=== PATIENT | male | born 1945 | race Caucasian/White ===

== ENCOUNTER 2023-04-20 12:05 | Emergency (ER) | payer MEDICARE, OTHER, SELFPAY ==
[2023-04-20] VITALS (23 sets, daily range): BP systolic 146–168; BP diastolic 86–102; PULSE 74–84; RESP 15–29; TEMP 36.6; O2SAT 88–99; BMI 30.1
--- NOTE | 2023-04-20 12:35 | XR_ITS ---
The [address] [address] Patient Name: IRENA BUSCH MRN: [id number] date: 1945 Sex: M Assigned Patient Location: ER Current Patient Location: ER Accession/Order Number: [id number] Exam Date: 04/20/2023 13:05 Report Date: 04/20/2023 13:32 At the request of: STACEY BEACH Procedure: XR chest 1V EXAM: XR chest 1V HISTORY: shortness of breath COMPARISON: None. TECHNIQUE: Chest X-ray AP, 1 view FINDINGS: Support devices: None. Lungs/pleura: No consolidation, effusion, or pneumothorax. Heart and mediastinum: Normal contours. Bones: No acute abnormality identified. XR/XR chest 1V Impression: No radiographic evidence of acute cardiopulmonary process. Electronically authenticated by: ARNULFO CORBETT Date: 04/20/2023 13:32
--- NOTE | 2023-04-20 12:35 | ECG_ITS ---
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
[2023-04-20 12:41] LABS: Basophils Absolute Auto 0.1 10^3/uL (0.0-0.1); Basophils Percent Auto 0.6 % (0.2-2.0); Eosinophils Absolute Auto 0.2 10^3/uL (0.0-0.7); Eosinophils Percent Auto 2.7 % (0.9-7.0); Hematocrit 36.3 % (42.0-54.0); Hemoglobin 11.3 g/dL (14.0-18.0); Immature Granulocytes Abs Auto 0.03 10^3/uL (0.00-0.03); Immature Granulocytes Pct Auto 0.4 % (0.0-0.5); Lymphocytes Percent Auto 11.6 % (20.5-60.0); Mean Corpuscular HGB Conc 31.1 g/dL (29.9-35.2); Mean Corpuscular Hemoglobin 29.9 pg (25.9-34.0); Mean Platelet Volume 9.7 fL (9.5-13.5); Monocytes Absolute Auto 0.6 10^3/uL (0.3-0.8); Monocytes Percent Auto 7.3 % (1.7-12.0); Neutrophils Absolute Auto 6.4 10^3/uL (1.4-6.5); Neutrophils Percent Auto 77.4 % (43.0-75.0); Platelet Count 248 10^3/uL (150-450); Red Blood Count 3.78 10^6/uL (4.70-6.10); Red Cell Distribution Width 14.4 % (11.0-15.0); White Blood Count 8.3 10^3/uL (4.0-11.0)
[2023-04-20 12:59] LABS: Anion Gap 10.8; BUN Creatinine Ratio 11.2; Calcium 9.3 mg/dL (8.5-10.1); Carbon Dioxide 27.4 mmol/L (21.0-32.0); Chloride 104 mmol/L (98-107); Estimated GFR (African America >60 (>=60); Estimated GFR (Non-African Ame 52 (>=60); Glucose 111 mg/dL (74-106); Potassium 4.2 mmol/L (3.5-5.1); Sodium 138 mmol/L (136-145); Troponin I High Sensitivity 21.9 pg/mL (4.0-76.1)
[2023-04-20 13:01] LABS: D Dimer 0.73 mg/L FEU (<=0.59)
[2023-04-20 13:19] LABS: Bilirubin Urine NEGATIVE (NEGATIVE); Blood Urine NEGATIVE (NEGATIVE); Clarity Urine CLEAR (CLEAR); Color Urine LT. YELLOW (YELLOW); Glucose Urine UA NEGATIVE (NEGATIVE); Ketones Urine NEGATIVE (NEGATIVE); Leukocyte Esterase Urine NEGATIVE (NEGATIVE); Nitrite Urine NEGATIVE (NEGATIVE); Protein Urine NEGATIVE (NEG/TRACE); Urobilinogen Urine 0.2 EU/dL (0.2-1.0)
[2023-04-20 13:20] LABS: Urine Microscopic Indicated NO
--- NOTE | 2023-04-20 13:53 | CT_ITS ---
The [address] [address] Patient Name: IRENA BUSCH MRN: [id number] date: 1945 Sex: M Assigned Patient Location: ER Current Patient Location: Accession/Order Number: [id number] Exam Date: 04/20/2023 14:00 Report Date: 04/20/2023 14:39 At the request of: ARTURO WEBB Procedure: CT angio chest CT angio chest, 04/20/2023 2:00 PM EST INDICATION: SOB, elevated d-dimer COMPARISON: No prior CT angiography of the chest available for comparison at the time of this dictation. TECHNIQUE: Axial images of the chest were obtained with administration of IV contrast. Multiplanar reformatted images were generated and reviewed as needed. Dose reduction techniques were achieved by using automated exposure control and/or adjustment of mA and/or kV according to patient size and/or use of iterative reconstruction technique. FINDINGS: Heart is upper limits of normal for size. No pericardial effusion. No aortic aneurysm or dissection. No filling defect within the pulmonary arteries. Calcified left hilar lymph nodes. Prominent mediastinal lymph nodes, the largest an AP node 1.4 cm short axis. No axillary lymphadenopathy. Diffuse bronchial wall thickening and interstitial prominence. Trace bilateral pleural effusions. No lobar consolidation. No pneumothorax. Subcentimeter hepatic hypodensities, too small to characterize. Calcified splenic granulomas. No acute fracture. Bilateral shoulder arthroplasty. Grade 1 anterolisthesis C7 on T1. CT/CT angio chest IMPRESSION: 1. No pulmonary embolism. 2. Mild pulmonary edema with trace bilateral pleural effusions. 3. Mediastinal lymphadenopathy. Electronically authenticated by: ITAILA RUSSELL Date: 04/20/2023 14:39
--- NOTE | 2023-04-20 13:54 | ED.SOB1 ---
Documented by User: Lore Trevino 04/20/23 16:14 HPI - SOB/Dyspnea General Chief Complaint: Shortness of Breath/Dyspnea Stated Complaint: SHORTNESS OF BREATH Time Seen by Provider: 04/20/23 12:36 Source: patient Mode of arrival: walk-in History of Present Illness HPI Narrative: 78 year old male presents to the ED for SOB, not feeling well. Onset was this morning. Denies fever, chills, cough, dizziness, AUGUSTINE. Denies CP, abd pain, back pain. Denies N/V/D. He has hx a-fib. He had the watchman procedure in May, and was taken off of Eliquis. He takes 81 mg asa daily. MD elicited complaint: shortness of breath, cough and chest pain Related Data Allergies Allergy/AdvReac Type Severity Reaction Status Date / Time No Known Drug Allergies Allergy Verified 04/20/23 12:14 Review of Systems ROS Constitutional Denies: fever or chills Ears, nose, mouth, and throat Denies: neck pain Cardiovascular Denies: chest pain or palpitations Respiratory Reports: shortness of breath; Denies: cough, wheezing or stridor Gastrointestinal Denies: abdominal pain, nausea, vomiting or diarrhea Musculoskeletal Denies: back pain or neck pain Integumentary/Breast Denies: rash Neurological Denies: headache, weakness in extremities, lack of coordination or dizziness Exam Constitutional Vital Signs, click to edit/add: Last Vital Signs Temp 98 F 04/20/23 12:09 Pulse 75 04/20/23 15:30 Resp 21 04/20/23 15:30 BP 168/91 H 04/20/23 15:30 Pulse Ox 96 04/20/23 15:20 O2 Del Method Room Air 04/20/23 12:09 Common normals: no apparent distress and oriented x3 General appearance: cooperative; not ill appearing Eye Common normals: conjunctivae normal and no scleral icterus Neck & C-Spine Common normals: supple Chest Common normals: inspection of chest normal Chest: symmetrical chest wall rise Respiratory Common normals: normal respiratory effort Effort & inspection: able to speak in complete sentences and symmetric chest movement Auscultation: clear to auscultation bilaterally Cardio Common normals: regular rate and regular rhythm Neuro Common normals: oriented x3 Sensorium/orientation: awake and alert Speech: speech normal Gait (neuro): normal gait Course Vital Signs Vital signs: Vital Signs Temperature 98 F 04/20/23 12:09 Pulse Rate 76 04/20/23 12:09 Respiratory Rate 18 04/20/23 12:09 Blood Pressure 154/102 H 04/20/23 12:09 Pulse Oximetry 99 04/20/23 12:09 Oxygen Delivery Method Room Air 04/20/23 12:09 Temperature 98 F 04/20/23 12:09 Pulse Rate 75 04/20/23 15:30 Respiratory Rate 21 04/20/23 15:30 Blood Pressure 168/91 H 04/20/23 15:30 Pulse Oximetry 96 04/20/23 15:20 Oxygen Delivery Method Room Air 04/20/23 12:09 MDM - SOB/Dyspnea MDM Narrative Medical decision making narrative: D-dimer was elevated. Imaging showed no pulmonary embolism; mild pulmonary edema with trace bilateral pleural effusions; mediastinal lymphadenopathy. Findings were discussed were discussed with the patient. He was given a copy of the CT report. He was advised by the physician to take his Lasix BID instead of daily for the next four days. Return precautions were discussed. Follow up with pcp and cardiology for a recheck, further evaluation and treatment. Medical Records Attestation: I reviewed the patient's medical records. Lab Data Attestation: I reviewed the patient's lab results. Labs: Lab Results 04/20/23 04/20/23 Range/Units 12:16 12:58 WBC 8.3 (4.0-11.0) 10^3/uL RBC 3.78 L (4.70-6.10) 10^6/uL Hgb 11.3 L (14.0-18.0) g/dL Hct 36.3 L (42.0-54.0) % MCV 96.0 H (80.0-94.0) fL MCH 29.9 (25.9-34.0) pg MCHC 31.1 (29.9-35.2) g/dL RDW 14.4 (11.0-15.0) % Plt Count 248 (150-450) 10^3/uL MPV 9.7 (9.5-13.5) fL Neut % (Auto) 77.4 H (43.0-75.0) % Lymph % (Auto) 11.6 L (20.5-60.0) % [place] % (Auto) 7.3 (1.7-12.0) % Eos % (Auto) 2.7 (0.9-7.0) % Baso % (Auto) 0.6 (0.2-2.0) % Neut # (Auto) 6.4 (1.4-6.5) 10^3/uL Lymph # (Auto) 1.0 L (1.2-3.8) 10^3/uL [place] # (Auto) 0.6 (0.3-0.8) 10^3/uL Eos # (Auto) 0.2 (0.0-0.7) 10^3/uL Baso # (Auto) 0.1 (0.0-0.1) 10^3/uL Abs Immat Gran (auto) 0.03 (0.00-0.03) 10^3/uL Imm/Tot Granulo (auto) 0.4 (0.0-0.5) % D-Dimer 0.73 H* (<=0.59) mg/L FEU Sodium 138 (136-145) mmol/L Potassium 4.2 (3.5-5.1) mmol/L Chloride 104 (98-107) mmol/L Carbon Dioxide 27.4 (21.0-32.0) mmol/L Anion Gap 10.8 BUN 15.0 (7.0-18.0) mg/dL Creatinine 1.34 H (0.70-1.30) mg/dL Est GFR ( Amer) >60 (>=60) Est GFR (Non-Af Amer) 52 L (>=60) BUN/Creatinine Ratio 11.2 Glucose 111 H (74-106) mg/dL Calcium 9.3 (8.5-10.1) mg/dL Troponin I High Sens 21.9 (4.0-76.1) pg/mL NT-Pro-B Natriuret Pep 831.0 (<=1800.0) pg/mL Urine Color Lt. yellow (YELLOW) Urine Clarity Clear (CLEAR) Urine pH 7.0 (5.0-9.0) Ur Specific [place] 1.010 (1.005-1.025) Urine Protein Negative (NEG/TRACE) mg/dL Urine Glucose (UA) Negative (NEGATIVE) mg/dL Urine Ketones Negative (NEGATIVE) mg/dL Urine Occult Blood Negative (NEGATIVE) Urine Nitrite Negative (NEGATIVE) Urine Bilirubin Negative (NEGATIVE) Urine Urobilinogen 0.2 (0.2-1.0) EU/dL Ur Leukocyte Esterase Negative (NEGATIVE) Imaging Data Chest x-ray: Attestation: I have reviewed the pertinent imaging results. Radiologist's impression: At the request of: STACEY COREAS Procedure: XR chest 1V EXAM: XR chest 1V HISTORY: shortness of breath COMPARISON: None. TECHNIQUE: Chest X-ray AP, 1 view FINDINGS: Support devices: None. Lungs/pleura: No consolidation, effusion, or pneumothorax. Heart and mediastinum: Normal contours. Bones: No acute abnormality identified. XR/XR chest 1V Impression: No radiographic evidence of acute cardiopulmonary process. Electronically authenticated by: ARNULFO CORBETT Date: 04/20/2023 13:32 CTA chest: Attestation: I have reviewed the pertinent imaging results. Radiologist's impression: Procedure: CT angio chest CT angio chest, 04/20/2023 2:00 PM EST INDICATION: SOB, elevated d-dimer COMPARISON: No prior CT angiography of the chest available for comparison at the time of this dictation. TECHNIQUE: Axial images of the chest were obtained with administration of IV contrast. Multiplanar reformatted images were generated and reviewed as needed. Dose reduction techniques were achieved by using automated exposure control and/or adjustment of mA and/or kV according to patient size and/or use of iterative reconstruction technique. FINDINGS: Heart is upper limits of normal for size. No pericardial effusion. No aortic aneurysm or dissection. No filling defect within the pulmonary arteries. Calcified left hilar lymph nodes. Prominent mediastinal lymph nodes, the largest an AP node 1.4 cm short axis. No axillary lymphadenopathy. Diffuse bronchial wall thickening and interstitial prominence. Trace bilateral pleural effusions. No lobar consolidation. No pneumothorax. Subcentimeter hepatic hypodensities, too small to characterize. Calcified splenic granulomas. No acute fracture. Bilateral shoulder arthroplasty. Grade 1 anterolisthesis C7 on T1. CT/CT angio chest IMPRESSION: 1. No pulmonary embolism. 2. Mild pulmonary edema with trace bilateral pleural effusions. 3. Mediastinal lymphadenopathy. Electronically authenticated by: ITALIA RUSSELL Date: 04/20/2023 14:39 ECG Data Attestation: ?I have reviewed the pertinent ECG results. (EKG was reviewed by the attending physician. It showed sinus rhythm at a rate of 77 with occ supraventricular premature complexes. ) Interpretation: Measurements Intervals [place] Rate: 80 P: 57 MO: 212 QRS: -16 QRSD: 82 T: 57 QT: 406 QTc: 442 Interpretive Statements 1100 Sinus rhythm 1470 with occasional supraventricular premature complexes 2231 First degree AV block 3114 Cannot rule out anterior myocardial infarction, age undetermined 8102 Low QRS voltage in chest leads 9150 abnormal ECG No previous ECG available for comparison Discharge Plan Discharge Chief Complaint: Shortness of Breath/Dyspnea Clinical Impression: Dyspnea Patient Disposition: Home, Self-Care Time of Disposition Decision: 16:04 Condition: Good Mode of Transportation: Private Vehicle Instructions: Dyspnea (ED) Additional Instructions: Take Lasix twice daily for four days. Follow up with your family care provider and billing adjudicator for a recheck, further evaluation and treatment. Return to the ER for new or worsening symptoms. Stand Alone Forms: Portal Instructions Referrals: Physician,Non-Staff, [Primary Care Provider] - As soon as possible Discharge Date/Time: 04/20/23 16:17 Documented by User: Stacey Coreas MD 04/20/23 18:40 HPI - SOB/Dyspnea General Chief Complaint: Shortness of Breath/Dyspnea Stated Complaint: SHORTNESS OF BREATH Time Seen by Provider: 04/20/23 12:36 Related Data Allergies Allergy/AdvReac Type Severity Reaction Status Date / Time No Known Drug Allergies Allergy Verified 04/20/23 12:14 Exam Constitutional Vital Signs, click to edit/add: Last Vital Signs Temp 98 F 04/20/23 12:09 Pulse 75 04/20/23 15:30 Resp 21 04/20/23 15:30 BP 168/91 H 04/20/23 15:30 Pulse Ox 96 04/20/23 15:20 O2 Del Method Room Air 04/20/23 12:09 Course Vital Signs Vital signs: Vital Signs Temperature 98 F 04/20/23 12:09 Pulse Rate 76 04/20/23 12:09 Respiratory Rate 18 04/20/23 12:09 Blood Pressure 154/102 H 04/20/23 12:09 Pulse Oximetry 99 04/20/23 12:09 Oxygen Delivery Method Room Air 04/20/23 12:09 Temperature 98 F 04/20/23 12:09 Pulse Rate 75 04/20/23 15:30 Respiratory Rate 21 04/20/23 15:30 Blood Pressure 168/91 H 04/20/23 15:30 Pulse Oximetry 96 04/20/23 15:20 Oxygen Delivery Method Room Air 04/20/23 12:09 MDM - SOB/Dyspnea MDM Narrative Medical decision making narrative: D-dimer was elevated. Imaging showed no pulmonary embolism; mild pulmonary edema with trace bilateral pleural effusions; mediastinal lymphadenopathy. Findings were discussed were discussed with the patient. He was given a copy of the CT report. He was advised by the physician to take his Lasix BID instead of daily for the next four days. Return precautions were discussed. Follow up with pcp and cardiology for a recheck, further evaluation and treatment. I, Dr Coreas, have reviewed the above progress note and course of action in the ER; agree with the above. I have personally seen and evaluated this patient, gone over history and physical, and discussed disposition and treatment plan with the patient. 15 minutes was spent at bedside Speaking with the patient at discharge by Dr. Coreas. Patient will double his dose of Lasix for the next 4 days. Education on pulmonary edema versus pleural effusions was done at bedside. Patient has a history of melanoma to the left lateral chest wall. Patient's mediastinal lymphadenopathy was discussed at length. Patient is wearing in 3-6 months and is a follow-up with either repeat CT scanning of the chest versus PET scan. 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 Patient will follow-up with his billing adjudicator as well. Patient will also follow up with PCP and further recommendations. Patient says that his insurance is changing May 02 and we discussed this as well. Patient has a son is a [employer] nurse, works in safety currently in [employer]. His [id number] is a nurse practitioner. He will discuss the CT report with them as well, but was very thankful for the lengthy amount of time that we broke down his CT report findings and discussed each impression at length along with the body of the report. Patient is given a copy of his CT scan to take home. Patient will call his billing adjudicator tomorrow and is PCP to make a additional follow-up appointment. Patient was very thankful for time spent at discharge. Lab Data Labs: Lab Results 04/20/23 04/20/23 Range/Units 12:16 12:58 WBC 8.3 (4.0-11.0) 10^3/uL RBC 3.78 L (4.70-6.10) 10^6/uL Hgb 11.3 L (14.0-18.0) g/dL Hct 36.3 L (42.0-54.0) % MCV 96.0 H (80.0-94.0) fL MCH 29.9 (25.9-34.0) pg MCHC 31.1 (29.9-35.2) g/dL RDW 14.4 (11.0-15.0) % Plt Count 248 (150-450) 10^3/uL MPV 9.7 (9.5-13.5) fL Neut % (Auto) 77.4 H (43.0-75.0) % Lymph % (Auto) 11.6 L (20.5-60.0) % [place] % (Auto) 7.3 (1.7-12.0) % Eos % (Auto) 2.7 (0.9-7.0) % Baso % (Auto) 0.6 (0.2-2.0) % Neut # (Auto) 6.4 (1.4-6.5) 10^3/uL Lymph # (Auto) 1.0 L (1.2-3.8) 10^3/uL [place] # (Auto) 0.6 (0.3-0.8) 10^3/uL Eos # (Auto) 0.2 (0.0-0.7) 10^3/uL Baso # (Auto) 0.1 (0.0-0.1) 10^3/uL Abs Immat Gran (auto) 0.03 (0.00-0.03) 10^3/uL Imm/Tot Granulo (auto) 0.4 (0.0-0.5) % D-Dimer 0.73 H* (<=0.59) mg/L FEU Sodium 138 (136-145) mmol/L Potassium 4.2 (3.5-5.1) mmol/L Chloride 104 (98-107) mmol/L Carbon Dioxide 27.4 (21.0-32.0) mmol/L Anion Gap 10.8 BUN 15.0 (7.0-18.0) mg/dL Creatinine 1.34 H (0.70-1.30) mg/dL Est GFR ( Amer) >60 (>=60) Est GFR (Non-Af Amer) 52 L (>=60) BUN/Creatinine Ratio 11.2 Glucose 111 H (74-106) mg/dL Calcium 9.3 (8.5-10.1) mg/dL Troponin I High Sens 21.9 (4.0-76.1) pg/mL NT-Pro-B Natriuret Pep 831.0 (<=1800.0) pg/mL Urine Color Lt. yellow (YELLOW) Urine Clarity Clear (CLEAR) Urine pH 7.0 (5.0-9.0) Ur Specific [place] 1.010 (1.005-1.025) Urine Protein Negative (NEG/TRACE) mg/dL Urine Glucose (UA) Negative (NEGATIVE) mg/dL Urine Ketones Negative (NEGATIVE) mg/dL Urine Occult Blood Negative (NEGATIVE) Urine Nitrite Negative (NEGATIVE) Urine Bilirubin Negative (NEGATIVE) Urine Urobilinogen 0.2 (0.2-1.0) EU/dL Ur Leukocyte Esterase Negative (NEGATIVE) Discharge Plan Discharge Chief Complaint: Shortness of Breath/Dyspnea Clinical Impression: Dyspnea Patient Disposition: Home, Self-Care Time of Disposition Decision: 16:04 Condition: Good Mode of Transportation: Private Vehicle Instructions: Dyspnea (ED) Additional Instructions: Take Lasix twice daily for four days. Follow up with your family care provider and billing adjudicator for a recheck, further evaluation and treatment. Return to the ER for new or worsening symptoms. Stand Alone Forms: Portal Instructions Referrals: Physician,Non-Staff, MD [Primary Care Provider] - As soon as possible Discharge Date/Time: 04/20/23 16:17
== END 2023-04-20 16:17 | disposition home or self-care (01) ==
PROVIDERS: Emergency Provider Emergency Medicine
DX: R06.00 Dyspnea, unspecified (principal); Z79.82 Long term (current) use of aspirin; Z86.79 Personal history of other diseases of the circulatory system
CPT/HCPCS: 36415; 71045; 71275; 80048; 81003; 83880; 84484; 85025; 85378; 93005; 99285; Q9967

== ENCOUNTER 2023-06-28 12:59 | Outpatient (RCR) | payer OTHER, SELFPAY | END 2023-08-27 11:12 | disposition home or self-care (01) | LOC: PT 12:59 | DX: M54.16 Radiculopathy, lumbar region (principal); M48.061 Spinal stenosis, lumbar region without neurogenic claudication; M43.16 Spondylolisthesis, lumbar region | CPT/HCPCS: 97110; 97112; 97162; 97530 ==

== ENCOUNTER 2023-08-30 15:53 | Emergency (ER) | payer OTHER, SELFPAY ==
[2023-08-30 15:58] VITALS: BP 128/73; PULSE 84; TEMP 36.9; O2SAT 98; BMI 30.1
--- NOTE | 2023-08-30 16:12 | ED.GENADUL1 ---
HPI HPI - General Adult General Chief complaint: Extremity Injury, Upper Stated complaint: Upper Extremity Pain Time Seen by Provider: 08/30/23 16:04 Source: patient Mode of arrival: walk-in Limitations: no limitations History of Present Illness HPI narrative: 78 year old male presents to the ED for left hand/wrist pain, swelling. Onset was upon waking this morning. Denies fever, chills, injury, weakness, N/T. He has hx gout. Related Data Home Medications ?Medication ?Instructions ?Recorded ?Confirmed allopurinol 100 mg tablet 100 mg PO DAILY 08/30/23 08/30/23 atenolol 50 mg tablet 50 mg PO DAILY 08/30/23 08/30/23 atorvastatin 40 mg tablet 40 mg PO DAILY 08/30/23 08/30/23 duloxetine 60 mg capsule,delayed 60 mg PO DAILY 08/30/23 08/30/23 release fenofibrate 160 mg tablet 160 mg PO DAILY 08/30/23 08/30/23 furosemide 20 mg tablet 20 mg PO DAILY 08/30/23 08/30/23 montelukast 10 mg tablet 10 mg PO DAILY 08/30/23 08/30/23 ropinirole 1 mg tablet 2 mg PO QPM 08/30/23 08/30/23 tolterodine 4 mg capsule,extended 4 mg PO DAILY 08/30/23 08/30/23 release 24 hr Previous Rx's ?Medication ?Instructions ?Recorded cephalexin 500 mg capsule 500 mg PO Q6H 10 days #40 caps 08/30/23 hydrocodone 5 mg-acetaminophen 325 1 tab PO Q8H PRN pain 4 days #12 08/30/23 mg tablet tabs prednisone 20 mg tablet 40 mg (2 x 20 mg) PO DAILY 5 days 08/30/23 #10 tabs Allergies Allergy/AdvReac Type Severity Reaction Status Date / Time No Known Drug Allergies Allergy Verified 08/30/23 16:03 Opioid HPI Opioid Management Most Recent Opioid Data: Last Pain Scale 8 08/30/23 16:42 Last ED Pain Assessment 08/30/23 16:42 Review of Systems ROS Constitutional Denies: fever or chills Ears, nose, mouth, and throat Denies: neck pain Cardiovascular Denies: chest pain Respiratory Denies: shortness of breath Musculoskeletal Reports: extremity pain and extremity swelling; Denies: neck pain or muscle weakness Integumentary/Breast Reports: redness and skin tenderness; Denies: rash or itching Exam Constitutional Vital Signs, click to edit/add: Last Vital Signs Temp 98.5 F 08/30/23 15:58 Pulse 85 08/30/23 17:19 Resp 16 08/30/23 17:19 BP 137/65 08/30/23 17:19 Pulse Ox 99 08/30/23 17:19 O2 Del Method Room Air 08/30/23 15:58 Common normals: no apparent distress and oriented x3 Eye Common normals: conjunctivae normal and no scleral icterus Neck & C-Spine Common normals: supple Chest Chest: symmetrical chest wall rise Respiratory Common normals: normal respiratory effort and no use of accessory muscles Effort & inspection: able to speak in complete sentences Cardio Rate: regular rate Peripheral pulses: radial pulses present Extremity Other: Increased warmth, swelling, tenderness to left dorsal hand and left wrist. Full ROM to left hand and wrist. Distal sensation intact. Mild erythema noted to wrist area. No wounds noted. Cap refill <3 sec. Course Vital Signs Vital signs: Vital Signs Temperature 98.5 F 08/30/23 15:58 Pulse Rate 84 08/30/23 15:58 Respiratory Rate 18 08/30/23 15:58 Blood Pressure 128/73 08/30/23 15:58 Pulse Oximetry 98 08/30/23 15:58 Oxygen Delivery Method Room Air 08/30/23 15:58 Temperature 98.5 F 08/30/23 15:58 Pulse Rate 85 08/30/23 17:19 Respiratory Rate 16 08/30/23 17:19 Blood Pressure 137/65 08/30/23 17:19 Pulse Oximetry 99 08/30/23 17:19 Oxygen Delivery Method Room Air 08/30/23 15:58 Medical Decision Making MDM Narrative Medical decision making narrative: WBC count was 8.3. Sed rate was 98, uric acid 7.7. He was given medication here with some improvement. OARRS was reviewed. Prescriptions were provided for norco, keflex, and prednisone. Follow up with pcp for a recheck, further evaluation and treatment. Return precautions were discussed. Differential Diagnosis Differential Diagnosis: Wrist pain, wrist sprain, gout, cellulitis. Medical Records Medical records reviewed: Yes I reviewed the patient's medical records Lab Data Lab results reviewed: Yes I reviewed the patient's lab results Labs: Lab Results 08/30/23 Range/Units 16:25 WBC 8.3 (4.0-11.0) 10^3/uL RBC 3.97 L (4.70-6.10) 10^6/uL Hgb 11.8 L (14.0-18.0) g/dL Hct 37.9 L (42.0-54.0) % MCV 95.5 H (80.0-94.0) fL MCH 29.7 (25.9-34.0) pg MCHC 31.1 (29.9-35.2) g/dL RDW 14.3 (11.0-15.0) % Plt Count 265 (150-450) 10^3/uL MPV 9.3 L (9.5-13.5) fL Neut % (Auto) 76.1 H (43.0-75.0) % Lymph % (Auto) 10.0 L (20.5-60.0) % [place] % (Auto) 12.3 H (1.7-12.0) % Eos % (Auto) 0.7 L (0.9-7.0) % Baso % (Auto) 0.5 (0.2-2.0) % Neut # (Auto) 6.3 (1.4-6.5) 10^3/uL Lymph # (Auto) 0.8 L (1.2-3.8) 10^3/uL [place] # (Auto) 1.0 H (0.3-0.8) 10^3/uL Eos # (Auto) 0.1 (0.0-0.7) 10^3/uL Baso # (Auto) 0.0 (0.0-0.1) 10^3/uL Abs Immat Gran (auto) 0.03 (0.00-0.03) 10^3/uL Imm/Tot Granulo (auto) 0.4 (0.0-0.5) % ESR 98 H (<=20) mm/hr Sodium 138 (136-145) mmol/L Potassium 3.7 (3.5-5.1) mmol/L Chloride 101 (98-107) mmol/L Carbon Dioxide 28.0 (21.0-32.0) mmol/L Anion Gap 12.7 BUN 17.0 (7.0-18.0) mg/dL Creatinine 1.09 (0.70-1.30) mg/dL Est GFR ( Amer) >60 (>=60) Est GFR (Non-Af Amer) >60 (>=60) BUN/Creatinine Ratio 15.6 Glucose 91 (74-106) mg/dL Uric Acid 7.7 H (3.5-7.2) mg/dL Calcium 9.7 (8.5-10.1) mg/dL Discharge Plan Discharge Stand Alone Forms: Portal Instructions Chief Complaint: Extremity Injury, Upper Clinical Impression: Left wrist pain Patient Disposition: Home, Self-Care Time of Disposition Decision: 17:17 Condition: Good Mode of Transportation: Private Vehicle Prescriptions / Home Meds: New hydrocodone-acetaminophen 5-325 mg tablet 1 tab PO Q8H PRN (Reason: pain) 4 Days Qty: 12 0RF Rx Instructions: prn 4 days prednisone 20 mg tablet 40 mg PO DAILY 5 Days Qty: 10 0RF cephalexin 500 mg capsule 500 mg PO Q6H 10 Days Qty: 40 0RF No Action allopurinol 100 mg tablet 100 mg PO DAILY atenolol 50 mg tablet 50 mg PO DAILY atorvastatin 40 mg tablet 40 mg PO DAILY duloxetine 60 mg capsule,delayed release(DR/EC) 60 mg PO DAILY fenofibrate 160 mg tablet 160 mg PO DAILY furosemide 20 mg tablet 20 mg PO DAILY montelukast 10 mg tablet 10 mg PO DAILY ropinirole 1 mg tablet 2 mg PO QPM tolterodine 4 mg capsule,extended release 24hr 4 mg PO DAILY Print Language: Sinhala Instructions: Cellulitis (ED), Gout (ED), Arthralgia (ED) Additional Instructions: Return to the ER if your condition worsens or you do not see improvement over the next 48 hours. Referrals: Scarlett Gaviria NP [Primary Care Provider] - 1 week
[2023-08-30] MEDS: COLCHICINE 0.6 MG TABLET 1.19999999999999996 MG PO (16:23)
[2023-08-30] MEDS: PREDNISONE 20 MG TABLET 40 MG PO (16:23)
[2023-08-30 16:32] LABS: Basophils Percent Auto 0.5 % (0.2-2.0); Eosinophils Absolute Auto 0.1 10^3/uL (0.0-0.7); Eosinophils Percent Auto 0.7 % (0.9-7.0); Hematocrit 37.9 % (42.0-54.0); Hemoglobin 11.8 g/dL (14.0-18.0); Immature Granulocytes Abs Auto 0.03 10^3/uL (0.00-0.03); Immature Granulocytes Pct Auto 0.4 % (0.0-0.5); Lymphocytes Absolute Auto 0.8 10^3/uL (1.2-3.8); Mean Corpuscular HGB Conc 31.1 g/dL (29.9-35.2); Mean Corpuscular Hemoglobin 29.7 pg (25.9-34.0); Mean Corpuscular Volume 95.5 fL (80.0-94.0); Mean Platelet Volume 9.3 fL (9.5-13.5); Monocytes Percent Auto 12.3 % (1.7-12.0); Neutrophils Absolute Auto 6.3 10^3/uL (1.4-6.5); Neutrophils Percent Auto 76.1 % (43.0-75.0); Platelet Count 265 10^3/uL (150-450); Red Blood Count 3.97 10^6/uL (4.70-6.10); Red Cell Distribution Width 14.3 % (11.0-15.0); White Blood Count 8.3 10^3/uL (4.0-11.0)
[2023-08-30 16:37] LABS: Erythrocyte Sedimentation Rate 98 mm/hr (<=20)
[2023-08-30 16:42] LABS: Anion Gap 12.7; BUN Creatinine Ratio 15.6; Calcium 9.7 mg/dL (8.5-10.1); Chloride 101 mmol/L (98-107); Estimated GFR (African America >60 (>=60); Estimated GFR (Non-African Ame >60 (>=60); Glucose 91 mg/dL (74-106); Potassium 3.7 mmol/L (3.5-5.1); Sodium 138 mmol/L (136-145); Uric Acid 7.7 mg/dL (3.5-7.2)
[2023-08-30 17:19] VITALS: BP 137/65; PULSE 85; O2SAT 99
== END 2023-08-30 17:34 | disposition home or self-care (01) ==
PROVIDERS: Nurse Practitioner Family; Emergency Provider Emergency Medicine; PCP Nurse Practitioner Family
DX: M25.532 Pain in left wrist (principal); Z79.899 Other long term (current) drug therapy
CPT/HCPCS: 36415; 80048; 84550; 85025; 85652; 99283

== ENCOUNTER 2024-02-09 08:34 | Outpatient (OUT) | payer OTHER, SELFPAY ==
--- OUTSIDE RECORDS SUMMARY | 2024-02-09 08:49 | XMS_ITS | CCD ---
Author Organization [facility] Care Team Providers Care Family Resource Coordinator Name Role Phone KB TORRES (SAI) Unavailable Unavailable LAURA, YFN H Unavailable Unavailable LAURA, YFN H Unavailable Unavailable LAURA, YFN H Unavailable Unavailable LAURA, YFN H Unavailable Unavailable LAURA, YFN H Unavailable Unavailable LAURA, YFN H Unavailable Unavailable Scarlett Gaviria Primary Care Physician [phone] Zahira Hogan Unavailable Unavailable Jacqueline Alvarado Unavailable Unavailable Kristina Rodriguez Unavailable Unavailable Scarlett Gaviria Primary Care Provider [phone] Nolberto Thomas Unavailable [phone] Scarlett Gaviria Primary Care Provider Martha Nolberto Vagesh Unavailable Scarlett Gaviria Primary Care Provider [phone] Martha Nolberto Vagesh Unavailable Miriam Maravilla MD, Sabdiandra Unavailable DR DAVID KING Admitting Unavailable DR DAVID KING Attending Unavailable DR DAVID KING Consulting Unavailable ANA CRISTINA, DR STOKES Primary Care Unavailable BOUBACAR BATES Consulting Unavailable DR MATTHEW ALEXANDRE Procedure Practitioner Rosita vailable ANGE, AVILA H Admitting Unavailable ANGE, AVILA H Attending Unavailable DR MATTHEW ALEXANDRE Consulting Unavailfadi DE LA PAZ, DR STOKES Primary Care Unavailable DR TRACE SILVA Consulting Unavailable DR TRACE SILVA Procedure Practitioner Unavail able TRACEY GUDINO Consulting Unavailable Esvin Esteves Consulting Unavailable ANGE, AVILA H Consulting Unavailable KADEN FREITAS Consulting Unavailable SISTER, TIM Consulting Unavailable SHANNON EMERY Consulting Unavailable ANA CRISTINA, DR STOKES Primary Care Unavailable DR BOUBACAR CORDERO Consulting Unavailable ANTONY CORDERO Admitting Unavailable TAMI ., ANTONY Attending Unavailable TAMI ., ANTONY Consulting Unavailable PAY, DR IBARRA Admitting Unavailable PAY, DR IBARRA Attending Unavailable MICHAEL CHAVEZ Consulting Unavailable MISC, DR STOKES Primary Care Unavailable MATTHEW ANN Consulting Unavailable MICHAEL CHAVEZ Consulting Unavailable CHRISTINE HECK Admitting Unavailable CHRISTINE HECK Attending Unavailable MISC, DR STOKES Primary Care Unavailable CHRISTINE HECK Consulting Unavailable KB SMALLWOOD Consulting Unavailable PASCUAL GODINEZ Consulting Unavailable GRETCHEN, PASCUAL Admitting Unavailable PASCUAL GODINEZ Attending Unavailable MISC, DR STOKES Primary Care Unavailable SAM CHAN Consulting Unavailable MICHAEL SIMMS Referring Unavailable GAVIRIA, SCARLETT L Primary Care Unavailable Nolberto Thomas Unavailable Miriam Maravilla MD, Flory Unavailable Everette SLIP COVER MAKERScarlett Unavailable Unallocated, Noms Provider Primary Care Provider Lamberto Gaviriaca Nathaniel Primary Care Provider [phone] LY Esposito-Sheron Downs Attending Provider Yareli Esposito Attending Unavailable Yareli Esposito Admitting Unavailable Gaviria Scarlett L Primary Care Unavailable Everette Scarlett L Primary Care Provider [phone] Gaviria Scarlett L Admitting Unavailable Gaviria, Scarlett L Attending Unavailable Gaviria, Scarlett L Referring Unavailable Nghia ROBERSON Attending Unavailable Nghia ROBERSON Attending Unavailable Zuhair Beatty Attending Unavaila ble Nghia ROBERSON P Attending Unavailable COOKNghia P Attending Unavailable Nghia ROBERSON P Admitting Unavailable Nghia ROBERSON P Attending Unavailable Adamowicz, Jevon Attending Unavailable Adamowicz, Jevon Admitting Unavailable COOK, Nghia P Attending Unavailable COOK, Nghia P Admitting Unavailable Adamowicz, Jevon Attending Unavailable Adamowicz, Jevon Admitting Unavailable Adamowicz, Jevon Attending Unavailable Adamowicz, Jevon Admitting Unavailable Adamowicz, Jevon Attending Unavailable Adamowicz, Jevon Attending Unavailable Gaviria, Scarlett L Admitting Unavailable Gaviria, Scarlett L Attending Unavailable Gaviria, Scarlett L Attending Unavailable Gaviria, Scarlett L Referring Unavailable Gaviria, Scarlett L Admitting Unavailable SIMMS, MICHAEL Referring Unavailable GAVIRIA, SCARLETT L Primary Care Unavailable GAVIRIA, SCARLETT L Primary Care Unavailable ALPA RAM Attending Unavailable ALPA RAM Admitting Unavailable ALPA RAM Referring Unavailable SIMMS, MICHAEL Attending Unavailable GAVIRIA, SCARLETT L Primary Care Unavailable MUNTASER, ASMA Referring Unavailable GAVIRIA, SCARLETT L Primary Care Unavailable ALPA RAM Attending Unavailable ALPA RAM Referring Unavailable GAVIRIA, SCARLETT L Primary Care Unavailable WAZNI, OUSSAMA M Referring Unavailable GAVIRIA, SCARLETT L Primary Care Unavailable ANGELI KIMBALL Attending Unavailable GAVIRIA, SCARLETT L Primary Care Unavailable ALPA RAM Attending Unavailable ALPA RAM Referring Unavailable GAVIRIA, SCARLETT L Primary Care Unavailable ALPA RAM Referring Unavailable GAVIRIA, SCARLETT L Primary Care Unavailable SIMMS, MICHAEL Referring Unavailable GAVIRIA, SCARLETT L Primary Care Unavailable GAVIRIA, SCARLETT L Primary Care Unavailable WAZNI, OUSSAMA M Referring Unavailable WAZNI, OUSSAMA M Attending Unavailable GAVIRIA, SCARLETT L Primary Care Unavailable WAZNI, OUSSAMA M Referring Unavailable ALPA RAM Attending Unavailable ALPA RAM Referring Unavailable GAVIRIA, SCARLETT L Primary Care Unavailable ODALYS ROSA Attending Unavailable GAVIRIA, SCARLETT L Primary Care Unavailable SIMMS, MICHAEL Referring Unavailable GAVIRIA, SCARLETT L Primary Care Unavailable SIMMS, MICHAEL Referring Unavailable GAVIRIA, SCARLETT L Primary Care Unavailable SIMMS, MICHAEL Referring Unavailable GAVIRIA, SCARLETT L Primary Care Unavailable SELF Referring Unavailable ALPA RAM Attending Unavailable GAVIRIA, SCARLETT L Primary Care Unavailable ODALYS ROSA Referring Unavailable GAVIRIA, SCARLETT L Primary Care Unavailable GAVIRIA, SCARLETT L Primary Care Unavailable WAZNI, OUSSAMA M Referring Unavailable ALPA RAM Attending Unavailable ALPA RAM Admitting Unavailable ALPA RAM Referring Unavailable GAVIRIA, SCARLETT L Primary Care Unavailable Nghia ROBERSON Attending Unavailable Gaviria, Scarlett L Admitting Unavailable Gaviria, Scarlett L Attending Unavailable Nghia ROBERSON Attending Unavailable Nghia ROBERSON Admitting Unavailable Unallocated , Noms Provider Primary Care Provi shaji HARIS SUTTON Attending Unavailable PETITTI, KONRAD A Attending Unavailable HARIS SUTTON Attending Unavailable HARIS SUTTON Attending Unavailable HARIS SUTTON Attending Unavailable CLARE MAGUIRE Referring Unavailable CLARE MAGUIRE Attending Unavailable CLARE MAGUIRE Referring Unavailable HARIS SUTTON Attending Unavailable ADILENE LOZANO Attending Unavailable GABRIELOLIMPIA SANDERS Referring Unavailable GABRIEL, ABDUL Attending Unavailable Unallocated MD, Noms Provider Primary Care Provi shaji Allergies Allergy Classification Reported Allergen(s) Allergy Type Date of Onset Reaction(s) Facility (1 source) Aspirin Drug Allergy 07-18-2019 [facility] (1 source) Ibuprofen Drug Allergy 07-18-2019 [facility] Medications Current Medications Medication Drug Class(es) Dates Sig (Normalized) Sig (Original) 8 hr acetaminophen 650 mg extended release oral tablet (20 sources) Start: 06-20-2023 acetaminophen 650 mg CR tablet Every 12 hours 06/20/2023 Active Comment on above: Every 12 hours 200 actuat albuterol 0.09 mg/actuat dry powder inhaler (20 sources) beta2-Adrenergic Agonist Start: 06-20-2023 take 90 ug by inhalation every four to six hours Albuterol Sulfate (Proair Respiclick) 90 mcg/actuation aerosol powdr breath activated Active 1 INH INHALATION EVERY 4-6 HOURS June 20, 2023 12:00am Start: 01-11-2017 take 1 puff(s) by in halation every six hours Albuterol Sulfate (Proair Hfa) 90 mcg/actuation Hfa Aerosol Inhaler Active 2 PUFF INHALATION Q6H January 10, 2017 11:00pm Start: 03-14-2012 take 2 puff(s) by in halation every six hours as needed albuterol HFA (PROAIR HFA) 90 mcg/actuation inhaler Inhale 2 Puffs as instructed every 6 hours as needed. 1 Inhaler 0 03/14/2012 Active End: 04-13-2022 albuterol sulfate (PROAIR RESPICLICK) 90 mcg/actuation aepb ProAir RespiClick 90 mcg/actuation breath activated 0 04/13/2022 Discontinued Comment on above: Inhale 2 Puffs as in structed every 6 hours as needed. ProAir RespiClick 90 mcg/actuation breath activated allopurinol 100 mg oral tablet (20 sources) Xanthine Oxidase Inhibitor Start: 9 take 1 tablet by mouth once daily allopurinol (ZYLOPRIM) 100 mg tablet Take 100 mg by mouth once daily. 5 05/17/2018 Active Comment on above: Take 100 mg by mouth once daily. Eliquis (20 sources) Factor Xa Inhibitor Start: 3 Eliquis Refills(s) 0 Start Date: 07/15/22 Status: Ordered Start: 11-10-2015 End: 08-31-2023 take 1 tablet by mouth twice daily Apixaban (Eliquis) 5 mg tablet Discontinued 5 MG PO Twice daily January 10, 2017 11:00pm June 20, 2023 2:11pm Comment on above: Take 1 tablet by margie th twice daily. {1 (Ascorbic Acid 7540 MG / POLYETHYLENE GLYCOL 3350 81776 MG / Potassium Chloride 1200 MG / Sodium Ascorbate 27964 MG / Sodium Chloride 3200 MG Powder for Oral Solution) / 1 (POLYETHYLENE GLYCOL 3350 607252 MG / Potassium Chloride 1000 MG / Sodium Chlori (1 source) Osmotic Laxative, Vitamin C Start: 07-16-19 22 take 1 dose by mouth once Plenvu oral powder for reconstitution See Instructions, 1 EA, Refill(s) 0, samples given to patient (Rx), Per physician's instructions. Prior to colonoscopy. Ordered as instructed by Dr. Bolaños. Start Date: 07/15/21 Status: Ordered aspirin 81 mg chewable tablet (20 sources) Platelet Aggregation Inhibitor, Nonsteroidal Anti-inflammatory Drug Start: 06-20-19 24 take 81 mg by mouth once daily Aspirin Active 81 MG PO Daily June 20, 2023 12:00am Start: 07-15-2022 aspirin Refill s(s) 0 Start Date: 07/15/22 Status: Ordered Start: 05-19-2022 End: 11-15-2022 take 1 tablet by mouth in the morning aspirin 81 MG EC tablet Take 81 mg by mouth in the morning. 05/19/2022 Active Comment on above: Take 1 tablet by margie th once daily. atenolol 50 mg oral tablet (20 sources) beta-Adrenergic Waylon Start: 0 End: 4 take 1 tablet by mouth once daily atenolol (TENORMIN) 50 mg tablet Indications: HTN (hypertension), benign Take 1 tablet by mouth once daily. 90 tablet 3 11/09/2023 Active Comment on above: Take 1 tablet by margie th once daily. atorvastatin 40 mg oral tablet (20 sources) HMG-CoA Reductase Inhibitor Start: End: take 1 tablet by mouth once daily atorvastatin (LIPITOR) 40 mg tablet Indications: Pain of both shoulder joints , Rotator cuff tear arthropathy of both shoulders take 1 tablet by mouth once daily 90 tablet 3 08/01/2023 Active Start: 01-11-2017 take 10 mg by mouth once daily at bedtime Atorvastatin Active 10 MG PO Daily at bedtime January 10, 2017 11:00pm Comment on above: TAKE 1 TABLET BY MARGIE TH ONCE DAILY Take 1 tablet by margie th once daily. 60 actuat budesonide 0.16 mg/actuat / formoterol fumarate 0.0045 mg/actuat metered dose inhaler (20 sources) Corticosteroid, beta2-Adrenergic Agonist Start: 10-25-2022 take 2 puff(s) by inhalation in the morning Symbicort 160-4.5 MCG/ACT inhaler Inhale 2 puffs in the morning and 2 puffs before bedtime. 0 10/25/2022 Active Start: 06-30-2021 End: 06-22-2023 take 2 puff(s) by inhalation twice daily SYMBICORT 160-4.5 mcg/actuation inhaler Inhale 2 Puffs as instructed twice daily. 06/30/2021 06/22/2023 Discontinued (Course of therapy completed) Comment on above: Inhale 2 Puffs as in structed twice daily. calcium citrate 1500 mg oral tablet (20 sources) Start: 07-27-2010 take 1500 mg by mouth twice daily calcium citrate 1,500 mg, Oral, BID, Refills(s) 0, Prophylaxis Start Date: 07/27/10 Status: Ordered CALCIUM CITRATE PO Calcium Citrate / Vitamin D (20 sources) Start: 11-21-2018 take 1 tablet by mouth once daily calcium-vitamin D 1 tab, Oral, Daily, Refill(s) 0, Prophylaxis Start Date: 11/21/18 Status: Ordered cholecalciferol, vitamin D3, (VITAMIN D3 ORAL) (20 sources) cholecalciferol, vitamin D3, (VITAMIN D3 ORAL) Take by mouth. Active cholecalciferol, vitamin D3, (VITAMIN D3 ORAL) Take by mouth. 0 Suspended cholecalciferol, vitamin D3, (VITAMIN D3 ORAL) Take by mouth. 0 Active Comment on above: Take by mouth. Chondroitin Sulfates / Glucosamine (20 sources) Start: 11-21-2018 take 1 capsule by mouth once daily Chondroitin-Glucosami ne 1 cap(s), Oral, Daily, Refill(s) 0, Prophylaxis Start Date: 11/21/18 Status: Ordered Start: 01-11-2017 End: 06-20-2023 take 1 tablet by mouth twice daily Glucosamine-Chondroitin Discontinued 1 TAB PO Twice daily January 10, 2017 11:00pm June 20, 2023 2:14pm Start: 09-01-2011 take 1 capsule by mo [facility] twice daily Tcfytfqgzdd-Vntufymsu-Lik C-Mn 500-400 m g cap Take 1 capsule by mouth twice daily. 0 09/01/2011 Active Comment on above: Take 1 capsule by mo [facility] twice daily. CoQ10 (20 sources) Start: 5 take 100 mg by mouth three times daily CoQ10 100 mg, Oral, TID, Refills(s) 0, Prophylaxis Start Date: 03/13/15 Status: Ordered diazePAM 10 mg oral tablet (2 sources) Benzodiazepine take 1 tablet by mouth every hour diazePAM (Valium) 10 MG tablet TAKE 1 TABLET BY MOUTH 1 (ONE) HOUR prior to procedure 0 Active dofetilide 0.5 mg oral capsule (20 sources) Antiarrhythmic Start: 3 End: 4 take 1 capsule by mouth twice daily dofetilide (TIKOSYN) 500 mcg capsule Indications: Visit for monitoring Tikosyn therapy Take 1 capsule by mouth two times a day. 180 capsule 3 10/03/2023 Active Start: 03-31-2020 End: 09-21-2022 take 1 capsule by mouth twice daily dofetilide (TIKOSYN) 500 mcg capsule Take 1 capsule by mouth twice daily. 180 capsule 3 07/08/2021 09/21/2022 Discontinued Start: 03-31-2020 take 1 capsule by mo ut twice daily Tikosyn 500 mcg oral capsule 500 mcg = 1 cap(s), Oral, BID, Refills(s) 0, Irregular heartbeat Start Date: 03/31/20 Status: Ordered Comment on above: Take 1 capsule by mo [facility] twice daily. DULoxetine 60 mg delayed release oral capsule (20 sources) Serotonin and Norepinephrine Reuptake Inhibitor Start: 4 take 1 capsule by mouth once DULoxetine (CYMBALTA) 60 mg capsule Take 1 capsule by mouth every afternoon. 05/31/2023 Active Start: 10-20-2022 take 1 capsule by mo ut in the morning DULoxetine (Cymbalta) [address] capsule Take 60 mg by mouth in the morning. 10/20/2022 Active Start: 11-27-2018 take 30 mg by mouth once daily at bedtime Duloxetine Active 30 MG PO Daily at bedtime July 09, 2019 11:00pm End: 09-14-2022 take 2 capsules by mouth once daily DULoxetine (CYMBALTA) 30 mg capsule Take 60 mg by mouth once daily. 0 09/14/2022 Discontinued (Other) Comment on above: Take 30 mg by mouth once daily. Take 60 mg by mouth once daily. Take 1 capsule by mo [facility] every afternoon. duloxetine 30 mg Cap-DR (20 sources) Start: 9 take 1 capsule by mouth once daily duloxetine 30 mg Cap-DR 30 mg, Oral, Daily, Refills(s) 0, Depression Start Date: 11/27/18 Status: Ordered fenofibrate 160 mg oral tablet (20 sources) Peroxisome Proliferator Receptor alpha Agonist Start: 9 Fenofibrate (LOFIBRA) 160 mg tablet TAKE 1 TABLET ONCE DAILY 90 tablet 3 09/07/2021 Active Comment on above: TAKE 1 TABLET ONCE D AILY ferrous sulfate 325 mg oral tablet (20 sources) Start: 7 End: 4 take 325 mg by mouth once daily ferrous sulfate 325 mg, Oral, Daily, Refills(s) 0, Prophylaxis Start Date: 11/21/18 Status: Ordered Start: 09-01-2016 End: 05-18-2022 take 1 tablet by mouth once daily at breakfast ferrous sulfate 325 mg (65 mg iron) tablet Take 1 tablet by mouth daily with breakfast. 0 09/01/2016 05/18/2022 Discontinued Comment on above: Take 1 tablet by margie th daily with breakfast. fluconazole 200 mg oral tablet (12 sources) Azole Antifungal Start: 2 fluconazole 200 mg Tab 400 mg = 2 tab(s), Oral, Once, Take 400mg x 1 day, then 200mg x 21 days., # 2 tab(s), Refills(s) 0, Pharmacy: [id number], 177, cm, 08/14/21 13:09:00 EDT, Height/Length Dosing, 97.8, kg, 08/14/21 13:09:00 EDT, Weight Dosing Start Date: 08/14/21 Status: Ordered fluticasone propionate 0.05 mg/actuat metered dose nasal spray (20 sources) Corticosteroid Start: 3 take 2 spray(s) nasal route once daily fluticasone (Flonase) 50 MCG/ACT nasal spray instill 2 (TWO) sprays IN EACH NOSTRIL DAILY 10/24/2022 Active Start: 11-27-2018 Flonase 1 spra y(s), Nasal, Daily Allergy symptoms, Refill(s) 0, Nasal congestion Start Date: 11/27/18 Status: Ordered Start: 01-11-2017 Fluticasone Pr opionate Active 2 PUFF INTRANASAL Twice daily January 10, 2017 11:00pm Start: 09-01-2016 take 1 spray(s) nasa l route once daily fluticasone (FLONASE) 50 mcg/actuation nasal spray Use 1 [place] in each nostril once daily. 0 09/01/2016 Active Start: 12-24-2015 fluticasone HF A 44 mcg/inh Inhaler 2 puff(s), Inhalation, BID Allergy symptoms, 10.6 gram, Refill(s) 0, Allergy symptoms Start Date: 12/24/15 Status: Ordered Comment on above: Use 1 [place] in each nostril once daily. Fluticasone Propion-Salmeterol (20 sources) Corticosteroid, beta2-Adrenergic Agonist Start: 06-20-2023 Fluticasone Propion-Salmeterol Active INHALATION June 20, 2023 12:00am Start: 04-24-2023 ADVAIR DISKUS 100-50 mcg/dose inhaler Inhale as instructed two times a day. 04/24/2023 Active Comment on above: Inhale as instructed two times a day. fluticasone HFA 44 mcg/inh Inhaler (20 sources) Start: fluticasone HFA 44 mcg/inh Inhaler 2 puff(s), Inhalation, BID Allergy symptoms, 10.6 gram, Refill(s) 0, Allergy symptoms Start Date: 12/24/15 Status: Ordered furosemide 20 mg oral tablet (20 sources) Loop Diuretic Start: End: take 1 tablet by mouth once daily furosemide (Lasix) 20 MG tablet Take 20 mg by mouth Daily 11/09/2023 Active Start: 11-16-2022 End: 10-19-2023 take 1 tablet by mouth once daily furosemide (LASIX) 20 mg tablet Indications: PAF (paroxysmal atrial fibrillation) ([facility]) Take 1 tablet by mouth once daily. 90 tablet 3 11/16/2022 10/19/2023 Discontinued Start: 01-11-2017 End: 11-13-2022 take 1 tablet by mouth once daily furosemide (LASIX) 20 mg tablet Take 1 tablet by mouth once daily. 90 tablet 3 11/12/2022 11/13/2022 Discontinued Comment on above: TAKE 1 TABLET ONCE D AILY Take 1 tablet by margie once daily. gabapentin 300 mg oral capsule (12 sources) Anti-epileptic Agent Start: 06-22-2023 End: 08-29-2023 gabapentin 300 mg Cap Refills(s) 0 Start Date: 06/24/23 Status: Ordered Comment on above: Take 1 capsule by mo [facility] three times a day for 60 days. hydrocortisone 25 mg/ml topical cream (20 sources) Corticosteroid Start: 05-17-2018 PROCTOZONE-HC 2.5 % rectal cream APPLY TO THE AFFECTED AREA(S) 2-4 times daily 5 05/17/2018 Active Comment on above: APPLY TO THE AFFECTE D AREA(S) 2-4 times daily ketoconazole 20 mg/ml topical cream (20 sources) Azole Antifungal Start: 08-09-2022 ketoconazole (NIZORAL) 2 % cream 08/09/2022 Active Start: 08-09-2022 ketoconazole ( NIZOral) 2 % cream apply to affected areas of the mouth Externally qpm for 30 day(s) 0 08/09/2022 Active magnesium oxide 400 mg oral tablet (20 sources) Start: 03-09-2021 take 1 tablet by mouth once daily magnesium oxide (MAG-OX) 400 mg (241.3 mg magnesium) tablet Indications: PAF (paroxysmal atrial fibrillation) ([facility]) Take 1 tablet by mouth once daily. 30 tablet 5 03/09/2021 Active Comment on above: Take 1 tablet by margie once daily. metoclopramide 10 mg oral tablet (3 sources) Dopamine-2 Receptor Antagonist Start: 01-20-2022 take 1 tablet by mouth once Reglan 10 mg Tab 10 mg = 1 tab(s), Oral, Once, Prior to capsule endoscopy., # 1 tab(s), Refills(s) 0, Pharmacy: [id number], 177, cm, 01/26/22 10:33:00 EDT, Height/Length Dosing, 94, kg, 01/26/22 10:33:00 EDT, Weight Dosing Start Date: 01/27/22 Status: Ordered montelukast 10 mg oral tablet (20 sources) Leukotriene Receptor Antagonist Start: 07-10-2019 take 1 tablet by mouth once daily montelukast 10 mg Tab 10 mg = 1 tab(s), Oral, Daily, Refills(s) 0, Allergy symptoms Start Date: 02/05/20 Status: Ordered Comment on above: montelukast 10 mg ta blet Multivitamin-Minerals -Lutein (Multivitamin 50 Plus) Tablet (3 sources) Start: 01-11-2017 Multivitamin-[place] ls-Lutein (Multivitamin 50 Plus) Tablet Active 1 TAB PO Daily with lunch January 11, 2017 9:46am Start: 01-11-2017 Multivitamin-M inerals-Lutein (Multivitamin 50 Plus) Tablet Active 1 TAB PO Daily with lunch January 10, 2017 11:00pm [place] 5-Fij-Uqe-Fish Oil ([place]-3) 350 mg-235 mg- 90 mg-597 mg Capsule,Delayed Release(Dr/Ec) (3 sources) Start: 01-11-2017 take 1 capsule by mouth twice daily [place] 9-Jkt-Ovs-Fish Oil ([place]-3) 350 mg-235 mg- 90 mg-597 mg Capsule,Delayed Release(Dr/Ec) Active 1000 MG PO Twice daily January 11, 2017 9:47am Start: 01-11-2017 take 1 capsule by mo [facility] twice daily [place] 2-Ven-Qir-Fish Oil ([place]-3) 350 mg-235 mg- 90 mg-597 mg Capsule,Delayed Release(Dr/Ec) Active 1000 MG PO Twice daily January 10, 2017 11:00pm omega-3 acid ethyl esters ([facility]) 1000 mg oral capsule (20 sources) Start: 11-21-2018 omega-3 acid e thyl esters (LOVAZA) 1 gram capsule Take 1,000 mg by mouth. 11/21/2018 Active Comment on above: Take 1,000 mg by margie th. omega-3/dha/epa/fish oil (OMEGA-3 ORAL) (20 sources) omega-3/dha/epa/ fish oil (OMEGA-3 ORAL) Take by mouth. Active omega-3/dha/epa/ fish oil (OMEGA-3 ORAL) Take by mouth. 0 Active Comment on above: Take by mouth. omeprazole 40 mg delayed release oral capsule (20 sources) Proton Pump Inhibitor Start: 01-11-2017 take 40 mg by mouth once daily in the morning Omeprazole Active 40 MG PO Every morning January 10, 2017 11:00pm Start: 04-29-2011 omeprazole 40 mg Cap-EC 40 mg = 1 cap(s), Oral, Every other day, PRN Control of stomach acid, usually 4-5 times a week, Control of stomach acid Start Date: 04/29/11 Status: Ordered take 2 capsules by out once daily omeprazole (PRILOSEC) 20 mg capsule Take 40 mg by mouth once daily. 0 Active Comment on above: Take 40 mg by mouth once daily. omeprazole 40 mg Cap-EC (3 sources) Start: 04-29-20 omeprazole 40 mg Cap-EC 40 mg = 1 cap(s), Oral, Every other day, PRN Control of stomach acid, usually 4-5 times a week, Control of stomach acid Start Date: 04/29/11 Status: Ordered oxybutynin chloride 5 mg oral tablet (2 sources) Cholinergic Muscarinic Antagonist Start: 07-14-19 take 1 tablet by mouth twice daily oxybutynin 5 mg Tab 5 mg = 1 tab(s), Oral, BID, Start taking medication after procedure, # 30 tab(s), Refills(s) 0 Start Date: 07/13/21 Status: Ordered Plenvu oral powder for reconstitution (3 sources) Start: 07-16-19 take 1 dose by mouth once Plenvu oral powder for reconstitution See Instructions, 1 EA, Refill(s) 0, samples given to patient (Rx), Per physician's instructions. Prior to colonoscopy. Ordered as instructed by Dr. Bolaños. Start Date: 07/15/21 Status: Ordered pregabalin 50 mg oral capsule (20 sources) Start: 11-01-19 End: 12-11-19 take 1 capsule by mouth in the morning pregabalin (Lyrica) 50 MG capsule Take 50 mg by mouth in the morning and 50 mg in the evening. 11/01/2023 Active Start: 11-01-2023 take 1 capsule by mo [facility] three times daily pregabalin 50 mg Cap 50 mg = 1 cap(s), Oral, TID, TAKE 1 CAPSULE BY MOUTH AT BEDTIME FOR 3 DAYS, then TAKE 1 CAPSULE IN THE MORNING and ONE CAPSULE at NIGHT FOR 3 DAYS, then INCREASE to ONE CAPSULE THREE TIMES DAILY if tolerating well Start Date: 11/01/23 Status: Ordered Start: 08-29-2023 End: 11-11-2023 pregabalin (LYRICA) 50 mg ca psule Indications: 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athy Take one capsule daily at bedtime for 3 days, then one in the morning and one at night for 3 days. Then increase to one capsule three times daily if tolerating well. Patient is having side effects with Gabapentin. 90 capsule 1 08/29/2023 11/11/2023 Discontinued rOPINIRole 1 mg oral tablet (20 sources) Nonergot Dopamine Agonist Start: 08-08-2018 take 1-2 tablets by mouth at bedtime rOPINIRole (Requip) 1 MG tablet TAKE 1 TO 2 TABLETS BY MOUTH 1-3 HOURS BEFORE bedtime 10/26/2022 Active Start: 07-01-2016 End: 07-10-2019 take 1 tablet by mouth at bedtime Requip 3 mg Tab 3 mg = 1 tab(s), Oral, Bedtime, Refills(s) 0, Other (see comment) Start Date: 07/01/16 Status: Ordered Comment on above: Take 1 tablet by margie daily at bedtime. sildenafil 100 mg oral tablet (20 sources) Phosphodiesterase 5 Inhibitor Start: 01-26-2022 sildenafil (Viagra) 100 MG tablet TAKE 1 TABLET BY MOUTH 1 (ONE) HOUR BEFORE sexual activity 0 07/04/2022 Active Start: 07-13-2021 sildenafil 100 mg Tab 100 mg = 1 tab(s), Oral, As Directed, 1 hour before sexual activity, # 30 tab(s), Refills(s) 5, Pharmacy: [id number], 177, cm, 07/13/21 11:21:00 EDT, Height/Length Dosing, 94, kg, 07/13/21 11:21:00 EDT, Weight Dosing Start Date: 07/13/21 Status: Ordered solifenacin succinate 5 mg oral tablet (17 sources) Cholinergic Muscarinic Antagonist Start: 07-15-2022 solifenacin 5 mg Tab Refills(s) 0 Start Date: 07/15/22 Status: Ordered Start: 07-13-2021 take 1 tablet by margie th twice daily Vesicare 5 mg Tab 5 mg = 1 tab(s), Oral, BID, # 60 tab(s), Refills(s) 11, Pharmacy: [id number], 177, cm, 07/13/21 11:21:00 EDT, Height/Length Dosing, 94, kg, 07/13/21 11:21:00 EDT, Weight Dosing Start Date: 07/13/21 Status: Ordered Symbicort 80/4.5 inhalation aerosol with adapter (20 sources) Start: 04-21-2021 take 2 puff(s) by inhalation twice daily Symbicort 80/4.5 inhalation aerosol with adapter 2 puff(s), Inhalation, BID, Refill(s) 0, Wheezing Start Date: 04/21/21 Status: Ordered tiZANidine 4 mg oral tablet (19 sources) Central alpha-2 Adrenergic Agonist Start: 07-15-2022 tiZANidine 4 mg Tab Refills(s) 0 Start Date: 07/15/22 Status: Ordered 24 hr tolterodine tartrate 4 mg extended release oral capsule (20 sources) Cholinergic Muscarinic Antagonist Start: 10-15-2022 take 1 capsule by mouth every twenty-four hours in the morning tolterodine LA (Detrol LA) 4 MG 24 hr capsule Take 4 mg by mouth in the morning. 10/15/2022 Active Start: 05-27-2022 take 1 capsule by mo moh once daily tolterodine ER (DETROL LA) 4 mg 24 hr capsule Take 4 mg by mouth once daily. 05/27/2022 Active Comment on above: Take 4 mg by mouth o nce daily. ubidecarenone 100 mg oral capsule (20 sources) take 10 capsules by mouth once daily coenzyme Q10 100 mg cap Take 100 mg by mouth once daily. Active Comment on above: Take 100 mg by mouth once daily. vardenafil 20 mg oral tablet (20 sources) Phosphodiesterase 5 Inhibitor Start: 07-28-19 23 Levitra 20 mg Tab 20 mg = 1 tab(s), Oral, As Directed, PRN for erectile dysfunction, 1 hour before sexual activity, # 30 tab(s), Refills(s) 3, Pharmacy: [id number], 177, cm, 07/27/22 11:28:00 EDT, Height/Length Dosing, 94, kg, 07/27/22 11:28:00 EDT, Weight Dosing Start Date: 07/27/22 Status: Ordered Start: 01-26-2022 Levitra 20 mg Tab 20 mg = 1 tab(s), Oral, As Directed, PRN for erectile dysfunction, 1 hour before sexual activity, # 30 tab(s), Refills(s) 3, Pharmacy: [id number], 177, cm, 01/26/22 10:33:00 EDT, Height/Length Dosing, 94, kg, 01/26/22 10:33:00 EDT, Travis... Start Date: 01/26/22 Status: Ordered Completed/Discontinued Medications Medication Drug Class(es) Dates Sig (Normalized) Sig (Original) acetaminophen 325 mg / HYDROcodone bitartrate 5 mg oral tablet (6 sources) Opioid Agonist Start: 09-20-2019 End: 06-20-2023 take 1 tablet by mouth every six hours Hydrocodone-Acetami nophen Discontinued 1 TAB PO Q6H 26 11September 20, 2019 June 20, 2023 2:14pm Start: 01-11-2017 End: 07-10-2019 take 2 tablets by mouth every four to six hours Hydrocodone-Acetaminophen ([place]) 5-325 mg tablet Discontinued 2 TAB PO EVERY 4-6 HOURS 40 January 10, 2017 11:00pm July 10, 2019 3:54pm amoxicillin 500 mg oral capsule (20 sources) Penicillin-class Antibacterial Start: 01-11-2017 End: 01-11-2017 Amoxicillin Discontinued January 10, 2017 11:00pm January 11, 2017 10:05am amoxicillin (JONNIE XIL) 500 mg capsule TAKE 2 CAPSULES BY MOUTH now then TAKE 1 CAPSULE BY MOUTH EVERY 6 HOURS UNTIL GONE Active Comment on above: TAKE 2 CAPSULES BY M OUTH now then TAKE 1 CAPSULE BY MOUTH EVERY 6 HOURS UNTIL GONE Benzocaine (1 source) Standardized Chemical Allergen Start: 4 End: 4 benzocaine 20% (TOPEX) Calcium Carbonate / vitamin D3 (14 sources) End: 3 take 1 tablet by mouth twice daily CALCIUM CARBONATE/VITAMIN D3 (CALCIUM + D ORAL) Take 1 tablet by mouth twice daily. 0 05/18/2022 Discontinued take 1 tablet by mouth twice heavenly ly CALCIUM CARBONATE/VITAMIN D3 (CALCIUM + D ORAL) Take 1 tablet by mouth twice daily. 0 Active Comment on above: Take 1 tablet by margie twice daily. clonazePAM (5 sources) Benzodiazepine Start: 7 End: 0 take 1.5 mg by mouth once daily Clonazepam Discontinued 1.5 MG PO Daily January 11, 2017 9:18am July 10, 2019 4:53pm Start: 01-11-2017 End: 07-10-2019 take 1.5 mg by mouth once daily Clonazepam Discontinued 1.5 MG PO Daily January 10, 2017 11:00pm July 10, 2019 3:53pm clonazePAM (Klon oPIN) 1 MG tablet digoxin 0.25 mg oral tablet (5 sources) Cardiac Glycoside Start: 01-11-2017 End: 07-10-2019 take 250 ug by mouth once daily Digoxin Discontinued 250 MCG PO Daily January 10, 2017 11:00pm July 10, 2019 3:53pm escitalopram 20 mg oral tablet (5 sources) Serotonin Reuptake Inhibitor Start: 01-11-2017 End: 07-10-2019 take 20 mg by mouth once daily Escitalopram Oxalate Discontinued 20 MG PO Daily January 10, 2017 11:00pm July 10, 2019 3:54pm 1 ml fentaNYL 0.05 mg/ml injection (1 source) Opioid Agonist Start: 11-17-2023 End: 11-17-2023 fentaNYL 50 mcg/mL injection (SUBLIMAZE) 30 actuat fluticasone furoate 0.1 mg/actuat / vilanterol 0.025 mg/actuat dry powder inhaler (20 sources) Corticosteroid, beta2-Adrenergic Agonist Start: 07-10-2019 End: 06-20-2023 take 1 puff(s) by inhalation once daily in the morning Fluticasone Furoate-Vilanterol (Breo Ellipta) 100-25 mcg/dose blister with device Discontinued 1 PUFF INHALATION Every morning July 09, 2019 11:00pm June 20, 2023 2:13pm Start: 11-27-2018 End: 04-13-2022 fluticasone-vilanterol (BREO ELLIPTA) 100-25 mcg/dose inhaler Inhalation, Daily, Refill(s) 0, Asthma 0 11/27/2018 04/13/2022 Discontinued take 1 puff(s) by [facility] once daily Fluticasone Furoate-Vilanterol 100-25 MCG/ACT aerosol powder INHALE 1 PUFF BY MOUTH DAILY Active End: 04-13-2022 fluticasone-vilanterol (BREO ELLIPTA) 100-25 mcg/dose inhaler Inhale 1 Inhalation as instructed once daily. 0 04/13/2022 Discontinued Comment on above: Inhale 1 Inhalation as instructed once daily. Inhalation, Daily, Refill(s) 0, Asthma INHALE 1 PUFF BY MARGIE TH DAILY Glucosamine-Chondroit- Vit C-Mn (GLUCOSAMINE CHONDROITIN MAXSTR) 500-400 mg ORAL Cap (1 source) Start: 2 take 1 capsule by mouth twice daily Glucosamine-Chondroi t-Vit C-Mn (GLUCOSAMINE CHONDROITIN MAXSTR) 500-400 mg ORAL Cap Take 1 capsule by mouth twice daily. 0 09/01/2011 Active Comment on above: Take 1 capsule by [facility] twice daily. lidocaine hydrochloride 0.02 mg/mg topical gel (1 source) Antiarrhythmic, Amide Local Anesthetic Start: 4 End: 4 lidocaine urojet 2 % topical gel (GLYDO) loratadine 10 mg oral tablet (20 sources) Start: 7 End: 4 take 1 tablet by mouth once daily Loratadine (Claritin) 10 mg Tablet Discontinued 10 MG PO Daily January 10, 2017 11:00pm June 20, 2023 2:14pm End: 06-22-2023 take 1 tablet by mouth once daily LORATADINE (CLARITIN ORAL) Take 1 tablet by mouth once daily. 06/22/2023 Discontinued (Course of therapy completed) End: 06-22-2023 take 1 tablet by mouth once daily LORATADINE (CLARITIN ORAL) Take 1 tablet by mouth once daily. 0 06/22/2023 Discontinued (Course of therapy completed) take 1 tablet by margie th once daily LORATADINE (CLARITIN ORAL) Take 1 tablet by mouth once daily. 0 Suspended take 1 tablet by margie th once daily LORATADINE (CLARITIN ORAL) Take 1 tablet by mouth once daily. 0 Active Comment on above: Take 1 tablet by margie th once daily. Magnesium (3 sources) Start: 01-11-2017 End: 07-10-2019 take 250 mg by mouth once daily Magnesium Discontinued 250 MG PO Daily January 11, 2017 9:31am July 10, 2019 4:55pm Start: 01-11-2017 End: 07-10-2019 take 250 mg by mouth once daily Magnesium Discontinued 250 MG PO Daily January 10, 2017 11:00pm July 10, 2019 3:55pm meloxicam 15 mg oral tablet (7 sources) Nonsteroidal Anti-inflammatory Drug Start: 02-23-2023 End: 06-22-2023 take 1 tablet by mouth once meloxicam (MOBIC) 15 mg tablet Take 1 tablet by mouth every afternoon. 02/23/2023 06/22/2023 Discontinued (Course of therapy completed) Comment on above: Take 1 tablet by mouth every afternoon. metoprolol tartrate 100 mg oral tablet (3 sources) beta-Adrenergic Waylon Start: 01-11-2017 End: 07-10-2019 take 100 mg by mouth twice daily Metoprolol Tartrate Discontinued 100 MG PO Twice daily January 10, 2017 11:00pm July 10, 2019 3:55pm 5 ml midazolam 1 mg/ml injection (1 source) Benzodiazepine Start: 11-17-2023 End: 11-17-2023 midazolam (PF) injection (VERSED) Jlcxy-3-NIC-EPA- Fish Oil (FISH OIL) 1,000 mg (120 mg-180 mg) cap (5 sources) take 1 capsule by mouth twice daily Cekwe-6-GTT-EPA-F julio c Oil (FISH OIL) 1,000 mg (120 mg-180 mg) cap Take 2 g by mouth twice daily. 0 Active Comment on above: Take 2 g by mouth twice daily. Sipcl-0-WYO-EPA- Fish Oil 1,000 mg (120 mg-180 mg) cap (20 sources) End: 06-22-2023 take 1 capsule by mouth twice daily Vcitq-1-JCZ-EPA-F julio c Oil 1,000 mg (120 mg-180 mg) cap Take 2 g by mouth twice daily. 06/22/2023 Discontinued (Course of therapy completed) End: 06-22-2023 take 1 capsule by mouth twice daily Wfjfa-7-MES-EPA-Fish Oil 1,000 mg (120 mg-180 mg) cap Take 2 g by mouth twice daily. 0 06/22/2023 Discontinued (Course of therapy completed) take 1 capsule by mo ut twice daily Jrned-3-PIM-EPA-Fish Oil 1,000 mg (120 mg-180 mg) cap Take 2 g by mouth twice daily. 0 Suspended take 1 capsule by mo uth twice daily Pooii-3-QWW-EPA-Fish Oil 1,000 mg (120 mg-180 mg) cap Take 2 g by mouth twice daily. 0 Active Comment on above: Take 2 g by mouth tw ice daily. perflutren lipid microspheres 1.3 mL in NaCl (PF) 0.9% 10 mL injection (DEFINITY) (20 sources) Start: 04-19-2022 End: 07-19-2023 perflutren lipid microspheres 1.3 mL in NaCl (PF) 0.9% 10 mL injection (DEFINITY) 125 ml sodium chloride 9 mg/ml prefilled syringe (20 sources) Start: 04-19-2022 End: 09-14-2023 sodium chloride 0.9 % (flush) 10 mL (BD POSIFLUSH) Comment on above: Inject 2-10 mL intra venously as directed. For Echo procedure Problems Active Problems Problem Classification Problem Date Documented Date Episodic/Chronic Acute and unspecified renal failure (2 sources) Acute kidney failure, unspecified; Translations: [ACUTE KIDNEY FAILURE UNSPECIFIED] Onset: 2 Episodic Administrative/socia l admission (2 sources) Repeated prescription; Translations: [Encounter for issue of repeat prescription] Episodic Cancer of bone and connective tissue (20 sources) Malignant melanoma of trunk 11-10-2015 Chronic Comment on above: Left breast Cardiac dysrhythmias (20 sources) Paroxysmal atrial fibrillation; Translations: [Paroxysmal atrial fibrillation] Onset: 9 04-27-2021 Chronic Chronic obstructive pulmonary disease and bronchiectasis (20 sources) Chronic obstructive lung disease; Translations: [Obstruction of lower respiratory tract] Onset: 2 Resolved: 4 11-10-2015 Chronic Congestive heart failure; nonhypertensive (20 sources) Acute on chronic diastolic heart failure; Translations: [Acute on chronic diastolic (congestive) heart failure] Onset: 6 Resolved: 4 10-31-2015 Chronic Coronary atherosclerosis and other heart disease (20 sources) Coronary arteriosclerosis 11-10-2015 Chronic Deficiency and other anemia (3 sources) Anemia due to chronic blood loss; Translations: [Iron deficiency anemia secondary to blood loss (chronic)] Onset: 2 Chronic Deficiency and other anemia (2 sources) Iron deficiency anemia; Translations: [Iron deficiency anemia, unspecified] Episodic Disorders of lipid metabolism (20 sources) Hypercholesterolemia; Translations: [Hyperlipidemia] Onset: 2 07-13-2013 Chronic Essential hypertension (20 sources) Hypertensive disorder; Translations: [Benign hypertension] Onset: 6 11-10-2015 Chronic Gastroduodenal ulcer (except hemorrhage) (20 sources) Peptic ulcer; Translations: [Peptic ulcer, site unspecified, unspecified as acute or chronic, without hemorrhage or perforation] 11-10-2015 Chronic Genitourinary symptoms and ill-defined conditions (20 sources) Incontinence; Translations: [Urge incontinence of urine] Onset: 2 11-27-2019 Chronic Genitourinary symptoms and ill-defined conditions (20 sources) Incomplete emptying of bladder; Translations: [Increased frequency of urination] 11-27-2019 Episodic Hemorrhoids (20 sources) Internal hemorrhoids; Translations: [Hemorrhoids] 01-15-2021 Episodic Melanomas of skin (20 sources) Malignant melanoma; Translations: [Malignant melanoma of skin, unspecified] Onset: 6 04-27-2021 Chronic Mood disorders (20 sources) Depression; Translations: [Depressive disorder] Onset: 2 Resolved: 4 11-10-2015 Chronic Mycoses (20 sources) Candidiasis of the esophagus; Translations: [Candidal esophagitis] Onset: 2 08-14-2021 Episodic Osteoporosis (2 sources) Age-related osteoporosis without current pathological fracture; Translations: [Senile osteoporosis] 06-20-2023 Chronic Other acquired deformities (20 sources) Disorder of shoulder; Translations: [Contracture, unspecified shoulder] Onset: 6 09-08-2016 Chronic Other acquired deformities (3 sources) Lumbar spondylolisthesis; Translations: [Spondylolisthesis, lumbar region] 06-20-2023 Episodic Other acquired deformities (2 sources) Spondylolisthesis, lumbar region; Translations: [Acquired spondylolisthesis] 06-20-2023 Episodic Other aftercare (1 source) Other retirement (current) drug therapy; Translations: [OTH CORRECTION CURRENT DRUG THERAPY] Onset: 3 Episodic Other and ill-defined heart disease (20 sources) Left atrial dilatation 11-10-2015 Chronic Other and unspecified benign neoplasm (20 sources) History of polyp of colon; Translations: [Personal history of colonic polyps] Onset: 2 05-30-2019 Episodic Other circulatory disease (3 sources) Presence of other cardiac implants and grafts; Translations: [Other specified cardiac device in situ] Onset: 4 07-18-2023 Chronic Other circulatory disease (20 sources) H/O: atrial fibrillation 04-29-2011 Episodi c Other circulatory disease (1 source) History of cerebrovascular disease; Translations: [Personal history of other diseases of the circulatory system] Onset: 2 Episodic Other connective tissue disease (20 sources) Rotator cuff syndrome 07-13-2013 Episodic Comment on above: B shoulders Other connective tissue disease (20 sources) H/O: Disorder; Translations: [Personal history of other diseases of the musculoskeletal system and connective tissue] 09-01-2011 Episodic Other connective tissue disease (20 sources) Unspecified rotator cuff tear or rupture of unspecified shoulder, not specified as traumatic; Translations: [Rotator cuff (capsule) sprain] 09-01-2011 Episodic Other connective tissue disease (2 sources) Bilateral rotator cuff arthropathy of shoulder; Translations: [Unspecified rotator cuff tear or rupture of right shoulder, not specified as traumatic] Episodic Other connective tissue disease (4 sources) Pain in left foot; Translations: [PAIN IN LEFT FOOT] Onset: 3 Episodic Other connective tissue disease (1 source) Pain of toe of left foot; Translations: [Pain in left toe(s)] 06-14-2023 Episodic Other connective tissue disease (1 source) Pain of toe of right foot; Translations: [Pain in right toe(s)] 06-14-2023 Episodic Other diseases of kidney and ureters (1 source) Urinary tract obstruction; Translations: [Other obstructive and reflux uropathy] Onset: 2 Episodic Other hereditary and degenerative nervous system conditions (1 source) Restless legs syndrome; Translations: [RESTLESS LEGS SYNDROME] Onset: 2 Chronic Other hereditary and degenerative nervous system conditions (3 sources) Restless legs; Translations: [Restless legs syndrome] 01-26-2024 Chronic Other lower respiratory disease (3 sources) Dyspnea on exertion; Translations: [Other forms of dyspnea] 06-13-2023 Episodic Other male genital disorders (20 sources) Impotence 11-27-2019 Chronic Other male genital disorders (5 sources) Male erectile dysfunction, unspecified; Translations: [Erectile dysfunction] Onset: 2 Chronic Other nervous system disorders (20 sources) Carpal tunnel syndrome; Translations: [Carpal tunnel syndrome, unspecified upper limb] 03-13-2015 Chronic Other nervous system disorders (5 sources) Disorder of right median nerve; Translations: [Other lesions of median nerve, right upper limb] 01-26-2024 Chronic Other nervous system disorders (1 source) Numbness of lower limb ; Translations: [Anesthesia of skin] 12-01-2023 Episodic Other non-epithelial cancer of skin (20 sources) History of malignant neoplasm of skin 01-01-2019 Episodic Other non-traumatic joint disorders (20 sources) Metatarsophalangeal joint stiff 05-05-2017 Episodic Other non-traumatic joint disorders (2 sources) Bilateral shoulder joint pain; Translations: [Pain in right shoulder] Episodic Other non-traumatic joint disorders (3 sources) Arthralgia of the upper arm; Translations: [Pain in unspecified elbow] 01-26-2024 Episodic Other non-traumatic joint disorders (2 sources) Pain in left wrist; Translations: [Pain in left wrist] Onset: 4 Episodic Residual codes; unclassified (20 sources) Sleep apnea 07-01-2016 Chronic Comment on above: uses CPap Residual codes; unclassified (5 sources) Obstructive sleep apnea syndrome; Translations: [Obstructive sleep apnea (adult) (pediatric)] 01-26-2024 Chronic Residual codes; unclassified (20 sources) H/O: anticoagulant therapy 02-20-2019 Episodic Residual codes; unclassified (3 sources) Insomnia; Translations: [Insomnia, unspecified] 01-26-2024 Episodic Spondylosis; intervertebral disc disorders; other back problems (20 sources) Pain in cervical spine; Translations: [Cervicalgia] Onset: 2 Resolved: 4 07-23-2015 Episodic Unclassified (1 source) Unknown / UNK(Unknown) Onset: 7 Unclassified (20 sources) Malignant neoplasm, primary (morphologic abnormality) 07-13-2013 Comment on above: skin, removed Unclassified (20 sources) Discectomy of spine 05-12-2010 Comment on above: L5 Unclassified (20 sources) Finding of sensation of bladder 10-28-2018 Unclassified (20 sources) Heart structure (body structure) 05-12-2010 Unclassified (1 source) CONTACT W/AND (SUSP) EXPOS COVID-19; Translations: [CONTACT W/AND (SUSP) EXPOS COVID-19] Onset: 2 Unclassified (1 source) LOW BACK PAIN, UNSPECIFIED; Translations: [LOW BACK PAIN, UNSPECIFIED] Onset: 2 Unclassified (1 source) Spondylolisthesis, lumbar region; Translations: [Spondylolisthesis, lumbar region] Onset: 4 Past or Other Problems Problem Classification Problem Date Documented Da te Episodic/Chronic Abdominal pain (20 sources) Flank pain; Translations: [Unspecified abdominal pain] Onset: 2 Resolved: 3 11-27-2019 Episodic Acute posthemorrhagic anemia (1 source) Acute posthemorrhagic anemia; Translations: [ACUTE POSTHEMORRHAGIC ANEMIA] Onset: 2 Episodic Conditions associated with dizziness or vertigo (1 source) Dizziness and giddiness; Translations: [DIZZINESS AND GIDDINESS] Onset: 2 Episodic Deficiency and other anemia (20 sources) Anemia due to blood loss; Translations: [Iron deficiency anemia secondary to blood loss (chronic)] Onset: 3 Resolved: 3 01-06-2022 Chronic Deficiency and other anemia (20 sources) Anemia; Translations: [Anemia, unspecified] Onset: 2 Resolved: 4 Episodic Deficiency and other anemia (2 sources) Anemia, unspecified; Translations: [ANEMIA UNSPECIFIED] Onset: 2 Episodic Esophageal disorders (20 sources) Gastroesophageal reflux disease; Translations: [Gastro-esophageal reflux disease without esophagitis] Onset: 2 Resolved: 3 10-18-2013 Chronic Fluid and electrolyte disorders (1 source) Dehydration; Translations: [DEHYDRATION] Onset: 2 Episodic Gastritis and duodenitis (1 source) Gastritis, unspecified, without bleeding; Translations: [GASTRITIS UNS WITHOUT BLEEDING] Onset: 2 Episodic Gastrointestinal hemorrhage (20 sources) Melena; Translations: [Melena] Onset: 2 Episodic Gout and other crystal arthropathies (5 sources) Primary gout; 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, left wrist] Onset: 3 Resolved: 3 01-26-2023 Chronic Hyperplasia of prostate (20 sources) Benign prostatic hypertrophy with outflow obstruction; Translations: [Large prostate ] Onset: 2 Resolved: 3 11-27-2018 Chronic Nonspecific chest pain (9 sources) Chest pain, unspecified; Translations: [Atypical chest pain] Onset: 2 Episodic Osteoarthritis (20 sources) Arthritis; Translations: [Unspecified osteoarthritis, unspecified site] Onset: 6 Resolved: 3 11-10-2015 Chronic Other acquired deformities (5 sources) Contracture of joint of left ankle; Translations: [Contracture, left ankle] Onset: 3 Resolved: 3 01-26-2023 Chronic Other acquired deformities (5 sources) Deformity of metatarsal; Translations: [Unspecified acquired deformity of unspecified lower leg] Onset: 3 Resolved: 3 01-26-2023 Episodic Other aftercare (20 sources) Patient encounter status; Translations: [Encounter for therapeutic drug level monitoring] Onset: 9 09-06-2018 Episodic Other aftercare (1 source) intermediate card tender (current) use of anticoagulants; Translations: [PAYROLL BENEFITS CLERK CURRNT USE ANTICOAGULANTS] Onset: 2 Episodic Other aftercare (9 sources) Long-term current use of drug therapy; Translations: [Encounter for therapeutic drug level monitoring] Onset: 9 09-06-2018 Episodic Other and unspecified benign neoplasm (20 sources) Polyp of colon; Translations: [Polyp of colon] Onset: 3 Resolved: 3 10-02-2020 Episodic Other and unspecified benign neoplasm (1 source) Personal history of colonic polyps; Translations: [PERSONAL HISTORY OF COLONIC POLYPS] Onset: 2 Episodic Other circulatory disease (20 sources) Clearing throat - hawking; Translations: [Other specified symptoms and signs involving the circulatory and respiratory systems] Onset: 2 12-30-2011 Episodic Other circulatory disease (1 source) Orthostatic hypotension; Translations: [ORTHOSTATIC HYPOTENSION] Onset: 2 Episodic Other connective tissue disease (20 sources) Partial thickness rotator cuff tear Onset: 1 07-06-2010 Episodic Other connective tissue disease (20 sources) Rotator cuff tear arthropathy; Translations: [Unspecified rotator cuff tear or rupture of unspecified shoulder, not specified as traumatic] Onset: 6 09-08-2016 Episodic Other connective tissue disease (20 sources) Full thickness rotator cuff tear; Translations: [Complete rotator cuff tear or rupture of left shoulder, not specified as traumatic] Onset: 6 05-29-2015 Episodic Other connective tissue disease (20 sources) Shoulder girdle weakness; Translations: [Other symptoms and signs involving the musculoskeletal system] Onset: 7 09-21-2016 Episodic Other gastrointestinal disorders (20 sources) Ulceration of intestine; Translations: [Ulcer of intestine] Onset: 3 Resolved: 3 02-17-2022 Episodic Other lower respiratory disease (1 source) Shortness of breath; Translations: [SHORTNESS OF BREATH] Onset: 2 Episodic Other lower respiratory disease (1 source) Other forms of dyspnea; Translations: [ANDERSEN (dyspnea on exertion)] Onset: 4 Episodic Other non-traumatic joint disorders (20 sources) Shoulder stiff; Translations: [Stiffness of unspecified shoulder, not elsewhere classified] Onset: 6 08-20-2015 Episodic Other non-traumatic joint disorders (20 sources) Shoulder pain; Translations: [Pain in right shoulder] Onset: 7 09-21-2016 Episodic Other non-traumatic joint disorders (20 sources) Pain in right shoulder; Translations: [Pain in joint, shoulder region] Onset: 7 09-21-2016 Episodic Other nutritional; endocrine; and metabolic disorders (20 sources) Body mass index 30+ - obesity; Translations: [Body mass index (BMI) 30.0-30.9, adult] Onset: 3 Resolved: 3 01-08-2021 Chronic Other nutritional; endocrine; and metabolic disorders (20 sources) Obese class I; Translations: [Obesity, unspecified] Onset: 8 Resolved: 3 01-03-2018 Chronic Other screening for suspected conditions (not mental disorders or infectious disease) (20 sources) Raised prostate specific antigen; Translations: [Elevated prostate specific antigen [PSA]] Onset: 2 Resolved: 3 10-28-2018 Episodic Residual codes; unclassified (20 sources) Current drinker; Translations: [Alcohol use] Onset: 3 Resolved: 3 09-01-2011 Episodic Residual codes; unclassified (1 source) Personal history of other specified conditions; Translations: [PERSONAL HISTORY OTH SPEC CONDITION] Onset: 2 Episodic Screening and history of mental health and substance abuse codes (20 sources) Ex-smoker; Translations: [Personal history of nicotine dependence] Onset: 2 Resolved: 3 11-27-2019 Episodic Spondylosis; intervertebral disc disorders; other back problems (14 sources) Other cervical disc degeneration, unspecified cervical region; Translations: [Cervical radiculopathy] Onset: 3 Resolved: 3 01-26-2023 Chronic Sprains and strains (20 sources) Rupture of tendon of biceps; Translations: [Strain of muscle, fascia and tendon of long head of biceps, unspecified arm, initial encounter] Onset: 6 Resolved: 3 05-29-2015 Episodic Unclassified (20 sources) Entire carpal canal (body structure) 11-10-2015 Unclassified (1 source) Exposure to 2019 novel coronavirus; Translations: [Contact with and (suspected) exposure to COVID19] Urinary tract infections (1 source) Urinary tract infection, site not specified; Translations: [UTI SITE NOT SPECIFIED] Onset: 2 Episodic Viral infection (20 sources) Measles; Translations: [Mumps] Onset: 3 Resolved: 3 03-13-2015 Episodic Results Test Name Value Interpretation Reference Range Facility [facility] 02-03-2024 36 Faxed all orders to number provided. 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 Normal [facility] Follow-Upon 01-26-2024 Follow-Up [id number] Irena Peraza Jr. 1945 M Date Provider Department Center 01/26/2024 Yfn-SUSIE RIOS ORTHO MPORTHO No family history on file Level of Service:58038 [place] OFFICE/OUTPATIENT ESTABLISHED LOW MDM 20 MIN (GC) Reason for Visit and Comments: Follow-up [027870] [facility] [place] XR Foot 3+ Views Righton XR Foot 3+ Views Right Exam Date/Time: 01/13/2024 14:19 EDT Reason for Exam: M25.571 Report IMPRESSION: NONSPECIFIC SOFT TISSUE SWELLING PREDOMINANTLY OF THE DORSUM OF THE FOREFOOT. NO DISPLACED FRACTURE OR ACUTE OSSEOUS PROCESS IDENTIFIED. EXAM: XR Foot 3+ Views Right DATE: 01/13/2024 2:05 PM CLINICAL HISTORY: M25.571. COMPARISON: 04/12/2017. TECHNIQUE: AP, lateral, and oblique radiographs of the right foot were obtained. FINDINGS: Nonspecific soft tissue swelling is present predominantly at the dorsum of the forefoot. No fracture, worrisome bone destruction, significant soft tissue emphysema, or other acute findings identified. Two screws are noted fixing the right first MTP joint from interval arthrodesis since 04/12/2017, which are otherwise unremarkable. A very thin small radiodense foreign body is noted within the plantar soft tissues near a very small plantar calcaneal spur, which is of doubtful clinical significance. Degenerative changes have not significantly changed. Ordering Provider: Scarlett Gaviria FINAL REPORT Dictated: 01/13/2024 2:38 pm Karlo Saldana MD Signed (Electronic Signature): 01/13/2024 2:38 pm Signed by: Karlo Saldana MD Transcribed by: JADEN Technologist: JOVANI Technical Comments Radiation Dose: Ka,r in mGy = . DAP = . Normal [facility]20[facility] (SPOKMN[facility] IRENA PERAZA ([id number]) 1945 M Date Time Provider Department 12/30/23 ALPA RAM [facility] During your visit today, we recorded the following information about you: Tremaine Joseph RN 12/30/2023 9:39 AM Signed Tried to reach patient for post-injection phone call [phone]. Left office number for patient to call back. SodaHead message/questionairre sent regarding post-injection. Tremaine Joseph RN Allergies As of Date: 12/30/2023 (No Known Allergies) Date Reviewed: 12/20/2023 Reviewed by: Sarah Pat RN - Fully Assessed Prescriptions as of 12/30/2023 - pregabalin (LYRICA) 50 mg capsule Take 1 capsule by mouth two times a day for 30 days. - furosemide (LASIX) 20 mg tablet Take 1 tablet by mouth once daily. - atenolol (TENORMIN) 50 mg tablet Take 1 tablet by mouth once daily. - dofetilide (TIKOSYN) 500 mcg capsule Take 1 capsule by mouth two times a day. - omega-3/dha/epa/fish oil (OMEGA-3 ORAL) Take by mouth. - atorvastatin (LIPITOR) 40 mg tablet take 1 tablet by mouth once daily - acetaminophen 650 mg CR tablet Every 12 hours - amoxicillin (AMOXIL) 500 mg capsule TAKE 2 CAPSULES BY MOUTH now then TAKE 1 CAPSULE BY MOUTH EVERY 6 HOURS UNTIL GONE - ketoconazole (NIZORAL) 2 % cream - DULoxetine (CYMBALTA) 60 mg capsule Take 1 capsule by mouth every afternoon. - fluticasone-vilantero l (BREO ELLIPTA) 100-25 mcg/dose inhaler INHALE 1 PUFF BY MOUTH DAILY - omega-3 acid ethyl esters (LOVAZA) 1 gram capsule Take 1,000 mg by mouth. - ADVAIR DISKUS 100-50 mcg/dose inhaler Inhale as instructed two times a day. - tolterodine ER (DETROL LA) 4 mg 24 hr capsule Take 4 mg by mouth once daily. - aspirin, enteric coated (ECOTRIN LOW STRENGTH) 81 mg EC tablet Take 1 tablet by mouth once daily. - Fenofibrate (LOFIBRA) 160 mg tablet TAKE 1 TABLET ONCE DAILY - cholecalciferol, vitamin D3, (VITAMIN D3 ORAL) Take by mouth. - magnesium oxide (MAG-OX) 400 mg (241.3 mg magnesium) tablet Take 1 tablet by mouth once daily. - omeprazole (PRILOSEC) 40 mg capsule Take 40 mg by mouth once daily. - rOPINIRole (REQUIP) 1 mg tablet Take 1 tablet by mouth daily at bedtime. - montelukast (SINGULAIR) 10 mg tablet montelukast 10 mg tablet - allopurinol (ZYLOPRIM) 100 mg tablet Take 100 mg by mouth once daily. - PROCTOZONE-HC 2.5 % rectal cream APPLY TO THE AFFECTED AREA(S) 2-4 times daily - fluticasone (FLONASE) 50 mcg/actuation nasal spray Use 1 [place] in each nostril once daily. - coenzyme Q10 100 mg cap Take 100 mg by mouth once daily. - albuterol HFA (PROAIR HFA) 90 mcg/actuation inhaler Inhale 2 Puffs as instructed every 6 hours as needed. - Glucosamine-Chondroit -Vit C-Mn 500-400 mg cap Take 1 capsule by mouth twice daily. Meds Comments as of 09/01/2016: Omeprazole is taken prn Problem List As Of Date 12/30/2023 Noted Resolved PAF (paroxysmal atrial fibrillation) ([facility]) [I48* Former smoker [Z87.891] Obstructive lung disease [J44.9] Hyperlipemia [E78.5] PUD (peptic ulcer disease) [K27.9] GERD (gastroesophageal reflux disease) [K21.9] Carpal tunnel syndrome [G56.00] Hx of neck disorder [Z87.39] Rotator cuff tear [M75.100] Arthritis [M19.90] Depression [F32.A] Alcohol use LPRD (laryngopharyngeal reflux disease) [K21.9] 12/30/2011 Chronic throat clearing [R09.89] 12/30/2011 Biceps rupture, proximal [S46.119A] 05/29/2015 Contracture of shoulder [M24.519] 05/29/2015 Rotator cuff tear arthropathy [M75.100, M12.819]05/29/2015 Complete tear of left rotator cuff [M75.122] 05/29/2015 Melanoma ([facility]) [C43.9] 07/23/2015 HTN (hypertension), benign [I10] 07/23/2015 Cervical spine pain [M54.2] Osteoarthritis [M19.90] 08/06/2015 Limitation of joint motion of shoulder [M25.619]08/20/2015 Acute on chronic diastolic congestive heart win*10/31/2015 Chronic diastolic congestive heart failure (HCC*12/19/2015 Right shoulder pain [M25.511] 09/21/2016 Stiffness of shoulder joint [M25.619] 09/21/2016 Weakness of shoulder [R29.898] 09/21/2016 Obesity, Class I, BMI 30-34.9 [E66.9] 01/03/2018 Persistent atrial fibrillation (HCC) [I48.19] 07/28/2018 Visit for monitoring Tikosyn therapy [Z51.81, Z*09/06/2018 Gastrointestinal hemorrhage [K92.2] 05/18/2022 IRB 21-1031 WATCHAMAN FLX Real World Evidence (*05/19/2022 Atrial fibrillation (HCC) [I48.91] 05/19/2022 Low back pain, unspecified [M54.50] 01/12/2022 Diagnosed: 06/13/2023 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*09/20/2023 Lumbar radiculopathy [M54.16] 12/20/2023 Encounter Status:Closed by TREMAINE JOSEPH on 12/30/23 Normal [facility] HISTORY PHYSICALon HISTORY PHYSICAL HNO ID: [id number] Author: JOYA MAR APRN.[employer] CH[employer]ER Service: ? Author Type: Nurse Practitioner Type: H&P Filed: 12/20/2023 10:03 Note Text: LOCAL PROCEDURE HISTORY AND PHYSICAL EXAM SERVICE DATE: 12/20/2023 SERVICE TIME: 10:03 AM Provisional Diagnosis/Treatment Plan: Lumbar Spine - Transforaminal epidural Subjective HPI: This is a 78 year old male who presents with back pain MEDICATIONS: Prior to Admission medications as of 11/17/23 1555 Medication Sig Last Dose Taking pregabalin (LYRICA) 50 mg capsule Take 1 capsule by mouth two times a day for 30 days. 12/19/2023 Yes furosemide (LASIX) 20 mg tablet Take 1 tablet by mouth once daily. 12/19/2023 Yes atenolol (TENORMIN) 50 mg tablet Take 1 tablet by mouth once daily. 12/20/2023 Yes dofetilide (TIKOSYN) 500 mcg capsule Take 1 capsule by mouth two times a day. 12/20/2023 Yes omega-3/dha/epa/fish oil (OMEGA-3 ORAL) Take by mouth. 12/19/2023 Yes atorvastatin (LIPITOR) 40 mg tablet take 1 tablet by mouth once daily 12/19/2023 Yes DULoxetine (CYMBALTA) 60 mg capsule Take 1 capsule by mouth every afternoon. 12/19/2023 Yes ADVAIR DISKUS 100-50 mcg/dose inhaler Inhale as instructed two times a day. 12/20/2023 Yes tolterodine ER (DETROL LA) 4 mg 24 hr capsule Take 4 mg by mouth once daily. 12/19/2023 Yes aspirin, enteric coated (ECOTRIN LOW STRENGTH) 81 mg EC tablet Take 1 tablet by mouth once daily. 12/19/2023 Yes Fenofibrate (LOFIBRA) 160 mg tablet TAKE 1 TABLET ONCE DAILY 12/20/2023 Yes cholecalciferol, vitamin D3, (VITAMIN D3 ORAL) Take by mouth. 12/19/2023 Yes magnesium oxide (MAG-OX) 400 mg (241.3 mg magnesium) tablet Take 1 tablet by mouth once daily. 12/19/2023 Yes omeprazole (PRILOSEC) 40 mg capsule Take 40 mg by mouth once daily. 12/19/2023 Yes rOPINIRole (REQUIP) 1 mg tablet Take 1 tablet by mouth daily at bedtime. 12/19/2023 Yes montelukast (SINGULAIR) 10 mg tablet montelukast 10 mg tablet 12/19/2023 Yes allopurinol (ZYLOPRIM) 100 mg tablet Take 100 mg by mouth once daily. 12/20/2023 Yes fluticasone (FLONASE) 50 mcg/actuation nasal spray Use 1 [place] in each nostril once daily. 12/20/2023 Yes coenzyme Q10 100 mg cap Take 100 mg by mouth once daily. 12/19/2023 Yes acetaminophen 650 mg CR tablet Every 12 hours amoxicillin (AMOXIL) 500 mg capsule TAKE 2 CAPSULES BY MOUTH now then TAKE 1 CAPSULE BY MOUTH EVERY 6 HOURS UNTIL GONE ketoconazole (NIZORAL) 2 % cream fluticasone-vilantero l (BREO ELLIPTA) 100-25 mcg/dose inhaler INHALE 1 PUFF BY MOUTH DAILY omega-3 acid ethyl esters (LOVAZA) 1 gram capsule Take 1,000 mg by mouth. PROCTOZONE-HC 2.5 % rectal cream APPLY TO THE AFFECTED AREA(S) 2-4 times daily albuterol HFA (PROAIR HFA) 90 mcg/actuation inhaler Inhale 2 Puffs as instructed every 6 hours as needed. 12/18/2023 Glucosamine-Chondroit -Vit C-Mn 500-400 mg cap Take 1 capsule by mouth twice daily. PRN ALLERGIES No Known Allergies Objective PHYSICAL EXAM: The remainder of the physical exam is noncontributory. GENERAL: Alert, no distress, cooperative LUNGS: Lungs clear to auscultation, Good diaphragmatic excursion CARDIAC: Normal S1 and S2; no rubs, murmurs, or gallops BP 186/92 Pulse 95 Temp 36.3 ?C (97.4 ?F) (Temporal) Resp 18 SpO2 97% PAIN ASSESSMENT: PAIN EVALUATION 12/20/2023 0939 Pain Level: 7 Pain Location: Back-Lower Description: Aching;Throbbing Intervention/Comfort measure: Reposition;Relaxation Assessment/Plan Active Problems: Spinal stenosis, lumbar region, without neurogenic claudication (POA: Yes) Assessment AND Plan: Lumbar Spine - Transforaminal epidural Lumbar radiculopathy (POA: Unknown) Assessment AND Plan: Lumbar Spine - Transforaminal epidural Resolved Problems: * No resolved hospital problems. * Obesity Class I (BMI 30-34.9) Medication and Non-Pharmacologic VTE Prophylaxis/Anticoagu lants VTE Prophylaxis: NA SIGNATURE: Joya Mar APRN.CNP PATIENT NAME: Irena Peraza DATE: December 20, 2023 TIME: 10:02 AM Normal [facility] NURSING PROGon 12-20-2023 NURSING PROG HNO ID: [id number] Author: TRIXIE ROSENTHAL RN Service: ? Author Type: Registered Nurse Type: Nursing Progress Note Filed: 12/20/2023 11:43 Note Text: Report received from Sarah CONTRERAS, D/C instructions given, pt ambulated well at the voided in BR post op. D/C home. Normal [facility] NURSING PROG HNO ID: [id number] Author: SARAH PAT RN Service: ? Author Type: Registered Nurse Type: Nursing Progress Note Filed: 12/20/2023 11:17 Note Text: Push/pulls equal and strong bilaterally. C/o mild numbness L > R. Pain level 3/10 in low back. DSD intact in low back. Eliazar Pat RN Normal [facility] OPERATIVE NOon 12-20-2023 OPERATIVE NO HNO ID: [id number] Author: ALPA RAM DO Service: Physical Medicine AND Rehabilitation Author Type: Physician Type: Operative Report Filed: 12/20/2023 11:00 Note Text: PROCEDURE REPORT Surgery/Procedure Date: December 20, 2023 Interventionalist: Alpa Ram DO Procedure(s): Bilateral L5-S1 transforaminal epidural steroid injections Pre-Op/Pre-Procedure Diagnosis: Lumbar spinal stenosis with radiculopathy Post-Op Diagnosis: same SUBJECTIVE: Irena Peraza is a 78 year old male, who presents to the [facility] surgery center for a bilateral L5-S1 transforaminal epidural steroid injection. 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 Pain is located left worse than right low back. Pain is worse for first couple hours of the morning and with certain movements during the day. He notes numbness in the toes on the left foot. Pain is currently 8/10. I have reviewed the nurses notes and am aware of the patient's history. OBJECTIVE: Vital signs are documented in the paper chart prior to and throughout the procedure. INFORMED CONSENT: Risks, benefits, alternatives and personnel discussed with patient who consents to proceed. A formal sign in and timeout with team members and patient present were performed prior to procedure start/delivery of medication. PROCEDURE: Procedure: Bilateral L5-S1 Transforaminal Epidural Steroid Injection Irena Peraza was transferred to the Block Room. Time out was performed. After placement of routine monitors (blood pressure, pulse oximetry, and heart rate monitored by dedicated nurse), the procedure was performed in the usual manner. Anesthesia: Local only Start time: 1045 Stop time: 1056 Fluoroscopy time: 39 seconds Estimated blood loss: none Level: bilateral L5-S1 Technique: Patient positioned prone. Procedure area was prepped with Betadine and draped with sterile coverings. An oblique approach was used with C-arm guidance. The skin was anesthetized with 1% lidocaine. A #22 gauge short-bevel spinal needle was inserted to the proper location within the intervertebral foramen using intermittent fluoroscopy. Position was confirmed with iohexol contrast under live fluoroscopy. Needle position was verified in two views and epidurogram was visualized and recorded. 7.5 mg of dexamethasone and 1.25 cc of lidocaine 1% was injected per side. The spinal needle was then removed. Adequate hemostasis was obtained at the needle puncture site. The patient's back was cleaned and a sterile dressing was applied. Patient tolerated the procedure well and was taken conscious and in stable condition to the recovery room for observation. No complications as a result of this procedure. Post procedure precautions and instructions were reviewed with the patient who verbalized understanding. I/primary surgeon/proceduralist performed the procedure alone. No complications were encountered. Estimated blood loss: none Specimens: none Implanted devices: none Drains: none Post procedure physical exam unchanged from pre procedure. Significant findings: Cephalad 20 for right, 25 for left Oblique 25 right Oblique 20 left ASSESSMENT: Pre Procedure diagnosis: Lumbar spinal stenosis with radiculopathy Post-Procedure diagnosis: same Pre Procedure Pain Level: same as above Post Procedure Pain Level: as documented in nursing notes and paper chart Purposeful response to verbal or tactile stimulation: Yes PLAN: Post-procedure instructions reviewed with patient. Patient is to complete post-procedure pain diary and follow up with the ordering provider. Patient is to contact our office with any question or if any side effects are noted. Irena Peraza was transferred to the recovery room and is to be discharged home in stable condition. DO Kajal Garcia [facility] Kassie 12-15-2023 [facility] Telephone (SPNMMN) IRENA PERAZA ([id number]) 1945 M Date Time Provider Department 12/15/23 ALPA RAM SPNMMN During your visit today, we recorded the following information about you: Boubacar Young LPN 12/15/2023 9:17 AM Signed Attempted to reach patient via telephone for pre-procedure instructions regarding procedure with Dr. Ram on 12/20/2023 at contact number [phone], patient unable to talk on phone at this time. Left office number on [employer]. SodaHead message sent with pre-procedure guidelines for injection. Allergies As of Date: 12/15/2023 (No Known Allergies) Date Reviewed: 11/17/2023 Reviewed by: Rosa Elena Joshi, BEN - Fully Assessed Reason for Visit: Preparations For Procedures [899] Cmt: Pre-injection instructions for 12/20/2023 Prescriptions as of 12/15/2023 - pregabalin (LYRICA) 50 mg capsule Take 1 capsule by mouth two times a day for 30 days. - furosemide (LASIX) 20 mg tablet Take 1 tablet by mouth once daily. - atenolol (TENORMIN) 50 mg tablet Take 1 tablet by mouth once daily. - dofetilide (TIKOSYN) 500 mcg capsule Take 1 capsule by mouth two times a day. - omega-3/dha/epa/fish oil (OMEGA-3 ORAL) Take by mouth. - atorvastatin (LIPITOR) 40 mg tablet take 1 tablet by mouth once daily - acetaminophen 650 mg CR tablet Every 12 hours - amoxicillin (AMOXIL) 500 mg capsule TAKE 2 CAPSULES BY MOUTH now then TAKE 1 CAPSULE BY MOUTH EVERY 6 HOURS UNTIL GONE - ketoconazole (NIZORAL) 2 % cream - DULoxetine (CYMBALTA) 60 mg capsule Take 1 capsule by mouth every afternoon. - fluticasone-vilantero l (BREO ELLIPTA) 100-25 mcg/dose inhaler INHALE 1 PUFF BY MOUTH DAILY - omega-3 acid ethyl esters (LOVAZA) 1 gram capsule Take 1,000 mg by mouth. - ADVAIR DISKUS 100-50 mcg/dose inhaler Inhale as instructed two times a day. - tolterodine ER (DETROL LA) 4 mg 24 hr capsule Take 4 mg by mouth once daily. - aspirin, enteric coated (ECOTRIN LOW STRENGTH) 81 mg EC tablet Take 1 tablet by mouth once daily. - Fenofibrate (LOFIBRA) 160 mg tablet TAKE 1 TABLET ONCE DAILY - cholecalciferol, vitamin D3, (VITAMIN D3 ORAL) Take by mouth. - magnesium oxide (MAG-OX) 400 mg (241.3 mg magnesium) tablet Take 1 tablet by mouth once daily. - omeprazole (PRILOSEC) 40 mg capsule Take 40 mg by mouth once daily. - rOPINIRole (REQUIP) 1 mg tablet Take 1 tablet by mouth daily at bedtime. - montelukast (SINGULAIR) 10 mg tablet montelukast 10 mg tablet - allopurinol (ZYLOPRIM) 100 mg tablet Take 100 mg by mouth once daily. - PROCTOZONE-HC 2.5 % rectal cream APPLY TO THE AFFECTED AREA(S) 2-4 times daily - fluticasone (FLONASE) 50 mcg/actuation nasal spray Use 1 [place] in each nostril once daily. - coenzyme Q10 100 mg cap Take 100 mg by mouth once daily. - albuterol HFA (PROAIR HFA) 90 mcg/actuation inhaler Inhale 2 Puffs as instructed every 6 hours as needed. - Glucosamine-Chondroit -Vit C-Mn 500-400 mg cap Take 1 capsule by mouth twice daily. Meds Comments as of 09/01/2016: Omeprazole is taken prn Problem List As Of Date 12/15/2023 Noted Resolved PAF (paroxysmal atrial fibrillation) ([facility]) [I48* Former smoker [Z87.891] Obstructive lung disease [J44.9] Hyperlipemia [E78.5] PUD (peptic ulcer disease) [K27.9] GERD (gastroesophageal reflux disease) [K21.9] Carpal tunnel syndrome [G56.00] Hx of neck disorder [Z87.39] Rotator cuff tear [M75.100] Arthritis [M19.90] Depression [F32.A] Alcohol use LPRD (laryngopharyngeal reflux disease) [K21.9] 12/30/2011 Chronic throat clearing [R09.89] 12/30/2011 Biceps rupture, proximal [S46.119A] 05/29/2015 Contracture of shoulder [M24.519] 05/29/2015 Rotator cuff tear arthropathy [M75.100, M12.819]05/29/2015 Complete tear of left rotator cuff [M75.122] 05/29/2015 Melanoma ([facility]) [C43.9] 07/23/2015 HTN (hypertension), benign [I10] 07/23/2015 Cervical spine pain [M54.2] Osteoarthritis [M19.90] 08/06/2015 Limitation of joint motion of shoulder [M25.619]08/20/2015 Acute on chronic diastolic congestive heart win*10/31/2015 Chronic diastolic congestive heart failure (HCC*12/19/2015 Right shoulder pain [M25.511] 09/21/2016 Stiffness of shoulder joint [M25.619] 09/21/2016 Weakness of shoulder [R29.898] 09/21/2016 Obesity, Class I, BMI 30-34.9 [E66.9] 01/03/2018 Persistent atrial fibrillation (HCC) [I48.19] 07/28/2018 Visit for monitoring Tikosyn therapy [Z51.81, Z*09/06/2018 Gastrointestinal hemorrhage [K92.2] 05/18/2022 IRB 21-1031 WATCHAMAN FLX Real World Evidence (*05/19/2022 Atrial fibrillation (HCC) [I48.91] 05/19/2022 Low back pain, unspecified [M54.50] 01/12/2022 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*09/20/2023 Encounter Status:Closed by BOUBACAR YOUNG on 12/15/23 [facility] CNOVon 11-17-2023 CNOV Office Visit (CARDMN ) IRENA PERAZA ([id number]) 1945 Date Time Provider Department 11/17/23 4:45 PM KAYLAH KEMP CARDMN During your visit today, we recorded the following information about you: Pulse Blood pressure Weight Height 70/minute 127/75 97.5 kg 1.778 m Kaylah Kemp MD 11/17/2023 4:59 PM Signed [facility] [place] [facility] Department of Cardiovascular Medicine SECTION OF CARDIAC PACING and ELECTROPHYSIOLOGY OUTPATIENT VISIT DATE November 17, 2023 OUTPATIENT VISIT TYPE ESTABLISHED PRIMARY CARE PHYSICIAN: [place] [address] CHIEF COMPLAINT: AF s/p Watchman HISTORY OF PRESENT ILLNESS/ NURSING INTAKE HISTORY: Mr. Peraza is a 78 year old male who presents today for follow-up visit for atrial fibrillation, s/p Watchman 05/19/22. He has a history of persistent atrial fibrillation on dofetilide ([facility] 06/2021), GI bleed, CAD, GERD, HTN, HLD. He is s/p Watchman implantation with Dr. Kemp on 05/19/2022. In November 2021, he was diagnosed with anemia and GI bleed. He received 4 units of PRBC and iron infusions. EGD, tagged red blood cell GI study and capsule endoscopy were done and failed to find a source of bleeding. Colonoscopy a few months before the bleed was negative for abnormalities. Eliquis was discontinued 11/2021. He is s/p Watchman implant 05/19/22. He was last seen in office 09/14/22. YOGESH at that time revealed well-seated Watchman without leak. He continues on dofetilide and aspirin. YOGESH today shows no kathleen-device leak. He reports doing well. He denies chest pain, palpitations, SOB, lightheadedness or syncope. He reports his last transfusion was about one month ago, denies any signs of bleeding. He continues to take aspirin. CHADS2-Vasc Score Breakdown 5 Total Score 2 Age >= 75 years old 1 History of CHF 1 History of hypertension 1 History of vascular disease PAST MEDICAL HISTORY Diagnosis Date Arthritis CAD (coronary artery disease) 03/26/2013 40-50% mid LAD Carpal tunnel syndrome Cervical spine pain COPD (chronic obstructive pulmonary disease) (HCC) Depression Diastolic heart failure (HCC) GERD (gastroesophageal reflux disease) HTN (hypertension), benign patient denies this Hypercholesterolemia Hyperlipemia Left atrial dilatation Melanoma (HCC) 2012 left breast melanoma s/p surgery. Obstructive lung disease (HCC) PAF (paroxysmal atrial fibrillation) (HCC) 2003 s/p ablation 2003 PUD (peptic ulcer disease) remote RLS (restless legs syndrome) Rotator cuff tear x2 each shoulder PAST SURGICAL HISTORY Procedure Laterality Date APPENDECTOMY HX BACK SURGERY HX L5, S1 removed CARDIAC CATH 03/26/13 40-50% disease in mid LAD CARDIOVERSION 11/14/15 CATHETER, ABLATION A-2003 at [facility] HERNIA REPAIR HX 05/2011 left inguinal PAST SURGICAL HISTORY OF skin cancer removed from back, and from leg, nose,; also cyst removed PAST SURGICAL HISTORY OF 2013 Melanoma removed from left breast. PAST SURGICAL HISTORY OF 2012 bilateral cataract removal PAST SURGICAL HISTORY OF Left carpal tunnel release PAST SURGICAL HISTORY OF Right 2017 varicose vein surgery ROTATOR CUFF REPAIR x4 (2 on each shoulder) SHOULDER LEFT OUT PT SURGERY 08/2015 reverse total shoulder TONSILLECTOMY HX SOCIAL HISTORY Social History Tobacco Use Smoking status: Former Packs/day: 1.50 Years: 15.00 Additional pack years: 0.00 Total pack years: 22.50 Types: Cigarettes Quit date: 05/02/1985 Years since quittin.5 Smokeless tobacco: Never Substance Use Topics Alcohol use: Yes Alcohol/week: 10.0 standard drinks of alcohol Types: 10 Standard drinks or equivalent per week Comment: has an occasional drink, previously drank 2-3 per day Drug use: No FAMILY HISTORY Problem Relation Age of Onset other (TB) Mother age 78, Tuberculosis, of natural causes Heart Father s/p AVR Coronary Artery Disease Sister s/p CABG x3 No Known Problems Sister No Known Problems Brother No Known Problems Maternal Grandmother No Known Problems Maternal Grandfather No Known Problems Paternal Grandmother No Known Problems Paternal Grandfather No Known Problems Daughter No Known Problems Daughter No Known Problems Son Heart Grandchild Shone disease; at age 6 days old ALLERGIES: ALLERGIES No Known Allergies MEDICATIONS: pregabalin (LYRICA) 50 mg capsule Take 1 capsule by mouth two times a day for 30 days. furosemide (LASIX) 20 mg tablet Take 1 tablet by mouth once daily. atenolol (TENORMIN) 50 mg tablet Take 1 tablet by mouth once daily. dofetilide (TIKOSYN) 500 mcg capsule Take 1 capsule by mouth two times a day. omega-3/dha/epa/fish oil (OMEGA-3 ORAL) Take by mouth. a (more content not included)... Normal [facility] Office Visit (CAFLMN ) IRENA PERAZA ([id number]) 1945 Maira Date Time Provider Department 11/17/23 2:30 PM TRANSESOPHAGEAL ECHO CARD MAINCAFLMN During your visit today, we recorded the following information about you: Temperature Pulse Respiration Blood pressure 97.7 degrees 69/minute 23/minute 136/80 Barb Avila RN 11/17/2023 3:21 PM Signed AMBULATORY PATIENT EDUCATION TOPIC: SURVIVAL SKILLS: YOGESH READINESS TO LEARN COGNITIVE ABILITY: Alert and oriented MOTIVATION TO LEARN: Eager FAMILY SUPPORT: None - Unavailable/disintere sted INSTRUCTION PROVIDED TO: Patient PATIENT LEARNS BEST BY: Individual Instruction FACTORS AFFECTING LEARNING: None PHYSICAL LIMITATIONS AFFECTING LEARNING: None LEARNING RESPONSE DIAGNOSIS: yogesh METHOD OF INSTRUCTION: Individual instruction Written instruction/Handouts Verbal instruction PATIENT / FAMILY RESPONSE: Verbalizes understanding of: POST-PROCEDURE INSTRUCTIONS-Correct actions to take to reduce post procedure complications PRE-PROCEDURE INSTRUCTIONS-Correct action to take to follow pre-procedure instructions FOLLOW-UP PLAN: Complete - No need for follow-up SUPPLEMENTAL MATERIAL: Post op discharge instructions Post YOGESH instructions given REFERRAL (RECOMMENDATION): None Electronically Signed By Barb Avila RN In Department: CARDIOLOGY Referring Provider: KAYLAH KEMP [[id number]] Allergies As of Date: 11/17/2023 (No Known Allergies) Date Reviewed: 11/17/2023 Reviewed by: Barb Avila RN - Fully Assessed Primary Visit Diagnosis:IRB 21-1031 WATCHAMAN FLX Real World Evidence (WATCH RWE) PI: Dr. Marcos Bermudez [Z00.6] Order(s):[] lidocaine urojet 2 % topical gel (GLYDO)Disp: Rfl: [] benzocaine 20% (TOPEX)Disp: Rfl: [] fentaNYL 50 mcg/mL injection (SUBLIMAZE)Disp: Rfl: [] midazolam (PF) injection (VERSED)Disp: Rfl: Prescriptions as of 11/17/2023 - pregabalin (LYRICA) 50 mg capsule Take 1 capsule by mouth two times a day for 30 days. - furosemide (LASIX) 20 mg tablet Take 1 tablet by mouth once daily. - atenolol (TENORMIN) 50 mg tablet Take 1 tablet by mouth once daily. - dofetilide (TIKOSYN) 500 mcg capsule Take 1 capsule by mouth two times a day. - omega-3/dha/epa/fish oil (OMEGA-3 ORAL) Take by mouth. - atorvastatin (LIPITOR) 40 mg tablet take 1 tablet by mouth once daily - acetaminophen 650 mg CR tablet Every 12 hours - amoxicillin (AMOXIL) 500 mg capsule TAKE 2 CAPSULES BY MOUTH now then TAKE 1 CAPSULE BY MOUTH EVERY 6 HOURS UNTIL GONE - ketoconazole (NIZORAL) 2 % cream - DULoxetine (CYMBALTA) 60 mg capsule Take 1 capsule by mouth every afternoon. - fluticasone-vilantero l (BREO ELLIPTA) 100-25 mcg/dose inhaler INHALE 1 PUFF BY MOUTH DAILY - omega-3 acid ethyl esters (LOVAZA) 1 gram capsule Take 1,000 mg by mouth. - ADVAIR DISKUS 100-50 mcg/dose inhaler Inhale as instructed two times a day. - tolterodine ER (DETROL LA) 4 mg 24 hr capsule Take 4 mg by mouth once daily. - aspirin, enteric coated (ECOTRIN LOW STRENGTH) 81 mg EC tablet Take 1 tablet by mouth once daily. - Fenofibrate (LOFIBRA) 160 mg tablet TAKE 1 TABLET ONCE DAILY - cholecalciferol, vitamin D3, (VITAMIN D3 ORAL) Take by mouth. - magnesium oxide (MAG-OX) 400 mg (241.3 mg magnesium) tablet Take 1 tablet by mouth once daily. - omeprazole (PRILOSEC) 40 mg capsule Take 40 mg by mouth once daily. - rOPINIRole (REQUIP) 1 mg tablet Take 1 tablet by mouth daily at bedtime. - montelukast (SINGULAIR) 10 mg tablet montelukast 10 mg tablet - allopurinol (ZYLOPRIM) 100 mg tablet Take 100 mg by mouth once daily. - PROCTOZONE-HC 2.5 % rectal cream APPLY TO THE AFFECTED AREA(S) 2-4 times daily - fluticasone (FLONASE) 50 mcg/actuation nasal spray Use 1 [place] in each nostril once daily. - coenzyme Q10 100 mg cap Take 100 mg by mouth once daily. - albuterol HFA (PROAIR HFA) 90 mcg/actuation inhaler Inhale 2 Puffs as instructed every 6 hours as needed. - Glucosamine-Chondroit -Vit C-Mn 500-400 mg cap Take 1 capsule by mouth twice daily. Meds Comments as of 09/01/2016: Omeprazole is taken prn Problem List As Of Date 11/17/2023 Noted Resolved PAF (paroxysmal atrial fibrillation) ([facility]) [I48* Former smoker [Z87.891] Obstructive lung disease [J44.9] Hyperlipemia [E78.5] PUD (peptic ulcer disease) [K27.9] GERD (gastroesophageal reflux disease) [K21.9] Carpal tunnel syndrome [G56.00] Hx of neck disorder [Z87.39] Rotator cuff tear [M75.100] Arthritis [M19.90] Depression [F32.A] Alcohol use LPRD (laryngopharyngeal reflux disease) [K21.9] 12/30/2011 Chronic throat clearing [R09.89] 12/30/2011 Biceps rupture, proximal [S46.119A] 05/29/2015 Contracture of shoulder [M24.519] 05/29/2015 Rotator cuff tear arthropathy [M75.100, M12.819]05/29/2015 Complete tear of left rotator cuff [M75.122] 05/29/19 (more content not included)... Normal [facility] ECG COMPLETEon 11-17-2023 ECG COMPLETE Ventricular Rate : 7 0 BPM Atrial Rate : 70 BPM P-R Interval : 212 ms QRS Duration : 100 ms Q-T Interval : 482 ms QTC Calculation(Bazett) : 520 ms Calculated P [place] : 20 degrees Calculated R [place] : -10 degrees Calculated T [place] : 23 degrees SINUS RHYTHM WITH 1ST DEGREE AV BLOCK WITH PREMATURE SUPRAVENTRICULAR COMPLEXES LEFT VENTRICULAR HYPERTROPHY . ( R in aVL , [place] product ) PROLONGED QT INTERVAL OR TU FUSION, CONSIDER HYPOKALEMIA ABNORMAL ECG Confirmed by QUANG WILBURN MD ([id number]) on 11/30/2023 4:32:01 PM NAME : IRENA PERAZA PID : [id number] : 1945 Gender : Male Race : ORD : [id number] Procedure Date : Nov 17 2023 13:41:49 Edit Date : Nov 30 2023 16:32:05 Diagnosis: SINUS RHYTHM WITH 1ST DEGREE AV BLOCK WITH PREMATURE SUPRAVENTRICULAR COMPLEXES LEFT VENTRICULAR HYPERTROPHY . ( R in aVL , [place] product ) PROLONGED QT INTERVAL OR TU FUSION, CONSIDER HYPOKALEMIA ABNORMAL ECG Confirmed by QUANG WILBURN MD ([id number]) on 11/30/2023 4:32:01 PM Test Reason : Location : 314 : J14 J1-4 Overread By : QUANG WILBURN MD Edited By : QUANG WILBURN MD Referred By : KAYLAH KEMP Acquired by : VELIA VALLES [facility] ECHO TRANSESOPHAGEALon 11-16 ECHO TRANSESOPHAGEAL Echocardiography Report: Transesophageal Echo [facility] J1-5 Date of service: 11/17/2023 1:55:06 PM MANAGER Ordering physician: KAYLAH KEMP Indication: Nonsustained atrial fibrillation Technologist: fellow Fellow: Ismael Ying MD Interpreting physician: Dread Aceves MD PATIENT: Name: IRENA PERAZA : 1945 Age: 78 years Gender: M Pre Post Heart rate 72 bpm 72 bpm Blood pressure 172/90 mmHg 125/77 mmHg O2 saturation 98 % 98 % Color Doppler was utilized to interrogate the cardiac valves assessed in this exam. Medications Total Dose Versed 5.00 mg Fentanyl 125.00 mcg Exam performed under moderate sedation with continuous ECG, pulse oximetry and cardiopulmonary monitoring by nursing, overseen by the performing physician(s), for an intraservice time of 15 min. Patient tolerated procedure well; no complications. (Stop Time: 14:51) No specimens collected. No blood loss. The interpreting physician was present for and actively participated in the YOGESH procedure. MEASUREMENTS: Value Normal Ejection Fraction 55 % (visual est.) EF > 52 FINDINGS: LEFT VENTRICLE The left ventricle is normal in size. Left ventricular systolic function is normal. Left ventricular diastolic function was not evaluated. RIGHT VENTRICLE The right ventricle is normal in size. Right ventricular systolic function is normal. LEFT ATRIUM The left atrial cavity is dilated. There is no spontaneous echo contrast noted. There is a left atrial appendage thrombus. A WATCHMAN left atrial appendage closure device has been implanted. There is no kathleen-device leak. RIGHT ATRIUM The right atrial cavity is normal in size. MITRAL VALVE The mitral valve leaflets are structurally normal. Jackson mitral valve. There is trace mitral valve regurgitation. 3D echocardiographic multi-planar reconstruction of the mitral valve was performed to assess anatomy and function. TRICUSPID VALVE The tricuspid valve leaflets are structurally normal. There is trace tricuspid valve regurgitation. AORTIC VALVE There is mild (1+) aortic valve regurgitation. Tricuspid aortic valve. There is mild thickening. There is mild calcification. 3D echocardiographic multi-planar reconstruction of the aortic valve was performed to assess anatomy and function. PULMONIC VALVE There is trace pulmonic valve regurgitation. CONCLUSIONS: - Exam indication: Nonsustained atrial fibrillation - The left ventricle is normal in size. Left ventricular systolic function is normal. EF = 55 5% (visual est.) - The right ventricle is normal in size. Right ventricular systolic function is normal. - The left atrial cavity is dilated. There is a Watchman FLX (#27) device in the AGUS. There is clot behind the Watchman device. There is no kathleen-device leak. - Exam was compared with the prior transesophageal echocardiographic exam performed on 09/14/22. similar findings * * * Final * * * [employer] : [id number] Normal [facility] NURSING PROGon 11-17-2023 NURSING PROG HNO ID: [id number] Author: BARB AVILA RN Service: ? Author Type: Registered Nurse Type: Nursing Progress Note Filed: 11/17/2023 15:21 Note Text: AMBULATORY PATIENT EDUCATION TOPIC: SURVIVAL SKILLS: YOGESH READINESS TO LEARN COGNITIVE ABILITY: Alert and oriented MOTIVATION TO LEARN: Eager FAMILY SUPPORT: None - Unavailable/disintere sted INSTRUCTION PROVIDED TO: Patient PATIENT LEARNS BEST BY: Individual Instruction FACTORS AFFECTING LEARNING: None PHYSICAL LIMITATIONS AFFECTING LEARNING: None LEARNING RESPONSE DIAGNOSIS: yogesh METHOD OF INSTRUCTION: Individual instruction Written instruction/Handouts Verbal instruction PATIENT / FAMILY RESPONSE: Verbalizes understanding of: POST-PROCEDURE INSTRUCTIONS-Correct actions to take to reduce post procedure complications PRE-PROCEDURE INSTRUCTIONS-Correct action to take to follow pre-procedure instructions FOLLOW-UP PLAN: Complete - No need for follow-up SUPPLEMENTAL MATERIAL: Post op discharge instructions Post YOGESH instructions given REFERRAL (RECOMMENDATION): None Electronically Signed By Barb Avila RN In Department: CARDIOLOGY Normal [facility] Kassie 11-16-2023 C[facility] IRENA PERAZA ([id number]) 1945 M Date Time Provider Department 11/16/23 ZAHIRA PIÑA During your visit today, we recorded the following information about you: Allergies As of Date: 11/16/2023 (No Known Allergies) Date Reviewed: 11/11/2023 Reviewed by: Ginna Castillo MA - Fully Assessed Prescriptions as of 11/16/2023 - pregabalin (LYRICA) 50 mg capsule Take 1 capsule by mouth two times a day for 30 days. - furosemide (LASIX) 20 mg tablet Take 1 tablet by mouth once daily. - atenolol (TENORMIN) 50 mg tablet Take 1 tablet by mouth once daily. - dofetilide (TIKOSYN) 500 mcg capsule Take 1 capsule by mouth two times a day. - omega-3/dha/epa/fish oil (OMEGA-3 ORAL) Take by mouth. - atorvastatin (LIPITOR) 40 mg tablet take 1 tablet by mouth once daily - acetaminophen 650 mg CR tablet Every 12 hours - amoxicillin (AMOXIL) 500 mg capsule TAKE 2 CAPSULES BY MOUTH now then TAKE 1 CAPSULE BY MOUTH EVERY 6 HOURS UNTIL GONE - ketoconazole (NIZORAL) 2 % cream - DULoxetine (CYMBALTA) 60 mg capsule Take 1 capsule by mouth every afternoon. - fluticasone-vilantero l (BREO ELLIPTA) 100-25 mcg/dose inhaler INHALE 1 PUFF BY MOUTH DAILY - omega-3 acid ethyl esters (LOVAZA) 1 gram capsule Take 1,000 mg by mouth. - ADVAIR DISKUS 100-50 mcg/dose inhaler Inhale as instructed two times a day. - tolterodine ER (DETROL LA) 4 mg 24 hr capsule Take 4 mg by mouth once daily. - aspirin, enteric coated (ECOTRIN LOW STRENGTH) 81 mg EC tablet Take 1 tablet by mouth once daily. - Fenofibrate (LOFIBRA) 160 mg tablet TAKE 1 TABLET ONCE DAILY - cholecalciferol, vitamin D3, (VITAMIN D3 ORAL) Take by mouth. - magnesium oxide (MAG-OX) 400 mg (241.3 mg magnesium) tablet Take 1 tablet by mouth once daily. - omeprazole (PRILOSEC) 40 mg capsule Take 40 mg by mouth once daily. - rOPINIRole (REQUIP) 1 mg tablet Take 1 tablet by mouth daily at bedtime. - montelukast (SINGULAIR) 10 mg tablet montelukast 10 mg tablet - allopurinol (ZYLOPRIM) 100 mg tablet Take 100 mg by mouth once daily. - PROCTOZONE-HC 2.5 % rectal cream APPLY TO THE AFFECTED AREA(S) 2-4 times daily - fluticasone (FLONASE) 50 mcg/actuation nasal spray Use 1 [place] in each nostril once daily. - coenzyme Q10 100 mg cap Take 100 mg by mouth once daily. - albuterol HFA (PROAIR HFA) 90 mcg/actuation inhaler Inhale 2 Puffs as instructed every 6 hours as needed. - Glucosamine-Chondroit -Vit C-Mn 500-400 mg cap Take 1 capsule by mouth twice daily. Meds Comments as of 09/01/2016: Omeprazole is taken prn Problem List As Of Date 11/16/2023 Noted Resolved PAF (paroxysmal atrial fibrillation) ([facility]) [I48* Former smoker [Z87.891] Obstructive lung disease [J44.9] Hyperlipemia [E78.5] PUD (peptic ulcer disease) [K27.9] GERD (gastroesophageal reflux disease) [K21.9] Carpal tunnel syndrome [G56.00] Hx of neck disorder [Z87.39] Rotator cuff tear [M75.100] Arthritis [M19.90] Depression [F32.A] Alcohol use LPRD (laryngopharyngeal reflux disease) [K21.9] 12/30/2011 Chronic throat clearing [R09.89] 12/30/2011 Biceps rupture, proximal [S46.119A] 05/29/2015 Contracture of shoulder [M24.519] 05/29/2015 Rotator cuff tear arthropathy [M75.100, M12.819]05/29/2015 Complete tear of left rotator cuff [M75.122] 05/29/2015 Melanoma ([facility]) [C43.9] 07/23/2015 HTN (hypertension), benign [I10] 07/23/2015 Cervical spine pain [M54.2] Osteoarthritis [M19.90] 08/06/2015 Limitation of joint motion of shoulder [M25.619]08/20/2015 Acute on chronic diastolic congestive heart win*10/31/2015 Chronic diastolic congestive heart failure (HCC*12/19/2015 Right shoulder pain [M25.511] 09/21/2016 Stiffness of shoulder joint [M25.619] 09/21/2016 Weakness of shoulder [R29.898] 09/21/2016 Obesity, Class I, BMI 30-34.9 [E66.9] 01/03/2018 Persistent atrial fibrillation (HCC) [I48.19] 07/28/2018 Visit for monitoring Tikosyn therapy [Z51.81, Z*09/06/2018 Gastrointestinal hemorrhage [K92.2] 05/18/2022 IRB 21-1031 WATCHAMAN FLX Real World Evidence (*05/19/2022 Atrial fibrillation (HCC) [I48.91] 05/19/2022 Low back pain, unspecified [M54.50] 01/12/2022 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*09/20/2023 Encounter Status:Closed by ZAHIRA PIÑA on 11/16/23 Normal [facility] CNOVon 11-11-2023 CNOV Office Visit (SPMESH ) IRENA PERAZA ([id number]) 1945 M Date Time Provider Department 11/11/23 10:30 AM ALPA RAM During your visit today, we recorded the following information about you: Temperature Pulse Blood pressure Weight 97.7 degrees 72/minute 138/89 97.7 kg Height 1.778 m Alpa Ram DO 12/01/2023 12:51 PM Signed [facility] - Medical Spine Established Patient SUBJECTIVE HISTORY OF PRESENT ILLNESS: Irena Peraza is a 78 year old male who presents for f/u of low back pain. Last visit: Discontinue Gabapentin, start Lyrica, BL L5-S1 TFESI ordered, cont PT HEP as tolerated. Patient underwent BL L5-S1 TFESI and had 100% relief of all related pain for 2 weeks, but then the pain began returning and is now down to 20% relief for the low back, but he continues to have significant relief in the legs. Low back pain is midline lumbosacral region. He does still get intermittent radiating pain down the LLE posteriorly to the foot, lasts 5-30 seconds. Gets this much less often in the RLE. This radiating type pain is less frequent and less severe since the injections, it was 7-10/10 prior and is now 2-3/10 typically, occasionally up to 5/10. Pain is not as bothersome in the buttocks now. Gets numbness in the left foot starting his morning, less in right foot. Has not had any recent knee buckling type feeling as a result of pain. Pain is now down to 1/10 in the low back currently while sitting, but gets up to 3-6/10 intermittently with movement throughout the day. He is taking Lyrica 50 mg TID. He has not directly noted side effects, but does not he feels fatigue and lack of energy/motivation. He notes he has a lot to do, but feels like he chooses to take naps and avoid his tasks too often. Initial visit 06/22/23: Reports low back pain for at least 30+ years, had L5-S1 discectomy in . Pain fluctuates on and off for a long time. Recently says his pain is now in the low back and buttock, some along the sacral region as well, worse with standing. Worst pain is midline lumbosacral region. Reports tingling and pain down the left > right leg, down the posterior thigh and leg, all the way to the foot. Denies weakness. Denies bowel/bladder incontinence or saddle anesthesia. The pain is currently 3/10. The pain can get to 8/10 at the highest. 08/29/23: Patient has attended PT with little relief. With PT he has been able to find positions to bring the pain down, but with movement or certain positions he continues to have pain. Taking Gabapentin with some benefit, but causes dry mouth. He continues to have pain in the lumbosacral back midline, like a knife. He gets radiating pain and numbness down the LLE posteriorly to the foot. Significant numbness left foot diffusely when taking a shower. Less numbness in right foot. Sometimes feels like legs might buckle with pain. Pain is 3-4/10 while sitting, but with movement it can go up to 10/10, described as a bolt of lightning . PAIN EVALUATION 11/09/2023 1437 Pain Level: 7 Pain Location: Abdomen-Left Lower Quadrant Description: Numbness;Radiating;Sh ashok Duration Units: Minutes Frequency: Intermittent Intervention/Comfort measure: Reposition;Massage Comments: lower back then down left leg Pain Radiation: As above Aggravating Factors: Standing, leaning forward Transfers Alleviating Factors: Stretching Sitting Child's pose Pain Ratio: midline lumbosacral back Current Treatment: Medications Tylenol 650mg 2 pills PRN Cymbalta 60mg Gabapentin 300 mg TID - mild benefit, causing dry mouth and mild increase in chronic BLE edema Therapies PT HEP 3 times per week PT: [facility], Rachell Gilliam PT, 06/28-08/26/23, 8 visits, discharged by therapist due to no progress. PT reports sharp pain w/ movement b/w static postures indicating spinal instability. Pain w/ transfers up to 8-9/10, subsides after 30-60 seconds down to 4/10. Positions are variable, prone postures sometimes relieve, sometimes worsen. Laying prone w/ pillow under hips is consistent, but transferring to prone can be provoking. Sxs include central back pain, n/t thighs, LLE down to foot, occasionally toes. Pain with initial extension then improves w/ repeat, tolerates prone press up minimal pain and no peripheralization. Prior Treatment: Medications none Therapies Acupuncture for the neck Prior spine interventions: -09/20/23 Dr. Ram: ALFREDO L5-S1 TFESI - 100% relief of all related pain for 2 weeks, on 11/11/23 reported low back pain remains 20% improved with pain ranging 1-6/10, while LE pain is now 2-3/10, at worst 5/10, compared to -10 before injections. -RFA he thinks was done in the neck, maybe 5 years ago at [facility] -4-5 years ago (more content not included)... Normal [facility] Ambulatory Visit Summaryon 0 11-01-2023 Ambulatory Visit Summary Ambulatory Visit Summary IRENA PERAZA :1945 Visit Date:11/01/2023 Ambulatory Visit Instructions Your Diagnosis Impotence Urge incontinence BPH with urinary obstruction Elevated PSA Your Care Team Attending Physician - ALLAN JARVIS, Nghia Elizabeth Primary Care Physician - Scarlett Gaviria CNP This Is Your Medications List Contact prescribing physician if questions or concerns allopurinol (allopurinol 100 mg Tab) aspirin atenolol atorvastatin (Lipitor 40 mg Tab) budesonide-formoterol (Symbicort 80/4.5 inhalation aerosol with adapter) calcium citrate calcium-vitamin D chondroitin-glucosami ne (Chondroitin-Glucosam ine) dofetilide (Tikosyn 500 mcg oral capsule) duloxetine (duloxetine 30 mg Cap-DR) fenofibrate (fenofibrate 160 mg oral tablet) fluticasone (fluticasone HFA 44 mcg/inh Inhaler) fluticasone nasal (Flonase) gabapentin (gabapentin 300 mg Cap) montelukast (montelukast 10 mg Tab) omega-3 polyunsaturated fatty acids (Lovaza) omeprazole (omeprazole 40 mg Cap-EC) pregabalin (pregabalin 50 mg Cap) ropinirole (Requip 3 mg Tab) tizanidine (tiZANidine 4 mg Tab) tolterodine (tolterodine 4 mg Cap-ER) ubiquinone (CoQ10) vardenafil (Levitra 20 mg Tab) Procedures Performed Colonoscopy (07/27/2021), Bunionectomy (07/09/2021), Arthrocentesis, aspiration and/or injection, small joint or bursa (eg, fingers, toes); without ultrasound guidance (06/03/2021), Colonoscopy, flexible; with removal of tumor(s), polyp(s), or other lesion(s) by snare technique (12/22/2020), Epidural injection of cervical spine using fluoroscopic guidance (10/20/2020), Radiofrequency ablation of medial branch of lumbar nerve using fluoroscopic guidance (07/28/2020), Injection of facet joint using fluoroscopic guidance (07/08/2020), Injection of facet joint using fluoroscopic guidance (06/10/2020), Transurethral insertion of prostatic urethral lift implant (09/27/2018), Cystoscopy (08/30/2018), Arthrodesis of foot (05/19/2017), Carpal tunnel release (03/30/2017), Left carpal tunnel release (07/15/2016), EVLT RGSV, phleb. right leg (04/07/2016), Radiofrequency denervation of spinal facet joint of cervical vertebra (01/19/2016), Shoulder replacement (08/06/2015), Injection of facet joint using fluoroscopic guidance (05/19/2015), cervica medial branch block (04/04/2015), Transrectal biopsy of prostate using ultrasound (US) guidance (07/03/2014), skin lesion of left chest (melanoma) (2012), Lumbar discectomy (08/1994), Appendectomy, Cardiac ablation using fluoroscopy guidance, Colonoscopy, Colonoscopy, EGD, Excision of basal cell carcinoma, Hammer toe operation, Hernia, AGUS - Plication of left atrial appendage, Radiofrequency ablation of medial branch of cervical nerve using fluoroscopic guidance, Rotator cuff repair, Tonsillectomy. Discharge Vitals Temperature (Temporal Artery) 36.6 ?C Heart Rate (Peripheral) 74 Respiratory Rate 16 Blood Pressure 122/76 Height 117 cm Height 46 in Weight 97.5 kg Weight 214.5 lb BMI 71.23 What to do next Scheduled Follow-Up Appointments Tuesday 1:45 PM EST With: ALLAN JARVIS, Nghia Elizabeth Where: [facility] Urology Office/Clinic Noteon 11-01-2023 Urology Office/Clinic Note Urology Office/Clinic Note Chief Complaint 6 month w/ PSA HPI Staff Irena is a 78 y.o. male here for 8 month w/ PSA. Previous Dx: BPH w/ urinary obstruction, elevated PSA, enlarged prostate, feeling of incomplete bladder emptying, frequency of urination, impotence, microscopic hematuria, mixed incontinence, nocturia, urinary urgency. PSA: 10/28/2023- 3.8 & 21.1 % 01/28/23 - 2.6 & 28% 07/15/22 - 1.79 12/22/20 - 4.1 & 29% 05/26/20 - 39 & 28% Dysuria: denies Incomplete bladder emptying: denies Hematuria: denies visible blood Frequency: denies Urgency: yes Nocturia: once a night Stream: denies hesitancy, steady stream Leaking: denies Post void dripping: denies Wearing pads/ Depends: denies Urge incontinence: denies Stress incontinence: sometimes when coughing and sneezing Incontinence without Sensory Awareness: denies Abdominal pain: denies Flank pain: denies Sexual complaints: _ History of Present Illness Tests reviewed: reviewed UA, PSA I have reviewed the previous health record information and history for this patient from Dr. Roberson. I have reviewed and verified the staff HPI to be accurate for this encounter. Review of Systems PHQ Score Initial Depression Screen Score: 0 SCORE ROS - Provider Constitutional: denies weight loss, denies hot flashes. Eyes: denies eye problems. Gastrointestinal: denies nausea, denies vomiting. Cardiovascular: denies chest pain or angina. Integumentary: no dryness Musculoskeletal: denies musculoskeletal symptoms. ENMT: denies otolaryngeal symptoms. Respiratory: no shortness of breath. Heme/Lymph: denies easy bleeding tendency, denies easy bruising tendency. Psychiatric: no confusion, no anxiety. Genitourinary: See HPI. Physical Exam Vitals & Measurements T: 36.6 ?C(Temporal Artery) HR: 74(Peripheral) RR: 16 BP: 122/76 SpO2: 94% HT: 46 in HT: 117 cm WT: 97.5 kg WT: 214.5 lb BMI: 71.23 General Appearance: alert, no distress, well nourished, well developed male. Assessment/Plan 1. Impotence (N52.9: Male erectile dysfunction, unspecified) Taking Levitra 20mg prn. Pt states he has had worsening ED since Rezum. Educated pt this procedure does not affect erections but does affect ejaculation. States his main complaint is difficulty achieving an erection. Has tried Viagra and Cialis w minimal improvement. Discussed alternative options for ED, include erection pumps, MUSE intraurethral pellet, intracorporal injection therapy, and surgical options. Recommended pt to try a penile ring and then can consider ICI. Pt agrees. -Cont Levitra 20mg prn, try with penile ring -Call if wishes to proceed with ICI 2. Urge incontinence (N39.41: Urge incontinence) Has failed VESIcare. Taking Tolterodine 4mg qd. Admits to severe urgency. Drinks cups of coffee per day. Denies sxs being more bothersome in the mornings. Discussed with the patient that limiting foods and fluids which are irritating to the bladder may help decrease urinary symptoms. If medications have been given, avoiding these irritants may allow the medications to work better. -Cont Tolterodine wo changes -Avoid bladder irritants 3. BPH with urinary obstruction (N40.1: Benign prostatic hyperplasia with lower urinary tract symptoms) S/p UroLift 09/27/18 by RWR. S/p REZUM 02/04/21 by RWR. IPSS 10 (12). Not currently taking any BPH meds. Good stream. Not voicing any urinary habit complaints. -Cont sx monitoring 4. Elevated PSA (R97.20: Elevated prostate specific antigen [PSA]) PSA: 05/26/20 - 3.9 & 28% 12/22/20 - 4.1 & 29% 07/15/22 - 1.79 01/28/23 - 2.6 & 28% 10/28/23 - 3.8 & 21.1% S/p TRUS/bx 07/13/14. CLAYTON 02/02/23: 30g, benign. PSA has increased from prior but has been up to 4.1 previously. Discussed elevation may be related to inflammation/infectio n vs malignancy. Will continue to monitor level for now. -PSA FT in 6 mos Overall this patient still has a an IPSS score of 12 despite minimally invasive treatment intervention by Dr. Cook. He is not interested in further intervention. The majority of our time today was spent discussing ED and possible ways to treat. This is well-documented above. He will start with an erection ring and call if he decides to proceed with ICI as noted. Due to the PSA fluctuation I do not feel that a biopsy is indicated at this time. I would continue recommending the intermittent PSA checks. Will see him back in 6 months Portions of this record may have been created with voice recognition artificial intelligence software, specifically [employer], [employer] and or V[employer]. Substitutions may have occurred due to the inherent limitations of voice recognition and artificial intelligence software. Follow-up With When Contact Information Nghia ROBERSON MD, URL [address] [facility] [address] [place] [address]- Additional Instructions: 6 mos w/ PSA Patient Education Erectile Dysfunction I, paula Jon (more content not included)... Normal [facility] Comment on above: Result Comment: Elec tronically Signed By: Nghia ROBERSON MD\.br\Date and Time Signed: 11/01/23 10:56 EDT\.br\Electronically Co-Signed By: Julissa Hobbs\.br\Date and Time Co-Signed: 11/01/23 10:52 EDT CHEMISTRYOrdered By: SYSTEM SYSTEM on 10-28-2023 Free PSA [Mass/Vol] 0.8 ng/mL Invalid Interpretation Code [facility] Comment on above: Interpretive Data: T he concentration of free PSA and total PSA determined with assays from different manufacturers can vary due to differences in assay methods and specificity. Values obtained with different label tacker's assays cannot be used interchangeably. The methodology used to obtain this result was chemiluminescence using Júnior Rick's Access Hybritech PSA reagent and Access Hybritech free PSA reagent. Free PSA/Total PSA [Mass fraction] 21.1 % Low >=25.0% [facility] Prostate specific Ag [Mass/Vol] 3.8 ng/mL High 0.1 - 3.5 ng/mL [facility] Comment on above: Interpretive Data: T he concentration of PSA determined by different manufacturers can vary due to differences in assay methods and reagent specificity. Values obtained from different assay methods cannot be used interchangeably. The methodology used for this result was chemiluminescence using Júnior [place]'s Access Hybritech PSA reagent. PSA Free & Totalon Free PSA/Total PSA [Mass fraction] 21.1 % Low >=25.0 [facility] Comment on above: Performed By: #### 1 [id number] #### [facility] [address] [place] [address] Prostate specific Ag [Mass/Vol] 3.8 ng/mL High 0.1-3.5 [facility] Comment on above: Result Comment: The concentration of PSA determined by different manufacturers can vary due to differences in assay methods and reagent specificity. Values obtained from different assay methods cannot be used interchangeably. The methodology used for this result was chemiluminescence using Júnior [place]'s Access Hybritech PSA reagent. Performed By: #### 1 [id number] #### [facility] [address] [place] [address] Free PSA [Mass/Vol] 0.8 ng/mL Invalid Interpretation Code [facility] Comment on above: Result Comment: The concentration of free PSA and total PSA determined with assays from different manufacturers can vary due to differences in assay methods and specificity. Values obtained with different label tacker's assays cannot be used interchangeably. The methodology used to obtain this result was chemiluminescence using Júnior Rick's Access Hybritech PSA reagent and Access Hybritech free PSA reagent. Performed By: #### 1 [id number] #### [facility] [address] [place] [address] Basic metabolic 2000 panelon 10-11-2023 Anion gap [Moles/Vol] 10 mmol/L Normal 8-15 [facility] Comment on above: Order Comment: Speci men Type: BLOOD SPECIMEN Ordering Facility: [facility] Address: [address] [place] [address] Performed By: #### 1 9123-9, 17235-4 #### [facility] CLIA [id number] [address] [place] [address] Calcium [Mass/Vol] 10.2 mg/dL Normal 8.5-10.2 [facility] Comment on above: Order Comment: Speci men Type: BLOOD SPECIMEN Ordering Facility: [facility] Address: [address] [place] [address] Performed By: #### 1 9123-9, 22272-8 #### [facility] CLIA [id number] [address] [place] [address] Chloride [Moles/Vol] 100 mmol/L Normal 98-107 [facility] Comment on above: Order Comment: Speci men Type: BLOOD SPECIMEN Ordering Facility: [facility] Address: [address] [place] [address] Performed By: #### 1 9123-9, 39941-6 #### [facility] CLIA [id number] [address] [place] [address] CO2 [Moles/Vol] 29 mmol/L Normal 22-30 [facility] Comment on above: Order Comment: Speci men Type: BLOOD SPECIMEN Ordering Facility: [facility] Address: [address] [place] [address] Performed By: #### 1 91239, 39505-1 #### [facility] CLIA [id number] [address] [place] [address] Creatinine [Mass/Vol] 1.02 mg/dL Normal 0.73-1.22 [facility] Comment on above: Order Comment: Speci men Type: BLOOD SPECIMEN Ordering Facility: [facility] Address: [address] [place], [place] [address] Performed By: #### 1 91239, 95075-6 #### [facility] CLIA [id number] [address] [place] [address] Creatinine and Glomerular filtration rate.predicted panel (S/P/Bld) 76 mL/min/1.73m??? Normal >=60 [facility] Comment on above: Order Comment: Speci men Type: BLOOD SPECIMEN Ordering Facility: [facility] Address: [address] [place], [place] [address] Result Comment: Celia mated Glomerular Filtration Rate (eGFR) is calculated using the 2020 CKD-EPI creatinine equation. This equation utilizes serum creatinine, sex, and age as parameters. The creatinine assay has traceable calibration to isotope dilution-mass spectrometry. Refer to KDIGO guidelines for clinical interpretation. In patients with unstable renal function, e.g. those with acute kidney injury, the eGFR may not accurately reflect actual GFR. Performed By: #### 1 9123-9, 62304-5 #### [facility] CLIA [id number] [address] [place] [address] Glucose [Mass/Vol] 105 mg/dL High 74-99 [facility] Comment on above: Order Comment: Specjuan barboza Type: BLOOD SPECIMEN Ordering Facility: [facility] Address: [address] [place] [address] Result Comment: The [place] Diabetes Association (ADA) provides guidance for cutoff values for fasting glucose and random glucose. The ADA defines fasting as no caloric intake for at least 8 hours. Fasting plasma glucose results between 100 to 125 mg/dL indicate increased risk for diabetes (prediabetes). Fasting plasma glucose results greater than or equal to 126 mg/dL meet the criteria for diagnosis of diabetes. In the absence of unequivocal hyperglycemia, results should be confirmed by repeat testing. In a patient with classic symptoms of hyperglycemia or hyperglycemic crisis, random plasma glucose results greater than or equal to 200 mg/dL meet the criteria for diagnosis of diabetes. Reference: Standards of Medical Care in Diabetes 2016, [place] Diabetes Association. Diabetes Care. 2016.39(Suppl 1). Performed By: #### 1 9123-9, 42048-2 #### [facility] CLIA [id number] [address] [place] [address] Potassium [Moles/Vol] 4.2 mmol/L Normal 3.7-5.1 [facility] Comment on above: Order Comment: Domenica barboza Type: BLOOD SPECIMEN Ordering Facility: [facility] Address: [address] [place] [address] Performed By: #### 1 9123-9, 62065-2 #### [facility] CLIA [id number] [address] [place] [address] Sodium [Moles/Vol] 139 mmol/L Normal 136-144 [facility] Comment on above: Order Comment: Domenica barboza Type: BLOOD SPECIMEN Ordering Facility: [facility] Address: [address] [place] [address] Performed By: #### 1 9123-9, 15445-8 #### [facility] CLIA [id number] [address] [place] [address] Urea nitrogen [Mass/Vol] 12 mg/dL Normal 9-24 [facility] Comment on above: Order Comment: Speci men Type: BLOOD SPECIMEN Ordering Facility: [facility] Address: [address] [place] [address] Performed By: #### 1 9123-9, 97893-5 #### [facility] CLIA [id number] [address] [place] [address] Magnesium SerPl-mCncon 10-10 Magnesium [Mass/Vol] 1.9 mg/dL Normal 1.7-2.3 [facility] Comment on above: Order Comment: Speci men Type: BLOOD SPECIMEN Ordering Facility: [facility] Address: [address] [place] [address] Performed By: #### 1 9123-9, 40790-0 #### [facility] CLIA [id number] [address] [place] [address] [facility] IRENA PERAZA ([id number]) 1945 M Date Time Provider Department 09/27/23 ALPA RAM [facility] During your visit today, we recorded the following information about you: Tremaine Joseph RN 09/27/2023 10:36 AM Signed Tried to reach patient for post-injection phone call [phone]. Left office number for patient to call back. SodaHead message/questionairre sent regarding post-injection. Tremaine Joseph RN [employer] 10/03/2023 12:43 PM Signed Patient is returning nurse call pertaining to below message, call back [phone] Allergies As of Date: 09/27/2023 (No Known Allergies) Date Reviewed: 09/20/2023 Reviewed by: Farheen Chavez RN - Fully Assessed Reason for Visit: Post injection f/u call [Other] Prescriptions as of 10/03/2023 - pregabalin (LYRICA) 50 mg capsule Take one capsule daily at bedtime for 3 days, then one in the morning and one at night for 3 days. Then increase to one capsule three times daily if tolerating well. Patient is having side effects with Gabapentin. - omega-3/dha/epa/fish oil (OMEGA-3 ORAL) Take by mouth. - atorvastatin (LIPITOR) 40 mg tablet take 1 tablet by mouth once daily - acetaminophen 650 mg CR tablet Every 12 hours - amoxicillin (AMOXIL) 500 mg capsule TAKE 2 CAPSULES BY MOUTH now then TAKE 1 CAPSULE BY MOUTH EVERY 6 HOURS UNTIL GONE - ketoconazole (NIZORAL) 2 % cream - DULoxetine (CYMBALTA) 60 mg capsule Take 1 capsule by mouth every afternoon. - fluticasone-vilantero l (BREO ELLIPTA) 100-25 mcg/dose inhaler INHALE 1 PUFF BY MOUTH DAILY - omega-3 acid ethyl esters (LOVAZA) 1 gram capsule Take 1,000 mg by mouth. - ADVAIR DISKUS 100-50 mcg/dose inhaler Inhale as instructed two times a day. - tolterodine ER (DETROL LA) 4 mg 24 hr capsule Take 4 mg by mouth once daily. - furosemide (LASIX) 20 mg tablet Take 1 tablet by mouth once daily. - atenolol (TENORMIN) 50 mg tablet Take 1 tablet by mouth once daily. - dofetilide (TIKOSYN) 500 mcg capsule Take 1 capsule by mouth twice daily. - aspirin, enteric coated (ECOTRIN LOW STRENGTH) 81 mg EC tablet Take 1 tablet by mouth once daily. - Fenofibrate (LOFIBRA) 160 mg tablet TAKE 1 TABLET ONCE DAILY - cholecalciferol, vitamin D3, (VITAMIN D3 ORAL) Take by mouth. - magnesium oxide (MAG-OX) 400 mg (241.3 mg magnesium) tablet Take 1 tablet by mouth once daily. - omeprazole (PRILOSEC) 40 mg capsule Take 40 mg by mouth once daily. - rOPINIRole (REQUIP) 1 mg tablet Take 1 tablet by mouth daily at bedtime. - montelukast (SINGULAIR) 10 mg tablet montelukast 10 mg tablet - allopurinol (ZYLOPRIM) 100 mg tablet Take 100 mg by mouth once daily. - PROCTOZONE-HC 2.5 % rectal cream APPLY TO THE AFFECTED AREA(S) 2-4 times daily - fluticasone (FLONASE) 50 mcg/actuation nasal spray Use 1 [place] in each nostril once daily. - coenzyme Q10 100 mg cap Take 100 mg by mouth once daily. - albuterol HFA (PROAIR HFA) 90 mcg/actuation inhaler Inhale 2 Puffs as instructed every 6 hours as needed. - Glucosamine-Chondroit -Vit C-Mn 500-400 mg cap Take 1 capsule by mouth twice daily. Meds Comments as of 09/01/2016: Omeprazole is taken prn Problem List As Of Date 09/27/2023 Noted Resolved PAF (paroxysmal atrial fibrillation) ([facility]) [I48* Former smoker [Z87.891] Obstructive lung disease [J44.9] Hyperlipemia [E78.5] PUD (peptic ulcer disease) [K27.9] GERD (gastroesophageal reflux disease) [K21.9] Carpal tunnel syndrome [G56.00] Hx of neck disorder [Z87.39] Rotator cuff tear [M75.100] Arthritis [M19.90] Depression [F32.A] Alcohol use LPRD (laryngopharyngeal reflux disease) [K21.9] 12/30/2011 Chronic throat clearing [R09.89] 12/30/2011 Biceps rupture, proximal [S46.119A] 05/29/2015 Contracture of shoulder [M24.519] 05/29/2015 Rotator cuff tear arthropathy [M75.100, M12.819]05/29/2015 Complete tear of left rotator cuff [M75.122] 05/29/2015 Melanoma ([facility]) [C43.9] 07/23/2015 HTN (hypertension), benign [I10] 07/23/2015 Cervical spine pain [M54.2] Osteoarthritis [M19.90] 08/06/2015 Limitation of joint motion of shoulder [M25.619]08/20/2015 Acute on chronic diastolic congestive heart win*10/31/2015 Chronic diastolic congestive heart failure (HCC*12/19/2015 Right shoulder pain [M25.511] 09/21/2016 Stiffness of shoulder joint [M25.619] 09/21/2016 Weakness of shoulder [R29.898] 09/21/2016 Obesity, Class I, BMI 30-34.9 [E66.9] 01/03/2018 Persistent atrial fibrillation (HCC) [I48.19] 07/28/2018 Visit for monitoring Tikosyn therapy [Z51.81, Z*09/06/2018 Gastrointestinal hemorrhage [K92.2] 05/18/2022 IRB 21-1031 [employer] (*05/19/2022 Atrial fibrillation (HCC) [I48.91] 05/19/2022 Low back pain, unspecified [M54.50] 01/12/2022 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*09/20/2023 (more content not included)... Normal [facility] HISTORY PHYSICALon HISTORY PHYSICAL HNO ID: [id number] Author: MIKHAIL SAAVEDRA APRN.[employer]ER Service: ? Author Type: Nurse Practitioner Type: H&P Filed: 09/20/2023 11:37 Note Text: LOCAL PROCEDURE HISTORY AND PHYSICAL EXAM SERVICE DATE: 09/20/2023 SERVICE TIME: 11:37 AM Provisional Diagnosis/Treatment Plan: Procedure(s) (LRB): INJECTION ANESTHETIC AGENT/STEROID TRANSFORAMINAL EPIDURAL W/ IMAGING GUIDANCE LUMBAR BILATERAL (Bilateral) Subjective HPI: This is a 78 year old year old male who presents with 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athy [M48.061, M54.16] MEDICATIONS: Prior to Admission medications as of 08/29/23 1008 Medication Sig Last Dose Taking pregabalin (LYRICA) 50 mg capsule Take one capsule daily at bedtime for 3 days, then one in the morning and one at night for 3 days. Then increase to one capsule three times daily if tolerating well. Patient is having side effects with Gabapentin. omega-3/dha/epa/fish oil (OMEGA-3 ORAL) Take by mouth. atorvastatin (LIPITOR) 40 mg tablet take 1 tablet by mouth once daily acetaminophen 650 mg CR tablet Every 12 hours amoxicillin (AMOXIL) 500 mg capsule TAKE 2 CAPSULES BY MOUTH now then TAKE 1 CAPSULE BY MOUTH EVERY 6 HOURS UNTIL GONE ketoconazole (NIZORAL) 2 % cream DULoxetine (CYMBALTA) 60 mg capsule Take 1 capsule by mouth every afternoon. fluticasone-vilantero l (BREO ELLIPTA) 100-25 mcg/dose inhaler INHALE 1 PUFF BY MOUTH DAILY omega-3 acid ethyl esters (LOVAZA) 1 gram capsule Take 1,000 mg by mouth. ADVAIR DISKUS 100-50 mcg/dose inhaler Inhale as instructed two times a day. tolterodine ER (DETROL LA) 4 mg 24 hr capsule Take 4 mg by mouth once daily. furosemide (LASIX) 20 mg tablet Take 1 tablet by mouth once daily. atenolol (TENORMIN) 50 mg tablet Take 1 tablet by mouth once daily. dofetilide (TIKOSYN) 500 mcg capsule Take 1 capsule by mouth twice daily. aspirin, enteric coated (ECOTRIN LOW STRENGTH) 81 mg EC tablet Take 1 tablet by mouth once daily. Fenofibrate (LOFIBRA) 160 mg tablet TAKE 1 TABLET ONCE DAILY cholecalciferol, vitamin D3, (VITAMIN D3 ORAL) Take by mouth. magnesium oxide (MAG-OX) 400 mg (241.3 mg magnesium) tablet Take 1 tablet by mouth once daily. omeprazole (PRILOSEC) 40 mg capsule Take 40 mg by mouth once daily. rOPINIRole (REQUIP) 1 mg tablet Take 1 tablet by mouth daily at bedtime. montelukast (SINGULAIR) 10 mg tablet montelukast 10 mg tablet allopurinol (ZYLOPRIM) 100 mg tablet Take 100 mg by mouth once daily. PROCTOZONE-HC 2.5 % rectal cream APPLY TO THE AFFECTED AREA(S) 2-4 times daily fluticasone (FLONASE) 50 mcg/actuation nasal spray Use 1 [place] in each nostril once daily. coenzyme Q10 100 mg cap Take 100 mg by mouth once daily. albuterol HFA (PROAIR HFA) 90 mcg/actuation inhaler Inhale 2 Puffs as instructed every 6 hours as needed. Glucosamine-Chondroit -Vit C-Mn 500-400 mg cap Take 1 capsule by mouth twice daily. ALLERGIES No Known Allergies Objective PHYSICAL EXAM: The remainder of the physical exam is noncontributory. GENERAL: Alert, no distress, cooperative LUNGS: Lungs clear to auscultation, Good diaphragmatic excursion CARDIAC: Normal S1 and S2; no rubs, murmurs, or gallops There were no vitals taken for this visit. PAIN ASSESSMENT: PAIN EVALUATION No data found in the last 1 encounters. Assessment/Plan Active Problems: 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athy [M48.061, M54.16] Medication and Non-Pharmacologic VTE Prophylaxis/Anticoagu lants VTE Prophylaxis: N/A SIGNATURE: Mikhail Saavedra APRN.CNP PATIENT NAME: Irena Peraza DATE: 09/20/2023 TIME: 11:37 AM Normal [facility] OPERATIVE NOon 09-20-2023 OPERATIVE NO HNO ID: [id number] Author: ALPA RAM DO Service: Physical Medicine AND Rehabilitation Author Type: Physician Type: Operative Report Filed: 09/20/2023 12:21 Note Text: PROCEDURE REPORT Surgery/Procedure Date: September 20, 2023 Interventionalist: Alpa Ram DO Procedure(s): Bilateral L5-S1 transforaminal epidural steroid injections Pre-Op/Pre-Procedure Diagnosis: Lumbar spinal stenosis with radiculopathy Post-Op Diagnosis: same SUBJECTIVE: Irena Peraza is a 78 year old male, who presents to the [facility] center for a bilateral L5-S1 transforaminal epidural steroid injection. 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 Pain is midline lumbosacral back, radiates to bilateral buttocks. He gets radiating pain and numbness down the LLE posteriorly to the foot. Less numbness in right foot. Pre-procedure pain level: I have reviewed the nurses notes and am aware of the patient's history. OBJECTIVE: Vital signs are documented in the paper chart prior to and throughout the procedure. INFORMED CONSENT: Risks, benefits, alternatives and personnel discussed with patient who consents to proceed. A formal sign in and timeout with team members and patient present were performed prior to procedure start/delivery of medication. PROCEDURE: Procedure: Bilateral L5-S1 Transforaminal Epidural Steroid Injection IV was established in the upper limb. Irena Peraza was transferred to the Block Room. Time out was performed. After placement of routine monitors (blood pressure, pulse oximetry, and heart rate monitored by dedicated nurse), the procedure was performed in the usual manner. Anesthesia: Local only Start time: 1202 Stop time: 1218 Fluoroscopy time: 46 seconds Estimated blood loss: none Level: bilateral L5-S1 Technique: Patient positioned prone. Procedure area was prepped with Betadine and draped with sterile coverings. An oblique approach was used with C-arm guidance. The skin was anesthetized with 1% lidocaine. A #22 gauge short-bevel spinal needle was inserted to the proper location within the intervertebral foramen using intermittent fluoroscopy. Position was confirmed with iohexol contrast under live fluoroscopy. Needle position was verified in two views and epidurogram was visualized and recorded. 7.5 mg of dexamethasone and 2.25 cc of lidocaine 1% was injected per side. The spinal needle was then removed. Adequate hemostasis was obtained at the needle puncture site. The patient's back was cleaned and a sterile dressing was applied. Patient tolerated the procedure well and was taken conscious and in stable condition to the recovery room for observation. No complications as a result of this procedure. Post procedure precautions and instructions were reviewed with the patient who verbalized understanding. I/primary surgeon/proceduralist performed the procedure alone. No complications were encountered. Estimated blood loss: none Specimens: none Implanted devices: none Drains: none Post procedure physical exam unchanged from pre procedure. Significant findings: Cephalad 20 right, extra 5 degrees on left Oblique 25-30 right Oblique 20 left Narrow space between iliac crest/sacrum and facet joint each side ASSESSMENT: Pre Procedure diagnosis: Lumbar spinal stenosis with radiculopathy Post-Procedure diagnosis: same Pre Procedure Pain Level: same as above Post Procedure Pain Level: as documented in nursing notes and paper chart Purposeful response to verbal or tactile stimulation: Yes PLAN: Post-procedure instructions reviewed with patient. Patient is to complete post-procedure pain diary and follow up with the ordering provider. Patient is to contact our office with any question or if any side effects are noted. Irena Peraza was transferred to the recovery room and is to be discharged home in stable condition. Alpa Ram, Normal [facility] Kassie [facility]-16-20[facility] IRENA PERAZA ([id number]) 1945 M Date Time Provider Department 09/16/23 ANGELI KIMBALL During your visit today, we recorded the following information about you: Chelita Tapia 09/16/2023 10:14 AM Signed Patients insurance [employer] is calling Angeli Kimball MD today to provide update. [employer] contacted this patient today 09/16/23. Patient informed his insurance that per a recommendation from the PCP they increased lasix from 20 mg to 40 mg to due lower leg swelling- per [employer] the increase has helped the patient Please review and advise. Patient has been identified by name and birthdate. Duration of symptoms: unknown-patient not available at time of coronary care unit nurse calling: insurance rep Call patient at: at home and on cell [phone] (home) [phone] (cell) Was an appointment scheduled: No Closing statement: Symptom Call: Thank you for calling [facility], your call is very important. A nurse will call in approximately 2-4 hours during business hours. If this is an emergency, please contact 911. Chelita Tapia Allergies As of Date: 09/16/2023 (No Known Allergies) Date Reviewed: 08/29/2023 Reviewed by: Lila Royal MA - Fully Assessed Reason for Visit: Patient Update [1234] Prescriptions as of 11/01/2023 - furosemide (LASIX) 20 mg tablet Take 1 tablet by mouth once daily. - dofetilide (TIKOSYN) 500 mcg capsule Take 1 capsule by mouth two times a day. - pregabalin (LYRICA) 50 mg capsule Take one capsule daily at bedtime for 3 days, then one in the morning and one at night for 3 days. Then increase to one capsule three times daily if tolerating well. Patient is having side effects with Gabapentin. - omega-3/dha/epa/fish oil (OMEGA-3 ORAL) Take by mouth. - atorvastatin (LIPITOR) 40 mg tablet take 1 tablet by mouth once daily - acetaminophen 650 mg CR tablet Every 12 hours - amoxicillin (AMOXIL) 500 mg capsule TAKE 2 CAPSULES BY MOUTH now then TAKE 1 CAPSULE BY MOUTH EVERY 6 HOURS UNTIL GONE - ketoconazole (NIZORAL) 2 % cream - DULoxetine (CYMBALTA) 60 mg capsule Take 1 capsule by mouth every afternoon. - fluticasone-vilantero l (BREO ELLIPTA) 100-25 mcg/dose inhaler INHALE 1 PUFF BY MOUTH DAILY - omega-3 acid ethyl esters (LOVAZA) 1 gram capsule Take 1,000 mg by mouth. - ADVAIR DISKUS 100-50 mcg/dose inhaler Inhale as instructed two times a day. - tolterodine ER (DETROL LA) 4 mg 24 hr capsule Take 4 mg by mouth once daily. - atenolol (TENORMIN) 50 mg tablet Take 1 tablet by mouth once daily. - aspirin, enteric coated (ECOTRIN LOW STRENGTH) 81 mg EC tablet Take 1 tablet by mouth once daily. - Fenofibrate (LOFIBRA) 160 mg tablet TAKE 1 TABLET ONCE DAILY - cholecalciferol, vitamin D3, (VITAMIN D3 ORAL) Take by mouth. - magnesium oxide (MAG-OX) 400 mg (241.3 mg magnesium) tablet Take 1 tablet by mouth once daily. - omeprazole (PRILOSEC) 40 mg capsule Take 40 mg by mouth once daily. - rOPINIRole (REQUIP) 1 mg tablet Take 1 tablet by mouth daily at bedtime. - montelukast (SINGULAIR) 10 mg tablet montelukast 10 mg tablet - allopurinol (ZYLOPRIM) 100 mg tablet Take 100 mg by mouth once daily. - PROCTOZONE-HC 2.5 % rectal cream APPLY TO THE AFFECTED AREA(S) 2-4 times daily - fluticasone (FLONASE) 50 mcg/actuation nasal spray Use 1 [place] in each nostril once daily. - coenzyme Q10 100 mg cap Take 100 mg by mouth once daily. - albuterol HFA (PROAIR HFA) 90 mcg/actuation inhaler Inhale 2 Puffs as instructed every 6 hours as needed. - Glucosamine-Chondroit -Vit C-Mn 500-400 mg cap Take 1 capsule by mouth twice daily. Meds Comments as of 09/01/2016: Omeprazole is taken prn Problem List As Of Date 09/16/2023 Noted Resolved PAF (paroxysmal atrial fibrillation) ([facility]) [I48* Former smoker [Z87.891] Obstructive lung disease [J44.9] Hyperlipemia [E78.5] PUD (peptic ulcer disease) [K27.9] GERD (gastroesophageal reflux disease) [K21.9] Carpal tunnel syndrome [G56.00] Hx of neck disorder [Z87.39] Rotator cuff tear [M75.100] Arthritis [M19.90] Depression [F32.A] Alcohol use LPRD (laryngopharyngeal reflux disease) [K21.9] 12/30/2011 Chronic throat clearing [R09.89] 12/30/2011 Biceps rupture, proximal [S46.119A] 05/29/2015 Contracture of shoulder [M24.519] 05/29/2015 Rotator cuff tear arthropathy [M75.100, M12.819]05/29/2015 Complete tear of left rotator cuff [M75.122] 05/29/2015 Melanoma (HCC) [C43.9] 07/23/2015 HTN (hypertension), benign [I10] 07/23/2015 Cervical spine pain [M54.2] Osteoarthritis [M19.90] 08/06/2015 Limitation of joint motion of shoulder [M25.619]08/20/2015 Acute on chronic diastolic congestive heart win*10/31/2015 Chronic diastolic congestive heart failure (HCC*12/19/2015 Right shoulder pain [M25.511] 09/21/2016 Stiffness of shoulder joint [M25.619] 09/21/2016 Weakne (more content not included)... Normal [facility] Kassie 09-13-2023 HAYDER Telephone (LENNYMN) IRENA PERAZA ([id number]) 1945 M Date Time Provider Department 09/13[facility] During your visit today, we recorded the following information about you: Tremaine Joseph RN 09/13/2023 2:27 PM Signed Attempted to reach patient via telephone for pre-procedure instructions regarding procedure with Dr. Ram on 09/20/2023 at contact number [phone], patient unable to talk on phone at this time. Left office number on [employer]. [employer] message sent with pre-procedure guidelines for injection. Tremaine Joseph RN Allergies As of Date: 09/13/2023 (No Known Allergies) Date Reviewed: 08/29/2023 Reviewed by: Lila Royal MA - Fully Assessed Reason for Visit: Preparations For Procedures [899] Cmt: Pre injection instructions Prescriptions as of 09/13/2023 - pregabalin (LYRICA) 50 mg capsule Take one capsule daily at bedtime for 3 days, then one in the morning and one at night for 3 days. Then increase to one capsule three times daily if tolerating well. Patient is having side effects with Gabapentin. - omega-3/dha/epa/fish oil (OMEGA-3 ORAL) Take by mouth. - atorvastatin (LIPITOR) 40 mg tablet take 1 tablet by mouth once daily - acetaminophen 650 mg CR tablet Every 12 hours - amoxicillin (AMOXIL) 500 mg capsule TAKE 2 CAPSULES BY MOUTH now then TAKE 1 CAPSULE BY MOUTH EVERY 6 HOURS UNTIL GONE - ketoconazole (NIZORAL) 2 % cream - DULoxetine (CYMBALTA) 60 mg capsule Take 1 capsule by mouth every afternoon. - fluticasone-vilantero l (BREO ELLIPTA) 100-25 mcg/dose inhaler INHALE 1 PUFF BY MOUTH DAILY - omega-3 acid ethyl esters (LOVAZA) 1 gram capsule Take 1,000 mg by mouth. - ADVAIR DISKUS 100-50 mcg/dose inhaler Inhale as instructed two times a day. - tolterodine ER (DETROL LA) 4 mg 24 hr capsule Take 4 mg by mouth once daily. - furosemide (LASIX) 20 mg tablet Take 1 tablet by mouth once daily. - atenolol (TENORMIN) 50 mg tablet Take 1 tablet by mouth once daily. - dofetilide (TIKOSYN) 500 mcg capsule Take 1 capsule by mouth twice daily. - aspirin, enteric coated (ECOTRIN LOW STRENGTH) 81 mg EC tablet Take 1 tablet by mouth once daily. - Fenofibrate (LOFIBRA) 160 mg tablet TAKE 1 TABLET ONCE DAILY - cholecalciferol, vitamin D3, (VITAMIN D3 ORAL) Take by mouth. - magnesium oxide (MAG-OX) 400 mg (241.3 mg magnesium) tablet Take 1 tablet by mouth once daily. - omeprazole (PRILOSEC) 40 mg capsule Take 40 mg by mouth once daily. - rOPINIRole (REQUIP) 1 mg tablet Take 1 tablet by mouth daily at bedtime. - montelukast (SINGULAIR) 10 mg tablet montelukast 10 mg tablet - allopurinol (ZYLOPRIM) 100 mg tablet Take 100 mg by mouth once daily. - PROCTOZONE-HC 2.5 % rectal cream APPLY TO THE AFFECTED AREA(S) 2-4 times daily - fluticasone (FLONASE) 50 mcg/actuation nasal spray Use 1 [place] in each nostril once daily. - coenzyme Q10 100 mg cap Take 100 mg by mouth once daily. - albuterol HFA (PROAIR HFA) 90 mcg/actuation inhaler Inhale 2 Puffs as instructed every 6 hours as needed. - Glucosamine-Chondroit -Vit C-Mn 500-400 mg cap Take 1 capsule by mouth twice daily. Meds Comments as of 09/01/2016: Omeprazole is taken prn Problem List As Of Date 09/13/2023 Noted Resolved PAF (paroxysmal atrial fibrillation) ([facility]) [I48* Former smoker [Z87.891] Obstructive lung disease [J44.9] Hyperlipemia [E78.5] PUD (peptic ulcer disease) [K27.9] GERD (gastroesophageal reflux disease) [K21.9] Carpal tunnel syndrome [G56.00] Hx of neck disorder [Z87.39] Rotator cuff tear [M75.100] Arthritis [M19.90] Depression [F32.A] Alcohol use LPRD (laryngopharyngeal reflux disease) [K21.9] 12/30/2011 Chronic throat clearing [R09.89] 12/30/2011 Biceps rupture, proximal [S46.119A] 05/29/2015 Contracture of shoulder [M24.519] 05/29/2015 Rotator cuff tear arthropathy [M75.100, M12.819]05/29/2015 Complete tear of left rotator cuff [M75.122] 05/29/2015 Melanoma ([facility]) [C43.9] 07/23/2015 HTN (hypertension), benign [I10] 07/23/2015 Cervical spine pain [M54.2] Osteoarthritis [M19.90] 08/06/2015 Limitation of joint motion of shoulder [M25.619]08/20/2015 Acute on chronic diastolic congestive heart win*10/31/2015 Chronic diastolic congestive heart failure (HCC*12/19/2015 Right shoulder pain [M25.511] 09/21/2016 Stiffness of shoulder joint [M25.619] 09/21/2016 Weakness of shoulder [R29.898] 09/21/2016 Obesity, Class I, BMI 30-34.9 [E66.9] 01/03/2018 Persistent atrial fibrillation (HCC) [I48.19] 07/28/2018 Visit for monitoring Tikosyn therapy [Z51.81, Z*09/06/2018 Gastrointestinal hemorrhage [K92.2] 05/18/2022 IRB 21-1031 [facility] Real World Evidence (*05/19/2022 Atrial fibrillation (HCC) [I48.91] 05/19/2022 Low back pain, unspecified [M54.50] 01/12/2022 Encounter Status:Closed by CODY, (more content not included)... Normal [facility] CT Chest w/o Contraston 05-0 CT Chest w/o Contrast Exam Date/Time: 09/06/2023 13:24 EDT Reason for Exam: R06.00 Report IMPRESSION: NO EVIDENCE OF ACTIVE CARDIOPULMONARY DISEASE. CHRONIC FINDINGS, NOTED. EXAM: CT Chest w/o Contrast DATE: 09/06/2023 1:04 PM CLINICAL HISTORY: R06.00. COMPARISON: Two-view chest 06/24/[address] abdomen and pelvis 10/30/2021. TECHNIQUE: Spiral imaging was obtained of the chest without contrast. All CT scans at this facility use dose modulation, iterative reconstruction, and/or weight based dosing when appropriate to reduce radiation dose to as low as reasonably achievable. Unless otherwise stated, incidental findings identified in this report do not require routine follow-up imaging. FINDINGS: Lungs and pleura: No suspicious pulmonary nodules, focal consolidation, significant pulmonary opacities, pleural effusion, or pneumothorax. Approximately 5 mm densely calcified left upper lobe granuloma, of no concern. Mediastinum and lymph nodes: No pathologically enlarged mediastinal, hilar, or axillary lymph nodes. Heart: Not enlarged. A left atrial appendage closure device and coronary artery calcifications are present. No significant pericardial effusion. Thoracic aorta: Normal in caliber with minimal calcified atherosclerotic plaquing. Pulmonary arteries: Normal in caliber. Thyroid: Unremarkable. Esophagus: Unremarkable. Musculoskeletal: No acute osseous findings. Mild degenerative changes. Upper abdomen: Noncontributory. Ordering Provider: Scarlett Gaviria FINAL REPORT Dictated: 09/06/2023 1:42 pm Karlo Saldana MD Signed (Electronic Signature): 09/06/2023 1:42 pm Signed by: Karlo Saldana MD Transcribed by: JADEN Technologist: ZORAN [facility] Consent for Treatmenton Consent for Treatment [id number] .00TIFF [facility] Consent for Treatment [id number] .00TIFF [facility] Physician Orderon 09-06-2023 Physician Order [id number]# 1.00TIFF [facility] Physician Order [id number]# 1.00TIFF [facility] Comment on above: Other Comment: paule d to be stamped completed Physician Order [id number]# 1.00TIFF [facility] CNOVon 08-29-2023 CNOV Office Visit (LORA ) IRENA PERAZA ([id number]) 1945 M Date Time Provider Department 08/29/23 10:00 AM ALPA RAM During your visit today, we recorded the following information about you: Pulse Blood pressure Weight 84/minute 120/56 95.4 kg Alpa Ram, DO 09/01/2023 7:12 PM Signed [facility] Neurological [facility] Sp[facility] Health - Medical Spine Established Patient SUBJECTIVE HISTORY OF PRESENT ILLNESS: Irena Peraza is a 78 year old male who presents for f/u of low back pain. Last visit: MRI lumbar reviewed, Rx Gabapentin and PT. Patient has attended PT with little relief. With PT he has been able to find positions to bring the pain down, but with movement or certain positions he continues to have pain. Taking Gabapentin with some benefit, but causes dry mouth. He continues to have pain in the lumbosacral back midline, like a knife. He gets radiating pain and numbness down the LLE posteriorly to the foot. Significant numbness left foot diffusely when taking a shower. Less numbness in right foot. Sometimes feels like legs might buckle with pain. Pain is 3-4/10 while sitting, but with movement it can go up to 10/10, described as a bolt of lightning . Initial visit 06/22/23: Reports low back pain for at least 30+ years, had L5-S1 discectomy in . Pain fluctuates on and off for a long time. Recently says his pain is now in the low back and buttock, some along the sacral region as well, worse with standing. Worst pain is midline lumbosacral region. Reports tingling and pain down the left > right leg, down the posterior thigh and leg, all the way to the foot. Denies weakness. Denies bowel/bladder incontinence or saddle anesthesia. The pain is currently 3/10. The pain can get to 8/10 at the highest. PAIN EVALUATION 08/28/2023 2589 Pain Level: 9 Pain Location: Buttocks-Left Description: Burning;Numbness;Radi ating;Sharp;Stabbing Duration Units: Minutes Frequency: Continuous Intervention/Comfort measure: Medication;Massage Pain Radiation: As above Aggravating Factors: Standing, leaning forward Transfers Alleviating Factors: Stretching Sitting Child's pose Pain Ratio: midline lumbosacral back Current Treatment: Medications Tylenol 650mg 2 pills PRN Cymbalta 60mg Gabapentin 300 mg TID - mild benefit, causing dry mouth and mild increase in chronic BLE edema Therapies PT HEP 3 times per week PT: [facility], Rachell Gilliam PT, 06/28-08/26/23, 8 visits, discharged by therapist due to no progress. PT reports sharp pain w/ movement b/w static postures indicating spinal instability. Pain w/ transfers up to 8-9/10, subsides after 30-60 seconds down to 4/10. Positions are variable, prone postures sometimes relieve, sometimes worsen. Laying prone w/ pillow under hips is consistent, but transferring to prone can be provoking. Sxs include central back pain, n/t thighs, LLE down to foot, occasionally toes. Pain with initial extension then improves w/ repeat, tolerates prone press up minimal pain and no peripheralization. Prior Treatment: Medications none Therapies Acupuncture for the neck Prior spine interventions: [facility] he recalls having lumbar spine injections Prior spine surgery: L5-S1 discectomy in Previously treated by: -Recently seen by PA working with Spine Surgeon Dr. Al Wiley in [place] and was planning water PT. -Spine Medicine Dr. Bellamy. 2019 for cervical spine. Has had RFA locally and can pursue that. Try ROM exercises. Trial of Acupuncture for pain. PMH: PUD, GERD Afib s/p Watchman procedure, off Eliquis now CHF COPD h/o cancer: Melanoma PSH: PAST SURGICAL HISTORY Procedure Laterality Date APPENDECTOMY HX BACK SURGERY HX L5, S1 removed CARDIAC CATH 03/26/13 40-50% disease in mid LAD CARDIOVERSION 11/14/15 CATHETER, ABLATION A-Fib, 2003 at [facility] HERNIA REPAIR HX 05/2011 left inguinal PAST SURGICAL HISTORY OF skin cancer removed from back, and from leg, nose,; also cyst removed PAST SURGICAL HISTORY OF 2012 Melanoma removed from left breast. PAST SURGICAL HISTORY OF 2012 bilateral cataract removal PAST SURGICAL HISTORY OF Left carpal tunnel release PAST SURGICAL HISTORY OF Right 2017 varicose vein surgery ROTATOR CUFF REPAIR x4 (2 on each shoulder) SHOULDER LEFT OUT PT SURGERY 08/2015 reverse total shoulder TONSILLECTOMY HX Social Tobacco: Former smoker Personal life: daughter is a dentist, son is a nurse Occupation: Retired Litigation: No Workers' Compensation: No YELLOW AND BLUE FLAGS No-Neg Attitude; Back Pain is Disabling No-Avoiding Activity (for Fear of Pain) No-Depression or Anxiety Disorders No-S (more content not included)... [facility]RE[facility] PERAZ[facility] ([id number]) 1945 M Date Time Provider Department 08/29/23 ALPA RAM [facility] During your visit today, we recorded the following information about you: Delfina Hwang RN 08/29/2023 11:11 AM Signed Received: Today Alpa Ram, DO Delfina Hwang RN Lyrica prescribed, but pop up notification says prior auth is needed. Can you check on that please? I am switching him from Gabapentin because it is causing dry mouth and lower extremity edema. Thank you Delfina Hwang RN 08/29/2023 11:11 AM Signed Spoke to pharmacy they have not put script in yet but will call me back once they have. Delfina Hwang RN 08/29/2023 4:22 PM Signed Spoke to pharmacy it went through insurance. Just waiting for lemon picker. Allergies As of Date: 08/29/2023 (No Known Allergies) Date Reviewed: 08/29/2023 Reviewed by: Lila Royal MA - Fully Assessed Reason for Visit: Prior Authorization Medication [Other] Prescriptions as of 08/29/2023 - pregabalin (LYRICA) 50 mg capsule Take one capsule daily at bedtime for 3 days, then one in the morning and one at night for 3 days. Then increase to one capsule three times daily if tolerating well. Patient is having side effects with Gabapentin. - omega-3/dha/epa/fish oil (OMEGA-3 ORAL) Take by mouth. - atorvastatin (LIPITOR) 40 mg tablet take 1 tablet by mouth once daily - acetaminophen 650 mg CR tablet Every 12 hours - amoxicillin (AMOXIL) 500 mg capsule TAKE 2 CAPSULES BY MOUTH now then TAKE 1 CAPSULE BY MOUTH EVERY 6 HOURS UNTIL GONE - ketoconazole (NIZORAL) 2 % cream - DULoxetine (CYMBALTA) 60 mg capsule Take 1 capsule by mouth every afternoon. - fluticasone-vilantero l (BREO ELLIPTA) 100-25 mcg/dose inhaler INHALE 1 PUFF BY MOUTH DAILY - omega-3 acid ethyl esters (LOVAZA) 1 gram capsule Take 1,000 mg by mouth. - ADVAIR DISKUS 100-50 mcg/dose inhaler Inhale as instructed two times a day. - tolterodine ER (DETROL LA) 4 mg 24 hr capsule Take 4 mg by mouth once daily. - furosemide (LASIX) 20 mg tablet Take 1 tablet by mouth once daily. - atenolol (TENORMIN) 50 mg tablet Take 1 tablet by mouth once daily. - dofetilide (TIKOSYN) 500 mcg capsule Take 1 capsule by mouth twice daily. - aspirin, enteric coated (ECOTRIN LOW STRENGTH) 81 mg EC tablet Take 1 tablet by mouth once daily. - Fenofibrate (LOFIBRA) 160 mg tablet TAKE 1 TABLET ONCE DAILY - cholecalciferol, vitamin D3, (VITAMIN D3 ORAL) Take by mouth. - magnesium oxide (MAG-OX) 400 mg (241.3 mg magnesium) tablet Take 1 tablet by mouth once daily. - omeprazole (PRILOSEC) 40 mg capsule Take 40 mg by mouth once daily. - rOPINIRole (REQUIP) 1 mg tablet Take 1 tablet by mouth daily at bedtime. - montelukast (SINGULAIR) 10 mg tablet montelukast 10 mg tablet - allopurinol (ZYLOPRIM) 100 mg tablet Take 100 mg by mouth once daily. - PROCTOZONE-HC 2.5 % rectal cream APPLY TO THE AFFECTED AREA(S) 2-4 times daily - fluticasone (FLONASE) 50 mcg/actuation nasal spray Use 1 [place] in each nostril once daily. - coenzyme Q10 100 mg cap Take 100 mg by mouth once daily. - albuterol HFA (PROAIR HFA) 90 mcg/actuation inhaler Inhale 2 Puffs as instructed every 6 hours as needed. - Glucosamine-Chondroit -Vit C-Mn 500-400 mg cap Take 1 capsule by mouth twice daily. Meds Comments as of 09/01/2016: Omeprazole is taken prn Problem List As Of Date 08/29/2023 Noted Resolved PAF (paroxysmal atrial fibrillation) (HCC) [I48* Former smoker [Z87.891] Obstructive lung disease [J44.9] Hyperlipemia [E78.5] PUD (peptic ulcer disease) [K27.9] GERD (gastroesophageal reflux disease) [K21.9] Carpal tunnel syndrome [G56.00] Hx of neck disorder [Z87.39] Rotator cuff tear [M75.100] Arthritis [M19.90] Depression [F32.A] Alcohol use LPRD (laryngopharyngeal reflux disease) [K21.9] 12/30/2011 Chronic throat clearing [R09.89] 12/30/2011 Biceps rupture, proximal [S46.119A] 05/29/2015 Contracture of shoulder [M24.519] 05/29/2015 Rotator cuff tear arthropathy [M75.100, M12.819]05/29/2015 Complete tear of left rotator cuff [M75.122] 05/29/2015 Melanoma (HCC) [C43.9] 07/23/2015 HTN (hypertension), benign [I10] 07/23/2015 Cervical spine pain [M54.2] Osteoarthritis [M19.90] 08/06/2015 Limitation of joint motion of shoulder [M25.619]08/20/2015 Acute on chronic diastolic congestive heart win*10/31/2015 Chronic diastolic congestive heart failure (HCC*12/19/2015 Right shoulder pain [M25.511] 09/21/2016 Stiffness of shoulder joint [M25.619] 09/21/2016 Weakness of shoulder [R29.898] 09/21/2016 Obesity, Class I, BMI 30-34.9 [E66.9] 01/03/2018 Persistent atrial fibrillation (HCC) [I48.19] 07/28/2018 Visit for monitoring Tikosyn therapy [Z51.81, Z*09/06/2018 Gastrointestinal hemorrhage [K92.2] 05/18/2022 IRB 21-1031 [facility] Real [employer] Evidence (*05/19/2022 Atrial fi (more content not included)... Normal [facility] XR LUMBAR 4V AP/LAT/ FLEX/EX Ton 08-29-2023 XR LUMBAR 4V AP/LAT/ FLEX/EXT * * *Final Report* * * DATE OF EXAM: Aug 29 2023 11:22AM LNX [id number] - XR LUMBAR 4V AP/LAT/ FLEX/EXT / PROCEDURE REASON: multiple diagnoses * * * * Physician Interpretation * * * * LUMBAR SPINE RADIOGRAPHS HISTORY: 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athy TECHNOLOGIST PROVIDED HISTORY (if applicable): chronic low back pain with intermittent bilateral sciatica TECHNIQUE: XR LUMBAR 4V AP/LAT/ FLEX/EXT COMPARISON: None available RESULT: Counting reference: Lumbosacral junction. For the purposes of this report, L5-S1 is considered the last lumbar type disc space and L4-L5 is considered the level of the iliac crest. Vertebral bodies have normal height and contour. There is no compression deformity or acute bony abnormality identified. Slight dextrocurvature at L2-3 The is grade I retrolisthesis at L2-3. The is grade I anterolisthesis at L4-5. Mild multilevel lumbar disc space narrowing. Moderate multilevel lumbar facet arthrosis Alignment appears stable in flexion and extension. There are bilateral sacroiliac joint and hip degenerative changes partially visualized on this study. There is atherosclerotic disease in the abdominal aorta. IMPRESSION: 1. Mild to moderate lumbar spondylosis. Technical Producer: KIMBERLY Transcribe Date/Time: Aug 29 2023 2:01P Dictated by : RAMYA JOHNSON MD This examination was interpreted and the report reviewed and electronically signed by: RAMYA JOHNSON MD on Aug 29 2023 2:02PM EST [id number] Normal [facility] XR Lumbar spine Views W flex ion and W extensionon 08-29-2023 IMPRESSION: 1. Mild to moderate lumbar spondylosis. Technical Producer: KIMBERLY Transcribe Date/Time: Aug 29 2023 2:01P Dictated by : RAMYA JOHNSON MD This examination was interpreted and the report reviewed and electronically signed by: RAMYA JOHNSON MD on Aug 29 2023 2:02PM EST DIVISION OF RADIOLOGY * * *Final Report* * * DATE OF EXAM: Aug 29 2023 11:22AM LNX 5231 - XR LUMBAR 4V AP/LAT/ FLEX/EXT / PROCEDURE REASON: multiple diagnoses * * * * Physician Interpretation * * * * LUMBAR SPINE RADIOGRAPHS HISTORY: 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athy TECHNOLOGIST PROVIDED HISTORY (if applicable): chronic low back pain with intermittent bilateral sciatica TECHNIQUE: XR LUMBAR 4V AP/LAT/ FLEX/EXT COMPARISON: None available RESULT: Counting reference: Lumbosacral junction. For the purposes of this report, L5-S1 is considered the last lumbar type disc space and L4-L5 is considered the level of the iliac crest. Vertebral bodies have normal height and contour. There is no compression deformity or acute bony abnormality identified. Slight dextrocurvature at L2-3 The is grade I retrolisthesis at L2-3. The is grade I anterolisthesis at L4-5. Mild multilevel lumbar disc space narrowing. Moderate multilevel lumbar facet arthrosis Alignment appears stable in flexion and extension. There are bilateral sacroiliac joint and hip degenerative changes partially visualized on this study. There is atherosclerotic disease in the abdominal aorta. DIVISION OF RADIOLOGY Provider, [facility] - 08/29/2023 * * *Final Report* * * DATE OF EXAM: Aug 29 2023 11:22AM LNX 5231 - XR LUMBAR 4V AP/LAT/ FLEX/EXT / PROCEDURE REASON: multiple diagnoses * * * * Physician Interpretation * * * * LUMBAR SPINE RADIOGRAPHS HISTORY: 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athy TECHNOLOGIST PROVIDED HISTORY (if applicable): chronic low back pain with intermittent bilateral sciatica TECHNIQUE: XR LUMBAR 4V AP/LAT/ FLEX/EXT COMPARISON: None available RESULT: Counting reference: Lumbosacral junction. For the purposes of this report, L5-S1 is considered the last lumbar type disc space and L4-L5 is considered the level of the iliac crest. Vertebral bodies have normal height and contour. There is no compression deformity or acute bony abnormality identified. Slight dextrocurvature at L2-3 The is grade I retrolisthesis at L2-3. The is grade I anterolisthesis at L4-5. Mild multilevel lumbar disc space narrowing. Moderate multilevel lumbar facet arthrosis Alignment appears stable in flexion and extension. There are bilateral sacroiliac joint and hip degenerative changes partially visualized on this study. There is atherosclerotic disease in the abdominal aorta. IMPRESSION IMPRESSION: 1. Mild to moderate lumbar spondylosis. Technical Producer: PSCB Transcribe Date/Time: Aug 29 2023 2:01P Dictated by : RAMYA JOHNSON MD This examination was interpreted and the report reviewed and electronically signed by: RAMYA JOHNSON MD on Aug 29 2023 2:02PM EST [facility] Radiology Study observation (narrative) [facility] XR Lumbar spine Views W flex ion and W extensionOrdered By: Ccf Provider on 08-29-2023 [facility] Insurance Correspondenceon 0 08-25-2023 Insurance Correspondence [id number]# 1.00TIFF Normal [facility] Ambulatory Visit Summaryon 0 08-24-2023 Ambulatory Visit Summary IRENA PERAZA :1945 Visit Date:08/24/2023 Ambulatory Visit Instructions Your Care Team Attending Physician - Scarlett RICE, Jevon Primary Care Physician - Scarlett Gaviria CNP Primary Nurse - Rolando CONTRERAS, Rosa Ledezma RN, Evelyn Santos This Is Your Medications List allopurinol (allopurinol 100 mg Tab) apixaban (Eliquis) aspirin atenolol atorvastatin (Lipitor 40 mg Tab) budesonide-formoterol (Symbicort 80/4.5 inhalation aerosol with adapter) calcium citrate calcium-vitamin D chondroitin-glucosami ne (Chondroitin-Glucosam ine) dofetilide (Tikosyn 500 mcg oral capsule) duloxetine (duloxetine 30 mg Cap-DR) fenofibrate (fenofibrate 160 mg oral tablet) fluticasone (fluticasone HFA 44 mcg/inh Inhaler) fluticasone nasal (Flonase) gabapentin (gabapentin 300 mg Cap) montelukast (montelukast 10 mg Tab) omega-3 polyunsaturated fatty acids (Lovaza) omeprazole (omeprazole 40 mg Cap-EC) ropinirole (Requip 3 mg Tab) tizanidine (tiZANidine 4 mg Tab) tolterodine (tolterodine 4 mg Cap-ER) ubiquinone (CoQ10) vardenafil (Levitra 20 mg Tab) Procedures Performed Colonoscopy (07/27/2021), Bunionectomy (07/09/2021), Colonoscopy, flexible; with removal of tumor(s), polyp(s), or other lesion(s) by snare technique (12/22/2020), Epidural injection of cervical spine using fluoroscopic guidance (10/20/2020), Radiofrequency ablation of medial branch of lumbar nerve using fluoroscopic guidance (07/28/2020), Injection of facet joint using fluoroscopic guidance (07/08/2020), Injection of facet joint using fluoroscopic guidance (06/10/2020), Transurethral insertion of prostatic urethral lift implant (09/27/2018), Cystoscopy (08/30/2018), Arthrodesis of foot (05/19/2017), Carpal tunnel release (03/30/2017), Left carpal tunnel release (07/15/2016), EVLT RGSV, phleb. right leg (04/07/2016), Radiofrequency denervation of spinal facet joint of cervical vertebra (01/19/2016), Shoulder replacement (08/06/2015), Injection of facet joint using fluoroscopic guidance (05/19/2015), cervica medial branch block (04/04/2015), Transrectal biopsy of prostate using ultrasound (US) guidance (07/03/2014), skin lesion of left chest (melanoma) (2012), Lumbar discectomy (08/1994), Appendectomy, Cardiac ablation using fluoroscopy guidance, Colonoscopy, Colonoscopy, EGD, Excision of basal cell carcinoma, Hammer toe operation, Hernia, AGUS - Plication of left atrial appendage, Radiofrequency ablation of medial branch of cervical nerve using fluoroscopic guidance, Rotator cuff repair, Tonsillectomy. Discharge Vitals Temperature (Oral) 36.5 ?C Heart Rate (Peripheral) 87 Respiratory Rate 16 Blood Pressure 164/91 Height 177 cm Weight 97.9 kg BMI 31.25 What to do next Scheduled Follow-Up Appointments Tuesday 1:00 PM EDT With: Nghia ROBERSON MD Where: [facility] Consent for Treatment08-01 Consent for Treatment [id number]#1 .00TIFF Normal [facility] Oncology Progress Noteon Oncology Progress Note Chief Complaint Anemia Oncological History/ROS/PE/Assess ment and Plan History of Present Illness 78 year old male referred for anemia. He had iron studies in june 2021 which showed only mild iron deficiency. His hb then was 9.9. normal wbc and plt count. MCV 94. His b12, folate were normal. Follows with Dr. Baldwin for skin a few times per year. History of afib on eliquis and tikosyn. His outpatient meds at the time are allopurinol, atenolol, citalopram, eliquis, fenofibrate, lexapro, furosemide, lipitor, magnesium, moneteluckast, omeprazole, ranititidine, ropinirole, Tikosyn. EGD completed 07/27/2021 revealed multiple white exudates in esophagus?pathology revealed active Haleigh esophagitis, stomach biopsy revealed chronic inactive gastritis, PPI changes, negative for intestinal metaplasia, negative for H. pylori. Colonoscopy completed 07/27/2021 revealed hyperplastic polyp removed from cecum, hyperplastic polyp removed from descending colon, hemorrhoids - Dr. Bolaños recommended for patient to have repeat colonoscopy in 5 years (2026). 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 Has followed with Dr. Sutton for bunions. ER visit last tuesday for R flank pain CTA/P without contrast showed no significant concerns. Has followed with Dr. Cook and had prostate biopsy negative in the past. Required 2 doses iv iron in mid 2021. required 2 additional doses in 2022. He had watchman procedure in may 2022, he was taken off of eliquis at this time. 08/24/23 He is doing well. Considering surgery on his back with [facility]. Some plans to monitor for a while and then make the decision. PHYSICAL EXAMINATION ECOG PS:1 General: Alert and oriented, no acute distress. Eye: Extraocular movements are intact, normal conjunctiva. HENT: Normocephalic, normal hearing. Neck: Supple, non-tender, no jugular venous distention. Cardiovascular: Normal rate, regular rhythm, no murmur, no edema. Gastrointestinal: Soft, non-tender, non-distended, normal bowel sounds, no organomegaly. Respiratory: Clear to auscultation bilaterally, no wheezes, rhonchi or rales. Integumentary: Warm, dry, pink, no pallor, no rash. Psychiatric: Cooperative, appropriate mood & affect. IMPRESSION/PLAN. Recurrent Iron Deficiency Anemia. Malabsorption, intolerance of oral iron. b12/folate ok. Required IV iron x 2 doses in 2021. hospitalization for anemia in november 2021. required iv iron x 2 doses in 2022. workup in early 2021 He had a negative work-up including 2 EGDs, a colonoscopy, and a capsule endoscopy. follows closely with GI. STOP ORAL iron so he can evaluate if he is loosing blood in his stool. wasnt working anyway secondary to malabsorption. No other cell line abnormalities. Atrial fibrillation. had watchman in may 2022 Follow-up With When Contact Information Jevon Pantoja DO ONC [facility] [address] [place] [address]- [phone] Fax Business (1) Additional Instructions: Medications allopurinol 100 mg Tab, 100 mg= 1 tab(s), Oral, Daily aspirin atenolol, 50 mg, Oral, Daily calcium citrate, 1500 mg, Oral, BID calcium-vitamin D, 1 tab, Oral, Daily Chondroitin-Glucosami ne, 1 cap(s), Oral, Daily CoQ10, 100 mg, Oral, TID duloxetine 30 mg Cap-DR, 30 mg, Oral, Daily Eliquis fenofibrate 160 mg oral tablet, 160 mg= 1 tab(s), Oral, Daily Flonase, 1 spray(s), Nasal, Daily, PRN fluticasone HFA 44 mcg/inh Inhaler, 2 puff(s), Inhalation, BID, PRN gabapentin 300 mg Cap Levitra 20 mg Tab, 20 mg= 1 tab(s), Oral, As Directed, PRN, 3 refills Lipitor 40 mg Tab, 40 mg= 1 tab(s), Oral, Daily Lovaza, 1000 mg, Oral, BID montelukast 10 mg Tab, 10 mg= 1 tab(s), Oral, Daily omeprazole 40 mg Cap-EC, 40 mg= 1 cap(s), Oral, Every other day, PRN Requip 3 mg Tab, 3 mg= 1 tab(s), Oral, Bedtime Symbicort 80/4.5 inhalation aerosol with adapter, 2 puff(s), Inhalation, BID Tikosyn 500 mcg oral capsule, 500 mcg= 1 cap(s), Oral, BID tiZANidine 4 mg Tab tolterodine 4 mg Cap-ER, 4 mg= 1 cap(s), Oral, Daily, 2 refills Vital Signs and Measurements Vital Signs and Measurements This Visit - Last 24 Hours T: 36.5 ?C (Oral) HR: 87 (Peripheral) RR: 16 BP: 164/91 SpO2: 98% HT: 177 cm HT: 177.0 cm WT: 97.9 kg WT: 97.9 kg (Dosing) BMI: 31.25 BSA: 2.19 Staging Information No information available Labs Common Labs Event Name Event Result Date/Time WBC 6.6 E9/L 08/19/23 RBC 4.1 E12/L Low 08/19/23 HGB 12.1 gm/dL Low 08/19/23 Hct 38 % 08/19/23 MCV 93.4 fL 08/19/23 MCH 29.7 pg 08/19/23 MCHC 31.8 gm/dL 08/19/23 RDW 15.4 % High 08/19/23 Platelet 294 E9/L 08/19/23 MPV 7.3 fL 08/19/23 Neutro Auto 77.5 % High 08/19/23 Lymph Auto 12.1 % Low 08/19/23 [place] Auto 8.4 % 08/19/23 Eos Auto 1.6 % 08/19/23 Basophil Auto 0.4 % 08/19/23 Neutro Absolute 5.1 E9/L 08/19/23 Lymp (more content not included)... Normal [facility] CBC w/ Auto Diffon 4 Basophils/100 WBC (Bld) 0.4 % Normal 0.0-2.0 [facility] Comment on above: Performed By: #### 2 106933, 3117746, 0539507, 9909906, 0546484, 71126175, 8662126 #### [facility] [address] [place] [address] Basophils/Leukocytes Auto (Bld) [Pure # fraction] 0.0 E9/L Normal 0.0-0.2 [facility] Comment on above: Performed By: #### 2 153052, 1416925, 5707806, 0943362, 8425099, 91134219, 4513067 #### [facility] [address] [place] [address] Eosinophils (Bld) [#/Vol] 0.1 E9/L Normal 0.0-0.5 [facility] Comment on above: Performed By: #### 2 176036, 1558513, 5851875, 0962901, 2685258, 71488757, 6337575 #### [facility] [address] [place] [address] Eosinophils/100 WBC (Bld) 1.6 % Normal 0.0-8.0 [facility] Comment on above: Performed By: #### 2 644843, 9225619, 8970302, 1036037, 8955873, 66042859, 6463540 #### [facility] [address] [place] [address]28 Erythrocyte distribution width (RBC) [Ratio] 15.4 % High 10.9-14.2 [facility] Comment on above: Performed By: #### 2 338345, 3903169, 8544561, 3973831, 3916329, 33000415, 6304303 #### [facility] [address] [place] [address] Hematocrit (Bld) [Volume fraction] 38.0 % Normal 37.7-49.0 [facility] Comment on above: Performed By: #### 2 247714, 6575119, 7938421, 8174535, 3475062, 40167922, 7785442 #### [facility] [address] [place] [address] Hemoglobin (Bld) [Mass/Vol] 12.1 g/dL Low 13.5-17.5 [facility] Comment on above: Performed By: #### 2 998307, 1869590, 2903389, 6043181, 7250384, 14500523, 2905321 #### [facility] [address] [place] [address] Lymphocytes (Bld) [#/Vol] 0.8 E9/L Low 1.0-4.0 [facility] Comment on above: Performed By: #### 2 724916, 2177310, 5902965, 3645402, 5361644, 10539575, 5233609 #### [facility] [address] [place] [address]69 Lymphocytes/100 WBC (Bld) 12.1 % Low 14.0-50.0 [facility] Comment on above: Performed By: #### 2 219848, 5639437, 2686222, 0139616, 4523656, 90103780, 9201071 #### [facility] [address] [place] [address] MCH (RBC) [Entitic mass] 29.7 pg Normal 27.0-34.0 [facility] Comment on above: Performed By: #### 2 371017, 7985949, 6357994, 4707471, 7222053, 24788588, 9310332 #### [facility] [address] [place] [address]171 MCHC (RBC) [Mass/Vol] 31.8 g/dL Normal 31.4-36.0 [facility] Comment on above: Performed By: #### 2 468377, 0255587, 9408570, 2153124, 4364529, 80703883, 5822987 #### [facility] [address] [place] [address]3491 MCV (RBC) [Entitic vol] 93.4 fL Normal 80.0-100.0 [facility] Comment on above: Performed By: #### 2 314184, 4439464, 9716394, 8531187, 8579565, 22173922, 9159431 #### [facility] [address] [place] [address] 10193 Monocytes (Bld) [#/Vol] 0.6 E9/L Normal 0.2-1.0 [facility] Comment on above: Performed By: #### 2 198781, 8033833, 8913467, 4180157, 0657707, 95754615, 7921309 #### [facility] [address] [place] [address] Neutrophils (Bld) [#/Vol] 5.1 E9/L Normal 2.0-7.5 [facility] Comment on above: Performed By: #### 2 818566, 5386897, 8597765, 4644440, 9816776, 66980296, 2416273 #### [facility] [address] [place] [address] Neutrophils/100 WBC (Bld) 77.5 % High 36.0-75.0 [facility] Comment on above: Performed By: #### 2 333182, 0865566, 3490291, 3182958, 8526048, 17381829, 8290830 #### [facility] [address] [place] [address]1672 Platelet 294.0 E9/L Normal 150.0-500.0 [facility] Comment on above: Performed By: #### 2 325059, 6113382, 2557769, 5182700, 9508203, 10913037, 2761370 #### [facility] [address] [place] [address] Platelet mean volume (Bld) [Entitic vol] 7.3 fL Normal 6.4-10.8 [facility] Comment on above: Performed By: #### 2 739477, 2023561, 9086576, 9162939, 0055138, 63792136, 6941887 #### [facility] [address] [place] [address] RBC (Bld) [#/Vol] 4.1 E12/L Low 4.3-5.9 [facility] Comment on above: Performed By: #### 2 977518, 8794131, 1010146, 1671274, 5460668, 00743772, 9265106 #### [facility] [address] [place] [address] WBC corrected for nucl RBC Auto (Bld) [#/Vol] 6.6 E9/L Normal 4.0-11.0 [facility] Comment on above: Performed By: #### 2 003652, 2920642, 6166418, 5422827, 9900948, 88521833, 1420920 #### [facility] [address] [place] [address] CHEMISTRYOrdered By: Nguyễn orozco on 08-19-2023 Albumin [Mass/Vol] 4.2 g/dL Normal 3.3 - 5.0 gm/dL Remisol Chem Albumin/Globulin [Mass ratio] 1.6 {ratio} Normal 1.1 - 2.2 [facility] ALP [Catalytic activity/Vol] 68 [iU]/d Normal 21 - 98 Int._Unit/L [facility] Chem ALT No additional P-5'-P [Catalytic activity/Vol] 12 [iU]/d Normal 6 - 46 Int._Unit/L [facility] Anion gap [Moles/Vol] 16 mmol/L Normal 6 - 16 mEq/L R emisol Chem AST [Catalytic activity/Vol] 19 [iU]/d Normal 5 - 43 Int._Unit/L [facility] Bilirubin [Mass/Vol] 0.4 mg/dL Normal 0.0 - 1 .1 mg/dL [facility] Calcium [Mass/Vol] 9.4 mg/dL Normal 8.9 - 11. 1 mg/dL [facility] Chloride [Moles/Vol] 104 mmol/L Normal 101 - 1 11 mmol/L [facility] CO2 [Moles/Vol] 24 mmol/L Normal 21 - 31 mmol/L [facility] Creatinine [Mass/Vol] 0.9 mg/dL Normal 0.5 - 1.3 mg/dL [facility] eGFR 88 mL/min/1.73 m2 Normal >=59mL/min /1 .73 m2 [facility] Ferritin [Mass/Vol] 24 ng/mL Normal 24 - 336 ng/mL [facility] Globulin (S) [Mass/Vol] 2.7 g/dL Normal 1.4 - 4.0 gm/dL [facility] Glucose [Mass/Vol] 129 mg/dL Normal 55 - 199 mg/dL [facility] Iron [Mass/Vol] 53 ug/dL Normal 35 - 153 mcg/dL [facility] Iron binding capacity [Mass/Vol] 545 ug/dL High 250 - 400 mcg/dL [facility] Iron saturation [Mass fraction] 10 % Low 20 - 50 % [facility] Chem Potassium [Moles/Vol] 3.5 mmol/L Normal 3.5 - 5.3 mmol/L [facility] Protein [Mass/Vol] 6.9 g/dL Normal 6.0 - 7.8 gm/dL [facility] Sodium [Moles/Vol] 140 mmol/L Normal 135 - 145 mmol/L [facility] Transferrin [Mass/Vol] 389 mg/dL High 200 - 370 mg/dL [facility] Urea nitrogen [Mass/Vol] 14 mg/dL Normal 5 - 21 mg/dL [facility] Urea nitrogen/Creatinine [Mass ratio] 16 mg/mg Normal 10 - 20 [facility] Chem CMPon 08-19-2023 Albumin [Mass/Vol] 4.2 g/dL Normal 3.3-5.0 [facility] Comment on above: Performed By: #### 2 911192, 4064234, 9606960, 6755962, 0142708, 34550916, 0374336 #### [facility] [address] [place] [address] Albumin/Globulin (S) [Mass conc ratio] 1.6 Normal 1.1-2.2 [facility] Comment on above: Performed By: #### 2 144978, 2246769, 6244576, 1873635, 7202095, 49044387, 5730984 #### [facility] [address] [place] [address] ALP [Catalytic activity/Vol] 68 Int._Unit/L Normal 21-98 [facility] Comment on above: Performed By: #### 2 635005, 6186813, 3235389, 8873996, 6261622, 79019996, 8431885 #### [facility] [address] [place] [address] ALT No additional P-5'-P [Catalytic activity/Vol] 12 Int._Unit/L Normal 6-46 [facility] Comment on above: Performed By: #### 2 645440, 1558538, 1003181, 1495462, 7623993, 53747089, 5700776 #### [facility] [address] [place] [address] Anion gap [Moles/Vol] 16 mmol/L Normal 6-16 [facility] Comment on above: Performed By: #### 2 543199, 0243111, 2666176, 6590621, 4487366, 23987726, 0193436 #### [facility] [address] [place] [address] AST [Catalytic activity/Vol] 19 Int._Unit/L Normal 5-43 [facility] Comment on above: Performed By: #### 2 386970, 1279529, 4899538, 9421870, 9383850, 98402790, 2192390 #### [facility] [address] [place] [address] Bilirubin [Mass/Vol] 0.4 mg/dL Normal 0.0-1.1 [facility] Comment on above: Performed By: #### 2 316011, 2211466, 0367055, 7585750, 7586094, 56496510, 0532038 #### [facility] [address] [place] [address] Calcium [Mass/Vol] 9.4 mg/dL Normal 8.9-11.1 [facility] Comment on above: Performed By: #### 2 015020, 2623029, 2818093, 0572280, 6245556, 88497090, 5904668 #### [facility] [address] [place] [address] Chloride [Moles/Vol] 104 mmol/L Normal 101-111 [facility] Comment on above: Performed By: #### 2 244383, 5059845, 2332036, 9886128, 4112079, 11655387, 0237643 #### [facility] [address] [place] [address] CO2 [Moles/Vol] 24 mmol/L Normal 21-31 [facility] Comment on above: Performed By: #### 2 834735, 9724699, 3631684, 9899941, 0180329, 11535505, 5606360 #### [facility] [address] [place] [address] Creatinine [Mass/Vol] 0.9 mg/dL Normal 0.5-1.3 [facility] Comment on above: Performed By: #### 2 794218, 2144955, 8499669, 1216457, 1300888, 98006765, 6263666 #### [facility] [address] [place] [address] Globulin (S) [Mass/Vol] 2.7 g/dL Normal 1.4-4.0 [facility] Comment on above: Performed By: #### 2 976035, 0783278, 1562413, 2580164, 5166643, 57226599, 2067660 #### [facility] [address] [place] [address] Glucose [Mass/Vol] 129 mg/dL Normal 55-199 [facility] Comment on above: Performed By: #### 2 363792, 7916940, 0068463, 9921137, 4401484, 54790871, 0321222 #### [facility] [address] [place] [address] Potassium [Moles/Vol] 3.5 mmol/L Normal 3.5-5.3 [facility] Comment on above: Performed By: #### 2 211844, 5855793, 5425683, 2881164, 7055966, 92070362, 3164352 #### [facility] [address] [place] [address] Protein [Mass/Vol] 6.9 g/dL Normal 6.0-7.8 [facility] Comment on above: Performed By: #### 2 119674, 1050644, 3965921, 2030707, 6792737, 45382773, 5191810 #### [facility] [address] [place] [address] Sodium [Moles/Vol] 140 mmol/L Normal 135-145 [facility] Comment on above: Performed By: #### 2 899125, 6207956, 9532499, 6651106, 8040852, 71775479, 4746640 #### [facility] [address] [place] [address] Urea nitrogen [Mass/Vol] 14 mg/dL Normal 5-21 [facility] Comment on above: Performed By: #### 2 751398, 9411899, 4767708, 2067508, 3640649, 92139024, 3257985 #### [facility] [address] [place] [address] Urea nitrogen/Creatinine [Mass ratio] 16 No Units Normal 10-20 [facility] Comment on above: Performed By: #### 2 163115, 1034833, 2436704, 0043995, 9372980, 72980324, 7652833 #### [facility] [address] [place] [address] Ferritinon 08-19-2023 Ferritin [Mass/Vol] 24 ng/mL Normal 24-336 [facility] Comment on above: Performed By: #### 2 158972, 9234514, 3010111, 3886802, 1240188, 81314586, 4855162 #### [facility] [address] [place] [address] HEMATOLOGYOrdered By: SYSTEM SYSTEM on 08-19-2023 Basophils/100 WBC (Bld) 0.4 % Normal 0.0 - 2.0 % Remisol Heme Basophils/Leukocytes Auto (Bld) [Pure # fraction] 0.0 E9/L Normal 0.0 - 0.2 E9/L [facility] Eosinophils (Bld) [#/Vol] 0.1 E9/L Normal 0.0 - 0.5 E9/L [facility] Eosinophils/100 WBC (Bld) 1.6 % Normal 0.0 - 8.0 % Rem[facility] Heme Erythrocyte distribution width (RBC) [Ratio] 15.4 % High 10.9 - 14.2 % [facility] Hem[facility] Hematocrit (Bld) [Volume fraction] 38.0 % Normal 37.7 - 49.0 % Rem[facility] Heme Hemoglobin (Bld) [Mass/Vol] 12.1 g/dL Low 13.5 - 17.5 gm/dL [facility] Lymphocytes (Bld) [#/Vol] 0.8 E9/L Low 1.0 - 4.0 E9/L [facility] Lymphocytes/100 WBC (Bld) 12.1 % Low 14.0 - 50.0 % Remisol Heme MCH (RBC) [Entitic mass] 29.7 pg Normal 27.0 - 34.0 pg Remisol Heme MCHC (RBC) [Mass/Vol] 31.8 g/dL Normal 31.4 - 36.0 gm/dL Rem[facility] Heme MCV (RBC) [Entitic vol] 93.4 fL Normal 80.0 - 100.0 fL [facility] Monocytes (Bld) [#/Vol] 0.6 E9/L Normal 0.2 - 1.0 E9/L [facility] Monocytes/100 WBC (Bld) 8.4 % Normal 4.0 - 14.0 % [facility] Neutrophils (Bld) [#/Vol] 5.1 E9/L Normal 2.0 - 7.5 E9/L [facility] Neutrophils/100 WBC (Bld) 77.5 % High 36.0 - 75.0 % [facility] Heme Platelet 294.0 E9/L Normal 150.0 - 500.0 E9/L Remisol Heme Platelet mean volume (Bld) [Entitic vol] 7.3 fL Normal 6.4 - 10.8 fL Remisol Heme RBC (Bld) [#/Vol] 4.1 E12/L Low 4.3 - 5.9 E12/L Remisol Heme WBC corrected for nucl RBC Auto (Bld) [#/Vol] 6.6 E9/L Normal 4.0 - 11.0 E9/L Remisol Heme Ironon 08-19-2023 Iron [Mass/Vol] 53 microgram/dL Normal 35-153 [facility] Comment on above: Performed By: #### 1 [id number], [id number], [id number], [id number], [id number] #### [facility] [address] [place] [address] Iron Saturationon 08-19-2023 Iron binding capacity [Mass/Vol] 545 microgram/dL High 250-400 [facility] Comment on above: Performed By: #### 1 [id number], [id number], [id number], [id number] #### [facility] [address] [place] [address] Iron saturation [Mass fraction] 10 % Low 20-50 [facility] Comment on above: Performed By: #### 1 [id number], [id number], [id number], [id number], [id number], [id number] #### [facility] [address] [place] [address] Physician Orderon 08-19-2023 Physician Order [id number] Normal [facility] Transferrinon 08-19-2023 Transferrin [Mass/Vol] 389 mg/dL High 200-370 [facility] Comment on above: Performed By: #### 1 [id number], [id number], [id number], [id number], [id number], [id number] #### [facility] [address] [place] [address] eGFRon 08-19-2023 eGFR 88 mL/min/1.73 m2 Normal >=59 [facility] Comment on above: Order Comment: Order added by Discern Expert. Performed By: #### 1 [id number], [id number], [id number], [id number], [id number], [id number] #### [facility] [address] [place] [address] CNOVon 08-15-2023 CNOV Office Visit (CAEPAV ) IRENA PERAZA ([id number]) 1945 M Date Time Provider Department 08/15/23 2:40 PM ODALYS ROSA During your visit today, we recorded the following information about you: Pulse Blood pressure Weight 82/minute 136/60 95.5 kg Odalys Rosa MD 08/15/2023 8:11 PM Signed [facility] NOTE NAME: IRENA PERAZA CLINIC NO.: [id number] DATE OF SERVICE: 08/15/2023 ATTENDING PHYSICIAN: Odalys Rosa M.D. Office Visit The patient is a 78-year-old man with paroxysmal atrial fibrillation. I have known him for about 5 years. Atrial fibrillation first occurred about 20 years ago. He subsequently had a PVI at the [facility]. Atrial fibrillation recurred in 2015. A few years ago, when atrial fibrillation recurred and was associated with dyspnea and fatigue, he was started on Tikosyn. On this antiarrhythmic drug, he has had no recurrence of atrial fibrillation symptoms. He has had GI bleeding of unknown source despite an extensive GI workup. Dr. Kemp implanted a Watchman device several months ago and the patient is scheduled for a followup visit and probable discontinuation of Eliquis. In general, the patient feels well. MEDICATIONS: Reviewed in Epic including atenolol 50 mg daily, Tikosyn 500 mcg twice daily. PHYSICAL EXAMINATION: He looks well. Blood pressure 136/60, pulse rate 80 and regular. Lungs: No wheezes, rales, or rhonchi. Heart: First and second heart sounds normal. EKG done on April 26, 2023, sinus rhythm, within normal limits. IMPRESSION AND RECOMMENDATIONS: He will continue his current rhythm control strategy and I will see him again in 6 months. Please note that a pharmacologic nuclear stress test done 2 months ago demonstrated normal left ventricular size and systolic function and no evidence of scar or ischemia. DICTATED BY: Sergei Deng/PAOLA JOB# [id number] Electrical Inspector: Transcribed Clinic Note (chip) ID: [id number] 08/15/2023 3:25 PM Author: ODALYS ROSA Signed by ODALYS ROSA MD on 08/15/2023 at 8:11 PM * * * This document replaces document [id number] * * * Document text: [facility] NOTE NAME: IRENA PERAZA CLINIC NO.: [id number] DATE OF SERVICE: 08/15/2023 ATTENDING PHYSICIAN: Odalys Rosa M.D. Office Visit The patient is a 78-year-old man with paroxysmal atrial fibrillation. I have known him for about 5 years. Atrial fibrillation first occurred about 20 years ago. He subsequently had a PVI at the [facility]. Atrial fibrillation recurred in 2015. A few years ago, when atrial fibrillation recurred and was associated with dyspnea and fatigue, he was started on Tikosyn. On this antiarrhythmic drug, he has had no recurrence of atrial fibrillation symptoms. He has had GI bleeding of unknown source despite an extensive GI workup. Dr. Kemp implanted a Watchman device several months ago and the patient is scheduled for a followup visit and probable discontinuation of Eliquis. In general, the patient feels well. MEDICATIONS: Reviewed in Epic including atenolol 50 mg daily, Tikosyn 500 mcg twice daily. PHYSICAL EXAMINATION: He looks well. Blood pressure 136/60, pulse rate 80 and regular. Lungs: No wheezes, rales, or rhonchi. Heart: First and second heart sounds normal. EKG done on April 26, 2023, sinus rhythm, within normal limits. IMPRESSION AND RECOMMENDATIONS: He will continue his current rhythm control strategy and I will see him again in 6 months. Please note that a pharmacologic nuclear stress test done 2 months ago demonstrated normal left ventricular size and systolic function and no evidence of scar or ischemia. DICTATED BY: Sergei Deng/PAOLA JOB# [id number] ----- Allergies As of Date: 08/15/2023 (No Known Allergies) Date Reviewed: 08/15/2023 Reviewed by: Laura Johnson OCCA - Fully Assessed Reason for Visit: Established Patient [175] Cmt: Follow up - check up Primary Visit Diagnosis:Paroxysmal atrial fibrillation (HCC) [I48.0] Prescriptions as of 08/17/2023 - omega-3/dha/epa/fish oil (OMEGA-3 ORAL) Take by mouth. - atorvastatin (LIPITOR) 40 mg tablet take 1 tablet by mouth once daily - acetaminophen 650 mg CR tablet Every 12 hours - amoxicillin (AMOXIL) 500 mg capsule TAKE 2 CAPSULES BY MOUTH now then TAKE 1 CAPSULE BY MOUTH EVERY 6 HOURS UNTIL GONE - ketoconazole (NIZORAL) 2 % cream - DULoxetine (CYMBALTA) 60 mg capsule Take 1 capsule by mouth every afternoon. - fluticasone-vilantero l (BREO ELLIPTA) 100-25 mcg/dose inhaler INHALE 1 PUFF BY MOUTH DAILY - omega-3 acid ethyl esters (LOVAZA) (more content not included)... Normal [facility] CNOVon 07-18-2023 CNOV Office Visit (CARDAV ) IRENA PERAZA ([id number]) 1945 M Date Time Provider Department 07/18/23 10:20 AM ANGELI KIMBALL During your visit today, we recorded the following information about you: Pulse Blood pressure Weight Height 120/minute 150/84 96.7 kg 1.778 m Angeli Kimball MD 07/18/2023 11:01 AM Signed [facility] [place] [facility] Department of Cardiovascular Medicine SECTION OF REGIONAL CARDIOLOGY OUTPATIENT VISIT DATE April 24, 2023 OUTPATIENT VISIT TYPE ESTABLISHED PRIMARY CARE PHYSICIAN: [place] [address] CHIEF COMPLAINT: Arrhythmia HISTORY OF PRESENT ILLNESS: Mr. Peraza is a pleasant 78 year old male here for cardiovascular follow-up of her Hx of Atrial Fib now s/p watchman device. On follow up visit 4 months following implantation he was seen by Dr Kemp (implanted the device) and was told to stop the apixaban and comtinue Aspirin 81mg. Scheduled for a 1 year YOGESH. He is a patient of Dr Kimball. 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 A week ago he was in the pool and he wasn't feeling well and he went to [place] ED. A CT chest was done and showed mild pulmonary edema and trace B/L pleural effusions. He was told to take his lasix twice a day for 4 days. He was also found to have EVERTON with a Cr of 1.34. He has also noted that over the last couple of months his SOB has been getting worse. He has not had any chest pain at all. The following portions of the patient's history were reviewed and updated as appropriate, allergies, current medications, past medical, social, surgical, and family history and problem list. I have personally interviewed, confirmed and edited the above information if obtained by others. CURRENT MEDICATIONS: CURRENT MEDICATIONS furosemide (LASIX) 20 mg tabletTake 1 tablet by mouth once daily.Disp: 90 tabletRfl: 3 atenolol (TENORMIN) 50 mg tabletTake 1 tablet by mouth once daily.Disp: 90 tabletRfl: 3 dofetilide (TIKOSYN) 500 mcg capsuleTake 1 capsule by mouth twice daily.Disp: 180 capsuleRfl: 3 sodium chloride 0.9 %, flush, (BD POSIFLUSH) syringeInject 2-10 mL intravenously as directed. For Echo procedureDisp: 10 mLRfl: 0 sodium chloride 0.9 %, flush, (BD POSIFLUSH) syringeInject 2-10 mL intravenously as directed. For Echo procedureDisp: 10 mLRfl: 0 aspirin, enteric coated (ECOTRIN LOW STRENGTH) 81 mg EC tabletTake 1 tablet by mouth once daily.Disp: 30 tabletRfl: 5 atorvastatin (LIPITOR) 40 mg tabletTake 1 tablet by mouth once daily.Disp: 90 tabletRfl: 3 Fenofibrate (LOFIBRA) 160 mg tabletTAKE 1 TABLET ONCE DAILYDisp: 90 tabletRfl: 3 SYMBICORT 160-4.5 mcg/actuation inhalerInhale 2 Puffs as instructed twice daily.Disp: Rfl: cholecalciferol, vitamin D3, (VITAMIN D3 ORAL)Take by mouth.Disp: Rfl: magnesium oxide (MAG-OX) 400 mg (241.3 mg magnesium) tabletTake 1 tablet by mouth once daily.Disp: 30 tabletRfl: 5 Lcmov-1-ICB-EPA-Fish Oil 1,000 mg (120 mg-180 mg) capTake 2 g by mouth twice daily.Disp: Rfl: omeprazole (PRILOSEC) 40 mg capsuleTake 40 mg by mouth once daily.Disp: Rfl: rOPINIRole (REQUIP) 1 mg tabletTake 1 tablet by mouth daily at bedtime.Disp: Rfl: montelukast (SINGULAIR) 10 mg tabletmontelukast 10 mg tabletDisp: Rfl: allopurinol (ZYLOPRIM) 100 mg tabletTake 100 mg by mouth once daily.Disp: Rfl: 5 PROCTOZONE-HC 2.5 % rectal creamAPPLY TO THE AFFECTED AREA(S) 2-4 times dailyDisp: Rfl: 5 fluticasone (FLONASE) 50 mcg/actuation nasal sprayUse 1 [place] in each nostril once daily.Disp: Rfl: 0 coenzyme Q10 100 mg capTake 100 mg by mouth once daily. Disp: Rfl: LORATADINE (CLARITIN ORAL)Take 1 tablet by mouth once daily.Disp: Rfl: albuterol HFA (PROAIR HFA) 90 mcg/actuation inhalerInhale 2 Puffs as instructed every 6 hours as needed.Disp: 1 InhalerRfl: 0 Glucosamine-Chondroit -Vit C-Mn 500-400 mg capTake 1 capsule by mouth twice daily.Disp: Rfl: 0 Physical Exam There were no vitals taken for this visit. Gen: alert, no acute distress HEENT: normocephalic, atraumatic, no rinorrhea, no congestion, normal hearing, EOMI, no eye discharge Heart: no murmurs, S1/S2+, regular rate and rhythm Lungs: no wheezing, rales, symmetric expansion, nonlabored Abdomen: soft, nontender, nondistended Musculoskeletal: no edema, nontender Neurological: no focal deficits, alert, oriented Psychatric: cooperative, appropriate Pertinent Diagnostics/Labs/Data reviewed (ECG and echo listed personally reviewed) and include: Last ECHO Result Conclusion ECHO Collected: 05/18/2022 2:58 PM (Final result) Impression: CONCLUSIONS: - Exam indication: Pre Watchman, PAF - The left ventricle is normal in size. There is mild concentric left ventricular hype (more content not included)... Normal [facility] Ambulatory Visit Summaryon 0 06-24-2023 Ambulatory Visit Summary IRENA PERAZA :1945 Visit Date:06/24/2023 Ambulatory Visit Instructions Your Diagnosis Anemia due to GI blood loss History of colon polyps Your Care Team Attending Physician - Zuhair Beatty MD Primary Care Physician - Scarlett Gaviria CNP This Is Your Medications List Contact prescribing physician if questions or concerns allopurinol (allopurinol 100 mg Tab) apixaban (Eliquis) aspirin atenolol atorvastatin (Lipitor 40 mg Tab) budesonide-formoterol (Symbicort 80/4.5 inhalation aerosol with adapter) calcium citrate calcium-vitamin D chondroitin-glucosami ne (Chondroitin-Glucosam ine) dofetilide (Tikosyn 500 mcg oral capsule) duloxetine (duloxetine 30 mg Cap-DR) fenofibrate (fenofibrate 160 mg oral tablet) ferrous sulfate fluticasone (fluticasone HFA 44 mcg/inh Inhaler) fluticasone nasal (Flonase) gabapentin (gabapentin 300 mg Cap) montelukast (montelukast 10 mg Tab) omega-3 polyunsaturated fatty acids (Lovaza) omeprazole (omeprazole 40 mg Cap-EC) ropinirole (Requip 3 mg Tab) tizanidine (tiZANidine 4 mg Tab) tolterodine (tolterodine 4 mg Cap-ER) ubiquinone (CoQ10) vardenafil (Levitra 20 mg Tab) Procedures Performed Colonoscopy (07/27/2021), Bunionectomy (07/09/2021), Colonoscopy, flexible; with removal of tumor(s), polyp(s), or other lesion(s) by snare technique (12/22/2020), Epidural injection of cervical spine using fluoroscopic guidance (10/20/2020), Radiofrequency ablation of medial branch of lumbar nerve using fluoroscopic guidance (07/28/2020), Injection of facet joint using fluoroscopic guidance (07/08/2020), Injection of facet joint using fluoroscopic guidance (06/10/2020), Transurethral insertion of prostatic urethral lift implant (09/27/2018), Cystoscopy (08/30/2018), Arthrodesis of foot (05/19/2017), Carpal tunnel release (03/30/2017), Left carpal tunnel release (07/15/2016), EVLT RGSV, phleb. right leg (04/07/2016), Radiofrequency denervation of spinal facet joint of cervical vertebra (01/19/2016), Shoulder replacement (08/06/2015), Injection of facet joint using fluoroscopic guidance (05/19/2015), cervica medial branch block (04/04/2015), Transrectal biopsy of prostate using ultrasound (US) guidance (07/03/2014), skin lesion of left chest (melanoma) (2012), Lumbar discectomy (08/1994), Appendectomy, Cardiac ablation using fluoroscopy guidance, Colonoscopy, Colonoscopy, EGD, Excision of basal cell carcinoma, Hammer toe operation, Hernia, AGUS - Plication of left atrial appendage, Radiofrequency ablation of medial branch of cervical nerve using fluoroscopic guidance, Rotator cuff repair, Tonsillectomy. Discharge Vitals Heart Rate (Peripheral) 68 Respiratory Rate 18 Blood Pressure 138/80 Height 177 cm Height 70 in Weight 93 kg Weight 204.6 lb BMI 29.68 What to do next Scheduled Follow-Up Appointments Tuesday 1:45 PM EDT With: Jevon Pantoja DO Where: [facility] Tuesday 1:00 PM EDT With: Nghia ROBERSON MD Where: [facility] Gastroenterology Office/Clin ic Noteon 06-24-2023 Gastroenterology Office/Clinic Note Chief Complaint anemia d/t GI blood loss HPI Staff Patient is a(n) 78 year old male who presents today for a(n) 8 month follow up. Denies recent imaging. August of 2022 he stopped Eliquis. Last visit 10/14/22 w/Dr. Bolaños: Assessment/Plan 1. 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 His last hemoglobin was 12.7 a few days ago. He received IV iron a few months ago. There is no evidence of current GI bleeding. 2. Afib (I48.91: Unspecified atrial fibrillation) The patient used to be on Eliquis and stopped secondary to GI bleeding. 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 3. Former smoker (Z87.891: Personal history of nicotine dependence) Colonoscopy 01/2020 w/Taiwo: 21 polyps - TA fragments. Colonoscopy 08/2020 w/Taiwo: 12 polyps - TA's Colonoscopy 11/2020 w/Jonathanam: 12 polyps - hyperplastic and TA's EGD/Colonoscopy 06/2021 w/Miky: 2 hyperplastic polyps and haleigh esophagitis - recommended repeat colon in 2026 EGD 08/2021 w/Jonathanam: normal EGD Laboratory Results CBC CMP Basophil Absolute: 0.1 E9/L (05/20/23) A/G Ratio: 1.4 (05/20/23) Basophil Auto: 0.7 % (05/20/23) AGAP: 11 mEq/L (05/20/23) Eos Absolute: 0.3 E9/L (05/20/23) Albumin Lvl: 4 gm/dL (05/20/23) Eos Auto: 3.1 % (05/20/23) Alk Phos: 63 Int._Unit/L (05/20/23) Hct: 40 % (05/20/23) ALT: 21 Int._Unit/L (05/20/23) HGB: 12.9 gm/dL Low (05/20/23) AST: 19 Int._Unit/L (05/20/23) Lymph Absolute: 0.9 E9/L Low (05/20/23) Bili Total: 0.7 mg/dL (05/20/23) Lymph Auto: 10.2 % Low (05/20/23) BUN: 23 mg/dL High (05/20/23) MCH: 30.1 pg (05/20/23) BUN/Creat Ratio: 18 (05/20/23) MCHC: 32 gm/dL (05/20/23) Calcium Lvl: 9.9 mg/dL (05/20/23) MCV: 94.3 fL (05/20/23) Chloride: 98 mmol/L Low (05/20/23) [place] Absolute: 0.8 E9/L (05/20/23) CO2: 33 mmol/L High (05/20/23) [place] Auto: 8.9 % (05/20/23) Creatinine: 1.3 mg/dL (05/20/23) MPV: 7.6 fL (05/20/23) Globulin: 2.9 gm/dL (05/20/23) Neutro Absolute: 6.9 E9/L (05/20/23) Glucose Lvl: 83 mg/dL (05/20/23) Neutro Auto: 77.1 % High (05/20/23) Potassium Lvl: 4.5 mmol/L (05/20/23) Platelet: 279 E9/L (05/20/23) Sodium Lvl: 137 mmol/L (05/20/23) RBC: 4.3 E12/L (05/20/23) Total Protein: 6.9 gm/dL (05/20/23) RDW: 16.4 % High (05/20/23) WBC: 9 E9/L (05/20/23) Liver Studies Ferritin Lvl: 34 ng/mL (05/20/23) Ferritin Lvl: 128 ng/mL (12/24/22) Ferritin Lvl: 32 ng/mL (07/21/22) Ferritin Lvl: 127 ng/mL (03/04/22) Ferritin Lvl: 161 ng/mL (02/17/22) Ferritin Lvl: 912 ng/mL High (01/13/22) Ferritin Lvl: 50 ng/mL (11/05/21) Ferritin Lvl: 45 ng/mL (07/15/21) Iron: 127 mcg/dL (05/20/23) Iron: 84 mcg/dL (12/24/22) Iron: 43 mcg/dL (07/21/22) Iron: 73 mcg/dL (03/04/22) Iron: 91 mcg/dL (02/17/22) Iron: 81 mcg/dL (01/13/22) Iron: 45 mcg/dL (11/05/21) Iron: 41 mcg/dL (07/15/21) TIBC: 501 mcg/dL High (05/20/23) TIBC: 403 mcg/dL High (12/24/22) TIBC: 489 mcg/dL High (07/21/22) TIBC: 444 mcg/dL High (03/04/22) TIBC: 495 mcg/dL High (02/17/22) TIBC: 383 mcg/dL (01/13/22) TIBC: 445 mcg/dL High (11/05/21) TIBC: 513 mcg/dL High (07/15/21) Transferrin: 358 mg/dL (05/20/23) Transferrin: 288 mg/dL (12/24/22) Transferrin: 349 mg/dL (07/21/22) Transferrin: 317 mg/dL (03/04/22) Transferrin: 353 mg/dL (02/17/22) Transferrin: 274 mg/dL (01/13/22) Transferrin: 318 mg/dL (11/05/21) Transferrin: 367 mg/dL (07/15/21) History of Present Illness doing well overall had fatigue few months ago, no S&S GI bleeding Off eliquis Review of Systems PHQ Score Initial Depression Screen Score: 0 SCORE Physical Exam Vitals & Measurements HR: 68(Peripheral) RR: 18 BP: 138/80 HT: 70 in HT: 177 cm WT: 93 kg WT: 204.6 lb BMI: 29.68 General: in Nad Abdomen: Soft, NTND Assessment/Plan 1. 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 History of colon polyps (Z86.010: Personal history of colonic polyps) had multiple TAs and Hyperplastic ones repeat colonoscopy with 5 years from last one as recommended Follow-up No qualifying data available Problem List/Past Medical History Ongoing Afib Anemia Anemia due to gastrointestinal blood loss Anemia due to GI blood loss BMI 30.0-30.9,adult BPH with urinary obstruction Cancer Carpal tunnel syndrome Colon polyps Depression Discectomy Elevated PSA Enlarged prostate Erosion of intestine Feeling of incomplete bladder emptying Flank pain Former smoker Frequency of urination Frequent urination GERD H/O: atrial fibrillation Heart Hemorrhoids History of colon polyps History of skin cancer Hx of retirement use of blood thinners Hyperchol (more content not included)... Normal [facility] Comment on above: Result Comment: Elec tronically Signed By: Rogerio JARVIS, Zuhair Shen\.disha\Date and Time Signed: 06/24/23 11:36 EST CNOVon 06-22-2023 CNOV Office Visit (SPMESH ) IRENA PERAZA ([id number]) 1945 M Date Time Provider Department 06/22/23 3:15 PM [facility] During your visit today, we recorded the following information about you: Temperature Pulse Blood pressure Weight 99.1 degrees 102/minute 116/66 94.8 kg Height 1.778 m Alpa Ram DO 07/03/2023 7:54 PM Signed [facility] Neurological [facility] - Medical Spine Initial Exam SUBJECTIVE HISTORY OF PRESENT ILLNESS: Irena Peraza is a 78 year old male who presents with a chief complaint of low back pain. Reports low back pain for at least 30+ years, had L5-S1 discectomy in . Pain fluctuates on and off for a long time. Recently says his pain is now in the low back and buttock, some along the sacral region as well, worse with standing. Worst pain is midline lumbosacral region. Reports tingling and pain down the left > right leg, down the posterior thigh and leg, all the way to the foot. Denies weakness. Denies bowel/bladder incontinence or saddle anesthesia. The pain is currently 3/10. The pain can get to 8/10 at the highest. PAIN EVALUATION 06/22/2023 1450 Pain Level: 10 Pain Location: Back Description: Sharp;Stabbing/Not Incision;Numbness;Rad iating Duration Amount of Time: 6 Duration Units: Months Frequency: Intermittent Pain Radiation: As above Aggravating Factors: Standing, leaning forward Alleviating Factors: Stretching Pain Ratio: midline lumbosacral back Current Treatment: Medications Tylenol 650mg PRN Cymbalta 60mg Therapies No physical therapy recently Prior Treatment: Medications Therapies Acupuncture for the neck Prior spine interventions: RFA he thinks was done in the neck, maybe 5 years ago at [facility] Prior spine surgery: L5-S1 discectomy in Previously treated by: -Recently seen by PA working with Spine Surgeon Dr. Al Wiley in [place] and was planning [facility] PT. -Spine Medicine Dr. Bellamy. 2019 for cervical spine. Has had RFA locally and can pursue that. Try ROM exercises. Trial of Acupuncture for pain. PMH: PUD, GERD Afib s/p Watchman procedure CHF COPD h/o cancer: Melanoma PSH: PAST SURGICAL HISTORY Procedure Laterality Date APPENDECTOMY HX BACK SURGERY HX L5, S1 removed CARDIAC CATH 03/26/13 40-50% disease in mid LAD CARDIOVERSION 11/14/15 CATHETER, ABLATION A-, 2003 at [facility] HERNIA REPAIR HX 05/2011 left inguinal PAST SURGICAL HISTORY OF skin cancer removed from back, and from leg, nose,; also cyst removed PAST SURGICAL HISTORY OF 2013 Melanoma removed from left breast. PAST SURGICAL HISTORY OF 2012 bilateral cataract removal PAST SURGICAL HISTORY OF Left carpal tunnel release PAST SURGICAL HISTORY OF Right 2017 varicose vein surgery ROTATOR CUFF REPAIR x4 (2 on each shoulder) SHOULDER LEFT OUT PT SURGERY 08/2015 reverse total shoulder TONSILLECTOMY HX Social Tobacco: Former smoker Personal life: daughter is a dentist, son is a nurse Occupation: Retired Litigation: No Workers' Compensation: No YELLOW AND BLUE FLAGS No-Neg Attitude; Back Pain is Disabling No-Avoiding Activity (for Fear of Pain) No-Depression or Anxiety Disorders No-Social Problems No-Substance Use Disorder No-Job Dissatisfaction No-Financial Disincentives Patient Entered Questionnaires PROMIS Score Percentiles PROMIS Global Health Scale 07/01/2016 09/21/2016 02/10/2017 Physical Health Percentile 22* 41 22* Mental Health Percentile 53 26* 26* Percentiles provide an indication of how the patient's score ranks in relation to the general population. Higher percentile rankings indicate better function/quality of life. 50th percentile is the average of the general population and indicates half of respondents had a worse score. Depression Screening: PHQ-9 09/01/2011 06/26/2018 Score 2 3 PHQ-9 Self-Harm (Item 9) response options: 0 Not at all 1 Several days 2 More than half the days 3 Nearly every day PHQ-9 Levels: 0-4 No - mild depression 5-9 Mild depression 10-14 Moderate depression 15-19 Moderately severe depression 20-27 Severe depression ACTIVE PROBLEM LIST Paf (Paroxysmal Atrial Fibrillation) (Formerly [facility]) Former Smoker Obstructive Lung Disease (Hcc) Hyperlipemia Pud (Peptic Ulcer Disease) Gerd (Gastroesophageal Reflux Disease) Carpal Tunnel Syndrome Hx of Neck Disorder Rotator Cuff Tear Arthritis Depression Alcohol Use Lprd (Laryngopharyngeal Reflux Disease) Chronic Throat Clearing Biceps Rupture, Proximal Contracture of Shoulder Rotator Cuff Tear Arthropathy Complete Tear of Left Rotator Cuff Melanoma (Formerly [facility]) Htn (Hypertension), Benign Cervical Spine Pain Osteoarthritis Limitation of Joint Motion of Shoulder Acute On Chronic Diastolic Congestive Heart Failure (more content not included)... Normal [facility] XR lumbar spine 6V w bending on 06-20-2023 XR lumbar spine 6V w bending [facility] [place] [address] [place] [address] XRay Report Signed Patient: Irena Peraza MR#: [id number] 4 : 1945 Acct:[id number] Age/Sex: 78 / M ADM Date: 06/20/23 Loc: D Room: Type: [facility] Attending Dr: Yareli BLAS Copies to: ROOPA Wilson Ordering Provider: ROOPA Wilson Date of Service: 06/20/23 XR/XR lumbar spine 6V w bending: M48.062 - Spinal stenosis, lumbar region with neurogenic ... LUMBAR SPINE WITH FLEXION, EXTENSION AND BENDING VIEWS - 6 views: CLINICAL HISTORY: Low back pain radiating down the legs, greater on the left. No injury. COMPARISON: 05/11/2023 Standing AP neutral, right and left bending and lateral views in neutral, flexion and extension were obtained. There is mild thoracolumbar dextroscoliotic curvature. There is continued anterolisthesis of L4 and L5 of approximately 6 - 7 m . This increases to 8 - 9 mm with flexion. Alignment is otherwise maintained. No acute fractures are seen. There is lumbosacral disc space narrowing. The remaining disc spaces are maintained. There is minor endplate spurring. Mid and lower lumbar facet hypertrophy is present. There is minor SI joint sclerosis. No paraspinal soft tissue abnormalities are seen. There are clips suggesting previous urolift procedure. XR/XR lumbar spine 6V w bending IMPRESSION: SCOLIOSIS AND DEGENERATIVE CHANGES, GREATEST AT THE LOWER LUMBAR FACETS WHERE THERE IS ASSOCIATED L4-5 SPONDYLOLISTHESIS. Impression dictated by: Akua Loya M.D.06/20/2023 5:45 PM Dictation Location: [place] [address] Transcribed By: [facility] 06/20/231744 Dictated By: Akua Loya MD 06/20/231740 Signed By: 06/20/231744 [facility] NM CARDIAC PERF STRESS/PHARM on 06-16-2023 NM CARDIAC PERF STRESS/PHARM * * *Final Report* * * DATE OF EXAM: Jun 16 2023 3:13PM [facility] 0006 - NM CARDIAC PERF STRESS/PHARM / PROCEDURE REASON: multiple diagnoses * * * * Physician Interpretation * * * * PATIENT: Name: MR. IRENA PERAZA JR. Age: 78 years Gender: M CONCLUSIONS: 1. SPECT Perfusion Study: Normal. 2. There is no scintigraphic evidence for inducible ischemia. 3. No evidence of scarred myocardium. 4. There is a fixed perfusion defect in the RCA territory likely diaphragmatic attenuation. 5. Left ventricle is normal in size. The left ventricle systolic function is normal. 6. Right ventricle is normal in size. The right ventricle systolic function is normal. 7. This is a low risk scan. Gated Stress FBP Gated Rest FBP LVEF % 59 54 Prior Study Comparison Prior nuclear cardiology exam was performed on 10/31/2020. Nuclear Med Report:1-Day Gated SPECT Myocardial Perfusion with Regadenoson Stress: Myocardial perfusion imaging was performed at rest 30 minutes following the IV injection of the radiotracer. The patient received 0.4 mg of regadenoson, via rapid IV push, immediately followed by radiotracer IV. Gated post stress tomographic imaging was performed 30 to 60 minutes later. See administered radiotracer and doses below. [facility] Date of service: 06/16/2023 12:55:21 PM Ordering Physician: JACQUELINE TAMAYO. Requesting Physician: Indication: Dyspnea, CP - ECG interpretable AND able to exercise with interm/high pre-test probability and Unable to Exercise Interpreting physician: Radha Christie MD Previous Cardiovascular Interventions: Watchman Device (2022) Height: 177.80 cm BSA: 2.20 m? Weight: 97.98 kg BMI: 31.0 kg/m? Imaging Protocol Limitation Reason Diaphragmatic attenuation. Exam Type: Rest Stress Radiopharm: Tc-99m Tetrofosmin Tc-99m Tetrofosmin Dosage(mCi): 14.0 35.3 Stress Agent: Regadenoson 0.4mg Supply provided from [facility] Resting Blood Press: 136/68 mmHg Image Quality The overall study imaging quality was deemed to be fair. The following technical issues were noted: Diaphragmatic attenuation. FINDINGS: Stress IR:3D Gated Stress FBP Gated Rest FBP LVEF: 59 % 54 % ED Volume: 147 ml 155 ml ES Volume: 60 ml 72 ml TID: 0.93 Perfusion Findings Stress IR:3D - Summed Score=0 All segments demonstrate normal perfusion. Rest IR:3D - Summed Score=0 All segments demonstrate normal perfusion. Stress IR:3D Rest IR:3D Summed Score=0 Summed Score=0 LEFT VENTRICLE The left ventricle is normal in size. Left ventricular systolic function is normal. Right Ventricle The right ventricle is normal in size. Right ventricle systolic function is normal. Stress Test Findings: There is no scintigraphic evidence for inducible ischemia. There is no evidence of scarring. * * * Final * * * -------- Stress ECG Report: [facility] Date of service: 06/16/2023 12:55:21 PM Ordering physician: JACQUELINE TAMAYO security assurance specialist: Sujatha Lim Interpreting physician: Amy Ledezma MD Patient name: MR. IRENA PERAZA JR. Age: 78 years Gender: M Height: 177.80 cm BSA: 2.20 m? Weight: 97.98 kg BMI: 31.0 kg/m? Indication: Chest pressure / Chest tightness, Shortness of breath and Encounter for screening for cardiovascular disorders Stress ECG Conclusion: Conclusion: Normal Prior exam comparison: Less abnormality Stress ECG Summary: The patient's resting heart rate was 65 bpm and blood pressure was 136/68 mmHg. The test was terminated due to end of protocol. No symptoms provoked during stress. The maximum heart rate was 75 bpm, which is 53% of the predicted heart rate for age. Peak blood pressure was 120/62 mmHg. The double product achieved was 9000. Previous cardiovascular interventions: Watchman Device (2022) Medications: Last Used ATENOLOL 1 Days TIKOSYN 6 Hours Resting ECG: Normal Sinus Rhythm, 1st Degree AV block and Rare PACs (<3/Min) Symptoms at rest: No symptoms Pharamcologic Protocol: Regadenoson Stress Exercise Table: +-----+--+---+---+ Stage HR SYS TASH +-----+--+---+---+ 1 78 +-----+--+---+---+ 2 75 120 62 +-----+--+---+---+ 3 75 122 64 +-----+--+---+---+ 4 75 130 64 +-----+--+---+---+ +-----+--+---+---+ HR SYS TASH +-----+--+---+---+ Final 75 120 62 +-----+--+---+---+ +------+ ---------+ Stage Arrhythmias +------+ ---------+ 1 Isotope Injection and Regadenoson Injection +------+ ---------+ 2 Rare PAC (<3/min) +------+ ---------+ Recovery Table: +- (more content not included)... Normal [facility] Heart Perfusion W stress and W radionuclide Marcos 06-16-2023 * * *Final Report* * * DATE OF EXAM: Jun 16 2023 3:13PM [address] CARDIAC PERF STRESS/PHARM / PROCEDURE REASON: multiple diagnoses * * * * Physician Interpretation * * * * PATIENT: Name: MR. IRENA PERAZA JR. Age: 78 years Gender: M CONCLUSIONS: 1. SPECT Perfusion Study: Normal. 2. There is no scintigraphic evidence for inducible ischemia. 3. No evidence of scarred myocardium. 4. There is a fixed perfusion defect in the RCA territory likely diaphragmatic attenuation. 5. Left ventricle is normal in size. The left ventricle systolic function is normal. 6. Right ventricle is normal in size. The right ventricle systolic function is normal. 7. This is a low risk scan. Gated Stress FBP Gated Rest FBP LVEF % 59 54 Prior Study Comparison Prior nuclear cardiology exam was performed on 10/31/2020. Nuclear Med Report:1-Day Gated SPECT Myocardial Perfusion with Regadenoson Stress: Myocardial perfusion imaging was performed at rest 30 minutes following the IV injection of the radiotracer. The patient received 0.4 mg of regadenoson, via rapid IV push, immediately followed by radiotracer IV. Gated post stress tomographic imaging was performed 30 to 60 minutes later. See administered radiotracer and doses below. [facility] Date of service: 06/16/2023 12:55:21 PM Ordering Physician: JACQUELINE TAMAYO. Requesting Physician: Indication: Dyspnea, CP - ECG interpretable AND able to exercise with interm/high pre-test probability and Unable to Exercise Interpreting physician: Radha Christie MD Previous Cardiovascular Interventions: Watchman Device (2022) Height: 177.80 cm BSA: 2.20 m Weight: 97.98 kg BMI: 31.0 kg/m Imaging Protocol Limitation Reason Diaphragmatic attenuation. Exam Type: Rest Stress Radiopharm: Tc-99m Tetrofosmin Tc-99m Tetrofosmin Dosage(mCi): 14.0 35.3 Stress Agent: Regadenoson 0.4mg Supply provided from [facility] Resting Blood Press: 136/68 mmHg Image Quality The overall study imaging quality was deemed to be fair. The following technical issues were noted: Diaphragmatic attenuation. FINDINGS: Stress IR:3D Gated Stress FBP Gated Rest FBP LVEF: 59 % 54 % ED Volume: 147 ml 155 ml ES Volume: 60 ml 72 ml TID: 0.93 Perfusion Findings Stress IR:3D - Summed Score=0 All segments demonstrate normal perfusion. Rest IR:3D - Summed Score=0 All segments demonstrate normal perfusion. Stress IR:3D Rest IR:3D Summed Score=0 Summed Score=0 LEFT VENTRICLE The left ventricle is normal in size. Left ventricular systolic function is normal. Right Ventricle The right ventricle is normal in size. Right ventricle systolic function is normal. Stress Test Findings: There is no scintigraphic evidence for inducible ischemia. There is no evidence of scarring. * * * Final * * * -------- Stress ECG Report: [facility] Date of service: 06/16/2023 12:55:21 PM Ordering physician: JACQUELINE TAMAYO security assurance specialist: Sujatha Lim Interpreting physician: Amy Ledezma MD Patient name: MR. IRENA PERAZA JR. Age: 78 years Gender: M Height: 177.80 cm BSA: 2.20 m Weight: 97.98 kg BMI: 31.0 kg/m Indication: Chest pressure / Chest tightness, Shortness of breath and Encounter for screening for cardiovascular disorders Stress ECG Conclusion: Conclusion: Normal Prior exam comparison: Less abnormality Stress ECG Summary: The patient's resting heart rate was 65 bpm and blood pressure was 136/68 mmHg. The test was terminated due to end of protocol. No symptoms provoked during stress. The maximum heart rate was 75 bpm, which is 53% of the predicted heart rate for age. Peak blood pressure was 120/62 mmHg. The double product achieved was 9000. Previous cardiovascular interventions: Watchman Device (2022) Medications: Last Used ATENOLOL 1 Days TIKOSYN 6 Hours Resting ECG: Normal Sinus Rhythm, 1st Degree AV block and Rare PACs (<3/Min) Symptoms at rest: No symptoms Pharamcologic Protocol: Regadenoson Stress Exercise Table: +-----+--+---+---+ Stage HR SYS TASH +-----+--+---+---+ 1 78 +-----+--+---+---+ 2 75 120 62 +-----+--+---+---+ 3 75 122 64 +-----+--+---+---+ 4 75 130 64 +-----+--+---+---+ +-----+ (more content not included)... DIVISION OF RADIOLOGY Provider, [facility] - 06/16/2023 * * *Final Report* * * DATE OF EXAM: Jun 16 2023 3:13PM [facility] 0006 - NM CARDIAC PERF STRESS/PHARM / PROCEDURE REASON: multiple diagnoses * * * * Physician Interpretation * * * * PATIENT: Name: MR. IRENA PERAZA JR. Age: 78 years Gender: M CONCLUSIONS: 1. SPECT Perfusion Study: Normal. 2. There is no scintigraphic evidence for inducible ischemia. 3. No evidence of scarred myocardium. 4. There is a fixed perfusion defect in the RCA territory likely diaphragmatic attenuation. 5. Left ventricle is normal in size. The left ventricle systolic function is normal. 6. Right ventricle is normal in size. The right ventricle systolic function is normal. 7. This is a low risk scan. Gated Stress FBP Gated Rest FBP LVEF % 59 54 Prior Study Comparison Prior nuclear cardiology exam was performed on 10/31/2020. Nuclear Med Report:1-Day Gated SPECT Myocardial Perfusion with Regadenoson Stress: Myocardial perfusion imaging was performed at rest 30 minutes following the IV injection of the radiotracer. The patient received 0.4 mg of regadenoson, via rapid IV push, immediately followed by radiotracer IV. Gated post stress tomographic imaging was performed 30 to 60 minutes later. See administered radiotracer and doses below. [facility] Date of service: 06/16/2023 12:55:21 PM Ordering Physician: JACQUELINE TAMAYO. Requesting Physician: Indication: Dyspnea, CP - ECG interpretable AND able to exercise with interm/high pre-test probability and Unable to Exercise Interpreting physician: Radha Christie MD Previous Cardiovascular Interventions: Watchman Device (2022) Height: 177.80 cm BSA: 2.20 m Weight: 97.98 kg BMI: 31.0 kg/m Imaging Protocol Limitation Reason Diaphragmatic attenuation. Exam Type: Rest Stress Radiopharm: Tc-99m Tetrofosmin Tc-99m Tetrofosmin Dosage(mCi): 14.0 35.3 Stress Agent: Regadenoson 0.4mg Supply provided from [facility] Resting Blood Press: 136/68 mmHg Image Quality The overall study imaging quality was deemed to be fair. The following technical issues were noted: Diaphragmatic attenuation. FINDINGS: Stress IR:3D Gated Stress FBP Gated Rest FBP LVEF: 59 % 54 % ED Volume: 147 ml 155 ml ES Volume: 60 ml 72 ml TID: 0.93 Perfusion Findings Stress IR:3D - Summed Score=0 All segments demonstrate normal perfusion. Rest IR:3D - Summed Score=0 All segments demonstrate normal perfusion. Stress IR:3D Rest IR:3D Summed Score=0 Summed Score=0 LEFT VENTRICLE The left ventricle is normal in size. Left ventricular systolic function is normal. Right Ventricle The right ventricle is normal in size. Right ventricle systolic function is normal. Stress Test Findings: There is no scintigraphic evidence for inducible ischemia. There is no evidence of scarring. * * * Final * * * -------- Stress ECG Report: [facility] Date of service: 06/16/2023 12:55:21 PM Ordering physician: JACQUELINE TAMAYO security assurance specialist: Sujatha Lim Interpreting physician: Amy Ledezma MD Patient name: MR. IRENA PERAZA JR. Age: 78 years Gender: M Height: 177.80 cm BSA: 2.20 m Weight: 97.98 kg BMI: 31.0 kg/m Indication: Chest pressure / Chest tightness, Shortness of breath and Encounter for screening for cardiovascular disorders Stress ECG Conclusion: Conclusion: Normal Prior exam comparison: Less abnormality Stress ECG Summary: The patient's resting heart rate was 65 bpm and blood pressure was 136/68 mmHg. The test was terminated due to end of protocol. No symptoms provoked during stress. The maximum heart rate was 75 bpm, which is 53% of the predicted heart rate for age. Peak blood pressure was 120/62 mmHg. The double product achieved was 9000. Previous cardiovascular interventions: Watchman Device (2022) Medications: Last Used ATENOLOL 1 Days TIKOSYN 6 Hours Resting ECG: Normal Sinus Rhythm, 1st Degree AV block and Rare PACs (<3/Min) Symptoms at rest: No symptoms Pharamcologic Protocol: Regadenoson Stress Exercise Table: +-----+--+---+---+ Stage HR SYS TASH +-----+--+---+---+ 1 78 +-----+--+---+---+ 2 75 120 62 +-----+--+---+---+ 3 75 122 64 +-----+--+---+---+ 4 75 130 64 +-----+--+---+---+ +-----+--+---+---+ HR SYS TASH +-----+--+---+---+ Final 75 120 62 +-----+--+---+---+ +------+ ---------+ Stage Arrhythmias +------+ ---------+ 1 Isotope Injection and Regadenoson Injectio (more content not included)... [facility] Radiology Study observation (narrative) [facility] NM Heart Perfusion W stress and W radionuclide IVOrdered By: [facility] (CARDST) IRENA PERAZA ([id number]) 1945 M Date Time Provider Department 06/15/23 NURSE CARD [facility] STRO CARDST During your visit today, we recorded the following information about you: Sujatha Lim RN 06/15/2023 1:18 PM Signed Patient scheduled for NM/Pharm stress test in [place] tomorrow, old order discontinued, need new order please. Forward to Dr. Simms. Please advise. Sujatha Lim RN 06/15/2023 2:10 PM Signed Forward to Randa mcconnell. Please advise. Allergies As of Date: 06/15/2023 (No Known Allergies) Date Reviewed: 04/26/2023 Reviewed by: Esther Rapp RN - Fully Assessed Primary Visit Diagnosis:Atypical chest pain [R07.89] Other Visit Diagnoses:ANDERSEN (dyspnea on exertion) [R06.09] Hyperlipidemia, unspecified hyperlipidemia type [E78.5] Order(s):NM CARDIAC PERF STRESS/PHARM [[id number]] Order #: [id number] FUTURE Prescriptions as of 06/15/2023 - atorvastatin (LIPITOR) 40 mg tablet Take 1 tablet by mouth once daily. - ADVAIR DISKUS 100-50 mcg/dose inhaler Inhale as instructed two times a day. - tolterodine ER (DETROL LA) 4 mg 24 hr capsule Take 4 mg by mouth once daily. - meloxicam (MOBIC) 15 mg tablet Take 1 tablet by mouth every afternoon. - furosemide (LASIX) 20 mg tablet Take 1 tablet by mouth once daily. - atenolol (TENORMIN) 50 mg tablet Take 1 tablet by mouth once daily. - dofetilide (TIKOSYN) 500 mcg capsule Take 1 capsule by mouth twice daily. - aspirin, enteric coated (ECOTRIN LOW STRENGTH) 81 mg EC tablet Take 1 tablet by mouth once daily. - Fenofibrate (LOFIBRA) 160 mg tablet TAKE 1 TABLET ONCE DAILY - SYMBICORT 160-4.5 mcg/actuation inhaler Inhale 2 Puffs as instructed twice daily. - cholecalciferol, vitamin D3, (VITAMIN D3 ORAL) Take by mouth. - magnesium oxide (MAG-OX) 400 mg (241.3 mg magnesium) tablet Take 1 tablet by mouth once daily. - Qqled-5-GXE-EPA-Fish Oil 1,000 mg (120 mg-180 mg) cap Take 2 g by mouth twice daily. - omeprazole (PRILOSEC) 40 mg capsule Take 40 mg by mouth once daily. - rOPINIRole (REQUIP) 1 mg tablet Take 1 tablet by mouth daily at bedtime. - montelukast (SINGULAIR) 10 mg tablet montelukast 10 mg tablet - allopurinol (ZYLOPRIM) 100 mg tablet Take 100 mg by mouth once daily. - PROCTOZONE-HC 2.5 % rectal cream APPLY TO THE AFFECTED AREA(S) 2-4 times daily - fluticasone (FLONASE) 50 mcg/actuation nasal spray Use 1 [place] in each nostril once daily. - coenzyme Q10 100 mg cap Take 100 mg by mouth once daily. - LORATADINE (CLARITIN ORAL) Take 1 tablet by mouth once daily. - albuterol HFA (PROAIR HFA) 90 mcg/actuation inhaler Inhale 2 Puffs as instructed every 6 hours as needed. - Glucosamine-Chondroit -Vit C-Mn 500-400 mg cap Take 1 capsule by mouth twice daily. Facility-Administered Medications as of 06/15/2023 - perflutren lipid microspheres 1.3 mL in NaCl (PF) 0.9% 10 mL injection (DEFINITY) - sodium chloride 0.9 % (flush) 10 mL (BD POSIFLUSH) Meds Comments as of 09/01/2016: Omeprazole is taken prn Problem List As Of Date 06/15/2023 Noted Resolved PAF (paroxysmal atrial fibrillation) ([facility]) [I48* Former smoker [Z87.891] Obstructive lung disease [J44.9] Hyperlipemia [E78.5] PUD (peptic ulcer disease) [K27.9] GERD (gastroesophageal reflux disease) [K21.9] Carpal tunnel syndrome [G56.00] Hx of neck disorder [Z87.39] Rotator cuff tear [M75.100] Arthritis [M19.90] Depression [F32.A] Alcohol use LPRD (laryngopharyngeal reflux disease) [K21.9] 12/30/2011 Chronic throat clearing [R09.89] 12/30/2011 Biceps rupture, proximal [S46.119A] 05/29/2015 Contracture of shoulder [M24.519] 05/29/2015 Rotator cuff tear arthropathy [M75.100, M12.819]05/29/2015 Complete tear of left rotator cuff [M75.122] 05/29/2015 Melanoma ([facility]) [C43.9] 07/23/2015 HTN (hypertension), benign [I10] 07/23/2015 Cervical spine pain [M54.2] Osteoarthritis [M19.90] 08/06/2015 Limitation of joint motion of shoulder [M25.619]08/20/2015 Acute on chronic diastolic congestive heart win*10/31/2015 Chronic diastolic congestive heart failure (HCC*12/19/2015 Right shoulder pain [M25.511] 09/21/2016 Stiffness of shoulder joint [M25.619] 09/21/2016 Weakness of shoulder [R29.898] 09/21/2016 Obesity, Class I, BMI 30-34.9 [E66.9] 01/03/2018 Persistent atrial fibrillation (HCC) [I48.19] 07/28/2018 Visit for monitoring Tikosyn therapy [Z51.81, Z*09/06/2018 Gastrointestinal hemorrhage [K92.2] 05/18/2022 IRB 21-1031 [employer] (*05/19/2022 Atrial fibrillation (HCC) [I48.91] 05/19/2022 Low back pain, unspecified [M54.50] 01/12/2022 Encounter Status:Closed by JACQUELINE TAMAYO on 06/15/23 Normal [facility] ECHO LIMITEDon 06-13-2023 ECHO LIMITED Echocardiography Report: [facility] Date of service: 06/13/2023 12:02:39 PM MANAGER Ordering physician: MICHAEL SIMMS Indication: Limited TTE to assess LV function Technologist: Aviva Cannon Interpreting physician: Quiana Calles MD PATIENT: Name: IRENA PERAZA : 1945 Age: 78 years Gender: M History of hypertension, coronary artery disease, dyslipidemia and COPD, atrial fibrillation managed with dofetilide and prior cardioversions (last one in June 2021), hypertension, hyperlipidemia, former smoker_COPD and history of occult GI bleeding. Previous cardiovascular interventions: CAD (03/26/2013) : 40-50% mid LAD Cardioversion (06/2021) Afib ablation LA appendage closure (05/2022) Primary rhythm: sinus. Height: 177.80 cm BSA: 2.20 m Weight: 98.40 kg BMI: 31.1 kg/m Heart rate 85 bpm Blood pressure 138/74 mmHg Technically difficult exam due to suboptimal positioning. Color Doppler was utilized to interrogate the cardiac valves assessed and spectral Doppler was utilized to determine the flow velocities and pressure gradients reported in this exam. Myocardial strain analysis was performed in this exam to aid in the assessment of cardiac function. MEASUREMENTS: Value Indexed Normal Max aortic dimension 4.4 cm Ao < 3.8 LV ID (diastole) 5.1 cm (2D) 2.31 cm/m LV ID (systole) 4.3 cm (2D) 1.95 cm/m IVS, leaflet tips 1.2 cm (2D) Posterior wall thickness 1.3 cm (2D) Left ventricular mass 255 g (2D) 116 g/m Global peak long strain -14.2 % LV stroke volume 78 ml (2D biplane) LV end diastolic volume 145 ml (2D biplane) 65.6 ml/m 34<=EDVi<75 LV end systolic volume 66 ml (2D biplane) 30.0 ml/m Ejection Fraction 54 % (2D biplane) EF > 52 FINDINGS: LEFT VENTRICLE The left ventricle is normal in size. Left ventricular systolic function is normal. Global LV myocardial strain is abnormal. Left ventricular diastolic function was not evaluated due to limited echo. RIGHT VENTRICLE The right ventricle is normal in size. Right ventricular systolic function is normal globally. RV systolic tissue Doppler velocity is 9.9 cm/s. Tricuspid annular displacement is 2.5 cm. Estimated right ventricular systolic pressure is 42 mmHg consistent with mild pulmonary hypertension. Estimated right atrial pressure is 3 mmHg based on IVC assessment. LEFT [facility] Pulmonary Veins: The pulmonary venous pattern showed blunted systolic flow. RIGHT [facility] Inferior Vena Cava: The inferior vena cava appears normal measuring 1.9 cm. The vessel decreases greater than 50 percent with inspiration. MITRAL VALVE The mitral valve leaflets are structurally normal. There is trace (trace - 1+) mitral valve regurgitation. TRICUSPID VALVE There is mild (1+ - 2+) tricuspid valve regurgitation. There is no thickening. AORTIC VALVE There is mild (1+) aortic valve regurgitation due to sinus dilatation. Tricuspid aortic valve. There is mild thickening. The peak gradient is 5 mmHg (peak velocity = 115.0 cm/s). PULMONIC VALVE The pulmonic valve was not seen or not interrogated. There is trace pulmonic valve regurgitation. AORTA The visualized aorta is dilated. Measurements - Sinus: 4.0 cm. Mid ascending aorta 4.4 cm. PULMONARY ARTERIES The pulmonary arteries are unseen or not interrogated. INTERATRIAL SEPTUM There is no evidence of intracardiac shunting as detected by Doppler. PERICARDIUM There is no pericardial effusion. There is an epicardial fat pad. CONCLUSIONS: - Technically difficult exam due to suboptimal positioning. - Exam indication: Limited TTE to assess LV function - The left ventricle is normal in size. Left ventricular systolic function is normal. EF = 54 5% (2D biplane) - The right ventricle is normal in size. Right ventricular systolic function is normal. - The visualized aorta is dilated with a maximal dimension of 4.4 cm. - Increase in aorta measurement, previously a max dimension of 4.1cm. - Exam was compared with the prior echocardiographic exam performed on 09/14/2022 (YOGESH). ascending aorta more dilated. * * * Final * * * CC [employer] Image : [id number] Normal [facility] Lipid 1996 panelon 4 Cholesterol [Mass/Vol] 189 mg/dL Normal <200 [facility] Comment on above: Order Comment: Speci men Type: BLOOD SPECIMENOrdering Facility: [facility] Address: [address] [place] [address] Result Comment: <200 mg/dL, Desirable 200-239 mg/dL, Borderline high >239 mg/dL, High Performed By: #### 2 4331-1 ####[facility] LABCLIA [id number] [address] LABCLIA [id number] [place] [address] Cholesterol in HDL [Mass/Vol] 42 mg/dL Normal >39 [facility] Comment on above: Order Comment: Speci men Type: BLOOD SPECIMENOrdering Facility: [facility] Address: [address] [place] [address] Result Comment: 40-5 9 mg/dL, Acceptable >59 mg/dL, High: Negative risk factor for coronary heart disease <40 mg/dL, Low: Positive risk factor for coronary heart disease Performed By: #### 2 4331-1 ####[facility] LABCLIA [id number] [address] LABCLIA [id number] [place] [address] Cholesterol in LDL [Mass/Vol] 81 mg/dL Normal <100 [facility] Comment on above: Order Comment: Speci men Type: BLOOD SPECIMENOrdering Facility: [facility] Address: [address] [place] [address] Result Comment: <100 mg/dL, Optimal 100-129 mg/dL, Near optimal/above optimal 130-159 mg/dL, Borderline high 160-189 mg/dL, High >189 mg/dL, Very high Secondary prevention optimal LDL Cholesterol levels are recommended to be < 70 mg/dL Performed By: #### 2 4331-1 ####[facility] LABCLIA [id number] [address] LABCLIA [id number] [place] [address] Cholesterol in LDL/Cholesterol in HDL [Mass ratio] 1.93 {ratio} Normal <2.54 [facility] Comment on above: Order Comment: Speci men Type: BLOOD SPECIMENOrdering Facility: [facility] Address: [address] [place] [address] Result Comment: Refe rence: 1. National Cholesterol Education Program ATP III Guideline At-A-Glance Quick Desk Reference: National Heart, Lung, and Blood [place]. National Institutes of Health. 2001: NIH Publication No. 01-3305. 2. An International Atherosclerosis Society position paper: global recommendations for the management of dyslipidemia: executive summary, Atherosclerosis. 2014: 232(2):410-413. Performed By: #### 2 4331-1 ####[facility] LABCLIA [id number] [address] LABCLIA [id number] [place] [address] Cholesterol in VLDL [Mass/Vol] 66 mg/dL High <30 [facility] Comment on above: Order Comment: Domenica men Type: BLOOD SPECIMENOrdering Facility: [facility] Address: [address] [place] [address] Performed By: #### 2 4331-1 ####[facility] LABCLIA [id number] [address] LABCLIA [id number] [place] [address] Cholesterol non HDL [Mass/Vol] 147 mg/dL High <130 [facility] Comment on above: Order Comment: Speci men Type: BLOOD SPECIMENOrdering Facility: [facility] Address: [address] [place] [address] Result Comment: <130 mg/dL, Optimal 130-159 mg/dL, Near optimal/above optimal 160-189 mg/dL, Borderline high 190-219 mg/dL, High >219 mg/dL, Very high Secondary prevention optimal non HDL Cholesterol levels are recommended to be <100 mg/dL Performed By: #### 2 4331-1 ####[facility] LABCLIA [id number] [address] LABCLIA [id number] [place] [address] Cholesterol.total/Cho lesterol in HDL [Mass ratio] 4.50 {ratio} Normal <5.10 [facility] Comment on above: Order Comment: Speci men Type: BLOOD SPECIMENOrdering Facility: [facility] Address: [address] [place] [address] Performed By: #### 2 4331-1 ####[facility] LABCLIA [id number] [address] LABCLIA [id number] [place] [address] FASTING TIME 12 hrs Normal [facility] Comment on above: Order Comment: Speci men Type: BLOOD SPECIMENOrdering Facility: [facility] Address: [address] [place] [address] Performed By: #### 2 4331-1 ####[facility] LABCLIA [id number] [address] LABCLIA [id number] [place] [address] Triglyceride [Mass/Vol] 331 mg/dL High <150 [facility] Comment on above: Order Comment: Speci men Type: BLOOD SPECIMENOrdering Facility: [facility] Address: [address] [place] [id number] Result Comment: <150 mg/dL, Normal 150-199 mg/dL, Borderline high 200-499 mg/dL, High >499 mg/dL, Very high Performed By: #### 2 4331-1 ####[facility] LABCLIA [id number] [facility] [id number] [address] [facility] LABCLIA [id number] [place] [address] MRI Spine Lumbar w/ + w/o Co ntraston 05-23-2023 MRI Spine Lumbar w/ + w/o Contrast Exam Date/Time: 05/20/2023 15:41 EST Reason for Exam: M54.40 Report IMPRESSION: MULTILEVEL DEGENERATIVE DISC DISEASE AND LUMBAR SPONDYLOSIS DESCRIBED IN DETAIL, WORST AT L4-5. EXAM: MRI Spine Lumbar w/ + w/o Contrast DATE: 05/20/2023 CLINICAL HISTORY: M54.40. COMPARISON: Lumbosacral spine radiographs 05/11/[address] abdomen and pelvis 10/30/2021. TECHNIQUE: Multiplanar MR imaging of the lumbar spine was performed before and after intravenous administration of approximately 10 mL Vueway gadolinium contrast. FINDINGS: The spine is visualized from T11-12 through S2, on the diagnostic sagittal sequences. Alignment: Lumbar lordosis is maintained. Anterolisthesis of L4 over L5 approximately 7 to 8 mm, similar to the prior studies. Vertebral body heights and remaining alignment are within normal limits. Bone marrow signal/fracture: Minimal degenerative endplate changes. No abnormal enhancement identified. Conus: The conus is within normal limits of signal intensity and morphology. Paraspinal soft tissues: Small renal cysts that do not require further imaging follow-up. Paraspinal soft tissues are otherwise unremarkable. No abnormal enhancement identified. T11-12: Moderate disc space narrowing, mild posterolateral endplate osteophytosis with associated broad-based disc protrusion/bulging, and moderate to marked hypertrophic facet and ligamentum flavum changes, which results in borderline central spinal stenosis and moderate to marked neural foraminal narrowing. T12-L1: Mild hypertrophic facet and ligamentum flavum changes, without central spinal stenosis, neural foraminal narrowing, or a discrete disc protrusion. L1-2: Borderline to minimal disc space narrowing, mild posterolateral endplate osteophytosis with associated broad-based disc protrusion/bulging, and mild hypertrophic facet and ligamentum flavum changes, without central spinal stenosis or neural foraminal narrowing. Report L2-3: Mild posterolateral endplate osteophytosis with associated broad-based disc protrusion/bulging, and mild hypertrophic facet and ligamentum flavum changes, without central spinal stenosis or neural foraminal narrowing. L3-4: Borderline to minimal disc space narrowing, mild to moderate posterolateral endplate osteophytosis with associated broad-based disc protrusion/bulging, and moderate hypertrophic facet and ligamentum flavum changes, which results in moderate central spinal stenosis and neural foraminal narrowing. L4-5: Grade 1 anterolisthesis, mild to moderate disc space narrowing, moderate diffuse disc bulging and marked hypertrophic facet and ligamentum flavum changes, which results in moderate to marked central spinal stenosis and neural foraminal narrowing. L5-1: Moderate to marked disc space narrowing, mild posterolateral endplate osteophytosis with associated broad-based disc protrusion/bulging moderate hypertrophic facet and ligamentum flavum changes and previous left laminotomy, which results in mild to moderate neural foraminal narrowing, greater on the right. Sacrum and iliac wings: Unremarkable. Ordering Provider: Scarlett Gaviria FINAL REPORT Dictated: 05/23/2023 12:29 pm Karlo Saldana MD Signed (Electronic Signature): 05/23/2023 12:29 pm Signed by: Karlo Saldana MD Transcribed by: JADEN Technologist: MARILUZ Technical Comments Vueway Contrast amount in ml's: 10 Normal [facility] Consent for Treatmenton 05-03 Consent for Treatment [id number]# 1.00TIFF Normal [facility] CBC w/ Auto Diffon 4 Basophil Absolute 0.1 E9/L Normal 0.0-0.2 [facility] Comment on above: Performed By: #### 1 5161677, 8232909, 7540327, 6331484, 7521170, 1761344, 4087247 #### [facility] [address] [place] [address] Basophils/100 WBC (Bld) 0.7 % Normal 0.0-2.0 [facility] Comment on above: Performed By: #### 1 9508881, 3430028, 9430312, 1777344, 7279735, 1459240, 2449002 #### [facility] [address] [place] [address] Eos Absolute 0.3 E9/L Normal 0.0-0.5 [facility] Comment on above: Performed By: #### 1 0424520, 8794771, 7466253, 7649851, 5043554, 6257316, 7240341 #### [facility] [address] [place] [address] Eosinophils/100 WBC (Bld) 3.1 % Normal 0.0-8.0 [facility] Comment on above: Performed By: #### 1 7641412, 5634139, 0543362, 3327248, 2935828, 4972989, 7511950 #### [facility] [address] [place] [address] Erythrocyte distribution width (RBC) [Ratio] 16.4 % High 10.9-14.2 [facility] Comment on above: Performed By: #### 1 5609077, 7765763, 1917500, 9762944, 8900055, 8685510, 3175365 #### [facility] [address] [place] [address] Hematocrit (Bld) [Volume fraction] 40.0 % Normal 37.7-49.0 [facility] Comment on above: Performed By: #### 1 3720281, 3802467, 6639282, 1306305, 3228789, 2188117, 1506039 #### [facility] [address] [place] [address] Hemoglobin (Bld) [Mass/Vol] 12.9 g/dL Low 13.5-17.5 [facility] Comment on above: Performed By: #### 1 1868429, 2082523, 3242052, 4938356, 4661242, 6645891, 5487584 #### [facility] [address] [place] [address] Lymph Absolute 0.9 E9/L Low 1.0-4.0 [facility] Comment on above: Performed By: #### 1 9786818, 4379373, 0480872, 0595552, 8844321, 2026365, 5698843 #### [facility] [address] [place], [place] [address] Lymphocytes/100 WBC (Bld) 10.2 % Low 14.0-50.0 [facility] Comment on above: Performed By: #### 1 9161669, 5055554, 8481781, 9456450, 3562377, 6736842, 2089791 #### [facility] [address] [place] [address] MCH (RBC) [Entitic mass] 30.1 pg Normal 27.0-34.0 [facility] Comment on above: Performed By: #### 1 1078563, 1747282, 4570185, 4415688, 7412156, 2802087, 1103856 #### [facility] [address] [place] [address] MCHC (RBC) [Mass/Vol] 32.0 g/dL Normal 31.4-36.0 [facility] Comment on above: Performed By: #### 1 7958484, 0257751, 5856381, 6438362, 2300768, 1673178, 2717569 #### [facility] [address] [place] [address] MCV (RBC) [Entitic vol] 94.3 fL Normal 80.0-100.0 [facility] Comment on above: Performed By: #### 1 6763553, 9016712, 5182336, 7742106, 8977713, 7902999, 5863200 #### [facility] [address] [place] [address] [place] Absolute 0.8 E9/L Normal 0.2-1.[address] [facility] Comment on above: Performed By: #### 1 1819422, 4192069, 4732327, 7290212, 4134289, 9823334, 3194251 #### [facility] [address] [place] [address] Monocytes/100 WBC (Bld) 8.9 % Normal 4.0-14.0 [facility] Comment on above: Performed By: #### 1 1034671, 7242376, 9823088, 7833759, 7569429, 2599209, 4594437 #### [facility] [address] [place] [address] Neutro Absolute 6.9 E9/L Normal 2.0-7.5 [facility] Comment on above: Performed By: #### 1 7722509, 1633970, 7250969, 7665307, 0274416, 1995810, 3044193 #### [facility] [address] [place] [address] Neutro Auto 77.1 % High 36.0-75.0 [facility] Comment on above: Performed By: #### 1 2343573, 2513919, 4499617, 0479290, 3954563, 0041831, 4877177 #### [facility] [address] [place] [address] Platelet 279.0 E9/L Normal 150.0-500.0 [facility] Comment on above: Performed By: #### 1 9758317, 8564676, 7692522, 4127575, 2065064, 2527767, 7057208 #### [facility] [address] [place] [address] Platelet mean volume (Bld) [Entitic vol] 7.6 fL Normal 6.4-10.8 [facility] Comment on above: Performed By: #### 1 1992568, 0342887, 2144272, 1326735, 8047230, 8988605, 8994707 #### [facility] [address] [place] [address] RBC 4.3 E12/L Normal 4.3-5.9 [facility] Comment on above: Performed By: #### 1 2219881, 8936981, 0101113, 5612854, 0230379, 5745101, 4344710 #### [facility] [address] [place] [address] WBC 9.0 E9/L Normal 4.0-11.0 [facility] Comment on above: Performed By: #### 1 5217977, 3804161, 7765440, 9664213, 8664091, 1716022, 5511886 #### [facility] [address] [place] [address] CHEMISTRYOrdered By: SYSTEM SYSTEM on 05-20-2023 Albumin [Mass/Vol] 4.0 g/dL Normal 3.3 - 5.0 gm/dL [facility] Albumin/Globulin [Mass ratio] 1.4 {ratio} Normal 1.1 - 2.2 [facility] Alk Phos 63 [iU]/d Normal 21 - 98 Int._Unit/L [facility] ALT 21 [iU]/d Normal 6 - 46 Int._Unit/L [facility] Anion gap [Moles/Vol] 11 mmol/L Normal 6 - 16 mEq/L R emisol Chem AST 19 [iU]/d Normal 5 - 43 Int._Unit/L [facility] Bili Total 0.7 mg/dL Normal 0.0 - 1.1 mg/dL [facility] Calcium [Mass/Vol] 9.9 mg/dL Normal 8.9 - 11. 1 mg/dL [facility] Chloride [Moles/Vol] 98 mmol/L Low 101 - 1 11 mmol/L [facility] CO2 [Moles/Vol] 33 mmol/L High 21 - 31 mmol/L [facility] Creatinine [Mass/Vol] 1.3 mg/dL Normal 0.5 - 1.3 mg/dL [facility] eGFR 56 mL/min/1.73 m2 Low >=59mL/min /1 .73 m2 [facility] Ferritin Lvl 34 ng/mL Normal 24 - 336 ng/mL [facility] Globulin (S) [Mass/Vol] 2.9 g/dL Normal 1.4 - 4.0 gm/dL [facility] Glucose [Mass/Vol] 83 mg/dL Normal 55 - 199 mg/dL [facility] Iron [Mass/Vol] 127 ug/dL Normal 35 - 153 mcg/dL [facility] Iron Sat 25 % Normal 20 - 50 % [facility] Potassium [Moles/Vol] 4.5 mmol/L Normal 3.5 - 5.3 mmol/L [facility] Protein [Mass/Vol] 6.9 g/dL Normal 6.0 - 7.8 gm/dL [facility] Sodium [Moles/Vol] 137 mmol/L Normal 135 - 145 mmol/L [facility] TIBC 501 ug/dL High 250 - 400 mcg/dL [facility] Transferrin [Mass/Vol] 358 mg/dL Normal 200 - 370 mg/dL [facility] Urea nitrogen [Mass/Vol] 23 mg/dL High 5 - 21 mg/dL [facility] Urea nitrogen/Creatinine [Mass ratio] 18 mg/mg Normal 10 - 20 [facility] CMPon 05-20-2023 Albumin [Mass/Vol] 4.0 g/dL Normal 3.3-5.0 [facility] Comment on above: Performed By: #### 1 4584949, 0686049, 3327090, 2636818, 4051697, 7594983, 2393468 #### [facility] [address] [place] [address] Albumin/Globulin [Mass ratio] 1.4 {ratio} Normal 1.1-2.2 [facility] Comment on above: Performed By: #### 1 3790746, 4424410, 5291378, 5600480, 5986528, 6374631, 8751152 #### [facility] [address] [place] [address] Alk Phos 63 Int._Unit/L Normal 21-98 [facility] Comment on above: Performed By: #### 1 5915213, 8048085, 3992327, 2321428, 0062583, 6993511, 0732810 #### [facility] [address] [place] [address] ALT 21 Int._Unit/L Normal 6-46 [facility] Comment on above: Performed By: #### 1 6527660, 6754941, 4038797, 8774024, 0532747, 0152584, 9969974 #### [facility] [address] [place] [address] AST 19 Int._Unit/L Normal 5-43 [facility] Comment on above: Performed By: #### 1 3992420, 4626478, 3030787, 9116680, 4372404, 0198138, 8905480 #### [facility] [address] [place] [address] Bili Total 0.7 mg/dL Normal 0.0-1.1 [facility] Comment on above: Performed By: #### 1 5300354, 6804123, 6018156, 8503191, 0310055, 4287522, 9180476 #### [facility] [address] [place] [address] Globulin (S) [Mass/Vol] 2.9 g/dL Normal 1.4-4.0 [facility] Comment on above: Performed By: #### 1 0384181, 0370150, 2127273, 0894485, 4583246, 6600324, 8768503 #### [facility] [address] [place] [address] Protein [Mass/Vol] 6.9 g/dL Normal 6.0-7.8 [facility] Comment on above: Performed By: #### 1 2933924, 1357465, 9030273, 4598825, 0470744, 1626421, 5613653 #### [facility] [address] [place] [address] Anion gap [Moles/Vol] 11 mmol/L Normal 6-16 [facility] Comment on above: Performed By: #### 1 1116874, 8807477, 0706489, 6617151, 3455677, 0604726, 3378988 #### [facility] [address] [place] [address] BUN/Creat Ratio 18 No Units Normal 10-20 [facility] Comment on above: Performed By: #### 1 3540508, 7461069, 7539062, 6829627, 0523478, 3358917, 9675350 #### [facility] [address] [place] [address] Calcium [Mass/Vol] 9.9 mg/dL Normal 8.9-11.1 [facility] Comment on above: Performed By: #### 1 0488027, 9841684, 9448503, 6439871, 4219136, 6226215, 2331529 #### [facility] [address] [place] [address] Chloride [Moles/Vol] 98 mmol/L Low 101-111 [facility] Comment on above: Performed By: #### 1 9790639, 3672767, 4231533, 1886903, 5798952, 5553415, 8628961 #### [facility] [address] [place] [address] CO2 [Moles/Vol] 33 mmol/L High 21-31 [facility] Comment on above: Performed By: #### 1 4017447, 5335485, 3987205, 0239241, 5840115, 4892200, 3684475 #### [facility] [address] [place] [address] Creatinine [Mass/Vol] 1.3 mg/dL Normal 0.5-1.3 [facility] Comment on above: Performed By: #### 1 8390658, 9461623, 2999001, 8442606, 8388473, 3996132, 7106252 #### [facility] [address] [place] [address] Glucose [Mass/Vol] 83 mg/dL Normal 55-199 [facility] Comment on above: Performed By: #### 1 7323515, 9375423, 0001292, 6060533, 4067168, 8646846, 8368302 #### [facility] [address] [place] [address] Potassium [Moles/Vol] 4.5 mmol/L Normal 3.5-5.3 [facility] Comment on above: Performed By: #### 1 9725314, 3022950, 0736982, 7504204, 6286516, 5785450, 1731441 #### [facility] [address] [place] [address] Sodium [Moles/Vol] 137 mmol/L Normal 135-145 [facility] Comment on above: Performed By: #### 1 8019775, 2431547, 1134872, 4950605, 3623745, 1283965, 7261499 #### [facility] [address] [place] [address] Urea nitrogen [Mass/Vol] 23 mg/dL High 5-21 [facility] Comment on above: Performed By: #### 1 2339851, 3184682, 7374442, 4002290, 0373021, 0147964, 1295180 #### [facility] [address] [place] [address] Consent for Treatmenton 05-02 Consent for Treatment [id number]#1 .00TIFF Normal [facility] Ferritinon 05-20-2023 Ferritin Lvl 34 ng/mL Normal 24-336 [facility] Comment on above: Performed By: #### 1 1459934, 5179885, 7133115, 1263667, 7671938, 7746225, 5524770 #### [facility] [address] [place] [address] HEMATOLOGYOrdered By: SYSTEM SYSTEM on 05-20-2023 Basophil Absolute 0.1 E9/L Normal 0.0 - 0.2 E9/L [facility] Basophils/100 WBC (Bld) 0.7 % Normal 0.0 - 2.0 % [facility] Eos Absolute 0.3 E9/L Normal 0.0 - 0.5 E9/L [facility] Eosinophils/100 WBC (Bld) 3.1 % Normal 0.0 - 8.0 % [facility] Erythrocyte distribution width (RBC) [Ratio] 16.4 % High 10.9 - 14.2 % [facility] Hematocrit (Bld) [Volume fraction] 40.0 % Normal 37.7 - 49.0 % [facility] Hemoglobin (Bld) [Mass/Vol] 12.9 g/dL Low 13.5 - 17.5 gm/dL [facility] Lymph Absolute 0.9 E9/L Low 1.0 - 4.0 E9/L [facility] Lymphocytes/100 WBC (Bld) 10.2 % Low 14.0 - 50.0 % [facility] MCH (RBC) [Entitic mass] 30.1 pg Normal 27.0 - 34.0 pg [facility] MCHC (RBC) [Mass/Vol] 32.0 g/dL Normal 31.4 - 36.0 gm/dL [facility] MCV (RBC) [Entitic vol] 94.3 fL Normal 80.0 - 100.0 fL [facility] [place] Absolute 0.8 E9/L Normal 0.2 - 1.0 E9/L [facility] Monocytes/100 WBC (Bld) 8.9 % Normal 4.0 - 14.0 % [facility] Neutro Absolute 6.9 E9/L Normal 2.0 - 7.5 E9/L [facility] Neutro Auto 77.1 % High 36.0 - 75.0 % [facility] Platelet 279.0 E9/L Normal 150.0 - 500.0 E9/L [facility] Platelet mean volume (Bld) [Entitic vol] 7.6 fL Normal 6.4 - 10.8 fL [facility] RBC 4.3 E12/L Normal 4.3 - 5.9 E12/L [facility] WBC 9.0 E9/L Normal 4.0 - 11.0 E9/L [facility] Ironon 05-20-2023 Iron 127 microgram/dL Normal 35-153 [facility] Comment on above: Performed By: #### 1 9257527, 2124663, 5242289, 2949445, 8874474, 7074824, 7479473 #### [facility] [address] [place] [address] Iron Saturationon 05-20-2023 Iron Sat 25 % Normal 20-50 [facility] Comment on above: Performed By: #### 1 1380374, 7961008, 7376829, 3336661, 0049186, 9426892, 9638367 #### [facility] [address] [place] [address] TIBC 501 microgram/dL High 250-400 [facility] Comment on above: Performed By: #### 1 0906007, 5277405, 9625458, 6953519, 5328921, 5130187, 2033507 #### [facility] [address] [place] [address] Physician Orderon 05-20-2023 Physician Order [id number]# 1.00TIFF Normal [facility] RAD - MRI Screening Formon 0 05-20-2023 RAD - MRI Screening Form [id number]# 1.00TIFF Normal [facility] Transferrinon 05-20-2023 Transferrin [Mass/Vol] 358 mg/dL Normal 200-370 [facility] Comment on above: Performed By: #### 1 9402507, 2659392, 3938108, 5868175, 2054603, 6818189, 8452560 #### [facility] [address] [place] [address] XR Foreign Body Loc Eye Bila teralon 05-20-2023 XR Foreign Body Loc Eye Bilateral Exam Date/Time: 05/20/2023 13:21 EST Reason for Exam: Foreign body for MRI Report IMPRESSION: No radiopaque foreign body. EXAMINATION/TECHNIQUE : XR Foreign Body Loc Eye Bilateral HISTORY: Possible foreign body. COMPARISON: None RESULT: No radiopaque foreign body. No acute osseous findings. Artifact from dental amalgam. No other significant abnormality. Ordering Provider: Scarlett Gaviria FINAL REPORT Dictated: 05/20/2023 1:33 pm Emanuel Neumann MD Signed (Electronic Signature): 05/20/2023 1:33 pm Signed by: Emanuel Neumann MD Transcribed by: JADEN Technologist: RACIEL Technical Comments Radiation Dose: Ka,r in mGy = na DAP = na Normal [facility] eGFRon 05-20-2023 eGFR 56 mL/min/1.73 m2 Low >=59 [facility] Comment on above: Order Comment: Order added by Discern Expert. Performed By: #### 1 3186571, 3839480, 8244136, 7864114, 7842955, 1784985, 1169578 #### [facility] [address] [place] [address] Physician Orderon 05-19-2023 Physician Order [id number]# 1.00TIFF Normal [facility] Physician Orderon 05-16-2023 Physician Order [id number]# 1.00TIFF Normal [facility] XR Spine Lumbosacral Minimum 4 Viewson 05-13-2023 XR Spine Lumbosacral Minimum 4 Views Exam Date/Time: 05/11/2023 15:09 EST Reason for Exam: M54.40 Report IMPRESSION: Grade 1 L4 spondylolisthesis with degenerative change lower lumbar spine. CLINICAL HISTORY: M54.40 COMPARISON: NONE FINDINGS: 6 views of the lumbosacral spine. Lumbar vertebral bodies are normal in height. 8 mm anterolisthesis L4 on L5. Diffuse disc space narrowing L5-S1. Small anterior osteophytes L4 and L5. Increased facet sclerosis L4 and L5. No fracture or bone lesion. Multiple surgical clips overlie region of prostate. Ordering Provider: Scarlett Gaviria FINAL REPORT Dictated: 05/13/2023 4:18 pm Gerardo Tellez MD Signed (Electronic Signature): 05/13/2023 4:18 pm Signed by: Gerardo Tellez MD Transcribed by: JADEN Technologist: JOVANI Technical Comments Radiation Dose: Ka,r in mGy = 0 DAP = 0 Normal [facility] Consent for Treatmenton 05-02 Consent for Treatment [id number] .[id number] Normal [facility] Physician Orderon 05-11-2023 Physician Order [id number]# 1.00TIFF Normal [facility] Basic metabolic 2000 panelon 04-26-2023 Anion gap [Moles/Vol] 8 mmol/L Low 9-18 [facility] Comment on above: Order Comment: Speci men Type: BLOOD SPECIMEN Ordering Facility: [facility] Address: [address] [place] [address] Performed By: #### 2 4321-2 #### [facility] CLIA [id number] [place] [address] [place] Calcium [Mass/Vol] 9.8 mg/dL Normal 8.5-10.2 [facility] Comment on above: Order Comment: Speci men Type: BLOOD SPECIMEN Ordering Facility: [facility] Address: [address] [place] [address] Performed By: #### 2 4321-2 #### [facility] IA [id number] [address] [place] [address] [place] Chloride [Moles/Vol] 104 mmol/L Normal 97-105 [facility] Comment on above: Order Comment: Speci men Type: BLOOD SPECIMEN Ordering Facility: [facility] Address: [address] [place] [address] Performed By: #### 2 4321-2 #### [facility] CLIA [id number] [address] [place] [address] [place] CO2 [Moles/Vol] 29 mmol/L Normal 22-30 [facility] Comment on above: Order Comment: Speci men Type: BLOOD SPECIMEN Ordering Facility[facility] Address: [address] [place] [address] Performed By: #### 2 4321-2 #### [facility] CLIA [id number] [address] [place] [address] [place] Creatinine [Mass/Vol] 1.17 mg/dL Normal 0.73-1.22 [facility] Comment on above: Order Comment: Domenica barboza Type: BLOOD SPECIMEN Ordering Facility: [facility] Address: [place] [address] Performed By: #### 2 4321-2 #### [facility] CLIA [id number] [address] [place] [address] [place] Creatinine and Glomerular filtration rate.predicted panel (S/P/Bld) 64 mL/min/1.73m??? Normal >=60 [facility] Comment on above: Order Comment: Domenica barboza Type: BLOOD SPECIMEN Ordering [facility] Address: [place] [address] Result Comment: Celia mated Glomerular Filtration Rate (eGFR) is calculated using the 2020 CKD-EPI creatinine equation. This equation utilizes serum creatinine, sex, and age as parameters. The creatinine assay has traceable calibration to isotope dilution-mass spectrometry. Refer to KDIGO guidelines for clinical interpretation. In patients with unstable renal function, e.g. those with acute kidney injury, the eGFR may not accurately reflect actual GFR. Performed By: #### 2 4321-2 #### [facility] CLIA [id number] [address] [place] [address] [place] Glucose [Mass/Vol] 111 mg/dL High 74-99 [facility] Comment on above: Order Comment: Domenica barboza Type: BLOOD SPECIMEN Ordering [facility] Address: [place] [address] Result Comment: The [place] Diabetes Association (ADA) provides guidance for cutoff values for fasting glucose and random glucose. The ADA defines fasting as no caloric intake for at least 8 hours. Fasting plasma glucose results between 100 to 125 mg/dL indicate increased risk for diabetes (prediabetes). Fasting plasma glucose results greater than or equal to 126 mg/dL meet the criteria for diagnosis of diabetes. In the absence of unequivocal hyperglycemia, results should be confirmed by repeat testing. In a patient with classic symptoms of hyperglycemia or hyperglycemic crisis, random plasma glucose results greater than or equal to 200 mg/dL meet the criteria for diagnosis of diabetes. Reference: Standards of Medical Care in Diabetes 2016, [place] Diabetes Association. Diabetes Care. 2016.39(Suppl 1). Performed By: #### 2 4321-2 #### [facility] CLIA [id number] [address] [place] [address] [place] Potassium [Moles/Vol] 4.5 mmol/L Normal 3.7-5.1 [facility] Comment on above: Order Comment: Domenica barboza Type: BLOOD SPECIMEN Order[facility] Address: [address] [place] [address] Performed By: #### 2 4321-2 #### [facility] CLIA [id number] [address] [place] [address] [place] Sodium [Moles/Vol] 141 mmol/L Normal 136-144 [facility] Comment on above: Order Comment: Domenica barboza Type: BLOOD SPECIMEN Order[facility] Address: [address] [place] [address] Performed By: #### 2 4321-2 #### [facility] IA [id number] [address] [place] [address] [place] Urea nitrogen [Mass/Vol] 20 mg/dL Normal 9-24 [facility] Comment on above: Order Comment: Domenica barboza Type: BLOOD SPECIMEN Ordering [facility] Address: [address] [place] [address] Performed By: #### 2 4321-2 #### [facility] IA [id number] [address] [place] [address] [place] CNOVon 04-26-2023 CNOV Office Visit (CARINF ) IRENA PERAZA ([id number]) 1945 M Date Time Provider Department 04/26/23 11:30 AM MICHAEL SIMMS During your visit today, we recorded the following information about you: Pulse Blood pressure Weight 86/minute 138/74 98.4 kg Michael Simms MD 04/26/2023 12:23 PM Signed [facility] [place] [facility] Department of Cardiovascular Medicine [facility]CTION [facility] CARDIOLOGY OUTPATIENT VISIT DATE April 24, 2023 OUTPATIENT VISIT TYPE ESTABLISHED PRIMARY CARE PHYSICIAN: Scarlett Gaviria NP [address] [facility] [place] [address] CHIEF COMPLAINT: Arrhythmia HISTORY OF PRESENT ILLNESS: Mr. Peraza is a pleasant 78 year old male here for cardiovascular follow-up of her Hx of Atrial Fib now s/p watchman device. On follow up visit 4 months following implantation he was seen by Dr Kemp (implanted the device) and was told to stop the apixaban and comtinue Aspirin 81mg. Scheduled for a 1 year YOGESH. He is a patient of Dr Kimball. 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 A week ago he was in the pool and he wasn't feeling well and he went to [place] ED. A CT chest was done and showed mild pulmonary edema and trace B/L pleural effusions. He was told to take his lasix twice a day for 4 days. He was also found to have [place] with a Cr of 1.34. He has also noted that over the last couple of months his SOB has been getting worse. He has not had any chest pain at all. The following portions of the patient's history were reviewed and updated as appropriate, allergies, current medications, past medical, social, surgical, and family history and problem list. I have personally interviewed, confirmed and edited the above information if obtained by others. CURRENT MEDICATIONS: furosemide (LASIX) 20 mg tabletTake 1 tablet by mouth once daily.Disp: 90 tabletRfl: 3 atenolol (TENORMIN) 50 mg tabletTake 1 tablet by mouth once daily.Disp: 90 tabletRfl: 3 dofetilide (TIKOSYN) 500 mcg capsuleTake 1 capsule by mouth twice daily.Disp: 180 capsuleRfl: 3 sodium chloride 0.9 %, flush, (BD POSIFLUSH) syringeInject 2-10 mL intravenously as directed. For Echo procedureDisp: 10 mLRfl: 0 sodium chloride 0.9 %, flush, (BD POSIFLUSH) syringeInject 2-10 mL intravenously as directed. For Echo procedureDisp: 10 mLRfl: 0 aspirin, enteric coated (ECOTRIN LOW STRENGTH) 81 mg EC tabletTake 1 tablet by mouth once daily.Disp: 30 tabletRfl: 5 atorvastatin (LIPITOR) 40 mg tabletTake 1 tablet by mouth once daily.Disp: 90 tabletRfl: 3 Fenofibrate (LOFIBRA) 160 mg tabletTAKE 1 TABLET ONCE DAILYDisp: 90 tabletRfl: 3 SYMBICORT 160-4.5 mcg/actuation inhalerInhale 2 Puffs as instructed twice daily.Disp: Rfl: cholecalciferol, vitamin D3, (VITAMIN D3 ORAL)Take by mouth.Disp: Rfl: magnesium oxide (MAG-OX) 400 mg (241.3 mg magnesium) tabletTake 1 tablet by mouth once daily.Disp: 30 tabletRfl: 5 Htmex-3-SBZ-EPA-Fish Oil 1,000 mg (120 mg-180 mg) capTake 2 g by mouth twice daily.Disp: Rfl: omeprazole (PRILOSEC) 40 mg capsuleTake 40 mg by mouth once daily.Disp: Rfl: rOPINIRole (REQUIP) 1 mg tabletTake 1 tablet by mouth daily at bedtime.Disp: Rfl: montelukast (SINGULAIR) 10 mg tabletmontelukast 10 mg tabletDisp: Rfl: allopurinol (ZYLOPRIM) 100 mg tabletTake 100 mg by mouth once daily.Disp: Rfl: 5 PROCTOZONE-HC 2.5 % rectal creamAPPLY TO THE AFFECTED AREA(S) 2-4 times dailyDisp: Rfl: 5 fluticasone (FLONASE) 50 mcg/actuation nasal sprayUse 1 [place] in each nostril once daily.Disp: Rfl: 0 coenzyme Q10 100 mg capTake 100 mg by mouth once daily. Disp: Rfl: LORATADINE (CLARITIN ORAL)Take 1 tablet by mouth once daily.Disp: Rfl: albuterol HFA (PROAIR HFA) 90 mcg/actuation inhalerInhale 2 Puffs as instructed every 6 hours as needed.Disp: 1 InhalerRfl: 0 Glucosamine-Chondroit -Vit C-Mn 500-400 mg capTake 1 capsule by mouth twice daily.Disp: Rfl: 0 Physical Exam There were no vitals taken for this visit. Gen: alert, no acute distress HEENT: normocephalic, atraumatic, no rinorrhea, no congestion, normal hearing, EOMI, no eye discharge Heart: no murmurs, S1/S2+, regular rate and rhythm Lungs: no wheezing, rales, symmetric expansion, nonlabored Abdomen: soft, nontender, nondistended Musculoskeletal: no edema, nontender Neurological: no focal deficits, alert, oriented Psychatric: cooperative, appropriate Pertinent Diagnostics/Labs/Data reviewed (ECG and echo listed personally reviewed) and include: Last ECHO Result Conclusion ECHO Collected: 05/18/2022 2:58 PM (Final result) Impression: CONCLUSIONS: - Exam indication: Pre Watchman, PAF - The left ventricle is normal in size. There is mild concentric left ventricular hypertrophy. Left ventricular systol (more content not included)... Normal [facility] BGL23ig 04-26-2023 ECG01 Ventricular Rate : 8 6 BPM Atrial Rate : 86 BPM P-R Interval : 226 ms QRS Duration : 86 ms Q-T Interval : 396 ms QTC Calculation(Bazett) : 473 ms Calculated P [place] : 72 degrees Calculated R [place] : -6 degrees Calculated T [place] : 31 degrees SINUS RHYTHM WITH 1ST DEGREE AV BLOCK WITH PREMATURE ATRIAL COMPLEXES . ( R in aVL , [place] product ) LEFT AXIS DEVIATION BORDERLINE ECG Confirmed by ROBIN MCKEON MD ([id number]) on 04/30/2023 1:07:31 AM NAME : IRENA PERAZA PID : [id number] : 1945 Gender : Male Race : ORD : Procedure Date : Apr 26 2023 11:44:57 Edit Date : Apr 30 2023 01:07:32 Diagnosis: SINUS RHYTHM WITH 1ST DEGREE AV BLOCK WITH PREMATURE ATRIAL COMPLEXES . ( R in aVL , [place] product ) LEFT AXIS DEVIATION BORDERLINE ECG Confirmed by ROBIN MCKEON MD ([id number]) on 04/30/2023 1:07:31 AM Test Reason : Location : 192 : AVCRD Overread By : ROBIN MCKEON MD Edited By : ROBIN MCKEON MD Referred By : , Acquired by : , Normal [facility] Tele[facility] (CARDAV) IRENA PERAZA ([id number]) 1945 M Date Time Provider Department 04/21/23 ANGELI KIMBALL During your visit today, we recorded the following information about you: Caryl Jimenez 04/21/2023 12:54 PM Addendum Patient left a voice message on 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 Advised by physician to follow up Dr. 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 Dr. Kimball is out of the office till May 23. Routing to nursing pool to triage to determine when patient needs seen. Please call patient at [phone]. [place] visit is not currently available in Care Everywhere, records may be needed. In the mean time, patient has been scheduled with Dr. Michael Simms for April 26. Akua Lou RN 04/21/2023 3:55 PM Signed Pt accepting the appt. Pt states he is having no chest pain at this time. Pt to bring copy of his CT Scan pt is doubling up on his lasix at this time. Allergies As of Date: 04/21/2023 (No Known Allergies) Date Reviewed: 09/14/2022 Reviewed by: Rosa Covington, BEN - Fully Assessed Reason for Visit: Appointment [186] Cmt: Seen in [place] ER, needs follow up Prescriptions as of 04/21/2023 - furosemide (LASIX) 20 mg tablet Take 1 tablet by mouth once daily. - atenolol (TENORMIN) 50 mg tablet Take 1 tablet by mouth once daily. - dofetilide (TIKOSYN) 500 mcg capsule Take 1 capsule by mouth twice daily. - sodium chloride 0.9 %, flush, (BD POSIFLUSH) syringe Inject 2-10 mL intravenously as directed. For Echo procedure - sodium chloride 0.9 %, flush, (BD POSIFLUSH) syringe Inject 2-10 mL intravenously as directed. For Echo procedure - aspirin, enteric coated (ECOTRIN LOW STRENGTH) 81 mg EC tablet Take 1 tablet by mouth once daily. - atorvastatin (LIPITOR) 40 mg tablet Take 1 tablet by mouth once daily. - Fenofibrate (LOFIBRA) 160 mg tablet TAKE 1 TABLET ONCE DAILY - SYMBICORT 160-4.5 mcg/actuation inhaler Inhale 2 Puffs as instructed twice daily. - cholecalciferol, vitamin D3, (VITAMIN D3 ORAL) Take by mouth. - magnesium oxide (MAG-OX) 400 mg (241.3 mg magnesium) tablet Take 1 tablet by mouth once daily. - Xwahk-6-LDP-EPA-Fish Oil 1,000 mg (120 mg-180 mg) cap Take 2 g by mouth twice daily. - omeprazole (PRILOSEC) 40 mg capsule Take 40 mg by mouth once daily. - rOPINIRole (REQUIP) 1 mg tablet Take 1 tablet by mouth daily at bedtime. - montelukast (SINGULAIR) 10 mg tablet montelukast 10 mg tablet - allopurinol (ZYLOPRIM) 100 mg tablet Take 100 mg by mouth once daily. - PROCTOZONE-HC 2.5 % rectal cream APPLY TO THE AFFECTED AREA(S) 2-4 times daily - fluticasone (FLONASE) 50 mcg/actuation nasal spray Use 1 [place] in each nostril once daily. - coenzyme Q10 100 mg cap Take 100 mg by mouth once daily. - LORATADINE (CLARITIN ORAL) Take 1 tablet by mouth once daily. - albuterol HFA (PROAIR HFA) 90 mcg/actuation inhaler Inhale 2 Puffs as instructed every 6 hours as needed. - Glucosamine-Chondroit -Vit C-Mn 500-400 mg cap Take 1 capsule by mouth twice daily. Facility-Administered Medications as of 04/21/2023 - perflutren lipid microspheres 1.3 mL in NaCl (PF) 0.9% 10 mL injection (DEFINITY) - sodium chloride 0.9 % (flush) 10 mL (BD POSIFLUSH) Meds Comments as of 09/01/2016: Omeprazole is taken prn Problem List As Of Date 04/21/2023 Noted Resolved PAF (paroxysmal atrial fibrillation) (HCC) [I48* Former smoker [Z87.891] Obstructive lung disease [J44.9] Hyperlipemia [E78.5] PUD (peptic ulcer disease) [K27.9] GERD (gastroesophageal reflux disease) [K21.9] Carpal tunnel syndrome [G56.00] Hx of neck disorder [Z87.39] Rotator cuff tear [M75.100] Arthritis [M19.90] Depression [F32.A] Alcohol use LPRD (laryngopharyngeal reflux disease) [K21.9] 12/30/2011 Chronic throat clearing [R09.89] 12/30/2011 Biceps rupture, proximal [S46.119A] 05/29/2015 Contracture of shoulder [M24.519] 05/29/2015 Rotator cuff tear arthropathy [M75.100, M12.819]05/29/2015 Complete tear of left rotator cuff [M75.122] 05/29/2015 Melanoma (HCC) [C43.9] 07/23/2015 HTN (hypertension), benign [I10] 07/23/2015 Cervical spine pain [M54.2] Osteoarthritis [M19.90] 08/06/2015 Limitation of joint motion of shoulder [M25.619]08/20/2015 Acute on chronic diastolic congestive heart win*10/31/2015 Chronic diastolic congestive heart failure (HCC*12/19/2015 Right shoulder pain [M25.511] 09/21/2016 Stiffness of shoulder joint [M25.619] 09/21/2016 Weakness of shoulder [R29.898] 09/21/2016 Obesity, Class I, BMI 30-34.9 [E66.9] 01/03/2018 Persistent atrial fibrillation (HCC) [I48.19] 07/28/2018 Visit for monitoring Tikosyn therapy [Z51.81, Z*09/06/2018 Gastrointestinal hemorrhage [K92.2] 05/18/2022 IRB 21-1031 WATCHAMAN FLX Real World Evidence (*05/19/2022 Atrial f (more content not included)... Normal [facility] Provider Letteron 04-13-2023 Provider Letter April 13, 2023 IRENA PERAZA [address] [place] [address] : 1945 Dear Irena, During review of your medical record we noticed that you are due for follow up appointment. Please call our office at your earliest convenience to schedule. Sincerely, [facility] [phone] Normal [facility] Ambulatory Visit Summaryon 1 Ambulatory Visit Summary IRENA PERAZA :1945 Visit Date:02/02/2023 Ambulatory Visit Instructions Your Diagnosis BPH with urinary obstruction Elevated PSA Urge incontinence Impotence Tests Performed Urnls Dip Stick Auto w/o Microscopy POC 40514 Your Care Team Attending Physician - ALLAN JARVIS, Nghia Elizabeth Primary Care Physician - Everette EUBANKS, Scarlett Armstrong This Is Your Medications List tolterodine (tolterodine 4 mg Cap-ER) vardenafil (Levitra 20 mg Tab) Contact prescribing physician if questions or concerns allopurinol (allopurinol 100 mg Tab) apixaban (Eliquis) aspirin atenolol atorvastatin (Lipitor 40 mg Tab) budesonide-formoterol (Symbicort 80/4.5 inhalation aerosol with adapter) calcium citrate calcium-vitamin D chondroitin-glucosami ne (Chondroitin-Glucosam ine) dofetilide (Tikosyn 500 mcg oral capsule) duloxetine (duloxetine 30 mg Cap-DR) fenofibrate (fenofibrate 160 mg oral tablet) ferrous sulfate fluticasone (fluticasone HFA 44 mcg/inh Inhaler) fluticasone nasal (Flonase) montelukast (montelukast 10 mg Tab) omega-3 polyunsaturated fatty acids (Lovaza) omeprazole (omeprazole 40 mg Cap-EC) ropinirole (Requip 3 mg Tab) tizanidine (tiZANidine 4 mg Tab) ubiquinone (CoQ10) Procedures Performed Colonoscopy (07/27/2021), Bunionectomy (07/09/2021), Colonoscopy, flexible; with removal of tumor(s), polyp(s), or other lesion(s) by snare technique (12/22/2020), Epidural injection of cervical spine using fluoroscopic guidance (10/20/2020), Radiofrequency ablation of medial branch of lumbar nerve using fluoroscopic guidance (07/28/2020), Injection of facet joint using fluoroscopic guidance (07/08/2020), Injection of facet joint using fluoroscopic guidance (06/10/2020), Transurethral insertion of prostatic urethral lift implant (09/27/2018), Cystoscopy (08/30/2018), Arthrodesis of foot (05/19/2017), Carpal tunnel release (03/30/2017), Left carpal tunnel release (07/15/2016), EVLT RGSV, phleb. right leg (04/07/2016), Radiofrequency denervation of spinal facet joint of cervical vertebra (01/19/2016), Shoulder replacement (08/06/2015), Injection of facet joint using fluoroscopic guidance (05/19/2015), cervica medial branch block (04/04/2015), Transrectal biopsy of prostate using ultrasound (US) guidance (07/03/2014), skin lesion of left chest (melanoma) (2012), Lumbar discectomy (08/1994), Appendectomy, Cardiac ablation using fluoroscopy guidance, Colonoscopy, Colonoscopy, EGD, Excision of basal cell carcinoma, Hammer toe operation, Hernia, AGUS - Plication of left atrial appendage, Radiofrequency ablation of medial branch of cervical nerve using fluoroscopic guidance, Rotator cuff repair, Tonsillectomy. Discharge Vitals Heart Rate (Peripheral) 73 Blood Pressure 134/77 Height 177.0 cm Height 70 in Weight 94.0 kg Weight 206.8 lb BMI 30 What to do next Scheduled Follow-Up Appointments Tuesday 1:00 PM EDT With: ALLAN JARVIS, Nghia Elizabeth Where: [facility] Patient Educationon 02-03-20 Patient Education Oncology Prostate Cancer Screening Prostate cancer screening is testing that is done to check for the presence of prostate cancer in men. The prostate gland is a walnut-sized gland that is located below the bladder and in front of the rectum in males. The function of the prostate is to add fluid to semen during ejaculation. Prostate cancer is one of the most common types of cancer in men. Who should have prostate cancer screening? Screening recommendations vary based on age and other risk factors, as well as between the professional organizations who make the recommendations. In general, screening is recommended if: ? You are age 50 to 70 and have an average risk for prostate cancer. You should talk with your health care provider about your need for screening and how often screening should be done. Because most prostate cancers are slow growing and will not cause , screening in this age group is generally reserved for men who have a 10- to 15-year life expectancy. ? You are younger than age 50, and you have these risk factors: ? Having a father, brother, or uncle who has been diagnosed with prostate cancer. The risk is higher if your family member's cancer occurred at an early age or if you have multiple family members with prostate cancer at an early age. ? Being a male who is Black or is of [place] or sub-Saharan descent. In general, screening is not recommended if: ? You are younger than age 40. ? You are between the ages of 40 and 49 and you have no risk factors. ? You are 70 years of age or older. At this age, the risks that screening can cause are greater than the benefits that it may provide. If you are at high risk for prostate cancer, your health care provider may recommend that you have screenings more often or that you start screening at a younger age. How is screening for prostate cancer done? The recommended prostate cancer screening test is a blood test called the prostate-specific antigen (PSA) test. PSA is a protein that is made in the prostate. As you age, your prostate naturally produces more PSA. Abnormally high PSA levels may be caused by: ? Prostate cancer. ? An enlarged prostate that is not caused by cancer (benign prostatic hyperplasia, or BPH). This condition is very common in older men. ? A prostate gland infection (prostatitis) or urinary tract infection. ? Certain medicines such as male hormones (like testosterone) or other medicines that raise testosterone levels. A rectal exam may be done as part of prostate cancer screening to help provide information about the size of your prostate gland. When a rectal exam is performed, it should be done after the PSA level is drawn to avoid any effect on the results. Depending on the PSA results, you may need more tests, such as: ? A physical exam to check the size of your prostate gland, if not done as part of screening. ? Blood and imaging tests. ? A procedure to remove tissue samples from your prostate gland for testing (biopsy). This is the only way to know for certain if you have prostate cancer. What are the benefits of prostate cancer screening? ? Screening can help to identify cancer at an early stage, before symptoms start and when the cancer can be treated more easily. ? There is a small chance that screening may lower your risk of dying from prostate cancer. The chance is small because prostate cancer is a slow-growing cancer, and most men with prostate cancer from a different cause. What are the risks of prostate cancer screening? The main risk of prostate cancer screening is diagnosing and treating prostate cancer that would never have caused any symptoms or problems. This is called overdiagnosisand overtreatment. PSA screening cannot tell you if your PSA is high due to cancer or a different cause. A prostate biopsy is the only procedure to diagnose prostate cancer. Even the results of a biopsy may not tell you if your cancer needs to be treated. Slow-growing prostate cancer may not need any treatment other than monitoring, so diagnosing and treating it may cause unnecessary stress or other side effects. Questions to ask your health care provider ? When should I start prostate cancer screening? ? What is my risk for prostate cancer? ? How often do I need screening? ? What type of screening tests do I need? ? How do I get my test results? ? What do my results mean? ? Do I need treatment? Where to find more information ? The [place] [employer]: www.cancer.org ? [place] [employer]: www.auanet.org Contact a health care provider if: ? You have difficulty urinating. ? You have pain when you urinate or ejaculate. ? You have blood in your urine or semen. ? You have pain in your back or in the area of your prostate. Summary ? Prostate cancer is a common type of cancer in men. The prostate gland is located below the bladder and in front of the rectum. This gland adds flu (more content not included)... Normal [facility] Screenson 02-02-2023 Screens [id number]:127 Normal [facility] Urology Office/Clinic Noteon 02-02-2023 Urology Office/Clinic Note Chief Complaint 6 mo fu HPI Staff 78 yo male here for 6 month f/u with PSA. Former Dr. Cook pt. Previous Dx: BPH with obstruction, elevated PSA, urge incontinence, impotence. S/p Rezum 02/04/21, UroLift 09/27/18. Began taking Tolterodine at prior OV (switched from Vesicare). Previous PSA done 07/15/22 was 1.79. Dysuria: no Incomplete bladder emptying: Hematuria: no Frequency: no Urgency: severe Nocturia:1-2x Stream: good stream Leaking: no Post void dripping: no Wearing pads/ Depends: no Urge incontinence: mild dribbling Stress incontinence: dribbling intermittent with lifting Incontinence without Sensory Awareness: no Abdominal pain: no Flank pain: no Sexual complaints: no History of Present Illness Tests reviewed: Reviewed UA and PSA. I have reviewed the previous health record information and history for this patient from Dr. Cook. I have reviewed and verified the staff HPI to be accurate for this encounter. There have been no associated fever, chills, flank pain, or blood in the urine. Denies any urinary infections since last encounter. Review of Systems PHQ Score Initial Depression Screen Score: 0 ROS - Provider Constitutional: denies weight loss, denies hot flashes. Eyes: denies eye problems. Gastrointestinal: denies nausea, denies vomiting. Cardiovascular: denies chest pain or angina. Integumentary: no dryness Musculoskeletal: denies musculoskeletal symptoms. ENMT: denies otolaryngeal symptoms. Respiratory: no shortness of breath. Heme/Lymph: denies easy bleeding tendency, denies easy bruising tendency. Psychiatric: no confusion, no anxiety. Genitourinary: See HPI. Physical Exam Vitals & Measurements HR: 73(Peripheral) BP: 134/77 HT: 70 in HT: 177.0 cm WT: 94.0 kg WT: 206.8 lb BMI: 30 General Appearance: alert, no distress, well nourished, well developed male. Genitourinary: normal scrotum, normal testes, normal urethra, normal epididymis, normal vas deferens/spermatic cord. Flank Pain: none. Bladder: nonpalpable. Prostate: normal prostate, estimated weight 30 gms, no hard nodule observed. Assessment/Plan Portions of this record may have been created with voice recognition artificial intelligence software, specifically [employer], [employer] and or [employer]. Substitutions may have occurred due to the inherent limitations of voice recognition and artificial intelligence software. 1. BPH with urinary obstruction (N40.1: Benign prostatic hyperplasia with lower urinary tract symptoms) S/p UroLift 09/27/18 S/p REZUM 02/04/21 Patient is not on any prostate medications. UA today unremarkable. IPSS 10 (11) Denies bothersome urinary complaints. 2. Elevated PSA (R97.20: Elevated prostate specific antigen [PSA]) S/p TRUS/bx 07/13/14 PSA: 05/26/20 - 3.9 & 28% 12/22/20 - 4.1 & 29% 07/15/22 - 1.79 01/28/23 - 2.6 & 28% CLAYTON - 30g, benign. -Will cont to monitor -Follow up in 6 months w/ PSA F/T 3. Urge incontinence (N39.41: Urge incontinence) Ongoing, mild dribbling. Has failed VESIcare. Pt continues tolterodine 4mg qd 4. Impotence (N52.9: Male erectile dysfunction, unspecified) Levitra 20mg PRN therapy. Pt's main complaint is having the sensation to ejaculate but nothing comes out. -Call for refills This is a former long-term patient of Dr. Cook. PSA levels continue to fluctuate. Certainly no biopsy is indicated at this point and we will continue to follow him every 6 months. He is maintained on some anticholinergics and there is no reason to change the dosage or schedule of that medication. Utilizing Levitra on a as needed basis. He does describe retrograde ejaculation symptoms. Informed him that the procedural intervention performed on his prostate in general does not cause that difficulty. The medications he is on should not as well. It is certainly possible however that with 2 procedures performed on his prostate that he is actually producing less semen and therefore has less to ejaculate. Follow-up 6 months with repeat free and total PSA Follow-up With When Contact Information ALLAN JARVIS, Nghia Elizabeth, URL [address] [address] [address]- Additional Instructions: 6 months w/ PSA F/T Patient Education Prostate Cancer Screening I, Abigail Gibbons, personally scribed for Dr. Roberson on 02/02/2023 14:56:16. . Documentation recorded by the scribe, Abigail Gibbons, accurately reflects the services(s) I performed and decisions made by me. Authenticated by Dr. Roberson on 02/02/2023 14:59:36. Problem List/Past Medical History Ongoing Afib Anemia Anemia due to gastrointestinal blood loss Anemia due to GI blood loss BMI 30.0-30.9,adult BPH with urinary obstruction Cancer Carpal tunnel syndrome Colon polyps Depression Discectomy Elevated PSA Enlarged prostate Erosion of intestine Feeling of incomplete bl (more content not included)... Normal [facility] Comment on above: Result Comment: Elec tronically Signed By: Nghia ROBERSON MD\.br\Date and Time Signed: 02/02/23 15:00 EDT\.br\Electronically Co-Signed By: Abigail Gibbons\.br\Date and Time Co-Signed: 02/02/23 14:56 EDT CHEMISTRYOrdered By: SYSTEM SYSTEM on 01-28-2023 Free PSA [Mass/Vol] 0.7 ng/mL Invalid Interpretation Code [facility] Comment on above: Interpretive Data: T he concentration of free PSA and total PSA determined with assays from different manufacturers can vary due to differences in assay methods and specificity. Values obtained with different label tacker's assays cannot be used interchangeably. The methodology used to obtain this result was chemiluminescence using [employer] Access Hybritech PSA reagent and [employer] Hybritech free PSA reagent. Free PSA/Total PSA [Mass fraction] 28.0 % Normal >=25.0% [facility] Rem[facility] Comment on above: Interpretive Data: T he percentage of free PSA is lower in serum samples from patients with prostate cancer than in serum samples from patients with normal prostate or benign disease. Low percentages of free PSA are established as indicators of prostate cancer. The 25% free PSA cutoff detected 95% of cancers while avoiding 20% of Unnecessary biopsies. LEYLA, 1998; 279:1542-7 Prostate specific Ag [Mass/Vol] 2.6 ng/mL Normal 0.1 - 3.5 ng/mL [facility] Remisol Comment on above: Interpretive Data: T he concentration of PSA determined by different manufacturers can vary due to differences in assay methods and reagent specificity. Values obtained from different assay methods cannot be used interchangeably. The methodology used for this result was chemiluminescence using [employer] Access Hybritech PSA reagent. Consent for Treatmenton 01-01 Consent for Treatment [id number] .[id number]:127 Normal [facility] PSA Free & Totalon 3 Free PSA [Mass/Vol] 0.7 ng/mL Invalid Interpretation Code [facility] Comment on above: Result Comment: The concentration of free PSA and total PSA determined with assays from different manufacturers can vary due to differences in assay methods and specificity. Values obtained with different label tacker's assays cannot be used interchangeably. The methodology used to obtain this result was chemiluminescence using [employer]'s Access Hybritech PSA reagent and Access Hybritech free PSA reagent. Performed By: #### 1 [id number], 0550824, 6129910, 5732166, 5656845, 4544016, 0472001 #### [facility] [address] [place] [address] Free PSA/Total PSA [Mass fraction] 28.0 % Normal >=25.0 [facility] Comment on above: Result Comment: The percentage of free PSA is lower in serum samples from patients with prostate cancer than in serum samples from patients with normal prostate or benign disease. Low percentages of free PSA are established as indicators of prostate cancer. The 25% free PSA cutoff detected 95% of cancers while avoiding 20% of Unnecessary biopsies. LEYLA, 1998; 279:1542-7 Performed By: #### 1 7905392, 5541483, 5811893, 6638532, 5200585, 6002750, 4987922 #### [facility] [address] [place] [address] Prostate specific Ag [Mass/Vol] 2.6 ng/mL Normal 0.1-3.5 [facility] Comment on above: Result Comment: The concentration of PSA determined by different manufacturers can vary due to differences in assay methods and reagent specificity. Values obtained from different assay methods cannot be used interchangeably. The methodology used for this result was chemiluminescence using [employer]'s Access Hybritech PSA reagent. Performed By: #### 1 1845426, 5394708, 4668137, 3661804, 4910766, 8984473, 8294922 #### [facility] [address] [place] [address] Physician Orderon 01-28-2023 Physician Order [id number] .[id number]:127 Normal [facility] Auto Diffon 12-24-2022 Basophils/100 WBC (Bld) 1.0 % Normal 0.0-2.0 [facility] Comment on above: Order Comment: Order added by Discern Expert. Performed By: #### 1 5610128, 9381428, 0034419, 3230604, 4085252, 7418841, 9214742 #### [facility] [address] [place] [address] Basophils/Leukocytes Auto (Bld) [Pure # fraction] 0.1 E9/L Normal 0.0-0.2 [facility] Comment on above: Order Comment: Order added by Discern Expert. Performed By: #### 1 0163494, 8677633, 2487638, 0985114, 3318596, 3223967, 1303931 #### [facility] [address] [place] [address] Eosinophils/100 WBC (Bld) 2.7 % Normal 0.0-8.0 [facility] Comment on above: Order Comment: Order added by Discern Expert. Performed By: #### 1 8700252, 3481808, 7040548, 6780131, 8901293, 1837568, 5923520 #### [facility] [address] [place] [address] Eosinophils/Leukocyte s Auto (Bld) [Pure # fraction] 0.2 E9/L Normal 0.0-0.5 [facility] Comment on above: Order Comment: Order added by Discern Expert. Performed By: #### 1 9977414, 2980784, 6646127, 3663683, 0627359, 5085953, 9214563 #### [facility] [address] [place] [address] Lymphocytes/100 WBC (Bld) 16.3 % Normal 14.0-50.0 [facility] Comment on above: Order Comment: Order added by Discern Expert. Performed By: #### 1 1493834, 7377190, 4191296, 7852953, 7168477, 6736035, 4584633 #### [facility] [address] [place] [address] Lymphocytes/Leukocyte s Auto (Bld) [Pure # fraction] 1.0 E9/L Normal 1.0-4.0 [facility] Comment on above: Order Comment: Order added by Discern Expert. Performed By: #### 1 7188011, 6395200, 6521562, 0033491, 8789449, 0019730, 1889096 #### [facility] [address] [place] [address] Monocytes/100 WBC (Bld) 12.1 % Normal 4.0-14.0 [facility] Comment on above: Order Comment: Order added by Gwendolyn Expert. Performed By: #### 1 8855068, 7546563, 6255672, 1895075, 6200046, 6277384, 3467259 #### [facility] [address] [place] [address] Monocytes/Leukocytes Auto (Bld) [Pure # fraction] 0.7 E9/L Normal 0.2-1.0 [facility] Comment on above: Order Comment: Order added by Gwendolyn Expert. Performed By: #### 1 7424924, 7645181, 5302291, 0805473, 4896387, 9153195, 8720747 #### [facility] [address] [place] [address] Neutrophils/100 WBC (Bld) 67.9 % Normal 36.0-75.0 [facility] Comment on above: Order Comment: Order added by Gwendolyn Expert. Performed By: #### 1 5779744, 4712377, 8297170, 6633050, 6825633, 3796094, 0529866 #### [facility] [address] [place] [address] Neutrophils/Leukocyte s Auto (Bld) [Pure # fraction] 4.0 E9/L Normal 2.0-7.5 [facility] Comment on above: Order Comment: Order added by Discern Expert. Performed By: #### 1 2556452, 3292231, 6684089, 0668563, 2366591, 9338452, 7773837 #### [facility] [address] [place] [address] CBC w/ Auto Diffon Erythrocyte distribution width (RBC) [Ratio] 14.3 % High 10.9-14.2 [facility] Comment on above: Performed By: #### 1 1792666, 0641864, 6247162, 0090336, 7174598, 0751892, 4562045 #### [facility] [address] [address] Hematocrit (Bld) [Volume fraction] 36.8 % Low 37.7-49.0 [facility] Comment on above: Performed By: #### 1 6972290, 6103192, 7887928, 7349927, 7743612, 5732013, 0620378 #### [facility] [address] [place] [address] Hemoglobin (Bld) [Mass/Vol] 12.2 g/dL Low 13.5-17.5 [facility] Comment on above: Performed By: #### 1 2130602, 7492900, 1286524, 6195198, 3655025, 3668016, 8319096 #### [facility] [address] [place] [address] MCH (RBC) [Entitic mass] 31.7 pg Normal 27.0-34.0 [facility] Comment on above: Performed By: #### 1 7018855, 7244103, 3985571, 1261006, 0572066, 1419616, 4579328 #### [facility] [address] [place] [address] MCHC (RBC) [Mass/Vol] 33.1 g/dL Normal 31.4-36.0 [facility] Comment on above: Performed By: #### 1 2085995, 2985315, 8245867, 7606021, 5877512, 6033091, 1937926 #### [facility] [address] [place] [address] MCV (RBC) [Entitic vol] 95.9 fL Normal 80.0-100.0 [facility] Comment on above: Performed By: #### 1 4464090, 3294154, 4062359, 2705280, 8781904, 5897019, 8068050 #### [facility] [address] [place] [address] Platelet mean volume (Bld) [Entitic vol] 7.7 fL Normal 6.4-10.8 [facility] Comment on above: Performed By: #### 1 5612136, 2762358, 4528122, 0727414, 3569672, 0132963, 4585892 #### [facility] [address] [place] [address] Platelets (Bld) [#/Vol] 277.0 E9/L Normal 150.0-500.0 [facility] Comment on above: Performed By: #### 1 2214331, 1269674, 6409225, 2490015, 9047672, 6366822, 6120386 #### [facility] [address] [place], [place] [address] RBC (Bld) [#/Vol] 3.8 E12/L Low 4.3-5.9 [facility] Comment on above: Performed By: #### 1 8734383, 9477885, 1520124, 8889609, 9655945, 6782845, 2576031 #### [facility] [address] [place] [address] WBC corrected for nucl RBC Auto (Bld) [#/Vol] 5.9 E9/L Normal 4.0-11.0 [facility] Comment on above: Performed By: #### 1 0006780, 0654346, 1908919, 1672431, 4696444, 7535348, 2192305 #### [facility] [address] [place] [address] CHEMISTRYOrdered By: SYSTEM SYSTEM on 12-24-2022 Albumin [Mass/Vol] 4.0 g/dL Normal 3.3 - 5.0 gm/dL [facility] Albumin/Globulin [Mass ratio] 1.2 {ratio} Normal 1.1 - 2.2 [facility] ALP [Catalytic activity/Vol] 58 [iU]/d Normal 21 - 98 Int._Unit/L [facility] ALT No additional P-5'-P [Catalytic activity/Vol] 21 [iU]/d Normal 6 - 46 Int._Unit/L [facility] Anion gap [Moles/Vol] 12 mmol/L Normal 6 - 16 mEq/L [facility] AST [Catalytic activity/Vol] 31 [iU]/d Normal 5 - 43 Int._Unit/L [facility] Bilirubin [Mass/Vol] 0.6 mg/dL Normal 0.0 - 1 .1 mg/dL [facility] Calcium [Mass/Vol] 9.7 mg/dL Normal 8.9 - 11. 1 mg/dL [facility] Chloride [Moles/Vol] 105 mmol/L Normal 101 - 1 11 mmol/L [facility] CO2 [Moles/Vol] 28 mmol/L Normal 21 - 31 mmol/L [facility] Creatinine [Mass/Vol] 1.1 mg/dL Normal 0.5 - 1.3 mg/dL [facility] Ferritin [Mass/Vol] 128 ng/mL Normal 24 - 336 ng/mL [facility] GFR/1.73 sq M.predicted among non-blacks MDRD (S/P/Bld) [Vol rate/Area] 70 mL/min/1.73 m2 Normal >=59mL/min/1 .73 m2 [facility] Chem S Globulin (S) [Mass/Vol] 3.2 g/dL Normal 1.4 - 4.0 gm/dL [facility] Glucose [Mass/Vol] 94 mg/dL Normal 55 - 199 mg/dL [facility] Iron [Mass/Vol] 84 ug/dL Normal 35 - 153 mcg/dL [facility] Iron binding capacity [Mass/Vol] 403 ug/dL High 250 - 400 mcg/dL [facility] Iron saturation [Mass fraction] 21 % Normal 20 - 50 % [facility] Potassium [Moles/Vol] 3.7 mmol/L Normal 3.5 - 5.3 mmol/L [facility] Protein [Mass/Vol] 7.2 g/dL Normal 6.0 - 7.8 gm/dL [facility] Sodium [Moles/Vol] 141 mmol/L Normal 135 - 145 mmol/L [facility] Transferrin [Mass/Vol] 288 mg/dL Normal 200 - 370 mg/dL [facility] Urea nitrogen [Mass/Vol] 16 mg/dL Normal 5 - 21 mg/dL [facility] Urea nitrogen/Creatinine [Mass ratio] 14 mg/mg Normal 10 - 20 [facility] CMPon 12-24-2022 Albumin [Mass/Vol] 4.0 g/dL Normal 3.3-5.0 [facility] Comment on above: Performed By: #### 1 2238997, 3707296, 1871510, 0993143, 2568626, 3744357, 5793752 #### [facility] [address] [place] [address] Albumin/Globulin (S) [Mass conc ratio] 1.2 Normal 1.1-2.2 [facility] Comment on above: Performed By: #### 1 9247062, 6228942, 4101375, 1636224, 9459873, 2113423, 5077380 #### [facility] [address] [place] [address] ALP [Catalytic activity/Vol] 58 Int._Unit/L Normal 21-98 [facility] Comment on above: Performed By: #### 1 3361825, 3368083, 9878096, 0162203, 1167783, 4976323, 5334250 #### [facility] [address] [place] [address] ALT No additional P-5'-P [Catalytic activity/Vol] 21 Int._Unit/L Normal 6-46 [facility] Comment on above: Performed By: #### 1 9536128, 5773041, 3676219, 6534007, 9032786, 3547362, 1238023 #### [facility] [address] [place] [address] Anion gap [Moles/Vol] 12 mmol/L Normal 6-16 [facility] Comment on above: Performed By: #### 1 3980716, 2551569, 8399793, 1003296, 1069507, 0315056, 9328900 #### [facility] [address] [place] [address] AST [Catalytic activity/Vol] 31 Int._Unit/L Normal 5-43 [facility] Comment on above: Performed By: #### 1 7247336, 1791632, 8420743, 6433997, 5601222, 0745132, 5568518 #### [facility] [address] [place] [address] Bilirubin [Mass/Vol] 0.6 mg/dL Normal 0.0-1.1 [facility] Comment on above: Performed By: #### 1 3293402, 0305333, 8833648, 3131091, 5767820, 0378922, 1026645 #### [facility] [address] [place] [address] Calcium [Mass/Vol] 9.7 mg/dL Normal 8.9-11.1 [facility] Comment on above: Performed By: #### 1 1911326, 6734204, 5207098, 6498445, 4395065, 8372142, 4174888 #### [facility] [address] [place] [address] Chloride [Moles/Vol] 105 mmol/L Normal 101-111 [facility] Comment on above: Performed By: #### 1 1257115, 7870556, 2943422, 4914510, 8742705, 8608224, 3042038 #### [facility] [address] [place] [address] CO2 [Moles/Vol] 28 mmol/L Normal 21-31 [facility] Comment on above: Performed By: #### 1 9603602, 5370396, 9238463, 2485840, 2941940, 6874768, 7722956 #### [facility] [address] [place] [address] Creatinine [Mass/Vol] 1.1 mg/dL Normal 0.5-1.3 [facility] Comment on above: Performed By: #### 1 5278807, 3055267, 4991898, 4645254, 3635979, 0123437, 0031599 #### [facility] [address] [place] [address] Globulin (S) [Mass/Vol] 3.2 g/dL Normal 1.4-4.0 [facility] Comment on above: Performed By: #### 1 8321121, 2234937, 4829336, 7500737, 9081979, 1999101, 1982590 #### [facility] [address] [place] [address] Glucose [Mass/Vol] 94 mg/dL Normal 55-199 [facility] Comment on above: Result Comment: If t his glucose result represents a fasting glucose, interpretation should refer to the following reference range: 55-99 mg/dL Performed By: #### 1 4369818, 2899898, 0904781, 6577169, 8802389, 8624909, 4880902 #### [facility] [address] [place] [address] Potassium [Moles/Vol] 3.7 mmol/L Normal 3.5-5.3 [facility] Comment on above: Performed By: #### 1 8554021, 9513605, 8530242, 2777209, 9825450, 9831911, 2966816 #### [facility] [address] [place] [address] Protein [Mass/Vol] 7.2 g/dL Normal 6.0-7.8 [facility] Comment on above: Performed By: #### 1 0613028, 7001561, 2702089, 4195762, 2844558, 3052408, 7303266 #### [facility] [address] [place] [address] Sodium [Moles/Vol] 141 mmol/L Normal 135-145 [facility] Comment on above: Performed By: #### 1 0843179, 9337497, 8524687, 2035316, 5278085, 0959621, 5230566 #### [facility] [address] [place] [address] Urea nitrogen [Mass/Vol] 16 mg/dL Normal 5-21 [facility] Comment on above: Performed By: #### 1 9873547, 7357176, 4122389, 1963720, 4758873, 5599896, 6110151 #### [facility] [address] [place] [address] Urea nitrogen/Creatinine [Mass ratio] 14 No Units Normal 10-20 [facility] Comment on above: Performed By: #### 1 2237529, 8641528, 9492531, 3125519, 7999315, 0397083, 6277654 #### [facility] [address] [place] [address] Consent for Treatmenton 12-01 Consent for Treatment [id number] .[id number]:127 Normal [facility] Ferritinon 12-24-2022 Ferritin [Mass/Vol] 128 ng/mL Normal 24-336 [facility] Comment on above: Result Comment: NORM ALS MEN <30 YRS 16-132 ng/mL MEN >30 YRS 8-338 ng/mL WOMEN (PREMEN) 6-104 ng/mL WOMEN (POSTMEN) 12-210 ng/mL Performed By: #### 1 5567176, 2808426, 4329347, 5563575, 4558599, 9541717, 3573029 #### [facility] [address] [place] [address] HEMATOLOGYOrdered By: SYSTEM SYSTEM on 12-24-2022 Basophils/100 WBC (Bld) 1.0 % Normal 0.0 - 2.0 % [facility] Basophils/Leukocytes Auto (Bld) [Pure # fraction] 0.1 E9/L Normal 0.0 - 0.2 E9/L [facility] Eosinophils/100 WBC (Bld) 2.7 % Normal 0.0 - 8.0 % [facility] Eosinophils/Leukocyte s Auto (Bld) [Pure # fraction] 0.2 E9/L Normal 0.0 - 0.5 E9/L [facility] Lymphocytes/100 WBC (Bld) 16.3 % Normal 14.0 - 50.0 % [facility] Lymphocytes/Leukocyte s Auto (Bld) [Pure # fraction] 1.0 E9/L Normal 1.0 - 4.0 E9/L [facility] Monocytes/100 WBC (Bld) 12.1 % Normal 4.0 - 14.0 % [facility] Monocytes/Leukocytes Auto (Bld) [Pure # fraction] 0.7 E9/L Normal 0.2 - 1.0 E9/L [facility] Neutrophils/100 WBC (Bld) 67.9 % Normal 36.0 - 75.0 % [facility] Neutrophils/Leukocyte s Auto (Bld) [Pure # fraction] 4.0 E9/L Normal 2.0 - 7.5 E9/L [facility] HEMATOLOGYOrdered By: Adilene Carrera on 12-24-2022 Erythrocyte distribution width (RBC) [Ratio] 14.3 % High 10.9 - 14.2 % [facility] Hematocrit (Bld) [Volume fraction] 36.8 % Low 37.7 - 49.0 % [facility] Hemoglobin (Bld) [Mass/Vol] 12.2 g/dL Low 13.5 - 17.5 gm/dL [facility] MCH (RBC) [Entitic mass] 31.7 pg Normal 27.0 - 34.0 pg [facility] MCHC (RBC) [Mass/Vol] 33.1 g/dL Normal 31.4 - 36.0 gm/dL [facility] MCV (RBC) [Entitic vol] 95.9 fL Normal 80.0 - 100.0 fL [facility] Platelet mean volume (Bld) [Entitic vol] 7.7 fL Normal 6.4 - 10.8 fL [facility] Platelets (Bld) [#/Vol] 277.0 E9/L Normal 150.0 - 500.0 E9/L [facility] RBC (Bld) [#/Vol] 3.8 E12/L Low 4.3 - 5.9 E12/L [facility] WBC corrected for nucl RBC Auto (Bld) [#/Vol] 5.9 E9/L Normal 4.0 - 11.0 E9/L [facility] Ironon 12-24-2022 Iron [Mass/Vol] 84 microgram/dL Normal 35-153 [facility] Comment on above: Performed By: #### 1 2552267, 2489283, 2715982, 3622111, 8494206, 8155148, 1314329 #### [facility] [address] [place] [address] Iron Saturationon 12-24-2022 Iron binding capacity [Mass/Vol] 403 microgram/dL High 250-400 [facility] Comment on above: Performed By: #### 1 1231582, 5067757, 7677183, 0791284, 3769231, 1472352, 9268239 #### [facility] [address] [place] [address] Iron saturation [Mass fraction] 21 % Normal 20-50 [facility] Comment on above: Performed By: #### 1 0256111, 3279716, 5590432, 2237975, 5349264, 4021343, 9032797 #### [facility] [facility] [address] [place] [address] Transferrinon 12-24-2022 Transferrin [Mass/Vol] 288 mg/dL Normal 200-370 [facility] Comment on above: Performed By: #### 1 [id number] #### [facility] [address] [place] [address] eGFRon 12-24-2022 GFR/1.73 sq M.predicted among non-blacks MDRD (S/P/Bld) [Vol rate/Area] 70 mL/min/1.73 m2 Normal >=59 [facility] Comment on above: Order Comment: Order added by Discern Expert. 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 Kidney failure is indicated at less than 15 mL/min/1.73m2. Performed By: #### 1 [id number] #### [facility] [address] [place] [address] CHEMISTRYOrdered By: SYSTEM SYSTEM on 07-21-2022 Albumin [Mass/Vol] 3.6 g/dL Normal 3.3 - 5.0 gm/dL [facility] Albumin/Globulin [Mass ratio] 1.0 {ratio} Low 1.1 - 2.2 [facility] ALP [Catalytic activity/Vol] 64 [iU]/d Normal 21 - 98 Int._Unit/L [facility] ALT No additional P-5'-P [Catalytic activity/Vol] 17 [iU]/d Normal 6 - 46 Int._Unit/L [facility] Anion gap [Moles/Vol] 11 mmol/L Normal 6 - 16 mEq/L [facility] AST [Catalytic activity/Vol] 25 [iU]/d Normal 5 - 43 Int._Unit/L [facility] Bilirubin [Mass/Vol] 0.5 mg/dL Normal 0.0 - 1 .1 mg/dL [facility] Calcium [Mass/Vol] 9.3 mg/dL Normal 8.9 - 11. 1 mg/dL [facility] Chloride [Moles/Vol] 102 mmol/L Normal 101 - 1 11 mmol/L [facility] CO2 [Moles/Vol] 27 mmol/L Normal 21 - 31 mmol/L [facility] Creatinine [Mass/Vol] 1.1 mg/dL Normal 0.5 - 1.3 mg/dL [facility] Ferritin [Mass/Vol] 32 ng/mL Normal 24 - 336 ng/mL [facility] GFR/1.73 sq M.predicted among blacks MDRD (S/P/Bld) [Vol rate/Area] mL/min/1.73 m2 Normal >=59mL/min/1 .73 m2 [facility] Chem S GFR/1.73 sq M.predicted among non-blacks MDRD (S/P/Bld) [Vol rate/Area] mL/min/1.73 m2 Normal >=59mL/min/1 .73 m2 [facility] Chem S Globulin (S) [Mass/Vol] 3.6 g/dL Normal 1.4 - 4.0 gm/dL [facility] Glucose [Mass/Vol] 104 mg/dL Normal 55 - 199 mg/dL [facility] Iron [Mass/Vol] 43 ug/dL Normal 35 - 153 mcg/dL [facility] Iron binding capacity [Mass/Vol] 489 ug/dL High 250 - 400 mcg/dL [facility] Iron saturation [Mass fraction] 9 % Low 20 - 50 % [facility] Potassium [Moles/Vol] 4.3 mmol/L Normal 3.5 - 5.3 mmol/L [facility] Protein [Mass/Vol] 7.2 g/dL Normal 6.0 - 7.8 gm/dL [facility] Sodium [Moles/Vol] 136 mmol/L Normal 135 - 145 mmol/L [facility] Transferrin [Mass/Vol] 349 mg/dL Normal 200 - 370 mg/dL [facility] Urea nitrogen [Mass/Vol] 16 mg/dL Normal 5 - 21 mg/dL [facility] Urea nitrogen/Creatinine [Mass ratio] 14 mg/mg Normal 10 - 20 [facility] HEMATOLOGYOrdered By: SYSTEM SYSTEM on 07-21-2022 Basophils/100 WBC (Bld) 0.8 % Normal 0.0 - 2.0 % [facility] Basophils/Leukocytes Auto (Bld) [Pure # fraction] 0.0 E9/L Normal 0.0 - 0.2 E9/L [facility] Eosinophils/100 WBC (Bld) 2.0 % Normal 0.0 - 8.0 % [facility] Eosinophils/Leukocyte s Auto (Bld) [Pure # fraction] 0.1 E9/L Normal 0.0 - 0.5 E9/L [facility] Lymphocytes/100 WBC (Bld) 16.2 % Normal 14.0 - 50.0 % [facility] Lymphocytes/Leukocyte s Auto (Bld) [Pure # fraction] 1.0 E9/L Normal 1.0 - 4.0 E9/L [facility] Monocytes/100 WBC (Bld) 10.9 % Normal 4.0 - 14.0 % [facility] Monocytes/Leukocytes Auto (Bld) [Pure # fraction] 0.6 E9/L Normal 0.2 - 1.0 E9/L [facility] Neutrophils/100 WBC (Bld) 70.1 % Normal 36.0 - 75.0 % [facility] Neutrophils/Leukocyte s Auto (Bld) [Pure # fraction] 4.2 E9/L Normal 2.0 - 7.5 E9/L [facility] HEMATOLOGYOrdered By: Constantine Hernandez on 07-21-2022 Erythrocyte distribution width (RBC) [Ratio] 14.4 % High 10.9 - 14.2 % [facility] Hematocrit (Bld) [Volume fraction] 34.8 % Low 37.7 - 49.0 % [facility] Hemoglobin (Bld) [Mass/Vol] 11.3 g/dL Low 13.5 - 17.5 gm/dL [facility] MCH (RBC) [Entitic mass] 30.7 pg Normal 27.0 - 34.0 pg [facility] MCHC (RBC) [Mass/Vol] 32.5 g/dL Normal 31.4 - 36.0 gm/dL [facility] MCV (RBC) [Entitic vol] 94.3 fL Normal 80.0 - 100.0 fL [facility] Platelet mean volume (Bld) [Entitic vol] 7.1 fL Normal 6.4 - 10.8 fL [facility] Platelets (Bld) [#/Vol] 337.0 E9/L Normal 150.0 - 500.0 E9/L [facility] RBC (Bld) [#/Vol] 3.7 E12/L Low 4.3 - 5.9 E12/L [facility] WBC corrected for nucl RBC Auto (Bld) [#/Vol] 5.9 E9/L Normal 4.0 - 11.0 E9/L [facility] CBC AUTO DIFFon 05-30-2022 BASO # 0.0 103/ul Normal 0.0-0.1 [facility] Comment on above: Performed By: #### U RCX #### [facility] [address] [place] [address] Dr. Luis Alberto Olivia Basophils/100 WBC (Bld) 0.5 % Normal 0.2-2.0 [facility] Comment on above: Performed By: #### U RCX #### [facility] [address] [place] [address] Dr. Luis Alberto Olivia EO # 0.2 103/ul Normal 0.0-0.7 [facility] Comment on above: Performed By: #### U RCX #### [facility] [address] [place] [address] Dr. Luis Alberto Olivia Eosinophils/100 WBC (Bld) 2.2 % Normal 0.9-7.0 [facility] Comment on above: Performed By: #### U RCX #### [facility] [address] [place] [address] Dr. Luis Alberto Olivia Erythrocyte distribution width (RBC) [Ratio] 14.6 % Normal 11.0-15.0 [facility] Comment on above: Performed By: #### U RCX #### [facility] [address] [place] [address] Dr. Luis Alberto Olivia Hematocrit (Bld) [Volume fraction] 32.6 % Critically low 42.0-54.0 [facility] Comment on above: Performed By: #### U RCX #### [facility] [address] [place] [address] Dr. Luis Alberto Olivia Hemoglobin (Bld) [Mass/Vol] 11.1 g/dL Critically low 14.0-18.0 [facility] Comment on above: Performed By: #### U RCX #### [facility] [address] [place] [address] Dr. Luis Alberto Olivia IG # 0.05 10e3/ul Critically high 0.00-0.03 [facility] Comment on above: Performed By: #### U RCX #### [facility] [address] [place] [address] Dr. Luis Alberto Olivia IG % 0.6 % Critically high 0.0-0.5 [facility] Comment on above: Performed By: #### U RCX #### [facility] [address] [place] [address] Dr. Luis Alberto Olivia LYMPH # 0.9 103/ul Critically low 1.2-3.8 [facility] Comment on above: Performed By: #### U RCX #### [facility] [address] [place] [address] Dr. Luis Alberto Olivia Lymphocytes/100 WBC (Bld) 11.7 % Critically low 20.5-60.0 [facility] Comment on above: Performed By: #### U RCX #### [facility] [address] [place] [address] Dr. Luis Alberto Olivia MANUAL DIFF REQ NO Normal [facility] Comment on above: Performed By: #### U RCX #### [facility] [address] [place] [address] Dr. Luis Alberto Olivia MCH (RBC) [Entitic mass] 31.2 pg Normal 25.9-34.0 [facility] Comment on above: Performed By: #### U RCX #### [facility] [address] [place] [address] Dr. Luis Alberto Olivia MCHC (RBC) [Mass/Vol] 34.0 g/dL Normal 29.9-35.2 [facility] Comment on above: Performed By: #### U RCX #### [facility] [address] [place] [address] Dr. Luis Alberto Olivia MCV (RBC) [Entitic vol] 91.6 fL Normal 80.0-94.0 [facility] Comment on above: Performed By: #### U RCX #### [facility] [address] [place] [address] Dr. Luis Alberto Olivia MONO # 0.8 103/ul Normal 0.3-0.8 [facility] Comment on above: Performed By: #### U RCX #### [facility] [address] [place] [address] Dr. Luis Alberto Olivia Monocytes/100 WBC (Bld) 10.2 % Normal 1.7-12.0 [facility] Comment on above: Performed By: #### U RCX #### [facility] [address] [place] [address] Dr. Luis Alberto Olivia NEUT # 5.9 103/ul Normal 1.4-6.5 [facility] Comment on above: Performed By: #### U RCX #### [facility] [address] [address] [address] Luis Alberto Olivia Neutrophils/100 WBC (Bld) 74.8 % Normal 43.0-75.0 [facility] Comment on above: Performed By: #### U RCX #### [facility] [address] [place] [address] Dr. Luis Alberto Olivia Platelet mean volume (Bld) [Entitic vol] 9.1 fL Critically low 9.5-13.5 [facility] Comment on above: Performed By: #### U RCX #### [facility] [address] [place] [address] Dr. Luis Alberto Olivia PLT 237 103/ul Normal 150-450 [facility] Comment on above: Performed By: #### U RCX #### [facility] [address] [place] [address] Dr. Luis Alberto Olivia RBC 3.56 106/ul Critically low 4.70-6.10 [facility] Comment on above: Performed By: #### U RCX #### [facility] [address] [place] [address] Dr. Luis Alberto Olivia WBC 7.9 103/ul Normal 4.0-11.0 [facility] Comment on above: Performed By: #### U RCX #### [facility] [address] [place] [address] [address] CSPINE WO CONon 3 CT CSPINE WO CON EXAMINATION: CT CSPINE WO CON HISTORY: Neck pain COMPARISON: Cervical spine CT 05/31/2018 TECHNIQUE: CT Cervical spine without IV contrast. Coronal and sagittal reformations were performed. Dose reduction techniques were achieved by using automated exposure control and/or adjustment of mA and/or kV according to patient size and/or use of iterative reconstruction technique. FINDINGS: Again demonstrated is reversal of the normal cervical lordosis centered at C4. Stable approximately 1.5 mm retrolisthesis of C4 on C5 as well as stable anterolisthesis of C2 on C3, C3 on C4 and C6 on C7. New 3.5 mm anterolisthesis of C7 on T1. Multilevel intervertebral disc space narrowing, endplate, uncovertebral and facet arthrosis. Vertebral body heights are unremarkable. Levocurvature is increased with the prior study. The dens and lateral masses of C1 are symmetric. No prevertebral soft tissue edema. Mastoid air cells are pneumatized. No gross visualized irregularity of the skull base. Atherosclerosis of the carotid bulbs. No gross visualized irregularity of the thoracic inlet, visualized airway and pulmonary apices. IMPRESSION: Multilevel cervical spondylosis and degenerative disc disease that is increased in severity when compared with the prior study Electronically authenticated by: BOUBACAR BATES Date: 2022-05-30 18:39 Normal [facility] CBC W Auto Differential pane l (Bld)on 05-18-2022 Basophils (Bld) [#/Vol] 0.07 10*3/uL <0.11 k/uL [facility] Basophils/100 WBC (Bld) 1.0 % [facility] Differential cell count method Nom (Bld) Auto [facility] Eosinophils (Bld) [#/Vol] 0.18 10*3/uL <0.46 k/uL [facility] Eosinophils/100 WBC (Bld) 2.6 % [facility] Erythrocyte distribution width (RBC) [Ratio] 14.2 % 11.5 - 15.0 % [facility] Hematocrit (Bld) [Volume fraction] 41.3 % 39.0 - 51.0 % [facility] Hemoglobin (Bld) [Mass/Vol] 13.3 g/dL 13.0 - 17.0 g/dL [facility] Immature granulocytes (Bld) [#/Vol] 0.06 10*3/uL <0.10 k/uL [facility] Immature granulocytes/100 WBC (Bld) 0.9 % [facility] Lymphocytes (Bld) [#/Vol] 1.17 10*3/uL 1.00 - 4.00 k/uL [facility] Lymphocytes/100 WBC (Bld) 16.9 % [facility] MCH (RBC) [Entitic mass] 30.8 pg 26.0 - 34.0 pg [facility] MCHC (RBC) [Mass/Vol] 32.2 g/dL 30.5 - 36.0 g/dL [facility] MCV (RBC) [Entitic vol] 95.6 fL 80.0 - 100.0 fL [facility] Monocytes (Bld) [#/Vol] 0.68 10*3/uL <0.87 k/uL [facility] Monocytes/100 WBC (Bld) 9.8 % [facility] Neutrophils (Bld) [#/Vol] 4.78 10*3/uL 1.45 - 7.50 k/uL [facility] Neutrophils/100 WBC (Bld) 68.8 % [facility] Nucleated RBC (Bld) [#/Vol] <0.01 k/uL [facility] Nucleated RBC/100 WBC (Bld) [Ratio] 0.0 /100 WBC [facility] Platelet mean volume (Bld) [Entitic vol] 9.5 fL 9.0 - 12.7 fL [facility] Platelets (Bld) [#/Vol] 271 10*3/uL 150 - 400 k/uL [facility] RBC (Bld) [#/Vol] 4.32 10*6/uL 4.20 - 6.0 0 m/uL [facility] WBC (Bld) [#/Vol] 6.94 10*3/uL 3.70 - 11. 00 k/uL [facility] CNPNon 05-10-2022 HAYDER Telephone (LARA) IRENA PERAZA ([id number]) 1945 M Date Time Provider Department 05/10/22 [place] During your visit today, we recorded the following information about you: Ny Li APRN.[employer]ER 05/10/2022 1:21 PM Signed I received a refill request for his statin. He is overdue for lipids. I see some labs scanned in from november but no FLP. Please ask him to get this done thanks. Nadir Flaherty LPN 05/10/2022 3:46 PM Signed Called and left detailed VM for patient to get lab work completed. Nadir Flaherty LPN Bryanna Davidson 05/12/2022 11:21 AM Signed Patient called back. Couldn't understand VM. Patient is having Labs done on 05/18 could the order for his lipids be put in so he can get these done then? Please call and advise patient Nadir Flaherty LPN 05/12/2022 1:42 PM Signed Returned patients's phone call. No answer so detailed VM left. Stated that lab order is in the system and that the patient can get the lab work completed at any [facility] lab. Nadir Flaherty LPN Allergies As of Date: 05/10/2022 (No Known Allergies) Date Reviewed: 01/06/2022 Reviewed by: Marcia Trinh Ma - Fully Assessed Reason for Visit: Orders [681] Primary Visit Diagnosis:Dyslipidemi a [E78.5 (ICD-10-CM)] [E78.5] Prescriptions as of 05/12/2022 - atorvastatin (LIPITOR) 40 mg tablet Take 1 tablet by mouth once daily. - apixaban (ELIQUIS) 5 mg tab(s) Take 1 tablet by mouth twice daily. - sodium chloride 0.9 %, flush, (BD POSIFLUSH) syringe Inject 2-10 mL intravenously as directed. For Echo procedure - atenolol (TENORMIN) 50 mg tablet Take 1 tablet by mouth once daily. - furosemide (LASIX) 20 mg tablet TAKE 1 TABLET ONCE DAILY - Fenofibrate (LOFIBRA) 160 mg tablet TAKE 1 TABLET ONCE DAILY - dofetilide (TIKOSYN) 500 mcg capsule Take 1 capsule by mouth twice daily. - SYMBICORT 160-4.5 mcg/actuation inhaler Inhale 2 Puffs as instructed twice daily. - cholecalciferol, vitamin D3, (VITAMIN D3 ORAL) Take by mouth. - magnesium oxide (MAG-OX) 400 mg (241.3 mg magnesium) tablet Take 1 tablet by mouth once daily. - Zimqz-3-WMS-EPA-Fish Oil 1,000 mg (120 mg-180 mg) cap Take 2 g by mouth twice daily. - omeprazole (PRILOSEC) 20 mg capsule Take 40 mg by mouth once daily. - rOPINIRole (REQUIP) 1 mg tablet Take 1 tablet by mouth daily at bedtime. - DULoxetine (CYMBALTA) 30 mg capsule Take 60 mg by mouth once daily. - montelukast (SINGULAIR) 10 mg tablet montelukast 10 mg tablet - allopurinol (ZYLOPRIM) 100 mg tablet Take 100 mg by mouth once daily. - PROCTOZONE-HC 2.5 % rectal cream APPLY TO THE AFFECTED AREA(S) 2-4 times daily - ferrous sulfate 325 mg (65 mg iron) tablet Take 1 tablet by mouth daily with breakfast. - fluticasone (FLONASE) 50 mcg/actuation nasal spray Use 1 [place] in each nostril once daily. - coenzyme Q10 100 mg cap Take 100 mg by mouth once daily. - LORATADINE (CLARITIN ORAL) Take 1 tablet by mouth once daily. - CALCIUM CARBONATE/VITAMIN D3 (CALCIUM + D ORAL) Take 1 tablet by mouth twice daily. - albuterol HFA (PROAIR HFA) 90 mcg/actuation inhaler Inhale 2 Puffs as instructed every 6 hours as needed. - Glucosamine-Chondroit -Vit C-Mn 500-400 mg cap Take 1 capsule by mouth twice daily. Facility-Administered Medications as of 05/12/2022 - perflutren lipid microspheres 1.3 mL in NaCl (PF) 0.9% 10 mL injection (DEFINITY) - sodium chloride 0.9 % (flush) 10 mL (BD POSIFLUSH) Meds Comments as of 09/01/2016: Omeprazole is taken prn Problem List As Of Date 05/10/2022 Noted Resolved PAF (paroxysmal atrial fibrillation) ([facility]) [I48* Former smoker [Z87.891] Obstructive lung disease [J44.9] Hyperlipemia [E78.5] PUD (peptic ulcer disease) [K27.9] GERD (gastroesophageal reflux disease) [K21.9] Carpal tunnel syndrome [G56.00] Hx of neck disorder [Z87.39] Rotator cuff tear [M75.100] Arthritis [M19.90] Depression [F32.A] Alcohol use LPRD (laryngopharyngeal reflux disease) [K21.9] 12/30/2011 Chronic throat clearing [R09.89] 12/30/2011 Biceps rupture, proximal [S46.119A] 05/29/2015 Contracture of shoulder [M24.519] 05/29/2015 Rotator cuff tear arthropathy [M75.100, M12.819]05/29/2015 Complete tear of left rotator cuff [M75.122] 05/29/2015 Melanoma (HCC) [C43.9] 07/23/2015 HTN (hypertension), benign [I10] 07/23/2015 Cervical spine pain [M54.2] Osteoarthritis [M19.90] 08/06/2015 Limitation of joint motion of shoulder [M25.619]08/20/2015 Acute on chronic diastolic congestive heart win*10/31/2015 Chronic diastolic congestive heart failure (HCC*12/19/2015 Right shoulder pain [M25.511] 09/21/2016 Stiffness of shoulder joint [M25.619] 09/21/2016 Weakness of shoulder [R29.898] 09/21/2016 Obesity, Class I, BMI 30-34.9 [E66.9] 01/03/2018 Persistent atrial fibrillation (HCC) [I48.19] 07/28/2018 Visit for monitoring Tikosyn (more content not included)... Normal [facility] - Chemistry and C hemistry - challengeOrdered By: SYSTEM SYSTEM on 03-04-2022 Albumin [Mass/Vol] 3.7 g/dL Normal 3.3 - 5.0 gm/dL [facility] Albumin/Globulin [Mass ratio] 0.9 {ratio} Low 1.1 - 2.2 [facility] ALP [Catalytic activity/Vol] 54 [iU]/d Normal 21 - 98 Int._Unit/L [facility] ALT No additional P-5'-P [Catalytic activity/Vol] 21 [iU]/d Normal 6 - 46 Int._Unit/L [facility] Anion gap [Moles/Vol] 13 mmol/L Normal 6 - 16 mEq/L [facility] AST [Catalytic activity/Vol] 27 [iU]/d Normal 5 - 43 Int._Unit/L [facility] Bilirubin [Mass/Vol] 0.3 mg/dL Normal 0.0 - 1 .1 mg/dL [facility] Calcium [Mass/Vol] 10.1 mg/dL Normal 8.9 - 11. 1 mg/dL [facility] Chloride [Moles/Vol] 99 mmol/L Low 101 - 1 11 mmol/L [facility] CO2 [Moles/Vol] 27 mmol/L Normal 21 - 31 mmol/L [facility] Creatinine [Mass/Vol] 1.2 mg/dL Normal 0.5 - 1.3 mg/dL [facility] Ferritin [Mass/Vol] 127 ng/mL Normal 24 - 336 ng/mL [facility] GFR/1.73 sq M.predicted among blacks MDRD (S/P/Bld) [Vol rate/Area] mL/min/1.73 m2 Normal >=59mL/min/1 .73 m2 [facility] GFR/1.73 sq M.predicted among non-blacks MDRD (S/P/Bld) [Vol rate/Area] 59 mL/min/1.73 m2 Normal >=59mL/min/1 .73 m2 [facility] Globulin (S) [Mass/Vol] 4.0 g/dL Normal 1.4 - 4.0 gm/dL [facility] Glucose [Mass/Vol] 111 mg/dL Normal 55 - 199 mg/dL [facility] Iron [Mass/Vol] 73 ug/dL Normal 35 - 153 mcg/dL [facility] Iron binding capacity [Mass/Vol] 444 ug/dL High 250 - 400 mcg/dL [facility] Iron saturation [Mass fraction] 16 % Low 20 - 50 % [facility] Potassium [Moles/Vol] 4.0 mmol/L Normal 3.5 - 5.3 mmol/L [facility] Protein [Mass/Vol] 7.7 g/dL Normal 6.0 - 7.8 gm/dL [facility] Sodium [Moles/Vol] 135 mmol/L Normal 135 - 145 mmol/L [facility] Transferrin [Mass/Vol] 317 mg/dL Normal 200 - 370 mg/dL [facility] Urea nitrogen [Mass/Vol] 20 mg/dL Normal 5 - 21 mg/dL [facility] Urea nitrogen/Creatinine [Mass ratio] 17 mg/mg Normal 10 - 20 [facility] - Hematology and Cell countsOrdered By: SYSTEM SYSTEM on 11-03-2022 Basophils/100 WBC (Bld) 0.7 % Normal 0.0 - 2.0 % [facility] Basophils/Leukocytes Auto (Bld) [Pure # fraction] 0.0 E9/L Normal 0.0 - 0.2 E9/L [facility] Eosinophils/100 WBC (Bld) 1.7 % Normal 0.0 - 8.0 % [facility] Eosinophils/Leukocyte s Auto (Bld) [Pure # fraction] 0.1 E9/L Normal 0.0 - 0.5 E9/L [facility] Lymphocytes/100 WBC (Bld) 11.4 % Low 14.0 - 50.0 % [facility] Lymphocytes/Leukocyte s Auto (Bld) [Pure # fraction] 0.7 E9/L Low 1.0 - 4.0 E9/L [facility] Monocytes/100 WBC (Bld) 9.7 % Normal 4.0 - 14.0 % [facility] Monocytes/Leukocytes Auto (Bld) [Pure # fraction] 0.6 E9/L Normal 0.2 - 1.0 E9/L [facility] Neutrophils/100 WBC (Bld) 76.5 % High 36.0 - 75.0 % [facility] Neutrophils/Leukocyte s Auto (Bld) [Pure # fraction] 4.9 E9/L Normal 2.0 - 7.5 E9/L [facility] Laboratory - Hematology and Cell countsOrdered By: Matthew Dowling on 03-04-2022 Erythrocyte distribution width (RBC) [Ratio] 15.2 % High 10.9 - 14.2 % [facility] Hematocrit (Bld) [Volume fraction] 38.8 % Normal 37.7 - 49.0 % [facility] Hemoglobin (Bld) [Mass/Vol] 12.9 g/dL Low 13.5 - 17.5 gm/dL [facility] MCH (RBC) [Entitic mass] 31.4 pg Normal 27.0 - 34.0 pg [facility] MCHC (RBC) [Mass/Vol] 33.2 g/dL Normal 31.4 - 36.0 gm/dL [facility] MCV (RBC) [Entitic vol] 94.6 fL Normal 80.0 - 100.0 fL [facility] Platelet mean volume (Bld) [Entitic vol] 8.0 fL Normal 6.4 - 10.8 fL [facility] Platelets (Bld) [#/Vol] 274.0 E9/L Normal 150.0 - 500.0 E9/L [facility] RBC (Bld) [#/Vol] 4.1 E12/L Low 4.3 - 5.9 E12/L [facility] WBC corrected for nucl RBC Auto (Bld) [#/Vol] 6.3 E9/L Normal 4.0 - 11.0 E9/L [facility] - Chemistry and C hemistry - challengeOrdered By: SYSTEM SYSTEM on 02-17-2022 Ferritin [Mass/Vol] 161 ng/mL Normal 24 - 336 ng/mL [facility] Iron [Mass/Vol] 91 ug/dL Normal 35 - 153 mcg/dL [facility] Iron binding capacity [Mass/Vol] 495 ug/dL High 250 - 400 mcg/dL [facility] Iron saturation [Mass fraction] 18 % Low 20 - 50 % [facility] Transferrin [Mass/Vol] 353 mg/dL Normal 200 - 370 mg/dL [facility] - Hematology and Cell countsOrdered By: SYSTEM SYSTEM on 02-17-2022 Basophils/100 WBC (Bld) 0.8 % Normal 0.0 - 2.0 % [facility] Basophils/Leukocytes Auto (Bld) [Pure # fraction] 0.1 E9/L Normal 0.0 - 0.2 E9/L [facility] Eosinophils/100 WBC (Bld) 2.8 % Normal 0.0 - 8.0 % [facility] Eosinophils/Leukocyte s Auto (Bld) [Pure # fraction] 0.2 E9/L Normal 0.0 - 0.5 E9/L [facility] Lymphocytes/100 WBC (Bld) 14.5 % Normal 14.0 - 50.0 % [facility] Lymphocytes/Leukocyte s Auto (Bld) [Pure # fraction] 1.1 E9/L Normal 1.0 - 4.0 E9/L [facility] Monocytes/100 WBC (Bld) 8.3 % Normal 4.0 - 14.0 % [facility] Monocytes/Leukocytes Auto (Bld) [Pure # fraction] 0.6 E9/L Normal 0.2 - 1.0 E9/L [facility] Neutrophils/100 WBC (Bld) 73.6 % Normal 36.0 - 75.0 % [facility] Neutrophils/Leukocyte s Auto (Bld) [Pure # fraction] 5.6 E9/L Normal 2.0 - 7.5 E9/L [facility] - Hematology and Cell countsOrdered By: Vicky Sutton on 02-17-2022 Erythrocyte distribution width (RBC) [Ratio] 16.7 % High 10.9 - 14.2 % [facility] Hematocrit (Bld) [Volume fraction] 38.6 % Normal 37.7 - 49.0 % [facility] Hemoglobin (Bld) [Mass/Vol] 13.0 g/dL Low 13.5 - 17.5 gm/dL [facility] MCH (RBC) [Entitic mass] 32.0 pg Normal 27.0 - 34.0 pg [facility] MCHC (RBC) [Mass/Vol] 33.6 g/dL Normal 31.4 - 36.0 gm/dL [facility] MCV (RBC) [Entitic vol] 95.3 fL Normal 80.0 - 100.0 fL [facility] Platelet mean volume (Bld) [Entitic vol] 7.3 fL Normal 6.4 - 10.8 fL [facility] Platelets (Bld) [#/Vol] 334.0 E9/L Normal 150.0 - 500.0 E9/L [facility] RBC (Bld) [#/Vol] 4.0 E12/L Low 4.3 - 5.9 E12/L [facility] WBC corrected for nucl RBC Auto (Bld) [#/Vol] 7.6 E9/L Normal 4.0 - 11.0 E9/L [facility] HEMATOLOGYOrdered By: SYSTEM SYSTEM on 02-02-2022 Basophils/100 WBC (Bld) 0.7 % Normal 0.0 - 2.0 % [facility] Basophils/Leukocytes Auto (Bld) [Pure # fraction] 0.0 E9/L Normal 0.0 - 0.2 E9/L [facility] Eosinophils/100 WBC (Bld) 4.0 % Normal 0.0 - 8.0 % [facility] Eosinophils/Leukocyte s Auto (Bld) [Pure # fraction] 0.2 E9/L Normal 0.0 - 0.5 E9/L [facility] Lymphocytes/100 WBC (Bld) 17.1 % Normal 14.0 - 50.0 % [facility] Lymphocytes/Leukocyte s Auto (Bld) [Pure # fraction] 0.8 E9/L Low 1.0 - 4.0 E9/L [facility] Monocytes/100 WBC (Bld) 12.1 % Normal 4.0 - 14.0 % [facility] Monocytes/Leukocytes Auto (Bld) [Pure # fraction] 0.6 E9/L Normal 0.2 - 1.0 E9/L [facility] Neutrophils/100 WBC (Bld) 66.1 % Normal 36.0 - 75.0 % [facility] Neutrophils/Leukocyte s Auto (Bld) [Pure # fraction] 3.1 E9/L Normal 2.0 - 7.5 E9/L [facility] HEMATOLOGYOrdered By: Stalin Raines on 02-02-2022 Erythrocyte distribution width (RBC) [Ratio] 18.3 % High 10.9 - 14.2 % [facility] Hematocrit (Bld) [Volume fraction] 34.5 % Low 37.7 - 49.0 % [facility] Hemoglobin (Bld) [Mass/Vol] 11.4 g/dL Low 13.5 - 17.5 gm/dL [facility] MCH (RBC) [Entitic mass] 31.4 pg Normal 27.0 - 34.0 pg [facility] MCHC (RBC) [Mass/Vol] 32.9 g/dL Normal 31.4 - 36.0 gm/dL [facility] MCV (RBC) [Entitic vol] 95.4 fL Normal 80.0 - 100.0 fL [facility] Platelet mean volume (Bld) [Entitic vol] 7.7 fL Normal 6.4 - 10.8 fL [facility] Platelets (Bld) [#/Vol] 276.0 E9/L Normal 150.0 - 500.0 E9/L [facility] RBC (Bld) [#/Vol] 3.6 E12/L Low 4.3 - 5.9 E12/L [facility] WBC corrected for nucl RBC Auto (Bld) [#/Vol] 4.7 E9/L Normal 4.0 - 11.0 E9/L [facility] BNPon 01-24-2022 Natriuretic peptide B (Bld) [Mass/Vol] 671.0 pg/mL Normal <=1,800.0 [facility] Comment on above: Performed By: #### B [id number] #### [facility] [address] [place] [address] Dr. Luis Alberto Olivia CARDIAC ANGELI ADMITon 022 CK [Catalytic activity/Vol] 71 U/L Normal 39-308 [facility] Comment on above: Performed By: #### B [id number] #### [facility] [address] [place] [address] Dr. Luis Alberto Olivia CK.MB [Mass/Vol] 1.85 ng/mL Normal <=3.60 [facility] Comment on above: Performed By: #### B [id number] #### [facility] [address] [place] [address] Dr. Luis Alberto Olivia HSTROP 27.3 pg/mL Normal 4.0-76.1 [facility] Comment on above: Result Comment: CUT- OFF POINTS HAVE BEEN ESTABLISHED BASED ON THE FOURTH UNIVERSAL DEFINITIONS OF MYOCARDIAL INFARCTION. THE UPPER REFERENCE LIMIT (URL) OF TROPONIN, DEFINED THE 99TH PERCENTILE OF cTnI DISTRIBUTION IN A REFERENCE POPULATION, HAS BEEN CONFIRMED THE DECISION THRESHOLD FOR MT DIAGNOSIS. Performed By: #### B [id number] #### [facility] [address] [place] [address] Dr. Luis Alberto Olivia YADIRA 54 ng/mL Normal 16-96 [facility] Comment on above: Performed By: #### B [id number] #### [facility] [address] [place] [address] Dr. Luis Alberto Olivia CBC AUTO DIFFon 01-24-2022 BASO # 0.1 103/ul Normal 0.0-0.1 [facility] Comment on above: Performed By: #### U RCX #### [facility] [address] [address] [address] Luis Alberto Olivia Basophils/100 WBC (Bld) 1.0 % Normal 0.2-2.0 [facility] Comment on above: Performed By: #### U RCX #### [facility] [address] [place] [address] Dr. Luis Alberto Olivia EO # 0.2 103/ul Normal 0.0-0.7 [facility] Comment on above: Performed By: #### U RCX #### [facility] [address] [place] [address] Dr. Luis Alberto Olivia Eosinophils/100 WBC (Bld) 3.7 % Normal 0.9-7.0 [facility] Comment on above: Performed By: #### U RCX #### [facility] [address] [place] [address] Dr. Luis Alberto Olivia Erythrocyte distribution width (RBC) [Ratio] 17.9 % Critically high 11.0-15.0 [facility] Comment on above: Performed By: #### U RCX #### [facility] [address] [place] [address] Dr. Luis Alberto Olivia Hematocrit (Bld) [Volume fraction] 30.7 % Critically low 42.0-54.0 [facility] Comment on above: Performed By: #### U RCX #### [facility] [address] [place] [address] Dr. Luis Alberto Olivia Hemoglobin (Bld) [Mass/Vol] 9.7 g/dL Critically low 14.0-18.0 [facility] Comment on above: Performed By: #### U RCX #### [facility] [address] [place] [address] Dr. Luis Alberto Olivia IG # 0.06 10e3/ul Critically high 0.00-0.03 [facility] Comment on above: Performed By: #### U RCX #### [facility] [address] [place] [address] Dr. Luis Alberto Olivia IG % 1.2 % Critically high 0.0-0.5 [facility] Comment on above: Performed By: #### U RCX #### [facility] [address] [address] [address] Luis Alberto Olivia LYMPH # 0.7 103/ul Critically low 1.2-3.8 [facility] Comment on above: Performed By: #### U RCX #### [facility] [address] [address] [address] Luis Alberto Olivia Lymphocytes/100 WBC (Bld) 14.9 % Critically low 20.5-60.0 [facility] Comment on above: Performed By: #### U RCX #### [facility] [address] [address] [address] Luis Alberto Olivia MANUAL DIFF REQ NO Normal [facility] Comment on above: Performed By: #### U RCX #### [facility] [address] [address] [address] Luis Alberto Olivia MCH (RBC) [Entitic mass] 31.6 pg Normal 25.9-34.0 [facility] Comment on above: Performed By: #### U RCX #### [facility] [address] [address] [address] Luis Alberto Olivia MCHC (RBC) [Mass/Vol] 31.6 g/dL Normal 29.9-35.2 [facility] Comment on above: Performed By: #### U RCX #### [facility] [address] [address] [address] Luis Alberto Olivia MCV (RBC) [Entitic vol] 100.0 fL Critically high 80.0-94.0 [facility] Comment on above: Performed By: #### U RCX #### [facility] [address] [address] [address] Luis Alberto Olivia MONO # 0.5 103/ul Normal 0.3-0.8 [facility] Comment on above: Performed By: #### U RCX #### [facility] [address] [address] [address] Luis Alberto Olivia Monocytes/100 WBC (Bld) 9.3 % Normal 1.7-12.0 [facility] Comment on above: Performed By: #### U RCX #### [facility] [address] [place] [address] Dr. Luis Alberto Olivia NEUT # 3.4 103/ul Normal 1.4-6.5 [facility] Comment on above: Performed By: #### U RCX #### [facility] [address] [address] [address] Luis Alberto Olivia Neutrophils/100 WBC (Bld) 69.9 % Normal 43.0-75.0 [facility] Comment on above: Performed By: #### U RCX #### [facility] [address] [place] [address] Dr. Luis Alberto Olivia Platelet mean volume (Bld) [Entitic vol] 9.5 fL Normal 9.5-13.5 [facility] Comment on above: Performed By: #### U RCX #### [facility] [address] [place] [address] Dr. Luis Alberto Olivia PLT 259 103/ul Normal 150-450 [facility] Comment on above: Performed By: #### U RCX #### [facility] [address] [place] [address] Dr. Luis Alberto Olivia RBC 3.07 106/ul Critically low 4.70-6.10 [facility] Comment on above: Performed By: #### U RCX #### [facility] [address] [place] [address] Dr. Luis Alberto Olivia WBC 4.8 103/ul Normal 4.0-11.0 [facility] Comment on above: Performed By: #### U RCX #### [facility] [address] [place] [address] Dr. Luis Alberto Olivia Covid-19 PCR ([facility])on 01-01 SARS-CoV-2 (COVID-19) RNA BOAZ+probe Ql (Unsp spec) Not detected Normal NOT DETECTED [facility] Comment on above: Result Comment: When diagnostic testing is negative, the possibility of a false negative should be considered in the context of a patient's recent exposures and the presence of clinical signs and symptoms consistent with SARS-CoV-2. This test is not yet approved or cleared by the [place] FDA. When there are no FDA-approved or cleared tests available, and other criteria are met, FDA can make tests available under an emergency access mechanism called an Emergency Use Authorization (EUA). The EUA for this test is supported by the [place] of Health and Human Service's declaration that circumstances exist to justify the emergency use of in vitro diagnostics for the detection and/or diagnosis of the virus that causes COVID-19. This EUA will remain in effect for the duration of the COVID-19 declaration justifying emergency of IVDs, unless it is terminated or revoked by the FDA (after which the test may no longer be used). Performed By: #### L IVER #### [facility] [address] [place] [address] Dr. Luis Alberto Olivia ER URINE PROFILEon 2 Bilirubin Ql (U) Negative Normal NEGATIVE [facility] Comment on above: Performed By: #### R ETYPE #### [facility] [address] [place] [address] Dr. Luis Alberto Olivia Clarity (U) CLEAR Normal CLEAR [facility] Comment on above: Performed By: #### R ETYPE #### [facility] [address] [place] [address] Dr. Luis Alberto Olivia Color (U) LT. YELLOW Normal YELLOW [facility] Comment on above: Performed By: #### R ETYPE #### [facility] [address] [place] [address] Dr. Luis Alberto Olivia ERUAHD A micrscopic examination will be performed if indicated. Normal [facility] Comment on above: Performed By: #### R ETYPE #### [facility] [address] [place] [address] Dr. Luis Alberto Olivia Glucose Ql (U) Negative Normal NEGATIVE [facility] Comment on above: Performed By: #### R ETYPE #### [facility] [address] [place] [address] Dr. Luis Alberto Olivia Hemoglobin Ql (U) Negative Normal NEGATIVE [facility] Comment on above: Performed By: #### R ETYPE #### [facility] [address] [place] [address] Dr. Luis Alberto Olivia Ketones Ql (U) Negative Normal NEGATIVE [facility] Comment on above: Performed By: #### R ETYPE #### [facility] [address] [place] [address] Dr. Luis Alberto Olivia LEUKOCYTES Negative Normal NEGATIVE [facility] Comment on above: Performed By: #### R ETYPE #### [facility] [address] [address] [address] Luis Alberto Olivia Nitrite Ql (U) Negative Normal NEGATIVE [facility] Comment on above: Performed By: #### R ETYPE #### [facility] [address] [place] [address] Dr. Luis Alberto Olivia pH (U) 6.0 [pH] Normal 5-9 [facility] Comment on above: Performed By: #### R ETYPE #### [facility] [address] [place] [address] Dr. Luis Alberto Olivia SPEC GRAVITY 1.010 Normal 1.005-<=1.02 5 [facility] Comment on above: Performed By: #### R ETYPE #### [facility] [address] [address] [address] Luis Alberto Olivia UA PROTEIN Negative Normal NEGATIVE/ TRACE [facility] Comment on above: Performed By: #### R ETYPE #### [facility] [address] [place] [address] Dr. Luis Alberto Olivia UR MICRO IND NOT INDICATED Normal [facility] Comment on above: Performed By: #### R ETYPE #### [facility] [address] [place] [address] Dr. Luis Alberto Olivia Urobilinogen Qn (U) 0.2 {Srini'U}/dL Normal 0.2 - 1. 0 [facility] Comment on above: Performed By: #### R ETYPE #### [facility] [address] [place] [address] Dr. Luis Alberto Olivia PROF 14(COMP METB)on 022 Albumin [Mass/Vol] 3.4 g/dL Normal 3.4-5.0 [facility] Comment on above: Performed By: #### T RANSFR #### [facility] [address] [address] [address] Luis Alberto Olivia Albumin/Globulin [Mass ratio] 1.0 {ratio} Normal [facility] Comment on above: Performed By: #### T RANSFR #### [facility] [address] [address] [address] Luis Alberto Olivia ALP [Catalytic activity/Vol] 59 U/L Normal 46-116 [facility] Comment on above: Performed By: #### T RANSFR #### [facility] [address] [place] [address] Dr. Luis Alberto Olivia ALT [Catalytic activity/Vol] 22 U/L Normal 16-63 [facility] Comment on above: Performed By: #### T RANSFR #### [facility] [address] [place] [address] Dr. Luis Alberto Olivia Anion gap [Moles/Vol] 10.2 mmol/L Normal [facility] Comment on above: Performed By: #### T RANSFR #### [facility] [address] [place] [address] Dr. Luis Alberto Olivia AST [Catalytic activity/Vol] 18 U/L Normal 15-37 [facility] Comment on above: Performed By: #### T RANSFR #### [facility] [address] [place] [address] Dr. Luis Alberto Olivia Bilirubin [Mass/Vol] 0.3 mg/dL Normal 0.2-1.0 [facility] Comment on above: Performed By: #### T RANSFR #### [facility] [address] [address] [address] Luis Alberto Olivia Calcium [Mass/Vol] 9.2 mg/dL Normal 8.5-10.1 [facility] Comment on above: Performed By: #### T RANSFR #### [facility] [address] [address] [address] Luis Alberto Olivia Chloride [Moles/Vol] 106 mmol/L Normal 98-107 [facility] Comment on above: Performed By: #### T RANSFR #### [facility] [address] [address] [address] Luis Alberto Olivia CO2 [Moles/Vol] 28.6 mmol/L Normal 21.0-32.0 [facility] Comment on above: Performed By: #### T RANSFR #### [facility] [address] [place] [address] Dr. Luis Alberto Olivia Creatinine [Mass/Vol] 1.14 mg/dL Normal 0.70-1.30 [facility] Comment on above: Performed By: #### T RANSFR #### [facility] [address] [place] [address] Dr. Luis Alberto Olivia EGFR-AF SAO TOMEAN >60 Normal >=60 [facility] Comment on above: Performed By: #### T RANSFR #### [facility] [address] [place] [address] Dr. Luis Alberto Olivia EGFR-NON AF SAO TOMEAN >60 Normal >=60 [facility] Comment on above: Performed By: #### T RANSFR #### [facility] [address] [place] [address] Dr. Luis Alberto Olivia Globulin (S) [Mass/Vol] 3.4 g/dL Normal [facility] Comment on above: Performed By: #### T RANSFR #### [facility] [address] [place] [address] Dr. Luis Alberto Olivia Glucose [Mass/Vol] 110 mg/dL Critically high 74-106 [facility] Comment on above: Performed By: #### T RANSFR #### [facility] [address] [place] [address] Dr. Luis Alberto Olivia Potassium [Moles/Vol] 3.8 mmol/L Normal 3.5-5.1 [facility] Comment on above: Performed By: #### T RANSFR #### [facility] [address] [place] [address] Dr. Luis Alberto Olivia Protein [Mass/Vol] 6.8 g/dL Normal 6.4-8.2 [facility] Comment on above: Performed By: #### T RANSFR #### [facility] [address] [address] [address] Luis Alberto Olivia Sodium [Moles/Vol] 141 mmol/L Normal 136-145 [facility] Comment on above: Performed By: #### T RANSFR #### [facility] [address] [address] [address] Luis Alberto Olivia Urea nitrogen [Mass/Vol] 12.0 mg/dL Normal 7.0-18.0 [facility] Comment on above: Performed By: #### T RANSFR #### [facility] [address] [place] [address] Dr. Luis Alberto Olivia Urea nitrogen/Creatinine [Mass ratio] 10.5 mg/mg Normal [facility] Comment on above: Performed By: #### T RANSFR #### [facility] [address] [place] [address] Dr. Luis Alberto Olivia PROTIMEon 01-24-2022 INR Coag (PPP) [Relative time] 0.99 {INR} Normal [facility] Comment on above: Performed By: #### T RANSFR #### [facility] [address] [place] [address] Dr. Luis Alberto Olivia INR GUIDELINES SEE BELOW Normal [facility] Comment on above: Result Comment: KT RED INR: 2.0 - 3.0 CONDITIONS NOT LISTED BELOW 2.5 - 3.5 FOR PROSTHETIC HEART VALVE REPLACEMENT 2.5 - 3.5 RECURRENT THROMBOSIS Performed By: #### T RANSFR #### [facility] [address] [place] [address] Dr. Luis Alberto Olivia PT Coag (PPP) [Time] 10.7 s Normal 9.0-11.6 [facility] Comment on above: Performed By: #### T RANSFR #### [facility] [address] [place] [address] Dr. Luis Alberto Olivia PTTon 01-24-2022 aPTT Coag (Bld) [Time] 26.4 s Normal 22.3-36.2 [facility] Comment on above: Performed By: #### T RANSFR #### [facility] [address] [address] [address] Luis Alberto Olivia TROPONIN, HIGH SENSITIVITYon 01-24-2022 HSTROP 24.9 pg/mL Normal 4.0-76.1 [facility] Comment on above: Result Comment: CUT- OFF POINTS HAVE BEEN ESTABLISHED BASED ON THE FOURTH UNIVERSAL DEFINITIONS OF MYOCARDIAL INFARCTION. THE UPPER REFERENCE LIMIT (URL) OF TROPONIN, DEFINED THE 99TH PERCENTILE OF cTnI DISTRIBUTION IN A REFERENCE POPULATION, HAS BEEN CONFIRMED THE DECISION THRESHOLD FOR MT DIAGNOSIS. Performed By: #### U RCX #### [facility] [address] [place] [address] Dr. Luis Alberto Olivia XR CHEST 1 Von 01-24-2022 XR CHEST 1 V PORTABLE CHEST X-RAY . INDICATION: Chest pain. COMPARISON: 12/20/2021 TECHNIQUE: Single AP portable chest radiograph. FINDINGS: TUBES AND LINES: None. LUNGS: Lungs are clear. PLEURA: No effusions or pneumothorax. HEART AND MEDIASTINUM: Within normal limits for portable technique. OSSEOUS STRUCTURES: No acute abnormality. IMPRESSION: No acute findings. Electronically authenticated by: SAM CHAN Date: 2022-01-24 12:01 Normal [facility] CHEMISTRYOrdered By: SYSTEM SYSTEM on 01-13-2022 Ferritin [Mass/Vol] 912 ng/mL High 24 - 336 ng/mL [facility] Remisol Iron [Mass/Vol] 81 ug/dL Normal 35 - 153 mcg/dL [facility] Remisol Iron binding capacity [Mass/Vol] 383 ug/dL Normal 250 - 400 mcg/dL [facility] Remisol Iron saturation [Mass fraction] 21 % Normal 20 - 50 % [facility] Remisol Transferrin [Mass/Vol] 274 mg/dL Normal 200 - 370 mg/dL [facility] Remisol CBC AUTO DIFFon 01-10-2022 BASO # 0.0 103/ul Normal 0.0-0.1 [facility] Comment on above: Performed By: #### L IVER #### [facility] [address] [address] [address] Luis Alberto Olivia Basophils/100 WBC (Bld) 0.6 % Normal 0.2-2.0 [facility] Comment on above: Performed By: #### L IVER #### [facility] [address] [place] [address] Dr. Luis Alberto Olivia EO # 0.1 103/ul Normal 0.0-0.7 [facility] Comment on above: Performed By: #### L IVER #### [facility] [address] [place] [address] Dr. Luis Alberto Olivia Eosinophils/100 WBC (Bld) 1.7 % Normal 0.9-7.0 [facility] Comment on above: Performed By: #### L IVER #### [facility] [address] [place] [address] Dr. Luis Alberto Olivia Erythrocyte distribution width (RBC) [Ratio] 17.1 % Critically high 11.0-15.0 [facility] Comment on above: Performed By: #### L IVER #### [facility] [address] [place] [address] Dr. Luis Alberto Olivia Hematocrit (Bld) [Volume fraction] 33.2 % Critically low 42.0-54.0 [facility] Comment on above: Performed By: #### L IVER #### [facility] [address] [place] [address] Dr. Luis Alberto Olivia Hemoglobin (Bld) [Mass/Vol] 10.0 g/dL Critically low 14.0-18.0 [facility] Comment on above: Performed By: #### L IVER #### [facility] [address] [place] [address] Dr. Luis Alberto Olivia IG # 0.03 10e3/ul Normal 0.00-0.03 [facility] Comment on above: Performed By: #### L IVER #### [facility] [address] [place] [address] Dr. Luis Alberto Olivia IG % 0.4 % Normal 0.0-0.5 [facility] Comment on above: Performed By: #### L IVER #### [facility] [address] [place] [address] Dr. Luis Alberto Olivia LYMPH # 0.8 103/ul Critically low 1.2-3.8 [facility] Comment on above: Performed By: #### L IVER #### [facility] [address] [place] [address] Dr. Luis Alberto Olivia Lymphocytes/100 WBC (Bld) 11.4 % Critically low 20.5-60.0 [facility] Comment on above: Performed By: #### L IVER #### [facility] [address] [place] [address] Dr. Luis Alberto Olivia MANUAL DIFF REQ NO Normal [facility] Comment on above: Performed By: #### L IVER #### [facility] [address] [place] [address] Dr. Luis Alberto Olivia MCH (RBC) [Entitic mass] 29.9 pg Normal 25.9-34.0 [facility] Comment on above: Performed By: #### L IVER #### [facility] [address] [place] [address] Dr. Luis Alberto Olivia MCHC (RBC) [Mass/Vol] 30.1 g/dL Normal 29.9-35.2 [facility] Comment on above: Performed By: #### L IVER #### [facility] [address] [place] [address] Dr. Luis Alberto Olivia MCV (RBC) [Entitic vol] 99.4 fL Critically high 80.0-94.0 [facility] Comment on above: Performed By: #### L IVER #### [facility] [address] [place] [address] Dr. Luis Alberto Olivia MONO # 0.7 103/ul Normal 0.3-0.8 [facility] Comment on above: Performed By: #### L IVER #### [facility] [address] [place] [address] Dr. Luis Alberto Olivia Monocytes/100 WBC (Bld) 10.0 % Normal 1.7-12.0 [facility] Comment on above: Performed By: #### L IVER #### [facility] [address] [place] [address] Dr. Luis Alberto Olivia NEUT # 5.2 103/ul Normal 1.4-6.5 [facility] Comment on above: Performed By: #### L IVER #### [facility] [address] [address] [address] Luis Alberto Olivia Neutrophils/100 WBC (Bld) 75.9 % Critically high 43.0-75.0 [facility] Comment on above: Performed By: #### L IVER #### [facility] [address] [address] [address] Luis Alberto Olivia Platelet mean volume (Bld) [Entitic vol] 9.6 fL Normal 9.5-13.5 [facility] [facility] Comment on above: Performed By: #### L IVER #### [facility] [address] [address] [address] Luis Alberto Olivia PLT 286 103/ul Normal 150-450 [facility] Comment on above: Performed By: #### L IVER #### [facility] [address] [place] [address] Dr. Luis Alberto Olivia RBC 3.34 106/ul Critically low 4.70-6.10 [facility] Comment on above: Performed By: #### L IVER #### [facility] [address] [address] [address] Luis Alberto Olivia WBC 6.9 103/ul Normal 4.0-11.0 [facility] Comment on above: Performed By: #### L IVER #### [facility] [address] [place] [address] [address] ABD/PELVIS WO CONon 01-10 CT ABD/PELVIS WO CON EXAMINATION: CT ABD/PELVIS WO CON, 01/10/2022 4:39 PM EDT HISTORY: CALCULUS OF KIDNEY COMPARISON: Priors reviewed including CT and pelvis 10/30/2021 TECHNIQUE: CT scan of the abdomen and pelvis was performed without IV contrast. Oral contrast was not administered prior to the examination. Sagittal and coronal reformats were created and saved to PACS. Dose reduction techniques were achieved by using automated exposure control and/or adjustment of mA and/or kV according to patient size and/or use of iterative reconstruction technique. FINDINGS: Noncontrasted nature of the exam limits evaluation of the vascular structures and solid organs. Lung Bases: Normal. Liver: Normal size and contour. Few unchanged subcentimeter hypoattenuating foci are incompletely characterized without the use of IV contrast, well-defined, likely cysts. Biliary tree: Normal. Gallbladder: Normal. Spleen: Normal. Pancreas: Normal. Adrenal glands: Normal. Kidneys and ureters: Unchanged left renal cysts and few additional subcentimeter cortical hypodensities which are technically too small to characterize but likely cysts. Unchanged subcentimeter intrinsically attenuating focus within the superior pole left kidney (image 37 series 2), likely proteinaceous/hemorrh agic cyst. No suspicious mass. No hydronephrosis. Bladder: Normal. Reproductive organs: Prostatomegaly, with similar treatment changes of the prostate. Seminal vesicles are unremarkable.. Gastrointestinal tract: No findings of obstruction. Colonic diverticulosis without acute diverticulitis. No findings of acute appendicitis. Peritoneum/retroperit oneum: No free fluid or gas. Vasculature: Atherosclerosis without aneurysm. Lymph nodes: Normal. Abdominal wall: Fat-containing right inguinal hernia. Musculoskeletal: Degenerative change of the spine. IMPRESSION: 1. No acute findings within the abdomen or pelvis given limitations of noncontrast exam. Specifically negative for hydronephrosis or radiodense nephrolithiasis. 2. Unchanged chronic findings detailed above. Electronically authenticated by: KB SMALLWOOD Date: 2022-01-10 17:45 Normal [facility] CULTURE URINEon 01-10-2022 CULTURE URINE Culture Observations : NO GROWTH. Normal [facility] Comment on above: Performed By: #### U RCX #### [facility] [address] [place] [address] Dr. Luis Alberto Olivia ER URINE PROFILEon 2 Bilirubin Ql (U) Negative Normal NEGATIVE [facility] Comment on above: Performed By: #### B [id number] #### [facility] [address] [address] [address] Luis Alberto Olivia Clarity (U) CLEAR Normal CLEAR [facility] Comment on above: Performed By: #### B [id number] #### [facility] [address] [place] [address] Dr. Luis Alberto Olivia Color (U) LT. YELLOW Normal YELLOW [facility] Comment on above: Performed By: #### B [id number] #### [facility] [address] [address] [address] Luis Alberto Trujillo micrscopic examination will be performed if indicated. Normal [facility] Comment on above: Performed By: #### B [id number] #### [facility] [address] [place] [address] Dr. Luis Alberto Olivia Glucose Ql (U) Negative Normal NEGATIVE [facility] Comment on above: Performed By: #### B LDCX2 #### [facility] [address] [place] [address] Dr. Luis Alberto Olivia Hemoglobin Ql (U) Negative Normal [facility] Comment on above: Performed By: #### B [id number] #### [facility] [address] [place] [address] Dr. Luis Alberto Olivia Ketones Ql (U) Negative Normal NEGATIVE [facility] Comment on above: Performed By: #### B [id number] #### [facility] [address] [place] [address] Dr. Luis Alberto Olivia LEUKOCYTES SMALL Abnormal NEGATIVE [facility] Comment on above: Performed By: #### B [id number] #### [facility] [address] [place] [address] Dr. Luis Alberto Olivia Nitrite Ql (U) Negative Normal NEGATIVE [facility] Comment on above: Performed By: #### B [id number] #### [facility] [address] [place] [address] Dr. Luis Alberto Olivia pH (U) 6.0 [pH] Normal 5-9 [facility] Comment on above: Performed By: #### B [id number] #### [facility] [address] [place] [address] Dr. Luis Alberto Olivia SPEC GRAVITY 1.015 Normal 1.005-<=1.02 5 [facility] Comment on above: Performed By: #### B [id number] #### [facility] [address] [place] [address] Dr. Luis Alberto Olivia UA PROTEIN Negative Normal NEGATIVE/ TRACE [facility] Comment on above: Performed By: #### B [id number] #### [facility] [address] [place] [address] Dr. Luis Alberto Olivia UR MICRO IND INDICATED Normal [facility] Comment on above: Performed By: #### B [id number] #### [facility] [address] [place] [address] Dr. Luis Alberto Olivia Urobilinogen Qn (U) 0.2 {Srini'U}/dL Normal 0.2 - 1. 0 [facility] Comment on above: Performed By: #### B LDCX2 #### [facility] [address] [place] [address] Dr. Luis Alberto Olivia PROF CHEM 8 (BAS METB)on Anion gap [Moles/Vol] 12.1 mmol/L Normal [facility] Comment on above: Performed By: #### B [id number] #### [facility] [address] [place] [address] Dr. Luis Alberto Olivia Calcium [Mass/Vol] 9.0 mg/dL Normal 8.5-10.1 [facility] Comment on above: Performed By: #### B [id number] #### [facility] [address] [place] [address] Dr. Luis Alberto Olivia Chloride [Moles/Vol] 103 mmol/L Normal 98-107 [facility] Comment on above: Performed By: #### B [id number] #### [facility] [address] [place] [address] Dr. Luis Alberto Olivia CO2 [Moles/Vol] 27.9 mmol/L Normal 21.0-32.0 [facility] Comment on above: Performed By: #### B LDCX2 #### [facility] [address] [place] [address] Dr. Luis Alberto Olivia Creatinine [Mass/Vol] 1.28 mg/dL Normal 0.70-1.30 [facility] Comment on above: Performed By: #### B [id number] #### [facility] [address] [place] [address] Dr. Luis Alberto Olivia EGFR-AF SAO TOMEAN >60 Normal >=60 [facility] Comment on above: Performed By: #### B LDCX2 #### [facility] [address] [address] [address] Luis Alberto Olivia EGFR-NON AF SAO TOMEAN 55 mL/min/1.73m2 Critically low >=60 [facility] Comment on above: Performed By: #### B [id number] #### [facility] [address] [address] [address] Luis Alberto Olivia Glucose [Mass/Vol] 96 mg/dL Normal 74-106 [facility] Comment on above: Performed By: #### B LDCX2 #### [facility] [address] [place] [address] Dr. Luis Alberto Olivia Potassium [Moles/Vol] 4.0 mmol/L Normal 3.5-5.1 [facility] Comment on above: Performed By: #### B LDCX2 #### [facility] [address] [place] [address] Dr. Luis Alberto Olivia Sodium [Moles/Vol] 139 mmol/L Normal 136-145 [facility] Comment on above: Performed By: #### B LDCX2 #### [facility] [address] [place] [address] Dr. Luis Alberto Olivia Urea nitrogen [Mass/Vol] 13.0 mg/dL Normal 7.0-18.0 [facility] Comment on above: Performed By: #### B [id number] #### [facility] [address] [place] [address] Dr. Luis Alberto Olivia Urea nitrogen/Creatinine [Mass ratio] 10.2 mg/mg Normal [facility] Comment on above: Performed By: #### B LDCX2 #### [facility] [address] [place] [address] Dr. Luis Alberto Olivia URINE MICROSCOPIC ONLYon BACTERIA NONE SEEN Normal NONE SEEN [facility] Comment on above: Performed By: #### B LDCX2 #### [facility] [address] [place] [address] Dr. Luis Alberto Olivia Bacteria identified Cx Nom (U) INDICATED Normal [facility] Comment on above: Performed By: #### B [id number] #### [facility] [address] [place], [place] [id number] Dr. Luis Alberto Olivia CAST NONE SEEN Normal NONE SEEN [facility] Comment on above: Performed By: #### B LDCX2 #### [facility] [address] [place] [address] Dr. Luis Alberto Olivia Crystals LM Nom (Urine sed) NONE SEEN Normal NONE SEEN [facility] Comment on above: Performed By: #### B LDCX2 #### [facility] [address] [place] [address] Dr. Luis Alberto Olivia Epithelial cells LM Ql (Urine sed) MODERATE Abnormal NONE SEEN /RARE [facility] Comment on above: Performed By: #### B [id number] #### [facility] [address] [place] [address] Dr. Luis Alberto Olivia MUCOUS NONE SEEN Normal NONE SEEN [facility] Comment on above: Performed By: #### B LDCX2 #### [facility] [address] [place] [address] Dr. Luis Alberto Olivia RBC 0-2 Normal 0-2 [facility] Comment on above: Performed By: #### B LDCX2 #### [facility] [address] [place] [address] Dr. Luis Alberto Olivia WBC 10-20 Abnormal NONE SEEN [facility] Comment on above: Performed By: #### B LDCX2 #### [facility] [address] [place] [address] Dr. Luis Alberto Olivia CHEMISTRYOrdered By: SYSTEM SYSTEM on 01-01-2022 Anion gap [Moles/Vol] 13 mmol/L Normal 6 - 16 mEq/L [facility] Calcium [Mass/Vol] 9.5 mg/dL Normal 8.9 - 11. 1 mg/dL [facility] Chloride [Moles/Vol] 104 mmol/L Normal 101 - 1 11 mmol/L [facility] CO2 [Moles/Vol] 25 mmol/L Normal 21 - 31 mmol/L [facility] Creatinine [Mass/Vol] 1.1 mg/dL Normal 0.5 - 1.3 mg/dL [facility] Remisol GFR/1.73 sq M.predicted among blacks MDRD (S/P/Bld) [Vol rate/Area] mL/min/1.73 m2 Normal >=59mL/min/1 .73 m2 [facility] Chem S GFR/1.73 sq M.predicted among non-blacks MDRD (S/P/Bld) [Vol rate/Area] mL/min/1.73 m2 Normal >=59mL/min/1 .73 m2 [facility] Chem S Glucose [Mass/Vol] 124 mg/dL Normal 55 - 199 mg/dL [facility] Potassium [Moles/Vol] 3.6 mmol/L Normal 3.5 - 5.3 mmol/L [facility] Sodium [Moles/Vol] 138 mmol/L Normal 135 - 145 mmol/L [facility] Urea nitrogen [Mass/Vol] 10 mg/dL Normal 5 - 21 mg/dL [facility] Urea nitrogen/Creatinine [Mass ratio] 9 mg/mg Low 10 - 20 [facility] HEMATOLOGYOrdered By: Adilene Carrera on 01-01-2022 Erythrocyte distribution width (RBC) [Ratio] 16.5 % High 10.9 - 14.2 % [facility] Hematocrit (Bld) [Volume fraction] 29.1 % Low 37.7 - 49.0 % [facility] Hemoglobin (Bld) [Mass/Vol] 9.8 g/dL Low 13.5 - 17.5 gm/dL [facility] MCH (RBC) [Entitic mass] 30.9 pg Normal 27.0 - 34.0 pg [facility] MCHC (RBC) [Mass/Vol] 33.5 g/dL Normal 31.4 - 36.0 gm/dL [facility] MCV (RBC) [Entitic vol] 92.1 fL Normal 80.0 - 100.0 fL [facility] Platelet mean volume (Bld) [Entitic vol] 6.7 fL Normal 6.4 - 10.8 fL [facility] Platelets (Bld) [#/Vol] 441.0 E9/L Normal 150.0 - 500.0 E9/L [facility] RBC (Bld) [#/Vol] 3.2 E12/L Low 4.3 - 5.9 E12/L [facility] WBC corrected for nucl RBC Auto (Bld) [#/Vol] 4.5 E9/L Normal 4.0 - 11.0 E9/L [facility] CULTURE URINEon 12-25-2021 CULTURE URINE Isolate 1 Klebsiella pneumoniae >100,000 cfu/mL of ORGANISM 1 Klebsiella pneumoniae ANTIBIOTIC M.I.C RX STATUS Ampicillin 16 R F Ampicillin/Sulbactam 4 S F Piperacillin/Tazobact am 8 S F Cefazolin <=4 S F Ceftazidime <=1 S F Ceftriaxone <=1 S F Ertapenem <=0.5 S F Imipenem <=0.25 S F Amikacin <=2 S F Gentamicin <=1 S F Tobramycin <=1 S F Ciprofloxacin <=0.25 S F Levofloxacin <=0.12 S F Nitrofurantoin <=16 S F Trimethoprim/Sulfamet hoxazole <=20 S F Normal [facility] Comment on above: Performed By: #### R ETYPE #### [facility] [address] [place] [address] Dr. Luis Alberto Olivia PRBC LEUKOREDUCEDon 12-25-19 22 ABO and Rh group Nom (Bld) Cross Match Result Compatible Unit Blood Type O Pos Unit Number [id number] Status Information Transfused Product ID Red Blood Cells Product Code [id number] Cross Match Result Compatible Unit Blood Type O Pos Unit Number [id number] Status Information Transfused Product ID Red Blood Cells Product Code [id number] Normal [facility] Comment on above: Performed By: #### R ETYPE #### [facility] [address] [place] [address] Dr. Luis Alberto Olivia CBC AUTO DIFFon 12-23-2021 BASO # 0.0 103/ul Normal 0.0-0.1 [facility] Comment on above: Performed By: #### U RCX #### [facility] [address] [place] [address] Dr. Luis Alberto Olivia Basophils/100 WBC (Bld) 0.3 % Normal 0.2-2.0 [facility] Comment on above: Performed By: #### U RCX #### [facility] [address] [place] [address] Dr. Luis Alberto Olivia EO # 0.1 103/ul Normal 0.0-0.7 [facility] Comment on above: Performed By: #### U RCX #### [facility] [address] [place] [address] Dr. Luis Alberto Olivia Eosinophils/100 WBC (Bld) 0.8 % Critically low 0.9-7.0 [facility] Comment on above: Performed By: #### U RCX #### [facility] [address] [place] [address] Dr. Luis Alberto Olivia Erythrocyte distribution width (RBC) [Ratio] 18.3 % Critically high 11.0-15.0 [facility] Comment on above: Performed By: #### U RCX #### [facility] [address] [place] [address] Dr. Luis Alberto Olivia Hematocrit (Bld) [Volume fraction] 25.0 % Critically low 42.0-54.0 [facility] Comment on above: Performed By: #### U RCX #### [facility] [address] [place] [address] Dr. Luis Alberto Olivia Hemoglobin (Bld) [Mass/Vol] 7.7 g/dL Critically low 14.0-18.0 [facility] Comment on above: Performed By: #### U RCX #### [facility] [address] [place] [address] Dr. Luis Alberto Olivia IG # 0.03 10e3/ul Normal 0.00-0.03 [facility] Comment on above: Performed By: #### U RCX #### [facility] [address] [place] [address] Dr. Luis Alberto Olivia IG % 0.5 % Normal 0.0-0.5 [facility] Comment on above: Performed By: #### U RCX #### [facility] [address] [place] [address] Dr. Luis Alberto Olivia LYMPH # 0.6 103/ul Critically low 1.2-3.8 [facility] Comment on above: Performed By: #### U RCX #### [facility] [address] [place] [address] Dr. Luis Alberto Olivia Lymphocytes/100 WBC (Bld) 9.9 % Critically low 20.5-60.0 [facility] Comment on above: Performed By: #### U RCX #### [facility] [address] [place] [address] Dr. Luis Alberto Olivia MANUAL DIFF REQ NO Normal [facility] Comment on above: Performed By: #### U RCX #### [facility] [address] [place] [address] Dr. Luis Alberto Olivia MCH (RBC) [Entitic mass] 30.9 pg Normal 25.9-34.0 [facility] Comment on above: Performed By: #### U RCX #### [facility] [address] [place] [address] Dr. Luis Alberto Olivia MCHC (RBC) [Mass/Vol] 30.8 g/dL Normal 29.9-35.2 [facility] Comment on above: Performed By: #### U RCX #### [facility] [address] [place] [address] Dr. Luis Alberto Olivia MCV (RBC) [Entitic vol] 100.4 fL Critically high 80.0-94.0 [facility] Comment on above: Performed By: #### U RCX #### [facility] [address] [place] [address] Dr. Luis Alberto Olivia MONO # 0.6 103/ul Normal 0.3-0.8 [facility] Comment on above: Performed By: #### U RCX #### [facility] [address] [place] [address] Dr. Luis Alberto Olivia Monocytes/100 WBC (Bld) 9.4 % Normal 1.7-12.0 [facility] Comment on above: Performed By: #### U RCX #### [facility] [address] [place] [address] Dr. Luis Alberto Olivia NEUT # 4.9 103/ul Normal 1.4-6.5 [facility] Comment on above: Performed By: #### U RCX #### [facility] [address] [place] [address] Dr. Luis Alberto Olivia Neutrophils/100 WBC (Bld) 79.1 % Critically high 43.0-75.0 [facility] Comment on above: Performed By: #### U RCX #### [facility] [address] [place] [address] Dr. Luis Alberto Olivia Platelet mean volume (Bld) [Entitic vol] 10.2 fL Normal 9.5-13.5 [facility] Comment on above: Performed By: #### U RCX #### [facility] [address] [place] [address] Dr. Luis Alberto Olivia PLT 254 103/ul Normal 150-450 [facility] Comment on above: Performed By: #### U RCX #### [facility] [address] [place] [address] Dr. Luis Alberto Olivia RBC 2.49 106/ul Critically low 4.70-6.10 [facility] Comment on above: Performed By: #### U RCX #### [facility] [address] [place] [address] Dr. Luis Alberto Olivia WBC 6.2 103/ul Normal 4.0-11.0 [facility] Comment on above: Performed By: #### U RCX #### [facility] [address] [place] [address] Dr. Luis Alberto Olivia PROF 14(COMP METB)on 022 Albumin [Mass/Vol] 2.7 g/dL Critically low 3.4-5.0 [facility] Comment on above: Performed By: #### U RCX #### [facility] [address] [place] [address] Dr. Luis Alberto Olivia Albumin/Globulin [Mass ratio] 0.8 {ratio} Normal [facility] Comment on above: Performed By: #### U RCX #### [facility] [address] [place] [address] Dr. Luis Alberto Olivia ALP [Catalytic activity/Vol] 42 U/L Critically low 46-116 [facility] Comment on above: Performed By: #### U RCX #### [facility] [address] [place] [address] Dr. Luis Alberto Olivia ALT [Catalytic activity/Vol] 26 U/L Normal 16-63 [facility] Comment on above: Performed By: #### U RCX #### [facility] [address] [place] [address] Dr. Luis Alberto Olivia Anion gap [Moles/Vol] 14.2 mmol/L Normal [facility] Comment on above: Performed By: #### U RCX #### [facility] [address] [address] [address] Luis Alberto Olivia AST [Catalytic activity/Vol] 26 U/L Normal 15-37 [facility] Comment on above: Performed By: #### U RCX #### [facility] [address] [place] [address] Dr. Luis Alberto Olivia Bilirubin [Mass/Vol] 0.8 mg/dL Normal 0.2-1.0 [facility] Comment on above: Performed By: #### U RCX #### [facility] [address] [place] [address] Dr. Luis Alberto Olivia Calcium [Mass/Vol] 8.3 mg/dL Critically low 8.5-10.1 [facility] Comment on above: Performed By: #### U RCX #### [facility] [address] [place] [address] Dr. Luis Alberto Olivia Chloride [Moles/Vol] 100 mmol/L Normal 98-107 [facility] Comment on above: Performed By: #### U RCX #### [facility] [address] [place] [address] Dr. Luis Alberto Olivia CO2 [Moles/Vol] 22.5 mmol/L Normal 21.0-32.0 [facility] Comment on above: Performed By: #### U RCX #### [facility] [address] [place] [address] Dr. Luis Alberto Olivia Creatinine [Mass/Vol] 1.05 mg/dL Normal 0.70-1.30 [facility] Comment on above: Performed By: #### U RCX #### [facility] [address] [place] [address] Dr. Luis Alberto Olivia EGFR-AF SAO TOMEAN >60 Normal >=60 [facility] Comment on above: Performed By: #### U RCX #### [facility] [address] [address] [address] Luis Alberto Olivia EGFR-NON AF SAO TOMEAN >60 Normal >=60 [facility] Comment on above: Performed By: #### U RCX #### [facility] [address] [address] [address] Luis Alberto Olivia Globulin (S) [Mass/Vol] 3.5 g/dL Normal [facility] Comment on above: Performed By: #### U RCX #### [facility] [address] [address] [address] Luis Alberto Olivia Glucose [Mass/Vol] 108 mg/dL Critically high 74-106 [facility] Comment on above: Performed By: #### U RCX #### [facility] [address] [address] [address] Luis Alberto Olivia Potassium [Moles/Vol] 3.7 mmol/L Normal 3.5-5.1 [facility] Comment on above: Performed By: #### U RCX #### [facility] [address] [address] [address] Luis Alberto Olivia Protein [Mass/Vol] 6.2 g/dL Critically low 6.4-8.2 [facility] Comment on above: Performed By: #### U RCX #### [facility] [address] [address] [address] Luis Alberto Olivia Sodium [Moles/Vol] 133 mmol/L Critically low 136-145 [facility] Comment on above: Performed By: #### U RCX #### [facility] [address] [address] [address] Luis Alberto Olivia Urea nitrogen [Mass/Vol] 13.0 mg/dL Normal 7.0-18.0 [facility] Comment on above: Performed By: #### U RCX #### [facility] [address] [address] [address] Luis Alberto Olivia Urea nitrogen/Creatinine [Mass ratio] 12.4 mg/mg Normal [facility] Comment on above: Performed By: #### U RCX #### [facility] [address] [place] [address] Dr. Luis Alberto Olivia CBC AUTO DIFFon 12-22-2021 BASO # 0.0 103/ul Normal 0.0-0.1 [facility] Comment on above: Performed By: #### L IVER #### [facility] [address] [place] [address] Dr. Luis Alberto Olivia Basophils/100 WBC (Bld) 0.4 % Normal 0.2-2.0 [facility] Comment on above: Performed By: #### L IVER #### [facility] [address] [place] [address] Dr. Luis Alberto Olivia EO # 0.0 103/ul Normal 0.0-0.7 [facility] Comment on above: Performed By: #### L IVER #### [facility] [address] [place] [address] Dr. Luis Alberto Olivia Eosinophils/100 WBC (Bld) 0.2 % Critically low 0.9-7.0 [facility] Comment on above: Performed By: #### L IVER #### [facility] [address] [place] [address] Dr. Luis Alberto Olivia Erythrocyte distribution width (RBC) [Ratio] 19.2 % Critically high 11.0-15.0 [facility] Comment on above: Performed By: #### L IVER #### [facility] [address] [place] [address] Dr. Luis Alberto Olivia Hematocrit (Bld) [Volume fraction] 27.1 % Critically low 42.0-54.0 [facility] Comment on above: Performed By: #### L IVER #### [facility] [address] [place] [address] Dr. Luis Alberto Olivia Hemoglobin (Bld) [Mass/Vol] 8.5 g/dL Critically low 14.0-18.0 [facility] Comment on above: Performed By: #### L IVER #### [facility] [address] [place] [address] Dr. Luis Alberto Olivia IG # 0.07 10e3/ul Critically high 0.00-0.03 [facility] Comment on above: Performed By: #### L IVER #### [facility] [address] [place] [address] Dr. Luis Alberto Olivia IG % 0.8 % Critically high 0.0-0.5 [facility] Comment on above: Performed By: #### L IVER #### [facility] [address] [address] [address] Luis Alberto Olivia LYMPH # 0.7 103/ul Critically low 1.2-3.8 [facility] Comment on above: Performed By: #### L IVER #### [facility] [address] [place] [address] Dr. Luis Alberto Olivia Lymphocytes/100 WBC (Bld) 7.9 % Critically low 20.5-60.0 [facility] Comment on above: Performed By: #### L IVER #### [facility] [address] [place] [address] Dr. Luis Alberto Olivia MANUAL DIFF REQ NO Normal [facility] Comment on above: Performed By: #### L IVER #### [facility] [address] [place] [address] Dr. Luis Alberto Olivia MCH (RBC) [Entitic mass] 31.6 pg Normal 25.9-34.0 [facility] Comment on above: Performed By: #### L IVER #### [facility] [address] [place] [address] Dr. Luis Alberto Olivia MCHC (RBC) [Mass/Vol] 31.4 g/dL Normal 29.9-35.2 [facility] Comment on above: Performed By: #### L IVER #### [facility] [address] [place] [address] Dr. Luis Alberto Olivia MCV (RBC) [Entitic vol] 100.7 fL Critically high 80.0-94.0 [facility] Comment on above: Performed By: #### L IVER #### [facility] [address] [place] [address] Dr. Luis Alberto Olivia MONO # 0.7 103/ul Normal 0.3-0.8 [facility] Comment on above: Performed By: #### L IVER #### [facility] [address] [place] [address] Dr. Luis Alberto Olivia Monocytes/100 WBC (Bld) 7.8 % Normal 1.7-12.0 [facility] Comment on above: Performed By: #### L IVER #### [facility] [address] [place] [address] Dr. Luis Alberto Olivia NEUT # 7.5 103/ul Critically high 1.4-6.5 [facility] Comment on above: Performed By: #### L IVER #### [facility] [address] [place] [address] Dr. Luis Alberto Olivia Neutrophils/100 WBC (Bld) 82.9 % Critically high 43.0-75.0 [facility] Comment on above: Performed By: #### L IVER #### [facility] [address] [place] [address] Dr. Luis Alberto Olivia Platelet mean volume (Bld) [Entitic vol] 9.4 fL Critically low 9.5-13.5 [facility] Comment on above: Performed By: #### L IVER #### [facility] [address] [place] [address] Dr. Luis Alberto Olivia PLT 232 103/ul Normal 150-450 [facility] Comment on above: Performed By: #### L IVER #### [facility] [address] [place] [address] Dr. Luis Alberto Olivia RBC 2.69 106/ul Critically low 4.70-6.10 [facility] Comment on above: Performed By: #### L IVER #### [facility] [address] [place] [address] Dr. Luis Alberto Olivia WBC 9.0 103/ul Normal 4.0-11.0 [facility] Comment on above: Performed By: #### L IVER #### [facility] [address] [place] [address] Dr. Luis Alberto Olivia HEMOGLOBIN AND HEMATOCRITon 12-22-2021 Hematocrit (Bld) [Volume fraction] 24.2 % Critically low 42.0-54.0 [facility] Comment on above: Performed By: #### U RCX #### [facility] [address] [place] [address] Dr. Luis Alberto Olivia Hemoglobin (Bld) [Mass/Vol] 7.7 g/dL Critically low 14.0-18.0 [facility] Comment on above: Performed By: #### U RCX #### [facility] [address] [place] [address] Dr. Luis Alberto Olivia Hematocrit (Bld) [Volume fraction] 24.2 % Critically low 42.0-54.0 [facility] Comment on above: Performed By: #### T RANSFR #### [facility] [address] [place] [address] Dr. Luis Alberto Olivia Hemoglobin (Bld) [Mass/Vol] 7.7 g/dL Critically low 14.0-18.0 [facility] Comment on above: Performed By: #### T RANSFR #### [facility] [address] [place] [address] Dr. Luis Alberto Olivia PROF 14(COMP METB)on 022 Albumin [Mass/Vol] 2.8 g/dL Critically low 3.4-5.0 [facility] Comment on above: Performed By: #### L IVER #### [facility] [address] [place] [address] Dr. Luis Alberto Olivia Albumin/Globulin [Mass ratio] 0.8 {ratio} Normal [facility] Comment on above: Performed By: #### L IVER #### [facility] [address] [place] [address] Dr. Luis Alberto Olivia ALP [Catalytic activity/Vol] 43 U/L Critically low 46-116 [facility] Comment on above: Performed By: #### L IVER #### [facility] [address] [place] [address] Dr. Luis Alberto Olivia ALT [Catalytic activity/Vol] 20 U/L Normal 16-63 [facility] Comment on above: Performed By: #### L IVER #### [facility] [address] [address] [address] Luis Alberto Olivia Anion gap [Moles/Vol] 10.9 mmol/L Normal [facility] Comment on above: Performed By: #### L IVER #### [facility] [address] [address] [address] Luis Alberto Olivia AST [Catalytic activity/Vol] 23 U/L Normal 15-37 [facility] Comment on above: Performed By: #### L IVER #### [facility] [address] [address] [address] Luis Alberto Olivia Bilirubin [Mass/Vol] 0.7 mg/dL Normal 0.2-1.0 [facility] Comment on above: Performed By: #### L IVER #### [facility] [address] [place] [address] Dr. Luis Alberto Olivia Calcium [Mass/Vol] 8.0 mg/dL Critically low 8.5-10.1 [facility] Comment on above: Performed By: #### L IVER #### [facility] [address] [place] [address] Dr. Luis Alberto Olivia Chloride [Moles/Vol] 103 mmol/L Normal 98-107 [facility] Comment on above: Performed By: #### L IVER #### [facility] [address] [place] [address] Dr. Luis Alberto Olivia CO2 [Moles/Vol] 22.2 mmol/L Normal 21.0-32.0 [facility] Comment on above: Performed By: #### L IVER #### [facility] [address] [place] [address] Dr. Luis Alberto Olivia Creatinine [Mass/Vol] 1.08 mg/dL Normal 0.70-1.30 [facility] Comment on above: Performed By: #### L IVER #### [facility] [address] [address] [address] Luis Alberto Olivia EGFR-AF SAO TOMEAN >60 Normal >=60 [facility] Comment on above: Performed By: #### L IVER #### [facility] [address] [address] [address] Luis Alberto Olivia EGFR-NON AF SAO TOMEAN >60 Normal >=60 [facility] Comment on above: Performed By: #### L IVER #### [facility] [address] [address] [address] Luis Alberto Olivia Globulin (S) [Mass/Vol] 3.5 g/dL Normal [facility] Comment on above: Performed By: #### L IVER #### [facility] [address] [address] [address] Luis Alberto Olivia Glucose [Mass/Vol] 119 mg/dL Critically high 74-106 [facility] Comment on above: Performed By: #### L IVER #### [facility] [address] [place] [address] Dr. Luis Alberto Olivia Potassium [Moles/Vol] 4.1 mmol/L Normal 3.5-5.1 [facility] Comment on above: Performed By: #### L IVER #### [facility] [address] [place] [address] Dr. Luis Alberto Olivia Protein [Mass/Vol] 6.3 g/dL Critically low 6.4-8.2 [facility] Comment on above: Performed By: #### L IVER #### [facility] [address] [place] [address] Dr. Luis Alberto Olivia Sodium [Moles/Vol] 132 mmol/L Critically low 136-145 [facility] Comment on above: Performed By: #### L IVER #### [facility] [address] [place] [address] Dr. Luis Alberto Olivia Urea nitrogen [Mass/Vol] 17.0 mg/dL Normal 7.0-18.0 [facility] Comment on above: Performed By: #### L IVER #### [facility] [address] [place] [address] Dr. Luis Alberto Olivia Urea nitrogen/Creatinine [Mass ratio] 15.7 mg/mg Normal [facility] Comment on above: Performed By: #### L IVER #### [facility] [address] [place] [address] Dr. Luis Alberto Olivia TRANSFERRINon 12-22-2021 Transferrin [Mass/Vol] 327 mg/dL Normal 177-329 [facility] Comment on above: Performed By: #### T RANSFR #### [facility] [address] [place] [address] Dr. Luis Alberto Olivia CBC AUTO DIFFon 12-21-2021 BASO # 0.0 103/ul Normal 0.0-0.1 [facility] Comment on above: Performed By: #### B [id number] #### [facility] [address] [place] [address] Dr. Luis Alberto Olivia Basophils/100 WBC (Bld) 0.4 % Normal 0.2-2.0 [facility] Comment on above: Performed By: #### B LDCX2 #### [facility] [address] [place] [address] Dr. Luis Alberto Olivia EO # 0.1 103/ul Normal 0.0-0.7 [facility] Comment on above: Performed By: #### B LDCX2 #### [facility] [address] [place] [address] Dr. Luis Alberto Olivia Eosinophils/100 WBC (Bld) 1.2 % Normal 0.9-7.0 [facility] Comment on above: Performed By: #### B LDCX2 #### [facility] [address] [place] [address] Dr. Luis Alberto Olivia Erythrocyte distribution width (RBC) [Ratio] 19.1 % Critically high 11.0-15.0 [facility] Comment on above: Performed By: #### B LDCX2 #### [facility] [address] [place] [address] Dr. Luis Alberto Olivia Hematocrit (Bld) [Volume fraction] 26.9 % Critically low 42.0-54.0 [facility] Comment on above: Performed By: #### B LDCX2 #### [facility] [address] [place] [address] Dr. Luis Alberto Olivia Hemoglobin (Bld) [Mass/Vol] 8.4 g/dL Critically low 14.0-18.0 [facility] Comment on above: Result Comment: RECE IVING PRBCS Performed By: #### B LDCX2 #### [facility] [address] [place] [address] Dr. Luis Alberto Olivia IG # 0.06 10e3/ul Critically high 0.00-0.03 [facility] Comment on above: Performed By: #### B LDCX2 #### [facility] [address] [place] [address] Dr. Luis Alberto Olivia IG % 0.7 % Critically high 0.0-0.5 [facility] Comment on above: Performed By: #### B LDCX2 #### [facility] [address] [place] [address] Dr. Luis Alberto Olivia LYMPH # 0.6 103/ul Critically low 1.2-3.8 [facility] Comment on above: Performed By: #### B LDCX2 #### [facility] [address] [place] [address] Dr. Luis Alberto Olivia Lymphocytes/100 WBC (Bld) 7.3 % Critically low 20.5-60.0 [facility] Comment on above: Performed By: #### B LDCX2 #### [facility] [address] [place] [address] Dr. Luis Alberto Olivia MANUAL DIFF REQ NO Normal [facility] Comment on above: Performed By: #### B LDCX2 #### [facility] [address] [place] [address] Dr. Luis Alberto Olivia MCH (RBC) [Entitic mass] 31.5 pg Normal 25.9-34.0 [facility] Comment on above: Performed By: #### B LDCX2 #### [facility] [address] [place] [address] Dr. Luis Alberto Olivia MCHC (RBC) [Mass/Vol] 31.2 g/dL Normal 29.9-35.2 [facility] Comment on above: Performed By: #### B LDCX2 #### [facility] [address] [place] [address] Dr. Luis Alberto Olivia MCV (RBC) [Entitic vol] 100.7 fL Critically high 80.0-94.0 [facility] Comment on above: Performed By: #### B LDCX2 #### [facility] [address] [place] [address] Dr. Luis Alberto Olivia MONO # 0.6 103/ul Normal 0.3-0.8 [facility] Comment on above: Performed By: #### B LDCX2 #### [facility] [address] [place] [address] Dr. Luis Alberto Olivia Monocytes/100 WBC (Bld) 7.0 % Normal 1.7-12.0 [facility] Comment on above: Performed By: #### B LDCX2 #### [facility] [address] [place] [address] Dr. Luis Alberto Olivia NEUT # 7.0 103/ul Critically high 1.4-6.5 [facility] Comment on above: Performed By: #### B LDCX2 #### [facility] [address] [place] [address] Dr. Luis Alberto Olivia Neutrophils/100 WBC (Bld) 83.4 % Critically high 43.0-75.0 [facility] Comment on above: Performed By: #### B LDCX2 #### [facility] [address] [place] [address] Dr. Luis Alberto Olivia Platelet mean volume (Bld) [Entitic vol] 9.4 fL Critically low 9.5-13.5 [facility] Comment on above: Performed By: #### B [id number] #### [facility] [address] [place] [address] Dr. Luis Alberto Olivia PLT 225 103/ul Normal 150-450 [facility] Comment on above: Performed By: #### B [id number] #### [facility] [address] [place] [address] Dr. Luis Alberto Olivia RBC 2.67 106/ul Critically low 4.70-6.10 [facility] Comment on above: Performed By: #### B [id number] #### [facility] [address] [place] [address] Dr. Luis Alberto Olivia WBC 8.4 103/ul Normal 4.0-11.0 [facility] Comment on above: Performed By: #### B [id number] #### [facility] [address] [address] [address] Luis Alberto Olivia BASO # 0.0 103/ul Normal 0.0-0.1 [facility] Comment on above: Performed By: #### C BC #### [facility] [address] [address] [address] Luis Alberto Olivia Basophils/100 WBC (Bld) 0.3 % Normal 0.2-2.0 [facility] Comment on above: Performed By: #### C BC #### [facility] [address] [place] [address] Dr. Luis Alberto Olivia EO # 0.1 103/ul Normal 0.0-0.7 [facility] Comment on above: Performed By: #### C BC #### [facility] [address] [place] [address] Dr. Luis Alberto Olivia Eosinophils/100 WBC (Bld) 1.8 % Normal 0.9-7.0 [facility] Comment on above: Performed By: #### C BC #### [facility] [address] [place] [address] Dr. Luis Alberto Olivia Erythrocyte distribution width (RBC) [Ratio] 19.0 % Critically high 11.0-15.0 [facility] Comment on above: Performed By: #### C BC #### [facility] [address] [place] [address] Dr. Luis Alberto Olivia Hematocrit (Bld) [Volume fraction] 18.5 % Critically low 42.0-54.0 [facility] Comment on above: Performed By: #### C BC #### [facility] [address] [place] [address] Dr. Luis Alberto Olivia Hemoglobin (Bld) [Mass/Vol] 5.8 g/dL Critically low 14.0-18.0 [facility] Comment on above: Performed By: #### C BC #### [facility] [address] [place] [address] Dr. Luis Alberto Olivia IG # 0.04 10e3/ul Critically high 0.00-0.03 [facility] Comment on above: Performed By: #### C BC #### [facility] [address] [place] [address] Dr. Luis Alberto Olivia IG % 0.6 % Critically high 0.0-0.5 [facility] Comment on above: Performed By: #### C BC #### [facility] [address] [place] [address] Dr. Luis Alberto Olivia LYMPH # 0.8 103/ul Critically low 1.2-3.8 [facility] Comment on above: Performed By: #### C BC #### [facility] [address] [place] [address] Dr. Luis Alberto Olivia Lymphocytes/100 WBC (Bld) 13.4 % Critically low 20.5-60.0 [facility] Comment on above: Performed By: #### C BC #### [facility] [address] [place] [address] Dr. Luis Alberto Olivia MANUAL DIFF REQ NO Normal [facility] Comment on above: Performed By: #### C BC #### [facility] [address] [place] [address] Dr. Luis Alberto Olivia MCH (RBC) [Entitic mass] 31.7 pg Normal 25.9-34.0 [facility] Comment on above: Performed By: #### C BC #### [facility] [address] [place] [address] Dr. Luis Alberto Olivia MCHC (RBC) [Mass/Vol] 31.4 g/dL Normal 29.9-35.2 [facility] Comment on above: Performed By: #### C BC #### [facility] [address] [place] [address] Dr. Luis Alberto Olivia MCV (RBC) [Entitic vol] 101.1 fL Critically high 80.0-94.0 [facility] Comment on above: Performed By: #### C BC #### [facility] [address] [place] [address] Dr. Luis Alberto Olivia MONO # 0.6 103/ul Normal 0.3-0.8 [facility] Comment on above: Performed By: #### C BC #### [facility] [address] [place] [address] Dr. Luis Alberto Olivia Monocytes/100 WBC (Bld) 8.8 % Normal 1.7-12.0 [facility] Comment on above: Performed By: #### C BC #### [facility] [address] [place] [address] Dr. Luis Alberto Olivia NEUT # 4.7 103/ul Normal 1.4-6.5 [facility] Comment on above: Performed By: #### C BC #### [facility] [address] [place] [address] Dr. Luis Alberto Olivia Neutrophils/100 WBC (Bld) 75.1 % Critically high 43.0-75.0 [facility] Comment on above: Performed By: #### C BC #### [facility] [address] [place] [address] Dr. Luis Alberto Olivia Platelet mean volume (Bld) [Entitic vol] 9.5 fL Normal 9.5-13.5 [facility] Comment on above: Performed By: #### C BC #### [facility] [address] [place] [address] Dr. Luis Alberto Olivia PLT 203 103/ul Normal 150-450 [facility] Comment on above: Performed By: #### C BC #### [facility] [address] [place] [address] Dr. Luis Alberto Olivia RBC 1.83 106/ul Critically low 4.70-6.10 [facility] Comment on above: Performed By: #### C BC #### [facility] [address] [place] [address] Dr. Luis Alberto Olivia WBC 6.3 103/ul Normal 4.0-11.0 [facility] Comment on above: Performed By: #### C BC #### [facility] [address] [place] [address] Dr. Luis Alberto Olivia BASO # 0.0 103/ul Normal 0.0-0.1 [facility] Comment on above: Performed By: #### B [id number] #### [facility] [address] [place] [address] Dr. Luis Alberto Olivia Basophils/100 WBC (Bld) 0.3 % Normal 0.2-2.0 [facility] Comment on above: Performed By: #### B LDCX2 #### [facility] [address] [place] [address] Dr. Luis Alberto Olivia EO # 0.2 103/ul Normal 0.0-0.7 [facility] Comment on above: Performed By: #### B LDCX2 #### [facility] [address] [place] [address] Dr. Luis Alberto Olivia Eosinophils/100 WBC (Bld) 2.9 % Normal 0.9-7.0 [facility] Comment on above: Performed By: #### B LDCX2 #### [facility] [address] [place] [address] Dr. Luis Alberto Olivia Erythrocyte distribution width (RBC) [Ratio] 18.4 % Critically high 11.0-15.0 [facility] Comment on above: Performed By: #### B LDCX2 #### [facility] [address] [place] [address] Dr. Luis Alberto Olivia Hematocrit (Bld) [Volume fraction] 17.4 % Critically low 42.0-54.0 [facility] Comment on above: Performed By: #### B LDCX2 #### [facility] [address] [place] [address] Dr. Luis Alberto Olivia Hemoglobin (Bld) [Mass/Vol] 5.5 g/dL Critically low 14.0-18.0 [facility] Comment on above: Performed By: #### B LDCX2 #### [facility] [address] [place] [address] Dr. Luis Alberto Olivia IG # 0.05 10e3/ul Critically high 0.00-0.03 [facility] Comment on above: Performed By: #### B LDCX2 #### [facility] [address] [place] [address] Dr. Luis Alberto Olivia IG % 0.8 % Critically high 0.0-0.5 [facility] Comment on above: Performed By: #### B LDCX2 #### [facility] [address] [place] [address] Dr. Luis Alberto Olivia LYMPH # 0.8 103/ul Critically low 1.2-3.8 [facility] Comment on above: Performed By: #### B LDCX2 #### [facility] [address] [place] [address] Dr. Luis Alberto Olivia Lymphocytes/100 WBC (Bld) 12.8 % Critically low 20.5-60.0 [facility] Comment on above: Performed By: #### B LDCX2 #### [facility] [address] [place] [address] Dr. Luis Alberto Olivia MANUAL DIFF REQ NO Normal [facility] Comment on above: Performed By: #### B LDCX2 #### [facility] [address] [place] [address] Dr. Luis Alberto Olivia MCH (RBC) [Entitic mass] 32.5 pg Normal 25.9-34.0 [facility] Comment on above: Performed By: #### B LDCX2 #### [facility] [address] [place] [address] Dr. Luis Alberto Olivia MCHC (RBC) [Mass/Vol] 31.6 g/dL Normal 29.9-35.2 [facility] Comment on above: Performed By: #### B LDCX2 #### [facility] [address] [place] [address] Dr. Luis Alberto Olivia MCV (RBC) [Entitic vol] 103.0 fL Critically high 80.0-94.0 [facility] Comment on above: Performed By: #### B LDCX2 #### [facility] [address] [place] [address] Dr. Luis Alberto Olivia MONO # 0.5 103/ul Normal 0.3-0.8 [facility] Comment on above: Performed By: #### B LDCX2 #### [facility] [address] [place] [address] Dr. Luis Alberto Olivia Monocytes/100 WBC (Bld) 7.6 % Normal 1.7-12.0 [facility] Comment on above: Performed By: #### B LDCX2 #### [facility] [address] [place] [address] Dr. Luis Alberto Olivia NEUT # 5.0 103/ul Normal 1.4-6.5 [facility] Comment on above: Performed By: #### B LDCX2 #### [facility] [address] [place] [address] Dr. Luis Alberto Olivia Neutrophils/100 WBC (Bld) 75.6 % Critically high 43.0-75.0 [facility] Comment on above: Performed By: #### B LDCX2 #### [facility] [address] [place] [address] Dr. Luis Alberto Olivia Platelet mean volume (Bld) [Entitic vol] 9.5 fL Normal 9.5-13.5 [facility] Comment on above: Performed By: #### B LDCX2 #### [facility] [address] [place] [address] Dr. Luis Alberto Olivia PLT 224 103/ul Normal 150-450 [facility] Comment on above: Performed By: #### B LDCX2 #### [facility] [address] [place] [address] Dr. Luis Alberto Olivia RBC 1.69 106/ul Critically low 4.70-6.10 [facility] Comment on above: Performed By: #### B LDCX2 #### [facility] [address] [place] [address] Dr. Luis Alberto Olivia WBC 6.6 103/ul Normal 4.0-11.0 [facility] Comment on above: Performed By: #### B LDCX2 #### [facility] [address] [place] [address] Dr. Luis Alberto Olivia ER URINE PROFILEon 2 Bilirubin Ql (U) Negative Normal NEGATIVE [facility] Comment on above: Performed By: #### Nathaniel KEEN #### [facility] [address] [place] [address] Dr. Luis Alberto Olivia Clarity (U) CLOUDY Abnormal CLEAR [facility] Comment on above: Performed By: #### L IVER #### [facility] [address] [place] [address] Dr. Luis Alberto Olivia Color (U) YELLOW Normal YELLOW [facility] Comment on above: Performed By: #### L IVER #### [facility] [address] [place] [address] Dr. Luis Alberto Olivia ERUAHD A micrscopic examination will be performed if indicated. Normal [facility] Comment on above: Performed By: #### L IVER #### [facility] [address] [place] [address] Dr. Luis Alberto Olivia Glucose Ql (U) Negative Normal NEGATIVE [facility] Comment on above: Performed By: #### L IVER #### [facility] [address] [place] [address] Dr. Luis Alberto Olivia Hemoglobin Ql (U) Negative Normal NEGATIVE [facility] Comment on above: Performed By: #### L IVER #### [facility] [address] [place] [address] Dr. Luis Alberto Olivia Ketones Ql (U) Negative Normal NEGATIVE [facility] Comment on above: Performed By: #### L IVER #### [facility] [address] [place] [address] Dr. Luis Alberto Olivia LEUKOCYTES LARGE Abnormal NEGATIVE [facility] Comment on above: Performed By: #### L IVER #### [facility] [address] [place] [address] Dr. Luis Alberto Olivia Nitrite Ql (U) Negative Normal NEGATIVE [facility] Comment on above: Performed By: #### L IVER #### [facility] [address] [place] [address] Dr. Luis Alberto Olivia pH (U) 6.0 [pH] Normal 5-9 [facility] Comment on above: Performed By: #### L IVER #### [facility] [address] [place] [address] Dr. Luis Alberto Olivia SPEC GRAVITY 1.010 Normal 1.005-<=1.02 5 [facility] Comment on above: Performed By: #### L IVER #### [facility] [address] [place] [address] Dr. Luis Alberto Olivia UA PROTEIN Negative Normal NEGATIVE/ TRACE [facility] Comment on above: Performed By: #### L IVER #### [facility] [address] [place] [address] Dr. Luis Alberto Olivia UR MICRO IND INDICATED Normal [facility] Comment on above: Performed By: #### L IVER #### [facility] [address] [place] [address] Dr. Luis Alberto Olivia Urobilinogen Qn (U) 0.2 {Srini'U}/dL Normal 0.2 - 1. 0 [facility] Comment on above: Performed By: #### L IVER #### [facility] [address] [place] [address] Dr. Luis Alberto Olivia H PYLORI TISSUEon 12-21-2021 H PYL TISSUE, UREASE Negative Normal NEGATIVE [facility] Comment on above: Performed By: #### U RCX #### [facility] [address] [place] [address] Dr. Luis Alberto Olivia NM GI BLEEDon 12-21-2021 NM GI BLEED EXAMINATION: NM GI BLEEDING STUDY HISTORY: Acute gastrointestinal hemorrhage. TECHNIQUE: Following the intravenous administration of autologous red cells labeled with 25 mCi Tc-99m PYP, sequential abdominal images were obtained through 60 minutes. COMPARISON: No relevant comparison available. FINDINGS: There is no extravasation of labeled red blood cells. There is expected tracer activity in the blood pool. There is some expected excreted tracer activity in the urinary collecting systems. IMPRESSION: No active gastrointestinal bleeding. Electronically authenticated by: MeterHeroRYAN FREITAS Date: 2021-12-21 08:50 Normal [facility] PRBC LEUKOREDUCEDon 12-22-19 ABO and Rh group Nom (Bld) Cross Match Result Compatible Unit Blood Type O Pos Unit Number [id number] Status Information Transfused Product ID Red Blood Cells Product Code [id number] Cross Match Result Compatible Unit Blood Type O Pos Unit Number [id number] Status Information Transfused Product ID Red Blood Cells Product Code [id number] Normal [facility] Comment on above: Performed By: #### P RBC #### [facility] [address] [address] [address] Luis Alberto Olivia PROF 14(COMP METB)on 022 Albumin [Mass/Vol] 2.6 g/dL Critically low 3.4-5.0 [facility] Comment on above: Performed By: #### B LDCX2 #### [facility] [address] [place] [address] Dr. Luis Alberto Olivia Albumin/Globulin [Mass ratio] 1.0 {ratio} Normal [facility] Comment on above: Performed By: #### B LDCX2 #### [facility] [address] [place] [address] Dr. Luis Alberto Olivia ALP [Catalytic activity/Vol] 37 U/L Critically low 46-116 [facility] Comment on above: Performed By: #### B LDCX2 #### [facility] [address] [place] [address] Dr. Luis Alberto Olivia ALT [Catalytic activity/Vol] 16 U/L Normal 16-63 [facility] Comment on above: Performed By: #### B LDCX2 #### [facility] [address] [place] [address] Dr. Luis Alberto Olivia Anion gap [Moles/Vol] 10.8 mmol/L Normal [facility] Comment on above: Performed By: #### B LDCX2 #### [facility] [address] [place] [address] Dr. Luis Alberto Olivia AST [Catalytic activity/Vol] 18 U/L Normal 15-37 [facility] Comment on above: Performed By: #### B LDCX2 #### [facility] [address] [place] [address] Dr. Luis Alberto Olivia Bilirubin [Mass/Vol] 0.5 mg/dL Normal 0.2-1.0 [facility] Comment on above: Performed By: #### B LDCX2 #### [facility] [address] [place] [address] Dr. Luis Alberto Olivia Calcium [Mass/Vol] 7.8 mg/dL Critically low 8.5-10.1 [facility] Comment on above: Performed By: #### B LDCX2 #### [facility] [address] [place] [address] Dr. Luis Alberto Olivia Chloride [Moles/Vol] 103 mmol/L Normal 98-107 [facility] Comment on above: Performed By: #### B LDCX2 #### [facility] [address] [place] [address] Dr. Luis Alberto Olivia CO2 [Moles/Vol] 25.6 mmol/L Normal 21.0-32.0 [facility] Comment on above: Performed By: #### B LDCX2 #### [facility] [address] [place] [address] Dr. Luis Alberto Olivia Creatinine [Mass/Vol] 1.33 mg/dL Critically high 0.70-1.30 [facility] Comment on above: Performed By: #### B LDCX2 #### [facility] [address] [place] [address] Dr. Luis Alberto Olivia EGFR-AF SAO TOMEAN >60 Normal >=60 [facility] Comment on above: Performed By: #### B LDCX2 #### [facility] [address] [place] [address] Dr. Luis Alberto Olivia EGFR-NON AF SAO TOMEAN 52 mL/min/1.73m2 Critically low >=60 [facility] Comment on above: Performed By: #### B LDCX2 #### [facility] [address] [place] [address] Dr. Luis Alberto Olivia Globulin (S) [Mass/Vol] 2.7 g/dL Normal [facility] Comment on above: Performed By: #### B LDCX2 #### [facility] [address] [place] [address] Dr. Luis Alberto Olivia Glucose [Mass/Vol] 109 mg/dL Critically high 74-106 [facility] Comment on above: Performed By: #### B LDCX2 #### [facility] [address] [place] [address] Dr. Luis Alberto Olivia Potassium [Moles/Vol] 3.4 mmol/L Critically low 3.5-5.1 [facility] Comment on above: Performed By: #### B LDCX2 #### [facility] [address] [place] [address] Dr. Luis Alberto Olivia Protein [Mass/Vol] 5.3 g/dL Critically low 6.4-8.2 [facility] Comment on above: Performed By: #### B LDCX2 #### [facility] [address] [place] [address] Dr. Luis Alberto Olivia Sodium [Moles/Vol] 136 mmol/L Normal 136-145 [facility] Comment on above: Performed By: #### B LDCX2 #### [facility] [address] [place] [address] Dr. Luis Alberto Olivia Urea nitrogen [Mass/Vol] 24.0 mg/dL Critically high 7.0-18.0 [facility] Comment on above: Performed By: #### B LDCX2 #### [facility] [address] [place] [address] Dr. Luis Alberto Olivia Urea nitrogen/Creatinine [Mass ratio] 18.0 mg/mg [facility] Comment on above: Performed By: #### B LDCX2 #### [facility] [address] [place] [address] Dr. Luis Alberto Olivia Albumin [Mass/Vol] 2.7 g/dL Critically low 3.4-5.0 [facility] Comment on above: Performed By: #### U RCX #### [facility] [address] [place] [address] Dr. Luis Alberto Olivia Albumin/Globulin [Mass ratio] 1.0 {ratio} Normal [facility] Comment on above: Performed By: #### U RCX #### [facility] [address] [place] [address] Dr. Luis Alberto Olivia ALP [Catalytic activity/Vol] 40 U/L Critically low 46-116 [facility] Comment on above: Performed By: #### U RCX #### [facility] [address] [place] [address] Dr. Luis Alberto Olivia ALT [Catalytic activity/Vol] 18 U/L Normal 16-63 [facility] Comment on above: Performed By: #### U RCX #### [facility] [address] [place] [address] Dr. Luis Alberto Olivia Anion gap [Moles/Vol] 9.7 mmol/L Normal [facility] Comment on above: Performed By: #### U RCX #### [facility] [address] [address] [address] Luis Alberto Olivia AST [Catalytic activity/Vol] 21 U/L Normal 15-37 [facility] Comment on above: Performed By: #### U RCX #### [facility] [address] [address] [address] Luis Alberto Olivia Bilirubin [Mass/Vol] 0.3 mg/dL Normal 0.2-1.0 [facility] Comment on above: Performed By: #### U RCX #### [facility] [address] [place] [address] Dr. Luis Alberto Olivia Calcium [Mass/Vol] 7.7 mg/dL Critically low 8.5-10.1 [facility] Comment on above: Performed By: #### U RCX #### [facility] [address] [place] [address] Dr. Luis Alberto Olivia Chloride [Moles/Vol] 102 mmol/L Normal 98-107 [facility] Comment on above: Performed By: #### U RCX #### [facility] [address] [place] [address] Dr. Luis Alberto Olivia CO2 [Moles/Vol] 26.8 mmol/L Normal 21.0-32.0 [facility] Comment on above: Performed By: #### U RCX #### [facility] [address] [place] [address] Dr. Luis Alberto Olivia Creatinine [Mass/Vol] 1.35 mg/dL Critically high 0.70-1.30 [facility] Comment on above: Performed By: #### U RCX #### [facility] [address] [place] [address] Dr. Luis Alberto Olivia EGFR-AF SAO TOMEAN >60 Normal >=60 [facility] Comment on above: Performed By: #### U RCX #### [facility] [address] [address] [address] Luis Alberto Olivia EGFR-NON AF SAO TOMEAN 52 mL/min/1.73m2 Critically low >=60 [facility] Comment on above: Performed By: #### U RCX #### [facility] [address] [address] [address] Luis Alberto Olivia Globulin (S) [Mass/Vol] 2.7 g/dL Normal [facility] Comment on above: Performed By: #### U RCX #### [facility] [address] [address] [address] Luis Alberto Olivia Glucose [Mass/Vol] 106 mg/dL Normal 74-106 [facility] Comment on above: Performed By: #### U RCX #### [facility] [address] [address] [address] Luis Alberto Olivia Potassium [Moles/Vol] 3.5 mmol/L Normal 3.5-5.1 [facility] Comment on above: Performed By: #### U RCX #### [facility] [address] [address] [address] Luis Alberto Olivia Protein [Mass/Vol] 5.4 g/dL Critically low 6.4-8.2 [facility] Comment on above: Performed By: #### U RCX #### [facility] [address] [address] [address] Luis Alberto Olivia Sodium [Moles/Vol] 135 mmol/L Critically low 136-145 [facility] Comment on above: Performed By: #### U RCX #### [facility] [address] [address] [address] Luis Alberto Olivia Urea nitrogen [Mass/Vol] 26.0 mg/dL Critically high 7.0-18.0 [facility] Comment on above: Performed By: #### U RCX #### [facility] [address] [address] [address] Luis Alberto Olivia Urea nitrogen/Creatinine [Mass ratio] 19.3 mg/mg Normal [facility] Comment on above: Performed By: #### U RCX #### [facility] [address] [place] [address] Dr. Luis Alberto Olivia URINE MICROSCOPIC ONLYon BACTERIA SMALL Abnormal NONE SEEN [facility] Comment on above: Performed By: #### L IVER #### [facility] [address] [place] [address] Dr. Luis Alberto Olivia Bacteria identified Cx Nom (U) INDICATED Normal [facility] Comment on above: Performed By: #### L IVER #### [facility] [address] [place] [address] Dr. Luis Alberto Olivia CAST NONE SEEN Normal NONE SEEN [facility] Comment on above: Performed By: #### L IVER #### [facility] [address] [place] [address] Dr. Luis Alberto Olivia Crystals LM Nom (Urine sed) NONE SEEN Normal NONE SEEN [facility] Comment on above: Performed By: #### L IVER #### [facility] [address] [place] [address] Dr. Luis Alberto Olivia Epithelial cells LM Ql (Urine sed) RARE Normal NONE SEEN /RARE [facility] Comment on above: Performed By: #### L IVER #### [facility] [address] [place] [address] Dr. Luis Alberto Olivia MUCOUS NONE SEEN Normal NONE SEEN [facility] Comment on above: Performed By: #### L IVER #### [facility] [address] [place] [address] Dr. Luis Alberto Olivia RBC 0-2 Normal 0-2 [facility] Comment on above: Performed By: #### L IVER #### [facility] [address] [place] [address] Dr. Luis Alberto Olivia WBC 10-20 Abnormal NONE SEEN [facility] Comment on above: Performed By: #### L IVER #### [facility] [address] [place] [address] Dr. Luis Alberto Olivia ABO RH RETYPEon 12-20-2021 ABO and Rh group Nom (Bld) DONE Normal [facility] Comment on above: Performed By: #### R ETYPE #### [facility] [address] [place] [address] Dr. Luis Alberto Olivia BNPon 12-20-2021 Natriuretic peptide B (Bld) [Mass/Vol] 1641.0 pg/mL Normal <=1,800.0 [facility] Comment on above: Performed By: #### R ETYPE #### [facility] [address] [place] [address] Dr. Luis Alberto Olivia CARDIAC ANGELI ADMITon 022 CK [Catalytic activity/Vol] 66 U/L Normal 39-308 [facility] Comment on above: Performed By: #### R ETYPE #### [facility] [address] [place] [address] Dr. Luis Alberto Olivia CK.MB [Mass/Vol] 1.06 ng/mL Normal <=3.60 [facility] Comment on above: Performed By: #### R ETYPE #### [facility] [address] [place] [address] Dr. Luis Alberto Olivia HSTROP 17.6 pg/mL Normal 4.0-76.1 [facility] Comment on above: Result Comment: CUT- OFF POINTS HAVE BEEN ESTABLISHED BASED ON THE FOURTH UNIVERSAL DEFINITIONS OF MYOCARDIAL INFARCTION. THE UPPER REFERENCE LIMIT (URL) OF TROPONIN, DEFINED THE 99TH PERCENTILE OF cTnI DISTRIBUTION IN A REFERENCE POPULATION, HAS BEEN CONFIRMED THE DECISION THRESHOLD FOR MT DIAGNOSIS. Performed By: #### R ETYPE #### [facility] [address] [place] [address] Dr. Luis Alberto Olivia YADIRA 91 ng/mL Normal 16-96 [facility] Comment on above: Performed By: #### R ETYPE #### [facility] [address] [place] [address] Dr. Luis Alberto Olivia CBC AUTO DIFFon 12-20-2021 BASO # 0.0 103/ul Normal 0.0-0.1 [facility] Comment on above: Performed By: #### L IVER #### [facility] [address] [place] [address] Dr. Luis Alberto Olivia Basophils/100 WBC (Bld) 0.3 % Normal 0.2-2.0 [facility] Comment on above: Performed By: #### L IVER #### [facility] [address] [place] [address] Dr. Luis Alberto Olviia EO # 0.1 103/ul Normal 0.0-0.7 [facility] Comment on above: Performed By: #### L IVER #### [facility] [address] [place] [address] Dr. Luis Alberto Olivia Eosinophils/100 WBC (Bld) 1.3 % Normal 0.9-7.0 [facility] Comment on above: Performed By: #### L IVER #### [facility] [address] [place] [address] Dr. Luis Alberto Olivia Erythrocyte distribution width (RBC) [Ratio] 18.7 % Critically high 11.0-15.0 [facility] Comment on above: Performed By: #### L IVER #### [facility] [address] [place] [address] Dr. Luis Alberto Olivia Hematocrit (Bld) [Volume fraction] 17.5 % Critically low 42.0-54.0 [facility] Comment on above: Performed By: #### L IVER #### [facility] [address] [place] [address] Dr. Luis Alberto Olivia Hemoglobin (Bld) [Mass/Vol] 5.3 g/dL Critically low 14.0-18.0 [facility] Comment on above: Performed By: #### L IVER #### [facility] [address] [place] [address] Dr. Luis Alberto Olivia IG # 0.06 10e3/ul Critically high 0.00-0.03 [facility] Comment on above: Performed By: #### L IVER #### [facility] [address] [place] [address] Dr. Luis Alberto Olivia IG % 0.9 % Critically high 0.0-0.5 [facility] Comment on above: Performed By: #### L IVER #### [facility] [address] [place] [address] Dr. Luis Alberto Olivia LYMPH # 0.7 103/ul Critically low 1.2-3.8 [facility] Comment on above: Performed By: #### L IVER #### [facility] [address] [place] [address] Dr. Luis Alberto Olivia Lymphocytes/100 WBC (Bld) 10.1 % Critically low 20.5-60.0 [facility] Comment on above: Performed By: #### L IVER #### [facility] [address] [place] [address] Dr. Luis Alberto Olivia MANUAL DIFF REQ NO Normal [facility] Comment on above: Performed By: #### L IVER #### [facility] [address] [place] [address] Dr. Luis Alberto Olivia MCH (RBC) [Entitic mass] 31.5 pg Normal 25.9-34.0 [facility] Comment on above: Performed By: #### L IVER #### [facility] [address] [address] [address] Luis Alberto Olivia MCHC (RBC) [Mass/Vol] 30.3 g/dL Normal 29.9-35.2 [facility] Comment on above: Performed By: #### L IVER #### [facility] [address] [place] [address] Dr. Luis Alberto Olivia MCV (RBC) [Entitic vol] 104.2 fL Critically high 80.0-94.0 [facility] Comment on above: Performed By: #### L IVER #### [facility] [address] [place] [address] Dr. Luis Alberto Olivia MONO # 0.7 103/ul Normal 0.3-0.8 [facility] Comment on above: Performed By: #### L IVER #### [facility] [address] [place] [address] Dr. Luis Alberto Olivia Monocytes/100 WBC (Bld) 9.4 % Normal 1.7-12.0 [facility] Comment on above: Performed By: #### L IVER #### [facility] [address] [place], [place] [id number] Dr. Luis Alberto Olivia NEUT # 5.5 103/ul Normal 1.4-6.5 [facility] Comment on above: Performed By: #### L IVER #### [facility] [address] [place] [address] Dr. Luis Alberto Olivia Neutrophils/100 WBC (Bld) 78.0 % Critically high 43.0-75.0 [facility] Comment on above: Performed By: #### L IVER #### [facility] [address] [place] [address] Dr. Luis Alberto Olivia Platelet mean volume (Bld) [Entitic vol] 9.5 fL Normal 9.5-13.5 [facility] Comment on above: Performed By: #### L IVER #### [facility] [address] [place] [place] [address] Dr. Luis Alberto Olivia PLT 245 103/ul Normal 150-450 [facility] Comment on above: Performed By: #### L IVER #### [facility] [address] [place] [address] Dr. Luis Alberto Olivia RBC 1.68 106/ul Critically low 4.70-6.10 [facility] Comment on above: Performed By: #### L IVER #### [facility] [address] [place] [address] Dr. Luis Alberto Olivia WBC 7.0 103/ul Normal 4.0-11.0 [facility] Comment on above: Performed By: #### L IVER #### [facility] [address] [place] [address] Dr. Luis Alberto Olivia CULTURE BLOODon 12-20-2021 Microscopic examination of blood, culture Culture Observations: NO GROWTH AT 5 DAYS. Normal [facility] Comment on above: Performed By: #### B [id number] #### [facility] [address] [place] [address] Dr. Luis Alberto Olivia Microscopic examination of blood, culture Culture Observations: NO GROWTH AT 5 DAYS. Normal [facility] Comment on above: Performed By: #### B [id number] #### [facility] [address] [place] [address] Dr. Luis Alberto Olivia Covid-19 PCR (CVDTB)on 12-01 SARS-CoV-2 (COVID-19) RNA BOAZ+probe Ql (Unsp spec) Not detected Normal NOT DETECTED [facility] Comment on above: Result Comment: When diagnostic testing is negative, the possibility of a false negative should be considered in the context of a patient's recent exposures and the presence of clinical signs and symptoms consistent with SARS-CoV-2. This test is not yet approved or cleared by the [place] FDA. When there are no FDA-approved or cleared tests available, and other criteria are met, FDA can make tests available under an emergency access mechanism called an Emergency Use Authorization (EUA). The EUA for this test is supported by the [place] of Health and Human Service's declaration that circumstances exist to justify the emergency use of in vitro diagnostics for the detection and/or diagnosis of the virus that causes COVID-19. This EUA will remain in effect for the duration of the COVID-19 declaration justifying emergency of IVDs, unless it is terminated or revoked by the FDA (after which the test may no longer be used). Performed By: #### R ETYPE #### [facility] [address] [place] [address] Dr. Luis Alberto Olivia FERRITINon 12-20-2021 Ferritin [Mass/Vol] 46.0 ng/mL Normal 26.0-388.0 [facility] Comment on above: Performed By: #### R ETYPE #### [facility] [address] [place] [address] Dr. Luis Alberto Olivia IRONon 12-20-2021 Iron [Mass/Vol] 88.0 ug/dL Normal 65.0-175.0 [facility] Comment on above: Performed By: #### T RANSFR #### [facility] [address] [place] [address] Dr. Luis Alberto Olivia IRON AND TIBCon 12-20-2021 % SATURATION 22.4 % Normal [facility] Comment on above: Performed By: #### T RANSFR #### [facility] [address] [place] [address] Dr. Luis Alberto Olivia TIBC DIRECT 393.0 ug/dL Normal 250.0-450.0 [facility] Comment on above: Performed By: #### T RANSFR #### [facility] [address] [place] [address] Dr. Luis Alberto Olivia LACTATE/LACTIC ACIDon 2021 Lactate [Moles/Vol] 0.9 mmol/L Normal 0.4-1.9 [facility] Comment on above: Performed By: #### T RANSFR #### [facility] [address] [place] [address] Dr. Luis Alberto Olivia Lactate [Moles/Vol] 2.0 mmol/L Critically high 0.4-1.9 [facility] Comment on above: Performed By: #### B [id number] #### [facility] [address] [place] [address] Dr. Luis Alberto Olivia LIVER PROFILEon 12-20-2021 Albumin [Mass/Vol] 2.7 g/dL Critically low 3.4-5.0 [facility] Comment on above: Performed By: #### L IVER #### [facility] [address] [place] [address] Dr. Luis Alberto Olivia Albumin/Globulin [Mass ratio] 0.9 {ratio} Normal [facility] Comment on above: Performed By: #### L IVER #### [facility] [address] [place] [address] Dr. Luis Alberto Olivia ALP [Catalytic activity/Vol] 42 U/L Critically low 46-116 [facility] Comment on above: Performed By: #### L IVER #### [facility] [address] [place] [address] Dr. Luis Alberto Olivia ALT [Catalytic activity/Vol] 19 U/L Normal 16-63 [facility] Comment on above: Performed By: #### L IVER #### [facility] [address] [place] [address] Dr. Luis Alberto Olivia AST [Catalytic activity/Vol] 26 U/L Normal 15-37 [facility] Comment on above: Performed By: #### L IVER #### [facility] [address] [address] [address] Luis Alberto Olivia BILI, CONJUGATED 0.1 mg/dL Normal 0.0-0.2 [facility] Comment on above: Performed By: #### L IVER #### [facility] [address] [place] [address] Dr. Luis Alberto Olivia Bilirubin [Mass/Vol] 0.4 mg/dL Normal 0.2-1.0 [facility] Comment on above: Performed By: #### L IVER #### [facility] [address] [place] [address] Dr. Luis Alberto Olivia Globulin (S) [Mass/Vol] 3.1 g/dL Normal [facility] Comment on above: Performed By: #### L IVER #### [facility] [address] [place] [address] Dr. Luis Alberto Olivia Protein [Mass/Vol] 5.8 g/dL Critically low 6.4-8.2 [facility] Comment on above: Performed By: #### L IVER #### [facility] [address] [place] [address] Dr. Luis Alberto Olivia OCC BLD IMMUNO SCREENon 12-01 OCCULT BLOOD Positive Abnormal NEGATIVE [facility] Comment on above: Performed By: #### B [id number] #### [facility] [address] [place] [address] Dr. Luis Alberto Olivia PROF CHEM 8 (BAS METB)on Anion gap [Moles/Vol] 15.0 mmol/L Normal [facility] Comment on above: Performed By: #### R ETYPE #### [facility] [address] [place] [address] Dr. Luis Alberto Olivia Calcium [Mass/Vol] 8.1 mg/dL Critically low 8.5-10.1 [facility] Comment on above: Performed By: #### R ETYPE #### [facility] [address] [place] [address] Dr. Luis Alberto Olivia Chloride [Moles/Vol] 101 mmol/L Normal 98-107 [facility] Comment on above: Performed By: #### R ETYPE #### [facility] [address] [address] [address] Luis Alberto Olivia CO2 [Moles/Vol] 23.6 mmol/L Normal 21.0-32.0 [facility] Comment on above: Performed By: #### R ETYPE #### [facility] [address] [address] [address] Luis Alberto Olivia Creatinine [Mass/Vol] 1.38 mg/dL Critically high 0.70-1.30 [facility] Comment on above: Performed By: #### R ETYPE #### [facility] [address] [address] [address] Luis Alberto Olivia EGFR-AF SAO TOMEAN >60 Normal >=60 [facility] Comment on above: Performed By: #### R ETYPE #### [facility] [address] [address] [address] Luis Alberto Olivia EGFR-NON AF SAO TOMEAN 50 mL/min/1.73m2 Critically low >=60 [facility] Comment on above: Performed By: #### R ETYPE #### [facility] [address] [address] [address] Luis Alberto Olivia Glucose [Mass/Vol] 106 mg/dL Normal 74-106 [facility] Comment on above: Performed By: #### R ETYPE #### [facility] [address] [address] [address] Luis Alberto Olivia Potassium [Moles/Vol] 3.6 mmol/L Normal 3.5-5.1 [facility] Comment on above: Performed By: #### R ETYPE #### [facility] [address] [address] [address] Luis Alberto Olivia Sodium [Moles/Vol] 136 mmol/L Normal 136-145 [facility] Comment on above: Performed By: #### R ETYPE #### [facility] [address] [address] [address] Luis Alberto Olivia Urea nitrogen [Mass/Vol] 26.0 mg/dL Critically high 7.0-18.0 [facility] Comment on above: Performed By: #### R ETYPE #### [facility] [address] [address] [address] Luis Alberto Olivia Urea nitrogen/Creatinine [Mass ratio] 18.8 mg/mg Normal [facility] Comment on above: Performed By: #### R ETYPE #### [facility] [address] [place] [address] Dr. Luis Alberto Olivia PROTIMEon 12-20-2021 INR Coag (PPP) [Relative time] 1.08 {INR} Normal [facility] Comment on above: Performed By: #### U RCX #### [facility] [address] [place] [address] Dr. Luis Alberto Olivia INR GUIDELINES SEE BELOW Normal [facility] Comment on above: Result Comment: KT RED INR: 2.0 - 3.0 CONDITIONS NOT LISTED BELOW 2.5 - 3.5 FOR PROSTHETIC HEART VALVE REPLACEMENT 2.5 - 3.5 RECURRENT THROMBOSIS Performed By: #### U RCX #### [facility] [address] [place] [address] Dr. Luis Alberto Olivia PT Coag (PPP) [Time] 11.6 s Normal 9.0-11.6 [facility] Comment on above: Performed By: #### U RCX #### [facility] [address] [place] [address] Dr. Luis Alberto Olivia PTTon 12-20-2021 aPTT Coag (Bld) [Time] 24.8 s Normal 22.3-36.2 [facility] Comment on above: Performed By: #### U RCX #### [facility] [address] [place] [address] Dr. Luis Alberto Olivia TYPE AND SCREENon 12-20-2021 TYPE AND SCREEN Negative Normal [facility] Comment on above: Performed By: #### T NS #### [facility] [address] [place] [address] Dr. Luis Alberto Olivia VIT B12 AND FOLATEon 022 Cobalamin (Vitamin B12) [Mass/Vol] 450.0 pg/mL Normal 193.0-986.0 [facility] Comment on above: Performed By: #### T RANSFR #### [facility] [address] [place], [place] [address] Dr. Luis Alberto Olivia FOLATE 22.90 ng/mL Normal 8.60-58.90 [facility] Comment on above: Performed By: #### T RANSFR #### [facility] [address] [place], [place] [address] Dr. Luis Alberto Olivia XR CHEST 1 Von 12-20-2021 XR CHEST 1 V EXAM: XR CHEST 1 V REASON FOR EXAM: Male, 76 years, SHORTNESS OF BREATH. TECHNIQUE: A single AP view of the chest is performed. COMPARISON: 07/18/2019. FINDINGS: Cardiac monitoring leads project over the chest. The lungs are expanded and clear. Normal pleura. Normal size heart. Normal mediastinum and katrin. Normal visualized pulmonary arteries. Normal visualized aortic arch and descending thoracic aorta. Normal visualized thoracic spine. Postoperative changes are seen to both shoulders. There is no demonstrated abnormality of the visualized soft tissue structures of the upper abdomen. IMPRESSION: No acute process in the chest. Electronically authenticated by: ESVIN ESTEVES Date: 2021-12-20 16:56 Normal [facility] CHEMISTRYOrdered By: SYSTEM SYSTEM on 11-05-2021 Albumin [Mass/Vol] 3.8 g/dL Normal 3.3 - 5.0 gm/dL [facility] Albumin/Globulin [Mass ratio] 1.1 {ratio} Normal 1.1 - 2.2 [facility] ALP [Catalytic activity/Vol] 49 [iU]/d Normal 21 - 98 Int._Unit/L [facility] ALT No additional P-5'-P [Catalytic activity/Vol] 15 [iU]/d Normal 6 - 46 Int._Unit/L [facility] Anion gap [Moles/Vol] 12 mmol/L Normal 6 - 16 mEq/L [facility] AST [Catalytic activity/Vol] 22 [iU]/d Normal 5 - 43 Int._Unit/L [facility] Bilirubin [Mass/Vol] 0.8 mg/dL Normal 0.0 - 1 .1 mg/dL [facility] Calcium [Mass/Vol] 9.9 mg/dL Normal 8.9 - 11. 1 mg/dL [facility] Chloride [Moles/Vol] 102 mmol/L Normal 101 - 1 11 mmol/L [facility] CO2 [Moles/Vol] 28 mmol/L Normal 21 - 31 mmol/L [facility] Cobalamin (Vitamin B12) [Mass/Vol] 356 pg/mL Normal 50 - 1500 pg/mL [facility] Creatinine [Mass/Vol] 1.1 mg/dL Normal 0.5 - 1.3 mg/dL [facility] Ferritin [Mass/Vol] 50 ng/mL Normal 24 - 336 ng/mL [facility] Folate [Mass/Vol] 13.4 ng/mL Normal >=6.7ng/mL [facility] Re misol GFR/1.73 sq M.predicted among blacks MDRD (S/P/Bld) [Vol rate/Area] mL/min/1.73 m2 Normal >=59mL/min/1 .73 m2 [facility] Chem S GFR/1.73 sq M.predicted among non-blacks MDRD (S/P/Bld) [Vol rate/Area] mL/min/1.73 m2 Normal >=59mL/min/1 .73 m2 [facility] Chem S Globulin (S) [Mass/Vol] 3.5 g/dL Normal 1.4 - 4.0 gm/dL [facility] Glucose [Mass/Vol] 96 mg/dL Normal 55 - 199 mg/dL [facility] Iron [Mass/Vol] 45 ug/dL Normal 35 - 153 mcg/dL [facility] Iron binding capacity [Mass/Vol] 445 ug/dL High 250 - 400 mcg/dL [facility] Iron saturation [Mass fraction] 10 % Low 20 - 50 % [facility] LDH [Catalytic activity/Vol] 115 [iU]/d Normal 93 - 218 Int._Unit/L [facility] Potassium [Moles/Vol] 4.0 mmol/L Normal 3.5 - 5.3 mmol/L [facility] Protein [Mass/Vol] 7.3 g/dL Normal 6.0 - 7.8 gm/dL [facility] Sodium [Moles/Vol] 138 mmol/L Normal 135 - 145 mmol/L [facility] Transferrin [Mass/Vol] 318 mg/dL Normal 200 - 370 mg/dL [facility] Urea nitrogen [Mass/Vol] 20 mg/dL Normal 5 - 21 mg/dL [facility] Urea nitrogen/Creatinine [Mass ratio] 18 mg/mg Normal 10 - 20 [facility] HEMATOLOGYOrdered By: SYSTEM SYSTEM on 11-05-2021 Basophils/100 WBC (Bld) 0.8 % Normal 0.0 - 2.0 % [facility] Basophils/Leukocytes Auto (Bld) [Pure # fraction] 0.0 E9/L Normal 0.0 - 0.2 E9/L [facility] Eosinophils/100 WBC (Bld) 2.6 % Normal 0.0 - 8.0 % [facility] Eosinophils/Leukocyte s Auto (Bld) [Pure # fraction] 0.1 E9/L Normal 0.0 - 0.5 E9/L [facility] Lymphocytes/100 WBC (Bld) 15.4 % Normal 14.0 - 50.0 % [facility] Lymphocytes/Leukocyte s Auto (Bld) [Pure # fraction] 0.9 E9/L Low 1.0 - 4.0 E9/L [facility] Monocytes/100 WBC (Bld) 9.1 % Normal 4.0 - 14.0 % [facility] Monocytes/Leukocytes Auto (Bld) [Pure # fraction] 0.5 E9/L Normal 0.2 - 1.0 E9/L [facility] Neutrophils/100 WBC (Bld) 72.1 % Normal 36.0 - 75.0 % [facility] Neutrophils/Leukocyte s Auto (Bld) [Pure # fraction] 4.1 E9/L Normal 2.0 - 7.5 E9/L [facility] HEMATOLOGYOrdered By: Cindy Valenzuela on 11-05-2021 Erythrocyte distribution width (RBC) [Ratio] 17.6 % High 10.9 - 14.2 % [facility] Hematocrit (Bld) [Volume fraction] 36.7 % Low 37.7 - 49.0 % [facility] Hemoglobin (Bld) [Mass/Vol] 11.6 g/dL Low 13.5 - 17.5 gm/dL [facility] MCH (RBC) [Entitic mass] 28.4 pg Normal 27.0 - 34.0 pg [facility] MCHC (RBC) [Mass/Vol] 31.7 g/dL Normal 31.4 - 36.0 gm/dL [facility] MCV (RBC) [Entitic vol] 89.4 fL Normal 80.0 - 100.0 fL [facility] Platelet mean volume (Bld) [Entitic vol] 8.1 fL Normal 6.4 - 10.8 fL [facility] Platelets (Bld) [#/Vol] 307.0 E9/L Normal 150.0 - 500.0 E9/L [facility] RBC (Bld) [#/Vol] 4.1 E12/L Low 4.3 - 5.9 E12/L [facility] Sed Rate Automated 22 mm/h High 0 - 19 mm/hr [facility] WBC corrected for nucl RBC Auto (Bld) [#/Vol] 5.7 E9/L Normal 4.0 - 11.0 E9/L [facility] CULTURE URINEon 11-01-2021 CULTURE URINE Isolate 1 Klebsiella pneumoniae 30,000 cfu/ml of ORGANISM 1 Klebsiella pneumoniae ANTIBIOTIC M.I.C RX STATUS Ampicillin 16 R F Ampicillin/Sulbactam 4 S F Piperacillin/Tazobact am 8 S F Cefazolin <=4 S F Ceftazidime <=1 S F Ceftriaxone <=1 S F Ertapenem <=0.5 S F Imipenem <=0.25 S F Amikacin <=2 S F Gentamicin <=1 S F Tobramycin <=1 S F Ciprofloxacin <=0.25 S F Levofloxacin <=0.12 S F Nitrofurantoin <=16 S F Trimethoprim/Sulfamet hoxazole <=20 S F Normal [facility] Comment on above: Performed By: #### U RCX #### [facility] [address] [place] [address] Dr. Luis Alberto Olivia CBC AUTO DIFFon 10-30-2021 BASO # 0.0 103/ul Normal 0.0-0.1 [facility] Comment on above: Performed By: #### T RANSFR #### [facility] [address] [place], [place] [address] Dr. Luis Alberto Olivia Basophils/100 WBC (Bld) 0.5 % Normal 0.2-2.0 [facility] Comment on above: Performed By: #### T RANSFR #### [facility] [address] [place] [address] Dr. Luis Ablerto Olivia EO # 0.2 103/ul Normal 0.0-0.7 [facility] Comment on above: Performed By: #### T RANSFR #### [facility] [address] [place] [address] Dr. Luis Alberto Olivia Eosinophils/100 WBC (Bld) 2.8 % Normal 0.9-7.0 [facility] Comment on above: Performed By: #### T RANSFR #### [facility] [address] [place] [address] Dr. Luis Alberto Olivia Erythrocyte distribution width (RBC) [Ratio] 16.5 % Critically high 11.0-15.0 [facility] Comment on above: Performed By: #### T RANSFR #### [facility] [address] [place] [address] Dr. Luis Alberto Olivia Hematocrit (Bld) [Volume fraction] 36.5 % Critically low 42.0-54.0 [facility] Comment on above: Performed By: #### T RANSFR #### [facility] [address] [place] [address] Dr. Luis Alberto Olivia Hemoglobin (Bld) [Mass/Vol] 11.3 g/dL Critically low 14.0-18.0 [facility] Comment on above: Performed By: #### T RANSFR #### [facility] [address] [place] [address] Dr. Luis Alberto Olivia IG # 0.03 10e3/ul Normal 0.00-0.03 [facility] Comment on above: Performed By: #### T RANSFR #### [facility] [address] [place] [address] Dr. Luis Alberto Olivia IG % 0.5 % Normal 0.0-0.5 [facility] Comment on above: Performed By: #### T RANSFR #### [facility] [address] [place] [address] Dr. Luis Alberto Olivia LYMPH # 1.0 103/ul Critically low 1.2-3.8 [facility] Comment on above: Performed By: #### T RANSFR #### [facility] [address] [place] [address] Dr. Luis Alberto Olivia Lymphocytes/100 WBC (Bld) 16.0 % Critically low 20.5-60.0 [facility] Comment on above: Performed By: #### T RANSFR #### [facility] [address] [place] [address] Dr. Luis Alberto Olivia MANUAL DIFF REQ NO Normal [facility] Comment on above: Performed By: #### T RANSFR #### [facility] [address] [place] [address] Dr. Luis Alberto Olivia MCH (RBC) [Entitic mass] 28.4 pg Normal 25.9-34.0 [facility] Comment on above: Performed By: #### T RANSFR #### [facility] [address] [place] [address] Dr. Luis Alberto Olivia MCHC (RBC) [Mass/Vol] 31.0 g/dL Normal 29.9-35.2 [facility] Comment on above: Performed By: #### T RANSFR #### [facility] [address] [place] [address] Dr. Luis Alberto Olivia MCV (RBC) [Entitic vol] 91.7 fL Normal 80.0-94.0 [facility] Comment on above: Performed By: #### T RANSFR #### [facility] [address] [place] [address] Dr. Luis Alberto Olivia MONO # 0.6 103/ul Normal 0.3-0.8 [facility] Comment on above: Performed By: #### T RANSFR #### [facility] [address] [place] [address] Dr. Luis Alberto Olivia Monocytes/100 WBC (Bld) 9.8 % Normal 1.7-12.0 [facility] Comment on above: Performed By: #### T RANSFR #### [facility] [address] [place] [address] Dr. Luis Alberto Olivia NEUT # 4.2 103/ul Normal 1.4-6.5 [facility] Comment on above: Performed By: #### T RANSFR #### [facility] [address] [place] [address] Dr. Luis Alberto Olivia Neutrophils/100 WBC (Bld) 70.4 % Normal 43.0-75.0 [facility] Comment on above: Performed By: #### T RANSFR #### [facility] [address] [place] [address] Dr. Luis Alberto Olivia Platelet mean volume (Bld) [Entitic vol] 9.4 fL Critically low 9.5-13.5 [facility] Comment on above: Performed By: #### T RANSFR #### [facility] [address] [place] [address] Dr. Luis Alberto Olivia PLT 264 103/ul Normal 150-450 [facility] Comment on above: Performed By: #### T RANSFR #### [facility] [address] [place] [address] Dr. Luis Alberto Olivia RBC 3.98 106/ul Critically low 4.70-6.10 [facility] Comment on above: Performed By: #### T RANSFR #### [facility] [address] [place] [address] Dr. Luis Alberto Olivia WBC 6.0 103/ul Normal 4.0-11.0 [facility] Comment on above: Performed By: #### T RANSFR #### [facility] [address] [place] [address] [address] ABD/PELVIS WO CONon 10-30 CT ABD/PELVIS WO CON EXAMINATION: CT ABD/PELVIS WO CON, 10/30/2021 1:34 PM EDT HISTORY: CALCULUS OF KIDNEY COMPARISON: None. TECHNIQUE: CT scan of the abdomen and pelvis was performed without IV contrast. CT dose reduction technique was used, including Automated Exposure Control. FINDINGS: The lung bases are clear. Lower mediastinal structures are normal. The liver, spleen, adrenal glands, pancreas, gallbladder show normal unenhanced characteristics. The kidneys are symmetric in size. Both kidneys show small simple appearing cysts. No renal or ureteral stones are seen and there is no hydronephrosis on either side. There is scattered calcified plaque in the aorta and branch vessels. The large and small bowel are normal caliber. Calcifications and metallic treatment seeds are seen in the prostate gland. Urinary bladder is grossly normal. There is no free air or free fluid and no inflammatory stranding is seen. No suspicious or destructive bone lesions are seen. IMPRESSION: There are simple cysts in both kidneys. Evaluation of the urinary tract system is otherwise unremarkable within the limitations of a noncontrast exam. Electronically authenticated by: MATTHEW ANN Date: 2021-10-30 14:48 Normal [facility] ER URINE PROFILEon 2 Bilirubin Ql (U) Negative Normal NEGATIVE [facility] Comment on above: Performed By: #### L IVER #### [facility] [address] [place] [address] Dr. Luis Alberto Olivia Clarity (U) CLEAR Normal CLEAR [facility] Comment on above: Performed By: #### L IVER #### [facility] [address] [place] [address] Dr. Luis Alberto Olivia Color (U) LT. YELLOW Normal YELLOW [facility] Comment on above: Performed By: #### L IVER #### [facility] [address] [place] [address] Dr. Luis Alberto Olivia ERUAHD A micrscopic examination will be performed if indicated. Normal [facility] Comment on above: Performed By: #### L IVER #### [facility] [address] [place] [address] Dr. Luis Alberto Olivia Glucose Ql (U) Negative Normal NEGATIVE [facility] Comment on above: Performed By: #### L IVER #### [facility] [address] [place] [address] Dr. Luis Alberto Olivia Hemoglobin Ql (U) TRACE-INTACT Abnormal NEGATIVE [facility] Comment on above: Performed By: #### L IVER #### [facility] [address] [place] [address] Dr. Luis Alberto Olivia Ketones Ql (U) Negative Normal NEGATIVE [facility] Comment on above: Performed By: #### L IVER #### [facility] [address] [place] [address] Dr. Luis Alberto Olivia LEUKOCYTES LARGE Abnormal NEGATIVE [facility] Comment on above: Performed By: #### L IVER #### [facility] [address] [place] [address] Dr. Luis Alberto Olivia Nitrite Ql (U) Negative Normal NEGATIVE [facility] Comment on above: Performed By: #### L IVER #### [facility] [address] [place] [address] Dr. Luis Alberto Olivia pH (U) 7.0 [pH] Normal 5-9 [facility] Comment on above: Performed By: #### L IVER #### [facility] [address] [place] [address] Dr. Luis Alberto Olivia SPEC GRAVITY 1.010 Normal 1.005-<=1.02 5 [facility] Comment on above: Performed By: #### L IVER #### [facility] [address] [place] [address] Dr. Luis Alberto Olivia UA PROTEIN Negative Normal NEGATIVE/ TRACE [facility] Comment on above: Performed By: #### L IVER #### [facility] [address] [place] [address] Dr. Luis Alberto Olivia UR MICRO IND INDICATED Normal [facility] Comment on above: Performed By: #### L IVER #### [facility] [address] [place] [address] Dr. Luis Alberto Olivia Urobilinogen Qn (U) 0.2 {Srini'U}/dL Normal 0.2 - 1. 0 [facility] Comment on above: Performed By: #### L IVER #### [facility] [address] [place] [address] Dr. Luis Alberto Olivia LACTATE/LACTIC ACIDon 2021 Lactate [Moles/Vol] 0.9 mmol/L Normal 0.4-1.9 [facility] Comment on above: Performed By: #### R ETYPE #### [facility] [address] [place] [address] Dr. Luis Alberto Olivia LIPASEon 10-30-2021 Lipase [Catalytic activity/Vol] 176.0 U/L Normal 73.0-393.0 [facility] Comment on above: Performed By: #### L IVER #### [facility] [address] [place] [address] Dr. Luis Alberto Olivia PROF 14(COMP METB)on 022 Albumin [Mass/Vol] 3.4 g/dL Normal 3.4-5.0 [facility] Comment on above: Performed By: #### L IVER #### [facility] [address] [place] [address] Dr. Luis Alberto Olivia Albumin/Globulin [Mass ratio] 0.9 {ratio} Normal [facility] Comment on above: Performed By: #### L IVER #### [facility] [address] [place] [address] Dr. Luis Alberto Olivia ALP [Catalytic activity/Vol] 64 U/L Normal 46-116 [facility] Comment on above: Performed By: #### L IVER #### [facility] [address] [place] [address] Dr. Luis Alberto Olivia ALT [Catalytic activity/Vol] 22 U/L Normal 16-63 [facility] Comment on above: Performed By: #### L IVER #### [facility] [address] [place] [address] Dr. Luis Alberto Olivia Anion gap [Moles/Vol] 12.4 mmol/L Normal [facility] Comment on above: Performed By: #### L IVER #### [facility] [address] [place] [address] Dr. Luis Alberto Olivia AST [Catalytic activity/Vol] 16 U/L Normal 15-37 [facility] Comment on above: Performed By: #### L IVER #### [facility] [address] [place] [address] Dr. Luis Alberto Olivia Bilirubin [Mass/Vol] 0.7 mg/dL Normal 0.2-1.0 [facility] Comment on above: Performed By: #### L IVER #### [facility] [address] [address] [address] Luis Alberto Olivia Calcium [Mass/Vol] 9.4 mg/dL Normal 8.5-10.1 [facility] Comment on above: Performed By: #### L IVER #### [facility] [address] [address] [address] Luis Alberto Olivia Chloride [Moles/Vol] 101 mmol/L Normal 98-107 [facility] Comment on above: Performed By: #### L IVER #### [facility] [address] [address] [address] Luis Alberto Olivia CO2 [Moles/Vol] 29.3 mmol/L Normal 21.0-32.0 [facility] Comment on above: Performed By: #### L IVER #### [facility] [address] [place] [address] Dr. Luis Alberto Olivia Creatinine [Mass/Vol] 1.22 mg/dL Normal 0.70-1.30 [facility] Comment on above: Performed By: #### L IVER #### [facility] [address] [address] [address] Luis Alberto Olivia EGFR-AF SAO TOMEAN >60 Normal >=60 [facility] Comment on above: Performed By: #### L IVER #### [facility] [address] [place] [address] Dr. Luis Alberto Olivia EGFR-NON AF SAO TOMEAN 58 mL/min/1.73m2 Critically low >=60 [facility] Comment on above: Performed By: #### L IVER #### [facility] [address] [address] [address] Luis Alberto Olivia Globulin (S) [Mass/Vol] 4.0 g/dL Normal [facility] Comment on above: Performed By: #### L IVER #### [facility] [address] [address] [address] Luis Alberto Olivia Glucose [Mass/Vol] 107 mg/dL Critically high 74-106 [facility] Comment on above: Performed By: #### L IVER #### [facility] [address] [address] [address] Luis Alberto Olivia Potassium [Moles/Vol] 3.7 mmol/L Normal 3.5-5.1 [facility] Comment on above: Performed By: #### L IVER #### [facility] [address] [place] [address] Dr. Luis Alberto Olivia Protein [Mass/Vol] 7.4 g/dL Normal 6.4-8.2 [facility] Comment on above: Performed By: #### L IVER #### [facility] [address] [place] [address] Dr. Luis Alberto Olivia Sodium [Moles/Vol] 139 mmol/L Normal 136-145 [facility] Comment on above: Performed By: #### L IVER #### [facility] [address] [place] [address] Dr. Luis Alberto Olivia Urea nitrogen [Mass/Vol] 15.0 mg/dL Normal 7.0-18.0 [facility] Comment on above: Performed By: #### L IVER #### [facility] [address] [place] [address] Dr. Luis Alberto Olivia Urea nitrogen/Creatinine [Mass ratio] 12.3 mg/mg Normal [facility] Comment on above: Performed By: #### L IVER #### [facility] [address] [place] [address] Dr. Luis Alberto Olivia URINE MICROSCOPIC ONLYon BACTERIA TRACE Abnormal NONE SEEN [facility] Comment on above: Performed By: #### T RANSFR #### [facility] [address] [place] [address] Dr. Luis Alberto Olivia Bacteria identified Cx Nom (U) INDICATED Normal [facility] Comment on above: Performed By: #### T RANSFR #### [facility] [address] [place] [address] Dr. Luis Alberto Olivia CAST NONE SEEN Normal NONE SEEN [facility] Comment on above: Performed By: #### T RANSFR #### [facility] [address] [place] [address] Dr. Luis Alberto Olivia Crystals LM Nom (Urine sed) NONE SEEN Normal NONE SEEN [facility] Comment on above: Performed By: #### T RANSFR #### [facility] [address] [place] [address] Dr. Luis Alberto Olivia Epithelial cells LM Ql (Urine sed) RARE Normal NONE SEEN /RARE [facility] Comment on above: Performed By: #### T RANSFR #### [facility] [address] [place] [address] Dr. Luis Alberto Olivia MUCOUS NONE SEEN Normal NONE SEEN [facility] Comment on above: Performed By: #### T RANSFR #### [facility] [address] [place] [address] Dr. Luis Alberto Olivia RBC 2-5 Abnormal 0-2 [facility] Comment on above: Performed By: #### T RANSFR #### [facility] [address] [place] [address] Dr. Luis Alberto Olivia WBC 20-50 Abnormal NONE SEEN [facility] Comment on above: Performed By: #### T RANSFR #### [facility] [address] [place] [address] Dr. Luis Alberto Olivia Reference Laboratory Testing Ordered By: Generated DomainUser on 05-08-2021 SARS-CoV-2 (COVID-19) RNA BOAZ+probe Ql (Resp) Not detected Invalid Interpretation Code Not Detected [facility] [employer] Comment on above: Result Comment: This nucleic acid amplification test was developed and its performance characteristics determined by [employer]. Nucleic acid amplification tests include RT-PCR and TMA. This test has not been FDA cleared or approved. This test has been authorized by FDA under an Emergency Use Authorization (EUA). This test is only authorized for the duration of time the declaration that circumstances exist justifying the authorization of the emergency use of in vitro diagnostic tests for detection of SARS-CoV-2 virus and/or diagnosis of COVID-19 infection under section 564(b)(1) of the Act, 21 U.S.C. 360bbb-3(b) (1), unless the authorization is terminated or revoked sooner. When diagnostic testing is negative, the possibility of a false negative result should be considered in the context of a patient's recent exposures and the presence of clinical signs and symptoms consistent with COVID-19. An individual without symptoms of COVID-19 and who is not shedding SARS-CoV-2 virus would expect to have a negative (not detected) result in this assay. Performed at: [address] [id number] PhD Torressrinivas Ismael FOREARM LEFTon 04-09-2021 FOREARM LEFT [facility] Department of Radiology [address] [place] [id number] Patient Name: IRENA PERAZA : 1945 Sex: M Age: Race: White Pt. 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 COMPARISON: Radiographs dating back to 01/28/2015. IMPRESSION: 1. Ovoid longitudinally oriented lucent lesion within the distal radial shaft measuring up to 2.8 x 0.6 cm without significant change dating back to thousand 15. No appreciable soft tissue mass or periosteal reaction. Relatively well marginated however no definite sclerotic borders seen. 2. Unchanged subchondral cyst distal radius. Wrist arthritis. Osteopenia, no fracture. Electronically signed: Trung Hightower. Transcribed by: [email or web address], User Resident: Electronically Signed by: TRUNG HIGHTOWER @ 04/10/2021 02:55 PM Normal [facility] Comment on above: Order Comment: evalu ate KNEE RIGHT 3 VWSon KNEE RIGHT 3 VWS [facility] Department of Radiology [address] [place] [id number] Patient Name: IRENA PERAZA : 1945 Sex: M Age: Race: White Pt. 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 COMPARISON: 03/14/2020, 03/16/2019. IMPRESSION: 1. 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 No aggressive features. 2. Osteopenia, no fracture or malalignment. Degenerative changes, complete patellofemoral joint space loss. Electronically signed: Trung Hightower. Transcribed by: [email or web address], User Resident: Electronically Signed by: TRUNG HIGHTOWER @ 04/10/2021 02:56 PM Normal [facility] Comment on above: Order Comment: evalu ate XR SHLDR >/=3V AP/FAISAL AP/OTH R RTon 10-11-2017 XR SHLDR >/=3V AP/FAISAL AP/OTHR RT * * *Final Report* * *DATE OF EXAM: Oct 11 2017 1:38PM LUX 5253 - XR SHLDR >/=3V AP/FAISAL AP/OTHR RT / REASON: * * * * Physician Interpretation * * * * EXAM: XR SHLDR >/=3V AP/FAISAL AP/OTHR RTHISTORY: Right shoulder replacement.VIEWS: AP neutral, AP internal rotation, AP external rotation, transscapular.COMPARI SON: 12/23/2016.FINDINGS: 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 No dislocation, acute fracture or osteolysis. Acromioplasty and partial distal clavicle resection.IMPRESSION: Stable reverse right total shoulder arthroplasty.Transcri ptionist: KIMBERLY Transcribe Date/Time: Oct 11 2017 3:16PDictated by : Sidra ASH MDThijorje examination was interpreted and the report reviewed and electronically signed by: Sidra ASH MD on Oct 11 2017 3:17PM [id number] [facility] XR SHLDR >/=3V AP/FAISAL AP/OTH R LTon 03-22-2017 XR SHLDR >/=3V AP/FAISAL AP/OTHR LT * * *Final Report* * *DATE OF EXAM: Mar 22 2017 10:48AM LUX 5252 - XR SHLDR >/=3V AP/FAISAL AP/OTHR LT / REASON: BRANDYN SHOULDER PAIN, COMPLETE TEAR OF ROTATOR CUFF (M75.120) * * * * Physician Interpretation * * * * History: PainFINDINGS: 5 views of each shoulder have been obtained. Patient has undergone bilateral shoulder arthroplasties with stable alignment, without interval complication. Postsurgical changes of the acromioclavicular joint noted bilaterally. No gross soft tissue abnormality is seen.IMPRESSION: Stable postsurgical changes without interval complication.Transcri ptionist: KIMBERLY Transcribe Date/Time: Mar 22 2017 12:18PDictated by : Kwaku STROUD examination was interpreted and the report reviewed and electronically signed by: MONIK ESPOSITO MD on Mar 22 2017 12:19PM [id number] [facility] XR SHLDR >/=3V AP/FAISAL AP/OTH R RTon 03-22-2017 XR SHLDR >/=3V AP/FAISAL AP/OTHR RT * * *Final Report* * *DATE OF EXAM: Mar 22 2017 10:48AM LUX 5253 - XR SHLDR >/=3V AP/FAISAL AP/OTHR RT / REASON: BRANDYN SHOULDER PAIN, COMPLETE TEAR OF ROTATOR CUFF (M75.120) * * * * Physician Interpretation * * * * History: PainFINDINGS: 5 views of each shoulder have been obtained. Patient has undergone bilateral shoulder arthroplasties with stable alignment, without interval complication. Postsurgical changes of the acromioclavicular joint noted bilaterally. No gross soft tissue abnormality is seen.IMPRESSION: Stable postsurgical changes without interval complication.Transcri ptionist: PSCB Transcribe Date/Time: Mar 22 2017 12:18PDictated by : Kwaku STROUD examination was interpreted and the report reviewed and electronically signed by: MONIK ESPOSITO MD on Mar 22 2017 12:19PM [id number] [facility] XR SHOULDER M2V UNIon 2016 XR SHOULDER M2V UNI * * *Final Report* * *DATE OF EXAM: Nov 09 2016 2:22PM LUX 8705 - XR SHOULDER M2V UNI - RIGHT / REASON: ROTATOR CUFF TEAR ARTHROPATHY ,RIGHT * * * * Physician Interpretation * * * * HISTORY: Postop follow-upCOMPARISON: Comparison is made to prior shoulder study dated 09/21/2016RESULT: 5 views of the right shoulder demonstrate postoperative changes of right shoulder arthroplasty. Visualized surgical hardware is intact and there is no radiographic evidence for loosening or superimposed fracture. Acromioplasty with distal clavicular resection is unchanged.IMPRESSION: Postsurgical changes without interval complication.Transcri ptionist: PSCB Transcribe Date/Time: Nov 09 2016 3:37PDictated by : PATRICIA LE MDThis examination was interpreted and the report reviewed and electronically signed by: PATRICIA LE MD on Nov 09 2016 3:39PM [facility] Vital Signs Date Time Vital Sign Value Performing Clinician Scar gutiérrez 01-31-2024 12:07-0400 Body height 172.7 cm Adilene Lowe PA Work Phone: [facility] 01-31-2024 12:07-0400 Body mass index (BMI) [Ratio] 32.69 kg/m2 Adilene Lowe PA Work Phone: [facility] 01-31-2024 12:07-0400 Body weight 97.52 kg Adilene Lowe PA Work Phone: [facility] 01-31-2024 12:07-0400 Diastolic blood pressure 78 mm[Hg] Adilene Lowe PA Work Phone: [facility] 01-31-2024 12:07-0400 Systolic blood pressure 134 mm[Hg] Adilene Lowe PA Work Phone: [facility] 11-17-2023 15:55-0400 Body height 177.8 cm Kaylah Kemp MD Work Phone: [facility] 11-17-2023 15:55-0400 Body mass index (BMI) [Ratio] 30.85 kg/m2 Kaylah Kemp MD Work Phone: [facility] 11-17-2023 15:55-0400 Body weight 97.52 kg Kaylah Kemp MD Work Phone: [facility] 11-17-2023 15:55-0400 Diastolic blood pressure 75 mm[Hg] Kaylah Kemp MD Work Phone: [facility] 11-17-2023 15:55-0400 Heart rate 70 /min Kaylah Kemp MD Work Phone: [facility] 11-17-2023 15:55-0400 Systolic blood pressure 127 mm[Hg] Kaylah Kemp MD Work Phone: [facility] 11-17-2023 15:10-0400 Diastolic blood pressure 80 mm[Hg] Transesophageal Main [facility] 11-17-2023 15:10-0400 Heart rate 69 /min Transesophageal [facility] 11-17-2023 15:10-0400 SaO2% (BldA) [Mass fraction] 95 % Transesophageal [facility] 11-17-2023 15:10-0400 Systolic blood pressure 136 mm[Hg] Transesophageal [facility] 11-17-2023 14:51-0400 Respiratory rate 23 /min Transesophageal [facility] 11-17-2023 13:56-0400 Body temperature 97.7 [degF[facility] 11-11-2023 11:37-0400 Diastolic blood pressure 89 mm[Hg] Alpa Ram DO Work Phone: [facility] 11-11-2023 11:37-0400 Systolic blood pressure 138 mm[Hg] Alpa Ram DO Work Phone: [facility] 11-11-2023 10:31-0400 Body height 177.8 cm Alpa Ram DO Work Phone: [facility] 11-11-2023 10:31-0400 Body mass index (BMI) [Ratio] 30.91 kg/m2 Alpa Ram DO Work Phone: [facility] 11-11-2023 10:31-0400 Body temperature 97.7 [degF] Alpa Ram DO Work Phone: [facility] 11-11-2023 10:31-0400 Body weight 97.7 kg Alpa Tobinis DO Work Phone: [facility] 11-11-2023 10:31-0400 Heart rate 72 /min Alpa Ram DO Work Phone: [facility] 11-11-2023 10:31-0400 SaO2% (BldA) [Mass fraction] 97 % Alpa Ram DO Work Phone: [facility] 11-01-2023 10:14-0400 Blood Pressure Location Nghia ROBERSON [facility] 11-01-2023 10:14-0400 Body temperature 97.88 [degF] Nghia ROBERSON [facility] 11-01-2023 10:14-0400 Diastolic blood pressure 76 mm[Hg] Nghia ROBERSON [facility] 11-01-2023 10:14-0400 Heart rate 74 /min Nghia ROBERSON [facility] 11-01-2023 10:14-0400 Respiratory rate 16 /min Nghia ROBERSON [facility] 11-01-2023 10:14-0400 SaO2% (BldA) [Mass fraction] 94 % Nghia ROBERSON [facility] 11-01-2023 10:14-0400 Systolic blood pressure 122 mm[Hg] Nghia ROBERSON [facility] 09-06-2023 14:00-0400 Blood Pressure Location Jevon Pantoja [facility] 09-06-2023 14:00-0400 Body temperature 98.24 [degF] Jevon Pantoja [facility] 09-06-2023 14:00-0400 Diastolic blood pressure 78 mm[Hg] Jevon Pantoja [facility] 09-06-2023 14:00-0400 Heart rate 92 /min Jevon Pantoja [facility] 09-06-2023 14:00-0400 SaO2% (BldA) [Mass fraction] 96 % Jevon Pantoja [facility] 09-06-2023 14:00-0400 Systolic blood pressure 158 mm[Hg] [facility] 10:08-0400 Body mass index (BMI) [Ratio] 30.18 kg/m2 Alpa Ram DO Work Phone: [facility] 08-29-2023 10:08-0400 Body weight 95.4 kg Alpa Ram DO Work Phone: [facility] 08-29-2023 10:08-0400 Diastolic blood pressure 56 mm[Hg] Alpa Ram DO Work Phone: [facility] 08-29-2023 10:08-0400 Heart rate 84 /min Alpa Ram DO Work Phone: [facility] 08-29-2023 10:08-0400 Systolic blood pressure 120 mm[Hg] Alpa Ram DO Work Phone: [facility] 08-24-2023 13:53-0400 Body temperature 97.7 [degF] [facility] 08-24-2023 13:53-0400 Diastolic blood pressure 91 mm[Hg] [facility] 08-24-2023 13:53-0400 Heart rate 87 /min [facility] 08-24-2023 13:53-0400 Mean blood pressure 115 mm[Hg] [facility] 13:53-0400 Respiratory rate 16 /min [facility] 08-24-2023 13:53-0400 SaO2% (BldA) [Mass fraction] 98 % [facility] 08-24-2023 13:53-0400 Systolic blood pressure 164 mm[Hg] [facility] 08-15-2023 14:42-0400 Body weight 95.5 kg Odalys Rosa MD Work Phone: [facility] 08-15-2023 14:42-0400 Diastolic blood pressure 60 mm[Hg] Odalys Rosa MD Work Phone: [facility] 08-15-2023 14:42-0400 Heart rate 82 /min Odalys Rosa MD Work Phone: [facility] 08-15-2023 14:42-0400 SaO2% (BldA) [Mass fraction] 98 % Odalys Rosa MD Work Phone: [facility] 08-15-2023 14:42-0400 Systolic blood pressure 136 mm[Hg] Odalys Rosa MD Work Phone: [facility] 07-18-2023 10:26-0400 Body height 177.8 cm Angeli Kimball MD Work Phone: [facility] 07-18-2023 10:26-0400 Body weight 96.7 kg Angeli Kimball MD Work Phone: [facility] 07-18-2023 10:26-0400 Diastolic blood pressure 84 mm[Hg] Angeli Kimball MD Work Phone: [facility] 07-18-2023 10:26-0400 Heart rate 120 /min Angeli Kimball MD Work Phone: [facility] 07-18-2023 10:26-0400 Systolic blood pressure 150 mm[Hg] Angeli Kimball MD Work Phone: [facility] 06-24-2023 10:44-0500 Blood Pressure Location Moffett Sarmini [facility] 06-24-2023 10:44-0500 Diastolic blood pressure 80 mm[Hg] Moffett Sarmini [facility] 06-24-2023 10:44-0500 Heart rate 68 /min Moffett Sarmini [facility] 06-24-2023 10:44-0500 Respiratory rate 18 /min Moffett Sarmini [facility] 06-24-2023 10:44-0500 Systolic blood pressure 138 mm[Hg] Moffett Sarmini [facility] 06-22-2023 14:48-0500 Body height 177.8 cm Alpa Ram DO Work Phone: [facility] 06-22-2023 14:48-0500 Body temperature 99.1 [degF] Alpa Ram DO Work Phone: [facility] 06-22-2023 14:48-0500 Body weight 94.8 kg Alpa Ram DO Work Phone: [facility] 06-22-2023 14:48-0500 Diastolic blood pressure 66 mm[Hg] Alpa Ram DO Work Phone: [facility] 06-22-2023 14:48-0500 Heart rate 102 /min Alpa Ram DO Work Phone: [facility] 06-22-2023 14:48-0500 SaO2% (BldA) [Mass fraction] 97 % Alpa Ram DO Work Phone: [facility] 06-22-2023 14:48-0500 Systolic blood pressure 116 mm[Hg] Alpa Ram DO Work Phone: [facility] 06-20-2023 14:31-0500 Body height 177.8 cm Scarlett Gaviria Work Phone: [facility] 06-20-2023 14:31-0500 Body mass index (BMI) [Ratio] 29.7 kg/m2 Scarlett Gaviria Work Phone: [facility] 06-20-2023 14:31-0500 Body weight 93.89 kg Scarlett Gaviria Work Phone: [facility] 06-14-2023 11:50-0500 Body height 172.7 cm Haris Bautista Work Phone: [facility] 06-14-2023 11:50-0500 Body mass index (BMI) [Ratio] 33.3 kg/m2 Haris MADRIGAL Work Phone: [facility] 06-14-2023 11:50-0500 Body weight 99.34 kg Haris Oxanatrevin DPM FACFA S Work Phone: [facility] 06-14-2023 11:50-0500 Diastolic blood pressure 74 mm[Hg] Haris Tracy DPM FACFAS Work Phone: [facility] 06-14-2023 11:50-0500 Heart rate 72 /min Haris Oxanatrevin DPM FACFA S Work Phone: [facility] 06-14-2023 11:50-0500 Systolic blood pressure 118 mm[Hg] Haris Oxanatrevin DPM FACFAS Work Phone: [facility] 02-02-2023 14:40-0400 Blood Pressure Location Nghia ROBERSON [facility] 02-02-2023 14:40-0400 Diastolic blood pressure 77 mm[Hg] Nghia ROBERSON [facility] 02-02-2023 14:40-0400 Heart rate 73 /min Nghia ROBERSON [facility] 02-02-2023 14:40-0400 Systolic blood pressure 134 mm[Hg] Nghia ROBERSON [facility] 09-14-2022 15:19-0400 Body height 177.8 cm Kaylah Kemp MD Work Phone: [facility] 09-14-2022 15:19-0400 Body weight 92.99 kg Kaylah Kemp MD Work Phone: [facility] 09-14-2022 15:19-0400 Diastolic blood pressure 71 mm[Hg] Kaylah Kemp MD Work Phone: [facility] 09-14-2022 15:19-0400 Heart rate 70 /min Kaylah Kemp MD Work Phone: [facility] 09-14-2022 15:19-0400 Systolic blood pressure 139 mm[Hg] Kaylah Kemp MD Work Phone: [facility] 09-03-2022 12:51-0400 Blood Pressure Location [facility] 09-03-2022 12:51-0400 Body temperature 97.88 [degF] [facility] 09-03-2022 12:51-0400 Diastolic blood pressure 82 mm[Hg] [facility] 09-03-2022 12:51-0400 Heart rate 83 /min [facility] 09-03-2022 12:51-0400 Mean blood pressure 107 mm[Hg] [facility] 09-03-2022 12:51-0400 Respiratory rate 18 /min [facility] 09-03-2022 12:51-0400 SaO2% (BldA) [Mass fraction] 93 % [facility] 09-03-2022 12:51-0400 Systolic blood pressure 156 mm[Hg] [facility] 08-19-2022 14:01-0400 Heart rate 83 /min [facility] 08-19-2022 14:01-0400 SaO2% (BldA) [Mass fraction] 98 % [facility] 08-19-2022 14:01-0400 Diastolic blood pressure 78 mm[Hg] [facility] 08-19-2022 14:01-0400 Mean blood pressure 100 mm[Hg] [facility] 08-19-2022 14:01-0400 Systolic blood pressure 144 mm[Hg] [facility] 08-19-2022 14:01-0400 Body temperature 97.88 [degF] [facility] 08-19-2022 14:00-0400 Blood Pressure Location Jevon Pantoja [facility] 08-19-2022 14:00-0400 Respiratory rate 18 /min Jevon Pnatoja [facility] 07-15-2022 14:23-0400 Diastolic blood pressure 74 mm[Hg] [facility] 07-15-2022 14:23-0400 Mean blood pressure 100 mm[Hg] [facility] 07-15-2022 14:23-0400 Systolic blood pressure 152 mm[Hg] [facility] 07-15-2022 14:16-0400 Blood Pressure Location [facility] 07-15-2022 14:16-0400 Diastolic blood pressure 86 mm[Hg] [facility] 07-15-2022 14:16-0400 Heart rate 85 /min [facility] 07-15-2022 14:16-0400 Respiratory rate 16 /min [facility] 07-15-2022 14:16-0400 Systolic blood pressure 152 mm[Hg] [facility] 05-18-2022 12:31-0500 Diastolic blood pressure 81 mm[Hg] Flory Maravilla MD Work Phone: [facility] 05-18-2022 12:31-0500 Systolic blood pressure 136 mm[Hg] Flory Maravilla MD Work Phone: [facility] 05-18-2022 12:28-0500 Body height 177.8 cm Flory cortez MD Work Phone: [facility] 05-18-2022 12:28-0500 Body weight 94.67 kg Flory cortez MD Work Phone: [facility] 05-18-2022 12:28-0500 Heart rate 83 /min Flory cortez MD Work Phone: [facility] 05-18-2022 12:28-0500 SaO2% (BldA) [Mass fraction] 97 % Flory Maravilla MD Work Phone: [facility] 04-13-2022 09:18-0500 Body height 177.8 cm Kaylah Kemp MD Work Phone: [facility] 04-13-2022 09:18-0500 Body weight 94.8 kg Kaylah Kemp MD Work Phone: [facility] 04-13-2022 09:18-0500 Diastolic blood pressure 94 mm[Hg] Kaylah Kemp MD Work Phone: [facility] 04-13-2022 09:18-0500 Heart rate 84 /min Kaylah Kemp MD Work Phone: [facility] 04-13-2022 09:18-0500 Systolic blood pressure 153 mm[Hg] Kaylah Kemp MD Work Phone: [facility] 02-18-2022 13:28-0400 Diastolic blood pressure 66 mm[Hg] Jevon Pantoja [facility] 02-18-2022 13:28-0400 Heart rate 92 /min Jevon Pantoja [facility] 02-18-2022 13:28-0400 Mean blood pressure 102 mm[Hg] Jevon Pantoja [facility] 02-18-2022 13:28-0400 Systolic blood pressure 173 mm[Hg] Jevon Pantoja [facility] 02-18-2022 13:22-0400 Blood Pressure Location [facility] 02-18-2022 13:22-0400 Body temperature 98.6 [degF] [facility] 02-18-[facility]22 13:22-0400 BP/Pulse Patient Position [facility] 02-18-2022 13:22-0400 Diastolic blood pressure 96 mm[Hg] [facility] 02-18-2022 13:22-0400 Heart rate 81 /min [facility] 02-18-2022 13:22-0400 Mean blood pressure 121 mm[Hg] [facility] 02-18-2022 13:22-0400 Respiratory rate 17 /min [facility] 02-18-2022 13:22-0400 SaO2% (BldA) [Mass fraction] 98 % [facility] 02-18-2022 13:22-0400 Systolic blood pressure 171 mm[Hg] [facility] 01-08-2022 11:10-0400 Blood Pressure Location [facility] 01-08-2022 11:10-0400 Body temperature 98.24 [degF] [facility] 01-08-2022 11:10-0400 Diastolic blood pressure 95 mm[Hg] [facility] 01-08-2022 11:10-0400 Heart rate 71 /min [facility] 01-08-2022 11:10-0400 Mean blood pressure 113 mm[Hg] [facility] 01-08-2022 11:10-0400 Respiratory rate 18 /min [facility] 01-08-2022 11:10-0400 SaO2% (BldA) [Mass fraction] 99 % [facility] 01-08-2022 11:10-0400 Systolic blood pressure 150 mm[Hg] [facility] 01-06-2022 13:13-0400 Body height 177.8 cm Odalys Rosa MD Work Phone: [facility] 01-06-2022 13:13-0400 Body weight 96.07 kg Odalys Rosa MD Work Phone: [facility] 01-06-2022 13:13-0400 Diastolic blood pressure 68 mm[Hg] Odalys Rosa MD Work Phone: [facility] 01-06-2022 13:13-0400 Heart rate 70 /min Odalys Rosa MD Work Phone: [facility] 01-06-2022 13:13-0400 Systolic blood pressure 124 mm[Hg] Odalys Rosa MD Work Phone: [facility] 01-06-2022 09:11-0400 Blood Pressure Location [facility] 01-06-2022 09:11-0400 Diastolic blood pressure 78 mm[Hg] [facility] 01-06-2022 09:11-0400 Heart rate 70 /min [facility] 01-06-2022 09:11-0400 Respiratory rate 16 /min [facility] 01-06-2022 09:11-0400 Systolic blood pressure 124 mm[Hg] [facility] 12-24-2021 14:54-0400 Blood Pressure Location Jevon Pantoja [facility] 12-24-2021 14:54-0400 Body temperature 98.06 [degF] Jevon Pantoja [facility] 12-24-2021 14:54-0400 BP/Pulse Patient Position Jevon Pantoja [facility] 12-24-2021 14:54-0400 Diastolic blood pressure 72 mm[Hg] Jevon Pantoja [facility] 12-24-2021 14:54-0400 Heart rate 70 /min Jevon Pantoja [facility] 12-24-2021 14:54-0400 Mean blood pressure 90 mm[Hg] Jevon Pantoja [facility] 12-24-2021 14:54-0400 Respiratory rate 18 /min Jevon Pantoja [facility] 12-24-2021 14:54-0400 SaO2% (BldA) [Mass fraction] 94 % Jevonsamra Pantoja [facility] 12-24-2021 14:54-0400 Systolic blood pressure 126 mm[Hg] Jevon Pantoja [facility] 12-01-2021 10:18-0400 Diastolic blood pressure 82 mm[Hg] Patriciatreva PruittMimi [facility] 12-01-2021 10:18-0400 Mean blood pressure 101 mm[Hg] Patricia Mimi [facility] 12-01-2021 10:18-0400 Systolic blood pressure 138 mm[Hg] Patricia Mimi [facility] 12-01-2021 10:15-0400 Blood Pressure Location Patricia Mimi [facility] 12-01-2021 10:15-0400 Body temperature 97.7 [degF] Patricia Mimi [facility] 12-01-2021 10:15-0400 Diastolic blood pressure 90 mm[Hg] Patricia Mimi [facility] 12-01-2021 10:15-0400 Heart rate 74 /min Patricia Mimi [facility] 12-01-2021 10:15-0400 SaO2% (BldA) [Mass fraction] 95 % Patricia Le [facility] 12-01-2021 10:15-0400 Systolic blood pressure 147 mm[Hg] Patricia Le [facility] 11-05-2021 10:42-0400 Blood Pressure Location [facility] 11-05-2021 10:42-0400 Body temperature 98.42 [degF] [facility] 11-05-2021 10:42-0400 BP/Pulse Patient Position [facility] 11-05-2021 10:42-0400 Diastolic blood pressure 65 mm[Hg] [facility] 11-05-2021 10:42-0400 Heart rate 75 /min [facility] 11-05-2021 10:42-0400 Mean blood pressure 90 mm[Hg] [facility] 11-05-2021 10:42-0400 Respiratory rate 17 /min [facility] 11-05-2021 10:42-0400 SaO2% (BldA) [Mass fraction] 96 % [facility] 11-05-2021 10:42-0400 Systolic blood pressure 142 mm[Hg] [facility] 11-05-2021 10:42-0400 Mean blood pressure 91 mm[Hg] [facility] 07-27-2021 10:55-0400 Diastolic blood pressure 66 mm[Hg] [facility] 07-27-2021 10:55-0400 Heart rate 80 /min [facility] 07-27-2021 10:55-0400 Respiratory rate 23 /min [facility] 07-27-2021 10:55-0400 SaO2% (BldA) [Mass fraction] 98 % [facility] 07-27-2021 10:55-0400 Systolic blood pressure 109 mm[Hg] [facility] 07-27-2021 10:40-0400 Diastolic blood pressure 70 mm[Hg] [facility] 07-27-2021 10:40-0400 Heart rate 81 /min [facility] 07-27-2021 10:40-0400 Respiratory rate 20 /min [facility] 07-27-2021 10:40-0400 SaO2% (BldA) [Mass fraction] 97 % [facility] 07-27-2021 10:40-0400 Systolic blood pressure 116 mm[Hg] [facility] 07-27-2021 10:35-0400 Diastolic blood pressure 61 mm[Hg] [facility] 07-27-2021 10:35-0400 Heart rate 81 /min [facility] 07-27-2021 10:35-0400 Respiratory rate 12 /min [facility] 07-27-2021 10:35-0400 SaO2% (BldA) [Mass fraction] 96 % [facility] 07-27-2021 10:35-0400 Systolic blood pressure 117 mm[Hg] [facility] 07-27-2021 10:25-0400 Body temperature 97.52 [degF] [facility] 07-27-2021 10:00-0400 Blood Pressure Location [facility] 07-27-2021 10:00-0400 Body temperature 98.24 [degF] [facility] [employer] Encounters Encounter Date Encounter Type Care Provider Facility Start: 01-31-2024 End: 01-31-2024 Admission to same day surgery center Alpa Lopez Mahadabhilash Work Phone: Ambulatory Surgery Comment on above: preprocedure instruc tions Start: 01-31-2024 End: 01-31-2024 Bamboo flowsheet Adilene Lowe PA Work Phone: [employer] [facility] Start: 01-31-2024 End: 01-31-2024 Bamboo flowsheet Adilene Lowe PA Work Phone: [employer] [facility] Start: 01-31-2024 End: 01-31-2024 E-mail encounter from caregiver Apla Tobinabhilash RICE Work Phone: Ambulatory Surgery Start: 01-31-2024 End: 01-31-2024 ambulatory ADILENE LOWE Not Available Start: 01-31-2024 End: 01-31-2024 Office outpatient visit 15 minutes Adilene Lowe PA Work Phone: [employer] [facility] Comment on above: MICHELE (obstructive sle ep apnea) (Primary Dx); Right median nerve neuropathy; Neck pain; Lumbar back pain; Depression, unspecified depression type (CMS/HCC) Start: 01-26-2024 End: 01-26-2024 ambulatory [facility] Start: 01-25-2024 End: 01-25-2024 Orders Only Alpa Ram DO Work Phone: [facility] [place] Comment on above: Lumbar spondylosis ( Primary Dx) Start: 01-17-2024 End: 01-17-2024 ambulatory HARIS Yrn SUTTON Not Available Start: 01-16-2024 End: 01-16-2024 ambulatory Alpa Ram DO Work Phone: Spine Medicine Comment on above: Lumbar spondylosis ( Primary Dx); Chronic bilateral low back pain without sciatica; Degenerative lumbar spinal stenosis Start: 01-16-2024 End: 01-16-2024 Telemedicine consultation with patient Alpa Ram DO Work Phone: Spine Medicine Start: 01-13-2024 End: 01-13-2024 ambulatory Scarlett Gaviria [facility] Start: 12-30-2023 End: 12-30-2023 Telephone encounter Alpa Ram DO Work Phone: [facility] [place] Start: 12-20-2023 End: 12-20-2023 ambulatory SCARLETT GAVIRIA Facility:[facility] Start: 12-15-2023 Telephone encounter Alpa Ram DO Work Phone: [facility] [place] Comment on above: Preparations For Pro cedures (Pre-injection instructions for 12/20/2023) Start: 12-01-2023 End: 12-01-2023 ambulatory CLARE MAGUIRE Not Available Start: 11-26-2023 Orders Only Alpa hung DO Work Phone: Neurology Comment on above: Spinal stenosis, lum bar region, without neurogenic claudication (Primary Dx); Lumbar radiculopathy Start: 11-17-2023 End: 11-17-2023 ambulatory KAYLAH KEMP Facility:[facility] Start: 11-17-2023 End: 11-17-2023 Patient encounter procedure Kaylah Kemp MD Work Phone: Cardiology Comment on above: HTN (hypertension), benign (Primary Dx); Chronic diastolic congestive heart failure (HCC); Paroxysmal atrial fibrillation (HCC) Start: 11-17-2023 End: 11-17-2023 Patient encounter procedure Transesophageal Echo Card [facility] Comment on above: IRB 21-1031 [employer]ATCHAMA N [employer]X [employer] (WATCH RWE) PI: Dr. Marcos Bermudez (Primary Dx) Start: 11-17-2023 End: 11-17-2023 Patient entered into trial Transesophageal Main [facility] Start: 11-17-2023 End: 11-17-2023 ambulatory SCARLETT GAVIRIA Facility:[facility] Start: 11-16-2023 Telephone encounter Zahira Piña RN Cardiology Start: 11-11-2023 End: 11-11-2023 ambulatory ALPA RAM Facility:[facility] Start: 11-11-2023 End: 11-11-2023 Patient encounter procedure Alpa Ram DO Work Phone: Spine Medicine Comment on above: Spinal stenosis of l umbar region with radiculopathy (Primary Dx); Lower extremity numbness Start: 11-09-2023 Refill Angeli Pool Work Phone: Cardiology Comment on above: Refill Request Start: 11-08-2023 End: 11-08-2023 ambulatory HARIS SUTTON Not Available Start: 11-01-2023 End: 11-01-2023 ambulatory Nghia ROBERSON Facility:[facility] Start: 11-01-2023 End: 11-01-2023 Patient encounter procedure Nghia ROBERSON [facility] Start: 10-28-2023 End: 10-28-2023 ambulatory Nghia ROBERSON Facility:[facility] Start: 10-28-2023 End: 10-28-2023 Patient encounter procedure Nghia ROBERSON [facility] Start: 10-26-2023 ambulatory Nghia ROBERSON Facility :[facility] Start: 10-19-2023 Refill Angeli Pool Work Phone: Cardiology Comment on above: Refill Request Start: 10-11-2023 End: 10-11-2023 ambulatory ODALYS ROSA Facility:[facility] Start: 10-03-2023 Refill Odalys welch MD Work Phone: Cardiology Comment on above: Refill Request Start: 09-27-2023 Telephone encounter Alpa Ram DO Work Phone: [facility] [place] Comment on above: Post injection f/u c all Start: 09-20-2023 End: 09-20-2023 ambulatory ALPA RAM Facility:[facility] Start: 09-16-2023 Telephone encounter Angeli shoemaker MD Work Phone: Cardiology Comment on above: Patient Update Start: 09-13-2023 Telephone encounter Alpa Lopez Estrella DO Work Phone: [facility] [place] Comment on above: Preparations For Pro cedures (Pre injection instructions) Start: 09-06-2023 End: 09-06-2023 ambulatory Jevon Pantoja Facility:[facility] Start: 09-06-2023 End: 09-06-2023 Patient encounter procedure Scarlett Gaviria [facility] Start: 09-01-2023 Orders Only Kaylah Barron i, MD Work Phone: Cardiology Comment on above: Paroxysmal atrial fi brillation (HCC) (Primary Dx); Chronic diastolic congestive heart failure (HCC); PAF (paroxysmal atrial fibrillation) (HCC); Presence of Watchman left atrial appendage closure device Start: 08-29-2023 End: 08-29-2023 ambulatory Jessika Avila RT(R) Radiology Comment on above: Radiology XR Spinal stenosis of l umbar region with radiculopathy (Primary Dx) Start: 08-29-2023 End: 08-29-2023 Patient encounter procedure Jessika Avila RT(R) Radiology Comment on above: Spinal stenosis of l umbar region with radiculopathy (Primary Dx); Back pain of lumbosacral region with sciatica; Lumbar spondylosis Start: 08-29-2023 Telephone encounter Alpa Tobinabhilash DO Work Phone: [facility] [place] Comment on above: Prior Authorization Medication Start: 08-29-2023 End: 08-29-2023 Subsequent hospital visit by physician Denise [facility] Rad[facility] Comment on above: Spinal stenosis of l umbar region with radiculopathy [M48.061, M54.16] Start: 08-24-2023 End: 08-24-2023 ambulatory Jevon Pantoja Facility:[facility] Start: 08-24-2023 End: 08-24-2023 Patient encounter procedure Jevon Panotja [facility] Start: 08-23-2023 End: 08-23-2023 ambulatory HARIS SUTTON Not Available Start: 08-19-2023 End: 08-19-2023 ambulatory Jevon Pantoja Facility:[facility] Start: 08-19-2023 End: 08-19-2023 Patient encounter procedure Jevon Pantoja [facility] Start: 08-16-2023 End: 08-16-2023 ambulatory KONRAD Ronnie AGUSTIN Not Available Start: 08-15-2023 End: 08-15-2023 ambulatory ODALYS ROSA Facility:[facility] Start: 08-15-2023 End: 08-15-2023 Patient encounter procedure Odalys Rosa MD Work Phone: Cardiology Comment on above: Paroxysmal atrial fi brillation (HCC) (Primary Dx) Start: 07-18-2023 End: 07-18-2023 ambulatory ANGELI KIMBALL Facility:[facility] Start: 07-18-2023 End: 07-18-2023 Patient encounter procedure Angeli Kimball MD Work Phone: Cardiology Comment on above: Persistent atrial fi brillation (HCC) (Primary Dx); Presence of Watchman left atrial appendage closure device; Obesity, Class I, BMI 30-34.9; Chronic diastolic congestive heart failure (HCC) Start: 06-24-2023 End: 06-24-2023 ambulatory [facility] Start: 06-24-2023 End: 06-24-2023 Patient encounter procedure Moffett Talal Sarmini [facility] Start: 06-22-2023 End: 06-22-2023 ambulatory SELF Facility:[facility] Start: 06-22-2023 End: 06-22-2023 Patient encounter procedure Alpa Ram DO Work Phone: Spine Medicine Comment on above: Bilateral lumbar rad iculopathy (Primary Dx); Spinal stenosis, lumbar region, without neurogenic claudication; Anterolisthesis of lumbar spine Start: 06-20-2023 End: 06-20-2023 ambulatory Yareli Vaibhav Facility:[facility] Start: 06-20-2023 End: 06-20-2023 ambulatory Scarlett Gaviria Work Phone: [facility] Work Phone: Start: 06-20-2023 End: 06-20-2023 Patient encounter procedure Scarlett Gaviria Work Phone: [facility] Work Phone: Start: 06-20-2023 End: 06-20-2023 ambulatory Scarlett Gaviria Work Phone: [facility] Work Phone: Start: 06-20-2023 End: 06-20-2023 Patient encounter procedure Scarlett Gaviria Work Phone: [facility] Neurosurgery Work Phone: Start: 06-16-2023 End: 06-16-2023 ambulatory MICHAEL SIMMS Facility:[facility] Start: 06-16-2023 End: 06-16-2023 Subsequent hospital visit by physician Injection Nm [facility] Work Phone: Nuclear Medicine Comment on above: Atypical chest pain [R07.89] Start: 06-15-2023 Telephone encounter Nurse Card [facility] Work Phone: Cardiology Comment on above: Atypical chest pain (Primary Dx) Start: 06-14-2023 Bamboo flowsheet Haris Sutton DPM FACFAS Work Phone: [facility] Start: 06-14-2023 Bamboo flowsheet Haris Sutton DPM FACFAS Work Phone: [facility] Start: 06-14-2023 End: 06-14-2023 ambulatory HARIS SUTTON Not Available Start: 06-14-2023 End: 06-14-2023 Patient encounter procedure Haris Sutton DPM FACFAS Work Phone: [facility] Comment on above: Onychomycosis (Prima ry Dx); Pain in left toe(s); Pain in right toe(s) Start: 06-13-2023 End: 06-13-2023 ambulatory [facility] Facility:[facility] Start: 06-13-2023 ambulatory [facility] Facility :[facility] Start: 06-13-2023 End: 06-13-2023 Subsequent hospital visit by physician [facility] Rej Work Phone: Nuclear Medicine Start: 06-07-2023 End: 06-07-2023 ambulatory ANABELA ROMAN Facility:[facility] Start: 06-03-2023 Refill Ny workman APRN.CNP Work Phone: Cardiology Comment on above: Refill Request; Mariangele rs Start: 05-31-2023 End: 05-31-2023 ambulatory KAYLAH KEMP Facility:[facility] Start: 05-20-2023 End: 05-20-2023 ambulatory Scarlett Gaviria Facility:[facility] Start: 05-20-2023 End: 05-20-2023 Patient encounter procedure Scarlett Gaviria [facility] Start: 05-11-2023 End: 05-11-2023 ambulatory Scarlett Gaviria Facility:[facility] Start: 04-26-2023 End: 04-27-2023 ambulatory MICHAEL SIMMS Facility:[facility] Start: 04-26-2023 End: 04-26-2023 ambulatory [facility] Facility:[facility] Start: 04-04-2023 End: 04-04-2023 ambulatory HARIS SUTTON Not Available Start: 02-02-2023 End: 02-02-2023 ambulatory Nghia ROBERSON Facility:[facility] Start: 02-02-2023 End: 02-02-2023 Patient encounter procedure Nghia ROBERSON [facility] Start: 01-28-2023 End: 01-28-2023 ambulatory Nghia ROBERSON Facility:[facility] Start: 01-28-2023 End: 01-28-2023 Patient encounter procedure Nghia ROBERSON [facility] Start: 12-24-2022 End: 12-24-2022 ambulatory Jevon Pantoja Facility:[facility] Start: 12-24-2022 End: 12-24-2022 Patient encounter procedure Jevonsamra Amayanura [facility] Start: 11-13-2022 Refill Angeli Pool Work Phone: Cardiology Comment on above: Refill Request Start: 11-09-2022 Refill Angeli Pool Work Phone: Cardiology Comment on above: Refill Request Start: 10-20-2022 Refill Odalys welch MD Work Phone: Medical Records Comment on above: Refill Request Start: 09-21-2022 Refill Odalys welch MD Work Phone: Cardiology Comment on above: Refill Request Start: 09-14-2022 End: 09-14-2022 Patient encounter procedure Kaylah Kemp MD Work Phone: Cardiology Comment on above: PAF (paroxysmal atri al fibrillation) (HCC) (Primary Dx); Gastrointestinal hemorrhage, unspecified gastrointestinal hemorrhage type Start: 09-03-2022 End: 09-03-2022 Patient encounter procedure Jevonsamra Amayaazizanura [facility] Start: 09-01-2022 Telephone encounter Odalys Rosa MD Work Phone: Cardiology Comment on above: Refill Request Start: 08-31-2022 Refill Kaylah Barron i, MD Work Phone: Cardiology Start: 08-19-2022 End: 08-19-2022 Patient encounter procedure Jevon Pantoja [facility] Start: 07-27-2022 End: 07-27-2022 Patient encounter procedure Irena COOK [facility] Start: 07-21-2022 End: 07-21-2022 Patient encounter procedure Jacque Correia [facility] Start: 07-16-2022 Telephone encounter Odalys Rosa MD Work Phone: Cardiology Comment on above: Refill Request (Eliceo syn) Start: 07-15-2022 End: 07-15-2022 Patient encounter procedure Florentino BOLAÑOS [facility] Start: 06-24-2022 End: 06-24-2022 Patient encounter procedure Scarlett Nathaniel Gaviria [facility] Start: 06-15-2022 End: 06-15-[address] DOCTOR DE LA PAZ Facility:[facility] Start: 06-10-2022 Orders Only Adilene Burgos nd HOTEL HOUSEKEEPER.SLUBBER FRAME CHANGER Work Phone: Cardiology Comment on above: IRB 21-1031 WATCHAMA N FLX Real World Evidence (WATCH RWE) PI: Dr. Marcos Bermudez (Primary Dx); AF (paroxysmal atrial fibrillation) (HCC) Start: 06-10-2022 Patient entered into trial Adilene Gerber HOTEL HOUSEKEEPER.SLUBBER FRAME CHANGER Work Phone: Cardiology Start: 05-30-2022 End: 05-30-[address] DAVID HAY Facility:[facility] Start: 05-25-2022 Telephone encounter Kaylah Kemp MD Work Phone: Cardiology Comment on above: Patient Question Start: 05-19-2022 End: 05-19-2022 Nursing evaluation of patient and report Research Nurse Card Eps Main [facility]iology Comment on above: IRB [id number] WATCHAMA N FLX Real World Evidence (WATCH RWE) PI: Dr. Marcos Bermudez (Primary Dx) Start: 05-19-2022 End: 05-19-2022 Patient entered into trial Research Nurse [facility] Start: 05-18-2022 ambulatory Kaylah Barron i, MD Work Phone: Cardiology Comment on above: Patient Education (W atchman ) Start: 05-18-2022 End: 05-18-2022 Patient encounter procedure Flory Maravilla MD Work Phone: Cardiology Comment on above: Gastrointestinal hem orrhage, unspecified gastrointestinal hemorrhage type (Primary Dx); HTN (hypertension), benign; PAF (paroxysmal atrial fibrillation) (HCC); Hyperlipidemia, unspecified hyperlipidemia type Start: 05-07-2022 Refill Chika BRITON.SLUBBER FRAME CHANGER, DNP Work Phone: Cardiology Comment on above: Refill Request Start: 05-04-2022 Refill Kaylah Barron i, MD Work Phone: Cardiology Comment on above: Refill Request Start: 04-19-2022 Orders Only Kaylah Barron i, MD Work Phone: Cardiology Comment on above: PAF (paroxysmal atri al fibrillation) (HCC) (Primary Dx) Schedule Surgery (Wa tchman implant) Start: 04-14-2022 Telephone encounter Kaylah Kemp MD Work Phone: Cardiology Comment on above: Patient Update Start: 04-13-2022 End: 04-13-2022 Patient encounter procedure Kaylah Kemp MD Work Phone: Cardiology Comment on above: AF (paroxysmal atria l fibrillation) (HCC) (Primary Dx); Gastrointestinal hemorrhage, unspecified gastrointestinal hemorrhage type Start: 02-18-2022 End: 02-18-2022 Patient encounter procedure Jevon Pantoja [facility] Start: 02-08-2022 End: 02-08-2022 Patient encounter procedure Patricia Le [facility] Start: 02-02-2022 End: 02-02-2022 Patient encounter procedure Patricia Le [facility] Start: 01-26-2022 End: 01-26-2022 Patient encounter procedure Irena COOK [facility] Start: 01-24-2022 End: 01-24-2022 ambulatory PASCUAL GODINEZ Facility:[facility] Start: 01-19-2022 End: 01-19-2022 Patient encounter procedure Patricia Le [facility] Start: 01-18-2022 End: 01-18-2022 Patient encounter procedure Patricia Le [facility] Start: 01-10-2022 End: 01-10-2022 ambulatory MICHAEL CHAVEZ Facility:[facility] Start: 01-08-2022 Orders Only Kaylah Barron i, MD Work Phone: Cardiology Comment on above: Atrial fibrillation, unspecified type (HCC) (Primary Dx) Start: 01-08-2022 End: 01-08-2022 Patient encounter procedure Jevonsamra Pantoja [facility] Start: 01-06-2022 End: 01-06-2022 Patient encounter procedure Odalys Rosa MD Work Phone: Cardiology Comment on above: AF (paroxysmal atria l fibrillation) (HCC) (Primary Dx) Start: 01-01-2022 End: 01-01-2022 Patient encounter procedure MOUSTAPHA MELVIN [facility] Start: 12-31-2021 Telephone encounter Odalys Rosa MD Work Phone: Cardiology Comment on above: Hospital Follow Up Start: 12-30-2021 End: 10-19-2022 Recurring Jevon Pantoja [facility] Start: 12-25-2021 Telephone encounter Odalys Rosa MD Work Phone: Cardiology Comment on above: Received Outside Med ical Records Start: 12-24-2021 End: 12-24-2021 Patient encounter procedure Jevon Pantoja [facility] Start: 12-20-2021 End: 12-23-2021 Evaluation and management of inpatient DR MATTHEW ALEXANDRE Facility:[facility] Start: 12-01-2021 End: 12-01-2021 Patient encounter procedure Patricia Pruittmetz [facility] Start: 11-05-2021 End: 11-05-2021 Patient encounter procedure Jevon Pantoja [facility] Start: 10-30-2021 End: 10-30-[address] STACEY BEACH Facility:[facility] Start: 10-20-2021 Refill Odalys Rosa Work Phone: Cardiology Comment on above: Refill Request Start: 10-15-2021 Refill Odalys welch MD Work Phone: [address] [place] [address] Comment on above: Refill Request ([place] olol) Start: 09-15-2021 End: 09-15-2021 Patient encounter procedure Irena COOK [facility] Start: 08-14-2021 Telephone encounter Odalys Rosa MD Work Phone: Cardiology Comment on above: Holding of Eliquis f or EGD Start: 07-27-2021 End: 07-27-2021 Patient encounter procedure Florentino BOLAÑOS [facility] Start: 05-08-2021 End: 08-06-2021 Patient encounter procedure Haris Sutton [facility] Start: 10-11-2017 Ambulatory KB LAZO) [facility] Start: 03-17-2017 End: 04-01-2017 Ambulatory [facility] Start: 11-05-2016 End: 11-30-2016 Ambulatory [facility] Start: 11-04-2016 End: 11-30-2016 Ambulatory [facility] Procedures Date Procedure Procedure Detail Performing Clinician Start: 11-17-2023 Echo transthorc r-t 2d w/wo m-mode rec f-up/lmtd Kaylah Kemp MD Work Phone: Start: 08-29-2023 Radex spine lumbosacral minimum 4 views Alpa Ram DO Work Phone: Start: 06-20-2023 X-ray of lumbar spine, six views including bending views Scarlett Gaviria Work Phone: Start: 06-16-2023 Myocardial spect multiple studies Jacqueline Tamayo APRN.CNP Work Phone: Start: 01-06-2022 Ecg routine ecg w/least 12 lds w/i&r [facility] Provider Start: 12-21-2021 Excision of Stomach, Pylorus, Via Natural or Artificial Opening Endoscopic, Diagnostic DR DAVID KING Start: 12-20-2021 Transfusion of Nonautologous Red Blood Cells into Peripheral Vein, Percutaneous Approach DR DAVID KING Start: 07-27-2021 Colonoscopy Florentino BOLAÑOS Start: 07-09-2021 Excision of bunion Florentino BOLAÑOS Start: 06-03-2021 Arthrocentesis aspir&/inj small jt/bursa w/o us Nghia ROBERSON Start: 12-22-2020 Colonoscopy Odalys Rosa MD Work Phone: Start: 12-22-2020 Colsc flx w/rmvl of tumor polyp lesion snare tq Florentino BOLAÑOS Start: 10-20-2020 Epidural injection of cervical spine using fluoroscopic guidance Florentino BOLAÑOS Comment on above: 20% releif at most Start: 07-28-2020 Radiofrequency ablation of medial branch of lumbar nerve using fluoroscopic guidance Florentino BOLAÑOS Comment on above: 95% relief to present Start: 07-08-2020 Injection of facet joint using fluoroscopic guidance Florentino BOLAÑOS Comment on above: bilat L4/5+L5/S1 MBB- 100% relief x 18 h rs. Start: 06-10-2020 Injection of facet joint using fluoroscopic guidance Florentino BOLAÑOS Comment on above: Bilateral L4-S1- 99% relief x 72 hours Start: 09-27-2018 Transurethral insertion of prostatic urethral lift implant Florentino BOLAÑOS Start: 08-30-2018 Cystoscopy Florentino BOLAÑOS Start: 05-19-2017 Arthrodesis of foot Florentino BOLAÑOS Comment on above: 1. First metatarsophalangeal joint arthr odesis 2. Capsulotomy second metatarsophalangeal joint 3. Removal of spur distal phalanx right second digit 4. Application of below knee posterior splint Start: 03-30-2017 Decompression of median nerve Florentino MORALESRonnie Rao Comment on above: RIGHT CARPAL TUNNEL RELEASE Start: 07-15-2016 Left carpal tunnel release Florentino BOLAÑOS Start: 04-07-2016 EVLT RGSV, phleb. right leg Florentino BOLAÑOS Start: 01-19-2016 Radiofrequency denervation of spinal facet joint of cervical vertebra [facility] Comment on above: right C4-C7 Start: 08-06-2015 Prosthetic arthroplasty of shoulder [facility] Comment on above: left Start: 05-19-2015 Injection of facet joint using fluoroscopic guidance [facility] Comment on above: right C4-C6 Start: 04-04-2015 cervica medial branch block 10 Goodadrienne MORALES Comment on above: right C4-C6 Start: 07-03-2014 Transrectal biopsy of prostate using ultrasound guidance [facility] Start: 05-02-2012 skin lesion of left chest (melanoma) [facility] Start: 08-30-1994 Excision of lumbar intervertebral disc [facility] Comment on above: L5- S1 Appendectomy [facility] Cardiac ablation usi ng fluoroscopy guidance [facility] Colonoscopy [facility] Comment on above: Polyps 2007, 2011 Colonoscopy [facility] Esophagogastroduodenoscopy [facility] Excision of basal cell carcinoma [facility] Comment on above: back left leg, tip of nose, side of nose Hammer toe operation Good Jorje MACK Herniated structure (morphologic abnormality) [facility] Comment on above: right inguinal Plication of left atrial appendage Irena COOK Radiofrequency ablat ion of medial branch of cervical nerve using fluoroscopic guidance [facility] Comment on above: C4,C5,C6 90 % relief sharp pain , but no w with dull, constant ache to R side neck Repair of musculoten dinous cuff of shoulder Florentino BOLAÑOS Comment on above: bilateral x2 each side Tonsillectomy Florentino BOLAÑOS Plan of Treatment Date Care Activity Detail Author Start: 09-09-2030 Urine microalbumin profile DTaP,Tdap,Td Vaccine (3 - Td or Tdap) [facility] Start: 10-10-2026 Diabetes Screening Diabetes Screening [facility] Start: 04-26-2026 Diabetes Screening Diabetes Screening [facility] Start: 05-12-2025 DIABETES SCREEN DIABETES SCREEN [facility] Start: 11-16-2024 BP Controlled (<130/80) BP Controlled (<130/80) [facility] Start: 08-28-2024 BP Controlled (<130/80) BP Controlled (<130/80) [facility] Start: 07-17-2024 End: 07-17-2024 Patient encounter procedure 07/17/2024 1:00 PM EDT Office Visit [facility] [address] [facility] [address] [place] [id number] Adilene Lozano PA [address] [place] [id number] [facility] Start: 07-02-2024 DIABETES SCREEN DIABETES SCREEN [facility] Start: 06-22-2024 BP Controlled (<130/80) BP Controlled (<130/80) [facility] Start: 05-22-2024 ambulatory Ambulatory Facility:[facility] Start: 03-27-2024 End: 03-27-2024 Patient encounter procedure 03/27/2024 11:10 AM EST Procedure Visit [facility] [address] [place] [address] Haris Sutton, DPM FACFAS [address] [place] [address] [facility] Start: 03-07-2024 LIPID SCREEN LIPID SCREEN [facility] Start: 02-16-2024 End: 02-16-2024 Patient encounter procedure 02/16/2024 1:50 PM EDT Office Visit [facility] [address] [place] [phone] Konrad Agustin MD [address] [place] [address] [facility] Start: 02-14-2024 End: 02-14-2024 Admission to same day surgery center 02/14/2024 12:28 PM EDT - 02/14/2024 1:17 PM EDT Surgery Ambulatory Surgery [address] [place] [address] Alpa Ram, DO [address] [place] [address] BLOCK MEDIAL BRANCH LUMBAR WITH C-ARM Ambulatory Surgery Comment on above: BLOCK MEDIAL BRANCH LUMBAR WITH C-ARM Start: 02-14-2024 End: 02-14-2024 Njx dx/ther agt pvrt facet jt lmbr/sac 1 level BLOCK MEDIAL BRANCH LUMBAR WITH C-ARM Lumbar spondylosis 02/14/2024 12:28 PM EDT [facility] Start: 02-14-2024 End: 02-14-2024 Njx dx/ther agt pvrt facet jt lmbr/sac 2nd level BLOCK MEDIAL BRANCH LUMBAR EACH ADDITIONAL VERTEBRA 2 W/IMAGE GUIDANCE FLUORO OR CT Lumbar spondylosis 02/14/2024 12:28 PM EDT [facility] Start: 02-14-2024 Subsequent hospital visit by physician Ambulatory Surgery Comment on above: Lumbar spondylosis [M47.816] Start: 02-09-2024 End: 02-09-2024 Patient encounter procedure 02/09/2024 1:20 PM EDT Office Visit Cardiology [address] [place] [address] [place] [address] [place] [address] return in about 6 months (around ) Cardiology Comment on above: return in about 6 months (around 2023) Start: 01-16-2024 End: 01-16-2024 [facility] Spine Medicine Comment on above: Ordering Provider Via Office or Virtual Visit: 2-4 weeks Start: 01-01-2024 Covid-19 Vaccine ( season) Covid-19 Vaccine ( season) [facility] Start: 01-01-2024 Covid-19 Vaccine () Covid-19 Vaccine () [facility] Start: 01-01-2024 Influenza vaccination Influenza Vaccine (#1) [facility] Start: 12-20-2023 End: 12-20-2023 Admission to same day surgery center Ambulatory Surgery Comment on above: INJECTION(S) STEROID TRANSFORAMINAL EPID URAL W/ IMAGING GUIDANCE LUMBAR Start: 12-20-2023 End: 12-20-2023 Njx anes&/strd w/img tfrml edrl lmbr/sac 1 lvl [facility] Start: 12-20-2023 Subsequent hospital visit by physician Ambulatory Surgery Comment on above: Spinal stenosis, lumbar region, without neurogenic claudication [M48.061] Start: 12-20-2023 End: 12-20-2023 Patient encounter procedure 12/20/2023 7:00 AM EDT Office Visit Pre Admission Testing [address] [place] [address] [facility] Pre Admission Testing Comment on above: [place] Start: 11-17-2023 End: 11-17-2023 Patient encounter procedure 11/17/2023 4:45 PM EDT Office Visit Cardiology [address] [place] [phone] Kaylah Kemp MD [address] [place] [place] [phone] Dx: PAF (paroxysmal atrial fibrillation), Gastrointestinal Cardiology Comment on above: Dx: PAF (paroxysmal atrial fibrillation) , Gastrointestinal Start: 11-17-2023 End: 11-17-2023 Patient encounter procedure Cardiology Comment on above: Dx: PAF (paroxysmal atrial fibrillation) , Gastrointestinal 1 YEAR F/U PER HVI O RDER Start: 11-17-2023 End: 11-17-2023 ambulatory 11/17/2023 1:30 PM EDT Results Only Cardiology [address] [place] [address] Dx: PAF (paroxysmal atrial fibrillation), Gastrointestinal Cardiology Comment on above: Dx: PAF (paroxysmal atrial fibrillation) , Gastrointestinal Start: 11-11-2023 End: 11-11-2023 Patient encounter procedure 11/11/2023 10:30 AM EDT Office Visit Spine Medicine [address] [place] [address] Alpa Ram, DO [address] [place] [address] 2-4 weeks Spine Medicine Comment on above: 2-4 weeks Start: 09-20-2023 End: 09-20-2023 Admission to same day surgery center 09/20/2023 12:41 PM EDT - 09/20/2023 1:30 PM EDT Surgery Ambulatory Surgery [address] [facility] [place] [address] Alpa Ram, DO [address] [place] [address] INJECTION ANESTHETIC AGENT/STEROID TRANSFORAMINAL EPIDURAL W/ IMAGING GUIDANCE LUMBAR BILATERAL Ambulatory Surgery Comment on above: INJECTION ANESTHETIC AGENT/STEROID TRANS FORAMINAL EPIDURAL W/ IMAGING GUIDANCE LUMBAR BILATERAL Start: 09-20-2023 End: 09-20-2023 Njx anes&/strd w/img tfrml edrl lmbr/sac 1 lvl INJECTION ANESTHETIC AGENT/STEROID TRANSFORAMINAL EPIDURAL W/ IMAGING GUIDANCE LUMBAR BILATERAL 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athy 09/20/2023 12:41 PM EDT MEHRE[facility] HARRISON Start: 09-20-2023 Subsequent hospital visit by physician 09/20/2023 12:41 PM EDT Hospital Encounter Ambulatory Surgery [address] [place] [address] Alpa Ram, DO [address] [place] [address] 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athy [M48.061, M54.16] Ambulatory Surgery Comment on above: Spinal stenosis of lumbar region with ra diculopathy [M48.061, M54.16] Start: 09-20-2023 End: 09-20-2023 Admission to same day surgery center 09/20/2023 7:30 AM EDT - 09/20/2023 8:19 AM EDT Surgery Ambulatory Surgery [address] [place] [address] Alpa Ram, DO [address] [place] [address] INJECTION ANESTHETIC AGENT/STEROID TRANSFORAMINAL EPIDURAL W/ IMAGING GUIDANCE LUMBAR BILATERAL Ambulatory Surgery Comment on above: INJECTION ANESTHETIC AGENT/STEROID TRANS FORAMINAL EPIDURAL W/ IMAGING GUIDANCE LUMBAR BILATERAL Start: 09-20-2023 End: 09-20-2023 Njx anes&/strd w/img tfrml edrl lmbr/sac 1 lvl INJECTION ANESTHETIC AGENT/STEROID TRANSFORAMINAL EPIDURAL W/ IMAGING GUIDANCE LUMBAR BILATERAL 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athy 09/20/2023 7:30 AM EDT MEHREEN HARRISON Start: 09-20-2023 Subsequent hospital visit by physician 09/20/2023 7:30 AM EDT Hospital Encounter Ambulatory Surgery [address] [facility] [place] [address] Alpa Ram, DO [address] [place] [address] 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athy [M48.061, M54.16] Ambulatory Surgery Comment on above: Spinal stenosis of lumbar region with ra diculopathy [M48.061, M54.16] Start: 09-20-2023 End: 09-20-2023 Patient encounter procedure 09/20/2023 7:00 AM EDT Office Visit Pre Admission Testing [address] [place] [address] [facility] Pre Admission Testing Comment on above: [facility] Start: 08-23-2023 End: 08-23-2023 Patient encounter procedure 08/23/2023 11:50 AM EDT Procedure Visit [facility] [address] [place] [address] Haris Sutton, DPM FACFAS [address] [place] [address] [facility] Start: 08-16-2023 End: 08-16-2023 Patient encounter procedure 08/16/2023 1:15 PM EDT Office Visit [facility] [address] [place] [phone] Konrad Agustin MD [address] [place] [address] [facility] Start: 07-28-2023 Covid-19 Vaccine ( season) Covid-19 Vaccine () [facility] Start: 06-20-2023 Patient referral [facility] Work Phone: Start: 06-15-2023 End: 07-14-2024 NM Heart Perfusion W stress and W radionuclide IV NM CARDIAC PERF STRESS/PHARM Radiology Routine Atypical chest pain ANDERSEN (dyspnea on exertion) Hyperlipidemia, unspecified hyperlipidemia type Expected: 06/15/2023, Expires: 07/14/2024 [facility] Work Phone: Comment on above: Expected: 06/15/2023, Expires: 5 Start: 06-03-2023 End: 09-02-2023 Lipid 1996 panel - Serum or Plasma LIPID PANEL BASIC Lab Routine Hyperlipidemia, unspecified hyperlipidemia type Expected: 06/03/2023, Expires: 09/02/2023 [facility] Work Phone: Comment on above: Expected: 06/03/2023, Expires: 4 Start: 05-02-2023 Advance Directive Discussion Advance Directive Discussion [facility] Start: 01-06-2023 BP CONTROLLED (<130/80) BP CONTROLLED (<130/80) [facility] Start: 12-31-2022 Influenza vaccination INFLUENZA (#1) [facility] Start: 07-08-2022 BP CONTROLLED (<130/80) BP CONTROLLED (<130/80) [facility] in Start: 05-02-2022 ADVANCE DIRECTIVE DISCUSSION ADVANCE DIRECTIVE DISCUSSION [facility] Start: 04-19-2022 End: 04-18-2023 Basic metabolic 2000 panel - Serum or Plasma BASIC METABOLIC PNL Lab Routine PAF (paroxysmal atrial fibrillation) ([facility]) Expected: 04/19/2022, Expires: 04/18/2023 [facility] Work Phone: Comment on above: Expected: 04/19/2022, Expires: 3 Start: 04-19-2022 End: 04-19-2023 CBC panel - Blood by Automated count CBC Lab Routine PAF (paroxysmal atrial fibrillation) ([facility]) Expected: 04/19/2022, Expires: 04/19/2023 [facility] Work Phone: Comment on above: Expected: 04/19/2022, Expires: 3 Start: 04-19-2022 End: 08-18-2022 SARS-CoV-2 (COVID-19) RNA [Presence] in Respiratory specimen by BOAZ with probe detection INTERMEDIATE RAPID COVID Microbiology Routine PAF (paroxysmal atrial fibrillation) ([facility]) Expected: 04/19/2022, Expires: 08/18/2022 [facility] Work Phone: Comment on above: Expected: 04/19/2022, Expires: 3 Start: 04-19-2022 End: 04-19-2023 TYPE AND SCREEN,30 DAY TYPE AND SCREEN,30 DAY Blood Bank Routine PAF (paroxysmal atrial fibrillation) ([facility]) Expected: 04/19/2022, Expires: 04/19/2023 [facility] Work Phone: Comment on above: Expected: 04/19/2022, Expires: 3 Start: 01-01-2022 End: 03-03-2022 Basic metabolic 2000 panel - Serum or Plasma BASIC METABOLIC PNL Lab Routine PAF (paroxysmal atrial fibrillation) ([facility]) Expected: 01/01/2022, Expires: 03/03/2022 [facility] Work Phone: Comment on above: Expected: 01/01/2022, Expires: 2 Start: 01-01-2022 End: 03-03-2022 CBC panel - Blood by Automated count CBC Lab Routine PAF (paroxysmal atrial fibrillation) (HCC) Expected: 01/01/2022, Expires: 03/03/2022 [facility] Work Phone: Comment on above: Expected: 01/01/2022, Expires: 2 Start: 12-31-2021 Influenza vaccination INFLUENZA (#1) [facility] Start: 12-22-2021 Colonoscopy COLONOSCOPY [facility] Start: 12-22-2021 COLORECTAL CANCER SCREENING COLORECTAL CANCER SCREENING [facility] Start: 07-04-2021 COVID-19 VACCINE (4 - Booster for Pfizer series) COVID-19 VACCINE (4 - Booster for Pfizer series) [facility] Start: 05-02-2021 ADVANCE DIRECTIVE DISCUSSION ADVANCE DIRECTIVE DISCUSSION [facility] Start: 2011 PNEUMOVAX AGE 65 AND OVER WITH 5YR LOOKBACK (#1) PNEUMOVAX AGE 65 AND OVER WITH 5YR LOOKBACK (#1) [facility] Start: 01-28-1996 SHINGRIX VACCINE (1 of 2) SHINGRIX VACCINE (1 of 2) [facility] Start: 1991 COLOGUARD (FIT-DNA) COLOGUARD (FIT-DNA) [facility] Start: [address] COLONOGRAPHY [facility] Start: 1991 FECAL OCCULT BLOOD FECAL OCCULT BLOOD [facility] Start: 1991 SIGMOIDOSCOPY SIGMOIDOSCOPY [facility] Start: 1965 SHINGRIX VACCINE (1 of 2) SHINGRIX VACCINE (1 of 2) [facility] Start: 1964 Urine microalbumin profile DTAP,TDAP,TD (1 - Tdap) [facility] Start: 01-28-1964 ANNUAL PCP TEAM CHRONIC DISEASE VISIT ANNUAL PCP TEAM CHRONIC DISEASE VISIT [facility] Start: 01-28-1964 Anxiety Screening Anxiety Screening [facility] Start: 01-28-1964 BP CONTROLLED (<130/80) BP CONTROLLED (<130/80) [facility] Start: 01-28-1964 HEPATITIS C SCREENING HEPATITIS C SCREENING [facility] Start: 01-28-1964 Hepatitis C screening Hepatitis C Screening [facility] Start: 01-28-1952 PNEUMOCOCCAL: 65+ (1 - PCV) PNEUMOCOCCAL: 65+ (1 - PCV) [facility] Start: 1945 Medicare Annual Wellness (AWV) Medicare Annual Wellness (AWV) [facility] End: 10-02-2024 Basic metabolic 2000 panel - Serum or Plasma BASIC METABOLIC PANEL Lab Routine Visit for monitoring Tikosyn therapy Every 3 months for 4 Occurrences starting 10/03/2023 until 10/02/2024 [facility] Work Phone: Comment on above: Every 3 months for 4 Occurrences startin g 10/03/2023 until 10/02/2024 DXA Skeletal system. axial Views for bone density [facility] ECG COMPLETE ECG COMPLETE ECG 01/06/2022 1:09 PM EDT [facility] End: 01-08-2023 ECG COMPLETE ECG COMPLETE ECG Routine Atrial fibrillation, unspecified type (HCC) 1 Occurrences starting 01/08/2022 until 01/08/2023 [facility] Work Phone: Comment on above: 1 Occurrences starting 01/08/2022 until 01/08/2023 End: 04-19-2023 ECG COMPLETE ECG COMPLETE ECG Routine PAF (paroxysmal atrial fibrillation) (HCC) 1 Occurrences starting 04/19/2022 until 04/19/2023 [facility] Work Phone: Comment on above: 1 Occurrences starting 04/19/2022 until 04/19/2023 End: 06-10-2023 ECG COMPLETE ECG COMPLETE ECG Routine IRB 21-1031 [employer]ATCH[employer] (WATCH RWE) PI: Dr. Marcos Bermudez AF (paroxysmal atrial fibrillation) (HCC) 1 Occurrences starting 06/10/2022 until 06/10/2023 [facility] Work Phone: Comment on above: 1 Occurrences starting 06/10/2022 until 06/10/2023 End: 08-31-2024 ECG COMPLETE ECG COMPLETE ECG Routine Paroxysmal atrial fibrillation (HCC) Chronic diastolic congestive heart failure (HCC) PAF (paroxysmal atrial fibrillation) (HCC) Presence of Watchman left atrial appendage closure device 1 Occurrences starting 09/01/2023 until 08/31/2024 [facility] Work Phone: Comment on above: 1 Occurrences starting 09/01/2023 until 08/31/2024 End: 04-19-2023 ECHO TRANSESOPHAGEAL ECHO TRANSESOPHAGEAL Cardiology Routine PAF (paroxysmal atrial fibrillation) (HCC) 1 Occurrences starting 04/19/2022 until 04/19/2023 [facility] Work Phone: Comment on above: 1 Occurrences starting 04/19/2022 until 04/19/2023 End: 06-10-2023 ECHO TRANSESOPHAGEAL ECHO TRANSESOPHAGEAL Cardiology Routine IRB 21-1031 [employer] (WATCH RWE) PI: Dr. Marcos Bermudez AF (paroxysmal atrial fibrillation) (HCC) 1 Occurrences starting 06/10/2022 until 06/10/2023 [facility] Work Phone: Comment on above: 1 Occurrences starting 06/10/2022 until 06/10/2023 ECHO TRANSESOPHAGEAL ECHO TRANSE SOPHAGEAL Cardiology Routine PAF (paroxysmal atrial fibrillation) (HCC) Ordered: 09/14/2022 [facility] Work Phone: Comment on above: Ordered: 09/14/2022 End: 04-19-2023 Echocardiography ECHO Cardiology Routine PAF (paroxysmal atrial fibrillation) (HCC) 1 Occurrences starting 04/19/2022 until 04/19/2023 [facility] Work Phone: Comment on above: 1 Occurrences starting 04/19/2022 until 04/19/2023 End: 10-02-2024 Magnesium [Mass/volume] in Serum or Plasma MAGNESIUM Lab Routine Visit for monitoring Tikosyn therapy Every 3 months for 4 Occurrences starting 10/03/2023 until 10/02/2024 [facility] Comment on above: Every 3 months for 4 Occurrences startin g 10/03/2023 until 10/02/2024 Njx anes&/strd w/img tfrml edrl lmbr/sac 1 lvl INJECTION(S) STEROID TRANSFORAMINAL EPIDURAL W/ IMAGING GUIDANCE LUMBAR Spinal stenosis, lumbar region, without neurogenic claudication Lumbar radiculopathy [facility] Njx dx/ther agt pvrt facet jt lmbr/sac 1 level BLOCK MEDIAL BRANCH LUMBAR WITH C-ARM Lumbar spondylosis [facility] Njx dx/ther agt pvrt facet jt lmbr/sac 2nd level BLOCK MEDIAL BRANCH LUMBAR EACH ADDITIONAL VERTEBRA 2 W/IMAGE GUIDANCE FLUORO OR CT Lumbar spondylosis [facility] [place] End: 07-14-2024 NM Heart Perfusion W stress and W radionuclide IV NM CARDIAC PERF STRESS/PHARM Radiology Routine Atypical chest pain 1 Occurrences starting 06/15/2023 until 07/14/2024 [facility] Work Phone: Comment on above: 1 Occurrences starting 06/15/2023 until 07/14/2024 Patient referral [facility] Work Phone: SPINE INTERVENTION PROCEDURE SPINE INTERVENTION PROCEDURE Procedures Routine 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athy Ordered: 08/29/2023 [facility] Work Phone: Comment on above: Ordered: 08/29/2023 SPINE INTERVENTION PROCEDURE SPINE INTERVENTION PROCEDURE Procedures Routine 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athy Ordered: 11/11/2023 [facility] Work Phone: Comment on above: Ordered: 11/11/2023 SPINE INTERVENTION PROCEDURE SPINE INTERVENTION PROCEDURE Procedures Routine Lumbar spondylosis Ordered: 01/17/2024 [facility] Work Phone: Comment on above: Ordered: 01/17/2024 [facility] Immunizations Immunization Date Immunization Notes Care Provider Davis chappell 05-14-2023 respiratory syncytia l virus (RSV) vaccine, bivalent (ABRYSVO) Alpa Ram DO Work Phone: [facility] 03-29-2023 influenza (HD-IIV4) vaccine, age 65+ yr, high dose, quadrivalent, PF (FLUZONE HIGH-DOSE) Alpa Ram DO Work Phone: [facility] 03-29-2023 influenza virus vaccine, unspecified formulation Zuhair Beatty [facility] 02-25-2022 influenza (HD-IIV4) vaccine, age 65+ yr, high dose, quadrivalent, PF (FLUZONE HIGH-DOSE) Alpa Ram DO Work Phone: [facility] 02-25-2022 influenza virus vaccine, unspecified formulation Good Kiosked [facility] 02-25-2022 SARS-CoV-2 (COVID-19 ) [id number] Good SALAM [facility] 01-30-2022 influenza virus vaccine, unspecified formulation Jevon Amayaleonard [facility] 09-10-2021 COVID-19 vaccine, unspecified formulation Alpa Ram DO Work Phone: [facility] 09-10-2021 SARS-CoV-2 mRNA (cszzcxknflf-ouar-uandz se) vaccine Good SALRavgen [facility] 03-06-2021 influenza (HD-IIV4) vaccine, age 65+ yr, high dose, quadrivalent, PF (FLUZONE HIGH-DOSE) Alpa Ram DO Work Phone: [facility] 03-06-2021 influenza virus vaccine, unspecified formulation Good SALAM [facility] 03-06-2021 SARS-CoV-2 (COVID-19 ) mRNA BNT-162b2 vax Good SALAM [facility] 03-02-2021 influenza nasal, unspecified formulation Alpa Ram DO Work Phone: [facility] 03-02-2021 influenza virus vaccine, unspecified formulation Good SALAM [facility] 02-08-2021 influenza nasal, unspecified formulation Alpa Ram DO Work Phone: [facility] 02-08-2021 influenza virus vaccine, unspecified formulation Good SALAM [facility] 09-09-2020 diphtheria, tetanus toxoids and pertussis vaccine Alpa Ram DO Work Phone: [facility] 06-27-2020 SARS-CoV-2 (COVID-19 ) Ad26 vaccine, recombinant Good SALAM [facility] 06-03-2020 SARS-CoV-2 (COVID-19 ) Ad26 vaccine, recombinant Good SALAM [facility] 02-21-2020 influenza (HD-IIV4) vaccine, age 65+ yr, high dose, quadrivalent, PF (FLUZONE HIGH-DOSE) Alpa Ram DO Work Phone: [facility] 05-01-2019 zoster vaccine recombinant Good SALAM [facility] 02-20-2019 influenza nasal, unspecified formulation Alpa Ram DO Work Phone: [facility] 02-20-2019 influenza virus vaccine, unspecified formulation Good SALAM [facility] 01-30-2019 influenza nasal, unspecified formulation Alpa Mendis DO Work Phone: [facility] 12-06-2018 zoster vaccine recombinant Good SALAM [facility] 03-08-2018 influenza, high dose seasonal, preservative-free Alpa Mendis DO Work Phone: [facility] 03-17-2017 influenza virus vaccine, unspecified formulation Good SALAM [facility] 03-17-2017 influenza, high dose seasonal, preservative-free Alpa Mendis DO Work Phone: [facility] 01-30-2017 pneumococcal conjuga te vaccine, 13 valent Good SALAM [facility] 11-10-2015 hepatitis A and hepatitis B vaccine Good SALAM [facility] 10-06-2015 hepatitis A and hepatitis B vaccine Good SALAM [facility] 05-01-2015 tetanus toxoid, redu suresh diphtheria toxoid, and acellular pertussis vaccine, adsorbed Good SALAM [facility] 02-04-2015 influenza virus vaccine, unspecified formulation Good SALAM [facility] 02-04-2015 influenza, seasonal, injectable Alpa Ram DO Work Phone: [facility] 02-04-2015 pneumococcal polysaccharide vaccine, 23 valent Good SALAM [facility] 12-04-2009 haemophilus influenz ae type b conjugate and Hepatitis B vaccine Alpa Ram DO Work Phone: [facility] 07-03-2009 haemophilus influenz ae type b conjugate and Hepatitis B vaccine Alpa Ram DO Work Phone: [facility] 07-03-2009 novel [id number], preservative-free, injectable Alpa Ram DO Work Phone: [facility] NEGATED: Highlighted row has not occurred!01-06-2022 influenza virus vaccine, unspecified formulation Good SALAM [facility] Payers Date Payer Category Payer Self-pay [id number] 2023 Medicare [id number] 2015 Unknown MMO MMO MEDICARE SUPPLEMENT [id number] 2015-Present [phone] [address] [place] [address] Indemnity [id number]. [id number] 2015 Unknown [id number] 1.13.159.2.7.3. [id number] 2010 Medicare MEDICARE MEDICAR E A AND B [id number] 2010-Present [phone] [address] [address] [place] [address] Medicare [id number]. [id number] 2010 Medicare [id number]. 1.13.159.2.7.3. [id number] 1959 Medicare [id number] 1959 Unknown [id number] 1946 Unknown [id number] 2.16.840.1.923760.3.579.2.593 1946 Unknown [id number] 2.16.840.1.483363.3.579.2.593 1946 Unknown [id number] 2.16.840.1.226459.3.579.2.593 1946 Unknown [id number] 2.16.840.1.213436.3.579.2.593 1946 Unknown [id number] 2.16.840.1.911900.3.579.2.593 1946 Unknown [id number] 2.16.840.1.611857.3.579.2.593 1946 Unknown [id number] 2.16.840.1.612135.3.579.2.72 1946 Unknown [id number] 2.16.840.1.816517.3.579.2.72 1946 Unknown [id number] 2.16.840.1.992646.3.579.2.72 1946 Unknown [id number] 2.16.840.1.940266.3.579.2.72 1946 Unknown [id number] 2.16.840.1.019605.3.579.2.72 1946 Unknown [id number] 2.16.840.1.085015.3.579.2.72 1946 Unknown [id number] 2.16.840.1.209645.3.579.2.72 1946 Unknown [id number] 2.16.840.1.397161.3.579.2.72 1946 Unknown [id number] 2.16.840.1.672498.3.579.2.72 1946 Unknown [id number] 2.16.840.1.241785.3.579.2.72 1946 Unknown [id number] 2.16.840.1.876506.3.579.2.72 1946 Unknown [id number] 2.16.840.1.062386.3.579.2.72 1946 Unknown [id number] 2.16.840.1.039488.3.579.2.72 1946 Unknown [id number] 2.16.840.1.783612.3.579.2.72 1946 Unknown [id number] 2.16.840.1.625789.3.579.2.726 Unknown [id number] 2.16.840.1.583595.3.579.2.727 1946 Unknown [id number] 2.16.840.1.654111.3.579.2.727 1946 Unknown [id number] 2.16.840.1.723808.3.579.2.1259 1946 Unknown [id number] 2.16.840.1.238178.3.579.2.1259 1946 Unknown [id number] 2.16.840.1.306855.3.579.2.125 1946 Unknown [id number] 2.16.840.1.734076.3.579.2.1259 1946 Unknown [id number] 2.16.840.1.467799.3.579.2.1258 1946 Unknown [id number] 2.16.840.1.040222.3.579.2.1259 1946 Unknown [id number] 2.16.840.1.415884.3.579.2.125 1946 Unknown [id number] 2.16.840.1.536605.3.579.2.1259 1946 Unknown [id number] 2.16.840.1.745426.3.579.2.1259 Unknown [id number] 2.16.840.1.571945.3.579.2.531 Social History Date Type Detail Facility Start: 07-15-2021 End: 12-01-2023 Tobacco smoking status Ex-smoker (finding) [facility] Start: 09-14-2022 End: 01-31-2024 Sex Assigned At Male [facility] Start: 01-15-1963 End: 1986 History of tobacco use Current smoker [facility] Start: [birth year]15-1963 End: 1986 History of tobacco use Cigarette Smoker [facility] Start: 09-01-2011 End: 01-31-2024 Cigarettes smoked current (pack per day) - Reported 1.5 [facility] Start: 09-01-2011 End: 05-18-2022 Tobacco use and exposure Smokeless tobacco non-user [facility] Start: 09-10-2020 End: 01-31-2024 Alcohol intake Current drinker of alcohol (finding) [facility] Start: 09-01-2016 History SDOH Alcohol Comment has an occasional drink, previously drank 2-3 per day [facility] Start: 02-27-2020 History SDOH Financial 5 [facility] Start: 02-27-2020 History SDOH Food Worry 1 [facility] Start: 02-27-2020 History SDOH Transport Med 2 [facility] Start: 02-27-2020 Education 17 [facility] Start: 1945 Sex Assigned At Not on file [facility] Start: 1945 Sex Assigned At Male F [facility] Tobacco smoking status Never [facility] Start: 04-12-2022 Gender identity Identifies as male gender (finding) [facility] Start: 04-12-2022 Sexual orientation Heterosexual (valentina cordero) [facility] (I/We) worried whether (my/our) food would run out before (I/we) got money to buy more. Never true [facility] Start: 11-15-2022 Tobacco smoking status NHIS Tobacco smoking consumption unknown [facility] Start: 04-04-2023 End: 06-14-2023 Alcohol intake Defer [facility] Start: 11-14-2022 Sexual orientation Choose not to dis close [facility] How often to you hav e a drink containing alcohol? Monthly or less [facility] How many standard drinks containing alcohol do you have on a typical day? 1 or 2 [facility] How often do you hav e 6 or more drinks on 1 occasion? Never [facility] NEGATED: Highlighted rowStart: MALKAF History of tobacco use Passive smoker [facility] Medical Equipment Procedure Code Equipment Code Equipment Origin al Text Equipment Identifier Dates Cement Simplex P Tobramycin Bone Full Dose Radiopaque Preblend Sterile - [id number] Start: 08-06-2015 Comment on above: Description: Simplex P antibiotic bone cement with Tobramycin Cement Simplex P Tobramycin Bone Full Dose Radiopaque Preblend Sterile - [id number] Start: 09-08-2016 Baseplate 15mm Trabecular Metal Glenoid Reverse Sterile Shoulder - [id number] Start: 08-06-2015 Comment on above: Description: trabecu lar metal reverse shoulder system Sphere 36mm Trabecular Metal Polyethylene Glenoid Reverse Sterile Shoulder - [id number] Start: 08-06-2015 Comment on above: Description: Lucia trabecular metal reverse shoulder glenosphere Stem 14mm 3 Trabecular Metal Tivanium 130mm Humeral Reverse Sterile - [id number] Start: 08-06-2015 Sphere 36mm Trabecular Metal Polyethylene Glenoid Reverse Sterile Shoulder - [id number] Start: 09-08-2016 Baseplate 15mm Trabecular Metal Glenoid Reverse Sterile Shoulder - [id number] Start: 09-08-2016 Stem 14mm 3 Trabecular Metal Tivanium 130mm Humeral Reverse Sterile - [id number] Start: 09-08-2016 Restrictor Latit ude 8-15mm Cement Elbow - [id number] Start: 08-06-2015 Comment on above: Description: Cement restrictor Liner 36mm 7d Standard Offset Trabecular Metal Polyethylene 6+ Mm Shoulder - [id number] Start: 08-06-2015 Comment on above: Description: reverse shoulder poly liner Restrictor Latit ude 8-15mm Cement Elbow - [id number] Start: 09-08-2016 Liner 36mm 7d Standard Offset Trabecular Metal Polyethylene 6+ Mm Shoulder - [id number] Start: 09-08-2016 Screw Ncb Anatom ical Shoulder 4.5mm Protasul-64wf 36mm Bone Inverse Reverse - [id number] Start: 08-06-2015 Comment on above: Description: inverse -reverse screw Screw Ncb Anatom ical Shoulder 4.5mm Protasul-64wf 36mm Bone Inverse Reverse - [id number] Start: 08-06-2015 Comment on above: Description: inverse -reverse screw system Screw Ncb Anatom ical Shoulder 4.5mm Protasul-64wf 36mm Bone Inverse Reverse - [id number] Start: 09-08-2016 Screw Ncb Anatom ical Shoulder 4.5mm Protasul-64wf 42mm Bone Inverse Reverse - [id number] Start: 09-08-2016 Goals Date Patient Goal Desired Activity /State Personal health goal Functional Status Date Assessment Result Facility 11-01-2023 Functional Status N/A [facility] 06-24-2023 Functional Status N/A [facility] 02-02-2023 Functional Status N/A [facility] 07-27-2022 Functional Status N/A [facility] 07-15-2022 Functional Status N/A [facility] 01-26-2022 Functional Status N/A [facility] 01-06-2022 Functional Status N/A [facility] 12-01-2021 Functional Status N/A [facility] Clinical Notes 07-27-2021 to 01-26-2024 Alpa Ram DO - 01/16/2024 4:27 PM EDTTelephone Encounter - Tremaine Joseph RN - 12/30/2023 9:35 AM EDTTelephone Encounter - Tremaine Joseph RN - 12/30/2023 9:35 AM EDTLaboratory Note Date & Type Note Facility 01-26-2024 Note Attestation signed by Olimpia Rios MD at 01/26/2024 4:16 PM By using the attestations below, the signing clinician agrees that I have read and verify that the documentation has been personally reviewed by me and ensure that the documentation accurately reflects the encounter. GC: I personally saw this patient on the day of the encounter, performed the uribe portion(s) of the service and participated in the management and confirm the resident's documentation. Please note there may be an additional personal documentation from me. Additional Comments: Orthopedic Surgery Subjective Follow-up of the Left Wrist Irena Peraza Jr. is a 78 y.o. RHD with past medical history of multiple year left wrist pain in the setting of advanced wrist arthritis. He presents today for new complaint of left wrist mass that has been present for approximately 6 months. He states that it has slowly grown in size and has become symptomatic with activities. Denies any discoloration or pulsation overlying the mass. Denies any numbness or tingling to the left hand. Regarding his left wrist arthritis, he has undergone treatment in the past with a cortisone injection to the wrist joint which provided him with 2 to 3 months of relief. He also uses a brace intermittently. He has been treated as per Dr. Castellon for benign fibrous lesion of the left radius. Of note, patient also has history of melanoma of the left chest/axilla that required multiple prior surgical interventions. He also has history of multiple prior basal cell/squamous cell skin cancers that required procedural intervention. Patient is also medicated on Eliquis for cardiac issues. Patient History Past Surgical History: Procedure Laterality Date FOOT SURGERY N/A PROSTATE SURGERY N/A SHOULDER SURGERY N/A History reviewed. No pertinent past medical history. Objective General: Body mass index is 29.41 kg/m???. No acute distress, comfortable Respiratory: Unlabored breathing with normal rate, no cough Cardiovascular: Warm well perfused extremities Psych: Appropriate mood behavior MSK: Examination of his left wrist revealed that there was some swelling to the region. There is a palpable mass evident at the volar radial aspect of the distal radius. This is tender to palpation. The mass is mobile with somewhat ill-defined borders. No discoloration or pulsations seen on exam. He was tender to the radiocarpal joint region as well as ulnar fovea. Range of motion was limited. He was able make a complete fist. He is able to demonstrate 50 degrees extension and 40 degrees flexion. Full pronosupination. Imaging: Radiographs of the left wrist were performed today and reviewed which demonstrates: advanced degenerative joint disease involving the radiocarpal midcarpal and distal radioulnar joint with almost complete loss of the joint space. No acute osseous normalities noted compared to prior imaging studies. Assessment/Plan Irena Peraza Jr. is a 78 y.o.male with history of advanced left wrist arthritis who presents with chief complaint of left wrist mass that has been present for approximately 6 months. -Will obtain MRI of the left wrist with contrast - Follow-up after completion of above imaging studies - Call office with any questions or concerns - In the interim, weightbearing as tolerated to left upper extremity Vaughn Miranda MD Orthopedic Surgery, PGY-3 Pager: [phone] 01/26/24 11:35 AM By using the attestations below, the signing clinician agrees that I have read and verify that the documentation has been personally reviewed by me and ensure that the documentation accurately reflects the encounter. GC: I personally saw this patient on the day of the encounter, performed the uribe portion(s) of the service and participated in the management and confirm the resident's documentation. Please note there may be an additional personal documentation from me. [facility] 01-16-2024 Note HNO ID: [id number] Author: ALPA RAM, DO Service: ? Author Type: Physician Type: Progress Notes Filed: 01/17/2024 17:27 Note Text: [facility] Neurological [facility] - Medical Spine Established Patient DISTANCE HEALTH VISIT This Team Access Model visit is a virtual encounter. It required patient-provider interaction for the medical decision making as documented below. I have communicated my name and active licensure. The patient's identity and physical location were verified at the time of this visit. Irena Peraza has consented to this telephone or audio/video encounter. Persons Present: patient SUBJECTIVE HISTORY OF PRESENT ILLNESS: Irena Peraza is a 78 year old male who presents for f/u of low back pain. Last visit: Lyrica refilled and patient will try to wean down, repeat BL L5-S1 TFESI ordered, cont PT HEP as tolerated. Patient is s/p repeat BL L5-S1 TFESI. Before the procedure his pain was getting up to 8/10. Pain is now 0-2/10. He has been able to sit prolonged to mow the lawn without aggravating the pain. The residual pain is in the midline low back and to the left further than right at the belt line, les. No longer having pain radiating down the legs. He can still get the brief lightning bolt type pain with certain movements. Still notices numbness in left worse than right foot and in the morning he has 75% decreased sensation in the left foot when washing in the shower. Initial visit 06/22/23: Reports low back pain for at least 30+ years, had L5-S1 discectomy in . Pain fluctuates on and off for a long time. Recently says his pain is now in the low back and buttock, some along the sacral region as well, worse with standing. Worst pain is midline lumbosacral region. Reports tingling and pain down the left > right leg, down the posterior thigh and leg, all the way to the foot. Denies weakness. Denies bowel/bladder incontinence or saddle anesthesia. The pain is currently 3/10. The pain can get to 8/10 at the highest. 08/29/23: Patient has attended PT with little relief. With PT he has been able to find positions to bring the pain down, but with movement or certain positions he continues to have pain. Taking Gabapentin with some benefit, but causes dry mouth. He continues to have pain in the lumbosacral back midline, like a knife. He gets radiating pain and numbness down the LLE posteriorly to the foot. Significant numbness left foot diffusely when taking a shower. Less numbness in right foot. Sometimes feels like legs might buckle with pain. Pain is 3-4/10 while sitting, but with movement it can go up to 10/10, described as a bolt of lightning . 11/11/23: Patient underwent BL L5-S1 TFESI and had 100% relief of all related pain for 2 weeks, but then the pain began returning and is now down to 20% relief for the low back, but he continues to have significant relief in the legs. Low back pain is midline lumbosacral region. He does still get intermittent radiating pain down the LLE posteriorly to the foot, lasts 5-30 seconds. Gets this much less often in the RLE. This radiating type pain is less frequent and less severe since the injections, it was 7-10/10 prior and is now 2-3/10 typically, occasionally up to 5/10. Pain is not as bothersome in the buttocks now. Gets numbness in the left foot starting his morning, less in right foot. Has not had any recent knee buckling type feeling as a result of pain. Pain is now down to 1/10 in the low back currently while sitting, but gets up to 3-6/10 intermittently with movement throughout the day. He is taking Lyrica 50 mg TID. He has not directly noted side effects, but does not he feels fatigue and lack of energy/motivation. He notes he has a lot to do, but feels like he chooses to take naps and avoid his tasks too often. PAIN EVALUATION 01/16/2024 1307 Pain Level: 5 Pain Location: Back-Lower Description: Numbness;Raw;Sharp;Tingling Duration Amount of Time: 3 Duration Units: Minutes Frequency: Intermittent Intervention/Comfort measure: Medication;Relaxation;Cold;Massage ;Positioning Comments: coms and goes Pain Radiation: As above Aggravating Factors: Standing, leaning forward Transfers Alleviating Factors: Stretching Sitting Child's pose Pain Ratio: midline lumbosacral back Current Treatment: Medications Tylenol 650mg 2 pills PRN Cymbalta 60mg Therapies PT HEP 3 times per week PT: [facility], aRchell Gilliam PT, 06/28-08/26/23, 8 visits, discharged by therapist due to no progress. PT reports sharp pain w/ movement b/w static postures indicating spinal instability. Pain w/ transfers up to 8-9/10, subsides after 30-60 seconds down to 4/10. Positions are variable, prone postures sometimes relieve, sometimes worsen. Laying prone w/ pillow under hips is consistent, but transferring to prone can be pro (more content not included)... [facility] 01-16-2024 History of Present illness Narrative Images from the original note were not included. [facility] - Medical Spine Established Patient DISTANCE HEALTH VISIT This Team Access Model visit is a virtual encounter. It required patient-provider interaction for the medical decision making as documented below. I have communicated my name and active licensure. The patient's identity and physical location were verified at the time of this visit. Irena Peraza has consented to this telephone or audio/video encounter. Persons Present: patient SUBJECTIVE HISTORY OF PRESENT ILLNESS: Irena Peraza is a 78 year old male who presents for f/u of low back pain. Last visit: Lyrica refilled and patient will try to wean down, repeat BL L5-S1 TFESI ordered, cont PT HEP as tolerated. Patient is s/p repeat BL L5-S1 TFESI. Before the procedure his pain was getting up to 8/10. Pain is now 0-2/10. He has been able to sit prolonged to mow the lawn without aggravating the pain. The residual pain is in the midline low back and to the left further than right at the belt line, les. No longer having pain radiating down the legs. He can still get the brief lightning bolt type pain with certain movements. Still notices numbness in left worse than right foot and in the morning he has 75% decreased sensation in the left foot when washing in the shower. Initial visit 06/22/23: Reports low back pain for at least 30+ years, had L5-S1 discectomy in . Pain fluctuates on and off for a long time. Recently says his pain is now in the low back and buttock, some along the sacral region as well, worse with standing. Worst pain is midline lumbosacral region. Reports tingling and pain down the left > right leg, down the posterior thigh and leg, all the way to the foot. Denies weakness. Denies bowel/bladder incontinence or saddle anesthesia. The pain is currently 3/10. The pain can get to 8/10 at the highest. 08/29/23: Patient has attended PT with little relief. With PT he has been able to find positions to bring the pain down, but with movement or certain positions he continues to have pain. Taking Gabapentin with some benefit, but causes dry mouth. He continues to have pain in the lumbosacral back midline, like a knife. He gets radiating pain and numbness down the LLE posteriorly to the foot. Significant numbness left foot diffusely when taking a shower. Less numbness in right foot. Sometimes feels like legs might buckle with pain. Pain is 3-4/10 while sitting, but with movement it can go up to 10/10, described as a bolt of lightning . 11/11/23: Patient underwent BL L5-S1 TFESI and had 100% relief of all related pain for 2 weeks, but then the pain began returning and is now down to 20% relief for the low back, but he continues to have significant relief in the legs. Low back pain is midline lumbosacral region. He does still get intermittent radiating pain down the LLE posteriorly to the foot, lasts 5-30 seconds. Gets this much less often in the RLE. This radiating type pain is less frequent and less severe since the injections, it was 7-10/10 prior and is now 2-3/10 typically, occasionally up to 5/10. Pain is not as bothersome in the buttocks now. Gets numbness in the left foot starting his morning, less in right foot. Has not had any recent knee buckling type feeling as a result of pain. Pain is now down to 1/10 in the low back currently while sitting, but gets up to 3-6/10 intermittently with movement throughout the day. He is taking Lyrica 50 mg TID. He has not directly noted side effects, but does not he feels fatigue and lack of energy/motivation. He notes he has a lot to do, but feels like he chooses to take naps and avoid his tasks too often. PAIN EVALUATION 01/16/2024 1307 Pain Level: 5 Pain Location: Back-Lower Description: Numbness;Raw;Sharp;Tingling Duration Amount of Time: 3 Duration Units: Minutes Frequency: Intermittent Intervention/Comfort measure: Medication;Relaxation;Cold;Massage ;Positioning Comments: coms and goes Pain Radiation: As above Aggravating Factors: Standing, leaning forward Transfers Alleviating Factors: Stretching Sitting Child's pose Pain Ratio: midline lumbosacral back Current Treatment: Medications Tylenol 650mg 2 pills PRN Cymbalta 60mg Therapies PT HEP 3 times per week PT: [facility], Rachell Gilliam PT, 06/28-08/26/23, 8 visits, discharged by therapist due to no progress. PT reports sharp pain w/ movement b/w static postures indicating spinal instability. Pain w/ transfers up to 8-9/10, subsides after 30-60 seconds down to 4/10. Positions are variable, prone postures sometimes relieve, sometimes worsen. Laying prone w/ pillow under hips is consistent, but transferring to prone can be provoking. Sxs include central back pain, n/t thighs, LLE down to foot, occasionally toes. Pain with initial extension then improves w/ repeat, tolerates prone press up minimal pain and no peripheralization. Prior Treatment: Medications Gabapentin 300 mg TID - mild benefit, causing dry mouth and mild increase in chronic BLE edema Lyrica 50 mg TID - noted fatigue, lack of energy/motivation Therapies Acupuncture for the neck Prior spine interventions: -12/20/23 Dr. Ram: BL L5-S1 TFESI - pain immediately decreased from 8/10 down to 3/10 and continued to improve to 0-2/10; on 01/16/24 f/u he noted continued 40% improvement. -09/20/23 Dr. Ram: BL L5-S1 TFESI - 100% relief of all related pain for 2 weeks, on 11/11/23 reported low back pain remains 20% improved with pain ranging 1-6/10, while LE pain is now 2-3/10, at worst 5/10, compared to 7-10/10 before injections. -RFA he thinks was done in the neck, maybe 5 years ago at [facility] -4-5 years ago he recalls having lumbar spine injections Prior spine surgery: L5-S1 discectomy in Previously treated by: -Recently seen by PA working with Spine Surgeon Dr. Al Wiley in [place] and was planning [facility] PT. -Spine Medicine Dr. Bellamy. 2019 for cervical spine. Has had RFA locally and can pursue that. Try ROM exercises. Trial of Acupuncture for pain. PMH: PUD, GERD Afib s/p Watchman procedure, off Eliquis now CHF COPD h/o cancer: Melanoma PSH: PAST SURGICAL HISTORY Procedure Laterality Date APPENDECTOMY HX BACK SURGERY HX L5, S1 removed CARDIAC CATH 03/26/13 40-50% disease in mid LAD CARDIOVERSION 11/14/15 CATHETER, ABLATION A-Fib, 2003 at [facility] HERNIA REPAIR HX 05/2011 left inguinal PAST SURGICAL HISTORY OF skin cancer removed from back, and from leg, nose,; also cyst removed PAST SURGICAL HISTORY OF 2013 Melanoma removed from left breast. PAST SURGICAL HISTORY OF 2012 bilateral cataract removal PAST SURGICAL HISTORY OF Left carpal tunnel release PAST SURGICAL HISTORY OF Right 2017 varicose vein surgery ROTATOR CUFF REPAIR x4 (2 on each shoulder) SHOULDER LEFT OUT PT SURGERY 08/2015 reverse total shoulder TONSILLECTOMY HX Social Tobacco: Former smoker Personal life: daughter is a dentist, son is a nurse Occupation: Retired Litigation: No Workers' Compensation: No YELLOW & BLUE FLAGS No-Neg Attitude; Back Pain is Disabling No-Avoiding Activity (for Fear of Pain) No-Depression or Anxiety Disorders No-Social Problems No-Substance Use Disorder No-Job Dissatisfaction No-Financial Disincentives Patient Entered Questionnaires 08/28/2023 11/09/2023 01/16/2024 Spine Questions Pain Location: Lower back Lower back Lower back Pain Duration: 1 to 5 years Pain over last 6 months: Every day or nearly every day in the past 6 months Symptoms from neck/cervical spine: No No Yes Employment Status: Retired Retired Involved in law suit/legal claim: No 08/28/2023 01/16/2024 Spine Red Flags Any type of cancer: Yes Yes Unexplained fever: No No Bowel or bladder disfunction: No No Unintentional weight loss: No No Osteoporosis: Yes Yes 01/16/2024 Neck Questionnaires Benzel Modified DANIEL Score 16 (Mild Myelopathy Symptoms) PROMIS Score Percentiles 08/28/2023 11/09/2023 01/16/2024 Physical Health Physical Function Percentile 7 12 8 Sleep Percentile 27* 54 38 Fatigue Percentile 4 4 1 Pain Interference Percentile 4 54 10 08/28/2023 11/09/2023 01/16/2024 PROMIS SOCIAL ROLE SCORE Social Role Satisfaction Percentile 24* 10 7 02/10/2017 08/28/2023 01/16/2024 PROMIS Global Health Scale Physical Health Percentile 22* 4 10 Mental Health Percentile 26* 13 5 Percentiles provide an indication of how the patient's score ranks in relation to the general population. Higher percentile rankings indicate better function/quality of life. 50th percentile is the average of the general population and indicates half of respondents had a worse score. Depression Screenin08/28/2023 11/09/2023 01/16/2024 PHQ-9 Score 10 15 11 01/16/2024 11/09/2023 08/28/2023 PHQ-9 Self Harm Question 9 Not at all Not at all Not at all PHQ-9 Self-Harm (Item 9) response options: 0 Not at all 1 Several days 2 More than half the days 3 Nearly every day PHQ-9 Levels: 0-4 No - mild depression 5-9 Mild depression 10-14 Moderate depression 15-19 Moderately severe depression 20-27 Severe depression ACTIVE PROBLEM LIST Paf (Paroxysmal Atrial Fibrillation) (Hcc) Former Smoker Obstructive Lung Disease (Hcc) Hyperlipemia Pud (Peptic Ulcer Disease) Gerd (Gastroesophageal Reflux Disease) Carpal Tunnel Syndrome Hx of Neck Disorder Rotator Cuff Tear Arthritis Depression Alcohol Use Lprd (Laryngopharyngeal Reflux Disease) Chronic Throat Clearing Biceps Rupture, Proximal Contracture of Shoulder Rotator Cuff Tear Arthropathy Complete Tear of Left Rotator Cuff Melanoma (Hcc) Htn (Hypertension), Benign Cervical Spine Pain Osteoarthritis Limitation of Joint Motion of Shoulder Acute On Chronic Diastolic Congestive Heart Failure (Hcc) Chronic Diastolic Congestive Heart Failure (Hcc) Right Shoulder Pain Stiffness of Shoulder Joint Weakness of Shoulder Obesity, Class I, Bmi 30-34.9 Persistent Atrial Fibrillation (Hcc) Visit for Monitoring Tikosyn Therapy Gastrointestinal Hemorrhage IRB [id number] WATCHAMAN FLX Real World Evidence (WATCH RWE) PI: Dr. Marcos Bermudez Atrial Fibrillation (Hcc) Low Back Pain, Unspecified Spinal Stenosis of Lumbar Region With Radiculopathy Lumbar Radiculopathy PAST MEDICAL HISTORY Diagnosis Date Arthritis CAD (coronary artery disease) 03/26/2013 40-50% mid LAD Carpal tunnel syndrome Cervical spine pain COPD (chronic obstructive pulmonary disease) (HCC) Depression Diastolic heart failure (HCC) GERD (gastroesophageal reflux disease) HTN (hypertension), benign patient denies this Hypercholesterolemia Hyperlipemia Left atrial dilatation Melanoma (HCC) 2012 left breast melanoma s/p surgery. Obstructive lung disease (HCC) PAF (paroxysmal atrial fibrillation) (HCC) 2003 s/p ablation 2003 PUD (peptic ulcer disease) remote RLS (restless legs syndrome) Rotator cuff tear x2 each shoulder PAST SURGICAL HISTORY Procedure Laterality Date APPENDECTOMY HX BACK SURGERY HX L5, S1 removed CARDIAC CATH 03/26/13 40-50% disease in mid LAD CARDIOVERSION 11/14/15 CATHETER, ABLATION A-Fib, 2003 at [facility] HERNIA REPAIR HX 05/2011 left inguinal PAST SURGICAL HISTORY OF skin cancer removed from back, and from leg, nose,; also cyst removed PAST SURGICAL HISTORY OF 2013 Melanoma removed from left breast. PAST SURGICAL HISTORY OF 2012 bilateral cataract removal PAST SURGICAL HISTORY OF Left carpal tunnel release PAST SURGICAL HISTORY OF Right 2017 varicose vein surgery ROTATOR CUFF REPAIR x4 (2 on each shoulder) SHOULDER LEFT OUT PT SURGERY 08/2015 reverse total shoulder TONSILLECTOMY HX Social History Tobacco Use Smoking status: Former Current packs/day: 0.00 Average packs/day: 1.5 packs/day for 15.0 years (22.5 ttl pk-yrs) Types: Cigarettes Start date: 05/02/1970 Quit date: 05/02/1985 Years since quittin.7 Smokeless tobacco: Never Substance Use Topics Alcohol use: Yes Alcohol/week: 10.0 standard drinks of alcohol Types: 10 Standard drinks or equivalent per week Comment: has an occasional drink, previously drank 2-3 per day Drug use: No FAMILY HISTORY Problem Relation Age of Onset other (TB) Mother age 78, Tuberculosis, of natural causes Heart Father s/p AVR Coronary Artery Disease Sister s/p CABG x3 No Known Problems Sister No Known Problems Brother No Known Problems Maternal Grandmother No Known Problems Maternal Grandfather No Known Problems Paternal Grandmother No Known Problems Paternal Grandfather No Known Problems Daughter No Known Problems Daughter No Known Problems Son Heart Grandchild Shone disease; at age 6 days old ALLERGIES No Known Allergies CURRENT MEDICATIONS: pregabalin (LYRICA) 50 mg capsule Take 1 capsule by mouth two times a day for 30 days. furosemide (LASIX) 20 mg tablet Take 1 tablet by mouth once daily. atenolol (TENORMIN) 50 mg tablet Take 1 tablet by mouth once daily. dofetilide (TIKOSYN) 500 mcg capsule Take 1 capsule by mouth two times a day. omega-3/dha/epa/fish oil (OMEGA-3 ORAL) Take by mouth. atorvastatin (LIPITOR) 40 mg tablet take 1 tablet by mouth once daily acetaminophen 650 mg CR tablet Every 12 hours amoxicillin (AMOXIL) 500 mg capsule TAKE 2 CAPSULES BY MOUTH now then TAKE 1 CAPSULE BY MOUTH EVERY 6 HOURS UNTIL GONE ketoconazole (NIZORAL) 2 % cream DULoxetine (CYMBALTA) 60 mg capsule Take 1 capsule by mouth every afternoon. fluticasone-vilanterol (BREO ELLIPTA) 100-25 mcg/dose inhaler INHALE 1 PUFF BY MOUTH DAILY omega-3 acid ethyl esters (LOVAZA) 1 gram capsule Take 1,000 mg by mouth. ADVAIR DISKUS 100-50 mcg/dose inhaler Inhale as instructed two times a day. tolterodine ER (DETROL LA) 4 mg 24 hr capsule Take 4 mg by mouth once daily. aspirin, enteric coated (ECOTRIN LOW STRENGTH) 81 mg EC tablet Take 1 tablet by mouth once daily. Fenofibrate (LOFIBRA) 160 mg tablet TAKE 1 TABLET ONCE DAILY cholecalciferol, vitamin D3, (VITAMIN D3 ORAL) Take by mouth. magnesium oxide (MAG-OX) 400 mg (241.3 mg magnesium) tablet Take 1 tablet by mouth once daily. omeprazole (PRILOSEC) 40 mg capsule Take 40 mg by mouth once daily. rOPINIRole (REQUIP) 1 mg tablet Take 1 tablet by mouth daily at bedtime. montelukast (SINGULAIR) 10 mg tablet montelukast 10 mg tablet allopurinol (ZYLOPRIM) 100 mg tablet Take 100 mg by mouth once daily. PROCTOZONE-HC 2.5 % rectal cream APPLY TO THE AFFECTED AREA(S) 2-4 times daily fluticasone (FLONASE) 50 mcg/actuation nasal spray Use 1 [place] in each nostril once daily. coenzyme Q10 100 mg cap Take 100 mg by mouth once daily. albuterol HFA (PROAIR HFA) 90 mcg/actuation inhaler Inhale 2 Puffs as instructed every 6 hours as needed. Emaxzzltiyy-Qibyjhdep-Trn C-Mn 500-400 mg cap Take 1 capsule by mouth twice daily. REVIEW OF SYSTEMS: 14 systems reviewed and otherwise negative unless mentioned above. OBJECTIVE: PHYSICAL EXAM There were no vitals taken for this visit. GENERAL APPEARANCE: Well nourished, well developed, and no apparent distress. NEURO PSYCH: Patient oriented to person, place, and time. Mood pleasant. Benign affect. Speech: clear, calm, normal rate and tone RESPIRATORY: non-labored breathing, no grunting/flaring/retractions SKIN: No apparent lesions head/neck Data Review: All images/reports listed below were personally reviewed by me unless otherwise indicated. [facility] and Outside records independently reviewed Images independently reviewed with the patient 08/29/23 XR lumbar: Vertebral bodies have normal height and contour. There is no compression deformity or acute bony abnormality identified. Slight dextrocurvature at L2-3 The is grade I retrolisthesis at L2-3. The is grade I anterolisthesis at L4-5. Mild multilevel lumbar disc space narrowing. Moderate multilevel lumbar facet arthrosis Alignment appears stable in flexion and extension. There are bilateral sacroiliac joint and hip degenerative changes partially visualized on this study. There is atherosclerotic disease in the abdominal aorta. 05/20/2023 MRI lumbar spine with and without contrast, Hernandez Evangeline: The spine is visualized and T11-12 through S2 on the diagnostic sagittal sequences. Lumbar lordosis is maintained. Anterolisthesis of L4 over L5 approximately 7 to 8 mm, similar to the prior studies. Vertebral body heights and remaining alignment are within normal limits. Minimal degenerative endplate changes. No abnormal bone marrow enhancement identified. The conus is within normal limits of signal intensity and morphology. Small renal cyst that do not require further imaging follow-up. Paraspinal soft tissues are otherwise unremarkable. No abnormal enhancement identified. T11-12: Moderate disc space narrowing, mild posterior lateral endplate osteophytosis with associated broad-based disc protrusion/bulging and moderate to marked hypertrophic facet and ligamentum flavum changes which results in borderline central spinal stenosis and moderate to marked neuroforaminal narrowing. T12-L1: Mild hypertrophic facet and ligamentum flavum changes without central spinal stenosis neuroforaminal narrowing or discrete disc protrusion. L1-2: Borderline to minimal disc base narrowing mild posterior lateral endplate osteophytosis without associated broad-based disc protrusion/bulging and mild hypertrophic facet and ligamentum flavum changes without central spinal stenosis or neural foraminal narrowing. L2-3: Mild posterior lateral endplate osteophytosis with associated broad-based disc protrusion/bulging and mild hypertrophic facet and ligamentum flavum changes without central spinal stenosis or neuroforaminal narrowing. L3-4: Borderline to minimal disc base narrowing, mild to moderate posterior lateral endplate osteophytosis with associated broad-based disc protrusion/bulging and moderate hypertrophic facet and ligamentum flavum changes which results in moderate central spinal stenosis and neuroforaminal narrowing. L4-5: Grade 1 anterolisthesis, mild to moderate to space narrowing, moderate diffuse disc bulging and marked hypertrophic facet and ligamentum flavum changes which results in moderate to marked central spinal stenosis and neuroforaminal narrowing. L5-S1: Moderate to marked to space narrowing, mild posterior lateral endplate osteophytosis with associated broad-based disc protrusion/bulging moderate hypertrophic facet and ligamentum flavum changes and previous left laminotomy, which resulted in mild to moderate neural foraminal narrowing, greater on the right. Sacrum and iliac wings are unremarkable. ASSESSMENT/PLAN DIAGNOSIS: M47.816 Lumbar spondylosis (primary encounter diagnosis) M54.50, G89.29 Chronic bilateral low back pain without sciatica M48.061 Degenerative lumbar spinal stenosis ASSESSMENT: Irena Peraza is a 78 year old male with PMH of of A-fib s/p Watchman procedure, former smoker with COPD, CHF, PUD, GERD, and prior L5-S1 discectomy in the . presenting for f/u of chronic low back pain and foot numbness. Previously he described midline lumbosacral back pain that radiated to bilateral buttocks, with pain and numbness down the LLE posteriorly to the foot, less often in the RLE. Significant numbness left foot diffusely when taking a shower in the morning. Less numbness in right foot. Noted sometimes feels like legs might buckle with pain. MRI shows severe canal narrowing at L4-5 with anterolisthesis of L4 on 5, disc desiccation of L5-S1, multi level foraminal narrowing worse at L4-5 and L5-S1 and facet hypertrophy of L3-4, L4-5, and L5-S1. Has not improved with PT, HEP. Unable to tolerate Gabapentin and Lyrica. Patient underwent BL L5-S1 TFESI and had 100% relief of all related pain for 2 weeks, but then the pain gradually returned in the low back. He is now s/p repeat BL L5-S1 TFESI and pain immediately decreased from 8/10 down to 3/10 and continued to improve to 0-2/10, but now he reports lasting 40% improvement. He has been able to sit prolonged to mow the lawn without aggravating the pain. The residual pain is in the midline low back and to the left further than right at the belt line, les. No longer having pain radiating down the legs. He can still get the brief lightning bolt type pain with certain movements. Still notices numbness in left worse than right foot and in the morning he has 75% decreased sensation in the left foot when washing in the shower. Patient does not want to pursue surgical options for lumbar stenosis at this time and he is interested in further non-surgical care. Since his pain is now only in the low back, we discussed that there may be a facet joint mediated component to his pain. We discussed diagnostic medial branch blocks and he would like to schedule. Order placed per plan below. Follow up after injections. PLAN: 1) Imaging/Diagnostic Studies: -Imaging reviewed as above. 2) Therapy/Rehabilitation: -Continue PT HEP as tolerated -Activities and exercise as tolerated. Avoid heavy lifting. 3) Pharmacological Management: -no changes 4) Spine/MSK Interventions: -Bilateral L3 and L4 medial branch and L5 dorsal rami diagnostic blocks for the bilateral L4-5 and L5-S1 facet joints ordered. 5) Consultations: -None 6) Follow -up: -After injections -Patient instructed to call/seek urgent medical care with worsening of symptoms or change of neurological status. 7) Future treatment considerations: -Consult Spine Surgery if not improving with interventional options - patient prefers to avoid this for now. Total Time Spent: >20 minutes SIGNATURE: Alpa Ram DO PATIENT NAME: Irena Peraza DATE: January 16, 2024 TIME: 3:15 PM documented in this encounter [facility] 12-30-2023 Telephone encounter Note Tried to reach patient for post-injection phone call [phone]. Left office number for patient to call back. SodaHead message/questionairre sent regarding post-injection. Tremaine Joseph RN [facility] 12-30-2023 Miscellaneous Notes Tried to reach patient for post-injection phone call [phone]. Left office number for patient to call back. SodaHead message/questionairre sent regarding post-injection. Tremaine Joseph RN documented in this encounter [facility] 12-15-2023 Telephone encounter Note Attempted to reach patient via telephone for pre-procedure instructions regarding procedure with Dr. Ram on 12/20/2023 at contact number [phone], patient unable to talk on phone at this time. Left office number on voicemail. SodaHead message sent with pre-procedure guidelines for injection. [facility] 12-15-2023 Miscellaneous Notes Attempted to reach patient via telephone for pre-procedure instructions regarding procedure with Dr. Ram on 12/20/2023 at contact number [phone], patient unable to talk on phone at this time. Left office number on voicemail. [email or web address] message sent with pre-procedure guidelines for injection. documented in this encounter [facility] 11-17-2023 History of Present illness Narrative Images from the original note were not included. [facility] [place] [facility] Department of Cardiovascular Medicine SECTION OF CARDIAC PACING and ELECTROPHYSIOLOGY OUTPATIENT VISIT DATE November 17, 2023 OUTPATIENT VISIT TYPE ESTABLISHED PRIMARY CARE PHYSICIAN: Scarlett Gaviria NP [address] [place] [phone] CHIEF COMPLAINT: AF s/p Watchman HISTORY OF PRESENT ILLNESS/ NURSING INTAKE HISTORY: Mr. Peraza is a 78 year old male who presents today for follow-up visit for atrial fibrillation, s/p Watchman 05/19/22. He has a history of persistent atrial fibrillation on dofetilide ([facility] 06/2021), GI bleed, CAD, GERD, HTN, HLD. He is s/p Watchman implantation with Dr. Kemp on 05/19/2022. In November 2021, he was diagnosed with anemia and GI bleed. He received 4 units of PRBC and iron infusions. EGD, tagged red blood cell GI study and capsule endoscopy were done and failed to find a source of bleeding. Colonoscopy a few months before the bleed was negative for abnormalities. Eliquis was discontinued 11/2021. He is s/p Watchman implant 05/19/22. He was last seen in office 09/14/22. YOGESH at that time revealed well-seated Watchman without leak. He continues on dofetilide and aspirin. YOGESH today shows no kathleen-device leak. He reports doing well. He denies chest pain, palpitations, SOB, lightheadedness or syncope. He reports his last transfusion was about one month ago, denies any signs of bleeding. He continues to take aspirin. CHADS2-Vasc Score Breakdown 5 Total Score 2 Age >= 75 years old 1 History of CHF 1 History of hypertension 1 History of vascular disease PAST MEDICAL HISTORY Diagnosis Date Arthritis CAD (coronary artery disease) 03/26/2013 40-50% mid LAD Carpal tunnel syndrome Cervical spine pain COPD (chronic obstructive pulmonary disease) (HCC) Depression Diastolic heart failure (HCC) GERD (gastroesophageal reflux disease) HTN (hypertension), benign patient denies this Hypercholesterolemia Hyperlipemia Left atrial dilatation Melanoma (HCC) 2012 left breast melanoma s/p surgery. Obstructive lung disease (HCC) PAF (paroxysmal atrial fibrillation) (HCC) 2003 s/p ablation 2003 PUD (peptic ulcer disease) remote RLS (restless legs syndrome) Rotator cuff tear x2 each shoulder PAST SURGICAL HISTORY Procedure Laterality Date APPENDECTOMY HX BACK SURGERY HX L5, S1 removed CARDIAC CATH 03/26/13 40-50% disease in mid LAD CARDIOVERSION 11/14/15 CATHETER, ABLATION A-Fib, 2003 at [facility] HERNIA REPAIR HX 05/2011 left inguinal PAST SURGICAL HISTORY OF skin cancer removed from back, and from leg, nose,; also cyst removed PAST SURGICAL HISTORY OF 2013 Melanoma removed from left breast. PAST SURGICAL HISTORY OF 2012 bilateral cataract removal PAST SURGICAL HISTORY OF Left carpal tunnel release PAST SURGICAL HISTORY OF Right 2017 varicose vein surgery ROTATOR CUFF REPAIR x4 (2 on each shoulder) SHOULDER LEFT OUT PT SURGERY 08/2015 reverse total shoulder TONSILLECTOMY HX SOCIAL HISTORY Social History Tobacco Use Smoking status: Former Packs/day: 1.50 Years: 15.00 Additional pack years: 0.00 Total pack years: 22.50 Types: Cigarettes Quit date: 05/02/1985 Years since quittin.5 Smokeless tobacco: Never Substance Use Topics Alcohol use: Yes Alcohol/week: 10.0 standard drinks of alcohol Types: 10 Standard drinks or equivalent per week Comment: has an occasional drink, previously drank 2-3 per day Drug use: No FAMILY HISTORY Problem Relation Age of Onset other (TB) Mother age 78, Tuberculosis, of natural causes Heart Father s/p AVR Coronary Artery Disease Sister s/p CABG x3 No Known Problems Sister No Known Problems Brother No Known Problems Maternal Grandmother No Known Problems Maternal Grandfather No Known Problems Paternal Grandmother No Known Problems Paternal Grandfather No Known Problems Daughter No Known Problems Daughter No Known Problems Son Heart Grandchild Shone disease; at age 6 days old ALLERGIES: ALLERGIES No Known Allergies MEDICATIONS: pregabalin (LYRICA) 50 mg capsule Take 1 capsule by mouth two times a day for 30 days. furosemide (LASIX) 20 mg tablet Take 1 tablet by mouth once daily. atenolol (TENORMIN) 50 mg tablet Take 1 tablet by mouth once daily. dofetilide (TIKOSYN) 500 mcg capsule Take 1 capsule by mouth two times a day. omega-3/dha/epa/fish oil (OMEGA-3 ORAL) Take by mouth. atorvastatin (LIPITOR) 40 mg tablet take 1 tablet by mouth once daily acetaminophen 650 mg CR tablet Every 12 hours amoxicillin (AMOXIL) 500 mg capsule TAKE 2 CAPSULES BY MOUTH now then TAKE 1 CAPSULE BY MOUTH EVERY 6 HOURS UNTIL GONE ketoconazole (NIZORAL) 2 % cream DULoxetine (CYMBALTA) 60 mg capsule Take 1 capsule by mouth every afternoon. fluticasone-vilanterol (BREO ELLIPTA) 100-25 mcg/dose inhaler INHALE 1 PUFF BY MOUTH DAILY omega-3 acid ethyl esters (LOVAZA) 1 gram capsule Take 1,000 mg by mouth. ADVAIR DISKUS 100-50 mcg/dose inhaler Inhale as instructed two times a day. tolterodine ER (DETROL LA) 4 mg 24 hr capsule Take 4 mg by mouth once daily. aspirin, enteric coated (ECOTRIN LOW STRENGTH) 81 mg EC tablet Take 1 tablet by mouth once daily. Fenofibrate (LOFIBRA) 160 mg tablet TAKE 1 TABLET ONCE DAILY cholecalciferol, vitamin D3, (VITAMIN D3 ORAL) Take by mouth. magnesium oxide (MAG-OX) 400 mg (241.3 mg magnesium) tablet Take 1 tablet by mouth once daily. omeprazole (PRILOSEC) 40 mg capsule Take 40 mg by mouth once daily. rOPINIRole (REQUIP) 1 mg tablet Take 1 tablet by mouth daily at bedtime. montelukast (SINGULAIR) 10 mg tablet montelukast 10 mg tablet allopurinol (ZYLOPRIM) 100 mg tablet Take 100 mg by mouth once daily. PROCTOZONE-HC 2.5 % rectal cream APPLY TO THE AFFECTED AREA(S) 2-4 times daily fluticasone (FLONASE) 50 mcg/actuation nasal spray Use 1 [place] in each nostril once daily. coenzyme Q10 100 mg cap Take 100 mg by mouth once daily. albuterol HFA (PROAIR HFA) 90 mcg/actuation inhaler Inhale 2 Puffs as instructed every 6 hours as needed. Sdqvjtjykuz-Ytvpwslky-Jdl C-Mn 500-400 mg cap Take 1 capsule by mouth twice daily. Rosa Elena Joshi RN I have seen and evaluated the patient and confirmed the findings of the Physician Veterinary Surgeon/Nurse Practitioner or fellow/resident above, with the addition of appropriate modifications and corrections. I have personally formulated an assessment and plan of management which was discussed with the patient and the clinical team. PHYSICAL EXAMINATION: BP 127/75 Pulse 70 Ht 177.8 cm (5' 10 ) Wt 97.5 kg (215 lb) BMI 30.85 kg/m General appearance: well appearing, in no acute distress, alert H+ENT: no JVP, no goiter apparent, no icterus Lungs: Lungs clear to auscultation, No wheezing or rhonchi Heart: RRR, no murmur, gallop, or rubs. No ectopy. Abdomen: Abdomen soft, non-tender. Extremities: no edema Neuro: Grossly intact. Pulses: present bilaterally Skin:no apparent skin break CARDIOVASCULAR MEDICINE TESTING: EKG today: YOGESH today: CONCLUSIONS: - Exam indication: Nonsustained atrial fibrillation - The left ventricle is normal in size. Left ventricular systolic function is normal. EF = 55 5% (visual est.) - The right ventricle is normal in size. Right ventricular systolic function is normal. - The left atrial cavity is dilated. There is a Watchman FLX (#27) device in the AGUS. There is clot behind the Watchman device. There is no kathleen-device leak. - Exam was compared with the prior transesophageal echocardiographic exam performed on 09/14/22. similar findings IMPRESSION: CHIEF COMPLAINT: AF s/p Watchman HISTORY OF PRESENT ILLNESS/ PLAN AND RECOMMENDATIONS: Mr. Peraza is a 78 year old male who presents today for follow-up visit for atrial fibrillation, s/p Watchman 05/19/22. He has a history of persistent atrial fibrillation on dofetilide ([facility] 06/2021), GI bleed, CAD, GERD, HTN, HLD. He is s/p Watchman implantation with Dr. Kemp on 05/19/2022. In November 2021, he was diagnosed with anemia and GI bleed. He received 4 units of PRBC and iron infusions. EGD, tagged red blood cell GI study and capsule endoscopy were done and failed to find a source of bleeding. Colonoscopy a few months before the bleed was negative for abnormalities. Eliquis was discontinued 11/2021. He is s/p Watchman implant 05/19/22. He was last seen in office 09/14/22. YOGESH at that time revealed well-seated Watchman without leak. He continues on dofetilide and aspirin. YOGESH today shows no kathleen-device leak. He reports doing well. He denies chest pain, palpitations, SOB, lightheadedness or syncope. He reports his last transfusion was about one month ago, denies any signs of bleeding. He continues to take aspirin. CHADS2-Vasc Score Breakdown Continues to do very well on dofetilide with no recurrence of atrial fibrillation. His EKG today reveals sinus rhythm with acceptable intervals. His YOGESH revealed no leaks and no DRT. Will continue current management and follow-up in 1 year or sooner if needed. Kaylah Kemp MD I personally interviewed, confirmed and edited the above information as obtained by others. CONTACT INFORMATION: Kaylah Kemp MD documented in this encounter [facility] 11-17-2023 Note HNO ID: [id number] Author: KAYLAH KEMP MD Service: ? Author Type: Physician Type: Progress Notes Filed: 11/17/2023 16:59 Note Text: [facility] [place] [facility] Department of Cardiovascular Medicine SECTION OF CARDIAC PACING and ELECTROPHYSIOLOGY OUTPATIENT VISIT DATE November 17, 2023 OUTPATIENT VISIT TYPE ESTABLISHED PRIMARY CARE PHYSICIAN: Scarlett Gaviria NP [address] [facility] [place] [phone] CHIEF COMPLAINT: AF s/p Watchman HISTORY OF PRESENT ILLNESS/ NURSING INTAKE HISTORY: Mr. Peraza is a 78 year old male who presents today for follow-up visit for atrial fibrillation, s/p Watchman 05/19/22. He has a history of persistent atrial fibrillation on dofetilide ([facility] 06/2021), GI bleed, CAD, GERD, HTN, HLD. He is s/p Watchman implantation with Dr. Kemp on 05/19/2022. In November 2021, he was diagnosed with anemia and GI bleed. He received 4 units of PRBC and iron infusions. EGD, tagged red blood cell GI study and capsule endoscopy were done and failed to find a source of bleeding. Colonoscopy a few months before the bleed was negative for abnormalities. Eliquis was discontinued 11/2021. He is s/p Watchman implant 05/19/22. He was last seen in office 09/14/22. YOGESH at that time revealed well-seated Watchman without leak. He continues on dofetilide and aspirin. YOGESH today shows no kathleen-device leak. He reports doing well. He denies chest pain, palpitations, SOB, lightheadedness or syncope. He reports his last transfusion was about one month ago, denies any signs of bleeding. He continues to take aspirin. CHADS2-Vasc Score Breakdown 5 Total Score 2 Age >= 75 years old 1 History of CHF 1 History of hypertension 1 History of vascular disease PAST MEDICAL HISTORY Diagnosis Date Arthritis CAD (coronary artery disease) 03/26/2013 40-50% mid LAD Carpal tunnel syndrome Cervical spine pain COPD (chronic obstructive pulmonary disease) (HCC) Depression Diastolic heart failure (HCC) GERD (gastroesophageal reflux disease) HTN (hypertension), benign patient denies this Hypercholesterolemia Hyperlipemia Left atrial dilatation Melanoma (HCC) 2012 left breast melanoma s/p surgery. Obstructive lung disease (HCC) PAF (paroxysmal atrial fibrillation) (HCC) 2003 s/p ablation 2003 PUD (peptic ulcer disease) remote RLS (restless legs syndrome) Rotator cuff tear x2 each shoulder PAST SURGICAL HISTORY Procedure Laterality Date APPENDECTOMY HX BACK SURGERY HX L5, S1 removed CARDIAC CATH 03/26/13 40-50% disease in mid LAD CARDIOVERSION 11/14/15 CATHETER, ABLATION A-Fib, 2003 at [facility] HERNIA REPAIR HX 05/2011 left inguinal PAST SURGICAL HISTORY OF skin cancer removed from back, and from leg, nose,; also cyst removed PAST SURGICAL HISTORY OF 2013 Melanoma removed from left breast. PAST SURGICAL HISTORY OF 2012 bilateral cataract removal PAST SURGICAL HISTORY OF Left carpal tunnel release PAST SURGICAL HISTORY OF Right 2017 varicose vein surgery ROTATOR CUFF REPAIR x4 (2 on each shoulder) SHOULDER LEFT OUT PT SURGERY 08/2015 reverse total shoulder TONSILLECTOMY HX SOCIAL HISTORY Social History Tobacco Use Smoking status: Former Packs/day: 1.50 Years: 15.00 Additional pack years: 0.00 Total pack years: 22.50 Types: Cigarettes Quit date: 05/02/1985 Years since quittin.5 Smokeless tobacco: Never Substance Use Topics Alcohol use: Yes Alcohol/week: 10.0 standard drinks of alcohol Types: 10 Standard drinks or equivalent per week Comment: has an occasional drink, previously drank 2-3 per day Drug use: No FAMILY HISTORY Problem Relation Age of Onset other (TB) Mother age 78, Tuberculosis, of natural causes Heart Father s/p AVR Coronary Artery Disease Sister s/p CABG x3 No Known Problems Sister No Known Problems Brother No Known Problems Maternal Grandmother No Known Problems Maternal Grandfather No Known Problems Paternal Grandmother No Known Problems Paternal Grandfather No Known Problems Daughter No Known Problems Daughter No Known Problems Son Heart Grandchild Shone disease; at age 6 days old ALLERGIES: ALLERGIES No Known Allergies MEDICATIONS: pregabalin (LYRICA) 50 mg capsule Take 1 capsule by mouth two times a day for 30 days. furosemide (LASIX) 20 mg tablet Take 1 tablet by mouth once daily. atenolol (TENORMIN) 50 mg tablet Take 1 tablet by mouth once daily. dofetilide (TIKOSYN) 500 mcg capsule Take 1 capsule by mouth two times a day. omega-3/dha/epa/fish oil (OMEGA-3 ORAL) Take by mouth. atorvastatin (LIPITOR) 40 mg tablet take 1 tablet by mouth once daily acetaminophen 650 mg CR tablet Every 12 hours amoxicillin (AMOXIL) 500 mg capsule TAKE 2 CAPSULES BY MOUTH now then TAKE 1 CAPSULE BY MOUTH EVERY 6 HOURS UNTIL GONE ketoconazole (NIZORAL) 2 % (more content not included)... [facility] 11-17-2023 Nurse Note AMBULATORY PATIENT EDUCATION TOPIC: SURVIVAL SKILLS: YOGESH READINESS TO LEARN COGNITIVE ABILITY: Alert and oriented MOTIVATION TO LEARN: Eager FAMILY SUPPORT: None - Unavailable/disinterested INSTRUCTION PROVIDED TO: Patient PATIENT LEARNS BEST BY: Individual Instruction FACTORS AFFECTING LEARNING: None PHYSICAL LIMITATIONS AFFECTING LEARNING: None LEARNING RESPONSE DIAGNOSIS: yogesh METHOD OF INSTRUCTION: Individual instruction Written instruction/Handouts Verbal instruction PATIENT / FAMILY RESPONSE: Verbalizes understanding of: POST-PROCEDURE INSTRUCTIONS-Correct actions to take to reduce post procedure complications PRE-PROCEDURE INSTRUCTIONS-Correct action to take to follow pre-procedure instructions FOLLOW-UP PLAN: Complete - No need for follow-up SUPPLEMENTAL MATERIAL: Post op discharge instructions Post YOGESH instructions given REFERRAL (RECOMMENDATION): None Electronically Signed By Barb Avila RN In Department: CARDIOLOGY [facility] 11-17-2023 Nurse Note AMBULATORY PATIENT EDUCATION TOPIC: SURVIVAL SKILLS: YOGESH READINESS TO LEARN COGNITIVE ABILITY: Alert and oriented MOTIVATION TO LEARN: Eager FAMILY SUPPORT: None - Unavailable/disinterested INSTRUCTION PROVIDED TO: Patient PATIENT LEARNS BEST BY: Individual Instruction FACTORS AFFECTING LEARNING: None PHYSICAL LIMITATIONS AFFECTING LEARNING: None LEARNING RESPONSE DIAGNOSIS: yogesh METHOD OF INSTRUCTION: Individual instruction Written instruction/Handouts Verbal instruction PATIENT / FAMILY RESPONSE: Verbalizes understanding of: POST-PROCEDURE INSTRUCTIONS-Correct actions to take to reduce post procedure complications PRE-PROCEDURE INSTRUCTIONS-Correct action to take to follow pre-procedure instructions FOLLOW-UP PLAN: Complete - No need for follow-up SUPPLEMENTAL MATERIAL: Post op discharge instructions Post YOGESH instructions given REFERRAL (RECOMMENDATION): None Electronically Signed By Barb Avila RN In Department: CARDIOLOGY documented in this encounter [facility] 11-11-2023 Note HNO ID: [id number] Author: ALPA RAM, DO Service: ? Author Type: Physician Type: Progress Notes Filed: 12/01/2023 12:51 Note Text: [facility] [place] [facility] [place] [facility] - Medical Spine Established Patient SUBJECTIVE HISTORY OF PRESENT ILLNESS: Irena Peraza is a 78 year old male who presents for f/u of low back pain. Last visit: Discontinue Gabapentin, start Lyrica, BL L5-S1 TFESI ordered, cont PT HEP as tolerated. Patient underwent BL L5-S1 TFESI and had 100% relief of all related pain for 2 weeks, but then the pain began returning and is now down to 20% relief for the low back, but he continues to have significant relief in the legs. Low back pain is midline lumbosacral region. He does still get intermittent radiating pain down the LLE posteriorly to the foot, lasts 5-30 seconds. Gets this much less often in the RLE. This radiating type pain is less frequent and less severe since the injections, it was 7-10/10 prior and is now 2-3/10 typically, occasionally up to 5/10. Pain is not as bothersome in the buttocks now. Gets numbness in the left foot starting his morning, less in right foot. Has not had any recent knee buckling type feeling as a result of pain. Pain is now down to 1/10 in the low back currently while sitting, but gets up to 3-6/10 intermittently with movement throughout the day. He is taking Lyrica 50 mg TID. He has not directly noted side effects, but does not he feels fatigue and lack of energy/motivation. He notes he has a lot to do, but feels like he chooses to take naps and avoid his tasks too often. Initial visit 06/22/23: Reports low back pain for at least 30+ years, had L5-S1 discectomy in . Pain fluctuates on and off for a long time. Recently says his pain is now in the low back and buttock, some along the sacral region as well, worse with standing. Worst pain is midline lumbosacral region. Reports tingling and pain down the left > right leg, down the posterior thigh and leg, all the way to the foot. Denies weakness. Denies bowel/bladder incontinence or saddle anesthesia. The pain is currently 3/10. The pain can get to 8/10 at the highest. 08/29/23: Patient has attended PT with little relief. With PT he has been able to find positions to bring the pain down, but with movement or certain positions he continues to have pain. Taking Gabapentin with some benefit, but causes dry mouth. He continues to have pain in the lumbosacral back midline, like a knife. He gets radiating pain and numbness down the LLE posteriorly to the foot. Significant numbness left foot diffusely when taking a shower. Less numbness in right foot. Sometimes feels like legs might buckle with pain. Pain is 3-4/10 while sitting, but with movement it can go up to 10/10, described as a bolt of lightning . PAIN EVALUATION 11/09/2023 1437 Pain Level: 7 Pain Location: Abdomen-Left Lower Quadrant Description: Numbness;Radiating;Sharp Duration Units: Minutes Frequency: Intermittent Intervention/Comfort measure: Reposition;Massage Comments: lower back then down left leg Pain Radiation: As above Aggravating Factors: Standing, leaning forward Transfers Alleviating Factors: Stretching Sitting Child's pose Pain Ratio: midline lumbosacral back Current Treatment: Medications Tylenol 650mg 2 pills PRN Cymbalta 60mg Gabapentin 300 mg TID - mild benefit, causing dry mouth and mild increase in chronic BLE edema Therapies PT HEP 3 times per week PT: [facility], Rachell Gilliam PT, 06/28-08/26/23, 8 visits, discharged by therapist due to no progress. PT reports sharp pain w/ movement b/w static postures indicating spinal instability. Pain w/ transfers up to 8-9/10, subsides after 30-60 seconds down to 4/10. Positions are variable, prone postures sometimes relieve, sometimes worsen. Laying prone w/ pillow under hips is consistent, but transferring to prone can be provoking. Sxs include central back pain, n/t thighs, LLE down to foot, occasionally toes. Pain with initial extension then improves w/ repeat, tolerates prone press up minimal pain and no peripheralization. Prior Treatment: Medications none Therapies Acupuncture for the neck Prior spine interventions: -09/20/23 Dr. Ram: BL L5-S1 TFESI - 100% relief of all related pain for 2 weeks, on 11/11/23 reported low back pain remains 20% improved with pain ranging 1-6/10, while LE pain is now 2-3/10, at worst 5/10, compared to 7-10/10 before injections. -RFA he thinks was done in the neck, maybe 5 years ago at [facility] -4-5 years ago he recalls having lumbar spine injections Prior spine surgery: L5-S1 discectomy in Previously treated by: -Recently seen by PA working with Spine Surgeon Dr. Al Wiley in [place] and was planning water PT. -Spine Medicine Dr. Bellamy. 2019 for cervical spine. Has had RFA locally (more content not included)... [facility] 11-11-2023 History of Present illness Narrative Images from the original note were not included. [facility] [place] [facility] [place] [facility] - Medical Spine Established Patient SUBJECTIVE HISTORY OF PRESENT ILLNESS: Irena Peraza is a 78 year old male who presents for f/u of low back pain. Last visit: Discontinue Gabapentin, start Lyrica, BL L5-S1 TFESI ordered, cont PT HEP as tolerated. Patient underwent BL L5-S1 TFESI and had 100% relief of all related pain for 2 weeks, but then the pain began returning and is now down to 20% relief for the low back, but he continues to have significant relief in the legs. Low back pain is midline lumbosacral region. He does still get intermittent radiating pain down the LLE posteriorly to the foot, lasts 5-30 seconds. Gets this much less often in the RLE. This radiating type pain is less frequent and less severe since the injections, it was 7-10/10 prior and is now 2-3/10 typically, occasionally up to 5/10. Pain is not as bothersome in the buttocks now. Gets numbness in the left foot starting his morning, less in right foot. Has not had any recent knee buckling type feeling as a result of pain. Pain is now down to 1/10 in the low back currently while sitting, but gets up to 3-6/10 intermittently with movement throughout the day. He is taking Lyrica 50 mg TID. He has not directly noted side effects, but does not he feels fatigue and lack of energy/motivation. He notes he has a lot to do, but feels like he chooses to take naps and avoid his tasks too often. Initial visit 06/22/23: Reports low back pain for at least 30+ years, had L5-S1 discectomy in . Pain fluctuates on and off for a long time. Recently says his pain is now in the low back and buttock, some along the sacral region as well, worse with standing. Worst pain is midline lumbosacral region. Reports tingling and pain down the left > right leg, down the posterior thigh and leg, all the way to the foot. Denies weakness. Denies bowel/bladder incontinence or saddle anesthesia. The pain is currently 3/10. The pain can get to 8/10 at the highest. 08/29/23: Patient has attended PT with little relief. With PT he has been able to find positions to bring the pain down, but with movement or certain positions he continues to have pain. Taking Gabapentin with some benefit, but causes dry mouth. He continues to have pain in the lumbosacral back midline, like a knife. He gets radiating pain and numbness down the LLE posteriorly to the foot. Significant numbness left foot diffusely when taking a shower. Less numbness in right foot. Sometimes feels like legs might buckle with pain. Pain is 3-4/10 while sitting, but with movement it can go up to 10/10, described as a bolt of lightning . PAIN EVALUATION 11/09/2023 1437 Pain Level: 7 Pain Location: Abdomen-Left Lower Quadrant Description: Numbness;Radiating;Sharp Duration Units: Minutes Frequency: Intermittent Intervention/Comfort measure: Reposition;Massage Comments: lower back then down left leg Pain Radiation: As above Aggravating Factors: Standing, leaning forward Transfers Alleviating Factors: Stretching Sitting Child's pose Pain Ratio: midline lumbosacral back Current Treatment: Medications Tylenol 650mg 2 pills PRN Cymbalta 60mg Gabapentin 300 mg TID - mild benefit, causing dry mouth and mild increase in chronic BLE edema Therapies PT HEP 3 times per week PT: [facility], Rachell Gilliam PT, 06/28-08/26/23, 8 visits, discharged by therapist due to no progress. PT reports sharp pain w/ movement b/w static postures indicating spinal instability. Pain w/ transfers up to 8-9/10, subsides after 30-60 seconds down to 4/10. Positions are variable, prone postures sometimes relieve, sometimes worsen. Laying prone w/ pillow under hips is consistent, but transferring to prone can be provoking. Sxs include central back pain, n/t thighs, LLE down to foot, occasionally toes. Pain with initial extension then improves w/ repeat, tolerates prone press up minimal pain and no peripheralization. Prior Treatment: Medications none Therapies Acupuncture for the neck Prior spine interventions: -09/20/23 Dr. Ram: BL L5-S1 TFESI - 100% relief of all related pain for 2 weeks, on 11/11/23 reported low back pain remains 20% improved with pain ranging 1-6/10, while LE pain is now 2-3/10, at worst 5/10, compared to 7-10/10 before injections. -RFA he thinks was done in the neck, maybe 5 years ago at [facility] -4-5 years ago he recalls having lumbar spine injections Prior spine surgery: L5-S1 discectomy in Previously treated by: -Recently seen by PA working with Spine Surgeon Dr. Al Wiley in [place] and was planning [facility] PT. -Spine Medicine Dr. Bellamy. 2019 for cervical spine. Has had RFA locally and can pursue that. Try ROM exercises. Trial of Acupuncture for pain. PMH: PUD, GERD Afib s/p Watchman procedure, off Eliquis now CHF COPD h/o cancer: Melanoma PSH: PAST SURGICAL HISTORY Procedure Laterality Date APPENDECTOMY HX BACK SURGERY HX L5, S1 removed CARDIAC CATH 03/26/13 40-50% disease in mid LAD CARDIOVERSION 11/14/15 CATHETER, ABLATION A-Fib, 2003 at [facility] HERNIA REPAIR HX 05/2011 left inguinal PAST SURGICAL HISTORY OF skin cancer removed from back, and from leg, nose,; also cyst removed PAST SURGICAL HISTORY OF 2012 Melanoma removed from left breast. PAST SURGICAL HISTORY OF 2012 bilateral cataract removal PAST SURGICAL HISTORY OF Left carpal tunnel release PAST SURGICAL HISTORY OF Right 2017 varicose vein surgery ROTATOR CUFF REPAIR x4 (2 on each shoulder) SHOULDER LEFT OUT PT SURGERY 08/2015 reverse total shoulder TONSILLECTOMY HX Social Tobacco: Former smoker Personal life: daughter is a dentist, son is a nurse Occupation: Retired Litigation: No Workers' Compensation: No YELLOW & BLUE FLAGS No-Neg Attitude; Back Pain is Disabling No-Avoiding Activity (for Fear of Pain) No-Depression or Anxiety Disorders No-Social Problems No-Substance Use Disorder No-Job Dissatisfaction No-Financial Disincentives Patient Entered Questionnaires 08/28/2023 11/09/2023 Spine Questions Pain Location: Lower back Lower back Pain Duration: 1 to 5 years Pain over last 6 months: Every day or nearly every day in the past 6 months Symptoms from neck/cervical spine: No No Employment Status: Retired Involved in law suit/legal claim: No 08/28/2023 Spine Red Flags Any type of cancer: Yes Unexplained fever: No Bowel or bladder disfunction: No Unintentional weight loss: No Osteoporosis: Yes PROMIS Score Percentiles 08/28/2023 11/09/2023 Physical Health Physical Function Percentile 7 12 Sleep Percentile 27* 54 Fatigue Percentile 4 4 Pain Interference Percentile 4 54 08/28/2023 11/09/2023 PROMIS SOCIAL ROLE SCORE Social Role Satisfaction Percentile 24* 10 09/21/2016 02/10/2017 08/28/2023 PROMIS Global Health Scale Physical Health Percentile 41 22* 4 Mental Health Percentile 26* 26* 13 Percentiles provide an indication of how the patient's score ranks in relation to the general population. Higher percentile rankings indicate better function/quality of life. 50th percentile is the average of the general population and indicates half of respondents had a worse score. Depression Screenin06/26/2018 08/28/2023 11/09/2023 PHQ-9 Score 3 10 15 11/09/2023 08/28/2023 06/26/2018 PHQ-9 Self Harm Question 9 Not at all Not at all Not at all PHQ-9 Self-Harm (Item 9) response options: 0 Not at all 1 Several days 2 More than half the days 3 Nearly every day PHQ-9 Levels: 0-4 No - mild depression 5-9 Mild depression 10-14 Moderate depression 15-19 Moderately severe depression 20-27 Severe depression ACTIVE PROBLEM LIST Paf (Paroxysmal Atrial Fibrillation) (Hcc) Former Smoker Obstructive Lung Disease (Hcc) Hyperlipemia Pud (Peptic Ulcer Disease) Gerd (Gastroesophageal Reflux Disease) Carpal Tunnel Syndrome Hx of Neck Disorder Rotator Cuff Tear Arthritis Depression Alcohol Use Lprd (Laryngopharyngeal Reflux Disease) Chronic Throat Clearing Biceps Rupture, Proximal Contracture of Shoulder Rotator Cuff Tear Arthropathy Complete Tear of Left Rotator Cuff Melanoma (Hcc) Htn (Hypertension), Benign Cervical Spine Pain Osteoarthritis Limitation of Joint Motion of Shoulder Acute On Chronic Diastolic Congestive Heart Failure (Hcc) Chronic Diastolic Congestive Heart Failure (Hcc) Right Shoulder Pain Stiffness of Shoulder Joint Weakness of Shoulder Obesity, Class I, Bmi 30-34.9 Persistent Atrial Fibrillation (Hcc) Visit for Monitoring Tikosyn Therapy Gastrointestinal Hemorrhage IRB [id number] WATCHAMAN FLX Real World Evidence (WATCH RWE) PI: Dr. Marcos Bermudez Atrial Fibrillation (Hcc) Low Back Pain, Unspecified Spinal Stenosis of Lumbar Region With Radiculopathy PAST MEDICAL HISTORY Diagnosis Date Arthritis CAD (coronary artery disease) 03/26/2013 40-50% mid LAD Carpal tunnel syndrome Cervical spine pain COPD (chronic obstructive pulmonary disease) (HCC) Depression Diastolic heart failure (HCC) GERD (gastroesophageal reflux disease) HTN (hypertension), benign patient denies this Hypercholesterolemia Hyperlipemia Left atrial dilatation Melanoma (HCC) 2012 left breast melanoma s/p surgery. Obstructive lung disease (HCC) PAF (paroxysmal atrial fibrillation) (HCC) 2003 s/p ablation 2003 PUD (peptic ulcer disease) remote RLS (restless legs syndrome) Rotator cuff tear x2 each shoulder PAST SURGICAL HISTORY Procedure Laterality Date APPENDECTOMY HX BACK SURGERY HX L5, S1 removed CARDIAC CATH 03/26/13 40-50% disease in mid LAD CARDIOVERSION 11/14/15 CATHETER, ABLATION A-Fib, 2003 at [facility] HERNIA REPAIR HX 05/2011 left inguinal PAST SURGICAL HISTORY OF skin cancer removed from back, and from leg, nose,; also cyst removed PAST SURGICAL HISTORY OF 2013 Melanoma removed from left breast. PAST SURGICAL HISTORY OF 2012 bilateral cataract removal PAST SURGICAL HISTORY OF Left carpal tunnel release PAST SURGICAL HISTORY OF Right 2017 varicose vein surgery ROTATOR CUFF REPAIR x4 (2 on each shoulder) SHOULDER LEFT OUT PT SURGERY 08/2015 reverse total shoulder TONSILLECTOMY HX Social History Tobacco Use Smoking status: Former Packs/day: 1.50 Years: 15.00 Additional pack years: 0.00 Total pack years: 22.50 Types: Cigarettes Quit date: 05/02/1985 Years since quittin.5 Smokeless tobacco: Never Substance Use Topics Alcohol use: Yes Alcohol/week: 10.0 standard drinks of alcohol Types: 10 Standard drinks or equivalent per week Comment: has an occasional drink, previously drank 2-3 per day Drug use: No FAMILY HISTORY Problem Relation Age of Onset other (TB) Mother age 78, Tuberculosis, of natural causes Heart Father s/p AVR Coronary Artery Disease Sister s/p CABG x3 No Known Problems Sister No Known Problems Brother No Known Problems Maternal Grandmother No Known Problems Maternal Grandfather No Known Problems Paternal Grandmother No Known Problems Paternal Grandfather No Known Problems Daughter No Known Problems Daughter No Known Problems Son Heart Grandchild Shone disease; at age 6 days old ALLERGIES No Known Allergies CURRENT MEDICATIONS: furosemide (LASIX) 20 mg tablet Take 1 tablet by mouth once daily. atenolol (TENORMIN) 50 mg tablet Take 1 tablet by mouth once daily. dofetilide (TIKOSYN) 500 mcg capsule Take 1 capsule by mouth two times a day. pregabalin (LYRICA) 50 mg capsule Take one capsule daily at bedtime for 3 days, then one in the morning and one at night for 3 days. Then increase to one capsule three times daily if tolerating well. Patient is having side effects with Gabapentin. omega-3/dha/epa/fish oil (OMEGA-3 ORAL) Take by mouth. atorvastatin (LIPITOR) 40 mg tablet take 1 tablet by mouth once daily amoxicillin (AMOXIL) 500 mg capsule TAKE 2 CAPSULES BY MOUTH now then TAKE 1 CAPSULE BY MOUTH EVERY 6 HOURS UNTIL GONE ketoconazole (NIZORAL) 2 % cream DULoxetine (CYMBALTA) 60 mg capsule Take 1 capsule by mouth every afternoon. ADVAIR DISKUS 100-50 mcg/dose inhaler Inhale as instructed two times a day. tolterodine ER (DETROL LA) 4 mg 24 hr capsule Take 4 mg by mouth once daily. aspirin, enteric coated (ECOTRIN LOW STRENGTH) 81 mg EC tablet Take 1 tablet by mouth once daily. Fenofibrate (LOFIBRA) 160 mg tablet TAKE 1 TABLET ONCE DAILY cholecalciferol, vitamin D3, (VITAMIN D3 ORAL) Take by mouth. magnesium oxide (MAG-OX) 400 mg (241.3 mg magnesium) tablet Take 1 tablet by mouth once daily. omeprazole (PRILOSEC) 40 mg capsule Take 40 mg by mouth once daily. rOPINIRole (REQUIP) 1 mg tablet Take 1 tablet by mouth daily at bedtime. montelukast (SINGULAIR) 10 mg tablet montelukast 10 mg tablet allopurinol (ZYLOPRIM) 100 mg tablet Take 100 mg by mouth once daily. PROCTOZONE-HC 2.5 % rectal cream APPLY TO THE AFFECTED AREA(S) 2-4 times daily fluticasone (FLONASE) 50 mcg/actuation nasal spray Use 1 [place] in each nostril once daily. coenzyme Q10 100 mg cap Take 100 mg by mouth once daily. albuterol HFA (PROAIR HFA) 90 mcg/actuation inhaler Inhale 2 Puffs as instructed every 6 hours as needed. Lwoepccourz-Azwwedmzd-Plk C-Mn 500-400 mg cap Take 1 capsule by mouth twice daily. acetaminophen 650 mg CR tablet Every 12 hours fluticasone-vilanterol (BREO ELLIPTA) 100-25 mcg/dose inhaler INHALE 1 PUFF BY MOUTH DAILY omega-3 acid ethyl esters (LOVAZA) 1 gram capsule Take 1,000 mg by mouth. REVIEW OF SYSTEMS: 14 systems reviewed and otherwise negative unless mentioned above. OBJECTIVE: PHYSICAL EXAM BP 168/86 Pulse 72 Temp 36.5 C (97.7 F) (Temporal) Ht 177.8 cm (5' 10 ) Wt 97.7 kg (215 lb 6.2 oz) SpO2 97% BMI 30.91 kg/m GENERAL APPEARANCE: Well nourished, well developed, and no apparent distress. NEURO PSYCH: Patient oriented to person, place, and time. Mood pleasant. Benign affect. CARDIOVASCULAR: Palpable pulses. Non-pitting BLE edema RESPIRATORY: non-labored breathing, no grunting/flaring/retractions SKIN: Head, neck, trunk, and extremities dry, intact and without lesions. MUSCULOSKELETAL VISUAL INSPECTION Posture: normal posture and alignment PALPATION: No tenderness to palpation lumbar spine SPINE ROM: LUMBAR ROM: WFL in lumbar spine without pain. Pain with sit to stand. MUSCLE BULK: Normal and symmetrical in the upper & lower extremities. MUSCLE TONE: Normal. MOTOR: 4+/5 left hip flexion, 5/5 on right. 5/5 bilateral knee flexion, knee extension, ankle dorsiflexion, plantarflexion, EHL SENSORY: sensation intact to light touch BLE REFLEXES: 2+ patellar; Trace BL achilles; 1+ medial hamstring on right and 2+ on left LONG TRACT SIGNS: No clonus. No Hoffmans. BABINSKI: absent bilateral GAIT: Non-antalgic. Able to stand on toes and heels. Able to perform tandem gait with some loss of balance STRAIGHT LEG TEST: pain on left Hip: normal IR and ER SI joint: Negative ANSLEY, negative Gaenslen's Lumbar facet loading: Pain midline Data Review: All images/reports listed below were personally reviewed by me unless otherwise indicated. [facility] and Outside records independently reviewed Images independently reviewed with the patient 08/29/23 XR lumbar: Vertebral bodies have normal height and contour. There is no compression deformity or acute bony abnormality identified. Slight dextrocurvature at L2-3 The is grade I retrolisthesis at L2-3. The is grade I anterolisthesis at L4-5. Mild multilevel lumbar disc space narrowing. Moderate multilevel lumbar facet arthrosis Alignment appears stable in flexion and extension. There are bilateral sacroiliac joint and hip degenerative changes partially visualized on this study. There is atherosclerotic disease in the abdominal aorta. 05/20/2023 MRI lumbar spine with and without contrast, [facility]: The spine is visualized and T11-12 through S2 on the diagnostic sagittal sequences. Lumbar lordosis is maintained. Anterolisthesis of L4 over L5 approximately 7 to 8 mm, similar to the prior studies. Vertebral body heights and remaining alignment are within normal limits. Minimal degenerative endplate changes. No abnormal bone marrow enhancement identified. The conus is within normal limits of signal intensity and morphology. Small renal cyst that do not require further imaging follow-up. Paraspinal soft tissues are otherwise unremarkable. No abnormal enhancement identified. T11-12: Moderate disc space narrowing, mild posterior lateral endplate osteophytosis with associated broad-based disc protrusion/bulging and moderate to marked hypertrophic facet and ligamentum flavum changes which results in borderline central spinal stenosis and moderate to marked neuroforaminal narrowing. T12-L1: Mild hypertrophic facet and ligamentum flavum changes without central spinal stenosis neuroforaminal narrowing or discrete disc protrusion. L1-2: Borderline to minimal disc base narrowing mild posterior lateral endplate osteophytosis without associated broad-based disc protrusion/bulging and mild hypertrophic facet and ligamentum flavum changes without central spinal stenosis or neural foraminal narrowing. L2-3: Mild posterior lateral endplate osteophytosis with associated broad-based disc protrusion/bulging and mild hypertrophic facet and ligamentum flavum changes without central spinal stenosis or neuroforaminal narrowing. L3-4: Borderline to minimal disc base narrowing, mild to moderate posterior lateral endplate osteophytosis with associated broad-based disc protrusion/bulging and moderate hypertrophic facet and ligamentum flavum changes which results in moderate central spinal stenosis and neuroforaminal narrowing. L4-5: Grade 1 anterolisthesis, mild to moderate to space narrowing, moderate diffuse disc bulging and marked hypertrophic facet and ligamentum flavum changes which results in moderate to marked central spinal stenosis and neuroforaminal narrowing. L5-S1: Moderate to marked to space narrowing, mild posterior lateral endplate osteophytosis with associated broad-based disc protrusion/bulging moderate hypertrophic facet and ligamentum flavum changes and previous left laminotomy, which resulted in mild to moderate neural foraminal narrowing, greater on the right. Sacrum and iliac wings are unremarkable. ASSESSMENT/PLAN DIAGNOSIS: M48.061, M54.16 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athy (primary encounter diagnosis) R20.0 Lower extremity numbness ASSESSMENT: Irena Peraza is a 78 year old male with PMH of of A-fib s/p Watchman procedure, former smoker with COPD, CHF, PUD, GERD, and prior L5-S1 discectomy in the . presenting for f/u of midline lumbosacral low back pain that radiates to bilateral buttocks, with pain and numbness down the LLE posteriorly to the foot, less often in the RLE. Significant numbness left foot diffusely when taking a shower in the morning. Less numbness in right foot. Noted sometimes feels like legs might buckle with pain. MRI shows severe canal narrowing at L4-5 with anterolisthesis of L4 on 5, disc desiccation of L5-S1, multi level foraminal narrowing worse at L4-5 and L5-S1 and facet hypertrophy of L3-4, L4-5, and L5-S1. Patient underwent BL L5-S1 TFESI and had 100% relief of all related pain for 2 weeks, but then the pain began returning and is now down to 20% relief for the low back, but he continues to have significant relief in the legs. Low back pain is midline lumbosacral region. He does still get intermittent radiating pain down the LLE posteriorly to the foot, lasts 5-30 seconds. Gets this much less often in the RLE. This radiating type pain is less frequent and less severe since the injections, it was 7-10/10 prior and is now 2-3/10 typically, occasionally up to 5/10. Pain is not as bothersome in the buttocks now. Gets numbness in the left foot starting his morning, less in right foot. Has not had any recent knee buckling type feeling as a result of pain. Pain is now down to 1/10 in the low back currently while sitting, but gets up to 3-6/10 intermittently with movement throughout the day. He is taking Lyrica 50 mg TID. He has not directly noted side effects, but does not he feels fatigue and lack of energy/motivation. He notes he has a lot to do, but feels like he chooses to take naps and avoid his tasks too often. Lyrica refilled today, but patient plans to try and wean down to see if this medication is contributing to his drowsiness/fatigue. Instructions to wean were discussed today. Although he continues with good relief of pain in the lower extremities, he would like to schedule a repeat injection 3 months out from the previous injections in case his pain continues to worsen. Repeat injection order placed. PLAN: 1) Imaging/Diagnostic Studies: -Imaging reviewed as above. 2) Therapy/Rehabilitation: -Continue PT HEP as tolerated -Activities and exercise as tolerated. Avoid heavy lifting. 3) Pharmacological Management: -Lyrica refilled. Patient will try to wean down. Instructions provided. 4) Spine/MSK Interventions: -Bilateral L5-S1 transforaminal epidural steroid injections ordered. 5) Consultations: -None 6) Follow -up: -After injections -Patient instructed to call/seek urgent medical care with worsening of symptoms or change of neurological status. 7) Future treatment considerations: -Consult Spine Surgery if not improving with interventional options SIGNATURE: Alpa Ram DO PATIENT NAME: Irena Peraza DATE: November 11, 2023 TIME: 3:15 PM documented in this encounter [facility] 11-09-2023 Telephone encounter Note Prescription refill approved on November 09, 2023 and routed to pharmacy to be filled Rosa Elena Lui PA-C [facility] Work Phone: 11-09-2023 Miscellaneous Notes Prescription refill approved on November 09, 2023 and routed to pharmacy to be filled Rosa Elena Lui PA-C Patient Comment: I am out of ATENOLOL 50 MG TAB. Farther down the list it says that I can no longer refill this Rx-WHY??? It is either Dr. Kimball or Dr. Rosa who has prescribed it in the past. Sad part is I am out and do not want my heart to back into Afib. The last time it was written the name on the pill container is GERRY OLIVAS-NOT SURE WHO SHE IS? Please help! Not sure where to type this message so I am putting it here. Thank You Received request for refill of the following medications: Requested Prescriptions Pending Prescriptions Disp Refills furosemide (LASIX) 20 mg tablet 90 tablet 3 Sig: Take 1 tablet by mouth once daily. Patient requested a 90 day refill. Pharmacy verified and updated accordingly. Patient was last seen in cardiology office: 08-15-2023. Upcoming appointment scheduled: 02-09-2024. Labs: Hemoglobin (g/dL) Date Value 05/18/2022 13.3 08/28/2020 13.8 Hematocrit (%) Date Value 05/18/2022 41.3 08/28/2020 42.3 WBC (k/uL) Date Value 05/18/2022 6.94 08/28/2020 7.89 Platelet Count (k/uL) Date Value 05/18/2022 271 08/28/2020 263 Creatinine Date Value Ref Range Status 10/11/2023 1.02 0.73 - 1.22 mg/dL Final 04/26/2023 1.17 0.73 - 1.22 mg/dL Final documented in this encounter [facility] 11-09-2023 Telephone encounter Note Patient Comment: I am out of ATENOLOL 50 MG TAB. Farther down the list it says that I can no longer refill this Rx-WHY??? It is either Dr. Kimball or Dr. Rosa who has prescribed it in the past. Sad part is I am out and do not want my heart to back into Afib. The last time it was written the name on the pill container is GERRY OLIVAS-NOT SURE WHO SHE IS? Please help! Not sure where to type this message so I am putting it here. Thank You Received request for refill of the following medications: Requested Prescriptions Pending Prescriptions Disp Refills furosemide (LASIX) 20 mg tablet 90 tablet 3 Sig: Take 1 tablet by mouth once daily. Patient requested a 90 day refill. Pharmacy verified and updated accordingly. Patient was last seen in cardiology office: 08-15-2023. Upcoming appointment scheduled: 02-09-2024. Labs: Hemoglobin (g/dL) Date Value 05/18/2022 13.3 08/28/2020 13.8 Hematocrit (%) Date Value 05/18/2022 41.3 08/28/2020 42.3 WBC (k/uL) Date Value 05/18/2022 6.94 08/28/2020 7.89 Platelet Count (k/uL) Date Value 05/18/2022 271 08/28/2020 263 Creatinine Date Value Ref Range Status 10/11/2023 1.02 0.73 - 1.22 mg/dL Final 04/26/2023 1.17 0.73 - 1.22 mg/dL Final [facility] 11-01-2023 Hospital Discharge instructions Patient Education 11/01/2023 10:41:40 Erectile Dysfunction Erectile Dysfunction Erectile dysfunction (ED) is the inability to get or keep an erection in order to have sexual intercourse. ED is considered a symptom of an underlying disorder and is not considered a disease. ED may include: Inability to get an erection. Lack of enough hardness of the erection to allow penetration. Loss of erection before sex is finished. What are the causes? This condition may be caused by: Physical causes, such as: ?Artery problems. This may include heart disease, high blood pressure, atherosclerosis, and diabetes. ?Hormonal problems, such as low testosterone. ?Obesity. ?Nerve problems. This may include back or pelvic injuries, multiple sclerosis, Parkinson's disease, spinal cord injury, and stroke. Certain medicines, such as: ?Pain relievers. ?Antidepressants. ?Blood pressure medicines and water pills (diuretics). ?Cancer medicines. ?Antihistamines. ?Muscle relaxants. Lifestyle factors, such as: ?Use of drugs such as marijuana, cocaine, or opioids. ?Excessive use of alcohol. ?Smoking. ?Lack of physical activity or exercise. Psychological causes, such as: ?Anxiety or stress. ?Sadness or depression. ?Exhaustion. ?Fear about sexual performance. ?Guilt. What are the signs or symptoms? Symptoms of this condition include: Inability to get an erection. Lack of enough hardness of the erection to allow penetration. Loss of the erection before sex is finished. Sometimes having normal erections, but with frequent unsatisfactory episodes. Low sexual satisfaction in either partner due to erection problems. A curved penis occurring with erection. The curve may cause pain, or the penis may be too curved to allow for intercourse. Never having nighttime or morning erections. How is this diagnosed? This condition is often diagnosed by: Performing a physical exam to find other diseases or specific problems with the penis. Asking you detailed questions about the problem. Doing tests, such as: ?Blood tests to check for diabetes mellitus or high cholesterol, or to measure hormone levels. ?Other tests to check for underlying health conditions. ?An ultrasound exam to check for scarring. ?A test to check blood flow to the penis. Doing a sleep study at home to measure nighttime erections. How is this treated? This condition may be treated by: Medicines, such as: ?Medicine taken by mouth to help you achieve an erection (oral medicine). ?Hormone replacement therapy to replace low testosterone levels. ?Medicine that is injected into the penis. Your health care provider may instruct you how to give yourself these injections at home. ?Medicine that is delivered with a short applicator tube. The tube is inserted into the opening at the tip of the penis, which is the opening of the urethra. A tiny pellet of medicine is put in the urethra. The pellet dissolves and enhances erectile function. This is also called MUSE (medicated urethral system for erections) therapy. Vacuum pump. This is a pump with a ring on it. The pump and ring are placed on the penis and used to create pressure that helps the penis become erect. Penile implant surgery. In this procedure, you may receive: ?An inflatable implant. This consists of cylinders, a pump, and a reservoir. The cylinders can be inflated with a fluid that helps to create an erection, and they can be deflated after intercourse. ?A semi-rigid implant. This consists of two silicone rubber rods. The rods provide some rigidity. They are also flexible, so the penis can both curve downward in its normal position and become straight for sexual intercourse. Blood vessel surgery to improve blood flow to the penis. During this procedure, a blood vessel from a different part of the body is placed into the penis to allow blood to flow around (bypass) damaged or blocked blood vessels. Lifestyle changes, such as exercising more, losing weight, and quitting smoking. Follow these instructions at home: Medicines Take sgel-kdt-wcsdvzb and prescription medicines only as told by your health care provider. Do not increase the dosage without first discussing it with your health care provider. If you are using self-injections, do injections as directed by your health care provider. Make sure you avoid any veins that are on the surface of the penis. After giving an injection, apply pressure to the injection site for 5 minutes. Talk to your health care provider about how to prevent headaches while taking ED medicines. These medicines may cause a sudden headache due to the increase in blood flow in your body. General instructions Exercise regularly, as directed by your health care provider. Work with your health care provider to lose weight, if needed. Do not use any products that contain nicotine or tobacco. These products include cigarettes, chewing tobacco, and vaping devices, such as e-cigarettes. If you need help quitting, ask your health care provider. Before using a vacuum pump, read the instructions that come with the pump and discuss any questions with your health care provider. Keep all follow-up visits. This is important. Contact a health care provider if: You feel nauseous. You are vomiting. You get sudden headaches while taking ED medicines. You have any concerns about your sexual health. Get help right away if: You are taking oral or injectable medicines and you have an erection that lasts longer than 4 hours. If your health care provider is unavailable, go to the nearest emergency room for evaluation. An erection that lasts much longer than 4 hours can result in permanent damage to your penis. You have severe pain in your groin or abdomen. You develop redness or severe swelling of your penis. You have redness spreading at your groin or lower abdomen. You are unable to urinate. You experience chest pain or a rapid heartbeat (palpitations) after taking oral medicines. These symptoms may represent a serious problem that is an emergency. Do not wait to see if the symptoms will go away. Get medical help right away. Call your local emergency services (911 in the [place] Do not drive yourself to the hospital. Summary Erectile dysfunction (ED) is the inability to get or keep an erection during sexual intercourse. This condition is diagnosed based on a physical exam, your symptoms, and tests to determine the cause. Treatment varies depending on the cause and may include medicines, hormone therapy, surgery, or a vacuum pump. You may need follow-up visits to make sure that you are using your medicines or devices correctly. Get help right away if you are taking or injecting medicines and you have an erection that lasts longer than 4 hours. This information is not intended to replace advice given to you by your health care provider. Make sure you discuss any questions you have with your health care provider. Document Revised: 07/15/2021 Document Reviewed: 07/15/2021 [employer] Patient Education 2022 [employer]. Follow Up Care 10/24/2023 10:07:13 With:ALLAN JARVIS, Nghia Elizabeth, URL Address: [address] [facility] [address] [place], [place] [id number]- When: Unknown [facility] 11-01-2023 Note Patient Education Urology Erectile Dysfunction Erectile dysfunction (ED) is the inability to get or keep an erection in order to have sexual intercourse. ED is considered a symptom of an underlying disorder and is not considered a disease. ED may include: ? Inability to get an erection. ? Lack of enough hardness of the erection to allow penetration. ? Loss of erection before sex is finished. What are the causes? This condition may be caused by: ? Physical causes, such as: ? Artery problems. This may include heart disease, high blood pressure, atherosclerosis, and diabetes. ? Hormonal problems, such as low testosterone. ? Obesity. ? Nerve problems. This may include back or pelvic injuries, multiple sclerosis, Parkinson's disease, spinal cord injury, and stroke. ? Certain medicines, such as: ? Pain relievers. ? Antidepressants. ? Blood pressure medicines and water pills (diuretics). ? Cancer medicines. ? Antihistamines. ? Muscle relaxants. ? Lifestyle factors, such as: ? Use of drugs such as marijuana, cocaine, or opioids. ? Excessive use of alcohol. ? Smoking. ? Lack of physical activity or exercise. ? Psychological causes, such as: ? Anxiety or stress. ? Sadness or depression. ? Exhaustion. ? Fear about sexual performance. ? Guilt. What are the signs or symptoms? Symptoms of this condition include: ? Inability to get an erection. ? Lack of enough hardness of the erection to allow penetration. ? Loss of the erection before sex is finished. ? Sometimes having normal erections, but with frequent unsatisfactory episodes. ? Low sexual satisfaction in either partner due to erection problems. ? A curved penis occurring with erection. The curve may cause pain, or the penis may be too curved to allow for intercourse. ? Never having nighttime or morning erections. How is this diagnosed? This condition is often diagnosed by: ? Performing a physical exam to find other diseases or specific problems with the penis. ? Asking you detailed questions about the problem. ? Doing tests, such as: ? Blood tests to check for diabetes mellitus or high cholesterol, or to measure hormone levels. ? Other tests to check for underlying health conditions. ? An ultrasound exam to check for scarring. ? A test to check blood flow to the penis. ? Doing a sleep study at home to measure nighttime erections. How is this treated? This condition may be treated by: ? Medicines, such as: ? Medicine taken by mouth to help you achieve an erection (oral medicine). ? Hormone replacement therapy to replace low testosterone levels. ? Medicine that is injected into the penis. Your health care provider may instruct you how to give yourself these injections at home. ? Medicine that is delivered with a short applicator tube. The tube is inserted into the opening at the tip of the penis, which is the opening of the urethra. A tiny pellet of medicine is put in the urethra. The pellet dissolves and enhances erectile function. This is also called MUSE (medicated urethral system for erections) therapy. ? Vacuum pump. This is a pump with a ring on it. The pump and ring are placed on the penis and used to create pressure that helps the penis become erect. ? Penile implant surgery. In this procedure, you may receive: ? An inflatable implant. This consists of cylinders, a pump, and a reservoir. The cylinders can be inflated with a fluid that helps to create an erection, and they can be deflated after intercourse. ? A semi-rigid implant. This consists of two silicone rubber rods. The rods provide some rigidity. They are also flexible, so the penis can both curve downward in its normal position and become straight for sexual intercourse. ? Blood vessel surgery to improve blood flow to the penis. During this procedure, a blood vessel from a different part of the body is placed into the penis to allow blood to flow around (bypass) damaged or blocked blood vessels. ? Lifestyle changes, such as exercising more, losing weight, and quitting smoking. Follow these instructions at home: Medicines ? Take wwac-hyv-iwdwfep and prescription medicines only as told by your health care provider. Do not increase the dosage without first discussing it with your health care provider. ? If you are using self-injections, do injections as directed by your health care provider. Make sure you avoid any veins that are on the surface of the penis. After giving an injection, apply pressure to the injection site for 5 minutes. ? Talk to your health care provider about how to prevent headaches while taking ED medicines. These medicines may cause a sudden headache due to the increase in blood flow in your body. General instructions ? Exercise regularly, as directed by your health care provider. Work with your health care provider to lose weight, if needed. ? Do not use any products that contain nicotine or tobacco. These (more content not included)... [facility] 10-20-2023 Telephone encounter Note Patient Comment: When my legs swell, my left leg more than my right is swollen, but not enough that either one of them hurt. or do I normally don't have pain in my legs. I have been taking Lasix 2x per day. I been doing this for the past couple months not more than 2 or 3 days at a time. I have done this only 2 or 3,times in the last couple months. I have not had 2 Lasix in one day for approx. a month. It seems ok, but primary said to tell you-just incase of drug interaction, that is why I am running out Received request for refill of the following medications: Requested Prescriptions Pending Prescriptions Disp Refills furosemide (LASIX) 20 mg tablet 90 tablet 3 Sig: Take 1 tablet by mouth once daily. Patient requested a 90 day refill. Pharmacy verified and updated accordingly. Patient was last seen in cardiology office: 08-15-2023. Upcoming appointment scheduled: 02-09-2024. Labs: Hemoglobin (g/dL) Date Value 05/18/2022 13.3 08/28/2020 13.8 Hematocrit (%) Date Value 05/18/2022 41.3 08/28/2020 42.3 WBC (k/uL) Date Value 05/18/2022 6.94 08/28/2020 7.89 Platelet Count (k/uL) Date Value 05/18/2022 271 08/28/2020 263 Creatinine Date Value Ref Range Status 10/11/2023 1.02 0.73 - 1.22 mg/dL Final 04/26/2023 1.17 0.73 - 1.22 mg/dL Final [facility] 10-20-2023 Miscellaneous Notes Patient Comment: When my legs swell, my left leg more than my right is swollen, but not enough that either one of them hurt. or do I normally don't have pain in my legs. I have been taking Lasix 2x per day. I been doing this for the past couple months not more than 2 or 3 days at a time. I have done this only 2 or 3,times in the last couple months. I have not had 2 Lasix in one day for approx. a month. It seems ok, but primary said to tell you-just incase of drug interaction, that is why I am running out Received request for refill of the following medications: Requested Prescriptions Pending Prescriptions Disp Refills furosemide (LASIX) 20 mg tablet 90 tablet 3 Sig: Take 1 tablet by mouth once daily. Patient requested a 90 day refill. Pharmacy verified and updated accordingly. Patient was last seen in cardiology office: 08-15-2023. Upcoming appointment scheduled: 02-09-2024. Labs: Hemoglobin (g/dL) Date Value 05/18/2022 13.3 08/28/2020 13.8 Hematocrit (%) Date Value 05/18/2022 41.3 08/28/2020 42.3 WBC (k/uL) Date Value 05/18/2022 6.94 08/28/2020 7.89 Platelet Count (k/uL) Date Value 05/18/2022 271 08/28/2020 263 Creatinine Date Value Ref Range Status 10/11/2023 1.02 0.73 - 1.22 mg/dL Final 04/26/2023 1.17 0.73 - 1.22 mg/dL Final documented in this encounter [facility] 10-03-2023 Telephone encounter Note Quarterly labs placed for the patient The following approved medication requests have been transmitted electronically. Requested Prescriptions Signed Prescriptions Disp Refills dofetilide (TIKOSYN) 500 mcg capsule 180 capsule 3 Sig: Take 1 capsule by mouth two times a day. Authorizing Provider: ODALYS ROSA Ordering User: TERESA GOLDBERG APRN.SLUBBER [employer] CHANGER [facility] 10-03-2023 Miscellaneous Notes Quarterly labs placed for the patient The following approved medication requests have been transmitted electronically. Requested Prescriptions Signed Prescriptions Disp Refills dofetilide (TIKOSYN) 500 mcg capsule 180 capsule 3 Sig: Take 1 capsule by mouth two times a day. Authorizing Provider: ODALYS ROSA Ordering User: TERESA GOLDBERG APRN.[employer]UBBER [employer] CHANGER Received request for refill of the following medications: Requested Prescriptions Pending Prescriptions Disp Refills dofetilide (TIKOSYN) 500 mcg capsule 180 capsule 3 Sig: Take 1 capsule by mouth two times a day. Patient requested a 90 day refill. Pharmacy verified and updated accordingly. Patient was last seen in cardiology office: 08/15/2023 w/ Dr. Rosa. Upcoming appointment scheduled: 02/09/2024 w/ Dr. Rosa. Labs: Hemoglobin (g/dL) Date Value 05/18/2022 13.3 08/28/2020 13.8 Hematocrit (%) Date Value 05/18/2022 41.3 08/28/2020 42.3 WBC (k/uL) Date Value 05/18/2022 6.94 08/28/2020 7.89 Platelet Count (k/uL) Date Value 05/18/2022 271 08/28/2020 263 Creatinine Date Value Ref Range Status 04/26/2023 1.17 0.73 - 1.22 mg/dL Final 05/12/2022 0.98 0.73 - 1.22 mg/dL Final documented in this encounter [facility] 10-03-2023 Telephone encounter Note Received request for refill of the following medications: Requested Prescriptions Pending Prescriptions Disp Refills dofetilide (TIKOSYN) 500 mcg capsule 180 capsule 3 Sig: Take 1 capsule by mouth two times a day. Patient requested a 90 day refill. Pharmacy verified and updated accordingly. Patient was last seen in cardiology office: 08/15/2023 w/ Dr. Rosa. Upcoming appointment scheduled: 02/09/2024 w/ Dr. Rosa. Labs: Hemoglobin (g/dL) Date Value 05/18/2022 13.3 08/28/2020 13.8 Hematocrit (%) Date Value 05/18/2022 41.3 08/28/2020 42.3 WBC (k/uL) Date Value 05/18/2022 6.94 08/28/2020 7.89 Platelet Count (k/uL) Date Value 05/18/2022 271 08/28/2020 263 Creatinine Date Value Ref Range Status 04/26/2023 1.17 0.73 - 1.22 mg/dL Final 05/12/2022 0.98 0.73 - 1.22 mg/dL Final [facility] 09-27-2023 Telephone encounter Note Tried to reach patient for post-injection phone call [phone]. Left office number for patient to call back. [employer] message/questionairre sent regarding post-injection. Tremaine Joseph RN [facility] 09-27-2023 Miscellaneous Notes Tried to reach patient for post-injection phone call [phone]. Left office number for patient to call back. [employer] message/questionairre sent regarding post-injection. Tremaine Joseph RN documented in this encounter [facility] 09-16-2023 Telephone encounter Note Patients insurance [employer] is calling Angeli Kimball MD today to provide update. [employer] contacted this patient today 09/16/23. Patient informed his insurance that per a recommendation from the PCP they increased lasix from 20 mg to 40 mg to due lower leg swelling- per devoted the increase has helped the patient Please review and advise. Patient has been identified by name and birthdate. Duration of symptoms: unknown-patient not available at time of coronary care unit nurse calling: insurance rep Call patient at: at home and on cell [phone] (home) [phone] (cell) Was an appointment scheduled: No Closing statement: Symptom Call: Thank you for calling [facility], your call is very important. A nurse will call in approximately 2-4 hours during business hours. If this is an emergency, please contact 911. Chelita Tapia [facility] 09-16-2023 Miscellaneous Notes Patients insurance [employer] is calling Angeli Kimball MD today to provide update. [employer] contacted this patient today 09/16/23. Patient informed his insurance that per a recommendation from the PCP they increased lasix from 20 mg to 40 mg to due lower leg swelling- per devoted the increase has helped the patient Please review and advise. Patient has been identified by name and birthdate. Duration of symptoms: unknown-patient not available at time of coronary care unit nurse calling: insurance rep Call patient at: at home and on cell [phone] (home) [phone] (cell) Was an appointment scheduled: No Closing statement: Symptom Call: Thank you for calling [facility], your call is very important. A nurse will call in approximately 2-4 hours during business hours. If this is an emergency, please contact 911. Chelita Tapia documented in this encounter [facility] 09-13-2023 Telephone encounter Note Attempted to reach patient via telephone for pre-procedure instructions regarding procedure with Dr. Ram on 09/20/2023 at contact number [phone], patient unable to talk on phone at this time. Left office number on voicemail. [email or web address] message sent with pre-procedure guidelines for injection. Tremaine Joseph RN [facility] 09-13-2023 Miscellaneous Notes Attempted to reach patient via telephone for pre-procedure instructions regarding procedure with Dr. Ram on 09/20/2023 at contact number [phone], patient unable to talk on phone at this time. Left office number on voicemail. MyChart message sent with pre-procedure guidelines for injection. Tremaine Joseph RN documented in this encounter [facility] 08-29-2023 Telephone encounter Note Spoke to pharmacy it went through insurance. Just waiting for lemon picker. [facility] 08-29-2023 Miscellaneous Notes Spoke to pharmacy it went through insurance. Just waiting for lemon picker. Spoke to pharmacy they have not put script in yet but will call me back once they have. Images from the original note were not included. Received: Today Alpa Ram, DO Delfina Hwang, BEN Lyrica prescribed, but pop up notification says prior auth is needed. Can you check on that please? I am switching him from Gabapentin because it is causing dry mouth and lower extremity edema. Thank you documented in this encounter [facility] 08-29-2023 Note HNO ID: [id number] Author: JESSIKA AVILA RT(R) Service: ? Author Type: Technologist Type: Progress Notes Filed: 08/29/2023 11:23 Note Text: Radiology Service Progress Note PATIENT NAME: Irena Peraza DATE OF SERVICE: August 29, 2023 TIME: 11:22 AM PATIENT IDENTITY VERIFICATION COMPLETED USING TWO (2) IDENTIFIERS: Name and Date of confirmed by patient verbally. FALL SCREENING: Has the patient had 2 falls in the last year or 1 fall with injury or currently using an Ambulatory Assistive Device (Walker, Cane, Wheelchair, Crutches, etc.)? No PATIENT GENDER DATA: Male PATIENT RELEVANT IMPLANT DATA REVIEWED: Not Applicable PATIENT PRESENTS WITH AN IMPLANTABLE OR ATTACHED SVP CHIEF MARKETING OFFICER: No RADIOLOGY DEPARTMENT: General X-ray: Exam(s) Completed: Spine X-Ray(s): Lumbar AP / LAT / L5-S1 / FLEX-EXT PERIPHERAL IV DATA: Not applicable SIGNED BY: RT Woo(R) August 29, 2023 11:22 AM [facility] 08-29-2023 History of Present illness Narrative Radiology Service Progress Note PATIENT NAME: Irena Peraza DATE OF SERVICE: August 29, 2023 TIME: 11:22 AM PATIENT IDENTITY VERIFICATION COMPLETED USING TWO (2) IDENTIFIERS: Name and Date of confirmed by patient verbally. FALL SCREENING: Has the patient had 2 falls in the last year or 1 fall with injury or currently using an Ambulatory Assistive Device (Walker, Cane, Wheelchair, Crutches, etc.)? No PATIENT GENDER DATA: Male PATIENT RELEVANT IMPLANT DATA REVIEWED: Not Applicable PATIENT PRESENTS WITH AN IMPLANTABLE OR ATTACHED SVP CHIEF MARKETING OFFICER: No RADIOLOGY DEPARTMENT: General X-ray: Exam(s) Completed: Spine X-Ray(s): Lumbar AP / LAT / L5-S1 / FLEX-EXT PERIPHERAL IV DATA: Not applicable SIGNED BY: RT Woo(R) August 29, 2023 11:22 AM documented in this encounter [facility] 08-29-2023 Telephone encounter Note Spoke to pharmacy they have not put script in yet but will call me back once they have. [facility] 08-29-2023 Telephone encounter Note Images from the original note were not included. Received: Today Alpa Ram, DO Delfina Hwang, RN Jr prescribed, but pop up notification says prior auth is needed. Can you check on that please? I am switching him from Gabapentin because it is causing dry mouth and lower extremity edema. Thank you [facility] 08-29-2023 Note HNO ID: [id number] Author: ALPA RAM, DO Service: ? Author Type: Physician Type: Progress Notes Filed: 09/01/2023 19:12 Note Text: [facility] Neurological [facility] - Medical Spine Established Patient SUBJECTIVE HISTORY OF PRESENT ILLNESS: Irena Peraza is a 78 year old male who presents for f/u of low back pain. Last visit: MRI lumbar reviewed, Rx Gabapentin and PT. Patient has attended PT with little relief. With PT he has been able to find positions to bring the pain down, but with movement or certain positions he continues to have pain. Taking Gabapentin with some benefit, but causes dry mouth. He continues to have pain in the lumbosacral back midline, like a knife. He gets radiating pain and numbness down the LLE posteriorly to the foot. Significant numbness left foot diffusely when taking a shower. Less numbness in right foot. Sometimes feels like legs might buckle with pain. Pain is 3-4/10 while sitting, but with movement it can go up to 10/10, described as a bolt of lightning . Initial visit 06/22/23: Reports low back pain for at least 30+ years, had L5-S1 discectomy in . Pain fluctuates on and off for a long time. Recently says his pain is now in the low back and buttock, some along the sacral region as well, worse with standing. Worst pain is midline lumbosacral region. Reports tingling and pain down the left > right leg, down the posterior thigh and leg, all the way to the foot. Denies weakness. Denies bowel/bladder incontinence or saddle anesthesia. The pain is currently 3/10. The pain can get to 8/10 at the highest. PAIN EVALUATION 08/28/2023 2149 Pain Level: 9 Pain Location: Buttocks-Left Description: Burning;Numbness;Radiating;Sharp;S tabbing Duration Units: Minutes Frequency: Continuous Intervention/Comfort measure: Medication;Massage Pain Radiation: As above Aggravating Factors: Standing, leaning forward Transfers Alleviating Factors: Stretching Sitting Child's pose Pain Ratio: midline lumbosacral back Current Treatment: Medications Tylenol 650mg 2 pills PRN Cymbalta 60mg Gabapentin 300 mg TID - mild benefit, causing dry mouth and mild increase in chronic BLE edema Therapies PT HEP 3 times per week PT: [facility], Rachell Gilliam PT, 06/28-08/26/23, 8 visits, discharged by therapist due to no progress. PT reports sharp pain w/ movement b/w static postures indicating spinal instability. Pain w/ transfers up to 8-9/10, subsides after 30-60 seconds down to 4/10. Positions are variable, prone postures sometimes relieve, sometimes worsen. Laying prone w/ pillow under hips is consistent, but transferring to prone can be provoking. Sxs include central back pain, n/t thighs, LLE down to foot, occasionally toes. Pain with initial extension then improves w/ repeat, tolerates prone press up minimal pain and no peripheralization. Prior Treatment: Medications none Therapies Acupuncture for the neck Prior spine interventions: -RFA he thinks was done in the neck, maybe 5 years ago at [facility] -4-5 years ago he recalls having lumbar spine injections Prior spine surgery: L5-S1 discectomy in Previously treated by: -Recently seen by PA working with Spine Surgeon Dr. Al Wiley in [place] and was planning water PT. -Spine Medicine Dr. Bellamy. 2019 for cervical spine. Has had RFA locally and can pursue that. Try ROM exercises. Trial of Acupuncture for pain. PMH: PUD, GERD Afib s/p Watchman procedure, off Eliquis now CHF COPD h/o cancer: Melanoma PSH: PAST SURGICAL HISTORY Procedure Laterality Date APPENDECTOMY HX BACK SURGERY HX L5, S1 removed CARDIAC CATH 03/26/13 40-50% disease in mid LAD CARDIOVERSION 11/14/15 CATHETER, ABLATION A-Fib, 2003 at [facility] HERNIA REPAIR HX 05/2011 left inguinal PAST SURGICAL HISTORY OF skin cancer removed from back, and from leg, nose,; also cyst removed PAST SURGICAL HISTORY OF 2013 Melanoma removed from left breast. PAST SURGICAL HISTORY OF 2012 bilateral cataract removal PAST SURGICAL HISTORY OF Left carpal tunnel release PAST SURGICAL HISTORY OF Right 2017 varicose vein surgery ROTATOR CUFF REPAIR x4 (2 on each shoulder) SHOULDER LEFT OUT PT SURGERY 08/2015 reverse total shoulder TONSILLECTOMY HX Social Tobacco: Former smoker Personal life: daughter is a dentist, son is a nurse Occupation: Retired Litigation: No Workers' Compensation: No YELLOW AND BLUE FLAGS No-Neg Attitude; Back Pain is Disabling No-Avoiding Activity (for Fear of Pain) No-Depression or Anxiety Disorders No-Social Problems No-Substance Use Disorder No-Job Dissatisfaction No-Financial Disincentives Patient Entered Questionnaires 08/28/2023 Spine Questions Pain Location: Lower back Pain Duration: 1 to 5 years Pain over last 6 months: Every day (more content not included)... [facility] 08-29-2023 History of Present illness Narrative Images from the original note were not included. [facility] [place] [facility] - Medical Spine Established Patient SUBJECTIVE HISTORY OF PRESENT ILLNESS: Irena Peraza is a 78 year old male who presents for f/u of low back pain. Last visit: MRI lumbar reviewed, Rx Gabapentin and PT. Patient has attended PT with little relief. With PT he has been able to find positions to bring the pain down, but with movement or certain positions he continues to have pain. Taking Gabapentin with some benefit, but causes dry mouth. He continues to have pain in the lumbosacral back midline, like a knife. He gets radiating pain and numbness down the LLE posteriorly to the foot. Significant numbness left foot diffusely when taking a shower. Less numbness in right foot. Sometimes feels like legs might buckle with pain. Pain is 3-4/10 while sitting, but with movement it can go up to 10/10, described as a bolt of lightning . Initial visit 06/22/23: Reports low back pain for at least 30+ years, had L5-S1 discectomy in . Pain fluctuates on and off for a long time. Recently says his pain is now in the low back and buttock, some along the sacral region as well, worse with standing. Worst pain is midline lumbosacral region. Reports tingling and pain down the left > right leg, down the posterior thigh and leg, all the way to the foot. Denies weakness. Denies bowel/bladder incontinence or saddle anesthesia. The pain is currently 3/10. The pain can get to 8/10 at the highest. PAIN EVALUATION 08/28/20239 Pain Level: 9 Pain Location: Buttocks-Left Description: Burning;Numbness;Radiating;Sharp;S tabbing Duration Units: Minutes Frequency: Continuous Intervention/Comfort measure: Medication;Massage Pain Radiation: As above Aggravating Factors: Standing, leaning forward Transfers Alleviating Factors: Stretching Sitting Child's pose Pain Ratio: midline lumbosacral back Current Treatment: Medications Tylenol 650mg 2 pills PRN Cymbalta 60mg Gabapentin 300 mg TID - mild benefit, causing dry mouth and mild increase in chronic BLE edema Therapies PT HEP 3 times per week PT: [facility], Rachell Gilliam PT, 06/28-08/26/23, 8 visits, discharged by therapist due to no progress. PT reports sharp pain w/ movement b/w static postures indicating spinal instability. Pain w/ transfers up to 8-9/10, subsides after 30-60 seconds down to 4/10. Positions are variable, prone postures sometimes relieve, sometimes worsen. Laying prone w/ pillow under hips is consistent, but transferring to prone can be provoking. Sxs include central back pain, n/t thighs, LLE down to foot, occasionally toes. Pain with initial extension then improves w/ repeat, tolerates prone press up minimal pain and no peripheralization. Prior Treatment: Medications none Therapies Acupuncture for the neck Prior spine interventions: -RFA he thinks was done in the neck, maybe 5 years ago at [facility] -4-5 years ago he recalls having lumbar spine injections Prior spine surgery: L5-S1 discectomy in Previously treated by: -Recently seen by PA working with Spine Surgeon Dr. Al Wiley in [place] and was planning [facility] PT. -Spine Medicine Dr. Bellamy. 2019 for cervical spine. Has had RFA locally and can pursue that. Try ROM exercises. Trial of Acupuncture for pain. PMH: PUD, GERD Afib s/p Watchman procedure, off Eliquis now CHF COPD h/o cancer: Melanoma PSH: PAST SURGICAL HISTORY Procedure Laterality Date APPENDECTOMY HX BACK SURGERY HX L5, S1 removed CARDIAC CATH 03/26/13 40-50% disease in mid LAD CARDIOVERSION 11/14/15 CATHETER, ABLATION A-Fib, 2003 at [facility] HERNIA REPAIR HX 05/2011 left inguinal PAST SURGICAL HISTORY OF skin cancer removed from back, and from leg, nose,; also cyst removed PAST SURGICAL HISTORY OF 2012 Melanoma removed from left breast. PAST SURGICAL HISTORY OF 2012 bilateral cataract removal PAST SURGICAL HISTORY OF Left carpal tunnel release PAST SURGICAL HISTORY OF Right 2017 varicose vein surgery ROTATOR CUFF REPAIR x4 (2 on each shoulder) SHOULDER LEFT OUT PT SURGERY 08/2015 reverse total shoulder TONSILLECTOMY HX Social Tobacco: Former smoker Personal life: daughter is a dentist, son is a nurse Occupation: Retired Litigation: No Workers' Compensation: No YELLOW & BLUE FLAGS No-Neg Attitude; Back Pain is Disabling No-Avoiding Activity (for Fear of Pain) No-Depression or Anxiety Disorders No-Social Problems No-Substance Use Disorder No-Job Dissatisfaction No-Financial Disincentives Patient Entered Questionnaires 08/28/2023 Spine Questions Pain Location: Lower back Pain Duration: 1 to 5 years Pain over last 6 months: Every day or nearly every day in the past 6 months Symptoms from neck/cervical spine: No Employment Status: Retired Involved in law suit/legal claim: No 08/28/2023 Spine Red Flags Any type of cancer: Yes Unexplained fever: No Bowel or bladder disfunction: No Unintentional weight loss: No Osteoporosis: Yes PROMIS Score Percentiles 08/28/2023 Physical Health Physical Function Percentile 7 Sleep Percentile 27* Fatigue Percentile 4 Pain Interference Percentile 4 08/28/2023 PROMIS SOCIAL ROLE SCORE Social Role Satisfaction Percentile 24* 09/21/2016 02/10/2017 08/28/2023 PROMIS Global Health Scale Physical Health Percentile 41 22* 4 Mental Health Percentile 26* 26* 13 Percentiles provide an indication of how the patient's score ranks in relation to the general population. Higher percentile rankings indicate better function/quality of life. 50th percentile is the average of the general population and indicates half of respondents had a worse score. Depression Screenin09/01/2011 06/26/2018 08/28/2023 PHQ-9 Score 2 3 10 08/28/2023 06/26/2018 09/01/2011 PHQ-9 Self Harm Question 9 Not at all Not at all Not at all PHQ-9 Self-Harm (Item 9) response options: 0 Not at all 1 Several days 2 More than half the days 3 Nearly every day PHQ-9 Levels: 0-4 No - mild depression 5-9 Mild depression 10-14 Moderate depression 15-19 Moderately severe depression 20-27 Severe depression ACTIVE PROBLEM LIST Paf (Paroxysmal Atrial Fibrillation) (Hcc) Former Smoker Obstructive Lung Disease (Hcc) Hyperlipemia Pud (Peptic Ulcer Disease) Gerd (Gastroesophageal Reflux Disease) Carpal Tunnel Syndrome Hx of Neck Disorder Rotator Cuff Tear Arthritis Depression Alcohol Use Lprd (Laryngopharyngeal Reflux Disease) Chronic Throat Clearing Biceps Rupture, Proximal Contracture of Shoulder Rotator Cuff Tear Arthropathy Complete Tear of Left Rotator Cuff Melanoma (Hcc) Htn (Hypertension), Benign Cervical Spine Pain Osteoarthritis Limitation of Joint Motion of Shoulder Acute On Chronic Diastolic Congestive Heart Failure (Hcc) Chronic Diastolic Congestive Heart Failure (Hcc) Right Shoulder Pain Stiffness of Shoulder Joint Weakness of Shoulder Obesity, Class I, Bmi 30-34.9 Persistent Atrial Fibrillation (Hcc) Visit for Monitoring Tikosyn Therapy Gastrointestinal Hemorrhage IRB [id number] WATCHAMAN FLX Real World Evidence (WATCH RWE) PI: Dr. Marcos Bermudez Atrial Fibrillation (Hcc) Low Back Pain, Unspecified PAST MEDICAL HISTORY Diagnosis Date Arthritis CAD (coronary artery disease) 03/26/2013 40-50% mid LAD Carpal tunnel syndrome Cervical spine pain COPD (chronic obstructive pulmonary disease) (HCC) Depression Diastolic heart failure (HCC) GERD (gastroesophageal reflux disease) HTN (hypertension), benign patient denies this Hypercholesterolemia Hyperlipemia Left atrial dilatation Melanoma (HCC) 2012 left breast melanoma s/p surgery. Obstructive lung disease (HCC) PAF (paroxysmal atrial fibrillation) (HCC) 2003 s/p ablation 2003 PUD (peptic ulcer disease) remote RLS (restless legs syndrome) Rotator cuff tear x2 each shoulder PAST SURGICAL HISTORY Procedure Laterality Date APPENDECTOMY HX BACK SURGERY HX L5, S1 removed CARDIAC CATH 03/26/13 40-50% disease in mid LAD CARDIOVERSION 11/14/15 CATHETER, ABLATION A-Fib, 2003 at [facility] HERNIA REPAIR HX 05/2011 left inguinal PAST SURGICAL HISTORY OF skin cancer removed from back, and from leg, nose,; also cyst removed PAST SURGICAL HISTORY OF 2013 Melanoma removed from left breast. PAST SURGICAL HISTORY OF 2012 bilateral cataract removal PAST SURGICAL HISTORY OF Left carpal tunnel release PAST SURGICAL HISTORY OF Right 2017 varicose vein surgery ROTATOR CUFF REPAIR x4 (2 on each shoulder) SHOULDER LEFT OUT PT SURGERY 08/2015 reverse total shoulder TONSILLECTOMY HX Social History Tobacco Use Smoking status: Former Packs/day: 1.50 Years: 15.00 Additional pack years: 0.00 Total pack years: 22.50 Types: Cigarettes Quit date: 05/02/1985 Years since quittin.3 Smokeless tobacco: Never Substance Use Topics Alcohol use: Yes Alcohol/week: 10.0 standard drinks of alcohol Types: 10 Standard drinks or equivalent per week Comment: has an occasional drink, previously drank 2-3 per day Drug use: No FAMILY HISTORY Problem Relation Age of Onset other (TB) Mother age 78, Tuberculosis, of natural causes Heart Father s/p AVR Coronary Artery Disease Sister s/p CABG x3 No Known Problems Sister No Known Problems Brother No Known Problems Maternal Grandmother No Known Problems Maternal Grandfather No Known Problems Paternal Grandmother No Known Problems Paternal Grandfather No Known Problems Daughter No Known Problems Daughter No Known Problems Son Heart Grandchild Shone disease; at age 6 days old ALLERGIES No Known Allergies CURRENT MEDICATIONS: omega-3/dha/epa/fish oil (OMEGA-3 ORAL) Take by mouth. atorvastatin (LIPITOR) 40 mg tablet take 1 tablet by mouth once daily acetaminophen 650 mg CR tablet Every 12 hours amoxicillin (AMOXIL) 500 mg capsule TAKE 2 CAPSULES BY MOUTH now then TAKE 1 CAPSULE BY MOUTH EVERY 6 HOURS UNTIL GONE ketoconazole (NIZORAL) 2 % cream DULoxetine (CYMBALTA) 60 mg capsule Take 1 capsule by mouth every afternoon. fluticasone-vilanterol (BREO ELLIPTA) 100-25 mcg/dose inhaler INHALE 1 PUFF BY MOUTH DAILY omega-3 acid ethyl esters (LOVAZA) 1 gram capsule Take 1,000 mg by mouth. gabapentin (NEURONTIN) 300 mg capsule Take 1 capsule by mouth three times a day for 60 days. ADVAIR DISKUS 100-50 mcg/dose inhaler Inhale as instructed two times a day. tolterodine ER (DETROL LA) 4 mg 24 hr capsule Take 4 mg by mouth once daily. furosemide (LASIX) 20 mg tablet Take 1 tablet by mouth once daily. atenolol (TENORMIN) 50 mg tablet Take 1 tablet by mouth once daily. dofetilide (TIKOSYN) 500 mcg capsule Take 1 capsule by mouth twice daily. aspirin, enteric coated (ECOTRIN LOW STRENGTH) 81 mg EC tablet Take 1 tablet by mouth once daily. Fenofibrate (LOFIBRA) 160 mg tablet TAKE 1 TABLET ONCE DAILY cholecalciferol, vitamin D3, (VITAMIN D3 ORAL) Take by mouth. magnesium oxide (MAG-OX) 400 mg (241.3 mg magnesium) tablet Take 1 tablet by mouth once daily. omeprazole (PRILOSEC) 40 mg capsule Take 40 mg by mouth once daily. rOPINIRole (REQUIP) 1 mg tablet Take 1 tablet by mouth daily at bedtime. montelukast (SINGULAIR) 10 mg tablet montelukast 10 mg tablet allopurinol (ZYLOPRIM) 100 mg tablet Take 100 mg by mouth once daily. PROCTOZONE-HC 2.5 % rectal cream APPLY TO THE AFFECTED AREA(S) 2-4 times daily fluticasone (FLONASE) 50 mcg/actuation nasal spray Use 1 [place] in each nostril once daily. coenzyme Q10 100 mg cap Take 100 mg by mouth once daily. albuterol HFA (PROAIR HFA) 90 mcg/actuation inhaler Inhale 2 Puffs as instructed every 6 hours as needed. Nczukabgfmz-Wlwvcwiff-Dyf C-Mn 500-400 mg cap Take 1 capsule by mouth twice daily. REVIEW OF SYSTEMS: 14 systems reviewed and otherwise negative unless mentioned above. OBJECTIVE: PHYSICAL EXAM BP 120/56 Pulse 84 Wt 95.4 kg (210 lb 5.1 oz) BMI 30.18 kg/m GENERAL APPEARANCE: Well nourished, well developed, and no apparent distress. NEURO PSYCH: Patient oriented to person, place, and time. Mood pleasant. Benign affect. CARDIOVASCULAR: Palpable pulses. Non-pitting BLE edema RESPIRATORY: non-labored breathing, no grunting/flaring/retractions SKIN: Head, neck, trunk, and extremities dry, intact and without lesions. MUSCULOSKELETAL VISUAL INSPECTION Posture: normal posture and alignment PALPATION: No tenderness to palpation lumbar spine SPINE ROM: LUMBAR ROM: WFL in lumbar spine without pain. Pain at times with transfers. MUSCLE BULK: Normal and symmetrical in the upper & lower extremities. MUSCLE TONE: Normal. MOTOR: 4+/5 left hip flexion, 5/5 on right. 5/5 bilateral knee flexion, knee extension, ankle dorsiflexion, plantarflexion, EHL SENSORY: sensation intact to light touch BLE REFLEXES: 2+ patellar; Trace BL achilles; 1+ medial hamstring on right and 2+ on left LONG TRACT SIGNS: No clonus. No Hoffmans. BABINSKI: absent bilateral GAIT: Non-antalgic. Able to stand on toes and heels. Able to perform tandem gait with some loss of balance STRAIGHT LEG TEST: pain on left Hip: normal IR and ER SI joint: Negative ANSLEY, negative Gaenslen's Lumbar facet loading: Pain no different from extension/rotation, pain midline Data Review: All images/reports listed below were personally reviewed by me unless otherwise indicated. [facility] and Outside records independently reviewed Images independently reviewed with the patient 08/29/23 XR lumbar: Vertebral bodies have normal height and contour. There is no compression deformity or acute bony abnormality identified. Slight dextrocurvature at L2-3 The is grade I retrolisthesis at L2-3. The is grade I anterolisthesis at L4-5. Mild multilevel lumbar disc space narrowing. Moderate multilevel lumbar facet arthrosis Alignment appears stable in flexion and extension. There are bilateral sacroiliac joint and hip degenerative changes partially visualized on this study. There is atherosclerotic disease in the abdominal aorta. 05/20/2023 MRI lumbar spine with and without contrast, [facility]: The spine is visualized and T11-12 through S2 on the diagnostic sagittal sequences. Lumbar lordosis is maintained. Anterolisthesis of L4 over L5 approximately 7 to 8 mm, similar to the prior studies. Vertebral body heights and remaining alignment are within normal limits. Minimal degenerative endplate changes. No abnormal bone marrow enhancement identified. The conus is within normal limits of signal intensity and morphology. Small renal cyst that do not require further imaging follow-up. Paraspinal soft tissues are otherwise unremarkable. No abnormal enhancement identified. T11-12: Moderate disc space narrowing, mild posterior lateral endplate osteophytosis with associated broad-based disc protrusion/bulging and moderate to marked hypertrophic facet and ligamentum flavum changes which results in borderline central spinal stenosis and moderate to marked neuroforaminal narrowing. T12-L1: Mild hypertrophic facet and ligamentum flavum changes without central spinal stenosis neuroforaminal narrowing or discrete disc protrusion. L1-2: Borderline to minimal disc base narrowing mild posterior lateral endplate osteophytosis without associated broad-based disc protrusion/bulging and mild hypertrophic facet and ligamentum flavum changes without central spinal stenosis or neural foraminal narrowing. L2-3: Mild posterior lateral endplate osteophytosis with associated broad-based disc protrusion/bulging and mild hypertrophic facet and ligamentum flavum changes without central spinal stenosis or neuroforaminal narrowing. L3-4: Borderline to minimal disc base narrowing, mild to moderate posterior lateral endplate osteophytosis with associated broad-based disc protrusion/bulging and moderate hypertrophic facet and ligamentum flavum changes which results in moderate central spinal stenosis and neuroforaminal narrowing. L4-5: Grade 1 anterolisthesis, mild to moderate to space narrowing, moderate diffuse disc bulging and marked hypertrophic facet and ligamentum flavum changes which results in moderate to marked central spinal stenosis and neuroforaminal narrowing. L5-S1: Moderate to marked to space narrowing, mild posterior lateral endplate osteophytosis with associated broad-based disc protrusion/bulging moderate hypertrophic facet and ligamentum flavum changes and previous left laminotomy, which resulted in mild to moderate neural foraminal narrowing, greater on the right. Sacrum and iliac wings are unremarkable. 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 presenting with midline lumbosacral low back pain that radiates with pain and numbness down the LLE posteriorly to the foot. Previously described pain in the RLE to lesser degree. Significant numbness left foot diffusely when taking a shower. Less numbness in right foot. Sometimes feels like legs might buckle with pain. MRI shows severe canal narrowing at L4-5 with anterolisthesis of L4 on 5, disc desiccation of L5-S1, multi level foraminal narrowing worse at L4-5 and L5-S1 and facet hypertrophy of L3-4, L4-5, and L5-S1. Suspect his problem is primarily related to lumbar stenosis with radicular symptoms, but facet OA could be involved as well. Since last visit he has completed a course of PT and continues HEP, but reports little relief. Taking Gabapentin with some benefit, but causes dry mouth and mild increase in chronic BLE edema. Treatment options discussed today and agreed to per plan below. PLAN: 1) Imaging/Diagnostic Studies: -XR lumbar spine obtained and reviewed for interventional planning -Imaging reviewed as above. 2) Therapy/Rehabilitation: -Continue PT HEP as tolerated -Activities and exercise as tolerated. Avoid heavy lifting. 3) Pharmacological Management: -Discontinue Gabapentin due to side effects. -Start Lyrica 50 mg titrate to TID as tolerated. Side effects discussed. 4) Spine/MSK Interventions: -Bilateral L5-S1 transforaminal epidural steroid injections ordered. 5) Consultations: -None 6) Follow -up: -After injections -Patient instructed to call/seek urgent medical care with worsening of symptoms or change of neurological status. 7) Future treatment considerations: -Titrate Lyrica as tolerated -Consult Spine Surgery if not improving with interventional options SIGNATURE: Alpa Ram DO PATIENT NAME: Irena Peraza DATE: August 29, 2023 TIME: 3:15 PM documented in this encounter [facility] 08-15-2023 History of Present illness Narrative [facility] NOTE NAME: IRENA PERAZA CLINIC NO.: [id number] DATE OF SERVICE: 08/15/2023 ATTENDING PHYSICIAN: Odalys Rosa M.D. Office Visit The patient is a 78-year-old man with paroxysmal atrial fibrillation. I have known him for about 5 years. Atrial fibrillation first occurred about 20 years ago. He subsequently had a PVI at the [facility]. Atrial fibrillation recurred in 2016. A few years ago, when atrial fibrillation recurred and was associated with dyspnea and fatigue, he was started on Tikosyn. On this antiarrhythmic drug, he has had no recurrence of atrial fibrillation symptoms. He has had GI bleeding of unknown source despite an extensive GI workup. Dr. Kemp implanted a Watchman device several months ago and the patient is scheduled for a followup visit and probable discontinuation of Eliquis. In general, the patient feels well. MEDICATIONS: Reviewed in Epic including atenolol 50 mg daily, Tikosyn 500 mcg twice daily. PHYSICAL EXAMINATION: He looks well. Blood pressure 136/60, pulse rate 80 and regular. Lungs: No wheezes, rales, or rhonchi. Heart: First and second heart sounds normal. EKG done on April 26, 2023, sinus rhythm, within normal limits. IMPRESSION AND RECOMMENDATIONS: He will continue his current rhythm control strategy and I will see him again in 6 months. Please note that a pharmacologic nuclear stress test done 2 months ago demonstrated normal left ventricular size and systolic function and no evidence of scar or ischemia. DICTATED BY: Sergei Deng/PAOLA JOB# [id number] documented in this encounter [facility] 07-18-2023 Note HNO ID: [id number] Author: ANGELI KIMBALL MD Service: ? Author Type: Physician Type: Progress Notes Filed: 07/18/2023 11:01 Note Text: [facility] [place] [facility] Department of Cardiovascular Medicine SECTION OF REGIONAL CARDIOLOGY OUTPATIENT VISIT DATE April 24, 2023 OUTPATIENT VISIT TYPE ESTABLISHED PRIMARY CARE PHYSICIAN: Scarlett Gaviria NP [address] [place] [id number] CHIEF COMPLAINT: Arrhythmia HISTORY OF PRESENT ILLNESS: Mr. Peraza is a pleasant 78 year old male here for cardiovascular follow-up of her Hx of Atrial Fib now s/p watchman device. On follow up visit 4 months following implantation he was seen by Dr Kemp (implanted the device) and was told to stop the apixaban and comtinue Aspirin 81mg. Scheduled for a 1 year YOGESH. He is a patient of Dr Kimball. 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 A week ago he was in the pool and he wasn't feeling well and he went to [place] ED. A CT chest was done and showed mild pulmonary edema and trace B/L pleural effusions. He was told to take his lasix twice a day for 4 days. He was also found to have EVERTON with a Cr of 1.34. He has also noted that over the last couple of months his SOB has been getting worse. He has not had any chest pain at all. The following portions of the patient's history were reviewed and updated as appropriate, allergies, current medications, past medical, social, surgical, and family history and problem list. I have personally interviewed, confirmed and edited the above information if obtained by others. CURRENT MEDICATIONS: CURRENT MEDICATIONS furosemide (LASIX) 20 mg tabletTake 1 tablet by mouth once daily.Disp: 90 tabletRfl: 3 atenolol (TENORMIN) 50 mg tabletTake 1 tablet by mouth once daily.Disp: 90 tabletRfl: 3 dofetilide (TIKOSYN) 500 mcg capsuleTake 1 capsule by mouth twice daily.Disp: 180 capsuleRfl: 3 sodium chloride 0.9 %, flush, (BD POSIFLUSH) syringeInject 2-10 mL intravenously as directed. For Echo procedureDisp: 10 mLRfl: 0 sodium chloride 0.9 %, flush, (BD POSIFLUSH) syringeInject 2-10 mL intravenously as directed. For Echo procedureDisp: 10 mLRfl: 0 aspirin, enteric coated (ECOTRIN LOW STRENGTH) 81 mg EC tabletTake 1 tablet by mouth once daily.Disp: 30 tabletRfl: 5 atorvastatin (LIPITOR) 40 mg tabletTake 1 tablet by mouth once daily.Disp: 90 tabletRfl: 3 Fenofibrate (LOFIBRA) 160 mg tabletTAKE 1 TABLET ONCE DAILYDisp: 90 tabletRfl: 3 SYMBICORT 160-4.5 mcg/actuation inhalerInhale 2 Puffs as instructed twice daily.Disp: Rfl: cholecalciferol, vitamin D3, (VITAMIN D3 ORAL)Take by mouth.Disp: Rfl: magnesium oxide (MAG-OX) 400 mg (241.3 mg magnesium) tabletTake 1 tablet by mouth once daily.Disp: 30 tabletRfl: 5 Rmkrd-8-QXV-EPA-Fish Oil 1,000 mg (120 mg-180 mg) capTake 2 g by mouth twice daily.Disp: Rfl: omeprazole (PRILOSEC) 40 mg capsuleTake 40 mg by mouth once daily.Disp: Rfl: rOPINIRole (REQUIP) 1 mg tabletTake 1 tablet by mouth daily at bedtime.Disp: Rfl: montelukast (SINGULAIR) 10 mg tabletmontelukast 10 mg tabletDisp: Rfl: allopurinol (ZYLOPRIM) 100 mg tabletTake 100 mg by mouth once daily.Disp: Rfl: 5 PROCTOZONE-HC 2.5 % rectal creamAPPLY TO THE AFFECTED AREA(S) 2-4 times dailyDisp: Rfl: 5 fluticasone (FLONASE) 50 mcg/actuation nasal sprayUse 1 [place] in each nostril once daily.Disp: Rfl: 0 coenzyme Q10 100 mg capTake 100 mg by mouth once daily. Disp: Rfl: LORATADINE (CLARITIN ORAL)Take 1 tablet by mouth once daily.Disp: Rfl: albuterol HFA (PROAIR HFA) 90 mcg/actuation inhalerInhale 2 Puffs as instructed every 6 hours as needed.Disp: 1 InhalerRfl: 0 Lgbsumwfjrs-Xwfkowtzb-Cfc C-Mn 500-400 mg capTake 1 capsule by mouth twice daily.Disp: Rfl: 0 Physical Exam There were no vitals taken for this visit. Gen: alert, no acute distress HEENT: normocephalic, atraumatic, no rinorrhea, no congestion, normal hearing, EOMI, no eye discharge Heart: no murmurs, S1/S2+, regular rate and rhythm Lungs: no wheezing, rales, symmetric expansion, nonlabored Abdomen: soft, nontender, nondistended Musculoskeletal: no edema, nontender Neurological: no focal deficits, alert, oriented Psychatric: cooperative, appropriate Pertinent Diagnostics/Labs/Data reviewed (ECG and echo listed personally reviewed) and include: Last ECHO Result Conclusion ECHO Collected: 05/18/2022 2:58 PM (Final result) Impression: CONCLUSIONS: - Exam indication: Pre Watchman, PAF - The left ventricle is normal in size. There is mild concentric left ventricular hypertrophy. Left ventricular systolic function is normal. EF = 63 ? 5% (2D biplane) - The right ventricle is normal in size. Right ventricular systolic function is normal. - The left atrial cavity is dilated. - The visualized aorta is dilated with a maximal dimensi (more content not included)... [facility] 07-18-2023 History of Present illness Narrative Images from the original note were not included. [facility] [place] [facility] Department of Cardiovascular Medicine SECTION OF REGIONAL CARDIOLOGY OUTPATIENT VISIT DATE April 24, 2023 OUTPATIENT VISIT TYPE ESTABLISHED PRIMARY CARE PHYSICIAN: [place] [id number] CHIEF COMPLAINT: Arrhythmia HISTORY OF PRESENT ILLNESS: Mr. Peraza is a pleasant 78 year old male here for cardiovascular follow-up of her Hx of Atrial Fib now s/p watchman device. On follow up visit 4 months following implantation he was seen by Dr Kemp (implanted the device) and was told to stop the apixaban and comtinue Aspirin 81mg. Scheduled for a 1 year YOGESH. He is a patient of Dr Kimball. 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 A week ago he was in the pool and he wasn't feeling well and he went to [place] ED. A CT chest was done and showed mild pulmonary edema and trace B/L pleural effusions. He was told to take his lasix twice a day for 4 days. He was also found to have EVERTON with a Cr of 1.34. He has also noted that over the last couple of months his SOB has been getting worse. He has not had any chest pain at all. The following portions of the patient's history were reviewed and updated as appropriate, allergies, current medications, past medical, social, surgical, and family history and problem list. I have personally interviewed, confirmed and edited the above information if obtained by others. CURRENT MEDICATIONS: CURRENT MEDICATIONS furosemide (LASIX) 20 mg tablet^Take 1 tablet by mouth once daily.^Disp: 90 tablet^Rfl: 3 atenolol (TENORMIN) 50 mg tablet^Take 1 tablet by mouth once daily.^Disp: 90 tablet^Rfl: 3 dofetilide (TIKOSYN) 500 mcg capsule^Take 1 capsule by mouth twice daily.^Disp: 180 capsule^Rfl: 3 sodium chloride 0.9 %, flush, (BD POSIFLUSH) syringe^Inject 2-10 mL intravenously as directed. For Echo procedure^Disp: 10 mL^Rfl: 0 sodium chloride 0.9 %, flush, (BD POSIFLUSH) syringe^Inject 2-10 mL intravenously as directed. For Echo procedure^Disp: 10 mL^Rfl: 0 aspirin, enteric coated (ECOTRIN LOW STRENGTH) 81 mg EC tablet^Take 1 tablet by mouth once daily.^Disp: 30 tablet^Rfl: 5 atorvastatin (LIPITOR) 40 mg tablet^Take 1 tablet by mouth once daily.^Disp: 90 tablet^Rfl: 3 Fenofibrate (LOFIBRA) 160 mg tablet^TAKE 1 TABLET ONCE DAILY^Disp: 90 tablet^Rfl: 3 SYMBICORT 160-4.5 mcg/actuation inhaler^Inhale 2 Puffs as instructed twice daily.^Disp: ^Rfl: cholecalciferol, vitamin D3, (VITAMIN D3 ORAL)^Take by mouth.^Disp: ^Rfl: magnesium oxide (MAG-OX) 400 mg (241.3 mg magnesium) tablet^Take 1 tablet by mouth once daily.^Disp: 30 tablet^Rfl: 5 Mahcc-4-KKL-EPA-Fish Oil 1,000 mg (120 mg-180 mg) cap^Take 2 g by mouth twice daily.^Disp: ^Rfl: omeprazole (PRILOSEC) 40 mg capsule^Take 40 mg by mouth once daily.^Disp: ^Rfl: rOPINIRole (REQUIP) 1 mg tablet^Take 1 tablet by mouth daily at bedtime.^Disp: ^Rfl: montelukast (SINGULAIR) 10 mg tablet^montelukast 10 mg tablet^Disp: ^Rfl: allopurinol (ZYLOPRIM) 100 mg tablet^Take 100 mg by mouth once daily.^Disp: ^Rfl: 5 PROCTOZONE-HC 2.5 % rectal cream^APPLY TO THE AFFECTED AREA(S) 2-4 times daily^Disp: ^Rfl: 5 fluticasone (FLONASE) 50 mcg/actuation nasal spray^Use 1 [place] in each nostril once daily.^Disp: ^Rfl: 0 coenzyme Q10 100 mg cap^Take 100 mg by mouth once daily. ^Disp: ^Rfl: LORATADINE (CLARITIN ORAL)^Take 1 tablet by mouth once daily.^Disp: ^Rfl: albuterol HFA (PROAIR HFA) 90 mcg/actuation inhaler^Inhale 2 Puffs as instructed every 6 hours as needed.^Disp: 1 Inhaler^Rfl: 0 Ovwaprtaale-Kluxubjjo-Ret C-Mn 500-400 mg cap^Take 1 capsule by mouth twice daily.^Disp: ^Rfl: 0 Physical Exam There were no vitals taken for this visit. Gen: alert, no acute distress HEENT: normocephalic, atraumatic, no rinorrhea, no congestion, normal hearing, EOMI, no eye discharge Heart: no murmurs, S1/S2+, regular rate and rhythm Lungs: no wheezing, rales, symmetric expansion, nonlabored Abdomen: soft, nontender, nondistended Musculoskeletal: no edema, nontender Neurological: no focal deficits, alert, oriented Psychatric: cooperative, appropriate Pertinent Diagnostics/Labs/Data reviewed (ECG and echo listed personally reviewed) and include: Last ECHO Result Conclusion ECHO Collected: 05/18/2022 2:58 PM (Final result) Impression: CONCLUSIONS: - Exam indication: Pre Watchman, PAF - The left ventricle is normal in size. There is mild concentric left ventricular hypertrophy. Left ventricular systolic function is normal. EF = 63 5% (2D biplane) - The right ventricle is normal in size. Right ventricular systolic function is normal. - The left atrial cavity is dilated. - The visualized aorta is dilated with a maximal dimension of 4.2 cm. Recommend correlation with tomographic imaging. - 1+ to 2+ aortic regurgitation. - Estimated right ventricular systolic pressure is likely underestimated due to a weak or incomplete tricuspid regurgitation signal and is, at least, 26 mmHg consistent with normal pulmonary artery pressures. Estimated right atrial pressure is 3 mmHg based on IVC assessment. - Exam was compared with the prior echocardiographic exam performed on 02/27/2020 ([facility]). On direct image comparison, mid ascending thoracic aorta measures larger today. Aortic regurgitation also appears mildly more prominent. * * * Final * * * Last YOGESH Result Conclusion ECHO TRANSESOPHAGEAL Collected: 09/14/2022 1:24 PM (Final result) Impression: CONCLUSIONS: - Exam indication: Watchman follow up - The left ventricle is normal in size. Left ventricular systolic function is normal. EF = 55 5% (visual est.) - The right ventricle is normal in size. Right ventricular systolic function is normal. - The left atrial cavity is dilated. - The visualized aorta is dilated with a maximal dimension of 4.1 cm. - There is no patent foramen ovale as detected by Doppler and agitated saline contrast. - s/p 27mm Watchman FLX. The device is well seated in the AGUS with no visualization of kathleen-device leak or device related thrombus. - There is no visualized thrombus within the left atrium. - There is a prominent eustachian valve visualized in the right atrium. - Exam was compared with the prior CC echocardiographic exam performed on 05/19/2022 (procedural YOGESH). Similar findings. * * * Final * * * Last EKG Result Conclusion ECG COMPLETE Collected: 09/14/2022 2:41 PM (Edited Result - FINAL) Impression: SINUS RHYTHM WITH 1ST DEGREE AV BLOCK PROLONGED QT INTERVAL OR TU FUSION, CONSIDER HYPOKALEMIA ABNORMAL ECG Confirmed by MARIEL CRUZ MD ([id number]) on 09/15/2022 10:04:27 AM Assessment & Plan Atrial Fibrillation S/P Watchman Implantation GI Bleeding EVERTON Hilar Lymphadenopathy Impression: This is a 78 yo male with a PMHx of persistent AF on Dofetilide, Prior GI Bleed with continued break through bleeds, S/P Watchman implantation on 05/19/22, CAD, GERD, HTN, HLD. Pharm NST 2020: No evidence of inducible ischemia. YOGESH 09/14/22: Normal LVSF, AGUS Closure device (27mm Watchman FLX) seen without any kathleen-device leak. Mild to Mod AR EKG showed NSR without any evidence of acute ischemia. LHC in 2012 showed mild disease in the prox LAD Labs from [place] showed an BUN/Cr of 15/1.34 with a normal CBC Plan: - Vitals today: BP of 138/74 and a HR of 86 - Currently on Lasix 20mg daily, Atenolol 50mg - Anti-Arrhythmic medication with Dofetilide 500mcg BID - Remains off of Eliquis since August 2022 - Due to his overall symptoms I will send for a NST for now. He has been having major lower back pain due to arthritis changed and is unable to run on a treadmill. - Unable to do a coronary CTA due to EVERTON - He has been taking Meloxicam 15mg daily. Current Outpatient Medications on File Prior to Visit Medication Sig furosemide (LASIX) 20 mg tablet Take 1 tablet by mouth once daily. atenolol (TENORMIN) 50 mg tablet Take 1 tablet by mouth once daily. dofetilide (TIKOSYN) 500 mcg capsule Take 1 capsule by mouth twice daily. sodium chloride 0.9 %, flush, (BD POSIFLUSH) syringe Inject 2-10 mL intravenously as directed. For Echo procedure sodium chloride 0.9 %, flush, (BD POSIFLUSH) syringe Inject 2-10 mL intravenously as directed. For Echo procedure aspirin, enteric coated (ECOTRIN LOW STRENGTH) 81 mg EC tablet Take 1 tablet by mouth once daily. atorvastatin (LIPITOR) 40 mg tablet Take 1 tablet by mouth once daily. Fenofibrate (LOFIBRA) 160 mg tablet TAKE 1 TABLET ONCE DAILY SYMBICORT 160-4.5 mcg/actuation inhaler Inhale 2 Puffs as instructed twice daily. cholecalciferol, vitamin D3, (VITAMIN D3 ORAL) Take by mouth. magnesium oxide (MAG-OX) 400 mg (241.3 mg magnesium) tablet Take 1 tablet by mouth once daily. Hedjl-9-GFE-EPA-Fish Oil 1,000 mg (120 mg-180 mg) cap Take 2 g by mouth twice daily. omeprazole (PRILOSEC) 40 mg capsule Take 40 mg by mouth once daily. rOPINIRole (REQUIP) 1 mg tablet Take 1 tablet by mouth daily at bedtime. montelukast (SINGULAIR) 10 mg tablet montelukast 10 mg tablet allopurinol (ZYLOPRIM) 100 mg tablet Take 100 mg by mouth once daily. PROCTOZONE-HC 2.5 % rectal cream APPLY TO THE AFFECTED AREA(S) 2-4 times daily fluticasone (FLONASE) 50 mcg/actuation nasal spray Use 1 [place] in each nostril once daily. coenzyme Q10 100 mg cap Take 100 mg by mouth once daily. LORATADINE (CLARITIN ORAL) Take 1 tablet by mouth once daily. albuterol HFA (PROAIR HFA) 90 mcg/actuation inhaler Inhale 2 Puffs as instructed every 6 hours as needed. Kbauxzfgvnp-Vcnsustzt-Pom C-Mn 500-400 mg cap Take 1 capsule by mouth twice daily. Current Facility-Administered Medications on File Prior to Visit Medication perflutren lipid microspheres 1.3 mL in NaCl (PF) 0.9% 10 mL injection (DEFINITY) sodium chloride 0.9 % (flush) 10 mL (BD POSIFLUSH) Return in 3 months with communication in between if symptoms or changes occur. Thank you, CONTACT INFORMATION: Michael Simms MD Cardiovascular Medicine Staff Please see extensive note above. Blood pressure 150/84, pulse 120, height 177.8 cm (5' 10 ), weight 96.7 kg (213 lb 3 oz). Clinical cardiac examination was unchanged from previous. The patient underwent stress testing, 06/2023: CONCLUSIONS: 1. SPECT Perfusion Study: Normal. 2. There is no scintigraphic evidence for inducible ischemia. 3. No evidence of scarred myocardium. 4. There is a fixed perfusion defect in the RCA territory likely diaphragmatic attenuation. 5. Left ventricle is normal in size. The left ventricle systolic function is normal. 6. Right ventricle is normal in size. The right ventricle systolic function is normal. 7. This is a low risk scan. Gated Stress FBP Gated Rest FBP LVEF % 59 54 The stress test results, namely no inducible ischemia or previous myocardial scarring, with preserved left ventricular ejection fraction and implications were discussed in detail with the patient. At this time, from a general cardiac standpoint, no additional workup is indicated. The patient will follow-up with me in the office on an annual basis and with the electrophysiology team, for further management of his Watchman device as scheduled. I spent a total of 35 minutes on the date of the service which included preparing to see the patient, onab-qz-nshv patient care, completing clinical documentation, performing a medically appropriate examination, counseling and educating the patient/family/caregiver and ordering medications, tests or procedures. Persistent atrial fibrillation (hcc) (primary encounter diagnosis) Presence of watchman left atrial appendage closure device Obesity, class i, bmi 30-34.9 Chronic diastolic congestive heart failure (hcc) Angeli Kimball MD documented in this encounter [facility] 06-22-2023 Instructions Dg Barrientos DO - 06/22/2023 4:37 PM EST Images from the original note were not included. Gabapentin 300mg Medication Titration Instructions: AM (# of pills) Noon (# of pills) PM (# of pills) Days 1- 3 0 0 1 Days 4- 7 1 0 1 Days 8-10 1 1 1 Follow the chart. You keep increasing until you reach a dose that is helpful with the pain. Once you reach that dose, you maintain on that dose - for example 1 pill in the morning and 2 pills at bedtime. Possible side effects include but are not limited to fatigue, drowsiness, foggy thinking, water retention or leg swelling or rarely mood changes. Avoid driving or heavy machinery if you experience side effects drowsiness, foggy thinking Side effects are a reason to not continue increasing the dose but rather maintain the current dose or decrease. Do not stop the medication abruptly - decrease by one pill every other day if you wish to wean off. Call or MyChart the office if questions. documented in this encounter [facility] 06-22-2023 Note HNO ID: [id number] Author: ALPA RAM DO Service: ? Author Type: Physician Type: Progress Notes Filed: 07/03/2023 19:54 Note Text: [facility] [place] [facility] [place] [facility] - Medical Spine Initial Exam SUBJECTIVE HISTORY OF PRESENT ILLNESS: Irena Peraza is a 78 year old male who presents with a chief complaint of low back pain. Reports low back pain for at least 30+ years, had L5-S1 discectomy in . Pain fluctuates on and off for a long time. Recently says his pain is now in the low back and buttock, some along the sacral region as well, worse with standing. Worst pain is midline lumbosacral region. Reports tingling and pain down the left > right leg, down the posterior thigh and leg, all the way to the foot. Denies weakness. Denies bowel/bladder incontinence or saddle anesthesia. The pain is currently 3/10. The pain can get to 8/10 at the highest. PAIN EVALUATION 06/22/2023 1450 Pain Level: 10 Pain Location: Back Description: Sharp;Stabbing/Not Incision;Numbness;Radiating Duration Amount of Time: 6 Duration Units: Months Frequency: Intermittent Pain Radiation: As above Aggravating Factors: Standing, leaning forward Alleviating Factors: Stretching Pain Ratio: midline lumbosacral back Current Treatment: Medications Tylenol 650mg PRN Cymbalta 60mg Therapies No physical therapy recently Prior Treatment: Medications Therapies Acupuncture for the neck Prior spine interventions: RFA he thinks was done in the neck, maybe 5 years ago at [facility] Prior spine surgery: L5-S1 discectomy in Previously treated by: -Recently seen by PA working with Spine Surgeon Dr. Al Wiley in [place] and was planning [facility] PT. -Spine Medicine Dr. Bellamy. 2019 for cervical spine. Has had RFA locally and can pursue that. Try ROM exercises. Trial of Acupuncture for pain. PMH: PUD, GERD Afib s/p Watchman procedure CHF COPD h/o cancer: Melanoma PSH: PAST SURGICAL HISTORY Procedure Laterality Date APPENDECTOMY HX BACK SURGERY HX L5, S1 removed CARDIAC CATH 03/26/13 40-50% disease in mid LAD CARDIOVERSION 11/14/15 CATHETER, ABLATION A-Fib, 2003 at [facility] HERNIA REPAIR HX 05/2011 left inguinal PAST SURGICAL HISTORY OF skin cancer removed from back, and from leg, nose,; also cyst removed PAST SURGICAL HISTORY OF 2012 Melanoma removed from left breast. PAST SURGICAL HISTORY OF 2012 bilateral cataract removal PAST SURGICAL HISTORY OF Left carpal tunnel release PAST SURGICAL HISTORY OF Right 2017 varicose vein surgery ROTATOR CUFF REPAIR x4 (2 on each shoulder) SHOULDER LEFT OUT PT SURGERY 08/2015 reverse total shoulder TONSILLECTOMY HX Social Tobacco: Former smoker Personal life: daughter is a dentist, son is a nurse Occupation: Retired Litigation: No Workers' Compensation: No YELLOW AND BLUE FLAGS No-Neg Attitude; Back Pain is Disabling No-Avoiding Activity (for Fear of Pain) No-Depression or Anxiety Disorders No-Social Problems No-Substance Use Disorder No-Job Dissatisfaction No-Financial Disincentives Patient Entered Questionnaires PROMIS Score Percentiles PROMIS Global Health Scale 07/01/2016 09/21/2016 02/10/2017 Physical Health Percentile 22* 41 22* Mental Health Percentile 53 26* 26* Percentiles provide an indication of how the patient's score ranks in relation to the general population. Higher percentile rankings indicate better function/quality of life. 50th percentile is the average of the general population and indicates half of respondents had a worse score. Depression Screening: PHQ-9 09/01/2011 06/26/2018 Score 2 3 PHQ-9 Self-Harm (Item 9) response options: 0 Not at all 1 Several days 2 More than half the days 3 Nearly every day PHQ-9 Levels: 0-4 No - mild depression 5-9 Mild depression 10-14 Moderate depression 15-19 Moderately severe depression 20-27 Severe depression ACTIVE PROBLEM LIST Paf (Paroxysmal Atrial Fibrillation) (Hcc) Former Smoker Obstructive Lung Disease (Hcc) Hyperlipemia Pud (Peptic Ulcer Disease) Gerd (Gastroesophageal Reflux Disease) Carpal Tunnel Syndrome Hx of Neck Disorder Rotator Cuff Tear Arthritis Depression Alcohol Use Lprd (Laryngopharyngeal Reflux Disease) Chronic Throat Clearing Biceps Rupture, Proximal Contracture of Shoulder Rotator Cuff Tear Arthropathy Complete Tear of Left Rotator Cuff Melanoma (Hcc) Htn (Hypertension), Benign Cervical Spine Pain Osteoarthritis Limitation of Joint Motion of Shoulder Acute On Chronic Diastolic Congestive Heart Failure (Hcc) Chronic Diastolic Congestive Heart Failure (Hcc) Right Shoulder Pain Stiffness of Shoulder Joint Weakness of Shoulder Obesity, Class I, Bmi 30-34.9 Persistent Atrial Fibrillation (Hcc) Visit for Monitoring Tikosyn Therapy Gastrointestinal Hemorrhage IRB [facility] (more content not included)... [facility] 06-22-2023 History of Present illness Narrative Images from the original note were not included. [facility] [place] [facility] [place] [facility] - Medical Spine Initial Exam SUBJECTIVE HISTORY OF PRESENT ILLNESS: Irena Peraza is a 78 year old male who presents with a chief complaint of low back pain. Reports low back pain for at least 30+ years, had L5-S1 discectomy in . Pain fluctuates on and off for a long time. Recently says his pain is now in the low back and buttock, some along the sacral region as well, worse with standing. Worst pain is midline lumbosacral region. Reports tingling and pain down the left > right leg, down the posterior thigh and leg, all the way to the foot. Denies weakness. Denies bowel/bladder incontinence or saddle anesthesia. The pain is currently 3/10. The pain can get to 8/10 at the highest. PAIN EVALUATION 06/22/2023 1450 Pain Level: 10 Pain Location: Back Description: Sharp;Stabbing/Not Incision;Numbness;Radiating Duration Amount of Time: 6 Duration Units: Months Frequency: Intermittent Pain Radiation: As above Aggravating Factors: Standing, leaning forward Alleviating Factors: Stretching Pain Ratio: midline lumbosacral back Current Treatment: Medications Tylenol 650mg PRN Cymbalta 60mg Therapies No physical therapy recently Prior Treatment: Medications Therapies Acupuncture for the neck Prior spine interventions: RFA he thinks was done in the neck, maybe 5 years ago at [facility] Prior spine surgery: L5-S1 discectomy in Previously treated by: -Recently seen by PA working with Spine Surgeon Dr. Al Wiley in [place] and was planning [facility] PT. -Spine Medicine Dr. Bellamy. 2019 for cervical spine. Has had RFA locally and can pursue that. Try ROM exercises. Trial of Acupuncture for pain. PMH: PUD, GERD Afib s/p Watchman procedure CHF COPD h/o cancer: Melanoma PSH: PAST SURGICAL HISTORY Procedure Laterality Date APPENDECTOMY HX BACK SURGERY HX L5, S1 removed CARDIAC CATH 03/26/13 40-50% disease in mid LAD CARDIOVERSION 11/14/15 CATHETER, ABLATION A-Fib, 2003 at [facility] HERNIA REPAIR HX 05/2011 left inguinal PAST SURGICAL HISTORY OF skin cancer removed from back, and from leg, nose,; also cyst removed PAST SURGICAL HISTORY OF 2012 Melanoma removed from left breast. PAST SURGICAL HISTORY OF 2012 bilateral cataract removal PAST SURGICAL HISTORY OF Left carpal tunnel release PAST SURGICAL HISTORY OF Right 2017 varicose vein surgery ROTATOR CUFF REPAIR x4 (2 on each shoulder) SHOULDER LEFT OUT PT SURGERY 08/2015 reverse total shoulder TONSILLECTOMY HX Social Tobacco: Former smoker Personal life: daughter is a dentist, son is a nurse Occupation: Retired Litigation: No Workers' Compensation: No YELLOW & BLUE FLAGS No-Neg Attitude; Back Pain is Disabling No-Avoiding Activity (for Fear of Pain) No-Depression or Anxiety Disorders No-Social Problems No-Substance Use Disorder No-Job Dissatisfaction No-Financial Disincentives Patient Entered Questionnaires PROMIS Score Percentiles PROMIS Global Health Scale 07/01/2016 09/21/2016 02/10/2017 Physical Health Percentile 22* 41 22* Mental Health Percentile 53 26* 26* Percentiles provide an indication of how the patient's score ranks in relation to the general population. Higher percentile rankings indicate better function/quality of life. 50th percentile is the average of the general population and indicates half of respondents had a worse score. Depression Screening: PHQ-9 09/01/2011 06/26/2018 Score 2 3 PHQ-9 Self-Harm (Item 9) response options: 0 Not at all 1 Several days 2 More than half the days 3 Nearly every day PHQ-9 Levels: 0-4 No - mild depression 5-9 Mild depression 10-14 Moderate depression 15-19 Moderately severe depression 20-27 Severe depression ACTIVE PROBLEM LIST Paf (Paroxysmal Atrial Fibrillation) (Hcc) Former Smoker Obstructive Lung Disease (Hcc) Hyperlipemia Pud (Peptic Ulcer Disease) Gerd (Gastroesophageal Reflux Disease) Carpal Tunnel Syndrome Hx of Neck Disorder Rotator Cuff Tear Arthritis Depression Alcohol Use Lprd (Laryngopharyngeal Reflux Disease) Chronic Throat Clearing Biceps Rupture, Proximal Contracture of Shoulder Rotator Cuff Tear Arthropathy Complete Tear of Left Rotator Cuff Melanoma (Hcc) Htn (Hypertension), Benign Cervical Spine Pain Osteoarthritis Limitation of Joint Motion of Shoulder Acute On Chronic Diastolic Congestive Heart Failure (Hcc) Chronic Diastolic Congestive Heart Failure (Hcc) Right Shoulder Pain Stiffness of Shoulder Joint Weakness of Shoulder Obesity, Class I, Bmi 30-34.9 Persistent Atrial Fibrillation (Hcc) Visit for Monitoring Tikosyn Therapy Gastrointestinal Hemorrhage IRB [id number] WATCHAMAN FLX Real World Evidence (WATCH RWE) PI: Dr. Marcos Bermudez Atrial Fibrillation (Hcc) Low Back Pain, Unspecified PAST MEDICAL HISTORY Diagnosis Date Arthritis CAD (coronary artery disease) 03/26/2013 40-50% mid LAD Carpal tunnel syndrome Cervical spine pain COPD (chronic obstructive pulmonary disease) (HCC) Depression Diastolic heart failure (HCC) GERD (gastroesophageal reflux disease) HTN (hypertension), benign patient denies this Hypercholesterolemia Hyperlipemia Left atrial dilatation Melanoma (HCC) 2012 left breast melanoma s/p surgery. Obstructive lung disease (HCC) PAF (paroxysmal atrial fibrillation) (HCC) 2004 s/p ablation 2003 PUD (peptic ulcer disease) remote RLS (restless legs syndrome) Rotator cuff tear x2 each shoulder PAST SURGICAL HISTORY Procedure Laterality Date APPENDECTOMY HX BACK SURGERY HX L5, S1 removed CARDIAC CATH 03/26/13 40-50% disease in mid LAD CARDIOVERSION 11/14/15 CATHETER, ABLATION A-Fib, 2003 at [facility] HERNIA REPAIR HX 05/2011 left inguinal PAST SURGICAL HISTORY OF skin cancer removed from back, and from leg, nose,; also cyst removed PAST SURGICAL HISTORY OF 2013 Melanoma removed from left breast. PAST SURGICAL HISTORY OF 2012 bilateral cataract removal PAST SURGICAL HISTORY OF Left carpal tunnel release PAST SURGICAL HISTORY OF Right 2017 varicose vein surgery ROTATOR CUFF REPAIR x4 (2 on each shoulder) SHOULDER LEFT OUT PT SURGERY 08/2015 reverse total shoulder TONSILLECTOMY HX Social History Tobacco Use Smoking status: Former Packs/day: 1.50 Years: 15.00 Additional pack years: 0.00 Total pack years: 22.50 Types: Cigarettes Quit date: 05/02/1985 Years since quittin.1 Smokeless tobacco: Never Substance Use Topics Alcohol use: Yes Alcohol/week: 10.0 standard drinks of alcohol Types: 10 Standard drinks or equivalent per week Comment: has an occasional drink, previously drank 2-3 per day Drug use: No FAMILY HISTORY Problem Relation Age of Onset other (TB) Mother age 78, Tuberculosis, of natural causes Heart Father s/p AVR Coronary Artery Disease Sister s/p CABG x3 No Known Problems Sister No Known Problems Brother No Known Problems Maternal Grandmother No Known Problems Maternal Grandfather No Known Problems Paternal Grandmother No Known Problems Paternal Grandfather No Known Problems Daughter No Known Problems Daughter No Known Problems Son Heart Grandchild Shone disease; at age 6 days old ALLERGIES Allergen Reactions Aspirin Other: See Comments Ibuprofen Other: See Comments CURRENT MEDICATIONS: acetaminophen 650 mg CR tablet^Every 12 hours^Disp: ^Rfl: amoxicillin (AMOXIL) 500 mg capsule^TAKE 2 CAPSULES BY MOUTH now then TAKE 1 CAPSULE BY MOUTH EVERY 6 HOURS UNTIL GONE^Disp: ^Rfl: ketoconazole (NIZORAL) 2 % cream^^Disp: ^Rfl: DULoxetine (CYMBALTA) 60 mg capsule^Take 1 capsule by mouth every afternoon.^Disp: ^Rfl: fluticasone-vilanterol (BREO ELLIPTA) 100-25 mcg/dose inhaler^INHALE 1 PUFF BY MOUTH DAILY^Disp: ^Rfl: omega-3 acid ethyl esters (LOVAZA) 1 gram capsule^Take 1,000 mg by mouth.^Disp: ^Rfl: atorvastatin (LIPITOR) 40 mg tablet^Take 1 tablet by mouth once daily.^Disp: 60 tablet^Rfl: 0 ADVAIR DISKUS 100-50 mcg/dose inhaler^Inhale as instructed two times a day.^Disp: ^Rfl: tolterodine ER (DETROL LA) 4 mg 24 hr capsule^Take 4 mg by mouth once daily.^Disp: ^Rfl: furosemide (LASIX) 20 mg tablet^Take 1 tablet by mouth once daily.^Disp: 90 tablet^Rfl: 3 atenolol (TENORMIN) 50 mg tablet^Take 1 tablet by mouth once daily.^Disp: 90 tablet^Rfl: 3 dofetilide (TIKOSYN) 500 mcg capsule^Take 1 capsule by mouth twice daily.^Disp: 180 capsule^Rfl: 3 Fenofibrate (LOFIBRA) 160 mg tablet^TAKE 1 TABLET ONCE DAILY^Disp: 90 tablet^Rfl: 3 cholecalciferol, vitamin D3, (VITAMIN D3 ORAL)^Take by mouth.^Disp: ^Rfl: magnesium oxide (MAG-OX) 400 mg (241.3 mg magnesium) tablet^Take 1 tablet by mouth once daily.^Disp: 30 tablet^Rfl: 5 omeprazole (PRILOSEC) 40 mg capsule^Take 40 mg by mouth once daily.^Disp: ^Rfl: rOPINIRole (REQUIP) 1 mg tablet^Take 1 tablet by mouth daily at bedtime.^Disp: ^Rfl: montelukast (SINGULAIR) 10 mg tablet^montelukast 10 mg tablet^Disp: ^Rfl: allopurinol (ZYLOPRIM) 100 mg tablet^Take 100 mg by mouth once daily.^Disp: ^Rfl: 5 PROCTOZONE-HC 2.5 % rectal cream^APPLY TO THE AFFECTED AREA(S) 2-4 times daily^Disp: ^Rfl: 5 fluticasone (FLONASE) 50 mcg/actuation nasal spray^Use 1 [place] in each nostril once daily.^Disp: ^Rfl: 0 coenzyme Q10 100 mg cap^Take 100 mg by mouth once daily. ^Disp: ^Rfl: albuterol HFA (PROAIR HFA) 90 mcg/actuation inhaler^Inhale 2 Puffs as instructed every 6 hours as needed.^Disp: 1 Inhaler^Rfl: 0 Szftwlukdrg-Oazqnqurx-Pkz C-Mn 500-400 mg cap^Take 1 capsule by mouth twice daily.^Disp: ^Rfl: 0 aspirin, enteric coated (ECOTRIN LOW STRENGTH) 81 mg EC tablet^Take 1 tablet by mouth once daily.^Disp: 30 tablet^Rfl: 5 REVIEW OF SYSTEMS: 14 systems reviewed and otherwise negative unless mentioned above. OBJECTIVE: PHYSICAL EXAM BP 116/66 Pulse 102 Temp 37.3 C (99.1 F) (Temporal) Ht 177.8 cm (5' 10 ) Wt 94.8 kg (208 lb 15.9 oz) SpO2 97% BMI 29.99 kg/m GENERAL APPEARANCE: Well nourished, well developed, and no apparent distress. NEURO PSYCH: Patient oriented to person, place, and time. Mood pleasant. Benign affect. CARDIOVASCULAR: Palpable pulses. No edema noted. RESPIRATORY: non-labored breathing, no grunting/flaring/retractions SKIN: Head, neck, trunk, and extremities dry, intact and without lesions. MUSCULOSKELETAL VISUAL INSPECTION Posture: normal posture and alignment PALPATION: No tenderness to palpation SPINE ROM: LUMBAR ROM: Full ROM in lumbar spine, pain with extension and rotation bilaterally MUSCLE BULK: Normal and symmetrical in the upper & lower extremities. MUSCLE TONE: Normal. MOTOR: 5/5 bilateral hip flexion, knee flexion, knee extension, ankle dorsiflexion, plantarflexion EHL 4/5 left, 5/5 right SENSORY: sensation intact to light touch REFLEXES: 2+ patellar; Trace BL achilles; 1+ medial hamstring on right and 2+ on left LONG TRACT SIGNS: No clonus. No Hoffmans. BABINSKI: absent bilateral GAIT: Non-antalgic. Able to stand on toes and heels. Able to perform tandem gait with some loss of balance STRAIGHT LEG TEST: positive bilateral Hip: normal IR and ER SI joint: Negative ANSLEY, negative Gaenslen's Lumbar facet loading: Pain no different from extension/rotation, pain midline Data Review: All images/reports listed below were personally reviewed by me unless otherwise indicated. [facility] and Outside records independently reviewed Images independently reviewed with the patient 05/20/2023 MRI lumbar spine with and without contrast, Hernandez Flavio: The spine is visualized and T11-12 through S2 on the diagnostic sagittal sequences. Lumbar lordosis is maintained. Anterolisthesis of L4 over L5 approximately 7 to 8 mm, similar to the prior studies. Vertebral body heights and remaining alignment are within normal limits. Minimal degenerative endplate changes. No abnormal bone marrow enhancement identified. The conus is within normal limits of signal intensity and morphology. Small renal cyst that do not require further imaging follow-up. Paraspinal soft tissues are otherwise unremarkable. No abnormal enhancement identified. T11-12: Moderate disc space narrowing, mild posterior lateral endplate osteophytosis with associated broad-based disc protrusion/bulging and moderate to marked hypertrophic facet and ligamentum flavum changes which results in borderline central spinal stenosis and moderate to marked neuroforaminal narrowing. T12-L1: Mild hypertrophic facet and ligamentum flavum changes without central spinal stenosis neuroforaminal narrowing or discrete disc protrusion. L1-2: Borderline to minimal disc base narrowing mild posterior lateral endplate osteophytosis without associated broad-based disc protrusion/bulging and mild hypertrophic facet and ligamentum flavum changes without central spinal stenosis or neural foraminal narrowing. L2-3: Mild posterior lateral endplate osteophytosis with associated broad-based disc protrusion/bulging and mild hypertrophic facet and ligamentum flavum changes without central spinal stenosis or neuroforaminal narrowing. L3-4: Borderline to minimal disc base narrowing, mild to moderate posterior lateral endplate osteophytosis with associated broad-based disc protrusion/bulging and moderate hypertrophic facet and ligamentum flavum changes which results in moderate central spinal stenosis and neuroforaminal narrowing. L4-5: Grade 1 anterolisthesis, mild to moderate to space narrowing, moderate diffuse disc bulging and marked hypertrophic facet and ligamentum flavum changes which results in moderate to marked central spinal stenosis and neuroforaminal narrowing. L5-S1: Moderate to marked to space narrowing, mild posterior lateral endplate osteophytosis with associated broad-based disc protrusion/bulging moderate hypertrophic facet and ligamentum flavum changes and previous left laminotomy, which resulted in mild to moderate neural foraminal narrowing, greater on the right. Sacrum and iliac wings are unremarkable. ASSESSMENT/PLAN DIAGNOSIS: M54.16 Bilateral lumbar radiculopathy (primary encounter diagnosis) M48.061 Spinal stenosis, lumbar region, without neurogenic claudication M43.16 Anterolisthesis of lumbar spine ASSESSMENT: Irena Peraza is a 78 year old male with PMH of of A-fib s/p Watchman procedure, former smoker with COPD, CHF, PUD, GERD, and prior L5-S1 discectomy in the . presenting with midline lumbosacral low back pain that radiates down the posterior of bilateral thighs, legs and to both feet. He complains of pain worse with standing, reproduced with lumbar extension and rotation bilaterally, has positive bilateral straight leg raises, and weakness of left EHL, and diminished right medial hamstring DTR compared to right. MRI uploaded and reviewed shows severe canal narrowing at L4-5 with anteriorlisthesis of L4 on 5, disc desiccation of L5-S1, multi level foraminal narrowing worse at L4-5 and L5-S1 and facet hypertrophy of L3-4, L4-5, and L5-S1. Suspect his problem is primarily related to lumbar stenosis with radicular symptoms, but facet OA could be involved as well. He currently has order for aquatic therapy from outside provider. I recommend traditional land based PT instead if he is able to tolerate, order placed. He will also start Gabapentin. F/u in 2-3 months. PLAN: 1) Imaging/Diagnostic Studies: -Reviewed lumbar MRI with patient today at visit. -Imaging reviewed as above. 2) Therapy/Rehabilitation: -Advised to start with PT for core stabilization exercises, stretching/ flexibility and strengthening exercises, soft-tissue/ joint mobilization, modalities, body mechanics, posture, and develop home exercise program. -Activities and exercise as tolerated. Avoid heavy lifting. 3) Pharmacological Management: -Start gabapentin, table given. Start 1 tablet 300mg qhs, increase as tolerated to TID. Side effects discussed. 4) Spine/MSK Interventions: -Not at this time. 5) Consultations: -None 6) Follow -up: -2 months, After completion of PT -Patient instructed to call/seek urgent medical care with worsening of symptoms or change of neurological status. 7) Future treatment considerations: -XR lumbar -Consider L4 or L5 TFESI. Dg Barrientos DO Spine Medicine Fellow, PGY-5 Patient seen and discussed with attending Dr. Ram. Attending Note: Uribe findings confirmed. Patient examined. Discussed with the fellow and the patient. All information in the note above was confirmed by me and edited as necessary for accurate information. Plan as outlined. SIGNATURE: Alpa Ram DO PATIENT NAME: Irena Peraza DATE: June 22, 2023 TIME: 3:15 PM documented in this encounter [facility] 06-16-2023 History of Present illness Narrative RADIOLOGY SERVICE PROGRESS NOTE SERVICE DATE: 06/16/2023 SERVICE TIME: 12:56 PM PATIENT IDENTITY VERIFICATION COMPLETED USING TWO (2) STANDARD IDENTIFIERS: Name and Date of confirmed by patient verbally FALL SCREENING: Has the patient had 2 falls in the last year or 1 fall with injury or currently using an Ambulatory Assistive Device (Walker, Cane, Wheelchair, Crutches, etc.)? No PATIENT GENDER DATA: .male ALLERGIES: Reviewed and unchanged MEDICATIONS REVIEWED: No PATIENT RELEVANT IMPLANT DATA REVIEWED: Not Applicable PATIENT PRESENTS WITH AN IMPLANTABLE OR ATTACHED SVP CHIEF MARKETING OFFICER: No CREATININE: Creatinine Date Value Ref Range Status 04/26/2023 1.17 0.73 - 1.22 mg/dL Final 05/12/2022 0.98 0.73 - 1.22 mg/dL Final 07/02/2021 1.05 0.73 - 1.22 mg/dL Final Estimated Glomerular Filtration Rate Date Value Ref Range Status 04/26/2023 64 >=60 mL/min/1.73m Final Comment: Estimated Glomerular Filtration Rate (eGFR) is calculated using the 2020 CKD-EPI creatinine equation. This equation utilizes serum creatinine, sex, and age as parameters. The creatinine assay has traceable calibration to isotope dilution-mass spectrometry. Refer to KDIGO guidelines for clinical interpretation. In patients with unstable renal function, e.g. those with acute kidney injury, the eGFR may not accurately reflect actual GFR. eGFR- Date Value Ref Range Status 03/09/2021 >60 Final P.O.C.T. RESULTS: N/A June 16, [address] PERFORMED: No IV SITE: Ambulatory: A peripheral IV was started in the Left antecubital site with a Angio cath: 22 gauge. POST EXAM PIV STATUS: Discontinued PROCEDURE TYPE: NM Stress: 14.0 mCi [id number] was administered IV for Rest Imaging at 1244 by AN. 35.3 mCi [id number]-Upbqaob was administered IV for Stress Imaging at 1353 by AN. PATIENT DISCHARGED TO: Ambulatory patient, left NM department area. A Diagnostic radioactive procedure has taken place, with no further precautions necessary other than routine body substance precautions. More information regarding radiation safety can be found using this link: [email or web address] %[email or web address] SIGNATURE: JANINA Archuleta) PATIENT NAME: Irena Peraza DATE: June 16, 2023 TIME: 12:56 PM PAGER/CONTACT #: documented in this encounter [facility] 06-16-2023 Note HNO ID: [id number] Author: ZULEYKA DUQUE RT(R) Service: ? Author Type: Technologist Type: Progress Notes Filed: 06/16/2023 13:56 Note Text: RADIOLOGY SERVICE PROGRESS NOTE SERVICE DATE: 06/16/2023 SERVICE TIME: 12:56 PM PATIENT IDENTITY VERIFICATION COMPLETED USING TWO (2) STANDARD IDENTIFIERS: Name and Date of confirmed by patient verbally FALL SCREENING: Has the patient had 2 falls in the last year or 1 fall with injury or currently using an Ambulatory Assistive Device (Walker, Cane, Wheelchair, Crutches, etc.)? No PATIENT GENDER DATA: .male ALLERGIES: Reviewed and unchanged MEDICATIONS REVIEWED: No PATIENT RELEVANT IMPLANT DATA REVIEWED: Not Applicable PATIENT PRESENTS WITH AN IMPLANTABLE OR ATTACHED SVP CHIEF MARKETING OFFICER: No CREATININE: Creatinine Date Value Ref Range Status 04/26/2023 1.17 0.73 - 1.22 mg/dL Final 05/12/2022 0.98 0.73 - 1.22 mg/dL Final 07/02/2021 1.05 0.73 - 1.22 mg/dL Final Estimated Glomerular Filtration Rate Date Value Ref Range Status 04/26/2023 64 >=60 mL/min/1.73m? Final Comment: Estimated Glomerular Filtration Rate (eGFR) is calculated using the 2020 CKD-EPI creatinine equation. This equation utilizes serum creatinine, sex, and age as parameters. The creatinine assay has traceable calibration to isotope dilution-mass spectrometry. Refer to KDIGO guidelines for clinical interpretation. In patients with unstable renal function, e.g. those with acute kidney injury, the eGFR may not accurately reflect actual GFR. eGFR- Date Value Ref Range Status 03/09/2021 >60 Final P.O.C.T. RESULTS: N/A June 16, [address] PERFORMED: No IV SITE: Ambulatory: A peripheral IV was started in the Left antecubital site with a Angio cath: 22 gauge. POST EXAM PIV STATUS: Discontinued PROCEDURE TYPE: NM Stress: 14.0 mCi [id number]-[id number] was administered IV for Rest Imaging at 1244 by AN. 35.3 mCi [id number]-Tuectut was administered IV for Stress Imaging at 1353 by AN. PATIENT DISCHARGED TO: Ambulatory patient, left NM department area. A Diagnostic radioactive procedure has taken place, with no further precautions necessary other than routine body substance precautions. More information regarding radiation safety can be found using this link: [email or web address] 20Diagnostic%20Nuclear%20Medicine% 20Procedures.pdf SIGNATURE: RT Kathe(R) PATIENT NAME: Irena Peraza DATE: June 16, 2023 TIME: 12:56 PM PAGER/CONTACT #: [facility] 06-15-2023 Miscellaneous Notes Forward to Randa mcconnell. Please advise. Patient scheduled for NM/Pharm stress test in [place] tomorrow, old order discontinued, need new order please. Forward to Dr. Simms. Please advise. documented in this encounter [facility] 06-14-2023 History of Present illness Narrative Images from the original note were not included. patient: Irena Peraza : 1945 PCP: [facility] Provider Unallocated SUBJECTIVE This is a 78 y.o. male that presents today with a chief complaint of painful elongated nails digits 1 through 10. They cause marked limitation in ambulation due to pain and pressure from shoe gear. Allergies: No Known Allergies Past Medical History: Past Medical History: Diagnosis Date Acute idiopathic gout of left wrist 01/26/2023 Acute on chronic diastolic congestive heart failure (CMS/HCC) 10/31/2015 Acute right-sided low back pain with right-sided sciatica 01/26/2023 Alcohol use 01/26/2023 Anemia 01/26/2023 Anemia due to blood loss 01/26/2023 Arthritis 01/26/2023 Back pain with right-sided sciatica 01/26/2023 Basal cell carcinoma right medial lower leg Biceps rupture, proximal 05/29/2015 BMI 30.0-30.9,adult 01/26/2023 BPH with urinary obstruction 01/26/2023 Cervical radiculopathy due to degenerative joint disease of spine 01/26/2023 Cervical spine pain 01/26/2023 Chronic obstructive lung disease (CMS/HCC) 01/26/2023 Colon polyps 01/26/2023 Contracture, left ankle 01/26/2023 COPD (chronic obstructive pulmonary disease) [place] [place] Deformity of metatarsal 01/26/2023 Degenerative cervical disc 01/26/2023 Depression ([facility] [place]) 01/26/2023 Elevated PSA 01/26/2023 Enlarged prostate 01/26/2023 Erosion of intestine 01/26/2023 Flank pain 01/26/2023 Former smoker 01/26/2023 Gastroesophageal reflux disease 01/26/2023 Melanoma ([facility] [place] 08/2012 left chest; MM; breslows depth 0.64mm; excised by Dr. Angeles Obesity, Class I, BMI 30-34.9 01/03/2018 Osteoarthritis 08/06/2015 Perianal wart 01/26/2023 Medications: Current Outpatient Medications: allopurinol (Zyloprim) 100 MG tablet, Take 100 mg by mouth in the morning., Disp: , Rfl: aspirin 81 MG EC tablet, Take 81 mg by mouth in the morning., Disp: , Rfl: atenolol (Tenormin) 50 MG tablet, Take 50 mg by mouth in the morning., Disp: , Rfl: atorvastatin (Lipitor) 40 MG tablet, Take 40 mg by mouth in the morning., Disp: , Rfl: CALCIUM CITRATE PO, , Disp: , Rfl: clonazePAM (KlonoPIN) 1 MG tablet, , Disp: , Rfl: diazePAM (Valium) 10 MG tablet, TAKE 1 TABLET BY MOUTH 1 (ONE) HOUR prior to procedure, Disp: , Rfl: digoxin (Lanoxin) 250 MCG tab;et, , Disp: , Rfl: dofetilide (Tikosyn) 500 MCG capsule, Take by mouth 2 (two) times a day., Disp: , Rfl: DULoxetine (Cymbalta) [address] capsule, Take 60 mg by mouth in the morning., Disp: , Rfl: escitalopram (Lexapro) 20 MG tablet, , Disp: , Rfl: fenofibrate (Triglide) 160 MG tablet, Take 160 mg by mouth in the morning., Disp: , Rfl: fluticasone (Flonase) 50 MCG/ACT nasal spray, instill 2 (TWO) sprays IN EACH NOSTRIL DAILY, Disp: , Rfl: ketoconazole (NIZOral) 2 % cream, apply to affected areas of the mouth Externally qpm for 30 day(s), Disp: , Rfl: montelukast (Singulair) 10 MG tablet, Take 10 mg by mouth in the morning., Disp: , Rfl: omeprazole (PriLOSEC) [address] capsule, Take 40 mg by mouth in the morning., Disp: , Rfl: rOPINIRole (Requip) 1 MG tablet, TAKE 1 TO 2 TABLETS BY MOUTH 1-3 HOURS BEFORE bedtime, Disp: , Rfl: sildenafil (Viagra) 100 MG tablet, TAKE 1 TABLET BY MOUTH 1 (ONE) HOUR BEFORE sexual activity, Disp: , Rfl: Symbicort 160-4.5 MCG/ACT inhaler, Inhale 2 puffs in the morning and 2 puffs before bedtime., Disp: , Rfl: tolterodine LA (Detrol LA) 4 MG 24 hr capsule, Take 4 mg by mouth in the morning., Disp: , Rfl: Review of systems: Constitutional: Denies fever, chills, nausea, vomiting GI: Denies abdominal pain, cramping, loose stool, gastric ulcers Musculoskeletal: Denies low back pain, knee pain, systemic arthritis Neurologic: Denies burning, tingling, transient paralysis OBJECTIVE Physical Examination: DERM: Positive hair growth to b/l feet with good skin turgor noted. Negative openings in skin. No macerations noted interdigitally. Web spaces were clean and dry. No ulcerations were noted. Nails 1 through 10 were thickened elongated yellow and crumbly with subungual debris. They were painful to palpation [id number] on the right 18045 on the left. VASC: DP /PT were nonpalpable bilateral. Capillary refill time < 3 seconds Digits 1-5 bilateral NEURO: [place] 5.07 monofilament was intact B/L. Vibratory sensation was intact B/L Musculoskeletal: Muscle strength was +5 over 5 all intrinsic and extrinsic muscles tested. Radiographs: AP/MO/LAT: Diagnostic ultrasound: ASSESSMENT 1. Onychomycosis 2. Pain in left toe(s) 3. Pain in right toe(s) PLAN The patient was educated on proper foot care as well as the etiology of onychomycosis. I educated the patient on proper shoe gear as well. Today the nails were debrided both in length and thickness 1 through 10. DAMIAN Degroot documented in this encounter [facility] 06-13-2023 History of Present illness Narrative RADIOLOGY SERVICE PROGRESS NOTE RADIOLOGY SERVICE PROGRESS NOTE DATE OF SERVICE: June 13, 2023 TIME OF SERVICE: 1010 EVENT: EXAM/PROCEDURE NOT COMPLETED - Patient requires additional/alternate prep. Pt Had caffeine and will be rescheduled ADDITIONAL EVENT DETAILS: N/A SIGNATURE: Gladys Gavin PATIENT NAME: Irena Peraza DATE: June 13, 2023 TIME: 10:15 AM PAGER/CONTACT #: documented in this encounter [facility] 06-13-2023 Note HNO ID: [id number] Author: ZAHIRA INFANTE Nuclear Tech Service: ? Author Type: Rehabilitation Counsellor Type: Progress Notes Filed: 06/13/2023 10:16 Note Text: RADIOLOGY SERVICE PROGRESS NOTE RADIOLOGY SERVICE PROGRESS NOTE DATE OF SERVICE: June 13, 2023 TIME OF SERVICE: 0 EVENT: EXAM/PROCEDURE NOT COMPLETED - Patient requires additional/alternate prep. Pt Had caffeine and will be rescheduled ADDITIONAL EVENT DETAILS: N/A SIGNATURE: Gladys Gavin PATIENT NAME: Irena Peraza DATE: June 13, 2023 TIME: 10:15 AM PAGER/CONTACT #: [facility] 06-03-2023 Miscellaneous Notes Please let patient know I sent 2 month refill for statin but he has not had lipid panel in almost 4 years so we cannot refill more than that until labs are drawn. Order for labs is in Pharmacy escripts requesting the following refill: Requested Prescriptions Pending Prescriptions Disp Refills atorvastatin (LIPITOR) 40 mg tablet 90 tablet 3 Sig: Take 1 tablet by mouth once daily. Please review and advise. Jeaneth Jaquez Ma documented in this encounter [facility] 04-26-2023 Note HNO ID: [id number] Author: Michael Simms MD Service: ? Author Type: Physician Type: Progress Notes Filed: 04/26/2023 12:23 PM Note Text: [facility] [place] [facility] Department of Cardiovascular Medicine SECTION OF REGIONAL CARDIOLOGY OUTPATIENT VISIT DATE April 24, 2023 OUTPATIENT VISIT TYPE ESTABLISHED PRIMARY CARE PHYSICIAN: Scarlett Gaviria NP [address] [facility] [place] [address] CHIEF COMPLAINT: Arrhythmia HISTORY OF PRESENT ILLNESS: Mr. Peraza is a pleasant 78 year old male here for cardiovascular follow-up of her Hx of Atrial Fib now s/p watchman device. On follow up visit 4 months following implantation he was seen by Dr Kemp (implanted the device) and was told to stop the apixaban and comtinue Aspirin 81mg. Scheduled for a 1 year YOGESH. He is a patient of Dr Kimball. 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 A week ago he was in the pool and he wasn't feeling well and he went to [place] ED. A CT chest was done and showed mild pulmonary edema and trace B/L pleural effusions. He was told to take his lasix twice a day for 4 days. He was also found to have EVERTON with a Cr of 1.34. He has also noted that over the last couple of months his SOB has been getting worse. He has not had any chest pain at all. The following portions of the patient's history were reviewed and updated as appropriate, allergies, current medications, past medical, social, surgical, and family history and problem list. I have personally interviewed, confirmed and edited the above information if obtained by others. CURRENT MEDICATIONS: furosemide (LASIX) 20 mg tabletTake 1 tablet by mouth once daily.Disp: 90 tabletRfl: 3 atenolol (TENORMIN) 50 mg tabletTake 1 tablet by mouth once daily.Disp: 90 tabletRfl: 3 dofetilide (TIKOSYN) 500 mcg capsuleTake 1 capsule by mouth twice daily.Disp: 180 capsuleRfl: 3 sodium chloride 0.9 %, flush, (BD POSIFLUSH) syringeInject 2-10 mL intravenously as directed. For Echo procedureDisp: 10 mLRfl: 0 sodium chloride 0.9 %, flush, (BD POSIFLUSH) syringeInject 2-10 mL intravenously as directed. For Echo procedureDisp: 10 mLRfl: 0 aspirin, enteric coated (ECOTRIN LOW STRENGTH) 81 mg EC tabletTake 1 tablet by mouth once daily.Disp: 30 tabletRfl: 5 atorvastatin (LIPITOR) 40 mg tabletTake 1 tablet by mouth once daily.Disp: 90 tabletRfl: 3 Fenofibrate (LOFIBRA) 160 mg tabletTAKE 1 TABLET ONCE DAILYDisp: 90 tabletRfl: 3 SYMBICORT 160-4.5 mcg/actuation inhalerInhale 2 Puffs as instructed twice daily.Disp: Rfl: cholecalciferol, vitamin D3, (VITAMIN D3 ORAL)Take by mouth.Disp: Rfl: magnesium oxide (MAG-OX) 400 mg (241.3 mg magnesium) tabletTake 1 tablet by mouth once daily.Disp: 30 tabletRfl: 5 Rnoqq-4-KXY-EPA-Fish Oil 1,000 mg (120 mg-180 mg) capTake 2 g by mouth twice daily.Disp: Rfl: omeprazole (PRILOSEC) 40 mg capsuleTake 40 mg by mouth once daily.Disp: Rfl: rOPINIRole (REQUIP) 1 mg tabletTake 1 tablet by mouth daily at bedtime.Disp: Rfl: montelukast (SINGULAIR) 10 mg tabletmontelukast 10 mg tabletDisp: Rfl: allopurinol (ZYLOPRIM) 100 mg tabletTake 100 mg by mouth once daily.Disp: Rfl: 5 PROCTOZONE-HC 2.5 % rectal creamAPPLY TO THE AFFECTED AREA(S) 2-4 times dailyDisp: Rfl: 5 fluticasone (FLONASE) 50 mcg/actuation nasal sprayUse 1 [place] in each nostril once daily.Disp: Rfl: 0 coenzyme Q10 100 mg capTake 100 mg by mouth once daily. Disp: Rfl: LORATADINE (CLARITIN ORAL)Take 1 tablet by mouth once daily.Disp: Rfl: albuterol HFA (PROAIR HFA) 90 mcg/actuation inhalerInhale 2 Puffs as instructed every 6 hours as needed.Disp: 1 InhalerRfl: 0 Klncszvczxs-Jbwluvdkg-Wdk C-Mn 500-400 mg capTake 1 capsule by mouth twice daily.Disp: Rfl: 0 Physical Exam There were no vitals taken for this visit. Gen: alert, no acute distress HEENT: normocephalic, atraumatic, no rinorrhea, no congestion, normal hearing, EOMI, no eye discharge Heart: no murmurs, S1/S2+, regular rate and rhythm Lungs: no wheezing, rales, symmetric expansion, nonlabored Abdomen: soft, nontender, nondistended Musculoskeletal: no edema, nontender Neurological: no focal deficits, alert, oriented Psychatric: cooperative, appropriate Pertinent Diagnostics/Labs/Data reviewed (ECG and echo listed personally reviewed) and include: Last ECHO Result Conclusion ECHO Collected: 05/18/2022 2:58 PM (Final result) Impression: CONCLUSIONS: - Exam indication: Pre Watchman, PAF - The left ventricle is normal in size. There is mild concentric left ventricular hypertrophy. Left ventricular systolic function is normal. EF = 63 ? 5% (2D biplane) - The right ventricle is normal in size. Right ventricular systolic function is normal. - The left atrial cavity is dilated. - The visualized aorta is dilated with a maximal dimension of (more content not included)... [facility] 02-02-2023 Hospital Discharge instructions Patient Education 02/02/2023 14:55:59 Prostate Cancer Screening Prostate Cancer Screening Prostate cancer screening is testing that is done to check for the presence of prostate cancer in men. The prostate gland is a walnut-sized gland that is located below the bladder and in front of the rectum in males. The function of the prostate is to add fluid to semen during ejaculation. Prostate cancer is one of the most common types of cancer in men. Who should have prostate cancer screening? Screening recommendations vary based on age and other risk factors, as well as between the professional organizations who make the recommendations. In general, screening is recommended if: You are age 50 to 70 and have an average risk for prostate cancer. You should talk with your health care provider about your need for screening and how often screening should be done. Because most prostate cancers are slow growing and will not cause , screening in this age group is generally reserved for men who have a 10- to 15-year life expectancy. You are younger than age 50, and you have these risk factors: ?Having a father, brother, or uncle who has been diagnosed with prostate cancer. The risk is higher if your family member's cancer occurred at an early age or if you have multiple family members with prostate cancer at an early age. ?Being a male who is Black or is of [place] or sub-Saharan descent. In general, screening is not recommended if: You are younger than age 40. You are between the ages of 40 and 49 and you have no risk factors. You are 70 years of age or older. At this age, the risks that screening can cause are greater than the benefits that it may provide. If you are at high risk for prostate cancer, your health care provider may recommend that you have screenings more often or that you start screening at a younger age. How is screening for prostate cancer done? The recommended prostate cancer screening test is a blood test called the prostate-specific antigen (PSA) test. PSA is a protein that is made in the prostate. As you age, your prostate naturally produces more PSA. Abnormally high PSA levels may be caused by: Prostate cancer. An enlarged prostate that is not caused by cancer (benign prostatic hyperplasia, or BPH). This condition is very common in older men. A prostate gland infection (prostatitis) or urinary tract infection. Certain medicines such as male hormones (like testosterone) or other medicines that raise testosterone levels. A rectal exam may be done as part of prostate cancer screening to help provide information about the size of your prostate gland. When a rectal exam is performed, it should be done after the PSA level is drawn to avoid any effect on the results. Depending on the PSA results, you may need more tests, such as: A physical exam to check the size of your prostate gland, if not done as part of screening. Blood and imaging tests. A procedure to remove tissue samples from your prostate gland for testing (biopsy). This is the only way to know for certain if you have prostate cancer. What are the benefits of prostate cancer screening? Screening can help to identify cancer at an early stage, before symptoms start and when the cancer can be treated more easily. There is a small chance that screening may lower your risk of dying from prostate cancer. The chance is small because prostate cancer is a slow-growing cancer, and most men with prostate cancer from a different cause. What are the risks of prostate cancer screening? The main risk of prostate cancer screening is diagnosing and treating prostate cancer that would never have caused any symptoms or problems. This is called overdiagnosisand overtreatment. PSA screening cannot tell you if your PSA is high due to cancer or a different cause. A prostate biopsy is the only procedure to diagnose prostate cancer. Even the results of a biopsy may not tell you if your cancer needs to be treated. Slow-growing prostate cancer may not need any treatment other than monitoring, so diagnosing and treating it may cause unnecessary stress or other side effects. Questions to ask your health care provider When should I start prostate cancer screening? What is my risk for prostate cancer? How often do I need screening? What type of screening tests do I need? How do I get my test results? What do my results mean? Do I need treatment? Where to find more information The [place] [employer]: www.cancer.org [place] [employer]: www.auanet.org Contact a health care provider if: You have difficulty urinating. You have pain when you urinate or ejaculate. You have blood in your urine or semen. You have pain in your back or in the area of your prostate. Summary Prostate cancer is a common type of cancer in men. The prostate gland is located below the bladder and in front of the rectum. This gland adds fluid to semen during ejaculation. Prostate cancer screening may identify cancer at an early stage, when the cancer can be treated more easily and is less likely to have spread to other areas of the body. The prostate-specific antigen (PSA) test is the recommended screening test for prostate cancer, but it has associated risks. Discuss the risks and benefits of prostate cancer screening with your health care provider. If you are age 70 or older, the risks that screening can cause are greater than the benefits that it may provide. This information is not intended to replace advice given to you by your health care provider. Make sure you discuss any questions you have with your health care provider. Document Revised: 10/12/2021 Document Reviewed: 10/12/2021 [employer] Patient Education 2022 [employer] Follow Up Care 07/27/2022 11:51:56 With:ALLAN JARVIS, Nghia Elizabeth, URL Address: [address] [place], [place] [id number]- When: Unknown [facility] 11-16-2022 Miscellaneous Notes The following approved medication requests have been transmitted electronically. Requested Prescriptions Signed Prescriptions Disp Refills furosemide (LASIX) 20 mg tablet 90 tablet 3 Sig: Take 1 tablet by mouth once daily. Authorizing Provider: ANGELI KIMBALL Ordering User: NY MACEDO Prescription was sent to [facility] in [place], [place], as per patient request. Ny Macedo APRN.CHA documented in this encounter [facility] 11-12-2022 Miscellaneous Notes Received request for refill of the following medications: Requested Prescriptions Pending Prescriptions Disp Refills furosemide (LASIX) 20 mg tablet 90 tablet 3 Sig: Take 1 tablet by mouth once daily. Patient requested a 90 day refill. Pharmacy verified and updated accordingly. Patient was last seen in cardiology office: 09/14/2022. Upcoming appointment scheduled: na. Labs: Hemoglobin (g/dL) Date Value 05/18/2022 13.3 08/28/2020 13.8 Hematocrit (%) Date Value 05/18/2022 41.3 08/28/2020 42.3 WBC (k/uL) Date Value 05/18/2022 6.94 08/28/2020 7.89 Platelet Count (k/uL) Date Value 05/18/2022 271 08/28/2020 263 Creatinine Date Value Ref Range Status 05/12/2022 0.98 0.73 - 1.22 mg/dL Final 07/02/2021 1.05 0.73 - 1.22 mg/dL Final documented in this encounter [facility] 10-21-2022 Miscellaneous Notes Received request for refill of the following medications: Requested Prescriptions Pending Prescriptions Disp Refills atenolol (TENORMIN) 50 mg tablet 90 tablet 3 Sig: Take 1 tablet by mouth once daily. Patient requested a 90 day refill. Pharmacy verified and updated accordingly. Patient was last seen in cardiology office: 09/14/2022 Dr. Kemp. 01/06/2022 Dr. Rosa Upcoming appointment scheduled: None scheduled at this time Labs: Hemoglobin (g/dL) Date Value 05/18/2022 13.3 08/28/2020 13.8 Hematocrit (%) Date Value 05/18/2022 41.3 08/28/2020 42.3 WBC (k/uL) Date Value 05/18/2022 6.94 08/28/2020 7.89 Platelet Count (k/uL) Date Value 05/18/2022 271 08/28/2020 263 Creatinine Date Value Ref Range Status 05/12/2022 0.98 0.73 - 1.22 mg/dL Final 07/02/2021 1.05 0.73 - 1.22 mg/dL Final Message from [employer]: Refills have been requested for the following medications: atenolol (TENORMIN) 50 mg tablet [Dr. Nathaniel Rosa] [facility] [address] [place] [address] [address] [facility] [phone] Delivery method: Pickup documented in this encounter [facility] 09-25-2022 Miscellaneous Notes The following approved medication requests have been transmitted electronically. Requested Prescriptions Signed Prescriptions Disp Refills dofetilide (TIKOSYN) 500 mcg capsule 180 capsule 3 Sig: Take 1 capsule by mouth twice daily. Authorizing Provider: ODALYS ROSA Ordering User: MOUSTAPHA MELVIN APRN.CNP Received request for refill of the following medications: Requested Prescriptions Pending Prescriptions Disp Refills dofetilide (TIKOSYN) 500 mcg capsule 180 capsule 3 Sig: Take 1 capsule by mouth twice daily. Patient requested a 90 day refill. Pharmacy verified and updated accordingly. Patient was last seen in cardiology office: 01/06/2022 Dr. Rosa. Upcoming appointment scheduled: none. Labs: Hemoglobin (g/dL) Date Value 05/18/2022 13.3 08/28/2020 13.8 Hematocrit (%) Date Value 05/18/2022 41.3 08/28/2020 42.3 WBC (k/uL) Date Value 05/18/2022 6.94 08/28/2020 7.89 Platelet Count (k/uL) Date Value 05/18/2022 271 08/28/2020 263 Creatinine Date Value Ref Range Status 05/12/2022 0.98 0.73 - 1.22 mg/dL Final 07/02/2021 1.05 0.73 - 1.22 mg/dL Final documented in this encounter [facility] 09-14-2022 History of Present illness Narrative Images from the original note were not included. [facility] [place] [facility] Department of Cardiovascular Medicine SECTION OF CARDIAC PACING and ELECTROPHYSIOLOGY OUTPATIENT VISIT DATE September 14, 2022 OUTPATIENT VISIT TYPE ESTABLISHED PRIMARY CARE PHYSICIAN: Scarlett Gaviria NP [address] [place] [id number] CHIEF COMPLAINT: Follow up visit s/p Watchman HISTORY OF PRESENT ILLNESS/NURSING INTAKE HISTORY: Mr. Peraza is a 77 year old male who presents today for follow-up visit s/p Watchman. 77 yo M w/ a pmh of persistent atrial fibrillation on Dofetilide, prior GI bleed, CAD, GERD, HTN, HLD. S/p Watchman implantation with Dr. Kemp on 05/19/2022. He has a history of atrial fibrillation and has been managed with dofetilide. He has had breakthrough AF on the dofetilide requiring cardioversion in June 2021. He states that he does feel better in NSR. In November he was diagnosed with anemia and GI bleed. He received 4 units of PRBC and iron infusions. EGD, tagged red blood cell GI study and capsule endoscopy were done and failed to find a source of bleeding. Colonoscopy was not done after the bleed. He had one done a few months before the bleed and that was negative for abnormalities. Eliquis was discontinued since November 2021 till May 2022. His hgb has been stable since receiving the blood and iron infusions. He had two blood transfusion a couple weeks ago (08/27 and 09/03/22). He continues having break through GI bleedings. Reports feeling fatigued and shortness of breath. He denies chest pain, orthopnea, cough, edema, palpitations, PND, lightheadedness or syncope. He does water exercises and slowly getting back into work out routine. He tolerates Tikosyn and remains on Eliquis. No missed doses. CHADS2-Vasc Score Breakdown 5 Total Score 2 Age >= 75 years old 1 History of CHF 1 History of hypertension 1 History of vascular disease PAST MEDICAL HISTORY Diagnosis Date Arthritis CAD (coronary artery disease) 03/26/2013 40-50% mid LAD Carpal tunnel syndrome Cervical spine pain COPD (chronic obstructive pulmonary disease) (HCC) Depression Diastolic heart failure (HCC) GERD (gastroesophageal reflux disease) HTN (hypertension), benign patient denies this Hypercholesterolemia Hyperlipemia Left atrial dilatation Melanoma (HCC) 2012 left breast melanoma s/p surgery. Obstructive lung disease (HCC) PAF (paroxysmal atrial fibrillation) (HCC) 2003 s/p ablation 2003 PUD (peptic ulcer disease) remote RLS (restless legs syndrome) Rotator cuff tear x2 each shoulder PAST SURGICAL HISTORY Procedure Laterality Date APPENDECTOMY HX BACK SURGERY HX L5, S1 removed CARDIAC CATH 03/26/13 40-50% disease in mid LAD CARDIOVERSION 11/14/15 CATHETER, ABLATION A-Fib, 2003 at [facility] HERNIA REPAIR HX 05/2011 left inguinal PAST SURGICAL HISTORY OF skin cancer removed from back, and from leg, nose,; also cyst removed PAST SURGICAL HISTORY OF 2013 Melanoma removed from left breast. PAST SURGICAL HISTORY OF 2012 bilateral cataract removal PAST SURGICAL HISTORY OF Left carpal tunnel release PAST SURGICAL HISTORY OF Right 2017 varicose vein surgery ROTATOR CUFF REPAIR x4 (2 on each shoulder) SHOULDER LEFT OUT PT SURGERY 08/2015 reverse total shoulder TONSILLECTOMY HX SOCIAL HISTORY Social History Tobacco Use Smoking status: Former Packs/day: 1.50 Years: 15.00 Pack years: 22.50 Types: Cigarettes Quit date: 05/02/1985 Years since quittin.3 Smokeless tobacco: Never Substance Use Topics Alcohol use: Yes Alcohol/week: 10.0 standard drinks Types: 10 Standard drinks or equivalent per week Comment: has an occasional drink, previously drank 2-3 per day Drug use: No FAMILY HISTORY Problem Relation Age of Onset other (TB) Mother age 78, Tuberculosis, of natural causes Heart Father s/p AVR Coronary Artery Disease Sister s/p CABG x3 No Known Problems Sister No Known Problems Brother No Known Problems Maternal Grandmother No Known Problems Maternal Grandfather No Known Problems Paternal Grandmother No Known Problems Paternal Grandfather No Known Problems Daughter No Known Problems Daughter No Known Problems Son Heart Grandchild Shone disease; at age 6 days old ALLERGIES: ALLERGIES No Known Allergies MEDICATIONS: apixaban (ELIQUIS) 5 mg tab(s)^Take 1 tablet by mouth twice daily.^Disp: 180 tablet^Rfl: 3 aspirin, enteric coated (ECOTRIN LOW STRENGTH) 81 mg EC tablet^Take 1 tablet by mouth once daily.^Disp: 30 tablet^Rfl: 5 atorvastatin (LIPITOR) 40 mg tablet^Take 1 tablet by mouth once daily.^Disp: 90 tablet^Rfl: 3 atenolol (TENORMIN) 50 mg tablet^Take 1 tablet by mouth once daily.^Disp: 90 tablet^Rfl: 3 furosemide (LASIX) 20 mg tablet^TAKE 1 TABLET ONCE DAILY^Disp: 90 tablet^Rfl: 3 (Patient taking differently: Take 20 mg by mouth every other day.) Fenofibrate (LOFIBRA) 160 mg tablet^TAKE 1 TABLET ONCE DAILY^Disp: 90 tablet^Rfl: 3 dofetilide (TIKOSYN) 500 mcg capsule^Take 1 capsule by mouth twice daily.^Disp: 180 capsule^Rfl: 3 SYMBICORT 160-4.5 mcg/actuation inhaler^Inhale 2 Puffs as instructed twice daily.^Disp: ^Rfl: cholecalciferol, vitamin D3, (VITAMIN D3 ORAL)^Take by mouth.^Disp: ^Rfl: magnesium oxide (MAG-OX) 400 mg (241.3 mg magnesium) tablet^Take 1 tablet by mouth once daily.^Disp: 30 tablet^Rfl: 5 Xutco-8-XMA-EPA-Fish Oil 1,000 mg (120 mg-180 mg) cap^Take 2 g by mouth twice daily.^Disp: ^Rfl: omeprazole (PRILOSEC) 40 mg capsule^Take 40 mg by mouth once daily.^Disp: ^Rfl: rOPINIRole (REQUIP) 1 mg tablet^Take 1 tablet by mouth daily at bedtime.^Disp: ^Rfl: montelukast (SINGULAIR) 10 mg tablet^montelukast 10 mg tablet^Disp: ^Rfl: allopurinol (ZYLOPRIM) 100 mg tablet^Take 100 mg by mouth once daily.^Disp: ^Rfl: 5 PROCTOZONE-HC 2.5 % rectal cream^APPLY TO THE AFFECTED AREA(S) 2-4 times daily^Disp: ^Rfl: 5 fluticasone (FLONASE) 50 mcg/actuation nasal spray^Use 1 [place] in each nostril once daily.^Disp: ^Rfl: 0 coenzyme Q10 100 mg cap^Take 100 mg by mouth once daily. ^Disp: ^Rfl: LORATADINE (CLARITIN ORAL)^Take 1 tablet by mouth once daily.^Disp: ^Rfl: albuterol HFA (PROAIR HFA) 90 mcg/actuation inhaler^Inhale 2 Puffs as instructed every 6 hours as needed.^Disp: 1 Inhaler^Rfl: 0 Npvzcnepnuj-Emifktoct-Tyr C-Mn 500-400 mg cap^Take 1 capsule by mouth twice daily.^Disp: ^Rfl: 0 sodium chloride 0.9 %, flush, (BD POSIFLUSH) syringe^Inject 2-10 mL intravenously as directed. For Echo procedure^Disp: 10 mL^Rfl: 0 sodium chloride 0.9 %, flush, (BD POSIFLUSH) syringe^Inject 2-10 mL intravenously as directed. For Echo procedure^Disp: 10 mL^Rfl: 0 REVIEW OF SYSTEMS: GENERAL: Negative for: Weight loss or gain, Fever or Chills, Weakness and Sleep difficulties. HEENT: Negative for: Headache, Impaired Vision, Glasses, Hearing Impairment, Ringing in Ears, Nosebleeds, Poor Dental Care, Bleeding Gums and Dentures. NECK: Negative for: Swelling, Pain, Stiffness RESPIRATORY: Negative for: Cough, Blood in Sputum, Shortness of breath, Wheezing, Apnea GASTROINTESTINAL: Negative for: Trouble swallowing, Heartburn, Change in bowel habits, Blood in stool, Dark black stools MUSCULOSKELETAL: Negtive for: Muscle or joint pain, stiffness, Joint swelling NEUROLOGIC/PSYCHIATRIC: Negative for: Weakness, Paralysis, Numbness, Tingling, Tremor, Nervousness or anxiety, Depressed mood, Memory loss SKIN: Negative for: Rash, Itching HEMATOLOGICAL/LYMPHATIC: Negative for: Easy bruising, Easy bleeding ENDOCRINE: Negative for: Heat or Cold Intolerance, Excessive Sweating, Frequent Urination, Frequent Thirst Rosa Covington RN I have seen and evaluated the patient and confirmed the findings of the Physician Veterinary Surgeon/Nurse Practitioner or fellow/resident above, with the addition of appropriate modifications and corrections. I have personally formulated an assessment and plan of management which was discussed with the patient and the clinical team. PHYSICAL EXAMINATION: BP 139/71 Pulse 70 Ht 177.8 cm (5' 10 ) Wt 93 kg (205 lb) BMI 29.41 kg/m General appearance: well appearing, in no acute distress, alert H+ENT: no JVP, no goiter apparent, no icterus Lungs: Lungs clear to auscultation, No wheezing or rhonchi Heart: RRR, COLLINS Abdomen: Abdomen soft, non-tender. Extremities: no edema Neuro: Grossly intact. Pulses: present bilaterally Skin:no apparent skin break CARDIOVASCULAR MEDICINE TESTING: EKG YOGESH Impression CONCLUSIONS: - Exam indication: Watchman follow up - The left ventricle is normal in size. Left ventricular systolic function is normal. EF = 55 5% (visual est.) - The right ventricle is normal in size. Right ventricular systolic function is normal. - The left atrial cavity is dilated. - The visualized aorta is dilated with a maximal dimension of 4.1 cm. - There is no patent foramen ovale as detected by Doppler and agitated saline contrast. - s/p 27mm Watchman FLX. The device is well seated in the AGUS with no visualization of kathleen-device leak or device related thrombus. - There is no visualized thrombus within the left atrium. - There is a prominent eustachian valve visualized in the right atrium. - Exam was compared with the prior echocardiographic exam performed on 05/19/2022 (procedural YOGESH). Similar findings. Impression CONCLUSIONS: - Exam indication: Pre Watchman, PAF - The left ventricle is normal in size. There is mild concentric left ventricular hypertrophy. Left ventricular systolic function is normal. EF = 63 5% (2D biplane) - The right ventricle is normal in size. Right ventricular systolic function is normal. - The left atrial cavity is dilated. - The visualized aorta is dilated with a maximal dimension of 4.2 cm. Recommend correlation with tomographic imaging. - 1+ to 2+ aortic regurgitation. - Estimated right ventricular systolic pressure is likely underestimated due to a weak or incomplete tricuspid regurgitation signal and is, at least, 26 mmHg consistent with normal pulmonary artery pressures. Estimated right atrial pressure is 3 mmHg based on IVC assessment. - Exam was compared with the prior echocardiographic exam performed on 02/27/2020 ([facility]). On direct image comparison, mid ascending thoracic aorta measures larger today. Aortic regurgitation also appears mildly more prominent. ESSION/PLAN AND RECOMMENDATIONS: [facility] COMPLAINT: Follow up visit s/p Watchman HISTORY OF PRESENT ILLNESS/NURSING INTAKE HISTORY: Mr. Peraza is a 77 year old male who presents today for follow-up visit s/p Watchman. 77 yo M w/ a pmh of persistent atrial fibrillation on Dofetilide, prior GI bleed, CAD, GERD, HTN, HLD. S/p Watchman implantation with Dr. Kemp on 05/19/2022. He has a history of atrial fibrillation and has been managed with dofetilide. He has had breakthrough AF on the dofetilide requiring cardioversion in June 2021. He states that he does feel better in NSR. In November he was diagnosed with anemia and GI bleed. He received 4 units of PRBC and iron infusions. EGD, tagged red blood cell GI study and capsule endoscopy were done and failed to find a source of bleeding. Colonoscopy was not done after the bleed. He had one done a few months before the bleed and that was negative for abnormalities. Eliquis was discontinued since November 2021 till May 2022. His hgb has been stable since receiving the blood and iron infusions. He had two blood transfusion a couple weeks ago (08/27 and 09/03/22). He continues having break through GI bleedings. Reports feeling fatigued and shortness of breath. He denies chest pain, orthopnea, cough, edema, palpitations, PND, lightheadedness or syncope. He does water exercises and slowly getting back into work out routine. He tolerates Tikosyn and remains on Eliquis. No missed doses. Doing very well now post likely appendage closure with watchman. EKG today reveals sinus rhythm with acceptable intervals on dofetilide. His YOGESH revealed a well-placed watchman with no leaks and no DRC. It has been about 4 months since watchman implantation and as such she can stop the apixaban and continue on aspirin 81 mg p.o. daily. Follow-up with me with a YOGESH in 1 year or sooner if needed. Kaylah Kemp MD I personally interviewed, confirmed and edited the above information as obtained by others. CONTACT INFORMATION: Kaylah Kemp MD documented in this encounter [facility] 09-02-[address] Rosa not managing the dyslipidemia please send to primary care physician thank you Teresa Goldberg APRN.SLUBBER FRAME CHANGER Received request for refill of the following medications: Requested Prescriptions No prescriptions requested or ordered in this encounter Patient requested a 90 day refill. Pharmacy verified and updated accordingly. Patient was last seen in cardiology office: 07/08/2021 DR ROSA Upcoming appointment scheduled: 09/14/2022 DR KEMP Labs: Hemoglobin (g/dL) Date Value 05/18/2022 13.3 08/28/2020 13.8 Hematocrit (%) Date Value 05/18/2022 41.3 08/28/2020 42.3 WBC (k/uL) Date Value 05/18/2022 6.94 08/28/2020 7.89 Platelet Count (k/uL) Date Value 05/18/2022 271 08/28/2020 263 Creatinine Date Value Ref Range Status 05/12/2022 0.98 0.73 - 1.22 mg/dL Final 07/02/2021 1.05 0.73 - 1.22 mg/dL Final documented in this encounter [facility] 08-31-2022 Miscellaneous Notes Call from patient requesting refill. Requested Prescriptions Pending Prescriptions Disp Refills apixaban (ELIQUIS) 5 mg tab(s) 180 tablet 3 Sig: Take 1 tablet by mouth twice daily. Patient last seen 04/13/22 Bryanna Davidson documented in this encounter [facility] 08-19-2022 Hospital Discharge instructions Follow Up Care 08/19/2022 15:50:16 With:Jevon Pantoja DO, ONC Address: [facility] [address] [place], [place] [address] [address]- [phone] Fax Business (1) When: Unknown [facility] 07-27-2022 Hospital Discharge instructions Patient Education 07/27/2022 11:45:36 Benign Prostatic Hyperplasia Benign Prostatic Hyperplasia Benign prostatic hyperplasia (BPH) is an enlarged prostate gland that is caused by the normal aging process and not by cancer. The prostate is a walnut-sized gland that is involved in the production of semen. It is located in front of the rectum and below the bladder. The bladder stores urine and the urethra is the tube that carries the urine out of the body. The prostate may get bigger as a man gets older. An enlarged prostate can press on the urethra. This can make it harder to pass urine. The build-up of urine in the bladder can cause infection. Back pressure and infection may progress to bladder damage and kidney (renal) failure. What are the causes? This condition is part of a normal aging process. However, not all men develop problems from this condition. If the prostate enlarges away from the urethra, urine flow will not be blocked. If it enlarges toward the urethra and compresses it, there will be problems passing urine. What increases the risk? This condition is more likely to develop in men over the age of 50 years. What are the signs or symptoms? Symptoms of this condition include: Getting up often during the night to urinate. Needing to urinate frequently during the day. Difficulty starting urine flow. Decrease in size and strength of your urine stream. Leaking (dribbling) after urinating. Inability to pass urine. This needs immediate treatment. Inability to completely empty your bladder. Pain when you pass urine. This is more common if there is also an infection. Urinary tract infection (UTI). How is this diagnosed? This condition is diagnosed based on your medical history, a physical exam, and your symptoms. Tests will also be done, such as: A post-void bladder scan. This measures any amount of urine that may remain in your bladder after you finish urinating. A digital rectal exam. In a rectal exam, your health care provider checks your prostate by putting a lubricated, gloved finger into your rectum to feel the back of your prostate gland. This exam detects the size of your gland and any abnormal lumps or growths. An exam of your urine (urinalysis). A prostate specific antigen (PSA) screening. This is a blood test used to screen for prostate cancer. An ultrasound. This test uses sound waves to electronically produce a picture of your prostate gland. Your health care provider may refer you to a specialist in kidney and prostate diseases (urologist). How is this treated? Once symptoms begin, your health care provider will monitor your condition (active surveillance or watchful waiting). Treatment for this condition will depend on the severity of your condition. Treatment may include: Observation and yearly exams. This may be the only treatment needed if your condition and symptoms are mild. Medicines to relieve your symptoms, including: ?Medicines to shrink the prostate. ?Medicines to relax the muscle of the prostate. Surgery in severe cases. Surgery may include: ?Prostatectomy. In this procedure, the prostate tissue is removed completely through an open incision or with a laparoscope or robotics. ?Transurethral resection of the prostate (TURP). In this procedure, a tool is inserted through the opening at the tip of the penis (urethra). It is used to cut away tissue of the inner core of the prostate. The pieces are removed through the same opening of the penis. This removes the blockage. ?Transurethral incision (TUIP). In this procedure, small cuts are made in the prostate. This lessens the prostate's pressure on the urethra. ?Transurethral microwave thermotherapy (TUMT). This procedure uses microwaves to create heat. The heat destroys and removes a small amount of prostate tissue. ?Transurethral needle ablation (TUNA). This procedure uses radio frequencies to destroy and remove a small amount of prostate tissue. ?Interstitial laser coagulation (ILC). This procedure uses a laser to destroy and remove a small amount of prostate tissue. ?Transurethral electrovaporization (TUVP). This procedure uses electrodes to destroy and remove a small amount of prostate tissue. ?Prostatic urethral lift. This procedure inserts an implant to push the lobes of the prostate away from the urethra. Follow these instructions at home: Take [id number]-[id number] and prescription medicines only as told by your health care provider. Monitor your symptoms for any changes. Contact your health care provider with any changes. Avoid drinking large amounts of liquid before going to bed or out in public. Avoid or reduce how much caffeine or alcohol you drink. Give yourself time when you urinate. Keep all follow-up visits as told by your health care provider. This is important. Contact a health care provider if: You have unexplained back pain. Your symptoms do not get better with treatment. You develop side effects from the medicine you are taking. Your urine becomes very dark or has a bad smell. Your lower abdomen becomes distended and you have trouble passing your urine. Get help right away if: You have a fever or chills. You suddenly cannot urinate. You feel lightheaded, or very dizzy, or you faint. There are large amounts of blood or clots in the urine. Your urinary problems become hard to manage. You develop moderate to severe low back or flank pain. The flank is the side of your body between the ribs and the hip. These symptoms may represent a serious problem that is an emergency. Do not wait to see if the symptoms will go away. Get medical help right away. Call your local emergency services (911 in the [place] Do not drive yourself to the hospital. Summary Benign prostatic hyperplasia (BPH) is an enlarged prostate that is caused by the normal aging process and not by cancer. An enlarged prostate can press on the urethra. This can make it hard to pass urine. This condition is part of a normal aging process and is more likely to develop in men over the age of 50 years. Get help right away if you suddenly cannot urinate. This information is not intended to replace advice given to you by your health care provider. Make sure you discuss any questions you have with your health care provider. Document Released: 04/18/2006 Document Revised: 03/13/2019 Document Reviewed: 05/23/2017 [employer] Patient Education 2019 [employer] Follow Up Care 01/26/2022 11:15:57 With:JOYCE JARVIS, Irena Dejesus, URL Address: [address] [place] [address] [place] [address]- When: Unknown [facility] 07-20-2022 Miscellaneous Notes Spoke with patient. He is scheduled for a Nurse Visit for an EKG on 07/21 @ 1:30pm at [facility]. Called and left detailed message for him and included openings for nurse visits on Tuesday. Asked him to call us and make sure he is scheduled for it on Tuesday, as we must see the EKG before we can send his refill over. Reviewed EKGs with Dr. Rosa. He would like a repeat EKG. If possible to do in the office tomorrow, Tuesday or , I can personally review this and send prescription. Need to ensure that QTc is acceptable prior to providing refills. 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 Would like refills called to the [facility] on account. documented in this encounter [facility] 06-15-2022 Note PROCEDURE: XR FOOT L T MIN 3 VIEWS COMPARISON: None. HISTORY: C/O: a pain FINDINGS: BONES:No acute fracture or dislocation. Fusion of the second proximal interphalangeal joint. Mild to moderate degenerative changes with joint space narrowing marginal osteophyte formation. Remote shave osteotomy lateral head of the fifth metatarsal. SOFT TISSUES:Negative. No visible soft tissue swelling. EFFUSION:None visible. OTHER: Negative. IMPRESSION: Degenerative changes. No acute abnormality Electronically authenticated by: BOUBACAR CORDERO Date: 2022-06-15 11:35 [facility] 05-25-2022 Miscellaneous Notes Returned call, device clinic does not directly work with Watchman implants. Left voicemail with patient for [employer] as ID cards would come from them. May 25, 2022 Patient Contact Number: [phone] (home) [phone] (cell) Patient last seen within the last year Yes Reason For Call: Patient had the watchman implanted on 05/19/22 the card that he received states he had it implanted on 05/19/24 (the year is wrong) will this be an issue or will he have to get another card. Bryanna documented in this encounter [facility] 05-18-2022 History of Present illness Narrative THE FOLLOWING WAS EVALUATED Motivation To Learn: Interested Family/Significant Other Support: Unable to assess - Family not present Cognitive Ability: Alert and oriented Patient Learns Best By: Individual Instruction The Following Influencing Factors Were Barriers To This Education Session: None The Following Physical Limitations Were Barriers To This Education Session: None Instruction Provided To: Patient Procedure: Watchman Pre-procedure information reviewed: Patient ID verified Procedure verified Physician verified Explanation of procedure Sedation level during procedure MD medication instructions from EP lab request: Start apixaban 2 weeks prior. Travel instructions/restrictions Scheduling information Possible same day discharge versus overnight hospital stay Check out time Family waiting area Physician contact with family after procedure Post Procedure Expectations reviewed: Inpatient hospital stay Post procedure antiarrhythmics and anticoagulation will be discussed with Physician, nurse practitioner or Physician store assistant upon discharge Instructions for transmitting EKG to [facility] 3 month follow up instructions Contact number for information and questions Patient Evaluation: Verbalizes understanding Follow Up Plan: Follow up as directed by MD. Supplemental Material Given: Written Material Patient education regarding radiation exposure. Instructed By Ny Vásquez RN, RN. In Department of CARDIOLOGY. documented in this encounter [facility] 05-18-2022 History of Present illness Narrative Images from the original note were not included. [facility] [place] Misty [facility] Department of Cardiovascular Medicine SECTION OF CARDIOVASCULAR IMAGING OUTPATIENT VISIT DATE May 18, 2022 OUTPATIENT VISIT TYPE CONSULTATION PRIMARY CARE PHYSICIAN: Scarlett Gaviria NP [address] [place] [address] REFERRING PHYSICIAN Kaylah Kemp [address] [facility] [address] CHIEF COMPLAINT: Patient presents with: Preprocedural evaluation HISTORY OF PRESENT ILLNESS: Cardiac consultation at the request of Dr. Kaylah Kemp. A copy of this consultation note will be provided to the requesting physician by way of shared Medical record or letter to requesting physician via US mail. Mr. Peraza is a 77 year old male who is seen today for preprocedure evaluation. Mr. Peraza has a prior medical history of atrial fibrillation managed with dofetilide and prior cardioversions (last one in June 2021), hypertension, hyperlipidemia, former smoker-COPD and history of occult GI bleeding. This was first diagnosed in November 2021, following a syncopal episode that required hospitalization and blood transfusions. He underwent extensive work-up with upper and lower endoscopy as well as pill endoscopy without obvious source of bleeding. His oral anticoagulation was held until 2 weeks ago when Eliquis was resumed. Since, he has noticed dark stools over the past 5 to 6 days, along with slightly more fatigue. Ultimately, he was deemed high bleeding risk and he was referred for watchman evaluation with Dr. Kemp. In terms of symptoms, he complaints of shortness of breath and atypical episodes of anginal lasting seconds, particularly when his hemoglobin is low. He also has noticed intermittent episodes of dark stools since discharge from the hospital in November last year. He denies lightheadedness, dizziness, and near syncope. Denies preamture CAD or SCD. 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 Currently does not exercise. NURSING INTAKE: Mr. Peraza is a 77 year old male from [place], [place], presenting today for cardiac consultation at the request of Dr. Kaylah Kemp for shared decision making appointment prior to watchman devices placement on 05/19/2022. Significant past medical history includes: - Atrial fibrillation managed with dofetilide and prior cardioversions (last DCCV 06/2021) and an ablation (2003) - Hypertension - Hyperlipidemia - COPD - History of occult GI bleeding (11/2021) requiring multiple blood transfusions - Diastolic heart failure - Coronary artery disease - Left atrial dilation - Melanoma of the skin s/p removal Family history significant for: Father- s/p AVR Sister- Coronary artery disease s/p CABG x3 Grandson- Shones heart disease; at 6 days old Mr. Peraza states that he has had issues with atrial fibrillation for the past 20 years. He recently had a syncopal episode at the beginning of 11/2021. He states that on 12/20/2021 he was at a picnic with his friends and became very pale. He was also shaking. His friend took him to the emergency room and he was diagnosed with a GI bleed. He had multiple blood transfusions. He states that since then he has had issues with blood in his stool multiple times. He states that he has noticed changes in his bowels multiple times since his first GI bleed. Dr. Rosa recommended he go back on his Eliquis about two weeks ago and referred him to Dr. Kemp for a possible watchman device. He states that since his Eliquis was restarted he has noticed that his stool has become black again. He presents today with complaints of shortness of breath at times when his hemoglobin is lower, sharp chest pains that do not last long and are occasional, lower extremity edema, and one syncope episode as listed above. He denies lightheadedness, dizziness, and near syncope. Mr. Peraza was in the [employer] for 4 years. He is now retired from [employer]. He does not follow a specific diet. He does not currently follow a specific exercise regimen. Dr. Kimball and Gianfranco from [facility]. . PAST CARDIAC HISTORY: PAST MEDICAL HISTORY Diagnosis Date Arthritis CAD (coronary artery disease) 03/26/2013 40-50% mid LAD Carpal tunnel syndrome Cervical spine pain COPD (chronic obstructive pulmonary disease) (HCC) Depression Diastolic heart failure (HCC) GERD (gastroesophageal reflux disease) HTN (hypertension), benign patient denies this Hypercholesterolemia Hyperlipemia Left atrial dilatation Melanoma (HCC) 2012 left breast melanoma s/p surgery. Obstructive lung disease (HCC) PAF (paroxysmal atrial fibrillation) (HCC) 2003 s/p ablation 2003 PUD (peptic ulcer disease) remote RLS (restless legs syndrome) Rotator cuff tear x2 each shoulder PAST SURGICAL HISTORY Procedure Laterality Date APPENDECTOMY HX BACK SURGERY HX L5, S1 removed CARDIAC CATH 03/26/13 40-50% disease in mid LAD CARDIOVERSION 11/14/15 CATHETER, ABLATION A-2003 at [facility] HERNIA REPAIR HX 05/2011 left inguinal PAST SURGICAL HISTORY OF skin cancer removed from back, and from leg, nose,; also cyst removed PAST SURGICAL HISTORY OF 2013 Melanoma removed from left breast. PAST SURGICAL HISTORY OF 2012 bilateral cataract removal PAST SURGICAL HISTORY OF Left carpal tunnel release PAST SURGICAL HISTORY OF Right 2017 varicose vein surgery ROTATOR CUFF REPAIR x4 (2 on each shoulder) SHOULDER LEFT OUT PT SURGERY 08/2015 reverse total shoulder TONSILLECTOMY HX SOCIAL HISTORY Social History Tobacco Use Smoking status: Former Packs/day: 1.50 Years: 15.00 Pack years: 22.50 Types: Cigarettes Quit date: 05/02/1985 Years since quittin.0 Smokeless tobacco: Never Substance Use Topics Alcohol use: Yes Alcohol/week: 10.0 standard drinks Types: 10 Standard drinks or equivalent per week Comment: has an occasional drink, previously drank 2-3 per day Drug use: No FAMILY HISTORY Problem Relation Age of Onset other (TB) Mother age 78, Tuberculosis, of natural causes Heart Father s/p AVR Coronary Artery Disease Sister s/p CABG x3 No Known Problems Sister No Known Problems Brother No Known Problems Maternal Grandmother No Known Problems Maternal Grandfather No Known Problems Paternal Grandmother No Known Problems Paternal Grandfather No Known Problems Daughter No Known Problems Daughter No Known Problems Son Heart Grandchild Shone disease; at age 6 days old ALLERGIES: ALLERGIES No Known Allergies MEDICATIONS: atorvastatin (LIPITOR) 40 mg tablet^Take 1 tablet by mouth once daily.^Disp: 90 tablet^Rfl: 3 apixaban (ELIQUIS) 5 mg tab(s)^Take 1 tablet by mouth twice daily.^Disp: 60 tablet^Rfl: 2 atenolol (TENORMIN) 50 mg tablet^Take 1 tablet by mouth once daily.^Disp: 90 tablet^Rfl: 3 furosemide (LASIX) 20 mg tablet^TAKE 1 TABLET ONCE DAILY^Disp: 90 tablet^Rfl: 3 (Patient taking differently: Take 20 mg by mouth every other day.) Fenofibrate (LOFIBRA) 160 mg tablet^TAKE 1 TABLET ONCE DAILY^Disp: 90 tablet^Rfl: 3 dofetilide (TIKOSYN) 500 mcg capsule^Take 1 capsule by mouth twice daily.^Disp: 180 capsule^Rfl: 3 SYMBICORT 160-4.5 mcg/actuation inhaler^Inhale 2 Puffs as instructed twice daily.^Disp: ^Rfl: cholecalciferol, vitamin D3, (VITAMIN D3 ORAL)^Take by mouth.^Disp: ^Rfl: magnesium oxide (MAG-OX) 400 mg (241.3 mg magnesium) tablet^Take 1 tablet by mouth once daily.^Disp: 30 tablet^Rfl: 5 Zjvcz-9-FIL-EPA-Fish Oil 1,000 mg (120 mg-180 mg) cap^Take 2 g by mouth twice daily.^Disp: ^Rfl: omeprazole (PRILOSEC) 40 mg capsule^Take 40 mg by mouth once daily.^Disp: ^Rfl: rOPINIRole (REQUIP) 1 mg tablet^Take 1 tablet by mouth daily at bedtime.^Disp: ^Rfl: DULoxetine (CYMBALTA) 30 mg capsule^Take 60 mg by mouth once daily.^Disp: ^Rfl: montelukast (SINGULAIR) 10 mg tablet^montelukast 10 mg tablet^Disp: ^Rfl: allopurinol (ZYLOPRIM) 100 mg tablet^Take 100 mg by mouth once daily.^Disp: ^Rfl: 5 PROCTOZONE-HC 2.5 % rectal cream^APPLY TO THE AFFECTED AREA(S) 2-4 times daily^Disp: ^Rfl: 5 fluticasone (FLONASE) 50 mcg/actuation nasal spray^Use 1 [place] in each nostril once daily.^Disp: ^Rfl: 0 coenzyme Q10 100 mg cap^Take 100 mg by mouth once daily. ^Disp: ^Rfl: LORATADINE (CLARITIN ORAL)^Take 1 tablet by mouth once daily.^Disp: ^Rfl: albuterol HFA (PROAIR HFA) 90 mcg/actuation inhaler^Inhale 2 Puffs as instructed every 6 hours as needed.^Disp: 1 Inhaler^Rfl: 0 Ewrinetsgtt-Geyrkyitw-Irg C-Mn 500-400 mg cap^Take 1 capsule by mouth twice daily.^Disp: ^Rfl: 0 sodium chloride 0.9 %, flush, (BD POSIFLUSH) syringe^Inject 2-10 mL intravenously as directed. For Echo procedure^Disp: 10 mL^Rfl: 0 REVIEW OF SYSTEMS: Positive in BOLD GENERAL: Negative for: Weight loss or gain, Fever or Chills, Weakness and Sleep difficulties. HEENT: Negative for: Headache, Impaired Vision, Glasses, Hearing Impairment, Ringing in Ears, Nosebleeds, Poor dental care, Bleeding Gums, Dentures NECK: Negative for: Swelling, Pain, Stiffness RESPIRATORY: Negative for: Cough, Blood in Sputum, Shortness of breath, Wheezing, Apnea GASTROINTESTINAL: Negative for: Trouble swallowing, Heartburn, Change in bowel habits, Blood in stool, Dark black stools MUSCULOSKELETAL: Negative for: Muscle or joint pain, Stiffness , Joint swelling NEUROLOGIC/PSYCHIATRIC: Negative for: Weakness, Paralysis, Numbness, Tingling, Tremor, Nervousness, Depressed mood, Memory loss SKIN: Negative for: Rashes, Itching HEMATOLOGICAL/LYMPHATIC: Negative for: Easy bruising , Easy bleeding ENDOCRINE: Negative for: Heat or cold intolerance, Excessive sweating, Frequent urination, Frequent thirst PHYSICAL EXAMINATION: BP 136/81 (BP Site: Right Arm, BP Position: Sitting, BP Cuff Size: Regular Adult) Pulse 83 Ht 177.8 cm (5' 10 ) Wt 94.7 kg (208 lb 11.2 oz) SpO2 97% BMI 29.95 kg/m General: Well appearing, in no acute distress. Skin: No clubbing, no cyanosis. Eyes: Extra ocular movements intact Oropharynx: Teeth in good repair. Neck: No jugular venous distention, no carotid bruits, carotids have a normal upstroke, no palpable thyromegaly. Lungs: Clear to auscultation bilaterally, wheezing on forced exhaled or rhonchi. Heart: RRR, PMI not displaced, S1, S2 normal, no S3, no S4, no heaves, no rub and no murmur. Abdomen: Soft, nontender, bowel sounds normal, no palpable organomegaly, no bruits. Extremities: No peripheral edema . Grade 2/4 distal pulses bilaterally. Neuro: Oriented to person, place and time, alert, cooperative, gait coordinated. CARDIOVASCULAR MEDICINE TESTING: Recent Labs 05/18/22 1328 WBC 6.94 HB 13.3 HCT 41.3 PLT 271 No results found for this basename: hba1c No results found for this basename: pbnp:4 No results found for this basename: pcglucose:6 Cholesterol, Total 193 03/07/2019 HDL Cholesterol 39 03/07/2019 LDL Cholesterol 104 03/07/2019 Triglyceride 252 03/07/2019 TSH 4.020 07/12/2018 ECG 05/18/22 Last EKG Result Conclusion ECG COMPLETE Collected: 05/18/2022 11:46 AM (Preliminary result) Impression: SINUS RHYTHM WITH 1ST DEGREE AV BLOCK PROLONGED QT INTERVAL OR TU FUSION, CONSIDER HYPOKALEMIA ABNORMAL ECG Last ECHO Result Conclusion ECHO Collected: 05/18/2022 2:58 PM (Final result) Impression: CONCLUSIONS: - Exam indication: Pre Watchman, PAF - The left ventricle is normal in size. There is mild concentric left ventricular hypertrophy. Left ventricular systolic function is normal. EF = 63 5% (2D biplane) - The right ventricle is normal in size. Right ventricular systolic function is normal. - The left atrial cavity is dilated. - The visualized aorta is dilated with a maximal dimension of 4.2 cm. Recommend correlation with tomographic imaging. - 1+ to 2+ aortic regurgitation. - Estimated right ventricular systolic pressure is likely underestimated due to a weak or incomplete tricuspid regurgitation signal and is, at least, 26 mmHg consistent with normal pulmonary artery pressures. Estimated right atrial pressure is 3 mmHg based on IVC assessment. - Exam was compared with the prior echocardiographic exam performed on 02/27/2020 ([facility]). On direct image comparison, mid ascending thoracic aorta measures larger today. Aortic regurgitation also appears mildly more prominent. * * * Final * * * I have personally reviewed the Electrocardiogram and Echocardiogram. IMPRESSION: Mr. Peraza has a prior medical history of atrial fibrillation managed with dofetilide and prior cardioversions (last one in June 2021), hypertension, hyperlipidemia, former smoker-COPD and history of occult GI bleeding, who is undergoing evaluation for watchman device. Euvolemic on exam with significant murmurs on auscultation. ECG with normal sinus rhythm and no ischemic finding, prolonged QTC Echocardiogram demonstrated mild 1-2+ aortic regurgitation, preserved biventricular function and mildly dilated visualized aorta up to 4.2 cm. PLAN AND RECOMMENDATIONS: Atrial fibrillation - Elevated CHADS2 DS2-vasc score of 3 - Has bled score of 4 - Overall, I agree that Mr. Peraza will benefit from watchman device to mitigate his stroke risk and hopefully will be able to stop his OAC if necessary, given ongonig occult GI bleeding. - Chekcing CBC now, given hsitroy of darker stools and fatigue for the past 5 to 6 days. 2. Hypertension. -Continue current management. -Patient is advised to record BP log at home and communicate with his doctors if greater than 130/80 mmHg 3. CAD - moderate LAD disease in left heart cath from 2012 - last nuclear stress test in 2020 negative for ishcemia. -Continue high intensity statins 4. Dilated thoracic aorta -Incidentally found on echocardiogram today -Recommend correlation with CTA chest as an outpatient. CONTACT INFORMATION: Flory Verduzco MD Clinical Staff. Section of Cardiovascular Imaging. Misty Henning Department of Cardiovascular Medicine Heart and Vascular [place] [facility] / documented in this encounter [facility] 05-07-2022 Miscellaneous Notes Received request for refill of the following medications: Requested Prescriptions Pending Prescriptions Disp Refills atorvastatin (LIPITOR) 40 mg tablet 90 tablet 3 Sig: Take 1 tablet by mouth once daily. Patient requested a 90 day refill. Pharmacy verified and updated accordingly. Patient was last seen in cardiology office: 01/06/2022 Dr. Rosa. Upcoming appointment scheduled: none. Labs: Hemoglobin (g/dL) Date Value 07/02/2021 9.6 08/28/2020 13.8 Hematocrit (%) Date Value 07/02/2021 30.3 08/28/2020 42.3 WBC (k/uL) Date Value 07/02/2021 7.62 08/28/2020 7.89 Platelet Count (k/uL) Date Value 07/02/2021 211 08/28/2020 263 Creatinine Date Value Ref Range Status 07/02/2021 1.05 0.73 - 1.22 mg/dL Final 03/09/2021 0.87 0.73 - 1.22 mg/dL Final documented in this encounter [facility] 04-19-2022 Miscellaneous Notes The date of 05/19/22 with offered & accepted by patient. Needs Shared Decision Making appointment with Clinical Cardiology staff, Echo, ECG, pre-op Covid-19 test & Labs (CBC,BMP,T&S) one day prior to procedure date - please schedule appointments after 10 am. Medication instructions given, as indicated below. Stated understanding. ----- Message from Kaylah Kemp MD sent at 04/16/2022 9:44 AM EST ----- Regarding: Watchman Please schedule for Watchman with me. Start apixaban 2 weeks prior. Needs shred decision making and echo. THank you. Kaylah Kemp MD documented in this encounter [facility] 04-14-2022 Miscellaneous Notes Images from the original note were not included. April 14, 2022 Patient Contact Number: [phone] (home) [phone] (cell) Patient last seen within the last year: Yes Reason For Call: Other Issue: Note received from Mr. Peraza's GI physician that he may resume blood thinners for planned procedure with Dr. Kemp. Note scanned into [employer] drive. Rachel [id number] documented in this encounter [facility] 04-13-2022 History of Present illness Narrative Images from the original note were not included. Heart and Vascular [place] Misty Henning Department of Cardiovascular Medicine SECTION OF CARDIAC PACING and ELECTROPHYSIOLOGY OUTPATIENT VISIT DATE April 13, 2022 OUTPATIENT VISIT TYPE CONSULTATION PRIMARY CARE PHYSICIAN: Scarlett Gaviria NP [address] [place] [id number] REFERRING PHYSICIAN SELF CHIEF COMPLAINT: AF Watchman referral HISTORY OF PRESENT ILLNESS/NURSING INTAKE HISTORY: Cardiac consultation at the request of Dr. Montelongo.A copy of this consultation note will be provided to the requesting physician by way of shared Medical record or letter to requesting physician via [place] mail. Mr. Peraza is a 77 year old male who is seen today for consult for a Watchman implant. He has a history of atrial fibrillation and has been managed with dofetilide. He has had breakthrough AF on the dofetilide requiring cardioversion in June 2021. He states that he does feel better in NSR. In November he was diagnosed with anemia and GI bleed. He received 4 units of PRBC and iron infusions. EGD, tagged red blood cell GI study and capsule endoscopy were done and failed to find a source of bleeding. Colonoscopy was not done after the bleed. He had one done a few months before the bleed and that was negative for abnormalities. Eliquis has been discontinued since November. His hgb has been stable since receiving the blood and iron infusions. He denies chest pain, shortness of breath, orthopnea, cough, edema, palpitations, PND, lightheadedness or syncope. Medical co-morbidities include CAD, GERD, hypertension, hyperlipidemia, obstructive lung disease. CHADS2-Vasc Score Breakdown 5 Total Score 2 Age >= 75 years old 1 History of CHF 1 History of hypertension 1 History of vascular disease Stress test 10/2020: CONCLUSIONS: 1. SPECT Perfusion Study: Normal. 2. There is no scintigraphic evidence for inducible ischemia. 3. No evidence of scarred myocardium. 4. Left ventricle is mildly dilated. The left ventricle systolic function is normal. 5. Right ventricle is normal in size. The right ventricle systolic function is normal. 6. This is a low risk scan. Gated Stress FBP LVEF % 52 EKG today: PAST MEDICAL HISTORY Diagnosis Date Arthritis CAD (coronary artery disease) 03/26/13 40-50% mid LAD Carpal tunnel syndrome Cervical spine pain Depression Diastolic heart failure (HCC) GERD (gastroesophageal reflux disease) HTN (hypertension), benign patient denies this Hypercholesterolemia Hyperlipemia Left atrial dilatation Melanoma (HCC) 2012 left breast melanoma s/p surgery. Obstructive lung disease (HCC) PAF (paroxysmal atrial fibrillation) (HCC) 2003 s/p ablation 2003 PUD (peptic ulcer disease) remote RLS (restless legs syndrome) Rotator cuff tear x2 each shoulder PAST SURGICAL HISTORY Procedure Laterality Date APPENDECTOMY HX BACK SURGERY HX L5, S1 removed CARDIAC CATH 03/26/13 40-50% disease in mid LAD CARDIOVERSION 11/14/15 CATHETER, ABLATION A-, 2003 at [facility] HERNIA REPAIR HX 05/2011 left inguinal PAST SURGICAL HISTORY OF skin cancer removed from back, and from leg, nose,; also cyst removed PAST SURGICAL HISTORY OF 2013 Melanoma removed from left breast. PAST SURGICAL HISTORY OF 2012 bilateral cataract removal PAST SURGICAL HISTORY OF Left carpal tunnel release PAST SURGICAL HISTORY OF Right 2017 varicose vein surgery ROTATOR CUFF REPAIR x4 (2 on each shoulder) SHOULDER LEFT OUT PT SURGERY 08/2015 reverse total shoulder TONSILLECTOMY HX SOCIAL HISTORY Social History Tobacco Use Smoking status: Former Packs/day: 1.50 Years: 16.00 Pack years: 24.00 Types: Cigarettes Quit date: 05/02/1985 Years since quittin.9 Smokeless tobacco: Never Substance Use Topics Alcohol use: Yes Comment: has an occasional drink, previously drank 2-3 per day Drug use: No FAMILY HISTORY Problem Relation Age of Onset other (TB) Mother age 78, Tuberculosis, of natural causes Heart Father age 84; s/p AVR Coronary Artery Disease Sister s/p CABG other (Other) Grandchild at age 6 days, heart problem ALLERGIES: ALLERGIES No Known Allergies MEDICATIONS: atenolol (TENORMIN) 50 mg tablet Take 1 tablet by mouth once daily. furosemide (LASIX) 20 mg tablet TAKE 1 TABLET ONCE DAILY Fenofibrate (LOFIBRA) 160 mg tablet TAKE 1 TABLET ONCE DAILY dofetilide (TIKOSYN) 500 mcg capsule Take 1 capsule by mouth twice daily. SYMBICORT 160-4.5 mcg/actuation inhaler Inhale 2 Puffs as instructed twice daily. cholecalciferol, vitamin D3, (VITAMIN D3 ORAL) Take by mouth. magnesium oxide (MAG-OX) 400 mg (241.3 mg magnesium) tablet Take 1 tablet by mouth once daily. atorvastatin (LIPITOR) 40 mg tablet TAKE 1 TABLET BY MOUTH ONCE DAILY Mehph-2-OCH-EPA-Fish Oil 1,000 mg (120 mg-180 mg) cap Take 2 g by mouth twice daily. omeprazole (PRILOSEC) 20 mg capsule Take 40 mg by mouth once daily. rOPINIRole (REQUIP) 1 mg tablet Take 1 tablet by mouth daily at bedtime. DULoxetine (CYMBALTA) 30 mg capsule Take 60 mg by mouth once daily. montelukast (SINGULAIR) 10 mg tablet montelukast 10 mg tablet allopurinol (ZYLOPRIM) 100 mg tablet Take 100 mg by mouth once daily. PROCTOZONE-HC 2.5 % rectal cream APPLY TO THE AFFECTED AREA(S) 2-4 times daily ferrous sulfate 325 mg (65 mg iron) tablet Take 1 tablet by mouth daily with breakfast. fluticasone (FLONASE) 50 mcg/actuation nasal spray Use 1 [place] in each nostril once daily. coenzyme Q10 100 mg cap Take 100 mg by mouth once daily. LORATADINE (CLARITIN ORAL) Take 1 tablet by mouth once daily. CALCIUM CARBONATE/VITAMIN D3 (CALCIUM + D ORAL) Take 1 tablet by mouth twice daily. albuterol HFA (PROAIR HFA) 90 mcg/actuation inhaler Inhale 2 Puffs as instructed every 6 hours as needed. Qrrxzszremi-Dufcnjugf-Tqe C-Mn 500-400 mg cap Take 1 capsule by mouth twice daily. REVIEW OF SYSTEMS: General, constitutional: Weight loss or gain - n, Fever or chills - n, Weakness - n, Trouble sleeping -n. Head, Eyes, Ears, Mouth: Headache, head injury - n, Glasses or contact lenses - y, Pain -n, Impaired vision -n, Decreased hearing -n, Ringing in ears -n, Nose bleeds -n, Dental difficulties -n, Bleeding gums -n, Dentures -n. Neck: Swelling -n, Pain -y, Stiffness -y. Respiratory: Cough -y, Spitting up blood - n, Shortness of breath -n, Wheezing or asthma -n. Musculoskeletal: Muscle or joint pain or stiffness -y, Joint swelling -n. Gastrointestinal: Difficulty swallowing -n, Heartburn -n, Change in bowel habits -n, Blood in stool - y, Dark black stools -y. Neurological/Psychiatric: Weakness, paralysis -n, Numbness -n, Tingling -y, Tremor -n, Nervousness or anxiety -n, Depressed mood -y, Memory loss -n. Skin: Rash -n, Itching -n. Hematological: Easy bruising -n, Easy bleeding -n. Endocrine: Heat or cold intolerance -n, Excessive sweating -n, Frequent urination -n, Frequent thirst-n. Tatiana Beltre RN I personally interviewed and examined the patient and confirmed and edited the above information as obtained by others. PHYSICAL EXAMINATION: BP 153/94 Pulse 84 Ht 177.8 cm (5' 10 ) Wt 94.8 kg (209 lb) BMI 29.99 kg/m General appearance: well appearing, in no acute distress, alert H+ENT: no JVP, no goiter apparent, no icterus Lungs: Lungs clear to auscultation, No wheezing or rhonchi Heart: RRR, no murmur, gallop, or rubs. No ectopy. Abdomen: Abdomen soft, non-tender. Extremities: no edema Neuro: Grossly intact. Pulses: present bilaterally Skin:no apparent skin break Last EKG Result Conclusion ECG COMPLETE Collected: 04/13/2022 8:31 AM (Preliminary result) Impression: SINUS RHYTHM WITH 1ST DEGREE AV BLOCK PROLONGED QT INTERVAL OR TU FUSION, CONSIDER HYPOKALEMIA ABNORMAL ECG IMPRESSION, PLAN AND RECOMMENDATIONS: CHIEF COMPLAINT: AF Watchman referral HISTORY OF PRESENT ILLNESS: Cardiac consultation at the request of Dr. Montelongo.A copy of this consultation note will be provided to the requesting physician by way of shared Medical record or letter to requesting physician via [place] mail. Mr. Peraza is a 77 year old male who is seen today for consult for a Watchman implant. He has a history of atrial fibrillation and has been managed with dofetilide. He has had breakthrough AF on the dofetilide requiring cardioversion in June 2021. He states that he does feel better in NSR. In November he was diagnosed with anemia and GI bleed. He received 4 units of PRBC and iron infusions. EGD, tagged red blood cell GI study and capsule endoscopy were done and failed to find a source of bleeding. Colonoscopy was not done after the bleed. He had one done a few months before the bleed and that was negative for abnormalities. Eliquis has been discontinued since November. His hgb has been stable since receiving the blood and iron infusions. He denies chest pain, shortness of breath, orthopnea, cough, edema, palpitations, PND, lightheadedness or syncope. Medical co-morbidities include CAD, GERD, hypertension, hyperlipidemia, obstructive lung disease. Persistent atrial fibrillation. He is currently in sinus rhythm on dofetilide. His ECG reveals sinus rhythm with acceptable intervals. More recently he had significant GI bleeding with hemoglobin dropping to about 5 g. He had endoscopies but a source could not be identified. I agree that he is a candidate for left atrial appendage closure for stroke prevention and avoidance of long-term oral anticoagulation. We discussed the procedure in detail including specific risks and he wants to proceed. First he will need to follow-up with his GI doctors to obtain an opinion regarding short term oral anticoagulation. Once he has completed this he will call my office to schedule. Kaylah Kemp MD I personally interviewed, confirmed and edited the above information as obtained by others. CONTACT INFORMATION: Kaylah Kemp MD documented in this encounter [facility] 02-18-2022 Hospital Discharge instructions Follow Up Care 02/18/2022 14:18:00 With:Jevon Pantoja Address: [facility] [address] [place] [address] [phone] Fax Business (1) When: Unknown Comments:injectafer x 2 doses. cbc, cmp, iron studies q3mos f/u in a year. [facility] 01-26-2022 Hospital Discharge instructions Patient Education 01/26/2022 10:57:16 Benign Prostatic Hyperplasia Benign Prostatic Hyperplasia Benign prostatic hyperplasia (BPH) is an enlarged prostate gland that is caused by the normal aging process and not by cancer. The prostate is a walnut-sized gland that is involved in the production of semen. It is located in front of the rectum and below the bladder. The bladder stores urine and the urethra is the tube that carries the urine out of the body. The prostate may get bigger as a man gets older. An enlarged prostate can press on the urethra. This can make it harder to pass urine. The build-up of urine in the bladder can cause infection. Back pressure and infection may progress to bladder damage and kidney (renal) failure. What are the causes? This condition is part of a normal aging process. However, not all men develop problems from this condition. If the prostate enlarges away from the urethra, urine flow will not be blocked. If it enlarges toward the urethra and compresses it, there will be problems passing urine. What increases the risk? This condition is more likely to develop in men over the age of 50 years. What are the signs or symptoms? Symptoms of this condition include: Getting up often during the night to urinate. Needing to urinate frequently during the day. Difficulty starting urine flow. Decrease in size and strength of your urine stream. Leaking (dribbling) after urinating. Inability to pass urine. This needs immediate treatment. Inability to completely empty your bladder. Pain when you pass urine. This is more common if there is also an infection. Urinary tract infection (UTI). How is this diagnosed? This condition is diagnosed based on your medical history, a physical exam, and your symptoms. Tests will also be done, such as: A post-void bladder scan. This measures any amount of urine that may remain in your bladder after you finish urinating. A digital rectal exam. In a rectal exam, your health care provider checks your prostate by putting a lubricated, gloved finger into your rectum to feel the back of your prostate gland. This exam detects the size of your gland and any abnormal lumps or growths. An exam of your urine (urinalysis). A prostate specific antigen (PSA) screening. This is a blood test used to screen for prostate cancer. An ultrasound. This test uses sound waves to electronically produce a picture of your prostate gland. Your health care provider may refer you to a specialist in kidney and prostate diseases (urologist). How is this treated? Once symptoms begin, your health care provider will monitor your condition (active surveillance or watchful waiting). Treatment for this condition will depend on the severity of your condition. Treatment may include: Observation and yearly exams. This may be the only treatment needed if your condition and symptoms are mild. Medicines to relieve your symptoms, including: ?Medicines to shrink the prostate. ?Medicines to relax the muscle of the prostate. Surgery in severe cases. Surgery may include: ?Prostatectomy. In this procedure, the prostate tissue is removed completely through an open incision or with a laparoscope or robotics. ?Transurethral resection of the prostate (TURP). In this procedure, a tool is inserted through the opening at the tip of the penis (urethra). It is used to cut away tissue of the inner core of the prostate. The pieces are removed through the same opening of the penis. This removes the blockage. ?Transurethral incision (TUIP). In this procedure, small cuts are made in the prostate. This lessens the prostate's pressure on the urethra. ?Transurethral microwave thermotherapy (TUMT). This procedure uses microwaves to create heat. The heat destroys and removes a small amount of prostate tissue. ?Transurethral needle ablation (TUNA). This procedure uses radio frequencies to destroy and remove a small amount of prostate tissue. ?Interstitial laser coagulation (ILC). This procedure uses a laser to destroy and remove a small amount of prostate tissue. ?Transurethral electrovaporization (TUVP). This procedure uses electrodes to destroy and remove a small amount of prostate tissue. ?Prostatic urethral lift. This procedure inserts an implant to push the lobes of the prostate away from the urethra. Follow these instructions at home: Take [id number]-[id number] and prescription medicines only as told by your health care provider. Monitor your symptoms for any changes. Contact your health care provider with any changes. Avoid drinking large amounts of liquid before going to bed or out in public. Avoid or reduce how much caffeine or alcohol you drink. Give yourself time when you urinate. Keep all follow-up visits as told by your health care provider. This is important. Contact a health care provider if: You have unexplained back pain. Your symptoms do not get better with treatment. You develop side effects from the medicine you are taking. Your urine becomes very dark or has a bad smell. Your lower abdomen becomes distended and you have trouble passing your urine. Get help right away if: You have a fever or chills. You suddenly cannot urinate. You feel lightheaded, or very dizzy, or you faint. There are large amounts of blood or clots in the urine. Your urinary problems become hard to manage. You develop moderate to severe low back or flank pain. The flank is the side of your body between the ribs and the hip. These symptoms may represent a serious problem that is an emergency. Do not wait to see if the symptoms will go away. Get medical help right away. Call your local emergency services (911 in the [place] Do not drive yourself to the hospital. Summary Benign prostatic hyperplasia (BPH) is an enlarged prostate that is caused by the normal aging process and not by cancer. An enlarged prostate can press on the urethra. This can make it hard to pass urine. This condition is part of a normal aging process and is more likely to develop in men over the age of 50 years. Get help right away if you suddenly cannot urinate. This information is not intended to replace advice given to you by your health care provider. Make sure you discuss any questions you have with your health care provider. Document Released: 04/18/2006 Document Revised: 03/13/2019 Document Reviewed: 05/23/2017 [employer] Patient Education 2020 [employer]. Follow Up Care 12/30/2021 10:17:50 With:JOYCE JARVIS, Irena W, URL Address: [address] [place] [address]- When: Unknown [facility] 01-01-2022 Miscellaneous Notes Patient called procedure bi data modeler, advised he received the earlier message from Dr. Rosa' nurse. Patient requested lab orders be faxed to [facility] while he was there getting an injection. Faxed and confirmed with tech/patient as being received. Results will be faxed to [phone] once complete. Called and left voicemail message for the patient per below message. Will try reaching him again at a later time to be sure he got the message. Reviewed below. Upon reviewing discharge summary, patient was to have follow up with a few specialists and is not to resume Eliquis until cleared by GI and hematology. Dr. Rosa does not manage this patient's furosemide, but with recent blood loss he should not resume this provided that his weight is stable and he is not having LE edema, abdominal bloating or difficulties breathing. Recommend that he obtain labs prior to his appointment with Dr. Rosa. I have placed orders for this. Moustapha Melvin APRN.SLUBBER FRAME CHANGER Patient left a voice message on procedure bi data modeler's number regarding his recent 12/20/2021 hospital admission at [place]. States he presented to the emergency room with dizziness and having shakes. Blood count was 5.3 and received 4 units of blood . Taken off Lasix and Eliquis, is inquiring about when he should return to the medications. Patient has a 01/06 appointment in office with Dr. Rosa, per previous encounter the [place]'s records from this stay have been scanned into [employer]. Please contact patient today at [phone] cell, granting permission to leave a message. Routing to nursing to triage the call and then seek SLUBBER FRAME CHANGER recommendation. documented in this encounter [facility] 12-25-2021 Miscellaneous Notes Received recent hospital stay records from [facility]. Next appt with Dr. Rosa 01/06/2022. Sent for scanning. documented in this encounter [facility] 12-23-2021 Hospital Discharge instructions Follow Up Care 12/23/2021 12:37:02 With:Jevon Pantoja Address: [facility] [address] [place] [address] [place] [address] [phone] Fax Business (1) When: Unknown Comments:f/u in 8 wks. cbc weeklyiron studies monthlygive two doses of injectafer 750mg. refer to Dr. Bolaños. [facility] 12-01-2021 Hospital Discharge instructions Patient Education 12/01/2021 10:23:38 Gastroesophageal Reflux Disease, Adult Gastroesophageal Reflux Disease, Adult Gastroesophageal reflux (SHANTE) happens when acid from the stomach flows up into the tube that connects the mouth and the stomach (esophagus). Normally, food travels down the esophagus and stays in the stomach to be digested. However, when a person has SHANTE, food and stomach acid sometimes move back up into the esophagus. If this becomes a more serious problem, the person may be diagnosed with a disease called gastroesophageal reflux disease (GERD). GERD occurs when the reflux: Happens often. Causes frequent or severe symptoms. Causes problems such as damage to the esophagus. When stomach acid comes in contact with the esophagus, the acid may cause soreness (inflammation) in the esophagus. Over time, GERD may create small holes (ulcers) in the lining of the esophagus. What are the causes? This condition is caused by a problem with the muscle between the esophagus and the stomach (lower esophageal sphincter, or LES). Normally, the LES muscle closes after food passes through the esophagus to the stomach. When the LES is weakened or abnormal, it does not close properly, and that allows food and stomach acid to go back up into the esophagus. The LES can be weakened by certain dietary substances, medicines, and medical conditions, including: Tobacco use. . Having a hiatal hernia. Alcohol use. Certain foods and beverages, such as coffee, chocolate, onions, and peppermint. What increases the risk? You are more likely to develop this condition if you: Have an increased body weight. Have a connective tissue disorder. Use NSAID medicines. What are the signs or symptoms? Symptoms of this condition include: Heartburn. Difficult or painful swallowing. The feeling of having a lump in the throat. A bitter taste in the mouth. Bad breath. Having a large amount of saliva. Having an upset or bloated stomach. Belching. Chest pain. Different conditions can cause chest pain. Make sure you see your health care provider if you experience chest pain. Shortness of breath or wheezing. Ongoing (chronic) cough or a night-time cough. Wearing away of tooth enamel. Weight loss. How is this diagnosed? Your health care provider will take a medical history and perform a physical exam. To determine if you have mild or severe GERD, your health care provider may also monitor how you respond to treatment. You may also have tests, including: A test to examine your stomach and esophagus with a small camera (endoscopy). A test that measures the acidity level in your esophagus. A test that measures how much pressure is on your esophagus. A barium swallow or modified barium swallow test to show the shape, size, and functioning of your esophagus. How is this treated? The goal of treatment is to help relieve your symptoms and to prevent complications. Treatment for this condition may vary depending on how severe your symptoms are. Your health care provider may recommend: Changes to your diet. Medicine. Surgery. Follow these instructions at home: Eating and drinking Follow a diet as recommended by your health care provider. This may involve avoiding foods and drinks such as: ?Coffee and tea (with or without caffeine). ?Drinks that contain alcohol. ?Energy drinks and sports drinks. ?Carbonated drinks or sodas. ?Chocolate and cocoa. ?Peppermint and mint flavorings. ?Garlic and onions. ?Horseradish. ?Spicy and acidic foods, including peppers, chili powder, fountain powder, vinegar, hot sauces, and barbecue sauce. ?Lund fruit juices and citrus fruits, such as oranges, maribell, and limes. ?Tomato-based foods, such as red sauce, chili, salsa, and pizza with red sauce. ?Fried and fatty foods, such as donuts, frisian fries, potato chips, and high-fat dressings. ?High-fat meats, such as hot dogs and fatty cuts of red and white meats, such as rib eye steak, sausage, ham, and bowles. ?High-fat dairy items, such as whole milk, butter, and cream cheese. Eat small, frequent meals instead of large meals. Avoid drinking large amounts of liquid with your meals. Avoid eating meals during the 2 3 hours before bedtime. Avoid lying down right after you eat. Do not exercise right after you eat. Lifestyle Do not use any products that contain nicotine or tobacco, such as cigarettes, e-cigarettes, and chewing tobacco. If you need help quitting, ask your health care provider. Try to reduce your stress by using methods such as yoga or meditation. If you need help reducing stress, ask your health care provider. If you are overweight, reduce your weight to an amount that is healthy for you. Ask your health care provider for guidance about a safe weight loss goal. General instructions Pay attention to any changes in your symptoms. Take vkrj-nko-cnsyadh and prescription medicines only as told by your health care provider. Do not take aspirin, ibuprofen, or other NSAIDs unless your health care provider told you to do so. Wear loose-fitting clothing. Do not wear anything tight around your waist that causes pressure on your abdomen. Raise (elevate) the head of your bed about 6 inches (15 cm). Avoid bending over if this makes your symptoms worse. Keep all follow-up visits as told by your health care provider. This is important. Contact a health care provider if: You have: ?New symptoms. ?Unexplained weight loss. ?Difficulty swallowing or it hurts to swallow. ?Wheezing or a persistent cough. ?A hoarse voice. Your symptoms do not improve with treatment. Get help right away if you: Have pain in your arms, neck, jaw, teeth, or back. Feel sweaty, dizzy, or light-headed. Have chest pain or shortness of breath. Vomit and your vomit looks like blood or coffee grounds. Faint. Have stool that is bloody or black. Cannot swallow, drink, or eat. Summary Gastroesophageal reflux happens when acid from the stomach flows up into the esophagus. GERD is a disease in which the reflux happens often, causes frequent or severe symptoms, or causes problems such as damage to the esophagus. Treatment for this condition may vary depending on how severe your symptoms are. Your health care provider may recommend diet and lifestyle changes, medicine, or surgery. Contact a health care provider if you have new or worsening symptoms. Take bbrd-ied-wgbqoaw and prescription medicines only as told by your health care provider. Do not take aspirin, ibuprofen, or other NSAIDs unless your health care provider told you to do so. Keep all follow-up visits as told by your health care provider. This is important. This information is not intended to replace advice given to you by your health care provider. Make sure you discuss any questions you have with your health care provider. Document Released: 01/26/2006 Document Revised: 10/25/2018 Document Reviewed: 10/25/2018 [employer] Patient Education 2020 [employer] Follow Up Care 01/15/2021 10:07:12 With:Patricia Le CNP Address: When:[address] [facility] 11-05-2021 Hospital Discharge instructions Follow Up Care 11/05/2021 11:31:34 With:Jevon Pantoja Address: [place] [address] [place] [address]- [phone] Fax Business (1) When: Unknown Comments:monthly cbc cmp, iron studies. f/u 6 months. [facility] 11-03-2021 Hospital Discharge instructions Follow Up Care 11/03/2021 14:24:03 With:Jevon Pantoja Address: [place] [address] [place] [address]- [phone] Fax Business (1) When: Unknown Comments:cbc, cmp, iron studies, b12, folate, methylmalonic acid, spep, sflc, simmunofixation, esr, ldh today. cbc prior to f/u in 3 months. [facility] 10-21-2021 Miscellaneous Notes The following approved medication requests have been transmitted electronically. Signed Prescriptions Disp Refills apixaban (ELIQUIS) 5 mg tab(s) 180 tablet 3 Sig: Take 1 tablet by mouth twice daily. MIKE: No Authorizing Provider: CHIKA MORIN APRN.JACQUELINE EUBANKS Received request for refill of the following medications: Pending Prescriptions Disp Refills APIXABAN 5 MG TABLET 180 tablet 3 Sig: Take 1 tablet by mouth twice daily. MIKE: No Patient requested a 90 day refill. Pharmacy verified and updated accordingly. Patient was last seen in cardiology office: 07/08/2021 dr rosa Upcoming appointment scheduled:01/08/2022 dr rosa Labs: Hemoglobin (g/dL) Date Value 07/02/2021 9.6 08/28/2020 13.8 Hematocrit (%) Date Value 07/02/2021 30.3 08/28/2020 42.3 WBC (k/uL) Date Value 07/02/2021 7.62 08/28/2020 7.89 Platelet Count (k/uL) Date Value 07/02/2021 211 08/28/2020 263 Creatinine Date Value Ref Range Status 07/02/2021 1.05 0.73 - 1.22 mg/dL Final 03/09/2021 0.87 0.73 - 1.22 mg/dL Final Patient has been identified by name and date of : Yes Pending Prescriptions Disp Refills APIXABAN 5 MG TABLET 180 tablet 3 Sig: Take 1 tablet by mouth twice daily. MIKE: No RX INSTRUCTIONS: Patient aware RX will be sent to pharmacy. No need to notify patient. Maria Antonia Rock Pss documented in this encounter [facility] 10-19-2021 Miscellaneous Notes The following approved medication requests have been transmitted electronically. Signed Prescriptions Disp Refills atenolol (TENORMIN) 50 mg tablet 90 tablet 3 Sig: Take 1 tablet by mouth once daily. MIKE: No Authorizing Provider: ODALYS ROSA Ordering User: MOUSTAPHA MELVIN APRN.SLUBBER FRAME CHANGER Received request for refill of the following medications: Pending Prescriptions Disp Refills ATENOLOL 50 MG TABLET 90 tablet 3 Sig: Take 1 tablet by mouth once daily. MIKE: No Patient requested a 90 day refill. Pharmacy verified and updated accordingly. Patient was last seen in cardiology office: 07/08/2021 dr rosa Upcoming appointment scheduled: 01/08/2022 dr rosa Labs: Hemoglobin (g/dL) Date Value 07/02/2021 9.6 08/28/2020 13.8 Hematocrit (%) Date Value 07/02/2021 30.3 08/28/2020 42.3 WBC (k/uL) Date Value 07/02/2021 7.62 08/28/2020 7.89 Platelet Count (k/uL) Date Value 07/02/2021 211 08/28/2020 263 Creatinine Date Value Ref Range Status 07/02/2021 1.05 0.73 - 1.22 mg/dL Final 03/09/2021 0.87 0.73 - 1.22 mg/dL Final Patient calling to request a refill on the medication(s) below: Pending Prescriptions Disp Refills ATENOLOL 50 MG TABLET 90 tablet 3 Sig: Take 1 tablet by mouth once daily. MIKE: No Last seen in office: 07/08/2021 Jumana Shannon [facility] Falsework Builder documented in this encounter [facility] 09-15-2021 Hospital Discharge instructions Patient Education 09/15/2021 10:52:21 Benign Prostatic Hyperplasia Benign Prostatic Hyperplasia Benign prostatic hyperplasia (BPH) is an enlarged prostate gland that is caused by the normal aging process and not by cancer. The prostate is a walnut-sized gland that is involved in the production of semen. It is located in front of the rectum and below the bladder. The bladder stores urine and the urethra is the tube that carries the urine out of the body. The prostate may get bigger as a man gets older. An enlarged prostate can press on the urethra. This can make it harder to pass urine. The build-up of urine in the bladder can cause infection. Back pressure and infection may progress to bladder damage and kidney (renal) failure. What are the causes? This condition is part of a normal aging process. However, not all men develop problems from this condition. If the prostate enlarges away from the urethra, urine flow will not be blocked. If it enlarges toward the urethra and compresses it, there will be problems passing urine. What increases the risk? This condition is more likely to develop in men over the age of 50 years. What are the signs or symptoms? Symptoms of this condition include: Getting up often during the night to urinate. Needing to urinate frequently during the day. Difficulty starting urine flow. Decrease in size and strength of your urine stream. Leaking (dribbling) after urinating. Inability to pass urine. This needs immediate treatment. Inability to completely empty your bladder. Pain when you pass urine. This is more common if there is also an infection. Urinary tract infection (UTI). How is this diagnosed? This condition is diagnosed based on your medical history, a physical exam, and your symptoms. Tests will also be done, such as: A post-void bladder scan. This measures any amount of urine that may remain in your bladder after you finish urinating. A digital rectal exam. In a rectal exam, your health care provider checks your prostate by putting a lubricated, gloved finger into your rectum to feel the back of your prostate gland. This exam detects the size of your gland and any abnormal lumps or growths. An exam of your urine (urinalysis). A prostate specific antigen (PSA) screening. This is a blood test used to screen for prostate cancer. An ultrasound. This test uses sound waves to electronically produce a picture of your prostate gland. Your health care provider may refer you to a specialist in kidney and prostate diseases (urologist). How is this treated? Once symptoms begin, your health care provider will monitor your condition (active surveillance or watchful waiting). Treatment for this condition will depend on the severity of your condition. Treatment may include: Observation and yearly exams. This may be the only treatment needed if your condition and symptoms are mild. Medicines to relieve your symptoms, including: ?Medicines to shrink the prostate. ?Medicines to relax the muscle of the prostate. Surgery in severe cases. Surgery may include: ?Prostatectomy. In this procedure, the prostate tissue is removed completely through an open incision or with a laparoscope or robotics. ?Transurethral resection of the prostate (TURP). In this procedure, a tool is inserted through the opening at the tip of the penis (urethra). It is used to cut away tissue of the inner core of the prostate. The pieces are removed through the same opening of the penis. This removes the blockage. ?Transurethral incision (TUIP). In this procedure, small cuts are made in the prostate. This lessens the prostate's pressure on the urethra. ?Transurethral microwave thermotherapy (TUMT). This procedure uses microwaves to create heat. The heat destroys and removes a small amount of prostate tissue. ?Transurethral needle ablation (TUNA). This procedure uses radio frequencies to destroy and remove a small amount of prostate tissue. ?Interstitial laser coagulation (ILC). This procedure uses a laser to destroy and remove a small amount of prostate tissue. ?Transurethral electrovaporization (TUVP). This procedure uses electrodes to destroy and remove a small amount of prostate tissue. ?Prostatic urethral lift. This procedure inserts an implant to push the lobes of the prostate away from the urethra. Follow these instructions at home: Take guua-roj-jymfaua and prescription medicines only as told by your health care provider. Monitor your symptoms for any changes. Contact your health care provider with any changes. Avoid drinking large amounts of liquid before going to bed or out in public. Avoid or reduce how much caffeine or alcohol you drink. Give yourself time when you urinate. Keep all follow-up visits as told by your health care provider. This is important. Contact a health care provider if: You have unexplained back pain. Your symptoms do not get better with treatment. You develop side effects from the medicine you are taking. Your urine becomes very dark or has a bad smell. Your lower abdomen becomes distended and you have trouble passing your urine. Get help right away if: You have a fever or chills. You suddenly cannot urinate. You feel lightheaded, or very dizzy, or you faint. There are large amounts of blood or clots in the urine. Your urinary problems become hard to manage. You develop moderate to severe low back or flank pain. The flank is the side of your body between the ribs and the hip. These symptoms may represent a serious problem that is an emergency. Do not wait to see if the symptoms will go away. Get medical help right away. Call your local emergency services (911 in the [place] Do not drive yourself to the hospital. Summary Benign prostatic hyperplasia (BPH) is an enlarged prostate that is caused by the normal aging process and not by cancer. An enlarged prostate can press on the urethra. This can make it hard to pass urine. This condition is part of a normal aging process and is more likely to develop in men over the age of 50 years. Get help right away if you suddenly cannot urinate. This information is not intended to replace advice given to you by your health care provider. Make sure you discuss any questions you have with your health care provider. Document Released: 04/18/2006 Document Revised: 03/13/2019 Document Reviewed: 05/23/2017 [employer] Patient Education 2020 [employer]. 09/15/2021 10:52:18 Calorie Counting for Weight Loss Calorie Counting for Weight Loss Calories are units of energy. Your body needs a certain amount of calories from food to keep you going throughout the day. When you eat more calories than your body needs, your body stores the extra calories as fat. When you eat fewer calories than your body needs, your body ash fat to get the energy it needs. Calorie counting means keeping track of how many calories you eat and drink each day. Calorie counting can be helpful if you need to lose weight. If you make sure to eat fewer calories than your body needs, you should lose weight. Ask your health care provider what a healthy weight is for you. For calorie counting to work, you will need to eat the right number of calories in a day in order to lose a healthy amount of weight per week. A dietitian can help you determine how many calories you need in a day and will give you suggestions on how to reach your calorie goal. A healthy amount of weight to lose per week is usually 1 2 lb (0.5 0.9 kg). This usually means that your daily calorie intake should be reduced by 500 750 calories. Eating 1,200 1,500 calories per day can help most women lose weight. Eating 1,500 1,800 calories per day can help most men lose weight. What is my plan? My goal is to have calories per day. If I have this many calories per day, I should lose around pounds per week. What do I need to know about calorie counting? In order to meet your daily calorie goal, you will need to: Find out how many calories are in each food you would like to eat. Try to do this before you eat. Decide how much of the food you plan to eat. Write down what you ate and how many calories it had. Doing this is called keeping a food log. To successfully lose weight, it is important to balance calorie counting with a healthy lifestyle that includes regular activity. Aim for 150 minutes of moderate exercise (such as walking) or 75 minutes of vigorous exercise (such as running) each week. Where do I find calorie information? The number of calories in a food can be found on a Nutrition Facts label. If a food does not have a Nutrition Facts label, try to look up the calories online or ask your dietitian for help. Remember that calories are listed per serving. If you choose to have more than one serving of a food, you will have to multiply the calories per serving by the amount of servings you plan to eat. For example, the label on a package of bread might say that a serving size is 1 slice and that there are 90 calories in a serving. If you eat 1 slice, you will have eaten 90 calories. If you eat 2 slices, you will have eaten 180 calories. How do I keep a food log? Immediately after each meal, record the following information in your food log: What you ate. Don't forget to include toppings, sauces, and other extras on the food. How much you ate. This can be measured in cups, ounces, or number of items. How many calories each food and drink had. The total number of calories in the meal. Keep your food log near you, such as in a small notebook in your pocket, or use a mobile jayden or website. Some programs will calculate calories for you and show you how many calories you have left for the day to meet your goal. What are some calorie counting tips? Use your calories on foods and drinks that will fill you up and not leave you hungry: ?Some examples of foods that fill you up are nuts and nut butters, vegetables, lean proteins, and high-fiber foods like whole grains. High-fiber foods are foods with more than 5 g fiber per serving. ?Drinks such as sodas, specialty coffee drinks, alcohol, and juices have a lot of calories, yet do not fill you up. Eat nutritious foods and avoid empty calories. Empty calories are calories you get from foods or beverages that do not have many vitamins or protein, such as candy, sweets, and soda. It is better to have a nutritious high-calorie food (such as an avocado) than a food with few nutrients (such as a bag of chips). Know how many calories are in the foods you eat most often. This will help you calculate calorie counts faster. Pay attention to calories in drinks. Low-calorie drinks include water and unsweetened drinks. Pay attention to nutrition labels for low fat or fat free foods. These foods sometimes have the same amount of calories or more calories than the full fat versions. They also often have added sugar, starch, or salt, to make up for flavor that was removed with the fat. Find a way of tracking calories that works for you. Get creative. Try different apps or programs if writing down calories does not work for you. What are some portion control tips? Know how many calories are in a serving. This will help you know how many servings of a certain food you can have. Use a measuring cup to measure serving sizes. You could also try weighing out portions on a kitchen scale. With time, you will be able to estimate serving sizes for some foods. Take some time to put servings of different foods on your favorite plates, bowls, and cups so you know what a serving looks like. Try not to eat straight from a bag or box. Doing this can lead to overeating. Put the amount you would like to eat in a cup or on a plate to make sure you are eating the right portion. Use smaller plates, glasses, and bowls to prevent overeating. Try not to multitask (for example, watch TV or use your computer) while eating. If it is time to eat, sit down at a table and enjoy your food. This will help you to know when you are full. It will also help you to be aware of what you are eating and how much you are eating. What are tips for following this plan? Reading food labels Check the calorie count compared to the serving size. The serving size may be smaller than what you are used to eating. Check the source of the calories. Make sure the food you are eating is high in vitamins and protein and low in saturated and trans fats. Shopping Read nutrition labels while you shop. This will help you make healthy decisions before you decide to purchase your food. Make a grocery list and stick to it. Cooking Try to cook your favorite foods in a healthier way. For example, try baking instead of frying. Use low-fat dairy products. Meal planning Use more fruits and vegetables. Half of your plate should be fruits and vegetables. Include lean proteins like poultry and fish. How do I count calories when eating out? Ask for smaller portion sizes. Consider sharing an entree and sides instead of getting your own entree. If you get your own entree, eat only half. Ask for a box at the beginning of your meal and put the rest of your entree in it so you are not tempted to eat it. If calories are listed on the menu, choose the lower calorie options. Choose dishes that include vegetables, fruits, whole grains, low-fat dairy products, and lean protein. Choose items that are boiled, broiled, grilled, or steamed. Stay away from items that are buttered, battered, fried, or served with cream sauce. Items labeled crispy are usually fried, unless stated otherwise. Choose water, low-fat milk, unsweetened iced tea, or other drinks without added sugar. If you want an alcoholic beverage, choose a lower calorie option such as a glass of wine or light beer. Ask for dressings, sauces, and syrups on the side. These are usually high in calories, so you should limit the amount you eat. If you want a salad, choose a garden salad and ask for grilled meats. Avoid extra toppings like bowles, cheese, or fried items. Ask for the dressing on the side, or ask for olive oil and vinegar or lemon to use as dressing. Estimate how many servings of a food you are given. For example, a serving of cooked rice is cup or about the size of half a baseball. Knowing serving sizes will help you be aware of how much food you are eating at restaurants. The list below tells you how big or small some common portion sizes are based on everyday objects: ?1 oz 4 stacked dice. ?3 oz 1 deck of cards. ?1 tsp 1 . ?1 Tbsp a ping-pong ball. ?2 Tbsp 1 ping-pong ball. ? cup baseball. ?1 cup 1 baseball. Summary Calorie counting means keeping track of how many calories you eat and drink each day. If you eat fewer calories than your body needs, you should lose weight. A healthy amount of weight to lose per week is usually 1 2 lb (0.5 0.9 kg). This usually means reducing your daily calorie intake by 500 750 calories. The number of calories in a food can be found on a Nutrition Facts label. If a food does not have a Nutrition Facts label, try to look up the calories online or ask your dietitian for help. Use your calories on foods and drinks that will fill you up, and not on foods and drinks that will leave you hungry. Use smaller plates, glasses, and bowls to prevent overeating. This information is not intended to replace advice given to you by your health care provider. Make sure you discuss any questions you have with your health care provider. Document Released: 04/18/2006 Document Revised: 01/05/2019 Document Reviewed: 03/18/2017 [employer] Patient Education 2020 [employer]. Follow Up Care 07/13/2021 11:43:44 With:JOYCE JARVIS, Irena Dejesus, URL Address: [address] [place] [id number] [phone] When:12/16/2021 [facility] 08-14-2021 Miscellaneous Notes Office technical account representative, Carmen from [facility] called bi data modeler advising patient is being scheduled for an EGD and is faxing over a request to have patient hold the Eliquis for 2 days prior. Received faxed clearance and offered to Wilder Salazar LPN to address. documented in this encounter [facility] 07-27-2021 Hospital Discharge instructions Patient Education 07/27/2021 10:38:07 Colonoscopy, Care After Surgery Salam (CUSTOM) Colonoscopy Care After Surgery Please read the instructions outlined below and refer to this sheet in the next few weeks. These discharge instructions provide you with general information on caring for yourself after you leave the hospital. Your doctor may also give you specific instructions. While your treatment has been planned according to the most current medical practices available, unavoidable complications occasionally occur. If you have any problems or questions after discharge, please call your doctor. ACTIVITY You may resume your regular activity, but move at a slower pace for the next 24 hours. Take frequent rest periods for the next 24 hours. Walking will help get rid of the air and reduce the bloated feeling in your abdomen (belly). No driving for 24 hours (because of the anesthesia (medicine) used during the test). You may shower. Do not sign any important legal documents or operate any machinery for 24 hours (because of the anesthesia used during the test). NUTRITION Drink plenty of fluids. You may resume your normal diet as instructed by your doctor. Begin with a light meal and progress to your normal diet. Heavy or fried foods are harder to digest and may make you feel nauseated (sick to your stomach). Avoid alcoholic beverages for 24 hours or as instructed. MEDICATIONS You may resume your normal medications unless your doctor tells you otherwise. WHAT YOU CAN EXPECT TODAY Some feelings of bloating in the abdomen. Passage of more gas than usual. Spotting of blood in your stool or on the toilet paper. FOLLOW-UP Your doctor will discuss the results of your test with you. SEEK IMMEDIATE MEDICAL ATTENTION IF: There is more than a spotting of blood in your stool. There is abdominal distention (your abdomen is swollen). There is vomiting. You have a temperature over 101.5 F. There is abdominal pain or discomfort that is severe or gets worse throughout the day. Follow Up Care 07/15/2021 11:13:52 With:Florentino BOLAÑOS Address: [address] [place] [address]. [address] [place] [address] Business (1) When: Unknown Comments:Off ice will date and time of follw-up appt. [facility] Evaluation + Plan note Future Appointments Appointment Date:09/15/2021 09:45:00 AM Scheduled Provider:Irena COOK MD Location:[facility] Appointment Type:URO Office Visit Appointment Date:12/01/2021 10:00:00 AM Scheduled Provider:Patricia Le CNP Location[place] Appointment Type:[facility] Follow Up [facility] Evaluation + Plan note Future Appointments Appointment Date:08/14/2021 12:40:00 PM Scheduled Provider:Patricia Le CNP Location:[facility] Appointment Type:[facility] Follow Up Appointment Date:09/15/2021 09:45:00 AM Scheduled Provider:Irena COOK MD Location:[facility] Appointment Type:URO Office Visit Appointment Date:12/01/2021 10:00:00 AM Scheduled Provider:Patricia Le CNP Location:[facility] Appointment Type:[facility] Follow Up [facility] Evaluation + Plan note Future Appointments Appointment Date:12/01/2021 10:00:00 AM Scheduled Provider:Patricia Le CNP Location:[facility] Appointment Type:BADH Follow Up Appointment Date:12/22/2021 12:45:00 PM Scheduled Provider:Irena COOK MD Location:[facility] Appointment Type:URO Office Visit [facility] Evaluation + Plan note Future Appointments Appointment Date:12/01/2021 10:00:00 AM Scheduled Provider:Patricia Le CNP Location:[facility] Appointment Type:BAD Follow Up Appointment Date:12/22/2021 12:45:00 PM Scheduled Provider:Irena COOK MD Location:[facility] Appointment Type:URO Office Visit Appointment Date:02/04/2022 12:30:00 PM Scheduled Provider:Jevon Pantoja DO [facility]ONC Office Visit 15 (FT) Diagnostic Tests PendingMethylmalonic Acid 11/05/21Free K+L Lt Chains,Qn,S 11/05/21IFE and PE, Serum 11/05/21 Future Scheduled TestsCBC w/ Auto Diff 02/05/22 [facility] Evaluation + Plan note Future Appointments Appointment Date:12/22/2021 12:45:00 PM Scheduled Provider:Irena COOK MD Location:[facility] Appointment Type:URO Office Visit Appointment Date:02/04/2022 12:30:00 PM Scheduled Provider:Jevon Pantoja DO [facility]ONC Office Visit 15 (FT) Appointment Date:05/04/2022 10:40:00 AM Scheduled Provider:Patricia Le CNP Location:[facility] Appointment Type:[facility] Follow Up Future Scheduled TestsCBC w/ Auto Diff 02/05/22 [facility] Evaluation + Plan note Future Appointments Appointment Date:02/18/2022 01:15:00 PM Scheduled Provider:Jevon Pantoja DO Location:[facility] Appointment Type:ONC Office Visit 15 (FT) Appointment Date:05/04/2022 10:40:00 AM Scheduled Provider:Patricia Le CNP Location:[facility] Appointment Type:BADH Follow Up Future Scheduled TestsCBC w/ Auto Diff 02/05/22 [facility] Evaluation + Plan note Future Appointments Appointment Date:01/06/2022 09:00:00 AM Scheduled Provider:Florentino BOLAÑOS MD Location:[facility] Appointment Type:BADH Follow Up Appointment Date:01/08/2022 11:00:00 AM Scheduled Provider: [facility]ONC Injectafer (FT) Appointment Date:01/26/2022 10:00:00 AM Scheduled Provider:Irena COOK MD Location:[facility] Appointment Type:URO Office Visit Appointment Date:02/18/2022 01:15:00 PM Scheduled Provider:Jevon Pantoja DO [facility] Type:ONC Office Visit 15 (FT) Appointment Date:05/04/2022 10:40:00 AM Scheduled Provider:Patricia Le CNP Location:[facility] Appointment Type:BADH Follow Up Future Scheduled TestsCBC w/ Auto Diff 01/06/22CBC w/ Auto Diff 01/13/22CBC w/ Auto Diff 01/20/22CBC w/ Auto Diff 01/27/22CBC w/ Auto Diff 02/03/22CBC w/ Auto Diff 02/10/22CBC w/ Auto Diff 02/17/22CBC w/ Auto Diff 02/24/22CBC w/ Auto Diff 03/03/22CBC w/ Auto Diff 03/10/22CBC w/ Auto Diff 03/17/22Ferritin 01/20/22Ferritin 02/19/22Ferritin 03/22/22Iron Level 01/20/22Iron Level 02/19/22Iron Level 03/22/22Iron Percent Saturation 01/20/22Iron Percent Saturation 02/19/22Iron Percent Saturation 03/22/22 [facility] Evaluation + Plan note Future Appointments Appointment Date:01/08/2022 11:00:00 AM Scheduled Provider: [facility] Type:ONC Injectafer (FT) Appointment Date:01/26/2022 10:00:00 AM Scheduled Provider:Irena COOK MD Location:[facility] Appointment Type:URO Office Visit Appointment Date:02/18/2022 01:15:00 PM Scheduled Provider:Jevon Pantoja DO Location:.ONCOLOGY Appointment Type:ONC Office Visit 15 (FT) Appointment Date:05/04/2022 10:40:00 AM Scheduled Provider:Patricia Le CNP Location:[facility] Appointment Type:BADH Follow Up Future Scheduled TestsCBC w/ Auto Diff //CBC w/ Auto Diff 01/20/22CBC w/ Auto Diff 01/27/22CBC w/ Auto Diff 02/03/22CBC w/ Auto Diff 02/10/22CBC w/ Auto Diff 02/17/22CBC w/ Auto Diff 02/24/22CBC w/ Auto Diff 03/03/22CBC w/ Auto Diff 03/10/22CBC w/ Auto Diff 03/17/22Ferritin 01/20/22Ferritin 02/19/22Ferritin 03/22/22Iron Level 01/20/22Iron Level 02/19/22Iron Level 03/22/22Iron Percent Saturation 01/20/22Iron Percent Saturation 02/19/22Iron Percent Saturation 03/22/22 [facility] Evaluation + Plan note Future Appointments Appointment Date:01/26/2022 10:00:00 AM Scheduled Provider:Irena COOK MD Location:[facility] Appointment Type:URO Office Visit Appointment Date:02/18/2022 01:15:00 PM Scheduled Provider:Jevon Pantoja DO [facility] Type:ONC Office Visit 15 (FT) Appointment Date:05/04/2022 10:40:00 AM Scheduled Provider:Patricia Le CNP Location:[facility] Appointment Type:BADH Follow Up Future Scheduled TestsCBC w/ Auto Diff //22CBC w/ Auto Diff 01/20/22CBC w/ Auto Diff 22CBC w/ Auto Diff 02/03/22CBC w/ Auto Diff 02/10/22CBC w/ Auto Diff 02/17/22CBC w/ Auto Diff 02/24/22CBC w/ Auto Diff 03/03/22CBC w/ Auto Diff 03/10/22CBC w/ Auto Diff 03/17/22Ferritin 01/20/22Ferritin 02/19/22Ferritin 03/22/22Iron Level 01/20/22Iron Level 02/19/22Iron Level 03/22/22Iron Percent Saturation 01/20/22Iron Percent Saturation 02/19/22Iron Percent Saturation 03/22/22 [facility] Evaluation + Plan note Future Appointments Appointment Date:01/26/2022 10:00:00 AM Scheduled Provider:Irena COOK MD Location:[facility] Appointment Type:URO Office Visit Appointment Date:02/18/2022 01:15:00 PM Scheduled Provider:Jevon Pantoja DO Location:[facility] Appointment Type:ONC Office Visit 15 (FT) Appointment Date:05/04/2022 10:40:00 AM Scheduled Provider:Patricia Le CNP Location:[facility] Appointment Type:BADH Follow Up Future Scheduled TestsCBC w/ Auto Diff 01/20/22CBC w/ Auto Diff 01/27/22CBC w/ Auto Diff 02/03/22CBC w/ Auto Diff 02/10/22CBC w/ Auto Diff 02/17/22CBC w/ Auto Diff 02/24/22CBC w/ Auto Diff 03/03/22CBC w/ Auto Diff 03/10/22CBC w/ Auto Diff 03/17/22Ferritin 02/19/22Ferritin 03/22/22Iron Level 02/19/22Iron Level 03/22/22Iron Percent Saturation 02/19/22Iron Percent Saturation 03/22/22XR Abdomen 1 View 01/18/22 [facility] Evaluation + Plan note Future Appointments Appointment Date:01/26/2022 10:00:00 AM Scheduled Provider:Irena COOK MD Location:[facility] Appointment Type:URO Office Visit Appointment Date:02/18/2022 01:15:00 PM Scheduled Provider:Jevon Pantoja DO Location:[facility] Appointment Type:ONC Office Visit 15 (FT) Appointment Date:05/04/2022 10:40:00 AM Scheduled Provider:Patricia Le CNP Location:[facility] Appointment Type:BADH Follow Up Future Scheduled TestsCBC w/ Auto Diff 01/27/22CBC w/ Auto Diff 02/03/22CBC w/ Auto Diff 02/10/22CBC w/ Auto Diff 02/17/22CBC w/ Auto Diff 02/24/22CBC w/ Auto Diff 03/03/22CBC w/ Auto Diff 03/10/22CBC w/ Auto Diff 03/17/22Ferritin 02/19/22Ferritin 03/22/22Iron Level 02/19/22Iron Level 03/22/22Iron Percent Saturation 02/19/22Iron Percent Saturation 03/22/22 [facility] Evaluation + Plan note Future Appointments Appointment Date:02/18/2022 01:15:00 PM Scheduled Provider:Jevon Pantoja DO [facility] Type:ONC Office Visit 15 (FT) Appointment Date:05/04/2022 10:40:00 AM Scheduled Provider:Patricia Le CNP Location:[facility] Appointment Type:BAD Follow Up Appointment Date:07/27/2022 10:45:00 AM Scheduled Provider:Irena COOK MD Location:[facility] Appointment Type:URO Office Visit Future Scheduled TestsPSA Free & Total 05/02/22CBC w/ Auto Diff 01/27/22CBC w/ Auto Diff 02/03/22CBC w/ Auto Diff 02/10/22CBC w/ Auto Diff 02/17/22CBC w/ Auto Diff 02/24/22CBC w/ Auto Diff 03/03/22CBC w/ Auto Diff 03/10/22CBC w/ Auto Diff 03/17/22Ferritin 02/19/22Ferritin 03/22/22Iron Level 02/19/22Iron Level 03/22/22Iron Percent Saturation 02/19/22Iron Percent Saturation 03/22/22XR Abdomen 1 View 01/25/22 [facility] Evaluation + Plan note Future Appointments Appointment Date:02/18/2022 01:15:00 PM Scheduled Provider:Jevon Pantoja DO Location:[facility] Appointment Type:ONC Office Visit 15 (FT) Appointment Date:03/11/2022 10:00:00 AM Scheduled Provider:Patricia Le CNP Location:[facility] Appointment Type:[facility] Follow Up Appointment Date:05/04/2022 10:40:00 AM Scheduled Provider:Patricia Le CNP Location:[facility] Appointment Type:[facility] Follow Up Appointment Date:07/27/2022 10:45:00 AM Scheduled Provider:Irena COOK MD Location:[facility] Appointment Type:URO Office Visit Future Scheduled TestsPSA Free & Total 05/02/22CBC w/ Auto Diff 01/27/22CBC w/ Auto Diff 02/10/22CBC w/ Auto Diff 02/17/22CBC w/ Auto Diff 02/24/22CBC w/ Auto Diff 03/03/22CBC w/ Auto Diff 03/10/22CBC w/ Auto Diff 03/17/22Ferritin 02/19/22Ferritin 03/22/22Iron Level 02/19/22Iron Level 03/22/22Iron Percent Saturation 02/19/22Iron Percent Saturation 03/22/22XR Abdomen 1 View 01/25/22 [facility] Evaluation + Plan note Future Appointments Appointment Date:05/04/2022 10:40:00 AM Scheduled Provider:Patricia Le CNP Location:[facility] Appointment Type:[facility] Follow Up Appointment Date:05/25/2022 01:00:00 PM Scheduled Provider:Patricia Le CNP Location:[facility] Appointment Type:[facility] Follow Up Appointment Date:07/27/2022 10:45:00 AM Scheduled Provider:Irena COOK MD Location:[facility] Appointment Type:URO Office Visit Appointment Date:08/19/2022 01:30:00 PM Scheduled Provider:Jevon Pantoja DO Location:.ONCOLOGY Appointment Type:ONC Office Visit 15 (FT) Future Scheduled TestsPSA Free & Total 05/02/22CBC w/ Auto Diff 03/21/22CBC w/ Auto Diff 04/20/22CBC w/ Auto Diff 05/21/22CBC w/ Auto Diff 06/21/22CBC w/ Auto Diff 07/19/22CBC w/ Auto Diff 08/19/22Comprehensive Metabolic Panel 03/21/22Comprehensive Metabolic Panel 04/20/22Comprehensive Metabolic Panel 05/21/22Comprehensive Metabolic Panel 06/21/22Comprehensive Metabolic Panel 07/19/22Comprehensive Metabolic Panel 08/19/22Ferritin 03/21/22Ferritin 04/20/22Ferritin 05/21/22Ferritin 06/21/22Ferritin 07/19/22Ferritin 08/19/22Iron Level 03/21/22Iron Level 04/20/22Iron Level 1Iron Level 06/21/22Iron Level 07/19/22Iron Level 08/19/22Iron Percent Saturation 03/21/22Iron Percent Saturation 04/20/22Iron Percent Saturation 05/21/22Iron Percent Saturation 06/21/22Iron Percent Saturation 07/19/22Iron Percent Saturation 08/19/22XR Abdomen 1 View 01/25/22 [facility] Evaluation + Plan note Future Appointments Appointment Date:07/15/2022 02:00:00 PM Scheduled Provider:Florentino BOLAÑOS MD Location:[facility] Appointment Type:BADH Follow Up Appointment Date:07/27/2022 10:45:00 AM Scheduled Provider:Irena COOK MD Location:[facility] Appointment Type:URO Office Visit Appointment Date:08/19/2022 01:30:00 PM Scheduled Provider:Jevon Pantoja DO [facility]:ONC Office Visit 15 (FT) Future Scheduled TestsPSA Free & Total 05/02/22CBC w/ Auto Diff 04/20/22CBC w/ Auto Diff 05/21/22CBC w/ Auto Diff 06/21/22CBC w/ Auto Diff 07/19/22CBC w/ Auto Diff 08/19/22Comprehensive Metabolic Panel 04/20/22Comprehensive Metabolic Panel 05/21/22Comprehensive Metabolic Panel 06/21/22Comprehensive Metabolic Panel 07/19/22Comprehensive Metabolic Panel 08/19/22Ferritin 04/20/22Ferritin 1Ferritin 06/21/22Ferritin 07/19/22Ferritin 08/19/22Iron Level 04/20/22Iron Level 1Iron Level 2Iron Level 07/19/22Iron Level 08/19/22Iron Percent Saturation 04/20/22Iron Percent Saturation 05/21/22Iron Percent Saturation 06/21/22Iron Percent Saturation 07/19/22Iron Percent Saturation 08/19/22XR Abdomen 1 View 01/25/22 [facility] Evaluation + Plan note Future Appointments Appointment Date:07/15/2022 02:00:00 PM Scheduled Provider:Florentino BOLAÑOS MD Location:[facility] Appointment Type:BADH Follow Up Appointment Date:07/27/2022 10:45:00 AM Scheduled Provider:Irena COOK MD Location:[facility] Appointment Type:URO Office Visit Appointment Date:08/19/2022 01:30:00 PM Scheduled Provider:Jevon Pantoja DO [facility]:ONC Office Visit 15 (FT) Diagnostic Tests PendingSputum Culture 06/24/22 Future Scheduled TestsPSA Free & Total 05/02/22CBC w/ Auto Diff 04/20/22CBC w/ Auto Diff 05/21/22CBC w/ Auto Diff 06/21/22CBC w/ Auto Diff 07/19/22CBC w/ Auto Diff 08/19/22Comprehensive Metabolic Panel 04/20/22Comprehensive Metabolic Panel 05/21/22Comprehensive Metabolic Panel 06/21/22Comprehensive Metabolic Panel 07/19/22Comprehensive Metabolic Panel 08/19/22Ferritin 04/20/22Ferritin 1Ferritin 06/21/22Ferritin 07/19/22Ferritin 08/19/22Iron Level 04/20/22Iron Level 1Iron Level 2Iron Level 07/19/22Iron Level 08/19/22Iron Percent Saturation 04/20/22Iron Percent Saturation 05/21/22Iron Percent Saturation 06/21/22Iron Percent Saturation 07/19/22Iron Percent Saturation 08/19/22XR Abdomen 1 View 01/25/22 [facility] Evaluation + Plan note Future Appointments Appointment Date:07/21/2022 08:15:00 PM Scheduled Provider: [facility] Type:HOME HEALTH NURSE Sleep Study SPLIT (FT) Appointment Date:07/27/2022 10:45:00 AM Scheduled Provider:Irena COOK MD Location:[facility] Appointment Type:URO Office Visit Appointment Date:08/19/2022 01:30:00 PM Scheduled Provider:Jevon Pantoja DO [facility] Type:ONC Office Visit 15 (FT) Appointment Date:10/14/2022 12:15:00 PM Scheduled Provider:Florentino BOLAÑOS MD Location:[facility] Appointment Type:BADH Follow Up Future Scheduled TestsPSA Free & Total 05/02/22CBC w/ Auto Diff 04/20/22CBC w/ Auto Diff 05/21/22CBC w/ Auto Diff 06/21/22CBC w/ Auto Diff 07/19/22CBC w/ Auto Diff 08/19/22CBC w/ Indices 07/15/22Comprehensive Metabolic Panel 04/20/22Comprehensive Metabolic Panel 05/21/22Comprehensive Metabolic Panel 06/21/22Comprehensive Metabolic Panel 07/19/22Comprehensive Metabolic Panel 08/19/22Ferritin 04/20/22Ferritin 05/21/22Ferritin 06/21/22Ferritin 07/19/22Ferritin 08/19/22Iron Level 04/20/22Iron Level 1Iron Level 2Iron Level 3Iron Level 08/19/22Iron Percent Saturation 04/20/22Iron Percent Saturation 05/21/22Iron Percent Saturation 2/20/23Iron Percent Saturation 07/19/22Iron Percent Saturation 08/19/22XR Abdomen 1 View 01/25/22 [facility] [facility] Evaluation + Plan note Future Appointments Appointment Date:07/27/2022 10:45:00 AM Scheduled Provider:Irena COOK MD Location:[facility] Appointment Type:URO Office Visit Appointment Date:08/19/2022 01:30:00 PM Scheduled Provider:Jevon Pantoja DO [facility] Type:ONC Office Visit 15 (FT) Appointment Date:10/14/2022 12:15:00 PM Scheduled Provider:Florentino BOLAÑOS MD Location[facility] Appointment Type:BAD Follow Up Future Scheduled TestsPSA Free & Total 05/02/22CBC w/ Auto Diff 08/19/22CBC w/ Indices 07/20/22CBC w/ Indices 10/20/22CBC w/ Indices 01/20/23CBC w/ Indices 04/21/23Comprehensive Metabolic Panel 08/19/22Ferritin 08/19/22Iron Level 08/19/22Iron Percent Saturation 08/19/22XR Abdomen 1 View 01/25/22 [facility] Evaluation + Plan note Future Appointments Appointment Date:08/19/2022 01:30:00 PM Scheduled Provider:Jevon Pantoja DO [facility] Type:ONC Office Visit 15 (FT) Appointment Date:10/14/2022 12:15:00 PM Scheduled Provider:Florentino BOLAÑOS MD Location:[facility] Appointment Type:BAD Follow Up Appointment Date:02/02/2023 01:45:00 PM Scheduled Provider:Nghia ROBERSON MD Location:[facility] Appointment Type:URO Office Visit Diagnostic Tests PendingPSA Total 11/30/22 Future Scheduled TestsPSA Free & Total 05/02/22CBC w/ Auto Diff 08/19/22CBC w/ Indices 07/20/22CBC w/ Indices 10/20/22CBC w/ Indices 01/20/23CBC w/ Indices 04/21/23Comprehensive Metabolic Panel 08/19/22Ferritin 08/19/22Iron Level 08/19/22Iron Percent Saturation 08/19/22XR Abdomen 1 View 01/25/22 [facility] Evaluation + Plan note Future Appointments Appointment Date:10/14/2022 12:15:00 PM Scheduled Provider:Florentino BOLAÑOS MD Location:[facility] Appointment Type:BADH Follow Up Appointment Date:02/02/2023 01:45:00 PM Scheduled Provider:Nghia ROBERSON MD Location:[facility] Appointment Type:URO Office Visit Appointment Date:08/24/2023 01:45:00 PM Scheduled Provider:Jevon Pantoja DO [facility] Type:ONC Office Visit 15 (FT) Future Scheduled TestsPSA Free & Total 05/02/22CBC w/ Auto Diff 11/18/22CBC w/ Auto Diff 02/18/23CBC w/ Auto Diff 05/21/23CBC w/ Auto Diff 08/20/23CBC w/ Indices 07/20/22CBC w/ Indices 10/20/22CBC w/ Indices 01/20/23CBC w/ Indices 04/21/23Comprehensive Metabolic Panel 11/18/22Comprehensive Metabolic Panel 02/18/23Comprehensive Metabolic Panel 05/21/23Comprehensive Metabolic Panel 08/20/23Ferritin 11/18/22Ferritin 02/18/23Ferritin 05/21/23Ferritin 08/20/23Iron Level 11/18/22Iron Level 02/18/23Iron Level 05/21/23Iron Level 08/20/23Iron Percent Saturation 11/18/22Iron Percent Saturation 02/18/23Iron Percent Saturation 05/21/23Iron Percent Saturation 08/20/23Transferrin 11/18/22Transferrin 02/18/23Transferrin 05/21/23Transferrin 08/20/23XR Abdomen 1 View 01/25/22 [facility] Evaluation + Plan note Future Appointments Appointment Date:02/02/2023 01:45:00 PM Scheduled Provider:Nghia ROBERSON MD Location:[facility] Appointment Type:URO Office Visit Appointment Date:08/24/2023 01:45:00 PM Scheduled Provider:Jevon Pantoja DO [facility] Type:ONC Office Visit 15 (FT) Future Scheduled TestsPSA Free & Total 05/02/22CBC w/ Auto Diff 11/18/22CBC w/ Auto Diff 02/18/23CBC w/ Auto Diff 05/21/23CBC w/ Auto Diff 08/20/23CBC w/ Indices 07/20/22CBC w/ Indices 01/20/23CBC w/ Indices 04/21/23Comprehensive Metabolic Panel 11/18/22Comprehensive Metabolic Panel 02/18/23Comprehensive Metabolic Panel 05/21/23Comprehensive Metabolic Panel 08/20/23Ferritin 11/18/22Ferritin 02/18/23Ferritin 05/21/23Ferritin 08/20/23Iron Level 11/18/22Iron Level 02/18/23Iron Level 05/21/23Iron Level 08/20/23Iron Percent Saturation 11/18/22Iron Percent Saturation 02/18/23Iron Percent Saturation 05/21/23Iron Percent Saturation 08/20/23Transferrin 11/18/22Transferrin 02/18/23Transferrin 05/21/23Transferrin 08/20/23XR Abdomen 1 View 01/25/22 [facility] Evaluation + Plan note Future Appointments Appointment Date:02/02/2023 01:45:00 PM Scheduled Provider:Nghia ROBERSON MD Location:[facility] Appointment Type:URO Office Visit Appointment Date:08/24/2023 01:45:00 PM Scheduled Provider:Jevon Pantoja DO [facility] Type:ONC Office Visit 15 (FT) Future Scheduled TestsPSA Free & Total 05/02/22CBC w/ Auto Diff 02/18/23CBC w/ Auto Diff 05/21/23CBC w/ Auto Diff 08/20/23CBC w/ Indices 07/20/22CBC w/ Indices 01/20/23CBC w/ Indices 04/21/23Comprehensive Metabolic Panel 02/18/23Comprehensive Metabolic Panel 05/21/23Comprehensive Metabolic Panel 08/20/23Ferritin 02/18/23Ferritin 05/21/23Ferritin 08/20/23Iron Level 02/18/23Iron Level 05/21/23Iron Level 08/20/23Iron Percent Saturation 02/18/23Iron Percent Saturation 05/21/23Iron Percent Saturation 08/20/23Transferrin 02/18/23Transferrin 05/21/23Transferrin 08/20/23XR Abdomen 1 View 01/25/22 [facility] Evaluation + Plan note Future Appointments Appointment Date:02/02/2023 01:45:00 PM Scheduled Provider:Nghia ROBERSON MD Location:[facility] Appointment Type:URO Office Visit Appointment Date:08/24/2023 01:45:00 PM Scheduled Provider:Jevon Pantoja DO [facility] Appointment Type:ONC Office Visit 15 (FT) Future Scheduled TestsPSA Free & Total 05/02/22CBC w/ Auto Diff 02/18/23CBC w/ Auto Diff 05/21/23CBC w/ Auto Diff 08/20/23CBC w/ Indices 07/20/22CBC w/ Indices 01/20/23CBC w/ Indices 04/21/23Comprehensive Metabolic Panel 02/18/23Comprehensive Metabolic Panel 05/21/23Comprehensive Metabolic Panel 08/20/23Ferritin 02/18/23Ferritin 05/21/23Ferritin 08/20/23Iron Level 02/18/23Iron Level 05/21/23Iron Level 08/20/23Iron Percent Saturation 02/18/23Iron Percent Saturation 05/21/23Iron Percent Saturation 08/20/23Transferrin 02/18/23Transferrin 05/21/23Transferrin 08/20/23 [facility] Evaluation + Plan note Future Appointments Appointment Date:08/17/2023 01:00:00 PM Scheduled Provider:Nghia ROBERSON MD Location:[facility] Appointment Type:URO Office Visit Appointment Date:08/24/2023 01:45:00 PM Scheduled Provider:Jevon Pantoja DO [facility] Type:ONC Office Visit 15 (FT) Future Scheduled TestsPSA Free & Total 05/02/22PSA Free & Total 07/01/23CBC w/ Auto Diff 02/18/23CBC w/ Auto Diff 05/21/23CBC w/ Auto Diff 08/20/23CBC w/ Indices 07/20/22CBC w/ Indices 01/20/23CBC w/ Indices 04/21/23Comprehensive Metabolic Panel 02/18/23Comprehensive Metabolic Panel 05/21/23Comprehensive Metabolic Panel 08/20/23Ferritin 02/18/23Ferritin 05/21/23Ferritin 08/20/23Iron Level 02/18/23Iron Level 05/21/23Iron Level 08/20/23Iron Percent Saturation 02/18/23Iron Percent Saturation 05/21/23Iron Percent Saturation 08/20/23Transferrin 02/18/23Transferrin 05/21/23Transferrin 08/20/23 [facility] Evaluation + Plan note Future Appointments Appointment Date:06/24/2023 10:00:00 AM Scheduled Provider:Zuhair Beatty MD Location[place] Appointment Type:BADH Follow Up Appointment Date:08/17/2023 01:00:00 PM Scheduled Provider:Nghia ROBERSON MD Location:[facility] Appointment Type:URO Office Visit Appointment Date:08/24/2023 01:45:00 PM Scheduled Provider:Jevon Pantoja DO Location:.[facility] Appointment Type:ONC Office Visit 15 (FT) Future Scheduled TestsPSA Free & Total 07/01/23CBC w/ Auto Diff 02/18/23CBC w/ Auto Diff 08/20/23CBC w/ Indices 07/20/22CBC w/ Indices 01/20/23CBC w/ Indices 04/21/23Comprehensive Metabolic Panel 02/18/23Comprehensive Metabolic Panel 08/20/23Ferritin 02/18/23Ferritin 08/20/23Iron Level 02/18/23Iron Level 08/20/23Iron Percent Saturation 02/18/23Iron Percent Saturation 08/20/23Transferrin 02/18/23Transferrin 08/20/23 [facility] Evaluation + Plan note Future Appointments Appointment Date:08/24/2023 01:45:00 PM Scheduled Provider:Jevon Pantoja DO [facility] Type:ONC Office Visit 15 (FT) Appointment Date:10/26/2023 01:00:00 PM Scheduled Provider:Nghia ROBERSON MD Location:[facility] Appointment Type:URO Office Visit Future Scheduled TestsPSA Free & Total 07/01/23CBC w/ Auto Diff 02/18/23CBC w/ Auto Diff 08/20/23CBC w/ Indices 07/20/22CBC w/ Indices 01/20/23CBC w/ Indices 04/21/23Comprehensive Metabolic Panel 02/18/23Comprehensive Metabolic Panel 08/20/23Ferritin 02/18/23Ferritin 08/20/23Iron Level 02/18/23Iron Level 08/20/23Iron Percent Saturation 02/18/23Iron Percent Saturation 08/20/23Transferrin 02/18/23Transferrin 08/20/23 [facility] Evaluation + Plan note Future Appointments Appointment Date:08/24/2023 01:45:00 PM Scheduled Provider:Jevon Pantoja DO [facility] Type:ONC Office Visit 15 (FT) Appointment Date:10/26/2023 01:00:00 PM Scheduled Provider:Nghia ROBERSON MD Location:[facility] Appointment Type:URO Office Visit Appointment Date:08/22/2024 10:00:00 AM Scheduled Provider: [facility] Type:CT Chest (FT) Future Scheduled TestsPSA Free & Total 07/01/23CBC w/ Auto Diff 10CBC w/ Indices 01/20/23CBC w/ Indices 04/21/23Comprehensive Metabolic Panel 02/18/23Ferritin 02/18/23Iron Level 10Iron Percent Saturation 02/18/23Transferrin 02/18/23CT Chest w/o Contrast 08/22/24 [facility] Evaluation + Plan note Future Appointments Appointment Date:10/26/2023 01:00:00 PM Scheduled Provider:Nghia ROBERSON MD Location:[facility] Appointment Type:URO Office Visit Appointment Date:08/22/2024 10:00:00 AM Scheduled Provider: [facility] Type:CT Chest (FT) Appointment Date:08/23/2024 02:45:00 PM Scheduled Provider:Jevon Pantoja DO [facility] Type:ONC Office Visit 30 (FT) Future Scheduled TestsPSA Free & Total 3/05/25CBC w/ Auto Diff 02/23/24CBC w/ Auto Diff 08/23/24CBC w/ Auto Diff 02/18/23CBC w/ Indices 01/20/23CBC w/ Indices 04/21/23Comprehensive Metabolic Panel 02/23/24Comprehensive Metabolic Panel 08/23/24Comprehensive Metabolic Panel 02/18/23Ferritin 02/23/24Ferritin 08/23/24Ferritin 02/18/23Iron Level 02/23/24Iron Level 08/23/24Iron Level 02/18/23Iron Percent Saturation 02/23/24Iron Percent Saturation 08/23/24Iron Percent Saturation 02/18/23Transferrin 02/23/24Transferrin 08/23/24Transferrin 02/18/23CT Chest w/o Contrast 08/22/24 [facility] Evaluation + Plan note Future Appointments Appointment Date:10/26/2023 01:00:00 PM Scheduled Provider:Nghia ROBERSON MD Location:[facility] Appointment Type:URO Office Visit Appointment Date:08/23/2024 02:45:00 PM Scheduled Provider:Jevon Pantoja DO [facility] Type:ONC Office Visit 30 (FT) Future Scheduled TestsPSA Free & Total 3/05/25CBC w/ Auto Diff 02/23/24CBC w/ Auto Diff 08/23/24CBC w/ Auto Diff 02/18/23CBC w/ Indices 01/20/23CBC w/ Indices 04/21/23Comprehensive Metabolic Panel 02/23/24Comprehensive Metabolic Panel 08/23/24Comprehensive Metabolic Panel 02/18/23Ferritin 02/23/24Ferritin 08/23/24Ferritin 02/18/23Iron Level 02/23/24Iron Level 08/23/24Iron Level 02/18/23Iron Percent Saturation 02/23/24Iron Percent Saturation 08/23/24Iron Percent Saturation 02/18/23Transferrin 02/23/24Transferrin 08/23/24Transferrin 02/18/23 [facility] Evaluation + Plan note Future Appointments Appointment Date:11/01/2023 10:15:00 AM Scheduled Provider:Nghia ROBERSON MD Location:[facility] Appointment Type:URO Office Visit Appointment Date:08/23/2024 02:40:00 PM Scheduled Provider:Jevon Pantoja DO Location:[facility] Appointment Type:ONC Office Visit 30 (FT) Future Scheduled TestsCBC w/ Auto Diff 02/23/24CBC w/ Auto Diff 08/23/24CBC w/ Auto Diff 02/18/23CBC w/ Indices 01/20/23CBC w/ Indices 04/21/23Comprehensive Metabolic Panel 02/23/24Comprehensive Metabolic Panel 08/23/24Comprehensive Metabolic Panel 02/18/23Ferritin 02/23/24Ferritin 08/23/24Ferritin 02/18/23Iron Level 02/23/24Iron Level 08/23/24Iron Level 02/18/23Iron Percent Saturation 02/23/24Iron Percent Saturation 08/23/24Iron Percent Saturation 02/18/23Transferrin 02/23/24Transferrin 08/23/Transferrin 02/18/23 [facility] Evaluation + Plan note Future Appointments Appointment Date:05/22/2024 01:45:00 PM Scheduled Provider:Nghia ROBERSON MD Location:[facility] Appointment Type:URO Office Visit Appointment Date:08/23/2024 02:40:00 PM Scheduled Provider:Jevon Pantoja DO Location:[facility] Appointment Type:ONC Office Visit 30 (FT) Diagnostic Tests PendingPSA Free & Total 11/01/23 Future Scheduled TestsCBC w/ Auto Diff 02/23/24CBC w/ Auto Diff 08/23/24CBC w/ Auto Diff 02/18/23CBC w/ Indices 01/20/23CBC w/ Indices 04/21/23Comprehensive Metabolic Panel 02/23/24Comprehensive Metabolic Panel 08/23/24Comprehensive Metabolic Panel 02/18/23Ferritin 02/23/24Ferritin 08/23/24Ferritin 02/18/23Iron Level 02/23/24Iron Level 08/23/24Iron Level 02/18/23Iron Percent Saturation 02/23/24Iron Percent Saturation 08/23/24Iron Percent Saturation 02/18/23Transferrin 02/23/24Transferrin 08/23/24Transferrin 02/18/23 [facility] Evaluation + Plan note Future Appointments Appointment Date:05/22/2024 01:45:00 PM Scheduled Provider:Nghia ROBERSON MD Location:[facility] Appointment Type:URO Office Visit Appointment Date:08/23/2024 02:40:00 PM Scheduled Provider:Jevon Pantoja DO [facility] Type:ONC Office Visit 30 (FT) Future Scheduled TestsCBC w/ Auto Diff 02/23/24CBC w/ Auto Diff 08/23/24CBC w/ Auto Diff 02/18/23CBC w/ Indices 01/20/23CBC w/ Indices 04/21/23Comprehensive Metabolic Panel 02/23/24Comprehensive Metabolic Panel 08/23/24Comprehensive Metabolic Panel 02/18/23Ferritin 02/23/24Ferritin 08/23/24Ferritin 02/18/23Iron Level 02/23/24Iron Level 08/23/24Iron Level 02/18/23Iron Percent Saturation 02/23/24Iron Percent Saturation 08/23/24Iron Percent Saturation 02/18/23Transferrin 02/23/24Transferrin 08/23/24Transferrin 02/18/23 [facility] Evaluation note No assessment inform ation available [facility] Work Phone: Evaluation note Diagnosis HTN (hypertension), benign- Primary Essential hypertension, benign [facility] Diagnosis PAF (paroxysmal atrial fibrillation) (HCC) Atrial fibrillation [facility] Diagnosis PAF (paroxysmal atrial fibrillation) (HCC)- Primary Atrial fibrillation [facility] Diagnosis AF (paroxysmal atrial fibrillation) (HCC)- Primary Atrial fibrillation [facility]* Diagnosis Atrial fibrillation, unspecified type (HCC)- Primary [facility]* Diagnosis AF (paroxysmal atrial fibrillation) (HCC)- Primary Atrial fibrillation Gastrointestinal hemorrhage, unspecified gastrointestinal hemorrhage type [facility]* Diagnosis PAF (paroxysmal atrial fibrillation) (HCC)- Primary Atrial fibrillation [facility]* Diagnosis Pain of both shoulder joints Rotator cuff tear arthropathy of both shoulders Traumatic arthropathy, shoulder region Atrial fibrillation, unspecified type (HCC) [facility]* Diagnosis Gastrointestinal hemorrhage, unspecified gastrointestinal hemorrhage type- Primary HTN (hypertension), benign Essential hypertension, benign PAF (paroxysmal atrial fibrillation) (HCC) Atrial fibrillation Hyperlipidemia, unspecified hyperlipidemia type [facility]* Diagnosis IRB 21 W[employer] (WATCH RWE) PI: Dr. Marcos Bermduez- Primary [facility]* Diagnosis IRB [id number] [employer] (WATCH RWE) PI: Dr. Marcos Bermudez- Primary AF (paroxysmal atrial fibrillation) (HCC) Atrial fibrillation [facility]* Diagnosis Medication refill [Z76.0 (ICD-10-CM)]- Primary Issue of repeat prescriptions [facility]* Diagnosis PAF (paroxysmal atrial fibrillation) (HCC)- Primary Atrial fibrillation Gastrointestinal hemorrhage, unspecified gastrointestinal hemorrhage type [facility]* Diagnosis HTN (hypertension), benign Essential hypertension, benign [facility]* Diagnosis PAF (paroxysmal atrial fibrillation) (HCC)- Primary Atrial fibrillation [facility]* Diagnosis Hyperlipidemia, unspecified hyperlipidemia type- Primary Pain of both shoulder joints Rotator cuff tear arthropathy of both shoulders Traumatic arthropathy, shoulder region documented [facility]* Diagnosis Atypical chest pain Other chest pain ANDERSEN (dyspnea on exertion) Other dyspnea and respiratory abnormality documented [facility]* Diagnosis Onychomycosis- Primary Dermatophytosis of nail Pain in left toe(s) Pain in right toe(s) documented in this encounter [facility] note* Diagnosis Atypical chest pain- Primary Other chest pain ANDERSEN (dyspnea on exertion) Other dyspnea and respiratory abnormality Hyperlipidemia, unspecified hyperlipidemia type documented [facility]* Diagnosis Atypical chest pain- Primary Other chest pain documented [facility]* Diagnosis Onset Date Resolution Status Lumbar radiculopathy acute Lumbar stenosis with neurogenic claudication acute Spondylolisthesis, lumbar region acute Age-related osteoporosis wit hout current pathological fracture noneactive [facility] Work Phone: Evaluation note* Diagnosis Bilateral lumbar radiculopathy- Primary Spinal stenosis, lumbar region, without neurogenic claudication Anterolisthesis of lumbar spine documented [facility]* Diagnosis Persistent atrial fibrillation (HCC)- Primary Atrial fibrillation Presence of Watchman left atrial appendage closure device Obesity, Class I, BMI 30-34.9 Obesity, unspecified Chronic diastolic congestive heart failure (HCC) Chronic diastolic heart failure documented [facility]* Diagnosis Paroxysmal atrial fibrillation (HCC)- Primary Atrial fibrillation [facility]* Diagnosis 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athy- Primary Spinal stenosis, lumbar region, without neurogenic claudication 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athy Spinal stenosis, lumbar region, without neurogenic claudication documented [facility]* Diagnosis 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athy Spinal stenosis, lumbar region, without neurogenic claudication 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athy Spinal stenosis, lumbar region, without neurogenic claudication documented [facility]* Diagnosis Paroxysmal atrial fibrillation (HCC)- Primary Atrial fibrillation Chronic diastolic congestive heart failure (HCC) Chronic diastolic heart failure PAF (paroxysmal atrial fibrillation) (HCC) Atrial fibrillation Presence of Watchman left atrial appendage closure device 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athy Spinal stenosis, lumbar region, without neurogenic claudication documented [facility]* Diagnosis 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athy- Primary Spinal stenosis, lumbar region, without neurogenic claudication Back pain of lumbosacral region with sciatica Lumbar spondylosis Lumbosacral spondylosis without myelopathy 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athy Spinal stenosis, lumbar region, without neurogenic claudication 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athy Spinal stenosis, lumbar region, without neurogenic claudication [facility]* Diagnosis Visit for monitoring Tikosyn therapy- Primary Encounter for therapeutic drug monitoring Medication refill [Z76.0] Issue of repeat prescriptions [facility]* Diagnosis PAF (paroxysmal atrial fibrillation) (HCC) Atrial fibrillation [facility]* Diagnosis PAF (paroxysmal atrial fibrillation) (HCC) Atrial fibrillation HTN (hypertension), benign Essential hypertension, benign [facility]* Diagnosis IRB [id number] [employer] (WATCH RWE) PI: Dr. Marcos Bermudez- Primary documented in this encounter [place] note* Diagnosis HTN (hypertension), benign- Primary Essential hypertension, benign Chronic diastolic congestive heart failure (HCC) Chronic diastolic heart failure Paroxysmal atrial fibrillation (HCC) Atrial fibrillation documented in this encounter [place] note* Diagnosis Spinal stenosis, lumbar region, without neurogenic claudication- Primary Lumbar radiculopathy Thoracic or lumbosacral neuritis or radiculitis, unspecified documented in this encounter [place] note* Diagnosis 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athy- Primary Spinal stenosis, lumbar region, without neurogenic claudication Lower extremity numbness Disturbance of skin sensation Spinal stenosis, lumbar region, without neurogenic claudication Lumbar radiculopathy Thoracic or lumbosacral neuritis or radiculitis, unspecified [facility]* Diagnosis Atypical chest pain Other chest pain ANDERSEN (dyspnea on exertion) Other dyspnea and respiratory abnormality Hyperlipidemia, unspecified hyperlipidemia type documented [facility] this encounter [facility] Diagnosis Lumbar spondylosis- Primary Lumbosacral spondylosis without myelopathy Chronic bilateral low back pain without sciatica Degenerative lumbar spinal stenosis Spinal stenosis, lumbar region, without neurogenic claudication documented in this encounter [place] note* Diagnosis Lumbar spondylosis- Primary Lumbosacral spondylosis without myelopathy documented in this encounter [facility]* Diagnosis MICHELE (obstructive sleep apnea)- Primary Obstructive sleep apnea (adult) (pediatric) Right median nerve neuropathy Neck pain Cervicalgia Lumbar back pain Lumbago Depression, unspecified depression type (CMS/HCC) documented in this encounter [facility] Narrative No data available for this section [facility] Discharge instructions No data available for this section [facility] No data available for this section [facility] (narrative)* Outpatient Procedure (Routine) - Authorized Specialty Diagnoses / Procedures Referred By Contac t Referred To Contact [facility] Diagnoses Atrial fibrillation, unspecified type (HCC) Procedures ECG COMPLETE ECG ROUTINE ECG W/LEAST 12 LDS W/I&R Kaylah Kemp MD [address] [place] [address] [facility] [address] [place] [address] Referral ID Status Reason Start Date Expiration Date Visits Requested Visits Authorized [id number] Authorized Auto-Generat ed Referral 01/08/2022 01/08/[address] [facility] for referral (narrative)* Outpatient Procedure (Routine) - Pending Review Specialty Diagnoses / Procedures Referred By Contac t Referred To Contact [facility] Diagnoses PAF (paroxysmal atrial fibrillation) (HCC) Procedures ECHO TRANSESOPHAGEAL ECHO TRANSESOPHAG R-T 2D W/PRB IMG ACQUISJ I&R Kaylah Kemp MD [address] [facility] [place] [address] [facility] [place] [address] [address] Referral ID Status Reason Start Date Expiration Date Visits Requested Visits Authorized [id number] Pending Review Auto-Generat ed Referral 2 04/19/2023 1 1 * Outpatient Procedure (Routine) - Pending Review Specialty Diagnoses / Procedures Referred By Contac t Referred To Contact [facility] Diagnoses PAF (paroxysmal atrial fibrillation) (HCC) Procedures ECHO ECHO TTHRC R-T 2D W/WOM-MODE COMPL SPEC&COLR D Kaylah Kemp MD [address] [place] [address] [place] [address] [place] [address] Referral ID Status Reason Start Date Expiration Date Visits Requested Visits Authorized [id number] Pending Review Auto-Generat ed Referral 2 04/19/2023 1 1 * Outpatient Procedure (Routine) - Pending Review Specialty Diagnoses / Procedures Referred By Contac t Referred To Contact [facility] Diagnoses PAF (paroxysmal atrial fibrillation) (HCC) Procedures ECG COMPLETE ECG ROUTINE ECG W/LEAST 12 LDS W/I&R Kaylah Kemp MD [address] [place] [address] [place] [address] [place] [address] Referral ID Status Reason Start Date Expiration Date Visits Requested Visits Authorized [id number] Pending Review Auto-Generat ed Referral 2 04/19/[address] [facility] for referral (narrative)* Outpatient Procedure (Routine) - Pending Review Specialty Diagnoses / Procedures Referred By Contac t Referred To Contact [facility] Diagnoses Research study patient AF (paroxysmal atrial fibrillation) (HCC) Procedures ECHO TRANSESOPHAGEAL ECHO TRANSESOPHAG R-T 2D W/PRB IMG ACQUISJ I&R Adilene Gerber, HOTEL HOUSEKEEPER.SLUBBER FRAME CHANGER [address] [place] [address] [facility] [address] [place] [address] Referral ID Status Reason Start Date Expiration Date Visits Requested Visits Authorized [id number] Pending Review Auto-Generat ed Referral 06/10/2022 06/10/2023 1 1 * Outpatient Procedure (Routine) - Pending Review Specialty Diagnoses / Procedures Referred By Contac t Referred To Contact [facility] Diagnoses Research study patient AF (paroxysmal atrial fibrillation) (HCC) Procedures ECG COMPLETE ECG ROUTINE ECG W/LEAST 12 LDS W/I&R Adilene Gerber APRN.CNP [address] [facility] [place] [address] [place] [address] [place] [address] Referral ID Status Reason Start Date Expiration Date Visits Requested Visits Authorized [id number] Pending Review Auto-Generat ed Referral 06/10/2022 06/10/[address] [facility] for referral (narrative)* Outpatient Procedure (Routine) - Pending Review Specialty Diagnoses / Procedures Referred By Contac t Referred To Contact [facility] Diagnoses PAF (paroxysmal atrial fibrillation) (HCC) Procedures ECHO TRANSESOPHAGEAL ECHO TRANSESOPHAG R-T 2D W/PRB IMG ACQUISSidra I&R Kaylah Kemp MD [address] [place] [address] [address] [place] [id number] Referral ID Status Reason Start Date Expiration Date Visits Requested Visits Authorized [id number] Pending Review Auto-Generat ed Referral 09/14/2022 09/14/[address] [facility] for referral (narrative)* Diagnostic Procedure Only (Routine) - Pending Review Specialty Diagnoses / Procedures Referred By Contac t Referred To Contact [facility] Diagnoses Atypical chest pain ANDERSEN (dyspnea on exertion) Hyperlipidemia, unspecified hyperlipidemia type Procedures NM CARDIAC PERF STRESS/PHARM MYOCARDIAL SPECT MULTIPLE STUDIES Jacqueline Tamayo APRN.CNP [address] [place] [address] [facility] [address] [place] [address] Referral ID Status Reason Start Date Expiration Date Visits Requested Visits Authorized [id number] Pending Review Auto-Generat ed Referral 06/15/2023 07/14/2024 1 1 [facility] for referral (narrative)* Diagnostic Procedure Only (Routine) - Pending Review Specialty Diagnoses / Procedures Referred By Contac t Referred To Contact [facility] Diagnoses Atypical chest pain Procedures NM CARDIAC PERF STRESS/PHARM MYOCARDIAL [place] [address] [place] [address] [facility] [address] [place], [place] [id number] Referral ID Status Reason Start Date Expiration Date Visits Requested Visits Authorized [id number] Pending Review Auto-Generat ed Referral 06/15/2023 07/14/2024 1 1 [facility] for referral (narrative)* Diagnostic Procedure Only (Routine) - Closed Specialty Diagnoses / Procedures Referred By Contac t Referred To Contact [facility]R IMAGING Diagnoses 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athy Procedures XR LUMBAR MOTION 4V AP/LAT/ FLEX/EXT RADEX SPINE LUMBOSACRAL MINIMUM 4 VIEWS Alpa Ram DO [address] [place] [address] Xr Imaging [id number] Referral ID Status Reason Start Date Expiration Date V isits Requested Visits Authorized [id number] Closed Auto-Generate d Referral 08/29/2023 09/27/[address] [facility] for referral (narrative)* Outpatient Procedure (Routine) - Pending Review Specialty Diagnoses / Procedures Referred By Nicky t Referred To Contact [facility] Diagnoses Paroxysmal atrial fibrillation (HCC) Chronic diastolic congestive heart failure (HCC) PAF (paroxysmal atrial fibrillation) (HCC) Presence of Watchman left atrial appendage closure device Procedures ECG COMPLETE ECG ROUTINE ECG W/LEAST 12 LDS W/I&R Kaylah Kemp MD [address] [place] [address] [facility] [address] [address] Referral ID Status Reason Start Date Expiration Date Visits Requested Visits Authorized [id number] Pending Review Auto-Generat ed Referral 09/01/2023 08/31/[address] [facility] for referral (narrative)* Diagnostic Procedure Only (Routine) - Closed Specialty Diagnoses / Procedures Referred By Nicky youssef Referred To Contact XR IMAGING Diagnoses 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athy Procedures XR LUMBAR MOTION 4V AP/LAT/ FLEX/EXT RADEX SPINE LUMBOSACRAL MINIMUM 4 VIEWS Alpa Ram DO [address] [place] [address] [place] [address] Referral ID Status Reason Start Date Expiration Date V isits Requested Visits Authorized [id number] Closed Auto-Generate d Referral 08/29/2023 09/27/[address] [facility] for referral (narrative)* Diagnostic Procedure Only (Routine) - Closed Specialty Diagnoses / Procedures Referred By Nicky t Referred To Contact [facility] Diagnoses Atypical chest pain ANDERSEN (dyspnea on exertion) Hyperlipidemia, unspecified hyperlipidemia type Procedures NM CARDIAC PERF STRESS/PHARM MYOCARDIAL SPECT MULTIPLE STUDIES Jacqueline Tamayo APRN.SLUBBER FRAME CHANGER [address] [facility] [place] [address] [facility] [address] [place] [address] Referral ID Status Reason Start Date Expiration Date V isits Requested Visits Authorized [id number] Closed Auto-Generate d Referral 06/16/2023 06/16/[address] [facility] for visit Narrative* Diagnostic Procedure Only (Routine) - Authorized Specialty Diagnoses / Procedures Referred By Contac t Referred To Contact [facility] Diagnoses Atypical chest pain ANDERSEN (dyspnea on exertion) Procedures NM CARDIAC PERF STRESS/PHARM MYOCARDIAL [place] [address] [facility] [place] [address] [facility] [address] [place] [address] Referral ID Status Reason Start Date Expiration Date Visits Requested Visits Authorized [id number] Authorized Auto-Generat ed Referral 3 05/25/[address] [facility] for visit Narrative* Diagnostic Procedure Only (Routine) - Closed Specialty Diagnoses / Procedures Referred By [facility] Referred To Contact XR IMAGING Diagnoses 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athy Procedures XR LUMBAR MOTION 4V AP/LAT/ FLEX/EXT RADEX SPINE LUMBOSACRAL MINIMUM 4 VIEWS Alpa Ram DO [address] [place] [address] Xr Imaging [place] [address] Referral ID Status Reason Start Date Expiration Date V isits Requested Visits Authorized [id number] Closed Auto-Generate d Referral 08/29/2023 09/27/[address] [facility] for visit Narrative* Outpatient Procedure (Routine) - Closed Specialty Diagnoses / Procedures Referred By [facility] Referred To Contact [facility] Diagnoses PAF (paroxysmal atrial fibrillation) (HCC) Procedures ECHO TRANSESOPHAGEAL ECHO TRANSESOPHAG R-T 2D W/PRB IMG [place] I&R Kaylah Kemp MD [address] [place] [address] [facility] [place] [address] [place] [address] Referral ID Status Reason Start Date Expiration Date V isits Requested Visits Authorized [id number] Closed Auto-Generate d Referral 10/25/2023 01/18/2024 1 1 [facility]* Diagnostic Procedure Only (Routine) - Closed Specialty Diagnoses / Procedures Referred By Contac t Referred To Contact [facility] Diagnoses Atypical chest pain ANDERSEN (dyspnea on exertion) Hyperlipidemia, unspecified hyperlipidemia type Procedures NM CARDIAC PERF STRESS/PHARM MYOCARDIAL SPECT MULTIPLE STUDIES Jacqueline Tamayo APRN.SLUBBER FRAME CHANGER [address] [facility] [place] [address] [facility] [address] [place] [address] Referral ID Status Reason Start Date Expiration Date V isits Requested Visits Authorized [id number] Closed Auto-Generate d Referral 06/16/2023 06/16/2023 2 2 [facility] Summary Purpose Family History Relationship Condition Age at Onset Recorded Date/T corazon Not Specified Malignant neoplasm of colon Unknown Tuberculosis Unknown brother Malignant neoplasm of colon Unknown sister Malignant neoplasm of colon Unknown Asthma Unknown father Arthritis Unknown History of heart valve replacement Unknow n Advance Directives Documents on File Type Date Recorded 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 Advance Directive(s) 07/03/2021 1:21 PM Advance Directive(s) 08/28/2020 2:19 PM Advance Directive(s) 02/26/2020 1:31 PM Advance Directive(s) 07/28/2018 11:13 AM Advance Directive(s) 07/25/2018 1:45 PM Advance Directive(s) 07/12/2018 1:08 PM Advance Directive Response Recorded Date/ Time Advance Directives Yes June 1:50pm Health Concerns Infection Onset Date Last Indicated Resolved Time COVID-19 Rule-Out 05/18/2022 05/18/2022 05/18/2022 3:56 PM EST Chief Complaint and Reason for Visit Chief Complaint REFRRAL LUMBAGO W/SC IATICA M48.062 Reason for Visit Lumbar radiculopathy Lumbar stenosis with neurogenic claudication Spondylolisthesis, lumbar region Age-related osteoporosis without current pathological fracture Reason for Referral Specialty Diagnoses / Procedures Referred By Contac t Referred To Contact [facility] Procedures CARDIOVASCULAR MEDICINE OP FOLLOW UP APPT ORDER Kaylah Kemp MD [address] [place] [address] [facility] [place] [address] [place] [address] Referral ID Status Reason Start Date Expiration Date Visits Requested Visits Authorized [id number] Ref Not Required PCP Requested Referral 08/18/2024 11/16/2024 1 1 Specialty Diagnoses / Procedures Referred By Contac t Referred To Contact [facility] Diagnoses Bilateral lumbar radiculopathy Spinal stenosis, lumbar region, without neurogenic claudication Anterolisthesis of lumbar spine Procedures CONSULT TO PHYSICAL THERAPY PHYSICAL THERAPY EVALUATION HIGH COMPLEX 45 MINS Alpa Ram DO [address] [place] [address] [facility] [address] [address] Referral ID Status Reason Start Date Expiration Date Visits Requested Visits Authorized [id number] Pending Review Auto-Generat ed Referral 06/22/2023 06/21/2024 1 1 Additional Source Comments (unrecognized sect ion and content) No Status Records FoundNo Status Records FoundNo Status Records FoundNo Status Records FoundNo Status Records FoundNo Status Records FoundNo Status Records FoundNo Status Records FoundNo Status Records FoundNo Status Records FoundNo Status Records Found INFORMATION SOURCE (unrecogn ized section and content) DATE CREATED AUTHOR 10/18/2017 [facility] DATE CREATED AUTHOR AUTHOR'S ORGANIZ ATION 06/05/2021 [facility] DATE CREATED AUTHOR AUTHOR'S ORGANIZ ATION 05/13/2022 [facility] DATE CREATED AUTHOR AUTHOR'S ORGANIZ ATION 06/17/2022 [facility] DATE CREATED AUTHOR AUTHOR'S ORGANIZ ATION 04/28/2023 [facility] DATE CREATED AUTHOR AUTHOR'S ORGANIZ ATION 06/21/2023 [facility] DATE CREATED AUTHOR AUTHOR'S ORGANIZ ATION 11/02/2023 [facility] DATE CREATED AUTHOR AUTHOR'S ORGANIZ ATION 01/18/2024 [facility] DATE CREATED AUTHOR AUTHOR'S ORGANIZ ATION 01/22/2024 [facility] DATE CREATED AUTHOR AUTHOR'S ORGANIZ ATION 02/01/2024 [facility] DATE CREATED AUTHOR AUTHOR'S ORGANIZ ATION 02/05/2024 [facility] Source Comments (unrecognize d section and content) In the event this informatio n is protected by the Federal Confidentiality of Alcohol and Drug Abuse Patient Records regulations: The Federal rules restrict any use of the information to criminally investigate or prosecute any alcohol or drug abuse patient.[facility] HospitalIn the event this information is protected by the Federal Confidentiality of Alcohol and Drug Abuse Patient Records regulations: The Federal rules restrict any use of the information to criminally investigate or prosecute any alcohol or drug abuse patient.[facility] HospitalIn the event this information is protected by the Federal Confidentiality of Alcohol and Drug Abuse Patient Records regulations: The Federal rules restrict any use of the information to criminally investigate or prosecute any alcohol or drug abuse patient.[facility] HospitalIn the event this information is protected by the Federal Confidentiality of Alcohol and Drug Abuse Patient Records regulations: The Federal rules restrict any use of the information to criminally investigate or prosecute any alcohol or drug abuse patient.[facility] HospitalIn the event this information is protected by the Federal Confidentiality of Alcohol and Drug Abuse Patient Records regulations: The Federal rules restrict any use of the information to criminally investigate or prosecute any alcohol or drug abuse patient.[facility] HospitalIn the event this information is protected by the Federal Confidentiality of Alcohol and Drug Abuse Patient Records regulations: The Federal rules restrict any use of the information to criminally investigate or prosecute any alcohol or drug abuse patient.[facility] HospitalIn the event this information is protected by the Federal Confidentiality of Alcohol and Drug Abuse Patient Records regulations: The Federal rules restrict any use of the information to criminally investigate or prosecute any alcohol or drug abuse patient.[facility] HospitalIn the event this information is protected by the Federal Confidentiality of Alcohol and Drug Abuse Patient Records regulations: The Federal rules restrict any use of the information to criminally investigate or prosecute any alcohol or drug abuse patient.[facility] HospitalIn the event this information is protected by the Federal Confidentiality of Alcohol and Drug Abuse Patient Records regulations: The Federal rules restrict any use of the information to criminally investigate or prosecute any alcohol or drug abuse patient.[facility] HospitalIn the event this information is protected by the Federal Confidentiality of Alcohol and Drug Abuse Patient Records regulations: The Federal rules restrict any use of the information to criminally investigate or prosecute any alcohol or drug abuse patient.[facility] HospitalIn the event this information is protected by the Federal Confidentiality of Alcohol and Drug Abuse Patient Records regulations: The Federal rules restrict any use of the information to criminally investigate or prosecute any alcohol or drug abuse patient.[facility] HospitalIn the event this information is protected by the Federal Confidentiality of Alcohol and Drug Abuse Patient Records regulations: The Federal rules restrict any use of the information to criminally investigate or prosecute any alcohol or drug abuse patient.[facility] HospitalIn the event this information is protected by the Federal Confidentiality of Alcohol and Drug Abuse Patient Records regulations: The Federal rules restrict any use of the information to criminally investigate or prosecute any alcohol or drug abuse patient.[facility] HospitalIn the event this information is protected by the Federal Confidentiality of Alcohol and Drug Abuse Patient Records regulations: The Federal rules restrict any use of the information to criminally investigate or prosecute any alcohol or drug abuse patient.[facility] HospitalIn the event this information is protected by the Federal Confidentiality of Alcohol and Drug Abuse Patient Records regulations: The Federal rules restrict any use of the information to criminally investigate or prosecute any alcohol or drug abuse patient.[facility] HospitalIn the event this information is protected by the Federal Confidentiality of Alcohol and Drug Abuse Patient Records regulations: The Federal rules restrict any use of the information to criminally investigate or prosecute any alcohol or drug abuse patient.[facility] HospitalIn the event this information is protected by the Federal Confidentiality of Alcohol and Drug Abuse Patient Records regulations: The Federal rules restrict any use of the information to criminally investigate or prosecute any alcohol or drug abuse patient.[facility] HospitalIn the event this information is protected by the Federal Confidentiality of Alcohol and Drug Abuse Patient Records regulations: The Federal rules restrict any use of the information to criminally investigate or prosecute any alcohol or drug abuse patient.[facility] HospitalIn the event this information is protected by the Federal Confidentiality of Alcohol and Drug Abuse Patient Records regulations: The Federal rules restrict any use of the information to criminally investigate or prosecute any alcohol or drug abuse patient.[facility] HospitalIn the event this information is protected by the Federal Confidentiality of Alcohol and Drug Abuse Patient Records regulations: The Federal rules restrict any use of the information to criminally investigate or prosecute any alcohol or drug abuse patient.[facility] HospitalIn the event this information is protected by the Federal Confidentiality of Alcohol and Drug Abuse Patient Records regulations: The Federal rules restrict any use of the information to criminally investigate or prosecute any alcohol or drug abuse patient.[facility] HospitalIn the event this information is protected by the Federal Confidentiality of Alcohol and Drug Abuse Patient Records regulations: The Federal rules restrict any use of the information to criminally investigate or prosecute any alcohol or drug abuse patient.[facility] HospitalIn the event this information is protected by the Federal Confidentiality of Alcohol and Drug Abuse Patient Records regulations: The Federal rules restrict any use of the information to criminally investigate or prosecute any alcohol or drug abuse patient.[facility] HospitalIn the event this information is protected by the Federal Confidentiality of Alcohol and Drug Abuse Patient Records regulations: The Federal rules restrict any use of the information to criminally investigate or prosecute any alcohol or drug abuse patient.[facility] HospitalIn the event this information is protected by the Federal Confidentiality of Alcohol and Drug Abuse Patient Records regulations: The Federal rules restrict any use of the information to criminally investigate or prosecute any alcohol or drug abuse patient.[facility] HospitalIn the event this information is protected by the Federal Confidentiality of Alcohol and Drug Abuse Patient Records regulations: The Federal rules restrict any use of the information to criminally investigate or prosecute any alcohol or drug abuse patient.[facility] HospitalIn the event this information is protected by the Federal Confidentiality of Alcohol and Drug Abuse Patient Records regulations: The Federal rules restrict any use of the information to criminally investigate or prosecute any alcohol or drug abuse patient.[facility] HospitalIn the event this information is protected by the Federal Confidentiality of Alcohol and Drug Abuse Patient Records regulations: The Federal rules restrict any use of the information to criminally investigate or prosecute any alcohol or drug abuse patient.[facility] HospitalIn the event this information is protected by the Federal Confidentiality of Alcohol and Drug Abuse Patient Records regulations: The Federal rules restrict any use of the information to criminally investigate or prosecute any alcohol or drug abuse patient.[facility] HospitalIn the event this information is protected by the Federal Confidentiality of Alcohol and Drug Abuse Patient Records regulations: The Federal rules restrict any use of the information to criminally investigate or prosecute any alcohol or drug abuse patient.[facility] HospitalIn the event this information is protected by the Federal Confidentiality of Alcohol and Drug Abuse Patient Records regulations: The Federal rules restrict any use of the information to criminally investigate or prosecute any alcohol or drug abuse patient.[facility] HospitalIn the event this information is protected by the Federal Confidentiality of Alcohol and Drug Abuse Patient Records regulations: The Federal rules restrict any use of the information to criminally investigate or prosecute any alcohol or drug abuse patient.[facility] HospitalIn the event this information is protected by the Federal Confidentiality of Alcohol and Drug Abuse Patient Records regulations: The Federal rules restrict any use of the information to criminally investigate or prosecute any alcohol or drug abuse patient.[facility] HospitalIn the event this information is protected by the Federal Confidentiality of Alcohol and Drug Abuse Patient Records regulations: The Federal rules restrict any use of the information to criminally investigate or prosecute any alcohol or drug abuse patient.[facility] HospitalIn the event this information is protected by the Federal Confidentiality of Alcohol and Drug Abuse Patient Records regulations: The Federal rules restrict any use of the information to criminally investigate or prosecute any alcohol or drug abuse patient.[facility] HospitalIn the event this information is protected by the Federal Confidentiality of Alcohol and Drug Abuse Patient Records regulations: The Federal rules restrict any use of the information to criminally investigate or prosecute any alcohol or drug abuse patient.[facility] HospitalIn the event this information is protected by the Federal Confidentiality of Alcohol and Drug Abuse Patient Records regulations: The Federal rules restrict any use of the information to criminally investigate or prosecute any alcohol or drug abuse patient.[facility] HospitalIn the event this information is protected by the Federal Confidentiality of Alcohol and Drug Abuse Patient Records regulations: The Federal rules restrict any use of the information to criminally investigate or prosecute any alcohol or drug abuse patient.[facility] HospitalIn the event this information is protected by the Federal Confidentiality of Alcohol and Drug Abuse Patient Records regulations: The Federal rules restrict any use of the information to criminally investigate or prosecute any alcohol or drug abuse patient.[facility] HospitalIn the event this information is protected by the Federal Confidentiality of Alcohol and Drug Abuse Patient Records regulations: The Federal rules restrict any use of the information to criminally investigate or prosecute any alcohol or drug abuse patient.[facility] HospitalIn the event this information is protected by the Federal Confidentiality of Alcohol and Drug Abuse Patient Records regulations: The Federal rules restrict any use of the information to criminally investigate or prosecute any alcohol or drug abuse patient.[facility] HospitalIn the event this information is protected by the Federal Confidentiality of Alcohol and Drug Abuse Patient Records regulations: The Federal rules restrict any use of the information to criminally investigate or prosecute any alcohol or drug abuse patient.[facility] HospitalIn the event this information is protected by the Federal Confidentiality of Alcohol and Drug Abuse Patient Records regulations: The Federal rules restrict any use of the information to criminally investigate or prosecute any alcohol or drug abuse patient.[facility] HospitalIn the event this information is protected by the Federal Confidentiality of Alcohol and Drug Abuse Patient Records regulations: The Federal rules restrict any use of the information to criminally investigate or prosecute any alcohol or drug abuse patient.[facility] HospitalIn the event this information is protected by the Federal Confidentiality of Alcohol and Drug Abuse Patient Records regulations: The Federal rules restrict any use of the information to criminally investigate or prosecute any alcohol or drug abuse patient.[facility] HospitalIn the event this information is protected by the Federal Confidentiality of Alcohol and Drug Abuse Patient Records regulations: The Federal rules restrict any use of the information to criminally investigate or prosecute any alcohol or drug abuse patient.[facility] HospitalIn the event this information is protected by the Federal Confidentiality of Alcohol and Drug Abuse Patient Records regulations: The Federal rules restrict any use of the information to criminally investigate or prosecute any alcohol or drug abuse patient.[facility] HospitalIn the event this information is protected by the Federal Confidentiality of Alcohol and Drug Abuse Patient Records regulations: The Federal rules restrict any use of the information to criminally investigate or prosecute any alcohol or drug abuse patient.[facility] HospitalIn the event this information is protected by the Federal Confidentiality of Alcohol and Drug Abuse Patient Records regulations: The Federal rules restrict any use of the information to criminally investigate or prosecute any alcohol or drug abuse patient.[facility] HospitalIn the event this information is protected by the Federal Confidentiality of Alcohol and Drug Abuse Patient Records regulations: The Federal rules restrict any use of the information to criminally investigate or prosecute any alcohol or drug abuse patient.[facility] HospitalIn the event this information is protected by the Federal Confidentiality of Alcohol and Drug Abuse Patient Records regulations: The Federal rules restrict any use of the information to criminally investigate or prosecute any alcohol or drug abuse patient.[facility] HospitalIn the event this information is protected by the Federal Confidentiality of Alcohol and Drug Abuse Patient Records regulations: The Federal rules restrict any use of the information to criminally investigate or prosecute any alcohol or drug abuse patient.[facility] HospitalIn the event this information is protected by the Federal Confidentiality of Alcohol and Drug Abuse Patient Records regulations: The Federal rules restrict any use of the information to criminally investigate or prosecute any alcohol or drug abuse patient.[facility] HospitalIn the event this information is protected by the Federal Confidentiality of Alcohol and Drug Abuse Patient Records regulations: The Federal rules restrict any use of the information to criminally investigate or prosecute any alcohol or drug abuse patient.[facility] HospitalIn the event this information is protected by the Federal Confidentiality of Alcohol and Drug Abuse Patient Records regulations: The Federal rules restrict any use of the information to criminally investigate or prosecute any alcohol or drug abuse patient.[facility] HospitalIn the event this information is protected by the Federal Confidentiality of Alcohol and Drug Abuse Patient Records regulations: The Federal rules restrict any use of the information to criminally investigate or prosecute any alcohol or drug abuse patient.[facility] HospitalIn the event this information is protected by the Federal Confidentiality of Alcohol and Drug Abuse Patient Records regulations: The Federal rules restrict any use of the information to criminally investigate or prosecute any alcohol or drug abuse patient.[facility] HospitalIn the event this information is protected by the Federal Confidentiality of Alcohol and Drug Abuse Patient Records regulations: The Federal rules restrict any use of the information to criminally investigate or prosecute any alcohol or drug abuse patient.[facility] HospitalIn the event this information is protected by the Federal Confidentiality of Alcohol and Drug Abuse Patient Records regulations: The Federal rules restrict any use of the information to criminally investigate or prosecute any alcohol or drug abuse patient.[facility] Reason for Visit (unrecogniz ed section and content) Reason Comments Holding of Eliquis for EGD Reason Onset Date Comments Refill Request 10/15/2021 Atenolol Reason Onset Date Comments Refill Request 10/20/2021 Reason Comments Received Outside Medical Records Reason Comments Hospital Follow Up Reason Comments Established Patient *no device*6 month f ollow up w/EKGS/P Cardioversionr/s from 01/08 Reason Comments Schedule Surgery Watchman implant Reason Comments Patient Update Reason Onset Date Comments Refill Request 05/04/2022 Reason Onset Date Comments Refill Request 05/07/2022 Reason Comments Patient Education Watchman Reason Comments Preprocedural evaluation Reason Comments Informed Consent IRB [id number] WATCHAMA N FLX Real World Evidence (WATCH RWE) PI: Dr. Marcos Bermudez Specialty Diagnoses / Procedures Referred By Contac t Referred To Contact Diagnoses Atrial fibrillation, unspecified type (HCC) Procedures PERQ CLSR TCAT L ATR APNDGE W/ENDOCARDIAL IMPLNT PERC TRANSCATH CLOSURE LEFT ATRIAL APPENDAGE W/IMPLANT,INCLUSIVE OF FLUORO,TRANSEPTAL PUNCTURE,CATH PLACEMENT(S) ANGIO,WHEN PERFORMED,[facility] [address] [place] [address] Referral ID Status Reason Start Date Expiration Date Visits Re quested Visits Authorized [id number] 1 1 Reason Comments Patient Question Reason Comments Refill Request Tikosyn Reason Onset Date Comments Refill Request 09/01/2022 Reason Onset Date Comments Refill Request 09/21/2022 Reason Onset Date Comments Refill Request 10/20/2022 Reason Onset Date Comments Refill Request 11/09/2022 Reason Onset Date Comments Refill Request 11/13/2022 Reason Onset Date Comments Refill Request 06/03/2023 Orders 06/03/2023 Reason Comments Radiology NM Specialty Diagnoses / Procedures Referred By Contac t Referred To Contact MOLECULAR & FUNCTIONAL IMAGING Diagnoses Atypical chest pain ANDERSEN (dyspnea on exertion) Procedures NM CARDIAC PERF STRESS/PHARM MYOCARDIAL [place] [address] [facility] [place] [address] Molecular & Functional Imaging [address] [place] [address] Referral ID Status Reason Start Date Expiration Date Visits Requested Visits Authorized [id number] Authorized Auto-Generat ed Referral 3 05/25/2024 1 1 Reason Comments Toenail Care Non DM nail care Reason Comments Back Pain MRI Report Specialty Diagnoses / Procedures Referred By Contac t Referred To Contact Spine Health / SPINE Diagnoses back pain pt to bring disc Procedures [facility], [address] [place] [address] Referral ID Status Reason Start Date Expiration Date V isits Requested Visits Authorized [id number] Outside PCP 06/22/2023 08/21/2023 1 1 Reason Comments Cardiology Follow Up Reason Comments Established Patient Follow up - check up Reason Comments Radiology XR Reason Comments Prior Authorization Medication Reason Comments Follow Up Follow Up: Lumbar Ra diculopathy Reason Comments Preparations For Procedures Pre injectio n instructions Reason Comments Post injection f/u call Reason Onset Date Comments Refill Request 10/03/2023 Reason Onset Date Comments Refill Request 10/19/2023 Reason Onset Date Comments Refill Request 11/09/2023 Reason Comments Recheck 2-4 wk f/u Reason Comments Preparations For Procedures Pre-injectio n instructions for 12/20/2023 Specialty Diagnoses / Procedures Referred By Nicky youssef Referred To Contact MOLECULAR & FUNCTIONAL IMAGING Diagnoses Atypical chest pain ANDERSEN (dyspnea on exertion) Hyperlipidemia, unspecified hyperlipidemia type Procedures NM CARDIAC PERF STRESS/PHARM MYOCARDIAL SPECT MULTIPLE STUDIES Jacqueline Tamayo APRN.[employer] [address] [facility] [place] [address] Molecular & Functional Imaging [address] [place] [address] Referral ID Status Reason Start Date Expiration Date V isits Requested Visits Authorized [id number] Closed Auto-Generate d Referral 06/16/2023 06/16/2023 2 2 Reason Comments Low Back Pain Reason Comments Back Pain Neck Pain Care Teams (unrecognized sec tion and content) Family Resource Coordinator Relationship Specialty Start Date End Date Scarlett Gaviria [address] [facility] [place] [phone] PCP - General Family Practice 10/15/15 Nolberto Thomas [address] [place] [address] Primary Staff Physician Cardiology 07/18/18 Family Resource Coordinator Relationship Specialty Start Date End Date Scarlett Gaviria [address] [facility] [place] [address] PCP - General Family Practice 10/15/15 Nolberto Thomas [address] [place] [address] Primary Staff Physician Cardiology 07/18/18 Family Resource Coordinator Relationship Specialty Start Date End Date Scarlett Gaviria [address] [place] [phone] PCP - General Family Practice 10/15/15 [place], Nolberto Vagesh [address] [place] [address] Primary Staff Physician Cardiology 07/18/18 Family Resource Coordinator Relationship Specialty Start Date End Date Scarlett Gavir[place] [phone] PCP - General Family Practice 10/15/15 Nolberto Thomas Vagesh [address] [place] [address] Primary Staff Physician Cardiology 07/18/18 Family Resource Coordinator Relationship Specialty Start Date End Date Scarlett Gaviria [address] [place] [phone] PCP - General Family Practice 10/15/15 Nolberto Thomas Vagesh [address] [place] [address] Primary Staff Physician Cardiology 07/18/18 Family Resource Coordinator Relationship Specialty Start Date End Date Scarlett Gaviria [address] [place] [phone] PCP - General Family Practice 10/15/15 Nolberto Thomasesh [address] [place] [address] Primary Staff Physician Cardiology 07/18/18 Family Resource Coordinator Relationship Specialty Start Date End Date Scarlett Gaviria [address] [place] [phone] PCP - General Family Medicine 10/15/15 Martha, Nolberto Vagesh [address] [place] [address] Primary Staff Physician Cardiology 07/18/18 Family Resource Coordinator Relationship Specialty Start Date End Date Scarlett [place]avir[place] [phone] PCP - General Family Medicine 10/15/15 [facility], Nolberto Vagesh [address] [place] [address] Primary Staff Physician Cardiology 07/18/18 Family Resource Coordinator Relationship Specialty Start Date End Date Scarlett Gaviria [address] [place] [phone] PCP - General Family Medicine 10/15/15 [facility], Nolberto Vagesh [address] [place] [address] Primary Staff Physician Cardiology 07/18/18 Family Resource Coordinator Relationship Specialty Start Date End Date Scarlett Gaviria [address] [place] [phone] PCP - General Family Medicine 10/15/15 [facility], Nolberto Vagesh [address] [place] [address] Primary Staff Physician Cardiology 07/18/18 Family Resource Coordinator Relationship Specialty Start Date End Date Scarlett Gavir[place] [phone] PCP - General Family Medicine 10/15/15 [facility], Nolberto Vagesh [address] [place] [address] Primary Staff Physician Cardiology 07/18/18 Family Resource Coordinator Relationship Specialty Start Date End Date Scarlett Gavir[place] [phone] PCP - General Family Medicine 10/15/15 [facility], Nolberto Vagesh [address] [place] [address] Primary Staff Physician Cardiology 07/18/18 Flory Fan MD [address] [place] [address] Primary Staff Physician Cardiology 05/18/22 Family Resource Coordinator Relationship Specialty Start Date End Date EveretteScarlett [place] [phone] PCP - General Family Medicine 10/15/15 [facility]amile[facility]olbertoem[facility] Goncalves [address] [facility] [place] [address] Primary Staff Physician Cardiology 07/18/18 Flory Fan MD [address] [place] [address] Primary Staff Physician Cardiology 05/18/22 Family Resource Coordinator Relationship Specialty Start Date End Date Gaviria[address]arlett [address] [facility] [place] [phone] PCP - General Family Medicine 10/15/15 Nolberto Thomas [address] [facility] [place] [address] Primary Staff Physician Cardiology 07/18/18 Flory Fan MD [address] [place] [address] Primary Staff Physician Cardiology 05/18/22 Family Resource Coordinator Relationship Specialty Start Date End Date EveretteScarlett [address] [place] [phone] PCP - General Family Medicine 10/15/15 Nolberto Thomas [address] [place] [address] Primary Staff Physician Cardiology 07/18/18 Flory Fan MD [address] [place] [address] Primary Staff Physician Cardiology 05/18/22 Family Resource Coordinator Relationship Specialty Start Date End Date Gaviria[address]ar[address] [place] [phone] PCP - General Family Medicine 10/15/15 Nolberto Thomas [address] [place] [address] Primary Staff Physician Cardiology 07/18/18 Flory Fan MD [address] [place] [address] Primary Staff Physician Cardiology 05/18/22 Family Resource Coordinator Relationship Specialty Start Date End Date Scarlett Gaviria [address] [facility] [place] [address] PCP - General Family Medicine 10/15/15 Nolberto Thomas [address] [place] [place] [address] Primary Staff Physician Cardiology 07/18/18 Flory Fan MD [address] [place] [address] Primary Staff Physician Cardiology 05/18/22 Family Resource Coordinator Relationship Specialty Start Date End Date Gaviria[address]ar[address] [place] [phone] PCP - General Family Medicine 10/15/15 Nolberto Thomas [address] [place] [place] [address] Primary Staff Physician Cardiology 07/18/18 Flory Fan MD [address] [place] [address] Primary Staff Physician Cardiology 05/18/22 Family Resource Coordinator Relationship Specialty Start Date End Date Scarlett Gaviria [address] [place] [phone] PCP - General Family Medicine 10/15/15 Nolberto Thomas [address] [place] [address] Primary Staff Physician Cardiology 07/18/18 Flory Fan MD [address] [place] [address] Primary Staff Physician Cardiology 05/18/22 Family Resource Coordinator Relationship Specialty Start Date End Date Scarlett Gaviria [address] [place] [address] PCP - General Family Medicine 10/15/15 Nolberto Thomas [address] [place] [address] Primary Staff Physician Cardiology 07/18/18 Flory Fan MD [address] [place] [address] Primary Staff Physician Cardiology 05/18/22 Family Resource Coordinator Relationship Specialty Start Date End Date Scarlett Gaviria [address] [place] [address] PCP - General Family Medicine 10/15/15 Nolberto Thmoas [address] [place] [address] Primary Staff Physician Cardiology 07/18/18 Flory Fan MD [address] [place], [place] [address] Primary Staff Physician Cardiology 05/18/22 Family Resource Coordinator Relationship Specialty Start Date End Date Scarlett Gaviria [address] [place] [address] PCP - General Family Medicine 10/15/15 Nolberto Thomas [address] [place] [address] Primary Staff Physician Cardiology 07/18/18 Flory Fan MD [address] [place], [place] [phone] Primary Staff Physician Cardiology 05/18/22 Family Resource Coordinator Relationship Specialty Start Date End Date Scarlett Gaviria [address] [place] [address] PCP - General Family Medicine 10/15/15 Nolberto Thomas [address] [place] [address] Primary Staff Physician Cardiology 07/18/18 Flory Fan MD [address] [place], [place] [phone] Primary Staff Physician Cardiology 05/18/22 Family Resource Coordinator Relationship Specialty Start Date End Date Scarlett Gaviria [address] [place] [phone] PCP - General Family Medicine 10/15/15 Nolberto Thomas [address] [place] [address] Primary Staff Physician Cardiology 07/18/18 Flory Fan MD [address] [place], [place] [address] Primary Staff Physician Cardiology 05/18/22 Family Resource Coordinator Relationship Specialty Start Date End Date Scarlett Gaviria [address] [place] [address] PCP - General Family Medicine 10/15/15 Nolberto Thomas [address] [place] [address] Primary Staff Physician Cardiology 07/18/18 Flory Fan MD [address] [place] [address] Primary Staff Physician Cardiology 05/18/22 Family Resource Coordinator Relationship Specialty Start Date End Date Unallocated, Noms Provider [address] [place] [address] PCP - General 11/15/22 Scarlett Gaviria NP [address] [address] Referring Physician Family Medicine 11/15/22 Family Resource Coordinator Relationship Specialty Start Date End Date Unallocated, Noms Provider [address] [place] [address] PCP - General 11/15/22 Scarlett Gaviria NP [address] [place] [address] Referring Physician Family Medicine 11/15/22 Family Resource Coordinator Relationship Specialty Start Date End Date Everette Scarlett Nathaniel [address] [place] [address] PCP - General Family Medicine 10/15/15 Nolberto Thomas [address] [place] [address] Primary Staff Physician Cardiology 07/18/18 Flory Fan MD [address] [place] [address] Primary Staff Physician Cardiology 05/18/22 Family Resource Coordinator Relationship Specialty Start Date End Date Scarlett Gaviria [address] [place] [phone] PCP - General Family Medicine 10/15/15 [facility] [address] [facility] [place] [address] Primary Staff Physician Cardiology 07/18/18 Flory Fan MD [address] [place] [address] Primary Staff Physician Cardiology 05/18/22 Team Status: Active Member Role Status Dates Scarlett Gaviria Primary Care Provider Active Team Status: Inactive Member Role Status Dates Scarlett Gaviria Primary Care Provider Active Star t: June 20, 2023 End: June 20, 2023 ROOPA Hussein Attending Provider Active Start: June 20, 2023 End: June 20, 2023 Team Status: Active Member Role Status Dates Scarlett Gaviria Primary Care Provider Active Star t: June 20, 2023 ROOPA Hussein Attending Provider Active Start: June 20, 2023 Family Resource Coordinator Relationship Specialty Start Date End Date Everette Scarlett L [address] [place] [phone] PCP - General Family Medicine 10/15/15 Nolberto Thomas [address] [place] [address] Primary Staff Physician Cardiology 07/18/18 Flory Fan MD [address] [place], [place] [address] Primary Staff Physician Cardiology 05/18/22 Family Resource Coordinator Relationship Specialty Start Date End Date Scarlett Gaviria [address] [place] [phone] PCP - General Family Medicine 10/15/15 [facility] Corporation[facility] scott [address] [place] [address] Primary Staff Physician Cardiology 07/18/18 Flory Fan MD [address] [place], [place] [address] Primary Staff Physician Cardiology 05/18/22 Family Resource Coordinator Relationship Specialty Start Date End Date Scarlett Gaviria [address] [place] [address] PCP - General Family Medicine 10/15/15 Nolberto Thomas [address] [place] [address] Primary Staff Physician Cardiology 07/18/18 Flory Fan MD [address] [place] [address] Primary Staff Physician Cardiology 05/18/22 Family Resource Coordinator Relationship Specialty Start Date End Date Scarlett Gaviria [address] [place] [phone] PCP - General Family Medicine 10/15/15 [facility] Corporation[facility] sc[facility] [address] [place] [address] Primary Staff Physician Cardiology 07/18/18 Flory Fan MD [address] [place], [place] [id number] Primary Staff Physician Cardiology 05/18/22 Family Resource Coordinator Relationship Specialty Start Date End Date Scarlett Gaviria [address] [place] [phone] PCP - General Family Medicine 10/15/15 Nolberto Thomas [address] [place] [address] Primary Staff Physician Cardiology 07/18/18 Flory Fan MD [address] [place] [address] Primary Staff Physician Cardiology 05/18/22 Family Resource Coordinator Relationship Specialty Start Date End Date Scarlett Gaviria [address] [place] [address] PCP - General Family Medicine 10/15/15 Nolberto Thomas [address] [place], [place] [id number] Primary Staff Physician Cardiology 07/18/18 Flory Fan MD [address] [place], [place] [id number] Primary Staff Physician Cardiology 05/18/22 Family Resource Coordinator Relationship Specialty Start Date End Date Scarlett Gaviria [address] [place] [phone] PCP - General Family Medicine 10/15/15 Nolberto Thomas [address] [place] [address] Primary Staff Physician Cardiology 07/18/18 Flory Fan MD [address] [place] [address] Primary Staff Physician Cardiology 05/18/22 Family Resource Coordinator Relationship Specialty Start Date End Date Scarlett Gaviria [address] [place] [phone] PCP - General Family Medicine 10/15/15 Nolberto Thomas [address] [place], [place] [id number] Primary Staff Physician Cardiology 07/18/18 Flory Fan MD [address] [place], [place] [phone] Primary Staff Physician Cardiology 05/18/22 Family Resource Coordinator Relationship Specialty Start Date End Date Scarlett Gaviria [address] [place] [address] PCP - General Family Medicine 10/15/15 Nolberto Thomas [address] [place] [address] Primary Staff Physician Cardiology 07/18/18 Flory Fan MD [address] [place] [address] Primary Staff Physician Cardiology 05/18/22 Family Resource Coordinator Relationship Specialty Start Date End Date Scareltt Gaviria [address] [place] [address] PCP - General Family Medicine 10/15/15 Nolberto Thomas [address] [place] [address] Primary Staff Physician Cardiology 07/18/18 Flory Fan MD [address] [place], [place] [phone] Primary Staff Physician Cardiology 05/18/22 Family Resource Coordinator Relationship Specialty Start Date End Date Scarlett Gaviria [address] [place] [address] PCP - General Family Medicine 10/15/15 Nolberto Thomas [address] [place] [address] Primary Staff Physician Cardiology 07/18/18 Flory Fan MD [address] [place] [address] Primary Staff Physician Cardiology 05/18/22 Family Resource Coordinator Relationship Specialty Start Date End Date Scarlett Gaviria [address] [place] [phone] PCP - General Family Medicine 10/15/15 Nolberto Thomas [address] [place] [place] [address] Primary Staff Physician Cardiology 07/18/18 Flory Fan MD [address] [place], [place] [phone] Primary Staff Physician Cardiology 05/18/22 Family Resource Coordinator Relationship Specialty Start Date End Date Scarlett Gaviria [address] [place] [address] PCP - General Family Medicine 10/15/15 Nolberto Thomas [address] [place] [address] Primary Staff Physician Cardiology 07/18/18 Flory Fan MD [address] [place] [address] Primary Staff Physician Cardiology 05/18/22 Family Resource Coordinator Relationship Specialty Start Date End Date Scarlett Gaviria [address] [place] [phone] PCP - General Family Medicine 10/15/15 Nolberto Thomas [address] [place], [place] [phone] Primary Staff Physician Cardiology 07/18/18 Flory Fan MD [address] [place] [address] Primary Staff Physician Cardiology 05/18/22 Family Resource Coordinator Relationship Specialty Start Date End Date Scarlett Gaviria [address] [place] [address] PCP - General Family Medicine 10/15/15 Nolberto Thomas [address] [place] [address] Primary Staff Physician Cardiology 07/18/18 Flory Fan MD [address] [place], [place] [phone] Primary Staff Physician Cardiology 05/18/22 Family Resource Coordinator Relationship Specialty Start Date End Date Scarlett Gaviria [address] [place] [address] PCP - General Family Medicine 10/15/15 Nolberto Thomas [address] [place] [address] Primary Staff Physician Cardiology 07/18/18 Flory Fan MD [address] [place] [address] Primary Staff Physician Cardiology 05/18/22 Family Resource Coordinator Relationship Specialty Start Date End Date Unallocated, Noms MD Osmar [facility] [place] [address] PCP - General 11/15/22 Scarlett Gaviria NP [address] [facility] [place] [address] Referring Physician Family Medicine 11/15/22 Family Resource Coordinator Relationship Specialty Start Date End Date Unallocated, Federico Prasad MD [address] [place] [address] PCP - General 11/15/22 Scarlett Gaviria NP [address] [facility] [place] [address] Referring Physician Family Medicine 11/15/22 Goals (unrecognized section and content) Goals may be documented in a n alternate section FOR RECORDS PERTAINING TO PATIENTS WHO ARE OR HAVE BEEN ENROLLED IN A CHEMICAL DEPENDENCY/SUBSTANCEABUSE PROGRAM, SOME INFORMATION MAY BE OMITTED. This clinical summary was aggregated from multiple sources. Caution should be exercised in using it in the provision of clinical care. This summary normalizes information from multiple sources, and as a consequence, information in this document may materially change the coding, format and clinical context of patient data. In addition, data may be omitted in some cases. CLINICAL DECISIONS SHOULD BE BASED ON THE PRIMARY CLINICAL RECORDS. [employer] provides no warranty or guarantee of the accuracy or completeness of information in this document.
--- NOTE | 2024-02-09 09:04 | MR_ITS ---
The [address] [address] Patient Name: IRENA BUSCH MRN: [id number] date: 1945 Sex: M Assigned Patient Location: [facility] Current Patient Location: Accession/Order Number: [id number] Exam Date: 02/09/2024 09:50 Report Date: 02/13/2024 08:18 At the request of: NON-STAFF PHYSICIAN Procedure: MR wrist LT wo/w con HISTORY: Chronic left wrist pain. The patient has a palpable lump along the volar aspect of the left wrist. Evaluate for mass. MRI left wrist without and with contrast 02/09/2024. COMPARISON: None. TECHNIQUE: Multiplanar, multisequence MRI images of the left wrist were obtained prior to and following the intravenous administration of gadolinium. FINDINGS: LIGAMENTS AND TFCC: The scapholunate ligament complex is not visualized. The lunotriquetral ligament appears grossly intact. There is a full-thickness tear of the entire TFCC. BONES AND JOINTS: The bone marrow signal intensity appears age appropriate. There is abnormal widening of the scapholunate joint space of 5 mm. There is a rotatory subluxation of the scaphoid. There is severe dorsal tilt of the lunate. There is proximal migration of the capitate between the scaphoid and lunate. There are severe degenerative changes of the radiocarpal joint with a [id number] appearance. There is prominent subchondral cystic change within the adjacent distal radius and to lesser extent the scaphoid. There are also severe degenerative changes of the distal radial ulnar joint. There is a large joint effusion of the distal radioulnar joint with an underlying synovitis. There is a moderate joint effusion and enhancing synovitis of the radiocarpal joint. There are severe degenerative changes of the triscaphe joint. There are moderate to severe degenerative changes of the first carpometacarpal joint. There appear to be mild degenerative changes of the second through fifth carpometacarpal joints. There is adjacent subchondral cystic change of these joints. There is evidence of multiple subchondral cysts involving the carpal bones. TENDONS: There is a large amount of complex, loculated fluid within the flexor carpi radialis tendon sheath extending from the level of the distal radial metaphysis to the level of the trapezium. There is evidence of a longitudinal split tear of the flexor carpi radialis tendon at the level of the triscaphe joint spanning approximately 1.5 cm in length as best seen on the axial T1 fat-saturated images following contrast. There is a small amount of enhancing fluid within the second through fifth flexor digitorum tendon sheath extending from the level of the distal radius the level of the fourth and fifth metacarpals. However, no significant tendinopathy or tear of these tendons is seen. The other tendons of the wrist appear grossly within normal limits. CARPAL TUNNEL: The visualized median nerve appears grossly within normal limits and no space-occupying mass is seen in the carpal tunnel. MUSCLES AND SOFT TISSUES: The visualized musculature appears grossly within normal limits in signal intensity. No significant soft tissue swelling is seen. MR/MR wrist LT wo/w con IMPRESSION: 1. 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 There are associated joint effusions and an enhancing synovitis of these joints which may be secondary to a response to the degenerative changes of the joints or could be due to an underlying crystal deposition arthropathy such as pseudogout or gout; or could less likely be due to an inflammatory arthropathy such as rheumatoid arthritis. There are also severe degenerative changes of the first carpometacarpal joint and moderate to severe degenerative changes of the first carpometacarpal joint. 2. There is a longitudinal split tear of the flexor carpi radialis tendon at the level of the triscaphe joint spanning approximately 1.5 cm in length. There is also a severe stenosing tenosynovitis of the flexor carpi radialis tendon sheath extending from the level of the distal radius to the level of the triscaphe joint which is a likely cause for a palpable lump in this region. 3. There is a mild enhancing tenosynovitis of the second through fifth flexor digitorum tendon sheath, but no significant tendinopathy or tear of these tendons is seen. 4. No enhancing soft tissue mass of the wrist is seen. 5. Complete tear of the scapholunate ligament and the TFCC. Electronically authenticated by: AMANDO GODDARD Date: 02/13/2024 08:18
[2024-02-09 09:05] LABS: Estimated GFR (African America >60 (>=60 mL/min/1.73m^2); Estimated GFR (Non-African Ame 54 (>=60 mL/min/1.73m^2)
--- NOTE | 2024-02-09 09:06 | XR_ITS ---
[address] [address] Patient Name: IRENA BUSCH MRN: [id number] date: 1945 Sex: M Assigned Patient Location: RAD Current Patient Location: [facility] Accession/Order Number: [id number] Exam Date: 02/09/2024 09:10 Report Date: 02/09/2024 09:39 At the request of: NON-STAFF PHYSICIAN Procedure: XR foreign body eye BRANDYN EXAMINATION: XR foreign body eye BRANDYN HISTORY: Foreign Body Screening COMPARISON: No relevant comparison available. FINDINGS: ORBITS: Negative for a metallic foreign body. OTHER: Negative. XR/XR foreign body eye BRANDYN IMPRESSION: No metallic foreign body in the orbits Electronically authenticated by: BOUBACAR CORDERO Date: 02/09/2024 09:39
== END 2024-02-09 08:35 | disposition home or self-care (01) ==
LOC: RAD 08:36
PROVIDERS: PCP Nurse Practitioner Family
DX: M19.032 Primary osteoarthritis, left wrist (principal); M25.532 Pain in left wrist
CPT/HCPCS: 36415; 70030; 73223; 82565; A9575

== ENCOUNTER 2024-05-03 15:08 | Inpatient (IN) | payer OTHER, SELFPAY ==
[2024-05-03] VITALS (41 sets, daily range): BP systolic 113–162; BP diastolic 50–104; PULSE 98–133; TEMP 36.8–37.1; O2SAT 83–97; BMI 33.6; BMI 30.2
--- NOTE | 2024-05-03 15:15 | ECG_ITS ---
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
--- NOTE | 2024-05-03 15:16 | XR_ITS ---
The [address] [address] Patient Name: IRENA BUSCH MRN: [id number] date: 1945 Sex: M Assigned Patient Location: ER Current Patient Location: ED.MAIN Accession/Order Number: [id number] Exam Date: 05/03/2024 15:30 Report Date: 05/03/2024 19:44 At the request of: CHRISTINE HECK Procedure: XR chest 1V SINGLE VIEW CHEST: 05/03/2024 3:30 PM EST CLINICAL HISTORY:SOB COMPARISONS: 04/20/2023 TECHNIQUE: Single frontal view of the chest, utilizing portable technique. Portable radiography should be considered a technically compromised study. Strongly consider dedicated PA and lateral chest radiographs, as clinically indicated. FINDINGS: LINES AND TUBES: Cardiac monitoring leads and wires overlie the patient. CARDIAC SILHOUETTE: Within normal limits. MEDIASTINAL AND HILAR CONTOUR: Mild pulmonary venous congestion. PULMONARY PARENCHYMA AND PLEURA: Mild bilateral lung interstitial prominence. No consolidation or pleural effusion. No pneumothorax. OSSEOUS STRUCTURES:Bilateral reverse shoulder arthroplasty hardware. OTHER COMMENTS:None. XR/XR chest 1V IMPRESSION: Pulmonary venous congestion. Mild right greater than left interstitial prominence. Correlate for CHF. This report was generated with voice recognition software. Effort has been made to ensure accuracy of this report, however, occasional wording errors may persist. Please contact our office with any questions. Electronically authenticated by: LARY LUNSFORD Date: 05/03/2024 19:44
--- NOTE | 2024-05-03 15:34 | ED_ITS ---
HPI HPI - General Adult General Chief complaint: Shortness of Breath/Dyspnea Stated complaint: SOB, AFIB Time Seen by Provider: 05/03/24 15:10 History of Present Illness HPI narrative: 79-year-old male presents to the emergency department for shortness of breath. He has had this for several days and is getting worse. He has not had a fever or productive cough. He is not complaining to me of chest pain. He gets much more short of breath with any exertion. Related Data Home Medications ?Medication ?Instructions ?Recorded ?Confirmed allopurinol 100 mg tablet 100 mg PO DAILY 08/30/23 05/03/24 atenolol 50 mg tablet 50 mg PO DAILY 08/30/23 05/03/24 atorvastatin 40 mg tablet 40 mg PO DAILY 08/30/23 05/03/24 duloxetine 60 mg capsule,delayed 60 mg PO DAILY 08/30/23 05/03/24 release fenofibrate 160 mg tablet 160 mg PO DAILY 08/30/23 05/03/24 furosemide 20 mg tablet 20 mg PO DAILY 08/30/23 05/03/24 montelukast 10 mg tablet 10 mg PO DAILY 08/30/23 05/03/24 ropinirole 1 mg tablet 1 mg PO QPM 08/30/23 05/03/24 tolterodine 4 mg capsule,extended 4 mg PO DAILY 08/30/23 05/03/24 release 24 hr aspirin 81 mg tablet,delayed 81 mg PO DAILY 05/03/24 05/03/24 release flecainide 100 mg tablet 100 mg PO Q12H 05/03/24 05/03/24 fluticasone 100 mcg-salmeterol 50 1 inh inhalation BID 05/03/24 05/03/24 mcg/dose blistr powdr for inhalation (Advair Diskus) indomethacin 50 mg capsule 50 mg PO BID 05/03/24 05/03/24 Allergies Allergy/AdvReac Type Severity Reaction Status Date / Time No Known Drug Allergies Allergy Verified 05/03/24 16:13 Opioid HPI Opioid Management Most Recent Opioid Data: Last Pain Scale 8 08/30/23 16:42 08/30/23 Review of Systems ROS Narrative A ten point review of systems is negative except as noted above. PFSH PFSH Social History Little interest or pleasure in doing things: not at all Feeling down, depressed, or hopeless: not at all Exam Narrative Exam Narrative: Nurses note and vital signs reviewed and patient is not hypoxic. General: The patient appears dyspneic. He is using accessory muscles. Skin: Warm, dry, no pallor noted. There is no rash noted. Head: Normocephalic, atraumatic Eye: Normal conjunctiva, no drainage Ears, Nose, Mouth, and Throat: oral mucosa is moist. Nares patent. Cardiovascular: Irregularly irregular and tachycardic Respiratory: He is dyspneic. Breath sounds are equal and no rales or rhonchi are appreciated. Good air movement present Back: non-tender, no CVA tenderness bilaterally to percussion. GI: Soft and nontender Musculoskeletal: The patient has no evidence of calf tenderness, no pitting edema, symmetrical pulses noted bilaterally Neurological: A&O, normal speech Psychiatric: Cooperative Constitutional Vital Signs, click to edit/add: Last Vital Signs Temp 98.8 F 05/03/24 15:20 Pulse 108 H 05/03/24 16:50 Resp 26 H 05/03/24 16:50 BP 131/86 05/03/24 17:01 Pulse Ox 95 05/03/24 16:50 O2 Del Method Nasal Cannula 05/03/24 15:20 O2 Flow Rate 4 05/03/24 15:20 Course Vital Signs Vital signs: Vital Signs Blood Pressure 136/84 05/03/24 15:12 Temperature 98.8 F 05/03/24 15:20 Pulse Rate 108 H 05/03/24 16:50 Respiratory Rate 26 H 05/03/24 16:50 Blood Pressure 131/86 05/03/24 17:01 Pulse Oximetry 95 05/03/24 16:50 Oxygen Delivery Method Nasal Cannula 05/03/24 15:20 Oxygen Delivery Flow Rate 4 05/03/24 15:20 Medical Decision Making [facility] Narrative Medical decision making narrative: The patient presented to the emergency department with shortness of breath. He had significant exertional dyspnea. He has no personal history of congestive heart failure but has a history of A-fib. He had an episode of A-fib about 20 years ago and had cardioversion and has had a Watchman implanted. He states that he went back into A-fib about 3 weeks ago and the symptoms started about 3 days ago. His heart rate was in the 1 teens when he first arrived. He was given IV Lasix and is feeling improved after he was placed on oxygen. He is being admitted. Differential Diagnosis Differential Diagnosis: CHF, COVID, pneumonia, influenza Lab Data Lab results reviewed: Yes I reviewed the patient's lab results Labs: Lab Results 05/03/24 05/03/24 Range/Units 15:29 16:00 WBC 11.7 H (4.0-11.0) 10^3/uL RBC 3.90 L (4.70-6.10) 10^6/uL Hgb 12.4 L (14.0-18.0) g/dL Hct 39.0 L (42.0-54.0) % MCV 100.0 H (80.0-94.0) fL MCH 31.8 (25.9-34.0) pg MCHC 31.8 (29.9-35.2) g/dL RDW 13.6 (11.0-15.0) % Plt Count 266 (150-450) 10^3/uL MPV 9.4 L (9.5-13.5) fL Seg Neuts % (Manual) 94.0 H (43.0-75.0) Lymphocytes % (Manual) 2.0 L (20.5-60.0) % Monocytes % (Manual) 2.0 (1.7-12.0) % Eosinophils % (Manual) 0.0 L (0.9-7.0) % Basophils % (Manual) 2.0 (0.2-2.0) % Neutrophils # (Manual) 10.99 H (1.4-6.5) 10^3/uL Lymphocytes # (Manual) 0.23 L (1.20-3.80) 10^3/uL Monocytes # (Manual) 0.23 L (0.30-0.80) 10^3/uL Eosinophils # (Manual) 0.00 (0.00-0.70) 10^3/uL Basophils # (Manual) 0.23 H (0.00-0.10) 10^3/uL Sodium 142 (136-145) mmol/L Potassium 4.1 (3.5-5.1) mmol/L Chloride 104 (98-107) mmol/L Carbon Dioxide 28.2 (21.0-32.0) mmol/L Anion Gap 13.9 BUN 12.0 (7.0-18.0) mg/dL Creatinine 1.56 H (0.70-1.30) mg/dL Est GFR ( Amer) 52 L (>=60 mL/min/1.73m^2) Est GFR (Non-Af Amer) 43 L (>=60 mL/min/1.73m^2) BUN/Creatinine Ratio 7.7 Glucose 145 H (74-106) mg/dL Calcium 9.1 (8.5-10.1) mg/dL Troponin I High Sens 33.6 (4.0-76.1) pg/mL NT-Pro-B Natriuret Pep 7210.0 H* (<=1800.0) pg/mL Influenza Type A Ag Negative Influenza Type B Ag Negative SARS-CoV-2 Ag (CV2AG) Negative (NEGATIVE) Imaging Data Chest x-ray: My impression: Heart failure ECG Data Attestation: I personally reviewed and interpreted this ECG as follows: (With a rateEKG on my interpretation shows atrial fibrillation 121) Discharge Plan Discharge Chief Complaint: Shortness of Breath/Dyspnea Clinical Impression: Congestive heart failure Patient Disposition: Admitted As Inpatient Time of Disposition Decision: 17:22 Condition: Good
[2024-05-03 16:02] LABS: Influenza Virus A Antigen Negative; Influenza Virus B Antigen Negative; Internal Control Within Normal Limits; SARS-CoV-2 Ag NEGATIVE (NEGATIVE)
[2024-05-03 16:21] LABS: Hemoglobin 12.4 g/dL (14.0-18.0); Mean Corpuscular HGB Conc 31.8 g/dL (29.9-35.2); Mean Corpuscular Hemoglobin 31.8 pg (25.9-34.0); Mean Platelet Volume 9.4 fL (9.5-13.5); Platelet Count 266 10^3/uL (150-450); Red Cell Distribution Width 13.6 % (11.0-15.0); White Blood Count 11.7 10^3/uL (4.0-11.0)
[2024-05-03 16:24] LABS: Anion Gap 13.9; BUN Creatinine Ratio 7.7; Calcium 9.1 mg/dL (8.5-10.1); Carbon Dioxide 28.2 mmol/L (21.0-32.0); Chloride 104 mmol/L (98-107); Estimated GFR (African America 52 (>=60 mL/min/1.73m^2); Estimated GFR (Non-African Ame 43 (>=60 mL/min/1.73m^2); Glucose 145 mg/dL (74-106); Potassium 4.1 mmol/L (3.5-5.1); Sodium 142 mmol/L (136-145)
[2024-05-03 16:39] LABS: Troponin I High Sensitivity 33.6 pg/mL (4.0-76.1)
[2024-05-03 16:51] LABS: Basophils Abs Manual 0.23 10^3/uL (0.00-0.10); Lymphocytes Absolute Manual 0.23 10^3/uL (1.20-3.80); Monocytes Absolute Manual 0.23 10^3/uL (0.30-0.80); Segmented Neut Absolute Manual 10.99 10^3/uL (1.4-6.5)
[2024-05-03] MEDS: FUROSEMIDE 40 MG/4 ML VIAL IVP (17:01)
--- NOTE | 2024-05-03 18:25 | P.HP_ITS ---
HPI H&P: HPI History of Present Illness Chief complaint: SOB, AFIB CHF Narrative: Patient presented to the emergency room with increasing cough and shortness of breath. Found to have acute combined congestive heart failure. He denies having a significant history of heart failure in the past. He does have a recent diagnosis of atrial fibrillation for which they decided not to place him on anticoagulants secondary to already having a Watchman device placed When I saw patient in the emergency room, sitting up at the bedside some mild conversational dyspnea, denies any other complaints. Denies chest pain Opioid HPI Opioid Management Most Recent Pain and Opioid Data: Last Pain Scale 8 08/30/23 16:42 08/30/23 Review of Systems ROS Status of ROS 10 or more systems reviewed and unremark able except as noted in history and below PFSH PFSH Social History Little interest or pleasure in doing things: not at all Feeling down, depressed, or hopeless: not at all Meds Home Medications and Allergies Home Medications ?Medication ?Instructions ?Recorded ?Confirmed ?Type allopurinol 100 mg tablet 100 mg PO DAILY 08/30/23 05/03/24 History atenolol 50 mg tablet 50 mg PO DAILY 08/30/23 05/03/24 History atorvastatin 40 mg tablet 40 mg PO .noon 08/30/23 05/03/24 History duloxetine 60 mg capsule,delayed 60 mg PO DAILY 08/30/23 05/03/24 History release fenofibrate 160 mg tablet 160 mg PO DAILY 08/30/23 05/03/24 History furosemide 20 mg tablet 20 mg PO DAILY 08/30/23 05/03/24 History montelukast 10 mg tablet 10 mg PO DAILY 08/30/23 05/03/24 History ropinirole 1 mg tablet 1 mg PO QPM 08/30/23 05/03/24 History tolterodine 4 mg capsule,extended 4 mg PO DAILY 08/30/23 05/03/24 History release 24 hr aspirin 81 mg tablet,delayed 81 mg PO DAILY 05/03/24 05/03/24 History release flecainide 100 mg tablet 100 mg PO Q12H 05/03/24 05/03/24 History flecainide 100 mg tablet 100 mg PO Q12H 05/03/24 05/03/24 History fluticasone 100 mcg-salmeterol 50 1 inh inhalation BID 05/03/24 05/03/24 History mcg/dose blistr powdr for inhalation (Advair Diskus) omeprazole 40 mg capsule,delayed 40 mg PO .ACB 05/03/24 05/03/24 History release Allergies Allergy/AdvReac Type Severity Reaction Status Date / Time No Known Drug Allergies Allergy Verified 05/03/24 16:13 Exam Constitutional Vital Signs, click to edit/add: Last Vital Signs Temp 98.8 F 05/03/24 15:20 Pulse 108 H 05/03/24 16:50 Resp 26 H 05/03/24 16:50 BP 131/86 05/03/24 17:01 Pulse Ox 95 05/03/24 16:50 O2 Del Method Nasal Cannula 05/03/24 15:20 O2 Flow Rate 4 05/03/24 15:20 Documenting provider has reviewed patient's vital signs: yes Common normals: apparent distress (Mild respiratory distress) Chest Common normals: inspection of chest normal Respiratory Common normals: no retractions; abnormal respiratory effort (Mild respiratory distress) and not clear to ascultation bilaterally Auscultation: rales Cardio Common normals: regular rate Rhythm: regular rhythm GI Common normals: Normal to inspection, nondistended, normoactive bowel sounds present, soft to palpation and non-tender Extremity Common normals: abnormal to inspection (2+ edema) Results Labs Labs: Short CBC 05/03/24 Range/Units 16:00 WBC 11.7 H (4.0-11.0) 10^3/uL Hgb 12.4 L (14.0-18.0) g/dL Hct 39.0 L (42.0-54.0) % Plt Count 266 (150-450) 10^3/uL BMP 05/03/24 16:00 Sodium 142 Potassium 4.1 Chloride 104 Carbon Dioxide 28.2 BUN 12.0 Creatinine 1.56 H Glucose 145 H Calcium 9.1 Assessment and Plan Assessment and Plan (1) Congestive heart failure: (2) Left wrist pain: (3) Dyspnea: Plan Admission findings: Sinus tachycardia, respiratory distress, acute hypoxia with O2 sat of 83%, leukocytosis with left shift, mild anemia, I will do it to acute combined congestive heart failure Acute combined congestive heart failure-will check other labs, check echo in a.m., Bumex drip tonight., Repeat BNP in a.m., trend his troponins Iron deficiency anemia-monitor daily Mild elevation in creatinine-uncertain what his baseline is Atrial fibrillation with rate controlled-does not need anticoagulation secondary to having a Watchman device placed Hypertension by history-continue with home medications Hypercholesterolemia by history-continue with home medications Depression-continue with home medications Mild COPD-continue with home medications Restless leg syndrome continue with home medications GERD continue with home medications Bladder spasms continue with home medications Admission status: Patient with acute combined congestive heart failure, not had a history of heart failure in the past will workup in the hospital, [place], medically necessary treatment will span 2 midnights. Inpatient status
[2024-05-03] MEDS: BUMETANIDE 10 MG in 0.9 % SODIUM CHLORIDE 160 ML 20 MG IV (19:59)
--- OUTSIDE RECORDS SUMMARY | 2024-05-03 20:43 | XMS_ITS | CCD ---
Author Organization [facility] Team Providers Care Auto Wash Buffer Name Role Phone KB TORRES (SAI) Unavailable Unavailable LAURA, YFN H Unavailable Unavailable LAURA, YFN H Unavailable Unavailable LAURA, YFN H Unavailable Unavailable LAURA, YFN H Unavailable Unavailable LAURA, YFN H Unavailable Unavailable LAURA, YFN H Unavailable Unavailable Scarlett Gaviria Primary Care Physician [phone] Zahira Hogan Unavailable Unavailable Jacqueline Alvarado Unavailable Unavailable Kristina Rodriguez Unavailable Unavailable Scarlett Gaviria Primary Care Provider [phone] Nolberto Thomas Unavailable Scarlett Gaviria Primary Care Provider Nolberto Thomas Unavailable [phone] Scarlett Gaviria Primary Care Provider Yamile Thomastan Vagesh Unavailable Miriam Maravilla MD, Flory Unavailable [phone] DR DAVID KING Admitting Unavailable DR DAVID KING Attending Unavailable DR DAVID KING Consulting Unavailable ANA CRISTINA, DR STOKES Primary Care Unavailable BOUBACAR BATES Consulting Unavailable DR MATTHEW ALEXANDRE Procedure Practitioner Rosita vailable SHAIKH Nikkie CASSIDY Admitting Unavailable SHAIKH Nikkie CASSIDY Attending Unavailable DR MATTHEW ALEXANDRE Consulting Unavailfadi DE LA PAZ, DR STOKES Primary Care Unavailable DR TRACE SILVA Consulting Unavailable DR TRACE SILVA Procedure Practitioner Unavail able TRACEY GUDINO Consulting Unavailable Esvin Esteves Consulting Unavailable SHAIKH Nikkie CASSIDY Consulting Unavailable KADEN FREITAS Consulting Unavailable SISTER, TIM Consulting Unavailable SHANNON EMERY Consulting Unavailable ANA CRISTINA, DR STOKES Primary Care Unavailable CONSUELO DR HAMLIN Consulting Unavailable TAMI ., ANTONY Admitting Unavailable TAMI ., ANTONY Attending Unavailable TAMI .ANTONY Consulting Unavailable PAY, DR IBARRA Admitting Unavailable PAY, DR IBARRA Attending Unavailable MICHAEL CHAVEZ Consulting Unavailable MISC, DR STOKES Primary Care Unavailable MATTHEW ANN Consulting Unavailable MICHAEL CHAVEZ Consulting Unavailable CHRISTINE HECK Admitting Unavailable CHRISTINE HECK Attending Unavailable MIS, DR STOKES Primary Care Unavailable CHRISTINE HECK Consulting Unavailable KB SMALLWOOD Consulting Unavailable PASCUAL GODINEZ Consulting Unavailable GRETCHEN, PASCUAL Admitting Unavailable GRETCHEN, PASCUAL Attending Unavailable [facility], DR STOKES Primary Care Unavailable SAM CHAN Consulting Unavailable Nolberto Thomas Unavailable [phone] Miriam Maravilla MD, Flory Unavailable [phone] Scarlett Gaviria NP Unavailable Unallocatsue, Noms Provider Primary Care Provider Scarlett Gaviria Primary Care Provider [phone] ROOPA Esposito Attending Provider Yareli Esposito Attending Unavailable Yareli Esposito Admitting Unavailable Gaviria, Scarlett L Primary Care Unavailable Everette, Scarlett L Primary Care Provider Gaviria, Scarlett L Admitting Unavailable Gaviria, Scarlett L Attending Unavailable Gaviria, Scarlett L Referring Unavailable Nghia ROBERSON P Attending Unavailable COOKNghia P Attending Unavailable Zuhair Beatty Attending Unavaila ble Nghia ROBERSON P Attending Unavailable COOK, Nghia P Attending Unavailable COOK, Nghia P Admitting Unavailable COOKBronsnoNghia P Attending Unavailable Adamowicz, Jevon Attending Unavailable [...] Referring Unavailable Gaviria, Scarlett L Admitting Unavailable Unallocated , Federico Provider Primary Care Provi shaji Unallocated Federico JARVIS Provider Primary Care Provi shaji GABRIEL, OLIMPIA Referring Unavailable GABRIEL, OLIMPIA Attending Unavailable GABRIEL, OLIMPIA Attending Unavailable Adamowicz, Jevon Admitting Unavailable Adamowicz, Jevon Attending Unavailable Nghia ROBERSON Admitting Unavailable Nghia ROBERSON Attending Unavailable Antony Blackburn Attending Unavailable Nghia ROBERSON Attending Unavailable Gaviria, Scarlett L Admitting Unavailable Gaviria, Scarlett L Attending Unavailable Adamowicz, Jevon Admitting Unavailable Adamowicz, Jevon Attending Unavailable DOLHARIS VAUGHN Attending Unavailable PETITTI, KONRAD Trujillo Attending Unavailable DOLJOHANA, HARIS Pool Attending Unavailable DOLJOHANA, HARIS Pool Attending Unavailable CLARE MAGUIRE Referring Unavailable CLARE MAGUIRE Attending Unavailable CLARE MAGUIRE Referring Unavailable DOLJOHANA, HARIS Pool Attending Unavailable ADILENE CONDON Attending Unavailable PETITTI, KONRAD Trujillo Attending Unavailable DOLHARIS VAUGHN Attending Unavailable SIMMS, MICHAEL Referring Unavailable GAVIRIA, SCARLETT L Primary Care Unavailable ODALYS ROSA Referring Unavailable GAVIRIA, SCARLETT L Primary Care Unavailable SIMMS, MICHAEL Referring Unavailable GAVIRIA, SCARLETT L Primary Care Unavailable SIMMS, MICHAEL Referring Unavailable GAVIRIA, SCARLETT L Primary Care Unavailable SIMMS, MICHAEL Referring Unavailable GAVIRIA, SCARLETT L Primary Care Unavailable WAZNI, OUSSAMA Referring Unavailable GAVIRIA, SCARLETT L Primary Care Unavailable ALPA RAM Attending Unavailable ALPA RAM Referring Unavailable GAVIRIA, SCARLETT L Primary Care Unavailable ODETTE, ODALYS J Attending Unavailable GAVIRIA, SCARLETT L Primary Care Unavailable ODALYS ROSA J Referring Unavailable GAVIRIA, SCARLETT L Primary Care Unavailable SELF Referring Unavailable ALPA RAM Attending Unavailable GAVIRIA, SCARLETT L Primary Care Unavailable GAVIRIA, SCARLETT L Primary Care Unavailable ANGELI KIMBALL Attending Unavailable WAZNI, OUSSAMA Referring Unavailable GAVIRIA, SCARLETT L Primary Care Unavailable ALPA RAM Attending Unavailable ALPA RAM Admitting Unavailable ALPA RAM Referring Unavailable GAVIRIA, SCARLETT L Primary Care Unavailable ODALYS ROSA J Referring Unavailable GAVIRIA, SCARLETT L Primary Care Unavailable GAVIRIA, SCARLETT L Primary Care Unavailable ALPA RAM Attending Unavailable ALPA RAM Referring Unavailable VEERETTE SCARLETT L Primary Care Unavailable ALPA RAM Attending Unavailable ALPA RAM Admitting Unavailable ALPA RAM Referring Unavailable ALPA RAM Attending Unavailable ALPA RAM Admitting Unavailable ALPA RAM Referring Unavailable GAVIRIA, SCARLETT L Primary Care Unavailable WAZNI, OUSSAMA Referring Unavailable GAVIRIA, SCARLETT L Primary Care Unavailable GAVIRIA, SCARLETT L Primary Care Unavailable MUNTASER, ASMA Referring Unavailable SIMMS, MICHAEL Referring Unavailable GAVIRIA, SCARLETT L Primary Care Unavailable SIMMS, MICHAEL Referring Unavailable GAVIRIA, SCARLETT L Primary Care Unavailable ODALYS ROSA Referring Unavailable GAVIRIA, SCARLETT Nathaniel Primary Care Unavailable WAZNI, OUSSAMA Referring Unavailable WAZNI, OUSSAMA Attending Unavailable GAVIRIA, SCARLETT L Primary Care Unavailable ODALYS ROSA Attending Unavailable EVERETTE, SCARLETT L Primary Care Unavailable ALPA RAM G Referring Unavailable GAVIRIA, SCARLETT L Primary Care Unavailable GAVIRIA, SCARLETT L Primary Care Unavailable ALPA RAM Attending Unavailable ALPA RMA Referring Unavailable Allergies Allergy Classification Reported Allergen(s) Allergy Type Date of Onset Reaction(s) Facility (1 source) Aspirin Drug Allergy 07-18-2019 [facility] (1 source) Ibuprofen Drug Allergy 07-18-2019 [facility] Medications Current Medications Medication Drug Class(es) [...] Acid 7540 MG / POLYETHYLENE GLYCOL 3350 30223 MG / Potassium Chloride 1200 MG / Sodium Ascorbate 76892 MG / Sodium Chloride 3200 MG Powder for Oral Solution) / 1 (POLYETHYLENE GLYCOL 3350 847939 MG / Potassium Chloride 1000 MG / Sodium Chlori (1 source) Osmotic Laxative, Vitamin C Start: 07-16-19 take 1 dose by mouth [...] End: 11-15-2022 take 1 tablet by mouth once daily aspirin, enteric coated (ECOTRIN LOW STRENGTH) 81 mg EC tablet Take 1 tablet by mouth once daily. 30 tablet 5 05/19/2022 Active Comment on above: Take 1 tablet by margie th once daily. atenolol 50 mg oral tablet (20 sources) beta-Adrenergic [place] Start: 0 End: 4 take 1 tablet by mouth once daily atenolol (TENORMIN) 50 mg tablet Indications: HTN (hypertension), benign Take 1 tablet by mouth once daily. 90 tablet 3 11/09/2023 Active Comment on above: Take 1 tablet by marige th once daily. atorvastatin 40 mg oral tablet (20 sources) HMG-CoA Reductase Inhibitor Start: 1 End: 5 take 1 tablet by mouth once daily atorvastatin (LIPITOR) 40 mg tablet Indications: Pain of both shoulder joints , Rotator cuff tear arthropathy of both shoulders Take 1 tablet by mouth once daily. Need appointment for future refills 90 tablet 03/27/2024 Active Start: 01-11-2017 take 10 mg by [...] Start: 09-01-2011 take 1 capsule by [facility] twice daily Irfbmhcumlf-Xtsrnkfbi-Nbm C-Mn 500-400 m g cap Take 1 capsule by mouth twice daily. 0 09/01/2011 Active Comment on above: Take 1 capsule by [facility] twice daily. CoQ10 (20 sources) Start: 5 take 100 mg by mouth three times daily CoQ10 100 mg, Oral, TID, Refills(s) 0, Prophylaxis Start Date: 03/13/15 Status: Ordered diazePAM 10 mg oral tablet (2 sources) Benzodiazepine take 1 tablet by mouth every hour diazePAM (Valium) 10 MG tablet TAKE 1 TABLET BY MOUTH 1 (ONE) HOUR prior to procedure 0 Active DULoxetine 60 mg delayed release oral capsule (20 sources) Serotonin and Norepinephrine Reuptake Inhibitor Start: 4 take 1 capsule by mouth once DULoxetine (CYMBALTA) 60 mg capsule Take 1 capsule by mouth every afternoon. 05/31/2023 Active Start: 10-20-2022 take 1 capsule by [facility] in the morning DULoxetine (Cymbalta) 60 MG [...] mouth once daily. Take 1 capsule by [facility] every afternoon. duloxetine 30 mg Cap-DR (20 [...] Comment on above: Take 1 [facility] with breakfast. fluconazole 200 mg oral tablet (12 sources) Azole Antifungal Start: 2 fluconazole 200 mg Tab 400 mg = 2 tab(s), Oral, Once, Take 400mg x 1 day, then 200mg x 21 days., # 2 tab(s), Refills(s) 0, Pharmacy: [id number], 177, cm, 08/14/21 13:09:00 EDT, Height/Length Dosing, 97.8, kg, 08/14/21 13:09:00 EDT, Weight Dosing Start Date: 08/14/21 Status: Ordered fluticasone propionate 0.05 mg/actuat metered dose nasal spray (20 sources) Corticosteroid Start: take 2 spray(s) nasal route once daily [...] (FLONASE) 50 mcg/actuation nasal spray Use 1 [place] in each nostril once daily. 0 09/01/2016 Active Start: 12-24-2015 fluticasone HF A 44 mcg/inh Inhaler 2 puff(s), Inhalation, BID Allergy symptoms, 10.6 gram, Refill(s) 0, Allergy symptoms Start Date: 12/24/15 Status: Ordered Comment on above: Use 1 [place] in each nostril once daily. Fluticasone Propion-Salmeterol [...] mg tablet Indications: PAF (paroxysmal atrial fibrillation) (HCC) Take 1 tablet by mouth once daily. 90 tablet 3 11/09/2023 Active Start: 11-16-2022 End: 10-19-2023 take 1 tablet by mouth once daily furosemide (LASIX) 20 mg tablet Indications: PAF (paroxysmal atrial fibrillation) (HCC) Take 1 tablet by mouth once daily. 90 tablet 3 11/16/2022 10/19/2023 Discontinued Start: 01-11-2017 End: 11-13-2022 take 1 tablet by mouth once daily furosemide (LASIX) 20 mg tablet Take 1 tablet by mouth once daily. 90 tablet 3 11/12/2022 11/13/2022 Discontinued Comment on above: TAKE 1 TABLET ONCE D AILY Take 1 tablet by [facility] once daily. gabapentin 300 mg oral capsule (15 sources) Anti-epileptic Agent Start: 06-22-2023 End: 08-29-2023 gabapentin 300 mg Cap Refills(s) 0 Start Date: 06/24/23 Status: Ordered Comment on above: Take 1 capsule by [facility] three times a day for 60 days. [...] magnesium) tablet Indications: PAF (paroxysmal atrial fibrillation) ([facility]) Take 1 tablet by mouth once daily. 30 tablet 5 03/09/2021 Active Comment on above: Take 1 tablet by margie once daily. methylPREDNISolone 4 mg oral tablet (1 source) Corticosteroid Start: 01-17-2024 End: 01-17-2024 take 1 tablet by mouth once methylPREDNISolone (Medrol Dospak) 4 MG tablets Indications: Acute Bursitis Take 1 tablet (4 mg) by mouth 1 (one) time for 1 dose Follow schedule on package instructions 1 each 01/17/2024 01/17/2024 Active metoclopramide 10 mg oral tablet (3 sources) Dopamine-2 Receptor Antagonist Start: 01-20-2022 take 1 tablet by mouth once Reglan 10 mg Tab 10 mg = 1 tab(s), Oral, Once, Prior to capsule endoscopy., # 1 tab(s), Refills(s) 0, Pharmacy: [id number], 177, cm, 01/26/22 10:33:00 EDT, Height/Length [...] on above: montelukast 10 mg ta blet Multivitamin-Minerals- Lutein (Multivitamin 50 Plus) Tablet (3 sources) Start: 01-11-2017 Multivitamin-Minerals -Lutein (Multivitamin 50 Plus) Tablet Active 1 TAB PO Daily with lunch January 11, 2017 9:46am Start: 01-11-2017 Multivitamin-M inerals-Lutein (Multivitamin 50 Plus) Tablet Active 1 TAB PO Daily with lunch January 10, 2017 11:00pm [place] 3-Ebn-Thv-Fish Oil ([place]-3) 350 mg-235 mg- 90 mg-597 mg Capsule,Delayed Release(Dr/Ec) (3 sources) Start: 01-11-2017 take 1 capsule by mouth twice daily [place] 6-Mwd-Rix-Fish Oil ([place]-3) 350 mg-235 mg- 90 mg-597 mg Capsule,Delayed Release(Dr/Ec) Active 1000 MG PO Twice daily January 11, 2017 9:47am Start: 01-11-2017 take 1 capsule by [facility] twice daily [place] 4-Eqo-Lem-Fish Oil ([place]-3) 350 mg-235 mg- 90 mg-597 mg Capsule,Delayed Release(Dr/Ec) Active 1000 MG PO Twice daily January 10, 2017 11:00pm omega-3 acid ethyl esters (chcf) 1000 mg oral capsule (20 sources) Start: [...] 04/29/11 Status: Ordered take 2 capsules by [facility] once daily omeprazole (PRILOSEC) 20 mg capsule [...] Dr. Bolaños. Start Date: 07/15/21 Status: Ordered rOPINIRole 1 mg oral tablet (20 sources) Nonergot Dopamine Agonist Start: 08-09-19 take 1 tablet by mouth once daily at bedtime rOPINIRole (REQUIP) 1 mg tablet Take 1 tablet by mouth daily at bedtime. 08/08/2018 Active Start: 07-01-2016 End: 07-10-2019 take 1 tablet by mouth at bedtime Requip 3 mg Tab 3 mg = 1 tab(s), Oral, Bedtime, Refills(s) 0, Other (see comment) Start Date: 07/01/16 Status: Ordered Comment on above: Take 1 tablet by margie th daily at bedtime. sildenafil 100 mg oral tablet (20 sources) Phosphodiesterase 5 Inhibitor Start: 01-26-2022 sildenafil (Viagra) 100 MG tablet TAKE 1 TABLET BY MOUTH 1 (ONE) HOUR BEFORE sexual activity 0 07/04/2022 Active Start: 07-13-2021 sildenafil 100 mg Tab 100 mg = 1 tab(s), Oral, As Directed, 1 hour before sexual activity, # 30 tab(s), Refills(s) 5, Pharmacy: [id number], 177, cm, 07/13/21 11:21:00 EDT, Height/Length [...] BID, # 60 tab(s), Refills(s) 11, Pharmacy: [id number], 177, cm, 07/13/21 11:21:00 EDT, Height/Length Dosing, 94, kg, 07/13/21 11:21:00 EDT, Weight Dosing Start Date: 07/13/21 Status: Ordered Symbicort 80/4.5 inhalation aerosol with adapter (20 sources) Start: 04-21-2021 take 2 puff(s) by inhalation twice daily Symbicort 80/4.5 inhalation aerosol with adapter 2 puff(s), Inhalation, BID, Refill(s) 0, Wheezing Start Date: 04/21/21 Status: Ordered tiZANidine 4 mg oral tablet (20 sources) Central alpha-2 Adrenergic Agonist Start: 07-15-2022 [...] Start: 05-27-2022 take 1 capsule by mo [facility] once daily tolterodine ER (DETROL LA) 4 [...] (20 sources) Phosphodiesterase 5 Inhibitor Start: 07-28-19 Levitra 20 mg Tab 20 mg = 1 tab(s), Oral, As Directed, PRN for erectile dysfunction, 1 hour before sexual activity, # 30 tab(s), Refills(s) 3, Pharmacy: [id number], 177, cm, 07/27/22 11:28:00 EDT, Height/Length Dosing, 94, kg, 07/27/22 11:28:00 EDT, Weight Dosing Start Date: 07/27/22 Status: Ordered Start: 01-26-2022 Levitra 20 mg Tab 20 mg = 1 tab(s), Oral, As Directed, PRN for erectile dysfunction, 1 hour before sexual activity, # 30 tab(s), Refills(s) 3, Pharmacy: [id number], 177, cm, 01/26/22 10:33:00 EDT, Height/Length Dosing, 94, kg, 01/26/22 10:33:00 EDT, Travis... Start Date: 01/26/22 Status: Ordered Completed/Discontinued Medications Medication Drug Class(es) Dates Sig (Normalized) Sig (Original) acetaminophen 325 mg / HYDROcodone bitartrate 5 mg oral tablet (6 sources) Opioid Agonist Start: 09-20-2019 End: 06-20-2023 take 1 tablet by mouth every six hours Hydrocodone-Acetami nophen Discontinued 1 TAB PO Q6H 28 September 20, 2019 June 20, 2023 2:14pm Start: 01-11-2017 End: 07-10-2019 take 2 tablets by mouth every four to six hours Hydrocodone-Acetaminophen ([place]) 5-325 mg tablet Discontinued 2 TAB PO [...] Comment on above: Take 1 tablet by [facility] twice daily. clonazePAM (5 sources) Benzodiazepine Start: [...] 10, 2017 11:00pm July 10, 2019 3:53pm dofetilide 0.5 mg oral capsule (20 sources) Antiarrhythmic Start: 09-25-2022 End: 04-13-2024 take 1 capsule by mouth twice daily dofetilide (TIKOSYN) 500 mcg capsule Indications: Visit for monitoring Tikosyn therapy Take 1 capsule by mouth two times a day. 180 capsule 3 10/03/2023 04/13/2024 Discontinued Start: 03-31-2020 End: 09-21-2022 take 1 capsule by mouth twice daily dofetilide (TIKOSYN) 500 mcg capsule Take 1 capsule by mouth twice daily. 180 capsule 3 07/08/2021 09/21/2022 Discontinued Start: 03-31-2020 take 1 capsule by [facility] twice daily Tikosyn 500 mcg oral capsule 500 mcg = 1 cap(s), Oral, BID, Refills(s) 0, Irregular heartbeat Start Date: 03/31/20 Status: Ordered Comment on above: Take 1 capsule by [facility] twice daily. escitalopram 20 mg oral tablet (5 sources) Serotonin Reuptake Inhibitor Start: 01-12-20 17 End: 07-10-19 20 take 20 mg by mouth once daily Escitalopram Oxalate Discontinued 20 MG PO Daily January 10, 2017 11:00pm July 10, 2019 3:54pm 1 ml fentaNYL 0.05 mg/ml injection (1 source) Opioid Agonist Start: 11-17-19 24 End: 11-17-19 24 fentaNYL 50 mcg/mL injection (SUBLIMAZE) 30 actuat fluticasone furoate 0.1 mg/actuat / vilanterol 0.025 mg/actuat dry powder inhaler (20 sources) Corticosteroid, beta2-Adrenergic Agonist Start: 07-10-19 20 End: 06-20-19 24 take 1 puff(s) by inhalation once daily in the morning Fluticasone Furoate-Vilanterol (Breo Ellipta) 100-25 mcg/dose blister with device Discontinued 1 PUFF INHALATION Every morning July 09, 2019 11:00pm June 20, 2023 2:13pm Start: 11-27-2018 End: 04-13-2022 fluticasone-vilanterol (BREO ELLIPTA) 100-25 mcg/dose inhaler Inhalation, Daily, Refill(s) 0, Asthma 0 11/27/2018 04/13/2022 Discontinued take 1 puff(s) by [facility] once daily fluticasone-vilanterol (BREO ELLIPTA) 100-25 mcg/dose inhaler INHALE 1 PUFF BY MOUTH DAILY Active [...] Comment on above: Take 1 capsule by [facility] twice daily. lidocaine hydrochloride 0.02 mg/mg [...] 11-17-2023 End: 11-17-2023 midazolam (PF) injection (VERSED) Krgny-9-SNH-EPA- Fish Oil (FISH OIL) 1,000 mg (120 mg-180 mg) cap (5 sources) take 1 capsule by mouth twice daily Pzaxo-6-DPU-EPA-F julio c Oil (FISH OIL) 1,000 mg (120 mg-180 mg) cap Take 2 g by mouth twice daily. 0 Active Comment on above: Take 2 g by mouth twice daily. Vfpeu-5-FUG-EPA- Fish Oil 1,000 mg (120 mg-180 mg) cap (20 sources) End: 06-22-2023 take 1 capsule by mouth twice daily Qmnye-5-UQY-EPA-F julio c Oil 1,000 mg (120 mg-180 mg) cap Take 2 g by mouth twice daily. 06/22/2023 Discontinued (Course of therapy completed) End: 06-22-2023 take 1 capsule by mouth twice daily Bjdgg-3-VXR-EPA-Fish Oil 1,000 mg (120 mg-180 mg) cap Take 2 g by mouth twice daily. 0 06/22/2023 Discontinued (Course of therapy completed) take 1 capsule by [facility] twice daily Dyuit-4-ILA-EPA-Fish Oil 1,000 mg (120 mg-180 mg) cap Take 2 g by mouth twice daily. 0 Suspended take 1 capsule by mo [facility] twice daily Ggkbk-8-AQS-EPA-Fish Oil 1,000 mg (120 mg-180 mg) cap Take 2 g by mouth twice daily. 0 Active Comment on above: Take 2 g by mouth tw ice daily. perflutren lipid microspheres 1.3 mL in NaCl (PF) 0.9% 10 mL injection (DEFINITY) (20 sources) Start: 2 End: 4 perflutren lipid microspheres 1.3 mL in NaCl (PF) 0.9% 10 mL injection (DEFINITY) pregabalin 50 mg oral capsule (20 sources) Start: 4 End: 4 take 1 capsule by mouth twice daily pregabalin (LYRICA) 50 mg capsule Indications: 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athy Take 1 capsule by mouth two times a day for 30 days. 60 capsule 11/11/2023 04/12/2024 Discontinued Start: 11-01-2023 take 1 capsule by mo [facility] three times daily pregabalin 50 mg Cap [...] Gabapentin. 90 capsule 1 08/29/2023 11/11/2023 Discontinued 125 ml sodium chloride 9 mg/ml prefilled syringe (20 sources) Start: 04-19-2022 End: 09-14-2023 sodium chloride 0.9 % (flush) 10 mL (BD POSIFLUSH) Comment on above: Inject 2-10 mL intra venously as directed. For Echo procedure Problems Active Problems Problem Classification Problem Date Documented Date Episodic/Chronic Administrative/socia l admission (2 sources) Repeated prescription; [...] Hypercholesterolemia; Translations: [Hyperlipidemia] Onset: 2 07-13-2013 Chronic Esophageal disorders (20 sources) Gastroesophageal reflux disease; Translations: [Gastro-esophageal reflux disease without esophagitis] Onset: 2 Resolved: 3 10-18-2013 Chronic Essential hypertension (20 sources) Hypertensive disorder; [...] of skin, unspecified] Onset: 6 04-27-2021 Chronic Melanomas of skin (2 sources) History of malignant melanoma of the skin; Translations: [Personal history of malignant melanoma of skin] 02-16-2024 Episodic Mood disorders (20 sources) Depression; Translations: [Depressive disorder] Onset: 2 Resolved: 4 11-10-2015 Chronic Mycoses (20 sources) Candidiasis of the esophagus; Translations: [Candidal esophagitis] Onset: 2 08-14-2021 Episodic Osteoarthritis (20 sources) Arthritis; Translations: [Unspecified osteoarthritis, unspecified site] Onset: 6 Resolved: 3 11-10-2015 Chronic Osteoporosis (2 sources) Age-related osteoporosis without current pathological fracture; Translations: [Senile osteoporosis] 06-20-2023 Chronic Other acquired deformities (20 sources) Disorder of shoulder; Translations: [Contracture, unspecified shoulder] Onset: 6 09-08-2016 Chronic Other acquired deformities (3 sources) Lumbar spondylolisthesis; Translations: [Spondylolisthesis, lumbar region] 06-20-2023 Episodic Other acquired deformities (2 sources) Spondylolisthesis, lumbar region; Translations: [Acquired spondylolisthesis] 06-20-2023 Episodic Other and ill-defined heart disease (20 [...] sprain] 09-01-2011 Episodic Other connective tissue disease (3 sources) Bilateral rotator cuff arthropathy of shoulder; Translations: [Unspecified rotator cuff tear or rupture of right shoulder, not specified as traumatic] Episodic Other connective tissue disease (4 sources) Pain in left foot; Translations: [PAIN IN LEFT FOOT] Onset: 3 Episodic Other connective tissue disease (3 sources) Pain of toe of left foot; Translations: [Pain in left toe(s)] 06-14-2023 Episodic Other connective tissue disease (3 sources) Pain of toe of right foot; Translations: [Pain in right toe(s)] 06-14-2023 Episodic Other connective tissue disease (1 source) Enthesopathy of lower limb; Translations: [Other enthesopathy of right foot and ankle] 01-17-2024 Episodic Other connective tissue disease (1 source) Pain in left foot; Translations: [Pain in left foot] 01-17-2024 Episodic Other diseases of kidney and ureters (1 source) Urinary tract obstruction; Translations: [Other obstructive and reflux uropathy] Onset: 2 Episodic Other hereditary and degenerative nervous system conditions (1 source) Restless legs syndrome; Translations: [RESTLESS LEGS SYNDROME] Onset: 2 Chronic Other hereditary and degenerative nervous system conditions (8 sources) Restless legs; Translations: [Restless legs syndrome] [...] limb] 03-13-2015 Chronic Other nervous system disorders (10 sources) Disorder of right median nerve; Translations: [...] stiff 05-05-2017 Episodic Other non-traumatic joint disorders (3 sources) Bilateral shoulder joint pain; Translations: [Pain in right shoulder] Episodic Other non-traumatic joint disorders (8 sources) Arthralgia of the upper arm; Translations: [Pain in unspecified elbow] 01-26-2024 Episodic Other non-traumatic joint disorders (2 sources) Pain in left wrist; Translations: [Pain in left wrist] Onset: 4 Episodic Other nutritional; endocrine; and metabolic disorders (20 sources) Obese class I; Translations: [Obesity, unspecified] Onset: 8 Resolved: 3 01-03-2018 Chronic Other skin disorders (2 sources) Seborrheic keratosis; Translations: [Other seborrheic keratosis] 02-16-2024 Episodic Other skin disorders (2 sources) Actinic keratosis; Translations: [Actinic keratosis] 02-16-2024 Episodic Other skin disorders (2 sources) Lentiginosis; Translations: [Other melanin hyperpigmentation] 02-16-2024 Episodic Other skin disorders (2 sources) Bacterial folliculitis; Translations: [Other specified follicular disorders] 02-16-2024 Episodic Residual codes; unclassified (20 sources) Sleep apnea 07-01-2016 Chronic Comment on above: uses CPap Residual codes; unclassified (10 sources) Obstructive sleep apnea syndrome; Translations: [Obstructive sleep apnea (adult) (pediatric)] 01-26-2024 Chronic Residual codes; unclassified (20 sources) H/O: anticoagulant therapy 02-20-2019 Episodic Residual codes; unclassified (20 sources) Current drinker; Translations: [Alcohol use] Onset: 3 Resolved: 3 09-01-2011 Episodic Residual codes; unclassified (8 sources) Insomnia; Translations: [Insomnia, unspecified] 01-26-2024 Episodic Screening and history of mental health and substance abuse codes (20 sources) Ex-smoker; Translations: [Personal history of nicotine dependence] Onset: 2 Resolved: 3 11-27-2019 Episodic Spondylosis; intervertebral disc disorders; other back problems (20 sources) Other cervical disc degeneration, unspecified cervical region; Translations: [Cervical radiculopathy] Onset: 3 Resolved: 3 01-26-2023 Chronic Unclassified (1 source) Unknown / UNK(Unknown) Onset: [...] Flank pain; Translations: [Unspecified abdominal pain] Onset: 11-04-2021 Resolved: 01-26-2023 11-27-2019 Episodic Acute and unspecified renal failure (2 sources) Acute kidney failure, unspecified; Translations: [ACUTE KIDNEY FAILURE UNSPECIFIED] Onset: 01-12-2022 Episodic Acute posthemorrhagic anemia (1 source) Acute posthemorrhagic anemia; Translations: [ACUTE POSTHEMORRHAGIC ANEMIA] Onset: 01-12-2022 Episodic Conditions associated with dizziness or vertigo (1 source) Dizziness and giddiness; Translations: [DIZZINESS AND GIDDINESS] Onset: 01-12-2022 Episodic Deficiency and other anemia (20 sources) Anemia due to blood loss; Translations: [Iron deficiency anemia secondary to blood loss (chronic)] Onset: 01-26-2023 Resolved: 01-26-2023 01-06-2022 Chronic Deficiency and other anemia (20 sources) Anemia; Translations: [Anemia, unspecified] Onset: 07-27-2021 Resolved: 11-01-2023 Episodic Deficiency and other anemia (2 sources) Anemia, unspecified; Translations: [ANEMIA UNSPECIFIED] Onset: 12-20-2021 Episodic Fluid and electrolyte disorders (1 source) Dehydration; Translations: [DEHYDRATION] Onset: 01-12-2022 Episodic Gastritis and duodenitis (1 source) Gastritis, unspecified, without bleeding; Translations: [GASTRITIS UNS WITHOUT BLEEDING] Onset: 01-12-2022 Episodic Gastrointestinal hemorrhage (20 sources) Melena; Translations: [Melena] Onset: 01-06-2022 Episodic Gout and other crystal arthropathies (13 sources) Primary gout; 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, left wrist] Onset: 01-26-2023 Resolved: 01-26-2023 01-26-2023 Chronic Hyperplasia of prostate (20 sources) Benign prostatic hypertrophy with outflow obstruction; Translations: [Large prostate ] Onset: 09-15-2021 Resolved: 01-26-2023 11-27-2018 Chronic Nonspecific chest pain (9 sources) Chest pain, unspecified; Translations: [Atypical chest pain] Onset: 01-24-2022 Episodic Other acquired deformities (12 sources) Contracture of joint of left ankle; Translations: [Contracture, left ankle] Onset: 01-26-2023 Resolved: 01-26-2023 01-26-2023 Chronic Other acquired deformities (12 sources) Deformity of metatarsal; Translations: [Unspecified acquired deformity of unspecified lower leg] Onset: 01-26-2023 Resolved: 01-26-2023 01-26-2023 Episodic Other aftercare (20 sources) Patient encounter status; Translations: [Encounter for therapeutic drug level monitoring] Onset: 09-06-2018 09-06-2018 Episodic Other aftercare (2 sources) Other senior living (current) drug therapy; Translations: [OTH CARE HOME CURRENT DRUG THERAPY] Onset: 09-06-2018 Episodic Other aftercare (1 source) intermediate (current) use of anticoagulants; Translations: [CARE HOME CURRNT USE ANTICOAGULANTS] Onset: 01-12-2022 Episodic Other aftercare (13 sources) Long-term current use of drug therapy; Translations: [Encounter for therapeutic drug level monitoring] Onset: 09-06-2018 09-06-2018 Episodic Other aftercare (1 source) Encounter for therapeutic drug level monitoring; Translations: [Visit for monitoring Tikosyn therapy] Onset: 09-06-2018 Episodic Other and unspecified benign neoplasm (20 sources) Polyp of colon; Translations: [Polyp of colon] Onset: 01-26-2023 Resolved: 01-26-2023 10-02-2020 Episodic Other and unspecified benign neoplasm (1 source) Personal history of colonic polyps; Translations: [PERSONAL HISTORY OF COLONIC POLYPS] Onset: 01-12-2022 Episodic Other circulatory disease (20 sources) Clearing throat - hawking; Translations: [Other specified symptoms and signs involving the circulatory and respiratory systems] Onset: 12-30-2011 12-30-2011 Episodic Other circulatory disease (1 source) Orthostatic hypotension; Translations: [ORTHOSTATIC HYPOTENSION] Onset: 01-12-2022 Episodic Other connective tissue disease (20 sources) Partial thickness rotator cuff tear Onset: 06-02-2000 07-06-2010 Episodic Other connective tissue disease (20 sources) Rotator cuff tear arthropathy; Translations: [Unspecified rotator cuff tear or rupture of unspecified shoulder, not specified as traumatic] Onset: 05-29-2015 09-08-2016 Episodic Other connective tissue disease (20 sources) Full thickness rotator cuff tear; Translations: [Complete rotator cuff tear or rupture of left shoulder, not specified as traumatic] Onset: 05-29-2015 05-29-2015 Episodic Other connective tissue disease (20 sources) Shoulder girdle weakness; Translations: [Other symptoms and signs involving the musculoskeletal system] Onset: 09-21-2016 09-21-2016 Episodic Other gastrointestinal disorders (20 sources) Ulceration of intestine; Translations: [Ulcer of intestine] Onset: 01-26-2023 Resolved: 01-26-2023 02-17-2022 Episodic Other lower respiratory disease (1 source) Shortness of breath; Translations: [SHORTNESS OF BREATH] Onset: 01-12-2022 Episodic Other lower respiratory disease (1 source) Other forms of dyspnea; Translations: [ANDERSEN (dyspnea on exertion)] Onset: 06-13-2023 Episodic Other non-traumatic joint disorders (20 sources) Shoulder stiff; Translations: [Stiffness of unspecified shoulder, not elsewhere classified] Onset: 08-20-2015 08-20-2015 Episodic Other non-traumatic joint disorders (20 sources) Shoulder pain; Translations: [Pain in right shoulder] Onset: 09-21-2016 09-21-2016 Episodic Other non-traumatic joint disorders (20 sources) Pain in right shoulder; Translations: [Pain in joint, shoulder region] Onset: 09-21-2016 09-21-2016 Episodic Other nutritional; endocrine; and metabolic disorders (20 sources) Body mass index 30+ - obesity; Translations: [Body mass index (BMI) 30.0-30.9, adult] Onset: 01-26-2023 Resolved: 01-26-2023 01-08-2021 Chronic Other screening for suspected conditions (not mental disorders or infectious disease) (20 sources) Raised prostate specific antigen; Translations: [Elevated prostate specific antigen [PSA]] Onset: 01-26-2022 Resolved: 01-26-2023 10-28-2018 Episodic Residual codes; unclassified (1 source) Personal history of other specified conditions; Translations: [PERSONAL HISTORY OTH SPEC CONDITION] Onset: 01-25-2022 Episodic Spondylosis; intervertebral disc disorders; other back problems (20 sources) Pain in cervical spine; Translations: [Cervicalgia] Onset: 01-12-2022 Resolved: 11-01-2023 07-23-2015 Episodic Sprains and strains (20 sources) Rupture of tendon of biceps; Translations: [Strain of muscle, fascia and tendon of long head of biceps, unspecified arm, initial encounter] Onset: 05-29-2015 Resolved: 01-26-2023 05-29-2015 Episodic Unclassified (20 sources) Entire carpal canal (body structure) 11-10-2015 Unclassified (1 source) Exposure to 2019 novel coronavirus; Translations: [Contact with and (suspected) exposure to COVID19] Urinary tract infections (1 source) Urinary tract infection, site not specified; Translations: [UTI SITE NOT SPECIFIED] Onset: 01-12-2022 Episodic Viral infection (20 sources) Measles; Translations: [Mumps] Onset: 01-26-2023 Resolved: 01-26-2023 03-13-2015 Episodic Results Test Name Value Interpretation Reference Range Facility [facility] 04-23-2024 HAYDER Telephone (CARDAV) IRENA PERAZA ([id number]) 1945 Date Time Provider Department 04/23/24 ODALYS ROSA During your visit today, we recorded the following information about you: Caryl Jimenez 04/23/2024 1:44 PM Signed Patient called, leaving a message on procedure space scheduler's voice mail. Feels he is in a fib, inquiring if he may be ordered an EKG locally at [place] or at a [facility] facility to confirm. Please call patient via his cell [phone]. Moustapha Melvin APRN.FOAMITE MIXER 04/23/2024 2:31 PM Signed EKG ordered REMI Jacobs Tamara, APRN.CNP 04/23/2024 2:31 PM Signed Addended by: MOUSTAPHA MELVIN on: 04/23/2024 02:31 PM Modules accepted: Orders Trixie Ely RN 04/23/2024 3:03 PM Addendum Called to let patient know EKG order placed and he said he already went to PCP and had it done. He says he is in afib and did fax it over. He is going home to start his eliquis back up and asks if he will need to reload on his tikosyn inpatient. EKG located on fax scanned into chart. Moustapha Melvin APRN.CNP 04/24/2024 8:42 AM Signed Please call patient. Recommend to start flecainide 100 mg BID. Should present to office next week for EKG or can have EKG locally and have this faxed. Medication sent to [facility] in [place]. Should NOT resume Tikosyn, ever. Thank you! REMI Jacobs Tamara, APRN.CNP 04/24/2024 8:42 AM Signed Addended by: MOUSTAPHA MELVIN on: 04/24/2024 08:42 AM Modules accepted: Orders Akua Lou RN 04/24/2024 10:16 AM Signed Pt went to see Dr. Darien Saldivar and did an EKG and is in A fib. They told him to resume Eluquis and patient has some left over from 2 years ago after having watchman inserted. Started taking it last night. Would like our recommendations if he should continue. Pt will be picking up fleccanide today, educated on the medication and is aware to NOT resume tikosyn. Akua Lou RN 04/24/2024 11:26 AM Signed He should definitely NOT take Eliquis. Did someone call in flecainide? Akua Lou RN 04/24/2024 11:30 AM Signed Patient aware to not taking the eluquis. Pt aware that EKG needs to be done in one week. Akua Lou RN 04/24/2024 11:34 AM Signed EKG from yesterday scanned into chart. Pt will go to his PCP again in one week and have it faxed to us on completion. Allergies As of Date: 04/23/2024 (No Known Allergies) Date Reviewed: 04/12/2024 Reviewed by: Nadir Flaherty LPN - Fully Assessed Reason for Visit: Patient Question [1477] Cmt: A fib confirmation Primary Visit Diagnosis:PAF (paroxysmal atrial fibrillation) ([facility]) [I48.0] Order(s):ECG COMPLETE [ECG01] Order #: [id number] FUTURE flecainide (TAMBOCOR) 100 mg tabletTake 1 tablet by mouth two times a day.Disp: 60 tabletRfl: 2 ECG COMPLETE [ECG01] Order #: [id number] Prescriptions as of 04/24/2024 - flecainide (TAMBOCOR) 100 mg tablet Take 1 tablet by mouth two times a day. - atorvastatin (LIPITOR) 40 mg tablet Take 1 tablet by mouth once daily. Need appointment for future refills - furosemide (LASIX) 20 mg tablet Take 1 tablet by mouth once daily. - atenolol (TENORMIN) 50 mg tablet Take 1 tablet by mouth once daily. - omega-3/dha/epa/fish oil (OMEGA-3 ORAL) Take by mouth. - acetaminophen 650 mg CR tablet Every [...] (FLONASE) 50 mcg/actuation nasal spray Use 1 [place] in each nostril once daily. - coenzyme Q10 100 mg cap Take 100 mg by mouth once daily. - albuterol HFA (PROAIR HFA) 90 mcg/actuation inhaler Inhale 2 Puffs as instructed ever (more content not included)... Normal [facility] ([id number]) 1945 M Date Time Provider Department 04/13/24 ODALYS ROSA CAMONAAV During your visit today, we recorded the following information about you: Odalys Rosa MD 04/13/2024 11:47 AM Signed He came back today for an EKG and the QTc was shorter at 489 ms. K+ and MG++ were normal. I'm not keen on restarting Tikosyn, even at a lower dose, because there's no apparent explanation for the prolongation. He was instructed to DC Tikosyn and we'll deal with AF if and when it recurs. Allergies As of Date: 04/13/2024 (No Known Allergies) Date Reviewed: 04/12/2024 Reviewed by: Nadir Flaherty LPN - Fully Assessed Prescriptions as of 04/13/2024 - atorvastatin (LIPITOR) 40 mg tablet Take 1 tablet by mouth once daily. Need appointment for future refills - furosemide (LASIX) 20 mg tablet Take 1 tablet by mouth once daily. - atenolol (TENORMIN) 50 mg tablet Take 1 tablet by mouth once daily. - omega-3/dha/epa/fish oil (OMEGA-3 ORAL) Take by mouth. - acetaminophen 650 mg CR tablet Every [...] (FLONASE) 50 mcg/actuation nasal spray Use 1 [place] in each nostril once daily. - coenzyme [...] taken prn Problem List As Of Date 04/13/2024 Noted Resolved PAF (paroxysmal atrial fibrillation) ([facility]) [I48* Former smoker [Z87.891] Obstructive lung disease [...] [R29.898] 09/21/2016 Obesity, Class I, BMI 30-34.9 [E66.811] 01/03/2018 Persistent atrial fibrillation (HCC) [I48.19] 07/28/2018 Visit for monitoring Tikosyn therapy [Z51.81, Z*09/06/2018 Gastrointestinal hemorrhage [K92.2] 05/18/2022 IRB 21-1031 [facility] [employer] Evidence (*05/19/2022 Atrial fibrillation (HCC) [I48.91] 05/19/2022 Low back pain, unspecified [M54.50] 01/12/2022 Diagnosed: 06/13/2023 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*09/20/2023 Lumbar radiculopathy [M54.16] 12/20/2023 Lumbar spondylosis [M47.816] 02/14/2024 Medications Discontinued During This Encounter Prescriptions - dofetilide (TIKOSYN) 500 mcg capsule (Discontinued) Take 1 capsule by mouth two times a day. Encounter Status:Closed by ODALYS ROSA on 04/13/24 [facility] ECG COMPLETEon 04-13-2024 ECG COMPLETE Ventricular Rate : 9 2 BPM Atrial Rate : 92 BPM P-R Interval : 208 ms QRS Duration : 80 ms Q-T Interval : 396 ms QTC Calculation(Bazett) : 489 ms Calculated P Baird : 61 degrees Calculated R Baird : 56 degrees Calculated T Baird : 26 degrees SINUS RHYTHM WITH PREMATURE ATRIAL COMPLEXES WITH ABERRANT CONDUCTION PROLONGED QT INTERVAL OR TU FUSION, CONSIDER HYPOKALEMIA ABNORMAL ECG Confirmed by QUIANA CALLES MD ([id number]) on 04/13/2024 12:24:44 PM NAME : IRENA PERAZA PID : [id number] : 1945 Gender : Male Race : ORD : [id number] Procedure Date : Apr 13 2024 11:06:22 Edit Date : Apr 13 2024 12:24:49 Diagnosis: SINUS RHYTHM WITH PREMATURE ATRIAL COMPLEXES WITH ABERRANT CONDUCTION PROLONGED QT INTERVAL OR TU FUSION, CONSIDER HYPOKALEMIA ABNORMAL ECG Confirmed by QUIANA CALLES MD ([id number]) on 04/13/2024 12:24:44 PM Test Reason : I48.0 Paroxysmal atrial fibrillation (HCC) Location : 192 : [facility] Overread By : QUIANA CALLES MD Edited By : UQIANA CALLES MD Referred By : , Acquired by : , Normal [facility] CNOVon 04-12-2024 CNOV Office Visit (CAEPAV ) IRENA PERAZA ([id number]) 1945 M Date Time Provider Department 04/12/24 10:00 AM ODALYS ROSA During your visit today, we recorded the following information about you: Pulse Blood pressure Weight Height 86/minute 118/78 97.5 kg 1.778 m Odalys Rosa MD 04/12/2024 10:39 AM Signed xxx Allergies As of Date: 04/12/2024 (No Known Allergies) Date Reviewed: 04/12/2024 Reviewed by: Nadir Flaherty LPN - Fully Assessed Reason for Visit: Follow Up [171] Primary Visit Diagnosis:Paroxysmal atrial fibrillation (HCC) [I48.0] Order(s):ECG COMPLETE [ECG01] Order #: [id number]. #:[id number]--PWAVu kg ECG COMPLETE [ECG01] Order #: [id number] MAGNESIUM [SQMG1] Order #: [id number] FUTURE RENAL FUNCTION PANEL [SQRFP] Order #: [id number] FUTURE ECG COMPLETE [ECG01] Order #: [id number] FUTURE Prescriptions as of 04/12/2024 - atorvastatin (LIPITOR) 40 mg tablet Take 1 tablet by mouth once daily. Need appointment for future refills - furosemide (LASIX) 20 mg tablet Take 1 tablet by mouth once daily. - atenolol (TENORMIN) 50 mg tablet Take 1 tablet by mouth once daily. - dofetilide (TIKOSYN) 500 mcg capsule Take 1 capsule by mouth two times a day. - omega-3/dha/epa/fish oil (OMEGA-3 ORAL) Take by mouth. - acetaminophen 650 mg CR tablet Every [...] (FLONASE) 50 mcg/actuation nasal spray Use 1 [place] in each nostril once daily. - coenzyme [...] taken prn Problem List As Of Date 04/12/2024 Noted Resolved PAF (paroxysmal atrial fibrillation) (HCC) [...] [R29.898] 09/21/2016 Obesity, Class I, BMI 30-34.9 [E66.811] 01/03/2018 Persistent atrial fibrillation (HCC) [I48.19] 07/28/2018 Visit for monitoring Tikosyn therapy [Z51.81, Z*09/06/2018 Gastrointestinal hemorrhage [K92.2] 05/18/2022 IRB 21-1031 [facility] [employer] Evidence (*05/19/2022 Atrial fibrillation (HCC) [I48.91] 05/19/2022 Low back pain, unspecified [M54.50] 01/12/2022 Diagnosed: 06/13/2023 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*09/20/2023 Lumbar radiculopathy [M54.16] 12/20/2023 Lumbar spondylosis [M47.816] 02/14/2024 Medications Discontinued During This Encounter P (more content not included)... Normal [facility] [id number] 04-12-2024 ECG01 Ventricular Rate : 8 6 BPM Atrial Rate : 86 BPM P-R Interval : 228 ms QRS Duration : 86 ms Q-T Interval : 448 ms QTC Calculation(Bazett) : 536 ms Calculated P Baird : 49 degrees Calculated R Baird : 38 degrees Calculated T Baird : 41 degrees SINUS RHYTHM WITH SINUS ARRHYTHMIA WITH 1ST DEGREE AV BLOCK PROLONGED QT INTERVAL OR TU FUSION, CONSIDER HYPOKALEMIA ABNORMAL ECG Confirmed by CARMELO WHITAKER MD ([id number]) on 04/26/2024 2:12:18 PM NAME : IRENA PERAZA PID : [id number] : 1945 Gender : Male Race : ORD : Procedure Date : Apr 12 2024 10:00:36 Edit Date : Apr 26 2024 14:13:45 Diagnosis: SINUS RHYTHM WITH SINUS ARRHYTHMIA WITH 1ST DEGREE AV BLOCK PROLONGED QT INTERVAL OR TU FUSION, CONSIDER HYPOKALEMIA ABNORMAL ECG Confirmed by CARMELO WHITAKER MD ([id number]) on 04/26/2024 2:12:18 PM Test Reason : Location : 192 : [facility] Overread By : CARMELO WHITAKER MD Edited By : CARMELO WHITAKER MD Referred By : , Acquired by : , Normal [facility] MAGNESIUMon 04-12-2024 Magnesium [Mass/Vol] 2.0 mg/dL 1.7 - 2 .3 mg/dL [facility] Magnesium SerPl-mCncon 04-12 Magnesium [Mass/Vol] 2.0 mg/dL Normal 1.7-2.3 [facility] Comment on above: Order Comment: Speci men Type: BLOOD SPECIMEN Ordering Facility: [facility] Address: [address] [place] [address] Performed By: #### 1 9123-9, 71730-4 #### [facility] CLIA [id number] [address] [place] [address] [place] Magnesium [Mass/Vol]on 04-12 Interpretation and review of laboratory results Normal [facility] No Panel Informationon 04-12 [facility] Renal function 2000 panelon 04-12-2024 Albumin [Mass/Vol] 4.1 g/dL 3.9 - 4.9 g/dL [facility] Anion gap [Moles/Vol] 11 mmol/L 8 - 15 mmol/L [facility] Calcium [Mass/Vol] 9.8 mg/dL 8.5 - 10. 2 mg/dL [facility] Chloride [Moles/Vol] 98 mmol/L 98 - 10 7 mmol/L [facility] CO2 [Moles/Vol] 29 mmol/L 22 - 30 mmol/L [facility] Creatinine [Mass/Vol] 1.07 mg/dL 0.73 - 1.22 mg/dL [facility] GFR/1.73 sq M.predicted among non-blacks MDRD (S/P/Bld) [Vol rate/Area] 71 mL/min/{1.73_m2} - PINF [facility] Comment on above: Estimated Glomerular Filtration Rate (eGFR) is calculated using the 2020 CKD-EPI creatinine equation. This equation utilizes serum creatinine, sex, and age as parameters. The creatinine assay has traceable calibration to isotope dilution-mass spectrometry. Refer to KDIGO guidelines for clinical interpretation. In patients with unstable renal function, e.g. those with acute kidney injury, the eGFR may not accurately reflect actual GFR. Glucose [Mass/Vol] 107 mg/dL High 74 - 99 mg/dL [facility] Comment on above: The [place] Diabete s Association (ADA) provides guidance for cutoff values [...] Standards of Medical Care in Diabetes 2016, [place] Diabetes Association. Diabetes Care. 2016.39(Suppl 1). Interpretation and review of laboratory results Abnormal [facility] Phosphate [Mass/Vol] 2.6 mg/dL Low 2.7 - 4 .8 mg/dL [facility] Potassium [Moles/Vol] 4.2 mmol/L 3.7 - 5.1 mmol/L [facility] Sodium [Moles/Vol] 138 mmol/L 136 - 144 mmol/L [facility] Urea nitrogen [Mass/Vol] 10 mg/dL 9 - 24 mg/dL [facility] Albumin [Mass/Vol] 4.1 g/dL Normal 3.9-4.9 [facility] Comment on above: Order Comment: Speci men Type: BLOOD SPECIMEN Ordering Facility: [facility] Address: [address] [place] [address] Performed By: #### 1 9123-9, 60119-9 #### [facility] CLIA [id number] [address] [place] [address] [place] Anion gap [Moles/Vol] 11 mmol/L Normal 8-15 [facility] Comment on above: Order Comment: Speci men Type: BLOOD SPECIMEN Ordering Facility: [facility] Address: [address] [place] [address] Performed By: #### 1 9123-9, 90083-0 #### [facility] CLIA [id number] [address] [place] [address] [place] Calcium [Mass/Vol] 9.8 mg/dL Normal 8.5-10.2 [facility] Comment on above: Order Comment: Speci men Type: BLOOD SPECIMEN Ordering Facility: [facility] Address: [address] [place] [address] Performed By: #### 1 9123-9, 90347-0 #### [facility] CLIA [id number] [address] [place] [address] [place] Chloride [Moles/Vol] 98 mmol/L Normal 98-107 [facility] Comment on above: Order Comment: Speci men Type: BLOOD SPECIMEN Ordering Facility: [facility] Address: [address] [place] [address] Performed By: #### 1 9123-9, 38437-3 #### [facility] CLIA [id number] [address] [place] [address] [place] CO2 [Moles/Vol] 29 mmol/L Normal 22-30 [facility] Comment on above: Order Comment: Speci men Type: BLOOD SPECIMEN Ordering Facility: [facility] Address: [address] [place] [address] Performed By: #### 1 9123-9, 12677-4 #### [facility] CLIA [id number] [address] [place] [address] [place] Creatinine [Mass/Vol] 1.07 mg/dL Normal 0.73-1.22 [facility] Comment on above: Order Comment: Domenica men Type: BLOOD SPECIMEN Ordering Facility: [facility] Address: [address] [place], [place] [address] [id number] Performed By: #### 1 9123-9, 95086-9 #### [facility] CLIA [id number] [address] [place] [address] [place] Creatinine and Glomerular filtration rate.predicted panel (S/P/Bld) 71 mL/min/1.73m??? Normal >=60 [facility] Comment on above: Order Comment: Domenica [facility] Type: BLOOD SPECIMEN Ordering Facility: [facility] Address: [address] [place] [address] Result Comment: Celia mated Glomerular Filtration Rate [...] actual GFR. Performed By: #### 1 9123-9, 91553-9 #### [facility] CLIA [id number] [address] [place] [address] [place] Glucose [Mass/Vol] 107 mg/dL High 74-99 [facility] Comment on above: Order Comment: Domenica men Type: BLOOD SPECIMEN Ordering Facility: [facility] Address: [address] [place] [address] Result Comment: The [place] Diabetes Association (ADA) provides guidance for cutoff [...] Standards of Medical Care in Diabetes 2016, [place] [employer] Association. Diabetes Care. 2016.39(Suppl 1). Performed By: #### 1 9123-9, 59720-8 #### [facility] CLIA [id number] [address] [place] [address] [place] Phosphate [Mass/Vol] 2.6 mg/dL Low 2.7-4.8 [facility] Comment on above: Order Comment: Speci men Type: BLOOD SPECIMEN Ordering Facility: [facility] Address: [address] [place] [address] Performed By: #### 1 9123-9, 32729-1 #### [facility] CLIA [id number] [place] [address] [place] Potassium [Moles/Vol] 4.2 mmol/L Normal 3.7-5.1 [facility] Comment on above: Order Comment: Speci men Type: BLOOD SPECIMEN Ordering Facility: [facility] Address: [address] [place] [address] Performed By: #### 1 9123-9, 29529-1 #### [facility] CLIA [id number] [address] [place] [address] [place] Sodium [Moles/Vol] 138 mmol/L Normal 136-144 [facility] Comment on above: Order Comment: Speci men Type: BLOOD SPECIMEN Ordering Facility: [facility] Address: [address] [place] [address] Performed By: #### 1 9123-9, 65008-7 #### [facility] CLIA [id number] [address] [place] [address] [place] Urea nitrogen [Mass/Vol] 10 mg/dL Normal 9-24 [facility] Comment on above: Order Comment: Speci men Type: BLOOD SPECIMEN Ordering Facility: [facility] Address: [address] [place] [address] Performed By: #### 1 9123-9, 37998-4 #### [facility] CLIA [id number] [address] [place] [address] [place] CBC w/ Auto Diffon 4 Basophils/100 WBC (Bld) 0.7 % Normal 0.0-2.0 [facility] Comment on above: Performed By: #### 2 852675 #### [facility] [address] [place] [address] Basophils/Leukocytes Auto (Bld) [Pure # fraction] 0.0 E9/L Normal 0.0-0.2 [facility] Comment on above: Performed By: #### 2 747582 #### [facility] [address] [place] [address] Eosinophils (Bld) [#/Vol] 0.2 E9/L Normal 0.0-0.5 [facility] Comment on above: Performed By: #### 2 997526 #### [facility] [address] [place] [address] Eosinophils/100 WBC (Bld) 2.8 % Normal 0.0-8.0 [facility] Comment on above: Performed By: #### 2 506273 #### [facility] [address] [place] [address] Erythrocyte distribution width (RBC) [Ratio] 14.0 % Normal 10.9-14.2 [facility] Comment on above: Performed By: #### 2 558211 #### [facility] [address] [place] [address] Hematocrit (Bld) [Volume fraction] 37.9 % Normal 37.7-49.0 [facility] Comment on above: Performed By: #### 2 726273 #### [facility] [address] [place] [address] Hemoglobin (Bld) [Mass/Vol] 12.9 g/dL Low 13.5-17.5 [facility] Comment on above: Performed By: #### 2 531007 #### [facility] [address] [place] [address] Lymphocytes (Bld) [#/Vol] 0.6 E9/L Low 1.0-4.0 [facility] Comment on above: Performed By: #### 2 562564 #### [facility] [address] [place] [address] Lymphocytes/100 WBC (Bld) 11.2 % Low 14.0-50.0 [facility] Comment on above: Performed By: #### 2 738569 #### [facility] [address] [place] [address] MCH (RBC) [Entitic mass] 32.5 pg Normal 27.0-34.0 [facility] Comment on above: Performed By: #### 2 144405 #### [facility] [address] [place] [address] MCHC (RBC) [Mass/Vol] 33.9 g/dL Normal 31.4-36.0 [facility] Comment on above: Performed By: #### 2 974561 #### [facility] [address] [place] [address] MCV (RBC) [Entitic vol] 95.7 fL Normal 80.0-100.0 [facility] Comment on above: Performed By: #### 2 359026 #### [facility] [address] [place] [address] Monocytes (Bld) [#/Vol] 0.4 E9/L Normal 0.2-1.0 [facility] Comment on above: Performed By: #### 2 596774 #### [facility] [address] [place] [address] Neutrophils (Bld) [#/Vol] 4.6 E9/L Normal 2.0-7.5 [facility] Comment on above: Performed By: #### 2 848437 #### [facility] [address] [place] [address] Neutrophils/100 WBC (Bld) 78.5 % High 36.0-75.0 [facility] Comment on above: Performed By: #### 2 047303 #### [facility] [address] [place] [address] Platelet 241.0 E9/L Normal 150.0-500.0 [facility] Comment on above: Performed By: #### 2 782782 #### [facility] [address] [place] [address] Platelet mean volume (Bld) [Entitic vol] 7.4 fL Normal 6.4-10.8 [facility] Comment on above: Performed By: #### 2 355101 #### [facility] [address] [place] [address] RBC (Bld) [#/Vol] 4.0 E12/L Low 4.3-5.9 [facility] Comment on above: Performed By: #### 2 682047 #### [facility] [address] [place] [address] WBC corrected for nucl RBC Auto (Bld) [#/Vol] 5.8 E9/L Normal 4.0-11.0 [facility] Comment on above: Performed By: #### 2 567723 #### [facility] [address] [place] [address] CHEMISTRYOrdered By: SYSTEM SYSTEM on 03-09-2024 Albumin [Mass/Vol] 4.2 g/dL Normal 3.3 - 5.0 gm/dL [facility] Albumin/Globulin [Mass ratio] 1.6 {ratio} Normal 1.1 - 2.2 [facility] ALP [Catalytic activity/Vol] 69 [iU]/d Normal 21 - 98 Int._Unit/L [facility] ALT No additional P-5'-P [Catalytic activity/Vol] 11 [iU]/d Normal 6 - 46 Int._Unit/L [facility] Anion gap [Moles/Vol] 12 mmol/L Normal 6 - 16 mEq/L R [facility] AST [Catalytic activity/Vol] 15 [iU]/d Normal 5 - 43 Int._Unit/L [facility] Bilirubin [Mass/Vol] 0.4 mg/dL Normal 0.0 - 1 .1 mg/dL [facility] Calcium [Mass/Vol] 9.4 mg/dL Normal 8.9 - 11. 1 mg/dL [facility] Chloride [Moles/Vol] 101 mmol/L Normal 101 - 1 11 mmol/L [facility] CO2 [Moles/Vol] 28 mmol/L Normal 21 - 31 mmol/L [facility] Creatinine [Mass/Vol] 0.9 mg/dL Normal 0.5 - 1.3 mg/dL [facility] eGFR 87 mL/min/1.73 m2 Normal >=59mL/min /1 .73 m2 [facility] Ferritin [Mass/Vol] 356 ng/mL High 24 - 336 ng/mL [facility] Globulin (S) [Mass/Vol] 2.6 g/dL Normal 1.4 - 4.0 gm/dL [facility] Glucose [Mass/Vol] 133 mg/dL Normal 55 - 199 mg/dL [facility] Iron [Mass/Vol] 68 ug/dL Normal 35 - 153 mcg/dL [facility] Iron binding capacity [Mass/Vol] 389 ug/dL Normal 250 - 400 mcg/dL [facility] Iron saturation [Mass fraction] 17 % Low 20 - 50 % [facility] Potassium [Moles/Vol] 3.9 mmol/L Normal 3.5 - 5.3 mmol/L [facility] Protein [Mass/Vol] 6.8 g/dL Normal 6.0 - 7.8 gm/dL [facility] Sodium [Moles/Vol] 137 mmol/L Normal 135 - 145 mmol/L [facility] Transferrin [Mass/Vol] 278 mg/dL Normal 200 - 370 mg/dL [facility] Urea nitrogen [Mass/Vol] 16 mg/dL Normal 5 - 21 mg/dL [facility] Urea nitrogen/Creatinine [Mass ratio] 18 mg/mg Normal 10 - 20 [facility] CMPon 03-09-2024 Albumin [Mass/Vol] 4.2 g/dL Normal 3.3-5.0 [facility] Comment on above: Performed By: #### 2 709463 #### [facility] [address] [place] [address] Albumin/Globulin (S) [Mass conc ratio] 1.6 Normal 1.1-2.2 [facility] Comment on above: Performed By: #### 2 943282 #### [facility] [address] [place] [address] ALP [Catalytic activity/Vol] 69 Int._Unit/L Normal 21-98 [facility] Comment on above: Performed By: #### 2 097095 #### [facility] [address] [place] [address] ALT No additional P-5'-P [Catalytic activity/Vol] 11 Int._Unit/L Normal 6-46 [facility] Comment on above: Performed By: #### 2 676932 #### [facility] [address] [place] [address] Anion gap [Moles/Vol] 12 mmol/L Normal 6-16 [facility] Comment on above: Performed By: #### 2 287918 #### [facility] [address] [place] [address] AST [Catalytic activity/Vol] 15 Int._Unit/L Normal 5-43 [facility] Comment on above: Performed By: #### 2 604144 #### [facility] [address] [place] [address] Bilirubin [Mass/Vol] 0.4 mg/dL Normal 0.0-1.1 [facility] Comment on above: Performed By: #### 2 543672 #### [facility] [address] [place] [address] Calcium [Mass/Vol] 9.4 mg/dL Normal 8.9-11.1 [facility] Comment on above: Performed By: #### 2 509629 #### [facility] [address] [place] [address] Chloride [Moles/Vol] 101 mmol/L Normal 101-111 [facility] Comment on above: Performed By: #### 2 141581 #### [facility] [address] [place] [address] CO2 [Moles/Vol] 28 mmol/L Normal 21-31 [place] Comment on above: Performed By: #### 2 305500 #### [facility] [address] [place] [address] Creatinine [Mass/Vol] 0.9 mg/dL Normal 0.5-1.3 [facility] Comment on above: Performed By: #### 2 881828 #### [facility] [address] [place] [address] Globulin (S) [Mass/Vol] 2.6 g/dL Normal 1.4-4.0 [facility] Comment on above: Performed By: #### 2 167901 #### [facility] [address] [place] [address] Glucose [Mass/Vol] 133 mg/dL Normal 55-199 [facility] Comment on above: Performed By: #### 2 293263 #### [facility] [address] [place] [address] Potassium [Moles/Vol] 3.9 mmol/L Normal 3.5-5.3 [facility] Comment on above: Performed By: #### 2 178542 #### [facility] [address] [place] [address] Protein [Mass/Vol] 6.8 g/dL Normal 6.0-7.8 [facility] Comment on above: Performed By: #### 2 906138 #### [facility] [address] [place] [address] Sodium [Moles/Vol] 137 mmol/L Normal 135-145 [facility] Comment on above: Performed By: #### 2 436829 #### [facility] [address] [place] [address] Urea nitrogen [Mass/Vol] 16 mg/dL Normal 5-21 [facility] Comment on above: Performed By: #### 2 471282 #### [facility] [address] [place] [address] Urea nitrogen/Creatinine [Mass ratio] 18 No Units Normal 10-20 [facility] Comment on above: Performed By: #### 2 981978 #### [facility] [address] [place] [address] Ferritinon 03-09-2024 Ferritin [Mass/Vol] 356 ng/mL High 24-336 [facility] Comment on above: Performed By: #### 2 931148 #### [facility] [address] [place] [address] HEMATOLOGYOrdered By: SYSTEM SYSTEM on 03-09-2024 Basophils/100 WBC (Bld) 0.7 % Normal 0.0 - 2.0 % [facility] Basophils/Leukocytes Auto (Bld) [Pure # fraction] 0.0 E9/L Normal 0.0 - 0.2 E9/L [facility] Eosinophils (Bld) [#/Vol] 0.2 E9/L Normal 0.0 - 0.5 E9/L [facility] Eosinophils/100 WBC (Bld) 2.8 % Normal 0.0 - 8.0 % [facility] Erythrocyte distribution width (RBC) [Ratio] 14.0 % Normal 10.9 - 14.2 % [facility] Hematocrit (Bld) [Volume fraction] 37.9 % Normal 37.7 - 49.0 % [facility] Hemoglobin (Bld) [Mass/Vol] 12.9 g/dL Low 13.5 - 17.5 gm/dL [facility] Lymphocytes (Bld) [#/Vol] 0.6 E9/L Low 1.0 - 4.0 E9/L [facility] Lymphocytes/100 WBC (Bld) 11.2 % Low 14.0 - 50.0 % [facility] MCH (RBC) [Entitic mass] 32.5 pg Normal 27.0 - 34.0 pg [facility] MCHC (RBC) [Mass/Vol] 33.9 g/dL Normal 31.4 - 36.0 gm/dL [facility] MCV (RBC) [Entitic vol] 95.7 fL Normal 80.0 - 100.0 fL [facility] Monocytes (Bld) [#/Vol] 0.4 E9/L Normal 0.2 - 1.0 E9/L [facility] Monocytes/100 WBC (Bld) 6.8 % Normal 4.0 - 14.0 % [facility] Neutrophils (Bld) [#/Vol] 4.6 E9/L Normal 2.0 - 7.5 E9/L [facility] Neutrophils/100 WBC (Bld) 78.5 % High 36.0 - 75.0 % [facility] Platelet 241.0 E9/L Normal 150.0 - 500.0 E9/L [facility] Platelet mean volume (Bld) [Entitic vol] 7.4 fL Normal 6.4 - 10.8 fL [facility] RBC (Bld) [#/Vol] 4.0 E12/L Low 4.3 - 5.9 E12/L [facility] WBC corrected for nucl RBC Auto (Bld) [#/Vol] 5.8 E9/L Normal 4.0 - 11.0 E9/L [facility] Ironon 03-09-2024 Iron [Mass/Vol] 68 microgram/dL Normal 35-153 [facility] Comment on above: Performed By: #### 2 236524 #### [facility] [address] [place] [address] Iron Saturationon 03-09-2024 Iron binding capacity [Mass/Vol] 389 microgram/dL Normal 250-400 [facility] Comment on above: Performed By: #### 2 242319 #### [facility] [address] [place] [address] Iron saturation [Mass fraction] 17 % Low 20-50 [facility] Comment on above: Performed By: #### 2 264955 #### [facility] [address] [place] [address] Transferrinon 03-09-2024 Transferrin [Mass/Vol] 278 mg/dL Normal 200-370 [facility] Comment on above: Performed By: #### 2 560413 #### [facility] [address] [place] [address] eGFRon 03-09-2024 eGFR 87 mL/min/1.73 m2 Normal >=59 [facility] Comment on above: Performed By: #### 1 1923350 #### [facility] [address] [place] [address] No Panel Informationon 02-15 [facility] Follow-Upon 02-15-2024 Follow-Up [id number] Irena Peraza Jr. 1945 M Date Provider Department Center 02/15/2024 FreemanAMBREEN RIOSIVIS [facility] No family history on file Level of Service:69842 OR OFFICE/OUTPATIENT ESTABLISHED LOW MDM 20 MIN (GC) Reason for Visit and Comments: Follow-up [811587] Pain [136] [facility] 36on 02-14-2024 36 Left message for Elmer to return my call. I received his MRI results and was calling to schedule follow up. Please schedule next available for MRI follow up or you can transfer his call to me. He will need to bring a CD with him with MRI results for follow up, FYI. Thank you. [facility] Basic metabolic 2000 panelon 02-14-2024 Anion gap [Moles/Vol] 15 mmol/L Normal 8-15 [facility] Comment on above: Order Comment: Speci men Type: BLOOD SPECIMENOrdering Facility: [facility] Address: [address] [place] [address] Performed By: #### 2 432-2, ####[facility] [id number] [place] [address] [place] Calcium [Mass/Vol] 10.5 mg/dL High 8.5-10.2 [facility] Comment on above: Order Comment: Speci men Type: BLOOD SPECIMENOrdering Facility: [facility] Address: [address] [place] [address] Performed By: #### 2 4321-2, ####[facility] [id number] [place] [address] [place] Chloride [Moles/Vol] 100 mmol/L Normal 98-107 [facility] Comment on above: Order Comment: Speci men Type: BLOOD SPECIMENOrdering Facility: [facility] Address: [address] [place], [place] [address] Performed By: #### 2 4321-2, ####[facility] [id number] [place] [address] [place] CO2 [Moles/Vol] 26 mmol/L Normal 22-30 [facility] Comment on above: Order Comment: Speci men Type: BLOOD SPECIMENOrdering Facility: [facility] Address: [address] [place] [address] Performed By: #### 2 4321-2, ####[facility] [id number] [place] [address] [place] Creatinine [Mass/Vol] 1.03 mg/dL Normal 0.73-1.22 [facility] Comment on above: Order Comment: Speci men Type: BLOOD SPECIMENOrdering Facility: [facility] Address: [address] [place] [address] Performed By: #### 2 4321-2, ####[facility] [id number] [place] [address] [place] Creatinine and Glomerular filtration rate.predicted panel (S/P/Bld) 74 mL/min/1.73m??? Normal >=60 [facility] Comment on above: Order Comment: Speci men Type: BLOOD SPECIMENOrdering Facility: [facility] Address: [address] [place] [address] Result Comment: Celia mated Glomerular Filtration Rate [...] reflect actual GFR. Performed By: #### 2 4321-2, ####[facility] [id number] [address] [address] [place] Glucose [Mass/Vol] 79 mg/dL Normal 74-99 [facility] Comment on above: Order Comment: Speci men Type: BLOOD SPECIMENOrdering Facility: [facility] Address: [address] [place] [id number] Result Comment: The [place] Diabetes Association (ADA) provides guidance for cutoff [...] Standards of Medical Care in Diabetes 2016, [place] [employer]. Diabetes Care. 2016.39(Suppl 1). Performed By: #### 2 4320-06, ####[facility] [id number] [place] [address] [place] Potassium [Moles/Vol] 4.3 mmol/L Normal 3.7-5.1 [facility] Comment on above: Order Comment: Speci men Type: BLOOD SPECIMENOrdering Facility: [facility] Address: [address] [place] [address] Performed By: #### 2 4320-06, ####[facility] [id number] [place] [address] [place] Sodium [Moles/Vol] 141 mmol/L Normal 136-144 [facility] Comment on above: Order Comment: Speci men Type: BLOOD SPECIMENOrdering Facility: [facility] Address: [address] [place] [address] Performed By: #### 2 43205-03, ####[facility] [id number] [place] [address] [place] Urea nitrogen [Mass/Vol] 13 mg/dL Normal 9-24 [facility] Comment on above: Order Comment: Speci men Type: BLOOD SPECIMENOrdering Facility: [facility] Address: [address] [place] [address] Performed By: #### 2 4321-2, 71523-1 ####[facility] [id number] [address] [place] HISTORY PHYSICALon HISTORY PHYSICAL HNO ID: [id number] Author: JULIO BARRETO APRN.[employer] Service: ? Author Type: Nurse Practitioner Type: H&P Filed: 02/14/2024 12:30 Note Text: LOCAL PROCEDURE HISTORY AND PHYSICAL EXAM SERVICE DATE: 02/14/2024 SERVICE TIME: 12:29 PM Provisional Diagnosis/Treatment Plan: Lumbar spondylosis [M47.816] Subjective HPI: This is a 79 year old male who presents for scheduled BLOCK MEDIAL BRANCH LUMBAR WITH C-ARM, BLOCK MEDIAL BRANCH LUMBAR EACH ADDITIONAL VERTEBRA 2 W/IMAGE GUIDANCE FLUORO OR CT today. Patient denies recent illnesses, fevers, chills, cough, SOB, CP, palpitations, or fluttering. MEDICATIONS: Prior to Admission medications as of [...] (FLONASE) 50 mcg/actuation nasal spray Use 1 [place] in each nostril once daily. coenzyme Q10 [...] and S2; no rubs, murmurs, or gallops EXTREMITIES: Left wrist and hand with significant, non pitting edema. Wrist is warm, all 5 finger tips cool with delayed cap refill There were no vitals taken for this visit. PAIN ASSESSMENT: PAIN EVALUATION No data found in the last 1 encounters. Assessment/Plan Active Problems: Medication and Non-Pharmacologic VTE Prophylaxis/Anticoagu lants VTE Prophylaxis: NA SIGNATURE: Julio Barreto APRN.CNP PATIENT NAME: Irena Peraza DATE: February 14, 2024 TIME: 12:29 PM PAGER: Normal [facility] Magnesium SerPl-mCncon 02-13 Magnesium [Mass/Vol] 1.9 mg/dL Normal 1.7-2.3 [facility] Comment on above: Order Comment: Speci men Type: BLOOD SPECIMENOrdering Facility: [facility] Address: [address] [place] [address] Performed By: #### 2 4321-2, 37388-8 ####[facility] [id number] [facility] [place] [address] [place] OPERATIVE NOon 02-14-2024 OPERATIVE NO HNO ID: [id number] Author: ALPA RAM DO Service: Physical Medicine AND Rehabilitation Author Type: Physician Type: Operative Report Filed: 02/14/2024 13:37 Note Text: PROCEDURE REPORT Surgery/Procedure Date: February 14, 2024 Interventionalist: Alpa Ram DO Procedure(s): Bilateral L3 and L4 medial branch and L5 dorsal rami diagnostic blocks for the bilateral L4-5 and L5-S1 facet joints. Pre-Op/Pre-Procedure Diagnosis: Lumbar spondylosis Post-Op Diagnosis: same SUBJECTIVE: Irena Peraza is a 79 year old male, who presents to the [facility] ambulatory surgery center for medial branch blocks at the Bilateral L3 and L4 medial branch and L5 dorsal rami levels. 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 Pain is bilateral low back. Pain today is 2-3/10, but with aggravating movements including bending, the pain can get up to 9/10. I have reviewed the nurses notes and am aware of the past medical, surgical, family and social history. Available spine imaging was reviewed. IV access was not established. Objective: Vital signs are documented in the chart by nursing prior to and throughout the procedure. INFORMED CONSENT: Informed consent was obtained and signed electronically. We discussed the risks, benefits, alternative treatment options, staff participating in procedure and equipment to be used. Sign in and time out were performed prior to administration of any medications and prior to initiation of procedure. PROCEDURE: Procedure : bilaterally L3, L4 medial branch nerves and L5 dorsal rami. Medial Branch Blocks Irena Peraza was transferred to the Procedure Room. After placement of routine monitors, the procedure was performed in the usual manner. SEDATION: No Level: bilaterally L3, L4 medial branch nerves and L5 dorsal rami. Technique: Skin was anesthetized bilaterally with 1% lidocaine at each successive injection site at the Bilateral L3 and L4 medial branch and L5 dorsal rami levels. A #22 gauge spinal needle was positioned at each level using C arm guidance. Proper needle position was verified in at least two views. Aspiration was performed which revealed no evidence blood or cerebrospinal fluid. Then injection of 0.25 cc of iohexol contrast was performed at level which revealed no vascular pattern of contrast flow. Then 0.5cc of 0.5% Bupivacaine was administered at each level. The needles were then removed and patient experienced no paresthesias or limb pain immediately post injection. Adequate hemostasis was obtained at the needle puncture site. The patient's back was cleaned and a sterile dressing was applied. Patient tolerated the procedure welland was taken conscious and in stable condition to the recovery room for observation. No complications as a result of this procedure. Post procedure precautions and instructions were reviewed with the patient who verbalized understanding. No complications were encountered. Estimated blood loss: none Specimens: none Implanted devices: none Drains: none Procedure Start Time: 1309 Procedure End Time: 1334 Fluoroscopy time: 40 seconds He tolerated the procedure well and was then taken to the Post-block Recovery Area for further observation. I/primary surgeon/proceduralist performed the procedure alone. Post procedure physical exam unchanged from pre procedure. Significant findings: Cephalad 15 to better visualize L4, L5 vertebrae Oblique 15 right for L3, L4 Oblique 20 left for L3, L4 AP on right for L5 Oblique 10 on left for L5 ASSESSMENT: Pre Procedure diagnosis: Lumbar spondylosis Post-Procedure diagnosis: same Pre Procedure Pain Level: [...] discharged home in stable condition. Alpa Ram, DO Normal [facility] Clinical Summaryon 10-13- 2024 ED Clinical Summary ED Clinical Summary [address] [address] ED Clinical Summary Person Information Name: IRENA PERAZA/El Age: 79 Years : 1945 Sex: Male Language: Bulgarian PCP: Scarlett Gaviria CNP Marital Status: Visit Id: Visit Reason: Ankle pain-swelling; RIGHT ANKLE PAIN Speciality: Acuity: 4 Enc Type: Emergency Med Service: Emergency Arrival: 02/12/2024 10:45:49 Discharge: 02/12/2024 13:31:16 LOS: 000 02:46 Checkin: 02/12/2024 10:45:49 Checkout: 02/12/2024 13:31:16 Dispo Type: Home (Routine DC) EVENTS: Event Name Event Status Request Date/Time Start Date/Time Complete Date/Time Arrive Complete 02/12/2024 10:45:49 02/12/2024 10:45:49 02/12/2024 10:45:49 Document Home Meds Request 02/12/2024 10:45:49 Triage Complete 02/12/2024 10:45:49 02/12/2024 11:05:52 02/12/2024 11:05:52 Registration Complete 02/12/2024 10:50:53 02/12/2024 10:50:53 02/12/2024 10:50:53 Reg Complete Request 02/12/2024 10:50:53 Reg Bed Request Complete 02/12/2024 10:50:53 02/12/2024 10:50:53 02/12/2024 10:50:53 Bed Assign Complete 02/12/2024 11:06:15 02/12/2024 11:06:15 02/12/2024 11:06:15 Dr Exam Complete 02/12/2024 11:06:15 02/12/2024 11:07:42 02/12/2024 11:07:42 RN Exam Complete 02/12/2024 11:06:15 02/12/2024 11:31:11 02/12/2024 11:31:11 Registration Complete 02/12/2024 11:07:42 02/12/2024 11:19:25 02/12/2024 11:19:25 Dr Exam Complete 02/12/2024 11:09:18 02/12/2024 11:09:18 02/12/2024 11:09:18 X-Ray Complete 02/12/2024 11:11:23 02/12/2024 11:20:51 02/12/2024 11:31:58 Wet Read Request 02/12/2024 11:31:58 X-Ray Complete 02/12/2024 11:48:01 02/12/2024 12:04:23 02/12/2024 12:18:15 Meds Admin Complete 02/12/2024 13:05:17 02/12/2024 13:20:46 Patient Care Complete 02/12/2024 13:05:17 02/12/2024 13:30:10 Discharge Complete 02/12/2024 13:05:53 02/12/2024 13:31:21 02/12/2024 13:31:21 Transfer Complete 02/12/2024 13:31:21 02/12/2024 13:31:21 02/12/2024 13:31:21 ADDRESS: [address] [place] [phone] PHYS DOC NOTES: MEDICAL INFORMATION: Prescriptions Given: Medications to Continue with No Changes Other Medications allopurinol (allopurinol 100 mg Tab) 1 Tablets By Mouth every day. aspirin atenolol 50 Milligram By Mouth every day. atorvastatin (Lipitor 40 mg Tab) 1 Tablets By Mouth every day. budesonide-formoterol (Symbicort 80/4.5 inhalation aerosol with adapter) 2 Puffs Inhalation 2 times a day. calcium citrate 1,500 Milligram By Mouth 2 times a day. calcium-vitamin D 1 tab By Mouth every day. chondroitin-glucosami ne (Chondroitin-Glucosam ine) 1 Capsules By Mouth every day. dofetilide (Tikosyn 500 mcg oral capsule) 1 Capsules By Mouth 2 times a day. duloxetine (duloxetine 30 mg Cap-DR) 30 Milligram By Mouth every day. fenofibrate (fenofibrate 160 mg oral tablet) 1 Tablets By Mouth every day. fluticasone (fluticasone HFA 44 mcg/inh Inhaler) 2 Puffs Inhalation 2 times a day as needed Allergy symptoms. fluticasone nasal (Flonase) 1 Sprays Nasal Inhalation every day as needed Allergy symptoms. gabapentin (gabapentin 300 mg Cap) montelukast (montelukast 10 mg Tab) 1 Tablets By Mouth every day. omega-3 polyunsaturated fatty acids (Lovaza) 1,000 Milligram By Mouth 2 times a day. omeprazole (omeprazole 40 mg Cap-EC) 1 Capsules By Mouth every other day as needed Control of stomach acid. usually 4-5 times a week. pregabalin (pregabalin 50 mg Cap) 1 Capsules By Mouth 3 times a day. TAKE 1 CAPSULE BY MOUTH AT BEDTIME FOR 3 DAYS, then TAKE 1 CAPSULE IN THE MORNING and ONE CAPSULE at NIGHT FOR 3 DAYS, then INCREASE to ONE CAPSULE THREE TIMES DAILY if tolerating well. ropinirole (Requip 3 mg Tab) 1 Tablets By Mouth at bedtime. tizanidine (tiZANidine 4 mg Tab) tolterodine (tolterodine 4 mg Cap-ER) 1 Capsules By Mouth every day. Refills: 2. ubiquinone (CoQ10) 100 Milligram By Mouth 3 times a day. vardenafil (Levitra 20 mg Tab) 1 Tablets By Mouth As Directed as needed for erectile dysfunction. 1 hour before sexual activity. Refills: 3. PATIENT EDUCATION INFORMATION: Instructions: Ankle Sprain Follow up: With: Address: When: Scarlett Gaviria [address] [place] [address], [address] [place] [id number] [employer] ([employer] In 3 days 02/15/2024 DIAGNOSIS: Right ankle sprain; Right foot sprain Normal [facility] ED Note-Physicianon 02-12-20 ED Note-Physician ED Note-Physician Basic Information Time Seen: Harry Wood PA-C 02/12/2024 11:07 Chief Complaint Pt rolled R ankle last night. Pt. denies fall, but having immese pain in that ankle. History of Present Illness Patient is a 79-year-old male who presents today for evaluation of his right ankle pain status post rolling it last night. Patient states that he did not fall but he rolled the ankle and is now having immense pain and swelling in that ankle. He denies any previous injury or surgery to this ankle. He states that he does have some pain extending into the foot as well. It is getting hard for him to bear weight. He has not taken anything for it at this time. He denies any knee pain. Review of Systems No other aggravating or relieving factors no other associated symptoms no other prior treatments or complaints. Family: Reviewed and noncontributory Social: lives at home Review of systems negative unless otherwise specified in the HPI. Physical Exam Vitals & Measurements T: 37.6 ?C(Oral) HR: 115(Peripheral) RR: 16 BP: 156/78 SpO2: 97% HT: 117 cm WT: 97.5 kg BMI: 71.23 Vital Signs reviewed and noted. General: Alert, no acute distress, patient resting comfortably Skin: warm, intact, no pallor noted Head: Normocephalic, atraumatic Eye: Normal conjunctiva Cardiac: Normal peripheral perfusion Respiratory: No acute distress Musculoskeletal: Tenderness to palpation and swelling over the lateral malleolus. There is no tenderness over the medial malleolus. No instability in the joint. No tenderness over the base of the fifth metatarsal foot. There is some mild proximal fibular tenderness. Tenderness to the bottom of the foot as well. Neurovascularly intact distally. Neurological: alert and oriented, normal sensory and motor observed. Psychiatric: Cooperative Medical Decision Making Patient is a 79-year-old male who presents today for evaluation of his right ankle pain status post rolling it last night. He did not fall but rolled his ankle in an inversion mechanism. On exam the patient has tenderness to palpation and swelling over the lateral malleolus. No instability in the joint. No tenderness over the base of the fifth metatarsal. Some proximal fibular tenderness. Tenderness to the bottom of foot as well. Neurovascular intact distally. X-rays of the ankle, foot, tib-fib are negative for any acute fracture or dislocation. Patient likely has a right ankle/foot sprain. He is not able to take anti-inflammatories and therefore we will stick with Tylenol as needed for pain. Provide him with a dose of Tylenol here in the ED. We have provided him with an Aircast as well as an Bassam wrap and he will be weightbearing as tolerated. Return to ED precautions were reviewed with the patient at length. Assessment/Plan Right ankle sprain (S93.401A: Sprain of unspecified ligament of right ankle, initial encounter) Right foot sprain (S93.601A: Unspecified sprain of right foot, initial encounter) Orders: acetaminophen, 975 mg = 3 tab(s), Tab, Oral, Once, Stop date 02/12/24 13:04:00 EDT, STAT, Start date 02/12/24 13:04:00 EDT, 02/12/24 13:04:00 EDT Air Cast XR Ankle 3+ Views Right XR Foot 3+ Views Right XR Tib/Fib Right 2 View Medications Administered Given acetaminophen 325 mg Tab, 975 mg, Oral Disposition Plan Patient Discharge Condition Stable Discharge Disposition Home Discharge Prescription List Prescriptions No active prescription medications Follow-up With When Contact Information Scarlett Everette In 3 days 02/15/2024 EDT [address] [facility], [address] Business (1) Additional Instructions: Patient Education Ankle Sprain Attestation Patient seen and evaluated by the physician computer lab assistant. Attending physician was present in the emergency department and supervised care. This visit was performed by both the physician and an APC. I performed all aspects of the MDM as documented. This report was transcribed using voice recognition software. Every effort was made to ensure accuracy, however, inadvertently computerized aircraft armorer mistakes may be present. Appropriate healthcare PPE was used in evaluating this patient. The patient was placed in a mask. The healthcare provider was wearing mask, gloves, and utilizing proper hand hygiene. All equipment was properly cleansed. I performed a substantive part of the MDM during the patient?s E/M visit. I personally made or approved the documented management plan and acknowledge its risk of complications. (Independent Interpretation) My (EKG/X-Ray/US/CT as applicable) interpretation as above. (Discussion) Management/test interpretation discussed with APC. Problem List/Past Medical History Ongoing Afib Anemia Anemia due to gastrointestinal blood loss Anemia due to GI blood loss BMI 30.0-30.9,adult BPH with urinary obstruction Cancer Carpal tunnel syndrome Colon polyps Depression Discectomy Elevated PSA (more content not included)... Normal [facility] Comment on above: Result Comment: Elec tronically Signed By: Harry Wood PA-C\.br\Date and Time Signed: 02/12/24 16:07 EDT\.br\Electronically Co-Signed By: Antony Blackburn DO\.br\Date and Time Co-Signed: 02/12/24 17:12 EDT ED Patient Summaryon 024 ED Patient Summary ED Patient Summary [address] [address] Patient Discharge Instructions Person Information Name: IRENA PERAZA Age: 79 Years Arrival Date: 02/12/2024 10:45:49 Discharge Diagnosis: Right ankle sprain; Right foot sprain Primary Care Physician: Scarlett Gaviria CNP Provider Information Primary Provider: Antony Blackburn DO Advanced Field Education Coordinator:Harry Wood PA-C The exam and treatment you received in the Emergency Department were for an urgent problem and are not intended as complete care. It is important that you follow up with a doctor, nurse practitioner, or physician?s computer lab assistant for ongoing care. If your symptoms become worse or you do not improve as expected and you are unable to reach your usual health care provider, you should return to the Emergency Department. We are available 24 hours a day. IRENA PERAZA has been given the following list of patient education materials, prescriptions and follow-up instructions: Follow-up Instructions: With: Address: When: Scarlett Gaviria [address] [place] [address], [address] [place], [place] [id number] [facility] (1) In 3 days 02/15/2024 In the event that this physician does not participate in your insurance network, please consult with your insurance company to find a nearby participating provider. Patient Education Materials: Ankle Sprain A MESSAGE TO ALL PATIENTS REGARDING OPIOIDS PRESCRIPTION OPIOIDS: WHAT YOU NEED TO KNOW Prescription opioids can be used to help relieve xekbeujo-ot-haczaf pain and are often prescribed following a surgery or injury, or for certain health conditions. These medications can be an important part of the treatment but also come with serious risks. It is important to work with your healthcare provider to make sure you are getting the safest, most effective care. WHAT ARE THE RISKS AND SIDE EFFECTS OF OPIOID USE? Prescription opioids carry serious risks of addiction and overdose, especially with prolonged use. An opioid overdose, often marked by slowed breathing, can cause sudden . The use of prescription opioids can have a number of side effects as well, even when taken as directed: ? Tolerance?meaning you might need to take more of the medication for the same pain relief ? Physical dependence?meaning you have symptoms of withdrawal when a medication is stopped ? Increased sensitivity to pain ? Constipation ? Nausea, vomiting, and dry mouth ? Sleepiness and dizziness ? Confusion ? Depression ? Low levels of testosterone that can result in lower sex drive, energy, and strength ? Itching and sweating RISKS ARE GREATER WITH: ? History of drug misuse, substance use disorder, or overdose ? Mental health conditions (such as depression or anxiety) ? Sleep apnea ? Older age (65 years and older) ? Avoid alcohol while taking prescription opioids. Also, unless specifically advised by your health care provider, medications to avoid include: ? Benzodiazepines (such as Xanax or Valium) ? Muscle relaxants (such as Soma or Flexeril) ? Hypnotics (such as Ambien or Lunesta) ? Other prescription opioids KNOW YOUR OPTIONS Talk to your health care provider about ways to manage your pain that don?t involve prescription opioids. Some of these options may actually work better and have fewer risks and side effects. Options may include: ? Pain relievers such as acetaminophen, ibuprofen, and naproxen ? Some medication that are also used for depression or seizures ? Physical therapy and exercise ? Cognitive behavioral therapy, a psychological, goal-directed approach, in which patients learn how to modify physical, behavioral, and emotional triggers of pain and stress. IF YOU ARE PRESCRIBED OPIOIDS FOR PAIN: ? Never take opioids in greater amounts or more often than prescribed. ? Follow up with your primary health care provider. o Work together to create a plan on how to manage your pain. o Talk about ways to help manage your pain that don?t involve prescription opioids. o Talk about any and all concerns and side effects. ? Help prevent misuse and abuse o Never sell or share prescription opioids. o Never use another person?s prescription opioids. ? Store prescription opioids in a secure place and out of reach of others (this may include visitors, children, friends, and family). ? Safely dispose of unused prescription opioids: Find your community drug take-back program or your pharmacy mail-back program, or flush them down the toilet, following guidance from the Food and Drug Administration (www.fda.gov/Drugs/Re sourcesForYou). ? Visit www.cdc.gov/drugoverd ose to learn about the risks of opioids abuse and overdose. ? If you believe you may be struggling with addiction, tell your health furnace caretaker and ask for guidance or call [facility] (more content not included)... Normal [facility] XR Ankle 3+ Views Righton XR Ankle 3+ Views Right Exam Date/Time: 02/12/2024 11:31 EDT Reason for Exam: Pain Report IMPRESSION: No acute osseous findings. EXAMINATION/TECHNIQUE : XR Ankle 3+ Views Right HISTORY: Twisting injury right ankle. Lateral pain. COMPARISON: Right foot radiographs 01/13/2024. RESULT: Soft tissue edema about the ankle, especially laterally. Ankle mortise appears intact. No evidence for acute fracture. No dislocation. Mild scattered degenerative changes with small osteophytes throughout the visualized foot, unchanged. Small curvilinear foreign body along the plantar aspect of the mid calcaneus, unchanged. Tiny calcaneal enthesophytes. No other significant abnormality. Ordering Provider: Harry Wood FINAL REPORT Dictated: 02/12/2024 11:35 am Emanuel Neumann MD. Signed (Electronic Signature): 02/12/2024 11:35 am Signed by: Emanuel Neumann MD Transcribed by: JADEN Technologist: TONJA Technical Comments Radiation Dose: Ka,r in mGy = na DAP = na Normal [facility] XR Foot 3+ Views Righton XR Foot 3+ Views Right Exam Date/Time: 02/12/2024 12:18 EDT Reason for Exam: Pain, Traumatic Report IMPRESSION: No significant interval change from prior. Soft tissue edema without acute osseous finding. Post surgical changes first MTP joint. Foreign body, unchanged. EXAMINATION/TECHNIQUE : XR Foot 3+ Views Right HISTORY: Right foot pain. COMPARISON: 01/13/2024. RESULT: Soft tissue edema, especially dorsally, unchanged. No evidence for acute fracture. No dislocation. 2 screws crossing the first MTP joint from prior arthrodesis, grossly unchanged. Degenerative changes throughout the foot, unchanged. Small curvilinear foreign body plantar to the calcaneus, unchanged. Calcaneal enthesophytes. No other significant abnormality. Ordering Provider: Harry Wood FINAL REPORT Dictated: 02/12/2024 12:46 pm Emanuel Neumann MD. Signed (Electronic Signature): 02/12/2024 12:46 pm Signed by: Emanuel Neumann MD Transcribed by: JADEN Technologist: EZEKIEL Technical Comments Radiation Dose: Ka,r in mGy = na DAP = na Normal [facility] XR Tib/Fib Right 2 Viewon XR Tib/Fib Right 2 View Exam Date/Time: 02/12/2024 12:18 EDT Reason for Exam: Pain, Traumatic Report IMPRESSION: No acute osseous findings. EXAMINATION/TECHNIQUE : XR Tib/Fib Right 2 View HISTORY: Right lower leg pain. COMPARISON: None RESULT: No evidence for acute fracture involving the right tibia or fibula. Intramedullary densities involving the proximal tibia, likely either representing enchondroma or bone infarct. Degenerative changes at the knee. Alignment at the ankle maintained. Diffuse soft tissue edema. No other significant abnormality. Ordering Provider: Harry Wood FINAL REPORT Dictated: 02/12/2024 12:48 pm Emanuel Neumann MD. Signed (Electronic Signature): 02/12/2024 12:48 pm Signed by: Emanuel Neumann MD Transcribed by: JADEN Technologist: EZEKIEL Technical Comments Radiation Dose: Ka,r in mGy = na DAP = na [facility] 36on 02-09-2024 36 New order was placed and faxed to number provided. [address] called asking for a new order for MRI left wrist. They have one that states with out contrast. They need and order that states with and without contrast. You can fax the new order to [phone]. Please advise. Thank you [place] [address]on 02-03-2024 36 Faxed all orders to number provided. 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 Normal [facility] Follow-Upon 01-26-2024 Follow-Up [id number] Irena Peraza JrBen 1945 M Date Provider Department Center 01/26/2024 373-GABRIEL, OLIM[place]IA MP ORTHO MPORTHO No family history on file Level of Service:32097 OR OFFICE/OUTPATIENT ESTABLISHED LOW MDM 20 MIN (GC) Reason for Visit and Comments: Follow-up [438662] Normal [facility] XR Foot 3+ Views Righton XR Foot [...] mGy = . DAP = . Normal [facility] CNPSocorro 12-30-2023 CNPN Telephone (SPNMMN) IRENA PERAZA ([id number]) 1945 M Date Time Provider Department 12/30/23 ALPA RAMMN During your visit today, we recorded the following information about you: Tremaine Joseph RN 12/30/2023 9:39 AM Signed Tried to reach patient for post-injection phone call [phone]. Left office number for patient to call back. Vamosa message/questionairre sent regarding post-injection. Tremaine Joseph RN [...] (FLONASE) 50 mcg/actuation nasal spray Use 1 [place] in each nostril once daily. - coenzyme [...] 12/30/2023 Noted Resolved PAF (paroxysmal atrial fibrillation) ([facility]) [I48* Former smoker [Z87.891] Obstructive lung disease [...] Status:Closed by TREMAINE JOSEPH on 12/30/23 Normal [facility] HISTORY PHYSICALon HISTORY PHYSICAL HNO ID: [id number] Author: JOYA MAR APRN.FOAMITE MIXER Service: ? Author Type: Nurse Practitioner Type: [...] (FLONASE) 50 mcg/actuation nasal spray Use 1 [place] in each nostril once daily. 12/20/2023 Yes [...] lants VTE Prophylaxis: NA SIGNATURE: Joya Mar APRN.CHA PATIENT NAME: Irena Peraza DATE: December 20, 2023 TIME: 10:02 AM Normal [facility] NURSING PROGon 12-20-2023 NURSING PROG HNO ID: [id number] Author: TRIXIE ROSENTHAL, BEN Service: ? Author Type: Registered Nurse Type: Nursing Progress Note Filed: 12/20/2023 11:43 Note Text: Report received from Sarah CONTRERAS, D/C instructions given, pt ambulated well at the BS voided in BR post op. D/C home. Normal [facility] NURSING PROG HNO ID: [id number] Author: SARAH PAT RN Service: ? Author Type: Registered Nurse Type: Nursing Progress Note Filed: 12/20/2023 11:17 Note Text: Push/pulls equal and strong bilaterally. C/o mild numbness L > R. Pain level 3/10 in low back. DSD intact in low back. Eliazar Pat RN Normal [facility] OPERATIVE NOon 12-20-2023 OPERATIVE NO HNO ID: [id number] Author: ALPA RAM DO Service: Physical Medicine AND Rehabilitation Author Type: Physician Type: Operative Report Filed: 12/20/2023 11:00 Note Text: PROCEDURE REPORT Surgery/Procedure Date: December 20, 2023 Interventionalist: Alpa Ram DO Procedure(s): Bilateral L5-S1 transforaminal epidural steroid injections Pre-Op/Pre-Procedure Diagnosis: Lumbar spinal stenosis with radiculopathy Post-Op Diagnosis: same SUBJECTIVE: Irena Peraza is a 78 year old male, who presents to the [facility] ambulatory surgery center for a bilateral L5-S1 transforaminal epidural steroid injection. 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 Pain is located left [...] discharged home in stable condition. Alpa Ram, DO Normal [facility] Kassie 12-15-2023 [facility] Telephone (SPNMMN) IRENA PERAZA ([id number]) 1945 M Date Time Provider Department 12/15/23 ALPA RAM SPNMMN During your visit today, we recorded the following information about you: Boubacar Young LPN 12/15/2023 9:17 AM Signed Attempted to reach patient via telephone for pre-procedure instructions regarding procedure with Dr. Ram on 12/20/2023 at contact number [phone], patient unable to talk on phone at this time. Left office number on Animated Speech. Vamosa message sent with pre-procedure guidelines for injection. [...] (FLONASE) 50 mcg/actuation nasal spray Use 1 [place] in each nostril once daily. - coenzyme [...] 12/15/2023 Noted Resolved PAF (paroxysmal atrial fibrillation) ([facility]) [I48* Former smoker [Z87.891] Obstructive lung disease [...] Encounter Status:Closed by BOUBACAR YOUNG on 12/15/23 Normal [facility] CNOVon 11-17-2023 CNOV Office Visit (CARDMN ) IRENA PERAZA ([id number]) 1945 Date Time Provider Department 11/17/23 4:45 PM KAYLAH KEMP CARDMN During your visit today, we recorded the following information about you: Pulse Blood pressure Weight Height 70/minute 127/75 97.5 kg 1.778 m Kaylah Kemp MD 11/17/2023 4:59 PM Signed [facility] Department of Cardiovascular Medicine SECTION OF CARDIAC PACING and ELECTROPHYSIOLOGY OUTPATIENT VISIT DATE November 17, 2023 OUTPATIENT VISIT TYPE ESTABLISHED PRIMARY CARE PHYSICIAN: Scarlett Gaviria NP [address] [place] [address] CHIEF COMPLAINT: AF s/p Watchman HISTORY OF [...] LAD CARDIOVERSION 11/14/15 CATHETER, ABLATION A-2003 at [facility] HERNIA REPAIR HX 05/2011 left inguinal PAST [...] mouth. a (more content not included)... Normal [facility] Office Visit (CAFLMN ) IRENA PERAZA ([id number]) 1945 M Date Time Provider Department 11/17/23 2:30 PM TRANSESOPHAGEAL ECHO CARD MAINCAFLMN During your visit today, we recorded the following information about you: Temperature Pulse Respiration Blood pressure 97.7 degrees 69/minute 23/minute 136/80 Barb Avila, BEN 11/17/2023 3:21 PM Signed AMBULATORY PATIENT EDUCATION [...] Allergies) Date Reviewed: 11/17/2023 Reviewed by: Barb Avila, BEN - Fully Assessed Primary Visit Diagnosis:IRB [id number] [...] (FLONASE) 50 mcg/actuation nasal spray Use 1 [place] in each nostril once daily. - coenzyme [...] 11/17/2023 Noted Resolved PAF (paroxysmal atrial fibrillation) ([facility]) [I48* Former smoker [Z87.891] Obstructive lung disease [...] [M75.122] 05/29/19 (more content not included)... Normal [facility] ECG COMPLETEon 11-17-2023 ECG COMPLETE Ventricular Rate : 7 0 BPM Atrial Rate : 70 BPM P-R Interval : 212 ms QRS Duration : 100 ms Q-T Interval : 482 ms QTC Calculation(Bazett) : 520 ms Calculated P Baird : 20 degrees Calculated R Baird : -10 degrees Calculated T Baird : 23 degrees SINUS RHYTHM WITH 1ST DEGREE AV BLOCK WITH PREMATURE SUPRAVENTRICULAR COMPLEXES LEFT VENTRICULAR HYPERTROPHY . ( R in aVL , Rafal product ) PROLONGED QT INTERVAL OR TU FUSION, CONSIDER HYPOKALEMIA ABNORMAL ECG Confirmed by QUANG WILBURN MD ([id number]) on 11/30/2023 4:32:01 PM NAME : IRENA PERAZA PID : [id number] : 1945 Gender : Male Race : ORD : [id number] Procedure Date : Nov 17 2023 13:41:49 Edit Date : Nov 30 2023 16:32:05 Diagnosis: SINUS RHYTHM WITH 1ST DEGREE AV BLOCK WITH PREMATURE SUPRAVENTRICULAR COMPLEXES LEFT VENTRICULAR HYPERTROPHY . 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 [place] mitral valve. There is trace mitral valve [...] * * * Final * * * [employer] Medical Image : [id number] [id number] Normal [facility] NURSING PROGon 11-17-2023 NURSING PROG HNO ID: [id number] Author: BARB AVILA RN Service: ? Author [...] Barb Avila RN In Department: CARDIOLOGY Normal [facility] IRENA PERAZA ([id number]) 1945 M Date Time Provider Department 11/16/23 [...] (FLONASE) 50 mcg/actuation nasal spray Use 1 [place] in each nostril once daily. - coenzyme [...] 11/16/2023 Noted Resolved PAF (paroxysmal atrial fibrillation) ([facility]) [I48* Former smoker [Z87.891] Obstructive lung disease [...] Encounter Status:Closed by ZAHIRA PIÑA on 11/16/23 [facility] CNOVon 11-11-2023 CNOV Office Visit (SPMESH ) IRENA PERAZA ([id number]) 1945 M Date Time Provider Department 11/11/23 10:30 AM [facility] During your visit today, we recorded the following information about you: Temperature Pulse Blood pressure Weight 97.7 degrees 72/minute 138/89 97.7 kg Height 1.778 m Alpa Ram DO 12/01/2023 12:[address] [facility]rological [place] [facility] - Medical Spine Established Patient [...] HEP 3 times per week PT: [facility], Rachell Gilliam PT, 06/28-08/26/23, [...] maybe 5 years ago at [facility] -4-5 years ago (more content not included)... Normal [facility] Ambulatory Visit Summaryon 0 - Ambulatory Visit Summary Ambulatory Visit Summary IRENA [...] JARVIS, Nghia Elizabeth Where: [facility] Urology Office/Clinic Noteon 11-01-2023 Urology Office/Clinic [...] with voice recognition artificial intelligence software, specifically [employer], [employer] and or [employer]. Substitutions may have occurred due to the inherent limitations of voice recognition and artificial intelligence software. Follow-up With When Contact Information Nghia ROBERSON MD, URL [address] [employer] [address] [place] [address]- Additional Instructions: 6 mos w/ PSA Patient Education Erectile Dysfunction Julissa Jasso per (more content not included)... Normal [facility] Comment on above: Result Comment: Elec [...] methods and specificity. Values obtained with different varnish thinner's assays cannot be used interchangeably. The methodology used to obtain this result was chemiluminescence using [employer]'s Access Hybritech PSA reagent and Access Hybritech [...] for this result was chemiluminescence using Júnior Rick's Access Hybritech PSA reagent. PSA Free & Totalon Free PSA/Total PSA [Mass fraction] 21.1 % Low >=25.0 [facility] Comment on above: Performed By: #### 1 [id number] #### [facility] [address] [place] [address] Prostate specific Ag [Mass/Vol] 3.8 ng/mL High 0.1-3.5 [facility] Comment on above: Result Comment: The concentration of PSA determined by different manufacturers can vary due to differences in assay methods and reagent specificity. Values obtained from different assay methods cannot be used interchangeably. The methodology used for this result was chemiluminescence using [employer]ún[employer]'s Access Hybritech PSA reagent. Performed By: #### 1 [id number] #### [facility] [address] [place] [address] Free PSA [Mass/Vol] 0.8 ng/mL Invalid Interpretation Code [facility] Comment on above: Result Comment: The concentration of free PSA and total PSA determined with assays from different manufacturers can vary due to differences in assay methods and specificity. Values obtained with different varnish thinner's assays cannot be used interchangeably. The methodology used to obtain this result was chemiluminescence using [employer]ún[employer] Rick's Access Hybritech PSA reagent and Access Hybritech free PSA reagent. Performed By: #### 1 [id number] #### [facility] [address] [place] [address] Basic metabolic 2000 panelon 10-11-2023 Anion gap [Moles/Vol] 10 mmol/L Normal 8-15 [facility] Comment on above: Order Comment: Speci men Type: BLOOD SPECIMENOrdering Facility: [facility] Address: [address] [place] [address] Performed By: #### 2 4321-2, ####[facility] LABCLIA [id number] [place] [address] Calcium [Mass/Vol] 10.2 mg/dL Normal 8.5-10.2 [facility] Comment on above: Order Comment: Speci men Type: BLOOD SPECIMENOrdering Facility: [facility] Address: [address] [place] [address] Performed By: #### 2 4321-2, ####[facility] LABCLIA [id number] [place] [address] Chloride [Moles/Vol] 100 mmol/L Normal 98-107 [facility] Comment on above: Order Comment: Speci men Type: BLOOD SPECIMENOrdering Facility: [facility] Address: [address] [place], [place] [address] Performed By: #### 2 4321-2, ####[facility] LABCLIA [id number] [place] [address] CO2 [Moles/Vol] 29 mmol/L Normal 22-30 [facility] Comment on above: Order Comment: Speci men Type: BLOOD SPECIMENOrdering Facility: [facility] Address: [address] [place] [address] Performed By: #### 2 432-2, ####[facility] LABCLIA [id number] [place] [address] Creatinine [Mass/Vol] 1.02 mg/dL Normal 0.73-1.22 [facility] Comment on above: Order Comment: Speci men Type: BLOOD SPECIMENOrdering Facility: [facility] Address: [address] [place] [address] Performed By: #### 2 4321-2, ####[facility] LABCLIA [id number] [place] [address] Creatinine and Glomerular filtration rate.predicted panel (S/P/Bld) 76 mL/min/1.73m??? Normal >=60 [facility] Comment on above: Order Comment: Domenica barboza Type: BLOOD SPECIMENOrdering Facility: [facility] Address: [address] [place] [address] Result Comment: Celia mated Glomerular Filtration Rate [...] reflect actual GFR. Performed By: #### 2 4321-2, ####[facility] LABIA [id number] [place] [address] Glucose [Mass/Vol] 105 mg/dL High 74-99 [facility] Comment on above: Order Comment: Domenica barboza Type: BLOOD SPECIMENOrdering Facility: [facility] Address: [address] [place] [address] Result Comment: The [place] Diabetes Association (ADA) provides guidance for cutoff [...] Standards of Medical Care in Diabetes 2016, [place] Diabetes Association. Diabetes Care. 2016.39(Suppl 1). Performed By: #### 2 4321-2, ####[facility] LABCLIA [id number] [place] [address] Potassium [Moles/Vol] 4.2 mmol/L Normal 3.7-5.1 [facility] Comment on above: Order Comment: Speci men Type: BLOOD SPECIMENOrdering Facility: [facility] Address: [address] [place], [place] [address] Performed By: #### 2 4321-2, ####[facility] LABCLIA [id number] [place] [address] Sodium [Moles/Vol] 139 mmol/L Normal 136-144 [facility] Comment on above: Order Comment: Speci men Type: BLOOD SPECIMENOrdering Facility: [facility] Address: [address] [place] [address] Performed By: #### 2 4321-2, ####[facility] LABIA [id number] [place] [address] Urea nitrogen [Mass/Vol] 12 mg/dL Normal 9-24 [facility] Comment on above: Order Comment: Speci men Type: BLOOD SPECIMENOrdering Facility: [facility] Address: [address] [place] [address] Performed By: #### 2 4321-2, ####[facility] LABIA [id number] [place] [address] Magnesium [facility] UPMCon 10-10 Magnesium [Mass/Vol] 1.9 mg/dL Normal 1.7-2.3 [facility] Comment on above: Order Comment: Speci men Type: BLOOD SPECIMENOrdering Facility: [facility] Address: [address] [place] [address] Performed By: #### 2 4321-2, ####[facility] LABIA [id number] [place] [address] Kassie 09-27-2023 CHAN Telephone (SPNMMN) STUIRENA Rao ([id number]) 1945 M Date Time Provider Department 09/27/23 LEANNA ALPA G SPNMMN During your visit today, we recorded the following information about you: Tremaine Joseph RN 09/27/2023 10:36 AM Signed Tried to reach patient for post-injection phone call [phone]. Left office number for patient to call back. Vamosa message/questionairre sent regarding post-injection. Tremaine Joseph RN Speed Engineer TechnicianMandi Pratt 10/03/2023 12:43 PM Signed Patient is returning nurse call pertaining to below message, call back [phone] Allergies As of Date: 09/27/2023 (No Known [...] (FLONASE) 50 mcg/actuation nasal spray Use 1 [place] in each nostril once daily. - coenzyme [...] 09/27/2023 Noted Resolved PAF (paroxysmal atrial fibrillation) ([facility]) [I48* Former smoker [Z87.891] Obstructive lung disease [...] with radiculop*09/20/2023 (more content not included)... Normal [facility] HISTORY PHYSICALon HISTORY PHYSICAL HNO ID: [id number] Author: MIKHAIL SAAVEDRA APRN.CHA Service: ? Author Type: Nurse Practitioner Type: [...] (FLONASE) 50 mcg/actuation nasal spray Use 1 [place] in each nostril once daily. coenzyme Q10 [...] Peraza DATE: 09/20/2023 TIME: 11:37 AM Normal [facility] OPERATIVE NOon 09-20-2023 OPERATIVE NO HNO ID: [id number] Author: ALPA RAM DO Service: Physical Medicine [...] to the [facility] surgery center for a bilateral L5-S1 transforaminal epidural steroid injection. 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 Pain is midline lumbosacral [...] if any side effects are noted. Irena Rao Stu was transferred to the recovery room and is to be discharged home in stable condition. Alpa Ram, Normal [facility] 09-16-2023 CNPN Telephone (CAEPAV) IRENA PERAZA ([id number]) 1945 M Date Time Provider Department 09/16/23 [...] symptoms: unknown-patient not available at time of integration developer calling: insurance rep Call patient at: at home and on cell [phone] (home) [phone] (cell) Was an appointment scheduled: No Closing statement: Symptom Call: Thank you for calling [facility], your call is very important. A nurse [...] (FLONASE) 50 mcg/actuation nasal spray Use 1 [place] in each nostril once daily. - coenzyme [...] 09/16/2023 Noted Resolved PAF (paroxysmal atrial fibrillation) ([facility]) [I48* Former smoker [Z87.891] Obstructive lung disease [...] of left rotator cuff [M75.122] 05/29/2015 Melanoma ([facility]) [C43.9] 07/23/2015 HTN (hypertension), benign [I10] 07/23/2015 Cervical spine pain [M54.2] Osteoarthritis [M19.90] 08/06/2015 Limitation of joint motion of shoulder [M25.619]08/20/2015 Acute on chronic diastolic congestive heart win*10/31/2015 Chronic diastolic congestive heart failure (HCC*12/19/2015 Right shoulder pain [M25.511] 09/21/2016 Stiffness of shoulder joint [M25.619] 09/21/2016 Weakne (more content not included)... Normal [facility] 09-13-2023 CNPN Telephone (SPNMMN) STUIRENA Maira ([id number]) 1945 M Date Time Provider Department 09/13/23 ALPA RAM [facility] During your visit today, we recorded the following information about you: Tremaine Joseph RN 09/13/2023 2:27 PM Signed Attempted to reach patient via telephone for pre-procedure instructions regarding procedure with Dr. Ram on 09/20/2023 at contact number [phone], patient unable to talk on phone at this time. Left office number on Animated Speech. Vamosa message sent with pre-procedure guidelines for injection. [...] (FLONASE) 50 mcg/actuation nasal spray Use 1 [place] in each nostril once daily. - coenzyme [...] 09/13/2023 Noted Resolved PAF (paroxysmal atrial fibrillation) (HCC) [...] by CODY, (more content not included)... Normal [facility] Chest w/o Contraston CT Chest w/o Contrast Exam Date/Time: 09/06/2023 [...] Saldana MD Transcribed by: JADEN Technologist: ZORAN [facility] Consent for Treatmenton Consent for Treatment [id number]#1 .00TIFF [facility] Consent for Treatment [id number]#1 .00TIFF [facility] Physician Orderon 09-06-2023 Physician Order [id number]# 1.00TIFF Normal [facility] Physician Order [id number]# 1.00TIFF Normal [facility] Comment on above: Other Comment: neede d to be stamped completed Physician Order [id number]# 1.00TIFF Normal [facility] CNOVon 08-29-2023 [facility]RE[facility] PERAZ[facility] ([id number]) 1945 M Date Time Provider Department 08/29/23 10:00 AM ALPA RAM During your visit today, we recorded the following information about you: Pulse Blood pressure Weight 84/minute 120/56 95.4 kg Alpa Ram DO 09/01/2023 7:[address] [facility] Neurological [facility] - Medical Spine [...] 8/10 at the highest. PAIN EVALUATION 08/28/2023 3355 Pain Level: 9 Pain Location: Buttocks-Left Description: [...] HEP 3 times per week PT: [facility], Rachell Gilliam PT, 06/28-08/26/23, [...] [facility] years [facility] he recalls having lumbar spine injections Prior spine surgery: L5-S1 discectomy in Previously treated by: -Recently seen by PA working with Spine Surgeon Dr. Al Wiley in [place] and was planning [facility] PT. -Spine Medicine Dr. Bellamy. 2019 for [...] CARDIOVERSION 11/14/15 CATHETER, ABLATION A-, 2003 at [facility] HERNIA REPAIR HX 05/2011 left inguinal PAST [...] Disorders No-S (more content not included)... [facility] PER[facility] ([id number]) 1945 M Date Time Provider Department 08/29/23 ALPA RAM [facility] During your visit today, we recorded the following information about you: Delfina Hwang RN 08/29/2023 11:11 AM Signed Received: Today Alpa Ram, DO Delfina Hwang, BEN Norris prescribed, but pop up notification says prior [...] it went through insurance. Just waiting for pharmacy picking technician. Allergies As of Date: 08/29/2023 (No Known [...] (FLONASE) 50 mcg/actuation nasal spray Use 1 [place] in each nostril once daily. - coenzyme [...] 08/29/2023 Noted Resolved PAF (paroxysmal atrial fibrillation) ([facility]) [I48* Former smoker [Z87.891] Obstructive lung disease [...] Atrial fi (more content not included)... Normal [facility] XR LUMBAR 4V AP/LAT/ FLEX/EX Ton 08-29-2023 [...] IMPRESSION: 1. Mild to moderate lumbar spondylosis. Adjunct Communications Faculty Member: KIMBERLY Transcribe Date/Time: Aug 29 2023 2:01P Dictated by : RAMYA JOHNSON MD This examination was interpreted and the report reviewed and electronically signed by: RAMYA JOHNSON MD on Aug 29 2023 2:02PM EST [id number] Normal [facility] XR Lumbar spine Views W flex ion and W extensionon 08-29-2023 IMPRESSION: 1. Mild to moderate lumbar spondylosis. Adjunct Communications Faculty Member: KIMBERLY Transcribe Date/Time: Aug 29 2023 2:01P [...] the abdominal aorta. DIVISION OF RADIOLOGY Provider, Nicky Mitchell [facility] - 08/29/2023 * * *Final Report* * [...] IMPRESSION: 1. Mild to moderate lumbar spondylosis. Adjunct Communications Faculty Member: PSCAutumn Transcribe Date/Time: Aug 29 2023 2:01P Dictated by : RAMYA JOHNSON MD This examination was interpreted and the report reviewed and electronically signed by: RAMYA JOHNSON MD on Aug 29 2023 2:02PM EST [facility] Radiology Study observation (narrative) [facility] XR Lumbar spine Views W flex ion and W extensionOrdered By: Ccf Provider on 08-29-2023 [facility] Insurance Correspondenceon 0 08-25-2023 Insurance Correspondence [id number]# 1.00TIFF Normal [facility] Ambulatory Visit Summaryon 0 08-24-2023 Ambulatory Visit Summary IRENA PERAZA :1945 Visit Date:08/24/2023 Ambulatory Visit Instructions Your Care Team Attending Physician - Scarlett RICE, Jevon Primary Care Physician - Everette EUBANKS, Scarlett Armstrong Primary Nurse - Rolando CONTRERAS, Rosa Ledezma [...] Elizabeth Where: [facility] Consent for Treatmenton 08-01 Consent for Treatment [id number]#1 .00TIFF [facility] Oncology Progress Noteon Oncology Progress Note Chief [...] bony abnormality which has been biopsied in [place] in the past. Has followed with Dr. [...] well. Considering surgery on his back with [facility]. Some plans to monitor for a while [...] Follow-up With When Contact Information Jevon Pantoja DO, ONC [facility] [address] [place] [address] [phone] Fax Business (1) Additional Instructions: Medications allopurinol [...] 08/19/23 Lymph Auto 12.1 % Low 08/19/23 Crisp Auto 8.4 % 08/19/23 Eos Auto 1.6 % 08/19/23 Basophil Auto 0.4 % 08/19/23 Neutro Absolute 5.1 E9/L 08/19/23 Lymp (more content not included)... Normal [facility] CBC w/ Auto Diffon 4 Basophils/100 WBC (Bld) 0.4 % Normal 0.0-2.0 [facility] Comment on above: Performed By: #### 2 958990, 2862289, 2955780, 8247235, 9204390, 15093227, 3854281 #### [facility] [address] [place] [address] Basophils/Leukocytes Auto (Bld) [Pure # fraction] 0.0 E9/L Normal 0.0-0.2 [facility] Comment on above: Performed By: #### 2 517556, 6677678, 7249311, 7477719, 4618242, 35891511, 3083413 #### [facility] [address] [place] [address] Eosinophils (Bld) [#/Vol] 0.1 E9/L Normal 0.0-0.5 [facility] Comment on above: Performed By: #### 2 701986, 6171352, 6024880, 8927642, 6124962, 54974855, 5202084 #### [facility] [address] [place] [address] Eosinophils/100 WBC (Bld) 1.6 % Normal 0.0-8.0 [facility] Comment on above: Performed By: #### 2 544988, 4734628, 7835186, 2797077, 3572442, 97564731, 2090618 #### [facility] [address] [place] [address] Erythrocyte distribution width (RBC) [Ratio] 15.4 % High 10.9-14.2 [facility] Comment on above: Performed By: #### 2 958047, 1261665, 8390430, 3641896, 7000569, 10817177, 4661051 #### [facility] [address] [place] [address] Hematocrit (Bld) [Volume fraction] 38.0 % Normal 37.7-49.0 [facility] Comment on above: Performed By: #### 2 187685, 6650010, 8366050, 8583171, 2447311, 21624993, 3933710 #### [facility] [address] [place] [address] Hemoglobin (Bld) [Mass/Vol] 12.1 g/dL Low 13.5-17.5 [facility] Comment on above: Performed By: #### 2 089637, 5543843, 4905211, 3524387, 9206710, 09839197, 8042848 #### [facility] [address] [place] [address] Lymphocytes (Bld) [#/Vol] 0.8 E9/L Low 1.0-4.0 [facility] Comment on above: Performed By: #### 2 288215, 6652206, 0383306, 0744490, 2597772, 94051921, 4616115 #### [facility] [address] [place] [address] Lymphocytes/100 WBC (Bld) 12.1 % Low 14.0-50.0 [facility] Comment on above: Performed By: #### 2 638047, 7731840, 5590609, 3805491, 4049507, 24286964, 1518546 #### [facility] [address] [place] [address] MCH (RBC) [Entitic mass] 29.7 pg Normal 27.0-34.0 [facility] Comment on above: Performed By: #### 2 971710, 4920458, 8505534, 2012061, 7695633, 61473351, 4763735 #### [facility] [address] [place] [address] [place] [address] MCHC (RBC) [Mass/Vol] 31.8 g/dL Normal 31.4-36.0 [facility] Comment on above: Performed By: #### 2 308892, 7593621, 1374752, 4002375, 6517880, 34912292, 0224155 #### [facility] [address] [place] [address] MCV (RBC) [Entitic vol] 93.4 fL Normal 80.0-100.0 [facility] Comment on above: Performed By: #### 2 980784, 6981281, 6692751, 3470628, 0281373, 12362760, 0446532 #### [facility] [address] [place] [address] Monocytes (Bld) [#/Vol] 0.6 E9/L Normal 0.2-1.0 [facility] Comment on above: Performed By: #### 2 778561, 3730612, 8811760, 7080340, 3336741, 90786816, 0686734 #### [facility] [address] [place] [address] Neutrophils (Bld) [#/Vol] 5.1 E9/L Normal 2.0-7.5 [facility] Comment on above: Performed By: #### 2 142454, 1604622, 2262944, 1531432, 1853477, 30614606, 7595305 #### [facility] [address] [place] [address] Neutrophils/100 WBC (Bld) 77.5 % High 36.0-75.0 [facility] Comment on above: Performed By: #### 2 987217, 0494070, 6148099, 8134486, 8037177, 66461960, 6495508 #### [facility] [address] [place] [address] Platelet 294.0 E9/L Normal 150.0-500.0 [facility] Comment on above: Performed By: #### 2 858677, 9342207, 8877146, 7753749, 3262500, 63586667, 3949090 #### [facility] [address] [place] [address] Platelet mean volume (Bld) [Entitic vol] 7.3 fL Normal 6.4-10.8 [facility] Comment on above: Performed By: #### 2 688441, 9477234, 0078819, 6698951, 0349319, 21936932, 4836250 #### [facility] [address] [place] [address] RBC (Bld) [#/Vol] 4.1 E12/L Low 4.3-5.9 [facility] Comment on above: Performed By: #### 2 594322, 3132125, 0650723, 5062937, 0439041, [id number], 9659783 #### [facility] [address] [place] [address] WBC corrected for nucl RBC Auto (Bld) [#/Vol] 6.6 E9/L Normal 4.0-11.0 [facility] Comment on above: Performed By: #### 2 956864, 6705926, 7302063, 5980671, 9280948, 11712298, 8214039 #### [facility] [address] [place] [address] CHEMISTRYOrdered By: Nguyễn orozco on 08-19-2023 Albumin [...] 08-19-2023 Albumin [Mass/Vol] 4.2 g/dL Normal 3.3-5.0 [facility] Comment on above: Performed By: #### 2 588660, 8425914, 2223362, 9851510, 2250910, 72518188, 4785069 #### [facility] [address] [place] [address] Albumin/Globulin (S) [Mass conc ratio] 1.6 Normal 1.1-2.2 [facility] Comment on above: Performed By: #### 2 199073, 2378190, 9355146, 6485858, 2585955, 45368455, 1496725 #### [facility] [address] [place] [address] ALP [Catalytic activity/Vol] 68 Int._Unit/L Normal 21-98 [facility] Comment on above: Performed By: #### 2 221380, 1622164, 2176912, 4192891, 4165305, 57568736, 1592028 #### [facility] [address] [place] [address] ALT No additional P-5'-P [Catalytic activity/Vol] 12 Int._Unit/L Normal 6-46 [facility] Comment on above: Performed By: #### 2 896244, 5132087, 9478216, 3640367, 6262624, 83152421, 0145361 #### [facility] [address] [place] [address] Anion gap [Moles/Vol] 16 mmol/L Normal 6-16 [facility] Comment on above: Performed By: #### 2 140139, 7728055, 8232594, 7994174, 3988592, 86841821, 5330576 #### [facility] [address] [place] [address] AST [Catalytic activity/Vol] 19 Int._Unit/L Normal 5-43 [facility] Comment on above: Performed By: #### 2 918973, 8294098, 9716382, 2277688, 6011013, 18177547, 0294090 #### [facility] [address] [place] [address] Bilirubin [Mass/Vol] 0.4 mg/dL Normal 0.0-1.1 [facility] Comment on above: Performed By: #### 2 543658, 9609158, 8626460, 6641522, 8251957, 64921366, 4912568 #### [facility] [address] [place] [address] Calcium [Mass/Vol] 9.4 mg/dL Normal 8.9-11.1 [facility] Comment on above: Performed By: #### 2 585227, 0675428, 8379830, 0603372, 4701295, 57712555, 8552076 #### [facility] [address] [place] [address] Chloride [Moles/Vol] 104 mmol/L Normal 101-111 [facility] Comment on above: Performed By: #### 2 972714, 6357479, 9378283, 1623453, 2117430, 37582892, 0962323 #### [facility] [address] [place] [address] CO2 [Moles/Vol] 24 mmol/L Normal 21-31 [place] Comment on above: Performed By: #### 2 634551, 3411638, 7449491, 8673325, 1088498, 16086232, 4490034 #### [facility] [address] [place] [address] Creatinine [Mass/Vol] 0.9 mg/dL Normal 0.5-1.3 [facility] Comment on above: Performed By: #### 2 645389, 7830712, 0979631, 1091480, 3624478, 24462575, 2041680 #### [facility] [address] [place] [address] Globulin (S) [Mass/Vol] 2.7 g/dL Normal 1.4-4.0 [facility] Comment on above: Performed By: #### 2 892724, 7740408, 7609470, 2383169, 4368486, 41238338, 6987963 #### [facility] [address] [place] [address] Glucose [Mass/Vol] 129 mg/dL Normal 55-199 [facility] Comment on above: Performed By: #### 2 099460, 4968144, 2919819, 3122654, 5116213, 42541584, 5996913 #### [facility] [address] [place] [address] Potassium [Moles/Vol] 3.5 mmol/L Normal 3.5-5.3 [facility] Comment on above: Performed By: #### 2 645680, 4833530, 5812021, 0102968, 6978122, 66455902, 5698072 #### [facility] [address] [place] [address] Protein [Mass/Vol] 6.9 g/dL Normal 6.0-7.8 [facility] Comment on above: Performed By: #### 2 267301, 4725936, 1944253, 8940713, 3165199, 45949939, 1744362 #### [facility] [address] [place] [address] Sodium [Moles/Vol] 140 mmol/L Normal 135-145 [facility] Comment on above: Performed By: #### 2 667675, 2477880, 7993385, 2209271, 1439880, 44875146, 1879810 #### [facility] [address] [place] [address] Urea nitrogen [Mass/Vol] 14 mg/dL Normal 5-21 [facility] Comment on above: Performed By: #### 2 130527, 5878613, 6009799, 1517902, 0677674, 97600194, 3398851 #### [facility] [address] [place] [address] Urea nitrogen/Creatinine [Mass ratio] 16 No Units Normal 10-20 [facility] Comment on above: Performed By: #### 2 664357, 8586234, 1780237, 1907343, 2844874, 74698868, 9612547 #### [facility] [address] [place] [address] Ferritinon 08-19-2023 Ferritin [Mass/Vol] 24 ng/mL Normal 24-336 [facility] Comment on above: Performed By: #### 2 961204, 1529554, 3590974, 1337420, 3476557, 36591665, 7315792 #### [facility] [address] [place] [address] HEMATOLOGYOrdered By: SYSTEM SYSTEM on 08-19-2023 Basophils/100 [...] 08-19-2023 Iron [Mass/Vol] 53 microgram/dL Normal 35-153 [facility] Comment on above: Performed By: #### 1 9311661, 2468678, 7914277, 4872440, 9987790, 6123818, 9541737 #### [facility] [address] [place] [address] Iron Saturationon 08-19-2023 Iron binding capacity [Mass/Vol] 545 microgram/dL High 250-400 [facility] Comment on above: Performed By: #### 1 0171660, 8201761, 8519374, 0987129, 9991671, 1276095, 8627249 #### [facility] [address] [place] [address] Iron saturation [Mass fraction] 10 % Low 20-50 [facility] Comment on above: Performed By: #### 1 6560233, 5181995, 8849360, 7139641, 2615187, 5047884, 1201110 #### [facility] [address] [place] [address] Physician Orderon 08-19-2023 Physician Order [id number]#1 .00TIFF Normal [facility] Transferrinon 08-19-2023 Transferrin [Mass/Vol] 389 mg/dL High 200-370 [facility] Comment on above: Performed By: #### 1 5020893, 7187588, 3403539, 6558496, 8960572, 9698337, 1168265 #### [facility] [address] [place] [address] eGFRon 08-19-2023 eGFR 88 mL/min/1.73 m2 Normal >=59 [facility] Comment on above: Order Comment: Order added by Discern Expert. Performed By: #### 1 0128488, 2655729, 3636155, 9198826, 4716651, 2697437, 4145605 #### [facility] [address] [place] [address] CNOVon 08-15-2023 CNOV Office Visit (CAEPAV ) IRENA PERAZA ([id number]) 1945 M Date Time Provider Department 08/15/23 2:40 PM ODALYS ROSA CAEPAV During your visit today, we recorded the following information about you: Pulse Blood pressure Weight 82/minute 136/60 95.5 kg Odalys Rosa MD 08/15/2023 8:11 PM Signed [facility] NOTE NAME: IRENA PERAZA CLINIC NO.: [id number] DATE OF SERVICE: 08/15/2023 ATTENDING PHYSICIAN: Odalys Rosa M.D. Office Visit The patient is a 78-year-old man with paroxysmal atrial fibrillation. I have known him for about 5 years. Atrial fibrillation first occurred about 20 years ago. He subsequently had a PVI at the [facility]. Atrial fibrillation recurred in 2015. A few [...] the patient feels well. MEDICATIONS: Reviewed in [facility] including atenolol 50 mg daily, Tikosyn 500 [...] of scar or ischemia. DICTATED BY: Sergei Deng/AYLINT JOB# [id number] Pouncer: Transcribed Clinic Note (chip) ID: [id number] [id number] 08/15/2023 3:25 PM Author: ODALYS ROSA Signed by ODALYS ROSA MD on 08/15/2023 at 8:11 PM * * * This document replaces document [id number] 329-11 * * * Document text: [facility] NOTE NAME: IRENA PERAZA CLINIC NO.: [id number] DATE OF SERVICE: 08/15/2023 ATTENDING PHYSICIAN: Odalys Rosa M.D. Office Visit The patient is a 78-year-old man with paroxysmal atrial fibrillation. I have known him for about 5 years. Atrial fibrillation first occurred about 20 years ago. He subsequently had a PVI at the [facility]. Atrial fibrillation recurred in 2016. A few [...] the patient feels well. MEDICATIONS: Reviewed in [facility] including atenolol 50 mg daily, Tikosyn 500 [...] or ischemia. DICTATED BY: Sergei Deng/PAOLA JOB# [id number] ----- Allergies As of Date: 08/15/2023 (No [...] esters (LOVAZA) (more content not included)... Normal [facility] CNOVon 07-18-2023 CNOV Office Visit (CARDAV ) IRENA PERAZA ([id number]) 1945 M Date Time Provider Department 07/18/23 10:20 AM ANGELI KIMBALL During your visit today, we recorded the following information about you: Pulse Blood pressure Weight Height 120/minute 150/84 96.7 kg 1.778 m Angeli Kimball MD 07/18/2023 11:01 AM Signed [facility] Henning Department of Cardiovascular Medicine SECTION OF REGIONAL CARDIOLOGY OUTPATIENT VISIT DATE April 24, 2023 OUTPATIENT VISIT TYPE ESTABLISHED PRIMARY CARE PHYSICIAN: Scarlett Gaviria NP [address] [place] [phone] CHIEF COMPLAINT: Arrhythmia HISTORY OF PRESENT ILLNESS: [...] wasn't feeling well and he went to [place] ED. A CT chest was done and [...] by mouth once daily.Disp: 30 tabletRfl: 5 Uankw-0-BZA-EPA-Fish Oil 1,000 mg (120 mg-180 mg) capTake [...] fluticasone (FLONASE) 50 mcg/actuation nasal sprayUse 1 [place] in each nostril once daily.Disp: Rfl: 0 [...] ventricular hype (more content not included)... Normal [facility] Ambulatory Visit Summaryon 0 06-24-2023 Ambulatory Visit Summary STUIRENA Maira :1945 Visit Date:06/24/2023 Ambulatory Visit Instructions Your [...] MD Where: [facility] G[facility]ology Office/Clin ic Noteon 06-24-2023 Gastroenterology Office/Clinic [...] bleeding. 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 3. Former smoker (Z87.891: Personal history of nicotine dependence) Colonoscopy 01/2020 w/Taiwo: 21 polyps - TA fragments. Colonoscopy 08/2020 w/Taiwo: 12 polyps - TA's Colonoscopy 11/2020 w/Jonathanam: 12 polyps - hyperplastic and TA's EGD/Colonoscopy 06/2021 w/Salam: 2 hyperplastic polyps and haleigh esophagitis - recommended repeat colon in 2026 EGD 08/2021 w/Salam: normal EGD Laboratory Results CBC CMP Basophil [...] fL (05/20/23) Chloride: 98 mmol/L Low (05/20/23) Crisp Absolute: 0.8 E9/L (05/20/23) CO2: 33 mmol/L High (05/20/23) Crisp Auto: 8.9 % (05/20/23) Creatinine: 1.3 mg/dL [...] Transferrin: 318 mg/dL (11/05/21) Transferrin: 367 mg/dL (03/16/22) History of Present Illness doing well overall [...] polyps History of skin cancer 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 Normal [facility] Comment on above: Result Comment: Elec tronically Signed By: Rogerio JARVIS, Zuhair Shen\.disha\Date and Time Signed: 06/24/23 11:36 EST Patricia 06-22-2023 CNOV Office Visit (MIGUEL ) IRENA PERAZA ([id number]) 1945 M Date Time Provider Department 06/22/23 3:15 PM MENDIS, ALPA G SPMESH During your visit today, we recorded the following information about you: Temperature Pulse Blood pressure Weight 99.1 degrees 102/minute 116/66 94.8 kg Height 1.778 m Alpa Ram, DO 07/03/2023 7:54 PM Signed [facility] - Medical Spine [...] maybe 5 years ago at [facility] Prior spine surgery: L5-S1 discectomy in Previously treated by: -Recently seen by PA working with Spine Surgeon Dr. Al Wiley in [place] and was planning water PT. -Spine Medicine [...] CARDIOVERSION 11/14/15 CATHETER, ABLATION A-Fib, 2003 at [facility] HERNIA REPAIR HX 05/2011 left inguinal PAST [...] Heart Failure (more content not included)... Normal [facility] XR lumbar spine 6V w bending on 06-20-2023 XR lumbar spine 6V w [facility] [place] [address] [place] [address] XRay Report Signed Patient: Irena Peraza MR#: [id number] 4 : 1945 Acct:[id number] Age/Sex: 78 / M ADM Date: 06/20/23 Loc: XD Room: Type: [facility] Attending Dr: Yareli DIASC Copies to: ROOPA Wilson Ordering Provider: ROOPA [...] Akua Loya M.D.06/20/2023 5:45 PM Dictation Location: [place] [address] Transcribed By: [facility] 06/20/231744 Dictated By: Akua Loya MD 06/20/231740 Signed By: 06/20/231744 [facility] NM CARDIAC PERF STRESS/PHARM on 06-16-2023 NM CARDIAC PERF STRESS/PHARM * * *Final Report* * * DATE OF EXAM: Jun 16 2023 3:13PM STN 0006 - NM CARDIAC PERF STRESS/PHARM / [...] later. See administered radiotracer and doses below. [facility] Date of service: 06/16/2023 12:55:21 PM Ordering [...] * * * -------- Stress ECG Report: [facility] Date of service: 06/16/2023 12:55:21 PM Ordering physician: JACQUELINE TAMAYO direct care specialist: Sujatha Lim Interpreting physician: Amy Ledezma [...] Table: +- (more content not included)... Normal [facility] Heart Perfusion W stress and W radionuclide Marcos 06-16-2023 * * *Final Report* * * DATE OF EXAM: Jun 16 2023 3:13PM [address] CARDIAC PERF STRESS/PHARM / PROCEDURE REASON: [...] later. See administered radiotracer and doses below. [facility] Date of service: 06/16/2023 12:55:21 PM Ordering [...] * * * -------- Stress ECG Report: [facility] Date of service: 06/16/2023 12:55:21 PM Ordering physician: JACQUELINE TAMAYO direct care specialist: Sujatha Lim Interpreting physician: Amy Ledezma [...] content not included)... DIVISION OF RADIOLOGY [facility], [facility] * * *Final Report* * * DATE OF EXAM: Jun 16 2023 3:13PM [address] CARDIAC PERF STRESS/PHARM / PROCEDURE REASON: [...] later. See administered radiotracer and doses below. [facility] Date of service: 06/16/2023 12:55:21 PM Ordering [...] * * * -------- Stress ECG Report: [facility] Date of service: 06/16/2023 12:55:21 PM Ordering physician: JACQUELINE TAMAYO direct care specialist: Sujatha Lim Interpreting physician: Amy Ledezma [...] and Regadenoson Injectio (more content not included)... [facility] Radiology Study observation (narrative) [facility] NM Heart Perfusion W stress and W radionuclide IVOrdered By: Ccf Provider on 06-16-2023 [facility] Kassie 06-15-2023 HAYDER Telephone (CARDST) IRENA PERAZA ([id number]) 1945 M Date Time Provider Department 06/15/23 NURSE CARD [facility] STRO CARDST During your visit today, we recorded the following information about you: Sujatha Lim RN 06/15/2023 1:18 PM Signed Patient scheduled for NM/Pharm stress test [place], old order discontinued, need new order [...] hyperlipidemia type [E78.5] Order(s):NM CARDIAC PERF STRESS/PHARM [[id number]] Order #: [id number] FUTURE Prescriptions as of 06/15/2023 - atorvastatin [...] 1 tablet by mouth once daily. - Umqfh-2-WIF-EPA-Fish Oil 1,000 mg (120 mg-180 mg) cap [...] (FLONASE) 50 mcg/actuation nasal spray Use 1 [place] in each nostril once daily. 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 Ordering physician: MICHAEL SIMMS Indication: Limited TTE [...] * * * Final * * * [employer] Medical Image : [id number] Normal [facility] Lipid 1996 panelon 4 Cholesterol [Mass/Vol] 189 mg/dL Normal <200 [facility] Comment on above: Order Comment: Speci men Type: BLOOD SPECIMENOrdering Facility: [facility] Address: [address] [place] [address] Result Comment: <200 mg/dL, Desirable 200-239 mg/dL, Borderline high >239 mg/dL, High Performed By: #### 2 4331-1 ####[facility] LABCLIA [id number] [place] [id number] [facility] LABCLIA [id number] [place] [address] Cholesterol in HDL [Mass/Vol] 42 mg/dL Normal >39 [facility] Comment on above: Order Comment: Speci men Type: BLOOD SPECIMENOrdering Facility: [facility] Address: [address] [place] [address] Result Comment: 40-5 9 mg/dL, Acceptable >59 mg/dL, High: Negative risk factor for coronary heart disease <40 mg/dL, Low: Positive risk factor for coronary heart disease Performed By: #### 2 4331-1 ####[facility] LABCLIA [id number] [address] LABCLIA [id number] [place] [address] Cholesterol in LDL [Mass/Vol] 81 mg/dL Normal <100 [facility] Comment on above: Order Comment: Speci men Type: BLOOD SPECIMENOrdering Facility: [facility] Address: [address] [place] [address] Result Comment: <100 mg/dL, Optimal 100-129 mg/dL, Near optimal/above optimal 130-159 mg/dL, Borderline high 160-189 mg/dL, High >189 mg/dL, Very high Secondary prevention optimal LDL Cholesterol levels are recommended to be < 70 mg/dL Performed By: #### 2 4331-1 ####[facility] LABCLIA [id number] [address] LABCLIA [id number] [place] [address] Cholesterol in LDL/Cholesterol in HDL [Mass ratio] 1.93 {ratio} Normal <2.54 [facility] Comment on above: Order Comment: Speci men Type: BLOOD SPECIMENOrdering Facility: [facility] Address: [address] [place] [address] Result Comment: Refe rence: 1. National Cholesterol Education Program ATP III Guideline At-A-Glance Quick Desk Reference: National Heart, Lung, [facility] [place]. National Institutes of Health. 2001: NIH Publication No. 01-3305. 2. An International Atherosclerosis Society position paper: global recommendations for the management of dyslipidemia: executive summary, Atherosclerosis. 2014: 232(2):410-413. Performed By: #### 2 4331-1 ####[facility] LABCLIA [id number] [address] LABCLIA [id number] [place] [address] Cholesterol in VLDL [Mass/Vol] 66 mg/dL High <30 [facility] Comment on above: Order Comment: Speci men Type: BLOOD SPECIMENOrdering Facility: [facility] Address: [address] [place] [address] Performed By: #### 2 4331-1 ####[facility] LABCLIA [id number] [address] LABCLIA [id number] [place] [address] Cholesterol non HDL [Mass/Vol] 147 mg/dL High <130 [facility] Comment on above: Order Comment: Juan Joséi men Type: BLOOD SPECIMENOrdering Facility: [facility] Address: [address] [place] [address] Result Comment: <130 mg/dL, Optimal 130-159 mg/dL, Near optimal/above optimal 160-189 mg/dL, Borderline high 190-219 mg/dL, High >219 mg/dL, Very high Secondary prevention optimal non HDL Cholesterol levels are recommended to be <100 mg/dL Performed By: #### 2 4331-1 ####[facility] LABCLIA [id number] [address] LABCLIA [id number] [place] [address] Cholesterol.total/Cho lesterol in HDL [Mass ratio] 4.50 {ratio} Normal <5.10 [facility] Comment on above: Order Comment: Speci men Type: BLOOD SPECIMENOrdering Facility: [facility] Address: [address] [place], [place] [address] Performed By: #### 2 4331-1 ####[facility] LABCLIA [id number] [address] [address] [facility] LABCLIA [id number] [place] [address] FASTING TIME 12 hrs Normal [facility] Comment on above: Order Comment: Speci men Type: BLOOD SPECIMENOrdering Facility: [facility] Address: [address] [place] [address] Performed By: #### 2 4331-1 ####[facility] LABCLIA [id number] [address] LABCLIA [id number] [place] [address] Triglyceride [Mass/Vol] 331 mg/dL High <150 [facility] Comment on above: Order Comment: Speci men Type: BLOOD SPECIMENOrdering Facility: [facility] Address: [address] [place] [address] Result Comment: <150 mg/dL, Normal 150-199 mg/dL, Borderline high 200-499 mg/dL, High >499 mg/dL, Very high Performed By: #### 2 4331-1 ####[facility] LABCLIA [id number] [place] [id number] [facility] LABCLIA [id number] [place] [address] MRI Spine Lumbar w/ + w/o Co [...] Vueway Contrast amount in ml's: 10 Normal [facility] Consent for Treatmenton 05-03 Consent for Treatment [id number] 1.00TIFF Normal [facility] CBC w/ Auto Diffon 4 Basophil Absolute 0.1 E9/L Normal 0.0-0.2 [facility] Comment on above: Performed By: #### 1 8407191, 1579824, 6894481, 0571797, 5102912, 3130227, 0774313 #### [facility] [address] [place] [address] Basophils/100 WBC (Bld) 0.7 % Normal 0.0-2.0 [facility] Comment on above: Performed By: #### 1 6801532, 4563229, 2940800, 2166026, 6571701, 0113330, 7745698 #### [facility] [address] [place] [address] Eos Absolute 0.3 E9/L Normal 0.0-0.5 [facility] Comment on above: Performed By: #### 1 1312230, 9957633, 5327574, 7148135, 1700779, 3612328, 0883199 #### [facility] [address] [place] [address] Eosinophils/100 WBC (Bld) 3.1 % Normal 0.0-8.0 [facility] Comment on above: Performed By: #### 1 6462464, 6303960, 0264695, 5565808, 9241079, 6189790, 3303912 #### [facility] [address] [place] [address] Erythrocyte distribution width (RBC) [Ratio] 16.4 % High 10.9-14.2 [facility] Comment on above: Performed By: #### 1 7581839, 1335694, 2397656, 6265766, 5555633, 8047475, 1234754 #### [facility] [address] [place] [address] Hematocrit (Bld) [Volume fraction] 40.0 % Normal 37.7-49.0 [facility] Comment on above: Performed By: #### 1 4425046, 7319285, 4616219, 8321823, 8778725, 5348937, 8739062 #### [facility] [address] [place] [address] Hemoglobin (Bld) [Mass/Vol] 12.9 g/dL Low 13.5-17.5 [facility] Comment on above: Performed By: #### 1 8071336, 3330441, 7344405, 7705680, 7135094, 6829135, 0734319 #### [facility] [address] [place] [address] Lymph Absolute 0.9 E9/L Low 1.0-4.0 [facility] Comment on above: Performed By: #### 1 9402557, 2482890, 0155398, 6739927, 6593915, 4702919, 5434273 #### [facility] [address] [place] [address] Lymphocytes/100 WBC (Bld) 10.2 % Low 14.0-50.0 [facility] Comment on above: Performed By: #### 1 7017848, 5829293, 3531963, 4589668, 9314980, 3870757, 5417353 #### [facility] [address] [place] [address] MCH (RBC) [Entitic mass] 30.1 pg Normal 27.0-34.0 [facility] Comment on above: Performed By: #### 1 2363286, 2542329, 6026900, 3212389, 1436657, 8017113, 6859480 #### [facility] [address] [place] [address] MCHC (RBC) [Mass/Vol] 32.0 g/dL Normal 31.4-36.0 [facility] Comment on above: Performed By: #### 1 4349552, 3319814, 4091711, 1586002, 0204643, 3788264, 6286011 #### [facility] [address] [place] [address] MCV (RBC) [Entitic vol] 94.3 fL Normal 80.0-100.0 [facility] Comment on above: Performed By: #### 1 0106711, 3484198, 5751287, 5016534, 3185461, 6544911, 4974729 #### [facility] [address] [place] [address] Crisp Absolute 0.8 E9/L Normal 0.2-1.0 [facility] Comment on above: Performed By: #### 1 3004883, 2440350, 3866061, 6417233, 1242563, 9348702, 4429638 #### [facility] [address] [place] [address] Monocytes/100 WBC (Bld) 8.9 % Normal 4.0-14.0 [facility] Comment on above: Performed By: #### 1 8030491, 1019490, 4512211, 6436389, 0781282, 2996691, 3712209 #### [facility] [address] [place] [address] Neutro Absolute 6.9 E9/L Normal 2.0-7.5 [place] Comment on above: Performed By: #### 1 1141687, 7182982, 6542515, 4545478, 2036126, 2688491, 1013561 #### [facility] [address] [place] [address] Neutro Auto 77.1 % High 36.0-75.0 [facility] Comment on above: Performed By: #### 1 9437976, 2022785, 8696978, 6396992, 5955231, 1254983, 0087673 #### [facility] [address] [place] [address] Platelet 279.0 E9/L Normal 150.0-500.0 [facility] Comment on above: Performed By: #### 1 4742045, 2070130, 9031063, 7575750, 7945939, 1249767, 7546715 #### [facility] [address] [place] [address] Platelet mean volume (Bld) [Entitic vol] 7.6 fL Normal 6.4-10.8 [facility] Comment on above: Performed By: #### 1 1559077, 7477976, 9128914, 7468196, 2567090, 4491801, 2304568 #### [facility] [address] [place] [address] RBC 4.3 E12/L Normal 4.3-5.9 [facility] Comment on above: Performed By: #### 1 7440442, 2625369, 3572967, 8883596, 6827051, 4765386, 2572432 #### [facility] [address] [place] [address] WBC 9.0 E9/L Normal 4.0-11.0 [facility] Comment on above: Performed By: #### 1 8282521, 7768604, 4186565, 2332654, 4744837, 7249997, 8190172 #### [facility] [address] [place] [address] CHEMISTRYOrdered By: SYSTEM SYSTEM on 05-20-2023 Albumin [...] 05-20-2023 Albumin [Mass/Vol] 4.0 g/dL Normal 3.3-5.0 [facility] Comment on above: Performed By: #### 1 6410282, 4058756, 9852192, 0876501, 5308176, 4376959, 0041414 #### [facility] [address] [place] [address] Albumin/Globulin [Mass ratio] 1.4 {ratio} Normal 1.1-2.2 [facility] Comment on above: Performed By: #### 1 7565503, 0933610, 6717856, 8809263, 7131251, 6724769, 7752807 #### [facility] [address] [place] [address] Alk Phos 63 Int._Unit/L Normal 21-98 [facility] Comment on above: Performed By: #### 1 9792092, 8114505, 2840948, 0993142, 0168821, 6832423, 8728456 #### [facility] [address] [place] [address] ALT 21 Int._Unit/L Normal 6-46 [facility] Comment on above: Performed By: #### 1 3706068, 6670203, 3572363, 6492754, 3508866, 9553870, 9991017 #### [facility] [address] [place] [address] AST 19 Int._Unit/L Normal 5-43 [facility] Comment on above: Performed By: #### 1 9527621, 4620683, 1238149, 3887694, 8054208, 2343778, 6837838 #### [facility] [address] [place] [address] Bili Total 0.7 mg/dL Normal 0.0-1.1 [facility] Comment on above: Performed By: #### 1 0671899, 2067737, 0711816, 8225043, 8750096, 6850968, 2973267 #### [facility] [address] [place] [address] Globulin (S) [Mass/Vol] 2.9 g/dL Normal 1.4-4.0 [facility] Comment on above: Performed By: #### 1 2558374, 4129823, 7766949, 5764287, 3210537, 4386856, 0638577 #### [facility] [address] [place] [address] Protein [Mass/Vol] 6.9 g/dL Normal 6.0-7.8 [facility] Comment on above: Performed By: #### 1 3818820, 1442358, 2881314, 2028596, 3557215, 6816708, 7381959 #### [facility] [address] [place] [address] Anion gap [Moles/Vol] 11 mmol/L Normal 6-16 [facility] Comment on above: Performed By: #### 1 4187449, 2732810, 2681585, 1012377, 4096672, 3339876, 8302055 #### [facility] [address] [place] [address] BUN/Creat Ratio 18 No Units Normal 10-20 [facility] Comment on above: Performed By: #### 1 6500677, 4003742, 3664169, 6378695, 3561999, 8513426, 6436275 #### [facility] [address] [place] [address] Calcium [Mass/Vol] 9.9 mg/dL Normal 8.9-11.1 [facility] Comment on above: Performed By: #### 1 0865835, 3211936, 8089821, 6377864, 2034200, 4759407, 6789849 #### [facility] [address] [place] [address] Chloride [Moles/Vol] 98 mmol/L Low 101-111 [facility] Comment on above: Performed By: #### 1 1351009, 1683599, 6749708, 4330224, 2946125, 2519921, 5655321 #### [facility] [address] [place] [address] CO2 [Moles/Vol] 33 mmol/L High 21-31 [place] Comment on above: Performed By: #### 1 1785414, 9002352, 9580304, 0962861, 1152091, 3336506, 3816109 #### [facility] [address] [place] [address] Creatinine [Mass/Vol] 1.3 mg/dL Normal 0.5-1.3 [facility] Comment on above: Performed By: #### 1 5440306, 2639892, 9227266, 9177756, 1386392, 3830004, 6486336 #### [facility] [address] [place] [address] Glucose [Mass/Vol] 83 mg/dL Normal 55-199 [facility] Comment on above: Performed By: #### 1 0082021, 9391612, 5389190, 9198229, 3257423, 8535022, 7415450 #### [facility] [address] [place] [address] Potassium [Moles/Vol] 4.5 mmol/L Normal 3.5-5.3 [facility] Comment on above: Performed By: #### 1 3424455, 3297141, 1983178, 2584113, 1926113, 1590040, 7306370 #### [facility] [address] [place] [address] Sodium [Moles/Vol] 137 mmol/L Normal 135-145 [facility] Comment on above: Performed By: #### 1 8615755, 0926827, 2297646, 9998395, 8350094, 5715923, 3959000 #### [facility] [address] [place] [address] Urea nitrogen [Mass/Vol] 23 mg/dL High 5-21 [facility] Comment on above: Performed By: #### 1 3141786, 7549865, 2720999, 7189288, 7493236, 9518172, 2405952 #### [facility] [address] [place] [address] Consent for Treatmenton 05-02 Consent for Treatment [id number]#1 .00TIFF Normal [facility] Ferritinon 05-20-2023 Ferritin Lvl 34 ng/mL Normal 24-336 [facility] Comment on above: Performed By: #### 1 7968837, 0237158, 4192357, 1922372, 2715179, 3231933, 0590098 #### [facility] [address] [place] [address] HEMATOLOGYOrdered By: SYSTEM SYSTEM on 05-20-2023 Basophil [...] Normal 80.0 - 100.0 fL [facility] Heme Crisp Absolute 0.8 E9/L Normal 0.2 - 1.0 [...] Ironon 05-20-2023 Iron 127 microgram/dL Normal 35-153 [facility] Comment on above: Performed By: #### 1 0605090, 3740698, 8726802, 3652933, 5404795, 8041272, 9387382 #### [facility] [address] [place] [address] Iron Saturationon 05-20-2023 Iron Sat 25 % Normal 20-50 [facility] Comment on above: Performed By: #### 1 9631972, 1180311, 7505357, 3221166, 8359511, 6691072, 6228883 #### [facility] [address] [place] [address] TIBC 501 microgram/dL High 250-400 [facility] Comment on above: Performed By: #### 1 1930342, 0296829, 3069874, 8930091, 8480640, 0099890, 3738603 #### [facility] [address] [place] [address] Physician Orderon 05-20-2023 Physician Order [id number]# 1.00TIFF Normal [facility] RAD - MRI Screening Formon 0 05-20-2023 RAD - MRI Screening Form [id number]# 1.00TIFF Normal [facility] Transferrinon 05-20-2023 Transferrin [Mass/Vol] 358 mg/dL Normal 200-370 [facility] Comment on above: Performed By: #### 1 7498376, 8231888, 9894035, 6958297, 8849513, 7069052, 8298579 #### [facility] [address] [place] [address] XR Foreign Body Loc Eye Bila teralon [...] mGy = na DAP = na Normal [facility] eGFRon 05-20-2023 eGFR 56 mL/min/1.73 m2 Low >=59 [facility] Comment on above: Order Comment: Order added by Discern Expert. Performed By: #### 1 4297226, 8053333, 8966485, 1365938, 5388052, 9765292, 1561944 #### [facility] [address] [place] [address] Physician Orderon 05-19-2023 Physician Order [id number]# 1.00TIFF Normal [facility] Physician Orderon 05-16-2023 Physician Order [id number]# 1.00TIFF Normal [facility] XR Spine Lumbosacral Minimum 4 Viewson [...] mGy = 0 DAP = 0 Normal [facility] Consent for Treatmenton 05-02 Consent for Treatment [id number]#1 .00TIFF Normal [facility] Physician Orderon 05-11-2023 Physician Order [id number]# 1.00TIFF Normal [facility] Basic metabolic 2000 panelon 04-26-2023 Anion gap [Moles/Vol] 8 mmol/L Low 9-18 [facility] Comment on above: Order Comment: Speci men Type: BLOOD SPECIMEN Ordering Facility: [facility] Address: [address] [place] [address] Performed By: #### 2 4321-2 #### [facility] CLIA [id number] [address] [facility] [place] [address] [place] Calcium [Mass/Vol] 9.8 mg/dL Normal 8.5-10.2 [facility] Comment on above: Order Comment: Speci men Type: BLOOD SPECIMEN Ordering Facility: [facility] Address: [address] [place] [address] Performed By: #### 2 4321-2 #### [facility] CLIA [id number] [address] [place] [address] [place] Chloride [Moles/Vol] 104 mmol/L Normal 97-105 [facility] Comment on above: Order Comment: Speci men Type: BLOOD SPECIMEN Ordering Facility: [facility] Address: [address] [place] [address] Performed By: #### 2 4321-2 #### [facility] CLIA [id number] [address] [place] [address] [place] CO2 [Moles/Vol] 29 mmol/L Normal 22-30 [facility] Comment on above: Order Comment: Speci men Type: BLOOD SPECIMEN Ordering Facility: [facility] Address: [address] [place] [address] Performed By: #### 2 4321-2 #### [facility] CLIA [id number] [place] [address] [place] Creatinine [Mass/Vol] 1.17 mg/dL Normal 0.73-1.22 [facility] Comment on above: Order Comment: Speci men Type: BLOOD SPECIMEN Ordering Facility: [facility] Address: [address] [place] [address] Performed By: #### 2 4321-2 #### [facility] CLIA [id number] [address] [place] [id number] [place] [address] [place] Creatinine and Glomerular filtration rate.predicted panel (S/P/Bld) 64 mL/min/1.73m??? Normal >=60 [facility] Comment on above: Order Comment: Speci men Type: BLOOD SPECIMEN Ordering Facility: [facility] Address: [address] [place] [address] Result Comment: Celia mated Glomerular Filtration Rate [...] GFR. Performed By: #### 2 4321-2 #### [facility] CLIA [id number] [address] [place] [address] [place] Glucose [Mass/Vol] 111 mg/dL High 74-99 [facility] Comment on above: Order Comment: Domenica barboza Type: BLOOD SPECIMEN Ordering Facility: [facility] Address: [address] [place] [address] Result Comment: The [place] Diabetes Association (ADA) provides guidance for cutoff [...] Standards of Medical Care in Diabetes 2016, [place] [employer]. Diabetes Care. 2016.39(Suppl 1). Performed By: #### 2 4321-2 #### [facility] [place] [id number] [address] [place] [address] [place] Potassium [Moles/Vol] 4.5 mmol/L Normal 3.7-5.1 [facility] Comment on above: Order Comment: Domenica barboza Type: BLOOD SPECIMEN Ordering Facility: [facility] Address: [address] [place] [address] Performed By: #### 2 4321-2 #### [facility] [place] [id number] [address] [place] [address] [place] Sodium [Moles/Vol] 141 mmol/L Normal 136-144 [facility] Comment on above: Order Comment: Domenica barboza Type: BLOOD SPECIMEN Ordering Facility: [facility] Address: [address] [place] [address] Performed By: #### 2 4321-2 #### [facility] IA [id number] [address] [place] [address] [place] Urea nitrogen [Mass/Vol] 20 mg/dL Normal 9-24 [facility] Comment on above: Order Comment: Speci men Type: BLOOD SPECIMEN Ordering Facility: [facility] Address: [address] [place] [address] Performed By: #### 2 4321-2 #### [facility] CLIA [id number] [facility] [address] [place] Provider Letteron 04-13-2023 Provider Letter April 13, 2023 IRENA PERAZA [address] [address] : 1945 Dear Irena, During review of your medical record we noticed that you are due for follow up appointment. Please call our office at your earliest convenience to schedule. Sincerely, [facility] [phone] Normal [facility] Ambulatory Visit Summaryon 1 Ambulatory Visit Summary IRENA PERAZA :1945 Visit Date:02/02/2023 Ambulatory Visit Instructions Your Diagnosis BPH with urinary obstruction Elevated PSA Urge incontinence Impotence Tests Performed Urnls Dip Stick Auto w/o Microscopy POC [address] Your Care Team Attending Physician - ALLAN JARVIS, Nghia Elizabeth Primary Care Physician - Scarlett Gaviria CNP This Is Your Medications List tolterodine (tolterodine [...] Elizabeth Where: [facility] Patient Educationon 10-04-20 23 Patient Education Oncology Prostate Cancer Screening Prostate [...] Where to find more information ? The [place] [employer]: www.cancer.org ? [place] [employer] Association: www.auanet.org Contact a health care [...] adds flu (more content not included)... Normal [facility] Screenson 02-02-2023 Screens [id number]#1 .00CD:127 Normal [facility] Urology Office/Clinic Noteon 02-02-2023 Urology Office/Clinic [...] with voice recognition artificial intelligence software, specifically [employer], [employer] and or [employer]. Substitutions may have occurred due to the [...] total PSA Follow-up With When Contact Information Nghia ROBERSON MD, URL [address] [address]- Additional Instructions: 6 months w/ PSA F/T Patient Education Prostate Cancer Screening IAbigail, personally scribed for Dr. Roberson on 02/02/2023 14:56:16. . Documentation recorded by the scribeAbigail, accurately reflects the services(s) I performed and [...] incomplete bl (more content not included)... Normal [facility] Comment on above: Result Comment: Elec tronically Signed By: Nghia ROBERSON MD\.br\Date and Time Signed: 02/02/23 15:00 EDT\.br\Electronically Co-Signed By: Abigail Gibbons\.br\Date and Time Co-Signed: 02/02/23 14:56 EDT CHEMISTRYOrdered By: SYSTEM SYSTEM on 01-28-2023 Free PSA [Mass/Vol] 0.7 ng/mL Invalid Interpretation Code [facility] Remisol Comment on above: Interpretive Data: T he concentration of free PSA and total PSA determined with assays from different manufacturers can vary due to differences in assay methods and specificity. Values obtained with different varnish thinner's assays cannot be used interchangeably. The methodology used to obtain this result was chemiluminescence using [employer]'s Access Hybritech PSA reagent and [employer] free PSA reagent. Free PSA/Total PSA [Mass fraction] 28.0 % Normal >=25.0% [facility] Remisol Comment on above: Interpretive Data: T [...] 2.6 ng/mL Normal 0.1 - 3.5 ng/mL [facility] Remisol Comment on above: Interpretive Data: T he concentration of PSA determined by different manufacturers can vary due to differences in assay methods and reagent specificity. Values obtained from different assay methods cannot be used interchangeably. The methodology used for this result was chemiluminescence using [employer]'s Access Hybritech PSA reagent. Consent for Treatmenton 01-01 Consent for Treatment [id number]#1 .00CD:127 Normal [facility] PSA Free & Totalon 3 Free PSA [Mass/Vol] 0.7 ng/mL Invalid Interpretation Code [facility] Comment on above: Result Comment: The concentration of free PSA and total PSA determined with assays from different manufacturers can vary due to differences in assay methods and specificity. Values obtained with different varnish thinner's assays cannot be used interchangeably. The methodology used to obtain this result was chemiluminescence using [employer] Access Hybritech PSA reagent and Access Hybritech free PSA reagent. Performed By: #### 1 7429208, 9460451, 9950193, 7876124, 3509241, 0243931, 7589240 #### [facility] [address] [place] [address] Free PSA/Total PSA [Mass fraction] 28.0 % Normal >=25.0 [facility] Comment on above: Result Comment: The [...] LEYLA, 1998; 279:1542-7 Performed By: #### 1 2911383, 7605293, 8611808, 4318292, 5603355, 7733974, 3148609 #### [facility] [address] [place] [address] Prostate specific Ag [Mass/Vol] 2.6 ng/mL Normal 0.1-3.5 [facility] Comment on above: Result Comment: The concentration of PSA determined by different manufacturers can vary due to differences in assay methods and reagent specificity. Values obtained from different assay methods cannot be used interchangeably. The methodology used for this result was chemiluminescence using [employer]'s Access Hybritech PSA reagent. Performed By: #### 1 8406640, 6728770, 3069720, 4919405, 6273322, 4017800, 6860797 #### [facility] [address] [place] [address] Physician Orderon 01-28-2023 Physician Order [id number]#1 .00CD:127 Normal [facility] Auto Diffon 12-24-2022 Basophils/100 WBC (Bld) 1.0 % Normal 0.0-2.0 [facility] Comment on above: Order Comment: Order added by Discern Expert. Performed By: #### 1 8032577, 0188694, 4651692, 2890339, 7758500, 6666639, 9862156 #### [facility] [address] [place] [address] Basophils/Leukocytes Auto (Bld) [Pure # fraction] 0.1 E9/L Normal 0.0-0.2 [facility] Comment on above: Order Comment: Order added by Discern Expert. Performed By: #### 1 9174156, 7316420, 1245062, 4100535, 9820791, 0173652, 1952065 #### [facility] [address] [place] [address] Eosinophils/100 WBC (Bld) 2.7 % Normal 0.0-8.0 [facility] Comment on above: Order Comment: Order added by Discern Expert. Performed By: #### 1 9111116, 9747302, 1880665, 3650906, 8030237, 0121547, 1273769 #### [facility] [address] [place] [address] Eosinophils/Leukocyte s Auto (Bld) [Pure # fraction] 0.2 E9/L Normal 0.0-0.5 [facility] Comment on above: Order Comment: Order added by Discern Expert. Performed By: #### 1 3826070, 4325437, 9798291, 8491404, 6232684, 9238461, 0719252 #### [facility] [address] [place] [address] Lymphocytes/100 WBC (Bld) 16.3 % Normal 14.0-50.0 [facility] Comment on above: Order Comment: Order added by Discern Expert. Performed By: #### 1 1648708, 4095556, 8983922, 2487293, 1156070, 8649820, 6627803 #### [facility] [address] [place] [address] Lymphocytes/Leukocyte s Auto (Bld) [Pure # fraction] 1.0 E9/L Normal 1.0-4.0 [facility] Comment on above: Order Comment: Order added by Discern Expert. Performed By: #### 1 7675800, 2393225, 1780759, 0150173, 1033493, 7859462, 2439264 #### [facility] [address] [place] [address] Monocytes/100 WBC (Bld) 12.1 % Normal 4.0-14.0 [facility] Comment on above: Order Comment: Order added by Discern Expert. Performed By: #### 1 8465505, 7175447, 8179782, 3438036, 3696551, 5041763, 8520014 #### [facility] [address] [place] [address] Monocytes/Leukocytes Auto (Bld) [Pure # fraction] 0.7 E9/L Normal 0.2-1.0 [facility] Comment on above: Order Comment: Order added by Discern Expert. Performed By: #### 1 0613437, 7990119, 2787029, 5142655, 2805674, 2366226, 3686306 #### [facility] [address] [place] [address] Neutrophils/100 WBC (Bld) 67.9 % Normal 36.0-75.0 [facility] Comment on above: Order Comment: Order added by Discern Expert. Performed By: #### 1 1110930, 7716010, 1887072, 1239156, 0941999, 0933739, 5703128 #### [facility] [address] [place] [address] Neutrophils/Leukocyte s Auto (Bld) [Pure # fraction] 4.0 E9/L Normal 2.0-7.5 [facility] Comment on above: Order Comment: Order added by Discern Expert. Performed By: #### 1 9904084, 5638796, 5684687, 0907019, 2090703, 1568165, 8127038 #### [facility] [address] [place] [address] CBC w/ Auto Diffon Erythrocyte distribution width (RBC) [Ratio] 14.3 % High 10.9-14.2 [facility] Comment on above: Performed By: #### 1 6224770, 3471574, 9982412, 3075535, 5147096, 5341735, 9652251 #### [facility] [address] [place] [address] Hematocrit (Bld) [Volume fraction] 36.8 % Low 37.7-49.0 [facility] Comment on above: Performed By: #### 1 6753411, 5884371, 8668845, 4523413, 4911523, 7850633, 5583502 #### [facility] [address] [place] [address] Hemoglobin (Bld) [Mass/Vol] 12.2 g/dL Low 13.5-17.5 [facility] Comment on above: Performed By: #### 1 0109927, 6116321, 7569023, 3073236, 1439089, 9668367, 8365334 #### [facility] [address] [place] [address] MCH (RBC) [Entitic mass] 31.7 pg Normal 27.0-34.0 [facility] Comment on above: Performed By: #### 1 3166737, 0986786, 5895817, 2272202, 3543522, 3598323, 2376516 #### [facility] [address] [place] [address] MCHC (RBC) [Mass/Vol] 33.1 g/dL Normal 31.4-36.0 [facility] Comment on above: Performed By: #### 1 7803932, 3509010, 1758375, 8955364, 3619649, 7144896, 0794294 #### [facility] [address] [place] [address] MCV (RBC) [Entitic vol] 95.9 fL Normal 80.0-100.0 [facility] Comment on above: Performed By: #### 1 4710754, 1628779, 9550754, 7272031, 4265683, 4768070, 7345390 #### [facility] [address] [place] [address] Platelet mean volume (Bld) [Entitic vol] 7.7 fL Normal 6.4-10.8 [facility] Comment on above: Performed By: #### 1 1979344, 9272468, 1366847, 9884860, 6970253, 4417608, 0005895 #### [facility] [address] [place] [address] Platelets (Bld) [#/Vol] 277.0 E9/L Normal 150.0-500.0 [facility] Comment on above: Performed By: #### 1 [id number], 5416247, 1574284, 9656538, 1943034, 0961694, 0813203 #### [facility] [address] [place] [address] RBC (Bld) [#/Vol] 3.8 E12/L Low 4.3-5.9 [facility] Comment on above: Performed By: #### 1 [id number], 1524364, 4911175, 3084850, 7543018, 1882244, 8077161 #### [facility] [address] [place] [address] WBC corrected for nucl RBC Auto (Bld) [#/Vol] 5.9 E9/L Normal 4.0-11.0 [facility] Comment on above: Performed By: #### 1 [id number], 5807905, 2229398, 4500172, 5484046, 6789290, 7043356 #### [facility] [address] [place] [address] CHEMISTRYOrdered By: SYSTEM SYSTEM on 12-24-2022 Albumin [...] 3.7 mmol/L Normal 3.5 - 5.3 mmol/L [facility] Protein [Mass/Vol] 7.2 g/dL Normal 6.0 - 7.8 gm/dL [facility] Sodium [Moles/Vol] 141 mmol/L Normal 135 - 145 mmol/L [facility] Transferrin [Mass/Vol] 288 mg/dL Normal 200 - 370 mg/dL [facility] Urea nitrogen [Mass/Vol] 16 mg/dL Normal 5 - 21 mg/dL [facility] Urea nitrogen/Creatinine [Mass ratio] 14 mg/mg Normal 10 - 20 [facility] CMPon 12-24-2022 Albumin [Mass/Vol] 4.0 g/dL Normal 3.3-5.0 [facility] Comment on above: Performed By: #### 1 [id number], 4569518, 6033521, 3145335, 8192842, 6561247, 4492145 #### [facility] [address] [place] [address] Albumin/Globulin (S) [Mass conc ratio] 1.2 Normal 1.1-2.2 [facility] Comment on above: Performed By: #### 1 [id number], 7146666, 2706100, 8149258, 8605034, 7975765, 8811699 #### [facility] [address] [place] [address] ALP [Catalytic activity/Vol] 58 Int._Unit/L Normal 21-98 [facility] Comment on above: Performed By: #### 1 6542137, 0329718, 6112155, 5969981, 4692673, 1527025, 4792446 #### [facility] [address] [place] [address] ALT No additional P-5'-P [Catalytic activity/Vol] 21 Int._Unit/L Normal 6-46 [facility] Comment on above: Performed By: #### 1 9105415, 5166605, 5386793, 7555191, 9602836, 5440227, 0614433 #### [facility] [address] [place] [address] Anion gap [Moles/Vol] 12 mmol/L Normal 6-16 [facility] Comment on above: Performed By: #### 1 0301567, 8934024, 4740034, 1670570, 8208762, 7019640, 1474564 #### [facility] [address] [place] [address] AST [Catalytic activity/Vol] 31 Int._Unit/L Normal 5-43 [facility] Comment on above: Performed By: #### 1 1435003, 7909254, 6855532, 9892178, 6157979, 9518691, 0069113 #### [facility] [address] [place] [address] Bilirubin [Mass/Vol] 0.6 mg/dL Normal 0.0-1.1 [facility] Comment on above: Performed By: #### 1 7459644, 8455952, 7403397, 2762163, 3803027, 7726037, 6560701 #### [facility] [address] [place] [address] Calcium [Mass/Vol] 9.7 mg/dL Normal 8.9-11.1 [facility] Comment on above: Performed By: #### 1 0002312, 9468005, 9676354, 9800629, 1956334, 8829581, 6556709 #### [facility] [address] [place] [address] Chloride [Moles/Vol] 105 mmol/L Normal 101-111 [facility] Comment on above: Performed By: #### 1 5327283, 9801025, 4325263, 9973937, 7564999, 4871135, 5680678 #### [facility] [address] [place] [address] CO2 [Moles/Vol] 28 mmol/L Normal 21-31 [place] Comment on above: Performed By: #### 1 4900719, 8146826, 0704259, 1831080, 2151320, 0087656, 7301593 #### [facility] [address] [place] [address] Creatinine [Mass/Vol] 1.1 mg/dL Normal 0.5-1.3 [facility] Comment on above: Performed By: #### 1 6538588, 0924784, 0842169, 4904911, 1538527, 6390994, 7127469 #### [facility] [address] [place] [address] Globulin (S) [Mass/Vol] 3.2 g/dL Normal 1.4-4.0 [facility] Comment on above: Performed By: #### 1 8628069, 5034589, 2188486, 8362551, 0973719, 6131387, 6519220 #### [facility] [address] [place] [address] Glucose [Mass/Vol] 94 mg/dL Normal 55-199 [facility] Comment on above: Result Comment: If t his glucose result represents a fasting glucose, interpretation should refer to the following reference range: 55-99 mg/dL Performed By: #### 1 8276006, 3835874, 7030596, 6084731, 9122107, 6849961, 0297698 #### [facility] [address] [place] [address] Potassium [Moles/Vol] 3.7 mmol/L Normal 3.5-5.3 [facility] Comment on above: Performed By: #### 1 2831529, 6918449, 0643220, 0461866, 4751000, 0809019, 4513540 #### [facility] [address] [place] [address] Protein [Mass/Vol] 7.2 g/dL Normal 6.0-7.8 [facility] Comment on above: Performed By: #### 1 6279058, 7895031, 1765517, 7185168, 3695979, 9926442, 9499625 #### [facility] [address] [place] [address] Sodium [Moles/Vol] 141 mmol/L Normal 135-145 [facility] Comment on above: Performed By: #### 1 0083003, 2052108, 8851015, 2133390, 8959858, 8031215, 3066485 #### [facility] [address] [place] [address] Urea nitrogen [Mass/Vol] 16 mg/dL Normal 5-21 [facility] Comment on above: Performed By: #### 1 4332814, 9613741, 0266385, 7607707, 1648286, 1447204, 8654622 #### [facility] [address] [place] [address] Urea nitrogen/Creatinine [Mass ratio] 14 No Units Normal 10-20 [facility] Comment on above: Performed By: #### 1 5350575, 8873756, 6176464, 9635257, 1534533, 4506849, 6968410 #### [facility] [address] [place] [address] Consent for Treatmenton 12-01 Consent for Treatment [id number] [facility] [id number] Normal [facility] Ferritinon 12-24-2022 Ferritin [Mass/Vol] 128 ng/mL Normal 24-336 [facility] Comment on above: Result Comment: NORM ALS MEN <30 YRS 16-132 ng/mL MEN >30 YRS 8-338 ng/mL WOMEN (PREMEN) 6-104 ng/mL WOMEN (POSTMEN) 12-210 ng/mL Performed By: #### 1 2781354, 2460216, 8942717, 6413082, 9896948, 7655492, 1031740 #### [facility] [address] [place] [address] HEMATOLOGYOrdered By: SYSTEM SYSTEM on 12-24-2022 Basophils/100 [...] 3.8 E12/L Low 4.3 - 5.9 E12/L [facility] WBC corrected for nucl RBC Auto (Bld) [#/Vol] 5.9 E9/L Normal 4.0 - 11.0 E9/L [facility] Ironon 12-24-2022 Iron [Mass/Vol] 84 microgram/dL Normal 35-153 [facility] Comment on above: Performed By: #### 1 4174020, 2365833, 9910652, 2923411, 7342310, 9401338, 9492797 #### [facility] [address] [place] [address] Iron Saturationon 12-24-2022 Iron binding capacity [Mass/Vol] 403 microgram/dL High 250-400 [facility] Comment on above: Performed By: #### 1 9702403, 9759524, 2827176, 5714642, 0554189, 8193063, 5919516 #### [facility] [address] [place] [address] Iron saturation [Mass fraction] 21 % Normal 20-50 [facility] Comment on above: Performed By: #### 1 3167790, 6423472, 0902300, 6453887, 7830474, 8820507, 7284136 #### [facility] [address] [place] [address] Transferrinon 12-24-2022 Transferrin [Mass/Vol] 288 mg/dL Normal 200-370 [facility] Comment on above: Performed By: #### 1 4442518, 8554819, 2710494, 7999264, 1194933, 5411447, 4338883 #### [facility] [address] [place] [address] eGFRon 12-24-2022 GFR/1.73 sq M.predicted among non-blacks MDRD (S/P/Bld) [Vol rate/Area] 70 mL/min/1.73 m2 Normal >=59 [facility] Comment on above: Order Comment: Order added by Discern Expert. Result Comment: Mixing Technician mary jane kidney disease could be indicated at eGFR's of less than 60 mL/min/1.73m2. Kidney failure is indicated at less than 15 mL/min/1.73m2. Performed By: #### 1 6241787, 5146926, 2315042, 7671379, 8200715, 5944457, 2028479 #### [facility] [address] [place] [address] CHEMISTRYOrdered By: SYSTEM SYSTEM on 07-21-2022 Albumin [Mass/Vol] 3.6 g/dL Normal 3.3 - 5.0 gm/dL [facility] Albumin/Globulin [Mass ratio] 1.0 {ratio} Low [...] 3.7 E12/L Low 4.3 - 5.9 E12/L [facility] WBC corrected for nucl RBC Auto (Bld) [#/Vol] 5.9 E9/L Normal 4.0 - 11.0 E9/L [facility] CBC AUTO DIFFon 05-30-2022 BASO # 0.0 103/ul Normal 0.0-0.1 [facility] Comment on above: Performed By: #### U RCX #### [facility] [address] [address] [address] Luis Alberto Olivia Basophils/100 WBC (Bld) 0.5 % Normal 0.2-2.0 [facility] Comment on above: Performed By: #### U RCX #### [facility] [address] [place] [address] Dr. Luis Alberto Olivia EO # 0.2 103/ul Normal 0.0-0.7 [facility] Comment on above: Performed By: #### U RCX #### [facility] [address] [place] [address] Dr. Luis Alberto Olivia Eosinophils/100 WBC (Bld) 2.2 % Normal 0.9-7.0 [facility] Comment on above: Performed By: #### U RCX #### [facility] [address] [place] [address] Dr. Luis Alberto Olivia Erythrocyte distribution width (RBC) [Ratio] 14.6 % Normal 11.0-15.0 [facility] Comment on above: Performed By: #### U RCX #### [facility] [address] [place] [address] Dr. Luis Alberto Olivia Hematocrit (Bld) [Volume fraction] 32.6 % Critically low 42.0-54.0 [facility] Comment on above: Performed By: #### U RCX #### [facility] [address] [place] [address] Dr. Luis Alberto Olivia Hemoglobin (Bld) [Mass/Vol] 11.1 g/dL Critically low 14.0-18.0 [facility] Comment on above: Performed By: #### U RCX #### [facility] [address] [address] [address] Luis Alberto Olivia IG # 0.05 10e3/ul Critically high 0.00-0.[address] [facility] Comment on above: Performed By: #### U RCX #### [facility] [address] [address] [address] Luis Alberto Olivia IG % 0.6 % Critically high 0.0-0.5 [facility] Comment on above: Performed By: #### U RCX #### [facility] [address] [address] [address] Luis Ablerto Olivia LYMPH # 0.9 103/ul Critically low 1.2-3.8 [facility] Comment on above: Performed By: #### U RCX #### [facility] [address] [address] [address] Luis Alberto Olivia Lymphocytes/100 WBC (Bld) 11.7 % Critically low 20.5-60.0 [facility] Comment on above: Performed By: #### U RCX #### [facility] [address] [address] [address] Luis Alberto Olivia MANUAL DIFF REQ NO Normal [facility] Comment on above: Performed By: #### U RCX #### [facility] [address] [address] [address] Luis Alberto Olivia MCH (RBC) [Entitic mass] 31.2 pg Normal 25.9-34.0 [facility] Comment on above: Performed By: #### U RCX #### [facility] [address] [address] [address] Luis Alberto Olivia MCHC (RBC) [Mass/Vol] 34.0 g/dL Normal 29.9-35.2 [facility] Comment on above: Performed By: #### U RCX #### [facility] [address] [address] [address] Luis Alberto Olivia MCV (RBC) [Entitic vol] 91.6 fL Normal 80.0-94.0 [facility] Comment on above: Performed By: #### U RCX #### [facility] [address] [address] [address] Luis Alberto Olivia MONO # 0.8 103/ul Normal 0.3-0.8 [facility] Comment on above: Performed By: #### U RCX #### [facility] [address] [address] [address] Luis Alberto Olivia Monocytes/100 WBC (Bld) 10.2 % Normal 1.7-12.0 [facility] Comment on above: Performed By: #### U RCX #### [facility] [address] [address] [address] Luis Alberto Olivia NEUT # 5.9 103/ul Normal 1.4-6.5 [facility] Comment on above: Performed By: #### U RCX #### [facility] [address] [place] [address] Dr. Luis Alberto Olivia Neutrophils/100 WBC (Bld) 74.8 % Normal 43.0-75.0 [facility] Comment on above: Performed By: #### U RCX #### [facility] [address] [place] [address] Dr. Luis Alberto Olivia Platelet mean volume (Bld) [Entitic vol] 9.1 fL Critically low 9.5-13.5 [facility] Comment on above: Performed By: #### U RCX #### [facility] [address] [place] [address] Dr. Luis Alberto Olivia PLT 237 103/ul Normal 150-450 [facility] Comment on above: Performed By: #### U RCX #### [facility] [address] [place] [address] Dr. Luis Alberto Olivia RBC 3.56 106/ul Critically low 4.70-6.10 [facility] Comment on above: Performed By: #### U RCX #### [facility] [address] [address] [address] Luis Alberto Olivia WBC 7.9 103/ul Normal 4.0-11.0 [facility] Comment on above: Performed By: #### U RCX #### [facility] [address] [place] [address] Dr[address] ALAN ORNELAS CONon 3 CT CSPINE WO CON EXAMINATION: [...] BOUBACAR BATES Date: 2022-05-30 18:39 Normal [facility] CBC W Auto Differential pane l (Bld)on 05-18-2022 Basophils (Bld) [#/Vol] 0.07 10*3/uL <0.11 k/uL [facility] Basophils/100 WBC (Bld) 1.0 % [facility] Differential cell count method Nom (Bld) Auto [facility] Eosinophils (Bld) [#/Vol] 0.18 10*3/uL <0.46 k/uL [facility] Eosinophils/100 WBC (Bld) 2.6 % [facility] Erythrocyte distribution width (RBC) [Ratio] 14.2 % 11.5 - 15.0 % [facility] Hematocrit (Bld) [Volume fraction] 41.3 % 39.0 - 51.0 % [facility] Hemoglobin (Bld) [Mass/Vol] 13.3 g/dL 13.0 - 17.0 g/dL [facility] Immature granulocytes (Bld) [#/Vol] 0.06 10*3/uL <0.10 k/uL [facility] Immature granulocytes/100 WBC (Bld) 0.9 % [facility] Lymphocytes (Bld) [#/Vol] 1.17 10*3/uL 1.00 - 4.00 k/uL [facility] Lymphocytes/100 WBC (Bld) 16.9 % [facility] MCH (RBC) [Entitic mass] 30.8 pg 26.0 - 34.[address] [facility] MCHC (RBC) [Mass/Vol] 32.2 g/dL 30.5 - 36.0 g/dL [facility] MCV (RBC) [Entitic vol] 95.6 fL 80.0 - 100.[address] [facility] Monocytes (Bld) [#/Vol] 0.68 10*3/uL <0.87 k/uL [facility] Monocytes/100 WBC (Bld) 9.8 % [facility] Neutrophils (Bld) [#/Vol] 4.78 10*3/uL 1.45 - 7.50 k/uL [facility] Neutrophils/100 WBC (Bld) 68.8 % [facility] Nucleated RBC (Bld) [#/Vol] <0.01 k/uL [facility] Nucleated RBC/100 WBC (Bld) [Ratio] 0.0 /[address] [facility] Platelet mean volume (Bld) [Entitic vol] 9.5 fL 9.0 - 12.[address] [facility] Platelets (Bld) [#/Vol] 271 10*3/uL 150 - 400 k/uL [facility] RBC (Bld) [#/Vol] 4.32 10*6/uL 4.20 - 6.0 0 m/uL [facility] WBC (Bld) [#/Vol] 6.94 10*3/uL 3.70 - 11. 00 k/uL [facility] Kassie 05-10-2022 HAYDER Telephone (FVPRATamar) IRENA PERAZA ([id number]) 1945 M Date Time Provider Department 05/10/22 [place] During your visit today, we recorded the following information about you: Ny Li APRN.CHA 05/10/2022 1:21 PM Signed I received a refill request for his statin. He is overdue for lipids. I see some labs scanned in from november but no FLP. Please ask him to get this done thanks. Nadir Flaherty LPN 05/10/2022 3:46 PM Signed Called and left detailed VM for patient to get lab work completed. VICTOR HUGO Del Rosario 05/12/2022 11:21 AM Signed Patient called back. [...] get the lab work completed at any [facility] lab. Nadir Flaherty LPN Allergies As of [...] 1 tablet by mouth once daily. - Yhoru-3-FAK-EPA-Fish Oil 1,000 mg (120 mg-180 mg) cap [...] (FLONASE) 50 mcg/actuation nasal spray Use 1 [place] in each nostril once daily. - coenzyme [...] 05/10/2022 Noted Resolved PAF (paroxysmal atrial fibrillation) (HCC) [...] monitoring Tikosyn (more content not included)... Normal [facility] - Chemistry and C hemistry [...] 59 mL/min/1.73 m2 Normal >=59mL/min/1 .73 m2 [facility] Chem S Globulin (S) [Mass/Vol] 4.0 g/dL [...] Laboratory - Hematology and Cell countsOrdered By: Newsle SYSTEM on 03-04-2022 Basophils/100 WBC (Bld) 0.7 % Normal 0.0 [...] 5.6 E9/L Normal 2.0 - 7.5 E9/L [facility] [...] 32.9 g/dL Normal 31.4 - 36.0 gm/dL [facility] MCV (RBC) [Entitic vol] 95.4 fL Normal 80.0 - 100.0 fL [facility] Platelet mean volume (Bld) [Entitic vol] 7.7 fL Normal 6.4 - 10.8 fL [facility] Platelets (Bld) [#/Vol] 276.0 E9/L Normal 150.0 - 500.0 E9/L [facility] RBC (Bld) [#/Vol] 3.6 E12/L Low 4.3 - 5.9 E12/L [facility] WBC corrected for nucl RBC Auto (Bld) [#/Vol] 4.7 E9/L Normal 4.0 - 11.0 E9/L [facility] BNPon 01-24-2022 Natriuretic peptide B (Bld) [Mass/Vol] 671.0 pg/mL Normal <=1,800.0 [facility] Comment on above: Performed By: #### B LDCX2 #### [facility] [address] [place] [address] Dr. Luis Alberto Olivia CARDIAC ANGELI ADMITon 022 CK [Catalytic activity/Vol] 71 U/L Normal 39-308 [facility] Comment on above: Performed By: #### B LDCX2 #### [facility] [address] [place] [address] Dr. Luis Alberto Olivia CK.MB [Mass/Vol] 1.85 ng/mL Normal <=3.60 [facility] Comment on above: Performed By: #### B LDCX2 #### [facility] [address] [place] [address] Dr. Luis Alberto Olivia HSTROP 27.3 pg/mL Normal 4.0-76.1 [facility] Comment on above: Result Comment: CUT- OFF POINTS HAVE BEEN ESTABLISHED BASED ON THE FOURTH UNIVERSAL DEFINITIONS OF MYOCARDIAL INFARCTION. THE UPPER REFERENCE LIMIT (URL) OF TROPONIN, DEFINED THE 99TH PERCENTILE OF cTnI DISTRIBUTION IN A REFERENCE POPULATION, HAS BEEN CONFIRMED THE DECISION THRESHOLD FOR GA DIAGNOSIS. Performed By: #### B LDCX2 #### [facility] [address] [address] [address] Luis Alberto Olivia YADIRA 54 ng/mL Normal 16-96 [facility] Comment on above: Performed By: #### B LDCX2 #### [facility] [address] [place] [address] Dr. Luis Alberto Olivia CBC AUTO DIFFon 01-24-2022 BASO # 0.1 103/ul Normal 0.0-0.1 [facility] Comment on above: Performed By: #### U RCX #### [facility] [address] [place] [address] Dr. Luis Alberto Olivia Basophils/100 WBC (Bld) 1.0 % Normal 0.2-2.0 [facility] Comment on above: Performed By: #### U RCX #### [facility] [address] [place] [address] Dr. Luis Alberto Olivia EO # 0.2 103/ul Normal 0.0-0.7 [facility] Comment on above: Performed By: #### U RCX #### [facility] [address] [place] [address] Dr. Luis Alberto Olivia Eosinophils/100 WBC (Bld) 3.7 % Normal 0.9-7.0 [facility] Comment on above: Performed By: #### U RCX #### [facility] [address] [place] [address] Dr. Luis Alberto Olivia Erythrocyte distribution width (RBC) [Ratio] 17.9 % Critically high 11.0-15.0 [facility] Comment on above: Performed By: #### U RCX #### [facility] [address] [place] [address] Dr. Luis Alberto Olivia Hematocrit (Bld) [Volume fraction] 30.7 % Critically low 42.0-54.0 [facility] Comment on above: Performed By: #### U RCX #### [facility] [address] [place] [address] Dr. Luis Alberto Olivia Hemoglobin (Bld) [Mass/Vol] 9.7 g/dL Critically low 14.0-18.0 [facility] Comment on above: Performed By: #### U RCX #### [facility] [address] [address] [address] Luis Alberto Olivia IG # 0.06 10e3/ul Critically high 0.00-0.[address] [facility] Comment on above: Performed By: #### U RCX #### [facility] [address] [address] [address] Luis Alberto Olivia IG % 1.2 % Critically high 0.0-0.5 [facility] Comment on above: Performed By: #### U RCX #### [facility] [address] [address] [address] Luis Alberto Olivia LYMPH # 0.7 103/ul Critically low 1.2-3.8 [facility] Comment on above: Performed By: #### U RCX #### [facility] [address] [address] [address] Luis Alberto Olivia Lymphocytes/100 WBC (Bld) 14.9 % Critically low 20.5-60.0 [facility] Comment on above: Performed By: #### U RCX #### [facility] [address] [address] [address] Luis Alberto Olivia MANUAL DIFF REQ NO Normal [facility] Comment on above: Performed By: #### U RCX #### [facility] [address] [address] [address] Luis Alberto Olivia MCH (RBC) [Entitic mass] 31.6 pg Normal 25.9-34.0 [facility] Comment on above: Performed By: #### U RCX #### [facility] [address] [address] [address] Luis Alberto Olivia MCHC (RBC) [Mass/Vol] 31.6 g/dL Normal 29.9-35.2 [facility] Comment on above: Performed By: #### U RCX #### [facility] [address] [address] [address] Luis Alberto Olivia MCV (RBC) [Entitic vol] 100.0 fL Critically high 80.0-94.0 [facility] Comment on above: Performed By: #### U RCX #### [facility] [address] [address] [address] Luis Alberto Olivia MONO # 0.5 103/ul Normal 0.3-0.8 [facility] Comment on above: Performed By: #### U RCX #### [facility] [address] [address] [address] Luis Alberto Olivia Monocytes/100 WBC (Bld) 9.3 % Normal 1.7-12.0 [facility] Comment on above: Performed By: #### U RCX #### [facility] [address] [address] [address] Luis Alberto Olivia NEUT # 3.4 103/ul Normal 1.4-6.5 [facility] Comment on above: Performed By: #### U RCX #### [facility] [address] [place] [address] Dr. Luis Alberto Olivia Neutrophils/100 WBC (Bld) 69.9 % Normal 43.0-75.0 [facility] Comment on above: Performed By: #### U RCX #### [facility] [address] [address] [address] Luis Alberto Olivia Platelet mean volume (Bld) [Entitic vol] 9.5 fL Normal 9.5-13.5 [facility] Comment on above: Performed By: #### U RCX #### [facility] [address] [address] [address] Luis Alberto Olivia PLT 259 103/ul Normal 150-450 [facility] Comment on above: Performed By: #### U RCX #### [facility] [address] [address] [address] Luis Alberto Olivia RBC 3.07 106/ul Critically low 4.70-6.10 [facility] Comment on above: Performed By: #### U RCX #### [facility] [address] [address] [address] Luis Alberto Olivia WBC 4.8 103/ul Normal 4.0-11.0 [facility] Comment on above: Performed By: #### U RCX #### [facility] [address] [place] [address] Dr. Luis Alberto Olivia Covid-19 PCR (CVDTB)on 01-01 SARS-CoV-2 (COVID-19) RNA BOAZ+probe Ql (Unsp spec) Not detected Normal NOT DETECTED [facility] Comment on above: Result Comment: When diagnostic [...] for this test is supported by the [place] of Health and Human Service's declaration that [...] used). Performed By: #### L IVER #### [facility] [address] [place] [address] Dr. Luis Alberto Olivia ER URINE PROFILEon Bilirubin Ql (U) Negative Normal NEGATIVE [facility] Comment on above: Performed By: #### R ETYPE #### [facility] [address] [place] [address] Dr. Luis Alberto Olivia Clarity (U) CLEAR Normal CLEAR [facility] Comment on above: Performed By: #### R ETYPE #### [facility] [address] [place] [address] Dr. Luis Alberto Olivia Color (U) LT. YELLOW Normal YELLOW [facility] Comment on above: Performed By: #### R ETYPE #### [facility] [address] [place] [address] Dr. Luis Alberto Olivia ERUAHD A micrscopic examination will be performed if indicated. Normal [facility] Comment on above: Performed By: #### R ETYPE #### [facility] [address] [address] [address] Luis Alberto Olivia Glucose Ql (U) Negative Normal NEGATIVE [facility] Comment on above: Performed By: #### R ETYPE #### [facility] [address] [address] [address] Luis Alberto Olivia Hemoglobin Ql (U) Negative Normal NEGATIVE [facility] Comment on above: Performed By: #### R ETYPE #### [facility] [address] [place] [address] Dr. Luis Alberto Olivia Ketones Ql (U) Negative Normal NEGATIVE [facility] Comment on above: Performed By: #### R ETYPE #### [facility] [address] [place] [address] Dr. Luis Alberto Olivia LEUKOCYTES Negative Normal NEGATIVE [facility] Comment on above: Performed By: #### R ETYPE #### [facility] [address] [address] [address] Luis Alberto Olivia Nitrite Ql (U) Negative Normal NEGATIVE [facility] Comment on above: Performed By: #### R ETYPE #### [facility] [address] [place] [address] Dr. Luis Alberto Olivia pH (U) 6.0 [pH] Normal 5-9 [facility] Comment on above: Performed By: #### R ETYPE #### [facility] [address] [place] [address] Dr. Luis Alberto Olivia SPEC GRAVITY 1.010 Normal 1.005-<=1.02 5 [facility] Comment on above: Performed By: #### R ETYPE #### [facility] [address] [place] [address] Dr. Luis Alberto Olivia UA PROTEIN Negative Normal NEGATIVE/ TRACE [facility] Comment on above: Performed By: #### R ETYPE #### [facility] [address] [place] [address] Dr. Luis Alberto Olivia UR MICRO IND NOT INDICATED Normal [facility] Comment on above: Performed By: #### R ETYPE #### [facility] [address] [place] [address] Dr. Luis Alberto Olivia Urobilinogen Qn (U) 0.2 {Srini'U}/dL Normal 0.2 - 1. 0 [facility] Comment on above: Performed By: #### R ETYPE #### [facility] [address] [place] [address] Dr. Luis Alberto Olivia PROF 14(COMP METB)on 022 Albumin [Mass/Vol] 3.4 g/dL Normal 3.4-5.0 [facility] Comment on above: Performed By: #### T RANSFR #### [facility] [address] [place] [address] Dr. Luis Alberto Olivia Albumin/Globulin [Mass ratio] 1.0 {ratio} Normal [facility] Comment on above: Performed By: #### T RANSFR #### [facility] [address] [place] [address] Dr. Luis Alberto Olivia ALP [Catalytic activity/Vol] 59 U/L Normal 46-116 [facility] Comment on above: Performed By: #### T RANSFR #### [facility] [address] [place] [address] Dr. Luis Alberto Olivia ALT [Catalytic activity/Vol] 22 U/L Normal 16-63 [facility] Comment on above: Performed By: #### T RANSFR #### [facility] [address] [place] [address] Dr. Luis Alberto Olivia Anion gap [Moles/Vol] 10.2 mmol/L Normal [facility] Comment on above: Performed By: #### T RANSFR #### [facility] [address] [place] [address] Dr. Luis Alberto Olivia AST [Catalytic activity/Vol] 18 U/L Normal 15-37 [facility] Comment on above: Performed By: #### T RANSFR #### [facility] [address] [place] [address] Dr. Luis Alberto Olivia Bilirubin [Mass/Vol] 0.3 mg/dL Normal 0.2-1.0 [facility] Comment on above: Performed By: #### T RANSFR #### [facility] [address] [address] [address] Luis Alberto Olivia Calcium [Mass/Vol] 9.2 mg/dL Normal 8.5-10.1 [facility] Comment on above: Performed By: #### T RANSFR #### [facility] [address] [address] [address] Luis Alberto Olivia Chloride [Moles/Vol] 106 mmol/L Normal 98-107 [facility] Comment on above: Performed By: #### T RANSFR #### [facility] [address] [address] [address] Luis Alberto Olivia CO2 [Moles/Vol] 28.6 mmol/L Normal 21.0-32.0 [facility] Comment on above: Performed By: #### T RANSFR #### [facility] [address] [place] [address] Dr. Luis Alberto Olivia Creatinine [Mass/Vol] 1.14 mg/dL Normal 0.70-1.30 [facility] Comment on above: Performed By: #### T RANSFR #### [facility] [address] [place] [address] Dr. Luis Alberto Olivia EGFR-AF KAZAKH >60 Normal >=60 [facility] Comment on above: Performed By: #### T RANSFR #### [facility] [address] [address] [address] Luis Alberto Olivia EGFR-NON AF KAZAKH >60 Normal >=60 [facility] Comment on above: Performed By: #### T RANSFR #### [facility] [address] [address] [address] Luis Alberto Olivia Globulin (S) [Mass/Vol] 3.4 g/dL Normal [facility] Comment on above: Performed By: #### T RANSFR #### [facility] [address] [address] [address] Luis Alberto Olivia Glucose [Mass/Vol] 110 mg/dL Critically high 74-106 [facility] Comment on above: Performed By: #### T RANSFR #### [facility] [address] [address] [address] Luis Alberto Olivia Potassium [Moles/Vol] 3.8 mmol/L Normal 3.5-5.1 [facility] Comment on above: Performed By: #### T RANSFR #### [facility] [address] [place] [address] Dr. Luis Alberto Olivia Protein [Mass/Vol] 6.8 g/dL Normal 6.4-8.2 [facility] Comment on above: Performed By: #### T RANSFR #### [facility] [address] [place] [address] Dr. Luis Alberto Olivia Sodium [Moles/Vol] 141 mmol/L Normal 136-145 [facility] Comment on above: Performed By: #### T RANSFR #### [facility] [address] [place] [address] Dr. Luis Alberto Olivia Urea nitrogen [Mass/Vol] 12.0 mg/dL Normal 7.0-18.0 [facility] Comment on above: Performed By: #### T RANSFR #### [facility] [address] [place] [address] Dr. Luis Alberto Olivia Urea nitrogen/Creatinine [Mass ratio] 10.5 mg/mg Normal [facility] Comment on above: Performed By: #### T RANSFR #### [facility] [address] [place] [address] Dr. Luis Alberto Olivia PROTIMEon 01-24-2022 INR Coag (PPP) [Relative time] 0.99 {INR} Normal [facility] Comment on above: Performed By: #### T RANSFR #### [facility] [address] [place] [address] Dr. Luis Alberto Olivia INR GUIDELINES SEE BELOW Normal [facility] Comment on above: Result Comment: KT RED INR: 2.0 - 3.0 CONDITIONS NOT LISTED BELOW 2.5 - 3.5 FOR PROSTHETIC HEART VALVE REPLACEMENT 2.5 - 3.5 RECURRENT THROMBOSIS Performed By: #### T RANSFR #### [facility] [address] [address] [address] Luis Alberto Olivia PT Coag (PPP) [Time] 10.7 s Normal 9.0-11.6 [facility] Comment on above: Performed By: #### T RANSFR #### [facility] [address] [place] [address] Dr. Luis Alberto Olivia PTTon 01-24-2022 aPTT Coag (Bld) [Time] 26.4 s Normal 22.3-36.2 [facility] Comment on above: Performed By: #### T RANSFR #### [facility] [address] [place] [address] Dr. Luis Alberto Olivia TROPONIN, HIGH SENSITIVITYon 01-24-2022 HSTROP 24.9 pg/mL Normal 4.0-76.1 [facility] Comment on above: Result Comment: CUT- OFF POINTS HAVE BEEN ESTABLISHED BASED ON THE FOURTH UNIVERSAL DEFINITIONS OF MYOCARDIAL INFARCTION. THE UPPER REFERENCE LIMIT (URL) OF TROPONIN, DEFINED THE 99TH PERCENTILE OF cTnI DISTRIBUTION IN A REFERENCE POPULATION, HAS BEEN CONFIRMED THE DECISION THRESHOLD FOR GA DIAGNOSIS. Performed By: #### U RCX #### [facility] [address] [place] [address] Dr. Luis Alberto Olivia XR CHEST 1 [...] by: SAM CHAN Date: 2022-01-24 12:01 Normal [facility] CHEMISTRYOrdered By: SYSTEM SYSTEM on 01-13-2022 Ferritin [Mass/Vol] 912 ng/mL High 24 - 336 ng/mL [facility] Remisol Iron [Mass/Vol] 81 ug/dL Normal 35 - 153 mcg/dL [facility] Rem[facility] Iron binding capacity [Mass/Vol] 383 ug/dL Normal 250 - 400 mcg/dL [facility] Rem[facility] Iron saturation [Mass fraction] 21 % Normal 20 - 50 % [facility] Remisol Transferrin [Mass/Vol] 274 mg/dL Normal 200 - 370 mg/dL [facility] Remisol CBC AUTO DIFFon 01-10-2022 BASO # 0.0 103/ul Normal 0.0-0.1 [facility] Comment on above: Performed By: #### L IVER #### [facility] [address] [address] [address] Luis Alberto Olivia Basophils/100 WBC (Bld) 0.6 % Normal 0.2-2.0 [facility] Comment on above: Performed By: #### L IVER #### [facility] [address] [address] [address] Luis Alberto Olivia EO # 0.1 103/ul Normal 0.0-0.7 [facility] Comment on above: Performed By: #### L IVER #### [facility] [address] [place] [address] Dr. Luis Alberto Olivia Eosinophils/100 WBC (Bld) 1.7 % Normal 0.9-7.0 [facility] Comment on above: Performed By: #### L IVER #### [facility] [address] [address] [address] Luis Alberto Olivia Erythrocyte distribution width (RBC) [Ratio] 17.1 % Critically high 11.0-15.0 [facility] Comment on above: Performed By: #### L IVER #### [facility] [address] [address] [address] Luis Alberto Olivia Hematocrit (Bld) [Volume fraction] 33.2 % Critically low 42.0-54.0 [facility] Comment on above: Performed By: #### L IVER #### [facility] [address] [address] [address] Luis Alberto Olivia Hemoglobin (Bld) [Mass/Vol] 10.0 g/dL Critically low 14.0-18.0 [facility] Comment on above: Performed By: #### L IVER #### [facility] [address] [address] [address] LuisA lberto Olivia IG # 0.03 10e3/ul Normal 0.00-0.03 [facility] Comment on above: Performed By: #### L IVER #### [facility] [address] [address] [address] Luis Alberto Olivia IG % 0.4 % Normal 0.0-0.5 [facility] Comment on above: Performed By: #### L IVER #### [facility] [address] [address] [address] Luis Alberto Olivia LYMPH # 0.8 103/ul Critically low 1.2-3.8 [facility] Comment on above: Performed By: #### L IVER #### [facility] [address] [address] [address] Luis Alberto Olivia Lymphocytes/100 WBC (Bld) 11.4 % Critically low 20.5-60.0 [facility] Comment on above: Performed By: #### L IVER #### [facility] [address] [address] [address] Luis Alberto Olivia MANUAL DIFF REQ NO Normal [facility] Comment on above: Performed By: #### L IVER #### [facility] [address] [address] [address] Luis Alberto Olivia MCH (RBC) [Entitic mass] 29.9 pg Normal 25.9-34.0 [facility] Comment on above: Performed By: #### L IVER #### [facility] [address] [address] [address] Luis Alberto Olivia MCHC (RBC) [Mass/Vol] 30.1 g/dL Normal 29.9-35.2 [facility] Comment on above: Performed By: #### L IVER #### [facility] [address] [address] [address] Luis Alberto Olivia MCV (RBC) [Entitic vol] 99.4 fL Critically high 80.0-94.0 [facility] Comment on above: Performed By: #### L IVER #### [facility] [address] [address] [address] Luis Alberto Olivia MONO # 0.7 103/ul Normal 0.3-0.8 [facility] Comment on above: Performed By: #### L IVER #### [facility] [address] [address] [address] Luis Alberto Olivia Monocytes/100 WBC (Bld) 10.0 % Normal 1.7-12.0 [facility] Comment on above: Performed By: #### L IVER #### [facility] [address] [address] [address] Luis Alberto Olivia NEUT # 5.2 103/ul Normal 1.4-6.5 [facility] Comment on above: Performed By: #### L IVER #### [facility] [address] [address] [address] Luis Alberto Olivia Neutrophils/100 WBC (Bld) 75.9 % Critically high 43.0-75.0 [facility] Comment on above: Performed By: #### L IVER #### [facility] [address] [place] [address] Dr. Luis Alberto Olivia Platelet mean volume (Bld) [Entitic vol] 9.6 fL Normal 9.5-13.5 [facility] Comment on above: Performed By: #### L IVER #### [facility] [address] [address] [address] Luis Alberto Olivia PLT 286 103/ul Normal 150-450 [facility] Comment on above: Performed By: #### L IVER #### [facility] [address] [address] [address] Luis Alberto Olivia RBC 3.34 106/ul Critically low 4.70-6.10 [facility] Comment on above: Performed By: #### L IVER #### [facility] [address] [address] [address] Luis Alberto Olivia WBC 6.9 103/ul Normal 4.0-11.0 [facility] Comment on above: Performed By: #### L IVER #### [facility] [address] [place] [address] Dr[address] ABD/PELVIS WO [...] KB SMALL[place]OD Date: 2022-01-10 17:45 Normal [facility] CULTURE URINEon 01-10-2022 CULTURE URINE Culture Observations : NO GROWTH. Normal [facility] Comment on above: Performed By: #### U RCX #### [facility] [address] [place] [address] Dr. Luis Alberto Olivia ER URINE PROFILEon 2 Bilirubin Ql (U) Negative Normal NEGATIVE [facility] Comment on above: Performed By: #### B LDCX2 #### [facility] [address] [place] [address] Dr. Luis Alberto Olivia Clarity (U) CLEAR Normal CLEAR [facility] Comment on above: Performed By: #### B LDCX2 #### [facility] [address] [place] [address] Dr. Luis Alberto Olivia Color (U) LT. YELLOW Normal YELLOW [facility] Comment on above: Performed By: #### B LDCX2 #### [facility] [address] [place] [address] Dr. Luis Alberto [place] A micrscopic examination will be performed if indicated. Normal [facility] Comment on above: Performed By: #### B LDCX2 #### [facility] [address] [place] [address] Dr. Luis Alberto Olivia Glucose Ql (U) Negative Normal NEGATIVE [facility] Comment on above: Performed By: #### B LDCX2 #### [facility] [address] [place] [address] Dr. Luis Alberto Olivia Hemoglobin Ql (U) Negative Normal NEGATIVE [facility] Comment on above: Performed By: #### B LDCX2 #### [facility] [address] [place] [address] Dr. Luis Alberto Olivia Ketones Ql (U) Negative Normal NEGATIVE [facility] Comment on above: Performed By: #### B LDCX2 #### [facility] [address] [place] [address] Dr. Luis Alberto Olivia LEUKOCYTES SMALL Abnormal NEGATIVE [facility] Comment on above: Performed By: #### B LDCX2 #### [facility] [address] [place] [address] Dr. Luis Alberto Olivia Nitrite Ql (U) Negative Normal NEGATIVE [facility] Comment on above: Performed By: #### B LDCX2 #### [facility] [address] [place] [address] Dr. Luis Alberto Olivia pH (U) 6.0 [pH] Normal 5-9 [facility] Comment on above: Performed By: #### B LDCX2 #### [facility] [address] [place] [address] Dr. Luis Alberto Olivia SPEC GRAVITY 1.015 Normal 1.005-<=1.02 5 [facility] Comment on above: Performed By: #### B LDCX2 #### [facility] [address] [place] [address] Dr. Luis Alberto Olivia UA PROTEIN Negative Normal NEGATIVE/ TRACE [facility] Comment on above: Performed By: #### B LDCX2 #### [facility] [address] [place] [address] Dr. Luis Alberto Olivia UR MICRO IND INDICATED Normal [facility] Comment on above: Performed By: #### B LDCX2 #### [facility] [address] [place] [address] Dr. Luis Alberto Olivia Urobilinogen Qn (U) 0.2 {Srini'U}/dL Normal 0.2 - 1. 0 [facility] Comment on above: Performed By: #### B LDCX2 #### [facility] [address] [place] [address] Dr. Luis Alberto Olivia PROF CHEM 8 (BAS METB)on Anion gap [Moles/Vol] 12.1 mmol/L Normal [facility] Comment on above: Performed By: #### B LDCX2 #### [facility] [address] [place] [address] Dr. Luis Alberto Olivia Calcium [Mass/Vol] 9.0 mg/dL Normal 8.5-10.1 [facility] Comment on above: Performed By: #### B LDCX2 #### [facility] [address] [place] [address] Dr. Luis Alberto Olivia Chloride [Moles/Vol] 103 mmol/L Normal 98-107 [facility] Comment on above: Performed By: #### B LDCX2 #### [facility] [address] [place] [address] Dr. Luis Alberto Olivia CO2 [Moles/Vol] 27.9 mmol/L Normal 21.0-32.0 [facility] Comment on above: Performed By: #### B LDCX2 #### [facility] [address] [address] [address] Luis lAberto Olivia Creatinine [Mass/Vol] 1.28 mg/dL Normal 0.70-1.30 [facility] Comment on above: Performed By: #### B LDCX2 #### [facility] [address] [address] [address] Luis Alberto Olivia EGFR-AF KAZAKH >60 Normal >=60 [facility] Comment on above: Performed By: #### B LDCX2 #### [facility] [address] [address] [address] Luis Alberto Olivia EGFR-NON AF KAZAKH 55 mL/min/1.73m2 Critically low >=60 [facility] Comment on above: Performed By: #### B LDCX2 #### [facility] [address] [place] [address] Dr. Luis Alberto Olivia Glucose [Mass/Vol] 96 mg/dL Normal 74-106 [facility] Comment on above: Performed By: #### B LDCX2 #### [facility] [address] [address] [address] Luis Alberto Olivia Potassium [Moles/Vol] 4.0 mmol/L Normal 3.5-5.1 [facility] Comment on above: Performed By: #### B LDCX2 #### [facility] [address] [address] [address] Luis Alberto Olivia Sodium [Moles/Vol] 139 mmol/L Normal 136-145 [facility] Comment on above: Performed By: #### B LDCX2 #### [facility] [address] [address] [address] Luis Alberto Olivia Urea nitrogen [Mass/Vol] 13.0 mg/dL Normal 7.0-18.0 [facility] Comment on above: Performed By: #### B LDCX2 #### [facility] [address] [address] [address] Luis Alberto Olivia Urea nitrogen/Creatinine [Mass ratio] 10.2 mg/mg Normal [facility] Comment on above: Performed By: #### B LDCX2 #### [facility] [address] [place] [address] Dr. Luis Alberto Olivia URINE MICROSCOPIC ONLYon BACTERIA NONE SEEN Normal NONE SEEN [facility] Comment on above: Performed By: #### B LDCX2 #### [facility] [address] [place] [address] Dr. Luis Alberto Olivia Bacteria identified Cx Nom (U) INDICATED Normal [facility] Comment on above: Performed By: #### B LDCX2 #### [facility] [address] [place] [address] Dr. Luis Alberto Olivia CAST NONE SEEN Normal NONE SEEN [facility] Comment on above: Performed By: #### B LDCX2 #### [facility] [address] [place] [address] Dr. Luis Alberto Olivia Crystals LM Nom (Urine sed) NONE SEEN Normal NONE SEEN [facility] Comment on above: Performed By: #### B LDCX2 #### [facility] [address] [place] [address] Dr. Luis Alberto Olivia Epithelial cells LM Ql (Urine sed) MODERATE Abnormal NONE SEEN /RARE [facility] Comment on above: Performed By: #### B LDCX2 #### [facility] [address] [place] [address] Dr. Luis Alberto Olivia MUCOUS NONE SEEN Normal NONE SEEN [facility] Comment on above: Performed By: #### B LDCX2 #### [facility] [address] [place] [address] Dr. Luis Alberto Olivia RBC 0-2 Normal 0-2 [facility] Comment on above: Performed By: #### B LDCX2 #### [facility] [address] [place] [address] Dr. Luis Alberto Olivia WBC 10-20 Abnormal NONE SEEN [facility] Comment on above: Performed By: #### B LDCX2 #### [facility] [address] [place] [address] Dr. Luis Alberto Olivia CHEMISTRYOrdered By: SYSTEM SYSTEM on 01-01-2022 Anion gap [Moles/Vol] 13 mmol/L Normal 6 - 16 mEq/L [facility] Calcium [Mass/Vol] 9.5 mg/dL Normal 8.9 - 11. 1 mg/dL [facility] Chloride [Moles/Vol] 104 mmol/L Normal 101 - 1 11 mmol/L [facility] CO2 [Moles/Vol] 25 mmol/L Normal 21 - 31 mmol/L [facility] Creatinine [Mass/Vol] 1.1 mg/dL Normal 0.5 - 1.3 mg/dL [facility] Remisol GFR/1.73 sq M.predicted among blacks MDRD (S/P/Bld) [Vol rate/Area] mL/min/1.73 m2 Normal >=59mL/min/1 .73 m2 [facility] Chem S GFR/1.73 sq M.predicted among non-blacks MDRD (S/P/Bld) [Vol rate/Area] mL/min/1.73 m2 Normal >=59mL/min/1 .73 m2 [facility] S Glucose [Mass/Vol] 124 mg/dL Normal 55 - 199 mg/dL [facility] Remisol Potassium [Moles/Vol] 3.6 mmol/L Normal 3.5 - 5.3 mmol/L [facility] Sodium [Moles/Vol] 138 mmol/L Normal 135 - 145 mmol/L [facility] Urea nitrogen [Mass/Vol] 10 mg/dL Normal 5 - 21 mg/dL [facility] Urea nitrogen/Creatinine [Mass ratio] 9 mg/mg Low 10 - 20 [facility] HEMATOLOGYOrdered By: Adilene Carrera on 01-01-2022 Erythrocyte distribution width (RBC) [Ratio] 16.5 % High 10.9 - 14.2 % [facility] HemeAutoSS Hematocrit (Bld) [Volume fraction] 29.1 % Low 37.7 - 49.0 % [facility]eAuto[facility] Hemoglobin (Bld) [Mass/Vol] 9.8 g/dL Low 13.5 - 17.5 gm/dL [facility] MCH (RBC) [Entitic mass] 30.9 pg Normal 27.0 - 34.0 pg [facility]eAuto[facility] MCHC (RBC) [Mass/Vol] 33.5 g/dL Normal 31.4 - 36.0 gm/dL [facility]eAuto[facility] MCV (RBC) [Entitic vol] 92.1 fL Normal 80.0 - 100.0 f[place] [facility] [place] [facility] Platelet mean volume (Bld) [Entitic vol] 6.7 fL Normal 6.4 - 10.8 fL FT HemeAutoSS Platelets (Bld) [#/Vol] 441.0 E9/L Normal 150.0 - 500.0 E9/L FT HemeAutoSS RBC (Bld) [#/Vol] 3.2 E12/L Low 4.3 - 5.9 E12/L [facility] [place] [facility] WBC corrected for nucl RBC Auto (Bld) [#/Vol] 4.5 E9/L Normal 4.0 - 11.0 E9/L [facility] [place] [facility] CULTURE URINEon 12-25-2021 CULTURE URINE Isolate [...] F Trimethoprim/Sulfamet hoxazole <=20 S F Normal [facility] Comment on above: Performed By: #### R ETYPE #### [facility] [address] [place] [address] Dr. Luis Alberto Olivia PRBC LEUKOREDUCEDon 12-25-19 ABO and Rh group Nom (Bld) Cross Match Result Compatible Unit Blood Type O Pos Unit Number [id number] Status Information Transfused Product ID Red Blood Cells Product Code [id number] Cross Match Result Compatible Unit Blood Type O Pos Unit Number [id number] Status Information Transfused Product ID Red Blood Cells Product Code [id number] Normal [facility] Comment on above: Performed By: #### R ETYPE #### [facility] [address] [place] [address] Dr. Luis Alberto Olivia CBC AUTO DIFFon 12-23-2021 BASO # 0.0 103/ul Normal 0.0-0.1 [facility] Comment on above: Performed By: #### U RCX #### [facility] [address] [place] [address] Dr. Luis Alberto Olivia Basophils/100 WBC (Bld) 0.3 % Normal 0.2-2.0 [facility] Comment on above: Performed By: #### U RCX #### [facility] [address] [place] [address] Dr. Luis Alberto Olivia EO # 0.1 103/ul Normal 0.0-0.7 [facility] Comment on above: Performed By: #### U RCX #### [facility] [address] [place] [address] Dr. Luis Alberto Olivia Eosinophils/100 WBC (Bld) 0.8 % Critically low 0.9-7.0 [facility] Comment on above: Performed By: #### U RCX #### [facility] [address] [place] [address] Dr. Luis Alberto Olivia Erythrocyte distribution width (RBC) [Ratio] 18.3 % Critically high 11.0-15.0 [facility] Comment on above: Performed By: #### U RCX #### [facility] [address] [place] [address] Dr. Luis Alberto Olivia Hematocrit (Bld) [Volume fraction] 25.0 % Critically low 42.0-54.0 [facility] Comment on above: Performed By: #### U RCX #### [facility] [address] [place] [address] Dr. Luis Alberto Olivia Hemoglobin (Bld) [Mass/Vol] 7.7 g/dL Critically low 14.0-18.0 [facility] Comment on above: Performed By: #### U RCX #### [facility] [address] [place] [address] Dr. Luis Alberto Olivia IG # 0.03 10e3/ul Normal 0.00-0.03 [facility] Comment on above: Performed By: #### U RCX #### [facility] [address] [address] [address] Luis Alberto Olivia IG % 0.5 % Normal 0.0-0.5 [facility] Comment on above: Performed By: #### U RCX #### [facility] [address] [address] [address] Luis Alberto Olivia LYMPH # 0.6 103/ul Critically low 1.2-3.8 [facility] Comment on above: Performed By: #### U RCX #### [facility] [address] [address] [address] Luis Alberto Olivia Lymphocytes/100 WBC (Bld) 9.9 % Critically low 20.5-60.0 [facility] Comment on above: Performed By: #### U RCX #### [facility] [address] [place] [address] Dr. Luis Alberto Olivia MANUAL DIFF REQ NO Normal [facility] Comment on above: Performed By: #### U RCX #### [facility] [address] [address] [address] Luis Alberto Olivia MCH (RBC) [Entitic mass] 30.9 pg Normal 25.9-34.0 [facility] Comment on above: Performed By: #### U RCX #### [facility] [address] [place] [address] Dr. Luis Alberto Olivia MCHC (RBC) [Mass/Vol] 30.8 g/dL Normal 29.9-35.2 [facility] Comment on above: Performed By: #### U RCX #### [facility] [address] [place] [address] Dr. Luis Alberto Olivia MCV (RBC) [Entitic vol] 100.4 fL Critically high 80.0-94.0 [facility] Comment on above: Performed By: #### U RCX #### [facility] [address] [place] [address] Dr. Luis Alberto Olivia MONO # 0.6 103/ul Normal 0.3-0.8 [facility] Comment on above: Performed By: #### U RCX #### [facility] [address] [place] [address] Dr. Luis Alberto Olivia Monocytes/100 WBC (Bld) 9.4 % Normal 1.7-12.0 [facility] Comment on above: Performed By: #### U RCX #### [facility] [address] [address] [address] Luis Alberto Olivia NEUT # 4.9 103/ul Normal 1.4-6.5 [facility] Comment on above: Performed By: #### U RCX #### [facility] [address] [place] [address] Dr. Luis Alberto Olivia Neutrophils/100 WBC (Bld) 79.1 % Critically high 43.0-75.0 [facility] Comment on above: Performed By: #### U RCX #### [facility] [address] [place] [address] Dr. Luis Alberto Olivia Platelet mean volume (Bld) [Entitic vol] 10.2 fL Normal 9.5-13.5 [facility] Comment on above: Performed By: #### U RCX #### [facility] [address] [place] [address] Dr. Luis Alberto Olivia PLT 254 103/ul Normal 150-450 [facility] Comment on above: Performed By: #### U RCX #### [facility] [address] [place] [address] Dr. Luis Alberto Olivia RBC 2.49 106/ul Critically low 4.70-6.10 [facility] Comment on above: Performed By: #### U RCX #### [facility] [address] [place] [address] Dr. Luis Alberto Olivia WBC 6.2 103/ul Normal 4.0-11.0 [facility] Comment on above: Performed By: #### U RCX #### [facility] [address] [place] [address] Dr. Luis Alberto Olivia PROF 14(COMP METB)on 022 Albumin [Mass/Vol] 2.7 g/dL Critically low 3.4-5.0 [facility] Comment on above: Performed By: #### U RCX #### [facility] [address] [place] [address] Dr. Luis Alberto Olivia Albumin/Globulin [Mass ratio] 0.8 {ratio} Normal [facility] Comment on above: Performed By: #### U RCX #### [facility] [address] [place] [address] Dr. Luis Alberto Olivia ALP [Catalytic activity/Vol] 42 U/L Critically low 46-116 [facility] Comment on above: Performed By: #### U RCX #### [facility] [address] [place] [address] Dr. Luis Alberto Olivia ALT [Catalytic activity/Vol] 26 U/L Normal 16-63 [facility] Comment on above: Performed By: #### U RCX #### [facility] [address] [place] [address] Dr. Luis Alberto Olivia Anion gap [Moles/Vol] 14.2 mmol/L Normal [facility] Comment on above: Performed By: #### U RCX #### [facility] [address] [place] [address] Dr. Luis Alberto Olivia AST [Catalytic activity/Vol] 26 U/L Normal 15-37 [facility] Comment on above: Performed By: #### U RCX #### [facility] [address] [place] [address] Dr. Luis Alberto Olivia Bilirubin [Mass/Vol] 0.8 mg/dL Normal 0.2-1.0 [facility] Comment on above: Performed By: #### U RCX #### [facility] [address] [place] [address] Dr. Luis Alberto Olivia Calcium [Mass/Vol] 8.3 mg/dL Critically low 8.5-10.1 [facility] Comment on above: Performed By: #### U RCX #### [facility] [address] [place] [address] Dr. Luis Alberto Olivia Chloride [Moles/Vol] 100 mmol/L Normal 98-107 [facility] Comment on above: Performed By: #### U RCX #### [facility] [address] [place] [address] Dr. Luis Alberto Olivia CO2 [Moles/Vol] 22.5 mmol/L Normal 21.0-32.0 [facility] Comment on above: Performed By: #### U RCX #### [facility] [address] [place] [address] Dr. Luis Alberto Olivia Creatinine [Mass/Vol] 1.05 mg/dL Normal 0.70-1.30 [facility] Comment on above: Performed By: #### U RCX #### [facility] [address] [place] [address] Dr. Luis Alberto Olivia EGFR-AF KAZAKH >60 Normal >=60 [facility] Comment on above: Performed By: #### U RCX #### [facility] [address] [place] [address] Dr. Luis Alberto Olivia EGFR-NON AF KAZAKH >60 Normal >=60 [facility] Comment on above: Performed By: #### U RCX #### [facility] [address] [place] [address] Dr. Luis Alberto Olivia Globulin (S) [Mass/Vol] 3.5 g/dL Normal [facility] Comment on above: Performed By: #### U RCX #### [facility] [address] [place] [address] Dr. Luis Alberto Olivia Glucose [Mass/Vol] 108 mg/dL Critically high 74-106 [facility] Comment on above: Performed By: #### U RCX #### [facility] [address] [place] [address] Dr. Luis Alberto Olivia Potassium [Moles/Vol] 3.7 mmol/L Normal 3.5-5.1 [facility] Comment on above: Performed By: #### U RCX #### [facility] [address] [place] [address] Dr. Luis Alberto Olivia Protein [Mass/Vol] 6.2 g/dL Critically low 6.4-8.2 [facility] Comment on above: Performed By: #### U RCX #### [facility] [address] [place] [address] Dr. Luis Alberto Olivia Sodium [Moles/Vol] 133 mmol/L Critically low 136-145 [facility] Comment on above: Performed By: #### U RCX #### [facility] [address] [place] [address] Dr. Luis Alberto Olivia Urea nitrogen [Mass/Vol] 13.0 mg/dL Normal 7.0-18.0 [facility] Comment on above: Performed By: #### U RCX #### [facility] [address] [place] [address] Dr. Luis Alberto Olivia Urea nitrogen/Creatinine [Mass ratio] 12.4 mg/mg Normal [facility] Comment on above: Performed By: #### U RCX #### [facility] [address] [place] [address] Dr. Luis Alberto Olivia CBC AUTO DIFFon 12-22-2021 BASO # 0.0 103/ul Normal 0.0-0.1 [facility] Comment on above: Performed By: #### L IVER #### [facility] [address] [place] [address] Dr. Luis Alberto Olivia Basophils/100 WBC (Bld) 0.4 % Normal 0.2-2.0 [facility] Comment on above: Performed By: #### L IVER #### [facility] [address] [place] [address] Dr. Luis Alberto Olivia EO # 0.0 103/ul Normal 0.0-0.7 [facility] Comment on above: Performed By: #### L IVER #### [facility] [address] [place] [address] Dr. Luis Alberto Olivia Eosinophils/100 WBC (Bld) 0.2 % Critically low 0.9-7.0 [facility] Comment on above: Performed By: #### L IVER #### [facility] [address] [place] [address] Dr. Luis Alberto Olivia Erythrocyte distribution width (RBC) [Ratio] 19.2 % Critically high 11.0-15.0 [facility] Comment on above: Performed By: #### L IVER #### [facility] [address] [place] [address] Dr. Luis Alberto Olivia Hematocrit (Bld) [Volume fraction] 27.1 % Critically low 42.0-54.0 [facility] Comment on above: Performed By: #### L IVER #### [facility] [address] [place] [address] Dr. Luis Alberto Olivia Hemoglobin (Bld) [Mass/Vol] 8.5 g/dL Critically low 14.0-18.0 [facility] Comment on above: Performed By: #### L IVER #### [facility] [address] [place] [address] Dr. Luis Alberto Olivia IG # 0.07 10e3/ul Critically high 0.00-0.03 [facility] Comment on above: Performed By: #### L IVER #### [facility] [address] [place] [address] Dr. Luis Alberto Olivia IG % 0.8 % Critically high 0.0-0.5 [facility] Comment on above: Performed By: #### L IVER #### [facility] [address] [place] [address] Dr. Luis Alberto Olivia LYMPH # 0.7 103/ul Critically low 1.2-3.8 [facility] Comment on above: Performed By: #### L IVER #### [facility] [address] [place] [address] Dr. Luis Alberto Olivia Lymphocytes/100 WBC (Bld) 7.9 % Critically low 20.5-60.0 [facility] Comment on above: Performed By: #### L IVER #### [facility] [address] [place] [address] Dr. Luis Alberto Olivia MANUAL DIFF REQ NO Normal [facility] Comment on above: Performed By: #### L IVER #### [facility] [address] [place] [address] Dr. Luis Alberto Olivia MCH (RBC) [Entitic mass] 31.6 pg Normal 25.9-34.0 [facility] Comment on above: Performed By: #### L IVER #### [facility] [address] [place] [address] Dr. Luis Alberto Olivia MCHC (RBC) [Mass/Vol] 31.4 g/dL Normal 29.9-35.2 [facility] Comment on above: Performed By: #### L IVER #### [facility] [address] [address] [address] Luis Alberto Olivia MCV (RBC) [Entitic vol] 100.7 fL Critically high 80.0-94.0 [facility] Comment on above: Performed By: #### L IVER #### [facility] [address] [place] [address] Dr. Luis Alberto Olivia MONO # 0.7 103/ul Normal 0.3-0.8 [facility] Comment on above: Performed By: #### L IVER #### [facility] [address] [place] [address] Dr. Luis Alberto Olivia Monocytes/100 WBC (Bld) 7.8 % Normal 1.7-12.0 [facility] Comment on above: Performed By: #### L IVER #### [facility] [address] [place] [address] Dr. Luis Alberto Olivia NEUT # 7.5 103/ul Critically high 1.4-6.5 [facility] Comment on above: Performed By: #### L IVER #### [facility] [address] [place] [address] Dr. Luis Alberto Olivia Neutrophils/100 WBC (Bld) 82.9 % Critically high 43.0-75.0 [facility] Comment on above: Performed By: #### L IVER #### [facility] [address] [place] [address] Dr. Luis Alberto Olivia Platelet mean volume (Bld) [Entitic vol] 9.4 fL Critically low 9.5-13.5 [facility] Comment on above: Performed By: #### L IVER #### [facility] [address] [place] [address] Dr. Luis Alberto Olivia PLT 232 103/ul Normal 150-450 [facility] Comment on above: Performed By: #### L IVER #### [facility] [address] [address] [address] Luis Alberto Olivia RBC 2.69 106/ul Critically low 4.70-6.10 [facility] Comment on above: Performed By: #### L IVER #### [facility] [address] [place] [address] Dr. Luis Alberto Olivia WBC 9.0 103/ul Normal 4.0-11.0 [facility] Comment on above: Performed By: #### L IVER #### [facility] [address] [place] [address] Dr. Luis Alberto Olivia HEMOGLOBIN AND HEMATOCRITon 12-22-2021 Hematocrit (Bld) [Volume fraction] 24.2 % Critically low 42.0-54.0 [facility] Comment on above: Performed By: #### U RCX #### [facility] [address] [place] [address] Dr. Luis Alberto Olivia Hemoglobin (Bld) [Mass/Vol] 7.7 g/dL Critically low 14.0-18.0 [facility] Comment on above: Performed By: #### U RCX #### [facility] [address] [place] [address] Dr. Luis Alberto Olivia Hematocrit (Bld) [Volume fraction] 24.2 % Critically low 42.0-54.0 [facility] Comment on above: Performed By: #### T RANSFR #### [facility] [address] [place] [address] Dr. Luis Alberto Olivia Hemoglobin (Bld) [Mass/Vol] 7.7 g/dL Critically low 14.0-18.0 [facility] Comment on above: Performed By: #### T RANSFR #### [facility] [address] [place] [address] Dr. Luis Alberto Olivia PROF 14(COMP METB)on 022 Albumin [Mass/Vol] 2.8 g/dL Critically low 3.4-5.0 [facility] Comment on above: Performed By: #### L IVER #### [facility] [address] [place] [address] Dr. Luis Alberto Olivia Albumin/Globulin [Mass ratio] 0.8 {ratio} Normal [facility] Comment on above: Performed By: #### L IVER #### [facility] [address] [address] [address] Luis Alberto Olivia ALP [Catalytic activity/Vol] 43 U/L Critically low 46-116 [facility] Comment on above: Performed By: #### L IVER #### [facility] [address] [address] [address] Luis Alberto Olivia ALT [Catalytic activity/Vol] 20 U/L Normal 16-63 [facility] Comment on above: Performed By: #### L IVER #### [facility] [address] [address] [address] Luis Alberto Olivia Anion gap [Moles/Vol] 10.9 mmol/L Normal [facility] Comment on above: Performed By: #### L IVER #### [facility] [address] [address] [address] Luis Alberto Olivia AST [Catalytic activity/Vol] 23 U/L Normal 15-37 [facility] Comment on above: Performed By: #### L IVER #### [facility] [address] [address] [address] Luis Alberto Olivia Bilirubin [Mass/Vol] 0.7 mg/dL Normal 0.2-1.0 [facility] Comment on above: Performed By: #### L IVER #### [facility] [address] [address] [address] Luis Alberto Olivia Calcium [Mass/Vol] 8.0 mg/dL Critically low 8.5-10.1 [facility] Comment on above: Performed By: #### L IVER #### [facility] [address] [address] [address] Luis Alberto Olivia Chloride [Moles/Vol] 103 mmol/L Normal 98-107 [facility] Comment on above: Performed By: #### L IVER #### [facility] [address] [address] [address] Luis Alberto Olivia CO2 [Moles/Vol] 22.2 mmol/L Normal 21.0-32.0 [facility] Comment on above: Performed By: #### L IVER #### [facility] [address] [address] [address] Luis Alberto Olivia Creatinine [Mass/Vol] 1.08 mg/dL Normal 0.70-1.30 [facility] Comment on above: Performed By: #### L IVER #### [facility] [address] [address] [address] Luis Alberto Olivia EGFR-AF KAZAKH >60 Normal >=60 [facility] Comment on above: Performed By: #### L IVER #### [facility] [address] [address] [address] Luis Alberto Olivia EGFR-NON AF KAZAKH >60 Normal >=60 [facility] Comment on above: Performed By: #### L IVER #### [facility] [address] [place] [address] Dr. Luis Alberto Olivia Globulin (S) [Mass/Vol] 3.5 g/dL Normal [facility] Comment on above: Performed By: #### L IVER #### [facility] [address] [address] [address] Luis Alberto Olivia Glucose [Mass/Vol] 119 mg/dL Critically high 74-106 [facility] Comment on above: Performed By: #### L IVER #### [facility] [address] [place] [address] Dr. Luis Alberto Olivia Potassium [Moles/Vol] 4.1 mmol/L Normal 3.5-5.1 [facility] Comment on above: Performed By: #### L IVER #### [facility] [address] [address] [address] Luis Alberto Olivia Protein [Mass/Vol] 6.3 g/dL Critically low 6.4-8.2 [facility] Comment on above: Performed By: #### L IVER #### [facility] [address] [address] [address] Luis Alberto Olivia Sodium [Moles/Vol] 132 mmol/L Critically low 136-145 [facility] Comment on above: Performed By: #### L IVER #### [facility] [address] [place] [address] Dr. Luis Alberto Olivia Urea nitrogen [Mass/Vol] 17.0 mg/dL Normal 7.0-18.0 [facility] Comment on above: Performed By: #### L IVER #### [facility] [address] [place] [address] Dr. Luis Alberto Olivia Urea nitrogen/Creatinine [Mass ratio] 15.7 mg/mg Normal [facility] Comment on above: Performed By: #### L IVER #### [facility] [address] [place] [address] Dr. Luis Alberto Olivia TRANSFERRINon 12-22-2021 Transferrin [Mass/Vol] 327 mg/dL Normal 177-329 [facility] Comment on above: Performed By: #### T RANSFR #### [facility] [address] [place] [address] Dr. Luis Alberto Olivia CBC AUTO DIFFon 12-21-2021 BASO # 0.0 103/ul Normal 0.0-0.1 [facility] Comment on above: Performed By: #### B LDCX2 #### [facility] [address] [place] [address] Dr. Luis Alberto Olivia Basophils/100 WBC (Bld) 0.4 % Normal 0.2-2.0 [facility] Comment on above: Performed By: #### B LDCX2 #### [facility] [address] [place] [address] Dr. Luis Alberto Olivia EO # 0.1 103/ul Normal 0.0-0.7 [facility] Comment on above: Performed By: #### B LDCX2 #### [facility] [address] [place] [address] Dr. Luis Alberto Olivia Eosinophils/100 WBC (Bld) 1.2 % Normal 0.9-7.0 [facility] Comment on above: Performed By: #### B LDCX2 #### [facility] [address] [place] [address] Dr. Luis Alberto Olivia Erythrocyte distribution width (RBC) [Ratio] 19.1 % Critically high 11.0-15.0 [facility] Comment on above: Performed By: #### B LDCX2 #### [facility] [address] [place] [address] Dr. Luis Alberto Olivia Hematocrit (Bld) [Volume fraction] 26.9 % Critically low 42.0-54.0 [facility] Comment on above: Performed By: #### B LDCX2 #### [facility] [address] [place] [address] Dr. Luis Alberto Olivia Hemoglobin (Bld) [Mass/Vol] 8.4 g/dL Critically low 14.0-18.0 [facility] Comment on above: Result Comment: RECE IVING PRBCS Performed By: #### B LDCX2 #### [facility] [address] [place] [address] Dr. Luis Alberto Olivia IG # 0.06 10e3/ul Critically high 0.00-0.[address] [facility] Comment on above: Performed By: #### B LDCX2 #### [facility] [address] [place] [address] Dr. Luis Alberto Olivia IG % 0.7 % Critically high 0.0-0.5 [facility] Comment on above: Performed By: #### B LDCX2 #### [facility] [address] [place] [address] Dr. Luis Alberto Olivia LYMPH # 0.6 103/ul Critically low 1.2-3.8 [facility] Comment on above: Performed By: #### B LDCX2 #### [facility] [address] [place] [address] Dr. Luis Alberto Olivia Lymphocytes/100 WBC (Bld) 7.3 % Critically low 20.5-60.0 [facility] Comment on above: Performed By: #### B LDCX2 #### [facility] [address] [place] [address] Dr. Luis Alberto Olivia MANUAL DIFF REQ NO Normal [facility] Comment on above: Performed By: #### B LDCX2 #### [facility] [address] [place] [address] Dr. Luis Alberto Olivia MCH (RBC) [Entitic mass] 31.5 pg Normal 25.9-34.0 [facility] Comment on above: Performed By: #### B LDCX2 #### [facility] [address] [place] [address] Dr. Luis Alberto Olivia MCHC (RBC) [Mass/Vol] 31.2 g/dL Normal 29.9-35.2 [facility] Comment on above: Performed By: #### B LDCX2 #### [facility] [address] [place] [address] Dr. Luis Alberto Olivia MCV (RBC) [Entitic vol] 100.7 fL Critically high 80.0-94.0 [facility] Comment on above: Performed By: #### B LDCX2 #### [facility] [address] [place] [address] Dr. Luis Alberto Olivia MONO # 0.6 103/ul Normal 0.3-0.8 [facility] Comment on above: Performed By: #### B LDCX2 #### [facility] [address] [place] [address] Dr. Luis Alberto Olivia Monocytes/100 WBC (Bld) 7.0 % Normal 1.7-12.0 [facility] Comment on above: Performed By: #### B LDCX2 #### [facility] [address] [place] [address] Dr. Luis Alberto Olivia NEUT # 7.0 103/ul Critically high 1.4-6.5 [facility] Comment on above: Performed By: #### B LDCX2 #### [facility] [address] [place] [address] Dr. Luis Alberto Olivia Neutrophils/100 WBC (Bld) 83.4 % Critically high 43.0-75.0 [facility] Comment on above: Performed By: #### B LDCX2 #### [facility] [address] [place] [address] Dr. Luis Alberto Olivia Platelet mean volume (Bld) [Entitic vol] 9.4 fL Critically low 9.5-13.5 [facility] Comment on above: Performed By: #### B LDCX2 #### [facility] [address] [address] [address] Luis Alberto Olivia PLT 225 103/ul Normal 150-450 [facility] Comment on above: Performed By: #### B LDCX2 #### [facility] [address] [place] [address] Dr. Luis Alberto Olivia RBC 2.67 106/ul Critically low 4.70-6.10 [facility] Comment on above: Performed By: #### B LDCX2 #### [facility] [address] [place] [address] Dr. Luis Alberto Olivia WBC 8.4 103/ul Normal 4.0-11.0 [facility] Comment on above: Performed By: #### B LDCX2 #### [facility] [address] [place] [address] Dr. Luis Alberto Olivia BASO # 0.0 103/ul Normal 0.0-0.1 [facility] Comment on above: Performed By: #### C BC #### [facility] [address] [place] [address] Dr. Luis Alberto Olivia Basophils/100 WBC (Bld) 0.3 % Normal 0.2-2.0 [facility] Comment on above: Performed By: #### C BC #### [facility] [address] [place] [address] Dr. Luis Alberto Olivia EO # 0.1 103/ul Normal 0.0-0.7 [facility] Comment on above: Performed By: #### C BC #### [facility] [address] [place] [address] Dr. Luis Alberto Olivia Eosinophils/100 WBC (Bld) 1.8 % Normal 0.9-7.0 [facility] Comment on above: Performed By: #### C BC #### [facility] [address] [place] [address] Dr. Luis Alberto Olivia Erythrocyte distribution width (RBC) [Ratio] 19.0 % Critically high 11.0-15.0 [facility] Comment on above: Performed By: #### C BC #### [facility] [address] [address] [address] Luis Alberto Olivia Hematocrit (Bld) [Volume fraction] 18.5 % Critically low 42.0-54.0 [facility] Comment on above: Performed By: #### C BC #### [facility] [address] [place] [address] Dr. Luis Alberto Olivia Hemoglobin (Bld) [Mass/Vol] 5.8 g/dL Critically low 14.0-18.0 [facility] Comment on above: Performed By: #### C BC #### [facility] [address] [place] [address] Dr. Luis Alberto Olivia IG # 0.04 10e3/ul Critically high 0.00-0.[address] [facility] Comment on above: Performed By: #### C BC #### [facility] [address] [place] [address] Dr. Luis Alberto Olivia IG % 0.6 % Critically high 0.0-0.5 [facility] Comment on above: Performed By: #### C BC #### [facility] [address] [place] [address] Dr. Luis Alberto Olivia LYMPH # 0.8 103/ul Critically low 1.2-3.8 [facility] Comment on above: Performed By: #### C BC #### [facility] [address] [place] [address] Dr. Luis Alberto Olivia Lymphocytes/100 WBC (Bld) 13.4 % Critically low 20.5-60.0 [facility] Comment on above: Performed By: #### C BC #### [facility] [address] [place] [address] Dr. Luis Alberto Olivia MANUAL DIFF REQ NO Normal [facility] Comment on above: Performed By: #### C BC #### [facility] [address] [place] [address] Dr. Luis Alberto Olivia MCH (RBC) [Entitic mass] 31.7 pg Normal 25.9-34.0 [facility] Comment on above: Performed By: #### C BC #### [facility] [address] [place] [address] Dr. Luis Alberto Olivia MCHC (RBC) [Mass/Vol] 31.4 g/dL Normal 29.9-35.2 [facility] Comment on above: Performed By: #### C BC #### [facility] [address] [place] [address] Dr. Luis Alberto Olivia MCV (RBC) [Entitic vol] 101.1 fL Critically high 80.0-94.0 [facility] Comment on above: Performed By: #### C BC #### [facility] [address] [place] [address] Dr. Luis Alberto Olivia MONO # 0.6 103/ul Normal 0.3-0.8 [facility] Comment on above: Performed By: #### C BC #### [facility] [address] [place] [address] Dr. Luis Alberto Olivia Monocytes/100 WBC (Bld) 8.8 % Normal 1.7-12.0 [facility] Comment on above: Performed By: #### C BC #### [facility] [address] [place] [address] Dr. Luis Alberto Olivia NEUT # 4.7 103/ul Normal 1.4-6.5 [facility] Comment on above: Performed By: #### C BC #### [facility] [address] [place] [address] Dr. Luis Alberto Olivia Neutrophils/100 WBC (Bld) 75.1 % Critically high 43.0-75.0 [facility] Comment on above: Performed By: #### C BC #### [facility] [address] [place] [address] Dr. Luis Alberto Olivia Platelet mean volume (Bld) [Entitic vol] 9.5 fL Normal 9.5-13.5 [facility] Comment on above: Performed By: #### C BC #### [facility] [address] [place] [address] Dr. Luis Alberto Olivia PLT 203 103/ul Normal 150-450 [facility] Comment on above: Performed By: #### C BC #### [facility] [address] [place] [address] Dr. Luis Alberto Olivia RBC 1.83 106/ul Critically low 4.70-6.10 [facility] Comment on above: Performed By: #### C BC #### [facility] [address] [place] [address] Dr. Luis Alberto Olivia WBC 6.3 103/ul Normal 4.0-11.0 [facility] Comment on above: Performed By: #### C BC #### [facility] [address] [place] [address] Dr. Luis Alberto Olivia BASO # 0.0 103/ul Normal 0.0-0.1 [facility] Comment on above: Performed By: #### B LDCX2 #### [facility] [address] [place] [address] Dr. Luis Alberto Olivia Basophils/100 WBC (Bld) 0.3 % Normal 0.2-2.0 [facility] Comment on above: Performed By: #### B LDCX2 #### [facility] [address] [place] [address] Dr. Luis Alberto Olivia EO # 0.2 103/ul Normal 0.0-0.7 [facility] Comment on above: Performed By: #### B LDCX2 #### [facility] [address] [place] [address] Dr. Luis Alberto Olivia Eosinophils/100 WBC (Bld) 2.9 % Normal 0.9-7.0 [facility] Comment on above: Performed By: #### B LDCX2 #### [facility] [address] [place] [address] Dr. Luis Alberto Olivia Erythrocyte distribution width (RBC) [Ratio] 18.4 % Critically high 11.0-15.0 [facility] Comment on above: Performed By: #### B LDCX2 #### [facility] [address] [place] [address] Dr. Luis Alberto Olivia Hematocrit (Bld) [Volume fraction] 17.4 % Critically low 42.0-54.0 [facility] Comment on above: Performed By: #### B LDCX2 #### [facility] [address] [place] [address] Dr. Luis Alberto Olivia Hemoglobin (Bld) [Mass/Vol] 5.5 g/dL Critically low 14.0-18.0 [facility] Comment on above: Performed By: #### B LDCX2 #### [facility] [address] [place] [address] Dr. Luis Alberto Olivia IG # 0.05 10e3/ul Critically high 0.00-0.[address] [facility] Comment on above: Performed By: #### B LDCX2 #### [facility] [address] [place] [address] Dr. Luis Alberto Olivia IG % 0.8 % Critically high 0.0-0.5 [facility] Comment on above: Performed By: #### B LDCX2 #### [facility] [address] [place] [address] Dr. Luis Alberto Olivia LYMPH # 0.8 103/ul Critically low 1.2-3.8 [facility] Comment on above: Performed By: #### B LDCX2 #### [facility] [address] [place] [address] Dr. Luis Alberto Olivia Lymphocytes/100 WBC (Bld) 12.8 % Critically low 20.5-60.0 [facility] Comment on above: Performed By: #### B LDCX2 #### [facility] [address] [place] [address] Dr. Luis Alberto Olivia MANUAL DIFF REQ NO Normal [facility] Comment on above: Performed By: #### B LDCX2 #### [facility] [address] [place] [address] Dr. Luis Alberto Olivia MCH (RBC) [Entitic mass] 32.5 pg Normal 25.9-34.0 [facility] Comment on above: Performed By: #### B LDCX2 #### [facility] [address] [place] [address] Dr. Luis Alberto Olivia MCHC (RBC) [Mass/Vol] 31.6 g/dL Normal 29.9-35.2 [facility] Comment on above: Performed By: #### B LDCX2 #### [facility] [address] [address] [address] Luis Alberto Olivia MCV (RBC) [Entitic vol] 103.0 fL Critically high 80.0-94.0 [facility] Comment on above: Performed By: #### B LDCX2 #### [facility] [address] [address] [address] Luis Alberto Olivia MONO # 0.5 103/ul Normal 0.3-0.8 [facility] Comment on above: Performed By: #### B LDCX2 #### [facility] [address] [place] [address] Dr. Luis Alberto Olivia Monocytes/100 WBC (Bld) 7.6 % Normal 1.7-12.0 [facility] Comment on above: Performed By: #### B LDCX2 #### [facility] [address] [place] [address] Dr. Luis Alberto Olivia NEUT # 5.0 103/ul Normal 1.4-6.5 [facility] Comment on above: Performed By: #### B LDCX2 #### [facility] [address] [place] [address] Dr. Luis Alberto Olivia Neutrophils/100 WBC (Bld) 75.6 % Critically high 43.0-75.0 [facility] Comment on above: Performed By: #### B LDCX2 #### [facility] [address] [place] [address] Dr. Luis Alberto Olivia Platelet mean volume (Bld) [Entitic vol] 9.5 fL Normal 9.5-13.5 [facility] Comment on above: Performed By: #### B LDCX2 #### [facility] [address] [place] [address] Dr. Luis Alberto Olivia PLT 224 103/ul Normal 150-450 [facility] Comment on above: Performed By: #### B LDCX2 #### [facility] [address] [place] [address] Dr. Luis Alberto Olivia RBC 1.69 106/ul Critically low 4.70-6.10 [facility] Comment on above: Performed By: #### B LDCX2 #### [facility] [address] [place] [address] Dr. Luis Alberto Olivia WBC 6.6 103/ul Normal 4.0-11.0 [facility] Comment on above: Performed By: #### B LDCX2 #### [facility] [address] [place] [address] Dr. Luis Alberto Olivia ER URINE PROFILEon 2 Bilirubin Ql (U) Negative Normal NEGATIVE [facility] Comment on above: Performed By: #### L IVER #### [facility] [address] [place] [address] Dr. Luis Alberto Olivia Clarity (U) CLOUDY Abnormal CLEAR [facility] Comment on above: Performed By: #### L IVER #### [facility] [address] [place] [address] Dr. Luis Alberto Olivia Color (U) YELLOW Normal YELLOW [facility] Comment on above: Performed By: #### L IVER #### [facility] [address] [place] [address] Dr. Luis Alberto R[place] A micrscopic examination will be performed if indicated. Normal [facility] Comment on above: Performed By: #### L IVER #### [facility] [address] [place] [address] Dr. Luis Alberto Olivia Glucose Ql (U) Negative Normal NEGATIVE [facility] Comment on above: Performed By: #### L IVER #### [facility] [address] [place] [address] Dr. Luis Alberto Olivia Hemoglobin Ql (U) Negative Normal NEGATIVE [facility] Comment on above: Performed By: #### L IVER #### [facility] [address] [place] [address] Dr. Luis Alberto Olivia Ketones Ql (U) Negative Normal NEGATIVE [facility] Comment on above: Performed By: #### L IVER #### [facility] [address] [place] [address] Dr. Luis Alberto Olivia LEUKOCYTES LARGE Abnormal NEGATIVE [facility] Comment on above: Performed By: #### L IVER #### [facility] [address] [place], [place] [id number] Dr. Luis Alberto Olivia Nitrite Ql (U) Negative Normal NEGATIVE [facility] Comment on above: Performed By: #### L IVER #### [facility] [address] [place] [address] Dr. Luis Alberto Olivia pH (U) 6.0 [pH] Normal 5-9 [facility] Comment on above: Performed By: #### L IVER #### [facility] [address] [place] [address] Dr. Luis Alberto Olivia SPEC GRAVITY 1.010 Normal 1.005-<=1.02 5 [facility] Comment on above: Performed By: #### L IVER #### [facility] [address] [place] [address] Dr. Luis Alberto Olivia UA PROTEIN Negative Normal NEGATIVE/ TRACE [facility] Comment on above: Performed By: #### L IVER #### [facility] [address] [place] [address] Dr. Luis Alberto Olivia UR MICRO IND INDICATED Normal [facility] Comment on above: Performed By: #### L IVER #### [facility] [address] [place] [address] Dr. Luis Alberto Olivia Urobilinogen Qn (U) 0.2 {Srnii'U}/dL Normal 0.2 - 1. 0 [facility] Comment on above: Performed By: #### L IVER #### [facility] [address] [place] [address] Dr. Luis Alberto Olivia H PYLORI TISSUEon 12-21-2021 H PYL TISSUE, UREASE Negative Normal NEGATIVE [facility] Comment on above: Performed By: #### U RCX #### [facility] [address] [place] [address] Dr. Luis Alberto Olivia NM GI BLEEDon [...] No active gastrointestinal bleeding. Electronically authenticated by: KADEN FREITAS Date: 2021-12-21 08:50 Normal [facility] PRBC LEUKOREDUCEDon 12-22-19 ABO and Rh group Nom (Bld) Cross Match Result Compatible Unit Blood Type O Pos Unit Number [id number] Status Information Transfused Product ID Red Blood Cells Product Code [id number] Cross Match Result Compatible Unit Blood Type O Pos Unit Number [id number] Status Information Transfused Product ID Red Blood Cells Product Code [id number] Normal [facility] Comment on above: Performed By: #### P RBC #### [facility] [address] [place] [address] Dr. Luis Alberto Olivia PROF 14(COMP METB)on 022 Albumin [Mass/Vol] 2.6 g/dL Critically low 3.4-5.0 [facility] Comment on above: Performed By: #### B LDCX2 #### [facility] [address] [place] [address] Dr. Luis Alberto Olivia Albumin/Globulin [Mass ratio] 1.0 {ratio} Normal [facility] Comment on above: Performed By: #### B LDCX2 #### [facility] [address] [place] [address] Dr. Luis Alberto Olivia ALP [Catalytic activity/Vol] 37 U/L Critically low 46-116 [facility] Comment on above: Performed By: #### B LDCX2 #### [facility] [address] [place] [address] Dr. LuisA lberto Olivia ALT [Catalytic activity/Vol] 16 U/L Normal 16-63 [facility] Comment on above: Performed By: #### B LDCX2 #### [facility] [address] [place] [address] Dr. Luis Alberto Olivia Anion gap [Moles/Vol] 10.8 mmol/L Normal [facility] Comment on above: Performed By: #### B LDCX2 #### [facility] [address] [place] [address] Dr. Luis Alberto Olivia AST [Catalytic activity/Vol] 18 U/L Normal 15-37 [facility] Comment on above: Performed By: #### B LDCX2 #### [facility] [address] [place] [address] Dr. Luis Alberto Olivia Bilirubin [Mass/Vol] 0.5 mg/dL Normal 0.2-1.0 [facility] Comment on above: Performed By: #### B LDCX2 #### [facility] [address] [place] [address] Dr. Luis Alberto Olivia Calcium [Mass/Vol] 7.8 mg/dL Critically low 8.5-10.1 [facility] Comment on above: Performed By: #### B LDCX2 #### [facility] [address] [place] [address] Dr. Luis Alberto Olivia Chloride [Moles/Vol] 103 mmol/L Normal 98-107 [facility] Comment on above: Performed By: #### B LDCX2 #### [facility] [address] [place] [address] Dr. Luis Alberto Olivia CO2 [Moles/Vol] 25.6 mmol/L Normal 21.0-32.0 [facility] Comment on above: Performed By: #### B LDCX2 #### [facility] [address] [place] [address] Dr. Luis Alberto Olivia Creatinine [Mass/Vol] 1.33 mg/dL Critically high 0.70-1.30 [facility] Comment on above: Performed By: #### B LDCX2 #### [facility] [address] [place] [address] Dr. Luis Alberto Olivia EGFR-AF KAZAKH >60 Normal >=60 [facility] Comment on above: Performed By: #### B LDCX2 #### [facility] [address] [place] [address] Dr. Luis Alberto Olivia EGFR-NON AF KAZAKH 52 mL/min/1.73m2 Critically low >=60 [facility] Comment on above: Performed By: #### B LDCX2 #### [facility] [address] [place] [address] Dr. Luis Alberto Olivia Globulin (S) [Mass/Vol] 2.7 g/dL Normal [facility] Comment on above: Performed By: #### B LDCX2 #### [facility] [address] [place] [address] Dr. Luis Alberto Olivia Glucose [Mass/Vol] 109 mg/dL Critically high 74-106 [facility] Comment on above: Performed By: #### B LDCX2 #### [facility] [address] [place] [address] Dr. Luis Alberto Olivia Potassium [Moles/Vol] 3.4 mmol/L Critically low 3.5-5.1 [facility] Comment on above: Performed By: #### B LDCX2 #### [facility] [address] [place] [address] Dr. Luis Alberto Olivia Protein [Mass/Vol] 5.3 g/dL Critically low 6.4-8.2 [facility] Comment on above: Performed By: #### B LDCX2 #### [facility] [address] [place] [address] Dr. Luis Alberto Olivia Sodium [Moles/Vol] 136 mmol/L Normal 136-145 [facility] Comment on above: Performed By: #### B LDCX2 #### [facility] [address] [place] [address] Dr. Luis Alberto Olivia Urea nitrogen [Mass/Vol] 24.0 mg/dL Critically high 7.0-18.0 [facility] Comment on above: Performed By: #### B LDCX2 #### [facility] [address] [place] [address] Dr. Luis Alberto Olivia Urea nitrogen/Creatinine [Mass ratio] 18.0 mg/mg Normal [facility] Comment on above: Performed By: #### B LDCX2 #### [facility] [address] [place] [address] Dr. Luis Alberto Olivia Albumin [Mass/Vol] 2.7 g/dL Critically low 3.4-5.0 [facility] Comment on above: Performed By: #### U RCX #### [facility] [address] [place] [address] Dr. Luis Alberto Olivia Albumin/Globulin [Mass ratio] 1.0 {ratio} Normal [facility] Comment on above: Performed By: #### U RCX #### [facility] [address] [place] [address] Dr. Luis Alberto Olivia ALP [Catalytic activity/Vol] 40 U/L Critically low 46-116 [facility] Comment on above: Performed By: #### U RCX #### [facility] [address] [place] [address] Dr. Luis Alberto Olivia ALT [Catalytic activity/Vol] 18 U/L Normal 16-63 [facility] Comment on above: Performed By: #### U RCX #### [facility] [address] [place] [address] Dr. Luis Alberto Olivia Anion gap [Moles/Vol] 9.7 mmol/L Normal [facility] Comment on above: Performed By: #### U RCX #### [facility] [address] [place] [address] Dr. Luis Alberto Olivia AST [Catalytic activity/Vol] 21 U/L Normal 15-37 [facility] Comment on above: Performed By: #### U RCX #### [facility] [address] [place] [address] Dr. Luis Alberto Olivia Bilirubin [Mass/Vol] 0.3 mg/dL Normal 0.2-1.0 [facility] Comment on above: Performed By: #### U RCX #### [facility] [address] [place] [address] Dr. Luis Alberto Olivia Calcium [Mass/Vol] 7.7 mg/dL Critically low 8.5-10.1 [facility] Comment on above: Performed By: #### U RCX #### [facility] [address] [place] [address] Dr. Luis Alberto Olivia Chloride [Moles/Vol] 102 mmol/L Normal 98-107 [facility] Comment on above: Performed By: #### U RCX #### [facility] [address] [place] [address] Dr. Luis Alberto Olivia CO2 [Moles/Vol] 26.8 mmol/L Normal 21.0-32.0 [facility] Comment on above: Performed By: #### U RCX #### [facility] [address] [address] [address] Luis Alberto Olivia Creatinine [Mass/Vol] 1.35 mg/dL Critically high 0.70-1.30 [facility] Comment on above: Performed By: #### U RCX #### [facility] [address] [address] [address] Luis Alberto Olivia EGFR-AF KAZAKH >60 Normal >=60 [facility] Comment on above: Performed By: #### U RCX #### [facility] [address] [address] [address] Luis Alberto Olivia EGFR-NON AF KAZAKH 52 mL/min/1.73m2 Critically low >=60 [facility] Comment on above: Performed By: #### U RCX #### [facility] [address] [address] [address] Luis Alberto Olivia Globulin (S) [Mass/Vol] 2.7 g/dL Normal [facility] Health Comment on above: Performed By: #### U RCX #### [facility] [address] [address] [address] Luis Alberto Olivia Glucose [Mass/Vol] 106 mg/dL Normal 74-106 [facility] Comment on above: Performed By: #### U RCX #### [facility] [address] [address] [address] Luis Alberto Olivia Potassium [Moles/Vol] 3.5 mmol/L Normal 3.5-5.1 [facility] Comment on above: Performed By: #### U RCX #### [facility] [address] [address] [address] Luis Alberto Olivia Protein [Mass/Vol] 5.4 g/dL Critically low 6.4-8.2 [facility] Comment on above: Performed By: #### U RCX #### [facility] [address] [address] [address] Luis Alberto Olviia Sodium [Moles/Vol] 135 mmol/L Critically low 136-145 [facility] Comment on above: Performed By: #### U RCX #### [facility] [address] [place] [address] Dr. Luis Alberto Olivia Urea nitrogen [Mass/Vol] 26.0 mg/dL Critically high 7.0-18.0 [facility] Comment on above: Performed By: #### U RCX #### [facility] [address] [place] [address] Dr. Luis Alberto Olivia Urea nitrogen/Creatinine [Mass ratio] 19.3 mg/mg Normal [facility] Comment on above: Performed By: #### U RCX #### [facility] [address] [place] [address] Dr. Luis Alberto Olivia URINE MICROSCOPIC ONLYon BACTERIA SMALL Abnormal NONE SEEN [facility] Comment on above: Performed By: #### L IVER #### [facility] [address] [place] [address] Dr. Luis Alberto Olivia Bacteria identified Cx Nom (U) INDICATED Normal [facility] Comment on above: Performed By: #### L IVER #### [facility] [address] [place] [address] Dr. Luis Alberto Olivia CAST NONE SEEN Normal NONE SEEN [facility] Comment on above: Performed By: #### L IVER #### [facility] [address] [place] [address] Dr. Luis Alberto Olivia Crystals LM Nom (Urine sed) NONE SEEN Normal NONE SEEN [facility] Comment on above: Performed By: #### L IVER #### [facility] [address] [place] [address] Dr. Luis Alberto Olivia Epithelial cells LM Ql (Urine sed) RARE Normal NONE SEEN /RARE [facility] Comment on above: Performed By: #### L IVER #### [facility] [address] [place] [address] Dr. Luis Alberto Olivia MUCOUS NONE SEEN Normal NONE SEEN [facility] Comment on above: Performed By: #### L IVER #### [facility] [address] [place] [address] Dr. Luis Alberto Olivia RBC 0-2 Normal 0-2 [facility] Comment on above: Performed By: #### L IVER #### [facility] [address] [place] [address] Dr. Luis Alberto Olivia WBC 10-20 Abnormal NONE SEEN [facility] Comment on above: Performed By: #### L IVER #### [facility] [address] [place] [address] Dr. Luis Alberto Olivia ABO RH RETYPEon 12-20-2021 ABO and Rh group Nom (Bld) DONE Normal [facility] Comment on above: Performed By: #### R ETYPE #### [facility] [address] [place] [address] Dr. Luis Alberto Olivia BNPon 12-20-2021 Natriuretic peptide B (Bld) [Mass/Vol] 1641.0 pg/mL Normal <=1,800.0 [facility] Comment on above: Performed By: #### R ETYPE #### [facility] [address] [place] [address] Dr. Luis Alberto Olivia CARDIAC ANGELI ADMITon 022 CK [Catalytic activity/Vol] 66 U/L Normal 39-308 [facility] Comment on above: Performed By: #### R ETYPE #### [facility] [address] [place] [address] Dr. Luis Alberto Olivia CK.MB [Mass/Vol] 1.06 ng/mL Normal <=3.60 [facility] Comment on above: Performed By: #### R ETYPE #### [facility] [address] [place] [address] Dr. Luis Alberto Olivia HSTROP 17.6 pg/mL Normal 4.0-76.1 [facility] Comment on above: Result Comment: CUT- OFF POINTS HAVE BEEN ESTABLISHED BASED ON THE FOURTH UNIVERSAL DEFINITIONS OF MYOCARDIAL INFARCTION. THE UPPER REFERENCE LIMIT (URL) OF TROPONIN, DEFINED THE 99TH PERCENTILE OF cTnI DISTRIBUTION IN A REFERENCE POPULATION, HAS BEEN CONFIRMED THE DECISION THRESHOLD FOR GA DIAGNOSIS. Performed By: #### R ETYPE #### [facility] [address] [place] [address] Dr. Luis Alberto Olivia YADIRA 91 ng/mL Normal 16-96 [facility] Comment on above: Performed By: #### R ETYPE #### [facility] [address] [place] [address] Dr. Luis Alberto Olivia CBC AUTO DIFFon 12-20-2021 BASO # 0.0 103/ul Normal 0.0-0.1 [facility] Comment on above: Performed By: #### L IVER #### [facility] [address] [place] [address] Dr. Luis Alberto Olivia Basophils/100 WBC (Bld) 0.3 % Normal 0.2-2.0 [facility] Comment on above: Performed By: #### L IVER #### [facility] [address] [place] [address] Dr. Luis Alberto Olivia EO # 0.1 103/ul Normal 0.0-0.7 [facility] Comment on above: Performed By: #### L IVER #### [facility] [address] [place] [address] Dr. Luis Alberto Olivia Eosinophils/100 WBC (Bld) 1.3 % Normal 0.9-7.0 [facility] Comment on above: Performed By: #### L IVER #### [facility] [address] [place] [address] Dr. Luis Alberto Olivia Erythrocyte distribution width (RBC) [Ratio] 18.7 % Critically high 11.0-15.0 [facility] Comment on above: Performed By: #### L IVER #### [facility] [address] [place] [address] Dr. Luis Alberto Olivia Hematocrit (Bld) [Volume fraction] 17.5 % Critically low 42.0-54.0 [facility] Comment on above: Performed By: #### L IVER #### [facility] [address] [place] [address] Dr. Luis Alberto Olivia Hemoglobin (Bld) [Mass/Vol] 5.3 g/dL Critically low 14.0-18.0 [facility] Comment on above: Performed By: #### L IVER #### [facility] [address] [address] [address] Luis Alberto Olivia IG # 0.06 10e3/ul Critically high 0.00-0.[address] [facility] Comment on above: Performed By: #### L IVER #### [facility] [address] [address] [address] Luis Alberto Olivia IG % 0.9 % Critically high 0.0-0.5 [facility] Comment on above: Performed By: #### L IVER #### [facility] [address] [address] [address] Luis Alberto Olivia LYMPH # 0.7 103/ul Critically low 1.2-3.8 [facility] Comment on above: Performed By: #### L IVER #### [facility] [address] [place] [address] Dr. Luis Alberto Olivia Lymphocytes/100 WBC (Bld) 10.1 % Critically low 20.5-60.0 [facility] Comment on above: Performed By: #### L IVER #### [facility] [address] [place] [address] Dr. Luis Alberto Olivia MANUAL DIFF REQ NO Normal [facility] Comment on above: Performed By: #### L IVER #### [facility] [address] [place] [address] Dr. Luis Alberto Olivia MCH (RBC) [Entitic mass] 31.5 pg Normal 25.9-34.0 [facility] Comment on above: Performed By: #### L IVER #### [facility] [address] [address] [address] Luis Alberto Olivia MCHC (RBC) [Mass/Vol] 30.3 g/dL Normal 29.9-35.2 [facility] Comment on above: Performed By: #### L IVER #### [facility] [address] [place] [address] Dr. Luis Alberto Olivia MCV (RBC) [Entitic vol] 104.2 fL Critically high 80.0-94.0 [facility] Comment on above: Performed By: #### L IVER #### [facility] [address] [address] [address] Luis Alberto Olivia MONO # 0.7 103/ul Normal 0.3-0.8 [facility] Comment on above: Performed By: #### L IVER #### [facility] [address] [address] [address] Luis Alberto Olivia Monocytes/100 WBC (Bld) 9.4 % Normal 1.7-12.0 [facility] Comment on above: Performed By: #### L IVER #### [facility] [address] [place] [address] Dr. Luis Alberto Olivia NEUT # 5.5 103/ul Normal 1.4-6.5 [facility] Comment on above: Performed By: #### L IVER #### [facility] [address] [place] [address] Dr. Luis Alberto Olivia Neutrophils/100 WBC (Bld) 78.0 % Critically high 43.0-75.0 [facility] Comment on above: Performed By: #### L IVER #### [facility] [address] [place] [address] Dr. Luis Alberto Olivia Platelet mean volume (Bld) [Entitic vol] 9.5 fL Normal 9.5-13.5 [facility] Comment on above: Performed By: #### L IVER #### [facility] [address] [place] [address] Dr. Luis Alberto Olivia PLT 245 103/ul Normal 150-450 [facility] Comment on above: Performed By: #### L IVER #### [facility] [address] [place] [address] Dr. Luis Alberto Olivia RBC 1.68 106/ul Critically low 4.70-6.10 [facility] Comment on above: Performed By: #### L IVER #### [facility] [address] [place] [address] Dr. Luis Alberto Olivia WBC 7.0 103/ul Normal 4.0-11.0 [facility] Comment on above: Performed By: #### L IVER #### [facility] [address] [place] [address] Dr. Luis Alberto Olivia CULTURE BLOODon 12-20-2021 Microscopic examination of blood, culture Culture Observations: NO GROWTH AT 5 DAYS. Normal [facility] Comment on above: Performed By: #### B [id number] #### [facility] [address] [place] [address] Dr. Luis Alberto Olivia Microscopic examination of blood, culture Culture Observations: NO GROWTH AT 5 DAYS. Normal [facility] Comment on above: Performed By: #### B LDCX1 #### [facility] [address] [place] [address] Dr. Luis Alberto Olivia Covid-19 PCR ([facility])on 12-01 SARS-CoV-2 (COVID-19) RNA BOAZ+probe Ql (Unsp spec) Not detected Normal NOT DETECTED [facility] Comment on above: Result Comment: When diagnostic [...] for this test is supported by the [employer] of [employer] and Human Service's declaration that [...] used). Performed By: #### R ETYPE #### [facility] [address] [place] [address] Dr. Luis Alberto Olivia FERRITINon 12-20-2021 Ferritin [Mass/Vol] 46.0 ng/mL Normal 26.0-388.0 [facility] Comment on above: Performed By: #### R ETYPE #### [facility] [address] [place] [address] Dr. Luis Alberto Olivia IRONon 12-20-2021 Iron [Mass/Vol] 88.0 ug/dL Normal 65.0-175.0 [facility] Comment on above: Performed By: #### T RANSFR #### [facility] [address] [address] [address] Luis Alberto Olivia IRON AND TIBCon 12-20-2021 % SATURATION 22.4 % Normal [facility] Comment on above: Performed By: #### T RANSFR #### [facility] [address] [address] [address] Luis Alberto Olivia TIBC DIRECT 393.0 ug/dL Normal 250.0-450.0 [facility] Comment on above: Performed By: #### T RANSFR #### [facility] [address] [place] [address] Dr. Luis Alberto Olivia LACTATE/LACTIC ACIDon 2021 Lactate [Moles/Vol] 0.9 mmol/L Normal 0.4-1.9 [facility] Comment on above: Performed By: #### T RANSFR #### [facility] [address] [address] [address] Luis Alberto Olivia Lactate [Moles/Vol] 2.0 mmol/L Critically high 0.4-1.9 [facility] Comment on above: Performed By: #### B [id number] #### [facility] [address] [place] [address] Dr. Luis Alberto Olivia LIVER PROFILEon 12-20-2021 Albumin [Mass/Vol] 2.7 g/dL Critically low 3.4-5.0 [facility] Comment on above: Performed By: #### L IVER #### [facility] [address] [address] [address] Luis Alberto Olivia Albumin/Globulin [Mass ratio] 0.9 {ratio} Normal [facility] Comment on above: Performed By: #### L IVER #### [facility] [address] [place] [address] Dr. Luis Alberto Olivia ALP [Catalytic activity/Vol] 42 U/L Critically low 46-116 [facility] Comment on above: Performed By: #### L IVER #### [facility] [address] [address] [address] Luis Alberto Olivia ALT [Catalytic activity/Vol] 19 U/L Normal 16-63 [facility] Comment on above: Performed By: #### L IVER #### [facility] [address] [address] [address] Luis Alberto Olivia AST [Catalytic activity/Vol] 26 U/L Normal 15-37 [facility] Comment on above: Performed By: #### L IVER #### [facility] [address] [address] [address] Luis Alberto Olivia BILI, CONJUGATED 0.1 mg/dL Normal 0.0-0.2 [facility] Comment on above: Performed By: #### L IVER #### [facility] [address] [place] [address] Dr. Luis Alberto Olivia Bilirubin [Mass/Vol] 0.4 mg/dL Normal 0.2-1.0 [facility] Comment on above: Performed By: #### L IVER #### [facility] [address] [address] [address] Luis Alberto Olivia Globulin (S) [Mass/Vol] 3.1 g/dL Normal [facility] Comment on above: Performed By: #### L IVER #### [facility] [address] [address] [address] Luis Alberto Olivia Protein [Mass/Vol] 5.8 g/dL Critically low 6.4-8.2 [facility] Comment on above: Performed By: #### L IVER #### [facility] [address] [address] [address] Luis Alberto Olivia OCC BLD IMMUNO SCREENon 12-01 OCCULT BLOOD Positive Abnormal NEGATIVE [facility] Comment on above: Performed By: #### B [id number] #### [facility] [address] [address] [address] Luis Alberto Olivia PROF CHEM 8 (BAS METB)on Anion gap [Moles/Vol] 15.0 mmol/L Normal [facility] Comment on above: Performed By: #### R ETYPE #### [facility] [address] [address] [address] Luis Alberto Olivia Calcium [Mass/Vol] 8.1 mg/dL Critically low 8.5-10.1 [facility] Comment on above: Performed By: #### R ETYPE #### [facility] [address] [address] [address] Luis Alberto Olivia Chloride [Moles/Vol] 101 mmol/L Normal 98-107 [facility] Comment on above: Performed By: #### R ETYPE #### [facility] [address] [address] [address] Luis Alberto Olivia CO2 [Moles/Vol] 23.6 mmol/L Normal 21.0-32.0 [facility] Comment on above: Performed By: #### R ETYPE #### [facility] [address] [address] [address] Luis Alberto Olivia Creatinine [Mass/Vol] 1.38 mg/dL Critically high 0.70-1.30 [facility] Comment on above: Performed By: #### R ETYPE #### [facility] [address] [address] [address] Luis Alberto Olivia EGFR-AF KAZAKH >60 Normal >=60 [facility] Comment on above: Performed By: #### R ETYPE #### [facility] [address] [address] [address] Luis Alberto Olivia EGFR-NON AF KAZAKH 50 mL/min/1.73m2 Critically low >=60 [facility] Comment on above: Performed By: #### R ETYPE #### [facility] [address] [address] [address] Luis Alberto Olivia Glucose [Mass/Vol] 106 mg/dL Normal 74-106 [facility] Comment on above: Performed By: #### R ETYPE #### [facility] [address] [address] [address] Luis Alberto Olivia Potassium [Moles/Vol] 3.6 mmol/L Normal 3.5-5.1 [facility] Comment on above: Performed By: #### R ETYPE #### [facility] [address] [place] [address] Dr. Luis Alberto Olivia Sodium [Moles/Vol] 136 mmol/L Normal 136-145 [facility] Comment on above: Performed By: #### R ETYPE #### [facility] [address] [place] [address] Dr. Luis Alberto Olivia Urea nitrogen [Mass/Vol] 26.0 mg/dL Critically high 7.0-18.0 [facility] Comment on above: Performed By: #### R ETYPE #### [facility] [address] [place] [address] Dr. Luis Alberto Olivia Urea nitrogen/Creatinine [Mass ratio] 18.8 mg/mg Normal [facility] Comment on above: Performed By: #### R ETYPE #### [facility] [address] [place] [address] Dr. Luis Alberto Olivia PROTIMEon 12-20-2021 INR Coag (PPP) [Relative time] 1.08 {INR} Normal [facility] Comment on above: Performed By: #### U RCX #### [facility] [address] [place] [address] Dr. Luis Alberto Olivia INR GUIDELINES SEE BELOW Normal [facility] Comment on above: Result Comment: KT RED INR: 2.0 - 3.0 CONDITIONS NOT LISTED BELOW 2.5 - 3.5 FOR PROSTHETIC HEART VALVE REPLACEMENT 2.5 - 3.5 RECURRENT THROMBOSIS Performed By: #### U RCX #### [facility] [address] [place] [address] Dr. Luis Alberto Olivia PT Coag (PPP) [Time] 11.6 s Normal 9.0-11.6 [facility] Comment on above: Performed By: #### U RCX #### [facility] [address] [place] [address] Dr. Luis Alberto Olivia PTTon 12-20-2021 aPTT Coag (Bld) [Time] 24.8 s Normal 22.3-36.2 [facility] Comment on above: Performed By: #### U RCX #### [facility] [address] [address] [address] Luis Alberto Olivia TYPE AND SCREENon 12-20-2021 TYPE AND SCREEN Negative Normal [facility] Comment on above: Performed By: #### T NS #### [facility] [address] [address] [address] Luis Alberto Olivia VIT B12 AND FOLATEon 022 Cobalamin (Vitamin B12) [Mass/Vol] 450.0 pg/mL Normal 193.0-986.0 [facility] Comment on above: Performed By: #### T RANSFR #### [facility] [address] [place] [address] Dr. Luis Alberto Olivia FOLATE 22.90 ng/mL Normal 8.60-58.90 [facility] Comment on above: Performed By: #### T RANSFR #### [facility] [address] [place] [address] Dr. Luis Alberto Olivia XR CHEST 1 [...] by: ESVIN ESTEVES Date: 2021-12-20 16:56 Normal [facility] CHEMISTRYOrdered By: SYSTEM SYSTEM on 11-05-2021 Albumin [...] 4.1 E9/L Normal 2.0 - 7.5 E9/L [facility] HEMATOLOGYOrdered By: Cindy Valenzuela on 11-05-2021 Erythrocyte distribution width (RBC) [Ratio] 17.6 % High 10.9 - 14.2 % [facility] Hematocrit (Bld) [Volume fraction] 36.7 % Low 37.7 - 49.0 % [facility] Hemoglobin (Bld) [Mass/Vol] 11.6 g/dL Low 13.5 - 17.5 gm/dL [facility] MCH (RBC) [Entitic mass] 28.4 pg Normal 27.0 - 34.0 pg [facility] MCHC (RBC) [Mass/Vol] 31.7 g/dL Normal 31.4 - 36.0 gm/dL [facility] MCV (RBC) [Entitic vol] 89.4 fL [...] 5.7 E9/L Normal 4.0 - 11.0 E9/L [facility] CULTURE URINEon 11-01-2021 CULTURE URINE Isolate [...] F Trimethoprim/Sulfamet hoxazole <=20 S F Normal [facility] Comment on above: Performed By: #### U RCX #### [facility] [address] [place] [address] Dr. Luis Alberto Olivia CBC AUTO DIFFon 10-30-2021 BASO # 0.0 103/ul Normal 0.0-0.1 [facility] Comment on above: Performed By: #### T RANSFR #### [facility] [address] [place] [address] Dr. Luis Alberto Olivia Basophils/100 WBC (Bld) 0.5 % Normal 0.2-2.0 [facility] Comment on above: Performed By: #### T RANSFR #### [facility] [address] [place] [address] Dr. Luis Alberto Olivia EO # 0.2 103/ul Normal 0.0-0.7 [facility] Comment on above: Performed By: #### T RANSFR #### [facility] [address] [place] [address] Dr. Luis Alberto Olivia Eosinophils/100 WBC (Bld) 2.8 % Normal 0.9-7.0 [facility] Comment on above: Performed By: #### T RANSFR #### [facility] [address] [place] [address] Dr. Luis Alberto Olivia Erythrocyte distribution width (RBC) [Ratio] 16.5 % Critically high 11.0-15.0 [facility] Comment on above: Performed By: #### T RANSFR #### [facility] [address] [place] [address] Dr. Luis Alberto Olivia Hematocrit (Bld) [Volume fraction] 36.5 % Critically low 42.0-54.0 [facility] Comment on above: Performed By: #### T RANSFR #### [facility] [address] [place] [address] Dr. Luis Alberto Olivia Hemoglobin (Bld) [Mass/Vol] 11.3 g/dL Critically low 14.0-18.0 [facility] Comment on above: Performed By: #### T RANSFR #### [facility] [address] [address] [address] Luis Alberto Olivia IG # 0.03 10e3/ul Normal 0.00-0.03 [facility] Comment on above: Performed By: #### T RANSFR #### [facility] [address] [place] [address] Dr. Luis Alberto Olivia IG % 0.5 % Normal 0.0-0.5 [facility] Comment on above: Performed By: #### T RANSFR #### [facility] [address] [place] [address] Dr. Luis Alberto Olivia LYMPH # 1.0 103/ul Critically low 1.2-3.8 [facility] Comment on above: Performed By: #### T RANSFR #### [facility] [address] [place] [address] Dr. Luis Alberto Olivia Lymphocytes/100 WBC (Bld) 16.0 % Critically low 20.5-60.0 [facility] Comment on above: Performed By: #### T RANSFR #### [facility] [address] [place] [address] Dr. Luis Alberto Olivia MANUAL DIFF REQ NO Normal [facility] Comment on above: Performed By: #### T RANSFR #### [facility] [address] [place] [address] Dr. Luis Alberto Olivia MCH (RBC) [Entitic mass] 28.4 pg Normal 25.9-34.0 [facility] Comment on above: Performed By: #### T RANSFR #### [facility] [address] [place] [address] Dr. Luis Alberto Olivia MCHC (RBC) [Mass/Vol] 31.0 g/dL Normal 29.9-35.2 [facility] Comment on above: Performed By: #### T RANSFR #### [facility] [address] [place] [address] Dr. Luis Alberto Olivia MCV (RBC) [Entitic vol] 91.7 fL Normal 80.0-94.0 [facility] Comment on above: Performed By: #### T RANSFR #### [facility] [address] [address] [address] Luis Alberto Olivia MONO # 0.6 103/ul Normal 0.3-0.8 [facility] Comment on above: Performed By: #### T RANSFR #### [facility] [address] [address] [address] Luis Alberto Olivia Monocytes/100 WBC (Bld) 9.8 % Normal 1.7-12.0 [facility] Comment on above: Performed By: #### T RANSFR #### [facility] [address] [address] [address] Luis Alberto Olivia NEUT # 4.2 103/ul Normal 1.4-6.5 [facility] Comment on above: Performed By: #### T RANSFR #### [facility] [address] [place] [address] Dr. Luis Alberto Olivia Neutrophils/100 WBC (Bld) 70.4 % Normal 43.0-75.0 [facility] Comment on above: Performed By: #### T RANSFR #### [facility] [facility] [address] [place] [address] Dr. Luis Alberto Olivia Platelet mean volume (Bld) [Entitic vol] 9.4 fL Critically low 9.5-13.5 [facility] Comment on above: Performed By: #### T RANSFR #### [facility] [address] [place] [address] Dr. Luis Alberto Olivia PLT 264 103/ul Normal 150-450 [facility] Comment on above: Performed By: #### T RANSFR #### [facility] [address] [place] [address] Dr. Luis Alberto Olivia RBC 3.98 106/ul Critically low 4.70-6.10 [facility] Comment on above: Performed By: #### T RANSFR #### [facility] [address] [place] [address] Dr. Luis Alberto Olivia WBC 6.0 103/ul Normal 4.0-11.0 [facility] Comment on above: Performed By: #### T RANSFR #### [facility] [address] [place] [address] Dr[address] ABD/PELVIS WO [...] MATTHEW ANN Date: 2021-10-30 14:48 Normal [facility] ER URINE PROFILEon 2 Bilirubin Ql (U) Negative Normal NEGATIVE [facility] Comment on above: Performed By: #### L IVER #### [facility] [address] [place] [address] Dr. Luis Alberto Olivia Clarity (U) CLEAR Normal CLEAR [facility] Comment on above: Performed By: #### L IVER #### [facility] [address] [place] [address] Dr. Luis Alberto Olivia Color (U) LT. YELLOW Normal YELLOW [facility] Comment on above: Performed By: #### L IVER #### [facility] [address] [place] [address] Dr. Luis Alberto Olivia ERUAHD A micrscopic examination will be performed if indicated. Normal [facility] Comment on above: Performed By: #### L IVER #### [facility] [address] [place], [place] [id number] Dr. Luis Alberto Olivia Glucose Ql (U) Negative Normal NEGATIVE [facility] Comment on above: Performed By: #### L IVER #### [facility] [address] [place] [address] Dr. Luis Alberto Olivia Hemoglobin Ql (U) TRACE-INTACT Abnormal NEGATIVE [facility] Comment on above: Performed By: #### L IVER #### [facility] [address] [place] [address] Dr. Luis Alberto Olivia Ketones Ql (U) Negative Normal NEGATIVE [facility] Comment on above: Performed By: #### L IVER #### [facility] [address] [place] [address] Dr. Luis Alberto Olivia LEUKOCYTES LARGE Abnormal NEGATIVE [facility] Comment on above: Performed By: #### L IVER #### [facility] [address] [place] [address] Dr. Luis Alberto Olivia Nitrite Ql (U) Negative Normal NEGATIVE [facility] Comment on above: Performed By: #### L IVER #### [facility] [address] [place] [address] Dr. Luis Alberto Olivia pH (U) 7.0 [pH] Normal 5-9 [facility] Comment on above: Performed By: #### L IVER #### [facility] [address] [place] [address] Dr. Luis Alberto Olivia SPEC GRAVITY 1.010 Normal 1.005-<=1.02 5 [facility] Comment on above: Performed By: #### L IVER #### [facility] [address] [place] [address] Dr. Luis Alberto Olivia UA PROTEIN Negative Normal NEGATIVE/ TRACE [facility] Comment on above: Performed By: #### L IVER #### [facility] [address] [place] [address] Dr. Luis Alberto Olivia UR MICRO IND INDICATED Normal [facility] Comment on above: Performed By: #### L IVER #### [facility] [address] [place] [address] Dr. Luis Alberto Olivia Urobilinogen Qn (U) 0.2 {Srini'U}/dL Normal 0.2 - 1. 0 [facility] Comment on above: Performed By: #### L IVER #### [facility] [address] [place] [address] Dr. Luis Alberto Olivia LACTATE/LACTIC ACIDon 2021 Lactate [Moles/Vol] 0.9 mmol/L Normal 0.4-1.9 [facility] Comment on above: Performed By: #### R ETYPE #### [facility] [address] [place] [address] Dr. Luis Alberto Olivia LIPASEon 10-30-2021 Lipase [Catalytic activity/Vol] 176.0 U/L Normal 73.0-393.0 [facility] Comment on above: Performed By: #### L IVER #### [facility] [address] [place] [address] Dr. Luis Alberto Olivia PROF 14(COMP METB)on 022 Albumin [Mass/Vol] 3.4 g/dL Normal 3.4-5.0 [facility] Comment on above: Performed By: #### L IVER #### [facility] [address] [place] [address] Dr. Luis Alberto Olivia Albumin/Globulin [Mass ratio] 0.9 {ratio} Normal [facility] Comment on above: Performed By: #### L IVER #### [facility] [address] [place] [address] Dr. Luis Alberto Olivia ALP [Catalytic activity/Vol] 64 U/L Normal 46-116 [facility] Comment on above: Performed By: #### L IVER #### [facility] [address] [place] [address] Dr. Luis Alberto Olivia ALT [Catalytic activity/Vol] 22 U/L Normal 16-63 [facility] Comment on above: Performed By: #### L IVER #### [facility] [address] [place] [address] Dr. Luis Alberto Olivia Anion gap [Moles/Vol] 12.4 mmol/L Normal [facility] Comment on above: Performed By: #### L IVER #### [facility] [address] [address] [address] Luis Alberto Olivia AST [Catalytic activity/Vol] 16 U/L Normal 15-37 [facility] Comment on above: Performed By: #### L IVER #### [facility] [address] [address] [address] Luis Alberto Olivia Bilirubin [Mass/Vol] 0.7 mg/dL Normal 0.2-1.0 [facility] Comment on above: Performed By: #### L IVER #### [facility] [address] [address] [address] Luis Alberto Olivia Calcium [Mass/Vol] 9.4 mg/dL Normal 8.5-10.1 [facility] Comment on above: Performed By: #### L IVER #### [facility] [address] [place] [address] Dr. Luis Alberto Olivia Chloride [Moles/Vol] 101 mmol/L Normal 98-107 [facility] Comment on above: Performed By: #### L IVER #### [facility] [address] [address] [address] Luis Alberto Olivia CO2 [Moles/Vol] 29.3 mmol/L Normal 21.0-32.0 [facility] Comment on above: Performed By: #### L IVER #### [facility] [address] [place] [address] Dr. Luis Alberto Olivia Creatinine [Mass/Vol] 1.22 mg/dL Normal 0.70-1.30 [facility] Comment on above: Performed By: #### L IVER #### [facility] [address] [address] [address] Luis Alberto Olivia EGFR-AF KAZAKH >60 Normal >=60 [facility] Comment on above: Performed By: #### L IVER #### [facility] [address] [address] [address] Luis Alberto Olivia EGFR-NON AF KAZAKH 58 mL/min/1.73m2 Critically low >=60 [facility] Comment on above: Performed By: #### L IVER #### [facility] [address] [address] [address] Luis Alberto Olivia Globulin (S) [Mass/Vol] 4.0 g/dL Normal [facility] Comment on above: Performed By: #### L IVER #### [facility] [address] [address] [address] Luis Alberto Olivia Glucose [Mass/Vol] 107 mg/dL Critically high 74-106 [facility] Comment on above: Performed By: #### L IVER #### [facility] [address] [address] [address] Luis Alberto Olivia Potassium [Moles/Vol] 3.7 mmol/L Normal 3.5-5.1 [facility] Comment on above: Performed By: #### L IVER #### [facility] [address] [place] [address] Dr. Luis Alberto Olivia Protein [Mass/Vol] 7.4 g/dL Normal 6.4-8.2 [facility] Comment on above: Performed By: #### L IVER #### [facility] [address] [address] [address] Luis Alberto Olivia Sodium [Moles/Vol] 139 mmol/L Normal 136-145 [facility] Comment on above: Performed By: #### L IVER #### [facility] [address] [address] [address] Luis Alberto Olivia Urea nitrogen [Mass/Vol] 15.0 mg/dL Normal 7.0-18.0 [facility] Comment on above: Performed By: #### L IVER #### [facility] [address] [address] [address] Luis Alberto Olivia Urea nitrogen/Creatinine [Mass ratio] 12.3 mg/mg Normal [facility] Comment on above: Performed By: #### L IVER #### [facility] [address] [address] [address] Luis Alberto Olivia URINE MICROSCOPIC ONLYon BACTERIA TRACE Abnormal NONE SEEN [facility] Comment on above: Performed By: #### T RANSFR #### [facility] [address] [place] [address] Dr. Luis Alberto Olivia Bacteria identified Cx Nom (U) INDICATED Normal [facility] Comment on above: Performed By: #### T RANSFR #### [facility] [address] [place] [address] Dr. Luis Alberto Olivia CAST NONE SEEN Normal NONE SEEN [facility] Comment on above: Performed By: #### T RANSFR #### [facility] [address] [place] [address] Dr. Luis Alberto Olivia Crystals LM Nom (Urine sed) NONE SEEN Normal NONE SEEN [facility] Comment on above: Performed By: #### T RANSFR #### [facility] [address] [place] [address] Dr. Luis Alberto Olivia Epithelial cells LM Ql (Urine sed) RARE Normal NONE SEEN /RARE [facility] Comment on above: Performed By: #### T RANSFR #### [facility] [address] [place] [address] Dr. Luis Alberto Olivia MUCOUS NONE SEEN Normal NONE SEEN [facility] Comment on above: Performed By: #### T RANSFR #### [facility] [address] [place] [address] Dr. Luis Alberto Olivia RBC 2-5 Abnormal 0-2 [facility] Comment on above: Performed By: #### T RANSFR #### [facility] [address] [place] [address] Dr. Luis Alberto Olivia WBC 20-50 Abnormal NONE SEEN [facility] Comment on above: Performed By: #### T RANSFR #### [facility] [address] [place] [address] Dr. Luis Alberto Olivia Reference Laboratory Testing Ordered By: [facility] DomainUser on 05-08-2021 SARS-CoV-2 (COVID-19) RNA BOAZ+probe Ql (Resp) Not detected Invalid Interpretation Code Not Detected [facility] [employer] Comment on above: Result Comment: This nucleic acid amplification test was developed and its performance characteristics determined by [employer]. Nucleic acid amplification tests include RT-PCR and [...] detected) result in this assay. Performed at: [facility] [id number] PhD Andres Guevara FOREARM LEFTon 04-09-2021 FOREARM LEFT [facility] Department of Radiology [address] [place] [id number] Patient Name: IRENA PERAZA : 1945 Sex: M Age: Race: White Pt. 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 Electronically signed: Trung Hightower. Transcribed by: [email or web address], User Resident: Electronically Signed by: TRUNG HIGHTOWER @ 04/10/2021 02:55 PM Normal The [facility] Comment on above: Order Comment: evalu ate KNEE RIGHT 3 [facility] KNEE RIGHT 3 [facility] Department of Radiology [address] [place] [id number] Patient Name: IRENA PERAZA : 1945 Sex: M Age: Race: White Pt. 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 COMPARISON: 03/14/2020, 03/16/2019. IMPRESSION: 1. 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 No aggressive features. 2. Osteopenia, no fracture or malalignment. Degenerative changes, complete patellofemoral joint space loss. Electronically signed: Trung Hightower. Transcribed by: [email or web address], User Resident: Electronically Signed by: TRUNG HIGHTOWER @ 04/10/2021 02:56 PM Normal [facility] Comment on above: Order Comment: evalu ate [...] 11 2017 3:16PDictated by : Sidra ASH MDThis examination was interpreted and the report reviewed and electronically signed by: Sidra ASH MD on Oct 11 2017 3:17PM [id number] [facility] XR SHLDR >/=3V AP/FAISAL AP/OTH R [...] Stable postsurgical changes without interval complication.Transcri ptionist: [facility] Transcribe Date/Time: Mar 22 2017 12:18PDictated by : MONIK ESPOSITO MDThijorje examination was interpreted and the report reviewed and electronically signed by: MONIK ESPOSITO MD on Mar 22 2017 12:19PM [id number] [facility] XR SHLDR >/=3V AP/FAISAL AP/OTH R [...] Stable postsurgical changes without interval complication.Transcri ptionist: [facility] Transcribe Date/Time: Mar 22 2017 12:18PDictated by : Kwaku STROUD examination was interpreted and the report reviewed and electronically signed by: MONIK ESPOSITO MD on Mar 22 2017 12:19PM [id number] [facility] XR SHOULDER M2V UNIon 2016 XR [...] unchanged.IMPRESSION: Postsurgical changes without interval complication.Transcri ptionist: KIMBERLY Transcribe Date/Time: Nov 09 2016 3:37PDictated by : PATRICIA LE MDThis examination was interpreted and the report reviewed and electronically signed by: PATRICIA LE MD on Nov 09 2016 3:39PM [facility] Vital Signs Date Time Vital Sign Value [facility]forming [facility] 09:55-0500 Body height 177.8 cm Odalys Rosa MD Work Phone: [facility] 04-12-2024 09:55-0500 Body mass index (BMI) [Ratio] 30.84 kg/m2 Odalys Rosa MD Work Phone: [facility] 04-12-2024 09:55-0500 Body weight 97.5 kg Odalys Rosa MD Work Phone: [facility] 04-12-2024 09:55-0500 Diastolic blood pressure 78 mm[Hg] Odalys Rosa MD Work Phone: [facility] 04-12-2024 09:55-0500 Heart rate 86 /min Odalys Rosa MD Work Phone: [facility] 04-12-2024 09:55-0500 Systolic blood pressure 118 mm[Hg] Odalys Rosa MD Work Phone: [facility] 04-10-2024 11:29-0500 Body height 172.7 cm Haris ENG S Work Phone: [facility] 04-10-2024 11:29-0500 Body mass index (BMI) [Ratio] 32.69 kg/m2 Haris Dolce DPM FACFAS Work Phone: [facility] 04-10-2024 11:29-0500 Body weight 97.52 kg Haris Sutton DPM FACFA S Work Phone: [facility] 04-10-2024 11:29-0500 Diastolic blood pressure 77 mm[Hg] Haris Sutton DPM FACFAS Work Phone: [facility] 04-10-2024 11:29-0500 Heart rate 68 /min Haris Sutton DPM FACFA S Work Phone: [facility] 04-10-2024 11:29-0500 Systolic blood pressure 132 mm[Hg] Haris Sutton DPM FACFAS Work Phone: [facility] 02-12-2024 11:01-0400 Body temperature 99.68 [degF] Antony Blackburn [facility] 02-12-2024 11:01-0400 Diastolic blood pressure 78 mm[Hg] Antony Blackburn [facility] 02-12-2024 11:01-0400 Heart rate 115 /min Antony Blackburn [facility] 02-12-2024 11:01-0400 Respiratory rate 16 /min Antony Blackburn [facility] 02-12-2024 11:01-0400 SaO2% (BldA) [Mass fraction] 97 % Antony Blackburn [facility] 02-12-2024 11:01-0400 Systolic blood pressure 156 mm[Hg] Antony Blackburn [facility] 01-31-2024 12:07-0400 Body height 172.7 cm Adilene RODRIGUEZ Work Phone: [facility] 01-31-2024 12:07-0400 Body mass index (BMI) [Ratio] 32.69 kg/m2 Adilene RODRIGUEZ Work Phone: [facility] 01-31-2024 12:07-0400 Body weight 97.52 kg Adilene Lowe PA Work Phone: [facility] 01-31-2024 12:07-0400 Diastolic blood pressure 78 mm[Hg] Adilene Lowe PA Work Phone: [facility] 01-31-2024 12:07-0400 Systolic blood pressure 134 mm[Hg] Adilene Lowe PA Work Phone: [facility] 01-17-2024 11:59-0400 Body height 172.7 cm Haris Sutton DPM FACFA S Work Phone: [facility] 01-17-2024 11:59-0400 Body mass index (BMI) [Ratio] 33.3 kg/m2 Haris Sutton DPM FACFAS Work Phone: [facility] 01-17-2024 11:59-0400 Body weight 99.34 kg Haris Sutton DPM FACFA S Work Phone: [facility] 01-17-2024 11:59-0400 Diastolic blood pressure 75 mm[Hg] Haris Sutton DPM FACFAS Work Phone: [facility] 01-17-2024 11:59-0400 Heart rate 70 /min Haris Sutton DPM FACFA S Work Phone: [facility] 01-17-2024 11:59-0400 Systolic blood pressure 126 mm[Hg] Haris Sutton DPM FACFAS Work Phone: [facility] 11-17-2023 15:55-0400 Body height 177.8 cm Kaylah Kemp MD Work Phone: [facility] 11-17-2023 15:55-0400 Body mass index (BMI) [Ratio] 30.85 kg/m2 Kaylah Kemp MD Work Phone: [facility] 11-17-2023 15:55-0400 Body weight 97.52 kg Kaylah Kemp MD Work Phone: [facility] 11-17-2023 15:55-0400 Diastolic blood pressure 75 mm[Hg] Kaylah Kemp MD Work Phone: [facility] 11-17-2023 15:55-0400 Heart rate 70 /min Kaylah Kemp MD Work Phone: [facility] 11-17-2023 15:55-0400 Systolic blood pressure 127 mm[Hg] Kaylah Kemp MD Work Phone: [facility] 11-17-2023 15:10-0400 Diastolic blood pressure 80 mm[Hg] [facility] 11-17-2023 15:10-0400 Heart rate 69 /min [facility] 11-17-2023 15:10-0400 SaO2% (BldA) [Mass fraction] 95 % [facility] 11-17-2023 15:10-0400 Systolic blood pressure 136 mm[Hg] [facility] 11-17-2023 14:51-0400 Respiratory rate 23 /min [facility] 11-17-2023 13:56-0400 Body temperature 97.7 [degF] [facility] 11-11-2023 11:37-0400 Diastolic blood pressure 89 mm[Hg] Alpa Ram DO Work Phone: [facility] 11-11-2023 11:37-0400 Systolic blood pressure 138 mm[Hg] Alpa Ram DO Work Phone: [facility] 11-11-2023 10:31-0400 Body height 177.8 cm Alpa Ram DO Work Phone: [facility] 11-11-2023 10:31-0400 Body mass index (BMI) [Ratio] 30.91 kg/m2 Alpa Ram DO Work Phone: [facility] 11-11-2023 10:31-0400 Body temperature 97.7 [degF] Alpa Ram DO Work Phone: [facility] 11-11-2023 10:31-0400 Body weight 97.7 kg Alpa Ram DO Work Phone: [facility] 11-11-2023 10:31-0400 Heart rate 72 /min Alpa Ram DO Work Phone: [facility] 11-11-2023 10:31-0400 SaO2% (BldA) [Mass fraction] 97 % Alpa Ram DO Work Phone: [facility] 11-01-2023 10:14-0400 Blood Pressure Location Nghia ROBERSON [facility] 11-01-2023 10:14-0400 Body temperature 97.88 [degF] Nghia Listen Up [facility] 11-01-2023 10:14-0400 Diastolic blood pressure 76 mm[Hg] Nghia[employer]ge [facility] 11-01-2023 10:14-0400 Heart rate 74 /min Nghia Listen Up [facility] 11-01-2023 10:14-0400 Respiratory rate 16 /min Nghia Listen Up [facility] 11-01-2023 10:14-0400 SaO2% (BldA) [Mass fraction] 94 % Nghia Listen Up [facility] 11-01-2023 10:14-0400 Systolic blood pressure 122 mm[Hg] Nghia Listen Up [facility] 09-06-2023 14:00-0400 Blood Pressure Location Jevon Pantoja [facility] 09-06-2023 14:00-0400 Body temperature 98.24 [degF] Jevon Pantoja [facility] 09-06-2023 14:00-0400 Diastolic blood pressure 78 mm[Hg] Jevon Smithicz [facility] 09-06-2023 14:00-0400 Heart rate 92 /min Jevonsamra Pantoja [facility] 09-06-2023 14:00-0400 SaO2% (BldA) [Mass fraction] 96 % [facility] 14:00-0400 Systolic blood pressure 158 mm[Hg] [facility] 08-29-2023 10:08-0400 Body mass index (BMI) [Ratio] 30.18 kg/m2 Alpa Ram DO Work Phone: [facility] 08-29-2023 10:08-0400 Body weight 95.4 kg Alpa Ram DO Work Phone: [facility] 08-29-2023 10:08-0400 Diastolic blood pressure 56 mm[Hg] Alpa Ram DO Work Phone: [facility] 08-29-2023 10:08-0400 Heart rate 84 /min Alpa Ram DO Work Phone: [facility] 08-29-2023 10:08-0400 Systolic blood pressure 120 mm[Hg] Alpa Ram DO Work Phone: [facility] 08-24-2023 13:53-0400 Body temperature 97.7 [degF] [facility] 08-24-2023 13:53-0400 Diastolic blood pressure 91 mm[Hg] [facility] 08-24-2023 13:53-0400 Heart rate 87 /[facility] 08-24-2023 13:53-0400 Mean blood pressure 115 mm[Hg] [facility] 08-24-2023 13:53-0400 Respiratory rate 16 /min [facility] 08-24-2023 13:53-0400 SaO2% (BldA) [Mass fraction] 98 % [facility] 08-24-2023 13:53-0400 Systolic blood pressure 164 mm[Hg] Jevon Pantoja [facility] 08-15-2023 14:42-0400 Body weight 95.5 kg Odalys Rosa MD Work Phone: [facility] 08-15-2023 14:42-0400 Diastolic blood pressure 60 mm[Hg] Odalys Rosa MD Work Phone: [facility] 08-15-2023 14:42-0400 Heart rate 82 /min Odalys Rosa MD Work Phone: [facility] 08-15-2023 14:42-0400 SaO2% (BldA) [Mass fraction] 98 % Odalys Rosa MD Work Phone: [facility] 08-15-2023 14:42-0400 Systolic blood pressure 136 mm[Hg] Odalys Rosa MD Work Phone: [facility] 07-18-2023 10:26-0400 Body height 177.8 cm Angeli Kimball MD Work Phone: [facility] 07-18-2023 10:26-0400 Body weight 96.7 kg Angeli Kimball MD Work Phone: [facility] 07-18-2023 10:26-0400 Diastolic blood pressure 84 mm[Hg] Angeli Kimball MD Work Phone: [facility] 07-18-2023 10:26-0400 Heart rate 120 /min Angeli Kimball MD Work Phone: [facility] 07-18-2023 10:26-0400 Systolic blood pressure 150 mm[Hg] Angeli Kimball MD Work Phone: [facility] 06-24-2023 10:44-0500 Blood Pressure Location Moffett Sarmini [facility] 06-24-2023 10:44-0500 Diastolic blood pressure 80 mm[Hg] Moffett Sarmini [facility] 06-24-2023 10:44-0500 Heart rate 68 /min Moffett Sarmini [facility] 06-24-2023 10:44-0500 Respiratory rate 18 /min Zuhair Sheamini [facility] 06-24-2023 10:44-0500 Systolic blood pressure 138 mm[Hg] Zuhair Trani [facility] 06-22-2023 14:48-0500 Body height 177.8 cm Alpa Ram DO Work Phone: [facility] 06-22-2023 14:48-0500 Body temperature 99.1 [degF] Alpa Ram DO Work Phone: [facility] 06-22-2023 14:48-0500 Body weight 94.8 kg Alpa Ram DO Work Phone: [facility] 06-22-2023 14:48-0500 Diastolic blood pressure 66 mm[Hg] Alpa Ram DO Work Phone: [facility] 06-22-2023 14:48-0500 Heart rate 102 /min Alpa Ram DO Work Phone: [facility] 06-22-2023 14:48-0500 SaO2% (BldA) [Mass fraction] 97 % Alpa Ram DO Work Phone: [facility] 06-22-2023 14:48-0500 Systolic blood pressure 116 mm[Hg] Alpa Ram DO Work Phone: [facility] 06-20-2023 14:31-0500 Body height 177.8 cm Scarlett Gaviria Work Phone: [facility] 06-20-2023 14:31-0500 Body mass index (BMI) [Ratio] 29.7 kg/m2 Scarlett Gaviria Work Phone: [facility] 06-20-2023 14:31-0500 Body weight 93.89 kg Scarlett Gaviria Work Phone: [facility] 06-14-2023 11:50-0500 Body height 172.7 cm Haris Tracy DPM FACFA S Work Phone: [facility] 06-14-2023 11:50-0500 Body mass index (BMI) [Ratio] 33.3 kg/m2 Haris Sutton DPM FACFAS Work Phone: [facility] 06-14-2023 11:50-0500 Body weight 99.34 kg Haris Sutton DPM FACFA S Work Phone: [facility] 06-14-2023 11:50-0500 Diastolic blood pressure 74 mm[Hg] Haris Sutton DPM FACFAS Work Phone: [facility] 06-14-2023 11:50-0500 Heart rate 72 /min Haris Sutton DPM FACFA S Work Phone: [facility] 06-14-2023 11:50-0500 Systolic blood pressure 118 mm[Hg] Haris Sutton DPM FACFAS Work Phone: [facility] 02-02-2023 14:40-0400 Blood Pressure Location Nghia ALLAN [facility] 02-02-2023 14:40-0400 Diastolic blood pressure 77 mm[Hg] Nghia ROBERSON [facility] 02-02-2023 14:40-0400 Heart rate 73 /min Nghia ROBERSON [facility] 02-02-2023 14:40-0400 Systolic blood pressure 134 mm[Hg] Nghia ROBERSON [facility] 09-14-2022 15:19-0400 Body height 177.8 cm Kaylah Kemp MD Work Phone: [facility] 09-14-2022 15:19-0400 Body weight 92.99 kg Kaylah Kemp MD Work Phone: [facility] 09-14-2022 15:19-0400 Diastolic blood pressure 71 mm[Hg] Kaylah Kemp MD Work Phone: [facility] 09-14-2022 15:19-0400 Heart rate 70 /min Kaylah Kemp MD Work Phone: [facility] 09-14-2022 15:19-0400 Systolic blood pressure 139 mm[Hg] Kaylah Kemp MD Work Phone: [facility] 09-03-2022 12:51-0400 Blood Pressure Location [facility] 09-03-2022 12:51-0400 Body temperature 97.88 [degF] [facility] 09-03-2022 12:51-0400 Diastolic blood pressure 82 mm[Hg] [facility] 09-03-2022 12:51-0400 Heart rate 83 /min [facility] 09-03-2022 12:51-0400 Mean blood pressure 107 mm[Hg] [facility] 09-03-2022 12:51-0400 Respiratory rate 18 /min [facility] 09-03-2022 12:51-0400 SaO2% (BldA) [Mass fraction] 93 % [facility] 09-03-2022 12:51-0400 Systolic blood pressure 156 mm[Hg] [facility] 08-19-2022 14:01-0400 Heart rate 83 /min [facility] 08-19-2022 14:01-0400 SaO2% (BldA) [Mass fraction] 98 % [facility] 08-19-2022 14:01-0400 Diastolic blood pressure 78 mm[Hg] [facility] 08-19-2022 14:01-0400 Mean blood pressure 100 mm[Hg] Jevon Pantoja [facility] 08-19-2022 14:01-0400 Systolic blood pressure 144 mm[Hg] Jevon Pantoja [facility] 08-19-2022 14:01-0400 Body temperature 97.88 [degF] Jevon Pantoja [facility] 08-19-2022 14:00-0400 Blood Pressure Location Jevon Pantoja [facility] 08-19-2022 14:00-0400 Respiratory rate 18 /min Jevon Pantoja [facility] 07-15-2022 14:23-0400 Diastolic blood pressure 74 mm[Hg] Good SALAM [facility] 07-15-2022 14:23-0400 Mean blood pressure 100 mm[Hg] Good SALAM [facility] 07-15-2022 14:23-0400 Systolic blood pressure 152 mm[Hg] Good SALAM [facility] 07-15-2022 14:16-0400 Blood Pressure Location Good SALAM [facility] 07-15-2022 14:16-0400 Diastolic blood pressure 86 mm[Hg] Good SALAM [facility] 07-15-2022 14:16-0400 Heart rate 85 /min Good SALAM [facility] 07-15-2022 14:16-0400 Respiratory rate 16 /min Good SALAM [facility] 07-15-2022 14:16-0400 Systolic blood pressure 152 mm[Hg] Good SALAM [facility] 05-18-2022 12:31-0500 Diastolic blood pressure 81 mm[Hg] Flory Maravilla MD Work Phone: [facility] 05-18-2022 12:31-0500 Systolic blood pressure 136 mm[Hg] Flory Maravilla MD Work Phone: [facility] 05-18-2022 12:28-0500 Body height 177.8 cm Flory cortez MD Work Phone: [facility] 05-18-2022 12:28-0500 Body weight 94.67 kg Flory cortez MD Work Phone: [facility] 05-18-2022 12:28-0500 Heart rate 83 /min Flory cortez MD Work Phone: [facility] 05-18-2022 12:28-0500 SaO2% (BldA) [Mass fraction] 97 % Flory Maravilla MD Work Phone: [facility] 04-13-2022 09:18-0500 Body height 177.8 cm Kaylah Kemp MD Work Phone: [facility] 04-13-2022 09:18-0500 Body weight 94.8 kg Kaylah Kemp MD Work Phone: [facility] 04-13-2022 09:18-0500 Diastolic blood pressure 94 mm[Hg] Kaylah Kemp MD Work Phone: [facility] 04-13-2022 09:18-0500 Heart rate 84 /min Kaylah Kemp MD Work Phone: [facility] 04-13-2022 09:18-0500 Systolic blood pressure 153 mm[Hg] Kaylah Kemp MD Work Phone: [facility] 02-18-2022 13:28-0400 Diastolic blood pressure 66 mm[Hg] Jevon Pantoja [facility] 02-18-2022 13:28-0400 Heart rate 92 /min Jevon Pantoja [facility] 02-18-2022 13:28-0400 Mean blood pressure 102 mm[Hg] [facility] 02-18-2022 13:28-0400 Systolic blood pressure 173 mm[Hg] [facility]-18-[facility]22 13:22-0400 Blood [facility] 02-18-2022 13:22-0400 Body temperature 98.6 [degF] [facility] 02-18-2022 13:22-0400 BP/Pulse [facility] 02-18-2022 13:22-0400 Diastolic blood pressure 96 mm[Hg] [facility] 02-18-2022 13:22-0400 Heart rate 81 /min [facility] 02-18-2022 13:22-0400 Mean blood pressure 121 mm[Hg] [facility] 02-18-2022 13:22-0400 Respiratory rate 17 /min [facility] 02-18-2022 13:22-0400 SaO2% (BldA) [Mass fraction] 98 % [facility] 02-18-2022 13:22-0400 Systolic blood pressure 171 mm[Hg] [facility] 01-08-2022 11:10-0400 Blood [facility] 01-08-2022 11:10-0400 Body temperature 98.24 [degF] [facility] 01-08-2022 11:10-0400 Diastolic blood pressure 95 mm[Hg] [facility] 01-08-2022 11:10-0400 Heart rate 71 /min [facility] 01-08-2022 11:10-0400 Mean blood pressure 113 mm[Hg] [facility] 01-08-2022 11:10-0400 Respiratory rate 18 /min Jevon Pantoja [facility] 01-08-2022 11:10-0400 SaO2% (BldA) [Mass fraction] 99 % Jevon Pantoja [facility] 01-08-2022 11:10-0400 Systolic blood pressure 150 mm[Hg] Jevon Pantoja [facility] 01-06-2022 13:13-0400 Body height 177.8 cm Odalys Rosa MD Work Phone: [facility] 01-06-2022 13:130400 Body weight 96.07 kg Odalys Rosa MD Work Phone: [facility] 01-06-2022 13:13-0400 Diastolic blood pressure 68 mm[Hg] Odalys Rosa MD Work Phone: [facility] 01-06-2022 13:13-0400 Heart rate 70 /min Odalys Rosa MD Work Phone: [facility] 01-06-2022 13:13-0400 Systolic blood pressure 124 mm[Hg] Odalys Rosa MD Work Phone: [facility] 01-06-2022 09:11-0400 Blood Pressure Location Good SALAM [facility] 01-06-2022 09:11-0400 Diastolic blood pressure 78 mm[Hg] Good SALAM [facility] 01-06-2022 09:11-0400 Heart rate 70 /min Good SALAM [facility] 01-06-2022 09:11-0400 Respiratory rate 16 /min Good SALAM [facility] 01-06-2022 09:11-0400 Systolic blood pressure 124 mm[Hg] Good SALAM [facility] 12-24-2021 14:54-0400 Blood Pressure Location Jevon Pantoja [facility] 12-24-2021 14:54-0400 Body temperature 98.06 [degF] Jevonsamra Pnatoja [facility] 12-24-2021 14:54-0400 BP/Pulse Patient Position Jevon Pantoja [facility] 12-24-2021 14:54-0400 Diastolic blood pressure 72 mm[Hg] Jevonsamra Pantoja [facility] 12-24-2021 14:54-0400 Heart rate 70 /min Jevonsamra Pantoja [facility] 12-24-2021 14:54-0400 Mean blood pressure 90 mm[Hg] Jevon Pantoja [facility] 12-24-2021 14:54-0400 Respiratory rate 18 /min Jevonsamra Pantoja [facility] 12-24-2021 14:54-0400 SaO2% (BldA) [Mass fraction] 94 % [facility] 12-24-2021 14:54-0400 Systolic blood pressure 126 mm[Hg] [facility] 12-01-2021 10:18-0400 Diastolic blood pressure 82 mm[Hg] [facility] 12-01-2021 10:18-0400 Mean blood pressure 101 mm[Hg] Patricia [facility] 12-01-2021 10:18-0400 Systolic blood pressure 138 mm[Hg] Patricia [facility] 12-01-2021 10:15-0400 Blood Pressure Location Patricia [facility] 12-01-2021 10:15-0400 Body temperature 97.7 [degF] Patricia [facility] 12-01-2021 10:15-0400 Diastolic blood pressure 90 mm[Hg] Patricia [facility] 12-01-2021 10:15-0400 Heart rate 74 /min Patricia [facility] 12-01-2021 10:15-0400 SaO2% (BldA) [Mass fraction] 95 % [facility] 12-01-2021 10:15-0400 Systolic blood pressure 147 mm[Hg] Patricianikkie [facility] 11-05-2021 10:42-0400 [facility] 11-05-2021 10:42-0400 Body temperature 98.42 [degF] [facility] 11-05-2021 10:42-0400 BP/Pulse Patient Position [facility] 11-05-2021 10:42-0400 Diastolic blood pressure 65 mm[Hg] [facility] 11-05-2021 10:42-0400 Heart rate 75 /min [facility] 11-05-2021 10:42-0400 Mean blood pressure 90 mm[Hg] [facility] 11-05-2021 10:42-0400 Respiratory rate 17 /min [facility] 11-05-2021 10:42-0400 SaO2% (BldA) [Mass fraction] 96 % [facility] 11-05-2021 10:42-0400 Systolic blood pressure 142 mm[Hg] [facility] 11-05-2021 10:42-0400 Mean blood pressure 91 mm[Hg] Jevon Pantoja [facility] 07-27-2021 10:55-0400 Diastolic blood pressure 66 mm[Hg] Good SALAM [facility] 07-27-2021 10:55-0400 Heart rate 80 /min Good SALAM [facility] 07-27-2021 10:55-0400 Respiratory rate 23 /min Good SALAM [facility] 07-27-2021 10:55-0400 SaO2% (BldA) [Mass fraction] 98 % Good SALAM [facility] 07-27-2021 10:55-0400 Systolic blood pressure 109 mm[Hg] Good SALAM [facility] 07-27-2021 10:40-0400 Diastolic blood pressure 70 mm[Hg] Good SALAM [facility] 07-27-2021 10:40-0400 Heart rate 81 /min Good SALAM [facility] 07-27-2021 10:40-0400 Respiratory rate 20 /min Good SALAM [facility] 07-27-2021 10:40-0400 SaO2% (BldA) [Mass fraction] 97 % Good SALAM [facility] 07-27-2021 10:40-0400 Systolic blood pressure 116 mm[Hg] Good SALAM [facility] 07-27-2021 10:35-0400 Diastolic blood pressure 61 mm[Hg] Good SALAM [facility] 07-27-2021 10:35-0400 Heart rate 81 /min Good SALAM [facility] 07-27-2021 10:35-0400 Respiratory rate 12 /min [employer] [facility] 07-27-2021 10:35-0400 SaO2% (BldA) [Mass fraction] 96 % [employer] [facility] 07-27-2021 10:35-0400 Systolic blood pressure 117 mm[Hg] Good [facility] 07-27-2021 10:25-0400 Body temperature 97.52 [degF] [employer] [facility] 07-27-2021 10:00-0400 Blood Pressure Location [employer] [facility] 07-27-2021 10:00-0400 Body temperature 98.24 [degF] [employer] [facility] Encounters Encounter Date Encounter Type Care Provider Facility Start: 05-22-2024 ambulatory Nghia ROBERSON Facility :[facility] Start: 04-23-2024 End: 04-23-2024 Telephone encounter Odalys Rosa MD Work Phone: Cardiology Comment on above: Patient Question (A fib confirmation) Start: 04-13-2024 End: 04-13-2024 Telephone encounter Odalys Rosa MD Work Phone: Cardiology Start: 04-13-2024 End: 04-13-2024 ambulatory ODALYS ROSA Facility:[facility] Start: 04-12-2024 End: 04-12-2024 ambulatory ODALYS ROSA Facility:[facility] Start: 04-12-2024 End: 04-12-2024 Patient encounter procedure Odalys Rosa MD Work Phone: Cardiology Comment on above: Paroxysmal atrial fi brillation (HCC) (Primary Dx) Start: 04-10-2024 End: 04-10-2024 Bamboo flowsheet Haris Sutton DPM FACFAS Work Phone: [facility] Start: 04-10-2024 End: 04-10-2024 Bamboo flowsheet Haris Pool Doljohana DPM FACFAS Work Phone: [facility] Start: 04-10-2024 End: 04-10-2024 Patient encounter procedure Haris Sutton DPM FACFAS Work Phone: [facility] Comment on above: Onychomycosis (Prima ry Dx); Pain in left toe(s); Pain in right toe(s) Start: 04-10-2024 End: 04-10-2024 ambulatory HARIS Pool RANJITJOHANA Not Available Start: 03-27-2024 End: 03-27-2024 Refill Michael Simms MD Work Phone: Cardiology Comment on above: Refill Request Start: 03-09-2024 End: 03-09-2024 ambulatory Jevon Pantoja Facility[facility] Start: 03-09-2024 End: 03-09-2024 Patient encounter procedure Jevon Pantoja [facility] Start: 02-16-2024 End: 02-16-2024 ambulatory KONRAD AGUSTIN Not Available Start: 02-16-2024 End: 02-16-2024 Bamboo flowsheet Konrad Agustin MD Work Phone: [facility] Start: 02-16-2024 End: 02-16-2024 Bamboo flowsluis Agustin MD Work Phone: [facility] Start: 02-16-2024 End: 02-16-2024 Office outpatient visit 15 minutes Konrad Agustin MD Work Phone: [facility] Comment on above: Seborrheic keratosis (Primary Dx); Actinic keratosis; Lentigines; Bacterial folliculitis; History of malignant melanoma of skin Start: 02-15-2024 End: 02-15-2024 ambulatory [facility] Start: 02-14-2024 End: 02-14-2024 ambulatory ODALYS ROSA Facility:[facility] Start: 02-14-2024 End: 02-14-2024 ambulatory ALPA RAM Facility:[facility] Start: 02-12-2024 End: 02-12-2024 Emergency department patient visit Antony RaoBen Blackburn [facility] Start: 01-31-2024 End: 01-31-2024 Admission to same day surgery center Alpa Ram DO Work Phone: Ambulatory Surgery Comment on above: preprocedure instruc tions Start: 01-31-2024 End: 01-31-2024 Bamboo flowsheet Adilene Lowe PA Work Phone: [facility] Start: 01-31-2024 End: 01-31-2024 Bamboo Siftheet Adilene Lowe PA Work Phone: [facility] Start: 01-31-2024 End: 01-31-2024 E-mail encounter from caregiver Alpa Ram Work Phone: Ambulatory Surgery Start: 01-31-2024 End: 01-31-2024 ambulatory ADILENE LOWE Not Available Start: 01-31-2024 End: 01-31-2024 Office outpatient visit 15 minutes Adilene Lowe PA Work Phone: [facility] Comment on above: MICHELE (obstructive sle ep apnea) (Primary Dx); Right median nerve neuropathy; Neck pain; Lumbar back pain; Depression, unspecified depression type (CMS/HCC) Start: 01-26-2024 End: 01-26-2024 ambulatory [facility] Start: 01-25-2024 End: 01-25-2024 Orders Only Alpa Ram DO Work Phone: [facility] Comment on above: Lumbar spondylosis ( Primary Dx) Start: 01-17-2024 End: 01-17-2024 Bamboo flowsheet Haris Sutton DPM FACFAS Work Phone: [facility] Start: 01-17-2024 End: 01-17-2024 Bamboo flowsheet Haris Sutton DPM FACFAS Work Phone: [facility] Start: 01-17-2024 End: 01-17-2024 Office outpatient visit 15 minutes Haris Sutton DPM FACFAS Work Phone: [facility] Comment on above: Acute idiopathic gou t involving toe of right foot (Primary Dx); Other enthesopathy of right foot and ankle; Onychomycosis; Pain in left foot; Pain in left toe(s); Pain in right toe(s) Start: 01-17-2024 End: 01-17-2024 ambulatory HARIS SUTTON Not Available Start: 01-16-2024 End: 01-16-2024 ambulatory Alpa Ram DO Work Phone: Spine Medicine Comment on above: Lumbar spondylosis ( Primary Dx); Chronic bilateral low back pain without sciatica; Degenerative lumbar spinal stenosis Start: 01-16-2024 End: 01-16-2024 Telemedicine consultation with patient Alpa Ram DO Work Phone: Spine Medicine Start: 01-13-2024 End: 01-13-2024 ambulatory Scarlett Gaviria Facility:[facility] Start: 01-13-2024 End: 01-13-2024 Patient encounter procedure Scarlett Gaviria [facility] Start: 12-30-2023 End: 12-30-2023 Telephone encounter Alpa Ram DO Work Phone: [facility] Start: 12-20-2023 End: 12-20-2023 ambulatory SCARLETT GAVIRIA Facility:[facility] Start: 12-15-2023 Telephone encounter Alpa Ram DO Work Phone: [facility] Comment on above: Preparations For Pro cedures (Pre-injection instructions for 12/20/2023) Start: 12-01-2023 End: 12-01-2023 ambulatory CLARE MAGUIRE Not Available Start: 11-26-2023 Orders Only Alpa hung DO Work Phone: Neurology Comment on above: Spinal stenosis, lum bar region, without neurogenic claudication (Primary Dx); Lumbar radiculopathy Start: 11-17-2023 End: 11-17-2023 ambulatory KAYLAH KEMP Facility:[facility] Start: 11-17-2023 End: 11-17-2023 Patient encounter procedure [...] 11-17-2023 Patient entered into trial [facility] Start: 11-17-2023 End: 11-17-2023 [facility] Start: 11-16-2023 Telephone encounter Zahira Piña RN Cardiology Start: 11-11-2023 End: 11-11-2023 ambulatory SCARLETT GAVIRIA Facility:[facility] Start: 11-11-2023 End: 11-11-2023 Patient encounter procedure Alpa Ram DO Work Phone: Spine Medicine Comment on above: Spinal stenosis of l umbar region with radiculopathy (Primary Dx); Lower extremity numbness Start: 11-09-2023 Refill Angeli Pool Work Phone: Cardiology Comment on above: Refill Request Start: 11-08-2023 End: 11-08-2023 ambulatory HARIS SUTTON Not Available Start: 11-01-2023 End: 11-01-2023 ambulatory Nghia ROBERSON Facility:[facility] Start: 11-01-2023 End: 11-01-2023 Patient encounter procedure Nghia ROBERSON [facility] Start: 10-28-2023 End: 10-28-2023 ambulatory Nghia ROBERSON Facility:[facility] Start: 10-28-2023 End: 10-28-2023 Patient encounter procedure Nghia ROBERSON [facility] Start: 10-26-2023 ambulatory Nghia ROBERSON Facility :[facility] Start: 10-19-2023 Refill Angeli Pool Work Phone: Cardiology Comment on above: Refill Request Start: 10-11-2023 End: 10-11-2023 ambulatory ODALYS ROSA Facility:[facility] Start: 10-03-2023 Refill Odalys weclh MD Work Phone: Cardiology Comment on above: Refill Request Start: 09-27-2023 Telephone encounter Alpa Ram Work Phone: [facility] Comment on above: Post injection f/u c all Start: 09-20-2023 End: 09-20-2023 ambulatory ALPA RAM Facility:[facility] Start: 09-16-2023 Telephone encounter Angeli shoemaker MD Work Phone: Cardiology Comment on above: Patient Update Start: 09-13-2023 Telephone encounter Alpa Ram Work Phone: [facility] Comment on above: Preparations For Pro cedures (Pre injection instructions) Start: 09-06-2023 End: 09-06-2023 ambulatory Jevon Pantoja Facility:[facility] Start: 09-06-2023 End: 09-06-2023 Patient encounter procedure Scarlett Gaviria [facility] Start: 09-01-2023 Orders Only Kaylah Barron i, MD Work Phone: Cardiology Comment on above: Paroxysmal atrial fi brillation (HCC) (Primary Dx); Chronic diastolic congestive heart failure (HCC); PAF (paroxysmal atrial fibrillation) (HCC); Presence of Watchman left atrial appendage closure device Start: 08-29-2023 End: 08-29-2023 ambulatory Jessika Kirsten RT(R) Radiology Comment on above: Radiology XR Spinal stenosis of l umbar region with radiculopathy (Primary Dx) Start: 08-29-2023 End: 08-29-2023 Patient encounter procedure Jessika Avila RT(R) Radiology Comment on above: Spinal stenosis of l umbar region with radiculopathy (Primary Dx); Back pain of lumbosacral region with sciatica; Lumbar spondylosis Start: 08-29-2023 Telephone encounter Alpacasey Ram Work Phone: [facility] Comment on above: Prior Authorization Medication Start: 08-29-2023 End: 08-29-2023 Subsequent hospital visit by physician Xr [facility] Comment on above: Spinal stenosis of l umbar region with radiculopathy [M48.061, M54.16] Start: 08-24-2023 End: 08-24-2023 ambulatory Jevon Scarlett Facility:[facility] Start: 08-24-2023 End: 08-24-2023 Patient encounter procedure Jevon Scarlett [facility] Start: 08-23-2023 End: 08-23-2023 ambulatory HARIS SUTTON Not Available Start: 08-19-2023 End: 08-19-2023 ambulatory Jevon Pantoja [facility] [facility] Start: 08-19-2023 End: 08-19-2023 Patient encounter procedure Jevon Pantoja [facility] Start: 08-16-2023 End: 08-16-2023 ambulatory KONRAD AGUSTIN Not Available Start: 08-15-2023 End: 08-15-2023 ambulatory ODALYS ROSA Facility:[facility] Start: 08-15-2023 End: 08-15-2023 Patient encounter procedure Odalys Rosa MD Work Phone: Cardiology Comment on above: Paroxysmal atrial fi brillation (HCC) (Primary Dx) Start: 07-18-2023 End: 07-18-2023 ambulatory SCARLETT GAVIRIA Facility:[facility] Start: 07-18-2023 End: 07-18-2023 Patient encounter procedure Angeli Kimball MD Work Phone: Cardiology Comment on above: Persistent atrial fi brillation (HCC) (Primary Dx); Presence of Watchman left atrial appendage closure device; Obesity, Class I, BMI 30-34.9; Chronic diastolic congestive heart failure (HCC) Start: 06-24-2023 End: 06-24-2023 ambulatory Moffett Talal Monsemini Facility:[facility] Start: 06-24-2023 End: 06-24-2023 Patient encounter procedure [facility] Start: 06-22-2023 End: 06-22-2023 ambulatory SELF Facility:[facility] Start: 06-22-2023 End: 06-22-2023 Patient encounter procedure Alpa Ram DO Work Phone: Spine Medicine Comment on above: Bilateral lumbar rad iculopathy (Primary Dx); Spinal stenosis, lumbar region, without neurogenic claudication; Anterolisthesis of lumbar spine Start: 06-20-2023 End: 06-20-2023 ambulatory Yareli Esposito Facility:[facility] Start: 06-20-2023 End: 06-20-2023 ambulatory Scarlett Gaviria Work Phone: [facility] Work Phone: Start: 06-20-2023 End: 06-20-2023 Patient encounter procedure Scarlett Gaviria Work Phone: [facility] [place] Work Phone: Start: 06-20-2023 End: 06-20-2023 ambulatory Scarlett Gaviria Work Phone: [facility] Work Phone: Start: 06-20-2023 End: 06-20-2023 Patient encounter procedure Scarlett Gaviria Work Phone: [facility] Neurosurgery Work Phone: Start: 06-16-2023 End: 06-16-2023 [address] [facility] Facility:[facility] Start: 06-16-2023 End: 06-16-2023 Subsequent hospital visit by physician Injection [facility] Stro Work Phone: Nuclear Medicine Comment on above: Atypical chest pain [R07.89] Start: 06-15-2023 Telephone encounter Nurse Card [facility] Stro Work Phone: Cardiology Comment on above: Atypical chest pain (Primary Dx) Start: 06-14-2023 Bamboo flowsheet Haris Tamar Dolce DPM FACFAS Work Phone: [facility] Start: 06-14-2023 Bamboo flowsheet Haris Tamar Dolce DPM FACFAS Work Phone: [facility] Start: 06-14-2023 End: 06-14-2023 ambulatory HARIS SUTTON Not Available Start: 06-14-2023 End: 06-14-2023 Patient encounter procedure Haris Tamar Sutton DPM FACFAS Work Phone: [facility] Comment on above: Onychomycosis (Prima ry Dx); Pain in left toe(s); Pain in right toe(s) Start: 06-13-2023 End: 06-13-2023 ambulatory [facility] Facility:[facility] Start: 06-13-2023 ambulatory [facility] Facility :[facility] Start: 06-13-2023 End: 06-13-2023 Subsequent hospital visit by physician Injection [facility] Rej Work Phone: Nuclear Medicine Start: 06-07-2023 End: 06-07-2023 ambulatory SCARLETT GAVIRIA Facility:[facility] Start: 06-03-2023 Refill Ny workman APRN.CNP Work Phone: Cardiology Comment on above: Refill Request; Orde rs Start: 05-31-2023 End: 05-31-2023 ambulatory KAYLAH KEMP Facility:[facility] Start: 05-20-2023 End: 05-20-2023 ambulatory Scarlett Gaviria Facility:[facility] Start: 05-20-2023 End: 05-20-2023 Patient encounter procedure Scarlett Gaviria [facility] Start: 05-11-2023 End: 05-11-2023 ambulatory Scarlett Gaviria Facility:[facility] Start: 04-26-2023 End: 04-26-2023 ambulatory MICHAEL SIMMS Facility:[facility] Start: 02-02-2023 End: 02-02-2023 ambulatory Nghia Glenn ROBERSON Facility:[facility] Start: 02-02-2023 End: 02-02-2023 Patient encounter procedure Nghia Glenn ROBERSON [facility] Start: 01-28-2023 End: 01-28-2023 ambulatory Nghia Elizabeth ALLAN Facility:[facility] Start: 01-28-2023 End: 01-28-2023 Patient encounter procedure Nghia ROBERSON [facility] Start: 12-24-2022 End: 12-24-2022 ambulatory Jevonsamra Amayaleonard Facility:[facility] Start: 12-24-2022 End: 12-24-2022 Patient encounter procedure Jevon Smithnura [facility] Start: 11-13-2022 Refill Angeli Pool Work Phone: [...] Start: 09-03-2022 End: 09-03-2022 Patient encounter procedure Jevon Pantoja [facility] Start: 09-01-2022 Telephone encounter Odalys Rosa MD Work Phone: Cardiology Comment on above: Refill Request Start: 08-31-2022 Refill Kaylah Braron i, MD Work Phone: Cardiology Start: 08-19-2022 End: 08-19-2022 Patient encounter procedure Jevon Pantoja [facility] Start: 07-27-2022 End: 07-27-2022 Patient encounter procedure Irena COOK [facility] Start: 07-21-2022 End: 07-21-2022 Patient encounter procedure Jacque Mortondad [facility] Start: 07-16-2022 Telephone encounter Odalys Rosa MD Work Phone: Cardiology Comment on above: Refill Request (Eliceo syn) Start: 07-15-2022 End: 07-15-2022 Patient encounter procedure Florentino BOLAÑOS [facility] Start: 06-24-2022 End: 06-24-2022 Patient encounter procedure Scarlett Gaviria [facility] Start: 06-15-2022 End: 06-15-[address] [facility] Facility: Start: 06-10-2022 Orders Only Adilene Burgos nd TRIPE SCRAPER.FOAMITE MIXER Work Phone: Cardiology Comment on above: IRB WATCHAMA N FLX [employer] (WATCH RWE) PI: Dr. Marcos Bermudez (Primary Dx); AF (paroxysmal atrial fibrillation) (HCC) Start: 06-10-2022 Patient entered into trial Adilene Gerber TRIPE SCRAPERBenFOAMITE MIXER Work Phone: Cardiology Start: 05-30-2022 End: 05-30-[address] DAVID KING Facility:[facility] Start: 05-25-2022 Telephone encounter Kaylah Kemp MD Work Phone: Cardiology Comment on above: Patient Question Start: 05-19-2022 End: 05-19-2022 Nursing evaluation of patient and report Research Nurse Card Eps Main [facility] Comment on above: IRB WATCHAMA N FLX [employer] Evidence (WATCH [...] unspecified hyperlipidemia type Start: 05-07-2022 Refill Chika BRITON.FOAMITE MIXER, DNP Work Phone: Cardiology Comment on above: [...] End: 02-18-2022 Patient encounter procedure Jevon Pantoja [facility] Start: 02-08-2022 End: 02-08-2022 Patient encounter procedure Patricia Le [facility] Start: 02-02-2022 End: 02-02-2022 Patient encounter procedure Patricia Le [facility] Start: 01-26-2022 End: 01-26-2022 Patient encounter procedure Irena COOK [facility] Start: 01-24-2022 End: 01-24-2022 ambulatory PASCUAL GODINEZ Facility:[facility] Start: 01-19-2022 End: 01-19-2022 Patient encounter procedure Patricia Le [facility] Start: 01-18-2022 End: 01-18-2022 Patient encounter procedure Patricia Le [facility] Start: 01-10-2022 End: 01-10-2022 ambulatory MICHAEL CHAVEZ Facility:[facility] Start: 01-08-2022 Orders Only Kaylah Barron i, MD Work Phone: Cardiology Comment on above: Atrial fibrillation, unspecified type (HCC) (Primary Dx) Start: 01-08-2022 End: 01-08-2022 Patient encounter procedure Jevon Pantoja [facility] Start: 01-06-2022 End: 01-06-2022 Patient encounter procedure Odalys Rosa MD Work Phone: Cardiology Comment on above: AF (paroxysmal atria l fibrillation) (HCC) (Primary Dx) Start: 01-01-2022 End: 01-01-2022 Patient encounter procedure MOUSTAPHA MELVIN [facility] Start: 12-31-2021 Telephone encounter Odalys Rosa MD Work Phone: Cardiology Comment on above: Hospital Follow Up Start: 12-30-2021 End: 10-19-2022 Recurring Jevonsamra Pantoja [facility] Start: 12-25-2021 Telephone encounter Odalys Rosa MD Work Phone: Cardiology Comment on above: Received Outside Med ical Records Start: 12-24-2021 End: 12-24-2021 Patient encounter procedure Jevon Pantoja [facility] Start: 12-20-2021 End: 12-23-2021 Evaluation and management of inpatient DR MATTHEW ALEXANDRE Facility:[facility] Start: 12-01-2021 End: 12-01-2021 Patient encounter procedure Patricia Le [facility] Start: 11-05-2021 End: 11-05-2021 Patient encounter procedure Jevon Pantoja [facility] Start: 10-30-2021 End: 10-30-[address] STACEY BEACH Facility:[facility] Start: 10-20-2021 Refill Odalys Rosa Work Phone: Cardiology Comment on above: Refill Request Start: 10-15-2021 Refill Odalys welch MD Work Phone: [place] Comment on above: Refill Request ([place] olol) Start: 09-15-2021 End: 09-15-2021 Patient encounter procedure Irena Dejesus JOYCE [facility] Start: 08-14-2021 Telephone encounter Odalys Rosa MD Work Phone: Cardiology Comment on above: Holding of Eliquis f or EGD Start: 07-27-2021 End: 07-27-2021 Patient encounter procedure Florentino BOLAÑOS [facility] Start: 05-08-2021 End: 08-06-2021 Patient encounter procedure Haris Sutton [facility] Start: 10-11-2017 Ambulatory KB LAZO) [facility] Start: 03-17-2017 End: 04-01-2017 Ambulatory [facility] Start: 11-05-2016 End: 11-30-2016 Ambulatory [facility] Start: 11-04-2016 End: 11-30-2016 [facility] Procedures Date Procedure Procedure Detail Performing Clinician Start: 04-12-2024 Ecg routine ecg w/least 12 lds i&r only [facility] Provider Start: 02-16-2024 CRYOTHERAPY SKIN LESION Konrad Agustin MD Work Phone: Start: 11-17-2023 Echo transthorc r-t 2d w/wo m-mode rec f-up/lmtd Kaylah Kemp MD Work Phone: Start: 08-29-2023 Radex spine lumbosacral minimum 4 views Alpa Ram DO Work Phone: Start: 06-20-2023 X-ray of lumbar spine, six views including bending views Scarlett Gaviria Work Phone: Start: 06-16-2023 Myocardial spect multiple studies Jacqueline Tamayo APRN.CHA Work Phone: Start: 01-06-2022 Ecg routine ecg w/least 12 lds w/i&r [facility] Provider Start: 12-21-2021 Excision of Stomach, Pylorus, Via Natural or Artificial Opening Endoscopic, Diagnostic DR DAVID KING Start: 12-20-2021 Transfusion of Nonautologous Red Blood Cells into Peripheral Vein, Percutaneous Approach DR DAVID KING Start: 07-27-2021 Colonoscopy [employer] Start: 07-09-2021 Excision of bunion [employer] Start: 06-03-2021 Arthrocentesis aspir&/inj small jt/bursa w/o us Nghia ALLAN Start: 12-22-2020 Colonoscopy Odalys Rosa MD Work Phone: Start: 12-22-2020 Colsc flx w/rmvl of tumor polyp lesion snare tq [employer] Start: 10-20-2020 Epidural injection of cervical spine using fluoroscopic guidance [employer] Comment on above: 20% releif at most Start: 07-28-2020 Radiofrequency ablation of medial branch of lumbar nerve using fluoroscopic guidance [employer] Comment on above: 95% relief to present Start: 07-08-2020 Injection of facet joint using fluoroscopic guidance [employer] Comment on above: bilat L4/5+L5/S1 MBB- 100% relief x 18 h rs. Start: 06-10-2020 Injection of facet joint using fluoroscopic guidance [employer] Comment on above: Bilateral L4-S1- 99% relief x 72 hours Start: 09-27-2018 Transurethral insertion of prostatic urethral lift implant [employer] Start: 08-30-2018 Cystoscopy [employer] Start: 05-19-2017 Arthrodesis of foot [employer] Comment on above: 1. First metatarsophalangeal joint arthr odesis 2. Capsulotomy second metatarsophalangeal joint 3. Removal of spur distal phalanx right second digit 4. Application of below knee posterior splint Start: 03-30-2017 Decompression of median nerve Florentino Rao Comment on above: RIGHT CARPAL TUNNEL RELEASE Start: 07-15-2016 Left carpal tunnel release Florentino BOLAÑOS Start: 04-07-2016 EVLT RGSV, phleb. right leg Florentino BOLAÑOS Start: 01-19-2016 Radiofrequency denervation of spinal facet joint of cervical vertebra Florentino BOLAÑOS Comment on above: right C4-C7 Start: 08-06-2015 Prosthetic arthroplasty of shoulder Florentino BOLAÑOS Comment on above: left Start: 05-19-2015 Injection of facet joint using fluoroscopic guidance Florentino MORALES Comment on above: right C4-C6 Start: 04-04-2015 cervica medial branch block 10 Goodadrienne MORALES AM Comment on above: right C4-C6 Start: 07-03-2014 Transrectal biopsy of prostate using ultrasound guidance Florentino MORALES [employer] Start: 05-02-2012 skin lesion of left chest (melanoma) Florentino MORALES Start: 08-30-1994 Excision of lumbar intervertebral disc Florentino MORALES Comment on above: L5- S1 Appendectomy Goodadrienne MORALES Cardiac ablation usi ng fluoroscopy guidance [employer] Colonoscopy [facility] Comment on above: Polyps 2007, 2011 Colonoscopy Goodadrienne MORALES Esophagogastroduodenoscopy M adrienne MORALES Excision of basal cell carcinoma [facility] Comment on above: back left leg, tip of nose, side of nose Hammer toe operation Florentino MACK Herniated structure (morphologic abnormality) Florentino BOLAÑOS Comment on above: right inguinal Plication of left atrial appendage Irena COOK Radiofrequency ablat ion of medial branch of cervical nerve using fluoroscopic guidance [employer] Comment on above: C4,C5,C6 90 % relief sharp pain , but no w with dull, constant ache to R side neck Repair of musculoten dinous cuff of shoulder Goodadrienne BOLAÑOS Comment on above: bilateral x2 each side Tonsillectomy [facility] [employer] [employer] Plan of Treatment Date Care Activity Detail Author Start: 09-09-2030 Urine microalbumin profile DTaP,Tdap,Td Vaccine (3 - Td or Tdap) [facility] Start: 02-13-2027 Diabetes Screening Diabetes Screening [facility] Start: 10-10-2026 Diabetes Screening Diabetes Screening [facility] Start: 04-26-2026 Diabetes Screening Diabetes Screening [facility] Start: 05-12-2025 DIABETES SCREEN DIABETES SCREEN [facility] Start: 04-12-2025 BP Controlled (<130/80) BP Controlled (<130/80) [facility] in Start: 11-16-2024 BP Controlled (<130/80) BP Controlled (<130/80) Priest in Start: 08-28-2024 BP Controlled (<130/80) BP Controlled (<130/80) [facility] Start: 08-16-2024 End: 08-16-2024 Patient encounter procedure 08/16/2024 2:15 PM EDT Office Visit [facility] [address] [place] [address] Konrad Agustin MD [address] [place] [address] [facility] Start: 07-17-2024 End: 07-17-2024 Patient encounter procedure [facility] Comment on above: Follow up Start: 07-02-[address] SCREEN [facility] Start: 06-22-2024 BP Controlled (<130/80) BP Controlled (<130/80) [facility] Start: 06-19-2024 End: 06-19-2024 Patient encounter procedure 06/19/2024 11:10 AM EST Procedure Visit [facility] [address] [place] [address] Haris Sutton, DPM FACFAS [address] [place] [address] [facility] Start: 06-12-2024 End: 06-12-2024 Patient encounter procedure 06/12/2024 10:00 AM EST Office Visit Spine Medicine [address] [place] [phone] Alpa Ram, DO [address] [place] [address] f/u Spine Medicine Comment on above: f/u Start: 04-13-2024 End: 04-13-2024 Patient encounter procedure 04/13/2024 11:00 AM EST Office Visit Cardiology [address] [place] [address] ekg Cardiology Comment on above: ekg Start: 04-12-2024 End: 04-12-2024 Patient encounter procedure 04/12/2024 10:00 AM EST Office Visit Cardiology [address] [place] [address] [place] [address] [place] [address] return in about 6 months (around ) Cardiology Comment on above: return in about 6 months (around 2023) Start: 04-10-2024 End: 04-10-2024 Patient encounter procedure 04/10/2024 11:00 AM EST Procedure Visit [facility] [address] [place] [phone] Haris Sutton, DPM FACFAS [address] [place] [address] Arrived [facility] Comment on above: Arrived Start: 03-27-2024 End: 03-27-2024 Patient encounter procedure 03/27/2024 11:10 AM EST Procedure Visit [facility] [address] [facility] [place] [address] Haris Sutton, DPM FACFAS [address] [facility] [place] [address] [facility] Start: 03-07-[address] [facility] Start: 02-16-2024 End: 02-16-2024 Patient encounter procedure 02/16/2024 1:50 PM EDT Office Visit [facility] [address] [place] [address] Konrad Agustin MD [address] [place] [address] [facility] Start: 02-14-2024 End: 02-14-2024 Admission to same day surgery center 02/14/2024 12:28 PM EDT - 02/14/2024 1:17 PM EDT Surgery Ambulatory Surgery [address] [place] [address] Alpa Ram, DO [address] [place] [address] BLOCK MEDIAL BRANCH LUMBAR WITH C-ARM Ambulatory Surgery Comment on above: BLOCK MEDIAL BRANCH LUMBAR WITH C-ARM Start: 02-14-2024 End: 02-14-2024 Njx dx/ther agt pvrt facet jt lmbr/sac 1 level BLOCK MEDIAL BRANCH LUMBAR WITH C-ARM Lumbar spondylosis 02/14/2024 12:28 PM EDT [facility] Start: 02-14-2024 End: 02-14-2024 Njx [...] 02/09/2024 1:20 PM EDT Office Visit Cardiology [address] [place] [address] [place] [address] [place] [address] return in about 6 months (around ) Cardiology Comment on above: return in about 6 months (around 2023) Start: 01-31-2024 End: 01-31-2024 Patient encounter procedure [facility] Start: 01-17-2024 End: 01-17-2024 Patient encounter procedure 01/17/2024 11:20 AM EDT Procedure Visit [facility] [address] [place] [phone] Haris Sutton, DPM FACFAS [address] [place] [address] Arrived [facility] Comment on above: Arrived Start: 01-16-2024 End: 01-16-2024 [facility] Spine Medicine Comment on above: Ordering Provider Via Office or Virtual Visit: 2-4 weeks Start: 01-01-2024 Covid-19 Vaccine () Covid-19 Vaccine () [facility] Start: 01-01-2024 Covid-19 Vaccine () Covid-19 Vaccine () [facility] Start: 01-01-2024 Influenza vaccination Influenza Vaccine (#1) [facility] Start: 12-20-2023 End: 12-20-2023 Admission to same day surgery center Ambulatory Surgery Comment on above: INJECTION(S) STEROID TRANSFORAMINAL EPID URAL W/ IMAGING GUIDANCE LUMBAR Start: 12-20-2023 End: 12-20-2023 Njx anes&/strd w/img tfrml edrl lmbr/sac 1 lvl [facility] Start: 12-20-2023 Subsequent hospital visit by physician Ambulatory Surgery Comment on above: Spinal stenosis, lumbar region, without neurogenic claudication [M48.061] Start: 12-20-2023 End: 12-20-2023 Patient encounter procedure 12/20/2023 7:00 AM EDT Office Visit Pre Ad[facility] Testing [address] [facility] [place] [address] Leanna Pre Admission Testing Comment on above: Leanna Start: 11-17-2023 End: 11-17-2023 Patient encounter procedure 11/17/2023 4:45 PM EDT Office Visit Cardiology [address] [place] [address] Kaylah Kemp MD [address] [place] [address] Dx: PAF (paroxysmal atrial fibrillation), Gastrointestinal Cardiology Comment on above: Dx: PAF (paroxysmal atrial fibrillation) , Gastrointestinal Start: 11-17-2023 End: 11-17-2023 Patient encounter procedure Cardiology Comment on above: Dx: PAF (paroxysmal atrial fibrillation) , Gastrointestinal 1 YEAR F/U PER HVI O RDER Start: 11-17-2023 End: 11-17-2023 ambulatory 11/17/2023 1:30 PM EDT Results Only Cardiology [address] [place] [address] Dx: PAF (paroxysmal atrial fibrillation), Gastrointestinal Cardiology Comment on above: Dx: PAF (paroxysmal atrial fibrillation) , Gastrointestinal Start: 11-11-2023 End: 11-11-2023 Patient encounter procedure 11/11/2023 10:30 AM EDT Office Visit Spine Medicine [address] [place] [phone] Alpa Ram DO [address] [place] [address] 2-4 weeks Spine Medicine Comment on above: 2-4 weeks Start: 09-20-2023 End: 09-20-2023 Admission to same day surgery center 09/20/2023 12:41 PM EDT - 09/20/2023 1:30 PM EDT Surgery Ambulatory Surgery [address] [facility] [place] [address] Alpa Ram DO [address] [place] [address] INJECTION ANESTHETIC AGENT/STEROID TRANSFORAMINAL EPIDURAL W/ IMAGING GUIDANCE LUMBAR BILATERAL Ambulatory Surgery Comment on above: INJECTION ANESTHETIC AGENT/STEROID TRANS FORAMINAL EPIDURAL W/ IMAGING GUIDANCE LUMBAR BILATERAL Start: 09-20-2023 End: 09-20-2023 Njx anes&/strd w/img tfrml edrl lmbr/sac 1 lvl INJECTION ANESTHETIC AGENT/STEROID TRANSFORAMINAL EPIDURAL W/ IMAGING GUIDANCE LUMBAR BILATERAL 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athy 09/20/2023 12:41 PM EDT [facility] Start: 09-20-2023 Subsequent hospital visit by physician 09/20/2023 12:41 PM EDT Hospital Encounter Ambulatory Surgery [address] [facility] [place] [place] [address] Alpa Ram DO [address] [place] [address] 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athy [M48.061, M54.16] Ambulatory Surgery Comment on above: Spinal stenosis of lumbar region with ra diculopathy [M48.061, M54.16] Start: 09-20-2023 End: 09-20-2023 Admission to same day surgery center 09/20/2023 7:30 AM EDT - 09/20/2023 8:19 AM EDT Surgery Ambulatory Surgery [address] [facility] [place] [address] Alpa Ram DO [address] [place] [address] INJECTION ANESTHETIC AGENT/STEROID TRANSFORAMINAL EPIDURAL W/ IMAGING GUIDANCE LUMBAR BILATERAL Ambulatory Surgery Comment on above: INJECTION ANESTHETIC AGENT/STEROID TRANS FORAMINAL EPIDURAL W/ IMAGING GUIDANCE LUMBAR BILATERAL Start: 09-20-2023 End: 09-20-2023 Njx anes&/strd w/img tfrml edrl lmbr/sac 1 lvl INJECTION ANESTHETIC AGENT/STEROID TRANSFORAMINAL EPIDURAL W/ IMAGING GUIDANCE LUMBAR BILATERAL 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athy 09/20/2023 7:30 AM EDT [facility] Start: 09-20-2023 Subsequent hospital visit by physician 09/20/2023 7:30 AM EDT Hospital Encounter Ambulatory Surgery [address] [place] [address] Alpa Ram, DO [address] [place] [address] 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athy [M48.061, M54.16] Ambulatory Surgery Comment on above: Spinal stenosis of lumbar region with ra diculopathy [M48.061, M54.16] Start: 09-20-2023 End: 09-20-2023 Patient encounter procedure 09/20/2023 7:00 AM EDT Office Visit Pre Admission Testing [address] [place] [address] Leanna Pre Admission Testing Comment on above: Leanna Start: 08-23-2023 End: 08-23-2023 Patient encounter procedure 08/23/2023 11:50 AM EDT Procedure Visit [facility] [address] [place] [address] Haris Sutton, DPM FACFAS [address] [place] [address] [facility] Start: 08-16-2023 End: 08-16-2023 Patient encounter procedure 08/16/2023 1:15 PM EDT Office Visit [facility] [address] [place] [address] Konrad Agustin MD [address] [place] [address] [facility] Start: 07-28-2023 Covid-19 Vaccine ( season) Covid-19 Vaccine () [facility] Start: 06-20-2023 Patient referral [facility] Work Phone: Start: 06-15-2023 End: 07-14-2024 NM Heart Perfusion W stress and W radionuclide IV NM CARDIAC PERF STRESS/PHARM Radiology Routine Atypical chest pain ANDERSEN (dyspnea on exertion) Hyperlipidemia, unspecified hyperlipidemia type Expected: 06/15/2023, Expires: 07/14/2024 [facility] Work Phone: Comment on above: Expected: 06/15/2023, Expires: 5 Start: 06-03-2023 End: 09-02-2023 Lipid 1996 panel - Serum or Plasma LIPID PANEL BASIC Lab Routine Hyperlipidemia, unspecified hyperlipidemia type Expected: 06/03/2023, Expires: 09/02/2023 [facility] Work Phone: Comment on above: Expected: 06/03/2023, Expires: 4 Start: 05-02-2023 Advance Directive Discussion Advance Directive Discussion [facility] Start: 01-06-2023 BP CONTROLLED (<130/80) BP CONTROLLED (<130/80) [facility] Start: 12-31-2022 Influenza vaccination INFLUENZA (#1) [facility] Start: 07-08-2022 BP CONTROLLED (<130/80) BP CONTROLLED (<130/80) [facility] Start: 05-02-2022 ADVANCE DIRECTIVE DISCUSSION ADVANCE DIRECTIVE DISCUSSION [facility] Start: 04-19-2022 End: 04-18-2023 Basic metabolic 2000 panel - Serum or Plasma BASIC METABOLIC PNL Lab Routine PAF (paroxysmal atrial fibrillation) (HCC) Expected: 04/19/2022, Expires: 04/18/2023 [facility] Work Phone: Comment on above: Expected: 04/19/2022, Expires: 3 Start: 04-19-2022 End: 04-19-2023 CBC panel - Blood by Automated count CBC Lab Routine PAF (paroxysmal atrial fibrillation) (HCC) Expected: 04/19/2022, Expires: 04/19/2023 [facility] Work Phone: Comment on above: Expected: 04/19/2022, Expires: 3 Start: 04-19-2022 End: 08-18-2022 SARS-CoV-2 (COVID-19) RNA [Presence] in Respiratory specimen by BOAZ with probe detection INTERMEDIATE RAPID COVID Microbiology Routine PAF (paroxysmal atrial fibrillation) (HCC) Expected: 04/19/2022, Expires: 08/18/2022 [facility] Work Phone: Comment on above: Expected: 04/19/2022, Expires: 3 Start: 04-19-2022 End: 04-19-2023 TYPE AND SCREEN,30 DAY TYPE AND SCREEN,30 DAY Blood Bank Routine PAF (paroxysmal atrial fibrillation) ([facility]) Expected: 04/19/2022, Expires: 04/19/2023 [facility] Work Phone: Comment on above: Expected: 04/19/2022, Expires: 3 Start: 01-01-2022 End: 03-03-2022 Basic metabolic 2000 panel - Serum or Plasma BASIC METABOLIC PNL Lab Routine PAF (paroxysmal atrial fibrillation) (HCC) Expected: 01/01/2022, Expires: 03/03/2022 [facility] Work Phone: Comment on above: Expected: 01/01/2022, Expires: 2 Start: 01-01-2022 End: 03-03-2022 CBC panel - Blood by Automated count CBC Lab Routine PAF (paroxysmal atrial fibrillation) (HCC) Expected: 01/01/2022, Expires: 03/03/2022 [facility] Work Phone: Comment on above: Expected: 01/01/2022, Expires: 2 Start: 12-31-2021 Influenza vaccination INFLUENZA (#1) [facility] Start: 12-22-[address] [facility] Start: 12-22-2021 COLORECTAL CANCER SCREENING COLORECTAL CANCER SCREENING [facility] Start: 07-04-2021 COVID-19 VACCINE (4 - Booster for Pfizer series) COVID-19 VACCINE (4 - Booster for Pfizer series) [facility] Start: 05-02-2021 ADVANCE DIRECTIVE DISCUSSION ADVANCE DIRECTIVE DISCUSSION [facility] Start: 2011 PNEUMOVAX AGE 65 AND OVER WITH 5YR LOOKBACK (#1) PNEUMOVAX AGE 65 AND OVER WITH 5YR LOOKBACK (#1) [facility] Start: 01-28-1996 SHINGRIX VACCINE (1 of 2) SHINGRIX VACCINE (1 of 2) [facility] Start: 1991 COLOGUARD (FIT-DNA) COLOGUARD (FIT-DNA) [facility] Start: [address] [facility] Start: 1991 FECAL OCCULT BLOOD FECAL OCCULT BLOOD [facility] Start: [address] [facility] Start: 1965 SHINGRIX VACCINE (1 of 2) SHINGRIX VACCINE (1 of 2) [facility] Start: 1965 Urine microalbumin profile DTAP,TDAP,TD (1 - Tdap) [facility] Start: 01-28-1964 ANNUAL PCP TEAM CHRONIC DISEASE VISIT ANNUAL PCP TEAM CHRONIC DISEASE VISIT [facility] Start: 01-28-1964 Anxiety Screening Anxiety Screening [facility] Start: 01-28-1964 BP CONTROLLED (<130/80) BP CONTROLLED (<130/80) [facility] Start: 01-28-1964 HEPATITIS C SCREENING HEPATITIS C SCREENING [facility] Start: 01-28-1964 Hepatitis C screening Hepatitis C Screening [facility] Start: 01-28-1952 PNEUMOCOCCAL: 65+ (1 - PCV) PNEUMOCOCCAL: 65+ (1 - PCV) [facility] Start: 1946 Medicare Annual Wellness (AWV) Medicare Annual Wellness (AWV) [facility] End: 10-02-2024 Basic metabolic 2000 panel - Serum or Plasma BASIC METABOLIC PANEL Lab Routine Visit for monitoring Tikosyn therapy Every 3 months for 4 Occurrences starting 10/03/2023 until 10/02/2024 [facility] Work Phone: Comment on above: Every 3 months for 4 Occurrences startin g 10/03/2023 until 10/02/2024 DXA Skeletal system. axial Views for bone density [facility] ECG COMPLETE ECG COMPLETE ECG 01/06/2022 1:09 PM EDT [facility] End: 01-08-2023 ECG COMPLETE ECG COMPLETE ECG Routine Atrial fibrillation, unspecified type (HCC) 1 Occurrences starting 01/08/2022 until 01/08/2023 [facility] Work Phone: Comment on above: 1 Occurrences starting 01/08/2022 until 01/08/2023 End: 04-19-2023 ECG COMPLETE ECG COMPLETE ECG Routine PAF (paroxysmal atrial fibrillation) (HCC) 1 Occurrences starting 04/19/2022 until 04/19/2023 [facility] Work Phone: Comment on above: 1 Occurrences starting 04/19/2022 until 04/19/2023 End: 06-10-2023 ECG COMPLETE ECG COMPLETE ECG Routine IRB 21-1031 [employer] (WATCH RWE) PI: Dr. Marcos Bermudez AF (paroxysmal atrial fibrillation) (HCC) 1 Occurrences starting 06/10/2022 until 06/10/2023 [facility] Work Phone: Comment on above: 1 Occurrences starting 06/10/2022 until 06/10/2023 End: 08-31-2024 ECG COMPLETE ECG COMPLETE ECG Routine Paroxysmal atrial fibrillation (HCC) Chronic diastolic congestive heart failure (HCC) PAF (paroxysmal atrial fibrillation) (HCC) Presence of Watchman left atrial appendage closure device 1 Occurrences starting 09/01/2023 until 08/31/2024 [facility] Work Phone: Comment on above: 1 Occurrences starting 09/01/2023 until 08/31/2024 ECG COMPLETE [facility] Work Phone: Comment on above: Ordered: 04/12/2024 End: 04-12-2025 ECG COMPLETE ECG COMPLETE ECG Routine Paroxysmal atrial fibrillation (HCC) 1 Occurrences starting 04/12/2024 until 04/12/2025 [facility] Comment on above: 1 Occurrences starting 04/12/2024 until 04/12/2025 End: 04-23-2025 ECG COMPLETE ECG COMPLETE ECG Routine PAF (paroxysmal atrial fibrillation) (HCC) 1 Occurrences starting 04/23/2024 until 04/23/2025 [facility] Work Phone: Comment on above: 1 Occurrences starting 04/23/2024 until 04/23/2025 End: 04-19-2023 ECHO TRANSESOPHAGEAL ECHO TRANSESOPHAGEAL Cardiology Routine PAF (paroxysmal atrial fibrillation) (HCC) 1 Occurrences starting 04/19/2022 until 04/19/2023 [facility] Work Phone: Comment on above: 1 Occurrences starting 04/19/2022 until 04/19/2023 End: 06-10-2023 ECHO TRANSESOPHAGEAL ECHO TRANSESOPHAGEAL Cardiology Routine IRB 21-1033 [employer] (WATCH RWE) PI: Dr. Marcos Bermudez AF (paroxysmal atrial fibrillation) (HCC) 1 Occurrences starting 06/10/2022 until 06/10/2023 [facility] Work Phone: Comment on above: 1 Occurrences starting 06/10/2022 until 06/10/2023 ECHO TRANSESOPHAGEAL ECHO TRANSE SOPHAGEAL Cardiology Routine PAF (paroxysmal atrial fibrillation) (HCC) Ordered: 09/14/2022 [facility] Work Phone: Comment on above: Ordered: 09/14/2022 End: 04-19-2023 Echocardiography ECHO Cardiology Routine PAF (paroxysmal atrial fibrillation) (HCC) 1 Occurrences starting 04/19/2022 until 04/19/2023 [facility] Work Phone: Comment on above: 1 Occurrences starting 04/19/2022 until 04/19/2023 End: 10-02-2024 Magnesium [Mass/volume] in Serum or Plasma MAGNESIUM Lab Routine Visit for monitoring Tikosyn therapy Every 3 months for 4 Occurrences starting 10/03/2023 until 10/02/2024 [facility] Comment on above: Every 3 months for 4 Occurrences startin g 10/03/2023 until 10/02/2024 Njx anes&/strd w/img tfrml edrl lmbr/sac 1 lvl INJECTION(S) STEROID TRANSFORAMINAL EPIDURAL W/ IMAGING GUIDANCE LUMBAR Spinal stenosis, lumbar region, without neurogenic claudication Lumbar radiculopathy [facility] Njx dx/ther agt pvrt facet jt lmbr/sac 1 level BLOCK MEDIAL BRANCH LUMBAR WITH C-ARM Lumbar spondylosis [facility] Njx dx/ther agt pvrt facet jt lmbr/sac 2nd level BLOCK MEDIAL BRANCH LUMBAR EACH ADDITIONAL VERTEBRA 2 W/IMAGE GUIDANCE FLUORO OR CT Lumbar spondylosis [facility] End: 07-14-2024 NM Heart Perfusion W stress and W radionuclide IV NM CARDIAC PERF STRESS/PHARM Radiology Routine Atypical chest pain 1 Occurrences starting 06/15/2023 until 07/14/2024 [facility] Work Phone: Comment on above: 1 Occurrences starting 06/15/2023 until 07/14/2024 Patient referral [facility] Work Phone: SPINE INTERVENTION PROCEDURE SPINE INTERVENTION PROCEDURE Procedures Routine 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athy Ordered: 08/29/2023 [facility] Work Phone: Comment on above: Ordered: 08/29/2023 SPINE INTERVENTION PROCEDURE SPINE INTERVENTION PROCEDURE Procedures Routine 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athy Ordered: 11/11/2023 [facility] Work Phone: Comment on above: Ordered: 11/11/2023 SPINE INTERVENTION PROCEDURE SPINE INTERVENTION PROCEDURE Procedures Routine Lumbar spondylosis Ordered: 01/17/2024 [facility] Work Phone: Comment on above: Ordered: 01/17/2024 [facility] Immunizations Immunization Date Immunization Notes Care Provider Davis chew 03-08-2024 influenza virus vaccine, unspecified formulation Haris Sutton DPM FACFAS Work Phone: [facility] 01-13-2024 respiratory syncytia l virus (RSV) vaccine, bivalent (ABRYSVO) Alpa Ram DO Work Phone: [facility] 03-29-2023 influenza (HD-IIV4) vaccine, age 65+ yr, high dose, quadrivalent, PF (FLUZONE HIGH-DOSE) Alpa Ram DO Work Phone: [facility] 03-29-2023 influenza virus vaccine, unspecified formulation Moffett Monsepanchojuan [facility] 02-25-2022 influenza (HD-IIV4) vaccine, age 65+ yr, high dose, quadrivalent, PF (FLUZONE HIGH-DOSE) Alpa Ram DO Work Phone: [facility] 02-25-2022 influenza virus vaccine, unspecified formulation [employer] [facility] 02-25-2022 SARS-CoV-2 (COVID-19 ) [id number] [employer] [facility] 01-30-2022 influenza virus vaccine, unspecified formulation Jevon Pantoja [facility] 09-10-2021 COVID-19 vaccine, unspecified formulation Alpa Ram DO Work Phone: [facility] 09-10-2021 SARS-CoV-2 mRNA (qclzkdlwsuv-klvb-gtwai se) vaccine [employer] [facility] 03-06-2021 influenza (HD-IIV4) vaccine, age 65+ yr, high dose, quadrivalent, PF (FLUZONE HIGH-DOSE) Alpa Ram DO Work Phone: [facility] 03-06-2021 influenza virus vaccine, unspecified formulation [employer] [facility] 03-06-2021 SARS-CoV-2 (COVID-19 ) mRNA BNT-162b2 vax Good [facility] 03-02-2021 influenza nasal, unspecified formulation Alpa Ram DO Work Phone: [facility] 03-02-2021 influenza virus vaccine, unspecified formulation [facility] 02-08-2021 influenza nasal, unspecified formulation Alpa Ram DO Work Phone: [facility] 02-08-2021 influenza virus vaccine, unspecified formulation Good SAL[facility] 09-09-2020 diphtheria, tetanus toxoids and pertussis vaccine Alpa Ram DO Work Phone: [facility] 06-27-2020 SARS-CoV-2 (COVID-19 ) Ad26 vaccine, recombinant Good [facility] 06-03-2020 SARS-CoV-2 (COVID-19 ) Ad26 vaccine, recombinant Good [facility] 02-21-2020 influenza (HD-IIV4) vaccine, age 65+ yr, high dose, quadrivalent, PF (FLUZONE HIGH-DOSE) Alpa Ram DO Work Phone: [facility] 05-01-2019 zoster vaccine recombinant [facility] 02-20-2019 influenza nasal, unspecified formulation Alpa Ram DO Work Phone: [facility] 02-20-2019 influenza virus vaccine, unspecified formulation [facility] 01-30-2019 influenza nasal, unspecified formulation Alpa Ram DO Work Phone: [facility] 12-06-2018 zoster vaccine recombinant [facility] 03-08-2018 influenza, high dose seasonal, preservative-free Alpa Mendis DO Work Phone: [facility] 03-17-2017 influenza virus vaccine, unspecified formulation [facility] 03-17-2017 influenza, high dose seasonal, preservative-free Alpa Tobinis DO Work Phone: [facility] 01-30-2017 pneumococcal conjuga te vaccine, 13 valent [facility] 11-10-2015 hepatitis A and hepatitis B vaccine Good [facility] 10-06-2015 hepatitis A and hepatitis B vaccine Good [facility] 05-01-2015 tetanus toxoid, redu suresh diphtheria toxoid, and acellular pertussis vaccine, adsorbed [facility] 02-04-2015 influenza virus vaccine, unspecified formulation [facility] 02-04-2015 influenza, seasonal, injectable Alpa Ram DO Work Phone: [facility] 02-04-2015 pneumococcal polysaccharide vaccine, 23 valent [facility] 12-04-2009 haemophilus influenz ae type b conjugate and Hepatitis B vaccine Alpa Mendis DO Work Phone: [facility] 07-03-2009 haemophilus influenz ae type b conjugate and Hepatitis B vaccine Alpa Mendis DO Work Phone: [facility] 07-03-2009 novel [id number], preservative-free, injectable Alpa Tobinis DO Work Phone: [facility] NEGATED: Highlighted row has not occurred!01-06-2022 influenza virus vaccine, unspecified formulation Good [facility] Payers Date Payer Category Payer Self-pay [id number] 2023 Medicare (Managed Care) [employer] [id number] 2023 Medicare [id number] 2015 Unknown MMO MMO MEDICARE SUPPLEMENT [id number] 2015-Present [phone] [address] [place] [address] Indemnity [id number]. [id number] 2015 Unknown [id number] 1.13.159.2. [id number] 2010 Medicare MEDICARE MEDICAR E A AND B [id number] 2010-Present [phone] [address] [address] [place] [address] Medicare [id number]. [id number] 2010 Medicare [id number] 1.13.159.2. [id number] 1959 Medicare [id number] 1959 Unknown [id number] 1946 Unknown [id number] 2.16.840.1.654174.3.579.2. 593 1946 Unknown [id number] 2.16.840.1.451654.3.579.2. 593 1946 Unknown [id number] 2.16.840.1.622845.3.579.2. 593 1946 Unknown [id number] 2.16.840.1.407369.3.579.2. 593 1946 Unknown [id number] 2.16.840.1.091368.3.579.2. 593 1946 Unknown [id number] 2.16.840.1.054656.3.579.2. 593 1946 Unknown [id number] 2.16.840.1.402861.3.579.2. 727 1946 Unknown [id number] 2.16.840.1.206598.3.579.2. 727 1946 Unknown [id number] 2.16.840.1.261115.3.579.2. 72 1946 Unknown [id number] 2.16.840.1.297528.3.579.2. 727 1946 Unknown [id number] 2.16.840.1.781653.3.579.2. 727 1946 Unknown [id number] 2.16.840.1.015918.3.579.2. 727 1946 Unknown [id number] 2.16.840.1.740313.3.579.2. 727 1946 Unknown [id number] 2.16.840.1.322799.3.579.2. 727 1946 Unknown [id number] 2.16.840.1.258136.3.579.2. 727 1946 Unknown [id number] 2.16.840.1.405048.3.579.2. 72 1946 Unknown [id number] 2.16.840.1.323604.3.579.2. 72 1946 Unknown [id number] 2.16.840.1.868564.3.579.2. 1946 Unknown [id number] 2.16.840.1.949690.3.579.2. 72 1946 Unknown [id number] 2.16.840.1.389662.3.579.2. 1946 Unknown [id number] 2.16.840.1.018240.3.579.2. 1946 Unknown [id number] 2.16.840.1.447036.3.579.2. 1946 Unknown [id number] 2.16.840.1.721284.3.579.2. 72 1946 Unknown [id number] 2.16.840.1.573064.3.579.2. 1946 Unknown [id number] 2.16.840.1.000335.3.579.2. 72 1946 Unknown [id number] 2.16.840.1.467023.3.579.2. 125 1946 Unknown [id number] 2.16.840.1.193511.3.579.2. 125 1946 Unknown [id number] 2.16.840.1.626778.3.579.2. 125 1946 Unknown [id number] 2.16.840.1.250074.3.579.2. 125 1946 Unknown [id number] 2.16.840.1.552900.3.579.2. 125 1946 Unknown [id number] 2.16.840.1.257621.3.579.2. 1259 1946 Unknown [id number] 2.16.840.1.938714.3.579.2. 1259 1946 Unknown [id number] 2.16.840.1.516799.3.579.2. 1259 1946 Unknown [id number] 2.16.840.1.109659.3.579.2. 1259 1946 Unknown [id number] 2.16.840.1.351735.3.579.2. 1259 Unknown [id number] 2.16.840.1.577994.3.579.2. 531 Social History Date Type Detail Facility Start: 07-15-2021 End: 04-12-2024 Tobacco smoking status Ex-smoker (finding) [facility] Start: 02-27-2020 End: 09-14-2022 Sex Assigned At Male [facility] Start: 01-15-1963 End: 1986 History of tobacco use Current smoker [facility] Start: 01-15-1964 End: 1986 History of tobacco use Cigarette Smoker [facility] Start: 09-01-2011 End: 09-14-2022 Cigarettes smoked current (pack per day) - Reported 1.5 [facility] Start: 09-01-2011 End: 04-12-2024 Tobacco use and exposure Smokeless tobacco non-user [facility] Start: 09-10-2020 End: 04-12-2024 Alcohol intake Current drinker of alcohol (finding) [facility] Start: 09-01-2016 History SDOH Alcohol Comment has an occasional drink, previously drank 2-[address] [facility] Start: 02-27-2020 History SDOH Financial 5 [facility] Start: 02-27-2020 History SDOH Food Worry 1 [facility] Start: 02-27-2020 History SDOH Transport Med 2 [facility] Start: 02-27-[address] [facility] Start: 1945 Sex Assigned At Not on file [facility] Start: 1945 Sex Assigned At Male F [facility] Tobacco smoking status Never [facility] Start: 04-12-2022 Gender identity Identifies as male gender (finding) [facility] Start: 04-12-2022 Sexual orientation Heterosexual (valentina cordero) [facility] (I/We) worried whether (my/our) food would run out before (I/we) got money to buy more. Never true [facility] Start: 11-15-2022 Tobacco smoking status NHIS Tobacco [...] occasion? Never [facility] NEGATED: Highlighted rowStart: NINF History of tobacco use Passive smoker [facility] Medical Equipment Procedure Code Equipment Code Equipment Origin al Text Equipment Identifier Dates Cement Simplex P Tobramycin Bone Full Dose Radiopaque Preblend Sterile - [id number] Start: 08-06-2015 Comment on above: Description: Simplex P antibiotic bone cement with Tobramycin Cement Simplex P Tobramycin Bone Full Dose Radiopaque Preblend Sterile - [id number] Start: 09-08-2016 Baseplate 15mm Trabecular Metal Glenoid Reverse Sterile Shoulder - [id number] Start: 08-06-2015 Comment on above: Description: trabecu lar metal reverse shoulder system Sphere 36mm Trabecular Metal Polyethylene Glenoid Reverse Sterile Shoulder - [id number] Start: 08-06-2015 Comment on above: Description: Lucia trabecular metal reverse shoulder glenosphere Stem 14mm 3 Trabecular Metal Tivanium 130mm Humeral Reverse Sterile - [id number] Start: 08-06-2015 Sphere 36mm Trabecular Metal Polyethylene Glenoid Reverse Sterile Shoulder - [id number] Start: 09-08-2016 Baseplate 15mm Trabecular Metal Glenoid Reverse Sterile Shoulder - [id number] Start: 09-08-2016 Stem 14mm 3 Trabecular Metal Tivanium 130mm Humeral Reverse Sterile - [id number] Start: 09-08-2016 Restrictor Latit ude 8-15mm Cement Elbow - [id number] Start: 08-06-2015 Comment on above: Description: Cement restrictor Liner 36mm 7d Standard Offset Trabecular Metal Polyethylene 6+ Mm Shoulder - [id number] Start: 08-06-2015 Comment on above: Description: reverse shoulder poly liner Restrictor Latit ude 8-15mm Cement Elbow - [id number] Start: 09-08-2016 Liner 36mm 7d Standard Offset Trabecular Metal Polyethylene 6+ Mm Shoulder - [id number] Start: 09-08-2016 Screw Ncb Anatom ical Shoulder 4.5mm Protasul-64wf 36mm Bone Inverse Reverse - [id number] Start: 08-06-2015 Comment on above: Description: inverse -reverse screw Screw Ncb Anatom ical Shoulder 4.5mm Protasul-64wf 36mm Bone Inverse Reverse - [id number] Start: 08-06-2015 Comment on above: Description: inverse -reverse screw system Screw Ncb Anatom ical Shoulder 4.5mm Protasul-64wf 36mm Bone Inverse Reverse - [id number] Start: 09-08-2016 Screw Ncb Anatom ical Shoulder 4.5mm Protasul-64wf 42mm Bone Inverse Reverse - [id number] Start: 09-08-2016 Goals Date Patient Goal Desired Activity /State Personal health goal Functional Status Date Assessment Result Facility 02-12-2024 Functional Status N/A [facility] 11-01-2023 Functional Status N/A [facility] 06-24-2023 Functional Status N/A [facility] 02-02-2023 Functional Status N/A [facility] 07-27-2022 Functional Status N/A [facility] 07-15-2022 Functional Status N/A [facility] 01-26-2022 Functional Status N/A [facility] 01-06-2022 Functional Status N/A [facility] 12-01-2021 Functional Status N/A [facility] Clinical Notes 07-27-2021 to 04-23-2024 Telephone Encounter - Trixie Ely RN - 04/23/2024 2:56 PM ESTTelephone Encounter - Trixie Ely RN - 04/23/2024 2:56 PM ESTAddendum Note - Moustapha Melvin APRN.CNP - 04/23/2024 2:31 PM EST Note Date & Type Note Facility 04-23-2024 Telephone encounter Note Called to let patient know EKG order placed and he said he already went to PCP and had it done. He says he is in afib and did fax it over. He is going home to start his eliquis back up and asks if he will need to [facility] EKG located on fax scanned into chart. [facility] 04-23-2024 Miscellaneous Notes Called to let patient know EKG order placed and he said he already went to PCP and had it done. He says he is in afib and did fax it over. He is going home to start his eliquis back up and asks if he will need to reload [facility]. EKG located on fax scanned into chart. Addended by: MOUSTAPHA MELVIN on: 04/23/2024 02:31 PM Modules accepted: Orders EKG ordered Moustapha Melvin APRN.CNP Patient called, leaving a message on procedure space scheduler's voice mail. Feels he is in a fib, inquiring if he may be ordered an EKG locally at [place] or at a [facility] facility to confirm. Please call patient via his cell [phone]. documented in this encounter [facility] 04-23-2024 Note Addended by: MOUSTAPHA MELVIN on: 04/23/2024 02:31 PM Modules accepted: Orders [facility] 04-23-2024 Telephone encounter Note EKG ordered Moustapha Melvin APRN.FOAMITE MIXER [facility] 04-23-2024 Telephone encounter Note Patient called, leaving a message on procedure space scheduler's voice mail. Feels he is in a fib, inquiring if he may be ordered an EKG locally at [place] or at a [facility] facility to confirm. Please call patient via his cell [phone]. [facility] Work Phone: 04-13-2024 Telephone encounter Note He came back today for an EKG and the QTc was shorter at 489 ms. K+ and MG++ were normal. I'm not keen on restarting Tikosyn, even at a lower dose, because there's no apparent explanation for the prolongation. He was instructed to DC Tikosyn and we'll deal with AF if and when it recurs. [facility] 04-13-2024 Miscellaneous Notes He came back today for an EKG and the QTc was shorter at 489 ms. K+ and MG++ were normal. I'm not keen on restarting Tikosyn, even at a lower dose, because there's no apparent explanation for the prolongation. He was instructed to DC Tikosyn and we'll deal with AF if and when it recurs. documented in this encounter [facility] 04-12-2024 Note HNO ID: [id number] Author: ODALYS ROSA MD Service: ? Author Type: Physician Type: Progress Notes Filed: 04/12/2024 10:39 Note Text: xxx [facility] 04-12-2024 History of Present illness Narrative xxx documented in this encounter [facility] 04-12-2024 Note HNO ID: [id number] Author: ODALYS ROSA MD Service: Electrophysiology Author Type: Physician Type: Progress Notes Filed: 04/16/2024 17:36 Note Text: [facility] NOTE NAME: IRENA PERAZA CLINIC NO.: [id number] DATE OF SERVICE: 04/12/2024 ATTENDING PHYSICIAN: Odalys Rosa M.D. SUBJECTIVE: Mr. Peraza is a 79-year-old man with paroxysmal atrial fibrillation. He has done well, without tachy-palpitations, on Tikosyn. He is under considerable stress due to issues related to his family and his home. He has had no other symptoms or signs of recurrent atrial fibrillation. MEDICATIONS: Reviewed in EPIC. These include dofetilide 500 mcg twice daily. PHYSICAL EXAMINATION: General: He appears distraught emotionally. Vital Signs: Blood pressure 118/78, pulse rate 86 and regular. Examination otherwise unremarkable and unchanged. LABORATORY STUDIES: EKG, sinus rhythm, QT 448 milliseconds, QTc 536 milliseconds. I have checked this by visual inspection and I believe that the QT and QTc are even longer. He is on no new medications and about 2 months ago his creatinine, potassium, and magnesium were all normal. He has occasional unexplained diarrhea once every 6 to 8 weeks. PLAN: He will have repeat electrolytes and renal function. I asked him to hold Tikosyn for now and he will return tomorrow, in the afternoon for another EKG. DICTATED BY: Odalys Rosa M.D. MOE/PAOLA JOB# [id number] [facility] 04-10-2024 History of Present illness Narrative Images from the original note were not included. patient: Irena Peraza : 1945 PCP: Noms Provider MD Rizwana SUBJECTIVE This is a 79 y.o. male that presents today with a chief complaint of painful elongated nails digits 1 through 10. They cause marked limitation in ambulation due to pain and pressure from shoe gear. Allergies: No Known Allergies Past Medical History: Past Medical History: Diagnosis Date Acute idiopathic gout of left wrist 01/26/2023 Acute on chronic diastolic congestive heart failure ([facility]/HCC) 10/31/2015 Acute right-sided low back pain with right-sided sciatica 01/26/2023 Alcohol use 01/26/2023 Anemia 01/26/2023 Anemia due to blood loss 01/26/2023 Arthritis 01/26/2023 Back pain Back pain with right-sided sciatica 01/26/2023 Basal cell carcinoma right medial lower leg Biceps rupture, proximal 05/29/2015 BMI 30.0-30.9,adult 01/26/2023 BPH with urinary obstruction 01/26/2023 Brachial neuritis or radiculitis Carpal tunnel syndrome Cervical radiculopathy due to degenerative joint disease of spine 01/26/2023 Cervical spine pain 01/26/2023 Chronic obstructive lung disease (CMS/HCC) 01/26/2023 Colon polyps 01/26/2023 Contracture, left ankle 01/26/2023 COPD (chronic obstructive pulmonary disease) ([facility]) Deformity of metatarsal 01/26/2023 Degenerative cervical disc 01/26/2023 Degenerative disc disease, cervical Depression (CMS/HCC) 01/26/2023 Elevated PSA 01/26/2023 Enlarged prostate 01/26/2023 Erosion of intestine 01/26/2023 Flank pain 01/26/2023 Former smoker 01/26/2023 Gastroesophageal reflux disease 01/26/2023 Hammer toe 2000 Insomnia, unspecified Median neuropathy, right Melanoma (CMS/HCC) 08/2012 left chest; MM; breslows depth 0.64mm; excised by Dr. Angeles Neck pain Obesity, Class I, BMI 30-34.9 01/03/2018 Obstructive sleep apnea Osteoarthritis 08/06/2015 Pain in joint, upper arm Pain in limb Perianal wart 01/26/2023 Radiculopathy, lumbosacral region Restless legs syndrome (RLS) Rotator cuff syndrome 1992 Trigger finger Medications: Current Outpatient Medications: allopurinol (Zyloprim) 100 [...] mouth in the morning., Disp: , Rfl: dofetilide (Tikosyn) 500 MCG capsule, Take by mouth 2 (two) times a day., Disp: , Rfl: DULoxetine (Cymbalta) [address] capsule, Take 60 mg by mouth in the morning., Disp: , Rfl: fenofibrate (Triglide) 160 MG tablet, Take 160 mg by mouth in the morning., Disp: , Rfl: fluticasone (Flonase) 50 MCG/ACT nasal spray, instill 2 (TWO) sprays IN EACH NOSTRIL DAILY, Disp: , Rfl: Fluticasone Furoate-Vilanterol 100-25 MCG/ACT aerosol powder , INHALE 1 PUFF BY MOUTH DAILY, Disp: , Rfl: furosemide (Lasix) 20 MG tablet, Take 20 mg by mouth Daily, Disp: , Rfl: montelukast (Singulair) 10 MG tablet, Take 10 mg by mouth in the morning., Disp: , Rfl: omeprazole (PriLOSEC) [address] capsule, Take 40 mg by mouth in the morning., Disp: , Rfl: pregabalin (Lyrica) 50 MG capsule, Take 50 mg by mouth in the morning and 50 mg in the evening., Disp: , Rfl: rOPINIRole (Requip) 1 MG tablet, TAKE 1 TO 2 TABLETS BY MOUTH 1-3 HOURS BEFORE bedtime, Disp: , Rfl: tolterodine LA (Detrol LA) [...] subungual debris. They were painful to palpation [id number] on the right [id number] on the left. VASC: DP /PT were nonpalpable bilateral. Capillary refill time < 3 seconds Digits 1-5 bilateral NEURO: Brokaw Tonny 5.07 monofilament was intact B/L. Vibratory [...] 10. DAMIAN Degroot documented in this encounter [facility] 03-27-2024 Telephone encounter Note The following approved medication requests have been transmitted electronically. Requested Prescriptions Signed Prescriptions Disp Refills atorvastatin (LIPITOR) 40 mg tablet 90 tablet 0 Sig: Take 1 tablet by mouth once daily. Need appointment for future refills Authorizing Provider: MICHAEL SIMMS Ordering User: SYBIL HAIRSTON APRN.CNP [facility] Work Phone: 03-27-2024 Miscellaneous Notes The following approved medication requests have been transmitted electronically. Requested Prescriptions Signed Prescriptions Disp Refills atorvastatin (LIPITOR) 40 mg tablet 90 tablet 0 Sig: Take 1 tablet by mouth once daily. Need appointment for future refills Authorizing Provider: MICHAEL SIMMS Ordering User: SYBIL HAIRSTON APRN.CNP Patient has been identified by name and date of : Yes Pharmacy phoned to request the following prescription(s) If there are any questions regarding this prescription request, call on cell at: [phone] (home) [phone] (cell) RX INSTRUCTIONS: Patient aware RX will be sent to pharmacy. No need to notify patient. Date of last office visit: 04/26/23 Date of last [facility] visit: Visit date not found Date of future office visit: Not Scheduled Requested Prescriptions Pending Prescriptions Disp Refills atorvastatin (LIPITOR) 40 mg tablet 90 tablet 0 Sig: Take 1 tablet by mouth once daily. Need appointment for future refills Prescriptions are usually addressed within 24-48 business hours. If patient states they cannot wait 24-48 business hours, please document details. Last 2 Encounter Wt Readings: Date: Wt: 11/17/2023 97.5 kg (215 lb) 11/11/2023 97.7 kg (215 lb 6.2 oz) Last 2 Encounter BP Readings: Date: BP: 01/25/2024 129/73 11/26/2023 163/85 CMP: Glucose 79 02/14/2024 BUN 13 02/14/2024 Creatinine 1.03 02/14/2024 Sodium 141 02/14/2024 Potassium 4.3 02/14/2024 Chloride 100 02/14/2024 CO2 26 02/14/2024 Protein, Total 7.3 08/28/2020 Albumin 4.0 03/09/2021 Calcium 10.5 02/14/2024 Alkaline Phosphatase 63 08/28/2020 Bilirubin, Total 0.5 08/28/2020 AST 23 08/28/2020 ALT 19 08/28/2020 Cholesterol, Total (mg/dL) Date Value 06/07/2023 189 03/07/2019 193 HDL Cholesterol (mg/dL) Date Value 06/07/2023 42 03/07/2019 39 LDL Cholesterol (mg/dL) Date Value 06/07/2023 81 03/07/2019 104 Triglyceride (mg/dL) Date Value 06/07/2023 331 03/07/2019 252 Mily Smith RN Prescription Refill Information The patient has been identified by name and date of : Yes Caregiver verified no other encounters exist for this prescription request: Yes Caregiver confirmed with patient/requestor that no other refills are due, in the near future, with this provider at this time: Yes The last office visit in the department: Does the patient have a future office visit with this provider/department: [facility] Requested Prescriptions Pending Prescriptions Disp Refills atorvastatin (LIPITOR) 40 mg tablet 90 tablet 3 Sig: Take 1 tablet by mouth once daily. Idris Domingo March 27, 2024 11:49 AM documented in this encounter [facility] 03-27-2024 Telephone encounter Note Patient has been identified by name and date of : Yes Pharmacy phoned to request the following prescription(s) If there are any questions regarding this prescription request, call on cell at: [phone] (home) [phone] (cell) RX INSTRUCTIONS: Patient aware RX will be sent to pharmacy. No need to notify patient. Date of last office visit: 04/26/23 Date of last [facility] visit: Visit date not found Date of future office visit: Not Scheduled Requested Prescriptions Pending Prescriptions Disp Refills atorvastatin (LIPITOR) 40 mg tablet 90 tablet 0 Sig: Take 1 tablet by mouth once daily. Need appointment for future refills Prescriptions are usually addressed within 24-48 business hours. If patient states they cannot wait 24-48 business hours, please document details. Last 2 Encounter Wt Readings: Date: Wt: 11/17/2023 97.5 kg (215 lb) 11/11/2023 97.7 kg (215 lb 6.2 oz) Last 2 Encounter BP Readings: Date: BP: 01/25/2024 129/73 11/26/2023 163/85 CMP: Glucose 79 02/14/2024 BUN 13 02/14/2024 Creatinine 1.03 02/14/2024 Sodium 141 02/14/2024 Potassium 4.3 02/14/2024 Chloride 100 02/14/2024 CO2 26 02/14/2024 Protein, Total 7.3 08/28/2020 Albumin 4.0 03/09/2021 Calcium 10.5 02/14/2024 Alkaline Phosphatase 63 08/28/2020 Bilirubin, Total 0.5 08/28/2020 AST 23 08/28/2020 ALT 19 08/28/2020 Cholesterol, Total (mg/dL) Date Value 06/07/2023 189 03/07/2019 193 HDL Cholesterol (mg/dL) Date Value 06/07/2023 42 03/07/2019 39 LDL Cholesterol (mg/dL) Date Value 06/07/2023 81 03/07/2019 104 Triglyceride (mg/dL) Date Value 06/07/2023 331 03/07/[address] [facility] 03-27-2024 Telephone encounter Note Prescription Refill Information The patient has been identified by name and date of : Yes Caregiver verified no other encounters exist for this prescription request: Yes Caregiver confirmed with patient/requestor that no other refills are due, in the near future, with this provider at this time: Yes The last office visit in the department: Does the patient have a future office visit with this provider/department: [facility], Requested Prescriptions Pending Prescriptions Disp Refills atorvastatin (LIPITOR) 40 mg tablet 90 tablet 3 Sig: Take 1 tablet by mouth once daily. Idris Domingo March 27, 2024 11:[address] [facility] 02-16-2024 History of Present illness Narrative Skin Check Location: Patient requests a full body skin examination Dermatologic history: history of Actinic Keratosis, history of Basal Cell Carcinoma, history of Melanoma, history of atypical mole(s) Last visit: 08/16/2023 Melanoma History Location: left chest Date of Melanoma dx: 09/06/2012 Melanoma details: Malignant Melanoma Breslow's depth: 0.64 mm Additional testing: excised by MD Bart Established patient All pertinent medical history, medications, and allergies were reviewed. General Exam: alert, oriented to person, place, and time, normal affect, well appearing Unaccompanied Scalp, Examined , exam limited by hair Right leg Examined Head, Face Examined Left leg Examined Neck Examined Right foot Examined Chest Examined Left foot Examined Back Examined Buttocks Examined Abdomen Examined Digits,nails: Examined Right arm Examined Left arm Examined Lymphatics: Examined Hands Examined No cervical, no axillary lymphadenopathy 1. Seborrheic keratosis Stuck on verrucous, dunaway-brown papules and plaques. Patient was counseled regarding these benign growths. Removal is normally not necessary, but they may be removed if they are symptomatic or for cosmetic reasons. 2. Actinic keratosis (7) Left Buccal Cheek, Left Parotid Area (2), Right Buccal Cheek, Right Parotid Area, Right Temporal Scalp, Right Zygomatic Area Erythematous scaly papules Patient was counseled regarding these sun-induced growths that can develop into squamous cell carcinoma if left untreated. Discussed treatment with cryotherapy. It was emphasized that any treated lesions that fail to resolve should be re-evaluated. Cryotherapy performed today; see procedure note Diagnosis: Actinic keratosis Indication: Precancerous Location: see skin exam Consent: Verbal consent was obtained and risks were discussed, including, but not limited to risks of scarring, darker or captain of guards pigmentary changes, recurrence, incomplete removal and infection. Method: Liquid nitrogen was used to treat the lesion(s) with two 5-10 second freeze-thaw cycles. Number of lesions treated: 7 Post-procedure instructions: Instructions were given orally and in writing. The office will be contacted if the lesion fails to resolve despite treatment, or if a side effect develops such as abnormal crusting, scabbing, redness or tenderness Cryotherapy, skin lesion - Left Buccal Cheek, Left Parotid Area (2), Right Buccal Cheek, Right Parotid Area, Right Temporal Scalp, Right Zygomatic Area 3. Lentigines Scattered dunaway macules in sun-exposed areas. The patient was informed that lentigines are benign pigmented lesions that occur on sun-exposed and sun-damaged skin. No treatment is necessary. Recommended regular use of broad spectrum sunscreen SPF 30 or higher 4. Bacterial folliculitis Chest (Upper Torso, Anterior) Follicularly-based erythematous papules and pustules, mild today Discussed that folliculitis is a common condition in which the hair follicles become infected and can be symptomatic. Cleansers and moisturizer literature provided. 5. History of malignant melanoma of skin Left Chest No evidence of recurrence at melanoma scar. The patient was counseled that scars from excisional sites of melanoma should be monitored closely for recurrence. The patient was instructed to contact the office for any new, changing, or symptomatic moles. The patient was also instructed to contact the office for any new lesions that develop within or around the previous melanoma scar. Next Visit: 6 months, skin check documented in this encounter [facility] 02-15-2024 Note Patient ID: Irena Peraza Jr. is a 79 y.o. male. Steroid Injections on 02/15/2024 11:35 AM Medications: 1 mL lidocaine (PF) 10 mg/mL (1 %); 50 mg triamcinolone acetonide (Kenalog-10) 10 mg/mL [facility] 02-15-2024 Note Attestation signed by Olimpia Rios MD at 02/15/2024 9:38 PM By using the attestations below, the [...] be an additional personal documentation from me. Procedure Attestation Level of Attending Supervision for Procedure I was present for the entire procedure Orthopedic Surgery Subjective Follow-up and Pain of the Left Wrist 02/15/24 Patient returns for follow-up with history of advanced left wrist arthritis who presents with chief complaint of left wrist mass that has been present for approximately 6 months. Patient had an MRI done of the left wrist and is here for MRI results. Patient states that he was working with a [email or web address] this last on 02/09/2024 and afterwards he noticed a significant amount of left wrist swelling and pain. He states that it has improved since but is still quite painful. 01/26/24 Irena Rao Stu Torres is a 79 y.o. RHD with past medical history of [...] MSK: Examination of his left wrist revealed noticeable swelling compared with the contralateral side. There is a palpable ball mass evident at the volar radial aspect of the distal radius. This is nontender today. The mass is mobile with somewhat ill-defined borders. No discoloration or pulsations seen on exam. He was tender to the radiocarpal joint region as well as ulnar fovea especially with ulnar deviation of the wrist. Range of motion was limited. He was able make a complete fist. He is able to demonstrate 25 degrees extension and 20 degrees flexion today. Full pronosupination. Imaging: MRI left wrist from 02/13/2024 reviewed: Demonstrate significant osteoarthritic changes at the radiocarpal joints with subchondral cystic changes in both the radius and carpals. There is a full-thickness tear of the TFCC. Procedure Note Consent was obtained from the patient prior to beginning the procedure. The skin was prepped using prep: betadine, and a gauge: 25 gauge needle was then used to inject the left wrist radiocarpal joint with the medications listed below. The needle was removed and a clean bandage was applied. Patient tolerated the procedure well and there were no complications. 1mL 10mg/mL Kenalog with 1mL Lidocaine 1% Assessment/Plan Irena Peraza Jr. is a 79 y.o.male with history of advanced left wrist arthritis who presents with chief complaint of left wrist mass Discussed patient's clinical and MRI findings in detail and answered all questions. The MRI does correlate with the patient's views radiographic findings with significant radiocarpal arthritis and cystic changes. 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 We discussed the risk, benefits and alternatives to this in detail and answered all questions. After discussion patient demonstrated understanding and opted to proceed with injection today (more content not included)... [facility] 02-12-2024 Hospital Discharge instructions Patient Education 02/12/2024 13:31:21 Ankle Sprain Ankle Sprain An ankle sprain is a stretch or tear in a ligament in the ankle. Ligaments are tissues that connect bones to each other. The two most common types of ankle sprains are: Inversion sprain. This happens when the foot turns inward and the ankle rolls outward. It affects the ligament on the outside of the foot (lateral ligament). Eversion sprain. This happens when the foot turns outward and the ankle rolls inward. It affects the ligament on the inner side of the foot (medial ligament). What are the causes? An ankle sprain is often caused by rolling or twisting the ankle by accident. What increases the risk? You are more likely to get an ankle sprain if you play sports. What are the signs or symptoms? Symptoms of an ankle sprain include: Pain in your ankle. Swelling. Bruising. Bruises may form right after you sprain your ankle or 1 2 days later. Trouble standing or walking. This includes trouble turning or changing directions. How is this diagnosed? An ankle sprain is diagnosed with a physical exam. Your health care provider will press on parts of your foot and ankle and try to move them in certain ways. You may also have X-rays taken. These may be done to see how severe the sprain is and to check for broken bones. How is this treated? An ankle sprain may be treated with: A brace or splint. This is used to keep the ankle from moving until it heals. An elastic bandage (dressing). This is used to support the ankle. Crutches. Pain medicine. Surgery. This may be needed if the sprain is severe. Physical therapy. This may help to improve the range of motion in the ankle. Follow these instructions at home: If you have a removable brace or a splint: Wear the brace or splint as told by your provider. Remove it only as told by your provider. Check the skin around the brace or splint every day. Tell your provider about any concerns. Loosen the brace or splint if your toes tingle, become numb, or turn cold and blue. Keep the brace or splint clean. If the brace or splint is not waterproof: ?Do not let it get wet. ?Cover it with a watertight covering when you take a bath or a shower. If you have an elastic dressing: Take the dressing off to shower or bathe. If the dressing feels too tight, adjust it to make it more comfortable. Loosen the dressing if your foot tingles, becomes numb, or turns cold and blue. Managing pain, stiffness, and swelling If told, put ice on the affected area. ?If you have a removable brace or splint, remove it as told by your provider. ?Put ice in a plastic bag. ?Place a towel between your skin and the bag. ?Leave the ice on for 20 minutes, 2 3 times a day. ?Remove the ice if your skin turns bright red. This is very important. If you cannot feel pain, heat, or cold, you have a greater risk of damage to the area. If your skin turns bright red, remove the ice right away to prevent skin damage. The risk of damage is higher if you cannot feel pain, heat, or cold. Move your toes often to reduce stiffness and swelling. For 2 3 days, raise (elevate) your ankle above the level of your heart while you are sitting or lying down. General instructions Take [id number]-[id number] and prescription medicines only as told by your provider. Do not use any products that contain nicotine or tobacco. These products include cigarettes, chewing tobacco, and vaping devices, such as e-cigarettes. If you need help quitting, ask your provider. Rest your ankle. Do not use your ankle to support your body weight until your provider says that you can. Use crutches as told by your provider. Ask your provider when it is safe to drive if you have a brace or splint on your ankle. Contact a health care provider if: You have bruising or swelling that get worse all of a sudden. Your pain does not get better with medicine. Get help right away if: Your foot or toes become numb or blue. You have severe pain that gets worse. This information is not intended to replace advice given to you by your health care provider. Make sure you discuss any questions you have with your health care provider. Document Revised: 01/19/2023 Document Reviewed: 01/19/2023 [employer] Patient Education 2023 [employer] Follow Up Care 02/12/2024 10:47:33 With:Scarlett Gaviria Address: [address] [place] [address], [address] [place] [address]- Business (1) When:02/15/2024 13:05:50 [facility] 02-12-2024 Evaluation + Plan note Extrac samara from: Title:ED Note Author:Harry Wood PA-C te:02/12/24 Right ankle sprain (S93.401A : Sprain of unspecified ligament of right ankle, initial encounter) Right foot sprain (S93.601A: Unspecified sprain of right foot, initial encounter) Orders: acetaminophen, 975 mg = 3 tab(s), Tab, Oral, Once, Stop date 02/12/24 13:04:00 EDT, STAT, Start date 02/12/24 13:04:00 EDT, 02/12/24 13:04:00 EDT Air Cast XR Ankle 3+ Views Right XR Foot 3+ Views Right XR Tib/Fib Right 2 View Future Appointments Appointment Date:05/22/2024 01:45:00 PM Scheduled Provider:Nghia ROBERSON MD Location:[facility] Appointment Type:URO Office Visit Appointment Date:08/23/2024 02:40:00 PM Scheduled Provider:Jevon Pantoja DO [facility] Type:ONC Office Visit 30 (FT) Future Scheduled Tests Laboratory* CBC w/ Auto Diff 02/23/24 * CBC w/ Auto Diff 08/23/24 * CBC w/ Auto Diff 02/18/23 * CBC w/ Indices 04/21/23 * Comprehensive Metabolic Panel 02/23/24 * Comprehensive Metabolic Panel 08/23/24 * Comprehensive Metabolic Panel 02/18/23 * Ferritin 02/23/24 * Ferritin 08/23/24 * Ferritin 02/18/23 * Iron Level 02/23/24 * Iron Level 08/23/24 * Iron Level 02/18/23 * Iron Percent Saturation 02/23/24 * Iron Percent Saturation 08/23/24 * Iron Percent Saturation 02/18/23 * Transferrin 02/23/24 * Transferrin 08/23/24 * Transferrin 02/18/23 [facility] [id number] NoteED Patient Education Note Orthopedics Ankle Sprain An ankle sprain is a stretch or tear in a ligament in the ankle. Ligaments are tissues that connectbones to each other. The two most common types of ankle sprains are: ? Inversion sprain. This happens when the foot turns inward and the ankle rolls outward. It affectsthe ligament on the outside of the foot (lateral ligament). ? Eversion sprain. This happens when the foot turns outward and the ankle rolls inward. It affects the ligament on the inner side of the foot (medial ligament). What are the causes? An ankle sprain is often caused by rolling or twisting the ankle by accident. What increases the risk? You are more likely to get an ankle sprain if you play sports. What are the signs or symptoms? Symptoms of an ankle sprain include: ? Pain in your ankle. ? Swelling. ? Bruising. Bruises may form right after you sprain your ankle or 1?2 days later. ? Trouble standing or walking. This includes trouble turning or changing directions. How is this diagnosed? An ankle sprain is diagnosed with a physical exam. Your health care provider will press on parts ofyour foot and ankle and try to move them in certain ways. You may also have X-rays taken. These may be done to see how severe the sprain is and to check for broken bones. How is this treated? An ankle sprain may be treated with: ? A brace or splint. This is used to keep the ankle from moving until it heals. ? An elastic bandage (dressing). This is used to support the ankle. ? Crutches. ? Pain medicine. ? Surgery. This may be needed if the sprain is severe. ? Physical therapy. This may help to improve the range of motion in the ankle. Follow these instructions at home: If you have a removable brace or a splint: ? Wear the brace or splint as told by your provider. Remove it only as told by your provider. ? Check the skin around the brace or splint every day. Tell your provider about any concerns. ? Loosen the brace or splint if your toes tingle, become numb, or turn cold and blue. ? Keep the brace or splint clean. ? If the brace or splint is not waterproof: ? Do not let it get wet. ? Cover it with a watertight covering when you take a bath or a shower. If you have an elastic dressing: ? Take the dressing off to shower or bathe. ? If the dressing feels too tight, adjust it to make it more comfortable. ? Loosen the dressing if your foot tingles, becomes numb, or turns cold and blue. Managing pain, stiffness, and swelling ? If told, put ice on the affected area. ? If you have a removable brace or splint, remove it as told by your provider. ? Put ice in a plastic bag. ? Place a towel between your skin and the bag. ? Leave the ice on for 20 minutes, 2?3 times a day. ? Remove the ice if your skin turns bright red. This is very important. If you cannot feel pain, heat, or cold, you have a greater risk of damage to the area. ? If your skin turns bright red, remove the ice right away to prevent skin damage. The risk of damage is higher if you cannot feel pain, heat, or cold. ? Move your toes often to reduce stiffness and swelling. ? For 2?3 days, raise (elevate) your ankle above the level of your heart while you are sitting or lying down. General instructions ? Take pqmt-eal-rrgspay and prescription medicines only as told by your provider. ? Do not use any products that contain nicotine or tobacco. These products include cigarettes, chewing tobacco, and vaping devices, such as e-cigarettes. If you need help quitting, ask your provider. ? Rest your ankle. ? Do not use your ankle to support your body weight until your provider says that you can. Use crutches as told by your provider. ? Ask your provider when it is safe to drive if you have a brace or splint on your ankle. Contact a health care provider if: ? You have bruising or swelling that get worse all of a sudden. ? Your pain does not get better with medicine. Get help right away if: ? Your foot or toes become numb or blue. ? You have severe pain that gets worse. This information is not intended to replace advice given to you by your health care provider. Make sure you discuss any questions you have with your health care provider. Document Revised: 01/19/2023 Document Reviewed: 01/19/2023 [employer] Patient Education ? 2023 [place] [place] [employer] 01-26-2024 Note Attestation signed by Olimpia Rios [...] Follow-up of the Left Wrist Irena Peraza JrBen is a 78 y.o. RHD with past [...] Vaughn Miranda MD Orthopedic Surgery, PGY-3 Pager: [phone] 01/26/24 11:35 AM By using the attestations [...] may be an additional personal documentation from me.[facility]09-17-2024 History of Present illness Narrative* Haris Sutton DPM FACFAS - 01/17/2024 11:20 AM EDT Images from the original note were not included. patient: Irena Peraza : 1945 PCP: Noms Osmar Wagoner MD SUBJECTIVE This is a 78 y.o. male that presents today with a chief complaint of painful elongated nails digits1 through 10. They cause marked limitation in ambulation due to pain and pressure from shoe gear. Patient has a 2nd chief complaint red hot swollen right 2nd metatarsophalangeal joint he did see his primary care physician placed him on Keflex 500 mg t.I.d.. The areas painful in red and warm does have a history of gout. He did have radiographs performed which showed no fractures or dislocations noted. Allergies: No Known Allergies Past Medical History: Past Medical History: Diagnosis Date Acute idiopathic gout of left wrist 01/26/2023 Acute on chronic diastolic congestive heart failure ([facility]) 10/31/2015 Acute right-sided low back pain with [...] spine pain 01/26/2023 Chronic obstructive lung disease ([facility]) 01/26/2023 Colon polyps 01/26/2023 Contracture, left ankle 01/26/2023 COPD (chronic obstructive pulmonary disease) ([facility]) Deformity of metatarsal 01/26/2023 Degenerative cervical disc 01/26/2023 Depression ([facility]) 01/26/2023 Elevated PSA 01/26/2023 Enlarged prostate 01/26/2023 Erosion of intestine 01/26/2023 Flank pain 01/26/2023 Former smoker 01/26/2023 Gastroesophageal reflux disease 01/26/2023 Hammer toe 2001 Melanoma ([facility]) 08/2012 left chest; MM; breslows depth 0.64mm; excised by Dr. Angeles Obesity, Class I, BMI 30-34.9 01/03/2018 Osteoarthritis 08/06/2015 Perianal wart 01/26/2023 Rotator cuff syndrome 1993 Trigger finger Medications: Current Outpatient Medications: allopurinol (Zyloprim) 100 [...] mouth in the morning., Disp: , Rfl: dofetilide (Tikosyn) 500 MCG capsule, Take by mouth 2 (two) times a day., Disp: , Rfl: DULoxetine (Cymbalta) [address] capsule, Take 60 mg by mouth in the morning., Disp: , Rfl: fenofibrate (Triglide) 160 MG tablet, Take 160 mg by mouth in the morning., Disp: , Rfl: fluticasone (Flonase) 50 MCG/ACT nasal spray, instill 2 (TWO) sprays IN EACH NOSTRIL DAILY, Disp: ,Rfl: Fluticasone Furoate-Vilanterol 100-25 MCG/ACT aerosol powder , INHALE 1 PUFF BY MOUTH DAILY, Disp: , Rfl: furosemide (Lasix) 20 MG tablet, Take 20 mg by mouth Daily, Disp: , Rfl: methylPREDNISolone (Medrol Dospak) 4 MG tablets, Take 1 tablet (4 mg) by mouth 1 (one) time for 1 dose Follow schedule on package instructions, Disp: 1 each, Rfl: 0 montelukast (Singulair) 10 MG tablet, Take 10 mg by mouth in the morning., Disp: , Rfl: omeprazole (PriLOSEC) [address] capsule, Take 40 mg by mouth in the morning., Disp: , Rfl: pregabalin (Lyrica) 50 MG capsule, Take 50 mg by mouth in the morning and 50 mg in the evening., Disp: , Rfl: rOPINIRole (Requip) 1 MG tablet, TAKE 1 TO 2 TABLETS BY MOUTH 1-3 HOURS BEFORE bedtime, Disp: , Rfl: tolterodine LA (Detrol LA) [...] clean and dry. No ulcerations were noted. The 2nd MPJ right is red warm and swollen painful to light touch no portals of entry noted appears to be acute gout Nails 1 through 10 were thickened elongated yellow and crumbly with subungual debris. They were painful to palpation 55164 on the right 73105 on the left. VASC: DP /PT were nonpalpable bilateral. Capillary refill time < 3 seconds Digits 1-5 bilateral NEURO: Brokaw Tonny 5.07 monofilament was intact B/L. Vibratory sensation was intact B/L Musculoskeletal: Muscle strength was +5 over 5 all intrinsic and extrinsic muscles tested. Radiographs: AP/MO/LAT: reviewed the radiographs from the hospital no fracture dislocations noted. Diagnostic ultrasound: DIAGNOSTIC ULTRASOUND 12 MEGAHERTZ LINEAR PROBE REVEALED: hypoechoic capsulitis about the right 2nd metatarsophalangeal joint secondary to acute gouty attack ASSESSMENT 1. Acute idiopathic gout involving toe of right foot 2. Other enthesopathy of right foot and ankle 3. Onychomycosis 4. Pain in left foot 5. Pain in left toe(s) 6. Pain in right toe(s) PLAN The patient was educated on proper foot care as well as the etiology of onychomycosis. I educated the patient on proper shoe gear as well. Today the nails were debrided both in length and thickness 1through 10. Educated the patient on acute gout. Educated him on his radiographic findings show no fr acture dislocations recommended a cortisone injection to the right 2nd metatarsophalangeal joint capsule. The patient was injected with 1 cc of 2% lidocaine plain and 1 cc of Kenalog 10 the ultrasonic guidance. A 12 megahertz linear probe was used for the injection in order to ensure exact placement and to avoid injection into underlying subcutaneous tissue. Started the patient on a Medrol Dosepak I discussed diet control measures with the patient in great detail follow up with me in 2 weeks for reassessment. DAMIAN Degroot documented in this encounterPemiscot Memorial Health [id number] NoteHNO ID: [id number] Author: ALPA RAM, DO Service: ? Author Type: Physician Type: Progress Notes Filed: 01/17/2024 17:27 Note Text: [facility] Spine Health - Medical Spine Established Patient [...] Duration Units: Minutes Frequency: Intermittent Intervention/Comfort measure: Medication;Relaxation;Cold;Massage;Positioning Comments: coms and goes Pain Radiation: As above Aggravating Factors: Standing, leaning forward Transfers Alleviating Factors: Stretching Sitting Child's pose Pain Ratio: midline lumbosacral back Current Treatment: Medications Tylenol 650mg 2 pills PRN Cymbalta 60mg Therapies PT HEP 3 times per week PT: [facility], Rachell Gilliam PT, 06/28-08/26/23, [...] prone can be pro (more content not included)...[facility]09-16-2024 History of Present illness Narrative* Alpa Ram, DO - 01/16/2024 4:27 PM EDT Images from the original note were not included. [facility] [place] [facility] for Spine Health - Medical Spine Established Patient DISTANCE HEALTH VISIT This Team Access Model visit is a virtual encounter. It required patient- provider interaction for the medical decision making as documented below. I have communicated my name and active licensure. The patient's identity and physical location wereverified at the time of this visit. Irena [...] L5-S1 discectomy in . Pain fluctuates on andoff for a long time. Recently says his pain is now in the low back and buttock, some along the sacral region as well, worse with standing. Worst pain is midline lumbosacral region. Reports tingling and pain down the left> right leg, down the posterior thigh and leg, all the way to the foot. Denies weakness. Denies bowel/bladder incontinence or saddle anesthesia. The pain is currently 3/10. The pain can get to 8/10 at the highest. 08/29/23: Patient has attended PT with little relief. With PT he has been able to find positions to bring thepain down, but with movement or certain positions he continues to have pain. Taking Gabapentin with some benefit, but causes dry mouth. He continues to have pain in the lumbosacral back midline, like a knife. He gets radiating pain andnumbness down the LLE posteriorly to the foot. Significant numbness left foot diffusely when takinga shower. Less numbness in right foot. Sometimes [...] lasts 5-30 seconds. Gets this much less oftenin the RLE. This radiating type pain is less frequent and less severe since the injections, it was 7-10/10 prior and is now 2-3/10 typically, occasionally up to 5/10. Pain is not as bothersome in thebuttocks now. Gets numbness in the left foot [...] but feels like he chooses to take napsand avoid his tasks too often. PAIN EVALUATION 01/16/2024 1307 Pain Level: 5 Pain Location: Back-Lower Description: Numbness;Raw;Sharp;Tingling Duration Amount of Time: 3 Duration Units: Minutes Frequency: Intermittent Intervention/Comfort measure: Medication;Relaxation;Cold;Massage;Positioning Comments: coms and goes Pain Radiation: As above Aggravating Factors: Standing, leaning forward Transfers Alleviating Factors: Stretching Sitting Child's pose Pain Ratio: midline lumbosacral back Current Treatment: Medications Tylenol 650mg 2 pills PRN Cymbalta 60mg Therapies PT HEP 3 times per week PT: [facility], Rachell Gilliam PT, 06/28-08/26/23, 8 visits, dischargedby therapist due to no progress. PT reports [...] maybe 5 years ago at [facility] -4-5 years ago he recalls having lumbar spine injections Prior spine surgery: L5-S1 discectomy in Previously treated by: -Recently seen by PA working with Spine Surgeon Dr. Al Wiley in [place] and was planning water PT. -Spine Medicine [...] CARDIOVERSION 11/14/15 CATHETER, ABLATION A-Fib, 2003 at [facility] HERNIA REPAIR HX 05/2011 left inguinal PAST [...] ACTIVE PROBLEM LIST Paf (Paroxysmal Atrial Fibrillation) ([facility]) Former Smoker Obstructive Lung Disease ([facility]) Hyperlipemia Pud (Peptic Ulcer Disease) Gerd (Gastroesophageal Reflux Disease) Carpal Tunnel Syndrome Hx of Neck Disorder Rotator Cuff Tear Arthritis Depression Alcohol Use Lprd (Laryngopharyngeal Reflux Disease) Chronic Throat Clearing Biceps Rupture, Proximal Contracture of Shoulder Rotator Cuff Tear Arthropathy Complete Tear of Left Rotator Cuff Melanoma ([facility]) Htn (Hypertension), Benign Cervical Spine Pain Osteoarthritis [...] LAD CARDIOVERSION 11/14/15 CATHETER, ABLATION A-2003 at [facility] HERNIA REPAIR HX 05/2011 left inguinal PAST [...] now then TAKE 1 CAPSULE BY MOUTH EVERY6 HOURS UNTIL GONE ketoconazole (NIZORAL) 2 % [...] (FLONASE) 50 mcg/actuation nasal spray Use 1 [place] in each nostril once daily. coenzyme Q10 100 mg cap Take 100 mg by mouth once daily. albuterol HFA (PROAIR HFA) 90 mcg/actuation inhaler Inhale 2 Puffs as instructed every 6 hours as needed. Swojgtstwrk-Hxhvlhgip-Dnb C-Mn 500-400 mg cap Take 1 capsule [...] lumbar spine with and without contrast, [place]: The spine is visualized and T11-12 through [...] spinal stenosis and moderate to marked neuroforaminal n arrowing. T12-L1: Mild hypertrophic facet and ligamentum flavum [...] of L3-4, L4-5, and L5-S1. Has not improvedwith PT, HEP. Unable to tolerate Gabapentin and [...] interventional options - patient prefers to avoid thisfor now. Total Time Spent: >20 minutes SIGNATURE: Alpa Ram DO PATIENT NAME: Irena Peraza DATE: January 16, 2024 TIME: 3:15 PM documented in this encounterSt. [facility] Telephone encounter Note * Telephone Encounter - Tremaine Joseph RN - 12/30/2023 9:35 AM EDT Tried to reach patient for post-injection phone call [phone]. Left office number for patient to call back. NTN Buzztimehart message/questionairre sent regarding post-injection. Tremaine Joseph RN [facility]08-30-2024 Miscellaneous Notes* Telephone Encounter - Tremaine Joseph RN - 12/30/2023 9:35 AM EDT Tried to reach patient for post-injection phone call [phone]. Left office number for patient to call back. NTN Buzztimehart message/questionairre sent regarding post-injection. Tremaine Joseph RN documented in this encounterSt. [facility] Telephone encounter Note * Telephone Encounter - Boubacar Young LPN - 12/15/2023 9:11 AM EDT Attempted to reach patient via telephone for pre-procedure instructions regarding procedure with Dr. Ram on 12/20/2023 at contact number [phone], patient unable to talk on phone at this time. Left office number on voicemail. NTN [employer] message sent with pre-procedure guidelines for injection. [facility]-15-2024 Miscellaneous Notes* Telephone Encounter - Boubacar Young LPN - 12/15/2023 9:11 AM EDT Attempted to reach patient via telephone for pre-procedure instructions regarding procedure with Dr. Ram on 12/20/2023 at contact number [phone], patient unable to talk on phone at this time. Left office number on voicemail. [place] message sent with pre-procedure guidelines for injection. documented in this encounterSt. [facility] History of Present illness Narrative* Kaylah Kemp MD - 11/17/2023 4:45 PM EDT Images from the original note were not included. [facility] [place] [facility] Department of Cardiovascular Medicine SECTION OF CARDIAC PACING and ELECTROPHYSIOLOGY OUTPATIENT VISIT DATE November 17, 2023 OUTPATIENT VISIT TYPE ESTABLISHED PRIMARY CARE PHYSICIAN: Scarlett Gaviria NP [address] [place] [phone] CHIEF COMPLAINT: AF s/p Watchman HISTORY OF PRESENT ILLNESS/ NURSING INTAKE HISTORY: Mr. Peraza is a 78 year old male who presents today for follow-up visit for atrial fibrillation, s/p Watchman 05/19/22. He has a history of persistent atrial fibrillation on dofetilide ([facility] 06/2021), GI bleed, CAD, GERD,HTN, HLD. He is s/p Watchman implantation with [...] that time revealed well-seated Watchman without leak. Hecontinues on dofetilide and aspirin. YOGESH today shows no kathleen-device leak. He reports doing well. He denies chest pain, palpitations, SOB, lightheadedness or syncope. He reports his last transfusion was about one month ago, denies any signs of bleeding. He continuesto take aspirin. CHADS2-Vasc Score Breakdown 5 Total [...] LAD CARDIOVERSION 11/14/15 CATHETER, ABLATION A-2003 at [facility] HERNIA REPAIR HX 05/2011 left inguinal PAST [...] now then TAKE 1 CAPSULE BY MOUTH EVERY6 HOURS UNTIL GONE ketoconazole (NIZORAL) 2 % [...] (FLONASE) 50 mcg/actuation nasal spray Use 1 [place] in each nostril once daily. coenzyme Q10 100 mg cap Take 100 mg by mouth once daily. albuterol HFA (PROAIR HFA) 90 mcg/actuation inhaler Inhale 2 Puffs as instructed every 6 hours as needed. Chgeyncnyyn-Vklaqaria-Yrx C-Mn 500-400 mg cap Take 1 capsule by mouth twice daily. Rosa Elena Joshi RN I have seen and evaluated the patient and confirmed the findings of the Physician Inventory And Pricing Associate/Nurse Practitioner or fellow/resident above, with the addition [...] history of persistent atrial fibrillation on dofetilide ([facility] 06/2021), GI bleed, CAD, GERD,HTN, HLD. He is s/p Watchman implantation with [...] that time revealed well-seated Watchman without leak. Hecontinues on dofetilide and aspirin. YOGESH today shows no kathleen-device leak. He reports doing well. He denies chest pain, palpitations, SOB, lightheadedness or syncope. He reports his last transfusion was about one month ago, denies any signs of bleeding. He continuesto take aspirin. CHADS2-Vasc Score Breakdown Continues to [...] INFORMATION: Kaylah Kemp MD documented in this encounterSt. Mary'[facility]24 NoteHNO ID: [id number] Author: KAYLAH KEMP MD Service: ? Author Type: Physician Type: Progress Notes Filed: 11/17/2023 16:59 Note Text: [facility] [place] [facility] Department of Cardiovascular Medicine SECTION OF CARDIAC PACING and ELECTROPHYSIOLOGY OUTPATIENT VISIT DATE November 17, 2023 OUTPATIENT VISIT TYPE ESTABLISHED PRIMARY CARE PHYSICIAN: Scarlett Gaviria NP [address] [place] [address] [place] [phone] CHIEF COMPLAINT: AF s/p Watchman HISTORY OF PRESENT ILLNESS/ NURSING INTAKE HISTORY: Mr. Peraza is a 78 year old male who presents today for follow-up visit for atrial fibrillation, s/p Watchman 05/19/22. He has a history of persistent atrial fibrillation on dofetilide ([facility] 06/2021), GI bleed, CAD, GERD, HTN, HLD. [...] CARDIOVERSION 11/14/15 CATHETER, ABLATION A-Fib, 2003 at [facility] HERNIA REPAIR HX 05/2011 left inguinal PAST [...] ketoconazole (NIZORAL) 2 % (more content not included)...[place] [id number] Nurse Note* Barb Avila RN - 11/17/2023 1:55 PM EDT AMBULATORY PATIENT EDUCATION TOPIC: SURVIVAL SKILLS: YOGESH [...] FAMILY RESPONSE: Verbalizes understanding of: POST-PROCEDURE INSTRUCTIONS-Correct actionsto take to reduce post procedure complications PRE-PROCEDURE INSTRUCTIONS-Correct action to take to follow pre-procedure instructions FOLLOW-UP PLAN: Complete - No need for follow-up SUPPLEMENTAL MATERIAL: Post op discharge instructions Post YOGESH instructions given REFERRAL (RECOMMENDATION): None Electronically Signed By Barb Avila RN In Department: CARDIOLOGY [facility]07-18-2024 Nurse Note* Barb Avila RN - 11/17/2023 1:55 PM EDT AMBULATORY PATIENT EDUCATION TOPIC: SURVIVAL SKILLS: YOGESH [...] FAMILY RESPONSE: Verbalizes understanding of: POST-PROCEDURE INSTRUCTIONS-Correct actionsto take to reduce post procedure complications PRE-PROCEDURE INSTRUCTIONS-Correct action to take to follow pre-procedure instructions FOLLOW-UP PLAN: Complete - No need for follow-up SUPPLEMENTAL MATERIAL: Post op discharge instructions Post YOGESH instructions given REFERRAL (RECOMMENDATION): None Electronically Signed By Barb Avila RN In Department: CARDIOLOGY documented in this encounterSt. Mary'[facility]24 NoteHNO ID: [id number] Author: ALPA RAM, DO Service: ? Author Type: Physician Type: Progress Notes Filed: 12/01/2023 12:51 Note Text: [facility] [place] [facility] [place] for [facility] Health - Medical Spine Established [...] HEP 3 times per week PT: [facility], Rachell Gilliam PT, 06/28-08/26/23, [...] maybe 5 years ago at [facility] -4-5 years ago he recalls having lumbar spine injections Prior spine surgery: L5-S1 discectomy in Previously treated by: -Recently seen by PA working with Spine Surgeon Dr. Al Wiley in [place] and was planning water PT. -Spine Medicine Dr. Bellamy. 2019 for cervical spine. Has had RFA locally (more content not included)...[facility]07-12-2024 History of Present illness Narrative* Alpa Ram Jessica, DO - 11/11/2023 11:05 AM EDT Images from the original note were not included. [facility] [place] [facility] [place] for [facility] Health - Medical Spine Established [...] lasts 5-30 seconds. Gets this much less oftenin the RLE. This radiating type pain is less frequent and less severe since the injections, it was 7-10/10 prior and is now 2-3/10 typically, occasionally up to 5/10. Pain is not as bothersome in thebuttocks now. Gets numbness in the left foot [...] but feels like he chooses to take napsand avoid his tasks too often. Initial visit 06/22/23: Reports low back pain for at least 30+ years, had L5-S1 discectomy in . Pain fluctuates on andoff for a long time. Recently says his pain is now in the low back and buttock, some along the sacral region as well, worse with standing. Worst pain is midline lumbosacral region. Reports tingling and pain down the left> right leg, down the posterior thigh and leg, all the way to the foot. Denies weakness. Denies bowel/bladder incontinence or saddle anesthesia. The pain is currently 3/10. The pain can get to 8/10 at the highest. 08/29/23: Patient has attended PT with little relief. With PT he has been able to find positions to bring thepain down, but with movement or certain positions he continues to have pain. Taking Gabapentin with some benefit, but causes dry mouth. He continues to have pain in the lumbosacral back midline, like a knife. He gets radiating pain andnumbness down the LLE posteriorly to the foot. Significant numbness left foot diffusely when takinga shower. Less numbness in right foot. Sometimes [...] HEP 3 times per week PT: [facility], Rachell Gilliam PT, 06/28-08/26/23, 8 visits, dischargedby therapist due to no progress. PT reports [...] maybe 5 years ago at [facility] -4-5 years ago he recalls having lumbar spine injections Prior spine surgery: L5-S1 discectomy in Previously treated by: -Recently seen by PA working with Spine Surgeon Dr. Al Wiley in [place] and was planning water PT. -Spine Medicine [...] CARDIOVERSION 11/14/15 CATHETER, ABLATION A-Fib, 2003 at [facility] HERNIA REPAIR HX 05/2011 left inguinal PAST [...] CARDIOVERSION 11/14/15 CATHETER, ABLATION A-Fib, 2003 at [facility] HERNIA REPAIR HX 05/2011 left inguinal PAST [...] one capsule three times daily if tolerating well.Patient is having side effects with Gabapentin. omega-3/dha/epa/fish oil (OMEGA-3 ORAL) Take by mouth. atorvastatin (LIPITOR) 40 mg tablet take 1 tablet by mouth once daily amoxicillin (AMOXIL) 500 mg capsule TAKE 2 CAPSULES BY MOUTH now then TAKE 1 CAPSULE BY MOUTH EVERY6 HOURS UNTIL GONE ketoconazole (NIZORAL) 2 % [...] (FLONASE) 50 mcg/actuation nasal spray Use 1 [place] in each nostril once daily. coenzyme Q10 100 mg cap Take 100 mg by mouth once daily. albuterol HFA (PROAIR HFA) 90 mcg/actuation inhaler Inhale 2 Puffs as instructed every 6 hours as needed. Qvogzdjkuhm-Ccuasfizh-Eib C-Mn 500-400 mg cap Take 1 capsule [...] lumbar spine with and without contrast, Hernandez [place]: The spine is visualized and T11-12 through [...] spinal stenosis and moderate to marked neuroforaminal n arrowing. T12-L1: Mild hypertrophic facet and ligamentum flavum [...] the RLE. Significant numbness left foot diffusely whentaking a shower in the morning. Less numbness [...] lasts 5-30 seconds. Gets this much less oftenin the RLE. This radiating type pain is less frequent and less severe since the injections, it was 7-10/10 prior and is now 2-3/10 typically, occasionally up to 5/10. Pain is not as bothersome in thebuttocks now. Gets numbness in the left foot [...] but feels like he chooses to take napsand avoid his tasks too often. Lyrica refilled [...] 2023 TIME: 3:15 PM documented in this encounterSt. [facility] Tele[facility] encounter Note * Telephone Encounter - Rosa Elena Lui PA-C - 11/09/2023 4:04 PM EDT Prescription refill approved on November 09, 2023 and routed to pharmacy to be filled Rosa Elena Lui PA-C [facility] Work Phone: 1(110) [phone] Miscellaneous Notes* Telephone Encounter - Rosa Elena Lui PA-C - 11/09/2023 4:04 PM EDT Prescription refill approved on November 09, 2023 and routed to pharmacy to be filled Rosa Elena Lui PA-C * Telephone Encounter - Lauar Johnson OCCA - 11/09/2023 2:41 PM EDT Patient Comment: I am out of ATENOLOL 50 MG TAB. Farther down the list it says that I can no longerrefill this Rx-WHY??? It is either Dr. Kimball or Dr. Rosa who has prescribed it in the past. Sad part is I am out and do not want my heart to back into Afib. The last time it was written the name onthe pill container is GERRY OLIVAS-NOT SURE WHO [...] - 1.22 mg/dL Final documented in this encounterSt. [facility] Telephone encounter Note * Telephone Encounter - Laura Johnson OCCA - 11/09/2023 2:41 PM EDT Patient Comment: I am out of ATENOLOL 50 MG TAB. Farther down the list it says that I can no longerrefill this Rx-WHY??? It is either Dr. Kimball or Dr. Rosa who has prescribed it in the past. Sad part is I am out and do not want my heart to back into Afib. The last time it was written the name onthe pill container is GERRY OLIVAS-NOT SURE WHO [...] 04/26/2023 1.17 0.73 - 1.22 mg/dL Final [facility]07-02-2024 Hospital Discharge instructions Patient Education 11/01/2023 10:41:40 Erectile Dysfunction Erectile Dysfunction Erectile dysfunction (ED) is the inability to get or keep an erection in order to have sexual intercourse. ED is considered a symptom of an underlying disorder and is not considered a disease. ED mayinclude: Inability to get an erection. Lack of [...] back or pelvic injuries, multiple sclerosis, Parkinson's disease,spinal cord injury, and stroke. Certain medicines, such [...] or the penis may be too curved toallow for intercourse. Never having nighttime or morning [...] penis. During this procedure, a blood vessel froma different part of the body is placed into the penis to allow blood to flow around (bypass) damaged or blocked blood vessels. Lifestyle changes, such as exercising more, losing weight, and quitting smoking. Follow these instructions at home: Medicines Take bwpb-zll-obegalg and prescription medicines only as told by your health care provider. Do not increase the dosage without first discussing it with your health care provider. If you are using self-injections, do injections as directed by your health care provider. Make sureyou avoid any veins that are on the surface of the penis. After giving an injection, apply pressureto the injection site for 5 minutes. Talk [...] you need help quitting, ask your health careprovider. Before using a vacuum pump, read the instructions that come with the pump and discuss any questionswith your health care provider. Keep all follow-up [...] provider. Document Revised: 07/15/2021 Document Reviewed: 07/15/2021 [employer] Patient Education 2022 [employer] Follow Up Care 10/24/2023 10:07:13 With:ALLAN JARVIS, Nghia Elizabeth, URL Address: [address] [place], [place] [id number]- When: Unknown [facility] 07-02-2024 NotePatient Education Urology Erectile Dysfunction Erectile dysfunction (ED) is the inability to get or keep an erection in order to have sexual intercourse. ED is considered a symptom of an underlying disorder and is not considered a disease. ED mayinclude: ? Inability to get an erection. ? [...] The tube is inserted into the opening atthe tip of the penis, which is the opening of the urethra. A tiny pellet of medicine is put in the urethra. The pellet dissolves and enhances erectile function. This is also called MUSE (medicated urethral system for erections) therapy. ? Vacuum pump. This is a pump with a ring on it. The pump and ring are placed on the penis and usedto create pressure that helps the penis become [...] these instructions at home: Medicines ? Take uwbp-rzz-nthrgjw and prescription medicines only as told by [...] to prevent headaches while taking ED medicines. Thesemedicines may cause a sudden headache due to the increase in blood flow in your body. General instructions ? Exercise regularly, as directed by your health care provider. Work with your health care providerto lose weight, if needed. ? Do not use any products that contain nicotine or tobacco. These (more content not included)...[facility]06-20-2024 Telephone encounter Note* Telephone Encounter - Laura Johnson OCCA - 10/20/2023 11:25 AM EDT Patient Comment: When my legs swell, my left leg more than my right is swollen, but not enough thateither one of them hurt. or do I [...] 04/26/2023 1.17 0.73 - 1.22 mg/dL Final [facility]06-20-2024 Miscellaneous Notes* Telephone Encounter - Laura Johnson OCCA - 10/20/2023 11:25 AM EDT Patient Comment: When my legs swell, my left leg more than my right is swollen, but not enough thateither one of them hurt. or do I [...] - 1.22 mg/dL Final documented in this encounterSt. [facility] Telephone encounter Note * Telephone Encounter - Teresa Goldberg APRN.CNP - 10/03/2023 5:19 PM EDT Quarterly labs placed for the patient The following approved medication requests have been transmitted electronically. Requested Prescriptions Signed Prescriptions Disp Refills dofetilide (TIKOSYN) 500 mcg capsule 180 capsule 3 Sig: Take 1 capsule by mouth two times a day. Authorizing Provider: ODALYS ROSA Ordering User: TERESA GOLDBERG APRN.CNP [facility]06-03-2024 Miscellaneous Notes* Telephone Encounter - Teresa Goldberg APRN.CNP - 10/03/2023 5:19 PM EDT Quarterly labs placed for the patient The following approved medication requests have been transmitted electronically. Requested Prescriptions Signed Prescriptions Disp Refills dofetilide (TIKOSYN) 500 mcg capsule 180 capsule 3 Sig: Take 1 capsule by mouth two times a day. Authorizing Provider: ODALYS ROSA Ordering User: TERESA GOLDBERG APRN.CNP * Telephone Encounter - Carlitos Modi OCCA - 10/03/2023 3:44 PM EDT Received request for refill of the following [...] - 1.22 mg/dL Final documented in this encounterSt. [facility]06-[facility] Telephone encounter Note * Telephone Encounter - Carlitos Modi OCCA - 10/03/2023 3:44 PM EDT Received request for refill of the following [...] 05/12/2022 0.98 0.73 - 1.22 mg/dL Final [facility]-28-2024 Telephone encounter Note* Telephone Encounter - Tremaine Joseph RN - 09/27/2023 10:32 AM EDT Tried to reach patient for post-injection phone call [phone]. Left office number for patient to call back. MyChart message/questionairre sent regarding post-injection. Tremaine Joseph RN [facility]05-28-2024 Miscellaneous Notes* Telephone Encounter - Tremaine Joseph RN - 09/27/2023 10:32 AM EDT Tried to reach patient for post-injection phone call [phone]. Left office number for patient to call back. [place] message/questionairre sent regarding post-injection. Tremaine Joseph RN documented in this encounterSt. [facility]05-[facility] Telephone encounter Note * Telephone Encounter - Chelita Tapia - 09/16/2023 10:10 AM EDT Patients insurance [employer] is calling Angeli Kimball MD today to provide update. [employer] contacted this patient today 09/16/23. Patient informed his insurance that per a recommendation from the PCP they increased lasix from 20 mg to 40 mg to due lower leg swelling- per devoted the increase has helpedthe patient Please review and advise. Patient has been identified by name and birthdate. Duration of symptoms: unknown-patient not available at time of integration developer calling: insurance rep Call patient at: at home and on cell [phone] (home) [phone] (cell) Was an appointment scheduled: No Closing statement: Symptom Call: Thank you for calling [facility], your call is very important. A nurse will call in approximately 2-4 hours during business hours. If this is an emergency, please contact 911. Chelita Tapia [facility]05-17-2024 Miscellaneous Notes* Telephone Encounter - Chelita Tapia - 09/16/2023 10:10 AM EDT Patients insurance [employer] is calling Angeli Kimball MD today to provide update. [employer] contacted this patient today 09/16/23. Patient informed his insurance that per a recommendation from the PCP they increased lasix from 20 mg to 40 mg to due lower leg swelling- per devoted the increase has helpedthe patient Please review and advise. Patient has been identified by name and birthdate. Duration of symptoms: unknown-patient not available at time of integration developer calling: insurance rep Call patient at: at home and on cell [phone] (home) [phone] (cell) Was an appointment scheduled: No Closing statement: Symptom Call: Thank you for calling [facility], your call is very important. A nurse will call in approximately 2-4 hours during business hours. If this is an emergency, please contact 911. Chelita Tapia documented in this encounterSt. Mary[facility] Telephone encounter Note * Telephone Encounter - Tremaine Joseph RN - 09/13/2023 2:21 PM EDT Attempted to reach patient via telephone for pre-procedure instructions regarding procedure with Dr. Ram on 09/20/2023 at contact number [phone], patient unable to talk on phone at this time. Left office number on voicemail. NTN Buzztimehart message sent with pre-procedure guidelines for injection. Tremaine Joseph RN [facility]05-14-2024 Miscellaneous Notes* Telephone Encounter - Tremaine Joseph RN - 09/13/2023 2:21 PM EDT Attempted to reach patient via telephone for pre-procedure instructions regarding procedure with Dr. Ram on 09/20/2023 at contact number [phone], patient unable to talk on phone at this time. Left office number on voicemail. COM DEVt message sent with pre-procedure guidelines for injection. Tremaine Joseph RN documented in this encounterSt. Mary'[facility]04-29-2024 Telephone encounter Note * Telephone Encounter - Delfina Hwang RN - 08/29/2023 4:21 PM EDT Spoke to pharmacy it went through insurance. Just waiting for pharmacy picking technician. [facility]04-29-2024 Miscellaneous Notes* Telephone Encounter - Delfina Hwang RN - 08/29/2023 4:21 PM EDT Spoke to pharmacy it went through insurance. Just waiting for pharmacy picking technician. * Telephone Encounter - Delfina Hwang RN - 08/29/2023 11:10 AM EDT Spoke to pharmacy they have not put script in yet but will call me back once they have. * Telephone Encounter - Delfina Hwang RN - 08/29/2023 11:07 AM EDT Images from the original note were not included. Received: Today Alpa Ram, DO Delfina Hwang, BEN Lyrica prescribed, but pop up notification says prior auth is needed. Can you check on that please? I am switching him from Gabapentin because it is causing dry mouth and lower extremity edema. Thank you documented in this encounterSt. Mary'[facility]04-[facility]-2024 NoteHNO ID: [id number] Author: JESSIKA AVILA RT(R) Service: ? Author [...] PATIENT PRESENTS WITH AN IMPLANTABLE OR ATTACHED SURVEY SUPERINTENDENT: No RADIOLOGY DEPARTMENT: General X-ray: Exam(s) Completed: Spine X-Ray(s): Lumbar AP / LAT / L5-S1 / FLEX-EXT PERIPHERAL IV DATA: Not applicable SIGNED BY: RT Woo(R) August 29, 2023 11:22 [facility]04-29-2024 History of Present illness Narrative* Jessika Avila RT(R) - 08/29/2023 11:22 AM EDT Radiology Service Progress Note PATIENT NAME: Irena Peraza DATE OF SERVICE: August 29, 2023 TIME: 11:22 AM PATIENT IDENTITY VERIFICATION COMPLETED USING TWO (2) IDENTIFIERS: Name and Date of confirmedby patient verbally. FALL SCREENING: Has the patient had 2 falls in the last year or 1 fall with injury or currently using an Ambulatory Assistive Device (Walker, Cane, Wheelchair, Crutches, etc.)? No PATIENT GENDER DATA: Male PATIENT RELEVANT IMPLANT DATA REVIEWED: Not Applicable PATIENT PRESENTS WITH AN IMPLANTABLE OR ATTACHED SURVEY SUPERINTENDENT: No RADIOLOGY DEPARTMENT: General X-ray: Exam(s) Completed: Spine X-Ray(s): Lumbar AP / LAT / L5-S1 / FLEX-EXT PERIPHERAL IV DATA: Not applicable SIGNED BY: RT Woo(R) August 29, 2023 11:22 AM documented in this encounterSt. Mary'[facility]04[facility] Telephone encounter Note * Telephone Encounter - Delfina Hwang RN - 08/29/2023 11:10 AM EDT Spoke to pharmacy they have not put script in yet but will call me back once they have. [facility]04-29-2024 Telephone encounter Note* Telephone Encounter - Delfina Hwang RN - 08/29/2023 11:07 AM EDT Images from the original note were not included. Received: Today Alpa Ram, DO Delfina Hwang, RN Jr prescribed, but pop up notification says prior auth is needed. Can you check on that please? I am switching him from Gabapentin because it is causing dry mouth and lower extremity edema. Thank you [facility]04-29-2024 NoteHNO ID: [id number] Author: ALPA RAM DO Service: ? Author Type: Physician Type: Progress Notes Filed: 09/01/2023 19:12 Note Text: [facility] [place] [facility] [place] [facility] - Medical Spine Established [...] 8/10 at the highest. PAIN EVALUATION 08/28/2023 7322 Pain Level: 9 Pain Location: Buttocks-Left Description: Burning;Numbness;Radiating;Sharp;Stabbing Duration Units: Minutes Frequency: Continuous Intervention/Comfort measure: [...] HEP 3 times per week PT: [facility], Rachell Gililam PT, 06/28-08/26/23, 8 visits, discharged by therapist [...] maybe 5 years ago at [facility] -4-5 years ago he recalls having lumbar spine injections Prior spine surgery: L5-S1 discectomy in Previously treated by: -Recently seen by PA working with Spine Surgeon Dr. Al Wiley in [place] and was planning [facility] PT. -Spine Medicine Dr. Bellamy. 2019 for [...] CARDIOVERSION 11/14/15 CATHETER, ABLATION A-Fib, 2003 at [facility] HERNIA REPAIR HX 05/2011 left inguinal PAST [...] 6 months: Every day (more content not included)...[facility]04-29-2024 History of Present illness Narrative* Alpa Ram, DO - 08/29/2023 9:58 AM EDT Images from the original note were not included. [facility] [place] [facility] [place] [facility] - Medical Spine Established Patient SUBJECTIVE HISTORY OF PRESENT ILLNESS: Irena Peraza is a 78 year old male who presents for f/u of low back pain. Last visit: MRI lumbar reviewed, Rx Gabapentin and PT. Patient has attended PT with little relief. With PT he has been able to find positions to bring thepain down, but with movement or certain positions he continues to have pain. Taking Gabapentin with some benefit, but causes dry mouth. He continues to have pain in the lumbosacral back midline, like a knife. He gets radiating pain andnumbness down the LLE posteriorly to the foot. Significant numbness left foot diffusely when takinga shower. Less numbness in right foot. Sometimes feels like legs might buckle with pain. Pain is 3-4/10 while sitting, but with movement it can go up to 10/10, described as a bolt of lightning . Initial visit 06/22/23: Reports low back pain for at least 30+ years, had L5-S1 discectomy in . Pain fluctuates on andoff for a long time. Recently says his pain is now in the low back and buttock, some along the sacral region as well, worse with standing. Worst pain is midline lumbosacral region. Reports tingling and pain down the left> right leg, down the posterior thigh and leg, all the way to the foot. Denies weakness. Denies bowel/bladder incontinence or saddle anesthesia. The pain is currently 3/10. The pain can get to 8/10 at the highest. PAIN EVALUATION 08/28/2023 0099 Pain Level: 9 Pain Location: Buttocks-Left Description: Burning;Numbness;Radiating;Sharp;Stabbing Duration Units: Minutes Frequency: Continuous Intervention/Comfort measure: [...] HEP 3 times per week PT: [facility], Rachell Gilliam PT, 06/28-08/26/23, 8 visits, dischargedby therapist due to no progress. PT reports [...] the neck, maybe 5 years ago at [facility] -4-5 years ago he recalls having lumbar spine injections Prior spine surgery: L5-S1 discectomy in Previously treated by: -Recently seen by PA working with Spine Surgeon Dr. Al Wiley in [place] and was planning water PT. -Spine Medicine [...] CARDIOVERSION 11/14/15 CATHETER, ABLATION A-Fib, 2003 at [facility] HERNIA REPAIR HX 05/2011 left inguinal PAST [...] CARDIOVERSION 11/14/15 CATHETER, ABLATION A-Fib, 2003 at [facility] HERNIA REPAIR HX 05/2011 left inguinal PAST [...] now then TAKE 1 CAPSULE BY MOUTH EVERY6 HOURS UNTIL GONE ketoconazole (NIZORAL) 2 % [...] (FLONASE) 50 mcg/actuation nasal spray Use 1 [place] in each nostril once daily. coenzyme Q10 100 mg cap Take 100 mg by mouth once daily. albuterol HFA (PROAIR HFA) 90 mcg/actuation inhaler Inhale 2 Puffs as instructed every 6 hours as needed. Lulnvrltvdx-Kzmdpmnua-Nkq C-Mn 500-400 mg cap Take 1 capsule [...] lumbar spine with and without contrast, Hernandez [place]: The spine is visualized and T11-12 through [...] spinal stenosis and moderate to marked neuroforaminal n arrowing. T12-L1: Mild hypertrophic facet and ligamentum flavum [...] of L4 on 5, disc desiccation of L5-S1,multi level foraminal narrowing worse at L4-5 and L5-S1 and facet hypertrophy of L3-4, L4-5, and L5- S1. Suspect his problem is primarily related to lumbar stenosis with radicular symptoms, but facet OA could be involved as well. Since last visit he has completed a course of PT and continues HEP, but reports little relief. Taking Gabapentin with some benefit, but causes dry mouth and mild increasein chronic BLE edema. Treatment options discussed today [...] 2023 TIME: 3:15 PM documented in this encounterSt. [facility] History of Present illness Narrative* Odalys Rosa MD - 08/15/2023 12:00 AM EDT [facility] NOTE NAME: IRENA PERAZA CLINIC NO.: [id number] DATE OF SERVICE: 08/15/2023 ATTENDING PHYSICIAN: Odalys Rosa M.D. Office Visit The patient is a 78-year-old man with paroxysmal atrial fibrillation. I have known him for about 5 years. Atrial fibrillation first occurred about 20 years ago. He subsequently had a PVI at the [facility]. Atrial fibrillation recurred in 2015. A few [...] the patient feels well. MEDICATIONS: Reviewed in [facility] including atenolol 50 mg daily, Tikosyn 500 mcg twice daily. PHYSICAL EXAMINATION: He looks well. Blood pressure 136/60, pulse rate 80 and regular. Lungs: No wheezes, rales, or rhonchi. Heart: First and second heart sounds normal. EKG done on April 26, 2023, sinus rhythm, within normal limits. IMPRESSION AND RECOMMENDATIONS: He will continue his current rhythm control strategy and I will seehim again in 6 months. Please note that a pharmacologic nuclear stress test done 2 months ago demonstrated normal left ventricular size and systolic function and no evidence of scar or ischemia. DICTATED BY: Odalys Rosa M.D. LJ/AQT JOB# [id number] documented in this encounterSt. Mary[facility]03[facility]2024 NoteHNO ID: [id number] Author: ANGELI KIMBALL MD Service: ? Author Type: Physician Type: Progress Notes Filed: 07/18/2023 11:01 Note Text: [facility] [place] [facility] Department of Cardiovascular Medicine SECTION OF REGIONAL CARDIOLOGY OUTPATIENT VISIT DATE April 24, 2023 OUTPATIENT VISIT TYPE ESTABLISHED PRIMARY CARE PHYSICIAN: Scarlett Gaviria NP [address] [place] [id number] CHIEF COMPLAINT: Arrhythmia HISTORY OF PRESENT ILLNESS: [...] wasn't feeling well and he went to [place] ED. A CT chest was done and [...] by mouth once daily.Disp: 30 tabletRfl: 5 Lylnw-6-QUI-EPA-Fish Oil 1,000 mg (120 mg-180 mg) capTake [...] fluticasone (FLONASE) 50 mcg/actuation nasal sprayUse 1 [place] in each nostril once daily.Disp: Rfl: 0 coenzyme Q10 100 mg capTake 100 mg by mouth once daily. Disp: Rfl: LORATADINE (CLARITIN ORAL)Take 1 tablet by mouth once daily.Disp: Rfl: albuterol HFA (PROAIR HFA) 90 mcg/actuation inhalerInhale 2 Puffs as instructed every 6 hours as needed.Disp: 1 InhalerRfl: 0 Zbaqzzjinyc-Yjoyhmqmv-Jqw C-Mn 500-400 mg capTake 1 capsule by [...] with a maximal dimensi (more content not included)...[facility]03-18-2024 History of Present illness Narrative* Angeli Kimball MD - 07/18/2023 10:57 AM EDT Images from the original note were not included. [facility] [place] [facility] Department of Cardiovascular Medicine SECTION OF [facility] CARDIOLOGY OUTPATIENT VISIT DATE April 24, 2023 OUTPATIENT VISIT TYPE ESTABLISHED PRIMARY CARE PHYSICIAN: Scarlett Gaviria NP [address] [place] [address] CHIEF COMPLAINT: Arrhythmia HISTORY OF PRESENT ILLNESS: Mr. Peraza is a pleasant 78 year old male here for cardiovascular follow-up of her Hx of Atrial Fibnow s/p watchman device. On follow up visit 4 months following implantation he was seen by Dr Kemp(implanted the device) and was told to stop the apixaban and comtinue Aspirin 81mg. Scheduled for a1 year YOGESH. He is a patient of Dr Kimball. 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 A week ago he was in the pool and he wasn't feeling well and he went to [place] ED. A CT chest wasdone and showed mild pulmonary edema and trace B/L pleural effusions. He was told to take his lasixtwice a day for 4 days. He was [...] by mouth once daily.^Disp: 30 tablet^Rfl: 5 Ttwwv-1-SEY-EPA-Fish Oil 1,000 mg (120 mg-180 mg) cap^Take [...] fluticasone (FLONASE) 50 mcg/actuation nasal spray^Use 1 [place] in each nostril once daily.^Disp: ^Rfl: 0 coenzyme Q10 100 mg cap^Take 100 mg by mouth once daily. ^Disp: ^Rfl: LORATADINE (CLARITIN ORAL)^Take 1 tablet by mouth once daily.^Disp: ^Rfl: albuterol HFA (PROAIR HFA) 90 mcg/actuation inhaler^Inhale 2 Puffs as instructed every 6 hours as needed.^Disp: 1 Inhaler^Rfl: 0 Fjreaemvdvn-Fstbgpylf-Yhn C-Mn 500-400 mg cap^Take 1 capsule by [...] the prior echocardiographic exam performed on 02/27/2020 ([facility]). On direct image comparison, mid ascending [...] ABNORMAL ECG Confirmed by MARIEL CRUZ MD ([id number]) on 09/15/2022 10:04:27 AM Assessment & Plan [...] NSR without any evidence of acute ischemia. [facility] in 2012 showed mild disease in the prox LAD Labs from [place] showed an BUN/Cr of 15/1.34 with a [...] Take 1 tablet by mouth once daily. Zljty-6-AYT-EPA-Fish Oil 1,000 mg (120 mg-180 mg) cap [...] (FLONASE) 50 mcg/actuation nasal spray Use 1 [place] in each nostril once daily. coenzyme Q10 100 mg cap Take 100 mg by mouth once daily. LORATADINE (CLARITIN ORAL) Take 1 tablet by mouth once daily. albuterol HFA (PROAIR HFA) 90 mcg/actuation inhaler Inhale 2 Puffs as instructed every 6 hours as needed. Ebcrgschpcg-Tutlceedf-Jld C-Mn 500-400 mg cap Take 1 capsule [...] which included preparing to see the patient, xbut-ef-paio patient care, completing clinical documentation, performing a medically appropriate examination, counseling and educating the patient/family/caregiver and ordering medications, tests or procedures. Persistent atrial fibrillation (hcc) (primary encounter diagnosis) Presence of watchman left atrial appendage closure device Obesity, class i, bmi 30-34.9 Chronic diastolic congestive heart failure (hcc) Angeli Kimball MD documented in this encounterSt. [facility] Instructions* Patient Instructions* Dg Barrientos DO - 06/22/2023 4:37 PM [...] the office if questions. documented in this encounterSt. Mary'[facility]24 NoteHNO ID: [id number] Author: ALPA RAM DO Service: ? Author Type: Physician Type: Progress Notes Filed: 07/03/2023 19:54 Note Text: [facility] [place] [facility] - Medical Spine Initial [...] the neck, maybe 5 years ago at [facility] Prior spine surgery: L5-S1 discectomy in Previously treated by: -Recently seen by PA working with Spine Surgeon Dr. Al Wiley in [place] and was planning water PT. -Spine Medicine [...] LAD CARDIOVERSION 11/14/15 CATHETER, ABLATION A-2003 at [facility] HERNIA REPAIR HX 05/2011 left inguinal PAST [...] Monitoring Tikosyn Therapy Gastrointestinal Hemorrhage IRB [id number] [facility] (more content not included)...[facility]02-21-2024 History of Present illness Narrative* Alpa Ram, - 06/22/2023 2:52 PM EST Images from the original note were not included. [facility] [place] [facility] Spine Initial Exam SUBJECTIVE HISTORY OF PRESENT ILLNESS: Irena Peraza is a 78 year old male who presents with a chief complaint of low back pain. Reports low back pain for at least 30+ years, had L5-S1 discectomy in 1990s. Pain fluctuates on andoff for a long time. Recently says his pain is now in the low back and buttock, some along the sacral region as well, worse with standing. Worst pain is midline lumbosacral region. Reports tingling and pain down the left> right leg, down the posterior thigh and [...] with Spine Surgeon Dr. Al Wiley in [place] and was planning water PT. -Spine Medicine [...] CARDIOVERSION 11/14/15 CATHETER, ABLATION A-, 2003 at [facility] HERNIA REPAIR HX 05/2011 left inguinal PAST [...] CARDIOVERSION 11/14/15 CATHETER, ABLATION A-, 2003 at [facility] HERNIA REPAIR HX 05/2011 left inguinal PAST [...] now then TAKE 1 CAPSULE BY MOUTH EVERY6 HOURS UNTIL GONE^Disp: ^Rfl: ketoconazole (NIZORAL) 2 [...] fluticasone (FLONASE) 50 mcg/actuation nasal spray^Use 1 [place] in each nostril once daily.^Disp: ^Rfl: 0 coenzyme Q10 100 mg cap^Take 100 mg by mouth once daily. ^Disp: ^Rfl: albuterol HFA (PROAIR HFA) 90 mcg/actuation inhaler^Inhale 2 Puffs as instructed every 6 hours as needed.^Disp: 1 Inhaler^Rfl: 0 Crigwhedngr-Eveozsjmq-Pvw C-Mn 500-400 mg cap^Take 1 capsule by [...] (5' 10 ) Wt 94.8 kg (208 lb15.9 oz) SpO2 97% BMI 29.99 kg/m GENERAL [...] spinal stenosis and moderate to marked neuroforaminal n arrowing. T12-L1: Mild hypertrophic facet and ligamentum flavum [...] and facet hypertrophy of L3-4, L4-5, and L5- S1. Suspect his problem is primarily related to [...] mobilization, modalities, body mechanics, posture, and develop homeexercise program. -Activities and exercise as tolerated. Avoid [...] 2023 TIME: 3:15 PM documented in this encounterSt. Mary'[facility] History of Present illness Narrative* Gary Duqueyuki Linton, RT(R) - 06/16/2023 12:30 PM EST RADIOLOGY SERVICE PROGRESS NOTE SERVICE DATE: 06/16/2023 [...] PATIENT PRESENTS WITH AN IMPLANTABLE OR ATTACHED SURVEY SUPERINTENDENT: No CREATININE: Creatinine Date Value Ref Range [...] creatinine assay has traceable calibration to isotope dilution- mass spectrometry. Refer to KDIGO guidelines for clinical interpretation. In patients with unstable renal function, e.g. those with acute kidney injury, the eGFRmay not accurately reflect actual GFR. eGFR- Date Value Ref Range Status 03/09/2021 >60 Final P.O.C.T. RESULTS: N/A June 16, [address] PERFORMED: No IV SITE: Ambulatory: A peripheral IV was started in the Left antecubital site with a Angio cath: 22gauge. POST EXAM PIV STATUS: Discontinued PROCEDURE TYPE: NM Stress: 14.0 mCi Xi23v-Cbqefvx was administered IV for Rest Imaging at 1244 by AN. 35.3 mCi Bn02s-Ywqbpqy was administered IV for Stress Imaging at 1353 by AN. PATIENT DISCHARGED TO: Ambulatory patient, left AL department area. A Diagnostic radioactive procedure has taken place, with no further precautions necessary other than routine body substance precautions. More information regarding radiation safety can be found usingthis link: [email or web address] 20Diagnostic%20Nuclear%20Medicine%20Procedures.pdf SIGNATURE: JANINA Archuleta) PATIENT NAME: Irena Peraza DATE: June 16, 2023 TIME: 12:56 PM PAGER/CONTACT #: documented in this encounterSt. Mary'[facility]02-15-2024 NoteHNO ID: [id number] Author: ZULEYKA DUQUE RT (R) Service: ? Author Type: Technologist Type: Progress [...] PATIENT PRESENTS WITH AN IMPLANTABLE OR ATTACHED SURVEY SUPERINTENDENT: No CREATININE: Creatinine Date Value Ref Range [...] Discontinued PROCEDURE TYPE: NM Stress: 14.0 mCi Fr31a-Fflvepr was administered IV for Rest Imaging at 1244 by AN. 35.3 mCi Od54x-Rqjvqbg was administered IV for Stress Imaging at 1353 by AN. PATIENT DISCHARGED TO: Ambulatory patient, left NM department area. A Diagnostic radioactive procedure has taken place, with no further precautions necessary other than routine body substance precautions. More information regarding radiation safety can be found using this link: [email or web address] 20Diagnostic%20Nuclear%20Medicine%20Procedures.pdf SIGNATURE: RT Kathe(R) PATIENT NAME: Irena Peraza DATE: June 16, 2023 TIME: 12:56 PM PAGER/CONTACT #:[facility]02-14-2024 Miscellaneous Notes* Telephone Encounter - Sujatha Lim RN - 06/15/2023 2:08 PM EST Forward to Randa mcconnell. Please advise. * Telephone Encounter - Sujatha Lim RN - 06/15/2023 1:15 PM EST Patient scheduled for NM/Pharm [place], old order discontinued, need new order please. Forward to Dr. Simms. Please advise. documented in this encounterSt. Mary'[facility]02-13-[facility] History of Present illness Narrative* Haris Sutton DPM FACFAS - 06/14/2023 11:30 AM EST Images from the original note were not included. patient: Irena Peraza : 1945 PCP: [facility] Provider Unallocated SUBJECTIVE This is a 78 y.o. male that presents today with a chief complaint of painful elongated nails digits1 through 10. They cause marked limitation in ambulation due to pain and pressure from shoe gear. Allergies: No Known Allergies Past Medical History: Past Medical History: Diagnosis Date Acute idiopathic gout of left wrist 01/26/2023 Acute on chronic diastolic congestive heart failure ([facility]/HCC) 10/31/2015 Acute right-sided low back pain with [...] spine pain 01/26/2023 Chronic obstructive lung disease ([facility]/HCC) 01/26/2023 Colon polyps 01/26/2023 Contracture, left ankle 01/26/2023 COPD (chronic obstructive pulmonary disease) ([facility]) Deformity of metatarsal 01/26/2023 Degenerative cervical disc 01/26/2023 Depression ([facility]/HCC) 01/26/2023 Elevated PSA 01/26/2023 Enlarged prostate 01/26/2023 Erosion of intestine 01/26/2023 Flank pain 01/26/2023 Former smoker 01/26/2023 Gastroesophageal reflux disease 01/26/2023 Melanoma ([facility]) 08/2012 left chest; MM; breslows depth 0.64mm; [...] (TWO) sprays IN EACH NOSTRIL DAILY, Disp: ,Rfl: ketoconazole (NIZOral) 2 % cream, apply to [...] the morning and 2 puffs before bedtime., Disp:, Rfl: tolterodine LA (Detrol LA) 4 MG [...] subungual debris. They were painful to palpation [id number] on the right [id number] on the left. VASC: DP /PT were nonpalpable bilateral. Capillary refill time < 3 seconds Digits 1-5 bilateral NEURO: Brokaw Tonny 5.07 monofilament was intact B/L. Vibratory [...] were debrided both in length and thickness 1through 10. DAMIAN Degroot documented in this encounterPemiscot Memorial Health [id number] History of Present illness Narrative* Zahira Infante Nuclear Tech - 06/13/2023 10:00 AM EST RADIOLOGY SERVICE PROGRESS NOTE RADIOLOGY SERVICE PROGRESS NOTE DATE OF SERVICE: June 13, 2023 TIME OF SERVICE: 1010 EVENT: EXAM/PROCEDURE NOT COMPLETED - Patient requires additional/alternate prep. Pt Had caffeine and willbe rescheduled ADDITIONAL EVENT DETAILS: N/A SIGNATURE: Gladys Gavin PATIENT NAME: Irena Peraza DATE: June 13, 2023 TIME: 10:15 AM PAGER/CONTACT #: documented in this encounterSt. Mary'S [facility]02-12-2024 NoteHNO ID: [id number] Author: ZAHIRA INFANTE Nuclear Tech Service: ? Author Type: Nail Kegger Type: Progress Notes Filed: 06/13/2023 10:16 Note Text: RADIOLOGY SERVICE PROGRESS NOTE RADIOLOGY SERVICE PROGRESS NOTE DATE OF SERVICE: June 13, 2023 TIME OF SERVICE: 1010 EVENT: EXAM/PROCEDURE NOT COMPLETED - Patient requires additional/alternate prep. Pt Had caffeine and will be rescheduled ADDITIONAL EVENT DETAILS: N/A SIGNATURE: Gladys Gavin PATIENT NAME: Irena Peraza DATE: June 13, 2023 TIME: 10:15 AM PAGER/CONTACT #:[facility]02-02-2024 Miscellaneous Notes* Telephone Encounter - Antonio Roman APRN.CNP - 06/03/2023 2:42 PM EST Please let patient know I sent 2 month refill for statin but he has not had lipid panel in almost 4years so we cannot refill more than that until labs are drawn. Order for labs is in * Telephone Encounter - Jeaneth Jaquez Ma - 06/03/2023 1:42 PM EST Pharmacy escripts requesting the following refill: Requested Prescriptions Pending Prescriptions Disp Refills atorvastatin (LIPITOR) 40 mg tablet 90 tablet 3 Sig: Take 1 tablet by mouth once daily. Please review and advise. Jeaneth Jaquez Ma documented in this encounterSt. Mary'[facility]10-[facility]-2023 Hospital Discharge instructions Patient Education 02/02/2023 14:55:59 Prostate Cancer Screening Prostate Cancer Screening Prostate cancer screening is testing that is done to check for the presence of prostate cancer in men. The prostate gland is a walnut-sized gland that is located below the bladder and in front of therectum in males. The function of the prostate is to add fluid to semen during ejaculation. Prostatecancer is one of the most common types of cancer in men. Who should have prostate cancer screening? Screening recommendations vary based on age and other risk factors, as well as between the professional organizations who make the recommendations. In general, screening is recommended if: You are age 50 to 70 and have an average risk for prostate cancer. You should talk with your healthcare provider about your need for screening and [...] diagnosed with prostate cancer. The risk is higherif your family member's cancer occurred at an early age or if you have multiple family members withprostate cancer at an early age. ?Being a [...] is a blood test called the prostate-specific antigen(PSA) test. PSA is a protein that is [...] treatment? Where to find more information The [place] [employer]: www.cancer.org [place] [employer]: www.auanet.org Contact a health care [...] the recommended screening test for prostate cancer, butit has associated risks. Discuss the risks and [...] provider. Document Revised: 10/12/2021 Document Reviewed: 10/12/2021 [employer] Patient Education 2022 [place], [place] [employer]. Follow Up Care 07/27/2022 11:51:56 With:ALLAN JARVIS, Nghia Elizabeth, URL Address: [address] [place], [place] [id number]- When: Unknown [facility] 07-18-2023 Miscellaneous Notes* Telephone Encounter - Ny Macedo APRN.CNP - 11/16/2022 12:26 PM EDT The following approved medication requests have been transmitted electronically. Requested Prescriptions Signed Prescriptions Disp Refills furosemide (LASIX) 20 mg tablet 90 tablet 3 Sig: Take 1 tablet by mouth once daily. Authorizing Provider: ANGELI KIMBALL Ordering User: NY MACEDO A Prescription was sent to [facility] in [place], [place], as per patient request. Ny Macedo APRN.CNP documented in this encounterSt. Mary'S [facility]07-14-2023 Miscellaneous Notes* Telephone Encounter - Nadir Flaherty LPN - 11/12/2022 3:23 PM EDT Received request for refill of the following [...] - 1.22 mg/dL Final documented in this encounterSt. Mary'S [facility]06-22-2023 Miscellaneous Notes* Telephone Encounter - Esther Rapp RN - 10/21/2022 1:06 PM EDT Received request for refill of the following [...] 07/02/2021 1.05 0.73 - 1.22 mg/dL Final * Telephone Encounter - Esther Rapp RN - 10/21/2022 1:05 PM EDTMessage [facility] Refills have been requested for the following medications: atenolol (TENORMIN) 50 mg tablet [Dr. Nahtaniel Rosa] Preferred pharmacy: [id number] - [place] [address] - [phone] - [phone] Delivery method: Pickup documented in this encounterSt. Mary'S [facility]05-27-2023 Miscellaneous Notes* Telephone Encounter - Moustapha Melvin APRN.CNP - 09/25/2022 2:23 PM EDT The following approved medication requests have been transmitted electronically. Requested Prescriptions Signed Prescriptions Disp Refills dofetilide (TIKOSYN) 500 mcg capsule 180 capsule 3 Sig: Take 1 capsule by mouth twice daily. Authorizing Provider: ODALYS ROSA Ordering User: MOUSTAPHA MELVIN APRN.CNP * Telephone Encounter - Lynn Purdy MA - 09/21/2022 2:47 PM EDT Received request for refill of the following [...] - 1.22 mg/dL Final documented in this encounterSt. Mary'S [facility]05-16-2023 History of Present illness Narrative* Kaylah Kemp MD - 09/14/2022 2:15 PM EDT Images from the original note were not included. [facility] [place] [facility] Department of Cardiovascular Medicine SECTION OF CARDIAC PACING and ELECTROPHYSIOLOGY OUTPATIENT VISIT DATE September 14, 2022 OUTPATIENT VISIT TYPE ESTABLISHED PRIMARY CARE PHYSICIAN: Scarlett Gaviria NP [address] [place] [address] CHIEF COMPLAINT: Follow up visit s/p Watchman [...] He states that he does feel better inNSR. In November he was diagnosed with anemia and GI bleed. He received 4 units of PRBC and iron infusions. EGD, tagged red blood cell GI study and capsule endoscopy were done and failed to find a source ofbleeding. Colonoscopy was not done after the bleed. [...] CARDIOVERSION 11/14/15 CATHETER, ABLATION A-, 2003 at [facility] HERNIA REPAIR HX 05/2011 left inguinal PAST [...] by mouth once daily.^Disp: 30 tablet^Rfl: 5 Ypyhy-6-APY-EPA-Fish Oil 1,000 mg (120 mg-180 mg) cap^Take [...] fluticasone (FLONASE) 50 mcg/actuation nasal spray^Use 1 [place] in each nostril once daily.^Disp: ^Rfl: 0 coenzyme Q10 100 mg cap^Take 100 mg by mouth once daily. ^Disp: ^Rfl: LORATADINE (CLARITIN ORAL)^Take 1 tablet by mouth once daily.^Disp: ^Rfl: albuterol HFA (PROAIR HFA) 90 mcg/actuation inhaler^Inhale 2 Puffs as instructed every 6 hours as needed.^Disp: 1 Inhaler^Rfl: 0 Dneolxuuckl-Jucwrhgrp-Ygx C-Mn 500-400 mg cap^Take 1 capsule by [...] or Cold Intolerance, Excessive Sweating, Frequent Urination, FrequentThirst Rosa [place], BEN I have seen and evaluated the patient and confirmed the findings of the Physician Inventory And Pricing Associate/Nurse Practitioner or fellow/resident above, with the addition [...] the prior echocardiographic exam performed on 02/27/2020 ([facility]). On direct image comparison, mid ascending thoracic aorta measures larger today. Aortic regurgitation also appears mildly more prominent. ESSION/PLAN AND RECOMMENDATIONS: HIEF COMPLAINT: Follow up visit s/p Watchman HISTORY [...] He states that he does feel better inNSR. In November he was diagnosed with anemia and GI bleed. He received 4 units of PRBC and iron infusions. EGD, tagged red blood cell GI study and capsule endoscopy were done and failed to find a source ofbleeding. Colonoscopy was not done after the bleed. [...] as such she can stop the apixaban andcontinue on aspirin 81 mg p.o. daily. Follow-up with me with a YOGESH in 1 year or sooner if needed. Kaylah Kemp MD I personally interviewed, confirmed and edited the above information as obtained by others. CONTACT INFORMATION: Kaylah Kemp MD documented in this encounterSt. Mary'[facility]05-04-2023 Miscellaneous Notes* Telephone Encounter - Teresa Goldberg APRN.CNP - 09/02/2022 5:[address] Rosa not managing the dyslipidemia please send to primary care physician thank you Teresa Goldberg APRN.FOAMITE MIXER * Telephone Encounter - Keily Ford LPN - 09/01/2022 2:14 PM EDT Received request for refill of the following [...] - 1.22 mg/dL Final documented in this encounterSt. Mary'S [facility]05-02-2023 Miscellaneous Notes* Telephone Encounter - Bryanna Davidson - 08/31/2022 8:57 AM EDT Call from patient requesting refill. Requested Prescriptions Pending Prescriptions Disp Refills apixaban (ELIQUIS) 5 mg tab(s) 180 tablet 3 Sig: Take 1 tablet by mouth twice daily. Patient last seen 04/13/22 Bryanna Davidson documented in this encounterSt. Mary'S [facility]04-[facility]23 Hospital Discharge instructions Follow Up Care 08/19/2022 15:50:16 With:Jevon Pantoja DO, ONC Address: [facility] [place] [address] [phone] Fax Business (1) When: Unknown [facility]03-28-2023 Hospital Discharge instructions Patient Education 07/27/2022 11:45:36 Benign Prostatic Hyperplasia Benign Prostatic Hyperplasia Benign prostatic hyperplasia (BPH) is an enlarged prostate gland that is caused by the normal agingprocess and not by cancer. The prostate is [...] urethra. Follow these instructions at home: Take ylxt-sab-hvowzpv and prescription medicines only as told by [...] 04/18/2006 Document Revised: 03/13/2019 Document Reviewed: 05/23/2017 [employer] Patient Education 2020 [employer] Follow Up Care 01/26/2022 11:15:57 With:JOYCE JARVIS, Irena Dejesus, URL Address: [address] [place] [address]- When: Unknown [facility] 03-21-2023 Miscellaneous Notes* Telephone Encounter - Kristina Sanders Pss - 07/20/2022 8:57 AM EDT Spoke with patient. He is scheduled for a Nurse Visit for an EKG on 07/21 @ 1:30pm at [facility]. * Telephone Encounter - Trixie Ely RN - 07/19/2022 2:53 PM EDT Called and left detailed message for him and included openings for nurse visits on Tuesday. Askedhim to call us and make sure he is scheduled for it on Tuesday, as we must see the EKG before we can send his refill over. * Telephone Encounter - Moustapha Melvin APRN.CNP - 07/19/2022 2:41 PM EDT Reviewed EKGs with Dr. Rosa. He would like a repeat EKG. If possible to do in the office tomorrow, Tuesday or , I can personally review this and send prescription. Need to ensure that QTcis acceptable prior to providing refills. Moustapha Melvin APRN.FOAMITE MIXER * Telephone Encounter - Caryl Jimenez - 07/16/2022 3:15 PM EDT Patient called procedure space scheduler, advising he will run out of Tikosyn as of 07/23/2022. Would likerefills called to the [facility] on account. documented in this encounterSt. Mary'S [facility]02-14-2023 NotePROCEDURE: XR FOOT LT MIN 3 VIEWS COMPARISON: None. HISTORY: C/O: [...] Electronically authenticated by: BOUBACAR CORDERO Date: 2022-06-15 11:35[facility]01-24-2023 Miscellaneous Notes* Telephone Encounter - Lucie Junior RN - 05/25/2022 5:31 PM EST Returned call, device clinic does not directly work with Watchman implants. Left voicemail with patient for [employer] as ID cards would come from them. * Telephone Encounter - Bryanna Davidson - 05/25/2022 3:36 PM EST May 25, 2022 Patient Contact Number: [phone] (home) [phone] (cell) Patient last seen within the last year Yes Reason For Call: Patient had the watchman implanted on 05/19/22 the card that he received states he had it implanted on 05/19/24 (the year is wrong) will this be an issue or will he have to get another card. Bryanna documented in this encounterSt. Mary'[facility] History of Present illness Narrative* Ny Vásquez RN - 05/18/2022 2:48 PM EST THE FOLLOWING WAS EVALUATED Motivation To Learn: [...] Explanation of procedure Sedation level during procedure medication instructions from EP lab request: Start apixaban 2 weeks prior. Travel instructions/restrictions Scheduling information Possible same day discharge versus overnight hospital stay Check out time Family waiting area Physician contact with family after procedure Post Procedure Expectations reviewed: Inpatient hospital stay Post procedure antiarrhythmics and anticoagulation will be discussed with Physician, nurse practitioner or Physician computer lab assistant upon discharge Instructions for transmitting EKG to Monitoring Center 3 month follow up instructions Contact number for information and questions Patient Evaluation: Verbalizes understanding Follow Up Plan: Follow up as directed by MD. Supplemental Material Given: Written Material Patient education regarding radiation exposure. Instructed By Ny Vásquez RN, RN. In Department of CARDIOLOGY. documented in this encounterSt. [facility] History of Present illness Narrative* Flory Maravilla MD - 05/18/2022 1:45 PM EST Images from the original note were not included. [facility] [place] [facility] Department of Cardiovascular Medicine SECTION OF CARDIOVASCULAR IMAGING OUTPATIENT VISIT DATE May 18, 2022 OUTPATIENT VISIT TYPE CONSULTATION PRIMARY CARE PHYSICIAN: Scarlett Gaviria NP [address] [place] [address] REFERRING PHYSICIAN Kaylah Kemp [address] [facility] [id number] CHIEF COMPLAINT: Patient presents with: Preprocedural evaluation [...] noticed dark stools over the past 5 to6 days, along with slightly more fatigue. Ultimately, he was deemed high bleeding risk and he was referred for watchman evaluation with Dr. Kemp. In terms of symptoms, he complaints of shortness of breath and atypical episodes of anginal lastingseconds, particularly when his hemoglobin is low. He also has noticed intermittent episodes of darkstools since discharge from the hospital in November last year. He denies lightheadedness, dizziness,and near syncope. Denies preamture CAD or SCD. 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 Currently does not exercise. NURSING INTAKE: Mr. Peraza is a 77 year old male from [place], [place], presenting today for cardiac consultation at [facility] Dr. Kaylah Kemp for shared decision [...] for a possible watchman device. He states thatsince his Eliquis was restarted he has noticed that his stool has become black again. He presents today with complaints of shortness of breath at times when his hemoglobin is lower, sharp chest pains that do not last long and are occasional, lower extremity edema, and one syncope episode as listed above. He denies lightheadedness, dizziness, and near syncope. Mr. Peraza was in the [employer] for 4 years. He is now retired from [employer]. He does not follow a specific diet. He does not currently follow a specific exercise regimen. Dr. Kimball and Gianfranco from [place]. . PAST CARDIAC HISTORY: PAST MEDICAL HISTORY [...] LAD CARDIOVERSION 11/14/15 CATHETER, ABLATION A-2003 at [facility] HERNIA REPAIR HX 05/2011 left inguinal PAST [...] by mouth once daily.^Disp: 30 tablet^Rfl: 5 Ldywx-4-LOI-EPA-Fish Oil 1,000 mg (120 mg-180 mg) cap^Take [...] fluticasone (FLONASE) 50 mcg/actuation nasal spray^Use 1 [place] in each nostril once daily.^Disp: ^Rfl: 0 coenzyme Q10 100 mg cap^Take 100 mg by mouth once daily. ^Disp: ^Rfl: LORATADINE (CLARITIN ORAL)^Take 1 tablet by mouth once daily.^Disp: ^Rfl: albuterol HFA (PROAIR HFA) 90 mcg/actuation inhaler^Inhale 2 Puffs as instructed every 6 hours as needed.^Disp: 1 Inhaler^Rfl: 0 Gmlmzuynxvv-Mhqcpgwtx-Wku C-Mn 500-400 mg cap^Take 1 capsule by [...] Negative for: Weakness, Paralysis, Numbness, Tingling, Tremor, Nervousness,Depressed mood, Memory loss SKIN: Negative for: Rashes, Itching HEMATOLOGICAL/LYMPHATIC: Negative for: Easy bruising , Easy bleeding ENDOCRINE: Negative for: Heat or cold intolerance, Excessive sweating, Frequent urination, Frequentthirst PHYSICAL EXAMINATION: BP 136/81 (BP Site: Right [...] bruits, carotids have a normal upstroke, no palpablethyromegaly. Lungs: Clear to auscultation bilaterally, wheezing on [...] the prior echocardiographic exam performed on 02/27/2020 ([facility]). On direct image comparison, mid ascending [...] Department of Cardiovascular Medicine [facility] [place] [facility] / documented in this encounterSt. Mary'[facility]01-06-[facility]23 Miscellaneous Notes* Telephone Encounter - Lynn Purdy MA - 05/07/2022 1:08 PM EST Received request for refill of the following [...] - 1.22 mg/dL Final documented in this encounterSt. Mary'[facility]12-19-2022 Miscellaneous Notes* Telephone Encounter - Patricia Marie RN - 04/19/2022 1:16 PM EST The date of 05/19/22 with offered & accepted by patient. Needs Shared Decision Making appointment with Clinical Cardiology staff, Echo, ECG, pre-op Covid-19test & Labs (CBC,BMP,T&S) one day prior to procedure date - please schedule appointments after 10 am. Medication instructions given, as indicated below. Stated understanding. * Telephone Encounter - Patricia Marie RN - 04/19/2022 1:16 PM EST ----- Message from Kaylah Kemp MD sent at 04/16/2022 9:44 AM EST ----- Regarding: Watchman Please schedule for Watchman with me. Start apixaban 2 weeks prior. Needs shred decision making and echo. THank you. Kaylah Kemp MD documented in this encounterSt. Mary'[facility]12-14-2022 Miscellaneous Notes* Telephone Encounter - [facility] - 04/14/2022 9:30 AM EST Images from the original note were not included. April 14, 2022 Patient Contact Number: [phone] (home) [phone] (cell) Patient last seen within the last year: Yes Reason For Call: Other Issue: Note received from Mr. Peraza's GI physician that he may resume blood thinners for planned procedure with Dr. Kemp. Note scanned into ethology drive. Rachel [id number] documented in this encounterSt. Mary'[facility]12-13-2022 History of Present illness Narrative* Kaylah Kemp MD - 04/13/2022 8:46 AM EST Images from the original note were not included. [facility] [place] [facility] Department of Cardiovascular Medicine SECTION OF CARDIAC PACING and ELECTROPHYSIOLOGY OUTPATIENT VISIT DATE April 13, 2022 OUTPATIENT VISIT TYPE CONSULTATION PRIMARY CARE PHYSICIAN: Scarlett Gaviria NP [address] [place] [id number] REFERRING PHYSICIAN SELF CHIEF COMPLAINT: AF Watchman [...] done and failed to find a source ofbleeding. Colonoscopy was not done after the bleed. [...] CARDIOVERSION 11/14/15 CATHETER, ABLATION A-Fib, 2003 at [facility] HERNIA REPAIR HX 05/2011 left inguinal PAST [...] TAKE 1 TABLET BY MOUTH ONCE DAILY Xufof-8-HGM-EPA-Fish Oil 1,000 mg (120 mg-180 mg) cap [...] (FLONASE) 50 mcg/actuation nasal spray Use 1 [place] in each nostril once daily. coenzyme Q10 100 mg cap Take 100 mg by mouth once daily. LORATADINE (CLARITIN ORAL) Take 1 tablet by mouth once daily. CALCIUM CARBONATE/VITAMIN D3 (CALCIUM + D ORAL) Take 1 tablet by mouth twice daily. albuterol HFA (PROAIR HFA) 90 mcg/actuation inhaler Inhale 2 Puffs as instructed every 6 hours as needed. Tsmpxdlvxnh-Qljnxpkby-Uak C-Mn 500-400 mg cap Take 1 capsule [...] Change in bowel habits -n, Blood in stool- y, Dark black stools -y. Neurological/Psychiatric: Weakness, [...] and confirmed and edited the above information asobtained by others. PHYSICAL EXAMINATION: BP 153/94 Pulse [...] done and failed to find a source ofbleeding. Colonoscopy was not done after the bleed. [...] INFORMATION: Kaylah Kemp MD documented in this encounterSt. Mary'[facility]10-20-2022 Hospital Discharge instructions Follow Up Care 02/18/2022 14:18:00 With:Jevon Pantoja Address: [facility] [place] [phone] Fax Business (1) When: Unknown Comments:injectafer x 2 doses. cbc, cmp, iron studies q3mos f/u in a year. [facility]09-27-20[facility] Hospital Discharge instructions Patient Education 01/26/2022 10:57:16 Benign Prostatic Hyperplasia Benign Prostatic Hyperplasia Benign prostatic hyperplasia (BPH) is an enlarged prostate gland that is caused by the normal agingprocess and not by cancer. The prostate is [...] urethra. Follow these instructions at home: Take pnhc-bgf-pfxsnud and prescription medicines only as told by [...] 04/18/2006 Document Revised: 03/13/2019 Document Reviewed: 05/23/2017 ElseNet[employer] Patient Education 2020 [employer] Follow Up Care 12/30/2021 10:17:50 With:JOYCE JARVIS, Irena Dejesus, URL Address: [address] [place] [phone]- When: Unknown [facility] 09-02-2022 Miscellaneous Notes* Telephone Encounter - Caryl Jimenez - 01/01/2022 3:20 PM EDT Patient called procedure space scheduler, advised he received the earlier message from Dr. Rosa' nurse. Patient requested lab orders be faxed to [facility] while he was there getting an injection. Faxed and confirmed with tech/patient as being received. Results will be faxed to [phone] once complete. * Telephone Encounter - Trixie Ely RN - 01/01/2022 9:23 AM EDT Called and left voicemail message for the patient per below message. Will try reaching him again shy later time to be sure he got the message. * Telephone Encounter - Moustapha Melvin APRN.CNP - 01/01/2022 7:07 AM EDT Reviewed below. Upon reviewing discharge summary, patient [...] have placed orders for this. Moustapha Melvin APRN.CNP * Telephone Encounter - Caryl Jimenez - 12/31/2021 12:50 PM EDT Patient left a voice message on procedure space scheduler's number regarding his recent 12/20/2021 hospital admission at [facility]. States he presented to the emergency room with dizziness and having shakes. Blood count was 5.3 and received 4 units of blood . Taken off Lasix and Eliquis, is inquiring about when he should return to the medications. Patient has a 01/06 appointment in office with Dr. Rosa, per previous encounter the [facility] records from this stay have been scanned into Sounder. Please contact patient today at [phone] cell, granting permission to leave a message. Routing to nursing to triage the call and then seek FOAMITE MIXER recommendation. documented in this encounterSt. Mary'[facility]08-26-2022 Miscellaneous Notes* Telephone Encounter - Lynn Purdy MA - 12/25/2021 8:02 AM EDT Received recent hospital stay records from [facility]. Next appt with Dr. Rosa 01/06/2022. Sent for scanning. documented in this encounterSt. Mary'S [facility]08-24-[facility]22 Hospital Discharge instructions Follow Up Care 12/23/2021 12:37:02 With:Jevon Pantoja Address: [facility] [address] [place] [address]. [place] [phone] Fax Business (1) When: Unknown Comments:f/u in 8 wks. cbc weeklyiron studies monthlygive two doses of injectafer 750mg. refer to Dr. Bolaños. [facility]08-02-2022 Hospital Discharge instructions Patient Education 12/01/2021 10:23:38 Gastroesophageal Reflux Disease, Adult Gastroesophageal Reflux Disease, Adult Gastroesophageal reflux (SHANTE) happens when acid from the stomach flows up into the tube that connects the mouth and the stomach (esophagus). Normally, food travels down the esophagus and stays in thestomach to be digested. However, when a person [...] it does not close properly, and that allowsfood and stomach acid to go back up [...] powder, vinegar, hot sauces, and barbecue sauce. ?[place] fruit juices and citrus fruits, such as oranges, maribell, and limes. ?Tomato-based foods, such as red sauce, chili, salsa, and pizza with red sauce. ?Fried and fatty foods, such as donuts, vietnamese fries, potato chips, and high-fat dressings. ?High-fat [...] contain nicotine or tobacco, such as cigarettes, e- cigarettes, and chewing tobacco. If you need help [...] to any changes in your symptoms. Take gxmk-jwm-suzvmhh and prescription medicines only as told by [...] you have new or worsening symptoms. Take nlvw-cgp-tvqtjgl and prescription medicines only as told by [...] 01/26/2006 Document Revised: 10/25/2018 Document Reviewed: 10/25/2018 [employer] Patient Education [employer]. Follow Up Care 01/15/2021 10:07:12 With:Patricia Le CNP Address: When:6 months [facility] 07-07-2022 Hospital Discharge instructions Follow Up Care 11/05/2021 11:31:34 With:Jevon Pantoja Address: [place] [address] [address] [facility] [place] [address]- [phone] Fax Business (1) When: Unknown Comments:monthly cbc cmp, iron studies. f/u 6 months. [facility]07-05-2022 Hospital Discharge instructions Follow Up Care 11/03/2021 14:24:03 With:Jevon Pantoja Address: [place] [address] [place] [address] [phone] Fax Business (1) When: Unknown Comments:cbc, cmp, iron studies, b12, folate, methylmalonic acid, spep, sflc, simmunofixation, esr, ldh today. cbc prior to f/u in 3 months. [facility]06-22-2022 Miscellaneous Notes* Telephone Encounter - Chika Morin APRN.JACQUELINE EUBANKS - 10/21/2021 4:02 PM EDT The following approved medication requests have been transmitted electronically. Signed Prescriptions Disp Refills apixaban (ELIQUIS) 5 mg tab(s) 180 tablet 3 Sig: Take 1 tablet by mouth twice daily. MIKE: No Authorizing Provider: CHIKA MORIN APRN.JACQUELINE EUBANKS * Telephone Encounter - Keily Ford LPN - 10/21/2021 10:23 AM EDT Received request for refill of the following [...] 03/09/2021 0.87 0.73 - 1.22 mg/dL Final * Telephone Encounter - Maria Antonia Dougherty - 10/20/2021 12:41 PM EDT Patient has been identified by name and date of : Yes Pending Prescriptions Disp Refills APIXABAN 5 MG TABLET 180 tablet 3 Sig: Take 1 tablet by mouth twice daily. MIKE: No RX INSTRUCTIONS: Patient aware RX will be sent to pharmacy. No need to notify patient. Maria Antonia Rock Pss documented in this encounterSt. Mary'[facility]06-[facility]-2022 Miscellaneous Notes* Telephone Encounter - Moustapha Melvin APRN.CNP - 10/19/2021 3:36 PM EDT The following approved medication requests have been transmitted electronically. Signed Prescriptions Disp Refills atenolol (TENORMIN) 50 mg tablet 90 tablet 3 Sig: Take 1 tablet by mouth once daily. MIKE: No Authorizing Provider: ODALYS ROSA Ordering User: MOUSTAPHA MELVIN APRN.CNP * Telephone Encounter - Keily Sageangelia GAY - 10/16/2021 8:56 AM EDT Received request for refill of the following [...] 03/09/2021 0.87 0.73 - 1.22 mg/dL Final * Telephone Encounter - Jumana Reddypeter - 10/15/2021 4:16 PM EDT Patient calling to request a refill on the medication(s) below: Pending Prescriptions Disp Refills ATENOLOL 50 MG TABLET 90 tablet 3 Sig: Take 1 tablet by mouth once daily. MIKE: No Last seen in office: 07/08/2021 NATHAN Wagoner [facility] Subcontract Manager documented in this encounterSt. Mary'S [facility] Hospital Discharge instructions Patient Education 09/15/2021 10:52:21 Benign Prostatic Hyperplasia Benign Prostatic Hyperplasia Benign prostatic hyperplasia (BPH) is an enlarged prostate gland that is caused by the normal agingprocess and not by cancer. The prostate is [...] urethra. Follow these instructions at home: Take qmhv-zkv-hpdwzta and prescription medicines only as told by [...] 04/18/2006 Document Revised: 03/13/2019 Document Reviewed: 05/23/2017 [employer] Patient Education 2020 [employer]. 09/15/2021 10:52:18 Calorie Counting for Weight Loss [...] sure to eat fewer calories than your bodyneeds, you should lose weight. Ask your health care provider what a healthy weight is for you. For calorie counting to work, you will need to eat the right number of calories in a day in order to lose a healthy amount of weight per week. A dietitian can help you determine how many calories youneed in a day and will give you suggestions on how to reach your calorie goal. A healthy amount of weight to lose per week is usually 1 2 lb (0.5 0.9 kg). This usually means thatyour daily calorie intake should be reduced by [...] label. If a food does not have aNutrition Facts label, try to look up the calories online or ask your dietitian for help. Remember that calories are listed per serving. If you choose to have more than one serving of a food, you will have to multiply the calories per serving by the amount of servings you plan to eat. Forexample, the label on a package of bread [...] you how many calories you have left forthe day to meet your goal. What are [...] fat free foods. These foods sometimes have thesame amount of calories or more calories than the full fat versions. They also often have added sugar, starch, or salt, to make up for flavor that was removed with the fat. Find a way of tracking calories that works for you. Get creative. Try different apps or programs ifwriting down calories does not work for you. What are some portion control tips? Know how many calories are in a serving. This will help you know how many servings of a certain food you can have. Use a measuring cup to measure serving sizes. You could also try weighing out portions on a kitchenscale. With time, you will be able to [...] serving size may be smaller than what youare used to eating. Check the source of the calories. Make sure the food you are eating is high in vitamins and proteinand low in saturated and trans fats. Shopping [...] steamed. Stay away from items that are buttered,battered, fried, or served with cream sauce. Items [...] a serving of cooked rice is cup orabout the size of half a baseball. Knowing serving sizes will help you be aware of how much food you are eating at restaurants. The list below tells you how big or small some common portion sizes arebased on everyday objects: ?1 oz 4 stacked [...] label. If a food does not have aNutrition Facts label, try to look up the [...] 04/18/2006 Document Revised: 01/05/2019 Document Reviewed: 03/18/2017 ElseNet[employer] Patient Education 2020 [employer]. Follow Up Care 07/13/2021 11:43:44 With:JOYCE JARVIS, Irena Deejsus, URL Address: [address] [place] [address] [phone] When:12/16/2021 [facility] 04-15-2022 Miscellaneous Notes* Telephone Encounter - Caryl Jimenez - 08/14/2021 2:45 PM EDT Office leasing representative, Carmen from [facility] called space scheduler advising patient is being scheduled for an EGD and is faxing over a request to have patient hold the Eliquis for 2 days prior. Received faxed clearance and offered to Wilder Salazar LPN to address. documented in this encounterSt. Mary'[facility] Hospital Discharge instructions Patient Education 07/27/2021 10:38:07 Colonoscopy, Care After Surgery Salam (CUSTOM) Colonoscopy Care After Surgery Please read the instructions outlined below and refer to this sheet in the next few weeks. These discharge instructions provide you with general information on caring for yourself after you leave thespital. Your doctor may also give you specific [...] Heavy or fried foods are harder to digestand may make you feel nauseated (sick to [...] Up Care 07/15/2021 11:13:52 With:Florentino BOLAÑOS Address: [address] [place] [address]. [address] [place] [address] Business (1) When: Unknown Comments:Off ice will date and time of follw-up appt. [facility] Future Appointments Appointment Date:09/15/2021 09:45:00 AM Scheduled Provider:Irena COOK MD Location:[facility] Appointment Type:URO Office Visit Appointment Date:12/01/2021 10:00:00 AM Scheduled Provider:Patricia Le CNP Location:[facility] Appointment Type:[facility] Future Appointments Appointment Date:08/14/2021 12:40:00 PM Scheduled Provider:Patricia Le CNP Location:[facility] Appointment Type:[facility] Follow Up Appointment Date:09/15/2021 09:45:00 AM Scheduled Provider:Irena COOK MD Location:[facility] Appointment Type:URO Office Visit Appointment Date:12/01/2021 10:00:00 AM Scheduled Provider:Patricia Le CNP Location:[facility] Appointment Type:[facility] Future Appointments Appointment Date:12/01/2021 10:00:00 AM Scheduled Provider:Patricia Le CNP Location:[facility] Appointment Type:BADH Follow Up Appointment Date:12/22/2021 12:45:00 PM Scheduled Provider:Irena COOK MD Location:[facility] Appointment Type:URO Office Visit [facility] Evaluation + Plan note Future Appointments Appointment Date:12/01/2021 10:00:00 AM Scheduled Provider:Patricia Le CNP Location:[facility] Appointment Type:BADH Follow Up Appointment Date:12/22/2021 12:45:00 PM Scheduled Provider:Irena COOK MD Location:[facility] Appointment Type:URO Office Visit Appointment Date:02/04/2022 12:30:00 PM Scheduled Provider:Jevon Pantoja DO Location:.ONCOLOGY Appointment Type:ONC Office Visit 15 (FT) Diagnostic Tests Pending * Methylmalonic Acid 11/05/21 * Free K+L Lt Chains,Qn,S 11/05/21 * SRINIVAS and PE, Serum 11/05/21 Future Scheduled Tests Laboratory* CBC w/ Auto Diff 02/05/22 [facility] Future Appointments Appointment Date:12/22/2021 12:45:00 PM Scheduled Provider:Irena COOK MD Location:[facility] Appointment Type:URO Office Visit Appointment Date:02/04/2022 12:30:00 PM Scheduled Provider:Jevon Pantoja DO Location:FT.ONCOLOGY Appointment Type:ONC Office Visit 15 (FT) Appointment Date:05/04/2022 10:40:00 AM Scheduled Provider:Patricia Le CNP Location:[facility] Appointment Type:BAD Follow Up Future Scheduled Tests Laboratory* CBC w/ Auto Diff 02/05/22 [facility] Evaluation + Plan note Future Appointments Appointment Date:02/18/2022 01:15:00 PM Scheduled Provider:Jevon Pantoja DO Location:[facility].ONCOLOGY Appointment Type:ONC Office Visit 15 (FT) Appointment Date:05/04/2022 10:40:00 AM Scheduled Provider:Patricia Le CNP Location:[facility] Appointment Type:BAD Follow Up Future Scheduled Tests Laboratory* CBC w/ Auto Diff 02/05/22 [facility] Future Appointments Appointment Date:01/06/2022 09:00:00 AM Scheduled Provider:Florentino BOLAÑOS MD Location:[facility] Appointment Type:BADH Follow Up Appointment Date:01/08/2022 11:00:00 AM Scheduled Provider: [facility] Type:ONC Injectafer (FT) Appointment Date:01/26/2022 10:00:00 AM Scheduled Provider:Irena COOK MD Location:[facility] Appointment Type:URO Office Visit Appointment Date:02/18/2022 01:15:00 PM Scheduled Provider:Jevon Pantoja DO [facility] Type:ONC Office Visit 15 (FT) Appointment Date:05/04/2022 10:40:00 AM Scheduled Provider:Patricia Le CNP Location:[facility] Appointment Type:BAD Follow Up Future Scheduled Tests Laboratory* CBC w/ Auto Diff 01/06/22 * CBC w/ Auto Diff 01/13/22 * CBC w/ Auto Diff 01/20/22 * CBC w/ Auto Diff 01/27/22 * CBC w/ Auto Diff 02/03/22 * CBC w/ Auto Diff 02/10/22 * CBC w/ Auto Diff 02/17/22 * CBC w/ Auto Diff 02/24/22 * CBC w/ Auto Diff 03/03/22 * CBC w/ Auto Diff 03/10/22 * CBC w/ Auto Diff 03/17/22 * Ferritin 01/20/22 * Ferritin 02/19/22 * Ferritin 03/22/22 * Iron Level 01/20/22 * Iron Level 02/19/22 * Iron Level 03/22/22 * Iron Percent Saturation 01/20/22 * Iron Percent Saturation 02/19/22 * Iron Percent Saturation 03/22/22 [facility] Future App[facility]ments Appointment Date:01/08/2022 11:00:00 AM Scheduled Provider: [facility] Type:ONC Injectafer (FT) Appointment Date:01/26/2022 10:00:00 AM Scheduled Provider:Irena COOK MD Location:[facility] Appointment Type:URO Office Visit Appointment Date:02/18/2022 01:15:00 PM Scheduled Provider:Jevon Pantoja DO [facility] Type:ONC Office Visit 15 (FT) Appointment Date:05/04/2022 10:40:00 AM Scheduled Provider:Patricia Le CNP [place] Appointment Type:BADH Follow Up Future Scheduled Tests Laboratory* CBC w/ Auto Diff 01/13/22 * CBC w/ Auto Diff 01/20/22 * CBC w/ Auto Diff 01/27/22 * CBC w/ Auto Diff 02/03/22 * CBC w/ Auto Diff 02/10/22 * CBC w/ Auto Diff 02/17/22 * CBC w/ Auto Diff 02/24/22 * CBC w/ Auto Diff 03/03/22 * CBC w/ Auto Diff 03/10/22 * CBC w/ Auto Diff 03/17/22 * Ferritin 01/20/22 * Ferritin 02/19/22 * Ferritin 03/22/22 * Iron Level 01/20/22 * Iron Level 02/19/22 * Iron Level 03/22/22 * Iron Percent Saturation 01/20/22 * Iron Percent Saturation 02/19/22 * Iron Percent Saturation 03/22/22 [facility] Evaluation + Plan note Future Appointments Appointment Date:01/26/2022 10:00:00 AM Scheduled Provider:Irena COOK MD Location:[facility] Appointment Type:URO Office Visit Appointment Date:02/18/2022 01:15:00 PM Scheduled Provider:Jevon Pantoja DO [facility] Type:ONC Office Visit 15 (FT) Appointment Date:05/04/2022 10:40:00 AM Scheduled Provider:Patricia Le CNP Location[place] Appointment Type:BADH Follow Up Future Scheduled Tests Laboratory* CBC w/ Auto Diff 01/13/22 * CBC w/ Auto Diff 01/20/22 * CBC w/ Auto Diff 01/27/22 * CBC w/ Auto Diff 02/03/22 * CBC w/ Auto Diff 02/10/22 * CBC w/ Auto Diff 02/17/22 * CBC w/ Auto Diff 02/24/22 * CBC w/ Auto Diff 03/03/22 * CBC w/ Auto Diff 03/10/22 * CBC w/ Auto Diff 03/17/22 * Ferritin 01/20/22 * Ferritin 02/19/22 * Ferritin 03/22/22 * Iron Level 01/20/22 * Iron Level 02/19/22 * Iron Level 03/22/22 * Iron Percent Saturation 01/20/22 * Iron Percent Saturation 02/19/22 * Iron Percent Saturation 03/22/22 [facility] Appointment Date:01/26/2022 10:00:00 AM Scheduled Provider:Irena COOK MD Location:[facility] Appointment Type:URO Office Visit Appointment Date:02/18/2022 01:15:00 PM Scheduled Provider:Jevon Pantoja DO [facility] Type:ONC Office Visit 15 (FT) Appointment Date:05/04/2022 10:40:00 AM Scheduled Provider:Patricia Le CNP [place] Appointment Type:[facility] Follow Up Future Scheduled Tests Laboratory* CBC w/ Auto Diff 01/20/22 * CBC w/ Auto Diff 01/27/22 * CBC w/ Auto Diff 02/03/22 * CBC w/ Auto Diff 02/10/22 * CBC w/ Auto Diff 02/17/22 * CBC w/ Auto Diff 02/24/22 * CBC w/ Auto Diff 03/03/22 * CBC w/ Auto Diff 03/10/22 * CBC w/ Auto Diff 03/17/22 * Ferritin 02/19/22 * Ferritin 03/22/22 * Iron Level 02/19/22 * Iron Level 03/22/22 * Iron Percent Saturation 02/19/22 * Iron Percent Saturation 03/22/22 Radiology* XR Abdomen 1 View 01/18/22 [facility] Evaluation + Plan note Future Appointments Appointment Date:01/26/2022 10:00:00 AM Scheduled Provider:Irena COOK MD Location:[facility] Appointment Type:URO Office Visit Appointment Date:02/18/2022 01:15:00 PM Scheduled Provider:Jevon Pantoja DO Location:[facility] Appointment Type:ONC Office Visit 15 (FT) Appointment Date:05/04/2022 10:40:00 AM Scheduled Provider:Patricia Le CNP Location[place] [place] [facility] Appointment Type:BAD Follow Up Future Scheduled Tests Laboratory* CBC w/ Auto Diff 01/27/22 * CBC w/ Auto Diff 02/03/22 * CBC w/ Auto Diff 02/10/22 * CBC w/ Auto Diff 02/17/22 * CBC w/ Auto Diff 02/24/22 * CBC w/ Auto Diff 03/03/22 * CBC w/ Auto Diff 03/10/22 * CBC w/ Auto Diff 03/17/22 * Ferritin 02/19/22 * Ferritin 03/22/22 * Iron Level 02/19/22 * Iron Level 03/22/22 * Iron Percent Saturation 02/19/22 * Iron Percent Saturation 03/22/22 [facility] Appointment Date:02/18/2022 01:15:00 PM Scheduled Provider:Jevon Pantoja DO [facility] App[facility] Type:ONC Office Visit 15 (FT) Appointment Date:05/04/2022 10:40:00 AM Scheduled Provider:Patricia Le CNP Location[place] [place] [facility] Appointment Type:BAD Follow Up Appointment Date:07/27/2022 10:45:00 AM Scheduled Provider:Irena COOK MD Location:[facility] Appointment Type:URO Office Visit Future Scheduled Tests Laboratory* PSA Free & Total 05/02/22 * CBC w/ Auto Diff 01/27/22 * CBC w/ Auto Diff 02/03/22 * CBC w/ Auto Diff 02/10/22 * CBC w/ Auto Diff 02/17/22 * CBC w/ Auto Diff 02/24/22 * CBC w/ Auto Diff 03/03/22 * CBC w/ Auto Diff 03/10/22 * CBC w/ Auto Diff 03/17/22 * Ferritin 02/19/22 * Ferritin 03/22/22 * Iron Level 02/19/22 * Iron Level 03/22/22 * Iron Percent Saturation 02/19/22 * Iron Percent Saturation 03/22/22 Radiology* XR Abdomen 1 View 01/25/22 [facility] Evaluation + Plan note Future Appointments Appointment Date:02/18/2022 01:15:00 PM Scheduled Provider:Jevon Pantoja DO Location:[facility] Appointment Type:ONC Office Visit 15 (FT) Appointment Date:03/11/2022 10:00:00 AM Scheduled Provider:Patricia Le CNP Location[place] [place] [facility] Appointment Type:BAD Follow Up Appointment Date:05/04/2022 10:40:00 AM Scheduled Provider:Patricia Le CNP Location[place] [place] [facility] Appointment Type:[facility] Follow Up Appointment Date:07/27/2022 10:45:00 AM Scheduled Provider:Irena COOK MD Location:[facility] Appointment Type:URO Office Visit Future Scheduled Tests Laboratory* PSA Free & Total 05/02/22 * CBC w/ Auto Diff 01/27/22 * CBC w/ Auto Diff 02/10/22 * CBC w/ Auto Diff 02/17/22 * CBC w/ Auto Diff 02/24/22 * CBC w/ Auto Diff 03/03/22 * CBC w/ Auto Diff 03/10/22 * CBC w/ Auto Diff 03/17/22 * Ferritin 02/19/22 * Ferritin 03/22/22 * Iron Level 02/19/22 * Iron Level 03/22/22 * Iron Percent Saturation 02/19/22 * Iron Percent Saturation 03/22/22 Radiology* XR Abdomen 1 View 01/25/22 [facility] Evaluation + Plan note Future Appointments Appointment Date:05/04/2022 10:40:00 AM Scheduled Provider:Patricia Le CNP Location[place] [place] [facility] Appointment Type:[facility] Follow Up Appointment Date:05/25/2022 01:00:00 PM Scheduled Provider:Patricia Le CNP Location[place] [place] [facility] Appointment Type:[facility] Follow Up Appointment Date:07/27/2022 10:45:00 AM Scheduled Provider:Irena COOK MD Location:[facility] Appointment Type:URO Office Visit Appointment Date:08/19/2022 01:30:00 PM Scheduled Provider:Jevon Pantoja DO Location:.[facility]COL[facility] Appointment Type:ONC Office Visit 15 (FT) Future Scheduled Tests Laboratory* PSA Free & Total 05/02/22 * CBC w/ Auto Diff 03/21/22 * CBC w/ Auto Diff 04/20/22 * CBC w/ Auto Diff 05/21/22 * CBC w/ Auto Diff 06/21/22 * CBC w/ Auto Diff 07/19/22 * CBC w/ Auto Diff 08/19/22 * Comprehensive Metabolic Panel 03/21/22 * Comprehensive Metabolic Panel 04/20/22 * Comprehensive Metabolic Panel 05/21/22 * Comprehensive Metabolic Panel 06/21/22 * Comprehensive Metabolic Panel 07/19/22 * Comprehensive Metabolic Panel 08/19/22 * Ferritin 03/21/22 * Ferritin 04/20/22 * Ferritin 05/21/22 * Ferritin 06/21/22 * Ferritin 07/19/22 * Ferritin 08/19/22 * Iron Level 03/21/22 * Iron Level 04/20/22 * Iron Level 05/21/22 * Iron Level 06/21/22 * Iron Level 07/19/22 * Iron Level 08/19/22 * Iron Percent Saturation 03/21/22 * Iron Percent Saturation 04/20/22 * Iron Percent Saturation 05/21/22 * Iron Percent Saturation 06/21/22 * Iron Percent Saturation 07/19/22 * Iron Percent Saturation 08/19/22 Radiology* XR Abdomen 1 View 01/25/22 [facility] Appointment Date:07/15/2022 02:00:00 PM Scheduled Provider:Florentino BOLAÑOS MD Location[place] [place] [facility] Appointment Type:BADH Follow Up Appointment Date:07/27/2022 10:45:00 AM Scheduled Provider:Irena COOK MD Location:[facility] Appointment Type:URO Office Visit Appointment Date:08/19/2022 01:30:00 PM Scheduled Provider:Jevon Pantoja DO [facility]oint[facility] Type:ONC Office Visit 15 (FT) Future Scheduled Tests Laboratory* PSA Free & Total 05/02/22 * CBC w/ Auto Diff 04/20/22 * CBC w/ Auto Diff 05/21/22 * CBC w/ Auto Diff 06/21/22 * CBC w/ Auto Diff 07/19/22 * CBC w/ Auto Diff 08/19/22 * Comprehensive Metabolic Panel 04/20/22 * Comprehensive Metabolic Panel 05/21/22 * Comprehensive Metabolic Panel 06/21/22 * Comprehensive Metabolic Panel 07/19/22 * Comprehensive Metabolic Panel 08/19/22 * Ferritin 04/20/22 * Ferritin 05/21/22 * Ferritin 06/21/22 * Ferritin 07/19/22 * Ferritin 08/19/22 * Iron Level 04/20/22 * Iron Level 05/21/22 * Iron Level 06/21/22 * Iron Level 07/19/22 * Iron Level 08/19/22 * Iron Percent Saturation 04/20/22 * Iron Percent Saturation 05/21/22 * Iron Percent Saturation 06/21/22 * Iron Percent Saturation 07/19/22 * Iron Percent Saturation 08/19/22 Radiology* XR Abdomen 1 View 01/25/22 [facility] Appointment Date:07/15/2022 02:00:00 PM Scheduled Provider:Florentino BOLAÑOS MD Location[place] [place] [facility] Appointment Type:BADH Follow Up Appointment Date:07/27/2022 10:45:00 AM Scheduled Provider:Irena COOK MD Location:[facility] Appointment Type:URO Office Visit Appointment Date:08/19/2022 01:30:00 PM Scheduled Provider:Jevon Pantoja DO [facility]oint[facility] Type:ONC Office Visit 15 (FT) Diagnostic Tests Pending * Sputum Culture 06/24/22 Future Scheduled Tests Laboratory* PSA Free & Total 05/02/22 * CBC w/ Auto Diff 04/20/22 * CBC w/ Auto Diff 05/21/22 * CBC w/ Auto Diff 06/21/22 * CBC w/ Auto Diff 07/19/22 * CBC w/ Auto Diff 08/19/22 * Comprehensive Metabolic Panel 04/20/22 * Comprehensive Metabolic Panel 05/21/22 * Comprehensive Metabolic Panel 06/21/22 * Comprehensive Metabolic Panel 07/19/22 * Comprehensive Metabolic Panel 08/19/22 * Ferritin 04/20/22 * Ferritin 05/21/22 * Ferritin 06/21/22 * Ferritin 07/19/22 * Ferritin 08/19/22 * Iron Level 04/20/22 * Iron Level 05/21/22 * Iron Level 06/21/22 * Iron Level 07/19/22 * Iron Level 08/19/22 * Iron Percent Saturation 04/20/22 * Iron Percent Saturation 05/21/22 * Iron Percent Saturation 06/21/22 * Iron Percent Saturation 07/19/22 * Iron Percent Saturation 08/19/22 Radiology* XR Abdomen 1 View 01/25/22 [facility] Appointment Date:07/21/2022 08:15:00 PM Scheduled Provider: [facility] Appoint[facility] Type:[employer] Sleep Study SPLIT (FT) Appointment Date:07/27/2022 10:45:00 AM Scheduled Provider:Irena COOK MD Location:[facility] Appointment Type:URO Office Visit Appointment Date:08/19/2022 01:30:00 PM Scheduled Provider:Jevon Pantoja DO [facility] Appoint[facility] Type:ONC Office Visit 15 () Appointment Date:10/14/2022 12:15:00 PM Scheduled Provider:Florentino BOLAÑOS MD Location[place] [place] [facility] Appointment Type:BADH Follow Up Future Scheduled Tests Laboratory* PSA Free & Total 05/02/22 * CBC w/ Auto Diff 04/20/22 * CBC w/ Auto Diff 05/21/22 * CBC w/ Auto Diff 06/21/22 * CBC w/ Auto Diff 07/19/22 * CBC w/ Auto Diff 08/19/22 * CBC w/ Indices 07/15/22 * Comprehensive Metabolic Panel 04/20/22 * Comprehensive Metabolic Panel 05/21/22 * Comprehensive Metabolic Panel 06/21/22 * Comprehensive Metabolic Panel 07/19/22 * Comprehensive Metabolic Panel 08/19/22 * Ferritin 04/20/22 * Ferritin 05/21/22 * Ferritin 06/21/22 * Ferritin 07/19/22 * Ferritin 08/19/22 * Iron Level 04/20/22 * Iron Level 05/21/22 * Iron Level 06/21/22 * Iron Level 07/19/22 * Iron Level 08/19/22 * Iron Percent Saturation 04/20/22 * Iron Percent Saturation 05/21/22 * Iron Percent Saturation 06/21/22 * Iron Percent Saturation 07/19/22 * Iron Percent Saturation 08/19/22 Radiology* XR Abdomen 1 View 01/25/22 [facility] Evaluation + Plan note Future Appointments Appointment Date:07/27/2022 10:45:00 AM Scheduled Provider:Irena COOK MD Location:[facility] Appointment Type:URO Office Visit Appointment Date:08/19/2022 01:30:00 PM Scheduled Provider:Jevon Pantoja DO [facility] Appoint[facility] Type:ONC Office Visit 15 (FT) Appointment Date:10/14/2022 12:15:00 PM Scheduled Provider:Florentino BOLAÑOS MD Location[place] Appointment Type:[facility] Follow Up Future Scheduled Tests Laboratory* PSA Free & Total 05/02/22 * CBC w/ Auto Diff 08/19/22 * CBC w/ Indices 07/20/22 * CBC w/ Indices 10/20/22 * CBC w/ Indices 01/20/23 * CBC w/ Indices 04/21/23 * Comprehensive Metabolic Panel 08/19/22 * Ferritin 08/19/22 * Iron Level 08/19/22 * Iron Percent Saturation 08/19/22 Radiology* XR Abdomen 1 View 01/25/22 [facility] Appointment Date:08/19/2022 01:30:00 PM Scheduled Provider:Jevon Pantoja DO [facility] Appoint[facility] Type:ONC Office Visit 15 (FT) Appointment Date:10/14/2022 12:15:00 PM Scheduled Provider:Florentino BOLAÑOS MD Location:[facility] Appointment Type:[facility] Follow Up Appointment Date:02/02/2023 01:45:00 PM Scheduled Provider:Nghia ROBERSON MD Location:[facility] Appointment Type:URO Office Visit Diagnostic Tests Pending * PSA Total 11/30/22 Future Scheduled Tests Laboratory* PSA Free & Total 05/02/22 * CBC w/ Auto Diff 08/19/22 * CBC w/ Indices 07/20/22 * CBC w/ Indices 10/20/22 * CBC w/ Indices 01/20/23 * CBC w/ Indices 04/21/23 * Comprehensive Metabolic Panel 08/19/22 * Ferritin 08/19/22 * Iron Level 08/19/22 * Iron Percent Saturation 08/19/22 Radiology* XR Abdomen 1 View 01/25/22 [facility] Evaluation + Plan note Future Appointments Appointment Date:10/14/2022 12:15:00 PM Scheduled Provider:Florentino BOLAÑOS MD Location[place] Appointment Type:BADH Follow Up Appointment Date:02/02/2023 01:45:00 PM Scheduled Provider:Nghia ROBERSON MD Location:[facility] Appointment Type:URO Office Visit Appointment Date:08/24/2023 01:45:00 PM Scheduled Provider:Jevon Pantoja DO [facility] Type:ONC Office Visit 15 (FT) Future Scheduled Tests Laboratory* PSA Free & Total 05/02/22 * CBC w/ Auto Diff 11/18/22 * CBC w/ Auto Diff 02/18/23 * CBC w/ Auto Diff 05/21/23 * CBC w/ Auto Diff 08/20/23 * CBC w/ Indices 07/20/22 * CBC w/ Indices 10/20/22 * CBC w/ Indices 01/20/23 * CBC w/ Indices 04/21/23 * Comprehensive Metabolic Panel 11/18/22 * Comprehensive Metabolic Panel 02/18/23 * Comprehensive Metabolic Panel 05/21/23 * Comprehensive Metabolic Panel 08/20/23 * Ferritin 11/18/22 * Ferritin 02/18/23 * Ferritin 05/21/23 * Ferritin 08/20/23 * Iron Level 11/18/22 * Iron Level 02/18/23 * Iron Level 05/21/23 * Iron Level 08/20/23 * Iron Percent Saturation 11/18/22 * Iron Percent Saturation 02/18/23 * Iron Percent Saturation 05/21/23 * Iron Percent Saturation 08/20/23 * Transferrin 11/18/22 * Transferrin 02/18/23 * Transferrin 05/21/23 * Transferrin 08/20/23 Radiology* XR Abdomen 1 View 01/25/22 [facility] Appointment Date:02/02/2023 01:45:00 PM Scheduled Provider:Nghia ROBERSON MD Location:[facility] Appointment Type:URO Office Visit Appointment Date:08/24/2023 01:45:00 PM Scheduled Provider:Jevon Pantoja DO [facility] Appoint[facility] Type:ONC Office Visit 15 (FT) Future Scheduled Tests Laboratory* PSA Free & Total 05/02/22 * CBC w/ Auto Diff 11/18/22 * CBC w/ Auto Diff 02/18/23 * CBC w/ Auto Diff 05/21/23 * CBC w/ Auto Diff 08/20/23 * CBC w/ Indices 07/20/22 * CBC w/ Indices 01/20/23 * CBC w/ Indices 04/21/23 * Comprehensive Metabolic Panel 11/18/22 * Comprehensive Metabolic Panel 02/18/23 * Comprehensive Metabolic Panel 05/21/23 * Comprehensive Metabolic Panel 08/20/23 * Ferritin 11/18/22 * Ferritin 02/18/23 * Ferritin 05/21/23 * Ferritin 08/20/23 * Iron Level 11/18/22 * Iron Level 02/18/23 * Iron Level 05/21/23 * Iron Level 08/20/23 * Iron Percent Saturation 11/18/22 * Iron Percent Saturation 02/18/23 * Iron Percent Saturation 05/21/23 * Iron Percent Saturation 08/20/23 * Transferrin 11/18/22 * Transferrin 02/18/23 * Transferrin 05/21/23 * Transferrin 08/20/23 Radiology* XR Abdomen 1 View 01/25/22 [facility] Appointment Date:02/02/2023 01:45:00 PM Scheduled Provider:Nghia ROBERSON MD Location:[facility] Appointment Type:URO Office Visit Appointment Date:08/24/2023 01:45:00 PM Scheduled Provider:Jevon Pantoja DO [facility]oint[facility] Type:ONC Office Visit 15 (FT) Future Scheduled Tests Laboratory* PSA Free & Total 05/02/22 * CBC w/ Auto Diff 02/18/23 * CBC w/ Auto Diff 05/21/23 * CBC w/ Auto Diff 08/20/23 * CBC w/ Indices 07/20/22 * CBC w/ Indices 01/20/23 * CBC w/ Indices 04/21/23 * Comprehensive Metabolic Panel 02/18/23 * Comprehensive Metabolic Panel 05/21/23 * Comprehensive Metabolic Panel 08/20/23 * Ferritin 02/18/23 * Ferritin 05/21/23 * Ferritin 08/20/23 * Iron Level 02/18/23 * Iron Level 05/21/23 * Iron Level 08/20/23 * Iron Percent Saturation 02/18/23 * Iron Percent Saturation 05/21/23 * Iron Percent Saturation 08/20/23 * Transferrin 02/18/23 * Transferrin 05/21/23 * Transferrin 08/20/23 Radiology* XR Abdomen 1 View 01/25/22 [facility] Appointment Date:02/02/2023 01:45:00 PM Scheduled Provider:Nghia ROBERSON MD Location:[facility] Appointment Type:URO Office Visit Appointment Date:08/24/2023 01:45:00 PM Scheduled Provider:Jevon Pantoja DO Location:.ONCOLOGY Appointment Type:ONC Office Visit 15 (FT) Future Scheduled Tests Laboratory* PSA Free & Total 05/02/22 * CBC w/ Auto Diff 02/18/23 * CBC w/ Auto Diff 05/21/23 * CBC w/ Auto Diff 08/20/23 * CBC w/ Indices 07/20/22 * CBC w/ Indices 01/20/23 * CBC w/ Indices 04/21/23 * Comprehensive Metabolic Panel 02/18/23 * Comprehensive Metabolic Panel 05/21/23 * Comprehensive Metabolic Panel 08/20/23 * Ferritin 02/18/23 * Ferritin 05/21/23 * Ferritin 08/20/23 * Iron Level 02/18/23 * Iron Level 05/21/23 * Iron Level 08/20/23 * Iron Percent Saturation 02/18/23 * Iron Percent Saturation 05/21/23 * Iron Percent Saturation 08/20/23 * Transferrin 02/18/23 * Transferrin 05/21/23 * Transferrin 08/20/23 [facility] Appointment Date:08/17/2023 01:00:00 PM Scheduled Provider:Nghia ROBERSON MD Location:[facility] Appointment Type:URO Office Visit Appointment Date:08/24/2023 01:45:00 PM Scheduled Provider:Jevon Pantoja DO [facility]oint[facility] Type:ONC Office Visit 15 (FT) Future Scheduled Tests Laboratory* PSA Free & Total 05/02/22 * PSA Free & Total 07/01/23 * CBC w/ Auto Diff 02/18/23 * CBC w/ Auto Diff 05/21/23 * CBC w/ Auto Diff 08/20/23 * CBC w/ Indices 07/20/22 * CBC w/ Indices 01/20/23 * CBC w/ Indices 04/21/23 * Comprehensive Metabolic Panel 02/18/23 * Comprehensive Metabolic Panel 05/21/23 * Comprehensive Metabolic Panel 08/20/23 * Ferritin 02/18/23 * Ferritin 05/21/23 * Ferritin 08/20/23 * Iron Level 02/18/23 * Iron Level 05/21/23 * Iron Level 08/20/23 * Iron Percent Saturation 02/18/23 * Iron Percent Saturation 05/21/23 * Iron Percent Saturation 08/20/23 * Transferrin 02/18/23 * Transferrin 05/21/23 * Transferrin 08/20/23 [facility] Evaluation + Plan note Future Appointments Appointment Date:06/24/2023 10:00:00 AM Scheduled Provider:Zuhair Beatty MD Location[place] Appointment Type:BADH Follow Up Appointment Date:08/17/2023 01:00:00 PM Scheduled Provider:Nghia ROBERSON MD Location:[facility] Appointment Type:URO Office Visit Appointment Date:08/24/2023 01:45:00 PM Scheduled Provider:Jevon Pantoja DO [facility]oint[facility] Type:ONC Office Visit 15 (FT) Future Scheduled Tests Laboratory* PSA Free & Total 07/01/23 * CBC w/ Auto Diff 02/18/23 * CBC w/ Auto Diff 08/20/23 * CBC w/ Indices 07/20/22 * CBC w/ Indices 01/20/23 * CBC w/ Indices 04/21/23 * Comprehensive Metabolic Panel 02/18/23 * Comprehensive Metabolic Panel 08/20/23 * Ferritin 02/18/23 * Ferritin 08/20/23 * Iron Level 02/18/23 * Iron Level 08/20/23 * Iron Percent Saturation 02/18/23 * Iron Percent Saturation 08/20/23 * Transferrin 02/18/23 * Transferrin 08/20/23 [facility] Appointment Date:08/24/2023 01:45:00 PM Scheduled Provider:Jevon Pantoja DO [facility] App[facility] Type:ONC Office Visit 15 (FT) Appointment Date:10/26/2023 01:00:00 PM Scheduled Provider:Nghia ROBERSON MD Location:[facility] Appointment Type:URO Office Visit Future Scheduled Tests Laboratory* PSA Free & Total 07/01/23 * CBC w/ Auto Diff 02/18/23 * CBC w/ Auto Diff 08/20/23 * CBC w/ Indices 07/20/22 * CBC w/ Indices 01/20/23 * CBC w/ Indices 04/21/23 * Comprehensive Metabolic Panel 02/18/23 * Comprehensive Metabolic Panel 08/20/23 * Ferritin 02/18/23 * Ferritin 08/20/23 * Iron Level 02/18/23 * Iron Level 08/20/23 * Iron Percent Saturation 02/18/23 * Iron Percent Saturation 08/20/23 * Transferrin 02/18/23 * Transferrin 08/20/23 [facility] Evaluation + Plan note Future Appointments Appointment Date:08/24/2023 01:45:00 PM Scheduled Provider:Jevon Pantoja DO Location:[facility] Appointment Type:ONC Office Visit 15 (FT) Appointment Date:10/26/2023 01:00:00 PM Scheduled Provider:Nghia ROBERSON MD Location:[facility] Appointment Type:URO Office Visit Appointment Date:08/22/2024 10:00:00 AM Scheduled Provider: Location:[facility] Appointment Type:CT Chest (FT) Future Scheduled Tests Laboratory* PSA Free & Total 07/01/23 * CBC w/ Auto Diff 02/18/23 * CBC w/ Indices 01/20/23 * CBC w/ Indices 04/21/23 * Comprehensive Metabolic Panel 02/18/23 * Ferritin 02/18/23 * Iron Level 02/18/23 * Iron Percent Saturation 02/18/23 * Transferrin 02/18/23 Radiology* CT Chest w/o Contrast 08/22/24 [facility] Appointment Date:10/26/2023 01:00:00 PM Scheduled Provider:Nghia ROBERSON MD Location:[facility] Appointment Type:URO Office Visit Appointment Date:08/22/2024 10:00:00 AM Scheduled Provider: Location:[facility] Appointment Type:CT Chest (FT) Appointment Date:08/23/2024 02:45:00 PM Scheduled Provider:Jevon Pantoja DO Location:[facility] Appointment Type:ONC Office Visit 30 (FT) Future Scheduled Tests Laboratory* PSA Free & Total 07/01/23 * CBC w/ Auto Diff 02/23/24 * CBC w/ Auto Diff 08/23/24 * CBC w/ Auto Diff 02/18/23 * CBC w/ Indices 01/20/23 * CBC w/ Indices 04/21/23 * Comprehensive Metabolic Panel 02/23/24 * Comprehensive Metabolic Panel 08/23/24 * Comprehensive Metabolic Panel 02/18/23 * Ferritin 02/23/24 * Ferritin 08/23/24 * Ferritin 02/18/23 * Iron Level 02/23/24 * Iron Level 08/23/24 * Iron Level 02/18/23 * Iron Percent Saturation 02/23/24 * Iron Percent Saturation 08/23/24 * Iron Percent Saturation 02/18/23 * Transferrin 02/23/24 * Transferrin 08/23/24 * Transferrin 02/18/23 Radiology* CT Chest w/o Contrast [facility]22[facility] + Plan note Future Appointments Appointment Date:10/26/2023 01:00:00 PM Scheduled Provider:Nghia ROBERSON MD Location:[facility] Appointment Type:URO Office Visit Appointment Date:08/23/2024 02:45:00 PM Scheduled Provider:Jevon Pantoja DO [facility] Type:ONC Office Visit 30 (FT) Future Scheduled Tests Laboratory* PSA Free & Total 07/01/23 * CBC w/ Auto Diff 02/23/24 * CBC w/ Auto Diff 08/23/24 * CBC w/ Auto Diff 02/18/23 * CBC w/ Indices 01/20/23 * CBC w/ Indices 04/21/23 * Comprehensive Metabolic Panel 02/23/24 * Comprehensive Metabolic Panel 08/23/24 * Comprehensive Metabolic Panel 02/18/23 * Ferritin 02/23/24 * Ferritin 08/23/24 * Ferritin 02/18/23 * Iron Level 02/23/24 * Iron Level 08/23/24 * Iron Level 02/18/23 * Iron Percent Saturation 02/23/24 * Iron Percent Saturation 08/23/24 * Iron Percent Saturation 02/18/23 * Transferrin 02/23/24 * Transferrin 08/23/24 * Transferrin 02/18/23 [facility] Appointment Date:11/01/2023 10:15:00 AM Scheduled Provider:Nghia ROBERSON MD Location:[facility] Appointment Type:URO Office Visit Appointment Date:08/23/2024 02:40:00 PM Scheduled Provider:Jevon Pantoja DO [facility] Appointment Type:ONC Office Visit 30 (FT) Future Scheduled Tests Laboratory* CBC w/ Auto Diff 02/23/24 * CBC w/ Auto Diff 08/23/24 * CBC w/ Auto Diff 02/18/23 * CBC w/ Indices 01/20/23 * CBC w/ Indices 04/21/23 * Comprehensive Metabolic Panel 02/23/24 * Comprehensive Metabolic Panel 08/23/24 * Comprehensive Metabolic Panel 02/18/23 * Ferritin 02/23/24 * Ferritin 08/23/24 * Ferritin 02/18/23 * Iron Level 02/23/24 * Iron Level 08/23/24 * Iron Level 02/18/23 * Iron Percent Saturation 02/23/24 * Iron Percent Saturation 08/23/24 * Iron Percent Saturation 02/18/23 * Transferrin 02/23/24 * Transferrin 08/23/24 * Transferrin 02/18/23 [facility] App[facility]ments Appointment Date:05/22/2024 01:45:00 PM Scheduled Provider:Nghia ROBERSON MD Location:[facility] Appointment Type:URO Office Visit Appointment Date:08/23/2024 02:40:00 PM Scheduled Provider:Jevon Pantoja DO [facility] Appointment Type:ONC Office Visit 30 (FT) Diagnostic Tests Pending * PSA Free & Total 11/01/23 Future Scheduled Tests Laboratory* CBC w/ Auto Diff 02/23/24 * CBC w/ Auto Diff 08/23/24 * CBC w/ Auto Diff 02/18/23 * CBC w/ Indices 01/20/23 * CBC w/ Indices 04/21/23 * Comprehensive Metabolic Panel 02/23/24 * Comprehensive Metabolic Panel 08/23/24 * Comprehensive Metabolic Panel 02/18/23 * Ferritin 02/23/24 * Ferritin 08/23/24 * Ferritin 02/18/23 * Iron Level 02/23/24 * Iron Level 08/23/24 * Iron Level 02/18/23 * Iron Percent Saturation 02/23/24 * Iron Percent Saturation 08/23/24 * Iron Percent Saturation 02/18/23 * Transferrin 02/23/24 * Transferrin 08/23/24 * Transferrin 02/18/23 [facility] Evaluation + Plan note Future Appointments Appointment Date:05/22/2024 01:45:00 PM Scheduled Provider:Nghia ROBERSON MD Location:[facility] Appointment Type:URO Office Visit Appointment Date:08/23/2024 02:40:00 PM Scheduled Provider:Jevon Pantoja DO Location:.[facility]COL[facility] Appointment Type:ONC Office Visit 30 (FT) Future Scheduled Tests Laboratory* CBC w/ Auto Diff 02/23/24 * CBC w/ Auto Diff 08/23/24 * CBC w/ Auto Diff 02/18/23 * CBC w/ Indices 01/20/23 * CBC w/ Indices 04/21/23 * Comprehensive Metabolic Panel 02/23/24 * Comprehensive Metabolic Panel 08/23/24 * Comprehensive Metabolic Panel 02/18/23 * Ferritin 02/23/24 * Ferritin 08/23/24 * Ferritin 02/18/23 * Iron Level 02/23/24 * Iron Level 08/23/24 * Iron Level 02/18/23 * Iron Percent Saturation 02/23/24 * Iron Percent Saturation 08/23/24 * Iron Percent Saturation 02/18/23 * Transferrin 02/23/24 * Transferrin 08/23/24 * Transferrin 02/18/23 [facility] Evaluation + Plan note Future Appointments Appointment Date:05/22/2024 01:45:00 PM Scheduled Provider:Nghia ROBERSON MD Location:[facility] Appointment Type:URO Office Visit Appointment Date:08/23/2024 02:40:00 PM Scheduled Provider:Jevon Pantoja DO [facility] Appointment Type:ONC Office Visit 30 (FT) Future Scheduled Tests Laboratory* CBC w/ Auto Diff 08/23/24 * CBC w/ Indices 04/21/23 * Comprehensive Metabolic Panel 08/23/24 * Ferritin 08/23/24 * Ferritin 02/18/23 * Iron Level 08/23/24 * Iron Level 02/18/23 * Iron Percent Saturation 08/23/24 * Iron Percent Saturation 02/18/23 * Transferrin 08/23/24 * Transferrin 02/18/23 [facility] Evaluation noteNo assessment information available [facility] Work Phone: Evaluation note* Diagnosis HTN (hypertension), benign- Primary Essential hypertension, benign [facility] [place] [facility] Diagnosis PAF (paroxysmal atrial fibrillation) (HCC) Atrial fibrillation documented [facility] [place] [facility]* Diagnosis PAF (paroxysmal atrial fibrillation) (HCC)- Primary Atrial fibrillation documented [facility] [place] [facility]* Diagnosis AF (paroxysmal atrial fibrillation) (HCC)- Primary Atrial fibrillation documented [facility] this [facility] [place] [facility]* Diagnosis Atrial fibrillation, unspecified type (HCC)- Primary documented in this [facility] [place] [facility]* Diagnosis AF (paroxysmal atrial fibrillation) (HCC)- Primary Atrial fibrillation Gastrointestinal hemorrhage, unspecified gastrointestinal hemorrhage type documented in this [facility] [place] [facility]* Diagnosis PAF (paroxysmal atrial fibrillation) (HCC)- Primary Atrial fibrillation documented [facility] this [facility] [place] [facility]* Diagnosis Pain of both shoulder joints Rotator cuff tear arthropathy of both shoulders Traumatic arthropathy, shoulder region Atrial fibrillation, unspecified type (HCC) documented [facility] this [facility] [place] [facility]* Diagnosis Gastrointestinal hemorrhage, unspecified gastrointestinal hemorrhage type- Primary HTN (hypertension), benign Essential hypertension, benign PAF (paroxysmal atrial fibrillation) (HCC) Atrial fibrillation Hyperlipidemia, unspecified hyperlipidemia type documented in this [facility] [place] [facility]* Diagnosis IRB 21-1030 WATCHAMAN FLX Real World Evidence (WATCH RWE) PI: Dr. Marcos Bermudez- Primary [facility] [place] [facility] Diagnosis IRB 21-1030 WATCHAMAN FLX Real World Evidence (WATCH RWE) PI: Dr. Marcos Bermudez- Primary AF (paroxysmal atrial fibrillation) (HCC) Atrial fibrillation documented in this encounter [facility] note* Diagnosis Medication refill [Z76.0 (ICD-10-CM)]- Primary Issue of repeat prescriptions documented in this encounter [facility] note* Diagnosis PAF (paroxysmal atrial fibrillation) (HCC)- Primary Atrial fibrillation Gastrointestinal hemorrhage, unspecified gastrointestinal hemorrhage type documented [facility] this [facility] [place] [facility]* Diagnosis HTN (hypertension), benign Essential hypertension, benign documented in this [facility] [place] [facility]* Diagnosis PAF (paroxysmal atrial fibrillation) (HCC)- Primary Atrial fibrillation documented [facility] this [facility] [place] [facility]* Diagnosis Hyperlipidemia, unspecified hyperlipidemia type- Primary Pain of both shoulder joints Rotator cuff tear arthropathy of both shoulders Traumatic arthropathy, shoulder region documented [facility] this [facility] [place] [facility]* Diagnosis Atypical chest pain Other chest pain ANDERSEN (dyspnea on exertion) Other dyspnea and respiratory abnormality documented [facility] this [facility] [place] [facility]* Diagnosis Onychomycosis- Primary Dermatophytosis of nail Pain in left toe(s) Pain in right toe(s) documented in this encounter [facility] note* Diagnosis Atypical chest pain- Primary Other chest pain ANDERSEN (dyspnea on exertion) Other dyspnea and respiratory abnormality Hyperlipidemia, unspecified hyperlipidemia type documented in this encounter [facility] [place] [facility]* Diagnosis Atypical chest pain- Primary Other chest pain documented in this [facility] [place] [facility]* Diagnosis Onset Date Resolution Status Lumbar radiculopathy acute Lumbar stenosis with neurogenic claudication acute Spondylolisthesis, lumbar region acute Age-related osteoporosis wit hout current pathological fracture noneactive [facility] Work Phone: Evaluation note* Diagnosis Bilateral lumbar radiculopathy- Primary Spinal stenosis, lumbar region, without neurogenic claudication Anterolisthesis of lumbar spine documented in this encounter [facility] [place] [facility]* Diagnosis Persistent atrial fibrillation (HCC)- Primary Atrial fibrillation Presence of Watchman left atrial appendage closure device Obesity, Class I, BMI 30-34.9 Obesity, unspecified Chronic diastolic congestive heart failure (HCC) Chronic diastolic heart failure documented in this [facility] [place] [facility]* Diagnosis Paroxysmal atrial fibrillation (HCC)- Primary Atrial fibrillation documented in this [facility] [place] [facility]* Diagnosis 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athy- Primary Spinal stenosis, lumbar region, without neurogenic claudication 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athy Spinal stenosis, lumbar region, without neurogenic claudication documented in this encounter [facility] [place] [facility]* Diagnosis 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athy Spinal stenosis, lumbar region, without neurogenic claudication 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athy Spinal stenosis, lumbar region, without neurogenic claudication documented in this encounter [facility] [place] [facility]* Diagnosis Paroxysmal atrial fibrillation (HCC)- Primary Atrial fibrillation Chronic diastolic congestive heart failure (HCC) Chronic diastolic heart failure PAF (paroxysmal atrial fibrillation) (HCC) Atrial fibrillation Presence of Watchman left atrial appendage closure device 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athy Spinal stenosis, lumbar region, without neurogenic claudication documented in this encounter [facility] [place] [facility]* Diagnosis 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athy- Primary Spinal stenosis, lumbar region, without neurogenic claudication Back pain of lumbosacral region with sciatica Lumbar spondylosis Lumbosacral spondylosis without myelopathy 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athy Spinal stenosis, lumbar region, without neurogenic claudication 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athy Spinal stenosis, lumbar region, without neurogenic claudication documented in this encounter [facility] [place] [facility]* Diagnosis Visit for monitoring Tikosyn therapy- Primary Encounter for therapeutic drug monitoring Medication refill [Z76.0] Issue of repeat prescriptions documented in this encounter [facility] note* Diagnosis PAF (paroxysmal atrial fibrillation) (HCC) Atrial fibrillation documented [facility] this [facility] [place] [facility]* Diagnosis PAF (paroxysmal atrial fibrillation) (HCC) Atrial fibrillation HTN (hypertension), benign Essential hypertension, benign documented in this encounter [facility] [place] [facility]* Diagnosis IRB 21-1031 WATCHAMAN FLX Real World Evidence (WATCH RWE) PI: Dr. Marcos Bermudez- Primary documented in this encounter [facility] note* Diagnosis HTN (hypertension), benign- Primary Essential hypertension, benign Chronic diastolic congestive heart failure (HCC) Chronic diastolic heart failure Paroxysmal atrial fibrillation (HCC) Atrial fibrillation documented in this encounter [facility] note* Diagnosis Spinal stenosis, lumbar region, without neurogenic claudication- Primary Lumbar radiculopathy Thoracic or lumbosacral neuritis or radiculitis, unspecified documented in this encounter [facility] [place] [facility]* Diagnosis 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athy- Primary Spinal stenosis, lumbar region, without neurogenic claudication Lower extremity numbness Disturbance of skin sensation Spinal stenosis, lumbar region, without neurogenic claudication Lumbar radiculopathy Thoracic or lumbosacral neuritis or radiculitis, unspecified documented [facility]* Diagnosis Atypical chest pain Other chest pain ANDERSEN (dyspnea on exertion) Other dyspnea and respiratory abnormality Hyperlipidemia, unspecified hyperlipidemia type documented in this [facility]* Diagnosis Lumbar spondylosis- Primary Lumbosacral spondylosis without myelopathy Chronic bilateral low back pain without sciatica Degenerative lumbar spinal stenosis Spinal stenosis, lumbar region, without neurogenic claudication documented in this encounter [facility] [place] [facility]* Diagnosis Lumbar spondylosis- Primary Lumbosacral spondylosis without myelopathy documented in this encounter [facility] [place] [facility]* Diagnosis MICHELE (obstructive sleep apnea)- Primary Obstructive sleep apnea (adult) (pediatric) Right median nerve neuropathy Neck pain Cervicalgia Lumbar back pain Lumbago Depression, unspecified depression type (CMS/HCC) [facility]* Diagnosis Seborrheic keratosis- Primary Actinic keratosis Lentigines Bacterial folliculitis Other specified disease of hair and hair follicles History of malignant melanoma of skin Personal history of malignant melanoma of skin [facility]* Diagnosis Pain of both shoulder joints 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* Diagnosis PAF (paroxysmal atrial fibrillation) (HCC)- Primary Atrial fibrillation documented in this encounter [facility] course Narrative No data available for this section [facility] instructions No data available for this section [facility] No data available for this section [facility] (n[facility])* Outpatient Procedure (Routine) - Authorized Specialty Diagnoses / Procedures Referred By Nicky t Referred To [facility] Diagnoses Atrial fibrillation, unspecified type (HCC) Procedures ECG COMPLETE ECG ROUTINE ECG W/LEAST 12 LDS W/I&R Kaylah Kemp MD [address] [place] [address] [address] Referral ID Status Reason Start Date Expiration Date Visits Requested Visits Authorized [id number] Authorized Auto-Generat ed Referral 01/08/2022 01/08/2023 1 1 [facility] for referral (narrative)* Outpatient Procedure (Routine) - Pending Review Specialty Diagnoses / Procedures Referred By Nicky youssef Referred To Contact [facility] Diagnoses PAF (paroxysmal atrial fibrillation) (HCC) Procedures ECHO TRANSESOPHAGEAL ECHO TRANSESOPHAG R-T 2D W/PRB IMG ACQUISJ I&R Kaylah Kemp MD [address] [facility] [address] [address] Referral ID Status Reason Start Date Expiration Date Visits Requested Visits Authorized [id number] Pending Review Auto-Generat ed Referral 2 04/19/2023 1 1 * Outpatient Procedure (Routine) - Pending Review Specialty Diagnoses / Procedures Referred By Contac t Referred To Contact [facility] Diagnoses PAF (paroxysmal atrial fibrillation) (HCC) Procedures ECHO ECHO TTHRC R-T 2D W/WOM-MODE COMPL SPEC&COLR D Kaylah Kemp MD [address] [place] [address] [address] Referral ID Status Reason Start Date Expiration Date Visits Requested Visits Authorized [id number] Pending Review Auto-Generat ed Referral 2 04/19/2023 1 1 * Outpatient Procedure (Routine) - Pending Review Specialty Diagnoses / Procedures Referred By Contac t Referred To Contact [facility] Diagnoses PAF (paroxysmal atrial fibrillation) (HCC) Procedures ECG COMPLETE ECG ROUTINE ECG W/LEAST 12 LDS W/I&R Kaylah Kemp MD [address] [place] [address] [place] [address] Referral ID Status Reason Start Date Expiration Date Visits Requested Visits Authorized [id number] Pending Review Auto-Generat ed Referral 2 04/19/2023 1 1 [facility] Outpatient Procedure (Routine) - Pending Review Specialty Diagnoses / Procedures Referred By Contac t Referred To Contact [facility] Diagnoses Research study patient AF (paroxysmal atrial fibrillation) (HCC) Procedures ECHO TRANSESOPHAGEAL ECHO TRANSESOPHAG R-T 2D W/PRB IMG ACQUISJ I&R Adilene Gerber APRN.[employer]AM[employer] M[employer]ER [address] [place] [address] [address] [place] [address] Referral ID Status Reason Start Date Expiration Date Visits Requested Visits Authorized [id number] Pending Review Auto-Generat ed Referral 06/10/2022 06/10/2023 1 1 * Outpatient Procedure (Routine) - Pending Review Specialty Diagnoses / Procedures Referred By Contac t Referred To Contact [facility] Diagnoses Research study patient AF (paroxysmal atrial fibrillation) (HCC) Procedures ECG COMPLETE ECG ROUTINE ECG W/LEAST 12 LDS W/I&R Adilene Gerber APRN.CNP [address], [address] [place] [address] [address] Referral ID Status Reason Start Date Expiration Date Visits Requested Visits Authorized [id number] Pending Review Auto-Generat ed Referral 06/10/2022 06/10/2023 1 1 [facility] for referral (narrative)* Outpatient Procedure (Routine) - Pending Review Specialty Diagnoses / Procedures Referred By Contac t Referred To Contact [facility] Diagnoses PAF (paroxysmal atrial fibrillation) (HCC) Procedures ECHO TRANSESOPHAGEAL ECHO TRANSESOPHAG R-T 2D W/PRB IMG LORENA Jasso&R Kaylah Kemp MD [address] [place] [address] [place] [address] Referral ID Status Reason Start Date Expiration Date Visits Requested Visits Authorized [id number] Pending Review Auto-Generat ed Referral 09/14/2022 09/14/2023 1 1 [facility] for referral (narrative)* Diagnostic Procedure Only (Routine) - Pending Review Specialty Diagnoses / Procedures [facility] Diagnoses Atypical chest pain ANDERSEN (dyspnea on exertion) Hyperlipidemia, unspecified hyperlipidemia type Procedures NM CARDIAC PERF STRESS/PHARM MYOCARDIAL SPECT MULTIPLE STUDIES Jacqueline Tamayo APRN.CNP [address] [facility] [place] [address] [facility] [address] [place] [address] Referral ID Status Reason Start Date Expiration Date Visits Requested Visits Authorized [id number] Pending Review Auto-Generat ed Referral 06/15/2023 07/14/2024 1 1 [facility] for referral (narrative)* Diagnostic Procedure Only (Routine) - Pending Review Specialty Diagnoses / Procedures Referred By Contac t Referred To Contact [facility] Diagnoses Atypical chest pain Procedures NM CARDIAC PERF STRESS/PHARM MYOCARDIAL [place] [address] [place] [address] [facility] [address] [place] [address] Referral ID Status Reason Start Date Expiration Date Visits Requested Visits Authorized [id number] Pending Review Auto-Generat ed Referral 06/15/2023 07/14/2024 1 1 [facility] for referral (narrative)* Diagnostic Procedure Only (Routine) - Closed Specialty Diagnoses / Procedures Referred By Nicky t Referred To Contact XR IMAGING Diagnoses 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athy Procedures XR LUMBAR MOTION 4V AP/LAT/ FLEX/EXT RADEX SPINE LUMBOSACRAL MINIMUM 4 VIEWS Alpa Ram DO [address] [place] [address] Xr Imaging [facility] Referral ID Status Reason Start Date Expiration Date V isits Requested Visits Authorized [id number] Closed Auto-Generate d Referral 08/29/2023 09/27/2024 1 1 [facility] for referral (narrative)* Outpatient Procedure (Routine) - Pending Review Specialty Diagnoses / Procedures Referred By Nicky t Referred To [facility] Diagnoses Paroxysmal atrial fibrillation (HCC) Chronic diastolic congestive heart failure (HCC) PAF (paroxysmal atrial fibrillation) (HCC) Presence of Watchman left atrial appendage closure device Procedures ECG COMPLETE ECG ROUTINE ECG W/LEAST 12 LDS W/I&R Kaylah Kemp MD [address] [place] [address] [facility] [place] [address] [place] [address] Referral ID Status Reason Start Date Expiration Date Visits Requested Visits Authorized [id number] Pending Review Auto-Generat ed Referral 09/01/2023 08/31/2024 1 1 [facility] for referral (narrative)* Diagnostic Procedure Only (Routine) - Closed Specialty Diagnoses / Procedures Referred By Contac t Referred To Contact XR IMAGING Diagnoses 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athy Procedures XR LUMBAR MOTION 4V AP/LAT/ FLEX/EXT RADEX SPINE LUMBOSACRAL MINIMUM 4 VIEWS Alpa Ram DO [address] [place] [address] Xr Imaging [facility]95 Referral ID Status Reason Start Date Expiration Date V isits Requested Visits Authorized [id number] Closed Auto-Generate d Referral 08/29/2023 09/27/2024 1 1 [facility] for referral (narrative)* Diagnostic Procedure Only (Routine) - Closed Specialty Diagnoses / Procedures Referred By Contac t Referred To Contact MOLECULAR & FUNCTIONAL IMAGING Diagnoses Atypical chest pain ANDERSEN (dyspnea on exertion) Hyperlipidemia, unspecified hyperlipidemia type Procedures NM CARDIAC PERF STRESS/PHARM MYOCARDIAL SPECT MULTIPLE STUDIES Jacqueline Tamayo APRN.CNP [address] [facility] [place] [address] Molecular & Functional Imaging [address] [place] [address] Referral ID Status Reason Start Date Expiration Date V isits Requested Visits Authorized [id number] Closed Auto-Generate d Referral 06/16/2023 06/16/2023 2 2 [facility] for referral (narrative)* Outpatient Procedure (Routine) - Authorized Specialty Diagnoses / Procedures [facility] Diagnoses Paroxysmal atrial fibrillation (HCC) Procedures ECG COMPLETE ECG ROUTINE ECG W/LEAST 12 LDS W/I&[place] [address] [place] [address] [facility] [place] [address] [place] [address] Referral ID Status Reason Start Date Expiration Date Visits Requested Visits Authorized [id number] Authorized Auto-Generat ed Referral 4 04/12/2025 1 1 * Outpatient Procedure (Routine) - New Request Specialty Diagnoses / Procedures Referred By Contac t Referred To Contact [facility] Diagnoses Paroxysmal atrial fibrillation (HCC) Procedures ECG COMPLETE ECG ROUTINE ECG W/LEAST 12 LDS W/I&[place] [address] [place] [address] [facility] [place] [address] [place] [id number] Referral ID Status Reason Start Date Expiration Date Visits Requested Visits Authorized [id number] New Request Auto-Generat ed Referral 4 04/12/2025 1 1 [facility] for referral (narrative)* Outpatient Procedure (Routine) - New Request Specialty Diagnoses / Procedures Referred By Contac t Referred To Contact [facility] Diagnoses PAF (paroxysmal atrial fibrillation) (HCC) Procedures ECG COMPLETE ECG ROUTINE ECG W/LEAST 12 LDS W/I&R Moustapha [place] APRN.CNP [address] [place] [address] [facility] [place] [address] [place] [address] Referral ID Status Reason Start Date Expiration Date Visits Requested Visits Authorized [id number] New Request Auto-Generat ed Referral 4 04/23/2025 1 1 [facility] for visit Narrative* Diagnostic Procedure Only (Routine) - Authorized Specialty Diagnoses / Procedures Referred By Contac t Referred To Contact MOLECULAR & FUNCTIONAL IMAGING Diagnoses Atypical chest pain ANDERSEN (dyspnea on exertion) Procedures NM CARDIAC PERF STRESS/PHARM MYOCARDIAL [place] [address] [facility] [place] [address] Molecular & Functional Imaging [address] [place] [id number] Referral ID Status Reason Start Date Expiration Date Visits Requested Visits Authorized [id number] Authorized Auto-Generat ed Referral 3 05/25/2024 1 1 [facility] for visit Narrative* Diagnostic Procedure Only (Routine) - Closed Specialty Diagnoses / Procedures Referred By Contac t Referred To Contact XR IMAGING Diagnoses 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athy Procedures XR LUMBAR MOTION 4V AP/LAT/ FLEX/EXT RADEX SPINE LUMBOSACRAL MINIMUM 4 VIEWS Alpa Ram DO [address] [place] [address] [place] [address] Referral ID Status Reason Start Date Expiration Date V isits Requested Visits Authorized [id number] Closed Auto-Generate d Referral 08/29/2023 09/27/2024 1 1 [facility] for visit Narrative* Outpatient Procedure (Routine) - Closed Specialty Diagnoses / Procedures Referred By Contac t Referred To Contact [facility] Diagnoses PAF (paroxysmal atrial fibrillation) (HCC) Procedures ECHO TRANSESOPHAGEAL ECHO TRANSESOPHAG R-T 2D W/PRB IMG LORENA I&R Kaylah Kemp MD [address] [place] [address] [facility] [place] [address] [place] [address] Referral ID Status Reason Start Date Expiration Date V isits Requested Visits Authorized [id number] Closed Auto-Generate d Referral 10/25/2023 01/18/2024 1 1 [facility] for visit Narrative* Diagnostic Procedure Only (Routine) - Closed Specialty Diagnoses / Procedures Referred By Contac t Referred To Contact MOLECULAR & FUNCTIONAL IMAGING Diagnoses Atypical chest pain ANDERSEN (dyspnea on exertion) Hyperlipidemia, unspecified hyperlipidemia type Procedures NM CARDIAC PERF STRESS/PHARM MYOCARDIAL SPECT MULTIPLE STUDIES Jacqueline Tamayo, TRIPE SCRAPER.FOAMITE MIXER [address] [facility] [place] [address] Molecular & Functional Imaging [address] [place] [phone] Referral ID Status Reason Start Date Expiration Date V isits Requested Visits Authorized [id number] Closed Auto-Generate d Referral 06/16/2023 06/16/[address] 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 Advance Directive(s) 07/03/2021 1:21 PM [...] By Contac t Referred To Contact [facility] Procedures CARDIOVASCULAR MEDICINE OP FOLLOW UP APPT ORDER Kaylah Kemp MD [address] [facility] [place] [address] [facility] [place] [address] [facility] [place] [address] Referral ID Status Reason Start Date Expiration Date Visits Requested Visits Authorized [id number] Ref Not Required PCP Requested Referral 08/18/2024 11/16/2024 1 1 Specialty Diagnoses / Procedures Referred By Contac t Referred To Contact [facility] Diagnoses Bilateral lumbar radiculopathy Spinal stenosis, lumbar region, without neurogenic claudication Anterolisthesis of lumbar spine Procedures CONSULT TO PHYSICAL THERAPY PHYSICAL THERAPY EVALUATION HIGH COMPLEX 45 MINS Alpa Ram DO [address] [place] [address] [facility] [place] [address] [place] [address] Referral ID Status Reason Start Date Expiration Date Visits Requested Visits Authorized [id number] Pending Review Auto-Generat ed Referral 06/22/2023 06/21/2024 [...] section and content) DATE CREATED AUTHOR [facility]/18/2017 [facility] DATE CREATED AUTHOR AUTHOR'S ORGANIZ ATION 06/05/2021 [facility] DATE CREATED AUTHOR AUTHOR'S ORGANIZ ATION 05/13/2022 [facility] DATE CREATED AUTHOR AUTHOR'S ORGANIZ ATION 06/17/[address] [facility] DATE CREATED AUTHOR AUTHOR'S ORGANIZ ATION 06/21/2023 [facility] DATE CREATED AUTHOR AUTHOR'S ORGANIZ ATION 11/02/2023 [facility] DATE CREATED AUTHOR AUTHOR'S ORGANIZ ATION 02/16/2024 [facility] DATE CREATED AUTHOR AUTHOR'S ORGANIZ ATION 03/11/2024 [place] DATE CREATED AUTHOR AUTHOR'S ORGANIZ ATION 03/18/2024 [place] [facility] DATE CREATED AUTHOR AUTHOR'S ORGANIZ ATION 04/13/2024 [facility] DATE CREATED AUTHOR AUTHOR'S ORGANIZ ATION 04/15/2024 [facility] DATE CREATED AUTHOR AUTHOR'S ORGANIZ ATION 04/28/2024 [facility] Source Comments (unrecognize d section and content) In the event this informatio n is protected by the Federal Confidentiality of Alcohol and Drug Abuse Patient Records regulations: The Federal rules restrict any use of the information to criminally investigate or prosecute any alcohol or drug abuse patient.[facility] the event this information is protected by the Federal Confidentiality of Alcohol and Drug Abuse Patient Records regulations: The Federal rules restrict any use of the information to criminally investigate or prosecute any alcohol or drug abuse patient.[facility] the event this information is protected by the Federal Confidentiality of Alcohol and Drug Abuse Patient Records regulations: The Federal rules restrict any use of the information to criminally investigate or prosecute any alcohol or drug abuse patient.[facility] the event this information is protected by the Federal Confidentiality of Alcohol and Drug Abuse Patient Records regulations: The Federal rules restrict any use of the information to criminally investigate or prosecute any alcohol or drug abuse patient.[facility] the event this information is protected by the Federal Confidentiality of Alcohol and Drug Abuse Patient Records regulations: The Federal rules restrict any use of the information to criminally investigate or prosecute any alcohol or drug abuse patient.[facility] the event this information is protected by the Federal Confidentiality of Alcohol and Drug Abuse Patient Records regulations: The Federal rules restrict any use of the information to criminally investigate or prosecute any alcohol or drug abuse patient.[facility] the event this information is protected by the Federal Confidentiality of Alcohol and Drug Abuse Patient Records regulations: The Federal rules restrict any use of the information to criminally investigate or prosecute any alcohol or drug abuse patient.[facility] the event this information is protected by the Federal Confidentiality of Alcohol and Drug Abuse Patient Records regulations: The Federal rules restrict any use of the information to criminally investigate or prosecute any alcohol or drug abuse patient.[facility] the event this information is protected by the Federal Confidentiality of Alcohol and Drug Abuse Patient Records regulations: The Federal rules restrict any use of the information to criminally investigate or prosecute any alcohol or drug abuse patient.[facility] the event this information is protected by the Federal Confidentiality of Alcohol and Drug Abuse Patient Records regulations: The Federal rules restrict any use of the information to criminally investigate or prosecute any alcohol or drug abuse patient.[facility] the event this information is protected by the Federal Confidentiality of Alcohol and Drug Abuse Patient Records regulations: The Federal rules restrict any use of the information to criminally investigate or prosecute any alcohol or drug abuse patient.[facility] the event this information is protected by the Federal Confidentiality of Alcohol and Drug Abuse Patient Records regulations: The Federal rules restrict any use of the information to criminally investigate or prosecute any alcohol or drug abuse patient.[facility] the event this information is protected by the Federal Confidentiality of Alcohol and Drug Abuse Patient Records regulations: The Federal rules restrict any use of the information to criminally investigate or prosecute any alcohol or drug abuse patient.[facility] the event this information is protected by the Federal Confidentiality of Alcohol and Drug Abuse Patient Records regulations: The Federal rules restrict any use of the information to criminally investigate or prosecute any alcohol or drug abuse patient.[facility] the event this information is protected by the Federal Confidentiality of Alcohol and Drug Abuse Patient Records regulations: The Federal rules restrict any use of the information to criminally investigate or prosecute any alcohol or drug abuse patient.[facility]In the event this information is protected by the Federal Confidentiality of Alcohol and Drug Abuse Patient Records regulations: The Federal rules restrict any use of the information to criminally investigate or prosecute any alcohol or drug abuse patient.[facility]In the event this information is protected by the Federal Confidentiality of Alcohol and Drug Abuse Patient Records regulations: The Federal rules restrict any use of the information to criminally investigate or prosecute any alcohol or drug abuse patient.[facility]In the event this information is protected by the Federal Confidentiality of Alcohol and Drug Abuse Patient Records regulations: The Federal rules restrict any use of the information to criminally investigate or prosecute any alcohol or drug abuse patient.[facility]In the event this information is protected by the Federal Confidentiality of Alcohol and Drug Abuse Patient Records regulations: The Federal rules restrict any use of the information to criminally investigate or prosecute any alcohol or drug abuse patient.[facility]In the event this information is protected by the Federal Confidentiality of Alcohol and Drug Abuse Patient Records regulations: The Federal rules restrict any use of the information to criminally investigate or prosecute any alcohol or drug abuse patient.[facility]In the event this information is protected by the Federal Confidentiality of Alcohol and Drug Abuse Patient Records regulations: The Federal rules restrict any use of the information to criminally investigate or prosecute any alcohol or drug abuse patient.[facility]In the event this information is protected by the Federal Confidentiality of Alcohol and Drug Abuse Patient Records regulations: The Federal rules restrict any use of the information to criminally investigate or prosecute any alcohol or drug abuse patient.[facility]In the event this information is protected by the Federal Confidentiality of Alcohol and Drug Abuse Patient Records regulations: The Federal rules restrict any use of the information to criminally investigate or prosecute any alcohol or drug abuse patient.[facility]In the event this information is protected by the Federal Confidentiality of Alcohol and Drug Abuse Patient Records regulations: The Federal rules restrict any use of the information to criminally investigate or prosecute any alcohol or drug abuse patient.[facility]In the event this information is protected by the Federal Confidentiality of Alcohol and Drug Abuse Patient Records regulations: The Federal rules restrict any use of the information to criminally investigate or prosecute any alcohol or drug abuse patient.[facility]In the event this information is protected by the Federal Confidentiality of Alcohol and Drug Abuse Patient Records regulations: The Federal rules restrict any use of the information to criminally investigate or prosecute any alcohol or drug abuse patient.[facility]In the event this information is protected by the Federal Confidentiality of Alcohol and Drug Abuse Patient Records regulations: The Federal rules restrict any use of the information to criminally investigate or prosecute any alcohol or drug abuse patient.[facility]In the event this information is protected by the Federal Confidentiality of Alcohol and Drug Abuse Patient Records regulations: The Federal rules restrict any use of the information to criminally investigate or prosecute any alcohol or drug abuse patient.[facility]In the event this information is protected by the Federal Confidentiality of Alcohol and Drug Abuse Patient Records regulations: The Federal rules restrict any use of the information to criminally investigate or prosecute any alcohol or drug abuse patient.[facility]In the event this information is protected by the Federal Confidentiality of Alcohol and Drug Abuse Patient Records regulations: The Federal rules restrict any use of the information to criminally investigate or prosecute any alcohol or drug abuse patient.[facility] CampusIn the event this information is protected by the Federal Confidentiality of Alcohol and Drug Abuse Patient Records regulations: The Federal rules restrict any use of the information to criminally investigate or prosecute any alcohol or drug abuse patient.[facility]In the event this information is protected by the Federal Confidentiality of Alcohol and Drug Abuse Patient Records regulations: The Federal rules restrict any use of the information to criminally investigate or prosecute any alcohol or drug abuse patient.[facility]In the event this information is protected by the Federal Confidentiality of Alcohol and Drug Abuse Patient Records regulations: The Federal rules restrict any use of the information to criminally investigate or prosecute any alcohol or drug abuse patient.[facility] CampusIn the event this information is protected by the Federal Confidentiality of Alcohol and Drug Abuse Patient Records regulations: The Federal rules restrict any use of the information to criminally investigate or prosecute any alcohol or drug abuse patient.[facility] CampusIn the event this information is protected by the Federal Confidentiality of Alcohol and Drug Abuse Patient Records regulations: The Federal rules restrict any use of the information to criminally investigate or prosecute any alcohol or drug abuse patient.[facility] CampusIn the event this information is protected by the Federal Confidentiality of Alcohol and Drug Abuse Patient Records regulations: The Federal rules restrict any use of the information to criminally investigate or prosecute any alcohol or drug abuse patient.[facility] CampusIn the event this information is protected by the Federal Confidentiality of Alcohol and Drug Abuse Patient Records regulations: The Federal rules restrict any use of the information to criminally investigate or prosecute any alcohol or drug abuse patient.[facility] CampusIn the event this information is protected by the Federal Confidentiality of Alcohol and Drug Abuse Patient Records regulations: The Federal rules restrict any use of the information to criminally investigate or prosecute any alcohol or drug abuse patient.[facility] CampusIn the event this information is protected by the Federal Confidentiality of Alcohol and Drug Abuse Patient Records regulations: The Federal rules restrict any use of the information to criminally investigate or prosecute any alcohol or drug abuse patient.[facility] CampusIn the event this information is protected by the Federal Confidentiality of Alcohol and Drug Abuse Patient Records regulations: The Federal rules restrict any use of the information to criminally investigate or prosecute any alcohol or drug abuse patient.[facility] CampusIn the event this information is protected by the Federal Confidentiality of Alcohol and Drug Abuse Patient Records regulations: The Federal rules restrict any use of the information to criminally investigate or prosecute any alcohol or drug abuse patient.[facility] CampusIn the event this information is protected by the Federal Confidentiality of Alcohol and Drug Abuse Patient Records regulations: The Federal rules restrict any use of the information to criminally investigate or prosecute any alcohol or drug abuse patient.[facility] CampusIn the event this information is protected by the Federal Confidentiality of Alcohol and Drug Abuse Patient Records regulations: The Federal rules restrict any use of the information to criminally investigate or prosecute any alcohol or drug abuse patient.[facility] CampusIn the event this information is protected by the Federal Confidentiality of Alcohol and Drug Abuse Patient Records regulations: The Federal rules restrict any use of the information to criminally investigate or prosecute any alcohol or drug abuse patient.[facility] CampusIn the event this information is protected by the Federal Confidentiality of Alcohol and Drug Abuse Patient Records regulations: The Federal rules restrict any use of the information to criminally investigate or prosecute any alcohol or drug abuse patient.[facility] CampusIn the event this information is protected by the Federal Confidentiality of Alcohol and Drug Abuse Patient Records regulations: The Federal rules restrict any use of the information to criminally investigate or prosecute any alcohol or drug abuse patient.[facility] CampusIn the event this information is protected by the Federal Confidentiality of Alcohol and Drug Abuse Patient Records regulations: The Federal rules restrict any use of the information to criminally investigate or prosecute any alcohol or drug abuse patient.[facility] CampusIn the event this information is protected by the Federal Confidentiality of Alcohol and Drug Abuse Patient Records regulations: The Federal rules restrict any use of the information to criminally investigate or prosecute any alcohol or drug abuse patient.[facility] CampusIn the event this information is protected by the Federal Confidentiality of Alcohol and Drug Abuse Patient Records regulations: The Federal rules restrict any use of the information to criminally investigate or prosecute any alcohol or drug abuse patient.[facility] CampusIn the event this information is protected by the Federal Confidentiality of Alcohol and Drug Abuse Patient Records regulations: The Federal rules restrict any use of the information to criminally investigate or prosecute any alcohol or drug abuse patient.[facility] CampusIn the event this information is protected by the Federal Confidentiality of Alcohol and Drug Abuse Patient Records regulations: The Federal rules restrict any use of the information to criminally investigate or prosecute any alcohol or drug abuse patient.[facility] CampusIn the event this information is protected by the Federal Confidentiality of Alcohol and Drug Abuse Patient Records regulations: The Federal rules restrict any use of the information to criminally investigate or prosecute any alcohol or drug abuse patient.[facility] CampusIn the event this information is protected by the Federal Confidentiality of Alcohol and Drug Abuse Patient Records regulations: The Federal rules restrict any use of the information to criminally investigate or prosecute any alcohol or drug abuse patient.[facility] CampusIn the event this information is protected by the Federal Confidentiality of Alcohol and Drug Abuse Patient Records regulations: The Federal rules restrict any use of the information to criminally investigate or prosecute any alcohol or drug abuse patient.[facility] CampusIn the event this information is protected by the Federal Confidentiality of Alcohol and Drug Abuse Patient Records regulations: The Federal rules restrict any use of the information to criminally investigate or prosecute any alcohol or drug abuse patient.[facility] CampusIn the event this information is protected by the Federal Confidentiality of Alcohol and Drug Abuse Patient Records regulations: The Federal rules restrict any use of the information to criminally investigate or prosecute any alcohol or drug abuse patient.[facility] CampusIn the event this information is protected by the Federal Confidentiality of Alcohol and Drug Abuse Patient Records regulations: The Federal rules restrict any use of the information to criminally investigate or prosecute any alcohol or drug abuse patient.[facility] CampusIn the event this information is protected by the Federal Confidentiality of Alcohol and Drug Abuse Patient Records regulations: The Federal rules restrict any use of the information to criminally investigate or prosecute any alcohol or drug abuse patient.[facility] CampusIn the event this information is protected by the Federal Confidentiality of Alcohol and Drug Abuse Patient Records regulations: The Federal rules restrict any use of the information to criminally investigate or prosecute any alcohol or drug abuse patient.[facility] CampusIn the event this information is protected by the Federal Confidentiality of Alcohol and Drug Abuse Patient Records regulations: The Federal rules restrict any use of the information to criminally investigate or prosecute any alcohol or drug abuse patient.[facility] CampusIn the event this information is protected by the Federal Confidentiality of Alcohol and Drug Abuse Patient Records regulations: The Federal rules restrict any use of the information to criminally investigate or prosecute any alcohol or drug abuse patient.[facility] CampusIn the event this information is protected by the Federal Confidentiality of Alcohol and Drug Abuse Patient Records regulations: The Federal rules restrict any use of the information to criminally investigate or prosecute any alcohol or drug abuse patient.[facility] CampusIn the event this information is protected by the Federal Confidentiality of Alcohol and Drug Abuse Patient Records regulations: The Federal rules restrict any use of the information to criminally investigate or prosecute any alcohol or drug abuse patient.[facility] [place] [facility] Reason for Visit (unrecogniz ed section and [...] [employer] N [employer] Real World Evidence (WATCH RW) PI: Dr. Marcos Bermudez Specialty Diagnoses / Procedures Referred By Contac t Referred To Contact Diagnoses Atrial fibrillation, unspecified type (HCC) Procedures PERQ CLSR TCAT L ATR APNDGE W/ENDOCARDIAL IMPLNT PERC TRANSCATH CLOSURE LEFT ATRIAL APPENDAGE W/IMPLANT,INCLUSIVE OF FLUORO,TRANSEPTAL PUNCTURE,CATH PLACEMENT(S) ANGIO,WHEN PERFORMED,[facility] [address] [place] [address] Referral ID Status Reason Start Date Expiration Date Visits Re quested Visits Authorized [id number] 1 1 Reason Comments Patient Question Reason [...] MYOCARDIAL [place] [address] [place] [address] Molecular & Functional Imaging [address] [place] [address] Referral ID Status Reason Start Date Expiration Date Visits Requested Visits Authorized [id number] Authorized Auto-Generat ed Referral 3 05/25/2024 1 1 Reason Comments Toenail Care Non DM nail care Reason Comments Back Pain MRI Report Specialty Diagnoses / Procedures Referred By Contac t Referred To Contact Spine Health / SPINE Diagnoses back pain pt to bring disc Procedures NEW NI [facility] Self Alpa Ram DO [address] [place] [address] Referral ID Status Reason Start Date Expiration Date V isits Requested Visits Authorized [id number] Outside PCP 06/22/2023 08/21/2023 1 1 Reason [...] 12/20/2023 Specialty Diagnoses / Procedures Referred By Contac t Referred To Contact MOLECULAR & FUNCTIONAL IMAGING Diagnoses Atypical chest pain ANDERSEN (dyspnea on exertion) Hyperlipidemia, unspecified hyperlipidemia type Procedures NM CARDIAC PERF STRESS/PHARM MYOCARDIAL SPECT MULTIPLE STUDIES Jacqueline Tamayo APRN.[employer] [address] [place] [address] Molecular & Functional Imaging [address] [place] [address] Referral ID Status Reason Start Date Expiration Date V isits Requested Visits Authorized [id number] Closed Auto-Generate d Referral 06/16/2023 06/16/2023 2 2 Reason Comments Low Back Pain Reason Comments Back Pain Neck Pain Reason Comments Skin Check Reason Onset Date Comments Refill Request 03/27/2024 Reason Comments Follow Up Reason Comments Patient Question A fib confirmation Care Teams (unrecognized sec tion and content) Auto Wash Buffer Relationship Specialty Start Date End Date Scarlett Gaviria [address] [place] [phone] PCP - General Family Practice 10/15/15 Nolberto Thomas [address] [place] [address] Primary Staff Physician Cardiology 07/18/18 Auto Wash Buffer Relationship Specialty Start Date End Date Scarlett Gaviria [address] [place] [address] PCP - General Family Practice 10/15/15 [facility] [address] [place] [address] Primary Staff Physician Cardiology 07/18/18 Auto Wash Buffer Relationship Specialty Start Date End Date Scarlett Gaviria [address] [place] [address] PCP - General Family Practice 10/15/15 [facility] [address] [place] [address] Primary Staff Physician Cardiology 07/18/18 Auto Wash Buffer Relationship Specialty Start Date End Date Scarlett Gaviria [address] [place] [address] PCP - General Family Practice 10/15/15 Nolberto Thomasesh [address] [place] [address] Primary Staff Physician Cardiology 07/18/18 Auto Wash Buffer Relationship Specialty Start Date End Date Scarlett Gaviria [address] [place] [address] PCP - General Family Practice 10/15/15 Nolberto Thomas Vagesh [address] [place] [address] Primary Staff Physician Cardiology 07/18/18 Auto Wash Buffer Relationship Specialty Start Date End Date Scarlett Gaviria [address] [place] [address] PCP - General Family Practice 10/15/15 Nolberto Thomas Vagesh [address] [place] [address] Primary Staff Physician Cardiology 07/18/18 Auto Wash Buffer Relationship Specialty Start Date End Date Scarlett Gaviria [address] [place] [address] PCP - General Family Medicine 10/15/15 Nolberto Thomas Vagesh [address] [place] [address] Primary Staff Physician Cardiology 07/18/18 Auto Wash Buffer Relationship Specialty Start Date End Date Scarlett Gaviria [address] [place] [address] PCP - General Family Medicine 10/15/15 Nolberto Thomas Vagesh [address] [place] [address] Primary Staff Physician Cardiology 07/18/18 Auto Wash Buffer Relationship Specialty Start Date End Date Scarlett Gaviria [address] [place] [address] PCP - General Family Medicine 10/15/15 [facility] Nolberto Vagesh [address] [place] [address] Primary Staff Physician Cardiology 07/18/18 Auto Wash Buffer Relationship Specialty Start Date End Date Scarlett Gaviria [address] [place] [address] PCP - General Family Medicine 10/15/15 [facility] Nolberto Vagesh [address] [place] [address] Primary Staff Physician Cardiology 07/18/18 Auto Wash Buffer Relationship Specialty Start Date End Date Scarlett Gaviria [address] [place] [address] PCP - General Family Medicine 10/15/15 [facility] V[facility] [address] [place] [address] Primary Staff Physician Cardiology 07/18/18 Auto Wash Buffer Relationship Specialty Start Date End Date Scarlett Gaviria [address] [place] [address] PCP - General Family Medicine 10/15/15 [facility] Nolberto Vagesh [address] [place] [address] Primary Staff Physician Cardiology 07/18/18 Flory Fan MD [address] [place] [address] Primary Staff Physician Cardiology 05/18/22 Auto Wash Buffer Relationship Specialty Start Date End Date Scarlett Gaviria [address] [place] [address] PCP - General Family Medicine 10/15/15 [facility] [address] [place] [address] Primary Staff Physician Cardiology 07/18/18 Flory Fan MD [address] [place] [address] Primary Staff Physician Cardiology 05/18/22 Auto Wash Buffer Relationship Specialty Start Date End Date Scarlett Gaviria [address] [facility] [place] [address] PCP - General Family Medicine 10/15/15 [facility] [address] [place] [address] Primary Staff Physician Cardiology 07/18/18 Flory Fan MD [address] [place] [address] Primary Staff Physician Cardiology 05/18/22 Auto Wash Buffer Relationship Specialty Start Date End Date Scarlett Gaviria [address] [place] [facility] [place] [address] PCP - General Family Medicine 10/15/15 [facility] Nolberto [facility] [address] [facility] [place] [address] Primary Staff Physician Cardiology 07/18/18 Flory Fan MD [address] [place] [address] Primary Staff Physician Cardiology 05/18/22 Auto Wash Buffer Relationship Specialty Start Date End Date Scarlett Gaviria [address] [place] [address] PCP - General Family Medicine 10/15/15 [facility] [address] [place] [address] Primary Staff Physician Cardiology 07/18/18 Flory Fan MD [address] [place] [address] Primary Staff Physician Cardiology 05/18/22 Auto Wash Buffer Relationship Specialty Start Date End Date Scarlett Gaviria [address] [place] [address] PCP - General Family Medicine 10/15/15 [facility] Nolberto [facility] [address] [facility] [place] [address] Primary Staff Physician Cardiology 07/18/18 Flory Fan MD [address] [place] [address] Primary Staff Physician Cardiology 05/18/22 Auto Wash Buffer Relationship Specialty Start Date End Date Scarlett Gaviria [address] [place] [address] PCP - General Family Medicine 10/15/15 [facility] sc[facility] [address] [place] [address] Primary Staff Physician Cardiology 07/18/18 Flory Fan MD [address] [place] [address] Primary Staff Physician Cardiology 05/18/22 Auto Wash Buffer Relationship Specialty Start Date End Date Scarlett Gaviria [address] [place] [address] PCP - General Family Medicine 10/15/15 Nolberto Thomas [address] [place] [address] Primary Staff Physician Cardiology 07/18/18 Flory Fan MD [address] [place] [address] Primary Staff Physician Cardiology 05/18/22 Auto Wash Buffer Relationship Specialty Start Date End Date Scarlett Gaviria [address] [place] [address] PCP - General Family Medicine 10/15/15 [facility] [address] [place] [address] Primary Staff Physician Cardiology 07/18/18 Flory Fan MD [address] [place] [address] Primary Staff Physician Cardiology 05/18/22 Auto Wash Buffer Relationship Specialty Start Date End Date Scarlett Gaviria [address] [place] [place] [address] PCP - General Family Medicine 10/15/15 Nolberto Thomas [address] [place] [address] Primary Staff Physician Cardiology 07/18/18 Flory Fan MD [address] [place] [address] Primary Staff Physician Cardiology 05/18/22 Auto Wash Buffer Relationship Specialty Start Date End Date Scarlett Gaviria [address] [place] [address] PCP - General Family Medicine 10/15/15 Nolberto Thomas [address] [place] [address] Primary Staff Physician Cardiology 07/18/18 Flory Fan MD [address] [place] [address] Primary Staff Physician Cardiology 05/18/22 Auto Wash Buffer Relationship Specialty Start Date End Date Scarlett Gaviria [address] [place] [address] PCP - General Family Medicine 10/15/15 Nolberto Thomas [address] [place] [address] Primary Staff Physician Cardiology 07/18/18 Flory Fan MD [address] [place] [address] Primary Staff Physician Cardiology 05/18/22 Auto Wash Buffer Relationship Specialty Start Date End Date Scarlett Gaviria [address] [place] [address] PCP - General Family Medicine 10/15/15 Nolberto Thomas [address] [place], [place] [address] Primary Staff Physician Cardiology 07/18/18 Flory Fan MD [address] [place], [place] [address] Primary Staff Physician Cardiology 05/18/22 Auto Wash Buffer Relationship Specialty Start Date End Date Scarlett Gaviria [address] [place] [address] PCP - General Family Medicine 10/15/15 Nolberto Thomas [address] [address] Primary Staff Physician Cardiology 07/18/18 Flory Fan MD [address] [place] [address] Primary Staff Physician Cardiology 05/18/22 Auto Wash Buffer Relationship Specialty Start Date End Date Unallocated, Noms Provider [address] [place] [address] PCP - General 11/15/22 Scarlett Gaviria NP [address] [place] [address] Referring Physician Family Medicine 11/15/22 Auto Wash Buffer Relationship Specialty Start Date End Date Unallocated, Noms Provider [address] [facility] [place] [address] PCP - General 11/15/22 Scarlett Gaviria NP [address] [place] [address] Referring Physician Family Medicine 11/15/22 Auto Wash Buffer Relationship Specialty Start Date End Date Scarlett Gaviria [address] [address] PCP - General Family Medicine 10/15/15 Nolberto Thomas [address] [place] [address] Primary Staff Physician Cardiology 07/18/18 Flory Fan MD [address] [place] [address] Primary Staff Physician Cardiology 05/18/22 Auto Wash Buffer Relationship Specialty Start Date End Date Scarlett Gaviria [address] [place] [address] PCP - General Family Medicine 10/15/15 Nolberto Thomas [address] [place] [address] Primary Staff Physician Cardiology 07/18/18 Flory Fan MD [address] [place], [place] [address] Primary Staff Physician Cardiology 05/18/22 Team Status: [...] Attending Provider Active Start: June 20, 2023 Auto Wash Buffer Relationship Specialty Start Date End Date Scarlett Gaviria [address] [place] [address] PCP - General Family Medicine 10/15/15 Nolberto Thomas [address] [place], [place] [address] Primary Staff Physician Cardiology 07/18/18 Flory Fan MD [address] [place] [address] Primary Staff Physician Cardiology 05/18/22 Auto Wash Buffer Relationship Specialty Start Date End Date Scarlett Gaviria [address] [place] [address] PCP - General Family Medicine 10/15/15 Nolberto Thomas [address] [place] [address] Primary Staff Physician Cardiology 07/18/18 Flory Fan MD [address] [place] [address] Primary Staff Physician Cardiology 05/18/22 Auto Wash Buffer Relationship Specialty Start Date End Date Scarlett Gaviria [address] [place] [address] PCP - General Family Medicine 10/15/15 Nolberto Thomas [address] [place] [place] [address] Primary Staff Physician Cardiology 07/18/18 Flory Fan MD [address] [place] [address] Primary Staff Physician Cardiology 05/18/22 Auto Wash Buffer Relationship Specialty Start Date End Date Scarlett Gaviria [address] [place] [address] PCP - General Family Medicine 10/15/15 Nolberto Thomas [address] [place] [address] Primary Staff Physician Cardiology 07/18/18 Flory Fan MD [address] [place] [address] Primary Staff Physician Cardiology 05/18/22 Auto Wash Buffer Relationship Specialty Start Date End Date Scarlett Gaviria [address] [place] [address] PCP - General Family Medicine 10/15/15 Nolberto Thomas [address] [place] [address] Primary Staff Physician Cardiology 07/18/18 Flory Fan MD [address] [place] [address] Primary Staff Physician Cardiology 05/18/22 Auto Wash Buffer Relationship Specialty Start Date End Date Scarlett Gaviria [address] [place] [address] PCP - General Family Medicine 10/15/15 Nolberto Thomas [address] [place] [address] Primary Staff Physician Cardiology 07/18/18 Flory Fan MD [address] [place], [place] [address] Primary Staff Physician Cardiology 05/18/22 Auto Wash Buffer Relationship Specialty Start Date End Date Scarlett Gaviria [address] [address] PCP - General Family Medicine 10/15/15 Nolberto Thomas [address] [place] [address] Primary Staff Physician Cardiology 07/18/18 Flory Fan MD [address] [place], [place] [address] Primary Staff Physician Cardiology 05/18/22 Auto Wash Buffer Relationship Specialty Start Date End Date Scarlett Gaviria [address] [place] [address] PCP - General Family Medicine 10/15/15 Nolberto Thomas [address] [place] [address] Primary Staff Physician Cardiology 07/18/18 Flory Fan MD [address] [place] [address] Primary Staff Physician Cardiology 05/18/22 Auto Wash Buffer Relationship Specialty Start Date End Date Scarlett Gaviria [address] [address] PCP - General Family Medicine 10/15/15 Nolberto Thomas [address] [place], [place] [address] Primary Staff Physician Cardiology 07/18/18 Flory Fan MD [address] [place] [address] Primary Staff Physician Cardiology 05/18/22 Auto Wash Buffer Relationship Specialty Start Date End Date Scarlett Gaviria [address] [place] [address] PCP - General Family Medicine 10/15/15 Nolberto Thomas [address] [place] [place] [address] Primary Staff Physician Cardiology 07/18/18 Flory Fan MD [address] [place] [address] Primary Staff Physician Cardiology 05/18/22 Auto Wash Buffer Relationship Specialty Start Date End Date Scarlett Gaviria [address] [place] [address] PCP - General Family Medicine 10/15/15 Nolberto Thomas [address] [place] [address] Primary Staff Physician Cardiology 07/18/18 Flory Fan MD [address] [place] [address] Primary Staff Physician Cardiology 05/18/22 Auto Wash Buffer Relationship Specialty Start Date End Date Scarlett Gaviria [address] [place] [address] PCP - General Family Medicine 10/15/15 Nolberto Thomas [address] [place] [place] [address] Primary Staff Physician Cardiology 07/18/18 Flory Fan MD [address] [place] [address] Primary Staff Physician Cardiology 05/18/22 Auto Wash Buffer Relationship Specialty Start Date End Date Scarlett Gaviria [address] [place] [address] PCP - General Family Medicine 10/15/15 Nolberto Thomas [address] [place] [address] Primary Staff Physician Cardiology 07/18/18 Flory Fan MD [address] [place] [address] Primary Staff Physician Cardiology 05/18/22 Auto Wash Buffer Relationship Specialty Start Date End Date Scarlett Gaviria [address] [place] [address] PCP - General Family Medicine 10/15/15 Nolberto Thomas [address] [place] [address] Primary Staff Physician Cardiology 07/18/18 Flory Fan MD [address] [place], [place] [address] Primary Staff Physician Cardiology 05/18/22 Auto Wash Buffer Relationship Specialty Start Date End Date Scarlett Gaviria [address] [place] [address] PCP - General Family Medicine 10/15/15 Nolberto Thomas [address] [place] [address] Primary Staff Physician Cardiology 07/18/18 Flory Fan MD [address] [place] [address] Primary Staff Physician Cardiology 05/18/22 Auto Wash Buffer Relationship Specialty Start Date End Date Scarlett Gaviria [address] [place] [address] PCP - General Family Medicine 10/15/15 Nolberto Thomas [address] [place] [address] Primary Staff Physician Cardiology 07/18/18 Flory Fan MD [address] [place], [place] [address] Primary Staff Physician Cardiology 05/18/22 Auto Wash Buffer Relationship Specialty Start Date End Date Unallocated, Noms MD Osmar [address] [place] [address] PCP - General 11/15/22 Scarlett Gaviria NP [address] [place] [address] Referring Physician Family Medicine 11/15/22 Auto Wash Buffer Relationship Specialty Start Date End Date Unallocated, Federico Prasad MD [address] [place] [address] [place] [address] PCP - General 11/15/22 Scarlett Gaviria NP [address] [place] [address] Referring Physician Family Medicine 11/15/22 Auto Wash Buffer Relationship Specialty Start Date End Date Unallocated, Federico Prasad MD [address] [place] [address] PCP - General 11/15/22 Scarlett Gaviria [employer] [address] [facility] [place] [address] Referring Physician [facility] Medicine 11/15/22 Auto Wash Buffer Relationship Specialty Start Date End Date Unallocated, Federico Prasad MD [address] [place] [address] PCP - General 11/15/22 Scarlett Gaviria NP [address] [facility] [place] [address] Referring Physician Family Medicine 11/15/22 Auto Wash Buffer Relationship Specialty Start Date End Date Unallocated, Federico Prasad MD [facility] [place] [address] PCP - General 11/15/22 Scarlett Gaviria NP [address] [place] [address] Referring Physician Family Medicine 11/15/22 Auto Wash Buffer Relationship Specialty Start Date End Date Unallocated, Noms Provider, [address] [place] [address] PCP - General 11/15/22 Scarlett Gaviria NP [address] [place] [address] Referring Physician Family Medicine 11/15/22 Auto Wash Buffer Relationship Specialty Start Date End Date Unallocated, Noms Provider, [address] [facility] [place] [address] PCP - General 11/15/22 Scarlett Gaviria NP [address] [place] [address] Referring Physician Family Medicine 11/15/22 Auto Wash Buffer Relationship Specialty Start Date End Date Unallocated, Noms Provider, [address] [place] [address] PCP - General 11/15/22 Scarlett Gaviria NP [address] [place] [phone] Referring Physician Family Medicine 11/15/22 Auto Wash Buffer Relationship Specialty Start Date End Date Scarlett Gaviria [address] [place] [address] PCP - General Family Medicine 10/15/15 Nolberto Thomas [address] [place] [address] Primary Staff Physician Cardiology 07/18/18 Flory Fan MD [address] [place] [address] Primary Staff Physician Cardiology 05/18/22 Auto Wash Buffer Relationship Specialty Start Date End Date Scarlett Gaviria Nathaniel [address] [place] [address] PCP - General Family Medicine 10/15/15 Nolberto Thomas [address] [place] [address] Primary Staff Physician Cardiology 07/18/18 Flory Fan MD [address] [place] [address] Primary Staff Physician Cardiology 05/18/22 Goals (unrecognized section and content) Goals may [...] BE BASED ON THE PRIMARY CLINICAL RECORDS. [employer] provides no warranty or guarantee of the accuracy or completeness of information in this document.
[2024-05-03] MEDS: ROPINIROLE HCL 1 MG TABLET PO (21:24)
[2024-05-03] MEDS: FLECAINIDE ACETATE 50 MG TABLET 100 MG PO (21:24)
[2024-05-03] MEDS: BUDESONIDE 0.5 MG/2 ML AMPULE NEB IH (21:38)
[2024-05-03] MEDS: ALBUTEROL SULFATE 2.5 MG/3 ML VIAL NEB IH (21:38)
[2024-05-04] VITALS (22 sets, daily range): BP systolic 102–136; BP diastolic 67–85; PULSE 87–139; TEMP 36.5–36.9; O2SAT 90–99
[2024-05-04] MEDS: ALBUTEROL SULFATE 2.5 MG/3 ML VIAL NEB IH ×4 (04:59→20:06)
[2024-05-04] MEDS: OMEPRAZOLE 40 MG CAPSULE.DR PO (05:43)
[2024-05-04 06:30] LABS: Basophils Percent Auto 0.4 % (0.2-2.0); Eosinophils Percent Auto 0.4 % (0.9-7.0); Hematocrit 37.6 % (42.0-54.0); Hemoglobin 12.1 g/dL (14.0-18.0); Immature Granulocytes Abs Auto 0.03 10^3/uL (0.00-0.03); Immature Granulocytes Pct Auto 0.4 % (0.0-0.5); Lymphocytes Percent Auto 13.1 % (20.5-60.0); Mean Corpuscular HGB Conc 32.2 g/dL (29.9-35.2); Mean Corpuscular Hemoglobin 31.6 pg (25.9-34.0); Mean Corpuscular Volume 98.2 fL (80.0-94.0); Mean Platelet Volume 9.6 fL (9.5-13.5); Monocytes Absolute Auto 0.6 10^3/uL (0.3-0.8); Monocytes Percent Auto 7.6 % (1.7-12.0); Neutrophils Absolute Auto 6.1 10^3/uL (1.4-6.5); Neutrophils Percent Auto 78.1 % (43.0-75.0); Platelet Count 254 10^3/uL (150-450); Red Blood Count 3.83 10^6/uL (4.70-6.10); Red Cell Distribution Width 13.7 % (11.0-15.0); White Blood Count 7.8 10^3/uL (4.0-11.0)
[2024-05-04 06:44] LABS: Anion Gap 10.1; BUN Creatinine Ratio 11.8; Calcium 9.4 mg/dL (8.5-10.1); Carbon Dioxide 33.9 mmol/L (21.0-32.0); Chloride 99 mmol/L (98-107); Estimated GFR (African America 54 (>=60 mL/min/1.73m^2); Estimated GFR (Non-African Ame 45 (>=60 mL/min/1.73m^2); Glucose 127 mg/dL (74-106); Sodium 140 mmol/L (136-145)
[2024-05-04 06:51] LABS: Lactate/Lactic Acid 1.7 mmol/L (0.4-2.0)
[2024-05-04 07:00] LABS: Alanine Aminotransferase 23 U/L (16-63); Albumin Globulin Ratio 0.8; Albumin Level 3.2 g/dL (3.4-5.0); Alkaline Phosphatase 64 U/L (46-116); Aspartate Amino Transferase 21 U/L (15-37); Bilirubin Direct 0.2 mg/dL (0.0-0.2); Bilirubin Total 0.8 mg/dL (0.2-1.0); Globulin 3.8 g/dL
[2024-05-04 07:02] LABS: Troponin I High Sensitivity 38.1 pg/mL (4.0-76.1)
[2024-05-04 07:07] LABS: Thyroid Stimulating Hormone 5.686 uIU/mL (0.358-3.740)
--- NOTE | 2024-05-04 09:19 | CM.NOTE ---
Rounds made with Dr. Webster. Dr. Webster discussed labs and treatment plan, to receive another Bumex gtt and to wean O2. Delta verbalized understanding. No discharge planned for today.
[2024-05-04] MEDS: SOLIFENACIN SUCCINATE 10 MG TABLET PO (09:34)
[2024-05-04] MEDS: ASPIRIN 81 MG TABLET.DR PO (09:34)
[2024-05-04] MEDS: FLUTICASONE PROPIONATE 50 MCG NASAL SPRAY 2 SPRAY NS (09:34)
[2024-05-04] MEDS: POTASSIUM CHLORIDE 40 MEQ in 0.9 % SODIUM CHLORIDE 250 ML 67.5 MEQ IV (09:36)
[2024-05-04] MEDS: CEFTRIAXONE 1,000 MG in 0.9 % SODIUM CHLORIDE 50 ML 100 MG IV (09:36)
[2024-05-04] MEDS: 0.9 % SODIUM CHLORIDE 250 ML 10 ML IV (09:36)
[2024-05-04] MEDS: BUDESONIDE 0.5 MG/2 ML AMPULE NEB IH ×2 (10:04→20:06)
--- NOTE | 2024-05-04 10:40 | P.PN_ITS ---
Progress Note: Subjective Subjective Interval history: Patient does feel better today, he does notice less swelling in his legs but still persisting, still with some shortness of breath but overall he feels his breathing has improved Exam Constitutional Vital Signs, click to edit/add: Last Vital Signs Temp 98.4 F 05/04/24 07:41 Pulse 112 H 05/04/24 09:54 Resp 18 05/04/24 07:41 BP 134/83 05/04/24 07:41 Pulse Ox 93 L 05/04/24 10:05 O2 Del Method Nasal Cannula 05/04/24 10:05 O2 Flow Rate 1 05/04/24 10:05 Documenting provider has reviewed patient's vital signs: yes Common normals: apparent distress (Mild respiratory distress) Chest Common normals: inspection of chest normal Respiratory Common normals: no retractions; abnormal respiratory effort (Mild respiratory distress) and not clear to ascultation bilaterally Auscultation: rales (In the bases) Cardio Common normals: regular rate Rhythm: regular rhythm GI Common normals: Normal to inspection, nondistended, normoactive bowel sounds present, soft to palpation and non-tender Extremity Common normals: abnormal to inspection (1+ edema) Progress Note: Objective Labs Labs: Short CBC 05/03/24 05/04/24 Range/Units 16:00 06:10 WBC 11.7 H 7.8 (4.0-11.0) 10^3/uL Hgb 12.4 L 12.1 L (14.0-18.0) g/dL Hct 39.0 L 37.6 L (42.0-54.0) % Plt Count 266 254 (150-450) 10^3/uL BMP 05/03/24 05/04/24 16:00 06:10 Sodium 142 140 Potassium 4.1 3.0 L Chloride 104 99 Carbon Dioxide 28.2 33.9 H BUN 12.0 18.0 Creatinine 1.56 H 1.52 H Glucose 145 H 127 H Calcium 9.1 9.4 Liver Function 05/04/24 Range/Units 06:10 Total Bilirubin 0.8 (0.2-1.0) mg/dL Direct Bilirubin 0.2 (0.0-0.2) mg/dL AST 21 (15-37) U/L ALT 23 (16-63) U/L Alkaline Phosphatase 64 (46-116) U/L Albumin 3.2 L (3.4-5.0) g/dL Progress Note: A&P Assessment and Plan (1) Congestive heart failure: (2) Left wrist pain: (3) Dyspnea: Plan Admission findings: Sinus tachycardia, respiratory distress, acute hypoxia with O2 sat of 83%, leukocytosis with left shift, mild anemia, I will do it to acute combined congestive heart failure Acute combined congestive heart failure-will check other labs, check echo in a.m.,-repeat Bumex drip today, troponins are negative Hypokalemia-supplement Iron deficiency anemia-monitor daily Mild elevation in creatinine-uncertain what his baseline is Atrial fibrillation with rate controlled-does not need anticoagulation secondary to having a Watchman device placed Hypertension by history-continue with home medications Hypercholesterolemia by history-continue with home medications Depression-continue with home medications Mild COPD-continue with home medications, changing patient to IV antibiotics, leukocytosis on admission but improved today Restless leg syndrome continue with home medications L GERD continue with home medications Bladder spasms continue with home medications Admission status: Patient with acute combined congestive heart failure, not had a history of heart failure in the past will workup in the hospital, [facility], medically necessary treatment will span 2 midnights. Inpatient status ?
[2024-05-04] MEDS: FENOFIBRATE 54 MG TABLET 162 MG PO (12:21)
[2024-05-04] MEDS: BUMETANIDE 10 MG in 0.9 % SODIUM CHLORIDE 160 ML 20 MG IV (12:21)
--- NOTE | 2024-05-04 13:59 | SWNOTE1 ---
SW reviewed therapy notes and no anticipated discharge needs at this time.
--- NOTE | 2024-05-04 18:23 | CA_ITS ---
Patient Name: IRENA BUSCH MR#: [id number] : 1945 Exam Date: 05/04/2024 Ordering Doctor: DR AMANDO MAX . ECHOCARDIOGRAM REPORT PROCEDURE: CA ECHO DOPPLER COMPLETE INDICATIONS: Dyspnea, elevated BNP, atrial fibrillation, Watchman, COPD, hypertension COMPARISON: None. DESCRIPTION: COMPLETE ECHOCARDIOGRAM Real-time transthoracic echocardiography with 2D, M-mode, spectral and color flow Doppler performed. QUALITY: Technical quality was good. LEFT VENTRICLE: Normal chamber size. Normal left ventricular wall thickness. LV EF: Global left ventricular systolic function is difficult to assess but appears moderately reduced; visually estimated ejection fraction is 35 to 40%. Unable to assess regional wall motion abnormalities however of the septum is abnormal in motion. DIASTOLIC: Not adequately assessed due to heart rhythm. ATRIAL SEPTUM: Visually appears intact. LEFT ATRIUM: Severe dilatation. RIGHT ATRIUM: Mild dilatation. RIGHT VENTRICLE: Normal chamber size. Normal right ventricular systolic function. TRICUSPID VALVE: Normal mobility and thickness. No stenosis with mild regurgitation. Doppler studies reveal mildly (35-45) elevated right sided pressures. RVSP 45 mmHg MITRAL VALVE: Normal mobility and thickness. No evidence of mitral valve stenosis. There is no mitral annular calcification. Trivial mitral regurgitation. AORTIC VALVE: Normal trileaflet appearance. Mildly calcified aortic valve. Mildly diminished mobility. No evidence of aortic valve stenosis. Trivial aortic regurgitation. AORTIC ROOT: Normal diameter and appearance. Ascending aorta is severely dilated (5.2 cm). PULMONIC VALVE: Normal thickness and mobility. No stenosis. No regurgitation. PERICARDIUM: No evidence of pericardial effusion. IVC: Collapses with inspirations. IVC is normal in size. CONCLUSION: 1. Global left ventricular systolic function is difficult to assess but appears moderately reduced; visually estimated ejection fraction of 35 to 40% 2. Normal right ventricular size and systolic function 3. Biatrial dilatation 4. Mild tricuspid regurgitation 5. Mildly elevated right ventricular systolic pressure; RVSP 45 mmHg 6. The ascending aorta is severely dilated and measured at 5.2 cm - recommend dedicated imaging (CTA) to assess thoracic aortic aneurysm Adult Echocardiography Procedure Report Left Ventricle LVEDD (3.7 - 5.6 cm): 5.53 cm LVESD (2.2 - 4.0 cm): 4.07 cm LVIVS thickness (0.6 - 1.2 cm): 1.03 cm LVPW thickness (0.5 - 1.0 cm): 0.92 cm LVOT Max Gradient: 1.41 mm[Hg] LVOT Area (cm2): 0.59 m/s Peak Velocity (LVOT): 0.59 m/s LVOT Diameter 2.42 cm Left Atrium LA Volume Index (2D A2C): 58.25 ml/m2 Left Atrium Systolic Dimension: 4.93 cm Mitral Valve Mitral Valve E-Wave Peak Velocity: 0.66 m/s Right Ventricle Aorta AO Root Diam: 3.98 cm Ascending Ao Diam: 5.25 cm Aortic Valve AoV Area (Peak [place]): 2.70 cm2, 2.70 cm2 Peak Velocity(Antegrade Flow): 1.01 m/s Peak Gradient(Antegrade Flow): 4.07 mm[Hg] Tricuspid Valve Peak Velocity (Regurgitant Flow): 3.25 m/s, 3.21 m/s Pulmonic Valve Peak Velocity: 0.84 m/s Peak Gradient: 3.48 mm[Hg], 2.44 mm[Hg], 4.04 mm[Hg], 2.66 mm[Hg], 1.71 mm[Hg] Right Atrium Right Atrium Systolic Pressure: 53.80 ml, 53.80 ml Dictated by: Ivan Mera M.D. on 05/07/2024 at 16:15 Approved by: Ivan Mera M.D. on 05/07/2024 at 16:19
[2024-05-04] MEDS: FLECAINIDE ACETATE 50 MG TABLET 100 MG PO (21:04)
[2024-05-04] MEDS: ATORVASTATIN CALCIUM 40 MG TABLET PO (21:04)
[2024-05-04] MEDS: ROPINIROLE HCL 1 MG TABLET PO (21:04)
[2024-05-04] MEDS: ACETAMINOPHEN 500 MG TABLET 1000 MG PO (21:05)
[2024-05-04] MEDS: DULOXETINE HCL 60 MG CAPSULE.DR PO (21:05)
[2024-05-04] MEDS: MONTELUKAST SODIUM 10 MG TABLET PO (21:07)
[2024-05-05] VITALS (11 sets, daily range): BP systolic 128–134; BP diastolic 72–88; PULSE 18–102; TEMP 36.4–36.6; O2SAT 96–99
[2024-05-05] MEDS: ALBUTEROL SULFATE 2.5 MG/3 ML VIAL NEB IH ×2 (04:18→10:09)
[2024-05-05] MEDS: OMEPRAZOLE 40 MG CAPSULE.DR PO (06:12)
[2024-05-05 06:25] LABS: Basophils Percent Auto 0.7 % (0.2-2.0); Eosinophils Absolute Auto 0.2 10^3/uL (0.0-0.7); Eosinophils Percent Auto 2.6 % (0.9-7.0); Hematocrit 35.7 % (42.0-54.0); Hemoglobin 11.5 g/dL (14.0-18.0); Immature Granulocytes Abs Auto 0.04 10^3/uL (0.00-0.03); Immature Granulocytes Pct Auto 0.7 % (0.0-0.5); Lymphocytes Absolute Auto 1.2 10^3/uL (1.2-3.8); Lymphocytes Percent Auto 20.7 % (20.5-60.0); Mean Corpuscular HGB Conc 32.2 g/dL (29.9-35.2); Mean Corpuscular Hemoglobin 31.6 pg (25.9-34.0); Mean Corpuscular Volume 98.1 fL (80.0-94.0); Mean Platelet Volume 9.5 fL (9.5-13.5); Monocytes Absolute Auto 0.6 10^3/uL (0.3-0.8); Monocytes Percent Auto 10.8 % (1.7-12.0); Neutrophils Absolute Auto 3.7 10^3/uL (1.4-6.5); Neutrophils Percent Auto 64.5 % (43.0-75.0); Platelet Count 256 10^3/uL (150-450); Red Blood Count 3.64 10^6/uL (4.70-6.10); Red Cell Distribution Width 13.8 % (11.0-15.0); White Blood Count 5.8 10^3/uL (4.0-11.0)
[2024-05-05 06:40] LABS: Anion Gap 12.8; BUN Creatinine Ratio 15.2; Calcium 9.6 mg/dL (8.5-10.1); Carbon Dioxide 32.7 mmol/L (21.0-32.0); Chloride 100 mmol/L (98-107); Estimated GFR (African America 47 (>=60 mL/min/1.73m^2); Estimated GFR (Non-African Ame 39 (>=60 mL/min/1.73m^2); Glucose 105 mg/dL (74-106); Potassium 3.5 mmol/L (3.5-5.1); Sodium 142 mmol/L (136-145)
[2024-05-05] MEDS: FLUTICASONE PROPIONATE 50 MCG NASAL SPRAY 2 SPRAY NS (08:49)
[2024-05-05] MEDS: ATENOLOL 50 MG TABLET 100 MG PO (08:50)
[2024-05-05] MEDS: 0.9 % SODIUM CHLORIDE 250 ML 10 ML IV (08:50)
[2024-05-05] MEDS: CEFTRIAXONE 1,000 MG in 0.9 % SODIUM CHLORIDE 50 ML 100 MG IV (08:50)
[2024-05-05] MEDS: FLECAINIDE ACETATE 50 MG TABLET 100 MG PO (08:51)
[2024-05-05] MEDS: ASPIRIN 81 MG TABLET.DR PO (08:52)
[2024-05-05] MEDS: ALLOPURINOL 100 MG TABLET PO (08:52)
[2024-05-05] MEDS: BUDESONIDE 0.5 MG/2 ML AMPULE NEB IH (10:08)
--- NOTE | 2024-05-05 11:02 | PT.DAILY ---
Physical Therapy Daily Note PT Daily Note/Assess Start: 05/05/24 10:56 Freq: Status: Active Protocol: Document 05/05/24 10:56 [id number] (Rec: 05/05/24 11:02 [id number]) Physical Therapy Daily Note/Assessment Time In/Time Out Time In 09:25 Time Out 09:40 Pain In Pain Level 0 Pain Out Pain Level 0 Subjective Subjective Patient received seated EOB and agreeable to participate with PT. Patient on room air. Therapeutic Activity Time Therapeutic Activity 15 Minutes (minutes) Therapeutic Activity 1 Units Therapeutic Activity Treatment Chair Transfer Standby Assistance Ability Therapeutic Activity Transfer: sit to stand SBA. Gait: patient ambulated ~ Comments 200 feet x 1 with SBA, patient uses IV pole for assist. Patients step length and height equal and steady, no LOB while walking or during turns. Patient seated in chair at bedside, CBWR. Tray with breakfast placed in front of patient. States he does not require any assistance with breakfast. Total Physical Therapy Time Total Therapy 15 Minutes Total Physical 1 Therapy Units Summary Daily Note Summary Patient demonstrates no balance issues during treatment and increased ambulation distance. Patient states he plans to return home and does not think he requires any PT.
[2024-05-05] MEDS: FENOFIBRATE 54 MG TABLET 162 MG PO (12:32)
[2024-05-05] MEDS: SOLIFENACIN SUCCINATE 10 MG TABLET PO (12:32)
--- NOTE | 2024-05-05 22:40 | PM.DS1 ---
DS: Providers Provider Date of admission: 05/03/24 20:33 Primary care physician: Scarlett Gaviria NP Admitting clinician: Papi Webster Attending physician on admission: Papi Webster Consults: 05/03/24 18:20 Consult to Pharmacy Routine Consulting Provider: Reason for consultation: Please Pierce me when Med Rec is Updated Has provider been notified: No Occupational Therapy Eval and Treat Routine Reason for consultation: Only if needed for Rehab Has provider been notified: No Physical Therapy Eval and Treat Routine Reason for consultation: Eval and Treat Has provider been notified: No Attending physician on discharge: Shaikh Yesica Discharging clinician: Shaikh Yesica Anticipated date of discharge: 05/05/24 DS: Diagnosis Discharge Diagnosis (1) Congestive heart failure: Assessment and plan: Euvolemic on exam today. Can be discharged on PO lasix. Qualifiers: Heart failure chronicity: acute on chronic Heart failure type: combined systolic and diastolic Qualified Code(s): I50.43 - Acute on chronic combined systolic (congestive) and diastolic (congestive) heart failure (2) Acute respiratory failure with hypoxia: Assessment and plan: on RA upon discharge. Feeling well. (3) Chronic obstructive pulmonary disease: Assessment and plan: No active wheezing or bronchospasm on exam. C/w Home medications. Qualifiers: COPD type: unspecified COPD Qualified Code(s): J44.9 - Chronic obstructive pulmonary disease, unspecified (4) Atrial fibrillation with RVR: Assessment and plan: Rate controlled. C/w Flecainide. Has f/u with Cardiology next week. Prior hx of CV and ablation. (5) CKD stage 3a, GFR 45-59 ml/min: Assessment and plan: Mild elevation in Cr from baseline. Outpatient f/u (6) HLD (hyperlipidemia): Assessment and plan: c/w statin Qualifiers: Hyperlipidemia type: unspecified Qualified Code(s): E78.5 - Hyperlipidemia, unspecified (7) RLS (restless legs syndrome): Assessment and plan: C/w requip DS: Summary Hospital Course Hospital Course: 79 y o male presented to ED with worsening SOB, LE edema and was admitted for Acute resp failure with hypoxia, acute on chronic combined HF and Afib with RVR. He was started on Cont Bumex drip with close monitoring of his urine output, renal function, serum electrolytes. Patient clinically improved during admission and was weaned off of O2. He was doing well from respo pov and seemed close to euvolemia. We were unable to do an ECHO as it was a weekend but considering patient has an outpatient [facility], he can have outpatient ECHO if deemed necessary. Pt medically stable for discharge. F/u with PCP/Cardiology in 1-2 weeks Status at Discharge Functional status at discharge: independent ambulation Overall status at discharge: patient is back to baseline Time Spent with Patient Time attestation: Total time spent providing and/or coordinating discharge services: Time spent: greater than 30 minutes Exam Constitutional Vital Signs, click to edit/add: Last Vital Signs Temp 97.8 F 05/05/24 12:00 Pulse 90 05/05/24 12:00 Resp 16 05/05/24 12:00 BP 128/73 05/05/24 12:00 Pulse Ox 96 05/05/24 12:00 O2 Del Method Room Air 05/05/24 12:00 O2 Flow Rate 1 05/04/24 10:05 Documenting provider has reviewed patient's vital signs: yes Common normals: no apparent distress and oriented x3 General appearance: cooperative Respiratory Common normals: normal respiratory effort and clear to auscultation bilaterally Effort & inspection: able to speak in complete sentences Auscultation: clear to auscultation bilaterally Cardio Common normals: regular rate, S1 normal heart sound and S2 normal heart sound Rate: regular rate Rhythm: abnormal rhythm Heart sounds: S1 normal and S2 normal Extremity Common normals: no clubbing, cyanosis or edema Neuro Common normals: oriented x3, moves all extremities and no focal motor deficits DS: Data Data Completed and Pending Labs on day of discharge: Labs from last 24 hours 05/05/24 06:08 WBC 5.8 RBC 3.64 L Hgb 11.5 L Hct 35.7 L MCV 98.1 H MCH 31.6 MCHC 32.2 RDW 13.8 Plt Count 256 MPV 9.5 Neut % (Auto) 64.5 Lymph % (Auto) 20.7 [place] % (Auto) 10.8 Eos % (Auto) 2.6 Baso % (Auto) 0.7 Neut # (Auto) 3.7 Lymph # (Auto) 1.2 [place] # (Auto) 0.6 Eos # (Auto) 0.2 Baso # (Auto) 0.0 Abs Immat Gran (auto) 0.04 H Imm/Tot Granulo (auto) 0.7 H Sodium 142 Potassium 3.5 Chloride 100 Carbon Dioxide 32.7 H Anion Gap 12.8 BUN 26.0 H Creatinine 1.71 H Est GFR ( Amer) 47 L Est GFR (Non-Af Amer) 39 L BUN/Creatinine Ratio 15.2 Glucose 105 Calcium 9.6 NT-Pro-B Natriuret Pep 1183.0 Discharge Plan Discharge Disposition: Home, Self-Care Condition: Good Discharge Medications: Continued flecainide 100 mg tablet 100 mg PO Q12H fluticasone propion-salmeterol [Advair Diskus] 100-50 mcg/dose blister with device 1 inh inhalation BID aspirin 81 mg tablet,delayed release (DR/EC) 81 mg PO DAILY omeprazole 40 mg capsule,delayed release(DR/EC) 40 mg PO .ACB allopurinol 100 mg tablet 100 mg PO DAILY atenolol 50 mg tablet 50 mg PO DAILY atorvastatin 40 mg tablet 40 mg PO .qhs duloxetine 60 mg capsule,delayed release(DR/EC) 60 mg PO .qhs fenofibrate 160 mg tablet 160 mg PO .qd@1200 furosemide 20 mg tablet 20 mg PO DAILY montelukast 10 mg tablet 10 mg PO .qhs ropinirole 1 mg tablet 1 mg PO QPM Patient Comments: one to two tablets tolterodine 4 mg capsule,extended release 24hr 4 mg PO .qd@1200 Activity: increase activity as tolerated Diet: low salt diet Print Language: Fijian Patient Instructions: Heart Failure (DC) Forms: Portal Instructions Follow Up Appointments: Please call and schedule the following on Tuesday.. F/u with PCP in 1-2 weeks F/u with Cardiology in 1 week Discharge Date/Time: 05/05/24 14:15
--- NOTE | 2024-05-09 16:12 | CM.DCFOLLOWU ---
Person spoke with: patient How are you feeling? much better How is your pain? no pain Did you understand your discharge instructions?yes Do you have any questions about your discharge instructions? no questions Were you given any prescriptions at discharge? no Were you able to get your prescriptions filled? N/A Do you understand how to take your medications as ordered? yes Do you have any questions about your follow up appointment and do you plan to keep your follow up appointment? no questions, follow ups scheduled Is there anything else that you would like to discuss?no Questions/Comments/Concerns/Other:none
== END 2024-05-05 14:15 | disposition home or self-care (01) | DRG 291 ==
LOC: ER 19:20 → MS 20:37
PROVIDERS: Admitting Provider Family Medicine; Emergency Provider Emergency Medicine; PCP Nurse Practitioner Family; Visit Provider Family Medicine
DX: I13.0 Hypertensive heart and chronic kidney disease with heart failure and stage 1 through stage 4 chronic kidney disease, or unspecified chronic kidney disease (principal); I50.43 Acute on chronic combined systolic (congestive) and diastolic (congestive) heart failure; J96.01 Acute respiratory failure with hypoxia; N18.30 Chronic kidney disease, stage 3 unspecified; J44.9 Chronic obstructive pulmonary disease, unspecified; I48.91 Unspecified atrial fibrillation; D50.9 Iron deficiency anemia, unspecified; E78.00 Pure hypercholesterolemia, unspecified; E87.6 Hypokalemia; G25.81 Restless legs syndrome; K21.9 Gastro-esophageal reflux disease without esophagitis; M25.532 Pain in left wrist; N32.89 Other specified disorders of bladder; Z79.82 Long term (current) use of aspirin; Z79.51 Long term (current) use of inhaled steroids; Z79.899 Other long term (current) drug therapy; Z95.818 Presence of other cardiac implants and grafts
CPT/HCPCS: 36415; 71045; 80048; 80076; 81001; 83605; 83880; 84436; 84443; 84484; 85007; 85025; 85027; 87804; 87811; 93005; 93306; 94640; 94667; 94668; 94761; 96365; 96375; 97161; 97165; 97530; 99285; J0696; J1940; J3480

== ENCOUNTER 2024-06-07 09:12 | Emergency (ER) | payer OTHER, SELFPAY ==
[2024-06-07 09:20] VITALS: BP 147/97; PULSE 95; TEMP 37.1; O2SAT 97; BMI 29.8
--- NOTE | 2024-06-07 09:34 | ED.GENADUL1 ---
HPI HPI - General Adult General Chief complaint: Extremity Injury, Lower Stated complaint: LOWER EXTREMITY INJURY Time Seen by Provider: 06/07/24 09:15 Mode of arrival: walk-in History of Present Illness HPI narrative: Patient presents to ED complaining of left foot pain. He said last night around 9:00 he had his foot planted and he twisted to shut the door and he felt something in his foot pop. He has had pain and swelling ever since. He has pain with putting pressure on his foot and pain with walking. No calf pain no ankle pain. He had no other injury and he did not fall. He just complains of pain in the lateral aspect of the left foot. He does have a history of A-fib but he is not on a blood thinner at this time. He had a history of a Watchman procedure and he is going in next week for cardioversion. No chest pain no shortness of breath no other complaints at this time. Related Data Home Medications ?Medication ?Instructions ?Recorded ?Confirmed allopurinol 100 mg tablet 100 mg PO DAILY 08/30/23 05/03/24 atenolol 50 mg tablet 50 mg PO DAILY 08/30/23 05/03/24 atorvastatin 40 mg tablet 40 mg PO .qhs 08/30/23 05/04/24 duloxetine 60 mg capsule,delayed 60 mg PO .qhs 08/30/23 05/04/24 release fenofibrate 160 mg tablet 160 mg PO .qd@1200 08/30/23 05/04/24 furosemide 20 mg tablet 20 mg PO DAILY 08/30/23 05/03/24 montelukast 10 mg tablet 10 mg PO .qhs 08/30/23 05/04/24 ropinirole 1 mg tablet 1 mg PO QPM 08/30/23 05/03/24 tolterodine 4 mg capsule,extended 4 mg PO .qd@1200 08/30/23 05/04/24 release 24 hr aspirin 81 mg tablet,delayed 81 mg PO DAILY 05/03/24 05/03/24 release flecainide 100 mg tablet 100 mg PO Q12H 05/03/24 05/03/24 fluticasone 100 mcg-salmeterol 50 1 inh inhalation BID 05/03/24 05/03/24 mcg/dose blistr powdr for inhalation (Advair Diskus) omeprazole 40 mg capsule,delayed 40 mg PO .ACB 05/03/24 05/03/24 release Previous Rx's ?Medication ?Instructions ?Recorded hydrocodone 5 mg-acetaminophen 325 1 tab PO Q6H PRN pain #14 tabs 06/07/24 mg tablet Allergies Allergy/AdvReac Type Severity Reaction Status Date / Time No Known Drug Allergies Allergy Verified 05/03/24 16:13 Opioid HPI Opioid Management Most Recent Opioid Data: Last Pain Scale 4 06/07/24 09:33 06/07/24 Last Pain Intensity 0 05/05/24 10:56 05/05/24 Last ORT Total Score 0 05/03/24 20:46 05/03/24 Last ORT Risk Category Low Risk 05/03/24 20:46 05/03/24 Review of Systems ROS Status of ROS 10 or more systems reviewed and unremarkable except as noted in history and below [facility] Medical History (Updated 06/07/24 @ 10:27 by Melina Castellano DO) Congestive heart failure ?I50.9 - Heart failure, unspecified (ICD-10) Left wrist pain ?M25.532 - Pain in left wrist (ICD-10) Dyspnea ?R06.00 - Dyspnea, unspecified (ICD-10) RLS (restless legs syndrome) ?G25.81 - Restless legs syndrome (ICD-10) HTN (hypertension) ?I10 - Essential (primary) hypertension (ICD-10) HLD (hyperlipidemia) ?E78.5 - Hyperlipidemia, unspecified (ICD-10) CKD stage 3a, GFR 45-59 ml/min ?N18.31 - Chronic kidney disease, stage 3a (ICD-10) Prostatic enlargement ?N40.0 - Benign prostatic hyperplasia without lower urinary tract symptoms (ICD-10) Melanoma ?C43.9 - Malignant melanoma of skin, unspecified (ICD-10) Skin cancer ?C44.90 - Unspecified malignant neoplasm of skin, unspecified (ICD-10) Depression ?F32.A - Depression, unspecified (ICD-10) Chronic obstructive pulmonary disease ?J44.9 - Chronic obstructive pulmonary disease, unspecified (ICD-10) GERD (gastroesophageal reflux disease) ?K21.9 - Gastro-esophageal reflux disease without esophagitis (ICD-10) Anemia ?D64.9 - Anemia, unspecified (ICD-10) Presence of Watchman left atrial appendage closure device ?Z95.818 - Presence of other cardiac implants and grafts (ICD-10) Atrial fibrillation ?I48.91 - Unspecified atrial fibrillation (ICD-10) Social History Highest level of school completed/degree received: high school graduate Little interest or pleasure in doing things: not at all Feeling down, depressed, or hopeless: not at all Do you think of yourself as: straight/heterosexual Gender Identity: male Exam Narrative Exam Narrative: General: alert, no acute distress Cardiovascular: regular rate and rhythm, normal peripheral perfusion. Respiratory: Lungs CTA, respirations non labored. Extremities: Tenderness to palpation left lateral foot. Normal pulses normal sensation. No ankle pain. Mild bilateral lower extremity edema which is chronic per patient Neurological: oriented x 4, LOC appropriate for age. Constitutional Vital Signs, click to edit/add: Last Vital Signs Temp 98.7 F 06/07/24 09:20 Pulse 95 H 06/07/24 09:20 Resp 18 06/07/24 09:20 BP 147/97 H 06/07/24 09:20 Pulse Ox 97 06/07/24 09:20 Course Vital Signs Vital signs: Vital Signs Temperature 98.7 F 06/07/24 09:20 Pulse Rate 95 H 06/07/24 09:20 Respiratory Rate 18 06/07/24 09:20 Blood Pressure 147/97 H 06/07/24 09:20 Pulse Oximetry 97 06/07/24 09:20 Temperature 98.7 F 06/07/24 09:20 Pulse Rate 95 H 06/07/24 09:20 Respiratory Rate 18 06/07/24 09:20 Blood Pressure 147/97 H 06/07/24 09:20 Pulse Oximetry 97 06/07/24 09:20 Medical Decision Making MDM Narrative Medical decision making narrative: X-ray shows no acute fracture or dislocation. Patient had his own walking boot in his car so he put that on and it helped with the pain. 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 He was given pain medication which was sent to his pharmacy. Return to ED if worsening symptoms otherwise follow-up as needed. Patient comfortable care plan for home Differential Diagnosis Differential Diagnosis: Strain Imaging Data Chest x-ray: Radiologist's impression: ITS Impressions Foot X-Ray 06/07/24 09:35 IMPRESSION: Moderate degenerative changes with no acute fracture Electronically authenticated by: BOUBACAR CORDERO Date: 06/07/2024 10:09 Discharge Plan Discharge Chief Complaint: Extremity Injury, Lower Clinical Impression: Sprain of foot, left Patient Disposition: Home, Self-Care Time of Disposition Decision: 10:27 Condition: Good Mode of Transportation: Private Vehicle Prescriptions / Home Meds: New hydrocodone-acetaminophen 5-325 mg tablet 1 tab PO Q6H PRN (Reason: pain) Qty: 14 0RF No Action flecainide 100 mg tablet 100 mg PO Q12H fluticasone propion-salmeterol [Advair Diskus] 100-50 mcg/dose blister with device 1 inh inhalation BID aspirin 81 mg tablet,delayed release (DR/EC) 81 mg PO DAILY omeprazole 40 mg capsule,delayed release(DR/EC) 40 mg PO .ACB allopurinol 100 mg tablet 100 mg PO DAILY atenolol 50 mg tablet 50 mg PO DAILY atorvastatin 40 mg tablet 40 mg PO .qhs duloxetine 60 mg capsule,delayed release(DR/EC) 60 mg PO .qhs fenofibrate 160 mg tablet 160 mg PO .qd@1200 furosemide 20 mg tablet 20 mg PO DAILY montelukast 10 mg tablet 10 mg PO .qhs ropinirole 1 mg tablet 1 mg PO QPM Patient Comments: one to two tablets tolterodine 4 mg capsule,extended release 24hr 4 mg PO .qd@1200 Print Language: Macedonian Instructions: Foot Sprain (ED) Referrals: Sue Powell, [employer] OPERATOR HELPER [Primary Care Provider] - 1 week
--- NOTE | 2024-06-07 09:35 | XR_ITS ---
The [address] [address] Patient Name: IRENA BUSCH MRN: [id number] date: 1945 Sex: M Assigned Patient Location: ER Current Patient Location: ER Accession/Order Number: [id number] Exam Date: 06/07/2024 09:28 Report Date: 06/07/2024 10:09 At the request of: NIYA COOK Procedure: XR foot LT min 3V PROCEDURE: XR foot LT min 3V COMPARISON: None. HISTORY: trauma FINDINGS: BONES:No acute fracture or dislocation. Fusion of the second proximal interphalangeal joint. Moderate degenerative changes most significant first tarsometatarsal joint. SOFT TISSUES:Negative. No visible soft tissue swelling. EFFUSION:None visible. OTHER: Negative. XR/XR foot LT min 3V IMPRESSION: Moderate degenerative changes with no acute fracture Electronically authenticated by: BOUBACAR CORDERO Date: 06/07/2024 10:09
== END 2024-06-07 10:53 | disposition home or self-care (01) ==
PROVIDERS: Emergency Provider Emergency Medicine; PCP Nurse Practitioner Family
DX: S93.602A Unspecified sprain of left foot, initial encounter (principal); X50.1XXA Overexertion from prolonged static or awkward postures, initial encounter; I48.91 Unspecified atrial fibrillation
CPT/HCPCS: 73630; 99283

== ENCOUNTER 2024-10-21 09:24 | Emergency (ER) | payer MEDICARE, SELFPAY ==
--- OUTSIDE RECORDS SUMMARY | 2024-08-29 09:00 | XMS_ITS ---
Author Organization [facility] es Address [address] [place] [address] Care Team Providers Care Classified Ad Taker Name Role Phone Janis Brown Primary Care Provider [phone] REASON FOR VISIT 1 month f/u bh Encounters Encounter Location Date Provider Diagnosis [facility] [address] [place] [address] 08/29/2024 Janis Brown Plan Of Treatment Next Appt Details Provider Name:Janis estrada, 10/22/2024 01:15:00 PM, [address] [place], [address], Progress Notes * IRENA BUSCH MDOB:[birth year] (79 yo M)Acc No.[id number]:08/29/2024 Behavioral Health Patient: Maira IRENA THORNTON Provider: Nathaniel Brown :1945 A ge:79 Y S ex:Male Date:08/29/2024 Address:[address], [id number] Subjective: * Chief Complaints: * 1 . 1 month f/u bh. * Medical History: Objective: * Vitals: Assessment: Plan: * Treatment: * Images: * Electronic signature of LILLI Kwan on 10/21/2024 at 09:36 AM EDT Sign off status: Pending * Provider: Nathaniel Brown Date: 0 08/29/2024 Generated for Ashly pollard/Gloria/eTransmitting on: 10/21/2024 09:36 AM EDT
--- OUTSIDE RECORDS SUMMARY | 2024-10-17 16:00 | XMS_ITS | Encounter Summary ---
Author Organization [facility] Address [facility] [place] [address] Care Team Providers Care Application Support Developer Name Role Phone Nolberto Thomas Unavailable Lo Flory Lovett MD Unavailable [phone] Justina Natarajan MD Unavailable [phone] Manny James MD Unavailable Jose Fontaine MD Unavailable [phone] Ny Hurtado NP Primary Care Provider [phone] Source Comments In the event this information is protected by the Federal Confidentiality of Alcohol and Drug AbusePatient Records regulations: The Federal rules restrict any use of the information to criminally investigate or prosecute any alcohol or drug abuse patient.[facility] Encounter Details Date Type Department Care Team (Late st Contact Info) Description 10/17/2024 4:00 PM EDT [facility] Spine Medicine [address] [place] [id number] Mao De La Rosa, DO [address] [place] [address] Social History Tobacco Use Types Packs/Day Years Used Date Smoking Tobacco: Former Cigarettes 1.5 15 0 05/02/1970 - 05/02/1985 Smokeless Tobacco: Never Alcohol Use Standard Drinks/Week Comments Yes 10 (1 standard drink = 0.6 oz pure alcohol) has an occasional drink, previously drank 2-3 per day Overall Financial Resource Strain (CARDIA) Answe r Date Recorded How hard is it for you to pa y for the very basics like food, housing, medical care, and heating? Not hard at all 02/27/2020 PHQ-2 Answer Date Recorded PHQ-2 score 4 06/12/2024 Hunger Vital Sign Answer Date Recorded Within the past 12 months, y ou worried that your food would run out before you got the money to buy more. Never true 02/27/20 20 Within the past 12 months, t he food you bought just didn't last and you didn't have money to get more. Never true 02/27/2020 PRAPARE - Transportation Answer Date Re corded In the past 12 months, has l ack of transportation kept you from medical appointments or from getting medications? No 02/27/2020 Lack of Transportation (Non-Medical) Not on file 02/27/2020 Area Deprivation Index Answer Date Mike rded National Score (1-100), lower number is lower ri sk 74 09/14/2022 State Score (1-10), lower number is lower risk 6 09/14/2022 Data from: https://www.neighborhoodatlas.medicine.[facility].edu/. Last address used for calculation [address] 09/14/2022 Education Answer Date Recorded What is the highest level of school you have completed or the highest degree you have received? Bachelor's degree (e.g., BA, AB, BS) 02/27/2020 Sex and Gender Information Value Date Recorded Sex Assigned at Male 04/12/2022 4:36 PM EST Legal Sex Male 9:27 AM EST Gender Identity Male 04/12/2022 4:36 PM EST Sexual Orientation Straight 04/12/2022 4: 36 PM EST Occupation Industry Job Start Date Job End Date Retired Not on file Not on file Not on file documented as of this encounter Functional Status * Are you deaf or do you have serious difficulty hearing? Answer Date of Assessment Author No 05/20/2022 8:18 AM Krissy Franco RN * Are you blind or do you have serious difficulty seeing, even when wearing glasses? Answer Date of Assessment Author No 05/20/2022 8:18 AM Krissy Franco RN * Do you have serious difficulty walking or climbing stairs? Answer Date of Assessment Author No 05/20/2022 8:18 AM Krissy Franco RN * Do you have difficulty dressing or bathing? Answer Date of Assessment Author No 05/20/2022 8:18 AM Krissy Franco RN * Because of a physical, mental, or emotional condition, do you have difficulty doing errands alone such as visiting a doctor's office or shopping? Answer Date of Assessment Author No 05/20/2022 8:18 AM Krissy Franco RN documented as of this encounter Mental Status * Because of a physical, mental, or emotional condition, do you have serious difficulty concentrating, remembering, or making decisions? Answer Entry Date Author No 05/20/2022 8:18 AM Krissy Franco RN documented in this encounter Plan of Treatment Upcoming Encounters Date Type Department Care Team (Late st Contact Info) Description 12/05/2024 2:20 PM EDT Office Visit Cardiology [address] [place] [id number] [place] [address] [place] [address] Return in about 4 months (around 11/16/2024). documented as of this encounter Goals Goal Patient Goal Type Associated Problems Recent Progress Patient-Stated? Author Blood Pressure < 130/80 Blood Pressure 118/60(2024 3:28 PM EDT) No Puja Batista documented as of this encounter Visit Diagnoses Not on filedocumented in this encounter Care Teams Application Support Developer Relationship Specialty Start Date End Date Ny Hurtado NP [address] [place] [address] PCP - General Family Medicine 08/03/24 Nolberto Thomas [address] [place] [address] Primary Staff Physician Cardiology 07/18/18 Flory Fan MD [address] [place] [address] Primary Staff Physician Cardiology 05/18/22 [place] [address] [place], [place] [id number] Repairer Typewriter Cardiology 05/24/24 [place] [address] [place], [place] [id number] Repairer Typewriter Cardiology 05/24/24 Jose Fontaine MD [address] [place], [place] [phone] Surgeon Cardiac Surg 05/25/24 documented as of this encounter
--- OUTSIDE RECORDS SUMMARY | 2024-10-19 13:45 | XMS_ITS | Encounter Summary ---
Author Organization [facility] Address [facility] [place] [address] Care Team Providers Care Healthcare Insurance Sales Agent Name Role Phone Nolberto Thomas Unavailable Lo Flory Lovett MD Unavailable [phone] Justina Natarajan MD Unavailable [phone] Manny James MD Unavailable Jose Fontaine MD Unavailable [phone] Ny Hurtado NP Primary Care Provider [phone] Source Comments In the event this information is protected by the Federal Confidentiality of Alcohol and Drug AbusePatient Records regulations: The Federal rules restrict any use of the information to criminally investigate or prosecute any alcohol or drug abuse patient.[facility] Reason for Visit * Reason Comments Spirometry * Outpatient Procedure (Routine) - Closed Specialty Diagnoses / Procedures Referred By Contac t Referred To [facility] Diagnoses prison current use of amiodarone Procedures LUNG DIFFUSION CAPACITY (DLCO) [place] [address] [place] [address] Phone: tel: fax: [facility] [place] [address] [place] [address] Referral ID Status Reason Start Date Expiration Date V isits Requested Visits Authorized [id number] Closed Auto-Generate d Referral 09/10/2024 10/10/2025 1 1 Encounter Details Date Type Department Care Team (Late st Contact Info) Description 10/19/2024 1:45 PM EDT Procedure Pulmonary Medicine [address] [facility] [place] [address] Spirometry Social History Tobacco Use Types Packs/Day Years [...] is lower risk 6 09/14/2022 Data from: https://www.neighborhoodatlas.medicine.[facility].edu/. Last address used for calculation [address] 09/14/2022 Education Answer Date Recorded What [...] 12/05/2024 2:20 PM EDT Office Visit Cardiology [address] [place] [phone] [place] [address] [place] [address] Return in about 4 months (around 11/16/2024). documented as of this encounter Goals Goal Patient Goal Type Associated Problems Recent Progress Patient-Stated? Author Blood Pressure < 130/80 Blood Pressure 118/60(2024 3:28 PM EDT) No Puja Batista documented as of this encounter Procedures Procedure Name Priority Date/Time Associated Diagnosis Comments LUNG DIFFUSION CAPACITY (DLCO) Routine 10/19/2024 2:04 PM EDT intermediate manager current use of amiodarone documented in this encounter Results * LUNG DIFFUSION CAPACITY (DLCO) (10/19/2024 2:04 PM EDT) 10/19/2024 2:04 PM EDT Narrative PULMONARY FUNCTION LAB - 10/19/2024 3:50 PM EDT [facility] [address] [facility] 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 Start of test and EOFE criteria met. Medications and Allergies were reviewed for possible drug interactions per policy. No contraindications or sensitivities were noted. Meds taken: 1 puff Advair 6 hours before testing. 4 puffs Albuterol (360 mcg) delivered by MDI via holding chamber. HR pre = 74 /min, HR post = 70/min. DLCO: Current ATS/ERS acceptability and repeatability standards for DLCO met with 2 acceptable maneuvers. //AH IMPRESSION: Spirometry indicates mild obstruction. Negative bronchodilator response. The diffusion capacity (uncorrected for hemoglobin) is normal. 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 Smoking Hx: Non-smoker Doctor: MAMADOU MADRID Test Date: 10/19/2024 Site: Tech: Adilene Chery PRE-BRONCH POST-BRONCH Thien LLN Pred ULN %Pred ZScore Thien %Pred %Chg ZScore SPIROMETRY FVC 4.61 2.60 3.52 4.46 130 1.90 4.56 129 -1 1.82 FEV1 2.80 1.89 2.62 3.30 106 0.43 2.84 108 1 0.54 FEV1/FVC 0.61 0.62 0.76 0.88 79 -1.76 0.62 81 2 -1.60 FEFMax 8.03 4.74 6.92 9.10 116 0.84 8.46 122 5 1.16 FEF50 1.65 1.25 3.37 5.49 48 -1.33 1.97 58 19 -1.08 FIF50 6.84 6.11 -10 FEF50/FIF50 0.24 90-100 0.32 33 FIVC 4.65 4.57 -1 YUK20-96 1.16 0.76 1.97 3.74 58 -1.01 1.17 59 0 -1.00 ExpiredTime 15.60 13.72 -12 TimeToFEFMax 0.07 0.06 -6 LOUISE 0.08 0.08 -7 VolExtrap% 2 2 -6 LUNG DIFFUSION DLCOunc 22.96 16.71 23.07 30.71 99 -0.03 DLCOStdPB 22.71 16.71 23.07 30.71 98 -0.08 VA 7.23 4.71 5.87 7.12 123 1.79 Kco 3.15 2.88 3.95 5.12 79 -1.22 Comments: PRE AND POST ABDULLAHI WITH BD: Current ATS/ERS acceptability and repeatability standards for spirometry met. Start of test and EOFE criteria met. Medications and Allergies were reviewed for possible drug interactions per policy. No contraindications or sensitivities were noted. Meds taken: 1 puff Advair 6 hours before testing. 4 puffs Albuterol (360 mcg) delivered by MDI via holding chamber. HR pre = 74 /min, HR post = 70/min. DLCO: Current ATS/ERS acceptability and repeatability standards for DLCO met with 2 acceptable maneuvers. // us Mamadou Madrid MD SCHEDULED PROCEDURES Final Resul t PULMONARY FUNCTION LAB [address] 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- Primary documented in this encounter Care Teams Healthcare Insurance Sales Agent Relationship Specialty Start Date End Date Ny Hurtado NP [address] [place] [address] PCP - General Family Medicine 08/03/24 Nolberto Thomas [address] [place] [address] Primary Staff Physician Cardiology 07/18/18 Flory Fan MD [address] [place], [place] [phone] Primary Staff Physician Cardiology 05/18/22 [place] [address] [place] [address] Candy Packer Cardiology 05/24/24 [place] [address] [place] [address] Candy Packer Cardiology 05/24/24 Jose Fontaine MD [address] [place] [address] Surgeon Cardiac Surg 05/25/24 documented as of this encounter
--- OUTSIDE RECORDS SUMMARY | 2024-10-19 14:00 | XMS_ITS | Encounter Summary ---
Author Organization [facility] Address [facility] [place] [address] Care Team Providers Care Ocean Import Representative Name Role Phone Nolberto Thomas Unavailable [phone] Lo Flory Lovett MD Unavailable [phone] Justina Natarajan MD Unavailable [phone] Manny James MD Unavailable [phone] Jose Fontaine MD Unavailable [phone] Ny Hurtado NP Primary Care Provider [phone] Source Comments In the event this information is protected by the Federal Confidentiality of Alcohol and Drug AbusePatient Records regulations: The Federal rules restrict any use of the information to criminally investigate or prosecute any alcohol or drug abuse patient.[facility] Reason for Visit * Reason Comments Spirometry * Outpatient Procedure (Routine) - Closed Specialty Diagnoses / Procedures Referred By Contac t Referred To Contact [facility] Diagnoses group home current use of amiodarone Procedures SPIROMETRY - BASELINE AND POST DILATOR BRNCDILAT RSPSE SPMTRY PRE&[place] [address] [place] [address] Phone: tel: fax: [facility] [place] [address] [place] [address] Referral ID Status Reason Start Date Expiration Date V isits Requested Visits Authorized [id number] Closed Auto-Generate d Referral 09/10/2024 10/10/2025 1 1 Encounter Details Date Type Department Care Team (Late st Contact Info) Description 10/19/2024 2:00 PM EDT Procedure Pulmonary Medicine [address] [place], [place] [phone] Spirometry Social History Tobacco Use Types Packs/Day [...] is lower risk 6 09/14/2022 Data from: https://www.neighborhoodatlas.medicine.[facility].edu/. Last address used for calculation [address] 09/14/2022 Education Answer Date Recorded What [...] 12/05/2024 2:20 PM EDT Office Visit Cardiology [address] [place] [address] [place] [address] [place], [place] [phone] Return in about 4 months (around 11/16/2024). documented as of this encounter Goals Goal Patient Goal Type Associated Problems Recent Progress Patient-Stated? Author Blood Pressure < 130/80 Blood Pressure 118/60(2024 3:28 PM EDT) Puja Lakhani documented as of this encounter Procedures Procedure Name Priority Date/Time Associated Diagnosis Comments SPIROMETRY - BASELINE AND POST DILATOR Routine 10/19/2024 2:04 PM EDT group home current use of amiodarone documented in this encounter Results * SPIROMETRY - BASELINE AND POST DILATOR (10/19/2024 2:04 PM EDT) FVC PRE (L) 4.61 L PULMONAR Y FUNCTION LAB FVC POST (L) 4.56 L PULMONA RY FUNCTION LAB FVC PREDICTED (L) 3.52 L PULMONARY FUNCTION LAB FVC LLN (L) 2.60 L PULMONAR Y FUNCTION LAB FVC ULN (L) 4.46 L PULMONAR Y FUNCTION LAB FEV1 PRE (L) 2.80 L PULMONA RY FUNCTION LAB FEV1_POST (L) 2.84 L PULMON ROSALVA FUNCTION LAB FEV1 PREDICTED (L) 2.62 L PULMONARY FUNCTION LAB FEV1 LLN (L) 1.89 L PULMONA RY FUNCTION LAB FEV1 ULN (L) 3.30 L PULMONA RY FUNCTION LAB FEV1/FVC PRE (%) 61 % PULMONARY FUNCTION LAB FEV1/FVC POST (%) 62 % PULMONARY FUNCTION LAB FEV1/FVC PREDICTED (%) 76 % PULMONARY FUNCTION LAB FEV1/FVC LLN (%) 62 % PULMONARY FUNCTION LAB FEF25% PRE (L/S) 4.35 L/S PULMONARY FUNCTION LAB FEF25% POST (L/S) 4.76 L/S PULMONARY FUNCTION LAB FEF75% PRE (L/S0 0.42 L/S PULMONARY FUNCTION LAB FEF75% POST (L/S) 0.43 L/S PULMONARY FUNCTION LAB FEF75% PREDICTED (L/S) 0.49 L/S PULMONARY FUNCTION LAB FEF75% LLN (L/S) 0.16 L/S PULMONARY FUNCTION LAB FEF75% ULN (L/S) 1.37 L/S PULMONARY FUNCTION LAB ASD42-87% PRE (L/S) 1.16 L/S PULMONARY FUNCTION LAB ARG57-14% POST (L/S) 1.17 L/S PULMONARY FUNCTION LAB BGL14-35% PREDICTED (L/S) 1.97 L/S PULMONARY FUNCTION LAB KBR04-90% LLN (L/S) 0.76 L/S PULMONARY FUNCTION LAB PEF PRE (L/S) 8.03 L/S PULMON ROSALVA FUNCTION LAB PEF POST (L/S) 8.46 L/S PULMO NARY FUNCTION LAB PEF LLN (L/S) 4.74 L/S PULMON ROSALVA FUNCTION LAB PEF ULN (L/S) 9.10 L/S PULMON ROSALVA FUNCTION LAB SVC PREDICTED (L) 3.52 L/S PULMONARY FUNCTION LAB SVC LLN (L) 2.60 L/S PULMONAR Y FUNCTION LAB SVC ULN (L) 4.46 L/S PULMONAR Y FUNCTION LAB IC PREDICTED (L) 2.35 L/S PULMONARY FUNCTION LAB ERV PREDICTED (L) 1.17 L/S PULMONARY FUNCTION LAB DLCO (ml/min/mmHg) 22.96 ml/min/mmH g PULMONARY FUNCTION LAB DLCO PREDICTED (ml/min/mmHg) 23.07 ml/min/mmH g PULMONARY FUNCTION LAB DLCO LLN (ml/min/mmHg) 16.71 ml/min/mmH g PULMONARY FUNCTION LAB DLCO ULN (ml/min/mmHg) 30.71 ml/min/mmH g PULMONARY FUNCTION LAB FET PRE (S) 15.60 S PULMONAR Y FUNCTION LAB FET POST (S) 13.72 S PULMONA RY FUNCTION LAB VA (L) 7.23 L PULMONARY FUNCTION LAB VA PREDICTED (L) 5.87 L PULMONARY FUNCTION LAB DLCO/VA (ml/min/mmHg/L) 0.03 ml/min/mmH g/L PULMONARY FUNCTION LAB DLCO/VA PREDICTED (ml/min/mmHg/L) 0.04 ml/min/mmH g/L PULMONARY FUNCTION LAB DLCOcor (ml/min/mmHg) 22.71 ml/min/mmH g PULMONARY FUNCTION LAB DLCOcor PREDICTED (ml/min/mmHg) 23.07 ml/min/mmH g PULMONARY FUNCTION LAB DLCO/VAcor (ml/min/mmHg/L) 0.03 ml/min/mmH g/L PULMONARY FUNCTION LAB 10/19/2024 2:04 PM EDT Narrative PULMONARY FUNCTION LAB - 10/19/2024 3:50 PM EDT [facility] [address] 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 current use of amiodarone- Primary documented in this encounter Care Teams Ocean Import Representative Relationship Specialty Start Date End Date yN Hurtado NP [address] [place] [address] [address] [place] [address] PCP - General Family Medicine 08/03/24 Nolberto Thomas [address] [place] [address] Primary Staff Physician Cardiology 07/18/18 Flory Fan MD [address] [place], [place] [phone] Primary Staff Physician Cardiology 05/18/22 [place] [address] [place] [address] Hadoop Architect Cardiology 05/24/24 [place] [address] [place] [address] Hadoop Architect Cardiology 05/24/24 Jose Fontaine MD [address] [place], [place] [phone] Surgeon Cardiac Surg 05/25/24 documented as of this encounter
--- OUTSIDE RECORDS SUMMARY | 2024-10-19 15:30 | XMS_ITS | Encounter Summary ---
Author Organization [facility] Address [facility] [place] [address] Care Team Providers Care Coper Hand Name Role Phone Nolberto Thomas Unavailable Lo Flory Lovett MD Unavailable [phone] Justina Natarajan MD Unavailable [phone] Manny James MD Unavailable Jose Fontaine MD Unavailable [phone] Ny Hurtado NP Primary Care Provider [phone] Source Comments In the event this information is protected by the Federal Confidentiality of Alcohol and Drug AbusePatient Records regulations: The Federal rules restrict any use of the information to criminally investigate or prosecute any alcohol or drug abuse patient.[facility] Reason for Referral * Outpatient Procedure (Routine) - New Request Specialty Diagnoses / Procedures Referred By Contac t Referred To [facility] Diagnoses Persistent atrial fibrillation (HCC) Current use of halfway anticoagulation Procedures ECG COMPLETE ECG ROUTINE ECG W/LEAST 12 LDS W/I&R Carmen Goldberg APRN.GATE AGENT [address] [place] [address] Phone: tel: fax: [facility] [address] [facility] [place] [address] Referral ID Status Reason Start Date Expiration Date Visits Requested Visits Authorized [id number] New Request Auto-Generat ed Referral 10/19/2024 10/19/2025 1 1 Reason for Visit * Reason Comments Established Patient Encounter Details Date Type Department Care Team (Latest Contact Info) Description 10/19/2024 3:30 PM EDT Office Visit Cardiology [address] [place] [address] Carmen Goldberg APRN.CNP [address] [place] [address] Current use of joint terminal attack controller anticoagulation (Primary Dx); Persistent atrial fibrillation (HCC) Social History Tobacco Use Types Packs/Day Years [...] is lower risk 6 09/14/2022 Data from: https://www.neighborhoodatlas.medicine.[facility]/. Last address used for calculation [address] 09/14/2022 Education Answer Date Recorded What [...] on file documented as of this encounter Last Filed Vital Signs Vital Sign Reading Time Taken Comments Blood Pressure 118/60 10/19/2024 3:28 PM EDT Pulse 82 10/19/2024 3:28 PM EDT Temperature - - Respiratory Rate - - Oxygen Saturation 96% 10/19/2024 3:28 PM EDT Inhaled Oxygen Concentration - - Weight 93.4 kg (206 lb) 10/19/2024 3:28 PM EDT Height 177.8 cm (5' 10 ) 10/19/2024 3:28 PM EDT Body Mass Index 29.56 10/19/2024 3:28 PM EDT documented in this encounter Functional Status * Are you deaf or do you have serious difficulty hearing? Answer Date of Assessment Author No 05/20/2022 8:18 AM EST Krissy Draper RN * Are you blind or do [...] Krissy Franco RN documented in this encounter Patient Instructions * Patient Instructions* Carmen Goldberg APRN.CNP - 10/19/2024 4:16 PM EDT I will discuss with Dr. Madrid and we will discuss a date for the ablation. Please continue with current medication regimen. documented in this encounter Progress Notes * Carmen Goldberg APRN.CNP - 10/19/2024 2:02 PM EDT Images from the original note were not included. s [facility] Misty Henning Department of Cardiovascular Medicine SECTION OF CARDIAC PACING and ELECTROPHYSIOLOGY OUTPATIENT VISIT DATE October 19, 2024 OUTPATIENT VISIT TYPE ESTABLISHED PRIMARY CARE PHYSICIAN: Ny Hurtado [address] [place] [address] [address] [place] [address] CHIEF COMPLAINT: follow up arrhythmia management HISTORY OF PRESENT ILLNESS: Mr. Peraza is a 79 year old male who presents today for evaluated by Dr. James, Dr. Au, Dr. Madrid for known LBBB, persistent atrial fibrillation (2002: s/p PVI in 2022, h/o antiarrhythmicmedication Tikosyn, d/c due to renal fxn, current antiarrhythmic medication: amiodarone), s/p watchman (h/o GIB), Other PMH of hypertension, hyperlipidemia, h/o tobacco use, COPD, GERD, depression, h/ o substance use (etoh), osteoarthritis, s/p facet radiofrequency ablation L4-5, L5-S1, halfway anticoagulation. He states uses [employer] mobile to monitor arrhythmia, around August 09, 2024, when he converted to NSR, has been compliant with medications, wants to sleep all the time, no energy, has been feeling thisway for one year, his psychiatrist changed his SSRI medication to help, and it has somewhat but still occurring Has not been using cpap machine recently due to broken in the process of obtaining a new one He denies chest pain, shortness of breath, orthopnea, cough, edema, palpitations, PND, lightheadedness or syncope. PAST CARDIAC HISTORY: see below PAST MEDICAL HISTORY Diagnosis Date Arthritis CAD [...] LAD CARDIOVERSION 11/14/15 CATHETER, ABLATION A-2003 at [facility] HERNIA REPAIR HX 05/2011 left inguinal [...] date: 05/02/1970 Quit date: 05/02/1985 Years since quittin.4 Smokeless tobacco: Never Substance Use Topics Alcohol [...] old ALLERGIES: ALLERGIES No Known Allergies MEDICATIONS: furosemide (LASIX) 20 mg tablet Take 1 tablet by mouth once daily. Can take additional 20 mg as needed for swelling or >2 lb weight gain overnight. amLODIPine (NORVASC) 5 mg tablet Take 1 tablet by mouth once daily. apixaban (ELIQUIS) 5 mg tab(s) Take 1 tablet by mouth two times a day. atorvastatin (LIPITOR) 40 mg tablet Take 1 tablet by mouth once daily. Need appointment for future refills spironolactone (ALDACTONE) 25 mg tablet Take 1 tablet by mouth once daily. escitalopram oxalate (LEXAPRO) 5 mg tablet Take 5 mg by mouth once daily. losartan (COZAAR) 50 mg tablet Take 2 tablets by mouth once daily. amiodarone (PACERONE) 200 mg tablet 200 mg 3 times daily for 1 week followed by 200 mg 2 times daily for 3 weeks followed by 200 mg daily thereafter bisoprolol (ZEBETA) 5 mg tablet Take 1 tablet by mouth two times a day. omega-3/dha/epa/fish oil (OMEGA-3 ORAL) Take by mouth once daily. acetaminophen 650 mg CR tablet Every [...] (FLONASE) 50 mcg/actuation nasal spray Use 1 [place] in each nostril once daily. coenzyme Q10 100 mg cap Take 100 mg by mouth once daily. albuterol HFA (PROAIR HFA) 90 mcg/actuation inhaler Inhale 2 Puffs as instructed every 6 hours as needed. Fuailkjnmlr-Hmgzdonjy-Zzr C-Mn 500-400 mg cap Take 1 capsule by mouth twice daily. REVIEW OF SYSTEMS: GENERAL: Negative for: Weight loss or gain, Fever or Chills, Weakness and Sleep difficulties. NECK: Negative for: Swelling, Pain, Stiffness RESPIRATORY: [...] Cold Intolerance, Excessive Sweating, Frequent Urination, FrequentThirst PHYSICAL EXAMINATION: General: Well appearing, in no acute distress, speaking in complete sentences. Neck: + jugular venous distention, no carotid bruits, carotids have a normal upstroke Lungs: Clear to auscultation bilaterally, no wheezing or rhonchi. Heart: irregular rhythm, rate normal, no S3, no S4, no heaves, no rub and no murmur. Abdomen: Soft, nontender, bowel sounds normal, no palpable organomegaly, no bruits. Extremities: bilateral pitting 1+ peripheral edema . Grade 2/4 distal pulses bilaterally. Neuro: Oriented to person, place and time, alert, cooperative CARDIOVASCULAR MEDICINE TESTING: Reviewed VS, labs, previous cardiac testing EC10-19-24 ECHO:10-19-24 Exam indication: H/o Chronic HFrEF, PAF - The left ventricle is normal in size. There is minimal septal left ventricular hypertrophy. Left ventricular systolic function is normal. EF = 53 ?? 5% (visual est.) - The right ventricle is mildly dilated. Right ventricular systolic function is normal. - The left atrial cavity is moderately dilated. - The right atrial cavity is mildly dilated. - The visualized aorta is dilated: Sinus 4.0cm, Mid-ascending 4.0cm, distal-ascending 4.0cm. - Mild (1+) AR, Mild (1+) TR. - Exam was compared with the prior echocardiographic exam performed on 11/17/2023. (YOGESH) report comparison only. [facility]: 05-18-2024 FINDINGS: Hemodynamics: LV pressure: 101/EDP 5. Aortic pressure: 101/61 mean 78. Comment: There was no gradient demonstrated from LV to aorta pullback. CORONARY ARTERIES: LEFT MAIN: This is a large caliber, medium length, normal vessel. LEFT ANTERIOR DESCENDING: This is a large caliber vessel advancing to the apex demonstrating moderate proximal to midvessel luminal irregularity/ectasia with more discrete mid vessel 40% cleft like stenoses. CIRCUMFLEX: This is a medium caliber vessel, existing distally as a small caliber obtuse marginal 1branch which demonstrates 80% mid stenosis. RIGHT CORONARY ARTERY: This is a large caliber, dominant vessel demonstrating moderate diffuse luminal irregularity with a more discrete 50% mid stenosis, as well as 70% stenosis pre-crux. There is evidence of an 80% eccentric napkin ring like stenosis at the ostium of the posterior descending artery. SUMMARY: 1. Mild left anterior descending disease. 2. Severe circumflex marginal disease. 3. Moderate to severe right coronary artery and posterior descending branch disease. CTA: 05-29-24 1. Probable trileaflet aortic valve morphology with mild leaflet calcification. 2. Mild dilatation of the aortic root (4.3 cm) and mid ascending aorta (4.1 cm). Remainder of the thoracic aorta is essentially normal in caliber. No acute aortic pathology. No significant calcific atherosclerotic changes throughout the thoracic aorta. No significant pericardial effusion. PFTs:10-19-24 Spirometry indicates mild obstruction. Negative bronchodilator response. The diffusion capacity (uncorrected for hemoglobin) is normal. IMPRESSION: Mr. Peraza is a 79 year old male with known LBBB, persistent atrial fibrillation (2002: s/p PVI in [place], 2022, h/o antiarrhythmic medication Tikosyn, d/c due to renal fxn, current antiarrhythmic medication: amiodarone), s/p watchman (h/o GIB). ECG atrial fibrillation with controlled ventricular rate, appears euvolemic, component of trace of swelling in legs appears r/t peripheral venous insufficiency, has had weight loss of 8lbs Long discussion with the patient the following: -reviewed echo report EF 53%, normal valvular function, aorta no change in size, PFTs mild obstructed disease -rhythm control strategy vs. rate control, he in favor of an repeat ablation -the importance of monitoring weight & swelling to prevent heart failure -the importance of restarting the cpap PLAN AND RECOMMENDATIONS: I will discuss with Dr. Madrid and we can call if he considers ablation Continue with current medication regimen Follow up appointment: pending above I spent 40 minutes in the visit, with more than 50% of the total qctz-sa-jkub time of the visit in counseling / coordination of care. CONTACT INFORMATION: Carmen Goldberg APRN.CNP, 10/19/24 [facility] Second Floor [address] [place] [address] documented in this encounter Plan of Treatment Upcoming Encounters Date Type Department Care Team (Late st Contact Info) Description 12/05/2024 2:20 PM EDT Office Visit Cardiology [address] [place] [address] [place] [address] [place] [address] Return in about 4 months (around 11/16/2024). Scheduled Orders Name Type Priority Associated Diagnoses Orde r Schedule ECG COMPLETE ECG Routine Persistent atrial fibrillation (HCC) Current use of halfway anticoagulation Ordered: 10/19/2024 documented as of this encounter Goals Goal Patient Goal Type Associated Problems Recent Progress Patient-Stated? Author Blood Pressure < 130/80 Blood Pressure 118/60(2024 3:28 PM EDT) Puja Lakhani documented as of this encounter Visit Diagnoses Diagnosis Current use of joint terminal attack controller anticoagulation- Primary Long-term (current) use of anticoagulants Persistent atrial fibrillation (HCC) Atrial fibrillation documented in this encounter Care Teams Coper Hand Relationship Specialty Start Date End Date Ny Hurtado NP [address] [facility] [address] [place] [address] PCP - General Family Medicine 08/03/24 Nolberto Thomas [address] [place] [address] Primary Staff Physician Cardiology 07/18/18 Flory Fan MD [address] [place] [address] Primary Staff Physician Cardiology 05/18/22 [place] [address] [place] [address] Manager Report Cardiology 05/24/24 [place] [address] [place] [address] Manager Report Cardiology 05/24/24 Jose Fontaine MD [address] [place] [address] Surgeon Cardiac Surg 05/25/24 documented as of this encounter
[2024-10-21] VITALS (18 sets, daily range): BP systolic 118–134; BP diastolic 77–82; PULSE 63–76; TEMP 37.3; O2SAT 95–100; BMI 29.6
--- OUTSIDE RECORDS SUMMARY | 2024-10-21 09:34 | XMS_ITS | Encounter Summary ---
Author Organization [facility] Address [facility] [place] [address] Care Team Providers Care Oracle Analyst Name Role Phone EveretteLambertoyesica Armstrong BUG TRIMMER Primary Care Provider Nolberto Thomas Unavailable [phone] Lo Flory Lovett MD Unavailable Justina Natarajan MD Unavailable [phone] Jamal Simon MD Unavailable [phone] Manny James MD Unavailable Jose Fontaine MD Unavailable [phone] Ny Hurtado NP Primary Care Provider Source Comments In the event this information is protected by the Federal Confidentiality of Alcohol and Drug AbusePatient Records regulations: The Federal rules restrict any use of the information to criminally investigate or prosecute any alcohol or drug abuse patient.[facility] Encounter Details Date Type Department Care Team (Late st Contact Info) Description 07/08/2020 Patient Msg Cardiology [address] [facility] [address] [place] [address] Provider, [facility] Your 09/03/[address] James is canceled; please call to reschedule Social History Tobacco Use Types Packs/Day Years Used Date Smoking Tobacco: Former Cigarettes 1.5 16 0 05/02/1969 - 05/02/1985 Smokeless Tobacco: Never Alcohol Use Standard Drinks/Week Comments Yes 0 (1 standard drink = 0.6 oz pure alcohol) has an occasional drink, previously drank 2-3 per day Overall Financial Resource Strain (CARDIA) Answe r Date Recorded How hard is it for you to pa y for the very basics like food, housing, medical care, and heating? Not hard at all 02/27/2020 PHQ-2 Answer Date Recorded PHQ2 Score 4 07/28/2018 Hunger Vital Sign Answer Date Recorded Within [...] (1-100), lower number is lower ri sk Not on file 04/07/2020 State Score (1-10), lower number is lower risk N ot on file 04/07/2020 Data from: https://www.neighborhoodatlas.medicine.[facility].edu/. Last address used for calculation Not on file 04/07/2020 Education Answer Date Recorded What is the [...] hearing? Answer Date of Assessment Author No 02/27/2020 8:37 PM EDT Adilene Vora RN * Are you blind or do you have serious difficulty seeing, even when wearing glasses? Answer Date of Assessment Author No 02/27/2020 8:37 PM EDT Adilene Vora RN * Do you have serious difficulty walking or climbing stairs? Answer Date of Assessment Author No 02/27/2020 8:37 PM EDT Adilene Vora RN * Do you have difficulty dressing or bathing? Answer Date of Assessment Author No 02/27/2020 8:37 PM JOSÉ MIGUELT Adilene Vora RN * Because of a physical, mental, or emotional condition, do you have difficulty doing errands alone such as visiting a doctor's office or shopping? Answer Date of Assessment Author No 02/27/2020 8:37 PM EDT Adilene Vora RN documented as of this encounter Mental Status * Because of a physical, mental, or emotional condition, do you have serious difficulty concentrating, remembering, or making decisions? Answer Entry Date Author No 02/27/2020 8:37 PM Adilene Banks RN documented in this encounter Plan of Treatment Upcoming Encounters Date Type Department Care Team (Late st Contact Info) Description 12/05/2024 2:20 PM EDT Office Visit Cardiology [address] [place] [address] [place] [address] [place] [address] Return in about 4 months (around 11/16/2024). documented as of this encounter Visit Diagnoses Not on filedocumented in this encounter Additional Health Concerns Infection Onset Date Last Indicated Resolved Time COVID-19 Rule-Out 05/18/2022 05/18/2022 05/18/2022 3:56 PM EST documented as of this encounter Care Teams Oracle Analyst Relationship Specialty Start Date End Date Scarlett Gaviria, BUG TRIMMER [facility] [place] [address] PCP - General Family Medicine 10/15/15 08/02/24 Ny Hurtado NP [address] [place] [address] PCP - General Family Medicine 08/03/24 Nolberto Thomas [address] [place] [address] Primary Staff Physician Cardiology 07/18/18 Flory Fan MD [address] [place] [address] Primary Staff Physician Cardiology 05/18/22 [place] [address] [place] [address] [employer] [facility] 05/24/24 Jamal Simon MD [address] [place] [address] Surgeon Cardiac Surg 05/24/24 05/24/24 [place] [address] [place] [address] [employer] [facility] 05/24/24 Jose Fontaine MD [address] [place] [address] Surgeon Cardiac Surg 05/25/24 documented as of this encounter
--- OUTSIDE RECORDS SUMMARY | 2024-10-21 09:34 | XMS_ITS | Clinical Summary ---
Author Organization [employer] [facility] Address [id number] [id number] Care Team Providers Care Net Sql Developer Name Role Phone Unavailable Primary Care Provider Unavailabl e Social History Tobacco Use Types Packs/Day Years Used Date Smoking Tobacco: Never Assessed Childcare Answer Date Recorded Childcare Unknown 10/11/2018 Employment Answer Date Recorded Employment Unknown 10/11/2018 Sex and Gender Information Value Date Recorded Sex Assigned at Not on file Legal Sex Male 11:32 AM EDT Gender Identity Not on file Sexual Orientation Not on file Plan of Treatment Health Maintenance Due Date Last Done Comments Depression Screening 1957 Tobacco Screening 1957 Fall Risk Screening 2011 COVID-19 Vaccine (2023-2 5 season) 2024 09/10/2021, 03/06/2021, 06/27/2020, Additional history exists Influenza Vaccine 12/31/2024 03/06/2021, , 02/08/2021, Additional history exists DTaP,Tdap and Td Vaccines (3 - Td or Tdap) 09/09/2030 09/09/2020, 05/01/2015 Zoster (Shingles) Vaccine Completed 05/01/2019, 10/2018 Medical Devices Not on file Insurance [employer]
--- OUTSIDE RECORDS SUMMARY | 2024-10-21 09:35 | XMS_ITS | Encounter Summary ---
Author Organization [facility] Address [facility] [place] [address] Care Team Providers Care Cork Painter And Grader Name Role Phone EveretteLambertoyesica Armstrong EXCELSIOR MACHINE FEEDER Primary Care Provider [phone] Nolberto Thomas Unavailable [phone] Lo Flory Lovett MD Unavailable [phone] Justina Natarajan MD Unavailable [phone] Jamal Simon MD Unavailable [phone] Manny James MD Unavailable [phone] Jose Fontaine MD Unavailable [phone] Ny Hurtado NP Primary Care Provider [phone] Source Comments In the event this information is protected by the Federal Confidentiality of Alcohol and Drug AbusePatient Records regulations: The Federal rules restrict any use of the information to criminally investigate or prosecute any alcohol or drug abuse patient.[facility] Encounter Details Date Type Department Care Team (Late st Contact Info) Description 05/22/2024 Patient Msg Cardiology [address] [place] [address] Provider, [facility]cf Cardiology Chest CTA Appointment Social History Tobacco Use Types Packs/Day Years [...] 02/27/2020 PHQ-2 Answer Date Recorded PHQ-2 score 3 01/16/2024 Hunger Vital Sign Answer Date Recorded Within [...] [email or web address]/. Last address used for calculation [address] 09/14/2021 Education Answer Date Recorded [...] 12/05/2024 2:20 PM EDT Office Visit Cardiology [address] [place] [address] [place] [address] [place] [address] Return in about 4 months (around 11/16/2024). documented as of this encounter Goals Goal Patient Goal Type Associated Problems Recent Progress Patient-Stated? Author Blood Pressure < 130/80 Blood Pressure 118/60(2024 3:28 PM EDT) No Puja Batista documented as of this encounter Visit Diagnoses Not on filedocumented in this encounter Care Teams Cork Painter And Grader Relationship Specialty Start Date End Date Scarlett Gaviria, EXCELSIOR MACHINE FEEDER [facility] [place] [address] PCP - General Family Medicine 10/15/15 08/02/24 Ny Hurtado NP [address] [facility] [address] [place] [address] PCP - General Family Medicine 08/03/24 Nolberto Thomas [address] [place] [address] Primary Staff Physician Cardiology 07/18/18 Flory Fan MD [address] [place] [address] Primary Staff Physician Cardiology 05/18/22 [place] [address] [place] [address] Training Specialist Cardiology 05/24/24 Jamal Simon MD [address] [facility] [place] [address] Surgeon Cardiac Surg 05/24/24 05/24/24 [place] [address] [place] [address] Training Specialist Cardiology 05/24/24 Jose Fontaine MD [address] [place] [address] Surgeon Cardiac Surg 05/25/24 documented as of this encounter
--- OUTSIDE RECORDS SUMMARY | 2024-10-21 09:35 | XMS_ITS | Encounter Summary ---
Author Organization [facility] Address [facility] [place] [address] Care Team Providers Care Mint Wafer Depositor Name Role Phone EveretteLambertoyesica Armstrong VENEER SORTER Primary Care Provider Nolberto Thomas Unavailable [phone] Lo Flory Lovett MD Unavailable Justina Natarajan MD Unavailable [phone] Jamal Simon MD Unavailable [phone] Manny James MD Unavailable Jose Fontaine MD Unavailable [phone] Ny Hurtado NP Primary Care Provider Source Comments In the event this information is protected by the Federal Confidentiality of Alcohol and Drug AbusePatient Records regulations: The Federal rules restrict any use of the information to criminally investigate or prosecute any alcohol or drug abuse patient.[facility] Encounter Details Date Type Department Care Team (Latest Contact Info) Description 05/14/2024 Patient Msg Cardiology [address] [place] [address] Provider, [facility] Heart catheterization scheduling at [facility] Social History Tobacco Use Types Packs/Day Years [...] is lower risk 6 09/14/2022 Data from: https://www.neighborhoodatlas.medicine.[facility].edu/. Last address used for calculation [address] 09/14/2022 Education Answer Date Recorded What [...] 12/05/2024 2:20 PM EDT Office Visit Cardiology [address] [place] [address] [place] [address] [place] [address] Return in about 4 months (around 11/16/2024). documented as of this encounter Goals Goal Patient Goal Type Associated Problems Recent Progress Patient-Stated? Author Blood Pressure < 130/80 Blood Pressure 118/60(2024 3:28 PM EDT) No Puja Batista documented as of this encounter Visit Diagnoses Not on filedocumented in this encounter Care Teams Mint Wafer Depositor Relationship Specialty Start Date End Date Scarlett Gaviria, VENEER SORTER [facility] [place] [address] PCP - General Family Medicine 10/15/15 08/02/24 Ny Hurtado NP [address] [facility] [address] [place] [address] PCP - General Family Medicine 08/03/24 Nolberto Thomas [address] [place] [address] Primary Staff Physician Cardiology 07/18/18 Flory Fan MD [address] [place] [address] Primary Staff Physician Cardiology 05/18/22 [place] [address] [place] [address] Logging Equipment Operator Cardiology 05/24/24 Jamal Simon MD [address] [place] [address] Surgeon Cardiac Surg 05/24/24 05/24/24 [place] [address] [place] [address] Logging Equipment Operator Cardiology 05/24/24 Jose Fontaine MD [address] [place] [address] Surgeon Cardiac Surg 05/25/24 documented as of this encounter
--- OUTSIDE RECORDS SUMMARY | 2024-10-21 09:35 | XMS_ITS | Encounter Summary ---
Author Organization [facility] Address [facility] [place] [address] Care Team Providers Care Sleeve Wheel Maker Name Role Phone Everette Scarlett L BONE DENSITY TECHNICIAN Primary Care Provider [phone] Nolberto Thomas Unavailable [phone] Lo Flory Lovett MD Unavailable Justina Natarajan MD Unavailable [phone] Manny James MD Unavailable [phone] Jose Fontaine MD Unavailable [phone] Ny Hurtado NP Primary Care Provider [phone] Source Comments In the event this information is protected by the Federal Confidentiality of Alcohol and Drug AbusePatient Records regulations: The Federal rules restrict any use of the information to criminally investigate or prosecute any alcohol or drug abuse patient.[facility] Encounter Details Date Type Department Care Team (Late st Contact Info) Description 08/02/2024 Patient Msg Cardiology [address] [place] [address] Provider, Ccf List of Providers you Requested Social History Tobacco Use Types Packs/Day Years [...] is lower risk 6 09/14/2022 Data from: https://www.neighborhoodatlas.medicine.[facility].edu/. Last address used for calculation [address] 09/14/2022 Education Answer Date Recorded What [...] 12/05/2024 2:20 PM EDT Office Visit Cardiology [address] [place] [address] [place] [address] [place] [address] Return in about 4 months (around 11/16/2024). documented as of this encounter Goals Goal Patient Goal Type Associated Problems Recent Progress Patient-Stated? Author Blood Pressure < 130/80 Blood Pressure 118/60(2024 3:28 PM EDT) No Puja Batista documented as of this encounter Visit Diagnoses Not on filedocumented in this encounter Care Teams Sleeve Wheel Maker Relationship Specialty Start Date End Date Scarlett Gaviria, BONE DENSITY TECHNICIAN [address] [place], [place] [address]sel[address] [facility] [place] [address] PCP - General Family Medicine 10/15/15 08/02/24 Ny Hurtado NP [address] [facility] [address] [place], [place] [address] PCP - General Family Medicine 08/03/24 Nolberto Thomas [address] [place] [address] Primary Staff Physician Cardiology 07/18/18 Flory Fan MD [address] [place] [address] Primary Staff Physician Cardiology 05/18/22 [place] [address] [place] [address] Podiatry Teacher Cardiology 05/24/24 [place] [address] [place] [address] Podiatry Teacher Cardiology 05/24/24 Jose Fontaine MD [address] [place], [place] [address] Surgeon Cardiac Surg 05/25/24 documented as of this encounter
--- OUTSIDE RECORDS SUMMARY | 2024-10-21 09:35 | XMS_ITS | Encounter Summary ---
Author Organization [facility] Address [facility] [place] [address] Care Team Providers Care Lead Pl Sql Developer Name Role Phone EveretteLambertoyesica Armstrong OPHTHALMIC SURGICAL ASSISTANT Primary Care Provider Nolberto Thomas Unavailable [phone] Lo Flory Lovett MD Unavailable [phone] Justina Natarajan MD Unavailable [phone] Jamal Simon MD Unavailable [phone] Manny James MD Unavailable Jose Fontaine MD Unavailable [phone] Ny Hurtado NP Primary Care Provider Source Comments In the event this information is protected by the Federal Confidentiality of Alcohol and Drug AbusePatient Records regulations: The Federal rules restrict any use of the information to criminally investigate or prosecute any alcohol or drug abuse patient.[facility] Encounter Details Date Type Department Care Team (Late st Contact Info) Description 05/07/2024 Patient Msg Cardiology [address] [facility] [place] [phone] [place] [address] [facility]. [place] [id number] Appointment Request () Social History Tobacco Use Types Packs/Day Years [...] is lower risk 6 09/14/2022 Data from: https://www.neighborhoodatlas.medicine.[facility].edu/. Last address used for calculation [address] 09/14/2022 Education Answer Date [...] 12/05/2024 2:20 PM EDT Office Visit Cardiology [address] [place] [address] [place] [address] [place] [address] Return in about 4 months (around 11/16/2024). documented as of this encounter Goals Goal Patient Goal Type Associated Problems Recent Progress Patient-Stated? Author Blood Pressure < 130/80 Blood Pressure 118/60(2024 3:28 PM EDT) No Puja Batista documented as of this encounter Visit Diagnoses Not on filedocumented in this encounter Care Teams Lead Pl Sql Developer Relationship Specialty Start Date End Date Scarlett Gaviria, OPHTHALMIC SURGICAL ASSISTANT [address] [place] [address] PCP - General Family Medicine 10/15/15 08/02/24 Ny Hurtado NP [address] [facility] [address] [place] [address] PCP - General Family Medicine 08/03/24 Nolberto Thomas [address] [place] [address] Primary Staff Physician Cardiology 07/18/18 Flory Fan MD [address] [place], [place] [address] Primary Staff Physician Cardiology 05/18/22 [place] [address] [place], [place] [address] Clinical Applications Specialist Cardiology 05/24/24 Jamal Simon MD [address] [place], [place] [address] Surgeon Cardiac Surg 05/24/24 05/24/24 [place] [address] [place] [address] Clinical Applications Specialist Cardiology 05/24/24 Jose Fontaine MD [address] [place] [address] Surgeon Cardiac Surg 05/25/24 documented as of this encounter
--- OUTSIDE RECORDS SUMMARY | 2024-10-21 09:35 | XMS_ITS | Encounter Summary ---
Author Organization [facility] Address [facility] [place] [address] Care Team Providers Care Wall Cleaner Name Role Phone Scarlett Gaviria MINING ANALYST Primary Care Provider [phone] Nolberto Thomas Unavailable [phone] Lo Flory Lovett MD Unavailable Justina Natarajan MD Unavailable [phone] Manny James MD Unavailable Jose Fontaine MD Unavailable [phone] Ny Hurtado NP Primary Care Provider [phone] Source Comments In the event this information is protected by the Federal Confidentiality of Alcohol and Drug AbusePatient Records regulations: The Federal rules restrict any use of the information to criminally investigate or prosecute any alcohol or drug abuse patient.[facility] Encounter Details Date Type Department Care Team (Late st Contact Info) Description 06/14/2024 Patient Msg Cardiology [address] [place] [address] Provider, Ccf CARDIOVERSION Social History Tobacco Use Types Packs/Day Years [...] risk 6 09/14/2022 Data from: https://www.neighborhoodatlas.medicine.[facility].edu/. Last address used for calculation [address] 09/14/2022 Education Answer Date Recorded What [...] 12/05/2024 2:20 PM EDT Office Visit Cardiology [address] [place] [address] [place] [address] [place] [address] Return in about 4 months (around 11/16/2024). documented as of this encounter Goals Goal Patient Goal Type Associated Problems Recent Progress Patient-Stated? Author Blood Pressure < 130/80 Blood Pressure 118/60(2024 3:28 PM EDT) No Puja Batista documented as of this encounter Visit Diagnoses Not on filedocumented in this encounter Care Teams Wall Cleaner Relationship Specialty Start Date End Date Scarlett Gaviria, CHA [address] [place] [address] [place] [address] PCP - General Family Medicine 10/15/15 08/02/24 Ny Hurtado NP [address] [facility] [address] [place] [address] PCP - General Family Medicine 08/03/24 Nolberto Thomas [address] [place] [address] Primary Staff Physician Cardiology 07/18/18 Flory Fan MD [address] [place] [address] Primary Staff Physician Cardiology 05/18/22 [place] [address] [place] [address] Metal Dresser Cardiology 05/24/24 [place] [address] [place] [address] Metal Dresser Cardiology 05/24/24 Jose Fontaine MD [address] [place], [place] [address] Surgeon Cardiac Surg 05/25/24 documented as of this encounter
--- OUTSIDE RECORDS SUMMARY | 2024-10-21 09:35 | XMS_ITS | Encounter Summary ---
Author Organization [facility] Address [facility] [place] [address] Care Team Providers Care Shredded Filler Cutter Operator Name Role Phone EveretteLambertoyesica Armstrong RETAIL WAREHOUSE SUPERVISOR Primary Care Provider Nolberto Thomas Unavailable [phone] Lo Flory Lovett MD Unavailable Justina Natarajan MD Unavailable [phone] Manny James MD Unavailable Jose Fontaine MD Unavailable [phone] Ny Hurtaod NP Primary Care Provider [phone] Source Comments In the event this information is protected by the Federal Confidentiality of Alcohol and Drug AbusePatient Records regulations: The Federal rules restrict any use of the information to criminally investigate or prosecute any alcohol or drug abuse patient.[facility] Encounter Details Date Type Department Care Team (Late st Contact Info) Description 07/12/2024 Patient Msg Cardiology [address] [place] [address] Esther Francis BEN Appt with Dr. Au Social History Tobacco Use Types Packs/Day Years [...] is lower risk 6 09/14/2022 Data from: https://www.neighborhoodatlas.medicine.[facility].edu/. Last address used for calculation [address] 09/14/2022 Education Answer Date Recorded What [...] 12/05/2024 2:20 PM EDT Office Visit Cardiology [address] [place] [address] [place] [address] [place], [place] [address] Return in about 4 months (around 11/16/2024). documented as of this encounter Goals Goal Patient Goal Type Associated Problems Recent Progress Patient-Stated? Author Blood Pressure < 130/80 Blood Pressure 118/60(2024 3:28 PM EDT) No Puja Batista documented as of this encounter Visit Diagnoses Not on filedocumented in this encounter Care Teams Shredded Filler Cutter Operator Relationship Specialty Start Date End Date Scarlett Gaviria, RETAIL WAREHOUSE SUPERVISOR [address] [place] [address] [place] [address] PCP - General Family Medicine 10/15/15 08/02/24 Ny Hurtado NP [address] [facility] [address] [place] [address] PCP - General Family Medicine 08/03/24 Nolberto Thomas [address] [address] Primary Staff Physician Cardiology 07/18/18 Flory Fan MD [address] [place] [address] Primary Staff Physician Cardiology 05/18/22 [place] [address] [place] [address] Contamination Consultant Cardiology 05/24/24 [place] [address] [place] [address] Contamination Consultant Cardiology 05/24/24 Jose Fontaine MD [address]00 [place] [address] Surgeon Cardiac Surg 05/25/24 documented as of this encounter
--- OUTSIDE RECORDS SUMMARY | 2024-10-21 09:35 | XMS_ITS | Encounter Summary ---
Author Organization [facility] Address [facility] [address] Care Team Providers Care Attache Name Role Phone EveretteLambertoyesica Armstrong CREAM BUYER Primary Care Provider Nolberto Thomas Unavailable [phone] Lo Flory Lovett MD Unavailable [phone] Justina Natarajan MD Unavailable [phone] Jamal Simon MD Unavailable [phone] Manny James MD Unavailable [phone] Jose Fontaine MD Unavailable [phone] Ny Hurtado NP Primary Care Provider Source Comments In the event this information is protected by the Federal Confidentiality of Alcohol and Drug AbusePatient Records regulations: The Federal rules restrict any use of the information to criminally investigate or prosecute any alcohol or drug abuse patient.[facility] Encounter Details Date Type Department Care Team (Late st Contact Info) Description 05/07/2024 Patient Msg Cardiology [address] [facility] [place] [address] [place] [address] [facility]. [place] [id number] Appointment Request Social History Tobacco Use Types Packs/Day Years [...] is lower risk 6 09/14/2022 Data from: https://www.neighborhoodatlas.medicine.[facility].edu/. Last address used for calculation [address] 09/14/2022 Education Answer Date Recorded What [...] 12/05/2024 2:20 PM EDT Office Visit Cardiology [address] [place] [address] [place] [address] [place] [address] Return in about 4 months (around 11/16/2024). documented as of this encounter Goals Goal Patient Goal Type Associated Problems Recent Progress Patient-Stated? Author Blood Pressure < 130/80 Blood Pressure 118/60(2024 3:28 PM EDT) No Puja Batista documented as of this encounter Visit Diagnoses Not on filedocumented in this encounter Care Teams Attache Relationship Specialty Start Date End Date Scarlett Gaviria CREAM BUYER [address] [place] [address] PCP - General Family Medicine 10/15/15 08/02/24 Ny Hurtado NP [address] [facility] [address] [place] [address] PCP - General Family Medicine 08/03/24 Nolberto Thomas [address] [place] [address] Primary Staff Physician Cardiology 07/18/18 Flory Fan MD 9500 [place], [place] [address] Primary Staff Physician Cardiology 05/18/22 [place] [address] [place] [address] Forensic Document Examiner Cardiology 05/24/24 Jamal Simon MD [address] [place], [place] [address] Surgeon Cardiac Surg 05/24/24 05/24/24 [place] [address] [place] [address] Forensic Document Examiner Cardiology 05/24/24 Jose Fontaine MD [address]00 [place] [address] Surgeon Cardiac Surg 05/25/24 documented as of this encounter
--- OUTSIDE RECORDS SUMMARY | 2024-10-21 09:35 | XMS_ITS | Encounter Summary ---
Author Organization [facility] Address [facility] [place] [address] Care Team Providers Care Liquid Floor And Wall Applier Name Role Phone Scarlett Gaviria CNP Primary Care Provider [phone] Nolberto Thomas Unavailable [phone] Lo Flory Lovett MD Unavailable [phone] Justina Natarajan MD Unavailable [phone] Manny James MD Unavailable Jose Fontaine MD Unavailable [phone] Ny Hurtado NP Primary Care Provider [phone] Source Comments In the event this information is protected by the Federal Confidentiality of Alcohol and Drug AbusePatient Records regulations: The Federal rules restrict any use of the information to criminally investigate or prosecute any alcohol or drug abuse patient.[facility] Encounter Details Date Type Department Care Team (Late st Contact Info) Description 07/02/2024 Patient Msg Ambulatory Surgery [address] [place] [address] Provider, Ccf Procedure arrival time and location Social History Tobacco Use Types Packs/Day Years [...] is lower risk 6 09/14/2022 Data from: https://www.neighborhoodatlas.medicine.[facility].edu/. Last address used for calculation [address] 09/14/2022 Education Answer Date Recorded What [...] 12/05/2024 2:20 PM EDT Office Visit Cardiology [address] [place] [address] [place] [address] [place] [address] Return in about 4 months (around 11/16/2024). documented as of this encounter Goals Goal Patient Goal Type Associated Problems Recent Progress Patient-Stated? Author Blood Pressure < 130/80 Blood Pressure 118/60(2024 3:28 PM EDT) No Puja Batista documented as of this encounter Visit Diagnoses Not on filedocumented in this encounter Care Teams Liquid Floor And Wall Applier Relationship Specialty Start Date End Date Scarlett Gaviria, CHA [address] [place] [address] [place] [address] PCP - General Family Medicine 10/15/15 08/02/24 Ny Hurtado NP [address] [facility] [address] [place] [address] PCP - General Family Medicine 08/03/24 Nolberto Thomas [address] [place] [address] Primary Staff Physician Cardiology 07/18/18 Flory Fan MD [address] [place] [address] Primary Staff Physician Cardiology 05/18/22 [place] [address] [place] [address] Preparation Supervisor Freezing Cardiology 05/24/24 [place] [address] [place] [address] Preparation Supervisor Freezing Cardiology 05/24/24 Jose Fontaine [facility] [address] [facility] [place], [place] [address] Surgeon Cardiac Surg 05/25/24 documented as of this encounter
--- OUTSIDE RECORDS SUMMARY | 2024-10-21 09:35 | XMS_ITS | Encounter Summary ---
Author Organization [facility] Address [address] [place] [address] Care Team Providers Care Chaperone Name Role Phone Everette Scarlett L POULTRY FARM SUPERVISOR Primary Care Provider Nolberto Thomas Unavailable [phone] Lo Flory Lovett MD Unavailable Justina Natarajan MD Unavailable [phone] Manny James MD Unavailable [phone] Jose Fontaine MD Unavailable [phone] Ny Hurtado NP Primary Care Provider [phone] Source Comments In the event this information is protected by the Federal Confidentiality of Alcohol and Drug AbusePatient Records regulations: The Federal rules restrict any use of the information to criminally investigate or prosecute any alcohol or drug abuse patient.[facility] Reason for Visit * Reason Comments Pt update Encounter Details Date Type Department Care Team (Late st Contact Info) Description 06/28/2024 Telephone Cardiology [address] [place] [address] Syl Mandujano MANAGER READING.POULTRY FARM SUPERVISOR [address] [place] [address] Pt update Social History Tobacco Use Types Packs/Day Years [...] is lower risk 6 09/14/2022 Data from: https://www.neighborhoodatlas.medicine.[facility].edu/. Last address used for calculation [address] 09/14/2022 Education Answer Date [...] Krissy Franco RN documented in this encounter Miscellaneous Notes * Telephone Encounter - Esther Francis RN - 06/29/2024 9:32 AM EST Spoke with patient, labs were drawn yesterday, no BMP result as of yet. Following with PCP on hypertension control. * Telephone Encounter - Mattie Pascual RN - 06/28/2024 3:04 PM EST Pt calling Last office visit with Syl on 05/11/24 Takes losartan (Cozaar) 50 mg daily - see encounter 06/05/24 Went to his pcp office for a visit/ out near [place] had two high blood pressures B/p was 150's/high 80's Was advised by pcp's MORGUE LIBRARIAN to increase his Losartan to 100 mg's Just wants to let cardiology office know and make sure it is ok He last filled his Losartan prescription on 06/10/24 Also states he was advised with taking sprironolactone and Losartan that it could affect potassium level Last two potassium levels in range and is going to get more lab work done today in [place] at a [facility] facility Pt can be reached at: [phone], ok to leave message documented in this encounter Plan of Treatment Upcoming Encounters Date Type Department Care Team (Late st Contact Info) Description 12/05/2024 2:20 PM EDT Office Visit Cardiology [address] [place] [address] [place] [address] [place] [address] Return in about 4 months (around 11/16/2024). documented as of this encounter Goals Goal Patient Goal Type Associated Problems Recent Progress Patient-Stated? Author Blood Pressure < 130/80 Blood Pressure 118/60(2024 3:28 PM EDT) No Puja Batista documented as of this encounter Visit Diagnoses Not on filedocumented in this encounter Care Teams Chaperone Relationship Specialty Start Date End Date Scarlett Gaviria CNP [address] [place] [address] PCP - General Family Medicine 10/15/15 08/02/24 Ny Hurtado NP [address] [facility] [address] [place] [address] PCP - General Family Medicine 08/03/24 Nolberto Thomas [address] [place] [address] Primary Staff Physician Cardiology 07/18/18 Flory Fan MD [address] [place] [address] Primary Staff Physician Cardiology 05/18/22 [place] [address] [place] [address] Rn Acute Cardiology 05/24/24 [place] [address] [place] [address] Rn Acute Cardiology 05/24/24 Jose Fontaine MD [address] [facility] [place] [address] Surgeon Cardiac Surg 05/25/24 documented as of this encounter
--- OUTSIDE RECORDS SUMMARY | 2024-10-21 09:35 | XMS_ITS | Encounter Summary ---
Author Organization [facility] Address [facility] [place] [address] Care Team Providers Care Campus Wellness Coordinator Name Role Phone EveretteLambertoyesica Armstrong PROFILER Primary Care Provider Nolberto Thomas Unavailable [phone] Lo Flory Lovett MD Unavailable Justina Natarajan MD Unavailable [phone] Jamal Simon MD Unavailable [phone] Manny James MD Unavailable Jose Fontaine MD Unavailable [phone] Ny Hurtado NP Primary Care Provider Source Comments In the event this information is protected by the Federal Confidentiality of Alcohol and Drug AbusePatient Records regulations: The Federal rules restrict any use of the information to criminally investigate or prosecute any alcohol or drug abuse patient.[facility] Encounter Details Date Type Department Care Team (Late st Contact Info) Description 04/23/2024 Patient Msg Cardiology [address] [facility] [place] [address] Provider, Ccf Cardiology call Social History Tobacco Use Types Packs/Day Years [...] risk 6 09/14/2022 Data from: https://www.neighborhoodatlas.medicine.[facility].edu/. Last address used for calculation [address] 09/14/2022 Education Answer Date Recorded What [...] 12/05/2024 2:20 PM EDT Office Visit Cardiology [address] [place] [address] [place] [address] [place], [place] [address] Return in about 4 months (around 11/16/2024). documented as of this encounter Goals Goal Patient Goal Type Associated Problems Recent Progress Patient-Stated? Author Blood Pressure < 130/80 Blood Pressure 118/60(2024 3:28 PM EDT) No Puja Batista documented as of this encounter Visit Diagnoses Not on filedocumented in this encounter Care Teams Campus Wellness Coordinator Relationship Specialty Start Date End Date Scarlett Gaviria, PROFILER [facility] [place] [address] PCP - General Family Medicine 10/15/15 08/02/24 Ny Hurtado NP [address] [facility] [address] [place] [address] PCP - General Family Medicine 08/03/24 Nolberto Thomas [address] [place] [address] Primary Staff Physician Cardiology 07/18/18 Flory Fan MD [address] [place] [address] Primary Staff Physician Cardiology 05/18/22 [place] [address] [place] [address] Acute Care Occupational Therapist Cardiology 05/24/24 Jamal Simon MD [address] [place] [address] Surgeon Cardiac Surg 05/24/24 05/24/24 [place] [address] [place] [address] Acute Care Occupational Therapist Cardiology 05/24/24 Jose Fontaine MD 9500 [place] [address] Surgeon Cardiac Surg 05/25/24 documented as of this encounter
--- OUTSIDE RECORDS SUMMARY | 2024-10-21 09:35 | XMS_ITS | Encounter Summary ---
Author Organization [facility] Address [facility] [place] [address] Care Team Providers Care Video Game Script Writer Name Role Phone Scarlett Gaviria CNP Primary Care Provider Nolberto Thomas Unavailable [phone] Lo Flory Lovett MD Unavailable Justina Natarajan MD Unavailable [phone] Manny James MD Unavailable Jose Fontaine MD Unavailable [phone] Ny Hurtado NP Primary Care Provider [phone] Source Comments In the event this information is protected by the Federal Confidentiality of Alcohol and Drug AbusePatient Records regulations: The Federal rules restrict any use of the information to criminally investigate or prosecute any alcohol or drug abuse patient.[facility] Reason for Visit * Reason Onset Date Comments Refill Request 07/31/2024 Encounter Details Date Type Department Care Team (Late st Contact Info) Description 07/31/2024 Refill Cardiology [address] [place] [address] [place] [address] [place], [place] [id number] Refill Request Social History Tobacco Use Types Packs/Day [...] risk 6 09/14/2022 Data from: https://www.neighborhoodatlas.medicine.[facility].edu/. Last address used for calculation [address] 09/14/2022 Education Answer Date [...] encounter Miscellaneous Notes * Telephone Encounter - Geetha Velez - 07/31/2024 4:12 PM EDT Prescription Refill Information The patient has been identified by name and date of : Yes Caregiver verified no other encounters exist for this prescription request: Yes Caregiver confirmed with patient/requestor that no other refills are due, in the near future, with this provider at this time: Yes The last office visit in the department: 05/11/24 Does the patient have a future office visit with this provider/department: Yes Requested Prescriptions Pending Prescriptions Disp Refills atorvastatin (LIPITOR) 40 mg tablet 90 tablet 0 Sig: Take 1 tablet by mouth once daily. Need appointment for future refills Geetha Velez July 31, 2024 4:12 PM documented in this encounter Plan of Treatment Upcoming Encounters Date Type Department Care Team (Late st Contact Info) Description 12/05/2024 2:20 PM EDT Office Visit Cardiology [address] [place] [address] [place] [address] [place] [address] Return in about 4 months (around 11/16/2024). documented as of this encounter Goals Goal Patient Goal Type Associated Problems Recent Progress Patient-Stated? Author Blood Pressure < 130/80 Blood Pressure 118/60(2024 3:28 PM EDT) Puja Lakhani documented as of this encounter Visit Diagnoses Diagnosis Pain of both shoulder joints Rotator cuff tear arthropathy of both shoulders Traumatic arthropathy, shoulder region documented in this encounter Care Teams Video Game Script Writer Relationship Specialty Start Date End Date Scarlett Gaviria EMERGENCY RESPONSE COORDINATOR [address] [place] [address] PCP - General Family Medicine 10/15/15 08/02/24 Ny Hurtado NP [address] [facility] [address] [place] [address] PCP - General Family Medicine 08/03/24 Nolberto Thomas [address] [place] [address] Primary Staff Physician Cardiology 07/18/18 Flory Fan MD [address] [place] [address] Primary Staff Physician Cardiology 05/18/22 [place] [address] [place] [address] Spinner Fixer Cardiology 05/24/24 [place] [address] [place] [address] Spinner Fixer Cardiology 05/24/24 Jose Fontaine MD [address] [place] [address] Surgeon Cardiac Surg 05/25/24 documented as of this encounter
--- OUTSIDE RECORDS SUMMARY | 2024-10-21 09:35 | XMS_ITS | Encounter Summary ---
Author Organization [facility] Address [facility] [place] [address] Care Team Providers Care Transactional Attorney Name Role Phone EveretteLambertoyesica Armstrong MOBILE SALES TECHNICIAN Primary Care Provider Nolberto Thomas Unavailable [phone] Lo Flory Lovett MD Unavailable [phone] Justina Natarajan MD Unavailable [phone] Manny James MD Unavailable Jose Fontaine MD Unavailable [phone] Ny Hurtado NP Primary Care Provider [phone] Source Comments In the event this information is protected by the Federal Confidentiality of Alcohol and Drug AbusePatient Records regulations: The Federal rules restrict any use of the information to criminally investigate or prosecute any alcohol or drug abuse patient.[facility] Encounter Details Date Type Department Care Team (Late st Contact Info) Description 07/12/2024 Patient Msg Cardiology [address] [place] [address] Esther Francis BEN Social History Tobacco Use Types Packs/Day Years [...] is lower risk 6 09/14/2022 Data from: https://www.neighborhoodatlas.medicine.[facility].edu/. Last address used for calculation [address] 09/14/2022 Education Answer Date Recorded What [...] 12/05/2024 2:20 PM EDT Office Visit Cardiology [address] [place] [address] [place] [address] [place] [address] Return in about 4 months (around 11/16/2024). documented as of this encounter Goals Goal Patient Goal Type Associated Problems Recent Progress Patient-Stated? Author Blood Pressure < 130/80 Blood Pressure 118/60(2024 3:28 PM EDT) No Puja Batista documented as of this encounter Visit Diagnoses Not on filedocumented in this encounter Care Teams Transactional Attorney Relationship Specialty Start Date End Date Scarlett Gaviria, CHA [address] [place], [place] [address]selene [facility] [place] [address] PCP - General Family Medicine 10/15/15 08/02/24 Ny Hurtado NP [address] [facility] [address] [place], [place] [address] PCP - General Family Medicine 08/03/24 Nolberto Thomas [address] [place] [address] Primary Staff Physician Cardiology 07/18/18 Flory Fan MD [address] [place] [address] Primary Staff Physician Cardiology 05/18/22 [place] [address] [place] [address] Financial Management Consultant Cardiology 05/24/24 [place] [address] [place] [address] Financial Management Consultant Cardiology 05/24/24 Jose Fontaine MD [address] [place], [place] [address] Surgeon Cardiac Surg 05/25/24 documented as of this encounter
--- NOTE | 2024-10-21 09:36 | ECG_ITS ---
[facility] Test Date: 2024-10-21 Pat Name: IRENA BUSCH Department: Room: - Gender: Male Surgical Appliances Salesperson: : [id number] Requested By: [id number] Order Number: [id number] Reading MD: BRYSON BRYSON M.D. Measurements Intervals [place] Rate: 76 P: -15898 VT: -97353 QRS: 3 QRSD: 86 T: 31 QT: 406 QTc: 437 Interpretive Statements 1210 Atrial fibrillation 9140 abnormal rhythm ECG Compared to ECG 05/03/2024 15:14:27 Left bundle-branch block no longer present Right-axis deviation no longer present Electronically Signed On 10-21-2024 22:07:01 EDT by BRYSON BRYSON M.D.
--- OUTSIDE RECORDS SUMMARY | 2024-10-21 09:36 | XMS_ITS | Encounter Summary ---
Author Organization [facility] Address [facility] [place] [address] Care Team Providers Care District Fire Chief Name Role Phone EveretteLambertoyesica Armstrong SOIL SAMPLER Primary Care Provider Nolberto Thomas Unavailable [phone] Lo Flory Lovett MD Unavailable Justina Natarajan MD Unavailable [phone] Jamal Simon MD Unavailable [phone] Manny James MD Unavailable Jose Fontaine MD Unavailable [phone] Ny Hurtado NP Primary Care Provider Source Comments In the event this information is protected by the Federal Confidentiality of Alcohol and Drug AbusePatient Records regulations: The Federal rules restrict any use of the information to criminally investigate or prosecute any alcohol or drug abuse patient.[facility] Encounter Details Date Type Department Care Team (Late st Contact Info) Description 01/31/2024 Patient Msg Ambulatory Surgery [address] [place] [address] Mao De La Rosa, DO [address] [place] [address] Social History Tobacco Use Types Packs/Day Years [...] is lower risk 6 09/14/2022 Data from: https://www.neighborhoodatlas.medicine.[facility].edu/. Last address used for calculation [address] 09/14/2022 Education Answer Date Recorded What [...] 12/05/2024 2:20 PM EDT Office Visit Cardiology [address] [place] [address] [place] [address] [place] [address] Return in about 4 months (around 11/16/2024). documented as of this encounter Goals Goal Patient Goal Type Associated Problems Recent Progress Patient-Stated? Author Blood Pressure < 130/80 Blood Pressure 118/60(2024 3:28 PM EDT) No Puja Batista documented as of this encounter Visit Diagnoses Not on filedocumented in this encounter Care Teams District Fire Chief Relationship Specialty Start Date End Date Scarlett Gaviria CNP [address] [place] [address] PCP - General Family Medicine 10/15/15 08/02/24 Ny Hurtado NP [address] [facility] [address] [place] [address] PCP - General Family Medicine 08/03/24 Nolberto Thomas [address] [place] [address] Primary Staff Physician Cardiology 07/18/18 Flory Fan MD [address] [place], [place] [address] Primary Staff Physician Cardiology 05/18/22 [place] [address] [place] [address] Awning Hanger Helper Cardiology 05/24/24 Jamal Simon MD [address] [place], [place] [address] Surgeon Cardiac Surg 05/24/24 05/24/24 [place] [address] [place] [address] Awning Hanger Helper Cardiology 05/24/24 Jose Fontaine MD [address] [place] [address] Surgeon Cardiac Surg 05/25/24 documented as of this encounter
--- OUTSIDE RECORDS SUMMARY | 2024-10-21 09:37 | XMS_ITS | Encounter Summary ---
Author Organization [facility] Address [address] [place] [address] Care Team Providers Care Truck Packer Name Role Phone Unallocated, Noms Provider Primary Care Provi shaji Ny Hurtado APRN-CRM TECHNICAL LEAD Unavailable [phone] Adilene Lozano Unavailable Encounter Details Date Type Department Care Team (Late st Contact Info) Description 08/27/2024 Results Follow-Up [facility] [address] [facility] [address] [place] [address] Rossy Agustin MD [address] [facility] [address] [place] [address] Social History Tobacco Use Types Packs/Day Years Used Date Smoking Tobacco: Former Cigarettes 1 22 0 [birth year]/15/1964 - 1986 Passive Smoke Exposure: Never Alcohol Use Standard Drinks/Week Comments Yes 19 (1 standard drink = 0.6 oz pu re alcohol) AUDIT-C Answer Date Recorded Q1: How often do you have a drink containing alc ohol? Monthly or less 01/26/2024 Q2: How many drinks containi ng alcohol do you have on a typical day when you are drinking? 1 or 2 01/26/2024 Q3: How often do you have si x or more drinks on one occasion? Never 01/26/2024 Sex and Gender Information Value Date Recorded Sex Assigned at Male 11/14/2022 3:05 PM EDT Legal Sex Male 7:21 PM EDT Gender Identity Male 11/14/2022 3:05 PM EDT Sexual Orientation Choose not to disclose 2022 3:05 PM EDT documented as of this encounter Plan of Treatment Upcoming Encounters Date Type Department Care Team (Late st Contact Info) Description 11/07/2024 11:00 AM EDT Procedure Visit [facility] [address] [facility] [facility] [place] [address] Haris Molina, DPM FACFAS [address] [facility] [place] [address] 02/14/2025 1:00 PM EDT Office Visit [facility] [address] [place] [address] Rossy Agustin MD [address] [place] [address] documented as of this encounter Visit Diagnoses Not on filedocumented in this encounter Care Teams Truck Packer Relationship Specialty Start Date End Date Unallocated, Noms MD Osmar [address] [place] [address] PCP - General 11/15/22 Ny Hurtado APRN-CHA [address] [place] [address] Referring Physician Family Medicine 08/15/24 Adilene Lozano PA [address] [place] [address] Physician Pcu Rn Neurology 08/15/24 documented as of this encounter
--- OUTSIDE RECORDS SUMMARY | 2024-10-21 09:37 | XMS_ITS | Encounter Summary ---
Author Organization [facility] Address [address] [place] [address] Care Team Providers Care Glazier Artist Name Role Phone Nolberto Thomas Unavailable Lo Flory Lovett MD Unavailable [phone] Justina Natarajan MD Unavailable [phone] Manny James MD Unavailable Jose Fontaine MD Unavailable [phone] Ny Hurtado NP Primary Care Provider [phone] Source Comments In the event this information is protected by the Federal Confidentiality of Alcohol and Drug AbusePatient Records regulations: The Federal rules restrict any use of the information to criminally investigate or prosecute any alcohol or drug abuse patient.[facility] Encounter Details Date Type Department Care Team (Late st Contact Info) Description 10/11/2024 Patient [facility] [address] [place] [address] yRanne Angulo RPh A Smarter Way to Manage Your Heart Failure Medications Social History Tobacco Use Types Packs/Day Years [...] medical [email or web address]/. Last address used for calculation [address] 09/14/2022 Education Answer Date Recorded What [...] 12/05/2024 2:20 PM EDT Office Visit Cardiology [address] [place] [address] [place] [address] [place] [address] Return in about 4 months (around 11/16/2024). documented as of this encounter Goals Goal Patient Goal Type Associated Problems Recent Progress Patient-Stated? Author Blood Pressure < 130/80 Blood Pressure 118/60(2024 3:28 PM EDT) No Puja Batista documented as of this encounter Visit Diagnoses Not on filedocumented in this encounter Care Teams Glazier Artist Relationship Specialty Start Date End Date Ny Hurtado NP [address] [place] [address] [address] [place] [address] PCP - General Family Medicine 08/03/24 Nolberto Thomas [address] [place] [address] Primary Staff Physician Cardiology 07/18/18 Flory Fan MD [address] [place] [address] Primary Staff Physician Cardiology 05/18/22 [place] [address] [place] [address] Cartographic Drafter Cardiology 05/24/24 [place] [address] [place] [address] Cartographic Drafter Cardiology 05/24/24 Jose Fontaine MD [address] [place] [address] Surgeon Cardiac Surg 05/25/24 documented as of this encounter
--- OUTSIDE RECORDS SUMMARY | 2024-10-21 09:37 | XMS_ITS | Encounter Summary ---
Author Organization [facility] Address [address] [place] [address] Care Team Providers Care Director Of Health Education Name Role Phone Scarlett Gaviria NP Unavailable Unallocated, Noms Provider Primary Care Provi shaji Ny Hurtado APRN-RESIDENTIAL SOLAR SALES CONSULTANT Unavailable [phone] Adilene Lozano Unavailable Encounter Details Date Type Department Care Team (Late st Contact Info) Description 06/07/2024 Abstract [facility] [address] [place] [address] Haris Molina, DPM FACFAS [address] [place] [address] Social History Tobacco Use Types Packs/Day Years [...] EDT Procedure Visit [facility] [address] [facility] [address] Haris Molina, DPM FACFAS [address] [facility] [place] [address] 02/14/2025 1:00 PM EDT Office Visit [facility] [address] [place] [address] Rossy Agustin MD [address] [place] [address] documented as of this encounter Visit Diagnoses Not on filedocumented in this encounter Care Teams Director Of Health Education Relationship Specialty Start Date End Date Unallocated, Noms MD Osmar [address] [place] [address] PCP - General 11/15/22 Scarlett Gaviria NP [address] [place] [address] Referring Physician Family Medicine 11/15/22 08/14/24 Ny Hurtado APRN-RESIDENTIAL SOLAR SALES CONSULTANT [address] [facility] [place] [address] Referring Physician Family Medicine 08/15/24 Adilene Lozano PA [address] [place] [address] Physician Cognos Administrator Neurology 08/15/24 documented as of this encounter
--- OUTSIDE RECORDS SUMMARY | 2024-10-21 09:37 | XMS_ITS | Patient Health Record ---
Author Organization [facility] es Address [address] [place] [address] Care Team Providers Care [employer] Professor Name Role Phone Janis Brown Primary Care Provider Allergies No Known Allergies Reason For Referral Reason 03/12 attempted to r each pt. lvmsg requetsing return call. Pt. has [employer] referral from Scarlett Gaviria CNP for major depressive disorder 03/13 Spoke with pt. in May. he will be getting different insurance than [employer]. Diagnosis 1 Encounter for screen ing examination for mental health and behavioral disorders (Z13.30) Referral Organization Referrals Referred Organization [facility] Referred Address [address] [place] [place], [place],[address], Referred Provider Specialty Medicatio ns Referral Priority Routine Medications Medication SIG (Take, Route, Frequency, Duration) Notes Start Date End Date Status Escitalopram Oxalate 10 MG 1 tablet Orally Once a day for 30 days 05/23/2024 Active Amiodarone HCl 200 MG 1 tablet Orally Once a day Active Lasix 40 MG 1 tablet Orally Once a day Active Bisoprolol Fumarate 5 MG 1 tablet Orally Once a day Active Aspirin 81 81 MG 1 tablet Orally Once a day Active Magnesium Oxide 400 MG 1 tablet as neede d Orally Once a day Active DULoxetine HCl 30 MG 1 capsule Orally Once a day for 7 days weaning off Not-Taking Tolterodine Tartrate 2 MG 1 tablet Orally Twice a day Active Salmeterol Xinafoate 50 MCG/ACT 1 puff Inhalation Twice a day Active Atenolol 50 MG 1 tablet Orally Once a day Not-Taking Flonase Allergy Relief 50 MCG/ACT 1 spray in each nostril Nasally Twice a day Active DULoxetine HCl 20 MG 1 capsule Orally Once a day for 7 days weaning off 05/23/2024 Not-Taking Lipitor 40 MG 1 tablet Orally Once a day Active Spironolactone 25 MG 1 tablet Orally Active Fenofibrate 120 MG 1 tablet with food Orally Once a day Active Fenofibrate 40 MG 1 tablet with food Orally Once a day Active Losartan Potassium 50 MG 1 tablet Orally Once a day Active Omeprazole 20 MG 1 capsule 1/2 to 1 hour before morning meal Orally Once a day Active amLODIPine Besylate 5 MG 1 tablet Orally Once a day Active Allopurinol 100 MG 1 tablet Orally Once a day Active Social History Tobacco Use: Social History Observation Description Date Details (start date - stop date) Former Smoker NA - NA Depression Screening (PHQ-9): Question Answer Notes Little interest or pleasure in doing things More than half the days Feeling down, depressed, or hopeless More than h halfway the days Trouble falling or staying asleep, or sleeping t oo much More than half the days Feeling tired or having little energy More than half the days Poor appetite or overeating More than half the d ays Feeling bad about yourself-o r that you are a failure or have let yourself or your family down Several days Trouble concentrating on thi ngs, such as reading the newspaper or watching television More than half the days Moving or speaking so slowly that other people could have noticed. Or the opposite being so fidgety or restless that you have been moving around a lot more than usual Not at all Thoughts that you would be b yesi off , or of hurting yourself in some way Not at all Total Score 13 Intepretation Moderate Depression AUDIT-C (Standard) Question Answer Notes Did you have a drink contain ing alcohol in the past year? Yes How often did you have six o r more drinks on one occasion in the past year? 2 to 3 times per week (3 points) How many drinks did you have on a typical day when you were drinking in the past year? 3 or 4 drinks (1 point) How often did you have a dri nk containing alcohol in the past year? 2 to 3 times a week (3 points) Points 7 Interpretation Positive Tobacco Control (Standard) Question Answer Notes Tobacco use: Former smoker How long has it been since you last smoked? Grea ter than 10 years Problems Problem Type SNOMED Code ICD Code Onset Dates Problem Status W/U Status Risk Notes Problem [id number] Moderate episode of recurrent major depressive disorder (F33.1) Active confirmed Vital Signs Heart Rate 83 /min 08/30/2024 Temperature 97.7 degrees Fahrenheit 08/30/2024 Oximetry 98 % 08/30/2024 Blood pressure diastolic 73 mm Hg 08/30/2024 Height 70 in 08/30/2024 Blood pressure systolic 118 mm Hg 08/30/2024 Weight 218.0 lbs 08/30/2024 BMI 31.28 kg/m2 08/30/2024 Encounters Encounter Location Date Provider Diagnosis [facility] [address] [place] [address] 05/08/2024 Janis Brown Moderate episode of recurrent major depressive disorder F33.1 [address] [place] [address] 05/23/2024 Janissamson Brown Moderate episode of recurrent major depressive disorder F33.1 [address] [place] [address] 06/06/2024 Janissamson Brown Moderate episode of recurrent major depressive disorder F33.1 [address] [place] [address] 07/02/2024 Janissamson Damicoberger Moderate episode of recurrent major depressive disorder F33.1 [address] [place] [address] 07/30/2024 Janissamson Damicoberger Moderate episode of recurrent major depressive disorder F33.1 [place] [address] [place] [address] 08/30/2024 Janis Brown Moderate episode of recurrent major depressive disorder F33.1 [facility] [address] [place] [address] 05/28/2024 Janis Brown Moderate episode of recurrent major depressive disorder F33.1 [facility] [address] [place] [address] 05/28/2024 Janis Brown [facility] [address] [place] [address] 05/29/2024 Janis Brown [facility] [address] [place] [address] 05/29/[address] [facility] [address] [place] [address] 07/09/2024 Janis Brown Moderate episode of recurrent major depressive disorder F33.1 [facility] [address] [place] [address] 07/24/2024 Janis Brown [address] [place] [address] 10/01/2024 Janis Brown Moderate episode of recurrent major depressive disorder F33.1 Assessments Encounter Date Diagnosis (ICD Code) Assessment Notes Treatment Notes Treatment Clinical Notes Section Notes 05/23/2024 Moderate episode of recurrent major depressive disorder (ICD-10 - F33.1) . Informed consent obtained: YES, we discussed the diagnosis/diagnoses , the treatment options, treatment(s) recommended vs. no treatment. We discussed risks and benefits of treatment options, treatment recommendations vs. no treatment. . .Based on DSM V, this patient meets the criteria for the diagnosis of: _ .major depressive disorder Recommended treatment is: _ SSRI or SNRI . The patient verbalizes understanding with all questions answered thoroughly and is in agreement with treatment plan. . . Pharmacological management: . Alternative medication plans were discussed with the patient/guardian. All relevant side effects and potential adverse effects were discussed with the patient/guardian. Standard cautions and potential benefits were discussed. Patient/Guardian consented to the start/continuation of the treatment. .. Currently at low risk for self harm. Denies ongoing feelings of hopelessness. Denies ongoing suicidal ideation, intent or plan in session. . . Selective serotonin reuptake inhibitors? can cause nausea, headache, upset stomach, diarrhea, constipation, anxiety, irritability, and sexual dysfunction. Please monitor for worsening of symptoms, especially suicidal ideations or morbid thoughts, and call office and or go to the emergency department immediately . Wean off Cymbalta and start Lexapro 05/28/2024 Moderate episode of recurrent major depressive disorder (ICD-10 - F33.1) 07/02/2024 Moderate episode of recurrent major depressive disorder (ICD-10 - F33.1) Informed consent obtained: YES, we discussed the diagnosis/diagnoses , the treatment options, treatment(s) recommended vs. no treatment. We discussed risks and benefits of treatment options, treatment recommendations vs. no treatment. . Based on DSM V, this patient meets the criteria for the diagnosis of: _ .major depressive disorder Recommended treatment is: _ SSRI or SNRI . The patient verbalizes understanding with all questions answered thoroughly and is in agreement with treatment plan. . . Pharmacological management: . Alternative medication plans were discussed with the patient/guardian. All relevant side effects and potential adverse effects were discussed with the patient/guardian. Standard cautions and potential benefits were discussed. Patient/Guardian consented to the start/continuation of the treatment. .. Currently at low risk for self harm. Denies ongoing feelings of hopelessness. Denies ongoing suicidal ideation, intent or plan in session. . . FDA approved medication for this age group include Selective Serotonin Reuptake Inhibitors (SSRI) and Selective Norepinephrine Reuptake Inhibitors (SNRI). Selective serotonin reuptake inhibitors? can cause nausea, headache, upset stomach, diarrhea, constipation, anxiety, irritability, and sexual dysfunction. Please monitor for worsening of symptoms, especially suicidal ideations or morbid thoughts, and call office and or go to the emergency department immediately . 07/09/2024 Moderate episode of recurrent major depressive disorder (ICD-10 - F33.1) 07/30/2024 Moderate episode of recurrent major depressive disorder (ICD-10 - F33.1) Informed consent obtained: YES, we discussed the diagnosis/diagnoses , the treatment options, treatment(s) recommendations vs. no treatment. We discussed risks and benefits of treatment options, treatment recommendations vs. no treatment. Denies suicidal or homicidal ideation or plan. No morbid thoughts. Interpersonal issues discussed. Support provided Insight oriented/ Behavior modifying/ Supportive therapy . Currently at low risk for self harm. Denies ongoing feelings of hopelessness. Denies ongoing suicidal ideation, intent or plan in session. Pharmacological management: Alternative medication plans were discussed with the patient and or guardian. All relevant and serious adverse effects were discussed. Standard precautions and potential benefits were discussed. Patient/Guardian consented to begin medication/ continue treatment plan. questions answered satisfactorily, agreeable to treatment plan Cont current treatment Tolerating meds well, compliant Call for problems Follow up 1 month Patient/Guardian will call sooner if symptoms worsen. Patient understands to go to the ER if needed if symptoms become severe. Crisis intervention plan was discussed and agreed upon. Patient/Guardian will call 911 in case of emergency. Emergency contact information was provided to the patient/guardian. 08/30/2024 Moderate episode of recurrent major depressive disorder (ICD-10 - F33.1) Informed consent obtained: YES, we discussed the diagnosis/diagnoses , the treatment options, treatment(s) recommendations vs. no treatment. We discussed risks and benefits of treatment options, treatment recommendations vs. no treatment. Currently at low risk for self harm. Denies ongoing feelings of hopelessness. Denies ongoing suicidal ideation, intent or plan in session. Pharmacological management: Alternative medication plans were discussed with the patient and or guardian. All relevant and serious adverse effects were discussed. Standard precautions and potential benefits were discussed. Patient/Guardian consented to begin medication/ continue treatment plan. questions answered satisfactorily, agreeable to treatment plan Cont current treatment Tolerating meds well, compliant Call for problems Follow up 2 months Patient/Guardian will call sooner if symptoms worsen. Patient understands to go to the ER if needed if symptoms become severe. Crisis intervention plan was discussed and agreed upon. Patient/Guardian will call 911 in case of emergency. Emergency contact information was provided to the patient/guardian. 10/01/2024 Moderate episode of recurrent major depressive disorder (ICD-10 - F33.1) 06/06/2024 Moderate episode of recurrent major depressive disorder (ICD-10 - F33.1) . Informed consent obtained: YES, we discussed the diagnosis/diagnoses , the treatment options, treatment(s) recommended vs. no treatment. We discussed risks and benefits of treatment options, treatment recommendations vs. no treatment. . .Based on DSM V, this patient meets the criteria for the diagnosis of: _ .major depressive disorder . The patient verbalizes understanding with all questions answered thoroughly and is in agreement with treatment plan. . . Pharmacological management: . Alternative medication plans were discussed with the patient/guardian. All relevant side effects and potential adverse effects were discussed with the patient/guardian. Standard cautions and potential benefits were discussed. Patient/Guardian consented to the start/continuation of the treatment. .. Currently at low risk for self harm. Denies ongoing feelings of hopelessness. Denies ongoing suicidal ideation, intent or plan in session. . . FDA approved medication for this age group include Selective Serotonin Reuptake Inhibitors (SSRI) and Selective Norepinephrine Reuptake Inhibitors (SNRI). Selective serotonin reuptake inhibitors? can cause nausea, headache, upset stomach, diarrhea, constipation, anxiety, irritability, and sexual dysfunction. Please monitor for worsening of symptoms, especially suicidal ideations or morbid thoughts, and call office and or go to the emergency department immediately . 05/08/2024 Moderate episode of recurrent major depressive disorder (ICD-10 - F33.1) Informed consent obtained: YES, we discussed the diagnosis/diagnoses , the treatment options, treatment(s) recommended vs. no treatment. We discussed risks and benefits of treatment options, treatment recommendations vs. no treatment. . .Based on DSM V, this patient meets the criteria for the diagnosis of: _ .major depressive disorder Recommended treatment is: _ SSRI or SNRI . The patient verbalizes understanding with all questions answered thoroughly and is in agreement with treatment plan. . . Pharmacological management: Pt is to see his knife setter assembler Greg May 11. He will discuss his options of continuing Cymbalta and increasing dosage or possibly changing to an SSRI Lexapro. due to clients cardiac hx, will need to work closely with his knife setter assembler and advised pt to send previous medical information; EKG and labs. . Alternative medication plans were discussed with the patient/guardian. All relevant side effects and potential adverse effects were discussed with the patient/guardian. Standard cautions and potential benefits were discussed. Patient/Guardian consented to the start/continuation of the treatment. . Currently at low risk for self harm. Denies ongoing feelings of hopelessness. Denies ongoing suicidal ideation, intent or plan in session. . . Please monitor for worsening of symptoms, especially suicidal ideations or morbid thoughts, and call office and or go to the emergency department immediately NO changes in current medications: pt is to continue with Cymbalta 60mg Qday . Plan Of Treatment Next Appt Details Provider Name:Janisselene estrada, 10/22/2024 01:15:00 PM, [address] [place], [address], Insurance Providers Payer Name Payer Address Payer Phone Subscriber Number Group Number Insured Name Patient Relationship to Insured Coverage Start Date Coverage End Date [employer] [address] [place] [phone] [id number] IRENA BUSCH Self - patient is the insured [facility] Non-Par [address] [place]ISS [phone] [id number] IRENA BUSCH Self - patient is the insured 4 4 Medical (General) History Medical History History ICD Code COPD AFIB [facility] Surgical History Surgery Date(Month/Year) Appendectomy 4 rotator cuff Hospitalization History Reason Date(Month/Year) [facility] 05/2024
--- OUTSIDE RECORDS SUMMARY | 2024-10-21 09:37 | XMS_ITS | Clinical Summary ---
Author Organization [facility] Address [facility] [place] [address] Care Team Providers Care Porter Marina Name Role Phone Nolberto Thomas Unavailable Lo Flory Lovett MD Unavailable Justina Natarajan MD Unavailable [phone] Manny James MD Unavailable Jose Fontaine MD Unavailable [phone] Ny Hurtado NP Primary Care Provider [phone] Allergies No known active allergies Medications Glucosamine-Cho ndroit-Vit C-Mn 500-400 mg cap Take 1 capsule by mouth twice daily. 0 09/01/19 12 Active albuterol HFA (PROAIR HFA) 90 mcg/actuation inhaler Inhale 2 Puffs as instructed every 6 hours as needed. 1 Inhaler 0 03/14/20 12 Active coenzyme Q10 100 mg cap Take 100 mg by mouth once daily. Active fluticasone (FLONASE) 50 mcg/actuation nasal spray Use 1 [place] in each nostril once daily. 0 09/02/19 17 Active allopurinol (ZYLOPRIM) 100 mg tablet Take 100 mg by mouth once daily. 5 05/17/19 19 Active PROCTOZONE-HC 2.5 % rectal cream APPLY TO THE AFFECTED AREA(S) 2-4 times daily 5 05/17/19 19 Active montelukast (SINGULAIR) 10 mg tablet montelukast 10 mg tablet Active rOPINIRole (REQUIP) 1 mg tablet Take 1 tablet by mouth daily at bedtime. 08/09/19 19 Active omeprazole (PRILOSEC) 40 mg capsule Take 40 mg by mouth once daily. Active magnesium oxide (MAG-OX) 400 mg (241.3 mg magnesium) tabletIndicatio ns:PAF (paroxysmal atrial fibrillation) (HCC) Take 1 tablet by mouth once daily. 30 tablet 5 03/09/20 21 Active cholecalciferol , vitamin D3, (VITAMIN D3 ORAL) Take by mouth. Activ e Fenofibrate (LOFIBRA) 160 mg tablet TAKE 1 TABLET ONCE DAILY 90 tablet 3 09/08/19 22 Active ADVAIR DISKUS 100-50 mcg/dose inhaler Inhale as instructed two times a day. 04/24/20 23 Active tolterodine ER (DETROL LA) 4 mg 24 hr capsule Take 4 mg by mouth once daily. 05/27/19 23 Active acetaminophen 650 mg CR tablet Every 12 hours 06/20/19 24 Active amoxicillin (AMOXIL) 500 mg capsule TAKE 2 CAPSULES BY MOUTH now then TAKE 1 CAPSULE BY MOUTH EVERY 6 HOURS UNTIL GONE Active ketoconazole (NIZORAL) 2 % cream 08/10/19 23 Active fluticasone-chance anterol (BREO ELLIPTA) 100-25 mcg/dose inhaler INHALE 1 PUFF BY MOUTH DAILY Active omega-3 acid ethyl esters (LOVAZA) 1 gram capsule Take 1,000 mg by mouth. 11/22/19 19 Active omega-3/dha/epa /fish oil (OMEGA-3 ORAL) Take by mouth once daily. Active bisoprolol (ZEBETA) 5 mg tablet Take 1 tablet by mouth two times a day. 180 tablet 3 05/18/19 25 Active escitalopram oxalate (LEXAPRO) 5 mg tablet Take 5 mg by mouth once daily. 05/23/19 25 Active spironolactone (ALDACTONE) 25 mg tablet Take 1 tablet by mouth once daily. 180 tablet 1 06/29/19 25 Active atorvastatin (LIPITOR) 40 mg tabletIndicatio ns:Pain of both shoulder joints,Rotator cuff tear arthropathy of both shoulders Take 1 tablet by mouth once daily. Need appointment for future refills 90 tablet 3 08/01/19 25 Active apixaban (ELIQUIS) 5 mg tab(s) Take 1 tablet by mouth two times a day. 180 tablet 1 08/23/19 25 Active amLODIPine (NORVASC) 5 mg tablet Take 1 tablet by mouth once daily. 90 tablet 2 10/03/19 25 Active furosemide (LASIX) 20 mg tabletIndicatio ns:PAF (paroxysmal atrial fibrillation) (HCC) Take 1 tablet by mouth once daily. Can take additional 20 mg as needed for swelling or >2 lb weight gain overnight. 90 tablet 3 10/11/19 25 Active amiodarone (PACERONE) 200 mg tabletIndicatio ns:Persistent atrial fibrillation (HCC) Take 1 tablet by mouth once daily. 90 tablet 3 10/20/19 25 Active losartan (COZAAR) 50 mg tablet Take 1 tablet by mouth once daily. 90 tablet 3 10/20/19 25 Active aspirin, enteric coated (ECOTRIN LOW STRENGTH) 81 mg EC tablet Take 1 tablet by mouth once daily. 30 tablet 5 05/19/19 23 2024 Discontinued DULoxetine (CYMBALTA) 60 mg capsule Take 1 capsule by mouth every afternoon. 05/31/19 24 2024 Discontinued(C ourse of therapy completed) amiodarone (PACERONE) 200 mg tabletIndicatio ns:Persistent atrial fibrillation (HCC) 200 mg 3 times daily for 1 week followed by 200 mg 2 times daily for 3 weeks followed by 200 mg daily thereafter 200 tablet 05/22/19 25 2024 Discontinued losartan (COZAAR) 50 mg tablet Take 2 tablets by mouth once daily. 90 tablet 3 05/25/19 25 2024 Discontinued amLODIPine (NORVASC) 5 mg tablet Take 1 tablet by mouth once daily. 90 tablet 06/29/19 25 2024 Discontinued furosemide (LASIX) 20 mg tabletIndicatio ns:PAF (paroxysmal atrial fibrillation) (HCC) Take 1 tablet by mouth once daily. Can take additional 20 mg as needed for swelling or >2 lb weight gain overnight. 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 Marcos Bermuedz 05/19/2022 Atrial fibrillation 05/19/2022 Gastrointestinal hemorrhage 05/18/2022 Low back pain, unspecified 01/12/202206/13 Visit for monitoring Tikosyn therapy 09/06/2018 Persistent atrial fibrillation 07/28/2018 Obesity, Class I, BMI 30-34.9 01/03/2018 Right shoulder pain 09/21/2016 Stiffness of shoulder joint 09/21/2016 Weakness of shoulder 09/21/2016 Chronic diastolic congestive heart failure 12/18 Acute on chronic diastolic congestive heart fail ure 10/31/2015 Limitation of joint motion of shoulder 6 Osteoarthritis 08/06/2015 Melanoma 07/23/2015 Overview (07/23/2015): left breast melanoma s/p surgery. HTN (hypertension), benign 07/23/2015 Biceps rupture, proximal 05/29/2015 Contracture of shoulder 05/29/2015 Rotator cuff tear arthropathy 05/29/2015 Complete tear of left rotator cuff 05/29/2015 LPRD (laryngopharyngeal reflux disease) 12/30/19 12 Chronic throat clearing 12/30/2011 PAF (paroxysmal atrial fibrillation) Overview (09/01/2011): s/p ablation 2004 Former smoker Obstructive lung disease Hyperlipemia PUD (peptic ulcer disease) GERD (gastroesophageal reflux disease) Carpal tunnel syndrome Hx of neck disorder Rotator cuff tear Arthritis Depression Alcohol use Cervical spine pain Encounters Date Type Department Care Team Description 10/19/2024 3:30 PM EDT Office Visit Cardiology [address] [place] [phone] Carmen Goldberg APRN.WELFARE CASE WORKER Current use of intermediate designer anticoagulation (Primary Dx); Persistent atrial fibrillation (HCC) 10/19/2024 2:00 PM EDT Procedure Pulmonary Medicine [address] [place] [address] Spirometry 10/19/2024 1:45 PM EDT Procedure Pulmonary Medicine [address] [place] [address] Spirometry 10/17/2024 4:00 PM EDT [facility] Spine Medicine [address] [place] [address] Mao De La Rosa, 10/15/2024 Travel 10/11/2024 Patient [facility] HB-3 [address] [place] [address] Ryanne Angulo [facility] A Smarter Way to Manage Your Heart Failure Medications 10/10/2024 Refill Cardiology [id number] [place] [phone] Rosa Elena Lui PA-C Refill Request 10/02/2024 Refill Cardiology [id number] [place] [phone] Syl Mandujano APRN.WELFARE CASE WORKER Refill Request 10/02/2024 Get Medical Advice Cardiology [address] [place] [phone] Angeli Au MD elevated level of - creatinine @ 1.5 10/01/2024 Telephone [facility] [address] [phone] Mao De La Rosa, Post Injection Questions 09/27/2024 11:04 AM EDT - 09/27/2024 12:26 PM EDT Surgery Ambulatory Surgery [address] [place] [address] Mao De La Rosa DO DESTRUCTION BY RADIO FREQUENCY ABLATION PARAVERTEBRAL FACET JOINT NERVE(S) LUMBAR/SACRAL SINGLE FACET JOINT W/IMAGE GUIDANCE FLUORO OR CT 09/27/2024 10:08 AM EDT - 09/27/2024 1:33 PM EDT Hospital Encounter Ambulatory Surgery [address] [place] [address] Mao De La Rosa, Lumbar spondylosis [M47.816] Discharge Disposition: Home 09/27/2024 Travel 09/20/2024 Telephone Neurology [address] [place] [address] Mao De La Rosa, DO Appointment 09/19/2024 4:40 PM EDT [facility] Spine Medicine [address] [place] [phone] Mao De La Rosa, DO No-show for appointment (Primary Dx) 09/17/2024 Telephone [facility] [address] [place] [address] Mao De La Rosa, DO Preperations for Procedure Call 09/10/2024 1:30 PM EDT [facility] Cardiology [address] [place] [phone] Mamadou Madrid MD terminal block assembler current use of amiodarone (Primary Dx); Atrial fibrillation, persistent (HCC); LBBB (left bundle branch block); Coronary artery disease due to lipid rich plaque 09/10/2024 Travel 09/10/2024 Telephone [facility] Provider Adult [address] [place], [place] [phone] Teresa Melvin APRN.WELFARE CASE WORKER Appointment; Clinical Update 09/07/2024 Nurse Triage NURSE SENIOR NET WEB DEVELOPER [address] [place] [address] Severiano Zimmerman, BEN Clinical Symptoms 09/07/2024 Nurse Triage NURSE SENIOR NET WEB DEVELOPER [address] [place] [address] Jeaneth Steele, RN Clinical Update 09/06/2024 Telephone [facility] [address] [place] [address] Mao De La Rosa DO Preperations for Procedure (Mychart) 09/06/2024 Orders Only Spine Medicine [address] [place] [phone] Mao De La Rosa, DO Lumbar spondylosis (Primary Dx) 08/31/2024 Get Medical Advice Spine Medicine [address] [place] [phone] Mao De La Rosa, DO my back procedure on 08-28-24 08/28/2024 9:41 AM EDT - 08/28/2024 10:23 AM EDT Surgery Ambulatory Surgery [address] [place] [phone] Mao De La Roas, DO BLOCK MEDIAL BRANCH LUMBAR WITH C-ARM 08/28/2024 9:06 AM EDT - 08/28/2024 11:18 AM EDT Hospital Encounter Ambulatory Surgery [address] [place], [place] [phone] Mao De La Rosa, DO Lumbar spondylosis [M47.816] Discharge Disposition: Home 08/28/2024 Travel 08/16/2024 Get Medical Advice Cardiology [address] [place] [phone] Syl Mandujano, KITCHEN RUNNER.WELFARE CASE WORKER i believe my heart is back in Afib 08/15/2024 Telephone Cardiology [address] [place] [phone] Angeli Au MD message from patient 08/14/2024 Telephone [facility] [address] [place] [phone] Mao De La Rosa, DO Preperations for Procedure Call 08/13/2024 Telephone [facility] [address] [place] [phone] Mao De La Rosa, DO Preperations for Procedure (Mychart) 08/07/2024 Telephone Cardiology [address] [place] [address] Syl Mandujano, EHSAN.WELFARE CASE WORKER 08/02/2024 Patient Msg Cardiology [address] [place] [phone] Provider, [facility] List of Providers you Requested 07/31/2024 Refill Cardiology [address] [place] [address] Joel Thacker MD Refill Request 07/30/2024 Telephone [facility] Provider Adult [address] [place] [address] Syl Mandujano APRN.WELFARE CASE WORKER Appointment 07/26/2024 10:30 AM EDT Nurse Visit Cardiology [address] [place] [address] PAF (paroxysmal atrial fibrillation) (HCC) 07/23/2024 Orders Only [facility] [address] [place] [phone] Mao De La Rosa DO Lumbar spondylosis (Primary Dx) 07/22/2024 Travel from Last 3 Months Immunizations Immunization Administration Dates Next Due COVID-19 vaccine, unspecifie d formulation 09/10/2021 Haemophilus influenzae b-hep atitis B (Hib-HepB) vaccine (COMVAX) 12/04/2009,07/03/2009 diphtheria tetanus pertussis (DTP) vaccine 09/09/2020 hepatitis A-hepatitis B (Hep A-HepB) vaccine (TWINRIX) 11/10/2015,10/06/2015 influenza (HD-IIV3) vaccine, age 65+ yr, high dose, trivalent, PF (FLUZONE HIGH-DOSE) 03/08/2018,03/17/2017 influenza (HD-IIV4) vaccine, age 65+ yr, high dose, quadrivalent, PF (FLUZONE HIGH-DOSE) 03/29/2023,02/25/2022,03/06/2021,02/20 influenza (IIV3) vaccine, tr ivalent (AFLURIA, FLULAVAL, FLUVIRIN, FLUZONE) 02/04/2015 influenza (LAIV) vaccine, na zenia, unspecified formulation 03/02/2021,02/08/2021,02/20/2019,01/30 novel influenza (R1G3-15) vaccine, PF 07/03/2009 pneumococcal conjugate (PCV1 3) vaccine, 13 valent (PREVNAR 13) 01/30/2017 pneumococcal polysaccharide (PPV23) vaccine, 23 valent (PNEUMOVAX 23) 02/04/2015 respiratory syncytial virus (RSV) vaccine, bivalent (ABRYSVO) 05/14/2023 tetanus diphtheria pertussis (Tdap) vaccine, age 7+ yr (ADACEL, BOOSTRIX) 05/01/2015 zoster (RZV) vaccine, recomb inant (SHINGRIX) 05/01/2019,12/06/2018 Family History Medical History Relation Comments No Known Problems Brother No Known Problems Daughter 1 No Known Problems Daughter 2 Heart Father s/p AVR Heart Grandchild Shone disease; d ied at age 6 days old No Known Problems Maternal Grandfather No Known Problems Maternal Grandmother TB Mother age 78, Tub erculosis, of natural causes No Known Problems Paternal Grandfather No Known Problems Paternal Grandmother Coronary Artery Disease Sister 1 s/p CABG x3 No Known Problems Sister 2 No Known Problems Son Relation Status Comments Brother Alive Daughter 1 Alive Daughter 2 Alive Father Grandchild Maternal Grandfather Maternal Grandmother Mother Paternal Grandfather Paternal Grandmother Sister 1 Alive Sister 2 Alive Son Alive Social History Tobacco Use Types Packs/Day Years Used Date Smoking Tobacco: Former Cigarettes 1.5 15 0 05/02/1970 - 05/02/1985 Smokeless Tobacco: Never Tobacco Cessation:Counseling Given: Not Answered Alcohol Use Standard Drinks/Week Comments Yes 10 [...] is lower risk 6 09/14/2022 Data from: https://www.neighborhoodatlas.medicine.[facility].edu/. Last address used for calculation [address] 09/14/2022 Education Answer Date Recorded What [...] file Not on file Not on file Last Filed Vital Signs Vital Sign Reading Time Taken Comments Blood Pressure 118/60 10/19/2024 3:28 PM EDT Pulse 82 10/19/2024 3:28 PM EDT Temperature 36.6 C (97.9 F) 09/27/2024 1:00 PM EDT Respiratory Rate 16 09/27/2024 1:00 PM EDT Oxygen Saturation 96% 10/19/2024 3:28 PM EDT Inhaled Oxygen Concentration - - Weight 93.4 kg (206 lb) 10/19/2024 3:28 PM EDT Height 177.8 cm (5' 10 ) 10/19/2024 3:28 PM EDT Body Mass Index 29.56 10/19/2024 3:28 PM EDT Plan of Treatment Upcoming Encounters Date Type Department Care Team (Late st Contact Info) Description 12/05/2024 2:20 PM EDT Office Visit Cardiology [address] [place] [phone] [place] [address] [place], [place] [phone] Return in about 4 months (around 11/16/2024). Health Maintenance Due Date Last Done Comments Annual PCP Team Chronic Dise ase Visit 01/28/1964 Anxiety Screening 01/28/1964 Hepatitis C Screening 01/28/1964 Advance Directive Discussion 05/02/2024 Medicare Advantage Annual Wellness Visit 05/02/2024 LDL Cholesterol 06/07/2024 06/07/2023, 03/07/2019 Covid-19 Vaccine (2023- 5 season) 2024 03/30/2024, 03/29/2023, 02/25/2022, Additional history exists Diabetes Screening 09/20/2027 09/19/2024, 0 09/07/2024, 07/12/2024, Additional history exists DTaP,Tdap,Td Vaccine (3 - Td or Tdap) 09/09/2030 09/09/2020, 05/01/2015 Pneumococcal Vaccine: 50+ Completed 01/30/2017, 09/2014 Shingrix Vaccine Completed 05/01/2019, 12/06/2018 Colonoscopy Discontinued 12/22/2020 Colorectal Cancer Screening Discontinued RSV Vaccine Completed 05/14/2023 Influenza Vaccine Completed 03/08/2024, , 03/29/2023, Additional history exists CT Colonography Discontinued Cologuard (FIT-DNA) Discontinued Fecal Occult Blood Discontinued Sigmoidoscopy Discontinued Goals Goal Patient Goal Type Associated Problems Recent Progress Patient-Stated? Author Blood Pressure < 130/80 Blood Pressure 118/60(2024 3:28 PM EDT) [employer] Implanted Type Area Leasing Assistant Device Identifier Shelf Expiration Date Model / Serial / Lot Cement Simplex P Tobramycin Bone Full Dose Radiopaque Preblend Sterile - [id number] Implanted:Qty: 2 on 08/06/2015 at [facility] Cement / Putty Left: Bone - Shoulder [employer] [employer] 10/29/2016 [id number] / / [id number] Description:Simplex P antibi otic bone cement with Tobramycin Cement Simplex P Tobramycin Bone Full Dose Radiopaque Preblend Sterile - [id number] Implanted:Qty: 2 on 09/08/2016 at [facility] Cement / Putty Right: Bone - Shoulder [employer] [employer] 11/08/2017 [id number] / / [id number] Baseplate 15mm Trabecular Metal Glenoid Reverse Sterile Shoulder - [id number] Implanted:Qty: 1 on 08/06/2015 at [facility] Joint - Shoulder Left: Bone - Shoulder [employer] 03/01/2025 [id number] / / [id number] Description:trabecular metal reverse shoulder system Sphere 36mm Trabecular Metal Polyethylene Glenoid Reverse Sterile Shoulder - [id number] Implanted:Qty: 1 on 08/06/2015 at [facility] Joint - Shoulder Left: Bone - Shoulder [employer] 11/29/2024 [id number] / / [id number] Description:Singh trabecula r metal reverse shoulder glenosphere Stem 14mm 3 Trabecular Metal Tivanium 130mm Humeral Reverse Sterile - [id number] Implanted:Qty: 1 on 08/06/2015 at [facility] Joint - Shoulder Left: Bone - Shoulder [employer] 09/29/2024 [id number] / / [id number] Sphere 36mm Trabecular Metal Polyethylene Glenoid Reverse Sterile Shoulder - [id number] Implanted:Qty: 1 on 09/08/2016 at [facility] Joint - Shoulder Right: Bone - Shoulder [employer] 07/09/2026 [id number] / / [id number] Baseplate 15mm Trabecular Metal Glenoid Reverse Sterile Shoulder - [id number] Implanted:Qty: 1 on 09/08/2016 at [facility] Joint - Shoulder Right: Bone - Shoulder [employer] 07/09/2026 [id number] / / [id number] Stem 14mm 3 Trabecular Metal Tivanium 130mm Humeral Reverse Sterile - [id number] Implanted:Qty: 1 on 09/08/2016 at [facility] Joint - Shoulder Right: Bone - Shoulder [employer] 08/09/2026 [id number] / / [id number] Restrictor Latitude 8-15mm Cement Elbow - [id number] Implanted:Qty: 1 on 08/06/2015 at [facility] Joint Left: Bone - Shoulder [employer] 05/09/2020 [id number] / [id number] / Description:Cement restricto r Liner 36mm 7d Standard Offset Trabecular Metal Polyethylene 6+ Mm Shoulder - [id number] Implanted:Qty: 1 on 08/06/2015 at [facility] Joint Left: Bone - Shoulder [employer] 08/29/2022 [id number] / / [id number] Description:reverse shoulder poly liner Restrictor Latitude 8-15mm Cement Elbow - [id number] Implanted:Qty: 1 on 09/08/2016 at [facility] Joint Right: Bone - Shoulder [employer] 07/09/2021 [id number] / [id number] / Liner 36mm 7d Standard Offset Trabecular Metal Polyethylene 6+ Mm Shoulder - [id number] Implanted:Qty: 1 on 09/08/2016 at [facility] Joint Right: Bone - Shoulder [employer] 05/11/2024 [id number] / / [id number] Screw Ncb Anatomical Shoulder 4.5mm Protasul-64wf 36mm Bone Inverse Reverse - [id number] Implanted:Qty: 1 on 08/06/2015 at [facility] Screw Left: Bone - Shoulder [employer] 11/30/2019.48763.03 6 / / [id number] Description:inverse-reverse screw Screw Ncb Anatomical Shoulder 4.5mm Protasul-64wf 36mm Bone Inverse Reverse - [id number] Implanted:Qty: 1 on 08/06/2015 at [facility] Screw Left: Bone - Shoulder [employer] 08/30/2019 01.26830.03 6 / / [id number] Description:inverse-reverse screw system Screw Ncb Anatomical Shoulder 4.5mm Protasul-64wf 36mm Bone Inverse Reverse - [id number] Implanted:Qty: 1 on 09/08/2016 at [facility] Screw Right: Bone - Shoulder [employer] 08/09/2020.36561.03 6 / / [id number] Screw Ncb Anatomical Shoulder 4.5mm Protasul-64wf 42mm Bone Inverse Reverse - [id number] Implanted:Qty: 1 on 09/08/2016 at [facility] Screw Right: Bone - Shoulder [employer] 12/09/2020.24944.04 2 / / [id number] Procedures Procedure Name Priority Date/Time Associated Diagnosis Comments ECG COMPLETE 10/19/2024 3:57 PM EDT LVEF TRANSTHORACIC ECHO Routine 10/19/2024 2:44 PM EDT ECHO Routine 10/19/2024 2:44 PM EDT PAF (paroxysmal atrial fibrillation) ([facility]) LBBB (left bundle branch block) Chronic HFrEF (heart failure with reduced ejection fraction) ([facility]) Coronary artery disease involving moapa coronary artery of moapa heart without angina pectoris Aortic dilatation IRB 21-1031 [facility] [employer] (WATCH RWE) PI: Dr. Marcos Bermudez Obesity, Class I, BMI 30-34.9 SPIROMETRY - BASELINE AND POST DILATOR Routine 10/19/2024 2:04 PM EDT [facility]iary current use of amiodarone LUNG DIFFUSION CAPACITY (DLCO) Routine 10/19/2024 2:04 PM EDT penitentiary current use of amiodarone DSTR NROLYTC AGNT PARVERTEB FCT ADDL LMBR/SACRAL 09/27/2024 11:27 AM EDT Lumbar spondylosis DSTR NROLYTC AGNT PARVERTEB FCT SNGL LMBR/SACRAL 09/27/2024 11:27 AM EDT Lumbar spondylosis NT PRO BNP Routine 09/19/2024 12:34 PM EDT HFrEF (heart failure with reduced ejection fraction) (HCC) BASIC METABOLIC PANEL Routine 09/19/2024 12:34 PM EDT HFrEF (heart failure with reduced ejection fraction) (HCC) MAGNESIUM BLD Routine 09/07/2024 12:46 PM EDT Visit for monitoring Tikosyn therapy BASIC METABOLIC PANEL Routine 09/07/2024 12:46 PM EDT Visit for monitoring Tikosyn therapy NJX DX/THER AGT PVRT FACET JT LMBR/SAC 2ND LEVEL 08/28/2024 10:14 AM EDT Lumbar spondylosis NJX DX/THER AGT PVRT FACET JT LMBR/SAC 1 LEVEL 08/28/2024 10:14 AM EDT Lumbar spondylosis ECG COMPLETE 07/26/2024 10:47 AM EDT ECG COMPLETE Routine 07/26/2024 10:47 AM EDT PAF (paroxysmal atrial fibrillation) (HCC) LIPID PANEL, FASTING Routine 06/07/2023 10:33 AM EST Hyperlipidemia, unspecified hyperlipidemia type from Last 3 Months or Most Recently Relevant to Health Maintenance Results * ECHO (10/19/2024 2:44 PM EDT) 10/19/2024 2:44 PM EDT [facility] - 10/19/2024 4:26 PM EDT CONCLUSIONS: - Exam indication: H/o Chronic HFrEF, PAF - The left ventricle is normal in size. There is minimal septal left ventricular hypertrophy. Left ventricular systolic function is normal. EF = 53 5% (visual est.) - The right ventricle [...] performed on 11/17/2023. (YOGESH) report comparison only. * * * Final * * * [facility] - 10/19/2024 4:26 PM EDT Echocardiography Report: Transthoracic Echo [facility] Date of service: 10/19/2024 2:44:31 PM TAKER Ordering physician: ANGELI AU Exam indication: H/o Chronic HFrEF, PAF, and LBBB Technologist: Elissa Oliveira [facility] Interpreting physician: Giovanny Delgado MD PATIENT: Name: IRENA PERAZA : 1945 Age: 79 years Gender: M History of hypertension, dyslipidemia, arrhythmia and coronary artery disease. Previous cardiovascular interventions: Watchman (08/2024) Primary rhythm: atrial fib. Secondary rhythm: AV Block. Height: 177.80 cm BSA: 2.19 m Weight: 97.07 kg BMI: 30.7 kg/m Heart rate 77 bpm Blood pressure 118/60 mmHg Color Doppler was utilized to interrogate the cardiac valves assessed and spectral Doppler was utilized to determine the flow velocities and pressure gradients reported in this exam. MEASUREMENTS: Value Indexed Normal Max aortic dimension 4.2 cm Ao < 3.8 Left atrial volume 103 ml (biplane A-L) 47 ml/m Paxton <= 34 LV ID (diastole) 4.9 cm (2D) 2.25 cm/m LV ID (systole) 3.6 cm (2D) 1.64 cm/m IVS, leaflet tips 1.1 cm (2D) Posterior wall thickness 0.9 cm (2D) Left ventricular mass 179 g (2D) 82 g/m Ejection Fraction 53 % (visual est.) EF > 52 FINDINGS: LEFT VENTRICLE The left ventricle is normal in size. There is mild septal left ventricular hypertrophy. Left ventricular systolic function is normal globally. Left ventricular diastolic function was not evaluated due to AF. Wall Motion: All scored segments are normal. RIGHT VENTRICLE The right ventricle is mildly dilated. Right ventricular systolic function is normal globally. RV systolic tissue Doppler velocity is 11.0 cm/s. Tricuspid annular displacement is 2.1 cm. Estimated right ventricular systolic pressure is 19 mmHg consistent with normal pulmonary artery pressures. Estimated right atrial pressure is 3 mmHg based on IVC assessment. LEFT ATRIUM The left atrial cavity is moderately dilated. RIGHT ATRIUM The right atrial cavity is mildly dilated. Inferior Vena Cava: The inferior vena cava appears normal measuring 1.4 cm. The vessel decreases greater than 50 percent with inspiration. MITRAL VALVE There is trace mitral valve regurgitation. There is mild thickening. TRICUSPID VALVE There is mild (1+) tricuspid valve regurgitation. There is no thickening. AORTIC VALVE There is no aortic valve stenosis. There is mild (1+) aortic valve regurgitation. There is a regurgitant jet originating centrally. The vena contracta measures 3 mm. Jet width to LVOT ratio is 0.15. Tricuspid aortic valve. There is mild thickening. There is mild calcification. The peak gradient is 10 mmHg (peak velocity = 161.0 cm/s). The LVOT diameter is 2.0 cm. PULMONIC VALVE The pulmonic valve was not seen or not interrogated. There is trivial pulmonic valve regurgitation. AORTA The visualized aorta is dilated. Measurements - Aortic valve annulus 2.2 cm. Sinus: 4.0 cm. Sinotubular junction 3.4 cm. Mid ascending aorta 4.2 cm. Distal ascending aorta 4.0 cm. Mid arch 3.2 cm. PULMONARY ARTERIES The pulmonary arteries are unseen or not interrogated. INTERATRIAL SEPTUM The interatrial septum is unseen or not interrogated. INTERVENTRICULAR SEPTUM There is no flow through the interventricular septum as detected by Doppler. PERICARDIUM There is no pericardial effusion. There is an epicardial fat pad. us Angeli Au MD ECHO Final Result [facility] [address] [place] [address] * LVEF TRANSTHORACIC ECHO (10/19/2024 2:44 PM EDT) LV Ejection Fraction 53 % [facility] Comment: (visual est.) EF > 52 An LV Ejection Fraction of > 50% is normal 10/19/2024 2:44 PM EDT us Angeli Au MD LVEF RESULTS Final Result [facility] [address] [place] [address] * LUNG DIFFUSION CAPACITY (DLCO) (10/19/2024 2:04 PM EDT) 10/19/2024 2:04 PM EDT Narrative [facility] - 10/19/2024 3:50 PM EDT [facility] [address] [place] [address] Test Date: 2024-10-19 Pat Name: IRENA PERAZA Department: Room: Gender: Male Financial Services Associate: : 1945 Requested By: Order Number: [id number] Reading MD: Ron Bolton MD Interpretive Statements [...] 15:50:25 EDT by Ron Bolton MD ID: [id number] Name: IRENA PERAZA Race: White Ht: 67.87 in Wt: 207.23 lbs Age: 79 Gender: Male : 1945 Dx: Other custodial (current) drug therapy Smoking Hx: Non-smoker Doctor: [...] 90-100 0.32 33 FIVC 4.65 4.57 -1 TIY41-28 1.16 0.76 1.97 3.74 58 -1.01 1.17 [...] DLCO met with 2 acceptable maneuvers. //AH us Mamadou Madrid MD SCHEDULED PROCEDURES Final Resul t [facility] [address] [place] [address] * SPIROMETRY - BASELINE AND POST DILATOR [...] ULN (L/S) 1.37 L/S [facility] YXN82-43% PRE (L/S) 1.16 L/S [facility] NXM19-04% POST (L/S) 1.17 L/S [facility] NRL84-85% PREDICTED (L/S) 1.97 L/S [facility] WYQ90-74% LLN (L/S) 0.76 L/S PULMONARY FUNCTION LAB [...] FUNCTION LAB - 10/19/2024 3:50 PM EDT [facility] [address] [facility] 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 //AH us Mamadou Madrid MD SCHEDULED PROCEDURES Final Resul t Performing Organization Address City/[facility]/ZIP Co de Phone Number [facility] [address] [facility] [place] [address] * (ABNORMAL) NT PRO BNP (09/19/2024 12:34 PM EDT) NT Pro BNP 1,455(H) <450 pg/mL 09/20/2024 6:12 PM EDT [facility] Blood BLOOD SPECIMEN / Unknown Venipuncture / Unknown 09/19/2024 12:34 PM EDT 09/19/2024 12:34 PM EDT us Teresa Melvin KITCHEN RUNNER.WELFARE CASE WORKER LABORATORY Final Res ult Performing Organization Address City/[facility]/ZIP Co de Phone Number [facility] [address] [facility] [place] [address], * (ABNORMAL) BASIC METABOLIC PANEL (09/19/2024 12:34 PM EDT) Only the most recent of2 resultswithin the time period is included. Glucose 98 74 - 99 mg/dL 09/19/2024 12:58 PM EDT [facility] Comment: The [place] Diabetes Association (ADA) provides guidance for cutoff [...] Standards of Medical Care in Diabetes 2016, [place] Diabetes Association. Diabetes Care. 2016.39(Suppl 1). BUN 15 9 - 24 mg/dL 09/19/2024 12:58 PM EDT [facility] Creatinine 1.70(H) 0.73 - 1.22 mg/dL 09/19/2024 12:58 PM EDT [facility] Sodium 134(L) 136 - 144 mmol/L 09/19/2024 12:58 PM EDT [facility] Potassium 4.8 3.7 - 5.1 mmol/L 09/19/2024 12:58 PM EDT [facility] Chloride 98 98 - 107 mmol/L 09/19/2024 12:58 PM EDT [facility] CO2 27 22 - 30 mmol/L 09/19/2024 12:58 PM EDT [facility] Anion Gap 9 8 - 15 mmol/L 09/19/2024 12:58 PM EDT [facility] Calcium, Total 9.8 8.5 - 10.2 mg/dL 09/19/2024 12:58 PM EDT [facility] Estimated Glomerular Filtration Rate 41(L) >=60 mL/min/1. 73m 09/19/2024 12:58 PM EDT [facility] Comment:Estimated Glomerular Filtration Rate (eGFR) is calculated using the 2020 CKD-EPI creatinine equation. This equation utilizes serum creatinine, sex, and age as parameters. The creatinine assay has traceable calibration to isotope dilution- mass spectrometry. Refer to KDIGO guidelines for clinical interpretation. In patients with unstable renal function, e.g. those with acute kidney injury, the eGFR may not accurately reflect actual GFR. Blood BLOOD SPECIMEN / Unknown Venipuncture / Unknown 09/19/2024 12:34 PM EDT 09/19/2024 12:34 PM EDT us Teresa Melvin APRN.CNP LABORATORY Final Res ult [facility] [address] [place] [address] * MAGNESIUM (09/07/2024 12:46 PM EDT) Magnesium 1.9 1.7 - 2.3 mg/dL 09/07/2024 1:38 PM EDT [facility] Blood BLOOD SPECIMEN / Unknown Venipuncture / Unknown 09/07/2024 12:46 PM EDT 09/07/2024 12:46 PM EDT us Manny James MD LABORATORY Final Resul t [facility] [address] [place] [address] * ECG COMPLETE (07/26/2024 10:47 AM EDT) Ventricular Rate 66 BPM [facility] Atrial Rate 66 BPM [facility] P-R Interval 236 ms [facility] QRS Duration 84 ms [facility] QT Interval 410 ms [facility] QTC Calculation (Bazett) 429 ms [facility] Calculated P [place] 54 degrees [facility] Calculated R [place] -6 degrees [facility] Calculated T [place] 36 degrees [facility] 07/26/2024 10:4 7 AM EDT Impressions [facility] - 07/28/2024 2:12 PM EDT SINUS RHYTHM WITH SINUS ARRHYTHMIA WITH 1ST DEGREE AV BLOCK OTHERWISE NORMAL ECG Confirmed by TRACEY LOZANO MD ([id number]) on 07/28/2024 2:12:56 PM Narrative [facility] - 07/28/2024 2:12 PM EDT NAME : IRENA PERAZA PID : [id number] : 1945 Gender : Male Race : ORD : [id number] Procedure Date : Jul 26 2024 10:47:14 Edit Date : Jul 28 2024 14:12:58 Diagnosis: SINUS RHYTHM WITH SINUS ARRHYTHMIA WITH 1ST DEGREE AV BLOCK OTHERWISE NORMAL ECG Confirmed by TRACEY LOZANO MD ([id number]) on 07/28/2024 2:12:56 PM Test Reason : Location : 145 : LOCARD Overread By : TRACEY LOZANO MD Edited By : TRACEY LOZANO MD Referred By : , Acquired by : , us Teresa Melvin KITCHEN RUNNER.WELFARE CASE WORKER EKG Final Res ult [facility] [address] [id number] * (ABNORMAL) LIPID PANEL BASIC (06/07/2023 10:33 AM EST) Cholesterol, Total 189 <200 mg/dL 06/07/2023 6:56 PM EST [facility] Comment: <200 mg/dL, Desirable 200-239 mg/dL, Borderline high >239 mg/dL, High Triglyceride 331(H) <150 mg/dL 06/07/2023 6:56 PM EST [facility] Comment: <150 mg/dL, Normal 150-199 mg/dL, Borderline high 200-499 mg/dL, High >499 mg/dL, Very high HDL Cholesterol 42 >39 mg/dL 6:56 PM EST [facility] Comment: 40-59 mg/dL, Acceptable >59 mg/dL, High: Negative risk factor for coronary heart disease <40 mg/dL, Low: Positive risk factor for coronary heart disease Non HDL Cholesterol 147(H) <130 mg/dL 06/07/2023 6:56 PM EST [facility] Comment: <130 mg/dL, Optimal 130-159 mg/dL, Near optimal/above optimal 160-189 mg/dL, Borderline high 190-219 mg/dL, High >219 mg/dL, Very high Secondary prevention optimal non HDL Cholesterol levels are recommended to be <100 mg/dL Fasting Time 12 hrs 06/07/2023 6:56 PM EST [facility] VLDL Cholesterol 66(H) <30 mg/dL 06/07/19 24 6:56 PM EST [facility] TC:HDL Ratio 4.50 <5.10 06/07/2023 6:56 PM EST [facility] LDL Cholesterol, Calculated 81 <100 mg/dL 06/07/2023 6:56 PM EST [facility] Comment: <100 mg/dL, Optimal 100-129 mg/dL, Near optimal/above optimal 130-159 mg/dL, Borderline high 160-189 mg/dL, High >189 mg/dL, Very high Secondary prevention optimal LDL Cholesterol levels are recommended to be < 70 mg/dL LDL:HDL Ratio 1.93 <2.54 06/07/2023 6:56 PM EST [facility] Comment: Reference: 1. National Cholesterol Education Program ATP III Guideline At-A-Glance Quick Desk Reference: National Heart, Lung, and Blood [place]. National Institutes of Health. 2001: NIH Publication No. 01-3305. 2. An International Atherosclerosis Society position paper: global recommendations for the management of dyslipidemia: executive summary, Atherosclerosis. 2014: 232(2):410-413. Blood BLOOD SPECIMEN / Unknown Venipuncture / Unknown 06/07/2023 10:33 AM EST 06/07/2023 10:33 AM EST us Antonio Roman KITCHEN RUNNER.WELFARE CASE WORKER LABORATORY Final Res ult [facility] [address] [facility] [address] [address], [facility] [address] [place] [phone] from Last 3 Months or Most Recently Relevant to Health Maintenance Insurance [employer] HMO Care Teams Porter Marina Relationship Specialty Start Date End Date Ny Hurtado NP [address] [facility] [address] [place] [address] PCP - General Family Medicine 08/03/24 Nolberto Thomas [address] [place] [address] Primary Staff Physician Cardiology 07/18/18 Flory Fan MD [address] [place], [place] [id number] Primary Staff Physician Cardiology 05/18/22 [place] [address] [place] [address] Hand Compositor Cardiology 05/24/24 [place] [address] [place] [address] Hand Compositor Cardiology 05/24/24 Jose Fontaine MD [address] [place] [address] Surgeon Cardiac Surg 05/25/24
--- OUTSIDE RECORDS SUMMARY | 2024-10-21 09:37 | XMS_ITS | Encounter Summary ---
Author Organization [facility] Address [facility] [place] [address] Care Team Providers Care Chief Business Development Officer Name Role Phone EveretteLambertoyesica Armstrong DIRECTOR TRADING Primary Care Provider [phone] Nolberto Thomas Unavailable [phone] Lo Flory Lovett MD Unavailable Justina Natarajan MD Unavailable [phone] Jamal Simon MD Unavailable Manny James MD Unavailable [phone] Jose Fontaine MD Unavailable [phone] Ny Hurtado NP Primary Care Provider Source Comments In the event this information is protected by the Federal Confidentiality of Alcohol and Drug AbusePatient Records regulations: The Federal rules restrict any use of the information to criminally investigate or prosecute any alcohol or drug abuse patient.[facility] Encounter Details Date Type Department Care Team (Late st Contact Info) Description 06/13/2023 Patient Msg Cardiology [address] [place] [address] Provider, Ccf Nuclear stress test instructions Social History Tobacco Use Types Packs/Day Years [...] risk 6 09/14/2022 Data from: https://www.neighborhoodatlas.medicine.[facility].edu/. Last address used for calculation [address] 09/14/2022 Education Answer Date Recorded What [...] 12/05/2024 2:20 PM EDT Office Visit Cardiology [address] [place] [address] [place] [address] [place] [address] Return in about 4 months (around 11/16/2024). documented as of this encounter Visit Diagnoses Not on filedocumented in this encounter Care Teams Chief Business Development Officer Relationship Specialty Start Date End Date Scarlett Gaviria CNP [address] [place] [id number] PCP - General Family Medicine 10/15/15 08/02/24 Ny Hurtado NP [address] [place] [address] PCP - General Family Medicine 08/03/24 Nolberto Thomas [address] [place] [address] Primary Staff Physician Cardiology 07/18/18 Flory Fan MD [address] [place] [address] Primary Staff Physician Cardiology 05/18/22 [place] [address] [place] [address] Meat Cooler Cardiology 05/24/24 Jamal Simon MD [address] [place] [address] Surgeon Cardiac Surg 05/24/24 05/24/24 [place] [address] [place] [address] Meat Cooler Cardiology 05/24/24 Jose Fontaine MD [address] [place] [address] Surgeon Cardiac Surg 05/25/24 documented as of this encounter
--- OUTSIDE RECORDS SUMMARY | 2024-10-21 09:37 | XMS_ITS | Patient Health Record ---
Author Organization [facility] Address [address] [place], [place] [id number] Care Team Providers Care Audit Practice Intern Name Role Phone Jamal Hogan Unavailable [phone] Reason For Referral No Information Plan Of Treatment No Information Insurance Providers Payer Name Payer Address Payer Phone Subscriber Number Group Number Insured Name Patient Relationship to Insured Coverage Start Date Coverage End Date [employer] [address] [address] [place], [place] [id number] [phone] [id number] IRENA BUSCH Self - patient is the insured
--- OUTSIDE RECORDS SUMMARY | 2024-10-21 09:37 | XMS_ITS | Encounter Summary ---
Author Organization [facility] Address [address] [place] [address] Care Team Providers Care Ironmolder Name Role Phone Nolberto Thomas Unavailable [phone] Lo Flory Lovett MD Unavailable [phone] Justina Natarajan MD Unavailable [phone] Manny James MD Unavailable [phone] Jose Fontaine MD Unavailable [phone] Ny Hurtado NP Primary Care Provider [phone] Source Comments In the event this information is protected by the Federal Confidentiality of Alcohol and Drug AbusePatient Records regulations: The Federal rules restrict any use of the information to criminally investigate or prosecute any alcohol or drug abuse patient.[facility] Reason for Visit * Reason Onset Date Comments Refill Request 10/10/2024 Encounter Details Date Type Department Care Team (Late st Contact Info) Description 10/10/2024 Refill Cardiology [address] [facility] [place] [address] Rosa Elena Lui PA-C [address] [place] [address] Refill Request Social History Tobacco Use Types [...] lower risk 6 09/14/2022 Data from: https://www.neighborhoodatlas.medicine.[facility].edu/. Last address used for calculation [address] 09/14/2022 Education Answer Date Recorded What [...] encounter Miscellaneous Notes * Telephone Encounter - Emma Agee PA - 10/10/2024 12:29 PM EDT Please have patient repeat labs before visit with Dr. Au Requested Prescriptions Signed Prescriptions Disp Refills furosemide (LASIX) 20 mg tablet 90 tablet 3 Sig: Take 1 tablet by mouth once daily. Can take additional 20 mg as needed for swelling or >2 lb weight gain overnight. Authorizing Provider: ANGELI AU Ordering User: EMMA AGEE Prescription refilled MICHAEL Douglass * Telephone Encounter - Caroline Rojas MA - 10/10/2024 11:52 AM EDT Received request for refill of the following medications: Requested Prescriptions Pending Prescriptions Disp Refills furosemide (LASIX) 20 mg tablet 90 tablet 3 Sig: Take 1 tablet by mouth once daily. Can take additional 20 mg as needed for swelling or >2 lb weight gain overnight. Patient requested a 90 day refill. Pharmacy verified and updated accordingly. Patient was last seen in cardiology office: 07/17/2024 w/ Dr. Au. Upcoming appointment scheduled: 12/05/2024 w/ Dr. Au. Labs: Hemoglobin (g/dL) Date Value 06/28/2024 12.0 08/28/2020 13.8 Hematocrit (%) Date Value 06/28/2024 37.1 08/28/2020 42.3 WBC (k/uL) Date Value 06/28/2024 5.75 08/28/2020 7.89 Platelet Count (k/uL) Date Value 06/28/2024 238 08/28/2020 263 Creatinine Date Value Ref Range Status 09/19/2024 1.70 (H) 0.73 - 1.22 mg/dL Final 09/07/2024 1.77 (H) 0.73 - 1.22 mg/dL Final documented in this encounter Plan of Treatment Upcoming Encounters Date Type Department Care Team (Late st Contact Info) Description 12/05/2024 2:20 PM EDT Office Visit Cardiology [address] [place] [address] [place] [address] [place] [address] Return in about 4 months (around 11/16/2024). Scheduled Orders Name Type Priority Associated Diagnoses Orde r Schedule RENAL FUNCTION PANEL Lab Routine Medication refill Expected: 11/30/2024, Expires: 01/09/2025 documented as of this encounter Goals Goal Patient Goal Type Associated Problems Recent Progress Patient-Stated? Author Blood Pressure < 130/80 Blood Pressure 118/60(2024 3:28 PM EDT) Puja Lakhani documented as of this encounter Visit Diagnoses Diagnosis Medication refill- Primary Issue of repeat prescriptions PAF (paroxysmal atrial fibrillation) (HCC) Atrial fibrillation documented in this encounter Care Teams Ironmolder Relationship Specialty Start Date End Date Ny Hurtado NP [address] [facility] [address] [place], [place] [id number] PCP - General Family Medicine 08/03/24 Nolberto Thomas [address] [facility] [place] [address] Primary Staff Physician Cardiology 07/18/18 Flory Fan MD [address] [place] [address] Primary Staff Physician Cardiology 05/18/22 [place] [address] [place] [address] Package Maker Cardiology 05/24/24 [place] [address] [place] [address] Package Maker Cardiology 05/24/24 Jose Fontaine MD [address] [place], [place] [id number] Surgeon Cardiac Surg 05/25/24 documented as of this encounter
--- OUTSIDE RECORDS SUMMARY | 2024-10-21 09:37 | XMS_ITS | Encounter Summary ---
Author Organization [facility] Address [place] [place] [address] Care Team Providers Care Commercial Lines Account Assistant Name Role Phone Nolberto Thomas Unavailable Lo Flory Lovett MD Unavailable [phone] Justina Natarajan MD Unavailable [phone] Manny James MD Unavailable [phone] Jose Fontaine MD Unavailable [phone] Ny Hurtado NP Primary Care Provider [phone] Source Comments In the event this information is protected by the Federal Confidentiality of Alcohol and Drug AbusePatient Records regulations: The Federal rules restrict any use of the information to criminally investigate or prosecute any alcohol or drug abuse patient.[facility] Encounter Details Date Type Department Care Team (Latest Contact Info) Description 10/15/2024 Travel Social History Tobacco Use Types Packs/Day Years [...] risk 6 09/14/2022 Data from: https://www.neighborhoodatlas.medicine.[facility].edu/. Last address used for calculation [address] 09/14/2022 Education Answer Date Recorded What [...] 12/05/2024 2:20 PM EDT Office Visit Cardiology [address] [place] [address] [place] [address] [place] [address] Return in about 4 months (around 11/16/2024). documented as of this encounter Goals Goal Patient Goal Type Associated Problems Recent Progress Patient-Stated? Author Blood Pressure < 130/80 Blood Pressure 118/60(2024 3:28 PM EDT) No Puja Batista documented as of this encounter Visit Diagnoses Not on filedocumented in this encounter Care Teams Commercial Lines Account Assistant Relationship Specialty Start Date End Date Ny Hurtado NP [address] [facility] [address] [place] [address] PCP - General Family Medicine 08/03/24 Nolberto Thomas [address] [facility] [place] [place] [address] Primary Staff Physician Cardiology 07/18/18 Flory Fan MD [address] [place] [address] Primary Staff Physician Cardiology 05/18/22 [place] [address] [place], [place] [id number] Piling Cutter Cardiology 05/24/24 [place] [address] [place] [address] Piling Cutter Cardiology 05/24/24 Jose Fontaine MD [address] [facility] [place], [place] [address] Surgeon Cardiac Surg 05/25/24 documented as of this encounter
--- OUTSIDE RECORDS SUMMARY | 2024-10-21 09:37 | XMS_ITS | Clinical Summary ---
Author Organization [facility] Address [address] [facility] [place] [address] Care Team Providers Care Mental Health Unit Lead Psychologist Name Role Phone Unavailable Primary Care Provider Unavailabl e Source Comments The following information is NOT included in Care Everywhere downloads:Psychiatric notes, ECG results, Cardiac Rehab notes, Pulmonary Function notes, data from [employer] (includes but not limited toPregnancy data,audiograms, eye exams, pre-surgical evaluation notes, well-child exam data).[facility] Allergies Active Allergy Reactions Criticality Noted Date Comments No Known Drug Allergies 10/24/2001 Medications LIPITOR TABS 40 MG OR 1 TABLET DAILY Active NEXIUM CPDR 40 MG OR 1 CAPSULE DAILY Active ZOLOFT TABS 50 MG OR 1 TAB PO QD Active ASPIRIN EC TBEC 325 MG OR 1 TABLET EVERY 4 HOURS NEEDED Active CALCIUM CITRATE CAPS 150 MG OR Activ e VITAMIN E CAPS 400 IU OR Active MULTIVITAMINS CAPS OR Active Active Problems Problem Noted Date Diagnosed Date Pain in joint, shoulder region 06/11/2002 Primary localized osteoarthrosis of shoulder reg ion 06/11/2002 Supraspinatus sprain 06/11/2002 Overview (02/05/2016): updated for 02/14 reg imo load Esophageal reflux Rotator cuff (capsule) sprain Family History Relation Name Status Comments Brother Alive Father (Age 78) Mother (Age 86) old age Sister Alive X2 Social History Tobacco Use Types Packs/Day Years Used Date Smoking Tobacco: Former Cigarettes 1.5 20 0 1966 - 1986 Alcohol Use Standard Drinks/Week Comments Yes 0 (1 standard drink = 0.6 oz pur e alcohol) 2 drinks daily Substance Use Types Use/Week Comments Not Asked Sex and Gender Information Value Date Recorded Sex Assigned at Not on file Legal Sex Male 11:21 AM EST Gender Identity Not on file Sexual Orientation Not on file Last Filed Vital Signs Vital Sign Reading Time Taken Comments Blood Pressure 132/80 10/24/2001 9:30 AM EDT Pulse 70 10/24/2001 9:30 AM EDT Temperature 36.4 C (97.5 F) 10/24/2001 9:30 AM EDT Respiratory Rate 16 10/24/2001 9:30 AM EDT Oxygen Saturation - - Inhaled Oxygen Concentration - - Weight 88.9 kg (196 lb) 10/24/2001 9:30 AM EDT Height 177.8 cm (5' 10 ) 10/24/2001 9:30 AM EDT Body Mass Index 28.12 10/24/2001 9:30 AM EDT Plan of Treatment Health Maintenance Due Date Last Done Comments Hepatitis C Antibody 01/28/1964 Tdap Booster 01/28/1964 Hepatitis A (HAV) Vaccine (optional start 19+ years) 0 1965 Tetanus (Td or Tdap) Booster 1965 Pneumococcal Vaccine(s) (50+ yrs) (1 of 1 - PCV) 01/27 Shingles (RZV) Vaccine (1 of 2) 01/28/1996 Hepatitis B (HBV) Vaccine (optional start 60+ years) 0 2006 RSV vaccine (adult) (1 - 1-dose 75+ series) 2021 COVID-19 Vaccine (1 - 2023-25 season) 2024 Insurance COMMERCIAL INSURANCE - OTHER MEDICAL MUTUAL - HMO/PPO/POS WORKER'S COMP - SELF INSURED
--- OUTSIDE RECORDS SUMMARY | 2024-10-21 09:37 | XMS_ITS | Encounter Summary ---
Author Organization [facility] Address [facility] [place] [address] Care Team Providers Care Cover Assembler Name Role Phone EveretteLambertoyesica Armstrong ATTRACTION WORKER Primary Care Provider [phone] Nolberto Thomas Unavailable [phone] Lo Flory Lovett MD Unavailable Justina Natarajan MD Unavailable [phone] Jamal Simon MD Unavailable [phone] Manny James MD Unavailable Jose Fontaine MD Unavailable [phone] Ny Hurtado NP Primary Care Provider Source Comments In the event this information is protected by the Federal Confidentiality of Alcohol and Drug AbusePatient Records regulations: The Federal rules restrict any use of the information to criminally investigate or prosecute any alcohol or drug abuse patient.[facility] Encounter Details Date Type Department Care Team (Late st Contact Info) Description 06/08/2023 Patient Msg Nuclear Medicine [address] [place] [address] Provider, [facility] Instructions for NM Stress testing on 06/13/23 at 10:00 am Social History Tobacco Use Types Packs/Day Years [...] is lower risk 6 09/14/2022 Data from: https://www.neighborhoodatlas.medicine.[facility].edu/. Last address used for calculation [address] 09/14/2022 Education Answer Date Recorded What [...] 12/05/2024 2:20 PM EDT Office Visit Cardiology [address] [place] [address] [place] [address] [place] [address] Return in about 4 months (around 11/16/2024). documented as of this encounter Visit Diagnoses Not on filedocumented in this encounter Care Teams Cover Assembler Relationship Specialty Start Date End Date Scarlett Gaviria CNP [address] [place], [place] [address]jess [place] [id number] PCP - General Family Medicine 10/15/15 08/02/24 Ny Hurtado NP [address] [facility] [address] [place] [address] PCP - General Family Medicine 08/03/24 Nolberto Thomas [address] [place] [address] Primary Staff Physician Cardiology 07/18/18 Flory Fan MD [address] [place] [address] Primary Staff Physician Cardiology 05/18/22 [place] [address] [place] [address] Senior Systems Administrator Cardiology 05/24/24 Jamal Simon MD [address] [place] [address] Surgeon Cardiac Surg 05/24/24 05/24/24 [place] [address] [place] [address] Senior Systems Administrator Cardiology 05/24/24 Jose Fontaine MD [address] [place] [address] Surgeon Cardiac Surg 05/25/24 documented as of this encounter
--- OUTSIDE RECORDS SUMMARY | 2024-10-21 09:37 | XMS_ITS | Clinical Summary ---
Author Organization [facility] Address [address] [place] [address] Phone Care Team Providers Care Fuel Efficient Automobile Designer Name Role Phone Unavailable Primary Care Provider Unavailabl e Social History Tobacco Use Types Packs/Day Years Used Date Smoking Tobacco: Never Assessed Sex and Gender Information Value Date Recorded Sex Assigned at Not on file Legal Sex Male 2:27 PM EST Gender Identity Not on file Sexual Orientation Not on file Plan of Treatment Not on file
--- OUTSIDE RECORDS SUMMARY | 2024-10-21 09:37 | XMS_ITS | CCD ---
Author Organization [facility] Team Providers Care Jockey Room Custodian Name Role Phone KB TORRES (SAI) Unavailable Unavailable LAURA, YFN H Unavailable Unavailable LAURA, YFN H Unavailable Unavailable LAURA, YFN H Unavailable Unavailable LAURA, YFN H Unavailable Unavailable LAURA, YFN H Unavailable Unavailable LAURA, YFN H Unavailable Unavailable Scarlett Gaviria Primary Care Physician [phone] Zahira Hogan Unavailable Unavailable Jacqueline Alvarado Unavailable Unavailable Kristina Rodriguez Unavailable Unavailable Scarlett Gaviria Primary Care Provider [phone] Nolberto Thomas Unavailable Scarlett Gaviria Primary Care Provider Nolberto Thomas Unavailable [phone] Scarlett Gaviria Primary Care Provider Yamile Thomastan Vagesh Unavailable [phone] Miriam Maravilla MD, Flory Unavailable DR DAVID KING Admitting Unavailable DR [...] TRACE SILVA Procedure Practitioner Unavail able TRACEY GUDNIO Consulting Unavailable Esvin Esteves Consulting Unavailable SHAIKH [...] PASCUAL Admitting Unavailable PASCUAL GODINEZ Attending Unavailable [facility], DR STOKES Primary Care Unavailable SAM CHAN Consulting Unavailable Nolberto Thomas Unavailable Miriam Maravilla MD, Flory Unavailable Scarlett Gaviria NP Unavailable Unallocated, [place] Provider Primary Care Provider Scarlett Gaviria Primary Care Provider ROOPA Esposito Attending Provider Yareli Esposito Attending Unavailable Yareli Esposito Admitting Unavailable Everette Scarlett Nathaniel Primary Care Unavailable Everette Scarlett Nathaniel Primary Care Provider [phone] Unallocated , Indigos Provider Primary Care Provi shaji Unallocated , [place] Provider Primary Care Provi shaji GABRIELAMBREEN SANDERSUL Referring Unavailable GABRIELAMBREENUL Attending Unavailable GABRIELAMBREENUL Attending Unavailable Nghia ROBERSON Attending Unavailable Nghia ROBERSON Admitting Unavailable Jose LuisowJevon lyman Attending Unavailable Adamowicz, Jevon Admitting Unavailable Adamowicz, Jevon Admitting Unavailable Adamowicz, Jevon Attending Unavailable Nghia ROBERSON P Admitting Unavailable Nghia ROBERSON Attending Unavailable Antony Blackburn Attending Unavailable Nghia ROBERSON Attending Unavailable Everette Scarlett L Admitting Unavailable Everette Scarlett L Attending Unavailable Rosa Isela JARVIS, Olimpia Malhotra Unavailable Pamela Simon MD Unavailable [phone] Odalys Pino MD Unavailable Zhen JARVIS, Dion Unavailable Everette CASHIERS SUPERVISOR, Scarlett L Primary Care Provider Alfred JARVIS, Pamela Linton Unavailable [phone] Sue Powell Primary Care Physician QUIANA CALLES Admitting Unavailable QUIANA CALLES Attending Unavailable GAVIRAI, SCARLETT L Primary Care Unavailable ODALYS PINO Referring Unavailable GAVIRIA, SCARLETT L Primary Care Unavailable DELBERT, MONI Referring Unavailable GAVIRIA, SCARLETT L Primary Care Unavailable Bryant TRAIN BRAKE OPERATOR, [place] Primary Care Provider Bryant MOSER-CASHIERS SUPERVISOR, [place] Unavailable Adilene Goodman Unavailable [place] HURTADO Primary Care Physician Jevon Pantoja Attending Unavailable Jose LuisowiczJevon Referring Unavailable Gaviria, Scarlett L Admitting Unavailable Gaviria, Scarlett L Attending Unavailable Gaviria, Scarlett L Referring Unavailable COOKNghia P Admitting Unavailable COOK, Nghia P Attending Unavailable COOK, Nghia P Attending Unavailable COOK, Nghia P Attending Unavailable COOK, Nghia P Attending Unavailable AdamowiczJevon Attending Unavailable DOLCE, HARIS Pool Attending Unavailable DOLCE, HARIS Pool Referring Unavailable DOLCE, HARIS Pool Attending Unavailable DOLCE, HARIS Pool Attending Unavailable LOWADILENE Linton Attending Unavailable PETITTI, KONRAD Trujillo Attending Unavailable DOLCE, HARIS Pool Attending Unavailable BROWNSEAN Referring Unavailable BROWN, SEAN Trujillo Attending Unavailable BROWN, SEAN A Referring Unavailable DOLCE, HARIS Pool Attending Unavailable LOWEADILENE Attending Unavailable PETITTI, KONRAD Trujillo Attending Unavailable DOLCE, HARIS Pool Attending Unavailable DOLCE, HARIS Pool Attending Unavailable DELBERT, MONI Referring Unavailable GAVIRIA, SCARLETT L Primary Care Unavailable DELBERT, MONI Referring Unavailable GAVIRIA, SCARLETT L Primary Care Unavailable ANGELI AU Admitting Unavailable ANGELI AU Attending Unavailable GAVIRIA, SCARLETT L Primary Care Unavailable Zuhair Beatty Admitting Unavaila Zuhair Ruiz Attending Unavaila ble Jevon Pantoja Admitting Unavailable Jevon Pantoja Attending Unavailable Zuhair Beatty Attending Unavaila Haris Rose Admitting Unavailable Doltrevin, Haris Pool Attending Unavailable Haris Sutton Referring Unavailable Jevon Pantoja Admitting Unavailable Jevon Pantoja Attending Unavailable Nghia ROBERSON Admitting Unavailable Nghia ORBERSON Attending Unavailable COOKNghia Attending Unavailable Gaviria CASHIERS SUPERVISOR, Scarlett L Primary Care Provider Zuhair Beatty Attending Unavaila ble Sarminjuan, Zuhair Shen Admitting Unavaila ble GAVIRIA, SCARLETT L Primary Care Unavailable GAVIRIA, SCARLETT L Primary Care Unavailable ODALYS PINO Referring Unavailable BRYANT, [place] Primary Care Unavailable [place], [place] Primary Care Unavailable EROS MADRID Attending Unavailable GAVIRIA, SCARLETT L Primary Care Unavailable KAYLAH KEMP Referring Unavailable GAVIRIA, SCARLETT L Primary Care Unavailable DELBERT, MONI Referring Unavailable GAVIRIA, SCARLETT L Primary Care Unavailable ALPA RAM Referring Unavailable ALPA RAM Attending Unavailable GAVIRIA, SCARLETT L Primary Care Unavailable DELBERT, MONI Referring Unavailable GAVIRIA, SCARLETT L Primary Care Unavailable ANGELI AU Attending Unavailable [place], [place] Primary Care Unavailable MOUSTAPHA MELVIN Referring Unavailable GAVIRIA, SCARLETT L Primary Care Unavailable SELF Referring Unavailable ALPA RAM Attending Unavailable GAVIRIA, SCARLETT L Primary Care Unavailable [place], [place] Primary Care Unavailable ALPA RAM Referring Unavailable ALPA RAM Attending Unavailable ALPA RAM Admitting Unavailable [place], [place] Primary Care Unavailable ALPA RAM Attending Unavailable [place], [place] Primary Care Unavailable ALPA RAM Referring Unavailable ALPA RAM Attending Unavailable [place], [place] Primary Care Unavailable EROS MADRID Referring Unavailable [place], [place] Primary Care Unavailable EROS MADRID Referring Unavailable GAVIRIA, SCARLETT L Primary Care Unavailable ALPA RAM Referring Unavailable ALPA RAM Attending Unavailable ALPA RAM Admitting Unavailable GAVIRIA, SCARLETT L Primary Care Unavailable ALPA RAM Referring Unavailable ALPA RAM Attending Unavailable ALPA RAM Admitting Unavailable GAVIRIA, SCARLETT L Primary Care Unavailable ALPA RAM Referring Unavailable ALPA RAM Attending Unavailable ALPA RAM Admitting Unavailable GAVIRIA, SCARLETT L Primary Care Unavailable ODALYS PINO Referring Unavailable GAVIRIA, SCARLETT L Primary Care Unavailable CHARLES KEMPSSAMA Referring Unavailable GAVIRIA, SCARLETT L Primary Care Unavailable ALPA RAM Referring Unavailable ALPA RAM Attending Unavailable GAVIRIA, SCARLETT L Primary Care Unavailable ODAYLS PINO Attending Unavailable GAVIRIA, SCARLETT L Primary Care Unavailable ANN MARIE OUSSAMA Referring Unavailable WACHARLES MAINSSAMA Attending Unavailable GAVIRIA, SCARLETT L Primary Care Unavailable MONI MANDUJANO Attending Unavailable GAVIRIA, SCARLETT L Primary Care Unavailable MONI MANDUJANO Referring Unavailable GAVIRIA, SCARLETT L Primary Care Unavailable [place] HURTADO Primary Care Unavailable ANGELI AU Referring Unavailable [place] HURTADO Primary Care Unavailable TERESA GOLDBERG Attending Unavailable Allergies Allergy Classification Reported Allergen(s) Allergy Type Date of Onset Reaction(s) Facility (1 source) Aspirin Drug Allergy 07-18-2019 [facility] (1 source) Ibuprofen Drug Allergy 07-18-2019 [facility] Medications Current Medications Medication Drug Class(es) Dates Sig (Normalized) Sig (Original) 8 hr acetaminophen 650 mg extended release oral tablet (20 sources) Start: 06-20-2023 End: 07-06-2024 acetaminophen 650 mg CR tablet Every 12 hours 06/20/2023 Active Comment on above: Every 12 hours 200 actuat albuterol 0.09 mg/actuat dry powder inhaler (20 sources) beta2-Adrenergic Agonist Start: 06-20-2023 take 90 ug by inhalation every four to six hours as needed Albuterol Sulfate (Proair Respiclick) 90 mcg/actuation aerosol powdr breath activated Active 1 INH INHALATION EVERY 4-6 HOURS as needed June 20, 2023 1:00am Start: 01-11-2017 End: 07-06-2024 take 1 puff(s) by inhalation every six hours as needed Albuterol Sulfate (Proair Hfa) 90 mcg/actuation Hfa Aerosol Inhaler Discontinued 2 PUFF INHALATION Q6H as needed for Shortness Of Breath January 11, 2017 12:00am July 06, 2024 2:02pm Start: 03-14-2012 take 2 puff(s) by in [...] tablet (20 sources) Xanthine Oxidase Inhibitor Start: 05-17-19 take 1 tablet by mouth once daily allopurinol (ZYLOPRIM) 100 mg tablet Take 100 mg by mouth once daily. 5 05/17/2018 Active Comment on above: Take 100 mg by mouth once daily. amiodarone hydrochloride 200 mg oral tablet (20 sources) Antiarrhythmic Start: 10-20-19 take 1 tablet by mouth once daily amiodarone (PACERONE) 200 mg tablet Indications: Persistent atrial fibrillation (HCC) Take 1 tablet by mouth once daily. 90 tablet 3 10/19/2024 Active Start: 05-22-2024 End: 10-19-2024 amiodarone (PACERONE) 200 mg tablet Indications: Persistent atrial fibrillation (HCC) 200 mg 3 times daily for 1 week followed by 200 mg 2 times daily for 3 weeks followed by 200 mg daily thereafter 200 tablet 05/22/2024 10/19/2024 Discontinued Start: 05-22-2024 amiodarone (Pa cerone) 200 MG tablet Take by mouth 1 (one) time each day at the same time 05/22/2024 Active amLODIPine 5 mg oral tablet (20 sources) Dihydropyridine Calcium Channel Waylon Start: 06-29-2024 End: 10-02-2024 take 1 tablet by mouth once daily amLODIPine (NORVASC) 5 mg tablet Take 1 tablet by mouth once daily. 90 tablet 2 10/02/2024 Active amoxicillin 500 mg oral capsule (20 sources) Penicillin-class Antibacterial Start: 07-06-2024 take 1 capsule by mouth every twelve hours Amoxicillin 500 mg capsule Active 500 MG PO Every 12 hours July 06, 2024 1:00am Start: 01-11-2017 End: 01-11-2017 Amoxicillin 500 mg capsule D iscontinued January 11, 2017 12:00am January 11, 2017 11:05am Start: 01-11-2017 End: 01-11-2017 Amoxicillin Discontinued Sep tember 2016 11:00pm January 11, 2017 10:05am amoxicillin (JONNIE XIL) 500 mg capsule TAKE 2 CAPSULES BY MOUTH now then TAKE 1 CAPSULE BY MOUTH EVERY 6 HOURS UNTIL GONE Active Comment on above: TAKE 2 CAPSULES BY M OUTH now then TAKE 1 CAPSULE BY MOUTH EVERY 6 HOURS UNTIL GONE apixaban 5 mg oral tablet (20 sources) Factor Xa Inhibitor Start: 08-22-2024 take 1 tablet by mouth twice daily apixaban (ELIQUIS) 5 mg tab(s) Take 1 tablet by mouth two times a day. 180 tablet 1 08/22/2024 Active Start: 06-13-2024 take 1 tablet by bebe th twice daily apixaban (ELIQUIS) 5 mg tab(s) Take 1 tablet by mouth two times a day. 120 tablet 06/13/2024 Active Start: 07-15-2022 Eliquis Refill s(s) 0 Start Date: 07/15/22 Status: Ordered Start: 11-10-2015 End: 08-31-2023 take 1 tablet by mouth twice daily Apixaban (Eliquis) 5 mg tablet Discontinued 5 MG PO Twice daily January 11, 2017 12:00am June 20, 2023 3:11pm Comment on above: Take 1 tablet by bebe th twice daily. {1 (Ascorbic Acid 7540 MG / POLYETHYLENE GLYCOL 3350 53537 MG / Potassium Chloride 1200 MG / Sodium Ascorbate 40059 MG / Sodium Chloride 3200 MG Powder for Oral Solution) / 1 (POLYETHYLENE GLYCOL 3350 866361 MG / Potassium Chloride 1000 MG / Sodium Chlori (1 source) Osmotic Laxative, Vitamin C Start: 07-16-19 take 1 dose by mouth once Plenvu oral powder for reconstitution See Instructions, 1 EA, Refill(s) 0, samples given to patient (Rx), Per physician's instructions. Prior to colonoscopy. Ordered as instructed by Dr. Sanabria. Start Date: 07/15/21 Status: Ordered aspirin 81 mg chewable tablet (20 sources) Platelet Aggregation Inhibitor, Nonsteroidal Anti-inflammatory Drug Start: 06-20-19 End: 07-07-19 take 1 tablet by mouth once daily Aspirin 81 mg tablet,chewable Discontinued 81 MG PO Daily June 20, 2023 1:00am July 06, 2024 2:03pm Start: 07-15-2022 aspirin Refill s(s) 0 Start Date: 07/15/22 Status: Ordered Repeat number: 1 Start: 07-15-2022 aspirin Refill s(s) 0 Start Date: 07/15/22 Status: Ordered Start: 05-19-2022 End: 10-19-2024 take 1 tablet by mouth once daily aspirin, enteric coated (ECOTRIN LOW STRENGTH) 81 mg EC tablet Take 1 tablet by mouth once daily. 30 tablet 5 05/19/2022 10/19/2024 Discontinued Comment on above: Take 1 tablet by bebe th once daily. atenolol 50 mg oral tablet (20 sources) beta-Adrenergic Waylon Start: 0 End: take 50 mg by mouth once daily atenolol 50 mg, Oral, Daily, Refills(s) 0, High blood pressure Start Date: 06/06/19 Status: Ordered Repeat number: 1 Comment on above: Take 1 tablet by bebe th once daily. atorvastatin 40 mg oral tablet (20 sources) HMG-CoA Reductase Inhibitor Start: take 1 tablet by mouth once daily atorvastatin (LIPITOR) 40 mg tablet Indications: Pain of both shoulder joints , Rotator cuff tear arthropathy of both shoulders Take 1 tablet by mouth once daily. Need appointment for future refills 90 tablet 3 07/31/2024 Active Start: 05-06-2020 End: 06-02-2024 take 1 tablet by mouth once daily Lipitor 40 mg Tab 40 mg = 1 tab(s), Oral, Daily, Refills(s) 0, High cholesterol Start Date: 05/06/20 Status: Ordered Repeat number: 1 Start: 01-11-2017 take 1 tablet by bebe th once daily at bedtime Atorvastatin 10 mg tablet Active 10 MG PO Daily at bedtime January 11, 2017 12:00am Comment on above: TAKE 1 TABLET BY BEBE TH ONCE DAILY Take 1 tablet by bebe th once daily. bisoprolol fumarate 5 mg oral tablet (20 sources) beta-Adrenergic Waylon Start: 05-18-2024 take 1 tablet by mouth twice daily bisoprolol (ZEBETA) 5 mg tablet Take 1 tablet by mouth two times a day. 180 tablet 3 05/18/2024 Active take 1 tablet by mouth once gaby y bisoprolol (Zebeta) 5 MG tablet Take 5 mg by mouth 1 (one) time each day at the same time Active 60 actuat budesonide 0.16 mg/actuat / formoterol [...] 0, Prophylaxis Start Date: 07/27/10 Status: Ordered Repeat number: 1 CALCIUM CITRATE PO Calcium Citrate / Vitamin D (20 sources) Start: 11-21-2018 take 1 tablet by mouth once daily calcium-vitamin D 1 tab, Oral, Daily, Refill(s) 0, Prophylaxis Start Date: 11/21/18 Status: Ordered Repeat number: 1 Start: 11-21-2018 take 1 tablet by bebe th once daily calcium-vitamin D 1 tab, Oral, [...] 0, Prophylaxis Start Date: 11/21/18 Status: Ordered Repeat number: 1 Start: 11-21-2018 take 1 capsule by [facility] once daily Chondroitin-Glucosamine 1 cap(s), Oral, Daily, Refill(s) 0, Prophylaxis Start Date: 11/21/18 Status: Ordered Start: 01-11-2017 End: 06-20-2023 take 1 tablet by mouth twice daily Glucosamine-Chondroitin 500-400 mg Table t Discontinued 1 TAB PO Twice daily January 11, 2017 12:00am June 20, 2023 3:14pm Start: 09-01-2011 take 1 capsule by [facility] twice daily Jgsagnuxvxm-Gxshwixsc-Ukh C-Mn 500-400 m g cap Take 1 capsule by mouth twice daily. 0 09/01/2011 Active Comment on above: Take 1 capsule by [facility] twice daily. CoQ10 (20 sources) Start: 03-13-2015 take 100 mg by mouth three times daily CoQ10 100 mg, Oral, TID, Refills(s) 0, Prophylaxis Start Date: 03/13/15 Status: Ordered Repeat number: 1 Start: 03-13-2015 take 100 mg by mouth three times [...] capsule (20 sources) Antiarrhythmic Start: 09-25-2022 End: 07-06-2024 Dofetilide 500 mcg capsule Discontinued 500 MCG PO June 20, 2023 1:00am July 06, 2024 2:10pm Start: 03-31-2020 End: 09-21-2022 take 1 capsule by mouth twice daily dofetilide (TIKOSYN) 500 mcg capsule Take 1 capsule by mouth twice daily. 180 capsule 3 07/08/2021 09/21/2022 Discontinued Start: 03-31-2020 take 1 capsule by [facility] twice daily Tikosyn 500 mcg oral capsule 500 mcg = 1 cap(s), Oral, BID, Refills(s) 0, Irregular heartbeat Start Date: 03/31/20 Status: Ordered Repeat number: 1 Comment on above: Take 1 capsule by [facility] twice daily. duloxetine 30 mg Cap-DR (20 sources) Start: 11-27-2018 take 1 capsule by mouth once daily duloxetine 30 mg Cap-DR 30 mg, Oral, Daily, Refills(s) 0, Depression Start Date: 11/27/18 Status: Ordered Repeat number: 1 Start: 11-27-2018 take 1 capsule by [facility] once daily duloxetine 30 mg Cap-DR 30 mg, Oral, Daily, Refills(s) 0, Depression Start Date: 11/27/18 Status: Ordered escitalopram 10 mg oral tablet (20 sources) Serotonin Reuptake Inhibitor Start: 08-23-2024 take 1 tablet by mouth once daily escitalopram 10 mg Tab TAKE 1 TABLET BY MOUTH DAILY Start Date: 08/23/24 Status: Ordered Repeat number: 1 Start: 05-23-2024 take 1 tablet by [facility] once daily escitalopram oxalate (LEXAPRO) 5 mg tablet Take 5 mg by mouth once daily. 05/23/2024 Active Start: 01-11-2017 End: 07-10-2019 take 1 tablet by mouth once daily Escitalopram Oxalate 20 mg tablet Discontinued 20 MG PO Daily January 11, 2017 12:00am July 10, 2019 4:54pm fenofibrate 160 mg oral tablet (20 sources) Peroxisome Proliferator Receptor alpha Agonist Start: 11-27-2018 Fenofibrate (LOFIBRA) 160 mg tablet TAKE 1 TABLET ONCE DAILY 90 tablet 3 09/07/2021 Active Comment on above: TAKE 1 TABLET ONCE D AILY flecainide acetate 100 mg oral tablet (3 sources) Antiarrhythmic Start: 07-06-2024 take 1 tablet by mouth every twelve hours Flecainide 100 mg tablet Active 100 MG PO Every 12 hours July 06, 2024 1:00am Start: 04-24-2024 End: 05-11-2024 take 1 tablet by mouth twice daily flecainide (TAMBOCOR) 100 mg tablet Indications: PAF (paroxysmal atrial fibrillation) (HCC) Take 1 tablet by mouth two times a day. 60 tablet 2 04/24/2024 05/11/2024 Discontinued (Course of therapy completed) fluconazole 200 mg oral tablet (12 sources) Azole Antifungal Start: 08-14-2021 fluconazole 2 00 mg Tab 400 mg = 2 tab(s), Oral, Once, Take 400mg x 1 day, then 200mg x 21 days., # 2 tab(s), Refills(s) 0, Pharmacy: [id number], 177, cm, 08/14/21 13:09:00 EDT, Height/Length Dosing, 97.8, kg, 08/14/21 13:09:00 EDT, Weight Dosing Start Date: 08/14/21 Status: Ordered fluticasone propionate 0.05 mg/actuat metered dose nasal spray (20 sources) Corticosteroid Start: 10-24-2022 fluticasone (F lonase) 50 MCG/ACT nasal spray 10/24/2022 Active Start: 10-24-2022 take 2 spray(s) nasa l route once daily fluticasone (Flonase) 50 MCG/ACT nasal spray instill 2 (TWO) sprays IN EACH NOSTRIL DAILY 10/24/2022 Active Start: 11-27-2018 Flonase 1 spra y(s), Nasal, Daily Allergy symptoms, Refill(s) 0, Nasal congestion Start Date: 11/27/18 Status: Ordered Repeat number: 1 Start: 11-27-2018 Flonase 1 spra y(s), Nasal, Daily Allergy symptoms, Refill(s) 0, Nasal congestion Start Date: 11/27/18 Status: Ordered Start: 01-11-2017 Fluticasone Pr opionate 50 mcg/actuation spray,suspension Active 2 PUFF INTRANASAL Twice daily as needed for Nasal Congestion January 11, 2017 12:00am Start: 09-01-2016 take 1 spray(s) nasa l route once daily fluticasone (FLONASE) 50 mcg/actuation nasal spray Use 1 [place] in each nostril once daily. 0 09/01/2016 Active Start: 12-24-2015 fluticasone HF A 44 mcg/inh Inhaler 2 puff(s), Inhalation, BID Allergy symptoms, 10.6 gram, Refill(s) 0, Allergy symptoms Start Date: 12/24/15 Status: Ordered Comment on above: Use 1 [place] in each nostril once daily. Fluticasone Propion-Salmeterol (20 sources) Corticosteroid, beta2-Adrenergic Agonist Start: 06-20-2023 Fluticasone Propion-Salmeterol 100-50 mcg/dose blister with device Active INHALATION June 20, 2023 1:00am Start: 06-20-2023 Fluticasone Pr opion-Salmeterol Active INHALATION June 20, 2023 12:00am Start: 04-24-2023 ADVAIR DISKUS 100-50 mcg/dose inhaler Inhale as instructed two times a day. 04/24/2023 Active Comment on above: Inhale as instructed two times a day. fluticasone HFA 44 mcg/inh Inhaler (20 sources) Start: 12-24-2015 fluticasone HFA 44 mcg/inh Inhaler 2 puff(s), Inhalation, BID Allergy symptoms, 10.6 gram, Refill(s) 0, Allergy symptoms Start Date: 12/24/15 Status: Ordered Quantity: 10.6 Unit: g Repeat number: 1 Start: 12-24-2015 fluticasone HF A 44 mcg/inh Inhaler 2 puff(s), Inhalation, BID Allergy symptoms, 10.6 gram, Refill(s) 0, Allergy symptoms Start Date: 12/24/15 Status: Ordered furosemide 20 mg oral tablet (20 sources) Loop Diuretic Start: 10-10-2024 furosemide (LA SIX) 20 mg tablet Indications: PAF (paroxysmal atrial fibrillation) (HCC) Take 1 tablet by mouth once daily. Can take additional 20 mg as needed for swelling or >2 lb weight gain overnight. 90 tablet 3 10/10/2024 Active Start: 08-22-2024 furosemide (LA SIX) 20 mg tablet Indications: PAF (paroxysmal atrial fibrillation) (HCC) Take 1 tablet by mouth once daily. Can take additional 20 mg as needed for swelling or >2 lb weight gain overnight. 90 tablet 3 08/22/2024 Active Start: 05-22-2024 furosemide 20 mg Tab 40 mg = 2 tab(s), Refills(s) 0 Start Date: 05/22/24 Status: Ordered Repeat number: 1 Start: 10-21-2023 End: 05-16-2024 take 1 tablet by mouth once daily furosemide (Lasix) 20 MG tablet Take 20 mg by mouth Daily 11/09/2023 Active Start: 01-11-2017 End: 10-19-2023 take 1 tablet by mouth once daily furosemide (LASIX) 20 mg tablet Indications: PAF (paroxysmal atrial fibrillation) ([facility]) Take 1 tablet by mouth once daily. 90 tablet 3 11/16/2022 10/19/2023 Discontinued Comment on above: TAKE 1 TABLET ONCE D AILY Take 1 tablet by bebe once daily. gabapentin 300 mg oral capsule (19 sources) Anti-epileptic Agent Start: 06-22-2023 End: 08-29-2023 gabapentin 300 mg Cap Refills(s) 0 Start Date: 06/24/23 Status: Ordered Repeat number: 1 Comment on above: Take 1 capsule by mo [facility] three times a day for 60 days. [...] qpm for 30 day(s) 0 08/09/2022 Active losartan potassium 50 mg oral tablet (20 sources) Angiotensin 2 Receptor Waylon Start: 10-19-2024 take 1 tablet by mouth once daily losartan (COZAAR) 50 mg tablet Take 1 tablet by mouth once daily. 90 tablet 3 10/19/2024 Active Start: 05-25-2024 End: 10-19-2024 take 2 tablets by mouth once daily losartan (COZAAR) 50 mg tablet Take 2 tablets by mouth once daily. 90 tablet 3 05/25/2024 10/19/2024 Discontinued Start: 05-18-2024 End: 05-25-2024 losartan 50 mg Tab Refills(s ) 0 Start Date: 05/22/24 Status: Ordered Repeat number: 1 magnesium oxide 400 mg oral tablet (20 sources) Start: 03-09-2021 take 1 tablet by mouth once daily magnesium oxide (MAG-OX) 400 mg (241.3 mg magnesium) tablet Indications: PAF (paroxysmal atrial fibrillation) ([facility]) Take 1 tablet by mouth once daily. 30 tablet 5 03/09/2021 Active Comment on above: Take 1 tablet by bebe th once daily. methylPREDNISolone 4 mg oral tablet [...] endoscopy., # 1 tab(s), Refills(s) 0, Pharmacy: [id number], 177, cm, 01/26/22 10:33:00 EDT, Height/Length Dosing, 94, kg, 01/26/22 10:33:00 EDT, Weight Dosing Start Date: 01/27/22 Status: Ordered montelukast 10 mg oral tablet (20 sources) Leukotriene Receptor Antagonist Start: 07-10-2019 take 1 tablet by mouth once daily montelukast 10 mg Tab 10 mg = 1 tab(s), Oral, Daily, Refills(s) 0, Allergy symptoms Start Date: 02/05/20 Status: Ordered Repeat number: 1 Comment on above: montelukast 10 mg ta blet Multivitamin-Minerals- Lutein (Multivitamin 50 Plus) Tablet (4 sources) Start: 01-11-2017 Multivitamin-Minerals -Lutein (Multivitamin 50 Plus) Tablet Active 1 TAB PO Daily with lunch January 11, 2017 9:46am Start: 01-11-2017 Multivitamin-M inerals-Lutein (Multivitamin 50 Plus) Tablet Active 1 TAB PO Daily with lunch January 11, 2017 12:00am Start: 01-11-2017 Multivitamin-M inerals-Lutein (Multivitamin 50 Plus) Tablet Active 1 TAB PO Daily with lunch January 10, 2017 11:00pm [place] 7-Yvl-Fww-Fish Oil ([place]-3) 350 mg-235 mg- 90 mg-597 mg Capsule,Delayed Release(Dr/Ec) (4 sources) Start: 01-11-2017 take 1 capsule by mouth twice daily [place] 8-Vbb-Goi-Fish Oil ([place]-3) 350 mg-235 mg- 90 mg-597 mg Capsule,Delayed Release(Dr/Ec) Active 1000 MG PO Twice daily January 11, 2017 9:47am Start: 01-11-2017 take 1 capsule by [facility] twice daily [place] 2-Ndm-Sey-Fish Oil ([place]-3) 350 mg-235 mg- 90 mg-597 mg Capsule,Delayed Release(Dr/Ec) Active 1000 MG PO Twice daily January 11, 2017 12:00am Start: 01-11-2017 take 1 capsule by [facility] twice daily [place] 5-Vzl-Npq-Fish Oil ([place]-3) 350 mg-235 mg- 90 mg-597 mg Capsule,Delayed Release(Dr/Ec) Active 1000 MG PO Twice daily January 10, 2017 11:00pm omega-3 acid ethyl esters (snf) 1000 mg oral capsule (20 sources) Start: 11-21-2018 omega-3 acid e thyl esters (LOVAZA) 1 gram capsule Take 1,000 mg by mouth. 11/21/2018 Active Comment on above: Take 1,000 mg by [facility]. omega-3/dha/epa/fish oil (OMEGA-3 ORAL) (20 sources) omega-3/dha/epa/ fish oil (OMEGA-3 ORAL) Take by mouth once daily. Active omega-3/dha/epa/ fish oil (OMEGA-3 ORAL) Take by mouth. Active omega-3/dha/epa/ fish oil (OMEGA-3 ORAL) Take by mouth. 0 Active Comment on above: Take by mouth. omeprazole 40 mg delayed release oral capsule (20 sources) Proton Pump Inhibitor Start: 01-11-2017 End: 07-06-2024 take 40 mg by mouth once daily in the morning Omeprazole Active 40 MG PO Every morning January 10, 2017 11:00pm Start: 04-29-2011 omeprazole 40 mg Cap-EC 40 mg = 1 cap(s), Oral, Every other day, PRN Control of stomach acid, usually 4-5 times a week, Control of stomach acid Start Date: 04/29/11 Status: Ordered Repeat number: 1 omeprazole (PriL OSEC) [address] capsule Take 20 mg by mouth Daily Active take 2 capsules by m outh once daily omeprazole (PRILOSEC) 20 mg capsule Take 40 mg by mouth once daily. 0 Active Comment on above: Take 40 mg by mouth once daily. Omeprazole 20 mg capsule,delayed release(DR/EC) (1 source) Start: 07-07-19 take 1 capsule by mouth once daily Omeprazole 20 mg capsule,delayed release(DR/EC) Active 20 MG PO Daily July 06, 2024 1:00am omeprazole 40 mg Cap-EC (3 sources) Start: 04-29-20 omeprazole 40 mg Cap-EC 40 mg = 1 cap(s), Oral, Every other day, PRN Control of stomach acid, usually 4-5 times a week, Control of stomach acid Start Date: 04/29/11 Status: Ordered ondansetron 4 mg oral tablet (2 sources) Serotonin-3 Receptor Antagonist Start: 09-26-19 End: 01-24-20 Zofran 4 mg Tab 4 mg = 1 tab(s), Oral, As Directed, PRN Nausea/Vomiting, X 30 day(s), # 30 tab(s), Refills(s) 3, Pharmacy: [id number], 178, cm, 09/25/24 12:28:00 EDT, Height/Length Dosing, 97.4, kg, 09/25/24 12:28:00 EDT, Weight Dosing Start Date: 09/25/24 Stop Date: 01/23/25 Status: Ordered Quantity: 30.0 Unit: tab(s) Repeat number: 4 oxybutynin chloride 5 mg oral tablet (2 [...] to colonoscopy. Ordered as instructed by Dr. Sanabria. Start Date: 07/15/21 Status: Ordered predniSONE 20 mg oral tablet (1 source) Start: 07-07-19 take 1 tablet by mouth twice daily Prednisone 20 mg tablet Active 20 MG PO Twice daily July 06, 2024 1:00am pregabalin 50 mg oral capsule (20 sources) Start: 11-01-19 End: 04-12-20 take 1 capsule by mouth in the morning pregabalin (Lyrica) 50 MG capsule Take 50 mg by mouth in the morning and 50 mg in the evening. 11/01/2023 Active Start: 11-01-2023 take 1 capsule by mo [facility] three times daily pregabalin 50 mg Cap 50 mg = 1 cap(s), Oral, TID, TAKE 1 CAPSULE BY MOUTH AT BEDTIME FOR 3 DAYS, then TAKE 1 CAPSULE IN THE MORNING and ONE CAPSULE at NIGHT FOR 3 DAYS, then INCREASE to ONE CAPSULE THREE TIMES DAILY if tolerating well Start Date: 11/01/23 Status: Ordered Repeat number: 1 Start: 08-29-2023 End: 11-11-2023 pregabalin (LYRICA) 50 [...] sources) Nonergot Dopamine Agonist Start: 08-08-2018 take 1 tablet by mouth once daily at bedtime rOPINIRole (REQUIP) 1 mg tablet Take 1 tablet by mouth daily at bedtime. 08/08/2018 Active Start: 07-01-2016 End: 07-10-2019 take 1 tablet by mouth at bedtime Requip 3 mg Tab 3 mg = 1 tab(s), Oral, Bedtime, Refills(s) 0, Other (see comment) Start Date: 07/01/16 Status: Ordered Repeat number: 1 Comment on above: Take 1 tablet by bebe th daily at bedtime. sildenafil 100 mg oral tablet (20 sources) Phosphodiesterase 5 Inhibitor Start: 01-26-2022 sildenafil (Viagra) 100 MG tablet TAKE 1 TABLET BY MOUTH 1 (ONE) HOUR BEFORE sexual activity 0 07/04/2022 Active Start: 07-13-2021 sildenafil 100 mg Tab 100 mg = 1 tab(s), Oral, As Directed, 1 hour before sexual activity, # 30 tab(s), Refills(s) 5, Pharmacy: [id number], 177, cm, 07/13/21 11:21:00 EDT, Height/Length Dosing, 94, kg, 07/13/21 11:21:00 EDT, Weight Dosing Start Date: 07/13/21 Status: Ordered solifenacin succinate 5 mg oral tablet (17 sources) Cholinergic Muscarinic Antagonist Start: 07-15-2022 solifenacin 5 mg Tab Refills(s) 0 Start Date: 07/15/22 Status: Ordered Start: 07-13-2021 take 1 tablet by bebe th twice daily Vesicare 5 mg Tab 5 mg = 1 tab(s), Oral, BID, # 60 tab(s), Refills(s) 11, Pharmacy: [id number], 177, cm, 07/13/21 11:21:00 EDT, Height/Length Dosing, 94, kg, 07/13/21 11:21:00 EDT, Weight Dosing Start Date: 07/13/21 Status: Ordered spironolactone 25 mg oral tablet (20 sources) Aldosterone Antagonist Start: 06-29-2024 take 1 tablet by mouth once daily spironolactone (ALDACTONE) 25 mg tablet Take 1 tablet by mouth once daily. 180 tablet 1 06/29/2024 Active Start: 06-04-2024 End: 06-20-2024 take 1 tablet by mouth once daily spironolactone (ALDACTONE) 25 mg tablet Take 1 tablet by mouth once daily. 180 tablet 06/04/2024 06/20/2024 Discontinued Start: 05-28-2024 End: 06-04-2024 take 0.5 tablet by mouth once daily spironolactone (ALDACTONE) 25 mg tablet Take 0.5 tablets by mouth once daily. 30 tablet 05/28/2024 06/04/2024 Discontinued (Adjust Sig - Block E-Cancel) Symbicort 80/4.5 inhalation aerosol with adapter (20 sources) Start: 04-21-2021 take 2 puff(s) by inhalation twice daily Symbicort 80/4.5 inhalation aerosol with adapter 2 puff(s), Inhalation, BID, Refill(s) 0, Wheezing Start Date: 04/21/21 Status: Ordered Repeat number: 1 Start: 04-21-2021 take 2 puff(s) by in halation twice daily Symbicort 80/4.5 inhalation aerosol with adapter 2 puff(s), Inhalation, BID, Refill(s) 0, Wheezing Start Date: 04/21/21 Status: Ordered tiZANidine 4 mg oral tablet (20 sources) Central alpha-2 Adrenergic Agonist Start: 07-15-2022 tiZANidine 4 mg Tab Refills(s) 0 Start Date: 07/15/22 Status: Ordered Repeat number: 1 24 hr tolterodine tartrate 4 mg extended release oral capsule (20 sources) Cholinergic Muscarinic Antagonist Start: 10-15-2022 take 1 capsule by mouth every twenty-four hours in the morning tolterodine LA (Detrol LA) 4 MG 24 hr capsule Take 4 mg by mouth in the morning. 10/15/2022 Active Start: 05-27-2022 take 1 capsule by [facility] once daily tolterodine ER (DETROL LA) 4 [...] activity, # 30 tab(s), Refills(s) 3, Pharmacy: [id number], 177, cm, 07/27/22 11:28:00 EDT, Height/Length Dosing, 94, kg, 07/27/22 11:28:00 EDT, Weight Dosing Start Date: 07/27/22 Status: Ordered Quantity: 30.0 Unit: tab(s) Repeat number: 4 Start: 01-26-2022 Levitra 20 mg Tab 20 mg = 1 tab(s), Oral, As Directed, PRN for erectile dysfunction, 1 hour before sexual activity, # 30 tab(s), Refills(s) 3, Pharmacy: [id number], 177, cm, 01/26/22 10:33:00 EDT, Height/Length Dosing, 94, kg, 01/26/22 10:33:00 EDT, Travis... Start Date: 01/26/22 Status: Ordered Completed/Discontinued Medications Medication Drug Class(es) Dates Sig (Normalized) Sig (Original) acetaminophen 325 mg / HYDROcodone bitartrate 5 mg oral tablet (8 sources) Opioid Agonist Start: 09-20-2019 End: 06-20-2023 take 1 tablet by mouth every six hours as needed for pain Hydrocodone-Acetami nophen 5-325 mg tablet Discontinued 1 TAB PO Q6H as needed for pain 26 11September 20, 2019 June 20, 2023 3:14pm Start: 01-11-2017 End: 07-10-2019 take 2 tablets by mouth every four to six hours as needed for pain Hydrocodone-Acetaminophen ([place]) 5-325 mg tablet Discontinued 2 TAB PO EVERY 4-6 HOURS as needed for pain 40 January 11, 2017 12:00am July 10, 2019 4:54pm Benzocaine (1 source) Standardized Chemical Allergen Start: 11-17-2023 End: 11-17-2023 benzocaine 20% (TOPEX) Calcium Carbonate / vitamin D3 (14 sources) End: 05-18-2022 take 1 tablet by mouth twice daily CALCIUM CARBONATE/VITAMIN D3 (CALCIUM + D ORAL) Take 1 tablet by mouth twice daily. 0 05/18/2022 Discontinued take 1 tablet by mouth twice heavenly ly CALCIUM CARBONATE/VITAMIN D3 (CALCIUM + D ORAL) Take 1 tablet by mouth twice daily. 0 Active Comment on above: Take 1 tablet by bebe th twice daily. clonazePAM (6 sources) Benzodiazepine Start: 7 End: 0 take 1.5 mg by mouth once daily Clonazepam Discontinued 1.5 MG PO Daily January 11, 2017 9:18am July 10, 2019 4:53pm Start: 01-11-2017 End: 07-10-2019 take 1.5 mg by mouth once daily Clonazepam 1 mg tablet Discontinued 1.5 MG PO Daily January 11, 2017 12:00am July 10, 2019 4:53pm Start: 01-11-2017 End: 07-10-2019 take 1.5 mg by mouth once daily Clonazepam Discontinued 1.5 MG PO Daily January 10, 2017 11:00pm July 10, 2019 3:53pm clonazePAM (Klon oPIN) 1 MG tablet digoxin 0.25 mg oral tablet (6 sources) Cardiac Glycoside Start: 01-11-2017 End: 07-10-2019 take 1 tablet by mouth once daily Digoxin 250 mcg Tablet Discontinued 250 MCG PO Daily January 11, 2017 12:00am July 10, 2019 4:53pm DULoxetine 60 mg delayed release oral capsule (20 sources) Serotonin and Norepinephrine Reuptake Inhibitor Start: 05-31-2023 End: 10-19-2024 take 1 capsule by mouth once DULoxetine (CYMBALTA) 60 mg capsule Take 1 capsule by mouth every afternoon. 05/31/2023 10/19/2024 Discontinued (Course of therapy completed) Start: 10-20-2022 End: 06-19-2024 take 1 capsule by mouth in the morning DULoxetine (Cymbalta) [address] capsule Take 60 mg by mouth in the morning. 10/20/2022 06/19/2024 Discontinued Start: 11-27-2018 End: 07-06-2024 take 1 capsule by mouth once daily at bedtime Duloxetine 30 mg capsule,delayed release(DR/EC) Discontinued 30 MG PO Daily at bedtime July 10, 2019 12:00am July 06, 2024 2:09pm End: 09-14-2022 take 2 capsules by mouth once daily DULoxetine (CYMBALTA) 30 mg capsule Take 60 mg by mouth once daily. 0 09/14/2022 Discontinued (Other) Comment on above: Take 30 mg by mouth once daily. Take 60 mg by mouth once daily. Take 1 capsule by mo ut every afternoon. 1 ml fentaNYL 0.05 mg/ml injection (1 source) Opioid Agonist Start: 11-17-2023 End: 11-17-2023 fentaNYL 50 mcg/mL injection (SUBLIMAZE) ferrous sulfate 325 mg oral tablet (20 sources) Start: 01-11-2017 End: 06-20-2023 take 325 mg by mouth once daily ferrous sulfate 325 mg, Oral, Daily, Refills(s) 0, Prophylaxis Start Date: 11/21/18 Status: Ordered Start: 09-01-2016 End: 06-20-2023 take 1 tablet by mouth once daily at lunch Ferrous Sulfate 325 mg (65 mg iron) Tablet Discontinued 1 TAB PO Daily with lunch January 11, 2017 12:00am June 20, 2023 3:12pm Comment on above: Take 1 tablet by bebe daily with breakfast. 30 actuat fluticasone furoate 0.1 mg/actuat / vilanterol 0.025 mg/actuat dry powder inhaler (20 sources) Corticosteroid, beta2-Adrenergic Agonist Start: 07-10-19 End: 06-20-19 24 take 1 puff(s) by inhalation once daily in the morning Fluticasone Furoate-Vilanterol (Breo Ellipta) 100-25 mcg/dose blister with device Discontinued 1 PUFF INHALATION Every morning July 10, 2019 12:00am June 20, 2023 3:13pm Start: 11-27-2018 End: 04-13-2022 fluticasone-vilanterol (BREO ELLIPTA) 100-25 mcg/dose inhaler Inhalation, Daily, Refill(s) 0, Asthma 0 11/27/2018 04/13/2022 Discontinued take 1 puff(s) by mo [facility] once daily fluticasone-vilanterol (BREO ELLIPTA) 100-25 mcg/dose inhaler INHALE 1 PUFF BY MOUTH DAILY Active Fluticasone Furo ate-Vilanterol 100-25 MCG/ACT aerosol powder Active End: 04-13-2022 fluticasone-vilanterol (BREO ELLIPTA) 100-25 mcg/dose inhaler Inhale 1 Inhalation as instructed once daily. 0 04/13/2022 Discontinued Comment on above: Inhale 1 Inhalation as instructed once daily. Inhalation, Daily, Refill(s) 0, Asthma INHALE 1 PUFF BY BEBE TH DAILY Glucosamine-Chondroi t-Vit C-Mn (GLUCOSAMINE CHONDROITIN MAXSTR) 500-400 mg ORAL Cap (1 source) Start: 012 take 1 capsule by mouth twice daily Glucosamine-Chondroit -Vit C-Mn (GLUCOSAMINE CHONDROITIN MAXSTR) 500-400 mg ORAL Cap Take 1 capsule by mouth twice daily. 0 09/01/2011 Active Comment on above: Take 1 capsule by mo [facility] twice daily. iv contrast (will be provided with radiology test) (1 source) Start: End: inject 1 dose intravenously once iv contrast (will be provided with radiology test) Indications: Aortic dilatation (HCC) CTA Chest. No IV access, insert saline lock prior to the sedation, infusion, injection for imaging exam. Discontinue saline lock post exam. If Pt. has a central line or IVAD, may access for administration according to line specific nursing protocol. Once exam is complete flush line and de-access according to line specific nursing protocol in the CT contrast administration guidelines link. 1 Each 05/18/2024 05/19/2024 lidocaine hydrochloride 0.02 mg/mg topical gel (1 source) Antiarrhythmic, Amide Local Anesthetic Start: End: lidocaine urojet 2 % topical gel (GLYDO) loratadine 10 mg oral tablet (20 sources) Start: 017 End: take 1 tablet by mouth once daily as needed Loratadine (Claritin) 10 mg Tablet Discontinued 10 MG PO Daily as needed for Allergy Symptoms January 11, 2017 12:00am June 20, 2023 3:14pm End: 06-22-2023 take 1 tablet by mouth once daily LORATADINE (CLARITIN ORAL) Take 1 tablet by mouth once daily. 06/22/2023 Discontinued (Course of therapy completed) End: 06-22-2023 take 1 tablet by mouth once daily LORATADINE (CLARITIN ORAL) Take 1 tablet by mouth once daily. 0 06/22/2023 Discontinued (Course of therapy completed) take 1 tablet by bebe once daily LORATADINE (CLARITIN ORAL) Take 1 tablet by mouth once daily. 0 Suspended take 1 tablet by bebe th once daily LORATADINE (CLARITIN ORAL) Take 1 tablet by mouth once daily. 0 Active Comment on above: Take 1 tablet by bebe once daily. Magnesium (4 sources) Start: 01-11-2017 End: 07-10-2019 take 250 mg by mouth once daily Magnesium Discontinued 250 MG PO Daily January 11, 2017 9:31am July 10, 2019 4:55pm Start: 01-11-2017 End: 07-10-2019 take 1 tablet by mouth once daily Magnesium 250 mg Tablet Discontinued 250 MG PO Daily January 11, 2017 12:00am July 10, 2019 4:55pm Start: 01-11-2017 End: 07-10-2019 take 250 mg by mouth once daily Magnesium Discontinued 250 MG PO Daily January 10, 2017 11:00pm July 10, 2019 3:55pm magnesium sulfate 225 MG / potassium chloride 188 MG / sodium sulfate 1479 MG Oral Tablet [Sutab] (2 sources) Start: 09-25-2024 take 1 tablet by mouth once Sutab oral tablet See Instructions, 1 EA, Refill(s) 0, Please follow instructions per packaging and physician's handout, [id number], 178, cm, 09/25/24 12:28:00 EDT, Height/Length Dosing, 97.4, kg, 09/25/24 12:28:00 EDT, Weight Dosing Start Date: 09/25/24 Status: Ordered Quantity: 1.0 Unit: EA Repeat number: 1 Indications: Melena; Personal history of colon polyps, unspecified; Iron deficiency anemia secondary to blood loss (chronic); meloxicam 15 mg oral tablet (7 sources) Nonsteroidal Anti-inflammatory Drug Start: 02-23-2023 End: 06-22-2023 take 1 tablet by mouth once meloxicam (MOBIC) 15 mg tablet Take 1 tablet by mouth every afternoon. 02/23/2023 06/22/2023 Discontinued (Course of therapy completed) Comment on above: Take 1 tablet by bebe th every afternoon. metoprolol tartrate 100 mg oral tablet (4 sources) beta-Adrenergic [place] Start: 01-11-2017 End: 07-10-2019 take 1 tablet by mouth twice daily Metoprolol Tartrate 100 mg tablet Discontinued 100 MG PO Twice daily January 11, 2017 12:00am July 10, 2019 4:55pm 5 ml midazolam 1 mg/ml injection (1 source) Benzodiazepine Start: 11-17-2023 End: 11-17-2023 midazolam (PF) injection (VERSED) Efhxs-1-ECC-EPA-F julio c Oil (FISH OIL) 1,000 mg (120 mg-180 mg) cap (5 sources) take 1 capsule by mouth twice daily Tgzzm-3-ARP-EPA-Fis h Oil (FISH OIL) 1,000 mg (120 mg-180 mg) cap Take 2 g by mouth twice daily. 0 Active Comment on above: Take 2 g by mouth tw ice daily. Jzeoa-6-MKK-EPA-F julio c Oil 1,000 mg (120 mg-180 mg) cap (20 sources) End: 06-22-2023 take 1 capsule by mouth twice daily Wkitc-4-QOZ-EPA-Fis h Oil 1,000 mg (120 mg-180 mg) cap Take 2 g by mouth twice daily. 06/22/2023 Discontinued (Course of therapy completed) End: 06-22-2023 take 1 capsule by mouth twice daily Yxhxe-8-IKS-EPA-Fish Oil 1,000 mg (120 mg-180 mg) cap Take 2 g by mouth twice daily. 0 06/22/2023 Discontinued (Course of therapy completed) take 1 capsule by mo ut twice daily Ejlww-8-BHN-EPA-Fish Oil 1,000 mg (120 mg-180 mg) cap Take 2 g by mouth twice daily. 0 Suspended take 1 capsule by mo uth twice daily Hzvub-6-OAY-EPA-Fish Oil 1,000 mg (120 mg-180 mg) cap [...] Problem Classification Problem Date Documented Date Episodic/Chronic Abdominal pain (20 sources) Flank pain; Translations: [Unspecified abdominal pain] Onset: 2 Resolved: 3 11-27-2019 Episodic Acquired foot deformities (3 sources) Tailor's bunion of right foot; Translations: [Bunionette of right foot] 06-19-2024 Episodic Administrative/social admission (3 sources) Repeated prescription; Translations: [Encounter for issue of repeat prescription] Episodic Aortic; peripheral; and visceral artery aneurysms (6 sources) Dilatation of aorta; Translations: [Aortic ectasia, unspecified site] Onset: 5 05-18-2024 Chronic Cancer of bone and connective tissue (20 sources) Malignant melanoma of trunk 11-10-2015 Chronic Comment on above: Left breast Cardiac dysrhythmias (20 sources) Paroxysmal atrial fibrillation; Translations: [Paroxysmal atrial fibrillation] Onset: 9 04-27-2021 Chronic Chronic obstructive pulmonary disease and bronchiectasis (20 sources) Chronic obstructive lung disease; Translations: [Obstruction of lower respiratory tract] Onset: 2 Resolved: 4 11-10-2015 Chronic Conduction disorders (20 sources) Left bundle branch block; Translations: [Left bundle-branch block, unspecified] Onset: 5 05-11-2024 Chronic Congestive heart failure; nonhypertensive (20 sources) Acute on chronic diastolic heart failure; Translations: [Acute on chronic diastolic (congestive) heart failure] Onset: 6 Resolved: 4 10-31-2015 Chronic Coronary atherosclerosis and other heart disease (20 sources) Coronary arteriosclerosis; Translations: [Atherosclerotic heart disease of [place] coronary artery without angina pectoris] Onset: 5 11-10-2015 Chronic Deficiency and other anemia (4 sources) Anemia due to chronic blood loss; Translations: [Iron deficiency anemia secondary to blood loss (chronic)] Onset: 2 Chronic Deficiency and other anemia (20 sources) Anemia due to blood loss; Translations: [Iron deficiency anemia secondary to blood loss (chronic)] Onset: 3 Resolved: 3 01-06-2022 Chronic Deficiency and other anemia (20 sources) Anemia; Translations: [Anemia, unspecified] Onset: 2 Resolved: 4 Episodic Deficiency and other anemia (2 sources) Iron deficiency anemia; Translations: [Iron deficiency anemia, unspecified] Episodic Disorders of lipid metabolism (20 sources) Hypercholesterolemia; Translations: [Hyperlipidemia] Onset: 3 07-13-2013 Chronic Esophageal disorders (20 sources) Gastroesophageal [...] sources) Internal hemorrhoids; Translations: [Hemorrhoids] 01-15-2021 Episodic Hyperplasia of prostate (20 sources) Benign prostatic hypertrophy with outflow obstruction; Translations: [Large prostate ] Onset: 2 Resolved: 3 11-27-2018 Chronic Joint disorders and dislocations; trauma-related (7 sources) Traumatic dislocation of joint of foot; Translations: [Dislocation of tarsometatarsal joint of left foot, initial encounter] 06-11-2024 Episodic Melanomas of skin (20 sources) Malignant melanoma; Translations: [Malignant melanoma of skin, unspecified] Onset: 6 04-27-2021 Chronic Melanomas of skin (4 sources) History of malignant melanoma of the skin; Translations: [Personal history of malignant melanoma of skin] 02-16-2024 Episodic Mood disorders (20 sources) Depression; Translations: [Depressive disorder] Onset: 2 Resolved: 4 11-10-2015 Chronic Mycoses (20 sources) Candidiasis of the esophagus; Translations: [Candidal esophagitis] Onset: 2 08-14-2021 Episodic Nausea and vomiting (3 sources) Nausea; Translations: [Nausea] Onset: 5 Episodic Neoplasms of unspecified nature or uncertain behavior (2 sources) Neoplastic disease; Translations: [Neoplasm of unspecified behavior of bone, soft tissue, and skin] 08-16-2024 Episodic Nonspecific chest pain (8 sources) Chest pain, unspecified; Translations: [Atypical chest pain] Onset: 2 Episodic Osteoarthritis (20 sources) Arthritis; Translations: [Unspecified osteoarthritis, unspecified site] Onset: 6 Resolved: 3 11-10-2015 Chronic Osteoporosis (2 sources) Age-related osteoporosis without current pathological fracture; Translations: [Senile osteoporosis] 06-20-2023 Chronic Other acquired deformities (20 sources) Disorder of shoulder; Translations: [Contracture, unspecified shoulder] Onset: 6 09-08-2016 Chronic Other acquired deformities (4 sources) Lumbar spondylolisthesis; Translations: [Spondylolisthesis, lumbar region] 06-20-2023 Episodic Other acquired deformities (2 sources) Spondylolisthesis, lumbar region; Translations: [Acquired spondylolisthesis] 06-20-2023 Episodic Other aftercare (20 sources) Patient encounter status; Translations: [Encounter for therapeutic drug level monitoring] Onset: 9 09-06-2018 Episodic Other aftercare (3 sources) Other [facility] (current) drug therapy; Translations: [OTH CORRECTION CURRENT DRUG THERAPY] Onset: 9 Episodic Other aftercare (2 sources) [facility] (current) use of anticoagulants; Translations: [SENIOR ELECTRICAL ENGINEER CURRNT USE ANTICOAGULANTS] Onset: 2 Episodic Other aftercare (3 sources) Drug therapy finding; Translations: [Other [facility] (current) drug therapy] 09-10-2024 Episodic Other aftercare (3 sources) Long-term current use of anticoagulant; Translations: [[facility] (current) use of anticoagulants] Onset: 5 Episodic Other and ill-defined heart disease (20 sources) Left atrial dilatation 11-10-2015 Chronic Other and unspecified benign neoplasm (20 sources) History of polyp of colon; Translations: [Personal history of colonic polyps] Onset: 2 05-30-2019 Episodic Other and unspecified benign neoplasm (20 sources) Polyp of colon; Translations: [Polyp of colon] Onset: 3 Resolved: 3 10-02-2020 Episodic Other circulatory disease (3 sources) Presence [...] Onset: 3 Episodic Other connective tissue disease (5 sources) Pain of toe of left foot; Translations: [Pain in left toe(s)] 06-14-2023 Episodic Other connective tissue disease (4 sources) Pain of toe of right foot; Translations: [Pain in right toe(s)] 06-14-2023 Episodic Other connective tissue disease (4 sources) Enthesopathy of lower limb; Translations: [Other enthesopathy of right foot and ankle] 01-17-2024 Episodic Other connective tissue disease (4 sources) Pain in left foot; Translations: [Pain in left foot] 01-17-2024 Episodic Other diseases of bladder and urethra (1 source) Detrusor overactivity; Translations: [Overactive bladder] Onset: 5 Chronic Other diseases of bladder and urethra (6 sources) Overactive bladder 05-22-2024 Chronic Other diseases of kidney and ureters (1 source) Urinary tract obstruction; Translations: [Other obstructive and reflux uropathy] Onset: 2 Episodic Other gastrointestinal disorders (20 sources) Ulceration of intestine; Translations: [Ulcer of intestine] Onset: 3 Resolved: 3 02-17-2022 Episodic Other gastrointestinal disorders (3 sources) Diarrhea; Translations: [Diarrhea, unspecified] Onset: 5 Episodic Other hereditary and degenerative nervous system conditions (1 source) Restless legs syndrome; Translations: [RESTLESS LEGS SYNDROME] Onset: 2 Chronic Other hereditary and degenerative nervous system conditions (20 sources) Restless legs; Translations: [Restless legs syndrome] 01-26-2024 Chronic Other lower respiratory disease (3 sources) Dyspnea on exertion; Translations: [Other forms of dyspnea] 06-13-2023 Episodic Other male genital disorders (20 sources) Impotence 11-27-2019 Chronic Other male genital disorders (6 sources) Male erectile dysfunction, unspecified; Translations: [Erectile dysfunction] Onset: 2 Chronic Other nervous system disorders (20 sources) Carpal tunnel syndrome; Translations: [Carpal tunnel syndrome, unspecified upper limb] 03-13-2015 Chronic Other nervous system disorders (20 sources) Disorder of right median nerve; Translations: [...] right shoulder] Episodic Other non-traumatic joint disorders (17 sources) Arthralgia of the upper arm; Translations: [Pain in unspecified elbow] 01-26-2024 Episodic Other non-traumatic joint disorders (2 sources) Pain in left wrist; Translations: [Pain in left wrist] Onset: 4 Episodic Other non-traumatic joint disorders (9 sources) Pain in upper arm; Translations: [Pain in unspecified elbow] 01-26-2024 Episodic Other nutritional; endocrine; and metabolic disorders [...] [PSA]] Onset: 2 Resolved: 3 10-28-2018 Episodic Other skin disorders (4 sources) Seborrheic keratosis; Translations: [Other seborrheic keratosis] 02-16-2024 Episodic Other skin disorders (4 sources) Actinic keratosis; Translations: [Actinic keratosis] 02-16-2024 Episodic Other skin disorders (4 sources) Lentiginosis; Translations: [Other melanin hyperpigmentation] 02-16-2024 Episodic Other skin disorders (2 sources) Bacterial folliculitis; Translations: [Other specified follicular disorders] 02-16-2024 Episodic Other skin disorders (2 sources) Inflamed seborrheic keratosis; Translations: [Inflamed seborrheic keratosis] 08-16-2024 Episodic Cassie-; endo-; and myocarditis; cardiomyopathy (except that caused by tuberculosis or sexually transmitted disease) (20 sources) Dilated cardiomyopathy; Translations: [Dilated cardiomyopathy] Onset: 5 05-18-2024 Chronic Residual codes; unclassified (20 sources) Sleep apnea 07-01-2016 Chronic Comment on above: uses CPap Residual codes; unclassified (20 sources) Obstructive sleep apnea syndrome; Translations: [Obstructive sleep apnea (adult) (pediatric)] 01-26-2024 Chronic Residual codes; unclassified (20 sources) H/O: anticoagulant therapy 02-20-2019 Episodic Residual codes; unclassified (20 sources) Current drinker; Translations: [Alcohol use] Onset: 3 Resolved: 3 09-01-2011 Episodic Residual codes; unclassified (20 sources) Insomnia; Translations: [Insomnia, unspecified] 01-26-2024 Episodic Residual codes; unclassified (1 source) Failed encounter; Translations: [No-show for appointment] 09-23-2024 Episodic Screening and history of mental health [...] region; Translations: [Spondylolisthesis, lumbar region] Onset: 4 Unclassified (4 sources) Other persistent atrial fibrillation; Translations: [Persistent atrial fibrillation (HCC)] Onset: 0 Unclassified (4 sources) Drug therapy finding 09-10-2024 Unclassified (1 source) Obesity, Class I, BMI 30-34.9; Translations: [Obesity, Class I, BMI 30-34.9] Onset: 8 Unclassified (1 source) No-show for appointment; Translations: [No-show for appointment] Onset: 5 Viral infection (20 sources) Measles; Translations: [Mumps] Onset: 3 Resolved: 3 03-13-2015 Episodic Past or Other Problems Problem Classification Problem Date Documented Da te Episodic/Chronic Acute and unspecified renal failure (1 source) Acute kidney failure, unspecified; Translations: [ACUTE KIDNEY FAILURE UNSPECIFIED] Onset: 01-12-2022 Episodic Acute posthemorrhagic anemia (1 source) Acute posthemorrhagic anemia; Translations: [ACUTE POSTHEMORRHAGIC ANEMIA] Onset: 01-12-2022 Episodic Alcohol-related disorders (9 sources) Current drinker; Translations: [Alcohol use] Onset: 01-26-2023 Resolved: 01-26-2023 01-26-2024 Chronic Conditions associated with dizziness or vertigo (1 source) Dizziness and giddiness; Translations: [DIZZINESS AND GIDDINESS] Onset: 01-12-2022 Episodic Deficiency and other anemia (2 sources) Anemia, unspecified; Translations: [ANEMIA UNSPECIFIED] Onset: 12-20-2021 Episodic Fluid and electrolyte disorders (1 source) Dehydration; Translations: [DEHYDRATION] Onset: 01-12-2022 Episodic Gastritis and duodenitis (1 source) Gastritis, unspecified, without bleeding; Translations: [GASTRITIS UNS WITHOUT BLEEDING] Onset: 01-12-2022 Episodic Gastrointestinal hemorrhage (20 sources) Melena; Translations: [Melena] Onset: 01-06-2022 Episodic Gout and other crystal arthropathies (20 sources) Primary gout; 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, left wrist] Onset: 01-26-2023 Resolved: 01-26-2023 01-26-2023 Chronic Other acquired deformities (20 sources) Contracture of joint of left ankle; Translations: [Contracture, left ankle] Onset: 01-26-2023 Resolved: 01-26-2023 01-26-2023 Chronic Other acquired deformities (20 sources) Deformity of metatarsal; Translations: [Unspecified acquired deformity of unspecified lower leg] Onset: 01-26-2023 Resolved: 01-26-2023 01-26-2023 Episodic Other aftercare (20 sources) Long-term current use of drug therapy; Translations: [Encounter for therapeutic drug level monitoring] Onset: 09-06-2018 09-06-2018 Episodic Other aftercare (1 source) Encounter for therapeutic drug level monitoring; Translations: [Visit for monitoring Tikosyn therapy] Onset: 09-06-2018 Episodic Other and unspecified benign neoplasm (1 [...] musculoskeletal system] Onset: 09-21-2016 09-21-2016 Episodic Other lower respiratory disease (1 source) Shortness of breath; Translations: [SHORTNESS OF BREATH] Onset: 01-12-2022 Episodic Other non-traumatic joint disorders (20 sources) Shoulder stiff; Translations: [Stiffness of unspecified shoulder, not elsewhere classified] Onset: 08-20-2015 08-20-2015 Episodic Other non-traumatic joint disorders (20 sources) Shoulder pain; Translations: [Pain in right shoulder] Onset: 09-21-2016 09-21-2016 Episodic Other non-traumatic joint disorders (20 sources) Pain in right shoulder; Translations: [Pain in joint, shoulder region] Onset: 09-21-2016 09-21-2016 Episodic Residual codes; unclassified (1 source) Personal [...] [UTI SITE NOT SPECIFIED] Onset: 01-12-2022 Episodic Results Test Name Value Interpretation Reference Range Facility CNOVon 10-19-2024 CNOV Office Visit (CAEPAV ) IRENA PERAZA ([id number]) 1945 M Date Time Provider Department 10/19/24 3:30 PM TERESA GOLDBERG CAEPSUZE During your visit today, we recorded the following information about you: Pulse Blood pressure Weight Height 82/minute 118/60 93.4 kg 1.778 m Teresa Goldberg APRN.CASHIERS SUPERVISOR 10/19/2024 6:02 PM [facility] [place] Misty Henning Department of Cardiovascular Medicine SECTION OF CARDIAC PACING and ELECTROPHYSIOLOGY OUTPATIENT VISIT DATE October 19, 2024 OUTPATIENT VISIT TYPE ESTABLISHED PRIMARY CARE PHYSICIAN: Ny Hurtado [address] [place] [address] [address] [place] [address] CHIEF COMPLAINT: follow up arrhythmia management HISTORY OF PRESENT ILLNESS: Mr. Peraza is a 79 year old male who presents today for evaluated by Dr. Pino, Dr. Au, Dr. 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 He states uses [employer] mobile to monitor arrhythmia, around August 09, 2024, when he converted to NSR, has been compliant with medications, wants to sleep all the time, no energy, has been feeling this way for one year, his psychiatrist changed his [...] CARDIOVERSION 11/14/15 CATHETER, ABLATION A-Fib, 2003 at [facility] HERNIA REPAIR HX 05/2011 left [...] future refills spironolactone (ALDACTONE) 25 mg tablet Ta (more content not included)... Normal [facility] 10-19-2024 Echocardiography Echocardiography Report: Transthoracic Echo [facility] Date of service: 10/19/2024 2:44:31 PM PIG BREEDER Ordering physician: ANGELI AU Exam indication: H/o Chronic HFrEF, PAF, and LBBB Technologist: Elissa [facility] Interpreting physician: Giovanny Delgado MD PATIENT: Name: [...] is an epicardial fat pad. CONCLUSIONS: - Exam indication: H/o Chronic HFrEF, [...] * * * Final * * * [facility] Image : [id number] csSISUID Normal [facility] LUNG DIFFUSION CAPACITY (ALICE O)on 10-19-2024 LUNG DIFFUSION CAPACITY (DLCO) [facility] [address] 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 //AH Normal [facility] No Panel Informationon 10-19 [facility] [address] 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 // PULMONARY FUNCTION LAB [facility] SPIROMETRY - BASELINE AND PO ST DILATORon 10-19-2024 DLCO (ml/min/mmHg) 22.96 ml/min/mmHg [facility] DLCO LLN (ml/min/mmHg) 16.71 ml/min/mmHg [facility] DLCO PREDICTED (ml/min/mmHg) 23.07 ml/min/mmHg [facility] DLCO ULN (ml/min/mmHg) 30.71 ml/min/mmHg [facility] DLCO/VA (ml/min/mmHg/L) 0.03 ml/min/mmHg/ L [facility] DLCO/VA PREDICTED (ml/min/mmHg/L) 0.04 ml/min/mmHg/ L [facility] DLCO/VAcor (ml/min/mmHg/L) 0.03 ml/min/mmHg/ L [facility] DLCOcor (ml/min/mmHg) 22.71 ml/min/mmHg Cl [facility] DLCOcor PREDICTED (ml/min/mmHg) 23.07 ml/min/mmHg [facility] ERV PREDICTED (L) 1.17 L/S [facility] FEF25% POST (L/S) 4.76 L/S [facility] FEF25% PRE (L/S) 4.35 L/S [facility] CLG74-71% LLN (L/S) 0.76 L/S [facility] WYB76-91% POST (L/S) 1.17 L/S [facility] LKP71-85% PRE (L/S) 1.16 L/S [facility] XQO83-66% PREDICTED (L/S) 1.97 L/S [facility] FEF75% LLN (L/S) 0.16 L/S [facility] FEF75% POST (L/S) 0.43 L/S [facility] FEF75% PRE (L/S0 0.42 L/S [facility] FEF75% PREDICTED (L/S) 0.49 L/S [facility] FEF75% ULN (L/S) 1.37 L/S [facility] FET POST (S) 13.72 S [facility] FET PRE (S) 15.6 S [facility] FEV1 LLN (L) 1.89 L [facility] FEV1 PRE (L) 2.8 L [facility] FEV1 PREDICTED (L) 2.62 L [facility] FEV1 ULN (L) 3.3 L [facility] FEV1/FVC LLN (%) 62 % [facility] FEV1/FVC POST (%) 62 % [facility] FEV1/FVC PRE (%) 61 % [facility] FEV1/FVC PREDICTED (%) 76 % [facility] FEV1_POST (L) 2.84 L [facility] FVC LLN (L) 2.6 L [facility] FVC POST (L) 4.56 L [facility] FVC PRE (L) 4.61 L [facility] FVC PREDICTED (L) 3.52 L [facility] FVC ULN (L) 4.46 L [facility] IC PREDICTED (L) 2.35 L/S [facility] PEF LLN (L/S) 4.74 L/S [facility] PEF POST (L/S) 8.46 L/S [facility] PEF PRE (L/S) 8.03 L/S [facility] PEF ULN (L/S) 9.1 L/S [facility] SVC LLN (L) 2.6 L/S [facility] SVC PREDICTED (L) 3.52 L/S [facility] SVC ULN (L) 4.46 L/S [facility] VA (L) 7.23 L [facility] VA PREDICTED (L) 5.87 L [facility] SPIROMETRY - BASELINE AND POST DILATOR [facility] [address] [place] [place] [address] Test Date: 2024-10-19 Pat Name: IRENA PERAZA Department: Room: Gender: Male [place]: : 1945 Requested By: Order Number: [id number] Reading MD: Ron Bolton MD Interpretive Statements [...] 15:50:25 EDT by Ron Bolton MD ID: [id number] Name: IRENA PERAZA Race: White Ht: 67.87 in Wt: 207.23 lbs Age: 79 Gender: Male : 1945 Dx: Other mcc (current) drug therapy Smoking Hx: Non-smoker Doctor: EROS MADRID Test Date: 10/19/2024 Site: Tech: Adilene [...] 90-100 0.32 33 FIVC 4.65 4.57 -1 JFY94-99 1.16 0.76 1.97 3.74 58 -1.01 1.17 [...] DLCO met with 2 acceptable maneuvers. //AH FVC_PRE (L) : 4.61 L FVC_POST (L) : 4.56 L FVC_PRED (L) : 3.52 L FVC_LLN (L) : 2.60 L FVC_ULN (L) : 4.46 L FEV1_PRE (L) : 2.80 L FEV1_POST (L) : 2.84 L FEV1_PRED (L) : 2.62 L FEV1_LLN (L) : 1.89 L FEV1_ULN (L) : 3.30 L FEV1/FVC_PRE (%) : 61 % FEV1/FVC_POST (%) : 62 % FEV1/FVC_PRED (%) : 76 % FEV1/FVC_LLN (%) : 62 % HMV31_VMW (L/S) : 4.35 L/S VCC76_HAFE (L/S) : 4.76 L/S XES75_HVV (L/S) : 0.42 L/S ILT76_EAGP (L/S) : 0.43 L/S ZLZ43_JNLB (L/S) : 0.49 L/S TWI44_IYN (L/S) : 0.16 L/S SMI19_KIW (L/S) : 1.37 L/S LNC38-80%_PRE (L/S) : 1.16 L/S UIU20-37%_POST (L/S) : 1.17 L/S ZUA58-55%_PRED (L/S) : 1.97 L/S DWG68-00%_LLN (L/S) : 0.76 L/S PEF_PRE (L/S) : 8.03 L/S PEF_POST (L/S) : 8.46 L/S PEFMAX_LLN (L/S) : 4.74 L/S PEFMAX_ULN (L/S) : 9.10 L/S SVC_PRED (L) : 3.52 L/S SVC_LLN (L) : 2.60 L/S SVC_ULN (L/S) : 4.46 L/S IC_PRED (L) : 2.35 L/S ERV_PREDICTED (L) : 1.17 L/S DLCO (ML/MIN/MMHG) : 22.96 ml/min/mmHg DLCO_PRED (ML/MIN/MMHG) : 23.07 ml/min/mmHg DLCO_LLN(ML/MIN/MMHG) : 16.71 ml/min/mmHg DLCO_ULN (ML/MIN/MMHG) : 30.71 ml/min/mmHg FET_PRE (S) : 15.60 S FET_POST (S) : 13.72 S VA (L) : 7.23 L VA_PRD (L) : 5.87 L DLCO/VA (ML/MIN/MMHG/L) : 0.03 ml/min/mmHg/L DLCO_VA_PRED (L) : 0.04 ml/min/mmHg/L DLCOCOR (ML/MIN/MMHG) : 22.71 ml/min/mmHg DLCOCOR_PRED (ML/MIN/MMHG) : 23.07 ml/min/mmHg DLCO/VACOR (ML/MIN/MMHG/L) : 0.03 ml/min/mmHg/L Normal [facility] ([id number]) 1945 M Date Time Provider Department 10/01/24 MENDIS, ALPA G SPNSMN During your visit today, we recorded the following information about you: Mookie Ag LPN 10/01/2024 4:43 PM Signed Post Spine Injection phone call: 10/01/24 Called patient to review post procedure questions, but patient unavailable. Left vm for patient to give office a call back to go through questions. Zaask message also sent to patient and informed he can respond through message as well. Allergies As of Date: 10/01/2024 (No Known Allergies) Date Reviewed: 09/27/2024 Reviewed by: Beltran Pennington RN - Fully Assessed Reason for Visit: Post Injection Questions [Other] Prescriptions as of 10/05/2024 - amLODIPine (NORVASC) 5 mg tablet Take 1 tablet by mouth once daily. - apixaban (ELIQUIS) 5 mg tab(s) Take 1 tablet by mouth two times a day. - furosemide (LASIX) 20 mg tablet Take 1 tablet by mouth once daily. Can take additional 20 mg as needed for swelling or >2 lb weight gain overnight. - atorvastatin (LIPITOR) 40 mg tablet Take 1 tablet by mouth once daily. Need appointment for future refills - spironolactone (ALDACTONE) 25 mg tablet Take 1 tablet by mouth once daily. - escitalopram oxalate (LEXAPRO) 5 mg tablet Take 5 mg by mouth once daily. - losartan (COZAAR) 50 mg tablet Take 2 tablets by mouth once daily. - amiodarone (PACERONE) 200 mg tablet 200 mg 3 times daily for 1 week followed by 200 mg 2 times daily for 3 weeks followed by 200 mg daily thereafter - bisoprolol (ZEBETA) 5 mg tablet Take 1 tablet by mouth two times a day. - omega-3/dha/epa/fish oil (OMEGA-3 ORAL) Take by mouth once daily. - acetaminophen 650 mg CR tablet Every 12 hours - amoxicillin (AMOXIL) 500 mg capsule TAKE 2 CAPSULES BY MOUTH now then TAKE 1 CAPSULE BY MOUTH EVERY 6 HOURS UNTIL GONE - ketoconazole (NIZORAL) 2 % cream - DULoxetine (CYMBALTA) 60 mg capsule Take 1 capsule by mouth every afternoon. - fluticasone-vilanterol (BREO ELLIPTA) 100-25 mcg/dose inhaler INHALE [...] (FLONASE) 50 mcg/actuation nasal spray Use 1 [place] in each nostril once daily. - coenzyme Q10 100 mg cap Take 100 mg by mouth once daily. - albuterol HFA (PROAIR HFA) 90 mcg/actuation inhaler Inhale 2 Puffs as instructed every 6 hours as needed. - Glucosamine-Chondroit- Vit C-Mn 500-400 mg cap Take 1 capsule by mouth twice daily. Meds Comments as of 09/01/2016: Omeprazole is taken prn Problem List As Of Date 10/01/2024 Noted Resolved PAF (paroxysmal atrial fibrillation) ([facility]) [I48* Former smoker [Z87.891] Obstructive lung disease [...] for monitoring Tikosyn therapy [Z51.81, Z*09/06/2018 Gastrointestinal h (more content not included)... Normal [facility] [id number] 09-27-2024 [id number] HNO ID: [id number] Author: BELTRAN PENNINGTON RN Service: ? Author Type: Registered Nurse Type: [id number] Filed: 09/27/2024 13:06 Note Text: [facility] Post-Procedure Pain Diary- Group 4 You MUST bring this diary with you to your follow-up appointment Date: ____/____/____ Injection Time: am/pm Draw where your pain is BEFORE the procedure Please indicate your pain level BEFORE the procedure At Rest 0 1 2 3 4 5 6 7 8 9 10 With Movement 0 1 2 3 4 5 6 7 8 9 10 Additional Comments? POST- PROCEDURE Pain Diary * Please score pain only for the area of pain treated with this procedure * 6 weeks after procedure At Rest With Movement 0 1 2 3 4 5 6 7 8 9 10 0 1 2 3 4 5 6 7 8 9 10 % Improvement 0 20 40 60 80 100 Comments: 3 months after procedure At Rest With Movement 0 1 2 3 4 5 6 7 8 9 10 0 1 2 3 4 5 6 7 8 9 10 % Improvement 0 20 40 60 80 100 Comments: 6 months after procedure At Rest With Movement 0 1 2 3 4 5 6 7 8 9 10 0 1 2 3 4 5 6 7 8 9 10 % Improvement 0 20 40 60 80 100 Comments: Normal [facility] HISTORY PHYSICALon HISTORY PHYSICAL HNO ID: [id number] Author: MATTHEW EDMONDS APRN.CASHIERS SUPERVISOR Service: ? Author Type: Nurse Practitioner Type: H&P Filed: 09/27/2024 10:56 Note Text: PROCEDURAL SEDATION HISTORY AND PHYSICAL EXAM SERVICE DATE: 09/27/2024 SERVICE TIME: 10:56 AM Subjective HPI: This is a 79 year old male who presents with Lumbar spondylosis [M47.816] schedule for DESTRUCTION BY RADIO FREQUENCY ABLATION PARAVERTEBRAL FACET JOINT NERVE(S) LUMBAR/SACRAL SINGLE FACET JOINT W/IMAGE GUIDANCE FLUORO OR CT, DESTRUCTION BY NEUROLYTIC AGENT PARAVERTEBRAL FACET JOINT NERVE(S) W/ IMAGING GUIDANCE LUMBAR SACRAL 1ST ADD FACET JOINT BILATERAL today. Patient denies recent illnesses, fevers, chills, cough, SOB, CP, palpitations, or fluttering. PAST ANESTHESIA HISTORY: No history of adverse event Procedure: DESTRUCTION BY RADIO FREQUENCY ABLATION PARAVERTEBRAL FACET JOINT NERVE(S) LUMBAR/SACRAL SINGLE FACET JOINT W/IMAGE GUIDANCE FLUORO OR CT - Bilateral Procedure Procedure: DESTRUCTION BY RADIO FREQUENCY ABLATION PARAVERTEBRAL FACET JOINT NERVE(S) LUMBAR/SACRAL SINGLE FACET JOINT W/IMAGE GUIDANCE FLUORO OR CT - Bilateral Procedure Indication: chronic pain PAST MEDICAL HISTORY Diagnosis Date Arthritis CAD [...] CARDIOVERSION 11/14/15 CATHETER, ABLATION A-, 2003 at [facility] HERNIA REPAIR HX 05/2011 left [...] SURGERY 08/2015 reverse total shoulder TONSILLECTOMY HX Prior to Admission medications as of 09/27/24 1053 Medication Sig Last Dose Taking apixaban (ELIQUIS) 5 mg tab(s) Take 1 tablet by mouth two times a day. 09/27/2024 Yes furosemide (LASIX) 20 mg tablet Take 1 tablet by mouth once daily. Can take additional 20 mg as needed for swelling or >2 lb weight gain overnight. 09/27/2024 Yes atorvastatin (LIPITOR) 40 mg tablet Take 1 tablet by mouth once daily. Need appointment for future refills 09/27/2024 Yes spironolactone (ALDACTONE) 25 mg tablet Take 1 tablet by mouth once daily. 09/27/2024 Yes amLODIPine (NORVASC) 5 mg tablet Take 1 tablet by mouth once daily. 09/27/2024 Yes escitalopram oxalate (LEXAPRO) 5 mg tablet Take 5 mg by mouth once daily. 09/27/2024 Yes losartan (COZAAR) 50 mg tablet Take 2 tablets by mouth once daily. 09/27/2024 Yes amiodarone (PACERONE) 200 mg tablet 200 mg 3 times daily for 1 week followed by 200 mg 2 times daily for 3 weeks followed by 200 mg daily thereafter 09/27/2024 Yes bisoprolol (ZEBETA) 5 mg tablet Take 1 tablet by mouth two times a day. 09/27/2024 Yes omega-3 acid ethyl esters (LOVAZA) 1 gram capsule Take 1,000 mg by mouth. 09/26/2024 Yes ADVAIR DISKUS 100-50 mcg/dose inhaler Inhale as instructed two times a day. 09/27/2024 Yes tolterodine ER (DETROL LA) 4 mg 24 hr capsule Take 4 mg by mouth once daily. 09/26/2024 Yes magnesium oxide (MAG-OX) 400 mg (241.3 mg magnesium) tablet Take 1 tablet by mouth once daily. 09/26/2024 Yes rOPINIRole (REQUIP) 1 mg tablet Take 1 tablet by mouth daily at bedtime. 09/26/2024 Yes montelukast (SINGULAIR) 10 mg tablet montelukast 10 mg tablet 09/26/2024 Yes allopurinol (ZYLOPRIM) 100 mg tablet Take 100 mg by mouth once daily. 09/27/2024 Yes fluticasone (FLONASE) 50 mcg/actuation nasal spray Use 1 [place] in each nostril once daily. 09/27/2024 Yes coenzyme Q10 100 mg cap Take 100 mg by mouth once daily. 09/26/2024 Yes albuterol HFA (PROAIR HFA) 90 mcg/actuation inhaler Inhale 2 Puffs as instructed every 6 hours as needed. 09/27/2024 Yes omega-3/dha/epa/fish oil (OMEGA-3 ORAL) Take by mouth once daily. acetaminophen 650 mg CR tablet Every 12 hours amoxicillin (AMOXIL) 500 mg capsule TAKE 2 CAPSULES BY MOUTH now then TAKE 1 CAPSULE BY MOUTH EVERY 6 HOURS UNTIL GONE ketoconazole (NIZORAL) 2 % cream DULoxetine (CYMBALTA) 60 mg capsule Take 1 capsule by mouth (more content not included)... Normal [facility] OPERATIVE NOon 09-27-2024 OPERATIVE NO HNO ID: [id number] Author: ALPA RAM DO Service: Physical Medicine AND Rehabilitation Author Type: Physician Type: Operative Report Filed: 09/27/2024 12:52 Note Text: PROCEDURE REPORT Surgery/Procedure Date: September 27, 2024 Interventionalist: Alpa Ram DO Procedure(s): Bilateral L4-5 and L5-S1 facet joint radiofrequency ablation Pre-Op/Pre-Procedure Diagnosis: Lumbar spondylosis Post-Op Diagnosis: same SUBJECTIVE: Irena Peraza is a 79 year old male, who presents to [facility] for facet radiofrequency ablation. He has had previous diagnostic injections at Bilateral L4-5 and L5-S1 facet joint level(s) with at least 90-95% pain relief. 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 Pain is bilateral low back. Pain with movement is 7-8/10. I have reviewed the nurses notes and am aware of the family/social history. Informed Consent: The procedure including risks, benefits, options and personnel performing the procedure was discussed with the patient. There are no contraindications to the procedure. Irena Peraza expressed understanding and agreed to proceed. PROCEDURE: Procedure: Facet radiofrequency ablation IV was established in the upper limb with a 22 gauge angio. Irena Peraza was transferred to the Block Room. After placement of routine monitors, the procedure was performed in the usual manner with the patient in the prone position. Sedation: No Level: Bilateral L4-5 and L5-S1 facet joints (targeting the Bilateral L3 and L4 medial branch and L5 dorsal rami blocks) Technique: Patient positioned prone. Area prepped with betadine and sterile towels/drape. Fluoroscopy was used to visualize the facet joints on the bilateral side. 18 gauge, 90 mm Trident RFA insulated needles were introduced at each level and placed in position under C-arm guidance. Vascular return at the left L4 medial branch and L5 dorsal ramus levels required the needle to be repositioned. Sensory testing was not performed. Stimulation at 2 Hz with two times the above values at each level did not result in any motor stimulation in the lower limbs. 1 cc of 2% lidocaine was then injected at each level. Radiofrequency ablation was then carried out at 90 degrees C for 90 seconds at each level. At the conclusion of the ablation, 1 cc of a solution containing 2 cc of lidocaine 2% with 40 mg Depo-Medrol was administered at each level on the right side and 1 cc of a solution containing 2 cc of lidocaine 2% with 40 mg Depo-Medrol was administered at each level on the left side. [place] were removed. There was bleeding at the right L5 dorsal ramus level and the left L4 medial branch level upon removal of the needles that required applied pressure to achieve adequate hemostasis. He tolerated the procedure well and was then taken to the Post-block Recovery Area for further observation. Blood Loss: 3 cc Specimen: None Procedure Start Time: 1141 Procedure End Time: 1247 Fluoroscopy time: 1 minute 8 seconds I/primary surgeon/proceduralist performed the procedure alone. No complications were encountered. Estimated blood loss: none Specimens: none Implanted devices: none Drains: none Post procedure physical exam unchanged from pre procedure. Significant findings: Cephalad 10 for L4 SEP Cephalad 20 for L5 SEP Oblique 20 each side for L3, L4 MB Oblique 10 each side for L5 DR ASSESSMENT: Pre Procedure diagnosis: Lumbar spondylosis Post-Procedure diagnosis: same Pre Procedure Pain Level: same as above Post Procedure Pain Level: As documented in nursing notes Purposeful response to verbal or tactile stimulation: Yes PLAN: Patient is to complete post-procedure pain diary and follow up with the ordering provider. Irena Peraza was discharged home in stable condition. Post op instructions reviewed with patient. DO Kajal Garcia [facility] Ambulatory Visit Summaryon 0 09-25-2024 Ambulatory Visit Summary Ambulatory Visit Summary IRENA PERAZA :1945 Visit Date:09/25/2024 Ambulatory Visit Instructions Your Diagnosis Bloody stools Anemia due to GI blood loss History of colon polyps Diarrhea On anticoagulant therapy Afib Nausea Your Care Team Attending Physician - Zuhair Beatty MD Primary Care Physician - [place] HURTADO CNP This Is Your Medications List magnesium sulfate/potass Cl/sodium sulf (Sutab oral tablet) ondansetron (Zofran 4 mg Tab) Contact prescribing physician if questions or concerns allopurinol (allopurinol 100 mg Tab) amiodarone (amiodarone 200 mg Tab) amlodipine (amLODIPine 5 mg Tab) apixaban (Eliquis 5 mg oral tablet) aspirin atorvastatin (Lipitor 40 mg Tab) bisoprolol (bisoprolol 5 mg Tab) calcium citrate calcium-vitamin D chondroitin-glucosamin e (Chondroitin-Glucosami ne) escitalopram (escitalopram 10 mg Tab) fenofibrate (fenofibrate 160 mg oral tablet) fluticasone (fluticasone HFA 44 mcg/inh Inhaler) fluticasone nasal (Flonase) furosemide (furosemide 20 mg Tab) losartan (losartan 50 mg Tab) montelukast (montelukast 10 mg Tab) omega-3 polyunsaturated fatty acids (Lovaza) omeprazole (omeprazole 40 mg Cap-EC) ropinirole (Requip 3 mg Tab) spironolactone (spironolactone 25 mg Tab) tizanidine (tiZANidine 4 mg Tab) tolterodine (tolterodine 4 mg Cap-ER) ubiquinone (CoQ10) vardenafil (Levitra 20 mg Tab) Procedures Performed Cardioversion (07/19/2024), Colonoscopy (07/27/2021), Bunionectomy (07/09/2021), Arthrocentesis, aspiration and/or [...] Vitals Heart Rate (Peripheral) 73 Blood Pressure 123/69 Height 178 cm Height 70 in Weight 97.4 kg Weight 214.73 lb BMI 30.74 What to do next Scheduled Follow-Up Appointments Tuesday 1:15 PM EDT With: Nghia ROBERSON MD Where: [facility] [place] [address] [place] [address]- Tuesday2025 11:00 AM EDT With: Jevon Pantoja DO Where: [facility] You Need to Complete the Following CBC w/ Auto Diff, Blood, Routine collect, 09/25/24, Order for future visit, Lab Collect, Bloody stools Anemia due to GI blood loss, Not Required, Print Label By Order Location Comprehensive Metabolic Panel, Blood, Routine collect, 09/25/24, Order for future visit, Lab Collect, Bloody stools, Not Required, Print Label By Order Location Medications What How Much When Why Instructions New magnesium sulfate/ potass Cl/ sodium sulf (Sutab oral tablet) See instructions Bloody stools Anemia due to GI blood loss History of colon polyps Please follow instructions per packaging and physician's handout Pickup at [facility] New ondansetron (Zofran 4 mg Tab) 1 Tablets By Mouth As Directed as needed for Nausea/Vomiting Duration: 30 Days Refills: 3 Pickup at [facility] Unchanged allopurinol (allopurinol 100 mg Tab) 1 Tablets By Mouth Every day Contact prescribing physician if questions or concerns Unchanged amiodarone (amiodarone 200 mg Tab) Contact prescribing physician if questions or concerns Unchanged amlodipine (amLODIPine 5 mg Tab) 1 Tablets TAKE 1 TABLET BY MOUTH ONCE DAILY Contact prescribing physician if questions or concerns Unchanged apixaban (Eliquis 5 mg oral tablet) 1 Tablets By Mouth 2 times a day Contact prescribing physician if questions or concerns Unchanged aspirin Contact prescribing physician if (more content not included)... Normal [facility] Ambulatory Visit Summary Ambulatory Visit Summary IRENA PERAZA :1945 Visit Date:09/25/2024 Ambulatory Visit Instructions Your Diagnosis Bloody stools Anemia due to GI blood loss History of colon polyps Diarrhea On anticoagulant therapy Afib Nausea Your Care Team Attending Physician - Rogerio JARVIS, Zuhair Shen Primary Care Physician - [place] HURTADO CNP This Is Your Medications List magnesium sulfate/potass Cl/sodium sulf (Sutab oral tablet) ondansetron (Zofran 4 mg Tab) Contact prescribing physician if questions or concerns allopurinol (allopurinol 100 mg Tab) amiodarone (amiodarone 200 mg Tab) amlodipine (amLODIPine 5 mg Tab) apixaban (Eliquis 5 mg oral tablet) aspirin atorvastatin (Lipitor 40 mg Tab) bisoprolol (bisoprolol 5 mg Tab) calcium citrate calcium-vitamin D chondroitin-glucosamin e (Chondroitin-Glucosami ne) escitalopram (escitalopram 10 mg Tab) fenofibrate (fenofibrate 160 mg oral tablet) fluticasone (fluticasone HFA 44 mcg/inh Inhaler) fluticasone nasal (Flonase) furosemide (furosemide 20 mg Tab) losartan (losartan 50 mg Tab) montelukast (montelukast 10 mg Tab) omega-3 polyunsaturated fatty acids (Lovaza) omeprazole (omeprazole 40 mg Cap-EC) ropinirole (Requip 3 mg Tab) spironolactone (spironolactone 25 mg Tab) tizanidine (tiZANidine 4 mg Tab) tolterodine (tolterodine 4 mg Cap-ER) ubiquinone (CoQ10) vardenafil (Levitra 20 mg Tab) Procedures Performed Cardioversion (07/19/2024), Colonoscopy (07/27/2021), Bunionectomy (07/09/2021), Arthrocentesis, aspiration and/or [...] Vitals Heart Rate (Peripheral) 73 Blood Pressure 123/69 Height 178 cm Height 70 in Weight 97.4 kg Weight 214.73 lb BMI 30.74 What to do next Scheduled Follow-Up Appointments Tuesday 1:15 PM EDT With: ALLAN JARVIS, Nghia Elizabeth Where: [facility] [address] [place] [address]- Tuesday2025 11:00 AM EDT With: Jevon Pantoja DO Where: [facility] You Need to Complete the Following CBC w/ Auto Diff, Blood, Routine collect, 09/25/24, Order for future visit, Lab Collect, Bloody stools Anemia due to GI blood loss, Not Required, Print Label By Order Location Comprehensive Metabolic Panel, Blood, Routine collect, 09/25/24, Order for future visit, Lab Collect, Bloody stools, Not Required, Print Label By Order Location Medications What How Much When Why Instructions New magnesium sulfate/ potass Cl/ sodium sulf (Sutab oral tablet) See instructions Bloody stools Anemia due to GI blood loss History of colon polyps Please follow instructions per packaging and physician's handout Pickup at [facility] New ondansetron (Zofran 4 mg Tab) 1 Tablets By Mouth As Directed as needed for Nausea/Vomiting Duration: 30 Days Refills: 3 Pickup at [facility] Unchanged allopurinol (allopurinol 100 mg Tab) 1 Tablets By Mouth Every day Contact prescribing physician if questions or concerns Unchanged amiodarone (amiodarone 200 mg Tab) Contact prescribing physician if questions or concerns Unchanged amlodipine (amLODIPine 5 mg Tab) 1 Tablets TAKE 1 TABLET BY MOUTH ONCE DAILY Contact prescribing physician if questions or concerns Unchanged apixaban (Eliquis 5 mg oral tablet) 1 Tablets By Mouth 2 times a day Contact prescribing physician if questions or concerns Unchanged aspirin Contact prescribing physician if (more content not included)... Normal [facility] CBC w/ Auto Diffon 5 Basophils/100 WBC (Bld) 0.6 % Normal 0.0-2.[address] [facility] Comment on above: Performed By: #### 2 [id number] #### [facility] [address] [place] [address] Basophils/Leukocytes Auto (Bld) [Pure # fraction] 0.0 E9/L Normal 0.0-0.[address] [facility] Comment on above: Performed By: #### 2 [id number] #### [facility] [address] [place] [address] Eosinophils (Bld) [#/Vol] 0.1 E9/L Normal 0.0-0.[address] [facility] Comment on above: Performed By: #### 2 [id number] #### [facility] [address] [place] [address] Eosinophils/100 WBC (Bld) 2.3 % Normal 0.0-8.[address] [facility] Comment on above: Performed By: #### 2 [id number] #### [facility] [address] [place] [address] Erythrocyte distribution width (RBC) [Ratio] 14.6 % High 10.9-14.[address] [facility] Comment on above: Performed By: #### 2 [id number] #### [facility] [address] [place] [address] Hematocrit (Bld) [Volume fraction] 30.9 % Low 37.7-49.[address] [facility] Comment on above: Performed By: #### 2 [id number] #### [facility] [address] [place] [address] Hemoglobin (Bld) [Mass/Vol] 10.7 g/dL Low 13.5-17.[address] [facility] Comment on above: Performed By: #### 2 [id number] #### [facility] [address] [place] [address] Lymphocytes (Bld) [#/Vol] 0.6 E9/L Low 1.0-4.[address] [facility] Comment on above: Performed By: #### 2 [id number] #### [facility] [address] [place] [address] Lymphocytes/100 WBC (Bld) 10.3 % Low 14.0-50.[address] [facility] Comment on above: Performed By: #### 2 [id number] #### [facility] [address] [place] [address] MCH (RBC) [Entitic mass] 33.2 pg Normal 27.0-34.[address] [facility] Comment on above: Performed By: #### 2 [id number] #### [facility] [address] [place] [address] MCHC (RBC) [Mass/Vol] 34.6 g/dL Normal 31.4-36.0 [facility] Comment on above: Performed By: #### 2 [id number] #### [facility] [address] [place] [address] MCV (RBC) [Entitic vol] 95.9 fL Normal 80.0-100.[address] [facility] Comment on above: Performed By: #### 2 [id number] #### [facility] [address] [place] [address] Monocytes (Bld) [#/Vol] 0.5 E9/L Normal 0.2-1.[address] [facility] Comment on above: Performed By: #### 2 [id number] #### [facility] [address] [place] [address] Neutrophils (Bld) [#/Vol] 4.3 E9/L Normal 2.0-7.[address] [facility] Comment on above: Performed By: #### 2 [id number] #### [facility] [address] [place] [address] Neutrophils/100 WBC (Bld) 77.1 % High 36.0-75.[address] [facility] Comment on above: Performed By: #### 2 [id number] #### [facility] [address] [place] [address] Platelet 332.0 E9/L Normal 150.0-500.[address] [facility] Comment on above: Performed By: #### 2 [id number] #### [facility] [address] [place] [address] Platelet mean volume (Bld) [Entitic vol] 7.3 fL Normal 6.4-10.[address] [facility] Comment on above: Performed By: #### 2 [id number] #### [facility] [address] [place] [address] RBC (Bld) [#/Vol] 3.2 E12/L Low 4.3-5.[address] [facility] Comment on above: Performed By: #### 2 [id number] #### [facility] [address] [place] [address] WBC corrected for nucl RBC Auto (Bld) [#/Vol] 5.6 E9/L Normal 4.0-11.[address] [facility] Comment on above: Performed By: #### 2 [id number] #### [facility] [address] [place] [address] CHEMISTRYOrdered By: SYSTEM SYSTEM on 09-25-2024 Albumin [Mass/Vol] 4.1 g/dL Normal 3.3 - 5.0 gm/dL [facility] Albumin/Globulin [Mass ratio] 1.4 {ratio} Normal 1.1 - 2.2 [facility] ALP [Catalytic activity/Vol] 49 [iU]/d Normal 21 - 98 Int._Unit/L [facility] ALT No additional P-5'-P [Catalytic activity/Vol] 14 [iU]/d Normal 6 - 46 Int._Unit/L [facility] Anion gap [Moles/Vol] 11 mmol/L Normal 6 - 16 mEq/L R emisol Chem AST [Catalytic activity/Vol] 22 [iU]/d Normal 5 - 43 Int._Unit/L [facility] Bilirubin [Mass/Vol] 0.5 mg/dL Normal 0.0 - 1 .1 mg/dL [facility] Calcium [Mass/Vol] 9.2 mg/dL Normal 8.9 - 11. 1 mg/dL [facility] Chloride [Moles/Vol] 98 mmol/L Low 101 - 1 11 mmol/L [facility] CO2 [Moles/Vol] 28 mmol/L Normal 21 - 31 mmol/L [facility] Creatinine [Mass/Vol] 1.5 mg/dL High 0.5 - 1.3 mg/dL [facility] GFR/1.73 sq M.predicted MDRD (S/P/Bld) [Vol rate/Area] 47 mL/min/1.73 m2 Low >=59mL/min/1 .73 m2 [facility] Globulin (S) [Mass/Vol] 2.9 g/dL Normal 1.4 - 4.0 gm/dL [facility] Glucose [Mass/Vol] 96 mg/dL Normal 55 - 199 mg/dL [facility] Potassium [Moles/Vol] 4.2 mmol/L Normal 3.5 - 5.3 mmol/L [facility] Protein [Mass/Vol] 7.0 g/dL Normal 6.0 - 7.8 gm/dL [facility] Sodium [Moles/Vol] 133 mmol/L Low 135 - 145 mmol/L [facility] Urea nitrogen [Mass/Vol] 13 mg/dL Normal 5 - 21 mg/dL [facility] Urea nitrogen/Creatinine [Mass ratio] 9 mg/mg Low 10 - 20 [facility] CMPon 09-25-2024 Albumin [Mass/Vol] 4.1 g/dL Normal 3.3-5.[address] [facility] Comment on above: Performed By: #### 2 [id number] #### [facility] [address] [place] [address] Albumin/Globulin (S) [Mass conc ratio] 1.4 Normal 1.1-2.[address] [facility] Comment on above: Performed By: #### 2 [id number] #### [facility] [address] [place] [address] ALP [Catalytic activity/Vol] 49 Int._Unit/L Normal 21-[address] [facility] Comment on above: Performed By: #### 2 [id number] #### [facility] [address] [place] [address] ALT No additional P-5'-P [Catalytic activity/Vol] 14 Int._Unit/L Normal 6-[address] [facility] Comment on above: Performed By: #### 2 [id number] #### [facility] [address] [place] [address] Anion gap [Moles/Vol] 11 mmol/L Normal 6-16 [facility] Comment on above: Performed By: #### 2 [id number] #### [facility] [address] [place] [address] AST [Catalytic activity/Vol] 22 Int._Unit/L Normal 5-[address] [facility] Comment on above: Performed By: #### 2 [id number] #### [facility] [address] [place] [address] Bilirubin [Mass/Vol] 0.5 mg/dL Normal 0.0-1.1 [facility] Comment on above: Performed By: #### 2 [id number] #### [facility] [address] [place] [address] Calcium [Mass/Vol] 9.2 mg/dL Normal 8.9-11.[address] [facility] Comment on above: Performed By: #### 2 [id number] #### [facility] [address] [place] [address] Chloride [Moles/Vol] 98 mmol/L Low 101-111 [facility] Comment on above: Performed By: #### 2 [id number] #### [facility] [address] [place] [address] CO2 [Moles/Vol] 28 mmol/L Normal 21-31 [facility] Comment on above: Performed By: #### 2 [id number] #### [facility] [address] [place] [address] Creatinine [Mass/Vol] 1.5 mg/dL High 0.5-1.3 [facility] Comment on above: Performed By: #### 2 [id number] #### [facility] [address] [place] [address] Globulin (S) [Mass/Vol] 2.9 g/dL Normal 1.4-4.[address] [facility] Comment on above: Performed By: #### 2 [id number] #### [facility] [address] [place] [address] Glucose [Mass/Vol] 96 mg/dL Normal 55-[address] [facility] Comment on above: Performed By: #### 2 [id number] #### [facility] [address] [place] [address] Potassium [Moles/Vol] 4.2 mmol/L Normal 3.5-5.3 [facility] Comment on above: Performed By: #### 2 [id number] #### [facility] [address] [place] [address] Protein [Mass/Vol] 7.0 g/dL Normal 6.0-7.[address] [facility] Comment on above: Performed By: #### 2 [id number] #### [facility] [address] [place] [address] Sodium [Moles/Vol] 133 mmol/L Low 135-[address] [facility] Comment on above: Performed By: #### 2 [id number] #### [facility] [address] [place] [address] Urea nitrogen [Mass/Vol] 13 mg/dL Normal 5-[address] [facility] Comment on above: Performed By: #### 2 [id number] #### [facility] [address] [place] [address] Urea nitrogen/Creatinine [Mass ratio] 9 No Units Low 10-[address] [facility] Comment on above: Performed By: #### 2 [id number] #### [facility] [address] [place] [address] Gastroenterology Office/Clin ic Noteon 09-25-2024 Gastroenterology Office/Clinic Note Gastroenterology Office/Clinic Note Chief Complaint Blood in stool HPI Staff Established patient is a(n) 79 year old male who presents today for a sick call with c/o bloody stools. Blood in stool: When did it start: started a couple weeks ago and stopped a week ago. Every BM or less frequent: every BM Bright red or dark red: dark red Associated symptoms: no Intermittent morning nausea Previous testing: Any blood thinners? Eliquis Any GLP-1 agonists? no Laboratory Results CBC CMP Basophil Absolute: 0 E9/L (08/21/24) A/G Ratio: 1.4 (08/21/24) Basophil Auto: 0.5 % (08/21/24) AGAP: 11 mEq/L (08/21/24) Eos Absolute: 0.1 E9/L (08/21/24) Albumin Lvl: 4.1 gm/dL (08/21/24) Eos Auto: 2.5 % (08/21/24) Alk Phos: 40 Int._Unit/L (08/21/24) Hct: 36.6 % Low (08/21/24) ALT: 16 Int._Unit/L (08/21/24) HGB: 12 gm/dL Low (08/21/24) AST: 18 Int._Unit/L (08/21/24) Lymph Absolute: 0.8 E9/L Low (08/21/24) Bili Total: 0.5 mg/dL (08/21/24) Lymph Auto: 14.7 % (08/21/24) BUN: 17 mg/dL (08/21/24) MCH: 31.6 pg (08/21/24) BUN/Creat Ratio: 14 (08/21/24) MCHC: 32.7 gm/dL (08/21/24) Calcium Lvl: 9.3 mg/dL (08/21/24) MCV: 96.8 fL (08/21/24) Chloride: 102 mmol/L (08/21/24) [place] Absolute: 0.6 E9/L (08/21/24) CO2: 28 mmol/L (08/21/24) [place] Auto: 10.8 % (08/21/24) Creatinine: 1.2 mg/dL (08/21/24) MPV: 7.6 fL (08/21/24) Globulin: 2.9 gm/dL (08/21/24) Neutro Absolute: 3.7 E9/L (08/21/24) Glucose Lvl: 80 mg/dL (08/21/24) Neutro Auto: 71.5 % (08/21/24) Potassium Lvl: 4 mmol/L (08/21/24) Platelet: 324 E9/L (08/21/24) Sodium Lvl: 137 mmol/L (08/21/24) RBC: 3.8 E12/L Low (08/21/24) Total Protein: 7 gm/dL (08/21/24) RDW: 15.7 % High (08/21/24) WBC: 5.2 E9/L (08/21/24) Liver Studies Ferritin Lvl: 448 ng/mL High (08/21/24) Iron: 76 mcg/dL (08/21/24) TIBC: 455 mcg/dL High (08/21/24) History of Present Illness Reviewed HPI collected by staff Review of Systems PHQ Score Initial Depression Screen Score: 0 SCORE All systems reviewed, negative; Except for above Physical Exam Vitals & Measurements HR: 73(Peripheral) BP: 123/69 HT: 178 cm HT: 70 in WT: 97.4 kg WT: 214.73 lb BMI: 30.74 No acute distress Procedure EGD/Colonoscopy 07/27/21 w/Dr. Beatty: Impression and Plan 1. Multiple white exudates throughout the esophagus suggestive of Manny esophagitis, biopsied2. Normal gastric mucosa, random biopsies obtained to rule out H. pylori Impression and Plan 1. Sessile polyp, 2 mm, in the cecum, removed completely with cold snare 2. Sessile polyp, 5 mm, in the descending, in the area that was previously tattooed, removed completely with cold snare 3. Moderate nonbleeding internal hemorrhoids Recommendations: Repeat colonoscopy:: In 5 years, Pending pathology results. Pathology: Diagnosis Comment (Verified) A. Intraepithelial yeast and hyphae form fungal microorganisms identified with GMS stain, morphologically compatible with Manny species. Final Diagnosis (Verified) A: MANNY ESOPHAGITIS, BIOPSY: ??? SQUAMOUS MUCOSA WITH MODERATE CHRONIC ACTIVE MANNY ESOPHAGITIS. B: STOMACH, BIOPSY: ??? ANTRAL MUCOSA WITH MILD CHRONIC INACTIVE GASTRITIS. ??? PROTON PUMP INHIBITOR INDUCED CHANGES SUGGESTED. ??? NO INTESTINAL METAPLASIA IDENTIFIED. ??? NO H. PYLORI MICROORGANISMS IDENTIFIED WITH IMMUNOSTAIN. C: POLYP, CECUM, POLYPECTOMY: ??? COLONIC MUCOSA WITH FOCAL HYPERPLASTIC CHANGES. D: POLYP, DESCENDING COLON, POLYPECTOMY: ??? HYPERPLASTIC POLYP. Assessment/Plan 1. Bloody stools (K92.1: Melena) Started about 2 weeks ago, lasted about a week He also reports diarrhea that started around the same time, having 2 watery BMs a day Describes the color of blood as maroon Reports feeling sick to the stomach, took Pepto with some relief - Schedule Colonoscopy to evaluate. Discussed risks such as bleeding, injury and perforation as well as benefits. Patient agreeable. 2. 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 History of colon polyps (Z86.0100: Personal history of colon polyps, unspecified) Had multiple TAs and HPs 4. Diarrhea (R19.7: Diarrhea, unspecified) Started about 2 weeks ago, 2 watery BMs daily 5. On anticoagulant therapy (Z79.01: [facility] (current) use of anticoagulants) 6. Afib (I48.91: Unspecified atrial fibrillation) He states he is currently in AFib Has [employer] Technician reportedly told him to stay on Eliquis recently after trying to stop it for a different procedure Will discuss with cardiology to see if it can be held now He sees Dr Angeli Au @ [facility] Advised patient that colonoscopy can be done while on AC but if a polyp is seen, cannot be removed 7. Nausea (R (more content not included)... Normal [facility] Comment on above: Result Comment: Elec tronically Signed By: Rogerio JARVIS, Zuhair Shen\.br\Date and Time Signed: 09/25/24 13:57 EDT\.br\Electronically Co-Signed By: Yareli Peraza MA\.br\Date and Time Co-Signed: 09/25/24 12:49 EDT HEMATOLOGYOrdered By: SYSTEM SYSTEM on 09-25-2024 Basophils/100 WBC (Bld) 0.6 % Normal 0.0 - 2.0 % [facility] Basophils/Leukocytes Auto (Bld) [Pure # fraction] 0.0 E9/L Normal 0.0 - 0.2 E9/L [facility] Eosinophils (Bld) [#/Vol] 0.1 E9/L Normal 0.0 - 0.5 E9/L [facility] Eosinophils/100 WBC (Bld) 2.3 % Normal 0.0 - 8.0 % [facility] Erythrocyte distribution width (RBC) [Ratio] 14.6 % High 10.9 - 14.2 % [facility] Hematocrit (Bld) [Volume fraction] 30.9 % Low 37.7 - 49.0 % [facility] Hemoglobin (Bld) [Mass/Vol] 10.7 g/dL Low 13.5 - 17.5 gm/dL [facility] Lymphocytes (Bld) [#/Vol] 0.6 E9/L Low 1.0 - 4.0 E9/L [facility] Lymphocytes/100 WBC (Bld) 10.3 % Low 14.0 - 50.0 % [facility] MCH (RBC) [Entitic mass] 33.2 pg Normal 27.0 - 34.0 pg [facility] MCHC (RBC) [Mass/Vol] 34.6 g/dL Normal 31.4 - 36.0 gm/dL [facility] MCV (RBC) [Entitic vol] 95.9 fL Normal 80.0 - 100.0 fL [facility] Monocytes (Bld) [#/Vol] 0.5 E9/L Normal 0.2 - 1.0 E9/L [facility] Monocytes/100 WBC (Bld) 9.7 % Normal 4.0 - 14.0 % [facility] Neutrophils (Bld) [#/Vol] 4.3 E9/L Normal 2.0 - 7.5 E9/L [facility] Neutrophils/100 WBC (Bld) 77.1 % High 36.0 - 75.0 % [facility] Platelet 332.0 E9/L Normal 150.0 - 500.0 E9/L [facility] Platelet mean volume (Bld) [Entitic vol] 7.3 fL Normal 6.4 - 10.8 fL [facility] RBC (Bld) [#/Vol] 3.2 E12/L Low 4.3 - 5.9 E12/L [facility] WBC corrected for nucl RBC Auto (Bld) [#/Vol] 5.6 E9/L Normal 4.0 - 11.0 E9/L [facility] eGFRon 09-25-2024 GFR/1.73 sq M.predicted MDRD (S/P/Bld) [Vol rate/Area] 47 mL/min/1.73 m2 Low >=[address] [facility] Comment on above: Performed By: #### 1 [id number] #### [facility] [address] [place] [address] Kassie 09-20-2024 HAYDER Telephone (NIQ) IRENA PERAZA ([id number]) 1945 M Date Time Provider Department 09/20/24 ALPA RAM During your visit today, we recorded the following information about you: Errol Pierce 09/20/2024 9:14 AM Signed Pt called about his missed VV yesterday - requesting a call back Delfina Hwang, RN 09/20/2024 11:59 AM Signed Spoke to patient he somehow was not able to log into zoom yesterday. Wanted to discuss how the injection went. He said was feeling 95%. It was great. He is getting the RFA done on 09/27. He is going to upload the pain dairy and I can forward to Dr. Mendis for review. Allergies As of Date: 09/20/2024 (No Known Allergies) Date Reviewed: 08/28/2024 Reviewed by: Vito Grossman RN - Fully Assessed Reason for Visit: Appointment [186] Prescriptions as of 09/21/2024 - apixaban (ELIQUIS) 5 mg tab(s) Take 1 tablet by mouth two times a day. - furosemide (LASIX) 20 mg tablet Take 1 tablet by mouth once daily. Can take additional 20 mg as needed for swelling or >2 lb weight gain overnight. - atorvastatin (LIPITOR) 40 mg tablet Take 1 tablet by mouth once daily. Need appointment for future refills - spironolactone (ALDACTONE) 25 mg tablet Take 1 tablet by mouth once daily. - amLODIPine (NORVASC) 5 mg tablet Take 1 tablet by mouth once daily. - escitalopram oxalate (LEXAPRO) 5 mg tablet Take 5 mg by mouth once daily. - losartan (COZAAR) 50 mg tablet Take 2 tablets by mouth once daily. - amiodarone (PACERONE) 200 mg tablet 200 mg 3 times daily for 1 week followed by 200 mg 2 times daily for 3 weeks followed by 200 mg daily thereafter - bisoprolol (ZEBETA) 5 mg tablet Take 1 tablet by mouth two times a day. - omega-3/dha/epa/fish oil (OMEGA-3 ORAL) Take by mouth once daily. - acetaminophen 650 mg CR tablet Every 12 hours - amoxicillin (AMOXIL) 500 mg capsule TAKE 2 CAPSULES BY MOUTH now then TAKE 1 CAPSULE BY MOUTH EVERY 6 HOURS UNTIL GONE - ketoconazole (NIZORAL) 2 % cream - DULoxetine (CYMBALTA) 60 mg capsule Take 1 capsule by mouth every afternoon. - fluticasone-vilanterol (BREO ELLIPTA) 100-25 mcg/dose inhaler INHALE [...] (FLONASE) 50 mcg/actuation nasal spray Use 1 [place] in each nostril once daily. - coenzyme Q10 100 mg cap Take 100 mg by mouth once daily. - albuterol HFA (PROAIR HFA) 90 mcg/actuation inhaler Inhale 2 Puffs as instructed every 6 hours as needed. - Glucosamine-Chondroit- Vit C-Mn 500-400 mg cap Take 1 capsule by mouth twice daily. Meds Comments as of 09/01/2016: Omeprazole is taken prn Problem List As Of Date 09/20/2024 Noted Resolved PAF (paroxysmal atrial fibrillation) (FORMERLY [facility]) [I48* Former smoker [Z87.891] Obstructive lung disease [...] 30-34.9 [E66.811] 01/03/2018 Persistent atrial fibrillation (HCC) [I48 (more content not included)... Normal [facility] Basic metabolic 2000 panelon 09-19-2024 Anion gap [Moles/Vol] 9 mmol/L Normal 8-15 [facility] Comment on above: Order Comment: Speci men Type: BLOOD SPECIMEN Ordering Facility: [facility] Address: [address] [place] [address] Performed By: #### 2 4321-2 #### [facility] CLIA [id number] [address] [place] [address] 14588 Calcium [Mass/Vol] 9.8 mg/dL Normal 8.5-10.2 [facility] Comment on above: Order Comment: Speci men Type: BLOOD SPECIMEN Ordering Facility: [facility] Address: [address] [id number] Performed By: #### 2 4321-2 #### [facility] CLIA [id number] [address] [place] [address] 38756 Chloride [Moles/Vol] 98 mmol/L Normal 98-107 [facility] Comment on above: Order Comment: Speci men Type: BLOOD SPECIMEN Ordering Facility: [facility] Address: [address] [place] [address] Performed By: #### 2 4321-2 #### [facility] CLIA [id number] [address] [place] [address] 96757 CO2 [Moles/Vol] 27 mmol/L Normal 22-30 [facility] Comment on above: Order Comment: Speci men Type: BLOOD SPECIMEN Ordering Facility: [facility] Address: [address] [id number] Performed By: #### 2 4321-2 #### [facility] CLIA [id number] [address] [place] [address] Creatinine [Mass/Vol] 1.70 mg/dL High 0.73-1.22 [facility] Comment on above: Order Comment: Speci men Type: BLOOD SPECIMEN Ordering Facility: [facility] Address: [address] [place] [address] Performed By: #### 2 4321-2 #### [facility] CLIA [id number] [address] [place] [address] Creatinine and Glomerular filtration rate.predicted panel (S/P/Bld) 41 mL/min/1.73m??? Low >=60 [facility] Comment on above: Order Comment: Speci men Type: BLOOD SPECIMEN Ordering Facility: [facility] Address: [address] [place] [address] Result Comment: Celia mated Glomerular Filtration Rate [...] GFR. Performed By: #### 2 4321-2 #### [facility] CLIA [id number] [address] [place] [address] Glucose [Mass/Vol] 98 mg/dL Normal 74-99 [facility] Comment on above: Order Comment: Speci men Type: BLOOD SPECIMEN Ordering Facility: [facility] Address: [address] [id number] Result Comment: The [place] [employer] (ADA) provides guidance for cutoff [...] Standards of Medical Care in Diabetes 2016, [place] [employer]. Diabetes Care. 2016.39(Suppl 1). Performed By: #### 2 4321-2 #### [facility] CLIA [id number] [address] [place] [address] 17179 Potassium [Moles/Vol] 4.8 mmol/L Normal 3.7-5.1 [facility] Comment on above: Order Comment: Speci men Type: BLOOD SPECIMEN Ordering Facility: [facility] Address: [address] [place] [address] Performed By: #### 2 4321-2 #### [facility] CLIA [id number] [address] [place] [address] 32953 Sodium [Moles/Vol] 134 mmol/L Low 136-144 [facility] Comment on above: Order Comment: Domenica barboza Type: BLOOD SPECIMEN Ordering Facility: [facility] Address: [address] [place], [place] [address] Performed By: #### 2 4321-2 #### [facility] CLIA [id number] [address] [place] [address] 86378 Urea nitrogen [Mass/Vol] 15 mg/dL Normal 9-24 [facility] Comment on above: Order Comment: Domenica barboza Type: BLOOD SPECIMEN Ordering Facility: [facility] Address: [address] [place] [address] Performed By: #### 2 4321-2 #### [facility] CLIA [id number] [address] [place] [address] 27781 NT-proBNP [facility] 09-19 Natriuretic peptide.B prohormone N-Terminal [Mass/Vol] 1455 pg/mL High <450 [facility] Comment on above: Order Comment: Speci men Type: BLOOD SPECIMEN Ordering Facility: [facility] Address: [address] [place] [address] Performed By: #### 1 9123-9, 95002-4 #### [facility] CLIA [id number] [address] [place] [address] 10366 Kassie 09-17-2024 CNPN Telephone (SPNSMN) IRENA PERAZA ([id number]) 1945 M Date Time Provider Department 09/17/24 [facility] During your visit today, we recorded the following information about you: Mookie Ag LPN 09/17/2024 4:50 PM Signed Called and left patient a message for patient to give office a call back regarding his spine procedure on 09/27/24. Mookie Ag LPN 09/21/2024 10:59 AM Signed Phoned patient and spoke with patient to confirm appointment for Irena Peraza for spine procedure on 09/27/24. Patient notified that Christy will call patient the night before with the time to arrive for injection. Patient verbalized understanding of the following: -Provided education on spine procedure and answered questions related to spine injection procedure. 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 -NPO 6 hours prior to appointment, ok to take morning medications with sip of water. -Not to take any pain medications the day of injection to see how well injection works. -Do not take any NSAIDs/anti-inflammato concepción (mobic, ibuprofen, advil, aleve, etc) the day of procedure for all lumbar, hip, and sacroiliac joint procedures. Hold NSAIDs for 1 day prior to procedure for cervical cases. Allergies reviewed: Yes Allergy to IV contrast dye or steroids: No Taking any antiplatelet/anticoagu lant (blood thinners): No Taking aspirin 81mg: No Any open wounds/sores?: No Taking Antibiotics?: No Patient given number [phone], spine injections schedulers, if there is any need to reschedule/ change appointment during normal business hours. Active MyChart users were informed to read MyChart procedure instructions prior to appointment. AMBULATORY PATIENT EDUCATION TOPIC: SPINE INJECTION PROCEDURE, PRE-INJECTION AND POST- INJECTION INSTRUCTIONS READINESS TO LEARN COGNITIVE ABILITY: ALERT AND ORIENTED MOTIVATION TO LEARN: Eager FAMILY SUPPORT: Unable to assess - Family not present INSTRUCTION PROVIDED TO: Patient PATIENT LEARNS BEST BY: INDIVIDUAL INSTRUCTION FACTORS AFFECTING LEARNING: None PHYSICAL LIMITATIONS AFFECTING LEARNING: None LEARNING RESPONSE METHOD OF INSTRUCTION: TEACH BACK AND INDIVIDUAL INSTRUCTION PATIENT / FAMILY RESPONSE: VERBALIZED UNDERSTANDING OF PRE AND POST INJECTION INSTRUCTIONS Allergies As of Date: 09/17/2024 (No Known Allergies) Date Reviewed: 08/28/2024 Reviewed by: Vito Grossman RN - Fully Assessed Reason for Visit: Preperations for Procedure Call [Other] Prescriptions as of 09/21/2024 - apixaban (ELIQUIS) 5 mg tab(s) Take 1 tablet by mouth two times a day. - furosemide (LASIX) 20 mg tablet Take 1 tablet by mouth once daily. Can take additional 20 mg as needed for swelling or >2 lb weight gain overnight. - atorvastatin (LIPITOR) 40 mg tablet Take 1 tablet by mouth once daily. Need appointment for future refills - spironolactone (ALDACTONE) 25 mg tablet Take 1 tablet by mouth once daily. - amLODIPine (NORVASC) 5 mg tablet Take 1 tablet by mouth once daily. - escitalopram oxalate (LEXAPRO) 5 mg tablet Take 5 mg by mouth once daily. - losartan (COZAAR) 50 mg tablet Take 2 tablets by mouth once daily. - amiodarone (PACERONE) 200 mg tablet 200 mg 3 times daily for 1 week followed by 200 mg 2 times daily for 3 weeks followed by 200 mg daily thereafter - bisoprolol (ZEBETA) 5 mg tablet Take 1 tablet by mouth two times a day. - omega-3/dha/epa/fish oil (OMEGA-3 ORAL) Take by mouth once daily. - acetaminophen 650 mg CR tablet Every 12 hours - amoxicillin (AMOXIL) 500 mg capsule TAKE 2 CAPSULES BY MOUTH now then TAKE 1 CAPSULE BY MOUTH EVERY 6 HOURS UNTIL GONE - ketoconazole (NIZORAL) 2 % cream - DULoxetine (CYMBALTA) 60 mg capsule Take 1 capsule by mouth every afternoon. - fluticasone-vilanterol (BREO ELLIPTA) 100-25 mcg/dose inhaler INHALE [...] - PROCTOZONE-HC 2.5 % rectal cream APPLY (more content not included)... Normal [facility] Kassie 09-10-2024 HAYDER Telephone (FVJOCELYNND) IRENA PERAZA ([id number]) 1945 M Date Time Provider Department 09/10/24 MOUSTAPHA MELVIN During your visit today, we recorded the following information about you: Allergies As of Date: 09/10/2024 (No Known Allergies) Date Reviewed: 08/28/2024 Reviewed by: Vito Grossman RN - Fully Assessed Reason for Visit: Appointment [186] Clinical Update [1735] Primary Visit Diagnosis:HFrEF (heart failure with reduced ejection fraction) (FORMERLY [facility]) [I50.20] Order(s):BASIC METABOLIC PANEL [SQBMP] Order #: [id number] FUTURE NT PRO BNP [SQNTBNP] Order #: [id number] FUTURE Prescriptions as of 09/13/2024 - apixaban (ELIQUIS) 5 mg tab(s) Take 1 tablet by mouth two times a day. - furosemide (LASIX) 20 mg tablet Take 1 tablet by mouth once daily. Can take additional 20 mg as needed for swelling or >2 lb weight gain overnight. - atorvastatin (LIPITOR) 40 mg tablet Take 1 tablet by mouth once daily. Need appointment for future refills - spironolactone (ALDACTONE) 25 mg tablet Take 1 tablet by mouth once daily. - amLODIPine (NORVASC) 5 mg tablet Take 1 tablet by mouth once daily. - escitalopram oxalate (LEXAPRO) 5 mg tablet Take 5 mg by mouth once daily. - losartan (COZAAR) 50 mg tablet Take 2 tablets by mouth once daily. - amiodarone (PACERONE) 200 mg tablet 200 mg 3 times daily for 1 week followed by 200 mg 2 times daily for 3 weeks followed by 200 mg daily thereafter - bisoprolol (ZEBETA) 5 mg tablet Take 1 tablet by mouth two times a day. - omega-3/dha/epa/fish oil (OMEGA-3 ORAL) Take by mouth once daily. - acetaminophen 650 mg CR tablet Every 12 hours - amoxicillin (AMOXIL) 500 mg capsule TAKE 2 CAPSULES BY MOUTH now then TAKE 1 CAPSULE BY MOUTH EVERY 6 HOURS UNTIL GONE - ketoconazole (NIZORAL) 2 % cream - DULoxetine (CYMBALTA) 60 mg capsule Take 1 capsule by mouth every afternoon. - fluticasone-vilanterol (BREO ELLIPTA) 100-25 mcg/dose inhaler INHALE [...] (FLONASE) 50 mcg/actuation nasal spray Use 1 [place] in each nostril once daily. - coenzyme Q10 100 mg cap Take 100 mg by mouth once daily. - albuterol HFA (PROAIR HFA) 90 mcg/actuation inhaler Inhale 2 Puffs as instructed every 6 hours as needed. - Glucosamine-Chondroit- Vit C-Mn 500-400 mg cap Take 1 capsule by mouth twice daily. Meds Comments as of 09/01/2016: Omeprazole is taken prn Problem List As Of Date 09/10/2024 Noted Resolved PAF (paroxysmal atrial fibrillation) (FORM[facility]LY [facility]) [I48* Former smoker [Z87.891] Obstructive lung disease [...] [employer] Real [employer] Evidence (*05/19/2022 Atrial fibrillation (HCC (more content not included)... Normal [facility] Basic metabolic 2000 panelon 09-07-2024 Anion gap [Moles/Vol] 11 mmol/L Normal 8-15 [facility] Comment on above: Order Comment: Speci men Type: BLOOD SPECIMEN Ordering Facility: [facility] Address: [address] [place] [address] Performed By: #### 2 4321-2, 87136-2 #### [facility] CLIA [id number] [address] [place] [address] 71368 Calcium [Mass/Vol] 9.7 mg/dL Normal 8.5-10.2 [facility] Comment on above: Order Comment: Speci men Type: BLOOD SPECIMEN Ordering Facility: [facility] Address: [address] [place] [address] Performed By: #### 2 4321-2, #### [facility] CLIA [id number] [address] [place] [address] Chloride [Moles/Vol] 95 mmol/L Low 98-107 [facility] Comment on above: Order Comment: Speci men Type: BLOOD SPECIMEN Ordering Facility: [facility] Address: [address] [place] [address] Performed By: #### 2 4321-2, #### [facility] CLIA [id number] [address] [place] [address] CO2 [Moles/Vol] 26 mmol/L Normal 22-30 [facility] Comment on above: Order Comment: Speci men Type: BLOOD SPECIMEN Ordering Facility: [facility] Address: [address] [place] [address] Performed By: #### 2 432-2, #### [facility] CLIA [id number] [address] [place] [address] 51165 Creatinine [Mass/Vol] 1.77 mg/dL High 0.73-1.22 [facility] Comment on above: Order Comment: Speci men Type: BLOOD SPECIMEN Ordering Facility: [facility] Address: [address] [place] [address] Performed By: #### 2 4321-2, #### [facility] CLIA [id number] [address] [place] [address]15 Creatinine and Glomerular filtration rate.predicted panel (S/P/Bld) 39 mL/min/1.73m??? Low >=60 [facility] Comment on above: Order Comment: Speci men Type: BLOOD SPECIMEN Ordering Facility: [facility] Address: [address] [place] [address] Result Comment: Celia mated Glomerular Filtration Rate [...] reflect actual GFR. Performed By: #### 2 43205-03, #### [facility] CLIA [id number] [address] [place] [address] Glucose [Mass/Vol] 97 mg/dL Normal 74-99 [facility] Comment on above: Order Comment: Domenica barboza Type: BLOOD SPECIMEN Ordering Facility: [facility] Address: [address] [place] [address] Result Comment: The [place] [employer] (ADA) provides guidance for cutoff [...] Standards of Medical Care in Diabetes 2016, [place] [employer]. Diabetes Care. 2016.39(Suppl 1). Performed By: #### 2 4320-06, #### [facility] CLIA [id number] [address] [place] [address]204 Potassium [Moles/Vol] 4.2 mmol/L Normal 3.7-5.1 [facility] Comment on above: Order Comment: Domenica barboza Type: BLOOD SPECIMEN Ordering Facility: [facility] Address: [address] [place] [address] Performed By: #### 2 432-, #### [facility] CLIA [id number] [address] [place] [address] Sodium [Moles/Vol] 132 mmol/L Low 136-144 [facility] Comment on above: Order Comment: Domenica barboza Type: BLOOD SPECIMEN Ordering Facility: [facility] Address: [address] [place] [address] Performed By: #### 2 4321-2, #### [facility] CLIA [id number] [address] [place] [address] 76003 Urea nitrogen [Mass/Vol] 18 mg/dL Normal 9-24 [facility] Comment on above: Order Comment: Speci men Type: BLOOD SPECIMEN Ordering Facility: [facility] Address: [address] [place] [address] Performed By: #### 2 4321-2, #### [facility] CLIA [id number] [address] [place] [address]168 Magnesium SerPl-mCncon 09-07 Magnesium [Mass/Vol] 1.9 mg/dL Normal 1.7-2.3 [facility] Comment on above: Order Comment: Speci men Type: BLOOD SPECIMEN Ordering Facility: [facility] Address: [address] [place] [address] Performed By: #### 2 4321-2, #### [facility] CLIA [id number] [address] [place] [address] CN[facility]oc[facility] IRENA PERAZA ([id number]) 1945 M Date Time Provider Department 09/06/24 [facility] During your visit today, we recorded the following information about you: Mookie Ag LPN 09/06/2024 3:28 PM Signed [employer] message sent to patient with Procedure Instructions. Allergies As of Date: 09/06/2024 (No Known Allergies) Date Reviewed: 08/28/2024 Reviewed by: Vito Grossman RN - Fully Assessed Reason for Visit: Preperations for Procedure [Other] Cmt: Omar Prescriptions as of 09/06/2024 - apixaban (ELIQUIS) 5 mg tab(s) Take 1 tablet by mouth two times a day. - furosemide (LASIX) 20 mg tablet Take 1 tablet by mouth once daily. Can take additional 20 mg as needed for swelling or >2 lb weight gain overnight. - atorvastatin (LIPITOR) 40 mg tablet Take 1 tablet by mouth once daily. Need appointment for future refills - spironolactone (ALDACTONE) 25 mg tablet Take 1 tablet by mouth once daily. - amLODIPine (NORVASC) 5 mg tablet Take 1 tablet by mouth once daily. - escitalopram oxalate (LEXAPRO) 5 mg tablet Take 5 mg by mouth once daily. - losartan (COZAAR) 50 mg tablet Take 2 tablets by mouth once daily. - amiodarone (PACERONE) 200 mg tablet 200 mg 3 times daily for 1 week followed by 200 mg 2 times daily for 3 weeks followed by 200 mg daily thereafter - bisoprolol (ZEBETA) 5 mg tablet Take 1 tablet by mouth two times a day. - omega-3/dha/epa/fish oil (OMEGA-3 ORAL) Take by mouth once daily. - acetaminophen 650 mg CR tablet Every 12 hours - amoxicillin (AMOXIL) 500 mg capsule TAKE 2 CAPSULES BY MOUTH now then TAKE 1 CAPSULE BY MOUTH EVERY 6 HOURS UNTIL GONE - ketoconazole (NIZORAL) 2 % cream - DULoxetine (CYMBALTA) 60 mg capsule Take 1 capsule by mouth every afternoon. - fluticasone-vilanterol (BREO ELLIPTA) 100-25 mcg/dose inhaler INHALE [...] (FLONASE) 50 mcg/actuation nasal spray Use 1 [place] in each nostril once daily. - coenzyme Q10 100 mg cap Take 100 mg by mouth once daily. - albuterol HFA (PROAIR HFA) 90 mcg/actuation inhaler Inhale 2 Puffs as instructed every 6 hours as needed. - Glucosamine-Chondroit- Vit C-Mn 500-400 mg cap Take 1 capsule by mouth twice daily. Meds Comments as of 09/01/2016: Omeprazole is taken prn Problem List As Of Date 09/06/2024 Noted Resolved PAF (paroxysmal atrial fibrillation) (FORM[facility]LY [facility]) [I48* Former smoker [Z87.891] Obstructive lung disease [...] back pain, unspecified [M54.50] 01/12/2022 Diagnosed: 06/13/2023 (more content not included)... Normal [facility] [id number] 08-28-2024 [id number] HNO ID: [id number] Author: VITO GROSSMAN RN Service: ? Author Type: Registered Nurse Type: [id number] Filed: 08/28/2024 11:00 Note Text: [facility] Post-Procedure Pain Diary- Group 1 You MUST bring this diary with you to your follow-up appointment Date: ____/____/____ Injection Time: am/pm Draw where your pain is BEFORE the procedure Please indicate your pain level BEFORE the procedure At Rest 0 1 2 3 4 5 6 7 8 9 10 With Movement 0 1 2 3 4 5 6 7 8 9 10 Additional Comments? POST- PROCEDURE Pain Diary * Please score pain only for the area of pain treated with this procedure * 30 minutes after procedure At Rest With Movement 0 1 2 3 4 5 6 7 8 9 10 0 1 2 3 4 5 6 7 8 9 10 % Improvement 0 20 40 60 80 100 Comments: 1 hour after procedure At Rest With Movement 0 1 2 3 4 5 6 7 8 9 10 0 1 2 3 4 5 6 7 8 9 10 % Improvement 0 20 40 60 80 100 Comments: 2 hours after procedure At Rest With Movement 0 1 2 3 4 5 6 7 8 9 10 0 1 2 3 4 5 6 7 8 9 10 % Improvement 0 20 40 60 80 100 Comments: 3 hours after procedure At Rest With Movement 0 1 2 3 4 5 6 7 8 9 10 0 1 2 3 4 5 6 7 8 9 10 % Improvement 0 20 40 60 80 100 Comments: 4 hours after procedure At Rest With Movement 0 1 2 3 4 5 6 7 8 9 10 0 1 2 3 4 5 6 7 8 9 10 % Improvement 0 20 40 60 80 100 Comments: 5 hours after procedure At Rest With Movement 0 1 2 3 4 5 6 7 8 9 10 0 1 2 3 4 5 6 7 8 9 10 % Improvement 0 20 40 60 80 100 Comments: 6 hours after procedure At Rest With Movement 0 1 2 3 4 5 6 7 8 9 10 0 1 2 3 4 5 6 7 8 9 10 % Improvement 0 20 40 60 80 100 Comments: Normal [facility] HISTORY PHYSICALon HISTORY PHYSICAL HNO ID: [id number] Author: JOYA RAYMOND APRN.[employer] Service: Family Practice Author Type: Nurse Practitioner Type: H&P Filed: 08/28/2024 09:54 Note Text: LOCAL PROCEDURE HISTORY AND PHYSICAL EXAM SERVICE DATE: 08/28/2024 SERVICE TIME: 9:52 AM Provisional Diagnosis/Treatment Plan: Lumbar Spine - Medial branch block Subjective HPI: This is a 79 year old male who presents with back pain MEDICATIONS: Prior to Admission medications as of 08/28/24 0921 Medication Sig Last Dose Taking apixaban (ELIQUIS) 5 mg tab(s) Take 1 tablet by mouth two times a day. 08/28/2024 Morning Yes furosemide (LASIX) 20 mg tablet Take 1 tablet by mouth once daily. Can take additional 20 mg as needed for swelling or >2 lb weight gain overnight. 08/28/2024 Morning Yes atorvastatin (LIPITOR) 40 mg tablet Take 1 tablet by mouth once daily. Need appointment for future refills 08/27/2024 Yes spironolactone (ALDACTONE) 25 mg tablet Take 1 tablet by mouth once daily. 08/28/2024 Morning Yes amLODIPine (NORVASC) 5 mg tablet Take 1 tablet by mouth once daily. 08/28/2024 Morning Yes escitalopram oxalate (LEXAPRO) 5 mg tablet Take 5 mg by mouth once daily. 08/28/2024 Morning Yes amiodarone (PACERONE) 200 mg tablet 200 mg 3 times daily for 1 week followed by 200 mg 2 times daily for 3 weeks followed by 200 mg daily thereafter 08/28/2024 Morning Yes bisoprolol (ZEBETA) 5 mg tablet Take 1 tablet by mouth two times a day. 08/28/2024 Morning Yes omega-3/dha/epa/fish oil (OMEGA-3 ORAL) Take by mouth once daily. 08/27/2024 Yes ADVAIR DISKUS 100-50 mcg/dose inhaler Inhale as instructed two times a day. 08/28/2024 Morning Yes tolterodine ER (DETROL LA) 4 mg 24 hr capsule Take 4 mg by mouth once daily. 08/27/2024 Yes Fenofibrate (LOFIBRA) 160 mg tablet TAKE 1 TABLET ONCE DAILY 08/27/2024 Yes cholecalciferol, vitamin D3, (VITAMIN D3 ORAL) Take by mouth. 08/26/2024 Yes omeprazole (PRILOSEC) 40 mg capsule Take 40 mg by mouth once daily. 08/27/2024 Yes rOPINIRole (REQUIP) 1 mg tablet Take 1 tablet by mouth daily at bedtime. 08/27/2024 Yes montelukast (SINGULAIR) 10 mg tablet montelukast 10 mg tablet 08/27/2024 Yes allopurinol (ZYLOPRIM) 100 mg tablet Take 100 mg by mouth once daily. 08/28/2024 Morning Yes PROCTOZONE-HC 2.5 % rectal cream APPLY TO THE AFFECTED AREA(S) 2-4 times daily 08/27/2024 Yes fluticasone (FLONASE) 50 mcg/actuation nasal spray Use 1 [place] in each nostril once daily. 08/28/2024 Morning Yes albuterol HFA (PROAIR HFA) 90 mcg/actuation inhaler Inhale 2 Puffs as instructed every 6 hours as needed. 08/28/2024 Morning Yes Glucosamine-Chondroit- Vit C-Mn 500-400 mg cap Take 1 capsule by mouth twice daily. 08/27/2024 Yes losartan (COZAAR) 50 mg tablet Take 2 tablets by mouth once daily. acetaminophen 650 mg [...] gram capsule Take 1,000 mg by mouth. aspirin, enteric coated (ECOTRIN LOW STRENGTH) 81 mg EC tablet Take 1 tablet by mouth once daily. magnesium oxide (MAG-OX) 400 mg (241.3 mg magnesium) tablet Take 1 tablet by mouth once daily. coenzyme Q10 100 mg cap Take 100 mg by mouth once daily. 08/26/2024 ALLERGIES No Known Allergies Objective PHYSICAL EXAM: The remainder of the physical exam is noncontributory. GENERAL: Alert, no distress, cooperative, Obese LUNGS: Lungs clear to auscultation, Good diaphragmatic excursion CARDIAC: Normal S1 and S2; no rubs, murmurs, or gallops BP 131/69 Pulse 85 Temp 36.8 ?C (98.2 ?F) (Temporal) Resp 18 SpO2 99% PAIN ASSESSMENT: PAIN EVALUATION 08/28/2024 0935 Pain Level: 5 Pain Location: Back-Lower Assessment/Plan Active Problems: Lumbar spondylosis (POA: Yes) Assessment AND Plan: Lumbar Spine - Medial branch block Resolved Problems: * No resolved hospital problems. * Exogenous Class 1 Obesity Medication and Non-Pharmacologic VTE Prophylaxis/Anticoagul ants VTE Prophylaxis: NA SIGNATURE: Joya Raymond APRN.CHA PATIENT NAME: Irena Peraza DATE: August 28, 2024 TIME: 9:52 AM Normal [facility] OPERATIVE NOon 08-28-2024 OPERATIVE NO HNO ID: [id number] Author: ALPA RAM DO Service: Physical Medicine AND Rehabilitation Author Type: Physician Type: Operative Report Filed: 08/28/2024 10:54 Note Text: PROCEDURE REPORT Surgery/Procedure Date: August 28, 2024 Interventionalist: Alpa Ram DO Procedure(s): Bilateral L4-5 and L5-S1 facet joint diagnostic blocks Pre-Op/Pre-Procedure Diagnosis: Lumbar spondylosis Post-Op Diagnosis: same SUBJECTIVE: Irena Peraza is a 79 year old male, who presents to the [facility] for medial branch blocks at the bilateral L4-5 and L5-S1 facet joint levels. 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 Pain is located bilateral low back. Pain is currently 4-5/10, but gets up to 8-9/10 at worst. I have reviewed the nurses notes and [...] and prior to initiation of procedure. PROCEDURE: Procedure: Bilateral L4-5 and L5-S1 facet joint diagnostic blocks Irena Peraza was transferred to the Procedure Room. After placement of routine monitors, the procedure was performed in the usual manner. SEDATION: No Level: Bilateral L4-5 and L5-S1 facet joints (Bilateral L3 and L4 medial branch and L5 dorsal rami) Technique: Skin was anesthetized bilaterally with 1% lidocaine at each successive injection site at the Bilateral L3 and L4 medial branch and L5 dorsal rami levels. A #22 gauge spinal needle was positioned at each level using C arm guidance. Proper needle position was verified in at least two views. Initial vascular return at right L4 medial branch level required repositioning of the needle to resolve. Aspiration was performed which revealed no evidence blood or cerebrospinal fluid. Then injection of 0.25 cc of iohexol contrast was performed at level which revealed no vascular pattern of contrast flow. Then 0.5 cc of 0.5% Bupivacaine was administered at each [...] devices: none Drains: none Procedure Start Time: 1025 Procedure End Time: 1051 Fluoroscopy time: 1 minute 7 seconds He tolerated the procedure well and was then taken to the Post-block Recovery Area for further observation. I/primary surgeon/proceduralist performed the procedure alone. Post procedure physical exam unchanged from pre procedure. Significant findings: Cephalad 15-20 to better visualize L4 and L5 vertebral bodies Oblique 20 bilateral for L3, L4 Oblique 5 right and 10 left for L5 Initial vascular return at right L4 medial branch level required repositioning of the needle to resolve. ASSESSMENT: Pre Procedure diagnosis: Lumbar spondylosis Post-Procedure [...] in stable condition. Alpa Ram, DO Normal [facility] Dermatopathology examon 08-01 CPT 66309*[address] [facility] Final Diagnosis ACTINIC LENTIGO. COMMENT: A well-developed primary melanocytic process is not identified. The case was also reviewed with Dr. Jevon Olivia. [facility] Final Diagnosis INFLAMED FOLLICLE WI TH RUPTURE REACTION AND DERMAL FIBROSIS. COMMENT: There are features indicative of trauma or irritation. [facility] ICD10 Code L81.[address] [facility] ICD10 Code D48.[address] [facility] Microscopic Description Microscopic examination performed. [facility] Microscopic Description Microscopic examination performed on one original slide and subsequent multiple deeper sections. [facility] Specimen type Nom (Spec) ---- SPECIMEN: RT LOWER LEG POST ---- [facility] Specimen type Nom (Spec) ---- SPECIMEN: MID OCCIP SCALP ---- Replaced by [facility] No Panel Informationon 08-24 Gross Text [facility] PROTOCOL F - FLAT [facility] Healthcare Ambulatory Visit Summaryon 0 08-23-2024 Ambulatory Visit Summary Ambulatory Visit Summary IRENA PERAZA :1945 Visit Date:08/23/2024 Ambulatory Visit Instructions Your Care Team Attending Physician - Jevon Pantoja DO Primary Care Physician - [place] HURTADO CNP Referring Physician - Jevon Pantoja DO This Is Your Medications List allopurinol (allopurinol 100 mg Tab) amiodarone (amiodarone 200 mg Tab) amlodipine (amLODIPine 5 mg Tab) apixaban (Eliquis 5 mg oral tablet) aspirin atorvastatin (Lipitor 40 mg Tab) bisoprolol (bisoprolol 5 mg Tab) calcium citrate calcium-vitamin D chondroitin-glucosamin e (Chondroitin-Glucosami ne) escitalopram (escitalopram 10 mg Tab) fenofibrate (fenofibrate 160 mg oral tablet) fluticasone (fluticasone HFA 44 mcg/inh Inhaler) fluticasone nasal (Flonase) furosemide (furosemide 20 mg Tab) losartan (losartan 50 mg Tab) montelukast (montelukast 10 mg Tab) omega-3 polyunsaturated fatty acids (Lovaza) omeprazole (omeprazole 40 mg Cap-EC) ropinirole (Requip 3 mg Tab) spironolactone (spironolactone 25 mg Tab) tizanidine (tiZANidine 4 mg Tab) tolterodine (tolterodine 4 mg Cap-ER) ubiquinone (CoQ10) vardenafil (Levitra 20 mg Tab) Procedures Performed Cardioversion (07/19/2024), Colonoscopy (07/27/2021), Bunionectomy (07/09/2021), Arthrocentesis, aspiration and/or [...] repair, Tonsillectomy. Discharge Vitals Temperature (Oral) 36.5 ???C Heart Rate (Peripheral) 70 Respiratory Rate 16 Blood Pressure 118/70 Height 178 cm Weight 97.6 kg BMI 30.8 What to do next Scheduled Follow-Up Appointments Tuesday 1:15 PM EDT With: ALLAN JARVIS, Nghia Elizabeth Where: [facility] [address] [place] [address]- You Need to Complete the Following Follow-up No qualifying data available cbc, cmp, b12, folate, iron studies, epo, esr in 6 months and prior to f/u in 12 months. spep sflc immunofixation prior to f/u. ok to continue no iron or a few tabs per week. [1] Medications What How Much When Instructions Unchanged allopurinol (allopurinol 100 mg Tab) 1 Tablets By Mouth Every day Unchanged amiodarone (amiodarone 200 mg Tab) Unchanged amlodipine (amLODIPine 5 mg Tab) 1 Tablets TAKE 1 TABLET BY MOUTH ONCE DAILY Unchanged apixaban (Eliquis 5 mg oral tablet) 1 Tablets By Mouth 2 times a day Unchanged aspirin Unchanged atorvastatin (Lipitor 40 mg Tab) 1 Tablets By Mouth Every day Unchanged bisoprolol (bisoprolol 5 mg Tab) Take 1 tablet by mouth two times a day. Unchanged calcium citrate 1,500 Milligram By Mouth 2 times a day Unchanged calcium-vitamin D 1 tab By Mouth Every day Unchanged chondroitin-glucosamin e (Chondroitin-Glucosami ne) 1 Capsules By Mouth Every day Unchanged escitalopram (escitalopram 10 mg Tab) TAKE 1 TABLET BY MOUTH DAILY Unchanged fenofibrate (fenofibrate 160 mg oral tablet) 1 Tablets By Mouth Every day Unchanged fluticasone (fluticasone HFA 44 mcg/ inh Inhaler) 2 Puffs Inhalation 2 times a day as needed for Allergy symptoms Unchanged fluticasone nasal (Flonase) 1 Sprays Nasal Inhalation Every day as needed for Allergy symptoms Unchanged furosemide (furosemide 20 mg Tab) 2 Tablets Unchanged losartan (losartan 50 mg Tab) Unchanged montelukast (montelukast 10 mg Tab) 1 Tablets By Mouth Every day Unchanged omega-3 polyunsaturated fatty acids (Lovaza) 1,000 Milligram By Mouth 2 times a day Unchanged omeprazole (omeprazole 40 mg Cap-EC) 1 Capsules By Bebe (more content not included)... Normal [facility] CBC w/ Auto Diffon 5 Basophils/100 WBC (Bld) 0.5 % Normal 0.0-2.[address] [facility] Comment on above: Performed By: #### 2 [id number] #### [facility] [address] [place] [address] Basophils/Leukocytes Auto (Bld) [Pure # fraction] 0.0 E9/L Normal 0.0-0.[address] [facility] Comment on above: Performed By: #### 2 [id number] #### [facility] [address] [place] [address]32[address] Eosinophils (Bld) [#/Vol] 0.1 E9/L Normal 0.0-0.[address] [facility] Comment on above: Performed By: #### 2 [id number] #### [facility] [address] [place] [address] Eosinophils/100 WBC (Bld) 2.5 % Normal 0.0-8.[address] [facility] Comment on above: Performed By: #### 2 [id number] #### [facility] [address] [place] [address] 310[address] Erythrocyte distribution width (RBC) [Ratio] 15.7 % High 10.9-14.[address] [facility] Comment on above: Performed By: #### 2 [id number] #### [facility] [address] [place] [address] Hematocrit (Bld) [Volume fraction] 36.6 % Low 37.7-49.[address] [facility] Comment on above: Performed By: #### 2 [id number] #### [facility] [address] [place] [address] 62527 Hemoglobin (Bld) [Mass/Vol] 12.0 g/dL Low 13.5-17.[address] [facility] Comment on above: Performed By: #### 2 [id number] #### [facility] [address] [place] [address] Lymphocytes (Bld) [#/Vol] 0.8 E9/L Low 1.0-4.[address] [facility] Comment on above: Performed By: #### 2 [id number] #### [facility] [address] [place] [address] Lymphocytes/100 WBC (Bld) 14.7 % Normal 14.0-50.[address] [facility] Comment on above: Performed By: #### 2 140239 #### [facility] [address] [place] [address] MCH (RBC) [Entitic mass] 31.6 pg Normal 27.0-34.[address] [facility] Comment on above: Performed By: #### 2 [id number] #### [facility] [address] [place] [address] MCHC (RBC) [Mass/Vol] 32.7 g/dL Normal 31.4-36.0 [facility] Comment on above: Performed By: #### 2 803608 #### [facility] [address] [place] [address] MCV (RBC) [Entitic vol] 96.8 fL Normal 80.0-100.[address] [facility] Comment on above: Performed By: #### 2 890313 #### [facility] [address] [place] [address] Monocytes (Bld) [#/Vol] 0.6 E9/L Normal 0.2-1.[address] [facility] Comment on above: Performed By: #### 2 966160 #### [facility] [address] [place] [address] Neutrophils (Bld) [#/Vol] 3.7 E9/L Normal 2.0-7.[address] [facility] Comment on above: Performed By: #### 2 356009 #### [facility] [address] [place] [address] Neutrophils/100 WBC (Bld) 71.5 % Normal 36.0-75.[address] [facility] Comment on above: Performed By: #### 2 714201 #### [facility] [address] [place] [address] Platelet 324.0 E9/L Normal 150.0-500.[address] [facility] Comment on above: Performed By: #### 2 [id number] #### [facility] [address] [place] [address] Platelet mean volume (Bld) [Entitic vol] 7.6 fL Normal 6.4-10.[address] [facility] Comment on above: Performed By: #### 2 [id number] #### [facility] [address] [place] [address] RBC (Bld) [#/Vol] 3.8 E12/L Low 4.3-5.[address] [facility] Comment on above: Performed By: #### 2 318252 #### [facility] [address] [place] [address] WBC corrected for nucl RBC Auto (Bld) [#/Vol] 5.2 E9/L Normal 4.0-11.[address] [facility] Comment on above: Performed By: #### 2 [id number] #### [facility] [address] [place] [address] CHEMISTRYOrdered By: SYSTEM SYSTEM on 08-21-2024 Albumin [Mass/Vol] 4.1 g/dL Normal 3.3 - 5.0 gm/dL [facility] Albumin/Globulin [Mass ratio] 1.4 {ratio} Normal 1.1 - 2.2 [facility] ALP [Catalytic activity/Vol] 40 [iU]/d Normal 21 - 98 Int._Unit/L [facility] ALT No additional P-5'-P [Catalytic activity/Vol] 16 [iU]/d Normal 6 - 46 Int._Unit/L [facility] Anion gap [Moles/Vol] 11 mmol/L Normal 6 - 16 mEq/L R [facility] Chem AST [Catalytic activity/Vol] 18 [iU]/d Normal 5 - 43 Int._Unit/L [facility] Bilirubin [Mass/Vol] 0.5 mg/dL Normal 0.0 - 1 .1 mg/dL [facility] Calcium [Mass/Vol] 9.3 mg/dL Normal 8.9 - 11. 1 mg/dL [facility] Chloride [Moles/Vol] 102 mmol/L Normal 101 - 1 11 mmol/L [facility] CO2 [Moles/Vol] 28 mmol/L Normal 21 - 31 mmol/L [facility] Creatinine [Mass/Vol] 1.2 mg/dL Normal 0.5 - 1.3 mg/dL [facility] eGFR 62 mL/min/1.73 m2 Normal >=59mL/min /1 .73 m2 [facility] Ferritin [Mass/Vol] 448 ng/mL High 24 - 336 ng/mL [facility] Globulin (S) [Mass/Vol] 2.9 g/dL Normal 1.4 - 4.0 gm/dL [facility] Glucose [Mass/Vol] 80 mg/dL Normal 55 - 199 mg/dL [facility] Iron [Mass/Vol] 76 ug/dL Normal 35 - 153 mcg/dL [facility] Iron binding capacity [Mass/Vol] 455 ug/dL High 250 - 400 mcg/dL [facility] Iron saturation [Mass fraction] 17 % Low 20 - 50 % [facility] Potassium [Moles/Vol] 4.0 mmol/L Normal 3.5 - 5.3 mmol/L [facility] Protein [Mass/Vol] 7.0 g/dL Normal 6.0 - 7.8 gm/dL [facility] Sodium [Moles/Vol] 137 mmol/L Normal 135 - 145 mmol/L [facility] Transferrin [Mass/Vol] 325 mg/dL Normal 200 - 370 mg/dL [facility] Urea nitrogen [Mass/Vol] 17 mg/dL Normal 5 - 21 mg/dL [facility] Urea nitrogen/Creatinine [Mass ratio] 14 mg/mg Normal 10 - 20 [facility] CMPon 08-21-2024 Albumin [Mass/Vol] 4.1 g/dL Normal 3.3-5.[address] [facility] Comment on above: Performed By: #### 2 [id number] #### [facility] [address] [place] [address] Albumin/Globulin (S) [Mass conc ratio] 1.4 Normal 1.1-2.[address] [facility] Comment on above: Performed By: #### 2 [id number] #### [facility] [address] [place] [address] ALP [Catalytic activity/Vol] 40 Int._Unit/L Normal 21-[address] [facility] Comment on above: Performed By: #### 2 [id number] #### [facility] [address] [place] [address] ALT No additional P-5'-P [Catalytic activity/Vol] 16 Int._Unit/L Normal 6-[address] [facility] Comment on above: Performed By: #### 2 [id number] #### [facility] [address] [place] [address] Anion gap [Moles/Vol] 11 mmol/L Normal 6-16 [facility] Comment on above: Performed By: #### 2 654103 #### [facility] [address] [place] [address] AST [Catalytic activity/Vol] 18 Int._Unit/L Normal 5-[address] [facility] Comment on above: Performed By: #### 2 138178 #### [facility] [address] [place] [address] Bilirubin [Mass/Vol] 0.5 mg/dL Normal 0.0-1.1 [facility] Comment on above: Performed By: #### 2 [id number] #### [facility] [address] [place] [address] Calcium [Mass/Vol] 9.3 mg/dL Normal 8.9-11.[address] [facility] Comment on above: Performed By: #### 2 879267 #### [facility] [address] [place] [address] Chloride [Moles/Vol] 102 mmol/L Normal 101-111 [facility] Comment on above: Performed By: #### 2 464439 #### [facility] [address] [place] [address] CO2 [Moles/Vol] 28 mmol/L Normal 21-31 [facility] Comment on above: Performed By: #### 2 281482 #### [facility] [address] [place] [address] Creatinine [Mass/Vol] 1.2 mg/dL Normal 0.5-1.3 [facility] Comment on above: Performed By: #### 2 329236 #### [facility] [address] [place] [address] Globulin (S) [Mass/Vol] 2.9 g/dL Normal 1.4-4.[address] [facility] Comment on above: Performed By: #### 2 910758 #### [facility] [address] [place] [address] Glucose [Mass/Vol] 80 mg/dL Normal 55-[address] [facility] Comment on above: Performed By: #### 2 173628 #### [facility] [address] [place] [address] Potassium [Moles/Vol] 4.0 mmol/L Normal 3.5-5.3 [facility] Comment on above: Performed By: #### 2 759252 #### [facility] [address] [place] [address] Protein [Mass/Vol] 7.0 g/dL Normal 6.0-7.[address] [facility] Comment on above: Performed By: #### 2 693958 #### [facility] [address] [place] [address] Sodium [Moles/Vol] 137 mmol/L Normal 135-[address] [facility] Comment on above: Performed By: #### 2 254964 #### [facility] [address] [place] [address] Urea nitrogen [Mass/Vol] 17 mg/dL Normal 5-[address] [facility] Comment on above: Performed By: #### 2 [id number] #### [facility] [address] [place] [address] Urea nitrogen/Creatinine [Mass ratio] 14 No Units Normal 10-[address] [facility] Comment on above: Performed By: #### 2 [id number] #### [facility] [address] [place] [address] Ferritinon 08-21-2024 Ferritin [Mass/Vol] 448 ng/mL High 24-336 [facility] Comment on above: Performed By: #### 2 [id number] #### [facility] [address] [place] [address] HEMATOLOGYOrdered By: SYSTEM SYSTEM on 08-21-2024 Basophils/100 WBC (Bld) 0.5 % Normal 0.0 - 2.0 % [facility] Basophils/Leukocytes Auto (Bld) [Pure # fraction] 0.0 E9/L Normal 0.0 - 0.2 E9/L [facility] Eosinophils (Bld) [#/Vol] 0.1 E9/L Normal 0.0 - 0.5 E9/L [facility] Eosinophils/100 WBC (Bld) 2.5 % Normal 0.0 - 8.0 % [facility] Erythrocyte distribution width (RBC) [Ratio] 15.7 % High 10.9 - 14.2 % [facility] Hematocrit (Bld) [Volume fraction] 36.6 % Low 37.7 - 49.0 % [facility] Hemoglobin (Bld) [Mass/Vol] 12.0 g/dL Low 13.5 - 17.5 gm/dL [facility] Lymphocytes (Bld) [#/Vol] 0.8 E9/L Low 1.0 - 4.0 E9/L [facility] Lymphocytes/100 WBC (Bld) 14.7 % Normal 14.0 - 50.0 % [facility] MCH (RBC) [Entitic mass] 31.6 pg Normal 27.0 - 34.0 pg [facility] MCHC (RBC) [Mass/Vol] 32.7 g/dL Normal 31.4 - 36.0 gm/dL [facility] MCV (RBC) [Entitic vol] 96.8 fL Normal 80.0 - 100.0 fL [facility] Monocytes (Bld) [#/Vol] 0.6 E9/L Normal 0.2 - 1.0 E9/L [facility] Monocytes/100 WBC (Bld) 10.8 % Normal 4.0 - 14.0 % [facility] Neutrophils (Bld) [#/Vol] 3.7 E9/L Normal 2.0 - 7.5 E9/L [facility] Neutrophils/100 WBC (Bld) 71.5 % Normal 36.0 - 75.0 % [facility] Platelet 324.0 E9/L Normal 150.0 - 500.0 E9/L [facility] Platelet mean volume (Bld) [Entitic vol] 7.6 fL Normal 6.4 - 10.8 fL [facility] RBC (Bld) [#/Vol] 3.8 E12/L Low 4.3 - 5.9 E12/L [facility] WBC corrected for nucl RBC Auto (Bld) [#/Vol] 5.2 E9/L Normal 4.0 - 11.0 E9/L [facility] Ironon 08-21-2024 Iron [Mass/Vol] 76 microgram/dL Normal 35-153 [facility] Comment on above: Performed By: #### 2 [id number] #### [facility] [address] [place] [address] Iron Saturationon 08-21-2024 Iron binding capacity [Mass/Vol] 455 microgram/dL High 250-[address] [facility] Comment on above: Performed By: #### 2 [id number] #### [facility] [address] [place] [address] Iron saturation [Mass fraction] 17 % Low 20-[address] [facility] Comment on above: Performed By: #### 2 [id number] #### [facility] [address] [place] [address] Transferrinon 08-21-2024 Transferrin [Mass/Vol] 325 mg/dL Normal 200-[address] [facility] Comment on above: Performed By: #### 2 686203 #### [facility] [address] [place] [address] eGFRon 08-21-2024 eGFR 62 mL/min/1.73 m2 Normal >=[address] [facility] Comment on above: Performed By: #### 1 [id number] #### [facility] [address] [place] [address] No Panel Informationon 08-16 Type of biopsy: tangential Informed consent: discussed and consent obtained Informed consent comment: The risks and benefits of the biopsy were discussed. Risks include but are not limited to bleeding, infection, scarring, pain, and nerve damage. An opportunity to ask questions prior to the procedure was permitted and all questions were answered. Patient was prepped and draped in usual sterile fashion: area cleansed with alcohol. Anesthesia: the lesion was anesthetized in a standard fashion Anesthetic: 1% lidocaine w/ epinephrine 1-100,000 buffered w/ 8.4% NaHCO3 Instrument used: DermaBlade Hemostasis achieved with: electrodesiccation Outcome: patient tolerated procedure well Outcome comment: The specimen was placed in a prelabeled formalin container to be sent for pathology Post-procedure details: sterile dressing applied and wound care instructions given Post-procedure details comment: Emphasized need to contact clinic for any signs of infection, uncontrollable bleeding, or complications. Dressing type: bandage Additional details: Photo taken Amount of lidocaine used: 1.0 cc Replaced by [facility] Type of biopsy: tangential Informed consent: discussed and consent obtained Informed consent comment: The risks and benefits of the biopsy were discussed. Risks include but are not limited to bleeding, infection, scarring, pain, and nerve damage. An opportunity to ask questions prior to the procedure was permitted and all questions were answered. Patient was prepped and draped in usual sterile fashion: area cleansed with alcohol. Anesthesia: the lesion was anesthetized in a standard fashion Anesthetic: 1% lidocaine w/ epinephrine 1-100,000 buffered w/ 8.4% NaHCO3 Instrument used: DermaBlade Hemostasis achieved with: electrodesiccation Outcome: patient tolerated procedure well Outcome comment: The specimen was placed in a prelabeled formalin container to be sent for pathology Post-procedure details: sterile dressing applied and wound care instructions given Post-procedure details comment: Emphasized need to contact clinic for any signs of infection, uncontrollable bleeding, or complications. Dressing type: bandage Additional details: Photo taken Amount of lidocaine used: 1 cc [facility]RENA PERAZ[facility] ([id number]) 1945 M Date Time Provider Department 08/15/24 ANGELI AU During your visit today, we recorded the following information about you: Shayy Alonso RN 08/15/2024 4:43 PM Signed Pt wanted this message sent to both Dr. Au and Moni Mandujano CNP Pt had a cardioversion recently (performed by Dr. Calles) Just before the procedure, pt says Dr. Calles made a comment that he needs to be looking for a Process Controls Technician that does ablations and that he thought this pt was about due for another one (Last one was approx 20 years ago) With that being said; pt reports he is now back in Afib again as of Tuesday He had flown to [place] and before his flight back on Tuesday - he checked his [employer] and it showed Afib Continues to show Afib His B/P's are around 140's systolic HR's in the high 70's Today 148/70, 70 Compliant with all meds Pt feels this is a comment about an ablation should truly be considered Asking you to think about this and get back to him Also: Pt isn't coming in to see an JAYDEN until September and Dr. Au until Nov He feels this is too long to wait to be seen He's not in any acute distress right now; but wanted to be proactive Please follow up with him thanks [phone] x okay / prefers PHONE CALLS instead of Moni Dunn APRN.CASHIERS SUPERVISOR 08/15/2024 4:55 PM Signed Will review patient with Dr. Pino upon his return 08/20/24. Further recommendations to be made at that time. Thank you Moni Mandujano APRN.CASHIERS SUPERVISOR Allergies As of Date: 08/15/2024 (No Known Allergies) Date Reviewed: 07/19/2024 Reviewed by: Brendan Little, RN - Fully Assessed Reason for Visit: message from patient [Other] Prescriptions as of 08/15/2024 - atorvastatin (LIPITOR) 40 mg tablet Take 1 tablet by mouth once daily. Need appointment for future refills - spironolactone (ALDACTONE) 25 mg tablet Take 1 tablet by mouth once daily. - amLODIPine (NORVASC) 5 mg tablet Take 1 tablet by mouth once daily. - apixaban (ELIQUIS) 5 mg tab(s) Take 1 tablet by mouth two times a day. - escitalopram oxalate (LEXAPRO) 5 mg tablet Take 5 mg by mouth once daily. - losartan (COZAAR) 50 mg tablet Take 2 tablets by mouth once daily. - amiodarone (PACERONE) 200 mg tablet 200 mg 3 times daily for 1 week followed by 200 mg 2 times daily for 3 weeks followed by 200 mg daily thereafter - bisoprolol (ZEBETA) 5 mg tablet Take 1 tablet by mouth two times a day. - furosemide (LASIX) 20 mg tablet Take 1 tablet by mouth once daily. Can take additional 20 mg as needed for swelling or >2 lb weight gain overnight. - omega-3/dha/epa/fish oil (OMEGA-3 ORAL) Take by mouth once daily. - acetaminophen 650 mg CR tablet Every 12 hours - amoxicillin (AMOXIL) 500 mg capsule TAKE 2 CAPSULES BY MOUTH now then TAKE 1 CAPSULE BY MOUTH EVERY 6 HOURS UNTIL GONE - ketoconazole (NIZORAL) 2 % cream - DULoxetine (CYMBALTA) 60 mg capsule Take 1 capsule by mouth every afternoon. - fluticasone-vilanterol (BREO ELLIPTA) 100-25 mcg/dose inhaler INHALE [...] (FLONASE) 50 mcg/actuation nasal spray Use 1 [place] in each nostril once daily. - coenzyme Q10 100 mg cap Take 100 mg by mouth once daily. - albuterol HFA (PROAIR HFA) 90 mcg/actuation inhaler Inhale 2 Puffs as instructed every 6 hours as needed. - Glucosamine-Chondroit- Vit C-Mn 500-400 mg cap Take 1 capsule by mouth twice daily. Meds Comments as of 09/01/2016: Omeprazole is taken prn Problem List As Of Date 08/15/2024 Noted Resolved PAF (paroxysmal atrial fibrillation) (FORMERLY [facility]) [I48* Former smoker [Z87.891] Obstructive lung disease [J44.9] Hyperlipemia [E78.5] PUD (peptic ulcer disease) [K27.9] GERD (gastroesophageal reflux disease) [K21.9] Carpal tunnel syndrome [G56.00] Hx of neck disorder [Z87.39] Rotator cuff tear [M75.100] Arthritis [M19.90] Depressi (more content not included)... Normal [facility] CNPNon 08-14-2024 CNPN Telephone (OMID) IRENA PERAZA ([id number]) 1945 M Date Time Provider Department 08/14/24 ALPA RAM JENNIFERCA During your visit today, we recorded the following information about you: Mookie Ag LPN 08/14/2024 5:05 PM Signed Called and left patient a message for patient to give office a call back regarding his spine procedure on 08/28/24. Mookie Ag LPN 08/15/2024 11:34 AM Signed Phoned patient and spoke with patient to confirm appointment for Irena Peraza for spine procedure on 08/28/24. Patient notified that Christy will call patient the night before with the time to arrive for injection. Patient verbalized understanding of the following: -Provided education on spine procedure and answered questions related to spine injection procedure. -Interactive Media Marketing Specialist is needed to drive patient home: Yes, patient aware entry driver operator will need to stay for procedure and drive him home. -NPO 6 hours prior to appointment, ok to take morning medications with sip of water. -Not to take any pain medications the day of injection to see how well injection works. -Do not take any NSAIDs/anti-inflammato concepción (mobic, ibuprofen, advil, aleve, etc) the day of procedure for all lumbar, hip, and sacroiliac joint procedures. Hold NSAIDs for 1 day prior to procedure for cervical cases. Allergies reviewed: Yes Allergy to IV contrast dye or steroids: No Taking any antiplatelet/anticoagu lant (blood thinners): Chantell, patient aware he can continue his medications as normal. Taking aspirin 81mg: No Any open wounds/sores?: No Taking Antibiotics?: No Patient given number [phone], spine injections schedulers, if there is any need to reschedule/ change appointment during normal business hours. Active MyChart users were informed to read MyChart procedure instructions prior to appointment. AMBULATORY PATIENT EDUCATION TOPIC: SPINE INJECTION PROCEDURE, PRE-INJECTION AND POST- INJECTION INSTRUCTIONS READINESS TO LEARN COGNITIVE ABILITY: ALERT AND ORIENTED MOTIVATION TO LEARN: Eager FAMILY SUPPORT: Unable to assess - Family not present INSTRUCTION PROVIDED TO: Patient PATIENT LEARNS BEST BY: INDIVIDUAL INSTRUCTION FACTORS AFFECTING LEARNING: None PHYSICAL LIMITATIONS AFFECTING LEARNING: None LEARNING RESPONSE METHOD OF INSTRUCTION: TEACH BACK AND INDIVIDUAL INSTRUCTION PATIENT / FAMILY RESPONSE: VERBALIZED UNDERSTANDING OF PRE AND POST INJECTION INSTRUCTIONS Allergies As of Date: 08/14/2024 (No Known Allergies) Date Reviewed: 07/19/2024 Reviewed by: Brendan Little RN - Fully Assessed Reason for Visit: Preperations for Procedure Call [Other] Prescriptions as of 08/15/2024 - atorvastatin (LIPITOR) 40 mg tablet Take 1 tablet by mouth once daily. Need appointment for future refills - spironolactone (ALDACTONE) 25 mg tablet Take 1 tablet by mouth once daily. - amLODIPine (NORVASC) 5 mg tablet Take 1 tablet by mouth once daily. - apixaban (ELIQUIS) 5 mg tab(s) Take 1 tablet by mouth two times a day. - escitalopram oxalate (LEXAPRO) 5 mg tablet Take 5 mg by mouth once daily. - losartan (COZAAR) 50 mg tablet Take 2 tablets by mouth once daily. - amiodarone (PACERONE) 200 mg tablet 200 mg 3 times daily for 1 week followed by 200 mg 2 times daily for 3 weeks followed by 200 mg daily thereafter - bisoprolol (ZEBETA) 5 mg tablet Take 1 tablet by mouth two times a day. - furosemide (LASIX) 20 mg tablet Take 1 tablet by mouth once daily. Can take additional 20 mg as needed for swelling or >2 lb weight gain overnight. - omega-3/dha/epa/fish oil (OMEGA-3 ORAL) Take by mouth once daily. - acetaminophen 650 mg CR tablet Every 12 hours - amoxicillin (AMOXIL) 500 mg capsule TAKE 2 CAPSULES BY MOUTH now then TAKE 1 CAPSULE BY MOUTH EVERY 6 HOURS UNTIL GONE - ketoconazole (NIZORAL) 2 % cream - DULoxetine (CYMBALTA) 60 mg capsule Take 1 capsule by mouth every afternoon. - fluticasone-vilanterol (BREO ELLIPTA) 100-25 mcg/dose inhaler INHALE [...] 100 mg tablet Take 100 mg by m (more content not included)... Normal [facility] Kassie 08-13-2024 CHA Telephone (SPNSMN) STUIRENA Rao ([id number]) 1945 M Date Time Provider Department 08/13/24 ALPA RAM SPNSMN During your visit today, we recorded the following information about you: Mookie Ag LPN 08/13/2024 12:28 PM Signed [facility]ask message sent to patient with Procedure Instructions. Allergies As of Date: 08/13/2024 (No Known Allergies) Date Reviewed: 07/19/2024 Reviewed by: Brendan Little RN - Fully Assessed Reason for Visit: Preperations for Procedure [Other] Cmt: Omar Prescriptions as of 08/13/2024 - atorvastatin (LIPITOR) 40 mg tablet Take 1 tablet by mouth once daily. Need appointment for future refills - spironolactone (ALDACTONE) 25 mg tablet Take 1 tablet by mouth once daily. - amLODIPine (NORVASC) 5 mg tablet Take 1 tablet by mouth once daily. - apixaban (ELIQUIS) 5 mg tab(s) Take 1 tablet by mouth two times a day. - escitalopram oxalate (LEXAPRO) 5 mg tablet Take 5 mg by mouth once daily. - losartan (COZAAR) 50 mg tablet Take 2 tablets by mouth once daily. - amiodarone (PACERONE) 200 mg tablet 200 mg 3 times daily for 1 week followed by 200 mg 2 times daily for 3 weeks followed by 200 mg daily thereafter - bisoprolol (ZEBETA) 5 mg tablet Take 1 tablet by mouth two times a day. - furosemide (LASIX) 20 mg tablet Take 1 tablet by mouth once daily. Can take additional 20 mg as needed for swelling or >2 lb weight gain overnight. - omega-3/dha/epa/fish oil (OMEGA-3 ORAL) Take by mouth once daily. - acetaminophen 650 mg CR tablet Every 12 hours - amoxicillin (AMOXIL) 500 mg capsule TAKE 2 CAPSULES BY MOUTH now then TAKE 1 CAPSULE BY MOUTH EVERY 6 HOURS UNTIL GONE - ketoconazole (NIZORAL) 2 % cream - DULoxetine (CYMBALTA) 60 mg capsule Take 1 capsule by mouth every afternoon. - fluticasone-vilanterol (BREO ELLIPTA) 100-25 mcg/dose inhaler INHALE [...] (FLONASE) 50 mcg/actuation nasal spray Use 1 [place] in each nostril once daily. - coenzyme Q10 100 mg cap Take 100 mg by mouth once daily. - albuterol HFA (PROAIR HFA) 90 mcg/actuation inhaler Inhale 2 Puffs as instructed every 6 hours as needed. - Glucosamine-Chondroit- Vit C-Mn 500-400 mg cap Take 1 capsule by mouth twice daily. Meds Comments as of 09/01/2016: Omeprazole is taken prn Problem List As Of Date 08/13/2024 Noted Resolved PAF (paroxysmal atrial fibrillation) (HCC) [...] Low back pain, unspecified [M54.50] 01/12/2022 Diagnosed: (more content not included)... Normal [facility] Kassie 08-07-2024 HAYDER Telephone (TRAVIS) IRENA PERAZA ([id number]) 1945 M Date Time Provider Department 08/07/24 MONI MANDUJANO During your visit today, we recorded the following information about you: Moni Mandujano APRN.CHA 08/07/2024 3:47 PM Signed Can we please move this patients ordered echo up to prior to appt with Teresa 10/19/24? Thanks Moni Mandujano APRN.CASHIERS SUPERVISOR August 07, 2024 3:45 PM Amanda Horn 08/08/2024 11:59 AM Signed Spoke with patient - rescheduled echo to be done prior to appointment with Teresa on 10/19. Allergies As of Date: 08/07/2024 (No Known Allergies) Date Reviewed: 07/19/2024 Reviewed by: Brendan Little RN - Fully Assessed Prescriptions as of 08/08/2024 - atorvastatin (LIPITOR) 40 mg tablet Take 1 tablet by mouth once daily. Need appointment for future refills - spironolactone (ALDACTONE) 25 mg tablet Take 1 tablet by mouth once daily. - amLODIPine (NORVASC) 5 mg tablet Take 1 tablet by mouth once daily. - apixaban (ELIQUIS) 5 mg tab(s) Take 1 tablet by mouth two times a day. - escitalopram oxalate (LEXAPRO) 5 mg tablet Take 5 mg by mouth once daily. - losartan (COZAAR) 50 mg tablet Take 2 tablets by mouth once daily. - amiodarone (PACERONE) 200 mg tablet 200 mg 3 times daily for 1 week followed by 200 mg 2 times daily for 3 weeks followed by 200 mg daily thereafter - bisoprolol (ZEBETA) 5 mg tablet Take 1 tablet by mouth two times a day. - furosemide (LASIX) 20 mg tablet Take 1 tablet by mouth once daily. Can take additional 20 mg as needed for swelling or >2 lb weight gain overnight. - omega-3/dha/epa/fish oil (OMEGA-3 ORAL) Take by mouth once daily. - acetaminophen 650 mg CR tablet Every 12 hours - amoxicillin (AMOXIL) 500 mg capsule TAKE 2 CAPSULES BY MOUTH now then TAKE 1 CAPSULE BY MOUTH EVERY 6 HOURS UNTIL GONE - ketoconazole (NIZORAL) 2 % cream - DULoxetine (CYMBALTA) 60 mg capsule Take 1 capsule by mouth every afternoon. - fluticasone-vilanterol (BREO ELLIPTA) 100-25 mcg/dose inhaler INHALE [...] (FLONASE) 50 mcg/actuation nasal spray Use 1 [place] in each nostril once daily. - coenzyme Q10 100 mg cap Take 100 mg by mouth once daily. - albuterol HFA (PROAIR HFA) 90 mcg/actuation inhaler Inhale 2 Puffs as instructed every 6 hours as needed. - Glucosamine-Chondroit- Vit C-Mn 500-400 mg cap Take 1 capsule by mouth twice daily. Meds Comments as of 09/01/2016: Omeprazole is taken prn Problem List As Of Date 08/07/2024 Noted Resolved PAF (paroxysmal atrial fibrillation) (FORMERLY [facility]) [I48* Former smoker [Z87.891] Obstructive lung disease [...] Z*09/06/2018 Gastrointestinal hemorrhage [K92.2] 05/18/2022 IRB 21-1031 ROSARIO (more content not included)... Normal [facility] Kassie 07-30-2024 CNPN Telephone (FVPRAD) IRENA PERAZA ([id number]) 1945 M Date Time Provider Department 07/30/24 MONI MANDUJANO FVPRAD During your visit today, we recorded the following information about you: Moni Mandujano APRN.CNP 07/30/2024 4:14 PM Signed Patient is s/p DCCV, on Amiodarone. Can we please arrange for EP follow up with Dr. Pino or JAYDEN in 4-6 weeks? Thanks Moni Mandujano APRN.CHA Alicia Segura 08/02/2024 12:32 PM Signed Scheduled patient for first available 10/19 and added to wait list Allergies As of Date: 07/30/2024 (No Known Allergies) Date Reviewed: 07/19/2024 Reviewed by: Brendan Little RN - Fully Assessed Reason for Visit: Appointment [186] Prescriptions as of 08/02/2024 - atorvastatin (LIPITOR) 40 mg tablet Take 1 tablet by mouth once daily. Need appointment for future refills - spironolactone (ALDACTONE) 25 mg tablet Take 1 tablet by mouth once daily. - amLODIPine (NORVASC) 5 mg tablet Take 1 tablet by mouth once daily. - apixaban (ELIQUIS) 5 mg tab(s) Take 1 tablet by mouth two times a day. - escitalopram oxalate (LEXAPRO) 5 mg tablet Take 5 mg by mouth once daily. - losartan (COZAAR) 50 mg tablet Take 2 tablets by mouth once daily. - amiodarone (PACERONE) 200 mg tablet 200 mg 3 times daily for 1 week followed by 200 mg 2 times daily for 3 weeks followed by 200 mg daily thereafter - bisoprolol (ZEBETA) 5 mg tablet Take 1 tablet by mouth two times a day. - furosemide (LASIX) 20 mg tablet Take 1 tablet by mouth once daily. Can take additional 20 mg as needed for swelling or >2 lb weight gain overnight. - omega-3/dha/epa/fish oil (OMEGA-3 ORAL) Take by mouth once daily. - acetaminophen 650 mg CR tablet Every 12 hours - amoxicillin (AMOXIL) 500 mg capsule TAKE 2 CAPSULES BY MOUTH now then TAKE 1 CAPSULE BY MOUTH EVERY 6 HOURS UNTIL GONE - ketoconazole (NIZORAL) 2 % cream - DULoxetine (CYMBALTA) 60 mg capsule Take 1 capsule by mouth every afternoon. - fluticasone-vilanterol (BREO ELLIPTA) 100-25 mcg/dose inhaler INHALE [...] (FLONASE) 50 mcg/actuation nasal spray Use 1 [place] in each nostril once daily. - coenzyme Q10 100 mg cap Take 100 mg by mouth once daily. - albuterol HFA (PROAIR HFA) 90 mcg/actuation inhaler Inhale 2 Puffs as instructed every 6 hours as needed. - Glucosamine-Chondroit- Vit C-Mn 500-400 mg cap Take 1 capsule by mouth twice daily. Meds Comments as of 09/01/2016: Omeprazole is taken prn Problem List As Of Date 07/30/2024 Noted Resolved PAF (paroxysmal atrial fibrillation) (HCC) [...] Z*09/06/2018 Gastrointestinal hemorrhage [K92.2] 05/18/2022 IRB 21-1031 W (more content not included)... 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 Calles for an EKG post DCCV on 07/19/24 Patient taking medication as prescribed: Yes Took medication today: Yes VISIT VITAL SIGNS: BP 117/71 HR 70 99% RA Physician/JAYDEN notification and treatment plan: Showed EKG to Dr. Bunch he states it looks good NSR Nursing Plan: Patient education: Continue medications as prescribed and monitor with Edwarddironnie at home , Patient instructed to call and update the office if there are any changes in current condition. EKG has been uploaded to [facility] Patient verbalizes understanding of the plan: Yes. Patient's questions were addressed during the visit today: Yes Bee Martinez MA July 26, 2024 10:41 AM Referring Provider: MOUSTAPHA MELVIN [[id number]] Allergies As of Date: 07/26/2024 (No Known Allergies) Date Reviewed: 07/19/2024 Reviewed by: Brendan Little RN - Fully Assessed Visit Diagnosis:PAF (paroxysmal atrial fibrillation) (HCC) [I48.0] Order(s):ECG COMPLETE [ECG01] Order #: [id number] Prescriptions as of 07/26/2024 - spironolactone (ALDACTONE) 25 mg tablet Take 1 tablet by mouth once daily. - amLODIPine (NORVASC) 5 mg tablet Take 1 tablet by mouth once daily. - apixaban (ELIQUIS) 5 mg tab(s) Take 1 tablet by mouth two times a day. - escitalopram oxalate (LEXAPRO) 5 mg tablet Take 5 mg by mouth once daily. - losartan (COZAAR) 50 mg tablet Take 2 tablets by mouth once daily. - amiodarone (PACERONE) 200 mg tablet 200 mg 3 times daily for 1 week followed by 200 mg 2 times daily for 3 weeks followed by 200 mg daily thereafter - bisoprolol (ZEBETA) 5 mg tablet Take 1 tablet by mouth two times a day. - furosemide (LASIX) 20 mg tablet Take 1 tablet by mouth once daily. Can take additional 20 mg as needed for swelling or >2 lb weight gain overnight. - atorvastatin (LIPITOR) 40 mg tablet Take 1 tablet by mouth once daily. Need appointment for future refills - omega-3/dha/epa/fish oil (OMEGA-3 ORAL) Take by mouth once daily. - acetaminophen 650 mg CR tablet Every 12 hours - amoxicillin (AMOXIL) 500 mg capsule TAKE 2 CAPSULES BY MOUTH now then TAKE 1 CAPSULE BY MOUTH EVERY 6 HOURS UNTIL GONE - ketoconazole (NIZORAL) 2 % cream - DULoxetine (CYMBALTA) 60 mg capsule Take 1 capsule by mouth every afternoon. - fluticasone-vilanterol (BREO ELLIPTA) 100-25 mcg/dose inhaler INHALE [...] (FLONASE) 50 mcg/actuation nasal spray Use 1 [place] in each nostril once daily. - coenzyme Q10 100 mg cap Take 100 mg by mouth once daily. - albuterol HFA (PROAIR HFA) 90 mcg/actuation inhaler Inhale 2 Puffs as instructed every 6 hours as needed. - Glucosamine-Chondroit- Vit C-Mn 500-400 mg cap Take 1 capsule by mouth twice daily. Meds Comments as of 09/01/2016: Omeprazole is taken prn Problem List As Of Date 07/26/2024 Noted Resolved PAF (paroxysmal atrial fibrillation) ([facility]) [I48* Former smoker [Z87.891] Obstructive lung disease [J44.9] Hyperlipemia [E78.5] PUD (peptic ulcer disease) [K27.9] GERD (gastroesophageal reflux disease) [K21.9] Carpal tunnel syndrome [G56.00] Hx of neck disorder [Z87.39] Rotator cuff tear [M75.100] Arthritis [M19.90] Depression [F32.A] Alcohol use LPRD (laryngopharyngeal reflux disease) [K21.9] 12/30/2011 Chronic throat clearing [R09.89] 12/30/2011 (more content not included)... Normal [facility] ECG COMPLETEon 07-26-2024 ECG COMPLETE Ventricular Rate : 6 6 BPM Atrial Rate : 66 BPM P-R Interval : 236 ms QRS Duration : 84 ms Q-T Interval : 410 ms QTC Calculation(Bazett) : 429 ms Calculated P Orange : 54 degrees Calculated R Orange : -6 degrees Calculated T Orange : 36 degrees SINUS RHYTHM WITH SINUS ARRHYTHMIA WITH 1ST DEGREE AV BLOCK OTHERWISE NORMAL ECG Confirmed by TRACEY LOZANO MD ([id number]) on 07/28/2024 2:12:56 PM NAME : IRENA PERAZA PID : [id number] : 1945 Gender : Male Race : ORD : [id number] Procedure Date : Jul 26 2024 10:47:14 Edit Date : Jul 28 2024 14:12:58 Diagnosis: SINUS RHYTHM WITH SINUS ARRHYTHMIA WITH 1ST DEGREE AV BLOCK OTHERWISE NORMAL ECG Confirmed by TRACEY LOZANO MD ([id number]) on 07/28/2024 2:12:56 PM Test Reason : Location : 145 : LOCARD Overread By : TRACEY LOZANO MD Edited By : TRACEY LOZANO MD Referred By : , Acquired by : , Normal [facility] [id number] 07-19-2024 [id number] HNO ID: [id number] Author: BRENDAN LITTLE RN Service: ? Author Type: Registered Nurse Type: [id number] Filed: 07/19/2024 09:56 Note Text: Patient Education Discharge Instructions for Cardioversion Your healthcare provider performed a procedure called cardioversion. Your healthcare provider used a controlled electric shock or a medicine to briefly stop all electrical activity in your heart. This helped restore your heart?s normal rhythm. Here are some instructions to follow while you recover. Home care Because cardioversion typically requires sedation, you won't be able to drive home. You will need a ride. Wait at least 24 hours before driving a car or operating heavy machinery after receiving sedating medicines. Don?t be alarmed if the skin on your chest is irritated or feels like it is sunburned. Your healthcare provider may prescribe a soothing lotion to relieve this discomfort. These minor symptoms will go away in a few days. Ask your healthcare provider about medicines to keep your heart rhythm steady. If you were prescribed medicine, take it as instructed by your healthcare provider. Don?t skip doses or take double doses. Cardioversion requires blood thinners for at least 4 weeks to prevent a delayed risk of stroke when treating atrial fibrillation or atrial flutter. Be sure you discuss which medicine you are taking to prevent stroke. Ask when you need to have your medicine levels checked, and whether you may be able to stop taking it in the future or whether it is recommended that you take it for life. Some of these blood-thinning medicines will have the dose adjusted, and interact with other medicines or foods. Your healthcare team will give you full instructions on what to watch out for. Report bleeding or symptoms of stroke immediately to your healthcare team and seek emergency medical attention. Learn to take your own pulse. Keep a record of your results. Ask your healthcare provider when you should seek emergency medical attention. He or she will tell you which pulse rate reading is dangerous. Keep in mind this procedure may need to be repeated if the abnormal heart rhythm returns. After the procedure, your healthcare provider will tell you if the treatment worked or if you will need further treatments or medication. Follow-up care Make a follow-up appointment, or as directed by our staff. When to call your healthcare provider Call 911 right away if you have: Chest pain Shortness of breath Loss of vision, speech, or strength or coordination in any body part Otherwise, call your healthcare provider immediately if you have: Fainting, dizzy, or lightheaded Chest pain with increased activity Irregular heartbeat or fast pulse Bleeding issues from blood-thinning medicines Heart-healthy diet You must carefully read the Consumer Information Use and Disclaimer below in order to understand and correctly use this information The Basics Written by the doctors and editors at [facility] Why do I need a heart-healthy diet? When you eat a heart-healthy diet, you lower your risk of getting heart disease or having a stroke. You might also lower your blood pressure. A heart-healthy diet includes lots of fruits, vegetables, and whole grains. It's important to get plenty of fiber. Eating a heart-healthy diet also means limiting salt (also called sodium ), cholesterol, and unhealthy fats. A healthy diet also provides the right amount of calories. Just eating healthy foods might not help control your weight if you eat too many calories. If you have excess body weight, your doctor or nurse will recommend you try to lose weight. They can help you do this in a healthy way. What can I eat and drink on a heart-healthy diet? Choose healthy foods (figure 1). The specific amount of each food type you should eat depends on your age, weight, and sex. But your eating pattern, or the types of foods in your diet, are also important. Some examples: ? Grains - Try to eat 6 to 8 servings of whole-grain, high-fiber foods each day. These include whole-grain breads, cereals, brown rice, and pasta. ? Fruits and vegetables - Try to eat 4 to 5 servings each day. Eat many kinds and colors of fruits and vegetables. If possible, eat fresh fruits and vegetables. If that is not possible, eat frozen ones. If you only have access to canned fruits or vegetables, check the labels and look for products without added salt or sugar. ? Dairy - Try to have 3 to 4 servings each day. Choose low-fat (1 percent) or fat-free milk and other dairy products. ? Protein - Try to eat low-fat or lean meats that are baked or broiled, like chicken and turkey without the skin. Eat less red meat, and avoid processed meat such as pre-packaged sausage and hot dogs. Eat more fish, egg whites, and beans instead. Try to eat oily fish at least 2 times a week, such as tuna, salmon, and mackerel. Dried peas, beans, (more content not included)... [facility] ANES POSTPROC EVALon 025 ANES POSTPROC EVAL HNO ID: [id number] Author: HELADIO RIVERA MD Service: Anesthesiology Author Type: Anesthesiologist Type: Anesthesia Postprocedure Evaluation Filed: 07/19/2024 13:35 Note Text: POST ANESTHESIA EVALUATION NOTE : 1945 Procedure Summary Date: 07/19/24 Room / Location: AV ECHO / AV CATH Anesthesia Start: 920 Anesthesia Stop: 943 Procedure: CARDIOVERSION EXTERNAL ELECTIVE Diagnosis: Atrial fibrillation, unspecified type (HCC) (Atrial fibrillation, unspecified type (HCC) [I48.91]) Surgeons: Quiana Calles MD Responsible Provider: Heladio Rivera MD Anesthesia Type: general ASA Status: 3 Anesthesia Type: general Airway Type: supplemental O2 Last Vitals Vitals Value Taken Time BP 124/69 07/19/24 1030 Temp 36.1 ?C (97 ?F) 07/19/24 0951 HR SpO2 67 07/19/24 1037 Resp 21 07/19/24 1037 SpO2 95 % 07/19/24 1037 Vitals shown include unfiled device data. Post Anesthesia Patient Status Patient Evaluation: PACU. PACU/ICU Patient Condition: stable. Anticipated Disposition: phase 2 then home. Neurological Status: aware and responsive. Pulmonary Status: breathing comfortably on room air Airway Control: returned to baseline unsupported. Cardiovascular Status: stable. Pain Management: clinically adequate Postoperative Hydration: acceptable. Intraoperative Events: no significant anesthesia events Post Operative Nausea/Vomiting Status: no significant post operative nausea or vomiting Recommendation: continue current plan of care. Anesthesia Observations No Documentation SIGNATURE: Heladio Rivera MD PATIENT NAME: Irena Peraza DATE: July 19, 2024 TIME: 1:34 PM CSN: [id number] [facility] ANES PRE-OPon 07-19-2024 ANES PRE-OP HNO ID: [id number] Author: HELADIO RIVERA MD Service: Anesthesiology Author Type: Anesthesiologist Type: Anesthesia Preprocedure Evaluation Filed: 07/19/2024 09:05 Note Text: ANESTHESIOLOGY DAY OF SURGERY NOTE : 1945 Procedure Information Date/Time: 07/19/24929 Procedure: CARDIOVERSION EXTERNAL ELECTIVE Location: AV ECHO / AV CATH Surgeons: Quiana Calles MD Estimated body mass index is 30.78 kg/m? as calculated from the following: Height as of 07/17/24: 177.8 cm (5' 10 ). Weight as of 07/17/24: 97.3 kg (214 lb 8.1 oz). Most recent hematocrit and potassium results: Hematocrit 37.1 06/28/2024 Potassium 3.8 07/12/2024 Relevant Problems CARDIO (+) Acute on chronic diastolic congestive heart failure (HCC) (+) Atrial fibrillation (HCC) (+) Chronic diastolic congestive heart failure (HCC) (+) HTN (hypertension), benign (+) LBBB (left bundle branch block) (+) PAF (paroxysmal atrial fibrillation) (HCC) (+) Persistent atrial fibrillation (HCC) GI (+) GERD (gastroesophageal reflux disease) (+) PUD (peptic ulcer disease) NEURO-PSYCH (+) Hx of neck disorder Other (+) Arthritis (+) Osteoarthritis I - PHYSICAL EVALUATION AIRWAY Patient intubated: No. Tracheostomy tube not present Mallampati: II. TM distance: >3 FB. Neck ROM: full ROM without neurological symptoms. Mouth opening: adequate. Short neck: no. Thick neck: no II - ANESTHESIA PLAN ASA Score: 3 Anesthetic Plan: general Airway type: supplemental O2 The patient is not a current smoker. NPO Status: adequate Beta Waylon Monitoring Plan Monitoring plan: standard ASA. Post Procedure Analgesic Plan Postoperative analgesic plan: multimodal analgesia. Informed Consent Anesthetic risks, benefits, alternatives, personnel and consent discussed: yes. Patient / Responsible Democrat agrees to proceed: yes Patient / Surrogate agrees to blood products: blood products not planned Significant changes in the patient condition since the History and Physical, not otherwise documented in primary service progress note: no. Potential Anesthesia issues that may suggest increased risk of complications or contraindication to planned procedure: none. Discussed the possibility of lip / dental damage: yes No vitals data found for the desired time range. No current facility-administered medications on file as of 07/19/2024. Outpatient Medications as of 07/19/2024 Medication Sig - spironolactone (ALDACTONE) 25 mg tablet Take 1 tablet by mouth once daily. - amLODIPine (NORVASC) 5 mg tablet Take 1 tablet by mouth once daily. - apixaban (ELIQUIS) 5 mg tab(s) Take 1 tablet by mouth two times a day. - escitalopram oxalate (LEXAPRO) 5 mg tablet Take 5 mg by mouth once daily. - losartan (COZAAR) 50 mg tablet Take 2 tablets by mouth once daily. - amiodarone (PACERONE) 200 mg tablet 200 mg 3 times daily for 1 week followed by 200 mg 2 times daily for 3 weeks followed by 200 mg daily thereafter - bisoprolol (ZEBETA) 5 mg tablet Take 1 tablet by mouth two times a day. - furosemide (LASIX) 20 mg tablet Take 1 tablet by mouth once daily. Can take additional 20 mg as needed for swelling or >2 lb weight gain overnight. - atorvastatin (LIPITOR) 40 mg tablet Take 1 tablet by mouth once daily. Need appointment for future refills - omega-3/dha/epa/fish oil (OMEGA-3 ORAL) Take by mouth once daily. - acetaminophen 650 mg CR tablet Every 12 hours - amoxicillin (AMOXIL) 500 mg capsule TAKE 2 CAPSULES BY MOUTH now then TAKE 1 CAPSULE BY MOUTH EVERY 6 HOURS UNTIL GONE - ketoconazole (NIZORAL) 2 % cream - DULoxetine (CYMBALTA) 60 mg capsule Take 1 capsule by mouth every afternoon. - fluticasone-vilanterol (BREO ELLIPTA) 100-25 mcg/dose inhaler INHALE [...] (FLONASE) 50 mcg/actuation nasal spray Use 1 [place] in each nostril once daily. - coenzyme Q10 100 mg cap Take 100 mg by mouth once daily. - albuterol HFA (PROAIR HFA) 90 mcg/actuation inhaler Inhale 2 Puffs as instructed e (more content not included)... Normal [facility] ECG COMPLETEon 07-19-2024 ECG COMPLETE Ventricular Rate : 6 5 BPM Atrial Rate : 65 BPM P-R Interval : 231 ms QRS Duration : 98 ms Q-T Interval : 445 ms QTC Calculation(Bazett) : 463 ms Calculated P Orange : 3 degrees Calculated R Orange : -16 degrees Calculated T Orange : 5 degrees Sinus rhythm Multiple ventricular premature complexes Prolonged MS interval Left ventricular hypertrophy Abnormal ECG Confirmed by TATUM SO DO ([id number]) on 07/22/2024 2:19:11 PM NAME : IRENA PERAZA PID : [id number] : 1945 Gender : Male Race : ORD : [id number] Procedure Date : Jul 19 2024 10:11:29 Edit Date : Jul 22 2024 14:19:15 Diagnosis: Sinus rhythm Multiple ventricular premature complexes Prolonged MS interval Left ventricular hypertrophy Abnormal ECG Confirmed by TATUM SO DO ([id number]) on 07/22/2024 2:19:11 PM Test Reason : Post-OP Location : 300 : EKG AVCL Overread By : TATUM SO DO Edited By : TATUM SO DO Referred By : , Acquired by : ANDRADE MARIE Normal [facility] ECG COMPLETE Ventricular Rate : 7 8 BPM Atrial Rate : 0 BPM P-R Interval : 468 ms QRS Duration : 95 ms Q-T Interval : 416 ms QTC Calculation(Bazett) : 474 ms Calculated R Orange : -19 degrees Calculated T Orange : 44 degrees Atrial fibrillation Borderline left axis deviation Nonspecific repol abnormality, lateral leads Abnormal ECG Confirmed by TATUM SO DO ([id number]) on 07/22/2024 2:18:14 PM NAME : IRENA PERAZA PID : [id number] : 1945 Gender : Male Race : ORD : [id number] Procedure Date : Jul 19 2024 09:02:18 Edit Date : Jul 22 2024 14:18:16 Diagnosis: Atrial fibrillation Borderline left axis deviation Nonspecific repol abnormality, lateral leads Abnormal ECG Confirmed by TATUM SO DO ([id number]) on 07/22/2024 2:18:14 PM Test Reason : Pre OP Location : 300 : EKG AVCL Overread By : TATUM SO DO Edited By : TATUM SO DO Referred By : , Acquired by : ROBY BARCENAS [facility] OPERATIVE NOon 07-19-2024 OPERATIVE NO HNO ID: [id number] Author: QUIANA CALLES MD Service: Cardiovascular Medicine Author Type: Physician Type: Operative Report Filed: 07/19/2024 09:40 Note Text: OPERATIVE/PROCEDURE REPORT LOG ID: [id number] SURGERY/PROCEDURE DATE: 07/19/2024 INCISION/PROCEDURE START TIME: INCISION CLOSE/PROCEDURE END TIME: SURGEON(S)/PROCEDURALI ST(S) AND CAUSTIC PURIFICATION OPERATOR(S): Surgeons and Role: * Quiana Calles MD - Primary No Additional Staff SURGERY/PROCEDURE(S): CV ANESTHESIA: Monitored Anesthesia Care SURGERY/PROCEDURE DETAILS: Patient was brought in n.p.o. status in the outpatient surgical suite. He received a propofol for sedation by anesthesia services. Then he received 200 J of DC cardioversion synchronized biphasic Successfully shocking the patient from persistent atrial fibrillation into sinus rhythm. PRE-OP/PRE-PROCEDURE DIAGNOSIS: Persistent atrial fibrillation POST-OP/POST-PROCEDURE DIAGNOSIS: Same as Preop Status post cardioversion. Sinus rhythm restored. ESTIMATED BLOOD LOSS: 0 ml SPECIMENS: None IMPLANTABLE DEVICES: NONE DRAINS: None COMPLICATIONS: None PARTICIPATION IN SURGERY/PROCEDURE: I/primary surgeon/proceduralist performed the procedure with assistance. SIGNATURE: Quiana Calles MD PATIENT NAME: Irena Peraza DATE: July 19, 2024 TIME: 9:37 AM [facility] CNOVon 07-17-2024 CNOV Office Visit (CARINF ) IRENA PERAZA ([id number]) 1945 M Date Time Provider Department 07/17/24 2:00 PM ANGELI AU CARINF During your visit today, we recorded the following information about you: Pulse Blood pressure Weight Height 84/minute 122/66 97.3 kg 1.778 m Angeli Au MD 07/17/2024 2:41 PM Signed [facility] Department of Cardiovascular Medicine SECTION OF [facility] CARDIOLOGY OUTPATIENT VISIT DATE July 18, 2023 OUTPATIENT VISIT TYPE ESTABLISHED PRIMARY CARE PHYSICIAN: Scarlett Gaviria NP [address] [place] [address] CHIEF COMPLAINT: Arrhythmia HISTORY OF PRESENT ILLNESS: Mr. Peraza is a pleasant 79 year old male here for cardiovascular follow-up of her Hx of Atrial Fib now s/p watchman device. On follow up visit 4 months following implantation he was seen by Dr Kemp (implanted the device) and was told to stop the apixaban and comtinue Aspirin 81mg. Scheduled for a 1 year YOGESH. He is a patient of Dr Au. 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 A week ago he was in the pool and he wasn't feeling well and he went to [place] ED. A CT chest was done and [...] by mouth once daily.Disp: 30 tabletRfl: 5 Tdnxc-8-NKX-EPA-Fish Oil 1,000 mg (120 mg-180 mg) capTake [...] fluticasone (FLONASE) 50 mcg/actuation nasal sprayUse 1 [place] in each nostril once daily.Disp: Rfl: 0 coenzyme Q10 100 mg capTake 100 mg by mouth once daily. Disp: Rfl: LORATADINE (CLARITIN ORAL)Take 1 tablet by mouth once daily.Disp: Rfl: albuterol HFA (PROAIR HFA) 90 mcg/actuation inhalerInhale 2 Puffs as instructed every 6 hours as needed.Disp: 1 InhalerRfl: 0 Glucosamine-Chondroit- Vit C-Mn 500-400 mg capTake 1 capsule by [...] size. There is mild concentric left ventricular hypertroph (more content not included)... Normal [facility] Basic metabolic 2000 panelon 07-12-2024 Anion gap [Moles/Vol] 9 mmol/L Normal 8-15 [facility] Comment on above: Order Comment: Speci tamra Type: BLOOD SPECIMEN Ordering Facility: [facility] Address: [address] [place] [address] Performed By: #### 2 4321-2 #### [facility] CLIA [id number] [address] [place] [address] Calcium [Mass/Vol] 8.7 mg/dL Normal 8.5-10.2 [facility] Comment on above: Order Comment: Domenica barboza Type: BLOOD SPECIMEN Ordering Facility: [facility] Address: [address] [place] [address] Performed By: #### 2 4321-2 #### [facility] CLIA [id number] [address] [place] [address] Chloride [Moles/Vol] 99 mmol/L Normal 98-107 [facility] Comment on above: Order Comment: Speci men Type: BLOOD SPECIMEN Ordering Facility: [facility] Address: [address] [place] [address] Performed By: #### 2 4321-2 #### [facility] CLIA [id number] [address] [place] [address] CO2 [Moles/Vol] 29 mmol/L Normal 22-30 [facility] Comment on above: Order Comment: Speci men Type: BLOOD SPECIMEN Ordering Facility: [facility] Address: [address] [place] [address] Performed By: #### 2 4321-2 #### [facility] CLIA [id number] [address] [place] [address] Creatinine [Mass/Vol] 1.19 mg/dL Normal 0.73-1.22 [facility] Comment on above: Order Comment: Speci men Type: BLOOD SPECIMEN Ordering Facility: [facility] Address: [address] [place] [address] Performed By: #### 2 4321-2 #### [facility] CLIA [id number] [address] [place] [address] Creatinine and Glomerular filtration rate.predicted panel (S/P/Bld) 63 mL/min/1.73m??? Normal >=60 [facility] Comment on above: Order Comment: Speci men Type: BLOOD SPECIMEN Ordering Facility: [facility] Address: [address] [place], [place] [id number] Result Comment: Celia mated Glomerular Filtration Rate [...] GFR. Performed By: #### 2 4321-2 #### [facility] CLIA [id number] [address] [place] [address] Glucose [Mass/Vol] 86 mg/dL Normal 74-99 [facility] Comment on above: Order Comment: Domenica barboza Type: BLOOD SPECIMEN Ordering Facility: [facility] Address: [address] [place], [place] [address] Result Comment: The [place] Diabetes Association (ADA) provides guidance for cutoff [...] Standards of Medical Care in Diabetes 2016, [place] [employer]. Diabetes Care. 2016.39(Suppl 1). Performed By: #### 2 4321-2 #### [facility] CLIA [id number] [address] [place] [address] Potassium [Moles/Vol] 3.8 mmol/L Normal 3.7-5.1 [facility] Comment on above: Order Comment: Domenica barboza Type: BLOOD SPECIMEN Ordering Facility: [facility] Address: [address] [place] [address] Performed By: #### 2 4321-2 #### [facility] CLIA [id number] [address] [place] [address] Sodium [Moles/Vol] 137 mmol/L Normal 136-144 [facility] Comment on above: Order Comment: Domenica abrboza Type: BLOOD SPECIMEN Ordering Facility: [facility] Address: [address] [place], [place] [id number] Performed By: #### 2 4321-2 #### [facility] CLIA [id number] [address] [place] [address] Urea nitrogen [Mass/Vol] 20 mg/dL Normal 9-24 [facility] Comment on above: Order Comment: Speci men Type: BLOOD SPECIMEN Ordering Facility: [facility] Address: [address] [place] [address] Performed By: #### 2 4321-2 #### [facility] CLIA [id number] [address] [place] [address] Kassie 07-12-2024 CNPN Telephone (CARDAV) IRENA PERAZA ([id number]) 1945 M Date Time Provider Department 07/12/24 ANGELI AU During your visit today, we recorded the following information about you: Maria Antonia Johnson 07/12/2024 1:22 PM Signed Elmer is calling Angeli Au MD today asking if he should see Dr. Au before his cardioversion? Please advise. OK to [employer] or [employer] message. Patient has been identified by name and birthdate. Duration of symptoms: N/A Person calling: self Call patient at: on cell [phone] (home) [phone] (cell) Was an appointment scheduled: No Closing statement: Results or non-symptom based questions: Thank you for calling [facility], your call will be returned within the next business day. Maria Antonia Dougherty Allergies As of Date: 07/12/2024 (No Known Allergies) Date Reviewed: 07/05/2024 Reviewed by: Radha Moe, RN - Fully Assessed Reason for Visit: Appointment [186] Prescriptions as of 09/28/2024 - apixaban (ELIQUIS) 5 mg tab(s) Take 1 tablet by mouth two times a day. - furosemide (LASIX) 20 mg tablet Take 1 tablet by mouth once daily. Can take additional 20 mg as needed for swelling or >2 lb weight gain overnight. - atorvastatin (LIPITOR) 40 mg tablet Take 1 tablet by mouth once daily. Need appointment for future refills - spironolactone (ALDACTONE) 25 mg tablet Take 1 tablet by mouth once daily. - amLODIPine (NORVASC) 5 mg tablet Take 1 tablet by mouth once daily. - escitalopram oxalate (LEXAPRO) 5 mg tablet Take 5 mg by mouth once daily. - losartan (COZAAR) 50 mg tablet Take 2 tablets by mouth once daily. - amiodarone (PACERONE) 200 mg tablet 200 mg 3 times daily for 1 week followed by 200 mg 2 times daily for 3 weeks followed by 200 mg daily thereafter - bisoprolol (ZEBETA) 5 mg tablet Take 1 tablet by mouth two times a day. - omega-3/dha/epa/fish oil (OMEGA-3 ORAL) Take by mouth once daily. - acetaminophen 650 mg CR tablet Every 12 hours - amoxicillin (AMOXIL) 500 mg capsule TAKE 2 CAPSULES BY MOUTH now then TAKE 1 CAPSULE BY MOUTH EVERY 6 HOURS UNTIL GONE - ketoconazole (NIZORAL) 2 % cream - DULoxetine (CYMBALTA) 60 mg capsule Take 1 capsule by mouth every afternoon. - fluticasone-vilanterol (BREO ELLIPTA) 100-25 mcg/dose inhaler INHALE [...] (FLONASE) 50 mcg/actuation nasal spray Use 1 [place] in each nostril once daily. - coenzyme Q10 100 mg cap Take 100 mg by mouth once daily. - albuterol HFA (PROAIR HFA) 90 mcg/actuation inhaler Inhale 2 Puffs as instructed every 6 hours as needed. - Glucosamine-Chondroit- Vit C-Mn 500-400 mg cap Take 1 capsule by mouth twice daily. Meds Comments as of 09/01/2016: Omeprazole is taken prn Problem List As Of Date 07/12/2024 Noted Resolved PAF (paroxysmal atrial fibrillation) ([facility]) [I48* Former smoker [Z87.891] Obstructive lung disease [...] left rotator cuff [M75.122] 05/29/2015 Melanoma ([facility]) [C43.9] 07/23/2015 HTN (hypertension), benign [I10] 07/23/2015 Cervical spine pain [M54.2] Osteoarthritis [M19.90] 08/06/2015 Limitation of joint motion of shoulder [M25.619]08/20/2015 Acute on chronic diastolic congestive heart win*10/31/2015 Chronic diastolic congestive heart failure (HCC*12/19/2015 Right shoulder pain [M25.511] 09/21/2016 Stiffness of shoulder joint [M25.619] 09/21/2016 Criss (more content not included)... Normal [facility] Influenza virus B Ag [Presen ce] in Upper respiratory specimen by Rapid immunoassayon 07-06-2024 FLUBV Ag IA.rapid Ql (Nph) Influenza virus B Ag [Presence] in Upper respiratory specimen by Rapid immunoassay [facility] No Panel Informationon 07-06 Influenza Type A (Rapid) Positive [facility] POC SARS CoV-2 Antigen Negative [facility] CNPNon 07-05-2024 CNPN Telephone (CARDAV) IRENA PERAZA ([id number]) 1945 M Date Time Provider Department 07/05/24 MONI MANDUJANO During your visit today, we recorded the following information about you: Radha Moe, RN 07/05/2024 11:10 AM Signed Patient calling. He is scheduled for a cardioversion 07/11. He is calling to report that last night, walking in and out of gnosticism he got short of breath and had to stop to catch his breath. That is very unusual for him. Had to stop after 25 to 30 yds. Since then he has been walking around the house with no shortness of breath. No dizziness or lightheadedness. Very tired but has been. No chest pain or pressure or heaviness. No edema in hands or abdomen, lower legs very slightly swollen which he states is the same as usual for him. Weights: 06/26: 210 lbs 06/27: 210 lbs 07/03: 209 lbs Today: 204 lbs -He takes 20 mgs of Lasix daily. For a few days he tried taking 2 lasix a day-unsure why. Urine output is normal. BP today is 136/71, 78. No palpitations. A cough started over the weekend, approx 6 days ago. No cold symptoms. No fever. Productive of dark yellow initially. Now it is a pale green/pope color. Denies any blood, not pink/frothy. -taking Mucinex. He asks: -Is there anything he should be taking for the cough? The new shortness of breath with exertion? -He hopes this won't interfere with his upcoming cardioversion. -He is on Lexapro 5 mg for depression. His psychiatrist would like to increase it to 10 mg but wants him to ask cardiology first. Does that sound ok? He declines to schedule an appt at this time. Prefers to ask for recommendations if possible. Lidia Toledo, RN 07/05/2024 2:59 PM Signed Patient calling with additional information regarding below message. He noticed while laying on his side, both left and right, he can hear himself wheezing on exhale. No other new or worsening symptoms. GO TO THE EMERGENCY ROOM OR CALL 911 IF: * You develop any new symptoms * Your condition worsens * You are concerned or anxious about your condition for any other reason. If you have any questions, call back. Esther Francis, RN 07/06/2024 11:21 AM Signed Spoke with patient,relayed information from Jacqueline Tamayo. Patient in agreement will follow up with PCP. Alessandra Luna, RN 07/06/2024 3:22 PM Signed Patient calling back. States he went to the local urgent care in [facility]. Was found to have Flu A and bronchitis. Denies chest pain or shortness of breath Was prescribed Amoxicillin 500mg twice daily for 5 days. Also prescribed prednisone for 5 days. Was instructed to check with Cardiology before starting the prednisone since he is scheduled for cardioversion on 07/11/24 Please call [phone] Hoping not to have to postpone the cardioversion GO TO THE EMERGENCY ROOM OR CALL 911 IF: * You develop any new symptoms * Your condition worsens * You are concerned or anxious about your condition for any other reason. If you have any questions, call back. Teresa Goldberg APRN.CNP 07/06/2024 3:40 PM Signed I reviewed the message Recommendation: -patient ok to take prednisone -would recommend patient have no flu symptoms prior to the cardioversion, he should be symptom free prior to the scheduled cardioversion, anesthesia will not complete the procedure, unless they have recovered from the infection. Thank you Teresa Goldberg APRN.Trixie Sanford RN 07/06/2024 3:47 PM Signed Called and spoke to patient per below, he verbalized understanding. Allergies As of Date: 07/05/2024 (No Known Allergies) Date Reviewed: 07/05/2024 Reviewed by: Radha Moe RN - Fully Assessed Reason for Visit: Shortness of breath with walking, new cough [Other] Patient Update [1234] Primary Visit Diagnosis:Medication management [Z79.899] [Z79.899] Prescriptions as of 07/06/2024 - spironolactone (ALDACTONE) 25 mg tablet Take 1 tablet by mouth once daily. - amLODIPine (NORVASC) 5 mg tablet Take 1 tablet by mouth once daily. - apixaban (ELIQUIS) 5 mg tab(s) Take 1 tablet by mouth two times a day. - escitalopram oxalate (LEXAPRO) 5 mg tablet Take 5 mg by mouth once daily. - losartan (COZAAR) 50 mg tablet Take 2 tablets by mouth once daily. - amiodarone (PACERONE) 200 mg tablet 200 mg 3 times daily for 1 week followed by 200 mg 2 times daily for 3 weeks followed by 200 mg daily thereafter - bisoprolol (ZEBETA) 5 mg tablet Take 1 tablet by mouth two times a day. - furosemide (LASIX) 20 mg tablet Take 1 tablet by mouth once daily. Can take additional 20 mg as needed for swelling or >2 lb weight gain overnight. - atorvastatin (LIPITOR) 40 mg tablet Take 1 tablet by mouth once daily. Need appointment for future refills - omega-3/dha/epa/fish oil (OMEGA-3 ORAL) Take by mouth once daily. - acetaminophen 650 mg CR tablet Every 1 (more content not included)... Normal [facility] Kassie 07-02-2024 HAYDER Telephone (SPNMMN) IRENA PERAZA ([id number]) 1945 M Date Time Provider Department 07/02/24 ALPA RAMNMMN During your visit today, we recorded the following information about you: Delfina Hwang, RN 07/02/2024 5:12 PM Addendum Spoke to patient he has been coughing since yesterday and today. His ribs are hurting. Would like to cancel his injection. Patient knows on medication and should contact when wants to reschedule. I am going to send [employer] message to make it easier to get in touch with me. Allergies As of Date: 07/02/2024 (No Known Allergies) Date Reviewed: 06/12/2024 Reviewed by: Patricia Spear MA - Fully Assessed Prescriptions as of 07/23/2024 - spironolactone (ALDACTONE) 25 mg tablet Take 1 tablet by mouth once daily. - amLODIPine (NORVASC) 5 mg tablet Take 1 tablet by mouth once daily. - apixaban (ELIQUIS) 5 mg tab(s) Take 1 tablet by mouth two times a day. - escitalopram oxalate (LEXAPRO) 5 mg tablet Take 5 mg by mouth once daily. - losartan (COZAAR) 50 mg tablet Take 2 tablets by mouth once daily. - amiodarone (PACERONE) 200 mg tablet 200 mg 3 times daily for 1 week followed by 200 mg 2 times daily for 3 weeks followed by 200 mg daily thereafter - bisoprolol (ZEBETA) 5 mg tablet Take 1 tablet by mouth two times a day. - furosemide (LASIX) 20 mg tablet Take 1 tablet by mouth once daily. Can take additional 20 mg as needed for swelling or >2 lb weight gain overnight. - atorvastatin (LIPITOR) 40 mg tablet Take 1 tablet by mouth once daily. Need appointment for future refills - omega-3/dha/epa/fish oil (OMEGA-3 ORAL) Take by mouth once daily. - acetaminophen 650 mg CR tablet Every 12 hours - amoxicillin (AMOXIL) 500 mg capsule TAKE 2 CAPSULES BY MOUTH now then TAKE 1 CAPSULE BY MOUTH EVERY 6 HOURS UNTIL GONE - ketoconazole (NIZORAL) 2 % cream - DULoxetine (CYMBALTA) 60 mg capsule Take 1 capsule by mouth every afternoon. - fluticasone-vilanterol (BREO ELLIPTA) 100-25 mcg/dose inhaler INHALE [...] (FLONASE) 50 mcg/actuation nasal spray Use 1 [place] in each nostril once daily. - coenzyme Q10 100 mg cap Take 100 mg by mouth once daily. - albuterol HFA (PROAIR HFA) 90 mcg/actuation inhaler Inhale 2 Puffs as instructed every 6 hours as needed. - Glucosamine-Chondroit- Vit C-Mn 500-400 mg cap Take 1 capsule by mouth twice daily. Meds Comments as of 09/01/2016: Omeprazole is taken prn Problem List As Of Date 07/02/2024 Noted Resolved PAF (paroxysmal atrial fibrillation) (HCC) [...] 05/18/2022 IRB 21-1031 [employer] (more content not included)... Normal [facility] Basic metabolic 2000 panelon 06-28-2024 Anion gap [Moles/Vol] 11 mmol/L Normal 8-15 [facility] Comment on above: Order Comment: Speci men Type: BLOOD SPECIMEN Ordering Facility: [facility] Address: [address] [place] [address] Performed By: #### 1 9123-9, 83729-3 #### [facility] CLIA [id number] [address] [place] [address] Calcium [Mass/Vol] 9.2 mg/dL Normal 8.5-10.2 [facility] Comment on above: Order Comment: Speci men Type: BLOOD SPECIMEN Ordering Facility: [facility] Address: [address] [place] [address] Performed By: #### 1 9123-9, 94036-2 #### [facility] CLIA [id number] [address] [place] [address]017 Chloride [Moles/Vol] 102 mmol/L Normal 98-107 [facility] Comment on above: Order Comment: Speci men Type: BLOOD SPECIMEN Ordering Facility: [facility] Address: [address] [place] [address] Performed By: #### 1 9123-9, 16203-8 #### [facility] CLIA [id number] [address] [place] [address] 09352 CO2 [Moles/Vol] 28 mmol/L Normal 22-30 [facility] Comment on above: Order Comment: Speci men Type: BLOOD SPECIMEN Ordering Facility: [facility] Address: [address] [place] [address] Performed By: #### 1 9123-9, 73727-2 #### [facility] CLIA [id number] [address] [place] [address]407 Creatinine [Mass/Vol] 1.08 mg/dL Normal 0.73-1.22 [facility] Comment on above: Order Comment: Speci men Type: BLOOD SPECIMEN Ordering Facility: [facility] Address: [address] [place] [address] Performed By: #### 1 9123-9, 54069-2 #### [facility] CLIA [id number] [address] [place] [address] Creatinine and Glomerular filtration rate.predicted panel (S/P/Bld) 70 mL/min/1.73m??? Normal >=60 [facility] Comment on above: Order Comment: Speci men Type: BLOOD SPECIMEN Ordering Facility: [facility] Address: [address] [place] [address] Result Comment: Celia mated Glomerular Filtration Rate [...] actual GFR. Performed By: #### 1 9123-9, 08960-9 #### [facility] CLIA [id number] [address] [place] [address]12 Glucose [Mass/Vol] 91 mg/dL Normal 74-99 [facility] Comment on above: Order Comment: Speci men Type: BLOOD SPECIMEN Ordering Facility: [facility] Address: [address] [place], [place] [address] Result Comment: The [place] Diabetes Association (ADA) provides guidance for cutoff [...] Standards of Medical Care in Diabetes 2016, [place] [employer]. Diabetes Care. 2016.39(Suppl 1). Performed By: #### 1 9123-9, 82903-3 #### [facility] CLIA [id number] [address] [place] [address] 22795 Potassium [Moles/Vol] 4.5 mmol/L Normal 3.7-5.1 [facility] Comment on above: Order Comment: Juan Joséi tamra Type: BLOOD SPECIMEN Ordering Facility: [facility] Address: [address] [place] [address] Performed By: #### 1 9123-9, 83495-7 #### [facility] CLIA [id number] [address] [place] [address] Sodium [Moles/Vol] 141 mmol/L Normal 136-144 [facility] Comment on above: Order Comment: Speci men Type: BLOOD SPECIMEN Ordering Facility: [facility] Address: [address] [place] [address] Performed By: #### 1 9123-9, 34496-3 #### [facility] CLIA [id number] [address] [place] [address]776 Urea nitrogen [Mass/Vol] 16 mg/dL Normal 9-24 [facility] Comment on above: Order Comment: Speci men Type: BLOOD SPECIMEN Ordering Facility: [facility] Address: [address] [place] [address] Performed By: #### 1 9123-9, 05420-0 #### [facility] CLIA [id number] [address] [place] [address] 42487 CBC panel Auto (Bld)on 06-28 Erythrocyte distribution width (RBC) [Ratio] 13.9 % Normal 11.5-15.0 [facility] Comment on above: Order Comment: Speci men Type: BLOOD SPECIMENOrdering Facility: [facility] Address: [address] [place] [address] Performed By: #### 5 8410-2 ####[facility] [id number] [place] [address] Hematocrit (Bld) [Volume fraction] 37.1 % Low 39.0-51.0 [facility] Comment on above: Order Comment: Speci men Type: BLOOD SPECIMENOrdering Facility: [facility] Address: [address] [place] [address] Performed By: #### 5 8410-2 ####[facility] [id number] [place] [address] Hemoglobin (Bld) [Mass/Vol] 12.0 g/dL Low 13.0-17.0 [facility] Comment on above: Order Comment: Speci men Type: BLOOD SPECIMENOrdering Facility: [facility] Address: [address] [place] [address] Performed By: #### 5 8410-2 ####[facility] [id number] [place] [address] MCH (RBC) [Entitic mass] 31.6 pg Normal 26.0-34.0 [facility] Comment on above: Order Comment: Speci men Type: BLOOD SPECIMENOrdering Facility: [facility] Address: [address] [place] [address] Performed By: #### 5 8410-2 ####[facility] [id number] [place] [address] MCHC (RBC) [Mass/Vol] 32.3 g/dL Normal 30.5-36.0 [facility] Comment on above: Order Comment: Speci men Type: BLOOD SPECIMENOrdering Facility: [facility] Address: [address] [place] [address] Performed By: #### 5 8410-2 ####[facility] [id number] [place] [address] MCV (RBC) [Entitic vol] 97.6 fL Normal 80.0-100.0 [facility] Comment on above: Order Comment: Speci men Type: BLOOD SPECIMENOrdering Facility: [facility] Address: [address] [place] [address] Performed By: #### 5 8410-2 ####[facility] [id number] [place] [address] Nucleated RBC (Bld) [#/Vol] 10*3/uL Normal <0.01 [facility] Comment on above: Order Comment: Speci men Type: BLOOD SPECIMENOrdering Facility: [facility] Address: [address] [place] [address] Performed By: #### 5 8410-2 ####[facility] [id number] [place] [address] Platelet mean volume (Bld) [Entitic vol] 9.1 fL Normal 9.0-12.7 [facility] Comment on above: Order Comment: Speci men Type: BLOOD SPECIMENOrdering Facility: [facility] Address: [address] [place] [address] Performed By: #### 5 8410-2 ####[facility] [id number] [place] [address] Platelets (Bld) [#/Vol] 238 10*3/uL Normal 150-400 [facility] Comment on above: Order Comment: Speci men Type: BLOOD SPECIMENOrdering Facility: [facility] Address: [address] [place] [address] Performed By: #### 5 8410-2 ####[facility] [id number] [place] [address] RBC (Bld) [#/Vol] 3.80 10*6/uL Low 4.20-6.00 [facility] Comment on above: Order Comment: Speci men Type: BLOOD SPECIMENOrdering Facility: [facility] Address: [address] [place] [address] Performed By: #### 5 8410-2 ####[facility] [id number] [place] [address] WBC (Bld) [#/Vol] 5.75 10*3/uL Normal 3.70-11.00 [facility] Comment on above: Order Comment: Speci men Type: BLOOD SPECIMENOrdering Facility: [facility] Address: [address] [place] [address] Performed By: #### 5 8410-2 ####[facility] [id number] [place] [address] NT-proBNP [facility] 06-28 Natriuretic peptide.B prohormone N-Terminal [Mass/Vol] 1257 pg/mL High <450 [facility] Comment on above: Order Comment: Juan Joséi men Type: BLOOD SPECIMEN Ordering Facility: [facility] Address: [address] [place] [address] Performed By: #### 3 3762-6 #### [facility] CLIA [id number] [address] [place] [address] [place] [address] [place] Kassie 06-20-2024 CNPN Telephone (SPAZMN) IERNA PERAZA ([id number]) 1945 M Date Time Provider Department 06/20/24 ALPA RAM [facility] During your visit today, we recorded the following information about you: Mookie Ag LPN 06/20/2024 1:30 PM Signed Phoned patient and spoke with patient to confirm appointment for Irena Peraza for spine procedure on 07/03/24. Patient notified that [place] will call patient the night before with the time to arrive for injection. Patient verbalized understanding of the following: -Provided education on spine procedure and answered questions related to spine injection procedure. 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 -NPO 6 hours prior to appointment, ok to take morning medications with sip of water. -Not to take any pain medications the day of injection to see how well injection works. -Do not take any NSAIDs/anti-inflammato concepción (mobic, ibuprofen, advil, aleve, etc) the day of procedure for all lumbar, hip, and sacroiliac joint procedures. Hold NSAIDs for 1 day prior to procedure for cervical cases. Allergies reviewed: Yes Allergy to IV contrast dye or steroids: No and not allergic to shellfish. Taking any antiplatelet/anticoagu lant (blood thinners): Yes, Chantell, patient informed he can continue his medication for this procedure. Taking aspirin 81mg: No Any open wounds/sores?: No Taking Antibiotics?: No Patient given number [phone], spine injections schedulers, if there is any need to reschedule/ change appointment during normal business hours. Active MyChart users were informed to read MyChart procedure instructions prior to appointment. AMBULATORY PATIENT EDUCATION TOPIC: SPINE INJECTION PROCEDURE, PRE-INJECTION AND POST- INJECTION INSTRUCTIONS READINESS TO LEARN COGNITIVE ABILITY: ALERT AND ORIENTED MOTIVATION TO LEARN: Eager FAMILY SUPPORT: Unable to assess - Family not present INSTRUCTION PROVIDED TO: Patient PATIENT LEARNS BEST BY: INDIVIDUAL INSTRUCTION FACTORS AFFECTING LEARNING: None PHYSICAL LIMITATIONS AFFECTING LEARNING: None LEARNING RESPONSE METHOD OF INSTRUCTION: TEACH BACK AND INDIVIDUAL INSTRUCTION PATIENT / FAMILY RESPONSE: VERBALIZED UNDERSTANDING OF PRE AND POST INJECTION INSTRUCTIONS Allergies As of Date: 06/20/2024 (No Known Allergies) Date Reviewed: 06/12/2024 Reviewed by: Patricia Spear MA - Fully Assessed Reason for Visit: Preperations for Procedure Call [Other] Prescriptions as of 06/20/2024 - apixaban (ELIQUIS) 5 mg tab(s) Take 1 tablet by mouth two times a day. - escitalopram oxalate (LEXAPRO) 5 mg tablet Take 5 mg by mouth once daily. - spironolactone (ALDACTONE) 25 mg tablet Take 1 tablet by mouth once daily. - losartan (COZAAR) 50 mg tablet Take 2 tablets by mouth once daily. - amiodarone (PACERONE) 200 mg tablet 200 mg 3 times daily for 1 week followed by 200 mg 2 times daily for 3 weeks followed by 200 mg daily thereafter - bisoprolol (ZEBETA) 5 mg tablet Take 1 tablet by mouth two times a day. - furosemide (LASIX) 20 mg tablet Take 1 tablet by mouth once daily. Can take additional 20 mg as needed for swelling or >2 lb weight gain overnight. - atorvastatin (LIPITOR) 40 mg tablet Take 1 tablet by mouth once daily. Need appointment for future refills - omega-3/dha/epa/fish oil (OMEGA-3 ORAL) Take by mouth once daily. - acetaminophen 650 mg CR tablet Every 12 hours - amoxicillin (AMOXIL) 500 mg capsule TAKE 2 CAPSULES BY MOUTH now then TAKE 1 CAPSULE BY MOUTH EVERY 6 HOURS UNTIL GONE - ketoconazole (NIZORAL) 2 % cream - DULoxetine (CYMBALTA) 60 mg capsule Take 1 capsule by mouth every afternoon. - fluticasone-vilanterol (BREO ELLIPTA) 100-25 mcg/dose inhaler INHALE [...] (FLONASE) 50 mcg/actuation nasal spray Use 1 [place] in each nostril once daily (more content not included)... [facility] Telephone (LENNYCA) IRENA PERAZA ([id number]) 1945 M Date Time Provider Department 06/16/24 [facility] RAM [facility] During your visit today, we recorded the following information about you: Mookie Ag LPN 06/16/2024 11:37 AM Signed [employer] message sent to patient with Procedure Instructions. Allergies As of Date: 06/16/2024 (No Known Allergies) Date Reviewed: 06/12/2024 Reviewed by: Patricia Spear MA - Fully Assessed Reason for Visit: Preperations for Procedure [Other] Cmt: [facility] Prescriptions as of 06/16/2024 - apixaban (ELIQUIS) 5 mg tab(s) Take 1 tablet by mouth two times a day. - escitalopram oxalate (LEXAPRO) 5 mg tablet Take 5 mg by mouth once daily. - spironolactone (ALDACTONE) 25 mg tablet Take 1 tablet by mouth once daily. - losartan (COZAAR) 50 mg tablet Take 2 tablets by mouth once daily. - amiodarone (PACERONE) 200 mg tablet 200 mg 3 times daily for 1 week followed by 200 mg 2 times daily for 3 weeks followed by 200 mg daily thereafter - bisoprolol (ZEBETA) 5 mg tablet Take 1 tablet by mouth two times a day. - furosemide (LASIX) 20 mg tablet Take 1 tablet by mouth once daily. Can take additional 20 mg as needed for swelling or >2 lb weight gain overnight. - atorvastatin (LIPITOR) 40 mg tablet Take 1 tablet by mouth once daily. Need appointment for future refills - omega-3/dha/epa/fish oil (OMEGA-3 ORAL) Take by mouth once daily. - acetaminophen 650 mg CR tablet Every 12 hours - amoxicillin (AMOXIL) 500 mg capsule TAKE 2 CAPSULES BY MOUTH now then TAKE 1 CAPSULE BY MOUTH EVERY 6 HOURS UNTIL GONE - ketoconazole (NIZORAL) 2 % cream - DULoxetine (CYMBALTA) 60 mg capsule Take 1 capsule by mouth every afternoon. - fluticasone-vilanterol (BREO ELLIPTA) 100-25 mcg/dose inhaler INHALE [...] (FLONASE) 50 mcg/actuation nasal spray Use 1 [place] in each nostril once daily. - coenzyme Q10 100 mg cap Take 100 mg by mouth once daily. - albuterol HFA (PROAIR HFA) 90 mcg/actuation inhaler Inhale 2 Puffs as instructed every 6 hours as needed. - Glucosamine-Chondroit- Vit C-Mn 500-400 mg cap Take 1 capsule by mouth twice daily. Meds Comments as of 09/01/2016: Omeprazole is taken prn Problem List As Of Date 06/16/2024 Noted Resolved PAF (paroxysmal atrial fibrillation) ([facility]) [I48* Former smoker [Z87.891] Obstructive lung disease [...] left rotator cuff [M75.122] 05/29/2015 Melanoma ([facility]) [C43.9] 07/23/2015 HTN (hypertension), benign [I10] 07/23/2015 [...] stenosis of lumbar region with radiculop*09/20/2023 Lumbar rad (more content not included)... Normal [facility] MRI FOOT W/O CONTRAST LEFTon 06-14-2024 Exam Date/Time: 06/12/2024 08:44 EST Reason for Exam: M79.672 Report IMPRESSION: Degenerative changes as discussed, especially involving the midfoot at the tarsometatarsal joints. Diffuse subcutaneous edema, most extensive dorsally. Other findings as discussed. HISTORY: Left foot pain. TECHNIQUE: Routine MRI of the left foot without contrast COMPARISON: None RESULT: Bone Marrow: No evidence for fracture, osteomyelitis, or marrow replacing process. Subcutaneous Tissues: Diffuse subcutaneous edema, most extensive dorsally. No distinct loculated collection. Joints: Advanced degenerative changes within the midfoot involving the tarsometatarsal joints with extensive subchondral cystic change and subchondral edema. Rounded cystic lesion between the bases of the first and second metatarsals dorsally measuring around 1.5 cm, likely representing ganglion cyst. Moderate degenerative changes within the forefoot, especially involving the first MTP joint and IP joints. Tendons: Grossly intact flexor and extensor tendons on the large [id number]-ii-qoqy. Mild distal Achilles tendinosis. Mild peroneal longus tendinosis. Plantar Plates: Plantar plates are intact-appearing. Intermetatarsal Spaces: No evidence of Ramos's neuroma. Lisfranc Ligament: Intact. Plantar Aponeurosis: Appears intact. Muscles: Mild diffuse fatty infiltration. Other: No other significant abnormality Report Ordering Provider: Haris Sutton FINAL REPORT Dictated: 06/14/2024 1:15 pm Emanuel Neumann MD Signed (Electronic Signature): 06/14/2024 1:15 pm Signed by: Emanuel Neumann MD Transcribed by: JADEN Technologist: JOSEPH [facility] Radiology, Radiologist, MD - 06/14/2024 Exam Date/Time: 06/12/2024 08:44 EST Reason for Exam: M79.672 Report IMPRESSION: Degenerative changes as discussed, especially involving the midfoot at the tarsometatarsal joints. Diffuse subcutaneous edema, most extensive dorsally. Other findings as discussed. HISTORY: Left foot pain. TECHNIQUE: Routine MRI of the left foot without contrast COMPARISON: None RESULT: Bone Marrow: No evidence for fracture, osteomyelitis, or marrow replacing process. Subcutaneous Tissues: Diffuse subcutaneous edema, most extensive dorsally. No distinct loculated collection. Joints: Advanced degenerative changes within the midfoot involving the tarsometatarsal joints with extensive subchondral cystic change and subchondral edema. Rounded cystic lesion between the bases of the first and second metatarsals dorsally measuring around 1.5 cm, likely representing ganglion cyst. Moderate degenerative changes within the forefoot, especially involving the first MTP joint and IP joints. Tendons: Grossly intact flexor and extensor tendons on the large [id number]-md-ljwp. Mild distal Achilles tendinosis. Mild peroneal longus tendinosis. Plantar Plates: Plantar plates are intact-appearing. Intermetatarsal Spaces: No evidence of Ramos's neuroma. Lisfranc Ligament: Intact. Plantar Aponeurosis: Appears intact. Muscles: Mild diffuse fatty infiltration. Other: No other significant abnormality Report Ordering Provider: Haris Sutton FINAL REPORT Dictated: 06/14/2024 1:15 pm Emanuel Neumann MD Signed (Electronic Signature): 06/14/2024 1:15 pm Signed by: Emanuel Neumann MD Transcribed by: JADEN Technologist: JOSEPH [facility] MRI FOOT W/O CONTRAST LEFTOr dered By: Radiologist Radiology on 06-14-2024 [facility] [employer] Work Phone: MRI Foot w/o Contrast Lefton 06-14-2024 MRI Foot w/o Contrast Left Exam Date/Time: 06/12/2024 08:44 EST Reason for Exam: M79.672 Report IMPRESSION: Degenerative changes as discussed, especially involving the midfoot at the tarsometatarsal joints. Diffuse subcutaneous edema, most extensive dorsally. Other findings as discussed. HISTORY: Left foot pain. TECHNIQUE: Routine MRI of the left foot without contrast COMPARISON: None RESULT: Bone Marrow: No evidence for fracture, osteomyelitis, or marrow replacing process. Subcutaneous Tissues: Diffuse subcutaneous edema, most extensive dorsally. No distinct loculated collection. Joints: Advanced degenerative changes within the midfoot involving the tarsometatarsal joints with extensive subchondral cystic change and subchondral edema. Rounded cystic lesion between the bases of the first and second metatarsals dorsally measuring around 1.5 cm, likely representing ganglion cyst. Moderate degenerative changes within the forefoot, especially involving the first MTP joint and IP joints. Tendons: Grossly intact flexor and extensor tendons on the large gxrkr-cb-mcpj. Mild distal Achilles tendinosis. Mild peroneal longus tendinosis. Plantar Plates: Plantar plates are intact-appearing. Intermetatarsal Spaces: No evidence of Ramos's neuroma. Lisfranc Ligament: Intact. Plantar Aponeurosis: Appears intact. Muscles: Mild diffuse fatty infiltration. Other: No other significant abnormality Report Ordering Provider: Haris Sutton FINAL REPORT Dictated: 06/14/2024 1:15 pm Emanuel Neumann MD Signed (Electronic Signature): 06/14/2024 1:15 pm Signed by: Emanuel Neumann MD Transcribed by: JADEN Technologist: JOSEPH [facility] CNOVon 06-12-2024 CNOV Office Visit ([facility] ) IRENA PERAZA ([id number]) 1945 M Date Time Provider Department 06/12/24 10:00 AM ALPA RAM During your visit today, we recorded the following information about you: Temperature Pulse Blood pressure Weight 98 degrees 78/minute 118/75 93.9 kg Height 1.778 m Alpa Ram, DO 06/16/2024 4:31 PM Signed [facility] Sp[facility] Health - Medical Spine Established Patient SUBJECTIVE HISTORY OF PRESENT ILLNESS: Irena Peraza is a 79 year old male who presents for f/u of low back pain. Last visit: continue PT HEP, BL lumbar MBB ordered. Patient underwent BL L4-5 and L5-S1 facet joint diagnostic blocks and had 90% relief during the diagnostic timeframe and then the pain returned to baseline. Pain is now located bilateral L>R low back, radiates to left buttock. Still gets intermittent numbness in left foot, sometimes and less so in right foot. Pain is ranging 3-8/10, worse in the morning, better with movement. Since last visit patient has been undergoing evaluation/management for his heart due to fatigue, planning on cardioversion, had cardiac cath, CTA chest. Following with Cardiology. Seeing a therapist due to feeling depressed from his health and is now off Cymbalta and on Lexapro instead. Now also has a left foot/ankle injury and is in a boot and had MRI this morning. Initial visit 06/22/23: Reports low back pain [...] naps and avoid his tasks too often. 01/16/24: Patient is s/p repeat BL L5-S1 TFESI. [...] left foot when washing in the shower. PAIN EVALUATION 06/12/2024 0554 Pain Level: 6 Pain Location: Leg-Left Description: Numbness;Sharp Duration Amount of Time: 7 Duration Units: Minutes Frequency: Intermittent Intervention/Comfort measure: Medication;Other: See comment Pain Radiation: As above Aggravating Factors: Standing, leaning forward Transfers Alleviating Factors: Stretching Sitting Child's pose Pain Ratio: midline lumbosacral back Current Treatment: Medications Tylenol 650mg (more content not included)... Normal [facility] MRI FOOT W/O CONTRAST LEFTon 06-12-2024 Radiology Study observation (narrative) [facility] XR Ankle - left 3 Viewson Imaging Result: XRAY: Three views were taken today AP/MO/LAT foot: No fractures or dislocations seen Small elizabeth fracture noted at the 2nd metatarsal cuneiform joint with a step-off noted Lisfranc's fracture dislocation noted. Possible nondisplaced fracture of the 4th metatarsal Replaced by [facility] Radiology Study observation (narrative) [facility] CNOVon 06-08-2024 CNOV Office Visit (CARDAV ) IRENA PERAZA ([id number]) 1945 M Date Time Provider Department 06/08/24 11:30 AM NURSE CARD [facility] AMIRAH WOMACK During your visit today, we recorded the following information about you: Akua Weinstein RN 06/08/2024 1:18 PM Signed EKG completed. Mendoza aware of a fib. Pt aware to expect call from the cardiac schedulers about a YOGESH and Cardioversion. Referring Provider: MONI MANDUJANO [[id number]] Allergies As of Date: 06/08/2024 (No Known Allergies) Date Reviewed: 05/18/2024 Reviewed by: Eris Whittington RN - Fully Assessed Reason for Visit: Nurse Visit [792] Visit Diagnoses:Persistent atrial fibrillation (HCC) [I48.19] Acute HFrEF (heart failure with reduced ejection fraction) (HCC) [I50.21] Order(s):ECG COMPLETE [ECG01] Order #: [id number] Prescriptions as of 06/08/2024 - spironolactone (ALDACTONE) 25 mg tablet Take 1 tablet by mouth once daily. - losartan (COZAAR) 50 mg tablet Take 2 tablets by mouth once daily. - amiodarone (PACERONE) 200 mg tablet 200 mg 3 times daily for 1 week followed by 200 mg 2 times daily for 3 weeks followed by 200 mg daily thereafter - bisoprolol (ZEBETA) 5 mg tablet Take 1 tablet by mouth two times a day. - furosemide (LASIX) 20 mg tablet Take 1 tablet by mouth once daily. Can take additional 20 mg as needed for swelling or >2 lb weight gain overnight. - atorvastatin (LIPITOR) 40 mg tablet Take 1 tablet by mouth once daily. Need appointment for future refills - omega-3/dha/epa/fish oil (OMEGA-3 ORAL) Take by mouth. - acetaminophen 650 mg CR tablet Every 12 hours - amoxicillin (AMOXIL) 500 mg capsule TAKE 2 CAPSULES BY MOUTH now then TAKE 1 CAPSULE BY MOUTH EVERY 6 HOURS UNTIL GONE - ketoconazole (NIZORAL) 2 % cream - DULoxetine (CYMBALTA) 60 mg capsule Take 1 capsule by mouth every afternoon. - fluticasone-vilanterol (BREO ELLIPTA) 100-25 mcg/dose inhaler INHALE [...] (FLONASE) 50 mcg/actuation nasal spray Use 1 [place] in each nostril once daily. - coenzyme Q10 100 mg cap Take 100 mg by mouth once daily. - albuterol HFA (PROAIR HFA) 90 mcg/actuation inhaler Inhale 2 Puffs as instructed every 6 hours as needed. - Glucosamine-Chondroit- Vit C-Mn 500-400 mg cap Take 1 capsule by mouth twice daily. Meds Comments as of 09/01/2016: Omeprazole is taken prn Problem List As Of Date 06/08/2024 Noted Resolved PAF (paroxysmal atrial fibrillation) ([facility]ERLY [facility]) [I48* Former smoker [Z87.891] Obstructive lung disease [...] (HCC) [I48.91] 05/19/2022 Low back pain, unspecified [M54 (more content not included)... Normal [facility] ECG COMPLETEon 06-08-2024 ECG COMPLETE Ventricular Rate : 8 1 BPM QRS Duration : 92 ms Q-T Interval : 404 ms QTC Calculation(Bazett) : 469 ms Calculated R Orange : 19 degrees Calculated T Orange : 21 degrees ATRIAL FIBRILLATION ABNORMAL ECG Confirmed by EROS MADRID MD ([id number]) on 06/11/2024 2:18:59 PM NAME : IRENA PERAZA PID : [id number] : 1945 Gender : Male Race : ORD : [id number] Procedure Date : Jun 08 2024 11:26:12 Edit Date : Jun 11 2024 14:19:00 Diagnosis: ATRIAL FIBRILLATION ABNORMAL ECG Confirmed by EROS MADRID MD ([id number]) on 06/11/2024 2:18:59 PM Test Reason : Location : 192 : AVCRD Overread By : EROS MADRID MD Edited By : EROS MADRID MD Referred By : MONI MANDUJANO Acquired by : , Normal [facility] Basic metabolic 2000 panelon 06-07-2024 Anion gap [Moles/Vol] 10 mmol/L Normal 8-15 [facility] Comment on above: Order Comment: Speci men Type: BLOOD SPECIMEN Ordering Facility: [facility] Address: [address] [place] [address] Performed By: #### 2 4321-2 #### [facility] CLIA [id number] [address] [place] [id number] [place] Calcium [Mass/Vol] 10.4 mg/dL High 8.5-10.2 [facility] Comment on above: Order Comment: Speci men Type: BLOOD SPECIMEN Ordering Facility: [facility] Address: [address] [place] [address] Performed By: #### 2 4321-2 #### [facility] CLIA [id number] [address] [place] [address] [place] Chloride [Moles/Vol] 98 mmol/L Normal 98-107 [facility] Comment on above: Order Comment: Speci men Type: BLOOD SPECIMEN Ordering Facility: [facility] Address: [address] [place] [address] Performed By: #### 2 4321-2 #### [facility] CLIA [id number] [address] [place] [address] [place] CO2 [Moles/Vol] 30 mmol/L Normal 22-30 [facility] Comment on above: Order Comment: Speci men Type: BLOOD SPECIMEN Ordering Facility: [facility] Address: [address] [place], [place] [id number] Performed By: #### 2 4321-2 #### [facility] CLIA [id number] [address] [place] [address] [place] Creatinine [Mass/Vol] 1.25 mg/dL High 0.73-1.22 [facility] Comment on above: Order Comment: Speci men Type: BLOOD SPECIMEN Ordering Facility: [facility] Address: [address] [place] [address] Performed By: #### 2 4321-2 #### [facility] CLIA [id number] [address] [place] [address] [place] Creatinine and Glomerular filtration rate.predicted panel (S/P/Bld) 59 mL/min/1.73m??? Low >=60 [facility] Comment on above: Order Comment: Domenica barboza Type: BLOOD SPECIMEN Ordering Facility: [facility] Address: [address] [place] [address] Result Comment: Celia mated Glomerular Filtration Rate [...] GFR. Performed By: #### 2 4321-2 #### [facility] CLIA [id number] [address] [place] [address] [place] [facility] Glucose [Mass/Vol] 103 mg/dL High 74-99 [facility] Comment on above: Order Comment: Domenica barboza Type: BLOOD SPECIMEN Ordering Facility: [facility] Address: [address] [place] [address] Result Comment: The [place] Diabetes Association (ADA) provides guidance for cutoff [...] Standards of Medical Care in Diabetes 2016, [place] [employer]. Diabetes Care. 2016.39(Suppl 1). Performed By: #### 2 4321-2 #### [facility] CLIA [id number] [address] [id number] [address] [place] Potassium [Moles/Vol] 4.2 mmol/L Normal 3.7-5.1 [facility] Comment on above: Order Comment: Speci men Type: BLOOD SPECIMEN Ordering Facility: [facility] Address: [address] [place] [address] Performed By: #### 2 4321-2 #### [facility] CLIA [id number] [address] [place] [address] [place] Sodium [Moles/Vol] 138 mmol/L Normal 136-144 [facility] Comment on above: Order Comment: Speci men Type: BLOOD SPECIMEN Ordering Facility: [facility] Address: [address] [place] [address] Performed By: #### 2 4321-2 #### [facility] CLIA [id number] [address] [place] [address] [place] Urea nitrogen [Mass/Vol] 11 mg/dL Normal 9-24 [facility] Comment on above: Order Comment: Speci men Type: BLOOD SPECIMEN Ordering Facility: [facility] Address: [address] [place] [address] Performed By: #### 2 4321-2 #### [facility] CLIA [id number] [address] [place] [address] [place] NT-proBNP [facility] 06-07 Natriuretic peptide.B prohormone N-Terminal [Mass/Vol] 1567 pg/mL High <450 [facility] Comment on above: Order Comment: Speci men Type: BLOOD SPECIMENOrdering Facility: [facility] Address: [address] [place] [address] Performed By: #### 3 3762-6 ####[facility] [id number] [place] [address] [place] CNPNon 06-05-2024 CNPN Telephone (4CQ) IRENA PERAZA ([id number]) 1945 M Date Time Provider Department 06/05/24 ANGELI AU 4CQ During your visit today, we recorded the following information about you: Zuleyka Juan 06/05/2024 3:13 PM Signed Elmer is calling Angeli Au MD today to request Question Patient calling and wanted to clarify if he was supposed to discontinue the atenolol or if he was supposed to continue? If he is to continue, he needs a new script. He thought he was to continue but chart has it d/c pn 05/18/24 Please advise. Patient has been identified by name and birthdate. Duration of symptoms: N/A Person calling: self Call patient at: at home [phone] (home) [phone] (cell) Was an appointment scheduled: No Closing statement: Results or non-symptom based questions: Thank you for calling [facility], your call will be returned within the next business day. Moni Moreno APRN.CASHIERS SUPERVISOR 06/07/2024 1:16 PM Addendum He was supposed to discontinue atenolol and replace with bisoprolol. This was done 05/18/24. Please ensure he is doing this. MyChart Encounter below: S/p C w/ Dr. Au today, new LV dysfunction of 35% AND LBBB, mild LAD dx, severe Cx, mod/severe RCA and PDA dx, no intervention, low suspicion that CAD is cause of new CM. Referral to placed for evaluation of ascending aorta dilation. From AF standpoint, will optimize HF prior to arranging for outpatient DCCV to restore NSR. From HFrEF standpoint changes made to medications as below: Stop atenolol. Start bisoprolol 5 mg BID. Start losartan 50 mg daily. Repeat labs in one week, if volume status optimized, will arrange for outpatient DCCV. Patient called and updated on POC. Moni Mandujano APRN, CASHIERS SUPERVISOR, May 18, 2024 [facility] Cardiology Second Floor [address] [facility] [address] [place], [place] [id number] Thank you Moni Mandujano APRN.Angeli Huitron II, BEN 06/08/2024 2:32 PM Signed Called patient to clarify stopping Atenolol and starting new medications. Pt stated he hasn't bee taking the Atenolol but did not know the names of the other medications he started. Pt asked for My chart message with those medications and stop/starts and will send. Allergies As of Date: 06/05/2024 (No Known Allergies) Date Reviewed: 05/18/2024 Reviewed by: Eris Whittington RN - Fully Assessed Reason for Visit: Question [1327] Prescriptions as of 06/08/2024 - spironolactone (ALDACTONE) 25 mg tablet Take 1 tablet by mouth once daily. - losartan (COZAAR) 50 mg tablet Take 2 tablets by mouth once daily. - amiodarone (PACERONE) 200 mg tablet 200 mg 3 times daily for 1 week followed by 200 mg 2 times daily for 3 weeks followed by 200 mg daily thereafter - bisoprolol (ZEBETA) 5 mg tablet Take 1 tablet by mouth two times a day. - furosemide (LASIX) 20 mg tablet Take 1 tablet by mouth once daily. Can take additional 20 mg as needed for swelling or >2 lb weight gain overnight. - atorvastatin (LIPITOR) 40 mg tablet Take 1 tablet by mouth once daily. Need appointment for future refills - omega-3/dha/epa/fish oil (OMEGA-3 ORAL) Take by mouth. - acetaminophen 650 mg CR tablet Every 12 hours - amoxicillin (AMOXIL) 500 mg capsule TAKE 2 CAPSULES BY MOUTH now then TAKE 1 CAPSULE BY MOUTH EVERY 6 HOURS UNTIL GONE - ketoconazole (NIZORAL) 2 % cream - DULoxetine (CYMBALTA) 60 mg capsule Take 1 capsule by mouth every afternoon. - fluticasone-vilanterol (BREO ELLIPTA) 100-25 mcg/dose inhaler INHALE [...] (FLONASE) 50 mcg/actuation nasal spray Use 1 [place] in each nostril once daily. - coenzyme Q10 100 mg cap Take 100 mg by mouth once daily. - albuterol HFA (PROAIR HFA) 90 mcg/actuation inhaler Inhale 2 Puffs as instructed every 6 hours as needed. - Glucosamine-Chondroit- Vit C-Mn 500-400 mg cap Take 1 capsu (more content not included)... [facility] Telephone (SHANTA) IRENA PERAZA ([id number]) 1945 M Date Time Provider Department 05/29/24 MONI MANDUJANO During your visit today, we recorded the following information about you: Mary Almanzar 05/29/2024 3:26 PM Signed Elmer is calling Moni Mandujano APRN.CNP today with concern regarding Results - CTA. Pt states he is just leaving [facility] from having the scan done. Pt states he was told it would be 3-5 days for the image to be read. Pt states he knows this was of urgent nature and asks if provider can get results back any sooner. Please advise. Patient has been identified by name and birthdate. Duration of symptoms: N/A Person calling: self Call patient at: at home [phone] (home) [phone] (cell) Was an appointment scheduled: No Closing statement: Results or non-symptom based questions: Thank you for calling [facility], your call will be returned within the next business day. Mary Dougherty, Lidia 06/14/2024 9:41 AM Signed Called and spoke to patient and scheduled his cardioversion at [facility] with Dr Natarajan on July 11. Gave patient instructions and sent mychart,. Follow up scheduled. Allergies As of Date: 05/29/2024 (No Known Allergies) Date Reviewed: 05/18/2024 Reviewed by: Eris Whittington RN - Fully Assessed Reason for Visit: Results - Ct [3560] Prescriptions as of 06/14/2024 - apixaban (ELIQUIS) 5 mg tab(s) Take 1 tablet by mouth two times a day. - escitalopram oxalate (LEXAPRO) 5 mg tablet Take 5 mg by mouth once daily. - spironolactone (ALDACTONE) 25 mg tablet Take 1 tablet by mouth once daily. - losartan (COZAAR) 50 mg tablet Take 2 tablets by mouth once daily. - amiodarone (PACERONE) 200 mg tablet 200 mg 3 times daily for 1 week followed by 200 mg 2 times daily for 3 weeks followed by 200 mg daily thereafter - bisoprolol (ZEBETA) 5 mg tablet Take 1 tablet by mouth two times a day. - furosemide (LASIX) 20 mg tablet Take 1 tablet by mouth once daily. Can take additional 20 mg as needed for swelling or >2 lb weight gain overnight. - atorvastatin (LIPITOR) 40 mg tablet Take 1 tablet by mouth once daily. Need appointment for future refills - omega-3/dha/epa/fish oil (OMEGA-3 ORAL) Take by mouth once daily. - acetaminophen 650 mg CR tablet Every 12 hours - amoxicillin (AMOXIL) 500 mg capsule TAKE 2 CAPSULES BY MOUTH now then TAKE 1 CAPSULE BY MOUTH EVERY 6 HOURS UNTIL GONE - ketoconazole (NIZORAL) 2 % cream - DULoxetine (CYMBALTA) 60 mg capsule Take 1 capsule by mouth every afternoon. - fluticasone-vilanterol (BREO ELLIPTA) 100-25 mcg/dose inhaler INHALE [...] (FLONASE) 50 mcg/actuation nasal spray Use 1 [place] in each nostril once daily. - coenzyme Q10 100 mg cap Take 100 mg by mouth once daily. - albuterol HFA (PROAIR HFA) 90 mcg/actuation inhaler Inhale 2 Puffs as instructed every 6 hours as needed. - Glucosamine-Chondroit- Vit C-Mn 500-400 mg cap Take 1 capsule by mouth twice daily. Meds Comments as of 09/01/2016: Omeprazole is taken prn Problem List As Of Date 05/29/2024 Noted Resolved PAF (paroxysmal atrial fibrillation) ([facility]) [I48* Former smoker [Z87.891] Obstructive lung disease [...] 07/23/2015 HTN (hypertension), benign [I10] 07/23/2015 Cervical (more content not included)... Normal [facility] CTA CHEST (GATED) W IVCONon 05-29-2024 CTA CHEST (GATED) W IVCON * * *Final Report* * * DATE OF EXAM: May 29 2024 10:39AM FVC 0125 - CTA CHEST (GATED) W IVCON / PROCEDURE REASON: Aortic dilatation (HCC) * * * * Physician Interpretation * * * * CTA Aorta chest Direct Image Comparison: None HISTORY: 79 years old Male with dilated thoracic aorta referred for further assessment of the thoracic aorta Evaluation for diagnostic clarification and further treatment options. There is request to define thoracic and aortic anatomy TECHNIQUE: SCANNER: out-patient Siemens Definition Flash Dual source [id number] scanner PROTOCOL: Prospectively triggered helical high-pitch acquisitions ( triggered Flash-mode ) was performed following the intravenous administration of contrast material. Scan Range: thoracic inlet to the diaphragm CT Dose-Length Product (DLP): 356 mGy*cm CT Dose Reduction Employed: Automated exposure control(AEC) and iterative recon CONTRAST: IV administration of 90 ml Omnipaque 350 Scan acquisition: uncomplicated Macro Version: [id number]:CCTW_[id number] For optimization of anatomic evaluation, advanced 3-D off-line postprocessing was performed on a dedicated workstation by the interpreting physician. STUDY LIMITATIONS: None. RESULT: LINES, TUBES and DEVICES: None CHEST: Chest wall anatomy: unremarkable. LUNGS: Small calcified left lung nodule likely granuloma c/w prior granulomatous infection. Additional tiny 2 mm pulmonary nodules scattered throughout bilateral lung [place] MEDIASTINUM: mediastinal lymph nodes, which are at the upper size of normal. calcified left hilar lymph nodes. PERICARDIUM: unremarkable CENTRAL PULMONARY ARTERY: normal dimensions. Assessment is limited due to limited contrast enhancement. CENTRAL VENOUS and PULMONARY VENOUS RETURN: normal. Coronary Sinus: normal size CORONARY ANATOMY: normal origin of the coronary arteries. Mild calcified atherosclerotic changes of the coronary arteries. However, the current study is not optimized for coronary assessment. CARDIAC CHAMBERS: LEFT VENTRICLE: normal size. RIGHT VENTRICLE: normal size Left Atrium: dilated. AGUS: AGUS occluder device in place. Right Atrium: normal size MITRAL VALVE: assessment is limited in the current study - no leaflet calcification. No annular calcification TRICUSPID and PULMONIC VALVE: appear unremarkable. AORTIC VALVE: assessment is limited in this single-phase study, appears trileaflet. Mild leaflet calcification. AORTA: Pathology: No acute aortic pathology. Intervention: None Complications: n/a Aortic Size: Ectasia/Mild Dilation aortic root and ascending aorta. STJ: maintained. Wall Changes: no significant atherosclerotic changes. Arch Branch Vessels: Patent, normal size proximal segments of the arch branch vessels, with mild partially calcified wall changes. AORTIC DIMENSIONS: lower [place] AORTIC ROOT: 4.3 cm , area 11.1 cm2 mid ASCENDING THORACIC AORTA: 4.1 cm, area 12.6 cm2 mid AORTIC ARCH: 3.4 cm proximal DESCENDING THORACIC AORTA: 3.5 cm limited upper ABDOMEN: unremarkable BONES and SOFT TISSUES: Bilateral shoulder prosthesis. Degenerative changes of the thoracic spine. Wastewater Project Engineer (topogram) images: No additional findings. IMPRESSION: 1. Probable trileaflet aortic valve morphology with mild leaflet calcification. 2. Mild dilatation of the aortic root (4.3 cm) and mid ascending aorta (4.1 cm). Remainder of the thoracic aorta is essentially normal in caliber. No acute aortic pathology. No significant calcific atherosclerotic changes throughout the thoracic aorta. No significant pericardial effusion. Electrical Mechanic: KIMBERLY Transcribe Date/Time: May 29 2024 10:40A Dictated by : SOLOMON SOSA MD This examination was interpreted and the report reviewed and electronically signed by: SOLOMON SOSA MD on May 29 2024 1:38PM EST [id number] Normal [facility] CTA Chest vessels W contrast Marcos 05-29-2024 IMPRESSION: 1. Probable trileaflet aortic valve morphology with mild leaflet calcification. 2. Mild dilatation of the aortic root (4.3 cm) and mid ascending aorta (4.1 cm). Remainder of the thoracic aorta is essentially normal in caliber. No acute aortic pathology. No significant calcific atherosclerotic changes throughout the thoracic aorta. No significant pericardial effusion. Electrical Mechanic: PSCB Transcribe Date/Time: May 29 2024 10:40A Dictated by : SOLOMON SOSA MD This examination was interpreted and the report reviewed and electronically signed by: SOLOMON SOSA MD on May 29 2024 1:38PM [facility] * * *Final Report* * * DATE OF EXAM: May 29 2024 10:39AM FVC 0125 - CTA CHEST (GATED) W IVCON / PROCEDURE REASON: Aortic dilatation (HCC) * * * * Physician Interpretation * * * * CTA Aorta chest Direct Image Comparison: None HISTORY: 79 years old Male with dilated thoracic aorta referred for further assessment of the thoracic aorta Evaluation for diagnostic clarification and further treatment options. There is request to define thoracic and aortic anatomy TECHNIQUE: SCANNER: out-patient Siemens Definition Flash Dual source [id number] scanner PROTOCOL: Prospectively triggered helical high-pitch acquisitions ( triggered Flash-mode ) was performed following the intravenous administration of contrast material. Scan Range: thoracic inlet to the diaphragm CT Dose-Length Product (DLP): 356 mGy*cm CT Dose Reduction Employed: Automated exposure control(AEC) and iterative recon CONTRAST: IV administration of 90 ml Omnipaque 350 Scan acquisition: uncomplicated Macro Version: [id number]_[id number] For optimization of anatomic evaluation, advanced 3-D off-line postprocessing was performed on a dedicated workstation by the interpreting physician. STUDY LIMITATIONS: None. RESULT: LINES, TUBES and DEVICES: None CHEST: Chest wall anatomy: unremarkable. LUNGS: Small calcified left lung nodule likely granuloma c/w prior granulomatous infection. Additional tiny 2 mm pulmonary nodules scattered throughout bilateral lung [place] MEDIASTINUM: mediastinal lymph nodes, which are at the upper size of normal. calcified left hilar lymph nodes. PERICARDIUM: unremarkable CENTRAL PULMONARY ARTERY: normal dimensions. Assessment is limited due to limited contrast enhancement. CENTRAL VENOUS and PULMONARY VENOUS RETURN: normal. Coronary Sinus: normal size CORONARY ANATOMY: normal origin of the coronary arteries. Mild calcified atherosclerotic changes of the coronary arteries. However, the current study is not optimized for coronary assessment. CARDIAC CHAMBERS: LEFT VENTRICLE: normal size. RIGHT VENTRICLE: normal size Left Atrium: dilated. AGUS: AGUS occluder device in place. Right Atrium: normal size MITRAL VALVE: assessment is limited in the current study - no leaflet calcification. No annular calcification TRICUSPID and PULMONIC VALVE: appear unremarkable. AORTIC VALVE: assessment is limited in this single-phase study, appears trileaflet. Mild leaflet calcification. AORTA: Pathology: No acute aortic pathology. Intervention: None Complications: n/a Aortic Size: Ectasia/Mild Dilation aortic root and ascending aorta. STJ: maintained. Wall Changes: no significant atherosclerotic changes. Arch Branch Vessels: Patent, normal size proximal segments of the arch branch vessels, with mild partially calcified wall changes. AORTIC DIMENSIONS: lower [place] AORTIC ROOT: 4.3 cm , area 11.1 cm2 mid ASCENDING THORACIC AORTA: 4.1 cm, area 12.6 cm2 mid AORTIC ARCH: 3.4 cm proximal DESCENDING THORACIC AORTA: 3.5 cm limited upper ABDOMEN: unremarkable BONES and SOFT TISSUES: Bilateral shoulder prosthesis. Degenerative changes of the thoracic spine. Wastewater Project Engineer (topogram) images: No additional findings. ADEL RADIOLOGY Provider, [facility] - 05/29/2024 * * *Final Report* * * DATE OF EXAM: May 29 2024 10:39AM [facility] 0125 - CTA CHEST (GATED) W IVCON / PROCEDURE REASON: Aortic dilatation (HCC) * * * * Physician Interpretation * * * * CTA Aorta chest Direct Image Comparison: None HISTORY: 79 years old Male with dilated thoracic aorta referred for further assessment of the thoracic aorta Evaluation for diagnostic clarification and further treatment options. There is request to define thoracic and aortic anatomy TECHNIQUE: SCANNER: out-patient Siemens Definition Flash Dual source [id number] scanner PROTOCOL: Prospectively triggered helical high-pitch acquisitions ( triggered Flash-mode ) was performed following the intravenous administration of contrast material. Scan Range: thoracic inlet to the diaphragm CT Dose-Length Product (DLP): 356 mGy*cm CT Dose Reduction Employed: Automated exposure control(AEC) and iterative recon CONTRAST: IV administration of 90 ml Omnipaque 350 Scan acquisition: uncomplicated Macro Version: [id number]_7 For optimization of anatomic evaluation, advanced 3-D off-line postprocessing was performed on a dedicated workstation by the interpreting physician. STUDY LIMITATIONS: None. RESULT: LINES, TUBES and DEVICES: None CHEST: Chest wall anatomy: unremarkable. LUNGS: Small calcified left lung nodule likely granuloma c/w prior granulomatous infection. Additional tiny 2 mm pulmonary nodules scattered throughout bilateral lung [place]aña MEDIASTINUM: mediastinal lymph nodes, which are at the upper size of normal. calcified left hilar lymph nodes. PERICARDIUM: unremarkable CENTRAL PULMONARY ARTERY: normal dimensions. Assessment is limited due to limited contrast enhancement. CENTRAL VENOUS and PULMONARY VENOUS RETURN: normal. Coronary Sinus: normal size CORONARY ANATOMY: normal origin of the coronary arteries. Mild calcified atherosclerotic changes of the coronary arteries. However, the current study is not optimized for coronary assessment. CARDIAC CHAMBERS: LEFT VENTRICLE: normal size. RIGHT VENTRICLE: normal size Left Atrium: dilated. AGUS: AGUS occluder device in place. Right Atrium: normal size MITRAL VALVE: assessment is limited in the current study - no leaflet calcification. No annular calcification TRICUSPID and PULMONIC VALVE: appear unremarkable. AORTIC VALVE: assessment is limited in this single-phase study, appears trileaflet. Mild leaflet calcification. AORTA: Pathology: No acute aortic pathology. Intervention: None Complications: n/a Aortic Size: Ectasia/Mild Dilation aortic root and ascending aorta. STJ: maintained. Wall Changes: no significant atherosclerotic changes. Arch Branch Vessels: Patent, normal size proximal segments of the arch branch vessels, with mild partially calcified wall changes. AORTIC DIMENSIONS: lower [place] AORTIC ROOT: 4.3 cm , area 11.1 cm2 mid ASCENDING THORACIC AORTA: 4.1 cm, area 12.6 cm2 mid AORTIC ARCH: 3.4 cm proximal DESCENDING THORACIC AORTA: 3.5 cm limited upper ABDOMEN: unremarkable BONES and SOFT TISSUES: Bilateral shoulder prosthesis. Degenerative changes of the thoracic spine. Wastewater Project Engineer (topogram) images: No additional findings. IMPRESSION IMPRESSION: 1. Probable trileaflet aortic valve morphology with mild leaflet calcification. 2. Mild dilatation of the aortic root (4.3 cm) and mid ascending aorta (4.1 cm). Remainder of the thoracic aorta is essentially normal in caliber. No acute aortic pathology. No significant calcific atherosclerotic changes throughout the thoracic aorta. No significant pericardial effusion. Electrical Mechanic: KIMBERLY Transcribe Date/Time: May 29 2024 10:40A Dictated by : SOLOMON SOSA MD This examination was interpreted and the report reviewed and electronically signed by: SOLOMON SOSA MD on May 29 2024 1:38PM EST [facility] Radiology Study observation (narrative) [facility] CTA Chest vessels W contrast IVOrdered By: Ccf Provider on 05-29-2024 [facility] Basic metabolic 2000 panelon 05-28-2024 Anion gap [Moles/Vol] 9 mmol/L Normal 8-15 [facility] Comment on above: Order Comment: Speci men Type: BLOOD SPECIMEN Ordering Facility: [facility] Address: [address] [place] [address] Performed By: #### 1 9123-9, 29773-5 #### [facility] CLIA [id number] [address] [place] [address] Calcium [Mass/Vol] 10.1 mg/dL Normal 8.5-10.2 [facility] Comment on above: Order Comment: Speci men Type: BLOOD SPECIMEN Ordering Facility: [facility] Address: [address] [place] [address] Performed By: #### 1 9123-9, 89459-2 #### [facility] CLIA [id number] [address] [place] [address] Chloride [Moles/Vol] 97 mmol/L Low 98-107 [facility] Comment on above: Order Comment: Speci men Type: BLOOD SPECIMEN Ordering Facility: [facility] Address: [address] [place] [address] Performed By: #### 1 9123-9, 17995-6 #### [facility] CLIA [id number] [address] [place] [address] CO2 [Moles/Vol] 30 mmol/L Normal 22-30 [facility] Comment on above: Order Comment: Speci men Type: BLOOD SPECIMEN Ordering Facility: [facility] Address: [address] [place] [address] Performed By: #### 1 9123-9, 48463-2 #### [facility] CLIA [id number] [address] [place] [address] Creatinine [Mass/Vol] 1.30 mg/dL High 0.73-1.22 [facility] Comment on above: Order Comment: Domenica barboza Type: BLOOD SPECIMEN Ordering Facility: [facility] Address: [address] [place], [place] [id number] Performed By: #### 1 9123-9, 58227-3 #### [facility] CLIA [id number] [address] [place] [address] Creatinine and Glomerular filtration rate.predicted panel (S/P/Bld) 56 mL/min/1.73m??? Low >=60 [facility] Comment on above: Order Comment: Domenica barboza Type: BLOOD SPECIMEN Ordering Facility: [facility] Address: [address] [place] [address] Result Comment: Celia mated Glomerular Filtration Rate [...] actual GFR. Performed By: #### 1 9123-9, 30065-8 #### [facility] CLIA [id number] [address] [place] [address] Glucose [Mass/Vol] 119 mg/dL High 74-99 [facility] Comment on above: Order Comment: Domenica barboza Type: BLOOD SPECIMEN Ordering Facility: [facility] Address: [address] [place] [address] Result Comment: The [place] Diabetes Association (ADA) provides guidance for cutoff [...] Standards of Medical Care in Diabetes 2016, [place] [employer] Association. Diabetes Care. 2016.39(Suppl 1). Performed By: #### 1 9123-9, 74157-7 #### [facility] CLIA [id number] [address] [place] [address] Potassium [Moles/Vol] 4.0 mmol/L Normal 3.7-5.1 [facility] Comment on above: Order Comment: Speci men Type: BLOOD SPECIMEN Ordering Facility: [facility] Address: [address] [place] [id number] Performed By: #### 1 91239, 82724-5 #### [facility] CLIA [id number] [address] [place] [address] Sodium [Moles/Vol] 136 mmol/L Normal 136-144 [facility] Comment on above: Order Comment: Speci men Type: BLOOD SPECIMEN Ordering Facility: [facility] Address: [address] [place] [address] Performed By: #### 1 91239, 80805-8 #### [facility] CLIA [id number] [address] [place] [address] Urea nitrogen [Mass/Vol] 16 mg/dL Normal 9-24 [facility] Comment on above: Order Comment: Speci men Type: BLOOD SPECIMEN Ordering Facility: [facility] Address: [address] [place] [address] Performed By: #### 1 239, 73989-1 #### [facility] CLIA [id number] [address] [place] [address] [facility] Magnesium [Mass/Vol] 1.7 mg/dL Normal 1.7-2.3 [facility] Comment on above: Order Comment: Speci men Type: BLOOD SPECIMEN Ordering Facility: [facility] Address: [address] [place] [address] Performed By: #### 1 91239, 54783-5 #### [facility] CLIA [id number] [address] [place] [address] NT-proBNP [facility] 05-28 Natriuretic peptide.B prohormone N-Terminal [Mass/Vol] 1344 pg/mL High <450 [facility] Comment on above: Order Comment: Speci men Type: BLOOD SPECIMEN Ordering Facility: [facility] Address: [facility] [place] [address] Performed By: #### 1 9123-9, 23732-7 #### [facility] CLIA [id number] [address] [place] [address] Kassie 05-24-2024 CNPN Telephone ([facility]) IRENA PERAZA ([id number]) 1945 M Date Time Provider Department 05/24/24 DION FONTAINE [facility] During your visit today, we recorded the following information about you: Annemarie Fraser 05/24/2024 10:27 AM Signed LOCAL PATIENT Received Call from cards scheduling Irena Peraza is being referred to Pamela Simon M.D. by Justina Natarajan [id number] [facility] [address] Patient diagnosis/Reason for consult: AAA, CAD, AFIB Referral triage process explained: n/a Patient will receive a call from Cardiac NPM after triage review with surgeon to discuss any additional testing and/or consults that will be scheduled. Pt will then receive a call from our scheduling office for scheduling. Please call pt at [phone]. Patient Registration: Registration complete/updated: yes Insurance card(s) scanned in [employer] with in the past year: Yes: Date: 05/11/2024 Pt's MyChart is active. Ok to communicate to pt via [employer] not asked Medical Records: Records in [facility] (internal [facility] records): Yes Imaging in [facility] (internal [facility] records): Yes Additional providers added to Care Teams: Yes Additional Notes/Comments: Enct routed to: Yes, Cardiac NPM for triage Hayde Haider RN 05/25/2024 1:47 PM Signed Irena Rao Stu [id number] [id number] [place] [address] 1945 79 year old Height: 177.8 cm Weight: 96.6 kg BMI: 30.56 Allergies: NKA Blood thinners/ OTC: ASA/OTC GLP-1 agonist: na SGLT2 inhibitor:na Smoking History: quit 1985 EF: 35% Diagnosis: root 5.2 ( echo) clot behind the watchman device, circ 80 %, RCA- 50 % mid stenosis, 70% pre crux, 80 % stenosis at the ostium of post descend artery Secondary Diagnosis: 1+ AR trace MR, MS AND TR, Sign/Symptoms: frequent chest pain Previous cardiac or aortic surgery: s/p Ablation 2003, PVI 2015- Mistry, watchman 2022 Other pertinent medical history: PAF, CAD, GERD, HLD, HTN, PUD, obstructive lung disease, melanoma ( 2012), COPD, Imaging Studies: Cardiac Catheterization: 05/18/2024 CC FINDINGS: Hemodynamics: LV pressure: 101/EDP 5. Aortic [...] distally as a small caliber obtuse marginal 1 branch which demonstrates 80% mid stenosis. RIGHT CORONARY ARTERY: This is a large caliber, dominant vessel demonstrating moderate diffuse luminal irregularity with a more discrete 50% mid stenosis, as well as 70% stenosis pre-crux. There is evidence of an 80% eccentric napkin ring like stenosis at the ostium of the posterior descending artery. TTE: 05/04/24 OSH QUALITY: Technical quality was good. LEFT VENTRICLE: Normal chamber size. Normal left ventricular wall thickness. LV EF: Global left ventricular systolic function is difficult to assess but appears moderately reduced; visually estimated ejection fraction is 35 to 40%. Unable to assess regional wall motion abnormalities however of the septum is abnormal in motion. DIASTOLIC: Not adequately assessed due to heart rhythm. ATRIAL SEPTUM: Visually appears intact. LEFT ATRIUM: Severe dilatation. RIGHT ATRIUM: Mild dilatation. RIGHT VENTRICLE: Normal chamber size. Normal right ventricular systolic function. TRICUSPID VALVE: Normal mobility and thickness. No stenosis with mild regurgitation. Doppler studies reveal mildly (35-45) elevated right sided pressures. RVSP 45 mmHg MITRAL VALVE: Normal mobility and thickness. No evidence of mitral valve stenosis. There is no mitral annular calcification. Trivial mitral regurgitation. AORTIC VALVE: Normal trileaflet appearance. Mildly calcified aortic valve. Mildly diminished mobility. No evidence of aortic valve stenosis. Trivial aortic regurgitation. AORTIC ROOT: Normal diameter and appearance. Ascending aorta is severely dilated (5.2 cm). PULMONIC VALVE: Normal thickness and mobility. No stenosis. No regurgitation. PERICARDIUM: No evidence of pericardial effusion. IVC: Collapses with inspirations. IVC is normal in size. CONCLUSION: 1. Global left ventricular systolic function is difficult to assess but appears moderately reduced; visually estimated ejection fraction of 35 to 40% 2. Normal right ventricular size and systolic function 3. Biatrial dilatation 4. Mild tricuspid regurgitation 5. Mildly elevated right ventricular systolic pressure; RVSP 45 mmHg 6. The ascending aorta is severely dilated and measured at (more content not included)... [facility] PER[facility] ([id number]) 1945 M Date Time Provider Department 05/24/24 [facility] During your visit today, we recorded the following information about you: Annemarie Fraser 05/24/2024 10:14 AM Signed Please advise whether the patient's insurance is in network Thank you! Trini Nazario 05/24/2024 11:26 AM Signed Shayy Baldwin RN 05/25/2024 11:06 AM Signed Ramon, this pt was calling in and is open to be scheduled with Alfred/Zhen any available day or time (He does have a CTA Chest at [place] on ) but he's motivated to make himself available I told him your team was checking his insurance for scheduling He will await your call to make an appt and thanks [phone] x okay Allergies As of Date: 05/24/2024 (No Known Allergies) Date Reviewed: 05/18/2024 Reviewed by: Eris Whittington, BEN - Fully Assessed Reason for Visit: Insurance Inquiry [[id number]] Appointment [186] Prescriptions as of 05/25/2024 - amiodarone (PACERONE) 200 mg tablet 200 mg 3 times daily for 1 week followed by 200 mg 2 times daily for 3 weeks followed by 200 mg daily thereafter - bisoprolol (ZEBETA) 5 mg tablet Take 1 tablet by mouth two times a day. - losartan (COZAAR) 50 mg tablet Take 1 tablet by mouth once daily. - furosemide (LASIX) 20 mg tablet Take 1 tablet by mouth once daily. Can take additional 20 mg as needed for swelling or >2 lb weight gain overnight. - atorvastatin (LIPITOR) 40 mg tablet Take 1 tablet by mouth once daily. Need appointment for future refills - omega-3/dha/epa/fish oil (OMEGA-3 ORAL) Take by mouth. - acetaminophen 650 mg CR tablet Every 12 hours - amoxicillin (AMOXIL) 500 mg capsule TAKE 2 CAPSULES BY MOUTH now then TAKE 1 CAPSULE BY MOUTH EVERY 6 HOURS UNTIL GONE - ketoconazole (NIZORAL) 2 % cream - DULoxetine (CYMBALTA) 60 mg capsule Take 1 capsule by mouth every afternoon. - fluticasone-vilanterol (BREO ELLIPTA) 100-25 mcg/dose inhaler INHALE [...] (FLONASE) 50 mcg/actuation nasal spray Use 1 [place] in each nostril once daily. - coenzyme Q10 100 mg cap Take 100 mg by mouth once daily. - albuterol HFA (PROAIR HFA) 90 mcg/actuation inhaler Inhale 2 Puffs as instructed every 6 hours as needed. - Glucosamine-Chondroit- Vit C-Mn 500-400 mg cap Take 1 capsule by mouth twice daily. Meds Comments as of 09/01/2016: Omeprazole is taken prn Problem List As Of Date 05/24/2024 Noted Resolved PAF (paroxysmal atrial fibrillation) ([facility]) [I48* Former smoker [Z87.891] Obstructive lung disease [...] 05/18/2022 IRB 21-1031 [employer] E (more content not included)... Normal [facility] Urology Office/Clinic Noteon 05-22-2024 Urology Office/Clinic Note Urology Office/Clinic Note Chief Complaint Follow up w/PSA F/T HPI Staff 6 month follow up w/PSA Previous Dx: BPH w/ urinary obstruction, elevated PSA, enlarged prostate, feeling of incomplete bladder emptying, frequency of urination, impotence, microscopic hematuria, mixed incontinence, nocturia, urinary urgency. Previous DX: 10/28/2023- 3.8 & 21.1% *Levitra 20mg PRN, Tolterodine 4mg qd S/p UroLift 09/27/18 by RWR. S/p REZUM 02/04/21 by RWR. Dysuria: denies Incomplete bladder emptying: denies Hematuria: denies Frequency: 5+ since being put on Lasix Urgency: Yes Nocturia: 1x a night Stream: Strong Leaking: denies Post void dripping: denies Wearing pads/ Depends: denies Urge incontinence: denies Stress incontinence: denies Incontinence without Sensory Awareness: denies Abdominal pain: denies Flank pain: denies Sexual complaints: Yes, Pt is currently on Levitra History of Present Illness Tests reviewed: UA, PSA I have reviewed the previous [...] HPI. Physical Exam Vitals & Measurements HR: 92(Peripheral) RR: 18 BP: 133/82 HT: 70 in HT: 178 cm WT: 97.3 kg WT: 214.51 lb BMI: 30.71 General Appearance: alert, no distress, well nourished, well developed male. Assessment/Plan 1. Elevated PSA (R97.20: Elevated prostate specific antigen [PSA]) PSA: 05/26/20 - 3.9 & 28% 12/22/20 - 4.1 & 29% 07/15/22 - 1.8 01/28/23 - 2.6 & 28% 10/28/23 - 3.8 & 21.1% 05/21/24 - 3.2 & 31.3% S/p TRUS/bx 07/13/14. PSA decreased. Will cont to monitor. Reassured pt not to worry as #6 is priority. Follow up 6 mos with PSA F&T or sooner if needed. Pt understands and agrees with plan. 2. OAB (overactive bladder) (N32.81: Overactive bladder) Has failed VESIcare. [1] Taking Tolterodine 4 mg qd. Lasix was doubled due to #6, more frequency. Nocturia still only 1x/night. Legs do not appear edematous today. -Cont Tolterodine wo changes. -Avoid bladder irritants. 3. 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 Cook 09/27/18. S/p Rezum by Dr. Cook 02/04/21. UA neg. IPSS 8 (10). Not currently taking any BPH meds. -Cont sx monitoring. 4. Impotence (N52.9: Male erectile dysfunction, unspecified) Levitra 20 mg prn. Has not been using recently. -Call if wishes to proceed with ICI. 5. Former smoker (Z87.891: Personal history of nicotine dependence) Increased risk for UCC. 6. Afib (I48.91: Unspecified atrial fibrillation) Recently dx with afib, 5.5 cm ascending aortic aneurysm, and CHF. Had heart cath on Tuesday. Going to have a CTA soon. Overall the patient is voiding well. He is happy to hear that his PSA is in the same range as prior levels. Continued follow-up every 6 months is recommended and he agrees with that plan. He will call for refills of his Levitra at 20 mg daily. No doses changes indicated. He is undergoing extensive evaluation of a thoracic aortic aneurysm as well as some congestive heart failure. He has upcoming appointment for CT angiogram. Apparently he had coronary arteriogram demonstrating clear coronaries. Follow-up With When Contact Information ALLAN JARVIS, Nghia Elizabeth, URL [address] [address]- Additional Instructions: 6 mos with PSA F&T Patient Education Prostate Cancer Screening I, Ashlyn Lisa, personally scribed for Dr. Roberson on 05/22/2024 14:19:14. . Documentation recorded by the scribe, Ashlyn Lisa, accurately reflects the services(s) I performed and decisions made by me. Authenticated by Dr. Roberson on 05/22/2024 14:31:46. Portions of this record may have been created with voice recognition artificial intelligence software, specifically [employer], [employer] and or [employer]. Substitutions may have occurred due to the inherent limitations of voice recognition and artificial intelligence software. Problem List/Past Medical History Ongoing Afib Anemia Anemia due to gastrointestinal blood loss Anemia due to GI blood loss BMI 30.0-30.9,adult BPH with urinary obstruction Cancer Carpal tunnel syndrome Colon polyps Depression Discect (more content not included)... Normal [facility] Comment on above: Result Comment: Elec tronically Signed By: Nghia ROBERSON MD P\.br\Date and Time Signed: 05/22/24 14:33 EST\.br\Electronically Co-Signed By: Ashlyn Lisa P\.br\Date and Time Co-Signed: 05/22/24 14:20 EST CHEMISTRYOrdered By: SYSTEM SYSTEM on 05-21-2024 Free PSA [Mass/Vol] 1.0 ng/mL Invalid Interpretation Code Remisol Chem Comment on above: Interpretive Data: T he concentration of free PSA and total PSA determined with assays from different manufacturers can vary due to differences in assay methods and specificity. Values obtained with different toolsmith's assays cannot be used interchangeably. The methodology used to obtain this result was chemiluminescence using [employer]'s Access Hybritech PSA reagent and Access Hybritech free PSA reagent. Free PSA/Total PSA [Mass fraction] 31.3 % Normal >=25.0% Remisol Chem Prostate specific Ag [Mass/Vol] 3.2 ng/mL Normal 0.1 - 3.5 ng/mL Remisol Chem Comment on above: Interpretive Data: T he concentration of PSA determined by different manufacturers can vary due to differences in assay methods and reagent specificity. Values obtained from different assay methods cannot be used interchangeably. The methodology used for this result was chemiluminescence using [employer] Access Hybritech PSA reagent. [id number] 05-18-2024 [id number] HNO ID: [id number] Author: KENDRA PALMA RN Service: ? Author Type: Registered Nurse Type: [id number] Filed: 05/18/2024 15:03 Note Text: CARDIAC CATHETERIZATION DISCHARGE INSTRUCTIONS Date of Catheterization: 05/18/2024 Care of the Incision: Wash hands before touching incision You many shower 24 hours after the procedure. Gently clean the site using soap and water while standing in the shower. Pat dry thoroughly. Do not apply powders or lotions. Remove dressing tomorrow 05/19/2024 Do not submerge in a bathtub or pool of water for five days or until the wound has healed. Inspect the site daily. Activity: You may resume normal activity in 3 days No heavy lifting, pushing or pulling more than 5-10 lb for one week with right arm Normal Observations: Soreness or tenderness may last one week. There is a possibility of bruising at the site that may last two weeks. Seek Medical Attention Immediately if You Experience any of the Following: A large quantity of pulsating blood from the puncture site. If this happens, you must apply direct pressure to stop the bleeding and call 911. Call your doctor if you have increased swelling or develop loss of sensation, numbness, coolness, or tingling in the arm. Call your doctor if you have unusual pain in the arm Signs of infection: redness, warmth to the touch, drainage (other than blood), poorly healing incision, fever over 101 degrees Fahrenheit or chills. Attention Diabetics: ?If taking Glucophage (metformin) or any derivative of Glucophage (metformin), please hold this medication for 48 hours after your catheterization. *For any comments or concerns, please do not hesitate to contact your physician Normal [facility] BRIEF OP NOTon 05-18-2024 BRIEF OP NOT HNO ID: [id number] Author: ANGELI AU MD Service: Cardiovascular Disease Author Type: Physician Type: Brief Op Note Filed: 05/18/2024 12:55 Note Text: BRIEF OPERATIVE / PROCEDURE NOTE LOG ID: [id number] SURGERY/PROCEDURE DATE: 05/18/2024 INCISION/PROCEDURE START TIME: 12:14 INCISION CLOSE/PROCEDURE END TIME: 12:39 SURGEON(S)/PROCEDURALI ST(S) AND CAUSTIC PURIFICATION OPERATOR(S): Surgeons and Role: * Angeli Au MD - Primary No Additional Staff SURGERY/PROCEDURE(S): LHC, SCA, LV pressure, from Rt radial, R band to rt radial, Moderate sedation, no complications. ANESTHESIA: Procedural Sedation FINDINGS: LVEDP: 5 mm Hg. L main: Normal. LAD: Proximal - mid luminal ectasia, 40% cleft like lesions. Cx: 80% stenosis mid small OM1. RCA: Dominant, diffuse luminal irregularity, 70% pre crux stenosis, 80% eccentric napkin ring like osteal PDA stenosis. ESTIMATED BLOOD LOSS: 0 ml SPECIMENS: None COMPLICATIONS: None PRE-OP/PRE-PROCEDURE DIAGNOSIS: New PICKLING GRADER/aneurysmal dilated ascending aorta POST-OP/POST-PROCEDURE DIAGNOSIS: Same as Preop SIGNATURE: Angeli Au MD PATIENT NAME: Irena Peraza DATE: May 18, 2024 TIME: 12:51 PM Normal [facility] Basic metabolic 2000 panelon 05-18-2024 Anion gap [Moles/Vol] 10 mmol/L Normal 8-15 [facility] Comment on above: Order Comment: Speci men Type: BLOOD SPECIMEN Ordering Facility: [facility] Address: [address] [place] [address] Performed By: #### 2 4321-2 #### [facility] CLIA [id number] [address] [place] [address] [place] Calcium [Mass/Vol] 9.7 mg/dL Normal 8.5-10.2 [facility] Comment on above: Order Comment: Speci men Type: BLOOD SPECIMEN Ordering Facility: [facility] Address: [address] [place] [address] Performed By: #### 2 4321-2 #### [facility] CLIA [id number] [address] [place] [address] [place] Chloride [Moles/Vol] 103 mmol/L Normal 98-107 [facility] Comment on above: Order Comment: Speci men Type: BLOOD SPECIMEN Ordering Facility: [facility] Address: [address] [place] [address] Performed By: #### 2 4321-2 #### [facility] CLIA [id number] [address] [place] [address] [place] CO2 [Moles/Vol] 28 mmol/L Normal 22-30 [facility] Comment on above: Order Comment: Speci men Type: BLOOD SPECIMEN Ordering Facility: [facility] Address: [address] [place] [address] Performed By: #### 2 4321-2 #### [facility] CLIA [id number] [address] [place] [address] [place] Creatinine [Mass/Vol] 1.12 mg/dL Normal 0.73-1.22 [facility] Comment on above: Order Comment: Juan Joséjuan barboza Type: BLOOD SPECIMEN Ordering Facility: [facility] Address: [address] [place] [address] Performed By: #### 2 4321-2 #### [facility] CLIA [id number] [address] [place] [address] [place] Creatinine and Glomerular filtration rate.predicted panel (S/P/Bld) 67 mL/min/1.73m??? Normal >=60 [facility] Comment on above: Order Comment: [facility] Type: BLOOD SPECIMEN Ordering Facility: [facility] Address: [address] [place] [address] Result Comment: Celia mated Glomerular Filtration Rate [...] GFR. Performed By: #### 2 4321-2 #### [facility] CLIA [id number] [place] [address] [place] Glucose [Mass/Vol] 99 mg/dL Normal 74-99 [facility] Comment on above: Order Comment: Domenica barboza Type: BLOOD SPECIMEN Ordering Facility: [facility] Address: [address] [place] [address] Result Comment: The [place] Diabetes Association (ADA) provides guidance for cutoff [...] Standards of Medical Care in Diabetes 2016, [place] [employer]. Diabetes Care. 2016.39(Suppl 1). Performed By: #### 2 4321-2 #### [facility] CLIA [id number] [place] [address] [place] Potassium [Moles/Vol] 3.9 mmol/L Normal 3.7-5.1 [facility] Comment on above: Order Comment: Speci men Type: BLOOD SPECIMEN Ordering Facility: [facility] Address: [address] [place] [address] Performed By: #### 2 4321-2 #### [facility] CLIA [id number] [address] [place] [address] [place] Sodium [Moles/Vol] 141 mmol/L Normal 136-144 [facility] Comment on above: Order Comment: Speci men Type: BLOOD SPECIMEN Ordering Facility: [facility] Address: [address] [place] [address] Performed By: #### 2 4321-2 #### [facility] CLIA [id number] [address] [place] [address] [place] Urea nitrogen [Mass/Vol] 13 mg/dL Normal 9-24 [facility] Comment on above: Order Comment: Speci men Type: BLOOD SPECIMEN Ordering Facility: [facility] Address: [address] [place] [address] Performed By: #### 2 4321-2 #### [facility] CLIA [id number] [address] [place] [address] [place] CBC panel Auto (Bld)on 05-18 Erythrocyte distribution width (RBC) [Ratio] 13.5 % Normal 11.5-15.0 [facility] Comment on above: Order Comment: Speci men Type: BLOOD SPECIMEN Ordering Facility: [facility] Address: [address] [place] [address] Performed By: #### 5 8410-2 #### [facility] CLIA [id number] [address] [place] [address] [place] Hematocrit (Bld) [Volume fraction] 38.0 % Low 39.0-51.0 [facility] Comment on above: Order Comment: Speci men Type: BLOOD SPECIMEN Ordering Facility: [facility] Address: [address] [place], [place] [address] Performed By: #### 5 8410-2 #### [facility] CLIA [id number] [address] [place] [address] [place] Hemoglobin (Bld) [Mass/Vol] 12.4 g/dL Low 13.0-17.0 [facility] Comment on above: Order Comment: Speci men Type: BLOOD SPECIMEN Ordering Facility: [facility] Address: [address] [place] [address] Performed By: #### 5 8410-2 #### [facility] CLIA [id number] [address] [place] [address] [place] MCH (RBC) [Entitic mass] 31.7 pg Normal 26.0-34.0 [facility] Comment on above: Order Comment: Speci men Type: BLOOD SPECIMEN Ordering Facility: [facility] Address: [address] [place] [address] Performed By: #### 5 8410-2 #### [facility] CLIA [id number] [address] [place] [address] [place] MCHC (RBC) [Mass/Vol] 32.6 g/dL Normal 30.5-36.0 [facility] Comment on above: Order Comment: Speci men Type: BLOOD SPECIMEN Ordering Facility: [facility] Address: [address] [place] [address] Performed By: #### 5 8410-2 #### [facility] CLIA [id number] [address] [place] [address] [place] MCV (RBC) [Entitic vol] 97.2 fL Normal 80.0-100.0 [facility] Comment on above: Order Comment: Speci men Type: BLOOD SPECIMEN Ordering Facility: [facility] Address: [address] [place] [address] Performed By: #### 5 8410-2 #### [facility] CLIA [id number] [address] [place] [address] [place] Nucleated RBC (Bld) [#/Vol] 10*3/uL Normal <0.01 [facility] Comment on above: Order Comment: Speci men Type: BLOOD SPECIMEN Ordering Facility: [facility] Address: [facility] [place] [address] Performed By: #### 5 8410-2 #### [facility] CLIA [id number] [address] [place] [address] [place] Platelet mean volume (Bld) [Entitic vol] 9.6 fL Normal 9.0-12.7 [facility] Comment on above: Order Comment: Speci men Type: BLOOD SPECIMEN Ordering Facility: [facility] Address: [address] [place] [address] Performed By: #### 5 8410-2 #### [facility] CLIA [id number] [address] [place] [address] [place] Platelets (Bld) [#/Vol] 397 10*3/uL Normal 150-400 [facility] Comment on above: Order Comment: Speci men Type: BLOOD SPECIMEN Ordering Facility: [facility] Address: [address] [place] [address] Performed By: #### 5 8410-2 #### [facility] CLIA [id number] [address] [place] [address] [place] RBC (Bld) [#/Vol] 3.91 10*6/uL Low 4.20-6.00 [facility] Comment on above: Order Comment: Speci men Type: BLOOD SPECIMEN Ordering Facility: [facility] Address: [address] [place] [address] Performed By: #### 5 8410-2 #### [facility] CLIA [id number] [address] [place] [address] [place] WBC (Bld) [#/Vol] 7.92 10*3/uL Normal 3.70-11.00 [facility] Comment on above: Order Comment: Speci men Type: BLOOD SPECIMEN Ordering Facility: [facility] Address: [address] [place] [address] Performed By: #### 5 8410-2 #### [facility] CLIA [id number] [place] [address] [place] CNPNon 05-18-2024 [place] Telephone (CAEPAV) IRENA PERAZA ([id number]) 1945 M Date Time Provider Department 05/18/24 MONI MANDUJANO CAEPAV During your visit today, we recorded the following information about you: Moni Mandujano APRN.CNP 05/18/2024 1:18 PM Signed Please assist pt with the following, case discussed with Dr. Au: Schedule CTA to assess ascending aorta. Establish care with either Dr. Simon or Dr. Fontaine ([place]) at for aortic dilation of 5.2 cm. Thank you! Moni Mandujano APRN.Lakshmi Cole 05/22/2024 8:42 AM Signed Sent message to [facility] to have patient scheduled with either [place] or Zhen Tried calling patient to schedule chest CTA, no answer LVM informing patient of scheduled chest CTA for 06/01 Shayy Alonso, RN 05/25/2024 11:02 AM Signed Pt called today For the past week, he updates he's noticing he's been having more frequent, quick grabbing-type of chest pains that last about 1-2 seconds, to 2-3 seconds that he describes as if someone grabs my heart and then lets go immediately. Noticed even more so in the past 3-4 days so he feels worried about this These are right around my heart No radiation anywhere at all He's not having SOB No numbness or tingling anywhere He is not in any acute distress; but felt he better call to report this Said he had a heart cath done recently Is scheduled for a CTA of the Chest to further assessment ... and needs to establish care with CTS for his aortic dilation of 5.2 cm. B/P 162/80 he has also been up, moving around he said (normally in the 140's systolic) Rechecked 153/88, HR 78 HR's 74, 82-93 He has noticed (there may be a correlation) when he moves his head with these little quick grabbing pains he feels in his chest and then noticed when he moved his head they could also go away and the feeling is like a wave that goes up and down with the intensity but again it comes and goes, isn't in any type of pattern and lasts mere seconds Notices left side lying makes these symptoms more prominent but can get them on his right side as well as on his back UPDATE: We moved up his CTA to 05/29 (from 06/01) ALSO: I tried to get in touch with Dr. Simon/Zhen's scheduling area and after multiple tries unfortunately got disconnected, so NO APPT HAS BEEN MADE YET But; I did see that team was checking on his insurance just yesterday - so I will message the CTS team back that pt is awaiting their call to schedule and is open any day or time to come in FOR THIS MESSAGE TODAY: Pt wanted to make sure Dr. Au and his CARDS team at [facility] were aware of his chest symptoms and if they are concerning enough to be really worried about at this time based on how he describes them? Pt's call back # is: [phone] (H) VMX okay GO TO THE EMERGENCY ROOM OR CALL 911 IF: * You develop any new symptoms * Your condition worsens * You are concerned or anxious about your condition for any other reason. If you have any questions, call back. Esther Francis RN 05/25/2024 5:00 PM Signed Left message for patient regarding symptoms, relayed info from Dr. Au regarding ER evaluation if appropriate. Allergies As of Date: 05/18/2024 (No Known Allergies) Date Reviewed: 05/18/2024 Reviewed by: Eris Whittington RN - Fully Assessed Reason for Visit: clinical update,CTA, referral appt [Other] Primary Visit Diagnosis:Aortic dilatation (HCC) [I77.819] Order(s):CTA CHEST (GATED) W IVCON [1107619] Order #: [id number] FUTURE [] iv contrast (will be provided with radiology test)CTA Chest. No IV access, insert saline lock prior to the sedation, infusion, injection for imaging exam. Discontinue saline lock post exam. If Pt. has a central line or IVAD, may access for administration according to line specific nursing protocol. Once exam is complete flush line and de-access according to line specific nursing protocol in the CT contrast administration guidelines link.Disp: 1 EachRfl: 0 Prescriptions as of 05/25/2024 - losartan (COZAAR) 50 mg tablet Take 2 tablets by mouth once daily. - amiodarone (PACERONE) 200 mg tablet 200 mg 3 times daily for 1 week followed by 200 mg 2 times daily for 3 weeks followed by 200 mg daily thereafter - bisoprolol (ZEBETA) 5 mg tablet Take 1 tablet by mouth two times a day. - furosemide (LASIX) 20 mg tablet Take 1 tablet by mouth once daily. Can take additional 20 mg as needed for swelling or >2 lb weight gain overnight. - atorvastatin (LIPITOR) 40 mg tablet Take 1 tablet by mouth once daily. Need appointment for future refills - omega-3/dha/epa/fish oil (OMEGA-3 ORAL) Take by mouth. - acetaminophen 650 mg CR tablet Every 12 hours - amoxicillin (AMOXIL) 500 mg capsule TAKE 2 CAPSULES BY MOUTH now then TAKE 1 CAPSULE BY MOUTH EVERY 6 HOURS UNTIL GONE - ketoconazole (N (more content not included)... Normal [facility] HISTORY PHYSICALon HISTORY PHYSICAL HNO ID: [id number] Author: ROXANA BATRES APRN.CNP Service: Cardiovascular Medicine Author Type: Nurse Practitioner Type: H&P Filed: 05/18/2024 11:21 Note Text: UPDATED HANDP PRE-CARDIAC CATHETERIZATION SERVICE DATE: 05/18/2024 SERVICE TIME: 11:13 AM PROCEDUREALIST: Surgeons and Role: * Angeli Au MD - Primary PHYSICAL EXAM MUST BE COMPLETED ON ADMISSION The History and Physical (completed in the past 30 days) has been reviewed and the patient has been examined. The contents accurately reflect the patient's condition with the following additions or revisions since the HANDP was completed on 05/08/2024 Planned Procedure: Left Heart Cath + Possible PCI Primary Indication for Procedure: Congestive Heart Failure, New Cardiomyopathy, and new LBBB High Risk Features: History of Prior CABG: No History of Prior PCI: No Cardiomyopathy: Yes Anti-ischemic Meds in Past 2 Weeks: Beta blockers Ejection Fraction: 35% from Previous Echo Risk Appropriateness: Angina Class in Past 2 Weeks: Class III - Marked limitation of ordinary physical activity Cardiogenic Shock: NoHeart Failure: Yes, newly diagnosed Systolic Heart Failure, NYHA; III Stress Test Performed: None EKG Assessment: atrial fibrillation, new LBBB Family History of Premature CAD: None Evaluation for Preop Clearance: no HISTORY OF BLEEDING: No This HANDP can be found in the Electronic Medical Record dated 05/08/2024. Assessment: Cardiac risk assessment completed with detailed review of cardiac test/results as documented above. A 79 yr old male with past medical istory of persistent atrial fib sp PVI (2015) [place] (DT GIB), taken off of tikosyn DT prolonged QT, non obstructive CAD (2012 cath), recent hospitalization for acute decompensated CHF, sob wt gain, with new LBBB, decreased LVEF 35% AND AAA 4.4 cm>5.2 cm), he c/o intermittent chest pain AND sob. Plan: cbc and BMP rechecked, due to preop. Results reviewed. Proceed with Cardiac Cath as scheduled. I spent a total of 20 minutes on the date of the service which included preparing to see the patient, [id number] patient care, completing clinical documentation, obtaining and/or reviewing separately obtained history, performing a medically appropriate examination, counseling and educating the patient/family/caregiv er, and ordering medications, tests, or procedures. SIGNATURE: Roxana Batres APRN.CNP PATIENT NAME: Irena Peraza DATE: May 18, 2024 TIME: 11:13 AM Normal [facility] NURSING PROGon 05-18-2024 NURSING PROG HNO ID: [id number] Author: JILL MARTINEZ RN Service: Nursing Author Type: Registered Nurse Type: Nursing Progress Note Filed: 05/18/2024 15:41 Note Text: Nursing Progress Note Topic of Note: post procedure PATIENT NAME: Irena Peraza Patient Location: CHIEF KNOWLEDGE OFFICER POOL/ CHIEF KNOWLEDGE OFFICER POOL Room: CHIEF KNOWLEDGE OFFICER POOL (CHIEF KNOWLEDGE OFFICER 08) 1400 Report from previous RN. Pt resting in bed, AANDOx3. VSS. Denies pain. IV patent. Assessment WNL see NPR. Afib on tele. Educated orthodontic band maker gudino, activity, and recovery process. States understanding. R radial site with TR band deflation ongoing. WNL.ppp+2. 1515 Discharge instructions reviewed with pt and son, both state understanding. Ambulated in pickens with this RN, slow stady gait. VSS. Dressing to R radial dANDI. 1530 IV d/c'd. Pt dressed. Off unit via w/c. This note was completed by: Jill Martinez [facility] NURSING PROG HNO ID: [id number] Author: ERIS WHITTINGTON, RN Service: Nursing Author Type: Registered Nurse Type: Nursing Progress Note Filed: 05/18/2024 14:16 Note Text: Nursing Progress Note Topic of Note: Daily Note PATIENT NAME: Irena Peraza Patient Location: CHIEF KNOWLEDGE OFFICER POOL/ CHIEF KNOWLEDGE OFFICER POOL Room: CHIEF KNOWLEDGE OFFICER POOL ( INVASIVE CARDIOLOGY) S/p heart catherization via right radial site. TR band on. Palpable radial pulse. VSS. Fingers pink mobile. Brisk cap refill. Dr. Au at bedside . Discussed plan of care with Pt and family. Pt in Atrial fib. As noted upon admission 1330: Air from Tr band removed per policy. Pt tolerates. Took po diet. VSS. See flow sheet. 1400: discharge instruction and f/u given to pt and son. Voices understanding and f/u . Of meds diet and activity. Tolerates air removal from TR band. Report to Latha CONTRERAS. This note was completed by: Eris Whittington [facility] Kassie 05-16-2024 HAY[place] Telephone (CARINF) IRENA PERAZA ([id number]) 1945 M Date Time Provider Department 05/16/24 ANGELI AU During your visit today, we recorded the following information about you: Shayy Alonso RN 05/16/2024 3:41 PM Signed Pt is having an outpatient LHC with Dr. Au in 2 days Calling to inform he has gained weight No longer taking Tikosyn (or Flecainide) as you know Only taking the atenolol, ASA, atorvastatin and Lasix Pt's weight today is 210 lbs (Weighs himself at the same time every day wearing only underwear and a t-shift after urinating) He reports he's gained 7 lbs since May 05 when he was discharged from his local hospital The last 3 lbs being 1 lb, each day over the last 3 days so he thought he better call He takes Lasix 20 mg once daily States he is urinating good amounts of urine about 3-4 x a day Denies SOB Denies orthopnea Said (at baseline) he has BLE edema and it's the same.. not worse than usual Wears high sweat socks that go up about mid-calf There is a 'ring' where the top of the sock is.. but he can see his ankle bone and his feet don't look overtly swollen Nothing is hot, red or painful No swelling noted above this sock line, none in his abdomen, face, hands, etc No CP He has a KardiaMobile device (which is new) and it tells him he's likely in A-fib However -- he is NOT aware of any palpitations or irregular rhythms HR is ranging from about 85-110 B/P readings: Last night 140/72, 102 120/66, 97 114/59, 98 115/58, 93 Last night 10:35 pm KardiaMobile recorded HR 95 (and) gave him the 'possible' a-fib warning 1:30 am it read a HR of 98 and another warning Pt is not in any acute distress We discussed sx that would necessitate him seeking emergency care and he understands HE TRIED TO GET HIS FoxyP2 MOBILE DEVICE TO DO A READING FOR ME ON THE PHONE PT WILL CALL BACK WITH MONICA POLANCO INFO This is an FYI to Cards team Pt's call back # is: [phone] Alessandra Luna RN 05/16/2024 4:43 PM Signed Patient calling back. Spoke with Dagmar and was told it is not possible to take a reading while talking on a phone call. Following that call he did 2 additional readings, both showed possible A Fib HR from 85-103 Denies chest pain or shortness of breath In no acute distress. Reviewed symptoms that would necessitate an ED visit. States understanding. CALL if needed [phone] Rosa Elena Lui PA-C 05/17/2024 2:15 PM Signed Have him take an additional half a tablet of atenolol to help his overall rate control with AFib Cath as scheduled with Dr Au .Rosa Elena Lui PA-C Allergies As of Date: 05/16/2024 (No Known Allergies) Date Reviewed: 05/11/2024 Reviewed by: Julienne Torres OCCA - Fully Assessed Reason for Visit: Clinical Update [1735] Prescriptions as of 05/17/2024 - furosemide (LASIX) 20 mg tablet Take 1 tablet by mouth once daily. Can take additional 20 mg as needed for swelling or >2 lb weight gain overnight. - atorvastatin (LIPITOR) 40 mg tablet Take 1 tablet by mouth once daily. Need appointment for future refills - atenolol (TENORMIN) 50 mg tablet Take [...] 1 capsule by mouth every afternoon. - fluticasone-vilanterol (BREO ELLIPTA) 100-25 mcg/dose inhaler INHALE [...] (FLONASE) 50 mcg/actuation nasal spray Use 1 [place] in each nostril once daily. - coenzyme Q10 100 mg cap Take 100 mg by mouth once daily. - albuterol HFA (PROAIR HFA) 90 mcg/actuation inhaler Inhale 2 Puffs as instructed every 6 hours as need (more content not included)... [facility] Telephone (CARDAV) IRENA PERAZA ([id number]) 1945 M Date Time Provider Department 05/14/24 MONI MANDUJANO During your visit today, we recorded the following information about you: Caryl Jimenez 05/14/2024 11:33 AM Signed ----- Message ----- From: Moni Mandujano APRN.CASHIERS SUPERVISOR Sent: 05/11/2024 6:32 PM EST To: Caryl Jimenez; Angeli Au MD Patient discussed in clinic - originally seen by myself for AF follow up, new start to Flecainide after unexplained QT prolongation with Tikosyn. In the interim, admitted to OSH for new HFrEF (EF 35%, previously normal), also noted to have dilated ascending aorta of 5.2 cm (previously 4.4 cm), new LBBB on ECG. I stopped Flecainide after today's visit given findings. He will need assistance in scheduling outpatient C w/ Dr. Au (discussed in office on 05/11/24). He is not anticoagulated for AF as he has a Watchman device. Labs are in. From EP standpoint - he will need a follow up visit with JAYDEN or Dr. Pino upon his return once above has been done. Caryl Jimenez 05/14/2024 12:00 PM Signed A request has been received from Moni Mandujano CNP to assist in scheduling a heart catheterization with Dr. Angeli Au at [facility]. A voice and Zaask message were left for patient seeking is his preference would be to schedule this week or the week of May 28 to the . Caryl Jimenez 05/14/2024 1:19 PM Signed Patient sent a Zaask response opting for 05/18/2024 date. Procedure instructions submitted via Zaask for patient's review. Allergies As of Date: 05/14/2024 (No Known Allergies) Date Reviewed: 05/11/2024 Reviewed by: Julienne Torres OCCA - Fully Assessed Reason for Visit: Procedure [88] Cmt: Heart cath Prescriptions as of 05/18/2024 - iv contrast (will be provided with radiology test) CTA Chest. No IV access, insert saline lock prior to the sedation, infusion, injection for imaging exam. Discontinue saline lock post exam. If Pt. has a central line or IVAD, may access for administration according to line specific nursing protocol. Once exam is complete flush line and de-access according to line specific nursing protocol in the CT contrast administration guidelines link. - furosemide (LASIX) 20 mg tablet Take 1 tablet by mouth once daily. Can take additional 20 mg as needed for swelling or >2 lb weight gain overnight. - atorvastatin (LIPITOR) 40 mg tablet Take 1 tablet by mouth once daily. Need appointment for future refills - atenolol (TENORMIN) 50 mg tablet Take [...] 1 capsule by mouth every afternoon. - fluticasone-vilanterol (BREO ELLIPTA) 100-25 mcg/dose inhaler INHALE [...] (FLONASE) 50 mcg/actuation nasal spray Use 1 [place] in each nostril once daily. - coenzyme Q10 100 mg cap Take 100 mg by mouth once daily. - albuterol HFA (PROAIR HFA) 90 mcg/actuation inhaler Inhale 2 Puffs as instructed every 6 hours as needed. - Glucosamine-Chondroit- Vit C-Mn 500-400 mg cap Take 1 capsule by mouth twice daily. Meds Comments as of 09/01/2016: Omeprazole is taken prn Problem List As Of Date 05/14/2024 Noted Resolved PAF (paroxysmal atrial fibrillation) ([facility]LY [facility]) [I48* Former smoker [Z87.891] Obstructive lung disease [J44.9] Hyperlipemia [E78.5] PUD (peptic ulcer disease) [K27.9] GERD (gastroesophageal reflux disease) [K21.9] Carpal tunnel syndrome [G56.00] Hx of neck disorder [Z87.39] Rotator cuff tear [M75.100] Arthritis [M19.90] Depression [F32.A] Alcohol use LPRD (laryngopharyngeal reflux disease) [K21.9] 12/30/2011 C (more content not included)... Normal [facility] Basic metabolic 2000 panelon 05-11-2024 Anion gap [Moles/Vol] 10 mmol/L 8 - 15 mmol/L [facility] Calcium [Mass/Vol] 10.0 mg/dL 8.5 - 10. 2 mg/dL [facility] Chloride [Moles/Vol] 100 mmol/L 98 - 10 7 mmol/L [facility] CO2 [Moles/Vol] 27 mmol/L 22 - 30 mmol/L [facility] Creatinine [Mass/Vol] 1.19 mg/dL 0.73 - 1.22 mg/dL [facility] GFR/1.73 sq M.predicted among non-blacks MDRD (S/P/Bld) [Vol rate/Area] 63 mL/min/{1.73_m2} - PINF [facility] Comment on above: Estimated Glomerular Filtration Rate [...] not accurately reflect actual GFR. Glucose [Mass/Vol] 110 mg/dL High 74 - 99 mg/dL [facility] Comment on above: The [place] Diab[employer] s Association (ADA) provides guidance for [...] Standards of Medical Care in Diabetes 2016, [place] Diabetes Association. Diabetes Care. 2016.39(Suppl 1). Interpretation and review of laboratory results Abnormal [facility] Potassium [Moles/Vol] 4.6 mmol/L 3.7 - 5.1 mmol/L [facility] Sodium [Moles/Vol] 137 mmol/L 136 - 144 mmol/L [facility] Urea nitrogen [Mass/Vol] 17 mg/dL 9 - 24 mg/dL [facility] Anion gap [Moles/Vol] 10 mmol/L Normal 8-15 [facility] Comment on above: Order Comment: Speci men Type: BLOOD SPECIMEN Ordering Facility: [facility] Address: [address] [place] [address] Performed By: #### 1 9123-9, 91151-4 #### [facility] CLIA [id number] [address] [place] [address] [place] Calcium [Mass/Vol] 10.0 mg/dL Normal 8.5-10.2 [facility] Comment on above: Order Comment: Speci men Type: BLOOD SPECIMEN Ordering Facility: [facility] Address: [address] [place] [address] Performed By: #### 1 9123-9, 22143-5 #### [facility] CLIA [id number] [address] [place] [address] [place] Chloride [Moles/Vol] 100 mmol/L Normal 98-107 [facility] Comment on above: Order Comment: Speci men Type: BLOOD SPECIMEN Ordering Facility: [facility] Address: [address] [place] [address] Performed By: #### 1 9123-9, 77539-2 #### [facility] CLIA [id number] [address] [place] [address] [place] CO2 [Moles/Vol] 27 mmol/L Normal 22-30 [facility] Comment on above: Order Comment: Speci men Type: BLOOD SPECIMEN Ordering Facility: [facility] Address: [address] [place] [address] Performed By: #### 1 9123-9, 12651-2 #### [facility] CLIA [id number] [facility] [place] [address] [place] Creatinine [Mass/Vol] 1.19 mg/dL Normal 0.73-1.22 [facility] Comment on above: Order Comment: Domenica barboza Type: BLOOD SPECIMEN Ordering Facility: [facility] Address: [address] [place] [address] Performed By: #### 1 9123-9, 05633-5 #### [facility] CLIA [id number] [address] [place] [address] [place] Creatinine and Glomerular filtration rate.predicted panel (S/P/Bld) 63 mL/min/1.73m??? Normal >=60 [facility] Comment on above: Order Comment: Domenica barboza Type: BLOOD SPECIMEN Ordering Facility: [facility] Address: [address] [place] [address] Result Comment: Celia mated Glomerular Filtration Rate [...] actual GFR. Performed By: #### 1 9123-9, 32863-0 #### [facility] CLIA [id number] [address] [facility] [place] [address] [place] Glucose [Mass/Vol] 110 mg/dL High 74-99 [facility] Comment on above: Order Comment: Domenica barboza Type: BLOOD SPECIMEN Ordering Facility: [facility] Address: [address] [place] [address] Result Comment: The [place] Diabetes Association (ADA) provides guidance for cutoff [...] Standards of Medical Care in Diabetes 2016, [place] Diabetes Association. Diabetes Care. 2016.39(Suppl 1). Performed By: #### 1 9123-9, 82103-3 #### [facility] CLIA [id number] [address] [place] [address] [place] Potassium [Moles/Vol] 4.6 mmol/L Normal 3.7-5.1 [facility] Comment on above: Order Comment: Domenica barboza Type: BLOOD SPECIMEN Ordering Facility: [facility] Address: [address] [phone] Performed By: #### 1 [address], #### [facility] [place] [id number] STATES OF [facility] Sodium [Moles/Vol] 137 mmol/L Normal 136-144 [facility] Comment on above: Order Comment: Domenica barboza Type: BLOOD SPECIMEN Ordering Facility: [facility] Address: [address] [phone] Performed By: #### 1 91239, #### [facility] IA [id number] [address] [place], [place] [id number] [place] [address] [place] Urea nitrogen [Mass/Vol] 17 mg/dL Normal 9-24 [facility] Comment on above: Order Comment: Domenica barboza Type: BLOOD SPECIMEN Ordering Facility: [facility] Address: [address] [phone] Performed By: #### 1 [address]12[address], #### [facility] IA [id number] [address] [place] [address] [facility] CNOVon 05-11-2024 CNOV Office Visit (CAEPAV ) IRENA PERAZA ([id number]) 1945 M Date Time Provider Department 05/11/24 9:00 AM MONI MANDUJANO During your visit today, we recorded the following information about you: Weight 95.7 kg Moni Mandujano APRN.CASHIERS SUPERVISOR 05/11/2024 6:33 PM Signed [facility] Department of Cardiovascular Medicine SECTION OF CARDIAC PACING and ELECTROPHYSIOLOGY OUTPATIENT VISIT DATE May 08, 2024 OUTPATIENT VISIT TYPE ESTABLISHED PRIMARY CARE PHYSICIAN: Scarlett Gaviria NP [address] [place] [phone] REFERRING PHYSICIAN: No referring provider defined for this encounter. CHIEF COMPLAINT: Follow up AF HISTORY OF PRESENT ILLNESS: Mr. Peraza is a 79 year old male who presents today for follow-up visit. Previously evalauted by Dr. Simms, Dr. Au, Dr. Kemp, Dr. Pino w/ PMHx of pAF (dx >20 years ago, remote h/o PVI at OSH in [place], 2016: had recurrence of AF s/p Watchman device (05/19/22), h/o DCCV, AAD hx: Tikosyn initiated in 2018, discontinued 04/2024 d/t QT prolongation, now on Flecainide), h/o GIB, ETOH, h/o melanoma, BCC, h/o non-obs CAD ([facility] 03/2013 - 40-50% stenosis of LAD, 06/03/23: nuclear stress test negative for inducible ischemia, fixed perfusion of RCA likely diaphragmatic attenuation, EF normal), HTN, HLD, GERD, depression, COPD. Mr. Peraza was last seen by Dr. Pino on 04/12/24. At that visit, patients ECG showed QTc of 536 ms, measurement even longer when reviewed by Dr. Pino. Kidney function and electrolytes normal AND unchanged, patient denied any new medications. He was instructed to hold his Tikosyn and return to clinic the following day for repeat ECG. On 04/13/24, he returned for ECG which showed QTc of 489 ms. Although improved, decision made by Dr. Pino to discontinue Tikosyn given no explanation for QT prolongation. Plan moving forward was to monitor pt and discuss management strategies when he had recurrence of AF. Unfortunately, Mr. Peraza had recurrence of AF almost immediately after stopping Tikosyn, reports being highly symptomatic w/ fatigue and SOB. On 04/23/24, he was instructed to start AAD Flecainide 100 mg BID w/ plan for outpatient DCCV if he did not convert to SR after starting new medication. His plan of care was then further complicated by an admission to [facility] on 05/03/24 where he had initially presented for shortness of breath. His ECG on hospital admission demonstrated AF with RVR and a new LBBB. He was admitted AND treated for ADHF AND placed on a Bumex gtt for diuresis. Updated echo obtained during admission significant for a newly reduced LVEF of ~35% (previously normal), and concern for severe dilation of patients ascending aorta (measured at 5.2 cm, previously measured 4.4 cm). 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 Mr. Peraza is here today with his son who works as a flight nurse, Since hospital discharge, Mr. Peraza reports that he has been feeling OK, reports some ANDERSEN AND feeling tired, usual symptoms associated w/ recurrence of AF. His ECG today shows rate controlled AF w/ new LBBB. He denies ever having any chest pain or other symptoms concerning for anginal equivalent. He has a [employer] mobile that he uses to monitor his rate/rhythm at home, AF rates averaging between 80's - low 100's bpm, states starting Flecainide has not made much of an impact on his HR. PAST CARDIAC HISTORY: See above/below PAST MEDICAL HISTORY Diagnosis Date Arthritis CAD (coronary artery disease) 03/26/2013 40-50% mid LAD Carpal tunnel syndrome Cervical spine pain COPD (chronic obstructive pulmonary disease) (HCC) Depression Diastolic heart failure (HCC) GERD (gastroesophageal reflux disease) HTN (hypertension), benign patient denies this Hypercholesterolemia Hyperlipemia Left atrial dilatation Melanoma ([facility]) 2012 left breast melanoma s/p surgery. Obstructive lung disease (HCC) PAF (paroxysmal atrial fibrillation) (HCC) 2003 s/p ablation 2003 PUD (peptic ulcer disease) remote RLS (restless legs syndrome) Rotator cuff tear x2 each shoulder PAST SURGICAL HISTORY Procedure Laterality Date APPENDECTOMY HX BACK SURGERY HX L5, S1 removed CARDIAC CATH 03/26/13 40-50% disease in mid LAD CARDIOVERSION 11/14/15 CATHETER, ABLATION A-, 2003 at [facility] HERNIA REPAIR HX 05/2011 left inguinal PAST SURGICAL HISTORY OF skin cancer removed from back, and from leg, nose,; also cyst removed PAST SURGICAL HISTORY OF 2012 Melanoma removed from left breast. PAST SURGICAL HISTORY OF 2012 bilateral cataract removal PAST SURGICAL HISTORY OF Left carpal tunnel release PAS (more content not included)... Normal [facility] [id number] 05-11-2024 ECG01 Ventricular Rate : 8 5 BPM QRS Duration : 134 ms Q-T Interval : 400 ms QTC Calculation(Bazett) : 476 ms Calculated R Orange : 6 degrees Calculated T Orange : 51 degrees ATRIAL FIBRILLATION COMPLETE LEFT BUNDLE BRANCH BLOCK ABNORMAL ECG Confirmed by DARIEL DUVALL MD ([id number]) on 05/12/2024 1:04:43 PM NAME : IRENA PERAZA PID : [id number] : 1945 Gender : Male Race : ORD : Procedure Date : May 11 2024 09:05:43 Edit Date : May 12 2024 13:04:48 Diagnosis: ATRIAL FIBRILLATION COMPLETE LEFT BUNDLE BRANCH BLOCK ABNORMAL ECG Confirmed by DARIEL DUVALL MD ([id number]) on 05/12/2024 1:04:43 PM Test Reason : Location : 192 : AVCRD Overread By : DARIEL DUVALL MD Edited By : DARIEL DUVALL MD Referred By : , Acquired by : , Normal [facility] FLECAINIDE BLDon 05-11-2024 FLECAINIDE 0.58 ug/mL Normal 0.20-1.00 [facility] Comment on above: Order Comment: Speci men Type: BLOOD SPECIMEN Ordering Facility: [facility] Address: [address] [place] [address] Result Comment: INTE RPRETIVE INFORMATION: Flecainide Therapeutic Range: 0.20-1.00 ug/mL Toxic: Greater than 1.50 ug/mL Toxic concentrations may cause cardiac abnormalities, hypotension and seizure. This test was developed and its performance characteristics determined by [facility]. It has not been cleared or approved by the US Food and Drug Administration. This test was performed in a CLIA certified laboratory and is intended for clinical purposes. Performed By: [facility] [address] [place] [address] Enrollment Processor: Payam Gaona MD, PhD CLIA Number: [id number] Performed By: #### F LEC #### [facility] CLIA [id number] [address] [place] [address] MAGNESIUMon 05-11-2024 Magnesium [Mass/Vol] 1.8 mg/dL 1.7 - 2 .3 mg/dL [facility] Magnesium SerPl-mCncon 05-11 Magnesium [Mass/Vol] 1.8 mg/dL Normal 1.7-2.3 [facility] Comment on above: Order Comment: Speci men Type: BLOOD SPECIMEN Ordering Facility: [facility] Address: [address] [place] [address] Performed By: #### 1 9123-9, 21293-0 #### [facility] CLIA [id number] [facility] [place] [address] [place] Magnesium [Mass/Vol]on 05-11 Interpretation and review of laboratory results Normal [facility] No Panel Informationon 05-11 [facility] CNPNon 05-04-2024 CNPN Telephone (SHANTA) IRENA PERAZA ([id number]) 1945 M Date Time Provider Department 05/04/24 MOUSTAHPA MELVIN During your visit today, we recorded the following information about you: Keerthi Babcock, RN 05/04/2024 2:13 PM Signed Patient calling office today to report he is hospitalized at a local hospital s-fib and CHF. Requesting to transfer his care from Dr. Pino. Last seen by Dr. Pino on 04/12/2024. Transferred to Cardiology scheduling. Allergies As of Date: 05/04/2024 (No Known Allergies) Date Reviewed: 04/12/2024 Reviewed by: Nadir Flaherty LPN - Fully Assessed Reason for Visit: A-fib [167] Prescriptions as of 05/04/2024 - flecainide (TAMBOCOR) 100 mg tablet Take [...] 1 capsule by mouth every afternoon. - fluticasone-vilanterol (BREO ELLIPTA) 100-25 mcg/dose inhaler INHALE [...] (FLONASE) 50 mcg/actuation nasal spray Use 1 [place] in each nostril once daily. - coenzyme Q10 100 mg cap Take 100 mg by mouth once daily. - albuterol HFA (PROAIR HFA) 90 mcg/actuation inhaler Inhale 2 Puffs as instructed every 6 hours as needed. - Glucosamine-Chondroit- Vit C-Mn 500-400 mg cap Take 1 capsule by mouth twice daily. Meds Comments as of 09/01/2016: Omeprazole is taken prn Problem List As Of Date 05/04/2024 Noted Resolved PAF (paroxysmal atrial fibrillation) ([facility]) [I48* Former smoker [Z87.891] Obstructive lung disease [...] left rotator cuff [M75.122] 05/29/2015 Melanoma ([facility]) [C43.9] 07/23/2015 HTN (hypertension), benign [I10] 07/23/2015 [...] radiculopathy [M54.16] 12/20/2023 Lumbar spondylosis [M47.816] 02/14/2024 Encounter Status:Closed by KEERTHI BABCOCK on 05/04/24 [facility] Kassie 04-23-2024 CNPN Telephone (CARDAV) IRENA PERAZA ([id number]) 1945 M Date Time Provider Department 04/23/24 ODALYS PINO During your visit today, we recorded the following information about you: Caryl Jimenez 04/23/2024 1:44 PM Signed Patient called, leaving a message on procedure space scheduler's voice mail. Feels he is in a fib, inquiring if he may be ordered an EKG locally at [place] or at a [facility] facility to confirm. Please call patient via his cell [phone]. Moustapha Melvin APRN.CNP 04/23/2024 2:31 PM Signed EKG ordered Moustapha Melvin APRN.Moustapha Chapin APRN.CNP 04/23/2024 2:31 PM Signed Addended by: [...] this faxed. Medication sent to [facility] in [place]. Should NOT resume Tikosyn, ever. Thank you! Moustapha Melvin APRN.Moustapha Chapin APRN.CASHIERS SUPERVISOR 04/24/2024 8:42 AM Signed Addended by: MOUSTAPHA MELVIN on: 04/24/2024 08:42 AM Modules accepted: Akua Morris RN 04/24/2024 10:16 AM Signed Pt went [...] is aware to NOT resume tikosyn. Akua Weinstein RN 04/24/2024 11:26 AM Signed He should definitely NOT take Eliquis. Did someone call in flecainide? Akua Weinstein RN 04/24/2024 11:30 AM Signed Patient aware to not taking the eluquis. Pt aware that EKG needs to be done in one week. Akua Weinstein RN 04/24/2024 11:34 AM Signed EKG from [...] Primary Visit Diagnosis:PAF (paroxysmal atrial fibrillation) ([facility]) [I48.0] Order(s):ECG COMPLETE [ECG01] Order #: [id number] FUTURE flecainide (TAMBOCOR) 100 mg tabletTake 1 tablet by mouth two times a day.Disp: 60 tabletRfl: 2 ECG COMPLETE [ECG01] Order #: [id number] Prescriptions as of 04/24/2024 - flecainide (TAMBOCOR) [...] 1 capsule by mouth every afternoon. - fluticasone-vilanterol (BREO ELLIPTA) 100-25 mcg/dose inhaler INHALE [...] (FLONASE) 50 mcg/actuation nasal spray Use 1 [place] in each nostril once daily. - coenzyme Q10 100 mg cap Take 100 mg by mouth once daily. - albuterol HFA (PROAIR HFA) 90 mcg/actuation inhaler Inhale 2 Puffs as instructed ever (more content not included)... Normal [facility] CNOVon 04-13-2024 CNOV Office Visit (CARDAV ) IRENA PERAZA ([id number]) 1945 M Date Time Provider Department 04/13/24 11:00 AM NURSE CARD [facility] REJ CARDSUZE During your visit today, we recorded the following information about you: Akua Weinstein RN 05/29/2024 10:48 AM Signed EKG completed. Pt with no voiced complaints. Pt has stopped taking tikosyn. Dr. Pino notified of the completion. Akua Weinstein RN 05/29/2024 10:48 AM Signed Spoke with patient , he is aware not to restart the tikosyn and to notify us if he were to go into A fib. Pt verifies understanding of these instructions. Referring Provider: ODALYS PINO [[id number]] Allergies As of Date: 04/13/2024 (No Known Allergies) Date Reviewed: 04/12/2024 Reviewed by: Nadir Flaherty LPN - Fully Assessed Reason for Visit: Nurse Visit [792] Visit Diagnosis:Paroxysmal atrial fibrillation (HCC) [I48.0] Order(s):ECG COMPLETE [ECG01] Order #: [id number] Prescriptions as of 05/29/2024 - spironolactone (ALDACTONE) 25 mg tablet Take 0.5 tablets by mouth once daily. - losartan (COZAAR) 50 mg tablet Take 2 tablets by mouth once daily. - amiodarone (PACERONE) 200 mg tablet 200 mg 3 times daily for 1 week followed by 200 mg 2 times daily for 3 weeks followed by 200 mg daily thereafter - bisoprolol (ZEBETA) 5 mg tablet Take 1 tablet by mouth two times a day. - furosemide (LASIX) 20 mg tablet Take 1 tablet by mouth once daily. Can take additional 20 mg as needed for swelling or >2 lb weight gain overnight. - atorvastatin (LIPITOR) 40 mg tablet Take 1 tablet by mouth once daily. Need appointment for future refills - omega-3/dha/epa/fish oil (OMEGA-3 ORAL) Take by mouth. - acetaminophen 650 mg CR tablet Every 12 hours - amoxicillin (AMOXIL) 500 mg capsule TAKE 2 CAPSULES BY MOUTH now then TAKE 1 CAPSULE BY MOUTH EVERY 6 HOURS UNTIL GONE - ketoconazole (NIZORAL) 2 % cream - DULoxetine (CYMBALTA) 60 mg capsule Take 1 capsule by mouth every afternoon. - fluticasone-vilanterol (BREO ELLIPTA) 100-25 mcg/dose inhaler INHALE [...] (FLONASE) 50 mcg/actuation nasal spray Use 1 [place] in each nostril once daily. - coenzyme Q10 100 mg cap Take 100 mg by mouth once daily. - albuterol HFA (PROAIR HFA) 90 mcg/actuation inhaler Inhale 2 Puffs as instructed every 6 hours as needed. - Glucosamine-Chondroit- Vit C-Mn 500-400 mg cap Take 1 capsule by mouth twice daily. Meds Comments as of 09/01/2016: Omeprazole is taken prn Problem List As Of Date 04/13/2024 Noted Resolved PAF (paroxysmal atrial fibrillation) ([facility]) [I48* Former smoker [Z87.891] Obstructive lung disease [...] left rotator cuff [M75.122] 05/29/2015 Melanoma ([facility]) [C43.9] 07/23/2015 HTN (hypertension), benign [I10] 07/23/2015 [...] [Z51.81, Z*09/06/2018 Gastrointestinal hemorrhage [K92.2] 05/18/2022 IRB (more content not included)... Normal [facility] CNPSocorro 04-13-2024 CNPN Telephone (CAEPAV) IRENA PERAZA ([id number]) 1945 M Date Time Provider Department 04/13/24 ODALYS PINO CAEPAV During your visit today, we recorded the following information about you: Odalys Pino MD 04/13/2024 11:47 AM Signed He came [...] Allergies) Date Reviewed: 04/12/2024 Reviewed by: Nadir Flaehrty LPN - Fully Assessed Prescriptions as of [...] 1 capsule by mouth every afternoon. - fluticasone-vilanterol (BREO ELLIPTA) 100-25 mcg/dose inhaler INHALE [...] (FLONASE) 50 mcg/actuation nasal spray Use 1 [place] in each nostril once daily. - coenzyme Q10 100 mg cap Take 100 mg by mouth once daily. - albuterol HFA (PROAIR HFA) 90 mcg/actuation inhaler Inhale 2 Puffs as instructed every 6 hours as needed. - Glucosamine-Chondroit- Vit C-Mn 500-400 mg cap Take 1 capsule by mouth twice daily. Meds Comments as of 09/01/2016: Omeprazole is taken prn Problem List As Of Date 04/13/2024 Noted Resolved PAF (paroxysmal atrial fibrillation) (HCC) [...] times a day. Encounter Status:Closed by ODALYS PINO on 04/13/24 Normal [facility] ECG COMPLETEon 04-13-2024 ECG COMPLETE Ventricular Rate : 9 2 BPM Atrial Rate : 92 BPM P-R Interval : 208 ms QRS Duration : 80 ms Q-T Interval : 396 ms QTC Calculation(Bazett) : 489 ms Calculated P Orange : 61 degrees Calculated R Orange : 56 degrees Calculated T Orange : 26 degrees SINUS RHYTHM WITH PREMATURE ATRIAL COMPLEXES WITH ABERRANT CONDUCTION PROLONGED QT INTERVAL OR TU FUSION, CONSIDER HYPOKALEMIA ABNORMAL ECG Confirmed by QUIANA CALLES MD ([id number]) on 04/13/2024 12:24:44 PM NAME : IRENA PERAZA PID : [id number] : 1945 Gender : Male Race : ORD : [id number] Procedure Date : Apr 13 2024 11:06:22 [...] : QUIANA CALLES MD Edited By : QUIANA CALLES MD Referred By : , Acquired by : , Normal [facility] CNOVon 04-12-2024 CNOV Office Visit (CAEPAV ) IRENA PERAZA ([id number]) 1945 M Date Time Provider Department 04/12/24 10:00 AM ODALYS PINO During your visit today, we recorded the following information about you: Pulse Blood pressure Weight Height 86/minute 118/78 97.5 kg 1.778 m Odalys Pino MD 04/12/2024 10:39 AM Signed xxx Allergies As of Date: 04/12/2024 (No Known Allergies) Date Reviewed: 04/12/2024 Reviewed by: Nadir Flaherty LPN - Fully Assessed Reason for Visit: Follow Up [171] Primary Visit Diagnosis:Paroxysmal atrial fibrillation (HCC) [I48.0] Order(s):ECG COMPLETE [ECG01] Order #: [id number]. #:[id number]--[id number] g ECG COMPLETE [ECG01] Order #: [id number] MAGNESIUM [SQMG1] Order #: [id number] FUTURE RENAL FUNCTION PANEL [SQRFP] Order #: [id number] FUTURE ECG COMPLETE [ECG01] Order #: [id number] FUTURE Prescriptions as of 04/12/2024 - atorvastatin [...] 1 capsule by mouth every afternoon. - fluticasone-vilanterol (BREO ELLIPTA) 100-25 mcg/dose inhaler INHALE [...] (FLONASE) 50 mcg/actuation nasal spray Use 1 [place] in each nostril once daily. - coenzyme Q10 100 mg cap Take 100 mg by mouth once daily. - albuterol HFA (PROAIR HFA) 90 mcg/actuation inhaler Inhale 2 Puffs as instructed every 6 hours as needed. - Glucosamine-Chondroit- Vit C-Mn 500-400 mg cap Take 1 capsule by mouth twice daily. Meds Comments as of 09/01/2016: Omeprazole is taken prn Problem List As Of Date 04/12/2024 Noted Resolved PAF (paroxysmal atrial fibrillation) ([facility]) [I48* Former smoker [Z87.891] Obstructive lung disease [...] Encounter P (more content not included)... Normal [facility] [id number] 04-12-2024 ECG01 Ventricular Rate : 8 6 BPM Atrial Rate : 86 BPM P-R Interval : 228 ms QRS Duration : 86 ms Q-T Interval : 448 ms QTC Calculation(Bazett) : 536 ms Calculated P Orange : 49 degrees Calculated R Orange : 38 degrees Calculated T Orange : 41 degrees SINUS RHYTHM WITH SINUS ARRHYTHMIA WITH 1ST DEGREE AV BLOCK PROLONGED QT INTERVAL OR TU FUSION, CONSIDER HYPOKALEMIA ABNORMAL ECG Confirmed by CARMELO WHITAKER MD ([id number]) on 04/26/2024 2:12:18 PM NAME : IRENA PERAZA PID : [id number] : 1945 Gender : Male Race : ORD : Procedure Date : Apr 12 2024 10:00:36 Edit Date : Apr 26 2024 14:13:45 Diagnosis: SINUS RHYTHM WITH SINUS ARRHYTHMIA WITH 1ST DEGREE AV BLOCK PROLONGED QT INTERVAL OR TU FUSION, CONSIDER HYPOKALEMIA ABNORMAL ECG Confirmed by CARMELO WHITAKER MD ([id number]) on 04/26/2024 2:12:18 PM Test Reason : Location : 192 : [facility] Overread By : CARMELO WHITAKER MD Edited By : CARMELO WHITAKER MD Referred By : , Acquired by : , Normal [facility] MAGNESIUMon 04-12-2024 Magnesium [Mass/Vol] 2.0 mg/dL 1.7 - 2 .3 mg/dL [facility] Magnesium SerPl-mCncon 04-12 Magnesium [Mass/Vol] 2.0 mg/dL Normal 1.7-2.3 [facility] Comment on above: Order Comment: Speci men Type: BLOOD SPECIMEN Ordering Facility: [facility] Address: [address] [place] [address] Performed By: #### 1 9123-9, 89108-7 #### [facility] CLIA [id number] [address] [place] [address] [place] Magnesium [Mass/Vol]on 04-12 Interpretation and review of laboratory results Normal [facility] No Panel Informationon 04-12 [facility] Renal function 2000 panelon 04-12-2024 Albumin [Mass/Vol] 4.1 g/dL 3.9 - 4.9 g/dL [facility] Anion gap [Moles/Vol] 11 mmol/L 8 - 15 mmol/L [facility] Calcium [Mass/Vol] 9.8 mg/dL 8.5 - 10. 2 mg/dL [facility] Chloride [Moles/Vol] 98 mmol/L 98 - 10 7 mmol/L [facility] CO2 [Moles/Vol] 29 mmol/L 22 - 30 mmol/L [facility] Creatinine [Mass/Vol] 1.07 mg/dL 0.73 - 1.22 mg/dL [facility] GFR/1.73 sq M.predicted among non-blacks MDRD (S/P/Bld) [Vol rate/Area] 71 mL/min/{1.73_m2} - PINF [facility] Comment on above: Estimated Glomerular Filtration Rate [...] 107 mg/dL High 74 - 99 mg/dL [facility] Comment on above: The [place] Diabete s Association (ADA) provides guidance for [...] Standards of Medical Care in Diabetes 2016, [place] Diabetes Association. Diabetes Care. 2016.39(Suppl 1). Interpretation and review of laboratory results Abnormal [facility] Phosphate [Mass/Vol] 2.6 mg/dL Low 2.7 - 4 .8 mg/dL [facility] Potassium [Moles/Vol] 4.2 mmol/L 3.7 - 5.1 mmol/L [facility] Sodium [Moles/Vol] 138 mmol/L 136 - 144 mmol/L [facility] Urea nitrogen [Mass/Vol] 10 mg/dL 9 - 24 mg/dL [facility] Albumin [Mass/Vol] 4.1 g/dL Normal 3.9-4.9 [facility] Comment on above: Order Comment: Speci men Type: BLOOD SPECIMEN Ordering Facility: [facility] Address: [address] [place] [address] Performed By: #### 1 9123-9, 41683-0 #### [facility] CLIA [id number] [address] [place] [address] [place] Anion gap [Moles/Vol] 11 mmol/L Normal 8-15 [facility] Comment on above: Order Comment: Speci men Type: BLOOD SPECIMEN Ordering Facility: [facility] Address: [address] [place] [address] Performed By: #### 1 9123-9, #### [facility] CLIA [id number] [address] [place] [address] [place] Calcium [Mass/Vol] 9.8 mg/dL Normal 8.5-10.2 [facility] Comment on above: Order Comment: Speci men Type: BLOOD SPECIMEN Ordering Facility: [facility] Address: [address] [place] [address] Performed By: #### 1 91239, #### [facility] CLIA [id number] [address] [place] [address] [place] Chloride [Moles/Vol] 98 mmol/L Normal 98-107 [facility] Comment on above: Order Comment: Speci men Type: BLOOD SPECIMEN Ordering Facility: [facility] Address: [address] [place] [address] Performed By: #### 1 9123-9, #### [facility] CLIA [id number] [address] [place] [address] [place] CO2 [Moles/Vol] 29 mmol/L Normal 22-30 [facility] Comment on above: Order Comment: Speci men Type: BLOOD SPECIMEN Ordering Facility: [facility] Address: [address] [place] [address] Performed By: #### 1 9123-9, 43286-8 #### [facility] CLIA [id number] [address] [place] [address] [place] Creatinine [Mass/Vol] 1.07 mg/dL Normal 0.73-1.22 [facility] Comment on above: Order Comment: Domenica barboza Type: BLOOD SPECIMEN Ordering Facility: [facility] Address: [address] [place] [address] Performed By: #### 1 9123-9, 31564-9 #### [facility] CLIA [id number] [address] [place] [address] [place] Creatinine and Glomerular filtration rate.predicted panel (S/P/Bld) 71 mL/min/1.73m??? Normal >=60 [facility] Comment on above: Order Comment: Domenica barboza Type: BLOOD SPECIMEN Ordering Facility: [facility] Address: [address] [place] [address] Result Comment: Celia mated Glomerular Filtration Rate [...] actual GFR. Performed By: #### 1 9123-9, 09642-2 #### [facility] CLIA [id number] [address] [place] [address] [place] Glucose [Mass/Vol] 107 mg/dL High 74-99 [facility] Comment on above: Order Comment: Domenica barboza Type: BLOOD SPECIMEN Ordering Facility: [facility] Address: [address] [place] [address] Result Comment: The [place] Diabetes Association (ADA) provides guidance for cutoff [...] Standards of Medical Care in Diabetes 2016, [place] Diabetes Association. Diabetes Care. 2016.39(Suppl 1). Performed By: #### 1 9123-9, 15461-0 #### [facility] CLIA [id number] [address] [place] [address] [place] Phosphate [Mass/Vol] 2.6 mg/dL Low 2.7-4.8 [facility] Comment on above: Order Comment: Speci men Type: BLOOD SPECIMEN Ordering Facility: [facility] Address: [address] [place] [address] Performed By: #### 1 9123-9, 94233-3 #### [facility] CLIA [id number] [address] [place] [address] [place] Potassium [Moles/Vol] 4.2 mmol/L Normal 3.7-5.1 [facility] Comment on above: Order Comment: Speci men Type: BLOOD SPECIMEN Ordering Facility: [facility] Address: [address] [place] [address] Performed By: #### 1 9123-9, 68045-3 #### [facility] CLIA [id number] [address] [place] [address] [place] Sodium [Moles/Vol] 138 mmol/L Normal 136-144 [facility] Comment on above: Order Comment: Speci men Type: BLOOD SPECIMEN Ordering Facility: [facility] Address: [address] [place] [address] Performed By: #### 1 9123-9, 62799-7 #### [facility] CLIA [id number] [address] [place] [address] [place] Urea nitrogen [Mass/Vol] 10 mg/dL Normal 9-24 [facility] Comment on above: Order Comment: Speci men Type: BLOOD SPECIMEN Ordering Facility: [facility] Address: [facility] [place] [address] Performed By: #### 1 9123-9, 78336-3 #### [facility] CLIA [id number] [address] [place] [address] [facility] CBC w/ Auto Diffon 4 Basophils/100 WBC (Bld) 0.7 % Normal 0.0-2.[address] [facility] Comment on above: Performed By: #### 2 539964 #### [facility] [address] [place] [address] Basophils/Leukocytes Auto (Bld) [Pure # fraction] 0.0 E9/L Normal 0.0-0.[address] [facility] Comment on above: Performed By: #### 2 213673 #### [facility] [address] [place] [address] Eosinophils (Bld) [#/Vol] 0.2 E9/L Normal 0.0-0.[address] [facility] Comment on above: Performed By: #### 2 762563 #### [facility] [address] [place] [address] Eosinophils/100 WBC (Bld) 2.8 % Normal 0.0-8.[address] [facility] Comment on above: Performed By: #### 2 331838 #### [facility] [address] [place] [address] Erythrocyte distribution width (RBC) [Ratio] 14.0 % Normal 10.9-14.[address] [facility] Comment on above: Performed By: #### 2 597377 #### [facility] [address] [place] [address] Hematocrit (Bld) [Volume fraction] 37.9 % Normal 37.7-49.[address] [facility] Comment on above: Performed By: #### 2 490306 #### [facility] [address] [place] [address] Hemoglobin (Bld) [Mass/Vol] 12.9 g/dL Low 13.5-17.[address] [facility] Comment on above: Performed By: #### 2 480309 #### [facility] [address] [place] [address] Lymphocytes (Bld) [#/Vol] 0.6 E9/L Low 1.0-4.[address] [facility] Comment on above: Performed By: #### 2 622615 #### [facility] [address] [place] [address] Lymphocytes/100 WBC (Bld) 11.2 % Low 14.0-50.[address] [facility] Comment on above: Performed By: #### 2 752838 #### [facility] [address] [place] [address] MCH (RBC) [Entitic mass] 32.5 pg Normal 27.0-34.[address] [facility] Comment on above: Performed By: #### 2 095430 #### [facility] [address] [place] [address] MCHC (RBC) [Mass/Vol] 33.9 g/dL Normal 31.4-36.0 [facility] Comment on above: Performed By: #### 2 234364 #### [facility] [address] [place] [address] MCV (RBC) [Entitic vol] 95.7 fL Normal 80.0-100.[address] [facility] Comment on above: Performed By: #### 2 545872 #### [facility] [address] [place] [address] Monocytes (Bld) [#/Vol] 0.4 E9/L Normal 0.2-1.[address] [facility] Comment on above: Performed By: #### 2 136092 #### [facility] [address] [place] [address] Neutrophils (Bld) [#/Vol] 4.6 E9/L Normal 2.0-7.[address] [facility] Comment on above: Performed By: #### 2 138003 #### [facility] [address] [place] [address] Neutrophils/100 WBC (Bld) 78.5 % High 36.0-75.[address] [facility] Comment on above: Performed By: #### 2 980960 #### [facility] [address] [place] [address] Platelet 241.0 E9/L Normal 150.0-500.[address] [facility] Comment on above: Performed By: #### 2 878105 #### [facility] [address] [place] [address] Platelet mean volume (Bld) [Entitic vol] 7.4 fL Normal 6.4-10.[address] [facility] Comment on above: Performed By: #### 2 546710 #### [facility] [address] [place] [address] RBC (Bld) [#/Vol] 4.0 E12/L Low 4.3-5.[address] [facility] Comment on above: Performed By: #### 2 987842 #### [facility] [address] [place] [address] WBC corrected for nucl RBC Auto (Bld) [#/Vol] 5.8 E9/L Normal 4.0-11.[address] [facility] Comment on above: Performed By: #### 2 675641 #### [facility] [address] [place] [address] CHEMISTRYOrdered By: SYSTEM SYSTEM on 03-09-2024 Albumin [...] 03-09-2024 Albumin [Mass/Vol] 4.2 g/dL Normal 3.3-5.[address] [facility] Comment on above: Performed By: #### 2 559335 #### [facility] [address] [place] [address] Albumin/Globulin (S) [Mass conc ratio] 1.6 Normal 1.1-2.[address] [facility] Comment on above: Performed By: #### 2 830090 #### [facility] [address] [place] [address] ALP [Catalytic activity/Vol] 69 Int._Unit/L Normal 21-[address] [facility] Comment on above: Performed By: #### 2 089904 #### [facility] [address] [place] [address] ALT No additional P-5'-P [Catalytic activity/Vol] 11 Int._Unit/L Normal 6-[address] [facility] Comment on above: Performed By: #### 2 915951 #### [facility] [address] [place] [address] Anion gap [Moles/Vol] 12 mmol/L Normal 6-16 [facility] Comment on above: Performed By: #### 2 449830 #### [facility] [address] [place] [address] AST [Catalytic activity/Vol] 15 Int._Unit/L Normal 5-[address] [facility] Comment on above: Performed By: #### 2 482625 #### [facility] [address] [place] [address] Bilirubin [Mass/Vol] 0.4 mg/dL Normal 0.0-1.1 [facility] Comment on above: Performed By: #### 2 624966 #### [facility] [address] [place] [address] Calcium [Mass/Vol] 9.4 mg/dL Normal 8.9-11.[address] [facility] Comment on above: Performed By: #### 2 379087 #### [facility] [address] [place] [address] Chloride [Moles/Vol] 101 mmol/L Normal 101-111 [facility] Comment on above: Performed By: #### 2 069457 #### [facility] [address] [place] [address] CO2 [Moles/Vol] 28 mmol/L Normal 21-31 [facility] Comment on above: Performed By: #### 2 763832 #### [facility] [address] [place] [address] Creatinine [Mass/Vol] 0.9 mg/dL Normal 0.5-1.3 [facility] Comment on above: Performed By: #### 2 860422 #### [facility] [address] [place] [address] Globulin (S) [Mass/Vol] 2.6 g/dL Normal 1.4-4.[address] [facility] Comment on above: Performed By: #### 2 337779 #### [facility] [address] [place] [address] Glucose [Mass/Vol] 133 mg/dL Normal 55-[address] [facility] Comment on above: Performed By: #### 2 657778 #### [facility] [address] [place] [address] Potassium [Moles/Vol] 3.9 mmol/L Normal 3.5-5.3 [facility] Comment on above: Performed By: #### 2 068851 #### [facility] [address] [place] [address] Protein [Mass/Vol] 6.8 g/dL Normal 6.0-7.[address] [facility] Comment on above: Performed By: #### 2 048046 #### [facility] [address] [place] [address] Sodium [Moles/Vol] 137 mmol/L Normal 135-[address] [facility] Comment on above: Performed By: #### 2 275826 #### [facility] [address] [place] [address] Urea nitrogen [Mass/Vol] 16 mg/dL Normal 5-[address] [facility] Comment on above: Performed By: #### 2 600403 #### [facility] [address] [place] [address] Urea nitrogen/Creatinine [Mass ratio] 18 No Units Normal 10-[address] [facility] Comment on above: Performed By: #### 2 274013 #### [facility] [address] [place] [address] Ferritinon 03-09-2024 Ferritin [Mass/Vol] 356 ng/mL High 24-336 [facility] Comment on above: Performed By: #### 2 894278 #### [facility] [address] [place] [address] HEMATOLOGYOrdered By: SYSTEM SYSTEM on 03-09-2024 Basophils/100 [...] 03-09-2024 Iron [Mass/Vol] 68 microgram/dL Normal 35-153 [facility] Comment on above: Performed By: #### 2 427577 #### [facility] [address] [place] [address] Iron Saturationon 03-09-2024 Iron binding capacity [Mass/Vol] 389 microgram/dL Normal 250-[address] [facility] Comment on above: Performed By: #### 2 724422 #### [facility] [address] [place] [address] Iron saturation [Mass fraction] 17 % Low 20-[address] [facility] Comment on above: Performed By: #### 2 677400 #### [facility] [address] [place] [address] Transferrinon 03-09-2024 Transferrin [Mass/Vol] 278 mg/dL Normal 200-[address] [facility] Comment on above: Performed By: #### 2 827234 #### [facility] [address] [place] [address] eGFRon 03-09-2024 eGFR 87 mL/min/1.73 m2 Normal >=[address] [facility] Comment on above: Performed By: #### 1 4650783 #### [facility] [address] [place] [address] No Panel Informationon 02-[address] [facility] Follow-Upon 02-15-2024 Follow-Up [id number] Charan Peraza Jr. 1945 M Date Provider Department Center 02/15/2024 [facility] MPORTHO No family history on file Level of Service:74240 MS OFFICE/OUTPATIENT ESTABLISHED LOW MDM 20 MIN (GC) Reason for Visit and Comments: Follow-up [643728] Pain [136] Normal [facility] 36on 02-14-2024 36 Left message for Elmer to return my call. I received his MRI results and was calling to schedule follow up. Please schedule next available for MRI follow up or you can transfer his call to me. He will need to bring a CD with him with MRI results for follow up, FYI. Thank you. Normal [facility] Basic metabolic 2000 panelon 02-14-2024 Anion gap [Moles/Vol] 15 mmol/L Normal 8-15 [facility] Comment on above: Order Comment: Speci men Type: BLOOD SPECIMEN Ordering Facility: [facility] Address: [address] [place] [address] Performed By: #### 1 9123-9, 83636-5 #### [facility] CLIA [id number] [address] [place] [address] Calcium [Mass/Vol] 10.5 mg/dL High 8.5-10.2 [facility] Comment on above: Order Comment: Speci men Type: BLOOD SPECIMEN Ordering Facility: [facility] Address: [address] [place] [address] Performed By: #### 1 9123-9, 07412-9 #### [facility] CLIA [id number] [address] [place] [address] Chloride [Moles/Vol] 100 mmol/L Normal 98-107 [facility] Comment on above: Order Comment: Speci men Type: BLOOD SPECIMEN Ordering Facility: [facility] Address: [address] [place] [address] Performed By: #### 1 9123-9, 05445-5 #### [facility] CLIA [id number] [address] [place] [address] CO2 [Moles/Vol] 26 mmol/L Normal 22-30 [facility] Comment on above: Order Comment: Speci men Type: BLOOD SPECIMEN Ordering Facility: [facility] Address: [address] [place] [address] Performed By: #### 1 9123-9, 58952-6 #### [facility] CLIA [id number] [address] [place] [address] Creatinine [Mass/Vol] 1.03 mg/dL Normal 0.73-1.22 [facility] Comment on above: Order Comment: Speci men Type: BLOOD SPECIMEN Ordering Facility: [facility] Address: [address] [id number] Performed By: #### 1 9123-9, 41680-1 #### [facility] CLIA [id number] [address] [place] [address] Creatinine and Glomerular filtration rate.predicted panel (S/P/Bld) 74 mL/min/1.73m??? Normal >=60 [facility] Comment on above: Order Comment: Speci men Type: BLOOD SPECIMEN Ordering Facility: [facility] Address: [address] [place] [address] Result Comment: Celia mated Glomerular Filtration Rate [...] actual GFR. Performed By: #### 1 9123-9, 79446-5 #### [facility] CLIA [id number] [address] [place] [address] Glucose [Mass/Vol] 79 mg/dL Normal 74-99 [facility] Comment on above: Order Comment: Speci men Type: BLOOD SPECIMEN Ordering Facility: [facility] Address: [address] [id number] Result Comment: The [place] Diabetes Association (ADA) provides guidance for cutoff [...] Standards of Medical Care in Diabetes 2016, [place] Diabetes Association. Diabetes Care. 2016.39(Suppl 1). Performed By: #### 1 9123-9, 83308-4 #### [facility] CLIA [id number] [address] [place] [address] Potassium [Moles/Vol] 4.3 mmol/L Normal 3.7-5.1 [facility] Comment on above: Order Comment: Speci men Type: BLOOD SPECIMEN Ordering Facility: [facility] Address: [address] [place] [address] Performed By: #### 1 91239, 03645-9 #### [facility] CLIA [id number] [address] [place] [address] Sodium [Moles/Vol] 141 mmol/L Normal 136-144 [facility] Comment on above: Order Comment: Speci men Type: BLOOD SPECIMEN Ordering Facility: [facility] Address: [address] [place] [address] Performed By: #### 1 91239, 63729-8 #### [facility] CLIA [id number] [address] [place] [address] Urea nitrogen [Mass/Vol] 13 mg/dL Normal 9-24 [facility] Comment on above: Order Comment: Speci men Type: BLOOD SPECIMEN Ordering Facility: [facility] Address: [facility] [place] [address] Performed By: #### 1 9123-9, 72855-2 #### [facility] CLIA [id number] [address] [place] [address] HISTORY PHYSICALon 10-15-202 4 HISTORY PHYSICAL HNO ID: [id number] Author: JULIO BARRETO APRN.[employer] SUPERVISOR Service: ? Author Type: Nurse Practitioner Type: [...] (FLONASE) 50 mcg/actuation nasal spray Use 1 [place] in each nostril once daily. coenzyme Q10 100 mg cap Take 100 mg by mouth once daily. albuterol HFA (PROAIR HFA) 90 mcg/actuation inhaler Inhale 2 Puffs as instructed every 6 hours as needed. Glucosamine-Chondroit- Vit C-Mn 500-400 mg cap Take 1 capsule [...] Assessment/Plan Active Problems: Medication and Non-Pharmacologic VTE Prophylaxis/Anticoagul ants VTE Prophylaxis: NA SIGNATURE: Julio Barreto APRN.CNP PATIENT NAME: Irena Peraza DATE: February 14, 2024 TIME: 12:29 PM PAGER: Normal [facility] Magnesium Sofy 02-13 Magnesium [Mass/Vol] 1.9 mg/dL Normal 1.7-2.3 [facility] Comment on above: Order Comment: Speci men Type: BLOOD SPECIMEN Ordering Facility: [facility] Address: [address] [place] [address] Performed By: #### 1 9123-9, 19711-5 #### [facility] CLIA [id number] [address] [place] [address] OPERATIVE NOon 02-14-2024 OPERATIVE NO HNO ID: [id number] Author: ALPA RAM DO Service: Physical Medicine [...] year old male, who presents to the [facility] for medial branch blocks at the Bilateral L3 and L4 medial branch and L5 dorsal rami levels. 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 Pain is [...] in stable condition. Alpa Ram, DO Normal [facility] ED Clinical Summaryon 2023 ED Clinical Summary ED Clinical Summary [place] [address] ED Clinical Summary Person Information Name: IRENA PERAZA/SunnyCam Age: 79 Years : 1945 Sex: Male Language: Croatian PCP: Scarlett Gaviria CNP Marital Status: MRN: Visit Id: Visit Reason: Ankle pain-swelling; RIGHT [...] 02/12/2024 13:31:21 02/12/2024 13:31:21 02/12/2024 13:31:21 AD[address]: [address] [place] [id number] PHYS DOC NOTES: MEDICAL INFORMATION: Prescriptions Given: [...] D 1 tab By Mouth every day. chondroitin-glucosamin e (Chondroitin-Glucosami ne) 1 Capsules By Mouth every day. dofetilide [...] Sprain Follow up: With: Address: When: Scarlett Beck [address] [place] [address], [address] [place] [address] VENNCOMM () In 3 days 02/15/2024 DIAGNOSIS: Right ankle sprain; Right foot sprain Normal [facility] ED Note-Physicianon 02-12-20 ED Note-Physician ED Note-Physician Basic Information Time Seen: Nina GIBBS, Harry Holbrook. 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 Attending physician was present in the emergency department and supervised care. This visit was performed by both the physician and an APC. I performed all aspects of the MDM as documented. This report was transcribed using voice recognition software. Every effort was made to ensure accuracy, however, inadvertently computerized cage maker machine mistakes may be present. Appropriate healthcare PPE [...] Elevated PSA (more content not included)... Normal [facility] Comment on above: Result Comment: Elec tronically Signed By: Harry Wood PA-C\.br\Date and Time Signed: 02/12/24 16:07 EDT\.br\Electronically Co-Signed By: Antony Blackburn DO\.br\Date and Time Co-Signed: 02/12/24 17:12 EDT ED Patient Summaryon ED Patient Summary ED Patient Summary [facility] [address], [place] [address] Patient Discharge Instructions Person Information Name: IRENA PERAZA Age: 79 Years Arrival Date: 02/12/2024 10:45:49 Discharge Diagnosis: Right ankle sprain; Right foot sprain Primary Care Physician: Scarlett Gaviria CNP Provider Information Primary Provider: Antony Blackburn DO Advanced Dehydrator Operator:Harry Wood PA-C The exam and treatment you received in the Emergency Department were for an urgent problem and are not intended as complete care. It is important that you follow up with a doctor, nurse practitioner, or physician?s high school assistant football coach for ongoing care. If your symptoms become worse or you do not improve as expected and you are unable to reach your usual health care provider, you should return to the Emergency Department. We are available 24 hours a day. IRENA PERAZA has been given the following list of patient education materials, prescriptions and follow-up instructions: Follow-up Instructions: With: Address: When: Scarlett Gaviria [address] [place] [address], [address] [place] [id number] [facility] () In 3 days 02/15/2024 In the event that this physician does not participate in your insurance network, please consult with your insurance company to find a nearby participating provider. Patient Education Materials: Ankle Sprain A MESSAGE TO ALL PATIENTS REGARDING OPIOIDS PRESCRIPTION OPIOIDS: WHAT YOU NEED TO KNOW Prescription opioids can be used to help relieve ielwdlmi-aa-nesmha pain and are often prescribed following a [...] guidance from the Food and Drug Administration (www.fda.gov/Drugs/Res ourcesForYou). ? Visit www.cdc.gov/drugoverdo se to learn about the risks of opioids abuse and overdose. ? If you believe you may be struggling with addiction, tell your health primary care provider and ask for guidance or call [facility] (more content not included)... Normal [facility] XR Ankle 3+ Views Righton XR Ankle 3+ Views Right Exam Date/Time: 02/12/2024 11:31 EDT Reason for Exam: Pain Report IMPRESSION: No acute osseous findings. EXAMINATION/TECHNIQUE: XR Ankle 3+ Views Right HISTORY: Twisting [...] mGy = na DAP = na Normal [facility] XR Foot 3+ Views Righton XR Foot 3+ Views Right Exam Date/Time: 02/12/2024 12:18 EDT Reason for Exam: Pain, Traumatic Report IMPRESSION: No significant interval change from prior. Soft tissue edema without acute osseous finding. Post surgical changes first MTP joint. Foreign body, unchanged. EXAMINATION/TECHNIQUE: XR Foot 3+ Views Right HISTORY: Right [...] mGy = na DAP = na Normal [facility] XR Tib/Fib Right 2 Viewon XR Tib/Fib Right 2 View Exam Date/Time: 02/12/2024 12:18 EDT Reason for Exam: Pain, Traumatic Report IMPRESSION: No acute osseous findings. EXAMINATION/TECHNIQUE: XR Tib/Fib Right 2 View HISTORY: Right [...] REPORT Dictated: 02/12/2024 12:48 pm Emanuel Neumann MD Signed (Electronic Signature): 02/12/2024 12:48 pm Signed by: Emanuel Neumann MD Transcribed by: JADEN Technologist: EZEKIEL Technical Comments Radiation Dose: Ka,r in mGy = na DAP = na [address] 02-09-2024 36 New order was placed and faxed to number provided. [address] called asking for a new order for MRI left wrist. They have one that states with out contrast. They need and order that states with and without contrast. You can fax the new order to [phone]. Please advise. Thank you [address] 02-03-2024 36 Faxed all orders to number provided. 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 [facility] Follow-Upon 01-26-2024 Follow-Up [id number] Charan Peraza Jr. 1945 M Date Provider Department Center 01/26/2024 Yfn-SUSIE RIOS ORTHO MPORTHO No family history on file Level of Service:36087 MS OFFICE/OUTPATIENT ESTABLISHED LOW MDM 20 MIN (GC) Reason for Visit and Comments: Follow-up [647624] Normal [facility] XR Foot 3+ Views Righton XR Foot [...] mGy = . DAP = . Normal [facility]RE[facility] PER[facility] ([id number]) 1945 M Date Time Provider Department 12/30/23 ALPA RAM [facility] During your visit today, we recorded the following information about you: Tremaine Ross RN 12/30/2023 9:39 AM Signed Tried to reach patient for post-injection phone call [phone]. Left office number for patient to call back. Clipabout message/questionairre sent regarding post-injection. Tremaine Ross RN Allergies As of Date: 12/30/2023 (No [...] 1 capsule by mouth every afternoon. - fluticasone-vilanterol (BREO ELLIPTA) 100-25 mcg/dose inhaler INHALE [...] (FLONASE) 50 mcg/actuation nasal spray Use 1 [place] in each nostril once daily. - coenzyme Q10 100 mg cap Take 100 mg by mouth once daily. - albuterol HFA (PROAIR HFA) 90 mcg/actuation inhaler Inhale 2 Puffs as instructed every 6 hours as needed. - Glucosamine-Chondroit- Vit C-Mn 500-400 mg cap Take 1 capsule by mouth twice daily. Meds Comments as of 09/01/2016: Omeprazole is taken prn Problem List As Of Date 12/30/2023 Noted Resolved PAF (paroxysmal atrial fibrillation) ([facility]LY [facility]) [I48* Former smoker [Z87.891] Obstructive lung disease [...] radiculopathy [M54.16] 12/20/2023 Encounter Status:Closed by TREMAINE ROSS on 12/30/23 Normal [facility] HISTORY PHYSICALon HISTORY PHYSICAL HNO ID: [id number] Author: JOYA RAYMOND APRN.CASHIERS SUPERVISOR Service: ? Author Type: Nurse Practitioner Type: [...] (FLONASE) 50 mcg/actuation nasal spray Use 1 [place] in each nostril once daily. 12/20/2023 Yes coenzyme Q10 100 mg cap Take 100 mg by mouth once daily. 12/19/2023 Yes acetaminophen 650 mg CR tablet Every 12 hours amoxicillin (AMOXIL) 500 mg capsule TAKE 2 CAPSULES BY MOUTH now then TAKE 1 CAPSULE BY MOUTH EVERY 6 HOURS UNTIL GONE ketoconazole (NIZORAL) 2 % cream fluticasone-vilanterol (BREO ELLIPTA) 100-25 mcg/dose inhaler INHALE 1 PUFF BY MOUTH DAILY omega-3 acid ethyl esters (LOVAZA) 1 gram capsule Take 1,000 mg by mouth. PROCTOZONE-HC 2.5 % rectal cream APPLY TO THE AFFECTED AREA(S) 2-4 times daily albuterol HFA (PROAIR HFA) 90 mcg/actuation inhaler Inhale 2 Puffs as instructed every 6 hours as needed. 12/18/2023 Glucosamine-Chondroit- Vit C-Mn 500-400 mg cap Take 1 capsule [...] I (BMI 30-34.9) Medication and Non-Pharmacologic VTE Prophylaxis/Anticoagul ants VTE Prophylaxis: NA SIGNATURE: Joya Raymond APRN.CNP PATIENT NAME: Irena Peraza DATE: December 20, 2023 TIME: 10:02 AM Normal [facility] NURSING PROGon 12-20-2023 NURSING PROG HNO ID: [id number] Author: TRIXIE ROSENTHAL RN Service: ? Author Type: Registered Nurse Type: Nursing Progress Note Filed: 12/20/2023 11:43 Note Text: Report received from Sarah CONTRERAS, D/C instructions given, pt ambulated well at the voided in BR post op. D/C home. Normal [facility] NURSING PROG HNO ID: [id number] Author: SARAH PAT RN Service: ? Author Type: Registered Nurse Type: Nursing Progress Note Filed: 12/20/2023 11:17 Note Text: Push/pulls equal and strong bilaterally. C/o mild numbness L > R. Pain level 3/10 in low back. DSD intact in low back. Eliazar Pat RN Normal [facility] OPERATIVE NOon 12-20-2023 OPERATIVE NO HNO ID: [id number] Author: ALPA RAM DO Service: Physical Medicine AND Rehabilitation Author Type: Physician Type: Operative Report Filed: 12/20/2023 11:00 Note Text: PROCEDURE REPORT Surgery/Procedure Date: December 20, 2023 Interventionalist: Alpa Ram DO Procedure(s): Bilateral L5-S1 transforaminal epidural steroid injections Pre-Op/Pre-Procedure Diagnosis: Lumbar spinal stenosis with radiculopathy Post-Op Diagnosis: same SUBJECTIVE: Irena Peraza is a 78 year old male, who presents to the [facility] ambulatory surgery center for a bilateral L5-S1 transforaminal epidural steroid injection. 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 Pain is [...] be discharged home in stable condition. Alpa Ram DO Normal [facility] Kassie 12-15-2023 [facility] Telephone (SPNMMN) IRENA PERAZA ([id number]) 1945 M Date Time Provider Department 12/15/23 ALPA RAMMN During your visit today, we recorded the following information about you: Boubacar Sousa LPN 12/15/2023 9:17 AM Signed Attempted to reach patient via telephone for pre-procedure instructions regarding procedure with Dr. Ram on 12/20/2023 at contact number [phone], patient unable to talk on phone at this time. Left office number on 8aweekmail. Clipabout message sent with pre-procedure guidelines for injection. Allergies As of Date: 12/15/2023 (No Known Allergies) Date Reviewed: 11/17/2023 Reviewed by: Rosa Elena Joshi, RN - Fully Assessed Reason for Visit: Preparations [...] 1 capsule by mouth every afternoon. - fluticasone-vilanterol (BREO ELLIPTA) 100-25 mcg/dose inhaler INHALE [...] (FLONASE) 50 mcg/actuation nasal spray Use 1 [place] in each nostril once daily. - coenzyme Q10 100 mg cap Take 100 mg by mouth once daily. - albuterol HFA (PROAIR HFA) 90 mcg/actuation inhaler Inhale 2 Puffs as instructed every 6 hours as needed. - Glucosamine-Chondroit- Vit C-Mn 500-400 mg cap Take 1 capsule by mouth twice daily. Meds Comments as of 09/01/2016: Omeprazole is taken prn Problem List As Of Date 12/15/2023 Noted Resolved PAF (paroxysmal atrial fibrillation) ([facility]) [I48* Former smoker [Z87.891] Obstructive lung disease [...] region with radiculop*09/20/2023 Encounter Status:Closed by BOUBACAR SOUSA on 12/15/23 [facility] CNOVon 11-17-2023 CNOV Office Visit (CARDMN ) IRENA PERAZA ([id number]) 1945 M Date Time Provider Department 11/17/23 4:45 PM KAYLAH KEMP CARDMN During your visit today, we recorded the following information about you: Pulse Blood pressure Weight Height 70/minute 127/75 97.5 kg 1.778 m Kaylah Kemp MD 11/17/2023 4:59 PM [facility] [place] Misty Henning Department of Cardiovascular Medicine SECTION OF CARDIAC PACING and ELECTROPHYSIOLOGY OUTPATIENT VISIT DATE November 17, 2023 OUTPATIENT VISIT TYPE ESTABLISHED PRIMARY CARE PHYSICIAN: [place] [address] CHIEF COMPLAINT: AF s/p Watchman HISTORY OF PRESENT ILLNESS/ NURSING INTAKE HISTORY: Mr. Peraza is a 78 year old male who presents today for follow-up visit for atrial fibrillation, s/p Watchman 05/19/22. He has a history of persistent atrial fibrillation on dofetilide ([facility] 06/2021), GI bleed, CAD, GERD, HTN, HLD. [...] dofetilide and aspirin. YOGESH today shows no cassie-device leak. He reports doing well. He denies [...] 03/26/13 40-50% disease in mid LAD CARDIOVERSION 7/15/16 CATHETER, ABLATION A-, 2003 at [facility] HERNIA REPAIR HX 05/2011 left [...] mouth. a (more content not included)... Normal [facility] Office Visit (CAFLMN ) IRENA PERAZA ([id number]) 1945 M Date Time Provider Department 11/17/23 [...] TO LEARN: Eager FAMILY SUPPORT: None - Unavailable/disinteres samara INSTRUCTION PROVIDED TO: Patient PATIENT LEARNS BEST [...] - Fully Assessed Primary Visit Diagnosis:[facility] PI: Dr. [...] 1 capsule by mouth every afternoon. - fluticasone-vilanterol (BREO ELLIPTA) 100-25 mcg/dose inhaler INHALE [...] (FLONASE) 50 mcg/actuation nasal spray Use 1 [place] in each nostril once daily. - coenzyme Q10 100 mg cap Take 100 mg by mouth once daily. - albuterol HFA (PROAIR HFA) 90 mcg/actuation inhaler Inhale 2 Puffs as instructed every 6 hours as needed. - Glucosamine-Chondroit- Vit C-Mn 500-400 mg cap Take 1 capsule by mouth twice daily. Meds Comments as of 09/01/2016: Omeprazole is taken prn Problem List As Of Date 11/17/2023 Noted Resolved PAF (paroxysmal atrial fibrillation) ([facility]) [I48* Former smoker [Z87.891] Obstructive lung disease [...] [M75.122] 05/29/19 (more content not included)... Normal [facility] ECG COMPLETEon 11-17-2023 ECG COMPLETE Ventricular Rate : 7 0 BPM Atrial Rate : 70 BPM P-R Interval : 212 ms QRS Duration : 100 ms Q-T Interval : 482 ms QTC Calculation(Bazett) : 520 ms Calculated P Orange : 20 degrees Calculated R Orange : -10 degrees Calculated T Orange : 23 degrees SINUS RHYTHM WITH 1ST DEGREE AV BLOCK WITH PREMATURE SUPRAVENTRICULAR COMPLEXES LEFT VENTRICULAR HYPERTROPHY . ( R in aVL , Rafal product ) PROLONGED QT INTERVAL OR TU FUSION, CONSIDER HYPOKALEMIA ABNORMAL ECG Confirmed by AKILA JARVIS, QUANG ([id number]) on 11/30/2023 4:32:01 PM NAME : IRENA PERAZA PID : [id number] : 1945 Gender : Male Race : ORD : [id number] Procedure Date : Nov 17 2023 13:41:49 Edit Date : Nov 30 2023 16:32:05 Diagnosis: SINUS RHYTHM WITH 1ST DEGREE AV BLOCK WITH PREMATURE SUPRAVENTRICULAR COMPLEXES LEFT VENTRICULAR HYPERTROPHY . ( R in aVL , Rafal product ) PROLONGED QT INTERVAL OR TU FUSION, CONSIDER HYPOKALEMIA ABNORMAL ECG Confirmed by QUANG WILBURN MD ([id number]) on 11/30/2023 4:32:01 PM Test Reason : Location : 314 : J14 J1-4 Overread By : QUANG WILBURN MD Edited By : QUANG WILBURN MD Referred By : KAYLAH KEMP Acquired by : VELIA VALLES [facility] ECHO TRANSESOPHAGEALon 11-16 ECHO TRANSESOPHAGEAL Echocardiography Report: Transesophageal Echo Main [place] J1-5 Date of service: 11/17/2023 1:55:06 PM PIG [facility]EDER Ordering physician: KAYLAH KEMP Indication: Nonsustained atrial [...] device has been implanted. There is no cassie-device leak. RIGHT ATRIUM The right atrial cavity is normal in size. MITRAL VALVE The mitral valve leaflets are structurally normal. [place] mitral valve. There is trace mitral valve [...] behind the Watchman device. There is no cassie-device leak. - Exam was compared with the prior transesophageal echocardiographic exam performed on 09/14/22. similar findings * * * Final * * * [facility] Image : [id number] Normal [facility] NURSING PROGon 11-17-2023 NURSING PROG HNO ID: [id number] Author: BARB AVILA RN Service: ? Author Type: Registered Nurse Type: Nursing Progress Note Filed: 11/17/2023 15:21 Note Text: AMBULATORY PATIENT EDUCATION TOPIC: SURVIVAL SKILLS: YOGESH READINESS TO LEARN COGNITIVE ABILITY: Alert and oriented MOTIVATION TO LEARN: Eager FAMILY SUPPORT: None - Unavailable/disinteres samara INSTRUCTION PROVIDED TO: Patient PATIENT LEARNS BEST [...] Barb Avila RN In Department: CARDIOLOGY Normal [facility] Kassie 11-16-2023 [facility] Telephone (KHALIDA) IRENA PERAZA ([id number]) 1945 M Date Time Provider Department 11/16/23 [...] 1 capsule by mouth every afternoon. - fluticasone-vilanterol (BREO ELLIPTA) 100-25 mcg/dose inhaler INHALE [...] (FLONASE) 50 mcg/actuation nasal spray Use 1 [place] in each nostril once daily. - coenzyme Q10 100 mg cap Take 100 mg by mouth once daily. - albuterol HFA (PROAIR HFA) 90 mcg/actuation inhaler Inhale 2 Puffs as instructed every 6 hours as needed. - Glucosamine-Chondroit- Vit C-Mn 500-400 mg cap Take 1 capsule by mouth twice daily. Meds Comments as of 09/01/2016: Omeprazole is taken prn Problem List As Of Date 11/16/2023 Noted Resolved PAF (paroxysmal atrial fibrillation) ([facility]) [I48* Former smoker [Z87.891] Obstructive lung disease [...] Encounter Status:Closed by ZAHIRA PIÑA on 11/16/23 [facility] CNOVon 11-11-2023 CNOV Office Visit (SPMESH ) IRENA PERAZA ([id number]) 1945 M Date Time Provider Department 11/11/23 10:30 AM ALPA RAM SPMESH During your visit today, we recorded the following information about you: Temperature Pulse Blood pressure Weight 97.7 degrees 72/minute 138/89 97.7 kg Height 1.778 m MahadabhilashAlpa DO 12/01/2023 12:51 PM Signed [facility] - Medical Spine Established [...] 7 Pain Location: Abdomen-Left Lower Quadrant Description: Numbness;Radiating;Sha rp Duration Units: Minutes Frequency: Intermittent Intervention/Comfort measure: [...] HEP 3 times per week PT: [facility], Rachell Gilliam PT, 06/28-08/26/23, [...] the neck, maybe 5 years ago at [facility] -4-5 years ago (more content not included)... Normal [facility] Ambulatory Visit Summaryon 0 11-01-2023 Ambulatory Visit [...] aerosol with adapter) calcium citrate calcium-vitamin D chondroitin-glucosamin e (Chondroitin-Glucosami ne) dofetilide (Tikosyn 500 mcg oral capsule) duloxetine [...] JARVIS, Nghia Elizabeth Where: [facility] Urology Office/Clinic Noteon 11-01-2023 Urology Office/Clinic Note [...] previously. Discussed elevation may be related to inflammation/infection vs malignancy. Will continue to monitor level [...] with voice recognition artificial intelligence software, specifically [employer], [employer] and or [employer]. Substitutions may have occurred due to the inherent limitations of voice recognition and artificial intelligence software. Follow-up With When Contact Information Nghia ROBERSON MD, URL [address] [phone]- Additional Instructions: 6 mos w/ PSA Patient Education Erectile Dysfunction Julissa Jasso per (more content not included)... Normal [facility] Comment on above: Result Comment: Elec [...] methods and specificity. Values obtained with different toolsmith's assays cannot be used interchangeably. The methodology [...] for this result was chemiluminescence using [employer]'s Access Hybritech PSA reagent. PSA Free & Totalon Free PSA/Total PSA [Mass fraction] 21.1 % Low >=25.[address] [facility] Comment on above: Performed By: #### 1 [id number] #### [facility] [address] [place] [address] Prostate specific Ag [Mass/Vol] 3.8 ng/mL High 0.1-3.[address] [facility] Comment on above: Result Comment: The concentration of PSA determined by different manufacturers can vary due to differences in assay methods and reagent specificity. Values obtained from different assay methods cannot be used interchangeably. The methodology used for this result was chemiluminescence using [employer]'s Access Hybritech PSA reagent. Performed By: #### 1 [id number] #### [facility] [address] [place] [address] Free PSA [Mass/Vol] 0.8 ng/mL Invalid Interpretation Code [facility] Comment on above: Result Comment: The concentration of free PSA and total PSA determined with assays from different manufacturers can vary due to differences in assay methods and specificity. Values obtained with different toolsmith's assays cannot be used interchangeably. The methodology used to obtain this result was chemiluminescence using [employer]'s Access Hybritech PSA reagent and Access Hybritech free PSA reagent. Performed By: #### 1 [id number] #### [facility] [address] [place] [address] CT Chest w/o Contraston 05-0 CT Chest [...] Saldana MD Transcribed by: JADEN Technologist: ZORAN [facility] Consent for Treatmenton Consent for Treatment [id number]#1.0 0TIFF [facility] Consent for Treatment [id number]#1.0 0TIFF [facility] Physician Orderon 09-06-2023 Physician Order [id number]#1. 00TIFF [facility] Physician Order [id number]#1. 00TIFF [facility] Comment on above: Other Comment: neede d to be stamped completed XR Lumbar spine Views W flex ion and W extensionon 08-29-2023 IMPRESSION: 1. Mild to moderate lumbar spondylosis. Electrical Mechanic: PSCAutumn Transcribe Date/Time: Aug 29 2023 2:01P Dictated by : RAMYA JOHNSON MD This examination was interpreted and the report reviewed and electronically signed by: RAMYA JOHNSON MD on Aug 29 2023 2:02PM [facility] DIVISION OF RADIOLOGY * * *Final Report* [...] the abdominal aorta. DIVISION OF RADIOLOGY Provider, [facility] - 08/29/2023 * * *Final Report* * [...] IMPRESSION: 1. Mild to moderate lumbar spondylosis. Electrical Mechanic: KIMBERLY Transcribe Date/Time: Aug 29 2023 2:01P Dictated by : RAMYA JOHNSON MD This examination was interpreted and the report reviewed and electronically signed by: RAMYA JOHNSON MD on Aug 29 2023 2:02PM EST [facility] Study observation (narrative) [facility] XR Lumbar spine Views W flex ion and W extensionOrdered By: Ccf Provider on 08-29-2023 [facility] CHEMISTRYOrdered By: Nguyễn orozco on 08-19-2023 Albumin [...] mg/mg Normal 10 - 20 Remisol Chem HEMATOLOGYOrdered By: SYSTEM SYSTEM on 08-19-2023 Basophils/100 [...] Normal 4.0 - 11.0 E9/L Remisol Heme XR lumbar spine 6V w bending on 06-20-2023 XR lumbar spine 6V w bending [place] [place] [address] XRay Report Signed Patient: Irena Peraza MR#: [id number] 4 : 1945 Acct:[id number] Age/Sex: 78 / M ADM Date: 06/20/23 Loc: XD Room: Type: [facility] Attending Dr: Yareli BLAS Copies to: ROOPA [...] Akua Loya M.D.06/20/2023 5:45 PM Dictation Location: [place] [address] Transcribed By: [facility] 06/20/23 174 Dictated By: Akua Loya MD 06/20/23 174 Signed By: 06/20/23 174 [facility] [place] Heart Perfusion W stress and W radionuclide Marcos 06-16-2023 * * *Final Report* * * DATE OF EXAM: Jun 16 2023 3:13PM [facility] 0006 - [place] CARDIAC PERF STRESS/PHARM / PROCEDURE REASON: multiple diagnoses * * * * Physician Interpretation * * * * PATIENT: Name: MR. IRENA PERAZA . Age: 78 years Gender: M CONCLUSIONS: 1. [...] later. See administered radiotracer and doses below. [facility] Date of service: 06/16/2023 12:55:21 [...] * * * Final * * * ------ Stress ECG Report: [facility] Date of service: 06/16/2023 12:55:21 PM Ordering physician: JACQUELINE TAMAYO software testing specialist: Sujatha Lim Interpreting physician: Amy Ledezma [...] content not included)... DIVISION OF RADIOLOGY Provider, [facility] - 06/16/2023 * * [...] later. See administered radiotracer and doses below. [facility] Date of service: 06/16/2023 12:55:21 [...] * * * Final * * * ------ Stress ECG Report: [facility] Date of service: 06/16/2023 12:55:21 PM Ordering physician: JACQUELINE TAMAYO software testing specialist: Sujatha Lim Interpreting physician: Amy Ledezma [...] +-----+--+---+---+ Final 75 120 62 +-----+--+---+---+ +------+ -------+ Stage Arrhythmias +------+ -------+ 1 Isotope Injection and Regadenoson Injectio (more content not included)... [facility] Study observation (narrative) [facility] Heart Perfusion W stress and W radionuclide IVOrdered By: Ccf Provider on 06-16-2023 [facility] CHEMISTRYOrdered By: SYSTEM SYSTEM on 05-20-2023 Albumin [...] mg/mg Normal 10 - 20 Remisol Chem HEMATOLOGYOrdered By: SYSTEM SYSTEM on 05-20-2023 Basophil [...] Normal 80.0 - 100.0 fL Remisol Heme [place] Absolute 0.8 E9/L Normal 0.2 - 1.0 [...] Normal 4.0 - 11.0 E9/L [facility] CHEMISTRYOrdered By: SYSTEM SYSTEM on 01-28-2023 Free PSA [Mass/Vol] 0.7 ng/mL Invalid Interpretation Code [facility] Remisol Comment on above: Interpretive Data: T he concentration of free PSA and total PSA determined with assays from different manufacturers can vary due to differences in assay methods and specificity. Values obtained with different toolsmith's assays cannot be used interchangeably. The methodology used to obtain this result was chemiluminescence using [employer] Access Hybr[employer]ch PSA reagent and [employer] free PSA reagent. Free PSA/Total PSA [Mass fraction] 28.0 % Normal >=25.0% [facility] Comment on above: Interpretive Data: T [...] 2.6 ng/mL Normal 0.1 - 3.5 ng/mL [facility] Comment on above: Interpretive Data: T he concentration of PSA determined by different manufacturers can vary due to differences in assay methods and reagent specificity. Values obtained from different assay methods cannot be used interchangeably. The methodology used for this result was chemiluminescence using [employer] Access Hybritech PSA reagent. CHEMISTRYOrdered By: SYSTEM SYSTEM on 12-24-2022 Albumin [...] [facility] HEMATOLOGYOrdered By: SYSTEM SYSTEM on 12-24-2022 Basophils/100 [...] 36.8 % Low 37.7 - 49.0 % [facility] Hemoglobin (Bld) [Mass/Vol] 12.2 g/dL Low [...] 3.8 E12/L Low 4.3 - 5.9 E12/L [facility] WBC corrected for nucl RBC Auto (Bld) [#/Vol] 5.9 E9/L Normal 4.0 - 11.0 E9/L [facility] CHEMISTRYOrdered By: SYSTEM SYSTEM on 07-21-2022 Albumin [...] 14.4 % High 10.9 - 14.2 % [facility] Hematocrit (Bld) [Volume fraction] 34.8 % Low 37.7 - 49.0 % [facility] Hemoglobin (Bld) [Mass/Vol] 11.3 g/dL Low 13.5 - 17.5 gm/dL [facility] MCH (RBC) [Entitic mass] 30.7 pg Normal 27.0 - 34.0 pg [facility] MCHC (RBC) [Mass/Vol] 32.5 g/dL Normal 31.4 - 36.0 gm/dL [facility] MCV (RBC) [Entitic vol] 94.3 fL Normal 80.0 - 100.0 fL [facility] Platelet mean volume (Bld) [Entitic vol] 7.1 fL Normal 6.4 - 10.8 fL [facility] Platelets (Bld) [#/Vol] 337.0 E9/L Normal 150.0 - 500.0 E9/L [facility] RBC (Bld) [#/Vol] 3.7 E12/L Low 4.3 - 5.9 E12/L [facility] WBC corrected for nucl RBC Auto (Bld) [#/Vol] 5.9 E9/L Normal 4.0 - 11.0 E9/L [facility] HemeAutoSS CBC AUTO DIFFon 05-30-2022 BASO # 0.0 103/ul Normal 0.0-0.1 [facility] Comment on above: Performed By: #### U RCX #### [facility] [address] [address] [address] Luis Alberto Olivia Basophils/100 WBC (Bld) 0.5 % Normal 0.2-2.0 [facility] Comment on above: Performed By: #### U RCX #### [facility] [address], [place] [address] Dr. Luis Alberto Olivia EO # 0.2 103/ul Normal 0.0-0.7 [facility] Comment on above: Performed By: #### U RCX #### [facility] [address] [address] [address] Luis Alberto Olivia Eosinophils/100 WBC (Bld) 2.2 % Normal 0.9-7.0 [facility] Comment on above: Performed By: #### U RCX #### [facility] [address] [address] [address] Luis Alberto Olivia Erythrocyte distribution width (RBC) [Ratio] 14.6 % Normal 11.0-15.0 [facility] Comment on above: Performed By: #### U RCX #### [facility] [address] [address] [address] Luis Alberto Olivia Hematocrit (Bld) [Volume fraction] 32.6 % Critically low 42.0-54.0 [facility] Comment on above: Performed By: #### U RCX #### [facility] [address] [place] [address] Dr. Luis Alberto Olivia Hemoglobin (Bld) [Mass/Vol] 11.1 g/dL Critically low 14.0-18.0 [facility] Comment on above: Performed By: #### U RCX #### [facility] [address] [place] [address] Dr. Luis Alberto Olivia IG # 0.05 10e3/ul Critically high 0.00-0.03 [facility] Comment on above: Performed By: #### U RCX #### [facility] [address] [place] [address] Dr. Luis Alberto Olivia IG % 0.6 % Critically high 0.0-0.5 [facility] Comment on above: Performed By: #### U RCX #### [facility] [address] [place] [address] Dr. Luis Alberto Olivia LYMPH # 0.9 103/ul Critically low 1.2-3.8 [facility] Comment on above: Performed By: #### U RCX #### [facility] [address] [place] [address] Dr. Luis Alberto Olivia Lymphocytes/100 WBC (Bld) 11.7 % Critically low 20.5-60.0 [facility] Comment on above: Performed By: #### U RCX #### [facility] [address] [place] [address] Dr. Luis Alberto Olivia MANUAL DIFF REQ NO Normal [facility] Comment on above: Performed By: #### U RCX #### [facility] [address] [place] [address] Dr. Luis Alberto Olivia MCH (RBC) [Entitic mass] 31.2 pg Normal 25.9-34.0 [facility] Comment on above: Performed By: #### U RCX #### [facility] [address] [place] [address] Dr. Luis Alberto Olivia MCHC (RBC) [Mass/Vol] 34.0 g/dL Normal 29.9-35.2 [facility] Comment on above: Performed By: #### U RCX #### [facility] [address] [place] [address] Dr. Luis Alberto Olivia MCV (RBC) [Entitic vol] 91.6 fL Normal 80.0-94.0 [facility] Comment on above: Performed By: #### U RCX #### [facility] [address] [place] [address] Dr. Luis Alberto Olivia MONO # 0.8 103/ul Normal 0.3-0.8 [facility] Comment on above: Performed By: #### U RCX #### [facility] [address] [place] [address] Dr. Luis Alberto Olivia Monocytes/100 WBC (Bld) 10.2 % Normal 1.7-12.0 [facility] Comment on above: Performed By: #### U RCX #### [facility] [address] [place] [address] Dr. Luis Alberto Olivia NEUT # 5.9 103/ul Normal 1.4-6.5 [facility] Comment on above: Performed By: #### U RCX #### [facility] [address] [place] [address] Dr. Luis Alberto Olivia Neutrophils/100 WBC (Bld) 74.8 % Normal 43.0-75.0 [facility] Comment on above: Performed By: #### U RCX #### [facility] [address], [place] [address] Dr. Luis Alberto Olivia Platelet mean volume (Bld) [Entitic vol] 9.1 fL Critically low 9.5-13.5 [facility] Comment on above: Performed By: #### U RCX #### [facility] [address] [address] [address] Luis Alberto Olivia PLT 237 103/ul Normal 150-450 [facility] Comment on above: Performed By: #### U RCX #### [facility] [address], [place] [address] Dr. Luis Alberto Olivia RBC 3.56 106/ul Critically low 4.70-6.[address] [facility] Comment on above: Performed By: #### U RCX #### [facility] [address] [address] [address] Luis Alberto Olivia WBC 7.9 103/ul Normal 4.0-11.0 [facility] Comment on above: Performed By: #### U RCX #### [facility] [address] [address] [address] CSPINE WO CONon 3 CT CSPINE WO CON EXAMINATION: CT CSPI NE WO CON HISTORY: Neck pain COMPARISON: Cervical [...] BOUBACAR BATES Date: 2022-05-30 18:39 Normal [facility] CBC W Auto Differential pane l (Bld)on 05-18-2022 Basophils (Bld) [#/Vol] 0.07 10*3/uL <0.11 k/uL [facility] Basophils/100 WBC (Bld) 1.0 % [facility] Differential cell count method Nom (Bld) Auto [facility] Eosinophils (Bld) [#/Vol] 0.18 10*3/uL <0.46 k/uL [facility] Eosinophils/100 WBC (Bld) 2.6 % [facility] Erythrocyte distribution width (RBC) [Ratio] 14.2 % 11.5 - 15.0 % [facility] Hematocrit (Bld) [Volume fraction] 41.3 % 39.0 - 51.0 % [facility] Hemoglobin (Bld) [Mass/Vol] 13.3 g/dL 13.0 - 17.0 g/dL [facility] Immature granulocytes (Bld) [#/Vol] 0.06 10*3/uL <0.10 k/uL [facility] Immature granulocytes/100 WBC (Bld) 0.9 % [facility] Lymphocytes (Bld) [#/Vol] 1.17 10*3/uL 1.00 - 4.00 k/uL [facility] Lymphocytes/100 WBC (Bld) 16.9 % [facility] MCH (RBC) [Entitic mass] 30.8 pg 26.0 - 34.0 pg [facility] MCHC (RBC) [Mass/Vol] 32.2 g/dL 30.5 - 36.0 g/dL [facility] MCV (RBC) [Entitic vol] 95.6 fL 80.0 - 100.0 fL [facility] Monocytes (Bld) [#/Vol] 0.68 10*3/uL <0.87 k/uL [facility] Monocytes/100 WBC (Bld) 9.8 % [facility] Neutrophils (Bld) [#/Vol] 4.78 10*3/uL 1.45 - 7.50 k/uL [facility] Neutrophils/100 WBC (Bld) 68.8 % [facility] Nucleated RBC (Bld) [#/Vol] <0.01 k/uL [facility] Nucleated RBC/100 WBC (Bld) [Ratio] 0.0 /100 WBC [facility] Platelet mean volume (Bld) [Entitic vol] 9.5 fL 9.0 - 12.7 fL [facility] Platelets (Bld) [#/Vol] 271 10*3/uL 150 - 400 k/uL [facility] RBC (Bld) [#/Vol] 4.32 10*6/uL 4.20 - 6.0 0 m/uL [facility] WBC (Bld) [#/Vol] 6.94 10*3/uL 3.70 - 11. 00 k/uL [facility] Laboratory - Chemistry and C hemistry - [...] and Cell countsOrdered By: SYSTEM SYSTEM on 03-04-2022 Basophils/100 WBC (Bld) 0.7 [...] 4.9 E9/L Normal 2.0 - 7.5 E9/L [facility] - Hematology and Cell countsOrdered By: Matthew Dowling on 03-04-2022 Erythrocyte distribution width (RBC) [Ratio] 15.2 % High 10.9 - 14.2 % [facility] Hematocrit (Bld) [Volume fraction] 38.8 % Normal 37.7 - 49.0 % [facility] Hemoglobin (Bld) [Mass/Vol] 12.9 g/dL Low 13.5 - 17.5 gm/dL [facility] MCH (RBC) [Entitic mass] 31.4 pg [...] 3.6 E12/L Low 4.3 - 5.9 E12/L [facility] WBC corrected for nucl RBC Auto (Bld) [#/Vol] 4.7 E9/L Normal 4.0 - 11.0 E9/L [facility] BNPon 01-24-2022 Natriuretic peptide B (Bld) [Mass/Vol] 671.0 pg/mL Normal <=1,800.0 [facility] Comment on above: Performed By: #### B [id number] #### [facility] [address] [place] [address] Dr. Luis Alberto Olivia CARDIAC ANGELI ADMITon 022 CK [Catalytic activity/Vol] 71 U/L Normal 39-308 [facility] Comment on above: Performed By: #### B [id number] #### [facility] [address] [place] [address] Dr. Luis Alberto Olivia CK.MB [Mass/Vol] 1.85 ng/mL Normal <=3.60 [facility] Comment on above: Performed By: #### B LDCX2 #### [facility] [address] [place] [address] Dr. Luis Alberto Olivia HSTROP 27.3 pg/mL Normal 4.0-76.1 [facility] Comment on above: Result Comment: CUT- OFF POINTS HAVE BEEN ESTABLISHED BASED ON THE FOURTH UNIVERSAL DEFINITIONS OF MYOCARDIAL INFARCTION. THE UPPER REFERENCE LIMIT (URL) OF TROPONIN, DEFINED THE 99TH PERCENTILE OF cTnI DISTRIBUTION IN A REFERENCE POPULATION, HAS BEEN CONFIRMED THE DECISION THRESHOLD FOR OK DIAGNOSIS. Performed By: #### B [id number] #### [facility] [address] [place] [address] Dr. Luis Alberto Olivia YADIRA 54 ng/mL Normal 16-96 [facility] Comment on above: Performed By: #### B [id number] #### [facility] [address] [place] [address] Dr. Luis Alberto Olivia CBC AUTO DIFFon 01-24-2022 BASO # 0.1 103/ul Normal 0.0-0.1 [facility] Comment on above: Performed By: #### U RCX #### [facility] [address] [place] [address] Dr. Luis Alberto Olivia Basophils/100 WBC (Bld) 1.0 % Normal 0.2-2.0 [facility] Comment on above: Performed By: #### U RCX #### [facility] [address] [place] [address] Dr. Luis Alberto Olivia EO # 0.2 103/ul Normal 0.0-0.7 [facility] Comment on above: Performed By: #### U RCX #### [facility] [address] [place] [address] Dr. Luis Alberto Olivia Eosinophils/100 WBC (Bld) 3.7 % Normal 0.9-7.0 [facility] Comment on above: Performed By: #### U RCX #### [facility] [address] [place] [address] Dr. Luis Alberto Olivia Erythrocyte distribution width (RBC) [Ratio] 17.9 % Critically high 11.0-15.0 [facility] Comment on above: Performed By: #### U RCX #### [facility] [address] [place] [address] Dr. Luis Alberto Olivia Hematocrit (Bld) [Volume fraction] 30.7 % Critically low 42.0-54.0 [facility] Comment on above: Performed By: #### U RCX #### [facility] [address] [place] [address] Dr. Luis Alberto Olivia Hemoglobin (Bld) [Mass/Vol] 9.7 g/dL Critically low 14.0-18.0 [facility] Comment on above: Performed By: #### U RCX #### [facility] [address] [place] [address] Dr. Luis Alberto Olivia IG # 0.06 10e3/ul Critically high 0.00-0.03 [facility] Comment on above: Performed By: #### U RCX #### [facility] [address] [place] [address] Dr. Luis Alberto Olivia IG % 1.2 % Critically high 0.0-0.5 [facility] Comment on above: Performed By: #### U RCX #### [facility] [address] [place] [address] Dr. Luis Alberto Olivia LYMPH # 0.7 103/ul Critically low 1.2-3.8 [facility] Comment on above: Performed By: #### U RCX #### [facility] [address] [place] [address] Dr. Luis Alberto Olivia Lymphocytes/100 WBC (Bld) 14.9 % Critically low 20.5-60.0 [facility] Comment on above: Performed By: #### U RCX #### [facility] [address] [place] [address] Dr. Luis Alberto Olivia MANUAL DIFF REQ NO Normal [facility] Comment on above: Performed By: #### U RCX #### [facility] [address] [place] [address] Dr. Luis Alberto Olivia MCH (RBC) [Entitic mass] 31.6 pg Normal 25.9-34.0 [facility] Comment on above: Performed By: #### U RCX #### [facility] [address] [place] [address] Dr. Luis Alberto Olivia MCHC (RBC) [Mass/Vol] 31.6 g/dL Normal 29.9-35.2 [facility] Comment on above: Performed By: #### U RCX #### [facility] [address] [place] [address] Dr. Luis Alberto Olivia MCV (RBC) [Entitic vol] 100.0 fL Critically high 80.0-94.0 [facility] Comment on above: Performed By: #### U RCX #### [facility] [address] [place] [address] Dr. Luis Alberto Olivia MONO # 0.5 103/ul Normal 0.3-0.8 [facility] Comment on above: Performed By: #### U RCX #### [facility] [address] [place] [address] Dr. Luis Alberto Olivia Monocytes/100 WBC (Bld) 9.3 % Normal 1.7-12.0 [facility] Comment on above: Performed By: #### U RCX #### [facility] [address] [place] [address] Dr. Luis Alberto Olivia NEUT # 3.4 103/ul Normal 1.4-6.5 [facility] Comment on above: Performed By: #### U RCX #### [facility] [address] [place] [address] Dr. Luis Alberto Olivia Neutrophils/100 WBC (Bld) 69.9 % Normal 43.0-75.0 [facility] Comment on above: Performed By: #### U RCX #### [facility] [address] [place] [address] Dr. Luis Alberto Olivia Platelet mean volume (Bld) [Entitic vol] 9.5 fL Normal 9.5-13.5 [facility] Comment on above: Performed By: #### U RCX #### [facility] [address] [place] [address] Dr. Luis Alberto Olivia PLT 259 103/ul Normal 150-450 [facility] Comment on above: Performed By: #### U RCX #### [facility] [address] [place] [address] Dr. Luis Alberto Olivia RBC 3.07 106/ul Critically low 4.70-6.10 [facility] Comment on above: Performed By: #### U RCX #### [facility] [address] [place] [address] Dr. Luis Alberto Olivia WBC 4.8 103/ul Normal 4.0-11.0 [facility] Comment on above: Performed By: #### U RCX #### [facility] [address] [place] [address] Dr. Luis Alberto Olivia Covid-19 PCR ([facility])on 01-01 SARS-CoV-2 (COVID-19) RNA BOAZ+probe Ql (Unsp spec) Not detected Normal NOT DETECTED [facility] Comment on above: Result Comment: When [...] for this test is supported by the [place] of Health and Human Service's declaration that [...] used). Performed By: #### L IVER #### [facility] [address] [place] [address] Dr. Luis Alberto Olivia ER URINE PROFILEon 2 Bilirubin Ql (U) Negative Normal NEGATIVE [facility] Comment on above: Performed By: #### R ETYPE #### [facility] [address] [place] [address] Dr. Luis Alberto Olivia Clarity (U) CLEAR Normal CLEAR [facility] Comment on above: Performed By: #### R ETYPE #### [facility] [address] [place] [address] Dr. Luis Alberto Olivia Color (U) LT. YELLOW Normal YELLOW [facility] Comment on above: Performed By: #### R ETYPE #### [facility] [address] [place] [address] Dr. Luis Alberto Olivia ERUAHD A micrscopic examination will be performed if indicated. Normal [facility] Comment on above: Performed By: #### R ETYPE #### [facility] [address] [place] [address] Dr. Luis Alberto Olivia Glucose Ql (U) Negative Normal NEGATIVE [facility] Comment on above: Performed By: #### R ETYPE #### [facility] [address] [place] [address] Dr. Luis Alberto Olivia Hemoglobin Ql (U) Negative Normal NEGATIVE [facility] Comment on above: Performed By: #### R ETYPE #### [facility] [address] [place] [address] Dr. Luis Alberto Olivia Ketones Ql (U) Negative Normal NEGATIVE [facility] Comment on above: Performed By: #### R ETYPE #### [facility] [address] [place] [address] Dr. Luis Alberto Olivia LEUKOCYTES Negative Normal NEGATIVE [facility] Comment on above: Performed By: #### R ETYPE #### [facility] [address] [place] [address] Dr. Luis Alberto Olivia Nitrite Ql (U) Negative Normal NEGATIVE [facility] Comment on above: Performed By: #### R ETYPE #### [facility] [address] [place] [address] Dr. Luis Alberto Olivia pH (U) 6.0 [pH] Normal 5-9 [facility] Comment on above: Performed By: #### R ETYPE #### [facility] [address] [place] [address] Dr. Luis Alberto Olivia SPEC GRAVITY 1.010 Normal 1.005-<=1.02 5 [facility] Comment on above: Performed By: #### R ETYPE #### [facility] [address] [place] [address] Dr. Luis Alberto Olivia UA PROTEIN Negative Normal NEGATIVE/ TRACE [facility] Comment on above: Performed By: #### R ETYPE #### [facility] [address] [place] [address] Dr. Luis Alberto Olivia UR MICRO IND NOT INDICATED Normal [facility] Comment on above: Performed By: #### R ETYPE #### [facility] [address] [place] [address] Dr. Luis Alberto Olivia Urobilinogen Qn (U) 0.2 {Srini'U}/dL Normal 0.2 - 1. 0 [facility] Comment on above: Performed By: #### R ETYPE #### [facility] [address] [place] [address] Dr. Luis Alberto Olivia PROF 14(COMP METB)on 022 Albumin [Mass/Vol] 3.4 g/dL Normal 3.4-5.0 [facility] Comment on above: Performed By: #### T HANHS #### [facility] [address] [place] [address] Dr. Luis Alberto Olivia Albumin/Globulin [Mass ratio] 1.0 {ratio} Normal [facility] Comment on above: Performed By: #### T HANHSFR #### [facility] [address] [place] [address] Dr. Luis Alberto Olivia ALP [Catalytic activity/Vol] 59 U/L Normal 46-116 [facility] Comment on above: Performed By: #### T RANSFR #### [facility] [address] [place] [address] Dr. Luis Alberto Olivia ALT [Catalytic activity/Vol] 22 U/L Normal 16-63 [facility] Comment on above: Performed By: #### T RANSFR #### [facility] [address] [place] [address] Dr. Luis Alberto Olivia Anion gap [Moles/Vol] 10.2 mmol/L Normal [facility] Comment on above: Performed By: #### T RANSFR #### [facility] [address] [place] [address] Dr. Luis Alberto Olivia AST [Catalytic activity/Vol] 18 U/L Normal 15-37 [facility] Comment on above: Performed By: #### T RANSFR #### [facility] [address] [place] [address] Dr. Luis Alberto Olivia Bilirubin [Mass/Vol] 0.3 mg/dL Normal 0.2-1.0 [facility] Comment on above: Performed By: #### T RANSFR #### [facility] [address] [place] [address] Dr. Luis Alberto Olivia Calcium [Mass/Vol] 9.2 mg/dL Normal 8.5-10.1 [facility] Comment on above: Performed By: #### T RANSFR #### [facility] [address] [place] [address] Dr. Luis Alberto Olivia Chloride [Moles/Vol] 106 mmol/L Normal 98-107 [facility] Comment on above: Performed By: #### T RANSFR #### [facility] [address] [address] [address] Luis Alberto Olivia CO2 [Moles/Vol] 28.6 mmol/L Normal 21.0-32.0 [facility] Comment on above: Performed By: #### T RANSFR #### [facility] [address] [address] [address] Luis Alberto Olivia Creatinine [Mass/Vol] 1.14 mg/dL Normal 0.70-1.30 [facility] Comment on above: Performed By: #### T RANSFR #### [facility] [address] [place] [address] Dr. Luis Alberto Olivia EGFR-AF [place] >60 Normal >=60 [facility] Comment on above: Performed By: #### T RANSFR #### [facility] [address] [address] [address] Luis Alberto Olivia EGFR-NON AF [place] >60 Normal >=60 [facility] Comment on above: Performed By: #### T RANSFR #### [facility] [address] [place] [address] Dr. Luis Alberto Olivia Globulin (S) [Mass/Vol] 3.4 g/dL Normal [facility] Comment on above: Performed By: #### T RANSFR #### [facility] [address] [place] [address] Dr. Luis Alberto Olivia Glucose [Mass/Vol] 110 mg/dL Critically high 74-106 [facility] Comment on above: Performed By: #### T RANSFR #### [facility] [address] [place] [address] Dr. Luis Alberto Olivia Potassium [Moles/Vol] 3.8 mmol/L Normal 3.5-5.1 [facility] Comment on above: Performed By: #### T RANSFR #### [facility] [address] [place] [address] Dr. Luis Alberto Olivia Protein [Mass/Vol] 6.8 g/dL Normal 6.4-8.2 [facility] Comment on above: Performed By: #### T RANSFR #### [facility] [address] [place] [address] Dr. Luis Alberto Olivia Sodium [Moles/Vol] 141 mmol/L Normal 136-145 [facility] Comment on above: Performed By: #### T RANSFR #### [facility] [address] [place] [address] Dr. Luis Alberto Olivia Urea nitrogen [Mass/Vol] 12.0 mg/dL Normal 7.0-18.0 [facility] Comment on above: Performed By: #### T RANSFR #### [facility] [address] [place] [address] Dr. Luis Alberto Olivia Urea nitrogen/Creatinine [Mass ratio] 10.5 mg/mg Normal [facility] Comment on above: Performed By: #### T RANSFR #### [facility] [address] [place] [address] Dr. Luis Alberto Olivia PROTIMEon 01-24-2022 INR Coag (PPP) [Relative time] 0.99 {INR} Normal [facility] Comment on above: Performed By: #### T RANSFR #### [facility] [address] [place] [address] Dr. Luis Alberto Olivia INR GUIDELINES SEE BELOW Normal [facility] Comment on above: Result Comment: KT RED INR: 2.0 - 3.0 CONDITIONS NOT LISTED BELOW 2.5 - 3.5 FOR PROSTHETIC HEART VALVE REPLACEMENT 2.5 - 3.5 RECURRENT THROMBOSIS Performed By: #### T RANSFR #### [facility] [address] [place] [address] Dr. Luis Alberto Olivia PT Coag (PPP) [Time] 10.7 s Normal 9.0-11.6 [facility] Comment on above: Performed By: #### T RANSFR #### [facility] [address] [place] [address] Dr. Luis Alberto Olivia PTTon 01-24-2022 aPTT Coag (Bld) [Time] 26.4 s Normal 22.3-36.2 [facility] Comment on above: Performed By: #### T RANSFR #### [facility] [address] [place] [address] Dr. Luis Alberto Olivia TROPONIN, HIGH SENSITIVITYon 01-24-2022 HSTROP 24.9 pg/mL Normal 4.0-76.1 [facility] Comment on above: Result Comment: CUT- OFF POINTS HAVE BEEN ESTABLISHED BASED ON THE FOURTH UNIVERSAL DEFINITIONS OF MYOCARDIAL INFARCTION. THE UPPER REFERENCE LIMIT (URL) OF TROPONIN, DEFINED THE 99TH PERCENTILE OF cTnI DISTRIBUTION IN A REFERENCE POPULATION, HAS BEEN CONFIRMED THE DECISION THRESHOLD FOR OK DIAGNOSIS. Performed By: #### U RCX #### [facility] [address] [place] [address] Dr. Luis Alberto Olivia XR CHEST 1 [...] by: SAM CHAN Date: 2022-01-24 12:01 Normal [facility] CHEMISTRYOrdered By: SYSTEM SYSTEM on 01-13-2022 Ferritin [...] BASO # 0.0 103/ul Normal 0.0-0.1 [facility] Comment on above: Performed By: #### L IVER #### [facility] [address] [address] [address] Luis Alberto Olivia Basophils/100 WBC (Bld) 0.6 % Normal 0.2-2.0 [facility] Comment on above: Performed By: #### L IVER #### [facility] [address] [place] [address] Dr. Luis Alberto Olivia EO # 0.1 103/ul Normal 0.0-0.7 [facility] Comment on above: Performed By: #### L IVER #### [facility] [address] [place] [address] Dr. Luis Alberto Olivia Eosinophils/100 WBC (Bld) 1.7 % Normal 0.9-7.0 [facility] Comment on above: Performed By: #### L IVER #### [facility] [address] [place] [address] Dr. Luis Alberto Olivia Erythrocyte distribution width (RBC) [Ratio] 17.1 % Critically high 11.0-15.0 [facility] Comment on above: Performed By: #### L IVER #### [facility] [address] [place] [address] Dr. Luis Alberto Olivia Hematocrit (Bld) [Volume fraction] 33.2 % Critically low 42.0-54.0 [facility] Comment on above: Performed By: #### L IVER #### [facility] [address] [place] [address] Dr. Luis Alberto Olivia Hemoglobin (Bld) [Mass/Vol] 10.0 g/dL Critically low 14.0-18.0 [facility] Comment on above: Performed By: #### L IVER #### [facility] [address] [place] [address] Dr. Luis Alberto Olivia IG # 0.03 10e3/ul Normal 0.00-0.03 [facility] Comment on above: Performed By: #### L IVER #### [facility] [address] [place] [address] Dr. Luis Alberto Olivia IG % 0.4 % Normal 0.0-0.5 [facility] Comment on above: Performed By: #### L IVER #### [facility] [address] [place] [address] Dr. Luis Alberto Olivia LYMPH # 0.8 103/ul Critically low 1.2-3.8 [facility] Comment on above: Performed By: #### L IVER #### [facility] [address] [place] [address] Dr. Luis Alberto Olivia Lymphocytes/100 WBC (Bld) 11.4 % Critically low 20.5-60.0 [facility] Comment on above: Performed By: #### L IVER #### [facility] [address] [place] [address] Dr. Luis Alberto Olivia MANUAL DIFF REQ NO Normal [facility] Comment on above: Performed By: #### L IVER #### [facility] [address] [place] [address] Dr. Luis Alberto Olivia MCH (RBC) [Entitic mass] 29.9 pg Normal 25.9-34.0 [facility] Comment on above: Performed By: #### L IVER #### [facility] [address] [place] [address] Dr. Luis Alberto Olivia MCHC (RBC) [Mass/Vol] 30.1 g/dL Normal 29.9-35.2 [facility] Comment on above: Performed By: #### L IVER #### [facility] [address] [place] [address] Dr. Luis Alberto Olivia MCV (RBC) [Entitic vol] 99.4 fL Critically high 80.0-94.0 [facility] Comment on above: Performed By: #### L IVER #### [facility] [address] [place] [address] Dr. uLis Alberto Olivia MONO # 0.7 103/ul Normal 0.3-0.8 [facility] Comment on above: Performed By: #### L IVER #### [facility] [address] [place] [address] Dr. Luis Alberto Olivia Monocytes/100 WBC (Bld) 10.0 % Normal 1.7-12.0 [facility] Comment on above: Performed By: #### L IVER #### [facility] [address] [place] [address] Dr. Luis Alberto Olivia NEUT # 5.2 103/ul Normal 1.4-6.5 [facility] Comment on above: Performed By: #### L IVER #### [facility] [address] [place] [address] Dr. Luis Alberto Olivia Neutrophils/100 WBC (Bld) 75.9 % Critically high 43.0-75.0 [facility] Comment on above: Performed By: #### L IVER #### [facility] [address] [place] [address] Dr. Luis Alberto Olivia Platelet mean volume (Bld) [Entitic vol] 9.6 fL Normal 9.5-13.5 [facility] Comment on above: Performed By: #### L IVER #### [facility] [address] [address] [address] Luis Alberto Olivia PLT 286 103/ul Normal 150-450 [facility] Comment on above: Performed By: #### L IVER #### [facility] [address] [address] [address] Luis Alberto Olivia RBC 3.34 106/ul Critically low 4.70-6.[address] [facility] Comment on above: Performed By: #### L IVER #### [facility] [address] [address] [address] Luis Alberto Olivia WBC 6.9 103/ul Normal 4.0-11.0 [facility] Comment on above: Performed By: #### L IVER #### [facility] [address] [place] [address] Dr[address] ABD/PELVIS WO [...] left kidney (image 37 series 2), likely proteinaceous/hemorrha gic cyst. No suspicious mass. No hydronephrosis. Bladder: Normal. Reproductive organs: Prostatomegaly, with similar treatment changes of the prostate. Seminal vesicles are unremarkable.. Gastrointestinal tract: No findings of obstruction. Colonic diverticulosis without acute diverticulitis. No findings of acute appendicitis. Peritoneum/retroperito neum: No free fluid or gas. Vasculature: Atherosclerosis without aneurysm. Lymph nodes: Normal. Abdominal wall: Fat-containing right inguinal hernia. Musculoskeletal: Degenerative change of the spine. IMPRESSION: 1. No acute findings within the abdomen or pelvis given limitations of noncontrast exam. Specifically negative for hydronephrosis or radiodense nephrolithiasis. 2. Unchanged chronic findings detailed above. Electronically authenticated by: KB SMALLWOOD Date: 2022-01-10 17:45 Normal [facility] CULTURE URINEon 01-10-2022 CULTURE URINE Culture Observations : NO GROWTH. Normal [facility] Comment on above: Performed By: #### U RCX #### [facility] [address] [place] [address] Dr. Luis Alberto Olivia ER URINE PROFILEon 2 Bilirubin Ql (U) Negative Normal NEGATIVE [facility] Comment on above: Performed By: #### B [id number] #### [facility] [address] [place] [address] Dr. Luis Alberto Olivia Clarity (U) CLEAR Normal CLEAR [facility] Comment on above: Performed By: #### B [id number] #### [facility] [address] [address] [address] Luis Alberto Olivia Color (U) LT. YELLOW Normal YELLOW [facility] Comment on above: Performed By: #### B [id number] #### [facility] [address] [place] [address] Dr. Luis Alberto [place] A micrscopic examination will be performed if indicated. Normal [facility] Comment on above: Performed By: #### B [id number] #### [facility] [address] [place] [address] Dr. Luis Alberto Olivia Glucose Ql (U) Negative Normal NEGATIVE [facility] Comment on above: Performed By: #### B LDCX2 #### [facility] [address] [place] [address] Dr. Luis Alberto Olivia Hemoglobin Ql (U) Negative Normal NEGATIVE [facility] Comment on above: Performed By: #### B LDCX2 #### [facility] [address] [place] [address] Dr. Luis Alberto Olivia Ketones Ql (U) Negative Normal NEGATIVE [facility] Comment on above: Performed By: #### B LDCX2 #### [facility] [address] [place] [address] Dr. Luis Alberto Olivia LEUKOCYTES SMALL Abnormal NEGATIVE [facility] Comment on above: Performed By: #### B LDCX2 #### [facility] [address] [place] [address] Dr. Luis Alberto Olivia Nitrite Ql (U) Negative Normal NEGATIVE [facility] Comment on above: Performed By: #### B [id number] #### [facility] [address] [place] [address] Dr. Luis Alberto Olivia pH (U) 6.0 [pH] Normal 5-9 [facility] Comment on above: Performed By: #### B LDCX2 #### [facility] [address] [place] [address] Dr. Luis Alberto Olivia SPEC GRAVITY 1.015 Normal 1.005-<=1.02 5 [facility] Comment on above: Performed By: #### B LDCX2 #### [facility] [address] [place] [address] Dr. Luis Alberto Olivia UA PROTEIN Negative Normal NEGATIVE/ TRACE [facility] Comment on above: Performed By: #### B LDCX2 #### [facility] [address] [place] [address] Dr. Luis Alberto Olivia UR MICRO IND INDICATED Normal [facility] Comment on above: Performed By: #### B LDCX2 #### [facility] [address] [place] [address] Dr. Luis Alberto Olivia Urobilinogen Qn (U) 0.2 {Srini'U}/dL Normal 0.2 - 1. 0 [facility] Comment on above: Performed By: #### B LDCX2 #### [facility] [address] [address] [address] Luis Alberto Olivia PROF CHEM 8 (BAS METB)on Anion gap [Moles/Vol] 12.1 mmol/L Normal [facility] Comment on above: Performed By: #### B LDCX2 #### [facility] [address] [place] [address] Dr. Luis Alberto Olivia Calcium [Mass/Vol] 9.0 mg/dL Normal 8.5-10.1 [facility] Comment on above: Performed By: #### B LDCX2 #### [facility] [address] [place] [address] Dr. Luis Alberto Olivia Chloride [Moles/Vol] 103 mmol/L Normal 98-107 [facility] Comment on above: Performed By: #### B LDCX2 #### [facility] [address] [place] [address] Dr. Luis Alberto Olivia CO2 [Moles/Vol] 27.9 mmol/L Normal 21.0-32.0 [facility] Comment on above: Performed By: #### B LDCX2 #### [facility] [address] [place] [address] Dr. Luis Alberto Olivia Creatinine [Mass/Vol] 1.28 mg/dL Normal 0.70-1.30 [facility] Comment on above: Performed By: #### B LDCX2 #### [facility] [address] [place] [address] Dr. Luis Alberto Olivia EGFR-AF [place] >60 Normal >=60 [facility] Comment on above: Performed By: #### B LDCX2 #### [facility] [address] [place] [address] Dr. Luis Alberto Olivia EGFR-NON AF [place] 55 mL/min/1.73m2 Critically low >=60 [facility] Comment on above: Performed By: #### B LDCX2 #### [facility] [address] [place] [address] Dr. Luis Alberto Olivia Glucose [Mass/Vol] 96 mg/dL Normal 74-106 [facility] Comment on above: Performed By: #### B LDCX2 #### [facility] [address] [place] [address] Dr. Luis Alberto Olivia Potassium [Moles/Vol] 4.0 mmol/L Normal 3.5-5.1 [facility] Comment on above: Performed By: #### B LDCX2 #### [facility] [address] [place] [address] Dr. Luis Alberto Olivia Sodium [Moles/Vol] 139 mmol/L Normal 136-145 [facility] Comment on above: Performed By: #### B LDCX2 #### [facility] [address] [place] [address] Dr. Luis Alberto Olivia Urea nitrogen [Mass/Vol] 13.0 mg/dL Normal 7.0-18.0 [facility] Comment on above: Performed By: #### B LDCX2 #### [facility] [address] [place] [address] Dr. Luis Alberto Olivia Urea nitrogen/Creatinine [Mass ratio] 10.2 mg/mg Normal [facility] Comment on above: Performed By: #### B LDCX2 #### [facility] [address] [place] [address] Dr. Luis Alberto Olivia URINE MICROSCOPIC ONLYon BACTERIA NONE SEEN Normal NONE SEEN [facility] Comment on above: Performed By: #### B LDCX2 #### [facility] [address] [place] [address] Dr. Luis Alberto Olivia Bacteria identified Cx Nom (U) INDICATED Normal [facility] Comment on above: Performed By: #### B LDCX2 #### [facility] [address] [place] [address] Dr. Luis Alberto Olivia CAST NONE SEEN Normal NONE SEEN [facility] Comment on above: Performed By: #### B [id number] #### [facility] [address] [place] [address] Dr. Luis Alberto Olivia Crystals LM Nom (Urine sed) NONE SEEN Normal NONE SEEN [facility] Comment on above: Performed By: #### B LDCX2 #### [facility] [address] [place] [address] Dr. Luis Alberto Olivia Epithelial cells LM Ql (Urine sed) MODERATE Abnormal NONE SEEN /RARE [facility] Comment on above: Performed By: #### B LDCX2 #### [facility] [address] [place] [address] Dr. Luis Alberto Olivia MUCOUS NONE SEEN Normal NONE SEEN [facility] Comment on above: Performed By: #### B [id number] #### [facility] [address] [place] [address] Dr. Luis Alberto Olivia RBC 0-2 Normal 0-2 [facility] Comment on above: Performed By: #### B LDCX2 #### [facility] [address] [place] [address] Dr. Luis Alberto Olivia WBC 10-20 Abnormal NONE SEEN [facility] Comment on above: Performed By: #### B LDCX2 #### [facility] [address] [place] [address] Dr. Luis Alberto Olivia CHEMISTRYOrdered By: SYSTEM SYSTEM on 01-01-2022 Anion gap [Moles/Vol] 13 mmol/L Normal 6 - 16 mEq/L [facility] Calcium [Mass/Vol] 9.5 mg/dL Normal 8.9 - 11. 1 mg/dL [facility] Chloride [Moles/Vol] 104 mmol/L Normal 101 - 1 11 mmol/L [facility] CO2 [Moles/Vol] 25 mmol/L Normal 21 - 31 mmol/L [facility] Creatinine [Mass/Vol] 1.1 mg/dL Normal 0.5 - 1.3 mg/dL [facility] GFR/1.73 sq M.predicted among blacks MDRD (S/P/Bld) [Vol rate/Area] mL/min/1.73 m2 Normal >=59mL/min/1 .73 m2 [facility] Chem S GFR/1.73 sq M.predicted among non-blacks MDRD (S/P/Bld) [Vol rate/Area] mL/min/1.73 m2 Normal >=59mL/min/1 .73 m2 [facility] Chem S Glucose [Mass/Vol] 124 mg/dL Normal [...] 4.5 E9/L Normal 4.0 - 11.0 E9/L [facility] HemeAutoSS CULTURE URINEon 12-25-2021 CULTURE URINE Isolate 1 Klebsiella pneumoniae >100,000 cfu/mL of ORGANISM 1 Klebsiella pneumoniae ANTIBIOTIC M.I.C RX STATUS Ampicillin 16 R F Ampicillin/Sulbactam 4 S F Piperacillin/Tazobacta m 8 S F Cefazolin <=4 S F Ceftazidime <=1 S F Ceftriaxone <=1 S F Ertapenem <=0.5 S F Imipenem <=0.25 S F Amikacin <=2 S F Gentamicin <=1 S F Tobramycin <=1 S F Ciprofloxacin <=0.25 S F Levofloxacin <=0.12 S F Nitrofurantoin <=16 S F Trimethoprim/Sulfameth oxazole <=20 S F Normal [facility] Comment on above: Performed By: #### R ETYPE #### [facility] [address] [place] [address] Dr. Luis Alberto Olivia PRBC LEUKOREDUCEDon 12-25-19 ABO and Rh group Nom (Bld) Cross Match Result Compatible Unit Blood Type O Pos Unit Number [id number] Status Information Transfused Product ID Red Blood Cells Product Code [id number] Cross Match Result Compatible Unit Blood Type O Pos Unit Number [id number] Status Information Transfused Product ID Red Blood Cells Product Code [id number] Normal [facility] Comment on above: Performed By: #### R ETYPE #### [facility] [address] [place] [address] Dr. Luis Alberto Olivia CBC AUTO DIFFon 12-23-2021 BASO # 0.0 103/ul Normal 0.0-0.1 [facility] Comment on above: Performed By: #### U RCX #### [facility] [address] [place] [address] Dr. Luis Alberto Olivia Basophils/100 WBC (Bld) 0.3 % Normal 0.2-2.0 [facility] Comment on above: Performed By: #### U RCX #### [facility] [address] [place] [address] Dr. Luis Alberto Olivia EO # 0.1 103/ul Normal 0.0-0.7 [facility] Comment on above: Performed By: #### U RCX #### [facility] [address] [place] [address] Dr. Luis Alberto Olivia Eosinophils/100 WBC (Bld) 0.8 % Critically low 0.9-7.0 [facility] Comment on above: Performed By: #### U RCX #### [facility] [address] [address] [address] Luis Alberto Olivia Erythrocyte distribution width (RBC) [Ratio] 18.3 % Critically high 11.0-15.0 [facility] Comment on above: Performed By: #### U RCX #### [facility] [address] [place] [address] Dr. Luis Alberto Olivia Hematocrit (Bld) [Volume fraction] 25.0 % Critically low 42.0-54.0 [facility] Comment on above: Performed By: #### U RCX #### [facility] [address] [place] [address] Dr. Luis Alberto Olivia Hemoglobin (Bld) [Mass/Vol] 7.7 g/dL Critically low 14.0-18.0 [facility] Comment on above: Performed By: #### U RCX #### [facility] [address] [place] [address] Dr. Luis Alberto Olivia IG # 0.03 10e3/ul Normal 0.00-0.03 [facility] Comment on above: Performed By: #### U RCX #### [facility] [address] [place] [address] Dr. Luis Alberto Olivia IG % 0.5 % Normal 0.0-0.5 [facility] Comment on above: Performed By: #### U RCX #### [facility] [address] [place] [address] Dr. Luis Alberto Olivia LYMPH # 0.6 103/ul Critically low 1.2-3.8 [facility] Comment on above: Performed By: #### U RCX #### [facility] [address] [place] [address] Dr. Luis Alberto Olivia Lymphocytes/100 WBC (Bld) 9.9 % Critically low 20.5-60.0 [facility] Comment on above: Performed By: #### U RCX #### [facility] [address] [place] [address] Dr. Luis Alberto Olivia MANUAL DIFF REQ NO Normal [facility] Comment on above: Performed By: #### U RCX #### [facility] [address] [address] [address] Luis Alberto Olivia MCH (RBC) [Entitic mass] 30.9 pg Normal 25.9-34.0 [facility] Comment on above: Performed By: #### U RCX #### [facility] [address] [address] [address] Luis Alberto Olivia MCHC (RBC) [Mass/Vol] 30.8 g/dL Normal 29.9-35.2 [facility] Comment on above: Performed By: #### U RCX #### [facility] [address] [place] [address] Dr. Luis Alberto Olivia MCV (RBC) [Entitic vol] 100.4 fL Critically high 80.0-94.0 [facility] Comment on above: Performed By: #### U RCX #### [facility] [address] [place] [address] Dr. Luis Alberto Olivia MONO # 0.6 103/ul Normal 0.3-0.8 [facility] Comment on above: Performed By: #### U RCX #### [facility] [address] [place] [address] Dr. Luis Alberto Olivia Monocytes/100 WBC (Bld) 9.4 % Normal 1.7-12.0 [facility] Comment on above: Performed By: #### U RCX #### [facility] [address] [place] [address] Dr. Luis Alberto Olivia NEUT # 4.9 103/ul Normal 1.4-6.5 [facility] Comment on above: Performed By: #### U RCX #### [facility] [address] [place] [address] Dr. Luis Alberto Olivia Neutrophils/100 WBC (Bld) 79.1 % Critically high 43.0-75.0 [facility] Comment on above: Performed By: #### U RCX #### [facility] [address] [place] [address] Dr. Luis Alberto Olivia Platelet mean volume (Bld) [Entitic vol] 10.2 fL Normal 9.5-13.5 [facility] Comment on above: Performed By: #### U RCX #### [facility] [address] [address] [address] Luis Alberto Olivia PLT 254 103/ul Normal 150-450 [facility] Comment on above: Performed By: #### U RCX #### [facility] [address] [address] [address] Luis Alberto Olivia RBC 2.49 106/ul Critically low 4.70-6.[address] [facility] Comment on above: Performed By: #### U RCX #### [facility] [address] [address] [address] Luis Alberto Olivia WBC 6.2 103/ul Normal 4.0-11.0 [facility] Comment on above: Performed By: #### U RCX #### [facility] [address] [place] [address] Dr. Luis Alberto Olivia PROF 14(COMP METB)on 022 Albumin [Mass/Vol] 2.7 g/dL Critically low 3.4-5.0 [facility] Comment on above: Performed By: #### U RCX #### [facility] [address] [place] [address] Dr. Luis Alberto Olivia Albumin/Globulin [Mass ratio] 0.8 {ratio} Normal [facility] Comment on above: Performed By: #### U RCX #### [facility] [address] [place] [address] Dr. Luis Alberto Olivia ALP [Catalytic activity/Vol] 42 U/L Critically low 46-116 [facility] Comment on above: Performed By: #### U RCX #### [facility] [address] [address] [address] Luis Alberto Olivia ALT [Catalytic activity/Vol] 26 U/L Normal 16-63 [facility] Comment on above: Performed By: #### U RCX #### [facility] [address] [place] [address] Dr. Luis Alberto Olivia Anion gap [Moles/Vol] 14.2 mmol/L Normal [facility] Comment on above: Performed By: #### U RCX #### [facility] [address] [address] [address] Luis Alberto Olivia AST [Catalytic activity/Vol] 26 U/L Normal 15-37 [facility] Comment on above: Performed By: #### U RCX #### [facility] [address] [address] [address] Luis Alberto Olivia Bilirubin [Mass/Vol] 0.8 mg/dL Normal 0.2-1.0 [facility] Comment on above: Performed By: #### U RCX #### [facility] [address] [address] [address] Luis Alberto Olivia Calcium [Mass/Vol] 8.3 mg/dL Critically low 8.5-10.1 [facility] Comment on above: Performed By: #### U RCX #### [facility] [address] [place] [address] Dr. Luis Alberto Olivia Chloride [Moles/Vol] 100 mmol/L Normal 98-107 [facility] Comment on above: Performed By: #### U RCX #### [facility] [address] [address] [address] Luis Alberto Olivia CO2 [Moles/Vol] 22.5 mmol/L Normal 21.0-32.0 [facility] Comment on above: Performed By: #### U RCX #### [facility] [address] [address] [address] Luis Alberto Olivia Creatinine [Mass/Vol] 1.05 mg/dL Normal 0.70-1.30 [facility] Comment on above: Performed By: #### U RCX #### [facility] [address] [address] [address] Luis Alberto Olivia EGFR-AF [place] >60 Normal >=60 [facility] Comment on above: Performed By: #### U RCX #### [facility] [address] [address] [address] Luis Alberto Olivia EGFR-NON AF [place] >60 Normal >=60 [facility] Comment on above: Performed By: #### U RCX #### [facility] [address] [address] [address] Luis Alberto Olivia Globulin (S) [Mass/Vol] 3.5 g/dL Normal [facility] Comment on above: Performed By: #### U RCX #### [facility] [address] [address] [address] Luis Alberto Olivia Glucose [Mass/Vol] 108 mg/dL Critically high 74-106 [facility] Comment on above: Performed By: #### U RCX #### [facility] [address] [place] [address] Dr. Luis Alberto Olivia Potassium [Moles/Vol] 3.7 mmol/L Normal 3.5-5.1 [facility] Comment on above: Performed By: #### U RCX #### [facility] [address] [place] [address] Dr. Luis Alberto Olivia Protein [Mass/Vol] 6.2 g/dL Critically low 6.4-8.2 [facility] Comment on above: Performed By: #### U RCX #### [facility] [address] [place] [address] Dr. Luis Alberto Olivia Sodium [Moles/Vol] 133 mmol/L Critically low 136-145 [facility] Comment on above: Performed By: #### U RCX #### [facility] [address] [place] [address] Dr. Luis Alberto Olivia Urea nitrogen [Mass/Vol] 13.0 mg/dL Normal 7.0-18.0 [facility] Comment on above: Performed By: #### U RCX #### [facility] [address] [place] [address] Dr. Luis Alberto Olivia Urea nitrogen/Creatinine [Mass ratio] 12.4 mg/mg Normal [facility] Comment on above: Performed By: #### U RCX #### [facility] [address] [place] [address] Dr. Luis Alberto Olivia CBC AUTO DIFFon 12-22-2021 BASO # 0.0 103/ul Normal 0.0-0.1 [facility] Comment on above: Performed By: #### L IVER #### [facility] [address] [address] [address] Luis Alberto Olivia Basophils/100 WBC (Bld) 0.4 % Normal 0.2-2.0 [facility] Comment on above: Performed By: #### L IVER #### [facility] [address] [address] [address] Luis Alberto Olivia EO # 0.0 103/ul Normal 0.0-0.7 [facility] Comment on above: Performed By: #### L IVER #### [facility] [address] [address] [address] Luis Alberto Olivia Eosinophils/100 WBC (Bld) 0.2 % Critically low 0.9-7.0 [facility] Comment on above: Performed By: #### L IVER #### [facility] [address] [place] [address] Dr. Luis Alberto Olivia Erythrocyte distribution width (RBC) [Ratio] 19.2 % Critically high 11.0-15.0 [facility] Comment on above: Performed By: #### L IVER #### [facility] [address] [place] [address] Dr. Luis Alberto Olivia Hematocrit (Bld) [Volume fraction] 27.1 % Critically low 42.0-54.0 [facility] Comment on above: Performed By: #### L IVER #### [facility] [address] [place] [address] Dr. Luis Alberto Olivia Hemoglobin (Bld) [Mass/Vol] 8.5 g/dL Critically low 14.0-18.0 [facility] Comment on above: Performed By: #### L IVER #### [facility] [address] [address] [address] Luis Alberto Olivia IG # 0.07 10e3/ul Critically high 0.00-0.03 [facility] Comment on above: Performed By: #### L IVER #### [facility] [address] [place] [address] Dr. Luis Alberto Olivia IG % 0.8 % Critically high 0.0-0.[address] [facility] Comment on above: Performed By: #### L IVER #### [facility] [address] [address] [address] Luis Alberto Olivia LYMPH # 0.7 103/ul Critically low 1.2-3.8 [facility] Comment on above: Performed By: #### L IVER #### [facility] [address] [address] [address] Luis Alberto Olivia Lymphocytes/100 WBC (Bld) 7.9 % Critically low 20.5-60.0 [facility] Comment on above: Performed By: #### L IVER #### [facility] [address] [address] [address] Luis Alberto Olivia MANUAL DIFF REQ NO Normal [facility] Comment on above: Performed By: #### L IVER #### [facility] [address] [address] [address] LuisA lberto Olivia MCH (RBC) [Entitic mass] 31.6 pg Normal 25.9-34.0 [facility] Comment on above: Performed By: #### L IVER #### [facility] [address] [address] [address] Luis Alberto Olivia MCHC (RBC) [Mass/Vol] 31.4 g/dL Normal 29.9-35.2 [facility] Comment on above: Performed By: #### L IVER #### [facility] [address] [address] [address] Luis Alberto Olivia MCV (RBC) [Entitic vol] 100.7 fL Critically high 80.0-94.0 [facility] Comment on above: Performed By: #### L IVER #### [facility] [address] [address] [address] Luis Alberto Olivia MONO # 0.7 103/ul Normal 0.3-0.8 [facility] Comment on above: Performed By: #### L IVER #### [facility] [address] [address] [address] Luis Alberto Olivia Monocytes/100 WBC (Bld) 7.8 % Normal 1.7-12.0 [facility] Comment on above: Performed By: #### L IVER #### [facility] [address] [address] [address] Luis Alberto Olivia NEUT # 7.5 103/ul Critically high 1.4-6.5 [facility] Comment on above: Performed By: #### L IVER #### [facility] [address] [address] [address] Luis Alberto Olivia Neutrophils/100 WBC (Bld) 82.9 % Critically high 43.0-75.0 [facility] Comment on above: Performed By: #### L IVER #### [facility] [address] [address] [address] Luis Alberto Olivia Platelet mean volume (Bld) [Entitic vol] 9.4 fL Critically low 9.5-13.5 [facility] Comment on above: Performed By: #### L IVER #### [facility] [address] [address] [address] Luis Alberto Olivia PLT 232 103/ul Normal 150-450 [facility] Comment on above: Performed By: #### L IVER #### [facility] [address] [address] [address] Luis Alberto Olivia RBC 2.69 106/ul Critically low 4.70-6.10 [facility] Comment on above: Performed By: #### L IVER #### [facility] [address] [address] [address] Luis Alberto Olivia WBC 9.0 103/ul Normal 4.0-11.0 [facility] Comment on above: Performed By: #### L IVER #### [facility] [address] [address] [address] Luis Alberto Olivia HEMOGLOBIN AND HEMATOCRITon 12-22-2021 Hematocrit (Bld) [Volume fraction] 24.2 % Critically low 42.0-54.0 [facility] Comment on above: Performed By: #### U RCX #### [facility] [address] [address] [address] Luis Alberto Olivia Hemoglobin (Bld) [Mass/Vol] 7.7 g/dL Critically low 14.0-18.0 [facility] Comment on above: Performed By: #### U RCX #### [facility] [address] [place] [address] Dr. Luis Alberto Olivia Hematocrit (Bld) [Volume fraction] 24.2 % Critically low 42.0-54.0 [facility] Comment on above: Performed By: #### T RANSFR #### [facility] [address] [place] [address] Dr. Luis Alberto Olivia Hemoglobin (Bld) [Mass/Vol] 7.7 g/dL Critically low 14.0-18.0 [facility] Comment on above: Performed By: #### T RANSFR #### [facility] [address] [place] [address] Dr. Luis Alberto Olivia PROF 14(COMP METB)on 022 Albumin [Mass/Vol] 2.8 g/dL Critically low 3.4-5.0 [facility] Comment on above: Performed By: #### L IVER #### [facility] [address] [place] [address] Dr. Luis Alberto Olivia Albumin/Globulin [Mass ratio] 0.8 {ratio} Normal [facility] Comment on above: Performed By: #### L IVER #### [facility] [address] [place] [address] Dr. Luis Alberto Olivia ALP [Catalytic activity/Vol] 43 U/L Critically low 46-116 [facility] Comment on above: Performed By: #### L IVER #### [facility] [address] [place] [address] Dr. Luis Alberto Olivia ALT [Catalytic activity/Vol] 20 U/L Normal 16-63 [facility] Comment on above: Performed By: #### L IVER #### [facility] [address] [place] [address] Dr. Luis Alberto Olivia Anion gap [Moles/Vol] 10.9 mmol/L Normal [facility] Comment on above: Performed By: #### L IVER #### [facility] [address] [place] [address] Dr. Luis Alberto Olivia AST [Catalytic activity/Vol] 23 U/L Normal 15-37 [facility] Comment on above: Performed By: #### L IVER #### [facility] [address] [place] [address] Dr. Luis Alberto Olivia Bilirubin [Mass/Vol] 0.7 mg/dL Normal 0.2-1.0 [facility] Comment on above: Performed By: #### L IVER #### [facility] [address] [place] [address] Dr. Luis Alberto Olivia Calcium [Mass/Vol] 8.0 mg/dL Critically low 8.5-10.1 [facility] Comment on above: Performed By: #### L IVER #### [facility] [address] [place] [address] Dr. Luis Alberto Olivia Chloride [Moles/Vol] 103 mmol/L Normal 98-107 [facility] Comment on above: Performed By: #### L IVER #### [facility] [address] [place] [address] Dr. Luis Alberto Olivia CO2 [Moles/Vol] 22.2 mmol/L Normal 21.0-32.0 [facility] Comment on above: Performed By: #### L IVER #### [facility] [address] [place] [address] Dr. Luis Alberto Olivia Creatinine [Mass/Vol] 1.08 mg/dL Normal 0.70-1.30 [facility] Comment on above: Performed By: #### L IVER #### [facility] [address] [place] [address] Dr. Luis Alberto Olivia EGFR-AF [place] >60 Normal >=60 [facility] Comment on above: Performed By: #### L IVER #### [facility] [address] [place] [address] Dr. Luis Alberto Olivia EGFR-NON AF [place] >60 Normal >=60 [facility] Comment on above: Performed By: #### L IVER #### [facility] [address] [place] [address] Dr. Luis Alberto Olivia Globulin (S) [Mass/Vol] 3.5 g/dL Normal [facility] Comment on above: Performed By: #### L IVER #### [facility] [address] [place] [address] Dr. Luis Alberto Olivia Glucose [Mass/Vol] 119 mg/dL Critically high 74-106 [facility] Comment on above: Performed By: #### L IVER #### [facility] [address] [place] [address] Dr. Luis Alberto Olivia Potassium [Moles/Vol] 4.1 mmol/L Normal 3.5-5.1 [facility] Comment on above: Performed By: #### L IVER #### [facility] [address] [place] [address] Dr. Luis Alberto Olivia Protein [Mass/Vol] 6.3 g/dL Critically low 6.4-8.2 [facility] Comment on above: Performed By: #### L IVER #### [facility] [address] [place] [address] Dr. Luis Alberto Olivia Sodium [Moles/Vol] 132 mmol/L Critically low 136-145 [facility] Comment on above: Performed By: #### L IVER #### [facility] [address] [place] [address] Dr. Luis Alberto Olivia Urea nitrogen [Mass/Vol] 17.0 mg/dL Normal 7.0-18.0 [facility] Comment on above: Performed By: #### L IVER #### [facility] [address] [place] [address] Dr. Luis Alberto Olivia Urea nitrogen/Creatinine [Mass ratio] 15.7 mg/mg Normal [facility] Comment on above: Performed By: #### L IVER #### [facility] [address] [place] [address] Dr. Luis Alberto Olivia TRANSFERRINon 12-22-2021 Transferrin [Mass/Vol] 327 mg/dL Normal 177-329 [facility] Comment on above: Performed By: #### T RANSFR #### [facility] [address] [place] [address] Dr. Luis Alberto Olivia CBC AUTO DIFFon 12-21-2021 BASO # 0.0 103/ul Normal 0.0-0.1 [facility] Comment on above: Performed By: #### B LDCX2 #### [facility] [address] [place] [address] Dr. Luis Alberto Olivia Basophils/100 WBC (Bld) 0.4 % Normal 0.2-2.0 [facility] Comment on above: Performed By: #### B LDCX2 #### [facility] [address] [address] [address] Luis Alberto Olivia EO # 0.1 103/ul Normal 0.0-0.7 [facility] Comment on above: Performed By: #### B LDCX2 #### [facility] [address] [place] [address] Dr. Luis Alberto Olivia Eosinophils/100 WBC (Bld) 1.2 % Normal 0.9-7.0 [facility] Comment on above: Performed By: #### B LDCX2 #### [facility] [address] [place] [address] Dr. Luis Alberto Olivia Erythrocyte distribution width (RBC) [Ratio] 19.1 % Critically high 11.0-15.0 [facility] Comment on above: Performed By: #### B LDCX2 #### [facility] [address] [place] [address] Dr. Luis Alberto Olivia Hematocrit (Bld) [Volume fraction] 26.9 % Critically low 42.0-54.0 [facility] Comment on above: Performed By: #### B LDCX2 #### [facility] [address] [place] [address] Dr. Luis Alberto Olivia Hemoglobin (Bld) [Mass/Vol] 8.4 g/dL Critically low 14.0-18.0 [facility] Comment on above: Result Comment: RECE IVING PRBCS Performed By: #### B LDCX2 #### [facility] [address] [place] [address] Dr. Luis Alberto Olivia IG # 0.06 10e3/ul Critically high 0.00-0.03 [facility] Comment on above: Performed By: #### B LDCX2 #### [facility] [address] [address] [address] Luis Alberto Olivia IG % 0.7 % Critically high 0.0-0.[address] [facility] Comment on above: Performed By: #### B LDCX2 #### [facility] [address] [address] [address] Luis Alberto Olivia LYMPH # 0.6 103/ul Critically low 1.2-3.8 [facility] Comment on above: Performed By: #### B LDCX2 #### [facility] [address] [address] [address] Luis Alberto Olivia Lymphocytes/100 WBC (Bld) 7.3 % Critically low 20.5-60.0 [facility] Comment on above: Performed By: #### B LDCX2 #### [facility] [address] [place] [address] Dr. Luis Alberto Olivia MANUAL DIFF REQ NO Normal [facility] Comment on above: Performed By: #### B LDCX2 #### [facility] [address] [address] [address] Luis Alberto Olivia MCH (RBC) [Entitic mass] 31.5 pg Normal 25.9-34.0 [facility] Comment on above: Performed By: #### B LDCX2 #### [facility] [address] [address] [address] Luis Alberto Olivia MCHC (RBC) [Mass/Vol] 31.2 g/dL Normal 29.9-35.2 [facility] Comment on above: Performed By: #### B LDCX2 #### [facility] [address] [address] [address] Luis Alberto Olivia MCV (RBC) [Entitic vol] 100.7 fL Critically high 80.0-94.0 [facility] Comment on above: Performed By: #### B LDCX2 #### [facility] [address] [address] [address] Luis Alberto Olivia MONO # 0.6 103/ul Normal 0.3-0.8 [facility] Comment on above: Performed By: #### B LDCX2 #### [facility] [address] [address] [address] Luis Alberto Olivia Monocytes/100 WBC (Bld) 7.0 % Normal 1.7-12.0 [facility] Comment on above: Performed By: #### B LDCX2 #### [facility] [address] [address] [address] Luis Alberto Olivia NEUT # 7.0 103/ul Critically high 1.4-6.5 [facility] Comment on above: Performed By: #### B LDCX2 #### [facility] [address] [place] [address] Dr. Luis Alberto Olivia Neutrophils/100 WBC (Bld) 83.4 % Critically high 43.0-75.0 [facility] Comment on above: Performed By: #### B LDCX2 #### [facility] [address] [place] [address] Dr. Luis Alberto Olivia Platelet mean volume (Bld) [Entitic vol] 9.4 fL Critically low 9.5-13.5 [facility] Comment on above: Performed By: #### B LDCX2 #### [facility] [address] [place] [address] Dr. Luis Alberto Olivia PLT 225 103/ul Normal 150-450 [facility] Comment on above: Performed By: #### B [id number] #### [facility] [address] [place] [address] Dr. Luis Alberto Olivia RBC 2.67 106/ul Critically low 4.70-6.10 [facility] Comment on above: Performed By: #### B [id number] #### [facility] [address] [place] [address] Dr. Luis Alberto Olivia WBC 8.4 103/ul Normal 4.0-11.0 [facility] Comment on above: Performed By: #### B [id number] #### [facility] [address] [place] [address] Dr. Luis Alberto Olivia BASO # 0.0 103/ul Normal 0.0-0.1 [facility] Comment on above: Performed By: #### C BC #### [facility] [address] [address] [address] Luis Alberto Olivia Basophils/100 WBC (Bld) 0.3 % Normal 0.2-2.0 [facility] Comment on above: Performed By: #### C BC #### [facility] [address] [address] [address] Luis Alberto Olivia EO # 0.1 103/ul Normal 0.0-0.7 [facility] Comment on above: Performed By: #### C BC #### [facility] [address] [address] [address] Luis Alberto Olivia Eosinophils/100 WBC (Bld) 1.8 % Normal 0.9-7.0 [facility] Comment on above: Performed By: #### C BC #### [facility] [address] [address] [address] Luis Alberto Olivia Erythrocyte distribution width (RBC) [Ratio] 19.0 % Critically high 11.0-15.0 [facility] Comment on above: Performed By: #### C BC #### [facility] [address] [address] [address] Luis Alberto Olivia Hematocrit (Bld) [Volume fraction] 18.5 % Critically low 42.0-54.0 [facility] Comment on above: Performed By: #### C BC #### [facility] [address] [address] [address] Luis Alberto Olivia Hemoglobin (Bld) [Mass/Vol] 5.8 g/dL Critically low 14.0-18.0 [facility] Comment on above: Performed By: #### C BC #### [facility] [address] [address] [address] Luis Alberto Olivia IG # 0.04 10e3/ul Critically high 0.00-0.03 [facility] Comment on above: Performed By: #### C BC #### [facility] [address] [address] [address] Luis Alberto Olivia IG % 0.6 % Critically high 0.0-0.[address] [facility] Comment on above: Performed By: #### C BC #### [facility] [address] [address] [address] Luis Alberto Olivia LYMPH # 0.8 103/ul Critically low 1.2-3.8 [facility] Comment on above: Performed By: #### C BC #### [facility] [address] [address] [address] Luis Alberto Olivia Lymphocytes/100 WBC (Bld) 13.4 % Critically low 20.5-60.0 [facility] Comment on above: Performed By: #### C BC #### [facility] [address] [place] [address] Dr. Luis Alberto Olivia MANUAL DIFF REQ NO Normal [facility] Comment on above: Performed By: #### C BC #### [facility] [address] [place] [address] Dr. Luis Alberto Olivia MCH (RBC) [Entitic mass] 31.7 pg Normal 25.9-34.0 [facility] Comment on above: Performed By: #### C BC #### [facility] [address] [place] [address] Dr. Luis Alberto Olivia MCHC (RBC) [Mass/Vol] 31.4 g/dL Normal 29.9-35.2 [facility] Comment on above: Performed By: #### C BC #### [facility] [address] [place] [address] Dr. Luis Alberto Olivia MCV (RBC) [Entitic vol] 101.1 fL Critically high 80.0-94.0 [facility] Comment on above: Performed By: #### C BC #### [facility] [address] [address] [address] Luis Alberto Olivia MONO # 0.6 103/ul Normal 0.3-0.8 [facility] Comment on above: Performed By: #### C BC #### [facility] [address] [place] [address] Dr. Luis Alberto Olivia Monocytes/100 WBC (Bld) 8.8 % Normal 1.7-12.0 [facility] Comment on above: Performed By: #### C BC #### [facility] [address] [address] [address] Luis Alberto Olivia NEUT # 4.7 103/ul Normal 1.4-6.5 [facility] Comment on above: Performed By: #### C BC #### [facility] [address] [address] [address] Luis Alberto Olivia Neutrophils/100 WBC (Bld) 75.1 % Critically high 43.0-75.0 [facility] Comment on above: Performed By: #### C BC #### [facility] [address] [place] [address] Dr. Luis Alberto Olivia Platelet mean volume (Bld) [Entitic vol] 9.5 fL Normal 9.5-13.5 [facility] Comment on above: Performed By: #### C BC #### [facility] [address] [place] [address] Dr. Luis Alberto Olivia PLT 203 103/ul Normal 150-450 [facility] Comment on above: Performed By: #### C BC #### [facility] [address] [place] [address] Dr. Luis Alberto Olivia RBC 1.83 106/ul Critically low 4.70-6.10 [facility] Comment on above: Performed By: #### C BC #### [facility] [address] [place] [address] Dr. Luis Alberto Olivia WBC 6.3 103/ul Normal 4.0-11.0 [facility] Comment on above: Performed By: #### C BC #### [facility] [address] [place] [address] Dr. Luis Alberto Olivia BASO # 0.0 103/ul Normal 0.0-0.1 [facility] Comment on above: Performed By: #### B [id number] #### [facility] [address] [place] [address] Dr. Luis Alberto Olivia Basophils/100 WBC (Bld) 0.3 % Normal 0.2-2.0 [facility] Comment on above: Performed By: #### B LDCX2 #### [facility] [address] [address] [address] Luis Alberto Olivia EO # 0.2 103/ul Normal 0.0-0.7 [facility] Comment on above: Performed By: #### B LDCX2 #### [facility] [address] [address] [address] Luis Alberto Olivia Eosinophils/100 WBC (Bld) 2.9 % Normal 0.9-7.0 [facility] Comment on above: Performed By: #### B LDCX2 #### [facility] [address] [place] [address] Dr. Luis Alberto Olivia Erythrocyte distribution width (RBC) [Ratio] 18.4 % Critically high 11.0-15.0 [facility] Comment on above: Performed By: #### B LDCX2 #### [facility] [address] [place] [address] Dr. Luis Alberto Olivia Hematocrit (Bld) [Volume fraction] 17.4 % Critically low 42.0-54.0 [facility] Comment on above: Performed By: #### B LDCX2 #### [facility] [address] [place] [address] Dr. Luis Alberto Olivia Hemoglobin (Bld) [Mass/Vol] 5.5 g/dL Critically low 14.0-18.0 [facility] Comment on above: Performed By: #### B LDCX2 #### [facility] [address] [address] [address] Luis Alberto Olivia IG # 0.05 10e3/ul Critically high 0.00-0.03 [facility] Comment on above: Performed By: #### B LDCX2 #### [facility] [address] [place] [address] Dr. Luis Alberto Olivia IG % 0.8 % Critically high 0.0-0.[address] [facility] Comment on above: Performed By: #### B LDCX2 #### [facility] [address] [place] [address] Dr. Luis Alberto Olivia LYMPH # 0.8 103/ul Critically low 1.2-3.8 [facility] Comment on above: Performed By: #### B [id number] #### [facility] [address] [address] [address] Luis Alberto Olivia Lymphocytes/100 WBC (Bld) 12.8 % Critically low 20.5-60.0 [facility] Comment on above: Performed By: #### B LDCX2 #### [facility] [address] [address] [address] Luis Alberto Olivia MANUAL DIFF REQ NO Normal [facility] Comment on above: Performed By: #### B [id number] #### [facility] [address] [place] [address] Dr. Luis Alberto Olivia MCH (RBC) [Entitic mass] 32.5 pg Normal 25.9-34.0 [facility] Comment on above: Performed By: #### B [id number] #### [facility] [address] [place] [address] Dr. Luis Alberto Olivia MCHC (RBC) [Mass/Vol] 31.6 g/dL Normal 29.9-35.2 [facility] Comment on above: Performed By: #### B [id number] #### [facility] [address] [place] [address] Dr. Luis Alberto Olivia MCV (RBC) [Entitic vol] 103.0 fL Critically high 80.0-94.0 [facility] Comment on above: Performed By: #### B [id number] #### [facility] [address] [place] [address] Dr. Luis Alberto Olivia MONO # 0.5 103/ul Normal 0.3-0.8 [facility] Comment on above: Performed By: #### B [id number] #### [facility] [address] [place] [address] Dr. Luis Alberto Olivia Monocytes/100 WBC (Bld) 7.6 % Normal 1.7-12.0 [facility] Comment on above: Performed By: #### B [id number] #### [facility] [address] [place] [address] Dr. Luis Alberto Olivia NEUT # 5.0 103/ul Normal 1.4-6.5 [facility] Comment on above: Performed By: #### B [id number] #### [facility] [address] [place] [address] Dr. Luis Alberto Olivia Neutrophils/100 WBC (Bld) 75.6 % Critically high 43.0-75.0 [facility] Comment on above: Performed By: #### B [id number] #### [facility] [address] [place] [address] Dr. Luis Alberto Olivia Platelet mean volume (Bld) [Entitic vol] 9.5 fL Normal 9.5-13.5 [facility] Comment on above: Performed By: #### B [id number] #### [facility] [address] [place] [address] Dr. Luis Alberto Olivia PLT 224 103/ul Normal 150-450 [facility] Comment on above: Performed By: #### B [id number] #### [facility] [address] [place] [address] Dr. Luis Alberto Olivia RBC 1.69 106/ul Critically low 4.70-6.[address] [facility] Comment on above: Performed By: #### B [id number] #### [facility] [address] [place] [address] Dr. Luis Alberto Olivia WBC 6.6 103/ul Normal 4.0-11.0 [facility] Comment on above: Performed By: #### B LDCX2 #### [facility] [address] [place] [address] Dr. Luis Alberto Olivia ER URINE PROFILEon 2 Bilirubin Ql (U) Negative Normal NEGATIVE [facility] Comment on above: Performed By: #### L IVER #### [facility] [address] [place] [address] Dr. Luis Alberto Olivia Clarity (U) CLOUDY Abnormal CLEAR [facility] Comment on above: Performed By: #### L IVER #### [facility] [address] [place] [address] Dr. Luis Alberto Olivia Color (U) YELLOW Normal YELLOW [facility] Comment on above: Performed By: #### L IVER #### [facility] [address] [address] [address] Luis Alberto [place] A micrscopic examination will be performed if indicated. Normal [facility] Comment on above: Performed By: #### L IVER #### [facility] [address] [address] [address] Luis Alberto Olivia Glucose Ql (U) Negative Normal NEGATIVE [facility] Comment on above: Performed By: #### L IVER #### [facility] [address] [address] [address] Luis Alberto Olivia Hemoglobin Ql (U) Negative Normal NEGATIVE [facility] Comment on above: Performed By: #### L IVER #### [facility] [address] [place] [address] Dr. Luis Alberto Olivia Ketones Ql (U) Negative Normal NEGATIVE [facility] Comment on above: Performed By: #### L IVER #### [facility] [address] [place] [address] Dr. Luis Alberto Olivia LEUKOCYTES LARGE Abnormal NEGATIVE [facility] Comment on above: Performed By: #### L IVER #### [facility] [address] [address] [address] Luis Alberto Olivia Nitrite Ql (U) Negative Normal NEGATIVE [facility] Comment on above: Performed By: #### L IVER #### [facility] [address] [place] [address] Dr. Luis Alberto Olivia pH (U) 6.0 [pH] Normal 5-9 [facility] Comment on above: Performed By: #### L IVER #### [facility] [address] [place] [address] Dr. Luis Alberto Olivia SPEC GRAVITY 1.010 Normal 1.005-<=1.02 5 [facility] Comment on above: Performed By: #### L IVER #### [facility] [address] [place] [address] Dr. Luis Alberto Olivia UA PROTEIN Negative Normal NEGATIVE/ TRACE [facility] Comment on above: Performed By: #### L IVER #### [facility] [address] [place] [address] Dr. Luis Alberto Olivia UR MICRO IND INDICATED Normal [facility] Comment on above: Performed By: #### L IVER #### [facility] [address] [place] [address] Dr. Luis Alberto Olivia Urobilinogen Qn (U) 0.2 {Srini'U}/dL Normal 0.2 - 1. 0 [facility] Comment on above: Performed By: #### L IVER #### [facility] [address] [place] [address] Dr. Luis Alberto Olivia H PYLORI TISSUEon 12-21-2021 H PYL TISSUE, UREASE Negative Normal NEGATIVE [facility] Comment on above: Performed By: #### U RCX #### [facility] [address] [place] [address] Dr. Luis Alberto Olivia NM GI BLEEDon [...] by: KADEN FREITAS Date: 2021-12-21 08:50 Normal [facility] PRBC LEUKOREDUCEDon 12-22-19 ABO and Rh group Nom (Bld) Cross Match Result Compatible Unit Blood Type O Pos Unit Number [id number] Status Information Transfused Product ID Red Blood Cells Product Code [id number] Cross Match Result Compatible Unit Blood Type O Pos Unit Number [id number] Status Information Transfused Product ID Red Blood Cells Product Code [id number] Normal [facility] Comment on above: Performed By: #### P RBC #### [facility] [address] [place] [address] Dr. Luis Alberto Olivia PROF 14(COMP METB)on 022 Albumin [Mass/Vol] 2.6 g/dL Critically low 3.4-5.0 [facility] Comment on above: Performed By: #### B LDCX2 #### [facility] [address] [address] [address] Luis Alberto Olivia Albumin/Globulin [Mass ratio] 1.0 {ratio} Normal [facility] Comment on above: Performed By: #### B LDCX2 #### [facility] [address] [address] [address] Luis Alberto Olivia ALP [Catalytic activity/Vol] 37 U/L Critically low 46-116 [facility] Comment on above: Performed By: #### B LDCX2 #### [facility] [address] [address] [address] Luis Alberto Olivia ALT [Catalytic activity/Vol] 16 U/L Normal 16-63 [facility] Comment on above: Performed By: #### B LDCX2 #### [facility] [address] [place] [address] Dr. Luis Alberto Olivia Anion gap [Moles/Vol] 10.8 mmol/L Normal [facility] Comment on above: Performed By: #### B LDCX2 #### [facility] [address] [place] [address] Dr. Luis Alberto Olivia AST [Catalytic activity/Vol] 18 U/L Normal 15-37 [facility] Comment on above: Performed By: #### B LDCX2 #### [facility] [address] [place] [address] Dr. Luis Alberto Olivia Bilirubin [Mass/Vol] 0.5 mg/dL Normal 0.2-1.0 [facility] Comment on above: Performed By: #### B LDCX2 #### [facility] [address] [address] [address] Luis Alberto Olivia Calcium [Mass/Vol] 7.8 mg/dL Critically low 8.5-10.1 [facility] Comment on above: Performed By: #### B LDCX2 #### [facility] [address] [address] [address] Luis Alberto Olivia Chloride [Moles/Vol] 103 mmol/L Normal 98-107 [facility] Comment on above: Performed By: #### B LDCX2 #### [facility] [address] [address] [address] Luis Alberto Olivia CO2 [Moles/Vol] 25.6 mmol/L Normal 21.0-32.0 [facility] Comment on above: Performed By: #### B LDCX2 #### [facility] [address] [address] [address] Luis Alberto Olivia Creatinine [Mass/Vol] 1.33 mg/dL Critically high 0.70-1.30 [facility] Comment on above: Performed By: #### B LDCX2 #### [facility] [address] [address] [address] Luis Alberto Olivia EGFR-AF [place] >60 Normal >=60 [facility] Comment on above: Performed By: #### B LDCX2 #### [facility] [address] [address] [address] Luis Alberto Olivia EGFR-NON AF [place] 52 mL/min/1.73m2 Critically low >=60 [facility] Comment on above: Performed By: #### B LDCX2 #### [facility] [address] [address] [address] Luis Alberto Olivia Globulin (S) [Mass/Vol] 2.7 g/dL Normal [facility] Comment on above: Performed By: #### B LDCX2 #### [facility] [address] [address] [address] Luis Alberto Olivia Glucose [Mass/Vol] 109 mg/dL Critically high 74-106 [facility] Comment on above: Performed By: #### B LDCX2 #### [facility] [address] [address] [address] Luis Alberto Olivia Potassium [Moles/Vol] 3.4 mmol/L Critically low 3.5-5.1 [facility] Comment on above: Performed By: #### B LDCX2 #### [facility] [address] [address] [address] Luis Alberto Olivia Protein [Mass/Vol] 5.3 g/dL Critically low 6.4-8.2 [facility] Comment on above: Performed By: #### B LDCX2 #### [facility] [address] [address] [address] Luis Alberto Olivia Sodium [Moles/Vol] 136 mmol/L Normal 136-145 [facility] Comment on above: Performed By: #### B LDCX2 #### [facility] [address] [address] [address] Luis Alberto Olivia Urea nitrogen [Mass/Vol] 24.0 mg/dL Critically high 7.0-18.0 [facility] Comment on above: Performed By: #### B LDCX2 #### [facility] [address] [address] [address] Luis Alberto Olivia Urea nitrogen/Creatinine [Mass ratio] 18.0 mg/mg [facility] Comment on above: Performed By: #### B LDCX2 #### [facility] [address] [address] [address] Luis Alberto Olivia Albumin [Mass/Vol] 2.7 g/dL Critically low 3.4-5.0 [facility] Comment on above: Performed By: #### U RCX #### [facility] [address] [address] [address] Luis Alberto Olivia Albumin/Globulin [Mass ratio] 1.0 {ratio} Normal [facility] Comment on above: Performed By: #### U RCX #### [facility] [address] [address] [address] Luis Alberto Olivia ALP [Catalytic activity/Vol] 40 U/L Critically low 46-116 [facility] Comment on above: Performed By: #### U RCX #### [facility] [address] [address] [address] Luis Alberto Olivia ALT [Catalytic activity/Vol] 18 U/L Normal 16-63 [facility] Comment on above: Performed By: #### U RCX #### [facility] [address] [address] [address] Luis Alberto Olivia Anion gap [Moles/Vol] 9.7 mmol/L Normal [facility] Comment on above: Performed By: #### U RCX #### [facility] [address] [address] [address] Luis Alberto Olivia AST [Catalytic activity/Vol] 21 U/L Normal 15-37 [facility] Comment on above: Performed By: #### U RCX #### [facility] [address] [address] [address] Luis Alberto Olivia Bilirubin [Mass/Vol] 0.3 mg/dL Normal 0.2-1.0 [facility] Comment on above: Performed By: #### U RCX #### [facility] [address] [address] [address] Luis Alberto Olivia Calcium [Mass/Vol] 7.7 mg/dL Critically low 8.5-10.1 [facility] Comment on above: Performed By: #### U RCX #### [facility] [address] [place] [address] Dr. Luis Alberto Olivia Chloride [Moles/Vol] 102 mmol/L Normal 98-107 [facility] Comment on above: Performed By: #### U RCX #### [facility] [address] [address] [address] Luis Alberto Olivia CO2 [Moles/Vol] 26.8 mmol/L Normal 21.0-32.0 [facility] Comment on above: Performed By: #### U RCX #### [facility] [address] [address] [address] Luis Alberto Olivia Creatinine [Mass/Vol] 1.35 mg/dL Critically high 0.70-1.30 [facility] Comment on above: Performed By: #### U RCX #### [facility] [address] [address] [address] Luis Alberto Olivia EGFR-AF [place] >60 Normal >=60 [facility] Comment on above: Performed By: #### U RCX #### [facility] [address] [address] [address] Luis Alberto Olivia EGFR-NON AF [place] 52 mL/min/1.73m2 Critically low >=60 [facility] Comment on above: Performed By: #### U RCX #### [facility] [address] [address] [address] Luis Alberto Olivia Globulin (S) [Mass/Vol] 2.7 g/dL Normal [facility] Comment on above: Performed By: #### U RCX #### [facility] [address] [address] [address] Luis Alberto Olivia Glucose [Mass/Vol] 106 mg/dL Normal 74-106 [facility] Comment on above: Performed By: #### U RCX #### [facility] [address] [address] [address] Luis Alberto Olivia Potassium [Moles/Vol] 3.5 mmol/L Normal 3.5-5.1 [facility] Comment on above: Performed By: #### U RCX #### [facility] [address] [place] [address] Dr. Luis Alberto Olivia Protein [Mass/Vol] 5.4 g/dL Critically low 6.4-8.2 [facility] Comment on above: Performed By: #### U RCX #### [facility] [address] [address] [address] Luis Alberto Olivia Sodium [Moles/Vol] 135 mmol/L Critically low 136-145 [facility] Comment on above: Performed By: #### U RCX #### [facility] [address] [place] [address] Dr. Luis Alberto Olivia Urea nitrogen [Mass/Vol] 26.0 mg/dL Critically high 7.0-18.0 [facility] Comment on above: Performed By: #### U RCX #### [facility] [address] [address] [address] Luis Alberto Olivia Urea nitrogen/Creatinine [Mass ratio] 19.3 mg/mg Normal [facility] Comment on above: Performed By: #### U RCX #### [facility] [address] [address] [address] Luis Alberto Olivia URINE MICROSCOPIC ONLYon BACTERIA SMALL Abnormal NONE SEEN [facility] Comment on above: Performed By: #### Nathaniel KEEN #### [facility] [address] [place] [address] Dr. Luis Alberto Olivia Bacteria identified Cx Nom (U) INDICATED Normal [facility] Comment on above: Performed By: #### L IVER #### [facility] [address] [place] [address] Dr. Luis Alberto Olivia CAST NONE SEEN Normal NONE SEEN [facility] Comment on above: Performed By: #### L IVER #### [facility] [address] [place] [address] Dr. Luis Alberto Olivia Crystals LM Nom (Urine sed) NONE SEEN Normal NONE SEEN [facility] Comment on above: Performed By: #### L IVER #### [facility] [address] [place] [address] Dr. Luis Alberto Olivia Epithelial cells LM Ql (Urine sed) RARE Normal NONE SEEN /RARE [facility] Comment on above: Performed By: #### L IVER #### [facility] [address] [place] [address] Dr. Luis Alberto Olivia MUCOUS NONE SEEN Normal NONE SEEN [facility] Comment on above: Performed By: #### L IVER #### [facility] [address] [place] [address] Dr. Luis Alberto Olivia RBC 0-2 Normal 0-2 [facility] Comment on above: Performed By: #### L IVER #### [facility] [address] [place] [address] Dr. Luis Alberto Olivia WBC 10-20 Abnormal NONE SEEN [facility] Comment on above: Performed By: #### L IVER #### [facility] [address] [place] [address] Dr. Luis Alberto Olivia ABO RH RETYPEon 12-20-2021 ABO and Rh group Nom (Bld) DONE Normal [facility] Comment on above: Performed By: #### R ETYPE #### [facility] [address] [place] [address] Dr. Luis Alberto Olivia BNPon 12-20-2021 Natriuretic peptide B (Bld) [Mass/Vol] 1641.0 pg/mL Normal <=1,800.0 [facility] Comment on above: Performed By: #### R ETYPE #### [facility] [address] [address] [address] Luis Alberto Olivia CARDIAC ANGELI ADMITon 022 CK [Catalytic activity/Vol] 66 U/L Normal 39-308 [facility] Comment on above: Performed By: #### R ETYPE #### [facility] [address] [address] [address] Luis Alberto Olivia CK.MB [Mass/Vol] 1.06 ng/mL Normal <=3.60 [facility] Comment on above: Performed By: #### R ETYPE #### [facility] [address] [address] [address] Luis Alberto Olivia HSTROP 17.6 pg/mL Normal 4.0-76.1 [facility] Comment on above: Result Comment: CUT- OFF POINTS HAVE BEEN ESTABLISHED BASED ON THE FOURTH UNIVERSAL DEFINITIONS OF MYOCARDIAL INFARCTION. THE UPPER REFERENCE LIMIT (URL) OF TROPONIN, DEFINED THE 99TH PERCENTILE OF cTnI DISTRIBUTION IN A REFERENCE POPULATION, HAS BEEN CONFIRMED THE DECISION THRESHOLD FOR OK DIAGNOSIS. Performed By: #### R ETYPE #### [facility] [address] [place] [address] Dr. Luis Alberto Olivia YADIRA 91 ng/mL Normal 16-96 [facility] Comment on above: Performed By: #### R ETYPE #### [facility] [address] [place] [address] Dr. Luis Alberto Olivia CBC AUTO DIFFon 12-20-2021 BASO # 0.0 103/ul Normal 0.0-0.1 [facility] Comment on above: Performed By: #### L IVER #### [facility] [address] [address] [address] Luis Alberto Olivia Basophils/100 WBC (Bld) 0.3 % Normal 0.2-2.0 [facility] Comment on above: Performed By: #### L IVER #### [facility] [address] [place] [address] Dr. Luis Alberto Olivia EO # 0.1 103/ul Normal 0.0-0.7 [facility] Comment on above: Performed By: #### L IVER #### [facility] [address] [address] [address] Luis Alberto Olivia Eosinophils/100 WBC (Bld) 1.3 % Normal 0.9-7.0 [facility] Comment on above: Performed By: #### L IVER #### [facility] [address] [place] [address] Dr. Luis Alberto Olivia Erythrocyte distribution width (RBC) [Ratio] 18.7 % Critically high 11.0-15.0 [facility] Comment on above: Performed By: #### L IVER #### [facility] [address] [place] [address] Dr. Luis Alberto Olivia Hematocrit (Bld) [Volume fraction] 17.5 % Critically low 42.0-54.0 [facility] Comment on above: Performed By: #### L IVER #### [facility] [address] [place] [address] Dr. Luis Alberto Olivia Hemoglobin (Bld) [Mass/Vol] 5.3 g/dL Critically low 14.0-18.0 [facility] Comment on above: Performed By: #### L IVER #### [facility] [address] [place] [address] Dr. Luis Alberto Olivia IG # 0.06 10e3/ul Critically high 0.00-0.03 [facility] Comment on above: Performed By: #### L IVER #### [facility] [address] [place] [address] Dr. Luis Alberto Olivia IG % 0.9 % Critically high 0.0-0.[address] [facility] Comment on above: Performed By: #### L IVER #### [facility] [address] [place] [address] Dr. Luis Alberto Olivia LYMPH # 0.7 103/ul Critically low 1.2-3.8 [facility] Comment on above: Performed By: #### L IVER #### [facility] [address] [place] [address] Dr. Luis Alberto Olivia Lymphocytes/100 WBC (Bld) 10.1 % Critically low 20.5-60.0 [facility] Comment on above: Performed By: #### L IVER #### [facility] [address] [place] [address] Dr. Luis Alberto Olivia MANUAL DIFF REQ NO Normal [facility] Comment on above: Performed By: #### L IVER #### [facility] [address] [place] [address] Dr. Luis Alberto Olivia MCH (RBC) [Entitic mass] 31.5 pg Normal 25.9-34.0 [facility] Comment on above: Performed By: #### L IVER #### [facility] [address] [place] [address] Dr. Luis Alberto Olivia MCHC (RBC) [Mass/Vol] 30.3 g/dL Normal 29.9-35.2 [facility] Comment on above: Performed By: #### L IVER #### [facility] [address] [place] [address] Dr. Luis Alberto Olivia MCV (RBC) [Entitic vol] 104.2 fL Critically high 80.0-94.0 [facility] Comment on above: Performed By: #### L IVER #### [facility] [address] [place] [address] Dr. Luis Alberto Olivia MONO # 0.7 103/ul Normal 0.3-0.8 [facility] Comment on above: Performed By: #### L IVER #### [facility] [address] [place] [address] Dr. Luis Alberto Olivia Monocytes/100 WBC (Bld) 9.4 % Normal 1.7-12.0 [facility] Comment on above: Performed By: #### L IVER #### [facility] [address] [place] [address] Dr. Luis Alberto Olivia NEUT # 5.5 103/ul Normal 1.4-6.5 [facility] Comment on above: Performed By: #### L IVER #### [facility] [address] [place] [address] Dr. Luis Alberto Olivia Neutrophils/100 WBC (Bld) 78.0 % Critically high 43.0-75.0 [facility] Comment on above: Performed By: #### L IVER #### [facility] [address] [address] [address] Luis Alberto Olivia Platelet mean volume (Bld) [Entitic vol] 9.5 fL Normal 9.5-13.5 [facility] Comment on above: Performed By: #### L IVER #### [facility] [address] [place] [address] Dr. Luis Alberto Olivia PLT 245 103/ul Normal 150-450 [facility] Comment on above: Performed By: #### L IVER #### [facility] [address] [place] [address] Dr. Luis Alberto Olivia RBC 1.68 106/ul Critically low 4.70-6.[address] [facility] Comment on above: Performed By: #### L IVER #### [facility] [address] [place] [address] Dr. Luis Alberto Olivia WBC 7.0 103/ul Normal 4.0-11.0 [facility] Comment on above: Performed By: #### L IVER #### [facility] [address] [place] [address] Dr. Luis Alberto Olivia CULTURE BLOODon 12-20-2021 Microscopic examination of blood, culture Culture Observations: NO GROWTH AT 5 DAYS. Normal [facility] Comment on above: Performed By: #### B LDCX2 #### [facility] [address] [place] [address] Dr. Luis Alberto Olivia Microscopic examination of blood, culture Culture Observations: NO GROWTH AT 5 DAYS. Normal [facility] Comment on above: Performed By: #### B LDCX1 #### [facility] [address] [place] [address] Dr. Luis Alberto Olivia Covid-19 PCR ([facility])on 12-01 SARS-CoV-2 (COVID-19) RNA BOAZ+probe Ql (Unsp spec) Not detected Normal NOT DETECTED [facility] [facility] Comment on above: Result Comment: When [...] for this test is supported by the [place] of Health and Human Service's declaration that [...] used). Performed By: #### R ETYPE #### [facility] [address] [place] [address] Dr. Luis Alberto Olivia FERRITINon 12-20-2021 Ferritin [Mass/Vol] 46.0 ng/mL Normal 26.0-388.0 [facility] Comment on above: Performed By: #### R ETYPE #### [facility] [address] [place] [address] Dr. Luis Alberto Olivia IRONon 12-20-2021 Iron [Mass/Vol] 88.0 ug/dL Normal 65.0-175.0 [facility] Comment on above: Performed By: #### T RANSFR #### [facility] [address] [place] [address] Dr. Luis Alberto Olivia IRON AND TIBCon 12-20-2021 % SATURATION 22.4 % Normal [facility] Comment on above: Performed By: #### T RANSFR #### [facility] [address] [place] [address] Dr. Luis Alberto Olivia TIBC DIRECT 393.0 ug/dL Normal 250.0-450.[address] [facility] Comment on above: Performed By: #### T RANSFR #### [facility] [address] [place] [address] Dr. Luis Alberto Olivia LACTATE/LACTIC ACIDon 2021 Lactate [Moles/Vol] 0.9 mmol/L Normal 0.4-1.9 [facility] Comment on above: Performed By: #### T RANSFR #### [facility] [address] [place] [address] Dr. Luis Alberto Olivia Lactate [Moles/Vol] 2.0 mmol/L Critically high 0.4-1.9 [facility] Comment on above: Performed By: #### B [id number] #### [facility] [address] [place] [address] Dr. Luis Alberto Olivia LIVER PROFILEon 12-20-2021 Albumin [Mass/Vol] 2.7 g/dL Critically low 3.4-5.0 [facility] Comment on above: Performed By: #### L IVER #### [facility] [address] [place] [address] Dr. Lius Alberto Olivia Albumin/Globulin [Mass ratio] 0.9 {ratio} Normal [facility] Comment on above: Performed By: #### L IVER #### [facility] [address] [place] [address] Dr. Luis Alberto Olivia ALP [Catalytic activity/Vol] 42 U/L Critically low 46-116 [facility] Comment on above: Performed By: #### L IVER #### [facility] [address] [place] [address] Dr. Luis Alberto Olivia ALT [Catalytic activity/Vol] 19 U/L Normal 16-63 [facility] Comment on above: Performed By: #### L IVER #### [facility] [address] [place] [address] Dr. Luis Alberto Olivia AST [Catalytic activity/Vol] 26 U/L Normal 15-37 [facility] Comment on above: Performed By: #### L IVER #### [facility] [address] [place] [address] Dr. Luis Alberto Olivia BILI, CONJUGATED 0.1 mg/dL Normal 0.0-0.2 [facility] Comment on above: Performed By: #### L IVER #### [facility] [address] [place] [address] Dr. Luis Alberto Olivia Bilirubin [Mass/Vol] 0.4 mg/dL Normal 0.2-1.0 [facility] Comment on above: Performed By: #### L IVER #### [facility] [address] [place] [address] Dr. Luis Alberto Olivia Globulin (S) [Mass/Vol] 3.1 g/dL Normal [facility] Comment on above: Performed By: #### L IVER #### [facility] [address] [place] [address] Dr. Luis Alberto Olivia Protein [Mass/Vol] 5.8 g/dL Critically low 6.4-8.2 [facility] Comment on above: Performed By: #### L IVER #### [facility] [address] [place] [address] Dr. Luis Alberto Olivia OCC BLD IMMUNO SCREENon 12-01 OCCULT BLOOD Positive Abnormal NEGATIVE [facility] Comment on above: Performed By: #### B [id number] #### [facility] [address] [place] [address] Dr. Luis Alberto Olivia PROF CHEM 8 (BAS METB)on Anion gap [Moles/Vol] 15.0 mmol/L Normal [facility] Comment on above: Performed By: #### R ETYPE #### [facility] [address] [place] [address] Dr. Luis Alberto Olivia Calcium [Mass/Vol] 8.1 mg/dL Critically low 8.5-10.1 [facility] Comment on above: Performed By: #### R ETYPE #### [facility] [address] [place] [address] Dr. Luis Alberto Olivia Chloride [Moles/Vol] 101 mmol/L Normal 98-107 [facility] Comment on above: Performed By: #### R ETYPE #### [facility] [address] [place] [address] Dr. Luis Alberto Olivia CO2 [Moles/Vol] 23.6 mmol/L Normal 21.0-32.0 [facility] Comment on above: Performed By: #### R ETYPE #### [facility] [address] [address] [address] Luis Alberto Olivia Creatinine [Mass/Vol] 1.38 mg/dL Critically high 0.70-1.30 [facility] Comment on above: Performed By: #### R ETYPE #### [facility] [address] [address] [address] Luis Alberto Olivia EGFR-AF [place] >60 Normal >=60 [facility] Comment on above: Performed By: #### R ETYPE #### [facility] [address] [address] [address] Luis Alberto Olivia EGFR-NON AF [place] 50 mL/min/1.73m2 Critically low >=60 [facility] Comment on above: Performed By: #### R ETYPE #### [facility] [address] [address] [address] Luis Alberto Olivia Glucose [Mass/Vol] 106 mg/dL Normal 74-106 [facility] Comment on above: Performed By: #### R ETYPE #### [facility] [address] [address] [address] Luis Alberto Olivia Potassium [Moles/Vol] 3.6 mmol/L Normal 3.5-5.1 [facility] Comment on above: Performed By: #### R ETYPE #### [facility] [address] [address] [address] Luis Alberto Olivia Sodium [Moles/Vol] 136 mmol/L Normal 136-145 [facility] Comment on above: Performed By: #### R ETYPE #### [facility] [address] [address] [address] Luis Alberto Olivia Urea nitrogen [Mass/Vol] 26.0 mg/dL Critically high 7.0-18.0 [facility] Comment on above: Performed By: #### R ETYPE #### [facility] [address] [address] [address] Luis Alberto Olivia Urea nitrogen/Creatinine [Mass ratio] 18.8 mg/mg Normal [facility] Comment on above: Performed By: #### R ETYPE #### [facility] [address] [place] [address] Dr. Luis Alberto Olivia PROTIMEon 12-20-2021 INR Coag (PPP) [Relative time] 1.08 {INR} Normal [facility] Comment on above: Performed By: #### U RCX #### [facility] [address] [place] [address] Dr. Luis Alberto Olivia INR GUIDELINES SEE BELOW Normal [facility] Comment on above: Result Comment: KT RED INR: 2.0 - 3.0 CONDITIONS NOT LISTED BELOW 2.5 - 3.5 FOR PROSTHETIC HEART VALVE REPLACEMENT 2.5 - 3.5 RECURRENT THROMBOSIS Performed By: #### U RCX #### [facility] [address] [place] [address] Dr. Luis Alberto Olivia PT Coag (PPP) [Time] 11.6 s Normal 9.0-11.6 [facility] Comment on above: Performed By: #### U RCX #### [facility] [address] [place] [address] Dr. Luis Alberto Olivia PTTon 12-20-2021 aPTT Coag (Bld) [Time] 24.8 s Normal 22.3-36.2 [facility] Comment on above: Performed By: #### U RCX #### [facility] [address] [place] [address] Dr. Luis Alberto Olivia TYPE AND SCREENon 12-20-2021 TYPE AND SCREEN Negative Normal [facility] Comment on above: Performed By: #### T NS #### [facility] [address] [place] [address] Dr. Luis Alberto Olivia VIT B12 AND FOLATEon 022 Cobalamin (Vitamin B12) [Mass/Vol] 450.0 pg/mL Normal 193.0-986.0 [facility] Comment on above: Performed By: #### T RANSFR #### [facility] [address] [place] [address] Dr. Luis Alberto Olivia FOLATE 22.90 ng/mL Normal 8.60-58.90 [facility] Comment on above: Performed By: #### T RANSFR #### [facility] [address], [place] [address] Dr. Luis Alberto Olivia XR CHEST 1 [...] ESVIN ESTEVES Date: 2021-12-20 16:56 Normal [facility] CHEMISTRYOrdered By: SYSTEM SYSTEM on 11-05-2021 Albumin [...] 89.4 fL Normal 80.0 - 100.0 fL [facility] Platelet mean volume (Bld) [Entitic vol] 8.1 fL Normal 6.4 - 10.8 fL [facility] Platelets (Bld) [#/Vol] 307.0 E9/L Normal 150.0 - 500.0 E9/L [facility]eAutoSS RBC (Bld) [#/Vol] 4.1 E12/L Low 4.3 - 5.9 E12/L [facility] Sed Rate Automated 22 mm/h High 0 - 19 mm/hr [facility] WBC corrected for nucl RBC Auto (Bld) [#/Vol] 5.7 E9/L Normal 4.0 - 11.0 E9/L [facility] CULTURE URINEon 11-01-2021 CULTURE URINE Isolate 1 Klebsiella pneumoniae 30,000 cfu/ml of ORGANISM 1 Klebsiella pneumoniae ANTIBIOTIC M.I.C RX STATUS Ampicillin 16 R F Ampicillin/Sulbactam 4 S F Piperacillin/Tazobacta m 8 S F Cefazolin <=4 S F Ceftazidime <=1 S F Ceftriaxone <=1 S F Ertapenem <=0.5 S F Imipenem <=0.25 S F Amikacin <=2 S F Gentamicin <=1 S F Tobramycin <=1 S F Ciprofloxacin <=0.25 S F Levofloxacin <=0.12 S F Nitrofurantoin <=16 S F Trimethoprim/Sulfameth oxazole <=20 S F Normal [facility] Comment on above: Performed By: #### U RCX #### [facility] [address] [place] [address] Dr. Luis Alberto Olivia CBC AUTO DIFFon 10-30-2021 BASO # 0.0 103/ul Normal 0.0-0.1 [facility] Comment on above: Performed By: #### T RANSFR #### [facility] [address] [place] [address] Dr. Luis Alberto Olivia Basophils/100 WBC (Bld) 0.5 % Normal 0.2-2.0 [facility] Comment on above: Performed By: #### T RANSFR #### [facility] [address] [place] [address] Dr. Luis Alberto Olivia EO # 0.2 103/ul Normal 0.0-0.7 [facility] Comment on above: Performed By: #### T RANSFR #### [facility] [address] [place] [address] Dr. Luis Alberto Olivia Eosinophils/100 WBC (Bld) 2.8 % Normal 0.9-7.0 [facility] Comment on above: Performed By: #### T RANSFR #### [facility] [address] [place] [address] Dr. Luis Alberto Olivia Erythrocyte distribution width (RBC) [Ratio] 16.5 % Critically high 11.0-15.0 [facility] Comment on above: Performed By: #### T RANSFR #### [facility] [address] [place] [address] Dr. Luis Alberto Olivia Hematocrit (Bld) [Volume fraction] 36.5 % Critically low 42.0-54.0 [facility] Comment on above: Performed By: #### T RANSFR #### [facility] [address] [place] [address] Dr. Luis Alberto Olivia Hemoglobin (Bld) [Mass/Vol] 11.3 g/dL Critically low 14.0-18.0 [facility] Comment on above: Performed By: #### T RANSFR #### [facility] [address] [place] [address] Dr. Luis Alberto Olivia IG # 0.03 10e3/ul Normal 0.00-0.03 [facility] Comment on above: Performed By: #### T RANSFR #### [facility] [address] [place] [address] Dr. Luis Alberto Olivia IG % 0.5 % Normal 0.0-0.5 [facility] Comment on above: Performed By: #### T RANSFR #### [facility] [address] [place] [address] Dr. Luis Alberto Olivia LYMPH # 1.0 103/ul Critically low 1.2-3.8 [facility] Comment on above: Performed By: #### T RANSFR #### [facility] [address] [place] [address] Dr. Luis Alberto Olivia Lymphocytes/100 WBC (Bld) 16.0 % Critically low 20.5-60.0 [facility] Comment on above: Performed By: #### T RANSFR #### [facility] [address] [place] [address] Dr. Luis Alberto Olivia MANUAL DIFF REQ NO Normal [facility] Comment on above: Performed By: #### T RANSFR #### [facility] [address] [place] [address] Dr. Luis Alberto Olivia MCH (RBC) [Entitic mass] 28.4 pg Normal 25.9-34.0 [facility] Comment on above: Performed By: #### T RANSFR #### [facility] [address] [place] [address] Dr. Luis Alberto Olivia MCHC (RBC) [Mass/Vol] 31.0 g/dL Normal 29.9-35.2 [facility] Comment on above: Performed By: #### T RANSFR #### [facility] [address] [place] [address] Dr. Luis Alberto Olivia MCV (RBC) [Entitic vol] 91.7 fL Normal 80.0-94.0 [facility] Comment on above: Performed By: #### T RANSFR #### [facility] [address] [place] [address] Dr. Luis Alberto Olivia MONO # 0.6 103/ul Normal 0.3-0.8 [facility] Comment on above: Performed By: #### T RANSFR #### [facility] [address] [place] [address] Dr. Luis Alberto Olivia Monocytes/100 WBC (Bld) 9.8 % Normal 1.7-12.0 [facility] Comment on above: Performed By: #### T RANSFR #### [facility] [address] [place] [address] Dr. Luis Alberto Olivia NEUT # 4.2 103/ul Normal 1.4-6.5 [facility] Comment on above: Performed By: #### T RANSFR #### [facility] [address] [place] [address] Dr. Luis Alberto Olivia Neutrophils/100 WBC (Bld) 70.4 % Normal 43.0-75.0 [facility] Comment on above: Performed By: #### T RANSFR #### [facility] [address] [place] [address] Dr. Luis Alberto Olivia Platelet mean volume (Bld) [Entitic vol] 9.4 fL Critically low 9.5-13.5 [facility] Comment on above: Performed By: #### T RANSFR #### [facility] [address] [place] [address] Dr. Luis Alberto Olivia PLT 264 103/ul Normal 150-450 [facility] Comment on above: Performed By: #### T RANSFR #### [facility] [address] [place] [address] Dr. Luis Alberto Olivia RBC 3.98 106/ul Critically low 4.70-6.[address] [facility] Comment on above: Performed By: #### T RANSFR #### [facility] [address] [place] [address] Dr. Luis Alberto Olivia WBC 6.0 103/ul Normal 4.0-11.0 [facility] Comment on above: Performed By: #### T RANSFR #### [facility] [address] [place] [address] Dr[address] ABD/PELVIS WO [...] MATTHEW ANN Date: 2021-10-30 14:48 Normal [facility] ER URINE PROFILEon 2 Bilirubin Ql (U) Negative Normal NEGATIVE [facility] Comment on above: Performed By: #### L IVER #### [facility] [address] [place] [address] Dr. Luis Alberto Olivia Clarity (U) CLEAR Normal CLEAR [facility] Comment on above: Performed By: #### L IVER #### [facility] [address] [place] [address] Dr. Luis Albreto Olivia Color (U) LT. YELLOW Normal YELLOW [facility] Comment on above: Performed By: #### L IVER #### [facility] [address] [place] [address] Dr. Luis Alberto Olivia ERUAHTamar A micrscopic examination will be performed if indicated. Normal [facility] Comment on above: Performed By: #### L IVER #### [facility] [address] [place] [address] Dr. Luis Alberto Olivia Glucose Ql (U) Negative Normal NEGATIVE [facility] Comment on above: Performed By: #### L IVER #### [facility] [address] [place] [address] Dr. Luis Alberto Olivia Hemoglobin Ql (U) TRACE-INTACT Abnormal NEGATIVE [facility] Comment on above: Performed By: #### L IVER #### [facility] [address] [place] [address] Dr. Luis Alberto Olivia Ketones Ql (U) Negative Normal NEGATIVE [facility] Comment on above: Performed By: #### L IVER #### [facility] [address] [place] [address] Dr. Luis Alberto Olivia LEUKOCYTES LARGE Abnormal NEGATIVE [facility] Comment on above: Performed By: #### L IVER #### [facility] [address] [place] [address] Dr. Luis Alberto Olivia Nitrite Ql (U) Negative Normal NEGATIVE [facility] Comment on above: Performed By: #### L IVER #### [facility] [address] [place] [address] Dr. Luis Alberto Olivia pH (U) 7.0 [pH] Normal 5-9 [facility] Comment on above: Performed By: #### L IVER #### [facility] [address] [place] [address] Dr. Luis Alberto Olivia SPEC GRAVITY 1.010 Normal 1.005-<=1.02 5 [facility] Comment on above: Performed By: #### L IVER #### [facility] [address] [place] [address] Dr. Luis Alberto Olivia UA PROTEIN Negative Normal NEGATIVE/ TRACE [facility] Comment on above: Performed By: #### L IVER #### [facility] [address] [place] [address] Dr. Luis Alberto Olivia UR MICRO IND INDICATED Normal [facility] Comment on above: Performed By: #### L IVER #### [facility] [address] [place] [address] Dr. Luis Alberto Olivia Urobilinogen Qn (U) 0.2 {Srini'U}/dL Normal 0.2 - 1. 0 [facility] Comment on above: Performed By: #### L IVER #### [facility] [address] [place] [address] Dr. Luis Alberto Olivia LACTATE/LACTIC ACIDon 2021 Lactate [Moles/Vol] 0.9 mmol/L Normal 0.4-1.9 [facility] Comment on above: Performed By: #### R ETYPE #### [facility] [address] [place] [address] Dr. Luis Alberto Olivia LIPASEon 10-30-2021 Lipase [Catalytic activity/Vol] 176.0 U/L Normal 73.0-393.0 [facility] Comment on above: Performed By: #### L IVER #### [facility] [address] [place] [address] Dr. Luis Alberto Olivia PROF 14(COMP METB)on 022 Albumin [Mass/Vol] 3.4 g/dL Normal 3.4-5.0 [facility] Comment on above: Performed By: #### L IVER #### [facility] [address] [place] [address] Dr. Luis Alberto Olivia Albumin/Globulin [Mass ratio] 0.9 {ratio} Normal [facility] Comment on above: Performed By: #### L IVER #### [facility] [address] [place] [address] Dr. Luis Alberto Olivia ALP [Catalytic activity/Vol] 64 U/L Normal 46-116 [facility] Comment on above: Performed By: #### L IVER #### [facility] [address] [place] [address] Dr. Luis Alberto Olivia ALT [Catalytic activity/Vol] 22 U/L Normal 16-63 [facility] Comment on above: Performed By: #### L IVER #### [facility] [address] [place] [address] Dr. Luis Alberto Olivia Anion gap [Moles/Vol] 12.4 mmol/L Normal [facility] Comment on above: Performed By: #### L IVER #### [facility] [address] [place] [address] Dr. Luis Alberto Olivia AST [Catalytic activity/Vol] 16 U/L Normal 15-37 [facility] Comment on above: Performed By: #### L IVER #### [facility] [address] [place] [address] Dr. Luis Alberto Olivia Bilirubin [Mass/Vol] 0.7 mg/dL Normal 0.2-1.0 [facility] Comment on above: Performed By: #### L IVER #### [facility] [address] [place] [address] Dr. Luis Alberto Olivia Calcium [Mass/Vol] 9.4 mg/dL Normal 8.5-10.1 [facility] Comment on above: Performed By: #### L IVER #### [facility] [address] [place] [address] Dr. Luis Alberto Olivia Chloride [Moles/Vol] 101 mmol/L Normal 98-107 [facility] Comment on above: Performed By: #### L IVER #### [facility] [address] [address] [address] Luis Alberto Olivia CO2 [Moles/Vol] 29.3 mmol/L Normal 21.0-32.0 [facility] Comment on above: Performed By: #### L IVER #### [facility] [address] [address] [address] Luis Alberto Olivia Creatinine [Mass/Vol] 1.22 mg/dL Normal 0.70-1.30 [facility] Comment on above: Performed By: #### L IVER #### [facility] [address] [place] [address] Dr. Luis Alberto Olivia EGFR-AF [place] >60 Normal >=60 [facility] Comment on above: Performed By: #### L IVER #### [facility] [address] [place] [address] Dr. Luis Alberto Olivia EGFR-NON AF [place] 58 mL/min/1.73m2 Critically low >=60 [facility] Comment on above: Performed By: #### L IVER #### [facility] [address] [place] [address] Dr. Luis Alberto Olivia Globulin (S) [Mass/Vol] 4.0 g/dL Normal [facility] Comment on above: Performed By: #### L IVER #### [facility] [address] [address] [address] Luis Alberto Olivia Glucose [Mass/Vol] 107 mg/dL Critically high 74-106 [facility] Comment on above: Performed By: #### L IVER #### [facility] [address] [address] [address] Luis Alberto Olivia Potassium [Moles/Vol] 3.7 mmol/L Normal 3.5-5.1 [facility] Comment on above: Performed By: #### L IVER #### [facility] [address] [address] [address] Luis Alberto Olivia Protein [Mass/Vol] 7.4 g/dL Normal 6.4-8.2 [facility] Comment on above: Performed By: #### L IVER #### [facility] [address] [place] [address] Dr. Luis Alberto Olivia Sodium [Moles/Vol] 139 mmol/L Normal 136-145 [facility] Comment on above: Performed By: #### L IVER #### [facility] [address] [place] [address] Dr. Luis Alberto Olivia Urea nitrogen [Mass/Vol] 15.0 mg/dL Normal 7.0-18.0 [facility] Comment on above: Performed By: #### L IVER #### [facility] [address] [place] [address] Dr. Luis Alberto Olivia Urea nitrogen/Creatinine [Mass ratio] 12.3 mg/mg Normal [facility] Comment on above: Performed By: #### L IVER #### [facility] [address] [place] [address] Dr. Lui sAlberto Olivia URINE MICROSCOPIC ONLYon BACTERIA TRACE Abnormal NONE SEEN [facility] Comment on above: Performed By: #### T RANSFR #### [facility] [address] [place] [address] Dr. Luis Alberto Olivia Bacteria identified Cx Nom (U) INDICATED Normal [facility] Comment on above: Performed By: #### T RANSFR #### [facility] [address] [place] [address] Dr. Luis Alberto Olivia CAST NONE SEEN Normal NONE SEEN [facility] Comment on above: Performed By: #### T RANSFR #### [facility] [address] [place] [address] Dr. Luis Alberto Olivia Crystals LM Nom (Urine sed) NONE SEEN Normal NONE SEEN [facility] Comment on above: Performed By: #### T RANSFR #### [facility] [address] [place] [address] Dr. Luis Alberto Olivia Epithelial cells LM Ql (Urine sed) RARE Normal NONE SEEN /RARE [facility] Comment on above: Performed By: #### T RANSFR #### [facility] [address] [place] [address] Dr. Luis Alberto Olivia MUCOUS NONE SEEN Normal NONE SEEN [facility] Comment on above: Performed By: #### T RANSFR #### [facility] [address] [place] [address] Dr. Luis Alberto Olivia RBC 2-5 Abnormal 0-2 [facility] Comment on above: Performed By: #### T RANSFR #### [facility] [address] [place] [address] Dr. Luis Alberto Olivia WBC 20-50 Abnormal NONE SEEN [facility] Comment on above: Performed By: #### T RANSFR #### [facility] Laboratory [address] [place] [address] Dr. Luis Alberto [facility] Testing Ordered By: Nulu DomainUser on 05-08-2021 SARS-CoV-2 (COVID-19) RNA BOAZ+probe Ql (Resp) Not detected Invalid Interpretation Code Not Detected [facility] [employer] Comment on above: Result Comment: This nucleic acid amplification test was developed and its performance characteristics determined by [employer] Nucleic acid amplification tests include RT-PCR and [...] detected) result in this assay. Performed at: [address] [id number] PhD Andres DIOR [facility] 04-09-2021 [facility] [place] Department of Radiology [address] [place] [id number] ======== Patient Name: IRENA PERAZA : 1945 Sex: M Age: Race: White Pt. 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 COMPARISON: [...] arthritis. Osteopenia, no fracture. Electronically signed: Trung Bean. Transcribed by: [email or web address], User Resident: Electronically Signed by: TRUNG BEAN @ 04/10/2021 02:55 PM Normal [facility] [place] Comment on above: Order Comment: evalu ate KNEE RIGHT 3 Son 1 KNEE RIGHT 3 S [facility] Department of Radiology [address] [place] [id number] ======== Patient Name: IRENA PERAZA : 1945 Sex: M Age: Race: White Pt. 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 COMPARISON: 03/14/2020, 03/16/2019. IMPRESSION: 1. 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 No aggressive features. 2. Osteopenia, no fracture or malalignment. Degenerative changes, complete patellofemoral joint space loss. Electronically signed: Trung Bean. 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 No dislocation, acute fracture or osteolysis. Acromioplasty and partial distal clavicle resection.IMPRESSION: Stable reverse right total shoulder arthroplasty.Transcrip tionist: PSCB Transcribe Date/Time: Oct 11 2017 3:16PDictated by : Kwaku RESTREPO examination was interpreted and the report reviewed and electronically signed by: Sidra CHAPPELL MD on Oct 11 2017 3:17PM [id number] XR SHLDR >/=3V AP/FAISAL AP/OTH R [...] is seen.IMPRESSION: Stable postsurgical changes without interval complication.Transcrip tionist: PSCB Transcribe Date/Time: Mar 22 2017 12:18PDictated by : Kwaku STROUD examination was interpreted and the report reviewed and electronically signed by: MONIK ESPOSITO MD on Mar 22 2017 12:19PM [id number] [facility] XR SHLDR >/=3V AP/FAISAL AP/OTH R RTon 03-22-2017 XR SHLDR >/=3V AP/FAISLA AP/OTHR RT * * *Final Report* * [...] is seen.IMPRESSION: Stable postsurgical changes without interval complication.Transcrip tionist: PSCB Transcribe Date/Time: Mar 22 2017 12:18PDictated by : Kwaku STROUD examination was interpreted and the report reviewed and electronically signed by: MONIK ESPOSITO MD on Mar 22 2017 12:19PM [id number] [facility] XR SHOULDER M2V UNIon 2016 XR [...] resection is unchanged.IMPRESSION: Postsurgical changes without interval complication.Transcrip tionist: PSCB Transcribe Date/Time: Nov 09 2016 3:37PDictated by : Kwaku RODRIGUEZ examination was interpreted and the report reviewed and electronically signed by: PATRICIA LE MD on Nov 09 2016 3:39PM [facility] Vital Signs Date Time Vital Sign Value Performing Clinician Faci lity 10-19-2024 15:28-0400 Body height 177.8 cm Teresa Goldberg HOP SORTER.C TRAIN BRAKE OPERATOR Work Phone: [facility] 10-19-2024 15:28-0400 Body mass index (BMI) [Ratio] 29.56 kg/m2 Teresa Goldberg HOP SORTER.CASHIERS SUPERVISOR Work Phone: [facility] 10-19-2024 15:28-0400 Body weight 93.44 kg Teresa Goldberg HOP SORTER.C TRAIN BRAKE OPERATOR Work Phone: [facility] 10-19-2024 15:28-0400 Diastolic blood pressure 60 mm[Hg] Teresa Goldberg HOP SORTER.CASHIERS SUPERVISOR Work Phone: [facility] 10-19-2024 15:28-0400 Heart rate 82 /min Teresa Goldberg HOP SORTER.C TRAIN BRAKE OPERATOR Work Phone: [facility] 10-19-2024 15:28-0400 SaO2% (BldA) [Mass fraction] 96 % Teresa Goldberg HOP SORTER.CASHIERS SUPERVISOR Work Phone: [facility] 10-19-2024 15:28-0400 Systolic blood pressure 118 mm[Hg] Teresa Goldberg HOP SORTER.CASHIERS SUPERVISOR Work Phone: [facility] 08-29-2024 11:20-0400 Body height 172.7 cm Haris Sutton DPM FACFA S Work Phone: [facility] 08-29-2024 11:20-0400 Body mass index (BMI) [Ratio] 32.84 kg/m2 Haris Sutton DPM FACFAS Work Phone: [facility] 08-29-2024 11:20-0400 Body weight 97.98 kg Haris Sutton DPM FACFA S Work Phone: [facility] 08-29-2024 11:20-0400 Diastolic blood pressure 74 mm[Hg] Haris Sutton DPM FACFAS Work Phone: [facility] 08-29-2024 11:20-0400 Heart rate 75 /min Haris Sutton DPM FACFA S Work Phone: [facility] 08-29-2024 11:20-0400 Systolic blood pressure 138 mm[Hg] Haris Sutton JADENMaira FACFAS Work Phone: [facility] 08-23-2024 11:56-0400 Body temperature 97.7 [degF] [facility] 08-23-2024 11:56-0400 Diastolic blood pressure 70 mm[Hg] [facility] 08-23-2024 11:56-0400 Heart rate 70 /min [facility] 08-23-2024 11:56-0400 Mean blood pressure 86 mm[Hg] [facility] 08-23-2024 11:56-0400 Respiratory rate 16 /min [facility] 08-23-2024 11:56-0400 SaO2% (BldA) [Mass fraction] 98 % [facility] 08-23-2024 11:56-0400 Systolic blood pressure 118 mm[Hg] [facility] 08-15-2024 13:55-0400 Body height 172.7 cm Adilene Lowe PA Work Phone: [facility] 08-15-2024 13:55-0400 Body mass index (BMI) [Ratio] 32.84 kg/m2 Adilene Lowe PA Work Phone: [facility] 08-15-2024 13:55-0400 Body weight 97.98 kg Adilene Lowe PA Work Phone: [facility] 08-15-2024 13:55-0400 Diastolic blood pressure 70 mm[Hg] Adilene Lowe PA Work Phone: [facility] 08-15-2024 13:55-0400 Systolic blood pressure 148 mm[Hg] Adilene Lowe PA Work Phone: [facility] 07-17-2024 13:57-0400 Body height 177.8 cm Angeli Au MD Work Phone: [facility] 07-17-2024 13:57-0400 Body mass index (BMI) [Ratio] 30.78 kg/m2 Angeli Au MD Work Phone: [facility] 07-17-2024 13:57-0400 Body weight 97.3 kg Angeli Au MD Work Phone: [facility] 07-17-2024 13:57-0400 Diastolic blood pressure 66 mm[Hg] Angeli Au MD Work Phone: [facility] 07-17-2024 13:57-0400 Heart rate 84 /min Angeli Au MD Work Phone: [facility] 07-17-2024 13:57-0400 SaO2% (BldA) [Mass fraction] 97 % Angeli Au MD Work Phone: [facility] 07-17-2024 13:57-0400 Systolic blood pressure 122 mm[Hg] Angeli Au MD Work Phone: [facility] 07-06-2024 12:58-0500 Body height 177.8 cm [facility] 07-06-2024 12:58-0500 Body mass index (BMI) [Ratio] 29.5 kg/m2 [facility] 07-06-2024 12:58-0500 Body temperature 98.2 [degF] [facility] 07-06-2024 12:58-0500 Body weight 93.44 kg [facility] 07-06-2024 12:58-0500 Diastolic blood pressure 56 mm[Hg] [facility] 07-06-2024 12:58-0500 Heart rate 76 /min [facility] 07-06-2024 12:58-0500 Respiratory rate 18 /min [facility] 07-06-2024 12:58-0500 SaO2% (BldA) [Mass fraction] 97 % [facility] 07-06-2024 12:58-0500 Systolic blood pressure 94 mm[Hg] [facility] 07-02-2024 16:35-0500 Body height 172.7 cm Haris Recinos Work Phone: [facility] 07-02-2024 16:35-0500 Body mass index (BMI) [Ratio] 32.69 kg/m2 Haris Dolce DPM FACFAS Work Phone: [facility] 07-02-2024 16:35-0500 Body weight 97.52 kg Haris Dolce DPM FACFA S Work Phone: [facility] 07-02-2024 16:35-0500 Diastolic blood pressure 76 mm[Hg] Haris Dolce DPM FACFAS Work Phone: [facility] 07-02-2024 16:35-0500 Heart rate 72 /min Haris Dolce DPM FACFA S Work Phone: [facility] 07-02-2024 16:35-0500 Systolic blood pressure 128 mm[Hg] Haris Dolce DPM FACFAS Work Phone: [facility] 06-19-2024 12:23-0500 Body height 172.7 cm Haris Dolce DPM FACFA S Work Phone: [facility] 06-19-2024 12:23-0500 Body mass index (BMI) [Ratio] 32.69 kg/m2 Haris Dolce DPM FACFAS Work Phone: [facility] 06-19-2024 12:23-0500 Body weight 97.52 kg Haris Dolce DPM FACFA S Work Phone: [facility] 06-19-2024 12:23-0500 Diastolic blood pressure 77 mm[Hg] Haris Dolce DPM FACFAS Work Phone: [facility] 06-19-2024 12:23-0500 Heart rate 68 /min Haris Dolce DPM FACFA S Work Phone: [facility] 06-19-2024 12:23-0500 Systolic blood pressure 132 mm[Hg] Haris Dolce DPM FACFAS Work Phone: [facility] 06-12-2024 09:56-0500 Body height 177.8 cm Alpa Ram DO Work Phone: [facility] 06-12-2024 09:56-0500 Body mass index (BMI) [Ratio] 29.7 kg/m2 Alpa Ram DO Work Phone: [facility] 06-12-2024 09:56-0500 Body temperature 98.01 [degF] Alpa Ram DO Work Phone: [facility] 06-12-2024 09:56-0500 Body weight 93.89 kg Alpa Ram DO Work Phone: [facility] 06-12-2024 09:56-0500 Diastolic blood pressure 75 mm[Hg] Alpa Ram DO Work Phone: [facility] 06-12-2024 09:56-0500 Heart rate 78 /min Alpa Ram DO Work Phone: [facility] 06-12-2024 09:56-0500 SaO2% (BldA) [Mass fraction] 99 % Alpa Ram DO Work Phone: [facility] 06-12-2024 09:56-0500 Systolic blood pressure 118 mm[Hg] Alpa Ram DO Work Phone: [facility] 06-11-2024 14:18-0500 Body height 172.7 cm Haris Sutton DPM FACFA S Work Phone: [facility] 06-11-2024 14:18-0500 Body mass index (BMI) [Ratio] 32.69 kg/m2 Haris Sutton DPM FACFAS Work Phone: [facility] 06-11-2024 14:18-0500 Body weight 97.52 kg Haris Sutton DPM FACFA S Work Phone: [facility] 06-11-2024 14:18-0500 Diastolic blood pressure 78 mm[Hg] Haris Sutton DPM FACFAS Work Phone: [facility] 06-11-2024 14:18-0500 Heart rate 66 /min Haris Sutton DPM FACFA S Work Phone: [facility] 06-11-2024 14:18-0500 Systolic blood pressure 130 mm[Hg] Haris Sutton JADENMaira CLEVELANDFAS Work Phone: [facility] 05-22-2024 13:58-0500 Blood Pressure Location Nghia ROBERSON [facility] 05-22-2024 13:58-0500 Diastolic blood pressure 82 mm[Hg] Nghia ROBERSON [facility] 05-22-2024 13:58-0500 Heart rate 92 /min Nghia ROBERSON [facility] 05-22-2024 13:58-0500 Respiratory rate 18 /min Nghia ROBERSON [facility] 05-22-2024 13:58-0500 Systolic blood pressure 133 mm[Hg] Nghia ROBERSON [facility] 05-11-2024 08:58-0500 Body mass index (BMI) [Ratio] 30.27 kg/m2 Moni Mandujano APRN.CNP Work Phone: [facility] 05-11-2024 08:58-0500 Body weight 95.7 kg Moni Mandujano APRN.CN P Work Phone: [facility] 04-12-2024 09:55-0500 Body height 177.8 cm Odalys Pino MD Work Phone: [facility] 04-12-2024 09:55-0500 Body mass index (BMI) [Ratio] 30.84 kg/m2 Odalys Pino MD Work Phone: [facility] 04-12-2024 09:55-0500 Body weight 97.5 kg Odalys Pino MD Work Phone: [facility] 04-12-2024 09:55-0500 Diastolic blood pressure 78 mm[Hg] Odalys Pino MD Work Phone: [facility] 04-12-2024 09:55-0500 Heart rate 86 /min Odalys Pino MD Work Phone: [facility] 04-12-2024 09:55-0500 Systolic blood pressure 118 mm[Hg] Odalys Pino MD Work Phone: [facility] 04-10-2024 11:29-0500 Body height 172.7 cm Haris Tracy DPM FACFA S Work Phone: [facility] 04-10-2024 11:29-0500 Body mass index (BMI) [Ratio] 32.69 kg/m2 Haris Tracy DPM FACFAS Work Phone: [facility] 04-10-2024 11:29-0500 Body weight 97.52 kg Haris Tracy DPM FACFA S Work Phone: [facility] 04-10-2024 11:29-0500 Diastolic blood pressure 77 mm[Hg] Haris Sutton DPM FACFAS Work Phone: [facility] 04-10-2024 11:29-0500 Heart rate 68 /min Haris Tracy DPM FACFA S Work Phone: [facility] 04-10-2024 11:29-0500 Systolic blood pressure 132 mm[Hg] Haris Tracy DPM FACFAS Work Phone: [facility] 02-12-2024 11:01-0400 Body temperature 99.68 [degF] Antony Blackburn [facility] 02-12-2024 11:01-0400 Diastolic blood pressure 78 mm[Hg] Antony Blackburn [facility] 02-12-2024 11:01-0400 Heart rate 115 /min Antony Blackburn [facility] 02-12-2024 11:01-0400 Respiratory rate 16 /min Antony Blackburn [facility] 02-12-2024 11:01-0400 SaO2% (BldA) [Mass fraction] 97 % Antony Blackburn [facility] 02-12-2024 11:01-0400 Systolic blood pressure 156 mm[Hg] Antony Blackburn [facility] 01-31-2024 12:07-0400 Body height 172.7 cm Adilene Lowe PA Work Phone: [facility] 01-31-2024 12:07-0400 Body mass index (BMI) [Ratio] 32.69 kg/m2 Adilene Lowe PA Work Phone: [facility] 01-31-2024 12:07-0400 Body weight 97.52 kg Adilene Lowe PA Work Phone: [facility] 01-31-2024 12:07-0400 Diastolic blood pressure 78 mm[Hg] Adilene Lowe PA Work Phone: [facility] 01-31-2024 12:07-0400 Systolic blood pressure 134 mm[Hg] Adilene Lowe PA Work Phone: [facility] 01-17-2024 11:59-0400 Body height 172.7 cm Haris Sutton DPM FACFA S Work Phone: [facility] 01-17-2024 11:59-0400 Body mass index (BMI) [Ratio] 33.3 kg/m2 Haris Daiglece DPM FACFAS Work Phone: [facility] 01-17-2024 11:59-0400 Body weight 99.34 kg Haris Sutton DPM FACFA S Work Phone: [facility] 01-17-2024 11:59-0400 Diastolic blood pressure 75 mm[Hg] Haris Dolce DPM FACFAS Work Phone: [facility] 01-17-2024 11:59-0400 Heart rate 70 /min Haris Sutton DPM FACFA S Work Phone: [facility] 01-17-2024 11:59-0400 Systolic blood pressure 126 mm[Hg] Haris Daiglece DPM FACFAS Work Phone: [facility] 11-17-2023 15:55-0400 Body height 177.8 cm Kaylah Kemp MD Work Phone: [facility] 11-17-2023 15:55-0400 Body mass index (BMI) [Ratio] 30.85 kg/m2 Kaylah Kemp MD Work Phone: [facility] 11-17-2023 15:55-0400 Body weight 97.52 kg Kaylah Kemp MD Work Phone: [facility] 11-17-2023 15:55-0400 Diastolic blood pressure 75 mm[Hg] Kaylah Kemp MD Work Phone: [facility] 11-17-2023 15:55-0400 Heart rate 70 /min Kaylah Kemp MD Work Phone: [facility] 11-17-2023 15:55-0400 Systolic blood pressure 127 mm[Hg] Kaylah Kemp MD Work Phone: [facility] 11-17-2023 15:10-0400 Diastolic blood pressure 80 mm[Hg] [facility] 11-17-2023 15:10-0400 Heart rate 69 /min [facility] 11-17-2023 15:10-0400 SaO2% (BldA) [Mass fraction] 95 % [facility] 11-17-2023 15:10-0400 Systolic blood pressure 136 mm[Hg] [facility] 11-17-2023 14:51-0400 Respiratory rate 23 /min [facility] 11-17-2023 13:56-0400 Body temperature 97.7 [degF] [facility] 11-11-2023 11:37-0400 Diastolic blood pressure 89 mm[Hg] Alpa Ram DO Work Phone: [facility] 11-11-2023 11:37-0400 Systolic blood pressure 138 mm[Hg] Alpa Ram DO Work Phone: [facility] 11-11-2023 10:31-0400 Body height 177.8 cm Alpa Ram DO Work Phone: [facility] 11-11-2023 10:31-0400 Body mass index (BMI) [Ratio] 30.91 kg/m2 Alpa Ram DO Work Phone: [facility] 11-11-2023 10:31-0400 Body temperature 97.7 [degF] Alpa Ram DO Work Phone: [facility] 11-11-2023 10:31-0400 Body weight 97.7 kg Alpa Ram DO Work Phone: [facility] 11-11-2023 10:31-0400 Heart rate 72 /min Alpa Ram DO Work Phone: [facility] 11-11-2023 10:31-0400 SaO2% (BldA) [Mass fraction] 97 % Alpa Ram DO Work Phone: [facility] 11-01-2023 10:14-0400 Blood Pressure Location [employer] [facility] 11-01-2023 10:14-0400 Body temperature 97.88 [degF] Nghia Melodigram [facility] 11-01-2023 10:14-0400 Diastolic blood pressure 76 mm[Hg] Nghia Melodigram [facility] 11-01-2023 10:14-0400 Heart rate 74 /min [employer] [facility] 11-01-2023 10:14-0400 Respiratory rate 16 /min [employer] [facility] 11-01-2023 10:14-0400 SaO2% (BldA) [Mass fraction] 94 % [employer] [facility] 11-01-2023 10:14-0400 Systolic blood pressure 122 mm[Hg] Nghia ROBERSON [facility] 09-06-2023 14:00-0400 Blood Pressure Location [facility] 09-06-2023 14:00-0400 Body temperature 98.24 [degF] [facility]-06-[facility] 14:00-0400 Diastolic blood pressure 78 mm[Hg] [facility] 09-06-2023 14:00-0400 Heart rate 92 /min [facility] 09-06-2023 14:00-0400 SaO2% (BldA) [Mass fraction] 96 % [facility] 09-06-2023 14:00-0400 Systolic blood pressure 158 mm[Hg] [facility]-29-[facility] 10:08-0400 Body mass index (BMI) [Ratio] 30.18 kg/m2 Alpa Ram DO Work Phone: [facility] 08-29-2023 10:08-0400 Body weight 95.4 kg Alpa Ram DO Work Phone: [facility] 08-29-2023 10:08-0400 Diastolic blood pressure 56 mm[Hg] Alpa Tobinis DO Work Phone: [facility] 08-29-2023 10:08-0400 Heart rate 84 /min Alpa Tobinis DO Work Phone: [facility] 08-29-2023 10:08-0400 Systolic blood pressure 120 mm[Hg] Alpa Tobinis DO Work Phone: [facility] 08-24-2023 13:53-0400 Body temperature 97.7 [degF] [facility] 08-24-2023 13:53-0400 Diastolic blood pressure 91 mm[Hg] Jevon Pantoja [facility] 08-24-2023 13:53-0400 Heart rate 87 /min Jevon Pantoja [facility] 08-24-2023 13:53-0400 Mean blood pressure 115 mm[Hg] Jevon Pantoja [facility] 08-24-2023 13:53-0400 Respiratory rate 16 /min Jevon Pantoja [facility] 08-24-2023 13:53-0400 SaO2% (BldA) [Mass fraction] 98 % Jevon Pantoja [facility] 08-24-2023 13:53-0400 Systolic blood pressure 164 mm[Hg] Jevon Pantoja [facility] 08-15-2023 14:42-0400 Body weight 95.5 kg Odalys Pino MD Work Phone: [facility] 08-15-2023 14:42-0400 Diastolic blood pressure 60 mm[Hg] Odalys Pino MD Work Phone: [facility] 08-15-2023 14:42-0400 Heart rate 82 /min Odalys Pino MD Work Phone: [facility] 08-15-2023 14:42-0400 SaO2% (BldA) [Mass fraction] 98 % Odalys Pino MD Work Phone: [facility] 08-15-2023 14:42-0400 Systolic blood pressure 136 mm[Hg] Odalys Pino MD Work Phone: [facility] 07-18-2023 10:26-0400 Body height 177.8 cm Angeli Au MD Work Phone: [facility] 07-18-2023 10:26-0400 Body weight 96.7 kg Angeli Au MD Work Phone: [facility] 07-18-2023 10:26-0400 Diastolic blood pressure 84 mm[Hg] Angeli Au MD Work Phone: [facility] 07-18-2023 10:26-0400 Heart rate 120 /min Angeli Au MD Work Phone: [facility] 07-18-2023 10:26-0400 Systolic blood pressure 150 mm[Hg] Angeli Au MD Work Phone: [facility] 06-24-2023 10:44-0500 Blood Pressure Location Moffett Sarmini [facility] 06-24-2023 10:44-0500 Diastolic blood pressure 80 mm[Hg] Moffett Sarmini [facility] 06-24-2023 10:44-0500 Heart rate 68 /min Moffett Sarmini [facility] 06-24-2023 10:44-0500 Respiratory rate 18 /min Moffett Sarmini [facility] 06-24-2023 10:44-0500 Systolic blood pressure 138 mm[Hg] Moffett Sarmini [facility] 06-22-2023 14:48-0500 Body height 177.8 cm Alpa Tobinis DO Work Phone: [facility] 06-22-2023 14:48-0500 Body temperature 99.1 [degF] Alpa Mendis DO Work Phone: [facility] 06-22-2023 14:48-0500 Body weight 94.8 kg Alpa Mendis DO Work Phone: [facility] 06-22-2023 14:48-0500 Diastolic blood pressure 66 mm[Hg] Alpa Mendis DO Work Phone: [facility] 06-22-2023 14:48-0500 Heart rate 102 /min Alpa Tobinis DO Work Phone: [facility] 06-22-2023 14:48-0500 SaO2% (BldA) [Mass fraction] 97 % Alpa Mendis DO Work Phone: [facility] 06-22-2023 14:48-0500 Systolic blood pressure 116 mm[Hg] Alpa Ram DO Work Phone: [facility] 06-20-2023 14:31-0500 Body height 177.8 cm Scarlett Gaviria Work Phone: [facility] 06-20-2023 14:31-0500 Body mass index (BMI) [Ratio] 29.7 kg/m2 Scarlett Everette Work Phone: [facility] 06-20-2023 14:31-0500 Body weight 93.89 kg Scarlett Gaviria Work Phone: [facility] 06-14-2023 11:50-0500 Body height 172.7 cm Haris Sutton DPM FACFA S Work Phone: [facility] 06-14-2023 11:50-0500 Body mass index (BMI) [Ratio] 33.3 kg/m2 Haris Daiglece DPM FACFAS Work Phone: [facility] 06-14-2023 11:50-0500 Body weight 99.34 kg Haris Dolce DPM FACFA S Work Phone: [facility] 06-14-2023 11:50-0500 Diastolic blood pressure 74 mm[Hg] Haris Sutton DPM FACFAS Work Phone: [facility] 06-14-2023 11:50-0500 Heart rate 72 /min Haris Daiglece DPM FACFA S Work Phone: [facility] 06-14-2023 11:50-0500 Systolic blood pressure 118 mm[Hg] Haris Daiglece DPM FACFAS Work Phone: [facility] 02-02-2023 14:40-0400 Blood Pressure Location Nghia ROBERSON [facility] 02-02-2023 14:40-0400 Diastolic blood pressure 77 mm[Hg] Nghia ROBERSON [facility] 02-02-2023 14:40-0400 Heart rate 73 /min Nghia ROBERSON [facility] 02-02-2023 14:40-0400 Systolic blood pressure 134 mm[Hg] Nghia ROBERSON [facility] 09-14-2022 15:19-0400 Body height 177.8 cm Kaylah Kemp MD Work Phone: [facility] 09-14-2022 15:19-0400 Body weight 92.99 kg Kaylah Kemp MD Work Phone: [facility] 09-14-2022 15:19-0400 Diastolic blood pressure 71 mm[Hg] Kaylah Kemp MD Work Phone: [facility] 09-14-2022 15:19-0400 Heart rate 70 /min Kaylah Kemp MD Work Phone: [facility] 09-14-2022 15:19-0400 Systolic blood pressure 139 mm[Hg] Kaylah Kemp MD Work Phone: [facility] 09-03-2022 12:51-0400 Blood Pressure Location [facility] 09-03-2022 12:51-0400 Body temperature 97.88 [degF] [facility] 09-03-2022 12:51-0400 Diastolic blood pressure 82 mm[Hg] [facility] 09-03-2022 12:51-0400 Heart rate 83 /min [facility] 09-03-2022 12:51-0400 Mean blood pressure 107 mm[Hg] [facility] 09-03-2022 12:51-0400 Respiratory rate 18 /min [facility] 09-03-2022 12:51-0400 SaO2% (BldA) [Mass fraction] 93 % [facility] 09-03-2022 12:51-0400 Systolic blood pressure 156 mm[Hg] Jevon Pantoja [facility] 08-19-2022 14:01-0400 Heart rate 83 /min Jevon Pantoja [facility] 08-19-2022 14:01-0400 SaO2% (BldA) [Mass fraction] 98 % Jevon Pantoja [facility] 08-19-2022 14:01-0400 Diastolic blood pressure 78 mm[Hg] Jevon Pantoja [facility] 08-19-2022 14:01-0400 Mean blood pressure 100 mm[Hg] Jevon Pantoja [facility] 08-19-2022 14:01-0400 Systolic blood pressure 144 mm[Hg] Jevonsamra Pantoja [facility] 08-19-2022 14:01-0400 Body temperature 97.88 [degF] [facility] 14:00-0400 Blood [facility] 14:00-0400 Respiratory rate 18 /min [facility] 14:23-0400 Diastolic blood pressure 74 mm[Hg] Good SALAM [facility] 07-15-2022 14:23-0400 Mean blood pressure 100 mm[Hg] Good SALAM [facility] 07-15-2022 14:23-0400 Systolic blood pressure 152 mm[Hg] Good SALAM [facility] 07-15-2022 14:16-0400 Blood Pressure Location Good SALAM [facility] 07-15-2022 14:16-0400 Diastolic blood pressure 86 mm[Hg] Good SALAM [facility] 07-15-2022 14:16-0400 Heart rate 85 /min Good SALAM [facility] 07-15-2022 14:16-0400 Respiratory rate 16 /min Good SALAM [facility] 07-15-2022 14:16-0400 Systolic blood pressure 152 mm[Hg] Good SALAM [facility] 05-18-2022 12:31-0500 Diastolic blood pressure 81 mm[Hg] Flory Maravilla MD Work Phone: [facility] 05-18-2022 12:31-0500 Systolic blood pressure 136 mm[Hg] Flory Maravilla MD Work Phone: [facility] 05-18-2022 12:28-0500 Body height 177.8 cm Flory cortez MD Work Phone: [facility] 05-18-2022 12:28-0500 Body weight 94.67 kg Flory cortez MD Work Phone: [facility] 05-18-2022 12:28-0500 Heart rate 83 /min Flory cortez MD Work Phone: [facility] 05-18-2022 12:28-0500 SaO2% (BldA) [Mass fraction] 97 % Flory Maravilla MD Work Phone: [facility] 04-13-2022 09:18-0500 Body height 177.8 cm Kaylah Kemp MD Work Phone: [facility] 04-13-2022 09:18-0500 Body weight 94.8 kg Kaylah Kemp MD Work Phone: [facility] 04-13-2022 09:18-0500 Diastolic blood pressure 94 mm[Hg] Kaylah Kemp MD Work Phone: [facility] 04-13-2022 09:18-0500 Heart rate 84 /min Kaylah Kemp MD Work Phone: [facility] 04-13-2022 09:18-0500 Systolic blood pressure 153 mm[Hg] Kaylah Kemp MD Work Phone: [facility] 02-18-2022 13:28-0400 Diastolic blood pressure 66 mm[Hg] [facility] 02-18-2022 13:28-0400 Heart rate 92 /min [facility] 02-18-2022 13:28-0400 Mean blood pressure 102 mm[Hg] [facility] 02-18-2022 13:28-0400 Systolic blood pressure 173 mm[Hg] [facility] 02-18-2022 13:22-0400 Blood Pressure Location [facility] 02-18-2022 13:22-0400 Body temperature 98.6 [degF] [facility] 02-18-2022 13:22-0400 BP/Pulse Patient Position [facility] 02-18-2022 13:22-0400 Diastolic blood pressure 96 mm[Hg] [facility] 02-18-2022 13:22-0400 Heart rate 81 /min [facility] 02-18-2022 13:22-0400 Mean blood pressure 121 mm[Hg] [facility] 02-18-2022 13:22-0400 Respiratory rate 17 /min [facility] 02-18-2022 13:22-0400 SaO2% (BldA) [Mass fraction] 98 % [facility] 02-18-2022 13:22-0400 Systolic blood pressure 171 mm[Hg] [facility] 01-08-2022 11:10-0400 Blood Pressure Location [facility] 01-08-2022 11:10-0400 Body temperature 98.24 [degF] Jevon Pantoja [facility] 01-08-2022 11:10-0400 Diastolic blood pressure 95 mm[Hg] Jevonsamra Pantoja [facility] 01-08-2022 11:10-0400 Heart rate 71 /min [facility] 01-08-2022 11:10-0400 Mean blood pressure 113 mm[Hg] [facility] 01-08-2022 11:10-0400 Respiratory rate 18 /min [facility] 01-08-2022 11:10-0400 SaO2% (BldA) [Mass fraction] 99 % [facility] 01-08-2022 11:10-0400 Systolic blood pressure 150 mm[Hg] [facility] 01-06-2022 13:13-0400 Body height 177.8 cm Odalys Pino MD Work Phone: [facility] 01-06-2022 13:13-0400 Body weight 96.07 kg Odalys Pino MD Work Phone: [facility] 01-06-2022 13:13-0400 Diastolic blood pressure 68 mm[Hg] Odalys Pino MD Work Phone: [facility] 01-06-2022 13:13-0400 Heart rate 70 /min Odalys Pino MD Work Phone: [facility] 01-06-2022 13:13-0400 Systolic blood pressure 124 mm[Hg] Odalys Pino MD Work Phone: [facility] 01-06-2022 09:11-0400 Blood Pressure Location Good SALAM [facility] 01-06-2022 09:11-0400 Diastolic blood pressure 78 mm[Hg] Good SALAM [facility] 01-06-2022 09:11-0400 Heart rate 70 /min Good SALAM [facility] 01-06-2022 09:11-0400 Respiratory rate 16 /min Florentino SANABRIA [facility] 01-06-2022 09:11-0400 Systolic blood pressure 124 mm[Hg] Florentino SANABRIA [facility] 12-24-2021 14:54-0400 Blood Pressure Location [facility] 12-24-2021 14:54-0400 Body temperature 98.06 [degF] [facility] 12-24-2021 14:54-0400 BP/Pulse Patient Position [facility] 12-24-2021 14:54-0400 Diastolic blood pressure 72 mm[Hg] [facility] 12-24-2021 14:54-0400 Heart rate 70 /min [facility] 12-24-2021 14:54-0400 Mean blood pressure 90 mm[Hg] [facility] 12-24-2021 14:54-0400 Respiratory rate 18 /min [facility] 12-24-2021 14:54-0400 SaO2% (BldA) [Mass fraction] 94 % [facility] 12-24-2021 14:54-0400 Systolic blood pressure 126 mm[Hg] [facility] 12-01-2021 10:18-0400 Diastolic blood pressure 82 mm[Hg] Patricia Le [facility] 12-01-2021 10:18-0400 Mean blood pressure 101 mm[Hg] Patricia Pruittmetz [facility] 12-01-2021 10:18-0400 Systolic blood pressure 138 mm[Hg] Patricia Le [facility] 12-01-2021 10:15-0400 Blood Pressure Location Patricia Le [facility] 12-01-2021 10:15-0400 Body temperature 97.7 [degF] Patricia Le [facility] 12-01-2021 10:15-0400 Diastolic blood pressure 90 mm[Hg] Patricia Le [facility] 12-01-2021 10:15-0400 Heart rate 74 /min Patricia Le [facility] 12-01-2021 10:15-0400 SaO2% (BldA) [Mass fraction] 95 % Patricia Le [facility] 12-01-2021 10:15-0400 Systolic blood pressure 147 mm[Hg] Patricia Le [facility] 11-05-2021 10:42-0400 Blood Pressure Location Jevon Pantoja [facility] 11-05-2021 10:42-0400 Body temperature 98.42 [degF] Jevon Pantoja [facility] 11-05-2021 10:42-0400 BP/Pulse Patient Position Jevon Pantoja [facility] 11-05-2021 10:42-0400 Diastolic blood pressure 65 mm[Hg] Jevon Pantoja [facility] 11-05-2021 10:42-0400 Heart rate 75 /min Jevon Pantoja [facility] 11-05-2021 10:42-0400 Mean blood pressure 90 mm[Hg] Jevon Pantoja [facility] 11-05-2021 10:42-0400 Respiratory rate 17 /min Jevon Pantoja [facility] 11-05-2021 10:42-0400 SaO2% (BldA) [Mass fraction] 96 % Jevon Pantoja [facility] 11-05-2021 10:42-0400 Systolic blood pressure 142 mm[Hg] Jevon Pantoja [facility] 11-05-2021 10:42-0400 Mean blood pressure 91 mm[Hg] Jevon Pantoja [facility] 07-27-2021 10:55-0400 Diastolic blood pressure 66 mm[Hg] Good SALAM [facility] 07-27-2021 10:55-0400 Heart rate 80 /min Good SALAM [facility] 07-27-2021 10:55-0400 Respiratory rate 23 /min Good SALAM [facility] 07-27-2021 10:55-0400 SaO2% (BldA) [Mass fraction] 98 % Good SALAM [facility] 07-27-2021 10:55-0400 Systolic blood pressure 109 mm[Hg] Good SALAM [facility] 07-27-2021 10:40-0400 Diastolic blood pressure 70 mm[Hg] Good SALAM [facility] 07-27-2021 10:40-0400 Heart rate 81 /min Good SALAM [facility] 07-27-2021 10:40-0400 Respiratory rate 20 /min Good SALAM [facility] 07-27-2021 10:40-0400 SaO2% (BldA) [Mass fraction] 97 % Good SALAM [facility] 07-27-2021 10:40-0400 Systolic blood pressure 116 mm[Hg] Good SALAM [facility] 07-27-2021 10:35-0400 Diastolic blood pressure 61 mm[Hg] Good SALAM [facility] 07-27-2021 10:35-0400 Heart rate 81 /min Good SALAM [facility] 07-27-2021 10:35-0400 Respiratory rate 12 /min Good SALAM [facility] 07-27-2021 10:35-0400 SaO2% (BldA) [Mass fraction] 96 % Good SALAM [facility] 07-27-2021 10:35-0400 Systolic blood pressure 117 mm[Hg] Good SALAM [facility] 07-27-2021 10:25-0400 Body temperature 97.52 [degF] Good SALAM [facility] 07-27-2021 10:00-0400 Blood Pressure Location Good SALAM [facility] 07-27-2021 10:00-0400 Body temperature 98.24 [degF] Good SALAM [facility] Encounters Encounter Date Encounter Type Care Provider Facility Start: 11-20-2024 ambulatory [facility]ia [facility] Start: 10-19-2024 End: 10-19-2024 Patient encounter procedure Teresa Goldberg APRN.CASHIERS SUPERVISOR Work Phone: Cardiology Comment on above: Current use of childcare attendant anticoagulation (Primary Dx); Persistent atrial fibrillation (HCC) Start: 10-19-2024 End: 10-19-2024 Patient encounter procedure [facility] Work Phone: Pulmonary Medicine Comment on above: Spirometry Start: 10-19-2024 End: 10-19-2024 ambulatory [place] HURTADO Facility:[facility] Start: 10-17-2024 End: 10-17-2024 ambulatory [place] BRYANT Facility:[facility] Start: 10-02-2024 End: 10-02-2024 Refill Moni Mandujano APRN.CASHIERS SUPERVISOR Work Phone: Cardiology Comment on above: Refill Request Start: 10-01-2024 End: 10-05-2024 Telephone encounter Alpa Lopez Estrella DO Work Phone: [facility] Comment on above: Post Injection [facility] Start: 09-27-2024 End: 09-27-2024 ambulatory [place] BRYANT Facility:[facility] Start: 09-25-2024 End: 09-25-2024 [facility] Start: 09-25-2024 End: 09-25-2024 Patient encounter procedure [facility] Start: 09-19-2024 End: 09-23-2024 ambulatory [place] HURTADO Facility:[facility] Start: 09-19-2024 End: 09-19-2024 Patient encounter procedure Alpa Lopez Mahadabhilash DO Work Phone: Spine Medicine Comment on above: No-show for appointm ent (Primary Dx) Start: 09-19-2024 End: 09-19-2024 Telemedicine consultation with patient Alpa Ram Work Phone: Spine Medicine Start: 09-19-2024 End: 09-19-2024 ambulatory [place] HURTADO Facility:[facility] Start: 09-10-2024 End: 09-13-2024 Telephone encounter Moustapha Melvin APRN.CASHIERS SUPERVISOR Work Phone: [facility] Provider Adult Comment on above: Appointment; Clinica l Update Start: 09-10-2024 End: 09-10-2024 ambulatory [place] BRYANT Facility:[facility] Start: 09-10-2024 End: 09-10-2024 Patient encounter procedure Eros Madrid MD Work Phone: Cardiology Comment on above: 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 (Primary Dx); Atrial fibrillation, persistent (HCC); LBBB (left bundle branch block); Coronary artery disease due to lipid rich plaque Start: 09-10-2024 End: 09-10-2024 Telemedicine consultation with patient Eros Madrid MD Work Phone: Cardiology Start: 09-07-2024 End: 09-07-2024 Patient encounter procedure Jeaneth Steele RN NURSE HAT AND CAP SEWER Comment on above: Clinical Update Clinical Symptoms Start: 09-07-2024 End: 09-07-2024 ambulatory Jeaneth Steele RN NURSE HAT AND CAP SEWER Start: 09-06-2024 End: 09-06-2024 Orders Only Alpa Ram DO Work Phone: Spine Medicine Comment on above: Lumbar spondylosis ( Primary Dx) Preperations for Pro cedure (Mychart) Start: 08-31-2024 End: 09-03-2024 ambulatory Alpa Ram DO Work Phone: Spine Medicine Comment on above: my back procedure on 08-28-24 Start: 08-29-2024 End: 08-29-2024 Bamboo flowsheet Haris Tamar Sutton DPM FACFAS Work Phone: [facility] Start: 08-29-2024 End: 08-29-2024 Bamboo flowsheet Haris Tamar Sutton DPM FACFAS Work Phone: [facility] Start: 08-29-2024 End: 08-29-2024 Patient encounter procedure Haris Tamar Sutton DPM FACFAS Work Phone: [facility] Comment on above: Onychomycosis (Prima ry Dx); Pain in left toe(s); Pain in right toe(s) Start: 08-29-2024 End: 08-29-2024 ambulatory HARIS SUTTON Not Available Start: 08-28-2024 End: 08-28-2024 ambulatory SCARLETT Armstrong GAVIRIA Facility:[facility] Start: 08-23-2024 End: 08-23-2024 ambulatory Jevon Pantoja Facility:[facility] Start: 08-23-2024 End: 08-23-2024 Patient encounter procedure Jevon Pantoja [facility] Start: 08-21-2024 End: 08-21-2024 ambulatory Jevon Pantoja Facility:[facility] Start: 08-21-2024 End: 08-21-2024 Patient encounter procedure Jevon Pantoja [facility] Start: 08-16-2024 End: 08-16-2024 Office outpatient visit 15 minutes Konrad Agustin MD Work Phone: [facility] Comment on above: Seborrheic keratosis (Primary Dx); Actinic keratosis; Seborrheic keratosis, inflamed; Neoplasm of unspecified behavior of bone, soft tissue, and skin; Lentigines; History of malignant melanoma of skin Start: 08-16-2024 End: 08-16-2024 ambulatory Moni Mandujano APRN.CASHIERS SUPERVISOR Work Phone: Cardiology Start: 08-16-2024 End: 08-16-2024 Bamboo flowsheet Konrad Agustin MD Work Phone: [facility] Start: 08-16-2024 End: 08-24-2024 Bamboo flowsheet Konrad Agustin MD Work Phone: [facility] Start: 08-16-2024 End: 08-24-2024 External Result Encounter Konrad Agustin MD Work Phone: [facility] External Department Unsolicited Start: 08-16-2024 End: 08-16-2024 Patient encounter procedure Moni Mandujano APRN.CASHIERS SUPERVISOR Work Phone: Cardiology Comment on above: i believe my heart i s back in Afib Start: 08-15-2024 End: 08-15-2024 Bamboo flowsheet Adilene Lozano PA Work Phone: [facility] Start: 08-15-2024 End: 08-15-2024 Bamboo flowsheet Adilene Lowshaila PA Work Phone: [facility] Start: 08-15-2024 End: 08-15-2024 Office outpatient visit 15 minutes Adilene Lozano PA Work Phone: [facility] Comment on above: Neck pain (Primary D x); Lumbar back pain; MICHELE (obstructive sleep apnea); Depression, unspecified depression type (CMS/[facility]ERLY [facility]) Start: 08-15-2024 End: 08-15-2024 Telephone encounter Angeli Au MD Work Phone: Cardiology Comment on above: message from patient Start: 08-15-2024 End: 08-15-2024 ambulatory ADILENE ROSEANNA Not Available Start: 08-14-2024 End: 08-15-2024 Telephone encounter Alpaestevan Ram DO Work Phone: [facility] Comment on above: Preperations for Pro cedure Call Start: 08-13-2024 End: 08-13-2024 Telephone encounter Alpa Jessica Ram DO Work Phone: [facility] Comment on above: Preperations for Pro cedure (Mychart) Start: 08-07-2024 End: 08-07-2024 Telephone encounter Moni Mandujano APRN.CASHIERS SUPERVISOR Work Phone: Cardiology Start: 07-30-2024 End: 07-30-2024 Telephone encounter Moni Mandujano APRN.CASHIERS SUPERVISOR Work Phone: [facility] Provider Adult Comment on above: Appointment Start: 07-26-2024 End: 07-26-2024 ambulatory SCARLETT GAVIRIA Facility:[facility] Start: 07-23-2024 End: 07-23-2024 Orders Only Alpa Ram DO Work Phone: [facility] Comment on above: Lumbar spondylosis ( Primary Dx) Start: 07-19-2024 End: 07-19-2024 ambulatory QUIANA CALLES Facility:[facility] Start: 07-17-2024 End: 07-17-2024 ambulatory SCARLETTCOCO GAVIRIA Facility:[facility] Start: 07-17-2024 End: 07-17-2024 Patient encounter procedure Angeli Au MD Work Phone: Cardiology Comment on above: PAF (paroxysmal atri al fibrillation) ([facility]LY [facility]) (Primary Dx); LBBB (left bundle branch block); Chronic HFrEF (heart failure with reduced ejection fraction) ([facility]); Coronary artery disease involving [place] coronary artery of [place] heart without angina pectoris; Aortic dilatation ([facility]LY [facility]); IRB [id number] [employer] (WATCH RWE) PI: Dr. Marcos Bermudez; Obesity, Class I, BMI 30-34.9 Start: 07-17-2024 End: 07-17-2024 Patient entered into trial Angeli Au MD Work Phone: [facility] Start: 07-12-2024 End: 09-28-2024 Telephone encounter Angeli Au MD Work Phone: Cardiology Comment on above: Appointment Start: 07-12-2024 End: 07-12-2024 ambulatory SCARLETT L GAVIRIA Facility:[facility] Start: 07-06-2024 End: 07-06-2024 ambulatory [facility] Work Phone: Start: 07-06-2024 End: 07-06-2024 Patient encounter procedure [facility] Work Phone: Start: 07-05-2024 End: 07-06-2024 Telephone encounter Moni Mandujano APRN.CNP Work Phone: Cardiology Comment on above: Shortness of breath with walking, new cough; Patient Update Start: 07-02-2024 End: 07-02-2024 ambulatory HARIS SUTTON Not Available Start: 07-02-2024 End: 07-02-2024 Office outpatient visit 15 minutes Haris Sutton DPM FACFAS Work Phone: [facility] Comment on above: Sprain of tarsal lig ament of foot, left, initial encounter (Primary Dx); Lisfranc dislocation, left, initial encounter; Tailor's bunion of right foot; Other enthesopathy of right foot and ankle Start: 07-02-2024 End: 07-02-2024 Bamboo flowsheet Haris Daiglece DPM FACFAS Work Phone: [facility] Start: 07-02-2024 End: 07-02-2024 Bamboo flowsheet Haris Pool Dolce DPM FACFAS Work Phone: [facility] Start: 07-02-2024 End: 07-03-2024 Telephone encounter Alpa Ram DO Work Phone: [facility] Start: 06-28-2024 End: 06-28-2024 ambulatory SCARLETT GAVIRIA Facility:[facility] Start: 06-20-2024 End: 06-20-2024 Telephone encounter Alpa Ram DO Work Phone: [facility] Comment on above: Preperations for Pro cedure Call Start: 06-19-2024 End: 06-19-2024 Bamboo flowsheet Haris Pool Dolce DPM FACFAS Work Phone: [facility] Start: 06-19-2024 End: 06-19-2024 Bamboo flowsheet Haris Pool Dolce DPM FACFAS Work Phone: [facility] Start: 06-19-2024 End: 06-19-2024 ambulatory HARIS SUTTON Not Available Start: 06-19-2024 End: 06-19-2024 Office outpatient visit 15 minutes Haris Sutton DPM FACFAS Work Phone: [facility] Comment on above: Lisfranc dislocation , left, initial encounter (Primary Dx); Other enthesopathy of right foot and ankle; Tailor's bunion of right foot; Onychomycosis; Pain in left foot; Pain in left toe(s) Start: 06-18-2024 End: 06-19-2024 ambulatory Alpa Ram DO Work Phone: Spine Medicine Comment on above: restarting Eliquis Start: 06-16-2024 End: 06-16-2024 Telephone encounter Alpa Ram DO Work Phone: [facility] Comment on above: Preperations for Pro cedure (Mychart) Start: 06-14-2024 End: 06-14-2024 Orders Only Alpa Lopez Estrella DO Work Phone: Spine Medicine Comment on above: Lumbar spondylosis ( Primary Dx) Start: 06-12-2024 End: 06-14-2024 Clinisync Result Encounter Haris Sutton DPM FACFAS Work Phone: [facility] External Department Unsolicited Start: 06-12-2024 End: 06-14-2024 Clinisync Result Encounter Haris Sutton DPM FACFAS Work Phone: [facility] External Department Unsolicited Start: 06-12-2024 End: 06-12-2024 ambulatory Haris Sutton Facility:[facility] Start: 06-12-2024 End: 06-12-2024 Patient encounter procedure Haris Sutton [facility] Comment on above: Lumbar spondylosis ( Primary Dx); Chronic bilateral low back pain without sciatica Start: 06-11-2024 End: 06-11-2024 ambulatory HARIS SUTTON Not Available Start: 06-11-2024 End: 06-11-2024 Bamboo flowsheet Haris Sutton DPM FACFAS Work Phone: [facility] Start: 06-11-2024 End: 06-11-2024 Bamboo flowsheet Haris Sutton DPM FACFAS Work Phone: [facility] Start: 06-11-2024 End: 06-11-2024 Office outpatient visit 25 minutes Haris Sutton DPM FACFAS Work Phone: [facility] Comment on above: Lisfranc dislocation , left, initial encounter (Primary Dx); Left foot pain; Sprain of anterior talofibular ligament of left ankle, initial encounter Start: 06-08-2024 End: 06-08-2024 ambulatory SCARLETT GAVIRIA Facility:[facility] Start: 06-08-2024 End: 06-08-2024 Patient encounter procedure Nurse Card [facility] Work Phone: Cardiology Comment on above: Persistent atrial fi brillation (HCC); Acute HFrEF (heart failure with reduced ejection fraction) (HCC) Start: 06-07-2024 End: 06-07-2024 ambulatory Dion Fontaine MD Work Phone: Cardiothoracic Start: 06-05-2024 End: 06-07-2024 Telephone encounter Angeli Au MD Work Phone: [address] [place] [address] Comment on above: Question Start: 05-29-2024 End: 06-14-2024 Telephone encounter Moni Mandujano APRN.CASHIERS SUPERVISOR Work Phone: Cardiology Comment on above: Results - Ct Start: 05-29-2024 ambulatory MONI MANDUJANO Facility:[facility] Start: 05-29-2024 End: 05-29-2024 Subsequent hospital visit by physician [facility] Comment on above: Aortic dilatation (H CC) [I77.819] Start: 05-28-2024 End: 05-28-2024 ambulatory SCARLETT GAVIRIA Facility:[facility] Start: 05-24-2024 End: 06-07-2024 Telephone encounter Pamela Simon MD Work Phone: Cardiothoracic Comment on above: Insurance Inquiry Referral Information ; Case Review Start: 05-22-2024 End: 05-22-2024 ambulatory Nghia ROBERSON Facility:[facility] Start: 05-22-2024 End: 05-22-2024 Patient encounter procedure Nghia ROBERSON [facility] Start: 05-21-2024 End: 05-21-2024 ambulatory Nghia ROBERSON Facility:[facility] Start: 05-21-2024 End: 05-21-2024 Patient encounter procedure Nghia ROBERSON [facility] Start: 05-18-2024 End: 05-22-2024 Telephone encounter Moni Mandujano APRN.CASHIERS SUPERVISOR Work Phone: Cardiology Start: 05-18-2024 End: 05-18-2024 ambulatory [facility] Facility:[facility] Start: 05-16-2024 End: 05-16-2024 Telephone encounter Angeli Au MD Work Phone: Cardiology Comment on above: Clinical Update Start: 05-14-2024 End: 05-14-2024 Telephone encounter Moni Bhatalexei MOSER.CASHIERS SUPERVISOR Work Phone: Cardiology Comment on above: Procedure (Heart cat h) Start: 05-11-2024 End: 05-11-2024 E-mail encounter from caregiver Moni Mandujano APRN.CASHIERS SUPERVISOR Work Phone: Cardiology Start: 05-11-2024 End: 05-11-2024 ambulatory [facility] Facility:[facility] Start: 05-11-2024 End: 05-11-2024 Patient encounter procedure Moni Bhatato HOP SORTER.CASHIERS SUPERVISOR Work Phone: Cardiology Comment on above: Today's Visit LBBB (left bundle br anch block) (Primary Dx); Paroxysmal atrial fibrillation (HCC); Persistent atrial fibrillation (HCC); Chronic HFrEF (heart failure with reduced ejection fraction) (HCC); Coronary artery disease involving [place] coronary artery of [place] heart without angina pectoris Start: 05-04-2024 End: 05-04-2024 Telephone encounter Moustapha Melvin APRN.CASHIERS SUPERVISOR Work Phone: Cardiology Comment on above: A-fib Start: 05-03-2024 End: 05-05-2024 Non-patient / Non-visit [facility] Work Phone: Start: 04-23-2024 End: 04-23-2024 Telephone encounter Odalys Pino MD Work Phone: Cardiology Comment on above: Patient Question (A fib confirmation) Start: 04-13-2024 End: 04-13-2024 Telephone encounter Odalys Pino MD Work Phone: Cardiology Start: 04-13-2024 End: 04-13-2024 ambulatory SCARLETT GAVIRIA Facility:[facility] Start: 04-13-2024 End: 04-13-2024 Patient encounter procedure Nurse Card [facility] Work Phone: Cardiology Comment on above: Paroxysmal atrial fi brillation (HCC) Start: 04-12-2024 End: 04-12-2024 ambulatory ODALYS PINO Facility:[facility] Start: 04-12-2024 End: 04-12-2024 Patient encounter procedure Odalys Pino MD Work Phone: Cardiology Comment on above: Paroxysmal atrial fi brillation (HCC) (Primary Dx) Start: 04-10-2024 End: 04-10-2024 Bamboo flowsheet Haris Tamar Daiglece DPM FACFAS Work Phone: [facility] Start: 04-10-2024 End: 04-10-2024 Bamboo flowsheet Haris D Dolce DPM FACFAS Work Phone: [facility] Start: 04-10-2024 End: 04-10-2024 Patient encounter procedure Haris Tamar Daiglece DPM FACFAS Work Phone: [facility] Comment on above: Onychomycosis (Prima ry Dx); Pain in left toe(s); Pain in right toe(s) Start: 04-10-2024 End: 04-10-2024 ambulatory HARIS SUTTON Not Available Start: 03-27-2024 End: 03-27-2024 Refill Michael Simms MD Work Phone: Cardiology Comment on above: Refill Request Start: 03-09-2024 End: 03-09-2024 ambulatory Jevon Pantoja Facility:[facility] Start: 03-09-2024 End: 03-09-2024 Patient encounter procedure Jevon Pantoja [facility] Start: 02-16-2024 End: 02-16-2024 ambulatory KONRAD AGUSTIN Not Available Start: 02-16-2024 End: 02-16-2024 Bamboo flowsheet Konrad Agustin MD Work Phone: [facility] Start: 02-16-2024 End: 02-16-2024 Bamboo flowsheet Konrad Agustin MD Work Phone: [facility] Start: 02-16-2024 End: 02-16-2024 Office outpatient visit 15 minutes Konrad Agustin MD Work Phone: [facility] Comment on above: Seborrheic keratosis (Primary Dx); Actinic keratosis; Lentigines; Bacterial folliculitis; History of malignant melanoma of skin Start: 02-15-2024 End: 02-15-[address] [facility] Start: 02-14-2024 End: 02-14-2024 ambulatory SCARLETT GAVIRIA Facility:[facility] Start: 02-14-2024 End: 02-14-2024 ambulatory SCARLETT GAVIRIA Facility:[facility] Start: 02-12-2024 End: 02-12-2024 Emergency department patient visit Antony Blackburn [facility] Start: 01-31-2024 End: 01-31-2024 Admission to same day surgery center Alpa Lopez Estrella RICE Work Phone: Ambulatory Surgery Comment on above: preprocedure instruc tions Start: 01-31-2024 End: 01-31-2024 Bamboo flowsheet Adilene Lowe PA Work Phone: [facility] [address] Start: 01-31-2024 End: 01-31-2024 Bamboo flowsheet Adilene Lowe PA Work Phone: [facility] [address] Start: 01-31-2024 End: 01-31-2024 E-mail encounter from caregiver Alpa Tobinabhilash RICE Work Phone: Ambulatory Surgery Start: 01-31-2024 End: 01-31-2024 ambulatory ADILENE LOWE Not Available Start: 01-31-2024 End: 01-31-2024 Office outpatient visit 15 minutes Adilene Lowe PA Work Phone: [facility] [address] Comment on above: MICHELE (obstructive sle ep apnea) (Primary Dx); Right median nerve neuropathy; Neck pain; Lumbar back pain; Depression, unspecified depression type ([facility]) Start: 01-26-2024 End: 01-26-[address] [facility] Start: 01-25-2024 End: 01-25-2024 Orders Only Alpa Ram DO Work Phone: [facility] Comment on above: Lumbar spondylosis ( Primary [...] Start: 01-13-2024 End: 01-13-2024 ambulatory Scarlett Gaviria Facility:[facility] Start: 01-13-2024 End: 01-13-2024 Patient encounter procedure Scarlett Gaviria [facility] Start: 12-30-2023 End: 12-30-2023 Telephone encounter Alpa Ram DO Work Phone: [facility] Start: 12-20-2023 End: 12-20-2023 ambulatory SCARLETT GAVIRIA Facility:[facility] Start: 12-15-2023 Telephone encounter Alpa Ram DO Work Phone: [facility] Comment on above: Preparations For Pro cedures (Pre-injection instructions for 12/20/2023) Start: 12-01-2023 End: 12-01-2023 ambulatory SEAN ALMANZAR Not Available Start: 11-26-2023 Orders Only Alpa hung DO Work Phone: Neurology Comment on above: Spinal stenosis, lum bar region, without neurogenic claudication (Primary Dx); Lumbar radiculopathy Start: 11-17-2023 End: 11-17-2023 ambulatory SCARLETT GAVIRIA Facility:[facility] Start: 11-17-2023 End: 11-17-2023 Patient encounter [...] 11-17-2023 Patient entered into trial Trans[facility] Start: 11-17-2023 End: 11-17-2023 ambulatory SCARLETT GAVIRIA Facility:[facility] Start: 11-16-2023 Telephone encounter Zahira Piña RN Cardiology Start: 11-11-2023 End: 11-11-2023 ambulatory SCARLETT GAVIRIA Facility:[facility] Start: 11-11-2023 End: 11-11-2023 Patient encounter procedure Alpa Ram DO Work Phone: Spine Medicine Comment on above: Spinal stenosis of l umbar region with radiculopathy (Primary Dx); Lower extremity numbness Start: 11-09-2023 Refill Angeli Pool Work Phone: Cardiology Comment on above: Refill Request Start: 11-08-2023 End: 11-08-2023 ambulatory HARIS SUTTON Not Available Start: 11-01-2023 End: 11-01-2023 ambulatory Nghia ROBERSON Facility: [place] Start: 11-01-2023 End: 11-01-2023 Patient encounter procedure Nghia ROBERSON [facility] Start: 10-28-2023 End: 10-28-2023 ambulatory Nghia ROBERSON Facility:[facility] Start: 10-28-2023 End: 10-28-2023 Patient encounter procedure Nghia ROBERSON [facility] Start: 10-26-2023 ambulatory Nghia Elizabeth ALLAN Facility :[facility] Start: 10-19-2023 Refill Angeli Pool Work Phone: Cardiology Comment on above: Refill Request Start: 10-03-2023 Refill Odalys welch MD Work Phone: Cardiology Comment on above: Refill Request Start: 09-27-2023 Telephone encounter Alpa Ram DO Work Phone: [facility] Comment on above: Post injection f/u c all Start: 09-16-2023 Telephone encounter Angeli shoemaker MD Work Phone: Cardiology Comment on above: Patient Update Start: 09-13-2023 Telephone encounter Alpa Ram DO Work Phone: [facility] Comment on above: Preparations For Pro cedures (Pre injection instructions) Start: 09-06-2023 End: 09-06-2023 ambulatory Jevon Pantoja Facility:[facility] Start: 09-06-2023 End: 09-06-2023 Patient encounter procedure Scarlett Gaviria [facility] Start: 09-01-2023 Orders Only Kaylah Barron i, MD Work Phone: Cardiology Comment on above: Paroxysmal atrial fi brillation (HCC) (Primary Dx); Chronic diastolic congestive heart failure (HCC); PAF (paroxysmal atrial fibrillation) (HCC); Presence of Watchman left atrial appendage closure device Start: 08-29-2023 ambulatory Jessika Kirsten RT(R) Rad iology Comment on above: Radiology XR Spinal stenosis of l umbar region with radiculopathy (Primary Dx) Start: 08-29-2023 End: 08-29-2023 Patient encounter procedure Jessika Kirsten RT(R) Radiology Comment on above: Spinal stenosis of l umbar region with radiculopathy (Primary Dx); Back pain of lumbosacral region with sciatica; Lumbar spondylosis Start: 08-29-2023 Telephone encounter Alpa Ram DO Work Phone: [facility] Comment on above: Prior Authorization Medication Start: 08-29-2023 End: 08-29-2023 Subsequent hospital visit by physician Xr [facility] Radiology Comment on above: Spinal stenosis of l umbar region with radiculopathy [M48.061, M54.16] Start: 08-24-2023 End: 08-24-2023 Patient encounter procedure Jevon Smithnura [facility] Start: 08-19-2023 End: 08-19-2023 Patient encounter procedure Jevonsamra Smithnura [facility] Start: 08-15-2023 End: 08-15-2023 Patient encounter procedure Odalys Pino MD Work Phone: Cardiology Comment on above: Paroxysmal atrial fi brillation (HCC) (Primary Dx) Start: 07-18-2023 End: 07-18-2023 Patient encounter procedure Angeli Au MD Work Phone: Cardiology Comment on above: Persistent atrial fi brillation (HCC) (Primary Dx); Presence of Watchman left atrial appendage closure device; Obesity, Class I, BMI 30-34.9; Chronic diastolic congestive heart failure (HCC) Start: 06-24-2023 End: 06-24-2023 Patient encounter procedure Zuhair Beatty [facility] Start: 06-22-2023 End: 06-22-2023 Patient encounter procedure Alpa Ram DO Work Phone: Spine Medicine Comment on above: Bilateral lumbar rad iculopathy (Primary Dx); Spinal stenosis, lumbar region, without neurogenic claudication; Anterolisthesis of lumbar spine Start: 06-20-2023 End: 06-20-2023 ambulatory Yareli Esposito Facility:[facility] Start: 06-20-2023 End: 06-20-2023 ambulatory Scarlett Gaviria Work Phone: [facility] Work Phone: Start: 06-20-2023 End: 06-20-2023 Patient encounter procedure Scarlett Gaviria Work Phone: [facility] Work Phone: Start: 06-20-2023 End: 06-20-2023 ambulatory Scarlett Gaviria Work Phone: [facility] Work Phone: Start: 06-20-2023 End: 06-20-2023 Patient encounter procedure Scarlett Gaviria Work Phone: [facility] Work Phone: Start: 06-16-2023 End: 06-16-2023 Subsequent hospital visit by physician Injection Nm [facility] Work Phone: Nuclear Medicine Comment on above: Atypical chest pain [R07.89] Start: 06-15-2023 Telephone encounter Nurse Card [facility] Work Phone: Cardiology Comment on above: Atypical chest pain (Primary Dx) Start: 06-14-2023 Bamboo flowsheet Haris Sutton DPM FACFAS Work Phone: [facility] Start: 06-14-2023 Bamboo flowsheet Haris Sutton DPM FACFAS Work Phone: [facility] Start: 06-14-2023 End: 06-14-2023 Patient encounter procedure Haris Sutton DPM FACFAS Work Phone: [facility] Comment on above: Onychomycosis (Prima ry Dx); Pain in left toe(s); Pain in right toe(s) Start: 06-13-2023 End: 06-13-2023 Subsequent hospital visit by physician Injection [facility] Work Phone: Nuclear Medicine Start: 06-03-2023 Refill Ny workman APRN.CASHIERS SUPERVISOR Work Phone: Cardiology Comment on above: Refill Request; Orde rs Start: 05-20-2023 End: 05-20-2023 Patient encounter procedure Scarlett Gaviria [facility] Start: 02-02-2023 End: 02-02-2023 Patient encounter procedure Nghia ROBERSON [facility] Start: 01-28-2023 End: 01-28-2023 Patient encounter procedure Nghia ROBERSON [facility] Start: 12-24-2022 End: 12-24-2022 Patient encounter procedure Jevon Pantoja [facility] Start: 11-13-2022 Refill Angeli Pool Work [...] End: 09-03-2022 Patient encounter procedure Jevon Pantoja [facility] Start: 09-01-2022 Telephone encounter Odalys Pino MD Work Phone: Cardiology Comment on above: Refill Request Start: 08-31-2022 Refill Kaylah Barron i, MD Work Phone: Cardiology Start: 08-19-2022 End: 08-19-2022 Patient encounter procedure Jevonsamra Pantoja [facility] Start: 07-27-2022 End: 07-27-2022 Patient encounter procedure Irena COOK [facility] Start: 07-21-2022 End: 07-21-2022 Patient encounter procedure Jacque Correia [facility] Start: 07-16-2022 Telephone encounter Odalys Pino MD Work Phone: Cardiology Comment on above: Refill Request (Eliceo syn) Start: 07-15-2022 End: 07-15-2022 Patient encounter procedure Florentino SANABRIA [facility] Start: 06-24-2022 End: 06-24-2022 Patient encounter procedure Scarlett Gaviria [facility] Start: 06-15-2022 End: 06-15-[address] DOCTOR DE LA PAZ Facility:[facility] Start: 06-10-2022 Orders Only Adilene Salasburton samayoa HOP SORTER.CASHIERS SUPERVISOR Work Phone: Cardiology Comment on above: IRB WATCHAMA N FLX [employer] Evidence (WATCH RWE) PI: Dr. Marcos Bermudez (Primary Dx); AF (paroxysmal atrial fibrillation) (HCC) Start: 06-10-2022 Patient entered into trial Adilene Gerber HOP SORTER.CASHIERS SUPERVISOR Work Phone: Cardiology Start: 05-30-2022 End: 05-30-[address] DAVID KING Facility:[facility] Start: 05-25-2022 Telephone encounter Kaylah Kemp MD Work Phone: Cardiology Comment on above: Patient Question Start: 05-19-2022 Encounter for examination for normal comparison and control in clinical research program SCARLETT GAVIRIA [facility] Start: 05-19-2022 End: 05-19-2022 Nursing evaluation of [...] unspecified hyperlipidemia type Start: 05-07-2022 Refill Chika BRITON.CASHIERS SUPERVISOR, DNP Work Phone: Cardiology Comment on above: [...] End: 02-18-2022 Patient encounter procedure Jevon Pantoja [facility] Start: 02-08-2022 End: 02-08-2022 Patient encounter procedure Patricia Le [facility] Start: 02-02-2022 End: 02-02-2022 Patient encounter procedure Patricia Le [facility] Start: 01-26-2022 End: 01-26-2022 Patient encounter procedure Irena COOK [facility] Start: 01-24-2022 End: 01-24-2022 ambulatory PASCUAL GRETCHEN Facility:[facility] Start: 01-19-2022 End: 01-19-2022 Patient encounter procedure Patricia Le [facility] Start: 01-18-2022 End: 01-18-2022 Patient encounter procedure Patricia Le [facility] Start: 01-10-2022 End: 01-10-2022 ambulatory MICHAEL GAMA CHAVEZ Facility:[facility] Start: 01-08-2022 Orders Only Kaylah Barron i, MD Work Phone: Cardiology Comment on above: Atrial fibrillation, unspecified type (HCC) (Primary Dx) Start: 01-08-2022 End: 01-08-2022 Patient encounter procedure Jevonsamra Amayaazizanura [facility] Start: 01-06-2022 End: 01-06-2022 Patient encounter procedure Odalys Pino MD Work Phone: Cardiology Comment on above: AF (paroxysmal atria l fibrillation) (HCC) (Primary Dx) Start: 01-01-2022 End: 01-01-2022 Patient encounter procedure MOUSTAPHA MELVIN [facility] Start: 12-31-2021 Telephone encounter Odalys Pino MD Work Phone: Cardiology Comment on above: Hospital Follow Up Start: 12-30-2021 End: 10-19-2022 Recurring Jevonsamra Amayaazizanura [facility] Start: 12-25-2021 Telephone encounter Odalys Pino MD Work Phone: Cardiology Comment on above: [facility] Start: 12-24-2021 End: 12-24-2021 Patient encounter procedure Jevonsamra Pantoja [facility] Start: 12-20-2021 End: 12-23-2021 Evaluation and management of inpatient DR MATTHEW ALEXANDRE Facility:[facility] Start: 12-01-2021 End: 12-01-2021 Patient encounter procedure Patricia Le [facility] Start: 11-05-2021 End: 11-05-2021 Patient encounter procedure Jevonsamra Pantoja [facility] Start: 10-30-2021 End: 10-30-[address] STACEY BEACH Facility:[facility] Start: 10-20-2021 Refill Odalys Pino Work Phone: Cardiology Comment on above: Refill Request Start: 10-15-2021 Refill Odalys welch MD Work Phone: [address] [place] [address] Comment on above: Refill Request ([place] olol) Start: 09-15-2021 End: 09-15-2021 Patient encounter procedure Irena COOK [facility] Start: 08-14-2021 Telephone encounter Odalys Pino MD Work Phone: Cardiology Comment on above: Holding of Eliquis f or EGD Start: 07-27-2021 End: 07-27-2021 Patient encounter procedure Florentino SANABRIA [facility] Start: 05-08-2021 End: 08-06-2021 Patient encounter procedure Haris Sutton [facility] Start: 10-11-2017 Ambulatory KB LAZO) [facility] Start: 03-17-2017 End: 04-01-2017 Ambulatory [facility] Start: 11-05-2016 End: 11-30-2016 Ambulatory [facility] Start: 11-04-2016 End: 11-30-2016 Ambulatory [facility] Procedures Date Procedure Procedure Detail Performing Clinician Start: 10-19-2024 Co diffusing capacity Eros Madrid MD Work Phone: Start: 08-16-2024 End: 08-16-2024 SKIN / NAIL BIOPSY Konrad Agustin MD Work Phone: Start: 08-16-2024 End: 08-16-2024 CRYOTHERAPY SKIN LESION Konrad Agustin MD Work Phone: Start: 08-16-2024 ZZDERMATOPATHOLOGY EXAM UNORDERABLE Konrad Agustin MD Work Phone: Start: 07-19-2024 Cardioversion Jevon Pantoja Comment on above: [facility] Start: 06-12-2024 MRI FOOT W/O CONTRAST LEFT Haris Sutton DPM FACFAS Work Phone: Start: 06-11-2024 Radex ankle complete minimum 3 views Haris Sutton DPM FACFAS Work Phone: Start: 05-29-2024 Ct angiography chest w/contrast/noncontrast Moni Mandujano HOP SORTER.CASHIERS SUPERVISOR Work Phone: Start: 04-12-2024 Ecg routine ecg w/least 12 [...] 06-16-2023 Myocardial spect multiple studies Jacqueline Tamayo HOP SORTER.CASHIERS SUPERVISOR Work Phone: Start: 01-06-2022 Ecg routine ecg w/least 12 lds w/i&r [facility] Provider Start: 12-21-2021 Excision of Stomach, Pylorus, Via Natural or Artificial Opening Endoscopic, Diagnostic DR DAVID KING Start: 12-20-2021 Transfusion of Nonautologous Red Blood Cells into Peripheral Vein, Percutaneous Approach DR DAVID KING Start: 07-27-2021 Colonoscopy Florentino MORALESAM Start: 07-09-2021 Excision of bunion [facility] Start: 06-03-2021 Arthrocentesis aspir&/inj small jt/bursa w/o us Nghia ROBERSON Start: 12-22-2020 Colonoscopy Odalys Pino MD Work Phone: Start: 12-22-2020 Colsc flx w/rmvl of tumor polyp lesion snare tq Florentino SANABRIA Start: 10-20-2020 Epidural injection of cervical spine using fluoroscopic guidance Florentino SANABRIA Comment on above: 20% releif at most Start: 07-28-2020 Radiofrequency ablation of medial branch of lumbar nerve using fluoroscopic guidance Florentino SANABRIA [employer] Comment on above: 95% relief to present Start: 07-08-2020 Injection of facet joint using fluoroscopic guidance Florentino SANABRIA Comment on above: bilat L4/5+L5/S1 MBB- 100% relief x 18 h rs. Start: 06-10-2020 Injection of facet joint using fluoroscopic guidance Florentino SANABRIA Comment on above: Bilateral L4-S1- 99% relief x 72 hours Start: 09-27-2018 Transurethral insertion of prostatic urethral lift implant Florentino SANABRIA Start: 08-30-2018 Cystoscopy Florentino SANABRIA Start: 05-19-2017 Arthrodesis of foot Florentino SANABRIA Comment on above: 1. First metatarsophalangeal joint arthr odesis 2. Capsulotomy second metatarsophalangeal joint 3. Removal of spur distal phalanx right second digit 4. Application of below knee posterior splint Start: 03-30-2017 Decompression of median nerve Florentino CANDE Rao Comment on above: RIGHT CARPAL TUNNEL RELEASE Start: 07-15-2016 Left carpal tunnel release Florentino SANABRIA Start: 04-07-2016 EVLT RGSV, phleb. right leg Florentino SANABRIA Start: 01-19-2016 Radiofrequency denervation of spinal facet joint of cervical vertebra [facility] [employer] Comment on above: right C4-C7 Start: 08-06-2015 Prosthetic arthroplasty of shoulder [facility] [employer] Comment on above: left Start: 05-19-2015 Injection of facet joint using fluoroscopic guidance [facility] [employer] Comment on above: right C4-C6 Start: 04-04-2015 cervica medial branch block 10 Goodadrienne MORALES AM Comment on above: right C4-C6 Start: 04-04-2015 cervica medial branch block 11 Jevon sy Comment on above: right C4-C6 Start: 07-03-2014 Transrectal biopsy of prostate using ultrasound guidance [facility] [employer] Start: 05-02-2012 skin lesion of left chest (melanoma) [facility] [employer] Start: 08-30-1994 Excision of lumbar intervertebral disc [facility] [employer] Comment on above: L5- S1 Appendectomy [facility] Cardiac ablation usi ng fluoroscopy guidance [facility] [employer] Colonoscopy [facility] [employer] Comment on above: Polyps 2007, 2011 Colonoscopy [facility] Esophagogastroduodenoscopy [facility] Excision of basal cell carcinoma [facility] [employer] Comment on above: back left leg, tip of nose, side of nose Hammer toe operation [facility] Herniated structure (morphologic abnormality) [facility] [employer] Comment on above: right inguinal Plication of left atrial appendage Irena COOK Radiofrequency ablat ion of medial branch of cervical nerve using fluoroscopic guidance [facility] [employer] Comment on above: C4,C5,C6 90 % relief sharp pain , but no w with dull, constant ache to R side neck Repair of musculoten dinous cuff of shoulder [facility] [employer] Comment on above: bilateral x2 each side Tonsillectomy [facility] [employer] Plan of Treatment Date Care Activity Detail Author Start: 09-09-2030 Urine microalbumin profile DTaP,Tdap,Td Vaccine (3 - Td or Tdap) [facility] Start: 09-20-2027 Diabetes Screening Diabetes Screening [facility] Start: 09-08-2027 Diabetes Screening Diabetes Screening [facility] Start: 07-13-2027 Diabetes Screening Diabetes Screening [facility] Start: 06-28-2027 Diabetes Screening Diabetes Screening [facility] Start: 06-07-2027 Diabetes Screening Diabetes Screening [facility] Start: 05-28-2027 Diabetes Screening Diabetes Screening [facility] Start: 05-18-2027 Diabetes Screening Diabetes Screening [facility] Start: 05-11-2027 Diabetes Screening Diabetes Screening [facility] Start: 02-13-2027 Diabetes Screening Diabetes Screening [facility] Start: 10-10-2026 Diabetes Screening Diabetes Screening [facility] Start: 04-26-2026 Diabetes Screening Diabetes Screening [facility] Start: 07-26-2025 BP Controlled (<130/80) BP Controlled (<130/80) [facility] Start: 07-17-2025 BP Controlled (<130/80) BP Controlled (<130/80) [facility] Start: 06-12-2025 BP Controlled (<130/80) BP Controlled (<130/80) [facility] Start: 05-12-2025 DIABETES SCREEN DIABETES SCREEN [facility] Start: 04-12-2025 BP Controlled (<130/80) BP Controlled (<130/80) Priest in Start: 02-14-2025 End: 02-14-2025 Patient encounter procedure 02/14/2025 1:00 PM EDT Office Visit [facility] [address] [place] [id number] Konrad Agustin MD [address] [place] [address] [facility] Start: 02-07-2025 End: 02-07-2025 Patient encounter procedure 02/07/2025 1:00 PM EDT Office Visit [facility] [address] [place] [id number] Adilene Lozano PA [address] [place], [place] [id number] [facility] Start: 12-05-2024 End: 12-05-2024 Patient encounter procedure Cardiology Comment on above: echo Return in about 4 mo nths (around 11/16/2024). Start: 11-16-2024 BP Controlled (<130/80) BP Controlled (<130/80) [facility] Start: 11-07-2024 End: 11-07-2024 Patient encounter procedure 11/07/2024 11:00 AM EDT Procedure Visit [facility] [address] [place] [address] Haris Sutton, DPM FACFAS [address] [place] [address] [facility] Start: 10-19-2024 End: 10-19-2024 Patient encounter procedure Cardiology Comment on above: 4-6 week follow up echo Start: 10-19-2024 End: 10-19-2024 Patient encounter procedure Pulmonary Medicine Comment on above: Lung Diffusion Spirometry echo Start: 10-17-2024 End: 10-17-2024 Distance Health 10/17/2024 4:00 PM EDT [facility] [address] [place] [address] Alpa Ram, [address] [place], [place] [id number] Ordering Provider Via Virtual Visit: 8 weeks Spine Medicine Comment on above: Ordering Provider Via Virtual Visit: 8 w eeks Start: 09-27-2024 Covid-19 Vaccine (8 - 2024-25 season) Covid-19 Vaccine () [facility] Start: 09-27-2024 End: 09-27-2024 Admission to same day surgery center Ambulatory Surgery Comment on above: DESTRUCTION BY RADIO FREQUENCY ABLATION PARAVERTEBRAL FACET JOINT NERVE(S) LUMBAR/SACRAL SINGLE FACET JOINT W/IMAGE GUIDANCE FLUORO OR CT Start: 09-27-2024 End: 09-27-2024 Dstr nrolytc agnt parverteb fct addl lmbr/sacral [facility] Start: 09-27-2024 End: 09-27-2024 Dstr nrolytc agnt parverteb fct sngl lmbr/sacral [facility] Start: 09-27-2024 Subsequent hospital visit by physician Ambulatory Surgery Comment on above: Lumbar spondylosis [M47.816] Start: 09-27-2024 End: 09-27-2024 Patient encounter procedure 09/27/2024 7:00 AM EDT Office Visit Pre Admission Testing [address] [place] [address] [facility] Pre Admission Testing Comment on above: Estrella Start: 09-19-2024 End: 09-19-2024 ambulatory 09/19/2024 4:40 PM EDT [facility] Spine Medicine [address] [place] [address] Alpa Ram [address] [place] [address] 2-4 weeks Spine Medicine Comment on above: 2-4 weeks Start: 09-13-2024 End: 12-13-2024 Basic metabolic 2000 panel - Serum or Plasma BASIC METABOLIC PANEL Lab Routine HFrEF (heart failure with reduced ejection fraction) ([facility]ERLY [facility]) Expected: 09/13/2024, Expires: 12/13/2024 [facility] Work Phone: Comment on above: Expected: 09/13/2024, Expires: Start: 09-13-2024 End: 12-13-2024 Natriuretic peptide.B prohormone N-Terminal [Mass/volume] in Serum or Plasma NT PRO BNP Lab Routine HFrEF (heart failure with reduced ejection fraction) (FORM[facility]LY [facility]) Expected: 09/13/2024, Expires: 12/13/2024 [facility] Comment on above: Expected: 09/13/2024, Expires: Start: 08-29-2024 End: 08-29-2024 Patient encounter procedure [facility] Comment on above: Arrived Start: 08-28-2024 BP Controlled (<130/80) BP Controlled (<130/80) [facility] inic Start: 08-28-2024 End: 08-28-2024 Patient encounter procedure 08/28/2024 11:10 AM EDT Procedure Visit [facility] [address] [place] [address] Haris Sutton, DPM FACFAS [address] [place] [place] [address] [facility] Start: 08-28-2024 End: 08-28-2024 Admission to same day surgery center 08/28/2024 8:12 AM EDT - 08/28/2024 8:54 AM EDT Surgery Ambulatory Surgery [address] [place] [address] Alpa Ram, DO [address] [place] [address] BLOCK MEDIAL BRANCH LUMBAR WITH C-ARM Ambulatory Surgery Comment on above: BLOCK MEDIAL BRANCH LUMBAR WITH C-ARM Start: 08-28-2024 End: 08-28-2024 Njx dx/ther agt pvrt facet jt lmbr/sac 1 level BLOCK MEDIAL BRANCH LUMBAR WITH C-ARM Lumbar spondylosis 08/28/2024 8:12 AM EDT [facility] Start: 08-28-2024 End: 08-28-2024 Njx dx/ther agt pvrt facet jt lmbr/sac 2nd level BLOCK MEDIAL BRANCH LUMBAR EACH ADDITIONAL VERTEBRA 2 W/IMAGE GUIDANCE FLUORO OR CT Lumbar spondylosis 08/28/2024 8:12 AM EDT [facility] Start: 08-28-2024 Subsequent hospital visit by physician Ambulatory Surgery Comment on above: Lumbar spondylosis [M47.816] Start: 08-16-2024 End: 08-16-2024 Patient encounter procedure [facility] Comment on above: Arrived Start: 08-15-2024 End: 08-15-2024 Patient encounter procedure 08/15/2024 2:00 PM EDT Office Visit KACIE SCHMITZ [address] [place] [phone] Adilene Lozano PA [address] [place] [address] Arrived KACIE SCHMITZ Comment on above: Arrived Start: 07-25-2024 End: 07-25-2024 Patient encounter procedure 07/25/2024 1:00 PM EDT Office Visit Cardiology [address] [place] [address] s/p dcc EKG Cardiology Comment on above: s/p dcc EKG Start: 07-24-2024 End: 07-24-2024 Patient encounter procedure 07/24/2024 2:20 PM EDT Office Visit KACIE SCHMITZ [address] [place] [phone] Adilene Lozano PA [address] [place] [address] KACIE SCHMITZ Start: 07-23-2024 End: 07-23-2024 Distance Health 07/23/2024 4:20 PM EDT [facility] Spine Medicine [address] [facility] [place] [place] [address] Alpa Ram DO [address] [place], [place] [id number] Ordering Provider Via Virtual Visit: 2-4 weeks Spine Medicine Comment on above: Ordering Provider Via Virtual Visit: 2-4 weeks Start: 07-19-2024 End: 07-19-2024 Admission to same day surgery center 07/19/2024 9:30 AM EDT - 07/19/2024 10:00 AM EDT Surgery [facility] [address] [place] [address] Quiana Calles MD [address] [facility] [place] [address] CARDIOVERSION EXTERNAL ELECTIVE [facility] Comment on above: CARDIOVERSION EXTERNAL ELECTIVE Start: 07-19-2024 End: 07-19-2024 Cardioversion elective arrhythmia external CARDIOVERSION EXTERNAL ELECTIVE Atrial fibrillation, unspecified type (HCC) 07/19/2024 9:30 AM EDT AV CATH Start: 07-19-2024 Subsequent hospital visit by physician 07/19/2024 9:30 AM EDT Hospital Encounter [facility] [address] [place] [address] Quiana Calles MD [address] [place] [address] Atrial fibrillation, unspecified type (HCC) [I48.91] [facility] Comment on above: Atrial fibrillation, unspecified type (H CC) [I48.91] Start: 07-17-2024 End: 07-17-2024 Patient encounter procedure [facility] [address] Comment on above: Follow up Start: 07-11-2024 End: 07-11-2024 Admission to same day surgery center 07/11/2024 8:00 AM EDT - 07/11/2024 8:30 AM EDT Surgery [facility] [address] [place] [address] [place] [address] [place] [address] CARDIOVERSION EXTERNAL ELECTIVE [facility] Comment on above: CARDIOVERSION EXTERNAL ELECTIVE Start: 07-11-2024 End: 07-11-2024 Cardioversion elective arrhythmia external CARDIOVERSION EXTERNAL ELECTIVE Atrial fibrillation, unspecified type (HCC) 07/11/2024 8:00 AM EDT AV CATH Start: 07-11-2024 Subsequent hospital visit by physician 07/11/2024 8:00 AM EDT Hospital Encounter [facility] [address] [place] [address] [place] [address] [place] [address] Atrial fibrillation, unspecified type (HCC) [I48.91] [facility] Comment on above: Atrial fibrillation, unspecified type (H CC) [I48.91] Start: 07-03-2024 End: 07-03-2024 Admission to same day surgery center Ambulatory Surgery Comment on above: BLOCK MEDIAL BRANCH LUMBAR WITH C-ARM Start: 07-03-2024 End: 07-03-2024 Njx dx/ther agt pvrt facet jt lmbr/sac 1 level [facility] Start: 07-03-2024 End: 07-03-2024 Njx dx/ther agt pvrt facet jt lmbr/sac 2nd level [facility] Start: 07-03-2024 Subsequent hospital visit by physician Ambulatory Surgery Comment on above: Lumbar spondylosis [M47.816] Start: 07-02-2024 End: 07-02-2024 Patient encounter procedure 07/02/2024 3:40 PM EST Office Visit [facility] [address] [place] [phone] Haris Sutton, DPM FACFAS [address] [place] [address] [facility] Start: 07-02-2024 DIABETES SCREEN DIABETES SCREEN [facility] Start: 06-22-2024 BP Controlled (<130/80) BP Controlled (<130/80) [facility] Start: 06-19-2024 End: 06-19-2024 Patient encounter procedure 06/19/2024 11:10 AM EST Procedure Visit [facility] [address] [facility] [facility] [phone] Haris Sutton, DPM FACFAS [address] [facility] [place] [address] [facility] Start: 06-12-2024 End: 06-12-2024 Patient encounter procedure 06/12/2024 10:00 AM EST Office Visit Spine Medicine [address] [place] [phone] Alpa Ram, [address] [place] [address] f/u Spine Medicine Comment on above: f/u Start: 06-11-2024 End: 06-11-2025 MR Foot - left WO contrast MR foot left wo IV contrast Imaging Routine Lisfranc dislocation, left, initial encounter Expected: 06/11/2024 (Approximate), Expires: 06/11/2025 [facility] Work Phone: Comment on above: Expected: 06/11/2024 (Approximate), Expi res: 06/11/2025 Start: 06-08-2024 End: 06-08-2024 Patient encounter procedure 06/08/2024 11:30 AM EST Office Visit Cardiology [address] [place] [phone] ecg Cardiology Comment on above: ecg Start: 06-07-2024 Hepatitis B surface antibody level LDL Cholesterol [facility] Start: 06-07-2024 End: 06-07-2024 Patient encounter procedure 06/07/2024 1:15 PM EST Office Visit [facility] [address] [place] [address] [place] [address] Persistent atrial fibrillation (HCC); Acute HFrEF (heart failure with reduced ejection fraction) (HCC) [facility] Comment on above: Persistent atrial fibrillation (HCC); Acute HFrEF (heart failure with reduced ejection fraction) (HCC) Start: 06-01-2024 End: 06-01-2024 Patient encounter procedure 06/01/2024 2:30 PM EST Appointment Radiology [address] [place] [address] CTA Chest Radiology Comment on above: CTA Chest Start: 05-18-2024 End: 05-18-2024 Admission to same day surgery center 05/18/2024 11:30 AM EST - 05/18/2024 1:00 PM EST Surgery [facility] [address] [place] [address] [place] [address] [place], [place] [phone] CORONARY ANGIO W CATH PLACE W IMAGE INJECT & INTERP W LT HEART CATH W INJECT LT VENTRGRAPHY [facility] Comment on above: CORONARY ANGIO W CATH PLACE W IMAGE INJE CT & INTERP W LT HEART CATH W INJECT LT VENTRGRAPHY Start: 05-18-2024 End: 05-18-2024 Cath plmt l hrt & arts w/njx & angio img s&i CORONARY ANGIO W CATH PLACE W IMAGE INJECT & INTERP W LT HEART CATH W INJECT LT VENTRGRAPHY PAF (paroxysmal atrial fibrillation) (HCC) Persistent atrial fibrillation (HCC) LBBB (left bundle branch block) 05/18/2024 11:30 AM EST FV CATH Start: 05-18-2024 Subsequent hospital visit by physician 05/18/2024 11:30 AM EST Hospital Encounter [facility] [address] [place] [address] [place] [address] [place] [address] PAF (paroxysmal atrial fibrillation) (HCC) [I48.0], Persistent atrial fibrillation (HCC) [I48.19], LBBB (left bundle branch block) [I44.7] [facility] Comment on above: PAF (paroxysmal atrial fibrillation) (HC C) [I48.0], Persistent atrial fibrillation (HCC) [I48.19], LBBB (left bundle branch block) [I44.7] Start: 05-11-2024 End: 08-10-2024 CBC panel - Blood by Automated count COMPLETE BLOOD COUNT Lab Routine Paroxysmal atrial fibrillation (HCC) Persistent atrial fibrillation (HCC) LBBB (left bundle branch block) Chronic HFrEF (heart failure with reduced ejection fraction) (HCC) Coronary artery disease involving [place] coronary artery of [place] heart without angina pectoris Expected: 05/11/2024, Expires: 08/10/2024 [facility] Comment on above: Expected: 05/11/2024, Expires: Start: 05-11-2024 End: 08-10-2024 Flecainide [Mass/volume] in Serum or Plasma [facility] Comment on above: Expected: 05/11/2024, Expires: Start: 05-02-2024 Advance Directive Discussion Advance Directive Discussion [facility] Start: 05-02-2024 Medicare Advantage Annual Wellness Visit Medicare [facility] Annual Wellness Visit [facility] Start: 04-13-2024 End: 04-13-2024 Patient encounter procedure 04/13/2024 11:00 AM EST Office Visit Cardiology [address] [place] [address] ekg Cardiology Comment on above: ekg Start: 04-12-2024 End: 04-12-2024 Patient encounter procedure 04/12/2024 10:00 AM EST Office Visit Cardiology [address] [place] [address] [place] [address] [place] [address] return in about 6 months (around ) Cardiology Comment on above: return in about 6 months (around 2023) Start: 04-10-2024 End: 04-10-2024 Patient encounter procedure 04/10/2024 11:00 AM EST Procedure Visit [facility] [address] [place] [phone] Haris Sutton, DPM FACFAS [address] [place] [address] Arrived [facility] Comment on above: Arrived Start: 03-27-2024 End: 03-27-2024 Patient encounter procedure 03/27/2024 11:10 AM EST Procedure Visit [facility] [address] [place] [address] Haris Sutton, DPM FACFAS [address] [place] [address] [facility] Start: 03-07-2024 LIPID SCREEN LIPID SCREEN [facility] Start: 02-16-2024 End: 02-16-2024 Patient encounter procedure 02/16/2024 1:50 PM EDT Office Visit [facility] [address] [place] [phone] Konrad Agustin MD [address] [place] [address] [facility] Start: 02-14-2024 End: 02-14-2024 Admission to same day surgery center 02/14/2024 12:28 PM EDT - 02/14/2024 1:17 PM EDT Surgery Ambulatory Surgery [address] [place], [place] [phone] Alpa Ram, DO [address] [place] [address] BLOCK MEDIAL BRANCH LUMBAR WITH C-ARM Ambulatory [...] 02/09/2024 1:20 PM EDT Office Visit Cardiology [address] [place] [address] [place] [address] [place] [address] return in about 6 months (around ) Cardiology Comment on above: return in about 6 months (around 2023) Start: 01-31-2024 End: 01-31-2024 Patient encounter procedure [facility] Start: 01-17-2024 End: 01-17-2024 Patient encounter procedure 01/17/2024 11:20 AM EDT Procedure Visit [facility] [address] [place] [address] Haris Sutton, DPM FACFAS [address] [place] [address] Arrived [facility] Comment on above: Arrived Start: 01-16-2024 End: 01-16-2024 [facility] Spine Medicine Comment on above: Ordering Provider Via Office or Virtual Visit: 2-4 weeks Start: 01-01-2024 Covid-19 Vaccine ( season) Covid-19 Vaccine () [facility] Start: 01-01-2024 Covid-19 Vaccine ( season) Covid-19 Vaccine ( season) [facility] Start: 01-01-2024 Influenza vaccination Influenza Vaccine (#1) [facility] Start: 12-20-2023 End: 12-20-2023 Admission to same [...] Office Visit Pre Admission Testing [address] [place] [address] Estrella Pre Admission Testing Comment on above: Mendis Start: 11-17-2023 End: 11-17-2023 Patient encounter procedure 11/17/2023 4:45 PM EDT Office Visit Cardiology [address] [place] [address] Kaylah Kemp MD [address] [place] [address] Dx: PAF (paroxysmal atrial fibrillation), Gastrointestinal Cardiology Comment on above: Dx: PAF (paroxysmal atrial fibrillation) , Gastrointestinal Start: 11-17-2023 End: 11-17-2023 Patient encounter procedure Cardiology Comment on above: Dx: PAF (paroxysmal atrial fibrillation) , Gastrointestinal 1 YEAR F/U PER HVI O RDER Start: 11-17-2023 End: 11-17-2023 ambulatory 11/17/2023 1:30 PM EDT Results Only Cardiology [address] [place] [address] Dx: PAF (paroxysmal atrial fibrillation), Gastrointestinal Cardiology Comment on above: Dx: PAF (paroxysmal atrial fibrillation) , Gastrointestinal Start: 11-11-2023 End: 11-11-2023 Patient encounter procedure 11/11/2023 10:30 AM EDT Office Visit Spine Medicine [address] [place] [address] Alpa Ram DO [address] [place] [address] 2-4 weeks Spine Medicine Comment on above: 2-4 weeks Start: 09-20-2023 End: 09-20-2023 Admission to same day surgery center 09/20/2023 12:41 PM EDT - 09/20/2023 1:30 PM EDT Surgery Ambulatory Surgery [address] [place] [address] Alpa Ram DO [address] [place] [address] INJECTION ANESTHETIC AGENT/STEROID TRANSFORAMINAL EPIDURAL W/ IMAGING [...] PM EDT Hospital Encounter Ambulatory Surgery [address] [place] [address] Alpa Ram, DO [address] [place] [address] 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athy [M48.061, 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] Ambulatory Surgery Comment on above: Spinal stenosis of lumbar region with ra diculopathy [M48.061, M54.16] Start: 09-20-2023 End: 09-20-2023 Admission to same day surgery center 09/20/2023 7:30 AM EDT - 09/20/2023 8:19 AM EDT Surgery Ambulatory Surgery [address] [place] [address] Alpa Ram, DO [address] [place] [address] INJECTION ANESTHETIC AGENT/STEROID TRANSFORAMINAL EPIDURAL W/ IMAGING [...] AM EDT Hospital Encounter Ambulatory Surgery [address] [place] [address] Alpa Ram, DO [address] [place] [address] 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athy [M48.061, M54.16] Ambulatory Surgery Comment on above: Spinal stenosis of lumbar region with ra diculopathy [M48.061, M54.16] Start: 09-20-2023 End: 09-20-2023 Patient encounter procedure 09/20/2023 7:00 AM EDT Office Visit Pre Admission Testing [address] [place] [address] Mendis Pre Admission Testing Comment on above: Mendis Start: 08-23-2023 End: 08-23-2023 Patient encounter procedure 08/23/2023 11:50 AM EDT Procedure Visit [facility] [address] [place] [address] Haris Sutton, DPM FACFAS [address] [facility] [place] [address] [facility] Start: 08-16-2023 End: 08-16-2023 Patient encounter procedure 08/16/2023 1:15 PM EDT Office Visit [facility] [address] [place] [address] Konrad Agustin MD [address] [place] [address] [facility] Start: 07-28-2023 Covid-19 Vaccine ( season) Covid-19 Vaccine ( season) [facility] Start: 06-20-2023 Patient referral [facility] Work Phone: Start: 06-15-2023 End: 07-14-2024 NM Heart Perfusion W stress and W radionuclide IV NM CARDIAC PERF STRESS/PHARM Radiology Routine Atypical chest pain ANDERSEN (dyspnea on exertion) Hyperlipidemia, unspecified hyperlipidemia type Expected: 06/15/2023, Expires: 07/14/2024 [facility] Work Phone: Comment on above: Expected: 06/15/2023, Expires: 5 Start: 06-03-2023 End: 09-02-2023 Lipid 1996 panel - Serum or Plasma LIPID PANEL BASIC Lab Routine Hyperlipidemia, unspecified hyperlipidemia type Expected: 06/03/2023, Expires: 09/02/2023 [facility] Work Phone: Comment on above: Expected: 06/03/2023, Expires: 4 Start: 05-02-2023 Advance Directive Discussion Advance Directive Discussion [facility] Start: 01-06-2023 BP CONTROLLED (<130/80) BP CONTROLLED (<130/80) [facility] Start: 12-31-2022 Influenza vaccination INFLUENZA (#1) [facility] Start: 07-08-2022 BP CONTROLLED (<130/80) BP CONTROLLED (<130/80) [facility] Start: 05-02-2022 ADVANCE DIRECTIVE DISCUSSION ADVANCE DIRECTIVE DISCUSSION [facility] Start: 04-19-2022 End: 04-18-2023 Basic metabolic 2000 panel - Serum or Plasma BASIC METABOLIC PNL Lab Routine PAF (paroxysmal atrial fibrillation) ([facility]LY [facility]) Expected: 04/19/2022, Expires: 04/18/2023 [facility] Work Phone: Comment on above: Expected: 04/19/2022, Expires: 3 Start: 04-19-2022 End: 04-19-2023 CBC panel - Blood by Automated count CBC Lab Routine PAF (paroxysmal atrial fibrillation) (HCC) Expected: 04/19/2022, Expires: 04/19/2023 [facility] Work Phone: Comment on above: Expected: 04/19/2022, Expires: 3 Start: 04-19-2022 End: 08-18-2022 SARS-CoV-2 (COVID-19) RNA [Presence] in Respiratory specimen by BOAZ with probe detection INTERMEDIATE RAPID COVID Microbiology Routine PAF (paroxysmal atrial fibrillation) (HCC) Expected: 04/19/2022, Expires: 08/18/2022 [facility] Work Phone: Comment on above: Expected: 04/19/2022, Expires: 3 Start: 04-19-2022 End: 04-19-2023 TYPE AND SCREEN,30 DAY TYPE AND SCREEN,30 DAY Blood Bank Routine PAF (paroxysmal atrial fibrillation) (HCC) Expected: 04/19/2022, Expires: 04/19/2023 [facility] Work Phone: Comment on above: Expected: 04/19/2022, Expires: 3 Start: 01-01-2022 End: 03-03-2022 Basic metabolic 2000 panel - Serum or Plasma BASIC METABOLIC PNL Lab Routine PAF (paroxysmal atrial fibrillation) (HCC) Expected: 01/01/2022, Expires: 03/03/2022 [facility] Work Phone: Comment on above: Expected: 01/01/2022, Expires: 2 Start: 01-01-2022 End: 03-03-2022 CBC panel - Blood by Automated count CBC Lab Routine PAF (paroxysmal atrial fibrillation) (HCC) Expected: 01/01/2022, Expires: 03/03/2022 [facility] Work Phone: Comment on above: Expected: 01/01/2022, Expires: 2 Start: 12-31-2021 Influenza vaccination INFLUENZA (#1) [facility] Start: 12-22-2021 Colonoscopy COLONOSCOPY [facility] Start: 12-22-2021 COLORECTAL CANCER SCREENING COLORECTAL CANCER SCREENING [facility] Start: 07-04-2021 COVID-19 VACCINE (4 - Booster for Pfizer series) COVID-19 VACCINE (4 - Booster for Pfizer series) [facility] Start: 05-02-2021 ADVANCE DIRECTIVE DISCUSSION ADVANCE DIRECTIVE DISCUSSION [facility] Start: 2011 PNEUMOVAX AGE 65 AND OVER WITH 5YR LOOKBACK (#1) PNEUMOVAX AGE 65 AND OVER WITH 5YR LOOKBACK (#1) [facility] Start: 01-28-1996 SHINGRIX VACCINE (1 of 2) SHINGRIX VACCINE (1 of 2) [facility] Start: 1991 COLOGUARD (FIT-DNA) COLOGUARD (FIT-DNA) [facility] Start: [address] COLONOGRAPHY [facility] Start: 1991 FECAL OCCULT BLOOD FECAL OCCULT BLOOD [facility] Start: 1991 SIGMOIDOSCOPY SIGMOIDOSCOPY [facility] Start: 1965 SHINGRIX VACCINE (1 of 2) SHINGRIX VACCINE (1 of 2) [facility] Start: 1965 Urine microalbumin profile DTAP,TDAP,TD (1 - Tdap) [facility] Start: 01-28-1964 ANNUAL PCP TEAM CHRONIC DISEASE VISIT ANNUAL PCP TEAM CHRONIC DISEASE VISIT [facility] Start: 01-28-1964 Anxiety Screening Anxiety Screening [facility] Start: 01-28-1964 BP CONTROLLED (<130/80) BP CONTROLLED (<130/80) [facility] in Start: 01-28-1964 HEPATITIS C SCREENING HEPATITIS C SCREENING [facility] Start: 01-28-1964 Hepatitis C screening Hepatitis C Screening [facility] Start: 01-28-1952 PNEUMOCOCCAL: 65+ (1 - PCV) PNEUMOCOCCAL: 65+ (1 - PCV) [facility] Start: 1946 Medicare Annual Wellness (AWV) Medicare Annual Wellness (AWV) [facility] [employer] End: 10-02-2024 Basic metabolic 2000 panel - Serum or Plasma BASIC METABOLIC PANEL Lab Routine Visit for monitoring Tikosyn therapy Every 3 months for 4 Occurrences starting 10/03/2023 until 10/02/2024 [facility] Work Phone: Comment on above: Every 3 months for 4 Occurrences startin g 10/03/2023 until 10/02/2024 End: 06-17-2025 CTA Chest vessels W contrast IV CTA CHEST (GATED) W IVCON Radiology Routine Aortic dilatation (HCC) 1 Occurrences starting 05/18/2024 until 06/17/2025 [facility] Work Phone: Comment on above: 1 Occurrences starting 05/18/2024 until 06/17/2025 Dermatopathology exam Dermatopat hology exam Pathology and Cytology Timed Neoplasm of unspecified behavior of bone, soft tissue, and skin Release Upon Ordering for 1 Occurrences starting 08/16/2024 [facility] [employer] Work Phone: Comment on above: Release Upon Ordering for 1 Occurrences starting 08/16/2024 DXA Skeletal system. axial Views for bone density [facility] ECG COMPLETE ECG COMPLETE ECG 01/06/2022 1:09 PM EDT [facility] End: 01-08-2023 ECG COMPLETE ECG COMPLETE ECG Routine Atrial fibrillation, unspecified type (HCC) 1 Occurrences starting 01/08/2022 until 01/08/2023 [facility] Work Phone: Comment on above: 1 Occurrences starting 01/08/2022 until 01/08/2023 End: 04-19-2023 ECG COMPLETE ECG COMPLETE ECG Routine PAF (paroxysmal atrial fibrillation) (HCC) 1 Occurrences starting 04/19/2022 until 04/19/2023 [facility] Work Phone: Comment on above: 1 Occurrences starting 04/19/2022 until 04/19/2023 End: 06-10-2023 ECG COMPLETE ECG COMPLETE ECG Routine IRB 21-1031 [employer] (WATCH RWE) PI: Dr. Marcos Bermudez AF (paroxysmal atrial fibrillation) (HCC) 1 Occurrences starting 06/10/2022 until 06/10/2023 [facility] Work Phone: Comment on above: 1 Occurrences starting 06/10/2022 until 06/10/2023 End: 08-31-2024 ECG COMPLETE ECG COMPLETE ECG Routine Paroxysmal atrial fibrillation (HCC) Chronic diastolic congestive heart failure (HCC) PAF (paroxysmal atrial fibrillation) (HCC) Presence of Watchman left atrial appendage closure device 1 Occurrences starting 09/01/2023 until 08/31/2024 [facility] Work Phone: Comment on above: 1 Occurrences starting 09/01/2023 until 08/31/2024 ECG COMPLETE [facility] Work Phone: Comment on above: Ordered: 04/12/2024 End: 04-12-2025 ECG COMPLETE ECG COMPLETE ECG Routine Paroxysmal atrial fibrillation (HCC) 1 Occurrences starting 04/12/2024 until 04/12/2025 [facility] Comment on above: 1 Occurrences starting 04/12/2024 until 04/12/2025 End: 04-23-2025 ECG COMPLETE ECG COMPLETE ECG Routine PAF (paroxysmal atrial fibrillation) (HCC) 1 Occurrences starting 04/23/2024 until 04/23/2025 [facility] Work Phone: Comment on above: 1 Occurrences starting 04/23/2024 until 04/23/2025 ECG COMPLETE ECG COMPLETE ECG Routine Persistent atrial fibrillation (HCC) Ordered: 05/11/2024 [facility] Work Phone: Comment on above: Ordered: 05/11/2024 ECG COMPLETE ECG COMPLETE ECG Routine Persistent atrial fibrillation (HCC) Current use of mcc anticoagulation Ordered: 10/19/2024 [facility] Work Phone: Comment on above: Ordered: 10/19/2024 End: 04-19-2023 ECHO TRANSESOPHAGEAL ECHO TRANSESOPHAGEAL Cardiology Routine PAF (paroxysmal atrial fibrillation) (FORMERLY [facility]) 1 Occurrences starting 04/19/2022 until 04/19/2023 [facility] Work Phone: Comment on above: 1 Occurrences starting 04/19/2022 until 04/19/2023 End: 06-10-2023 ECHO TRANSESOPHAGEAL ECHO TRANSESOPHAGEAL Cardiology Routine IRB 21-1031 [employer] (WATCH RWE) PI: Dr. Marcos Bermudez AF (paroxysmal atrial fibrillation) (FORMERLY [facility]) 1 Occurrences starting 06/10/2022 until 06/10/2023 [facility] Work Phone: Comment on above: 1 Occurrences starting 06/10/2022 until 06/10/2023 ECHO TRANSESOPHAGEAL ECHO TRANSE SOPHAGEAL Cardiology Routine PAF (paroxysmal atrial fibrillation) (HCC) Ordered: 09/14/2022 [facility] Work Phone: Comment on above: Ordered: 09/14/2022 End: 04-19-2023 Echocardiography ECHO Cardiology Routine PAF (paroxysmal atrial fibrillation) (FORMERLY [facility]) 1 Occurrences starting 04/19/2022 until 04/19/2023 [facility] Work Phone: Comment on above: 1 Occurrences starting 04/19/2022 until 04/19/2023 End: 07-17-2025 Echocardiography ECHO Cardiology Routine PAF (paroxysmal atrial fibrillation) (FORM[facility]LY [facility]) LBBB (left bundle branch block) Chronic HFrEF (heart failure with reduced ejection fraction) (FORMERLY [facility]) Coronary artery disease involving lower [place] coronary artery of [place] heart without angina pectoris Aortic dilatation (FORMER[facility]) IRB 21-1031 [employer] (WATCH RWE) PI: Dr. Marcos Bermudez Obesity, Class I, BMI 30-34.9 1 Occurrences starting 07/17/2024 until 07/17/2025 [facility] Work Phone: Comment on above: 1 Occurrences starting 07/17/2024 until 07/17/2025 End: 10-10-2025 LUNG DIFFUSION CAPACITY (DLCO) LUNG DIFFUSION CAPACITY (DLCO) PFT Routine [facility] current use of amiodarone 1 Occurrences starting 09/10/2024 until 10/10/2025 [facility] Comment on above: 1 Occurrences starting 09/10/2024 until 10/10/2025 End: 10-02-2024 Magnesium [Mass/volume] in Serum or Plasma MAGNESIUM Lab Routine Visit for monitoring Tikosyn therapy Every 3 months for 4 Occurrences starting 10/03/2023 until 10/02/2024 [facility] Comment on above: Every 3 months for 4 Occurrences startin g 10/03/2023 until 10/02/2024 Njx anes&/strd w/img tfrml edrl lmbr/sac 1 lvl INJECTION(S) STEROID TRANSFORAMINAL EPIDURAL W/ IMAGING GUIDANCE LUMBAR Spinal stenosis, lumbar region, without neurogenic claudication Lumbar radiculopathy [facility] Njx dx/ther agt pvrt facet jt lmbr/sac 1 level BLOCK MEDIAL BRANCH LUMBAR WITH C-ARM Lumbar spondylosis [facility] Njx dx/ther agt pvrt facet jt lmbr/sac 1 level BLOCK MEDIAL BRANCH LUMBAR WITH C-ARM Lumbar spondylosis [facility] Njx dx/ther agt pvrt facet jt lmbr/sac 2nd level BLOCK MEDIAL BRANCH LUMBAR EACH ADDITIONAL VERTEBRA 2 W/IMAGE GUIDANCE FLUORO OR CT Lumbar spondylosis [facility] Njx dx/ther agt pvrt facet jt lmbr/sac 2nd level BLOCK MEDIAL BRANCH LUMBAR EACH ADDITIONAL VERTEBRA 2 W/IMAGE GUIDANCE FLUORO OR CT Lumbar spondylosis [facility] End: 07-14-2024 NM Heart Perfusion W stress and W radionuclide IV NM CARDIAC PERF STRESS/PHARM Radiology Routine Atypical chest pain 1 Occurrences starting 06/15/2023 until 07/14/2024 [facility] Work Phone: Comment on above: 1 Occurrences starting 06/15/2023 until 07/14/2024 Patient referral [facility] Work Phone: SPINE INTERVENTION PROCEDURE SPINE INTERVENTION PROCEDURE Procedures Routine 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athy Ordered: 08/29/2023 [facility] Work Phone: Comment on above: Ordered: 08/29/2023 SPINE INTERVENTION PROCEDURE SPINE INTERVENTION PROCEDURE Procedures Routine 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athy Ordered: 11/11/2023 [facility] Work Phone: Comment on above: Ordered: 11/11/2023 SPINE INTERVENTION PROCEDURE SPINE INTERVENTION PROCEDURE Procedures Routine Lumbar spondylosis Ordered: 01/17/2024 [facility] Work Phone: Comment on above: Ordered: 01/17/2024 SPINE INTERVENTION PROCEDURE SPINE INTERVENTION PROCEDURE Procedures Routine Lumbar spondylosis Ordered: 06/12/2024 [facility] Work Phone: Comment on above: Ordered: 06/12/2024 SPINE INTERVENTION PROCEDURE SPINE INTERVENTION PROCEDURE Procedures Routine Lumbar spondylosis Ordered: 09/03/2024 [facility] Work Phone: Comment on above: Ordered: 09/03/2024 End: 10-10-2025 SPIROMETRY - BASELINE AND POST DILATOR SPIROMETRY - BASELINE AND POST DILATOR PFT Routine [facility] current use of amiodarone 1 Occurrences starting 09/10/2024 until 10/10/2025 [facility] Work Phone: Comment on above: 1 Occurrences starting 09/10/2024 until 10/10/2025 [facility] Immunizations Immunization Date Immunization Notes Care Provider Fa cility 03-08-2024 influenza virus vaccine, unspecified formulation Haris Sutton DPM FACFAS Work Phone: [facility] 05-14-2023 respiratory syncytia l virus (RSV) vaccine, bivalent (ABRYSVO) Alpa Ram DO Work Phone: [facility] 03-29-2023 influenza (HD-IIV4) vaccine, age 65+ yr, high dose, quadrivalent, PF (FLUZONE HIGH-DOSE) Alpa Ram DO Work Phone: [facility] 03-29-2023 influenza virus vaccine, unspecified formulation Moffett Monsehumberto [facility] 02-25-2022 influenza (HD-IIV4) vaccine, age 65+ yr, high dose, quadrivalent, PF (FLUZONE HIGH-DOSE) Alpa Ram DO Work Phone: [facility] 02-25-2022 influenza virus vaccine, unspecified formulation Florentino SANABRIA [facility] 02-25-2022 SARS-CoV-2 (COVID-19 ) [id number] Florentino SANABRIA [facility] 01-30-2022 influenza virus vaccine, unspecified formulation Jevon Pantoja [facility] 09-10-2021 COVID-19 vaccine, unspecified formulation Alpa Ram DO Work Phone: [facility] 09-10-2021 SARS-CoV-2 mRNA (jcyvfmtnbgi-awfo-vwdqj se) vaccine Good SALAM [facility] 03-06-2021 influenza (HD-IIV4) vaccine, age 65+ yr, high dose, quadrivalent, PF (FLUZONE HIGH-DOSE) Alpa Mendabhilash DO Work Phone: [facility] 03-06-2021 influenza virus vaccine, unspecified formulation Good CARMENDALILA [facility] 03-06-2021 SARS-CoV-2 (COVID-19 ) mRNA BNT-162b2 vax Good SALAM [facility] 03-02-2021 influenza nasal, unspecified formulation Alpa Tobinis DO Work Phone: [facility] 03-02-2021 influenza virus vaccine, unspecified formulation Good SALAM [facility] 02-08-2021 influenza nasal, unspecified formulation Alpa Mahadis DO Work Phone: [facility] 02-08-2021 influenza virus vaccine, unspecified formulation Good SALAM [facility] 09-09-2020 diphtheria, tetanus toxoids and pertussis vaccine Alpa Mendis DO Work Phone: [facility] 06-27-2020 SARS-CoV-2 (COVID-19 ) Ad26 vaccine, recombinant Good SALAM [facility] 06-03-2020 SARS-CoV-2 (COVID-19 ) Ad26 vaccine, recombinant Good SALAM [facility] 02-21-2020 influenza (HD-IIV4) vaccine, age 65+ yr, high dose, quadrivalent, PF (FLUZONE HIGH-DOSE) Alpa Ram DO Work Phone: [facility] 05-01-2019 zoster vaccine recombinant Good SALAM [facility] 02-20-2019 influenza nasal, unspecified formulation Alpa Mahadis DO Work Phone: [facility] 02-20-2019 influenza virus vaccine, unspecified formulation Good SALAM [facility] 01-30-2019 influenza nasal, unspecified formulation Alpa Mendis DO Work Phone: [facility] 12-06-2018 zoster vaccine recombinant Good SALAM [facility] 03-08-2018 influenza, high dose seasonal, preservative-free Alpa Mendis DO Work Phone: [facility] 03-17-2017 influenza virus vaccine, unspecified formulation Good SALAM [facility] 03-17-2017 influenza, high dose seasonal, preservative-free Alpa Mendis DO Work Phone: [facility] 01-30-2017 pneumococcal conjuga te vaccine, 13 valent Good SALAM [facility] 11-10-2015 hepatitis A and hepatitis B vaccine Good SALAM [facility] 10-06-2015 hepatitis A and hepatitis B vaccine Good SALAM [facility] 05-01-2015 tetanus toxoid, redu suresh diphtheria toxoid, and acellular pertussis vaccine, adsorbed Good SALAM [facility] 02-04-2015 influenza virus vaccine, unspecified formulation Good SALAM [facility] 02-04-2015 influenza, seasonal, injectable Alpa Tobinis DO Work Phone: [facility] 02-04-2015 pneumococcal polysaccharide vaccine, 23 valent Good SALAM [facility] 12-04-2009 haemophilus influenz ae type b conjugate and Hepatitis B vaccine Alpa Mendis DO Work Phone: [facility] 07-03-2009 haemophilus influenz ae type b conjugate and Hepatitis B vaccine Alpa Mendis DO Work Phone: [facility] 07-03-2009 novel [id number], preservative-free, injectable Alpa Mahadis DO Work Phone: [facility] NEGATED: Highlighted row has not occurred!01-06-2022 influenza virus vaccine, unspecified formulation Good SALAM [facility] Payers Date Payer Category Payer Private Health Insurance [id number] 2024 Unknown [id number] 2023 Self-pay [id number] 2023 Medicare (Managed Care) 1.2. [id number] 2023 Medicare [id number] 2015 Unknown MMO MMO MEDICARE SUPPLEMENT [id number] 2015-Present [phone] [address] [place] [address] Indemnity [id number]. [id number] 2015 Unknown [id number]. 1.13.159.2. [id number] 2010 Medicare MEDICARE MEDICAR E A AND B [id number] 2010-Present [phone] [address] [address] [place] [address] Medicare [id number]. [id number] 2010 Medicare [id number]. 1.13.159.2. [id number] 1959 Medicare [id number] 1959 Unknown [id number] 1946 Unknown [id number] 2.16.840.1.492853.3.579.2. 593 1946 Unknown [id number] 2.16.840.1.652515.3.579.2. 593 1946 Unknown [id number] 2.16.840.1.736715.3.579.2. 593 1946 Unknown [id number] 2.16.840.1.156651.3.579.2. 593 1946 Unknown [id number] 2.16.840.1.686029.3.579.2. 593 1946 Unknown [id number] 2.16.840.1.380309.3.579.2. 593 1946 Unknown [id number] 2.16.840.1.833983.3.579.2. 72 1946 Unknown [id number] 2.16.840.1.834076.3.579.2. 72 1946 Unknown [id number] 2.16.840.1.393266.3.579.2. 72 1946 Unknown [id number] 2.16.840.1.615963.3.579.2. 72 1946 Unknown [id number] 2.16.840.1.560886.3.579.2. 72 1946 Unknown [id number] 2.16.840.1.382855.3.579.2. 72 1946 Unknown [id number] 2.16.840.1.088858.3.579.2. 72 1946 Unknown [id number] 2.16.840.1.491520.3.579.2. 72 1946 Unknown [id number] 2.16.840.1.232569.3.579.2. 72 1946 Unknown [id number] 2.16.840.1.722717.3.579.2. 727 1946 Unknown [id number] 2.16.840.1.367632.3.579.2. 727 1946 Unknown [id number] 2.16.840.1.667013.3.579.2. 727 1946 Unknown [id number] 2.16.840.1.126171.3.579.2. 125 1946 Unknown [id number] 2.16.840.1.227002.3.579.2. 125 1946 Unknown [id number] 2.16.840.1.980130.3.579.2. 125 1946 Unknown [id number] 2.16.840.1.755372.3.579.2. 1258 1946 Unknown [id number] 2.16.840.1.165259.3.579.2. 125 1946 Unknown [id number] 2.16.840.1.417386.3.579.2. 125 1946 Unknown [id number] 2.16.840.1.215111.3.579.2. 125 1946 Unknown [id number] 2.16.840.1.255822.3.579.2. 125 1946 Unknown [id number] 2.16.840.1.417248.3.579.2. 125 1946 Unknown [id number] 2.16.840.1.982187.3.579.2. 125 1946 Unknown [id number] 2.16.840.1.633547.3.579.2. 125 1946 Unknown [id number] 2.16.840.1.125847.3.579.2. 125 1946 Unknown [id number] 2.16.840.1.049119.3.579.2. 1256 Unknown [id number] 2.16.840.1.188980.3.579.2. 1259 1946 Unknown [id number] 2.16.840.1.508800.3.579.2. 727 1946 Unknown [id number] 2.16.840.1.834414.3.579.2. 727 1946 Unknown [id number] 2.16.840.1.733878.3.579.2. 727 1946 Unknown [id number] 2.16.840.1.096769.3.579.2. 727 1946 Unknown [id number] 2.16.840.1.847355.3.579.2. 727 Unknown [id number] 2.16.840.1.823315.3.579.2. 531 Social History Date Type Detail Facility Start: 07-15-2021 End: 04-12-2024 Tobacco smoking status Ex-smoker (finding) [facility] Start: 02-27-2020 End: 09-14-2022 Sex Assigned At Male [facility] Start: 01-15-1964 End: 1986 History of tobacco use Current smoker [facility] Start: 01-15-1964 End: 1986 History of tobacco use Cigarette Smoker [facility] Start: 09-01-2011 End: 09-14-2022 Cigarettes smoked current (pack per day) - Reported 1.5 [facility] Start: 09-01-2011 End: 04-12-2024 Tobacco use and exposure Smokeless tobacco non-user [facility] Start: 09-10-2020 End: 09-27-2024 Alcohol intake Current drinker of alcohol (finding) [facility] Start: 09-01-2016 History SDOH Alcohol Comment has an occasional drink, previously drank 2-3 per day [facility] Start: 02-27-2020 History SDOH Financial 5 [facility] Start: 02-27-2020 History SDOH Food Worry 1 [facility] Start: 02-27-2020 History SDOH Transport Med 2 [facility] Start: 02-27-2020 Education 17 [facility] Start: 1946 Sex Assigned At Not on file C [facility] Start: 1946 Sex Assigned At Male F [facility] Tobacco smoking status Never [facility] Start: 04-12-2022 Gender identity Identifies as male gender (finding) [facility] Start: 04-12-2022 Sexual orientation Heterosexual (valentina cordero) [facility] (I/We) worried whether (my/our) food would run out before (I/we) got money to buy more. Never true [facility] Start: 11-15-2022 Tobacco smoking status NHIS Tobacco [...] drinks on 1 occasion? Never [facility] Start: 07-21-2018 End: 07-06-2024 Sex Male (finding) [facility] Sexual Orientation [facility] NEGATED: Highlighted rowStart: NINF History of tobacco use Passive smoker [facility] Medical Equipment Procedure Code Equipment Code Equipment Origin al Text Equipment Identifier Dates Cement Simplex P Tobramycin Bone Full Dose Radiopaque Preblend Sterile - [id number] Start: 08-06-2015 Comment on above: Description: Simplex P antibiotic bone cement with Tobramycin Cement Simplex P Tobramycin Bone Full Dose Radiopaque Preblend Sterile - [id number] Start: 09-08-2016 Baseplate 15mm Trabecular Metal Glenoid Reverse Sterile Shoulder - [id number] Start: 08-06-2015 Comment on above: Description: trabecu lar metal reverse shoulder system Sphere 36mm Trabecular Metal Polyethylene Glenoid Reverse Sterile Shoulder - [id number] Start: 08-06-2015 Comment on above: Description: Lucia trabecular metal reverse shoulder glenosphere Stem 14mm 3 Trabecular Metal Tivanium 130mm Humeral Reverse Sterile - [id number] Start: 08-06-2015 Sphere 36mm Trabecular Metal Polyethylene Glenoid Reverse Sterile Shoulder - [id number] Start: 09-08-2016 Baseplate 15mm Trabecular Metal Glenoid Reverse Sterile Shoulder - [id number] Start: 09-08-2016 Stem 14mm 3 Trabecular Metal Tivanium 130mm Humeral Reverse Sterile - [id number] Start: 09-08-2016 Restrictor Latit ude 8-15mm Cement Elbow - [id number] Start: 08-06-2015 Comment on above: Description: Cement restrictor Liner 36mm 7d Standard Offset Trabecular Metal Polyethylene 6+ Mm Shoulder - [id number] Start: 08-06-2015 Comment on above: Description: reverse shoulder poly liner Restrictor Latit ude 8-15mm Cement Elbow - [id number] Start: 09-08-2016 Liner 36mm 7d Standard Offset Trabecular Metal Polyethylene 6+ Mm Shoulder - [id number] Start: 09-08-2016 Screw Ncb Anatom ical Shoulder 4.5mm Protasul-64wf 36mm Bone Inverse Reverse - [id number] Start: 08-06-2015 Comment on above: Description: inverse -reverse screw Screw Ncb Anatom ical Shoulder 4.5mm Protasul-64wf 36mm Bone Inverse Reverse - [id number] Start: 08-06-2015 Comment on above: Description: inverse -reverse screw system Screw Ncb Anatom ical Shoulder 4.5mm Protasul-64wf 36mm Bone Inverse Reverse - [id number] Start: 09-08-2016 Screw Ncb Anatom ical Shoulder 4.5mm Protasul-64wf 42mm Bone Inverse Reverse - [id number] Start: 09-08-2016 Goals Date Patient Goal Desired Activity /State Personal health goal Functional Status Date Assessment Result Facility 05-22-2024 Functional Status N/A [facility] 02-12-2024 Functional Status N/A [facility] 11-01-2023 Functional Status N/A [facility] 06-24-2023 Functional Status N/A [facility] 02-02-2023 Functional Status N/A [facility] 07-27-2022 Functional Status N/A [facility] 07-15-2022 Functional Status N/A [facility] 05-20-2022 Are you deaf, or do you have serious difficulty hearing No 05/20/2022 8:18 AM Krissy Franco RN No [facility] 05-20-2022 Are you blind, or do you have serious difficulty seeing, even when wearing glasses No 05/20/2022 8:18 AM Krissy Franco RN No [facility] 05-20-2022 Do you have serious difficulty walking or climbing stairs No 05/20/2022 8:18 AM Krissy Franco RN No [facility] 05-20-2022 Do you have difficul ty dressing or bathing No 05/20/2022 8:18 AM Krissy Franco RN No [facility] 05-20-2022 Because of a physica l, mental, or emotional condition, do you have difficulty doing errands alone such as visiting a physician's office or shopping No 05/20/2022 8:18 AM Krissy Franco RN No [facility] 01-26-2022 Functional Status N/A [facility] 01-06-2022 Functional Status N/A [facility] 12-01-2021 Functional Status N/A [facility] Mental Status Date Assessment Result Facility 05-20-2022 Because of a physica l, mental, or emotional condition, do you have serious difficulty concentrating, remembering, or making decisions No 05/20/2022 8:18 AM Krissy Franco RN No [facility] Clinical Notes 07-27-2021 to 10-19-2024 Patient Teresa Aguilar APRN.CASHIERS SUPERVISOR - 10/19/2024 2:02 PM EDTTelephone Encounter - Teresa Godlberg APRN.CNP - 10/02/2024 3:15 PM EDTMendis, Alpa LopezDO - 09/23/2024 10:40 AM EDT Note Date & Type Note Facility 10-19-2024 Instructions Teresa Goldberg APRN.CNP - 10/19/2024 4:16 PM EDT I will discuss with Dr. Madrid and we will discuss a date for the ablation. Please continue with current medication regimen. documented in this encounter [facility] 10-19-2024 Note HNO ID: [id number] Author: TERESA GOLDBERG APRN.CNP Service: ? Author Type: Nurse Practitioner Type: Progress Notes Filed: 10/19/2024 18:02 Note Text: [facility] Department of Cardiovascular Medicine SECTION OF CARDIAC PACING and ELECTROPHYSIOLOGY OUTPATIENT VISIT DATE October 19, 2024 OUTPATIENT VISIT TYPE ESTABLISHED PRIMARY CARE PHYSICIAN: Ny Hurtado [address] [place] [address] [address] [place] [address] CHIEF COMPLAINT: follow up arrhythmia management HISTORY OF PRESENT ILLNESS: Mr. Peraza is a 79 year old male who presents today for evaluated by Dr. Pino, Dr. Au, Dr. Madrid for known LBBB, persistent atrial fibrillation (2002: s/p PVI in 2022, h/o antiarrhythmic medication Tikosyn, d/c due to renal fxn, current antiarrhythmic medication: amiodarone), s/p watchman (h/o GIB), Other PMH of hypertension, hyperlipidemia, h/o tobacco use, COPD, GERD, depression, h/o substance use (etoh), osteoarthritis, s/p facet radiofrequency ablation L4-5, L5-S1, [facility]cc anticoagulation. He states uses [employer] mobile to monitor arrhythmia, around August 09, 2024, when he converted to NSR, has been compliant with medications, wants to sleep all the time, no energy, has been feeling this way for one year, his psychiatrist changed his [...] lung disease (HCC) PAF (paroxysmal atrial fibrillation) (FORM[facility]LY [facility]) 2003 s/p ablation 2003 PUD (peptic ulcer disease) remote RLS (restless legs syndrome) Rotator cuff tear x2 each shoulder PAST SURGICAL HISTORY Procedure Laterality Date APPENDECTOMY HX BACK SURGERY HX L5, S1 removed CARDIAC CATH 03/26/13 40-50% disease in mid LAD CARDIOVERSION 11/14/15 CATHETER, ABLATION -2003 at [facility] HERNIA REPAIR HX 05/2011 left [...] mg 3 times daily for 1 week followe (more content not included)... [facility] 10-19-2024 History of Present illness Narrative Images from the original note were not included. s [facility] Department of Cardiovascular Medicine SECTION OF CARDIAC PACING and ELECTROPHYSIOLOGY OUTPATIENT VISIT DATE October 19, 2024 OUTPATIENT VISIT TYPE ESTABLISHED PRIMARY CARE PHYSICIAN: Ny Hurtado [address] [place] [address] CHIEF COMPLAINT: follow up arrhythmia management HISTORY OF PRESENT ILLNESS: Mr. Peraza is a 79 year old male who presents today for evaluated by Dr. Pino, Dr. Au, Dr. Madrid for known LBBB, persistent atrial fibrillation (2002: s/p PVI in [place]2022, h/o antiarrhythmic medication Tikosyn, d/c due to renal fxn, current antiarrhythmic medication: amiodarone), s/p watchman (h/o GIB), Other PMH of hypertension, hyperlipidemia, h/o tobacco use, COPD, GERD, depression, h/o substance use (etoh), osteoarthritis, s/p facet radiofrequency ablation L4-5, L5-S1, [facility]cc anticoagulation. He states uses [employer] mobile to monitor arrhythmia, around August 09, 2024, when he converted to NSR, has been compliant with medications, wants to sleep all the time, no energy, has been feeling this way for one year, his psychiatrist changed his [...] CARDIOVERSION 11/14/15 CATHETER, ABLATION A-Fib, 2003 at [facility] HERNIA REPAIR HX 05/2011 left [...] (FLONASE) 50 mcg/actuation nasal spray Use 1 [place] in each nostril once daily. coenzyme Q10 100 mg cap Take 100 mg by mouth once daily. albuterol HFA (PROAIR HFA) 90 mcg/actuation inhaler Inhale 2 Puffs as instructed every 6 hours as needed. Mjgousuyakg-Xqatelpeq-Qjx C-Mn 500-400 mg cap Take 1 capsule [...] Intolerance, Excessive Sweating, Frequent Urination, Frequent Thirst PHYSICAL EXAMINATION: General: Well appearing, in no [...] performed on 11/17/2023. (YOGESH) report comparison only. [facility]: 05-18-2024 FINDINGS: Hemodynamics: LV pressure: 101/EDP [...] distally as a small caliber obtuse marginal 1 branch which demonstrates 80% mid stenosis. RIGHT CORONARY [...] persistent atrial fibrillation (2002: s/p PVI in [place], 2022, h/o antiarrhythmic medication Tikosyn, d/c due [...] with more than 50% of the total xglb-dv-mxqm time of the visit in counseling / coordination of care. CONTACT INFORMATION: Teresa Goldberg APRN.CNP, 10/19/24 [facility] Gurwinder Salguero [facility] Cardiology Second Floor [address] [address] [place] [address] documented in this encounter [facility] 10-02-2024 Telephone encounter Note The following approved medication requests have been transmitted electronically. Requested Prescriptions Signed Prescriptions Disp Refills amLODIPine (NORVASC) 5 mg tablet 90 tablet 2 Sig: Take 1 tablet by mouth once daily. Authorizing Provider: ANGELI AU Ordering User: TERESA GOLDBERG APRN.CASHIERS SUPERVISOR [facility] Work Phone: 10-02-2024 Miscellaneous Notes The following approved medication requests have been transmitted electronically. Requested Prescriptions Signed Prescriptions Disp Refills amLODIPine (NORVASC) 5 mg tablet 90 tablet 2 Sig: Take 1 tablet by mouth once daily. Authorizing Provider: ANGELI AU Ordering User: TERESA GOLDBERG APRN.CASHIERS SUPERVISOR Received request for refill of the following medications: Requested Prescriptions Pending Prescriptions Disp Refills amLODIPine (NORVASC) 5 mg tablet 90 tablet 0 Sig: Take 1 tablet by mouth once daily. Patient requested a 90 day refill. Pharmacy verified and updated accordingly. Patient was last seen in cardiology office: 07/17/24 w/ Dr. Au. Upcoming appointment scheduled: 12/05/2024 [...] 1.22 mg/dL Final documented in this encounter [facility] 10-02-2024 Telephone encounter Note Received request for refill of the following medications: Requested Prescriptions Pending Prescriptions Disp Refills amLODIPine (NORVASC) 5 mg tablet 90 tablet 0 Sig: Take 1 tablet by mouth once daily. Patient requested a 90 day refill. Pharmacy verified and updated accordingly. Patient was last seen in cardiology office: 07/17/24 w/ Dr. Au. Upcoming appointment scheduled: 12/05/2024 [...] 1.77 (H) 0.73 - 1.22 mg/dL Final [facility] 10-01-2024 Telephone encounter Note Post Spine Injection phone call: 10/01/24 Called patient to review post procedure questions, but patient unavailable. Left vm for patient to give office a call back to go through questions. Zaask message also sent to patient and informed he can respond through message as well. [facility] 10-01-2024 Miscellaneous Notes Post Spine Injection phone call: 10/01/24 Called patient to review post procedure questions, but patient unavailable. Left vm for patient to give office a call back to go through questions. Mychart message also sent to patient and informed he can respond through message as well. documented in this encounter [facility] 09-23-2024 Note HNO ID: [id number] Author: ALPA RAM DO Service: ? Author Type: Physician Type: Progress Notes Filed: 09/23/2024 10:43 Note Text: Patient was unable to access the Zoom visit and he asked for a phone call visit. I called the patient twice, but it went straight to voicemail. I left a voicemail recommending him to send a mychart message with any questions/concerns, but otherwise we already have him planned for lumbar RFA and will see him for that and then for a f/u afterwards. Alpa Ram DO [facility] 09-23-2024 History of Present illness Narrative Patient was unable to access the Zoom visit and he asked for a phone call visit. I called the patient twice, but it went straight to voicemail. I left a voicemail recommending him to send a mychart message with any questions/concerns, but otherwise we already have him planned for lumbar RFA and will see him for that and then for a f/u afterwards. Alpa Ram DO documented in this encounter [facility] 09-10-2024 History of Present illness Narrative [facility] [place] Department of Cardiovascular Medicine VIRTUAL VIDEO VISIT NEW OUTPATIENT VISIT SERVICE DATE: 09/10/2024 Patient: Irena Peraza SERVICE TIME: 1:34 PM : 1945 This is a virtual video visit. It required patient-provider interaction for the medical decision making as documented below. Irena Peraza has consented to this video encounter. I have communicated my name and active licensure. The patient's identity and physical location were verified at the time of this visit. Either the patient or their legal printing supplies sales representative has been informed of the risks and benefits of -- and alternatives to -- treatment through a remote evaluation and consents to proceed with the evaluation remotely. CHIEF COMPLAINT AFib- consideration for ablation. HISTORY OF PRESENT ILLNESS Irena Peraza is a 79 year old male, pt of Dr Pino, with persistent AF h/o PVI in 2002 in [place], s/p Watchman in 2022 due to GI bleed, was on Tikosyn until 2022, due to renal dysfunction, h/o ETOH, melanoma, CAD, mild COPD, here for evaluation for AF ablation. Quit smoking 40 years ago, 30 pack years history. Feels very fatigue DCC in July 24 last 2 1/2 weeks, but not much improvement in symptoms. His AF is rate controlled. Intermittent LBBB QRS 134msec, though most QRS is narrow. Got 4 years ago Planning to sell his house 2 1/2 acres. He has another spine injection coming up and will stop his blood thinner end of the month. Started on amiodarone in May 2024. Was in CHF, reported AF RVR in 05/26, LVEF 35% Though since all his AF rates are controlled. PAST MEDICAL HISTORY Diagnosis Date Arthritis CAD [...] CARDIOVERSION 11/14/15 CATHETER, ABLATION A-Fib, 2003 at [facility] HERNIA REPAIR HX 05/2011 left [...] SURGERY 08/2015 reverse total shoulder TONSILLECTOMY HX FAMILY HISTORY Problem Relation Age of Onset [...] Shone disease; at age 6 days old Social History Tobacco Use Smoking status: Former Current packs/day: 0.00 Average packs/day: 1.5 packs/day for 15.0 years (22.5 ttl pk-yrs) Types: Cigarettes Start date: 05/02/1970 Quit date: 05/02/1985 Years since quittin.3 Smokeless tobacco: Never Substance Use Topics Alcohol use: Yes Alcohol/week: 10.0 standard drinks of alcohol Types: 10 Standard drinks or equivalent per week Comment: has an occasional drink, previously drank 2-3 per day Drug use: No ALLERGIES No Known Allergies CURRENT MEDICATIONS apixaban (ELIQUIS) 5 mg tab(s) Take 1 tablet by mouth two times a day. furosemide (LASIX) 20 mg tablet Take 1 tablet by mouth once daily. Can take additional 20 mg as needed for swelling or >2 lb weight gain overnight. atorvastatin (LIPITOR) 40 mg tablet Take 1 tablet by mouth once daily. Need appointment for future refills spironolactone (ALDACTONE) 25 mg tablet Take 1 tablet by mouth once daily. amLODIPine (NORVASC) 5 mg tablet Take 1 [...] (FLONASE) 50 mcg/actuation nasal spray Use 1 [place] in each nostril once daily. coenzyme Q10 100 mg cap Take 100 mg by mouth once daily. albuterol HFA (PROAIR HFA) 90 mcg/actuation inhaler Inhale 2 Puffs as instructed every 6 hours as needed. Jmgqpglpnyx-Cnkwowcct-Ila C-Mn 500-400 mg cap Take 1 capsule by mouth twice daily. REVIEW OF SYSTEMS: Constitutional: No weight loss, malaise or fevers. HEENT: Negative for frequent or significant headaches Respiratory: per HPI Cardiovascular: per HPI Gastrointestinal: Negative for abdominal discomfort, blood in stools or black stools or change in bowel habits Genitourinary: No history of dysuria, frequency, or incontinence Endocrine: Negative for cold or heat intolerance, polyuria, polydipsia and goiter Hematologic: Negative for prolonged bleeding, bruising easily or swollen nodes Neurologic: No history or headaches, syncope, paralysis, seizures or tremors Integumentary: Negative for lesions, rash, and itching. ASSESSMENT: Irena Peraza is a 79 year old male, pt of Dr Pino, with persistent AF h/o PVI in 2002 in [place], s/p Watchman in 2022 due to GI bleed, was on Tikosyn until 2022, due to renal dysfunction, h/o ETOH, melanoma, CAD, mild COPD, here for evaluation for AF ablation. PLAN (Active Outpatient Problems): Persistent AF: currently rate controlled. Previously reported LVEF 35% due to RVR with rate related LBBB abberancy, on amiodarone since 05/26, DCC 07/24, short lived, no improvement. Quit smoking 40 years ago, needs PFT. Recommend considering another DCC in October and see how he feels. If no symptoms improvement, then consider rate control strategy. He will keep his appt with Teresa in September. PVI candidacy will depend on PFT results. I personally spent 40 minutes in total time involved in the management and care of this patient. Eros Madrid MD September 10, 2024 1:34 PM documented in this encounter [facility] 09-10-2024 Note HNO ID: [id number] Author: EROS MADRID MD Service: ? Author Type: Physician Type: Progress Notes Filed: 09/10/2024 14:27 Note Text: [facility] [place] Department of Cardiovascular Medicine VIRTUAL VIDEO VISIT NEW OUTPATIENT VISIT SERVICE DATE: 09/10/2024 Patient: Irena Peraza SERVICE TIME: 1:34 PM : 1945 This is a virtual video visit. It required patient-provider interaction for the medical decision making as documented below. Irena Peraza has consented to this video encounter. I have communicated my name and active licensure. The patient's identity and physical location were verified at the time of this visit. Either the patient or their legal printing supplies sales representative has been informed of the risks and benefits of -- and alternatives to -- treatment through a remote evaluation and consents to proceed with the evaluation remotely. CHIEF COMPLAINT AFib- consideration for ablation. HISTORY OF PRESENT ILLNESS Irena Peraza is a 79 year old male, pt of Dr Pino, with persistent AF h/o PVI in 2002 in [place], s/p Watchman in 2022 due to GI bleed, was on Tikosyn until 2022, due to renal dysfunction, h/o ETOH, melanoma, CAD, mild COPD, here for evaluation for AF ablation. Quit smoking 40 years ago, 30 pack years history. Feels very fatigue DCC in July 24 last 2 1/2 weeks, but not much improvement in symptoms. His AF is rate controlled. Intermittent LBBB QRS 134msec, though most QRS is narrow. Got 4 years ago Planning to sell his house 2 1/2 acres. He has another spine injection coming up and will stop his blood thinner end of the month. Started on amiodarone in May 2024. Was in CHF, reported AF RVR in 05/26, LVEF 35% Though since all his AF rates are controlled. PAST MEDICAL HISTORY Diagnosis Date Arthritis CAD [...] CARDIOVERSION 11/14/15 CATHETER, ABLATION A-Fib, 2003 at [facility] HERNIA REPAIR HX 05/2011 left [...] SURGERY 08/2015 reverse total shoulder TONSILLECTOMY HX FAMILY HISTORY Problem Relation Age of Onset [...] Shone disease; at age 6 days old Social History Tobacco Use Smoking status: Former Current packs/day: 0.00 Average packs/day: 1.5 packs/day for 15.0 years (22.5 ttl pk-yrs) Types: Cigarettes Start date: 05/02/1970 Quit date: 05/02/1985 Years since quittin.3 Smokeless tobacco: Never Substance Use Topics Alcohol use: Yes Alcohol/week: 10.0 standard drinks of alcohol Types: 10 Standard drinks or equivalent per week Comment: has an occasional drink, previously drank 2-3 per day Drug use: No ALLERGIES No Known Allergies CURRENT MEDICATIONS apixaban (ELIQUIS) 5 mg tab(s) Take 1 tablet by mouth two times a day. furosemide (LASIX) 20 mg tablet Take 1 tablet by mouth once daily. Can take additional 20 mg as needed for swelling or >2 lb weight gain overnight. atorvastatin (LIPITOR) 40 mg tablet Take 1 tablet by mouth once daily. Need appointment for future refills spironolactone (ALDACTONE) 25 mg tablet Take 1 tablet by mouth once daily. amLODIPine (NORVASC) 5 mg tablet Take 1 tablet by mouth once daily. escitalopram oxalate (LEXAPRO) 5 mg tablet Take 5 mg by mouth once daily. losartan (COZAAR) 50 mg tablet Take 2 tablets by mouth once daily. amiodarone (more content not included)... [facility] 09-07-2024 Telephone encounter Note Patient calling regarding had called in 15 minutes ago to speak to cadet deck and was told office doesn't open till 8 am. Patient now states he was wrong and wants to speak to his spine physician because he has a productive cough after surgery about 10 days ago and believes that physician should be the one treating him for the cold/flu symptoms and wishes to speak with his office. . Conferenced to [employer] airconditioning plant operator, Diann, to speak with provider orthodontic band maker for Dr.P. Ram . GO TO THE EMERGENCY ROOM OR CALL 911 IF: * You develop any new symptoms * Your condition worsens * You are concerned or anxious about your condition for any other reason. If you have any questions, you can call Nurse salesperson corsets back. [facility] 09-07-2024 Miscellaneous Notes Patient calling regarding had called in 15 minutes ago to speak to cadet deck and was told office doesn't open till 8 am. Patient now states he was wrong and wants to speak to his spine physician because he has a productive cough after surgery about 10 days ago and believes that physician should be the one treating him for the cold/flu symptoms and wishes to speak with his office. . Conferenced to [facility] airconditioning plant operator, Diann, to speak with provider orthodontic band maker for Dr.P. Ram . GO TO THE EMERGENCY ROOM OR CALL 911 IF: * You develop any new symptoms * Your condition worsens * You are concerned or anxious about your condition for any other reason. If you have any questions, you can call Nurse salesperson corsets back. documented in this encounter [facility] 09-07-2024 Telephone encounter Note Patient calling to report cough with green sputum and thinks he may need an antibiotic prior to planned procedure, stated he is in a fib and was attempting to reach Dr. Angeli Au's office. Attempted to conference to Cardiology Answering Service [ ] to speak with provider orthodontic band maker for Dr. Au, but phone line rang without answer and then disconnected. Patient was advised of above, declined my offer to dial again, and stated he will call MD office when open, after 0800. GO TO THE EMERGENCY ROOM OR CALL 911 IF: * You develop any new symptoms * Your condition worsens * You are concerned or anxious about your condition for any other reason. If you have any questions, you can call back. [facility] 09-07-2024 Miscellaneous Notes Patient calling to report cough with green sputum and thinks he may need an antibiotic prior to planned procedure, stated he is in a fib and was attempting to reach Dr. Angeli Au's office. Attempted to conference to Cardiology Answering Service [ ] to speak with provider orthodontic band maker for Dr. Au, but phone line rang without answer and then disconnected. Patient was advised of above, declined my offer to dial again, and stated he will call MD office when open, after 0800. GO TO THE EMERGENCY ROOM OR CALL 911 IF: * You develop any new symptoms * Your condition worsens * You are concerned or anxious about your condition for any other reason. If you have any questions, you can call back. documented in this encounter [facility] 09-06-2024 Telephone encounter Note Nanoogot message sent to patient with Procedure Instructions. [facility] 09-06-2024 Miscellaneous Notes Accelahart message sent to patient with Procedure Instructions. documented in this encounter [facility] 08-31-2024 Telephone encounter Note Forwarding to provider. [facility] 08-31-2024 Miscellaneous Notes Forwarding to provider. documented in this encounter [facility] 08-29-2024 History of Present illness Narrative Images from [...] Allergies: No Known Allergies Past Medical History: Active Ambulatory Problems Diagnosis Date Noted Insomnia, unspecified Restless legs syndrome (RLS) Median neuropathy, right Back pain Brachial neuritis or radiculitis Pain in joint, upper arm Carpal tunnel syndrome Neck pain Obstructive sleep apnea Radiculopathy, lumbosacral region Resolved Ambulatory Problems Diagnosis Date Noted Acute idiopathic gout of left wrist 01/26/2023 Acute on chronic diastolic congestive heart failure ([facility]) 10/31/2015 Back pain with right-sided sciatica 01/26/2023 Flank pain 01/26/2023 Acute right-sided low back pain with right-sided sciatica 01/26/2023 Alcohol use 01/26/2023 Anemia due to blood loss 01/26/2023 Anemia 01/26/2023 Arthritis 01/26/2023 Osteoarthritis 08/06/2015 Biceps rupture, proximal 05/29/2015 BMI 30.0-30.9,adult 01/26/2023 Obesity, Class I, BMI 30-34.9 01/03/2018 BPH with urinary obstruction 01/26/2023 Colon polyps 01/26/2023 Chronic obstructive lung disease ([facility]) 01/26/2023 Cervical spine pain 01/26/2023 Cervical radiculopathy due to degenerative joint disease of spine 01/26/2023 Deformity of metatarsal 01/26/2023 Contracture, left ankle 01/26/2023 Perianal wart 01/26/2023 Erosion of intestine 01/26/2023 Elevated PSA 01/26/2023 Depression ([facility]) 01/26/2023 Enlarged prostate 01/26/2023 Degenerative cervical disc 01/26/2023 Gastroesophageal reflux disease 01/26/2023 Former smoker 01/26/2023 Past Medical History: Diagnosis Date Basal cell carcinoma COPD (chronic obstructive pulmonary disease) ([facility]) Degenerative disc disease, cervical Hammer toe 2001 Melanoma ([facility]) 08/2012 Pain in limb Rotator cuff syndrome 1992 Trigger finger Medications: Current Outpatient Medications: allopurinol (Zyloprim) 100 MG tablet, Take 100 mg by mouth Daily, Disp: , Rfl: amiodarone (Pacerone) 200 MG tablet, Take by mouth 1 (one) time each day at the same time, Disp: , Rfl: amLODIPine (Norvasc) 5 MG tablet, Take 5 mg by mouth in the morning., Disp: , Rfl: apixaban (Eliquis) 5 MG tablet, Take 5 mg by mouth in the morning and 5 mg before bedtime., Disp: , Rfl: aspirin 81 MG EC tablet, Take 81 mg by mouth in the morning. (Patient not taking: Reported on 08/16/2024), Disp: , Rfl: atenolol (Tenormin) 50 MG tablet, Take 50 mg by mouth Daily, Disp: , Rfl: atorvastatin (Lipitor) 40 MG tablet, Take 40 mg by mouth Daily, Disp: , Rfl: bisoprolol (Zebeta) 5 MG tablet, Take 5 mg by mouth 1 (one) time each day at the same time, Disp: , Rfl: dofetilide (Tikosyn) 500 MCG capsule, Take by mouth in the morning and before bedtime., Disp: , Rfl: escitalopram (Lexapro) 10 MG tablet, Take 10 mg by mouth Daily, Disp: , Rfl: fenofibrate (Triglide) 160 MG tablet, Take 160 mg by mouth Daily, Disp: , Rfl: fluticasone (Flonase) 50 MCG/ACT nasal spray, , Disp: , Rfl: Fluticasone Furoate-Vilanterol 100-25 MCG/ACT aerosol powder , , Disp: , Rfl: furosemide (Lasix) 20 MG tablet, Take 20 mg by mouth Daily, Disp: , Rfl: losartan (Cozaar) 50 MG tablet, Take 50 mg by mouth Daily, Disp: , Rfl: montelukast (Singulair) 10 MG tablet, Take 10 mg by mouth Daily, Disp: , Rfl: omeprazole (PriLOSEC) [address] capsule, Take 20 mg by mouth Daily, Disp: , Rfl: pregabalin (Lyrica) 50 MG capsule, Take 50 mg by mouth in the morning and 50 mg in the evening., Disp: , Rfl: rOPINIRole (Requip) 1 MG tablet, , Disp: , Rfl: spironolactone (Aldactone) 25 MG tablet, Take 25 mg by mouth 1 (one) time, Disp: , Rfl: tolterodine LA (Detrol LA) 4 MG 24 hr capsule, Take 4 mg by mouth Daily, Disp: , Rfl: Review of systems: Constitutional: [...] subungual debris. They were painful to palpation [id number] on the right [id number] on the left. VASC: DP /PT were nonpalpable bilateral. Capillary refill time < 3 seconds Digits 1-5 bilateral NEURO: [place] 5.07 monofilament was intact B/L. Vibratory [...] 10. DAMIAN Degroot documented in this encounter [facility] 08-23-2024 Note Oncology Progress No te Diagnoses Ordered: ONC Office Visit 30 Min Oncological History/ROS/PE/Assessment and Plan 78 year old male referred for anemia. He had iron studies in june 2021 which showed only mild iron deficiency. His hb then was 9.9. normal wbc and plt count. MCV 94. His b12, folate were normal. Follows with Dr. Badlwin for skin a few times per year. History of afib on eliquis and tikosyn. His outpatient meds at the time are allopurinol, atenolol, citalopram, eliquis, fenofibrate, lexapro, furosemide, lipitor, magnesium, moneteluckast, omeprazole, ranititidine, ropinirole, Tikosyn. EGD completed 07/27/2021 revealed multiple white exudates in esophagus???pathology revealed active Manny esophagitis, stomach biopsy revealed chronic inactive gastritis, PPI changes, negative for intestinal metaplasia, negative for H. pylori. Colonoscopy completed 07/27/2021 revealed hyperplastic polyp removed from cecum, hyperplastic polyp removed from descending colon, hemorrhoids - Dr. Sanabria recommended for patient to have repeat colonoscopy [...] well. Considering surgery on his back with [facility]. Some plans to monitor for a while and then make the decision. 08/23/24 he is not doing great lately. He is seeing Dr. Au and Dr. Pino an EP doc in [place]. he is back in afib. he is assymptomatic when he is in afib. he was on tikosyn, theys topped this and now on 5 new medications. hb 12.0, iron sat is 17%. he is back on eliquis in anticipation of cardioversion. (attempeted in june then back in afib afterwards). not taking iron pills for a year now. PHYSICAL EXAMINATION ECOG PS:1 General: Alert and [...] stool. wasnt working anyway secondary to malabsorption. july 2024, he is iron sat 17%, hb 12.0. No other cell line abnormalities. Atrial fibrillation. had watchman in may 2022 he is back in afib as of july 2024. Follow-up No qualifying data available cbc, cmp, b12, folate, iron studies, epo, esr in 6 months and prior to f/u in 12 months. spep sflc immunofixation prior to f/u. ok to continue no iron or a few tabs per week. Medications allopurinol 100 mg Tab, 100 mg= 1 tab(s), Oral, Daily amiodarone 200 mg Tab aspirin atenolol, 50 mg, Oral, Daily calcium citrate, 1500 mg, Oral, BID calcium-vitamin D, 1 tab, Oral, Daily Chondroitin-Glucosamine, 1 cap(s), Oral, Daily CoQ10, 100 mg, Oral, TID duloxetine 30 mg Cap-DR, 30 mg, Oral, Daily fenofibrate 160 mg oral tablet, 160 mg= 1 tab(s), Oral, Daily Flonase, 1 spray(s), Nasal, Daily, PRN fluticasone HFA 44 mcg/inh Inhaler, 2 puff(s), Inhalation, BID, PRN furosemide 20 mg Tab, 40 mg= 2 tab(s) gabapentin 300 mg Cap Levitra 20 mg Tab, 20 mg= 1 tab(s), Oral, As Directed, PRN, 3 refills Lipitor 40 mg Tab, 40 mg= 1 tab(s), Oral, Daily losartan 50 mg Tab [place], 1000 mg, Oral, BID montelukast 10 mg Tab, 10 mg= 1 tab(s), Oral, Daily omeprazole 40 mg Cap-EC, 40 mg= 1 cap(s), Oral, Every other day, PRN pregabalin 50 mg Cap, 50 mg= 1 cap(s), Oral, TID Requip 3 mg Tab, 3 mg= 1 tab(s), Oral, Bedtime Symbicort 80/4.5 inhalation aerosol with adapter, 2 puff(s), Inhalation, BID Tikosyn 500 mcg oral capsule, 500 mcg= 1 cap(s), Oral, BID tiZANidine 4 mg Tab tolterodine 4 mg Cap-ER, 4 mg= 1 cap(s), Oral, Daily, 2 refills Staging Information No information available Labs Common Labs Event Name Event Result Date/Time WBC 5.2 E9/L 08/21/24 RBC 3.8 E12/L Low 08/21/24 HGB 12 gm/dL Low 08/01 (more content not included)... [facility] 08-16-2024 History of Present illness Narrative Images from the original note were not included. Skin Check Location: Patient requests a full body skin examination Dermatologic history: history of Actinic Keratosis, history of Basal Cell Carcinoma, history of Melanoma, history of atypical mole(s) Last visit: 6 months ago Melanoma History Location: left chest Date of Melanoma dx: 09/06/2012 Melanoma details: Malignant Melanoma Breslow's depth: 0.64 mm Additional testing: excised by MD Bart Lesions: Location: scalp, left shoulder, back Duration: months Quality: itchy Modifying factors: aggravated by picking Associated symptoms: rough Treatments: none Established patient All pertinent medical history, medications, [...] Left arm Examined Lymphatics: Examined Hands Examined no cervical lymphadenopathy, no supraclavicular lymphadenopathy, no axillary lymphadenopathy Skin Exam 1. SEBORRHEIC KERATOSIS Generalized Stuck on verrucous, dunaway-brown papules and plaques. Patient was counseled regarding these benign growths. Removal is normally not necessary, but they may be removed if they are symptomatic or for cosmetic reasons. 2. ACTINIC KERATOSIS (8) Left Buccal Cheek, Left Forehead (3), Left Latter Day, Left Zygomatic Area, Right Parotid Area, Right Zygomatic Area Erythematous scaly papules Patient [...] limited to risks of scarring, darker or senior materials scientist pigmentary changes, recurrence, incomplete removal and infection. Method: Liquid nitrogen was used to treat the lesion(s) with two 5-10 second freeze-thaw cycles. Eyes were shielded using cotton pad during procedure Number of lesions treated: 8 Post-procedure instructions: Instructions were given orally and in writing. The office will be contacted if the lesion fails to resolve despite treatment, or if a side effect develops such as abnormal crusting, scabbing, redness or tenderness Cryotherapy, skin lesion - Left Buccal Cheek, Left Forehead (3), Left L[place], Left Zygomatic Area, Right Parotid Area, Right Zygomatic Area 3. SEBORRHEIC KERATOSIS, INFLAMED (6) Left Flank, Left Lower Back (4), Mid Back [place] and brown stuck on verrucous scaly papule with surrounding erythema The patient was informed that symptomatic seborrheic keratoses are benign growths that become inflamed, itchy, tender, traumatized, caught on clothing, or bleed. Symptomatic lesions can be treated with cryotherapy or curretage. Thicker lesions treated with cryotherapy may require more than one treatment. The patient was instructed to notify the office if abnormal redness or tenderness develops at the treatment site. Cryotherapy today, see procedure note. Diagnosis: Inflamed seborrheic keratosis Indication: Inflamed Consent: Verbal consent was obtained and risks were discussed, including, but not limited to risks of scarring, darker or senior materials scientist pigmentary changes, recurrence, incomplete removal and infection. Method: Liquid nitrogen was used to treat the lesion(s) with two 5-10 second freeze-thaw cycles Number of lesions treated: 6 Post-procedure instructions: Instructions were given orally and in writing. The office will be contacted if the lesion fails to resolve despite treatment, or if a side effect develops such as abnormal crusting, scabbing, redness or tenderness Cryotherapy, skin lesion - Left Flank, Left Lower Back (4), Mid Back 4. NEOPLASM OF UNSPECIFIED BEHAVIOR OF BONE, SOFT TISSUE, AND SKIN (2) Right Lower Leg - Posterior Irregularly pigmented papule Lesion biopsy Type of biopsy: tangential Informed consent: discussed and consent obtained Informed consent comment: The risks and benefits of the biopsy were discussed. Risks include but are not limited to bleeding, infection, scarring, pain, and nerve damage. An opportunity to ask questions prior to the procedure was permitted and all questions were answered. Patient was prepped and draped in usual sterile fashion: area cleansed with alcohol. Anesthesia: the lesion was anesthetized in a standard fashion Anesthetic: 1% lidocaine w/ epinephrine 1-100,000 buffered w/ 8.4% NaHCO3 Instrument used: DermaBlade Hemostasis achieved with: electrodesiccation Outcome: patient tolerated procedure well Outcome comment: The specimen was placed in a prelabeled formalin container to be sent for pathology Post-procedure details: sterile dressing applied and wound care instructions given Post-procedure details comment: Emphasized need to contact clinic for any signs of infection, uncontrollable bleeding, or complications. Dressing type: bandage Additional details: Photo taken Amount of lidocaine used: 1 cc Mid Occipital Scalp [place] papule Lesion biopsy Type of biopsy: tangential Informed consent: discussed and consent obtained Informed consent comment: The risks and benefits of the biopsy were discussed. Risks include but are not limited to bleeding, infection, scarring, pain, and nerve damage. An opportunity to ask questions prior to the procedure was permitted and all questions were answered. Patient was prepped and draped in usual sterile fashion: area cleansed with alcohol. Anesthesia: the lesion was anesthetized in a standard fashion Anesthetic: 1% lidocaine w/ epinephrine 1-100,000 buffered w/ 8.4% NaHCO3 Instrument used: DermaBlade Hemostasis achieved with: electrodesiccation Outcome: patient tolerated procedure well Outcome comment: The specimen was placed in a prelabeled formalin container to be sent for pathology Post-procedure details: sterile dressing applied and wound care instructions given Post-procedure details comment: Emphasized need to contact clinic for any signs of infection, uncontrollable bleeding, or complications. Dressing type: bandage Additional details: Photo taken Amount of lidocaine used: 1.0 cc 5. LENTIGINES Generalized Scattered dunaway macules in sun-exposed areas. The patient was informed that lentigines are benign pigmented lesions that occur on sun-exposed and sun-damaged skin. No treatment is necessary. Recommended regular use of broad spectrum sunscreen SPF 30 or higher 6. HISTORY OF MALIGNANT MELANOMA OF SKIN Left Chest No evidence of recurrence at [...] the previous melanoma scar. Next Visit: 6 months documented in this encounter [facility] 08-15-2024 Telephone encounter Note Will review patient with Dr. Pino upon his return 08/20/24. Further recommendations to be made at that time. Thank you Moni Mandujano APRN.CNP [facility] 08-15-2024 Miscellaneous Notes Will review patient with Dr. Pino upon his return 08/20/24. Further recommendations to be made at that time. Thank you Moni Mandujano APRN.CNP Pt wanted this message sent to both Dr. Au and Moni Mandujano CNP Pt had a cardioversion recently (performed by Dr. Calles) Just before the procedure, pt says Dr. Calles made a comment that he needs to be looking for a Process Controls Technician that does ablations and that he thought this pt was about due for another one (Last one was approx 20 years ago) With that being said; pt reports he is now back in Afib again as of Tuesday He had flown to [place] and before his flight back on Tuesday - he checked his KardioMobile and it showed Afib Continues to show Afib His B/P's are around 140's systolic HR's in the high 70's Today 148/70, 70 Compliant with all meds Pt feels this is a comment about an ablation should truly be considered Asking you to think about this and get back to him Also: Pt isn't coming in to see an JAYDEN until September and Dr. Au until Nov He feels this is too long to wait to be seen He's not in any acute distress right now; but wanted to be proactive Please follow up with him thanks [phone] vmx okay / prefers PHONE CALLS instead of mycharts documented in this encounter [facility] 08-15-2024 Telephone encounter Note Pt wanted this message sent to both Dr. Au and Moni Mandujano, CASHIERS SUPERVISOR Pt had a cardioversion recently (performed by Dr. Calles) Just before the procedure, pt says Dr. Calles made a comment that he needs to be looking for a Process Controls Technician that does ablations and that he thought this pt was about due for another one (Last one was approx 20 years ago) With that being said; pt reports he is now back in Afib again as of Tuesday He had flown to [place] and before his flight back on Tuesday - he checked his KardioMobile and it showed Afib Continues to show Afib His B/P's are around 140's systolic HR's in the high 70's Today 148/70, 70 Compliant with all meds Pt feels this is a comment about an ablation should truly be considered Asking you to think about this and get back to him Also: Pt isn't coming in to see an JAYDEN until September and Dr. Au until Nov He feels this is too long to wait to be seen He's not in any acute distress right now; but wanted to be proactive Please follow up with him thanks [phone] vmx okay / prefers PHONE CALLS instead of mycharts [facility] 08-15-2024 History of Present illness Narrative Images from the original note were not included. Subjective Irena Peraza is a 79 y.o. year old male Chief Complaint Patient presents with Back Pain Neck Pain Sleep Apnea Past Medical History: Diagnosis Date Acute idiopathic gout of left wrist 01/26/2023 Acute on chronic diastolic congestive heart failure ([facility]) 10/31/2015 Acute right-sided low back pain with [...] spine pain 01/26/2023 Chronic obstructive lung disease ([facility]/HCC) 01/26/2023 Colon polyps 01/26/2023 Contracture, left ankle 01/26/2023 COPD (chronic obstructive pulmonary disease) ([facility]) Deformity of metatarsal 01/26/2023 Degenerative cervical disc 01/26/2023 Degenerative disc disease, cervical Depression ([facility]) 01/26/2023 Elevated PSA 01/26/2023 Enlarged prostate 01/26/2023 Erosion of intestine 01/26/2023 Flank pain 01/26/2023 Former smoker 01/26/2023 Gastroesophageal reflux disease 01/26/2023 Hammer toe 2000 Insomnia, unspecified Median neuropathy, right Melanoma ([facility]) 08/2012 left chest; MM; breslows depth 0.64mm; excised by Dr. Angeles Neck pain Obesity, Class I, BMI 30-34.9 01/03/2018 Obstructive sleep apnea Osteoarthritis 08/06/2015 Pain in joint, upper arm Pain in limb Perianal wart 01/26/2023 Radiculopathy, lumbosacral region Restless legs syndrome (RLS) Rotator cuff syndrome 1992 Trigger finger Past Surgical History: Procedure Laterality Date BASAL CELL CARCINOMA EXCISION 08/2010 removed from nose BREAST LUMPECTOMY BUNIONECTOMY CARDIOVERSION 07/28/2018 done at [facility] CARPAL TUNNEL RELEASE DISC REMOVAL 1995 L5 S1 disc removed FOOT SURGERY FOOT SURGERY Left hammer toe, spurs, toe fixed HEART CATH 1998 ROTATOR CUFF REPAIR ROTATOR CUFF REPAIR Left 2016 ROTATOR CUFF REPAIR Left 1999 ROTATOR CUFF REPAIR Right SHOULDER SURGERY SHOULDER SURGERY [address] WATCHMAN FULL CONTRAST TOE SURGERY Family History Problem Relation Name Age of Onset Cancer Mother Mom Heart disease Father Social History Tobacco Use Smoking status: Former Current packs/day: 0.00 Average packs/day: 1 pack/day for 22.0 years (22.0 ttl pk-yrs) Types: Cigarettes Start date: 01/15/1964 Quit date: 1986 Years since quittin.5 Passive exposure: Never Smokeless tobacco: Not on file Substance Use Topics Alcohol use: Yes Alcohol/week: 19.0 - 20.0 standard drinks of alcohol Types: 5 Cans of beer, 10 Shots of liquor, 4 - 5 Standard drinks or equivalent per week Medication Documentation Review Audit Reviewed by Yareli Silva MA (Chute Operator) on 08/15/24 at 1411 Medication Order Taking? Sig Documenting Provider Last Dose Status allopurinol (Zyloprim) 100 MG tablet [id number] Yes Take 100 mg by mouth Daily Historical ProviderMD Active amiodarone (Pacerone) 200 MG tablet [id number] Yes Take by mouth 1 (one) time each day at the same time Historical ProviderMD Active amLODIPine (Norvasc) 5 MG tablet [id number] Yes Take 5 mg by mouth in the morning. MICHAEL Ny Active apixaban (Eliquis) 5 MG tablet [id number] Yes Take 5 mg by mouth in the morning and 5 mg before bedtime. Historical ProviderMD Active aspirin 81 MG EC tablet [id number] Take 81 mg by mouth in the morning. Patient not taking: Reported on 08/15/2024 Historical ProviderMD Active atenolol (Tenormin) 50 MG tablet [id number] Take 50 mg by mouth in the morning. Patient not taking: Reported on 08/15/2024 Historical ProviderMD Active atorvastatin (Lipitor) 40 MG tablet [id number] Yes Take 40 mg by mouth Daily Historical ProviderMD Active bisoprolol (Zebeta) 5 MG tablet [id number] Yes Take 5 mg by mouth 1 (one) time each day at the same time Historical ProviderMD Active dofetilide (Tikosyn) 500 MCG capsule [id number] Take by mouth 2 (two) times a day. Patient not taking: Reported on 08/15/2024 Historical Provider, Active escitalopram (Lexapro) 10 MG tablet [id number] Yes Take 10 mg by mouth Daily Historical ProviderMD Active fenofibrate (Triglide) 160 MG tablet [id number] Yes Take 160 mg by mouth Daily Historical Provider, Active fluticasone (Flonase) 50 MCG/ACT nasal spray [id number] Yes Historical Provider, Active Fluticasone Furoate-Vilanterol 100-25 MCG/ACT aerosol powder [id number] Yes Sean Almanzar DO Active furosemide (Lasix) 20 MG tablet [id number] Yes Take 20 mg by mouth Daily Sean Almanzar DO Active losartan (Cozaar) 50 MG tablet [id number] Yes Take 50 mg by mouth Daily MICHAEL Ny Active montelukast (Singulair) 10 MG tablet [id number] Yes Take 10 mg by mouth Daily Historical ProviderMD Active omeprazole (PriLOSEC) [address] capsule [id number] Yes Take 20 mg by mouth Daily Historical ProviderMD Active pregabalin (Lyrica) 50 MG capsule [id number] Take 50 mg by mouth in the morning and 50 mg in the evening. Sean Almanzar DO 12/11/23 2359 rOPINIRole (Requip) 1 MG tablet [id number] Yes Historical Provider, Active spironolactone (Aldactone) 25 MG tablet [id number] Yes Take 25 mg by mouth 1 (one) time Historical ProviderMD Active tolterodine LA (Detrol LA) 4 MG 24 hr capsule [id number] Yes Take 4 mg by mouth Daily Historical Provider, Active HPI Neck Pain -pain has been tolerable -states his neck pain is worse on left side -ROM is ok -he is having numbness and tingling in his fingers -this comes and goes -he denies any weakness or trouble with tenter -symptoms worse with weather changes Back Pain -low back pain -pain is almost constant -he is seeing [facility] sales recruitment specialist -he is getting injections and this helps for a few weeks -he may be getting an ablation depending on how he responds to injections MICHELE -using CPAP nightly -states that he did not use last week due being [place] -average sleep is about 6-10 hour -Depends on the night -states that he has been in Afib, back on Eliis -seeing [facility] for cardiology -new meds added -BP has been high -they did a CTA of the heart -he has ascending aortic aneurysm -he notes that the left ventricle is not pumping properly ROS Review of Systems Constitutional: Negative for chills, fatigue and fever. Eyes: Negative for visual disturbance. Respiratory: Negative for cough and shortness of breath. Cardiovascular: Negative for chest pain. Musculoskeletal: Positive for arthralgias, back pain, myalgias, neck pain and neck stiffness. Neurological: Negative for seizures, syncope and light-headedness. Psychiatric/Behavioral: Negative for confusion and hallucinations. The patient is not nervous/anxious. Objective Visit Vitals BP 148/70 (BP Location: Left arm, Patient Position: Sitting) Ht 5' 8 Wt 216 lb BMI 32.84 kg/m Smoking Status Former BSA 2.17 m Neurological Exam Mental Status Awake, alert and oriented to person, place and time. Oriented to person, place and time. Recent and remote memory are intact. Speech is normal. Language is fluent with no aphasia. Attention and concentration are normal. Cranial Nerves CN III, IV, : Normal lids and orbits bilaterally. Pupils equal round and reactive to light bilaterally. CN VII: Right: There is no facial weakness. Left: There is no facial weakness. CN VIII: Hearing is normal. CN XI: Shoulder shrug strength is normal. CN XII: Tongue midline without atrophy or fasciculations. Sensory Light touch is normal in upper and lower extremities. Coordination Fhoxgs-[id number]-pyhv, rapid alternating movements and ecqi-ds-tfuc normal bilaterally without dysmetria. Gait Antalgic. Motor Examination RUE Strength deltoid, biceps, triceps, wrist extensors, wrist extensors, wrist flexor, tenter strength 5/5. LUE Strength deltoid, biceps, triceps, wrist extensors, wrist extensors, wrist flexor, tenter strength 5/5. RLE Strength illopsoas, quadriceps, tibialis anterior, and gastrocnemius strength 5/5. LLE Strength illopsoas, quadriceps, tibialis anterior, and gastrocnemius strength 5/5. Tone Normal tone x4 extremities. Reflexes: RUE biceps reflex 2, LUE biceps reflex 2, RLE knee reflex 1, LLE knee reflex 1, Assessment and Plan MICHELE (obstructive sleep apnea) severe MICHELE and is on the CPAP. Most recent split night study noted that he responded well to a pressure of 61swM3M. He had increase in daytime fatigue and his hemoglobin was found to be 5. He is being followed for this. Of note, his data download also revealed an AHI of 9.1. He had retitration study done at [facility]. Patient is overall compliant with CPAP nightly and is doing well. 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 Neck pain He was receiving acupuncture and seeing a chiropractor. He is also seeing a chiropractor. He has since been following with Dr. Mcmahon. He would like to hold off on surgery and is no longer following with Dr. Mcmahon. He is planning to resume swimming and exercising at the gym to help with his mobility. Lumbar back pain He previously followed with Dr. Mcmahon and has had a series of ablations and has had some benefit . He is now following with a surgeon, Dr. Ram. Depression, unspecified depression type (CMS/HCC) Patient has been treated for depression with Cymbalta. This was started around his divorce about 1 year ago. He notes that he feels this dose is no longer helping and he is lacking motivation to do things that previously interested him. He was changed from Cymbalta to Lexapro by his psychiatrist. Plan: 1. No longer on Cymbalta and is now on Lexapro. 2. Continue to follow with Dr. Ram for possible ablation. 3. Continue to follow closely with cardiology for a fib. 4. He is back on Eliquis despite Watchman for stroke prevention. 5. Continue to follow with PCP for stroke risk factor management. 6. I counseled the patient on fall precautions. I discussed the high risk of trauma and debility associated with falls. Patient verbalized understanding. Follow up in 4-6 months documented in this encounter [facility] 08-15-2024 Telephone encounter Note Phoned patient and spoke with patient to confirm appointment for Irena Peraza for spine procedure on 08/28/24. Patient notified that [place] will call patient the night before with the time to arrive for injection. Patient verbalized understanding of the following: -Provided education on spine procedure and answered questions related to spine injection procedure. -Interactive Media Marketing Specialist is needed to drive patient home: Yes, patient aware entry driver operator will need to stay for procedure and drive him home. -NPO 6 hours prior to appointment, ok to take morning medications with sip of water. -Not to take any pain medications the day of injection to see how well injection works. -Do not take any NSAIDs/anti-inflammatories (mobic, ibuprofen, advil, aleve, etc) the day of procedure for all lumbar, hip, and sacroiliac joint procedures. Hold NSAIDs for 1 day prior to procedure for cervical cases. Allergies reviewed: Yes Allergy to IV contrast dye or steroids: No Taking any antiplatelet/anticoagulant (blood thinners): Chantell, patient aware he can continue his medications as normal. Taking aspirin 81mg: No Any open wounds/sores?: No Taking Antibiotics?: No Patient given number [phone], spine injections schedulers, if there is any need to reschedule/ change appointment during normal business hours. Active MyChart users were informed to read [employer] procedure instructions prior to appointment. AMBULATORY PATIENT EDUCATION TOPIC: SPINE INJECTION PROCEDURE, PRE-INJECTION AND POST- INJECTION INSTRUCTIONS READINESS TO LEARN COGNITIVE ABILITY: ALERT AND ORIENTED MOTIVATION TO LEARN: Eager FAMILY SUPPORT: Unable to assess - Family not present INSTRUCTION PROVIDED TO: Patient PATIENT LEARNS BEST BY: INDIVIDUAL INSTRUCTION FACTORS AFFECTING LEARNING: None PHYSICAL LIMITATIONS AFFECTING LEARNING: None LEARNING RESPONSE METHOD OF INSTRUCTION: TEACH BACK AND INDIVIDUAL INSTRUCTION PATIENT / FAMILY RESPONSE: VERBALIZED UNDERSTANDING OF PRE AND POST INJECTION INSTRUCTIONS T [facility] 08-15-2024 Miscellaneous Notes Phoned patient and spoke with patient to confirm appointment for Irena Peraza for spine procedure on 08/28/24. Patient notified that [place] will call patient the night before with the time to arrive for injection. Patient verbalized understanding of the following: -Provided education on spine procedure and answered questions related to spine injection procedure. -Interactive Media Marketing Specialist is needed to drive patient home: Yes, patient aware entry driver operator will need to stay for procedure and drive him home. -NPO 6 hours prior to appointment, ok to take morning medications with sip of water. -Not to take any pain medications the day of injection to see how well injection works. -Do not take any NSAIDs/anti-inflammatories (mobic, ibuprofen, advil, aleve, etc) the day of procedure for all lumbar, hip, and sacroiliac joint procedures. Hold NSAIDs for 1 day prior to procedure for cervical cases. Allergies reviewed: Yes Allergy to IV contrast dye or steroids: No Taking any antiplatelet/anticoagulant (blood thinners): Chantell, patient aware he can continue his medications as normal. Taking aspirin 81mg: No Any open wounds/sores?: No Taking Antibiotics?: No Patient given number [phone], spine injections schedulers, if there is any need to reschedule/ change appointment during normal business hours. Active [employer] users were informed to read [employer] procedure instructions prior to appointment. AMBULATORY PATIENT EDUCATION TOPIC: SPINE INJECTION PROCEDURE, PRE-INJECTION AND POST- INJECTION INSTRUCTIONS READINESS TO LEARN COGNITIVE ABILITY: ALERT AND ORIENTED MOTIVATION TO LEARN: Eager FAMILY SUPPORT: Unable to assess - Family not present INSTRUCTION PROVIDED TO: Patient PATIENT LEARNS BEST BY: INDIVIDUAL INSTRUCTION FACTORS AFFECTING LEARNING: None PHYSICAL LIMITATIONS AFFECTING LEARNING: None LEARNING RESPONSE METHOD OF INSTRUCTION: TEACH BACK AND INDIVIDUAL INSTRUCTION PATIENT / FAMILY RESPONSE: VERBALIZED UNDERSTANDING OF PRE AND POST INJECTION INSTRUCTIONS Called and left patient a message for patient to give office a call back regarding his spine procedure on 08/28/24. documented in this encounter [facility] 08-14-2024 Telephone encounter Note Called and left patient a message for patient to give office a call back regarding his spine procedure on 08/28/24. [facility] 08-13-2024 Telephone encounter Note Zaask message sent to patient with Procedure Instructions. [facility] 08-13-2024 Miscellaneous Notes [employer] message sent to patient with Procedure Instructions. documented in this encounter [facility] 08-07-2024 Telephone encounter Note Can we please move this patients ordered echo up to prior to appt with Teresa 10/19/24? Thanks Moni Mandujano APRN.CNP August 07, 2024 3:45 PM [facility] 08-07-2024 Miscellaneous Notes Can we please move this patients ordered echo up to prior to appt with Teresa 10/19/24? Thanks Moni Mandujano APRN.CNP August 07, 2024 3:45 PM documented in this encounter [facility] 07-30-2024 Telephone encounter Note Patient is s/p DCCV, on Amiodarone. Can we please arrange for EP follow up with Dr. Pino or JAYDEN in 4-6 weeks? Thanks Moni Mandujano APRN.CASHIERS SUPERVISOR [facility] 07-30-2024 Miscellaneous Notes Patient is s/p DCCV, on Amiodarone. Can we please arrange for EP follow up with Dr. Pino or JAYDEN in 4-6 weeks? Thanks Moni Mandujano APRN.CASHIERS SUPERVISOR documented in this encounter [facility] 07-26-2024 Note HNO ID: [id number] Author: BEE MARTINEZ MA Service: ? Author Type: Chute Operator Type: Progress Notes Filed: 07/26/2024 10:55 Note Text: Heart, Vascular AND Thoracic [place] Department of Cardiovascular Medicine OUTPATIENT VISIT TYPE NURSE VISIT PATIENT NAME: Irena Peraza DATE OF SERVICE: 07/26/2024 PRIMARY CAT WAGON OPERATOR: Irena Peraza is a 79 year old established patient who presents today for a nurse visit per Dr. Calles for an EKG post DCCV on 07/19/24 Patient taking medication as prescribed: Yes Took medication today: Yes VISIT VITAL SIGNS: BP 117/71 HR 70 99% RA Physician/JAYDEN notification and treatment plan: Showed EKG to Dr. Bunch he states it looks good NSR Nursing Plan: Patient education: Continue medications as prescribed and monitor with Kardia at home , Patient instructed to call and update the office if there are any changes in current condition. EKG has been uploaded to [facility] Patient verbalizes understanding of the plan: Yes. Patient's questions were addressed during the visit today: Yes Bee Martinez MA July 26, 2024 10:41 AM [facility] 07-17-2024 Instructions Angeli Au MD - 07/17/2024 2:32 PM EDT Echo at [facility] at next visit documented in this encounter [facility] 07-17-2024 Note HNO ID: [id number] Author: ANGELI AU MD Service: ? Author Type: Physician Type: Progress Notes Filed: 07/17/2024 14:41 Note Text: [facility] Department of Cardiovascular Medicine SECTION OF REGIONAL CARDIOLOGY OUTPATIENT VISIT DATE July 18, 2023 OUTPATIENT VISIT TYPE ESTABLISHED PRIMARY CARE PHYSICIAN: [place] [address] CHIEF COMPLAINT: Arrhythmia HISTORY OF PRESENT ILLNESS: Mr. Peraza is a pleasant 79 year old male here for cardiovascular follow-up of her Hx of Atrial Fib now s/p watchman device. On follow up visit 4 months following implantation he was seen by Dr Kemp (implanted the device) and was told to stop the apixaban and comtinue Aspirin 81mg. Scheduled for a 1 year YOGESH. He is a patient of Dr Au. 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 A week ago he was in the pool and he wasn't feeling well and he went to [place] ED. A CT chest was done and [...] by mouth once daily.Disp: 30 tabletRfl: 5 Tmtse-7-NCQ-EPA-Fish Oil 1,000 mg (120 mg-180 mg) capTake [...] fluticasone (FLONASE) 50 mcg/actuation nasal sprayUse 1 [place] in each nostril once daily.Disp: Rfl: 0 coenzyme Q10 100 mg capTake 100 mg by mouth once daily. Disp: Rfl: LORATADINE (CLARITIN ORAL)Take 1 tablet by mouth once daily.Disp: Rfl: albuterol HFA (PROAIR HFA) 90 mcg/actuation inhalerInhale 2 Puffs as instructed every 6 hours as needed.Disp: 1 InhalerRfl: 0 Ubnbchdplam-Mqsutuuys-Yfk C-Mn 500-400 mg capTake 1 capsule by [...] aorta is dilated with a maximal dimension (more content not included)... [facility] 07-17-2024 History of Present illness Narrative Images from the original note were not included. [facility] Department of Cardiovascular Medicine SECTION OF REGIONAL CARDIOLOGY OUTPATIENT VISIT DATE July 18, 2023 OUTPATIENT VISIT TYPE ESTABLISHED PRIMARY CARE PHYSICIAN: Scarlett Gaviria NP [address] [place] [id number] CHIEF COMPLAINT: Arrhythmia HISTORY OF PRESENT ILLNESS: Mr. Peraza is a pleasant 79 year old male here for cardiovascular follow-up of her Hx of Atrial Fib now s/p watchman device. On follow up visit 4 months following implantation he was seen by Dr Kemp (implanted the device) and was told to stop the apixaban and comtinue Aspirin 81mg. Scheduled for a 1 year YOGESH. He is a patient of Dr Au. 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 A week ago he was in the pool and he wasn't feeling well and he went to [place] ED. A CT chest was done and [...] by mouth once daily.^Disp: 30 tablet^Rfl: 5 Rakbn-8-QCV-EPA-Fish Oil 1,000 mg (120 mg-180 mg) cap^Take [...] fluticasone (FLONASE) 50 mcg/actuation nasal spray^Use 1 [place] in each nostril once daily.^Disp: ^Rfl: 0 coenzyme Q10 100 mg cap^Take 100 mg by mouth once daily. ^Disp: ^Rfl: LORATADINE (CLARITIN ORAL)^Take 1 tablet by mouth once daily.^Disp: ^Rfl: albuterol HFA (PROAIR HFA) 90 mcg/actuation inhaler^Inhale 2 Puffs as instructed every 6 hours as needed.^Disp: 1 Inhaler^Rfl: 0 Cakawbmewys-Qzatbmpzk-Ubn C-Mn 500-400 mg cap^Take 1 capsule by [...] the prior echocardiographic exam performed on 02/27/2020 ([facility]). On direct image comparison, mid ascending thoracic [...] in the AGUS with no visualization of cassie-device leak or device related thrombus. - There [...] ABNORMAL ECG Confirmed by MARIEL CRUZ MD ([id number]) on 09/15/2022 10:04:27 AM Assessment & Plan Atrial Fibrillation S/P Watchman Implantation GI Bleeding EVERTON Hilar Lymphadenopathy Impression: This is a 79 yo male with a PMHx of persistent AF on Dofetilide, Prior GI Bleed with continued break through bleeds, S/P Watchman implantation on 05/19/22, CAD, GERD, HTN, HLD. Pharm NST 2020: No evidence of inducible ischemia. YOGESH 09/14/22: Normal LVSF, AGUS Closure device (27mm Watchman FLX) seen without any cassie-device leak. Mild to Mod AR EKG showed NSR without any evidence of acute ischemia. LHC in 2012 showed mild disease in the prox LAD Labs from [place] showed an BUN/Cr of 15/1.34 with a [...] Take 1 tablet by mouth once daily. Hnxty-6-FJH-EPA-Fish Oil 1,000 mg (120 mg-180 mg) cap [...] (FLONASE) 50 mcg/actuation nasal spray Use 1 [place] in each nostril once daily. coenzyme Q10 100 mg cap Take 100 mg by mouth once daily. LORATADINE (CLARITIN ORAL) Take 1 tablet by mouth once daily. albuterol HFA (PROAIR HFA) 90 mcg/actuation inhaler Inhale 2 Puffs as instructed every 6 hours as needed. Pgxigshgfis-Tyxcigcte-Slp C-Mn 500-400 mg cap Take 1 capsule [...] INFORMATION: Michael Simms MD Cardiovascular Medicine Staff The patient underwent stress testing, 06/2023: CONCLUSIONS: [...] Gated Rest FBP LVEF % 59 54 DATE OF SERVICE: 05/18/2024 TIME OF SERVICE: 12:14 PM PROCEDURE PERFORMED: Left heart catheterization, selective coronary arteriogram, left ventricular pressure and moderate sedation. INDICATIONS: Planned Procedure: Left Heart Cath + Possible PCI Primary Indication for Procedure: Congestive Heart Failure, New Cardiomyopathy and new LBBB High Risk Features: History of Prior CABG: No History of Prior PCI: No Cardiomyopathy: Yes Anti-ischemic Meds in Past 2 Weeks: Beta blockers Ejection Fraction: 35% from Previous Echo Risk Appropriateness: Angina Class in Past 2 Weeks: Class III - Marked limitation of ordinary physical activity Cardiogenic Shock: NoHeart Failure: Yes, newly diagnosed Systolic Heart Failure, NYHA; III Stress Test Performed: None EKG Assessment: atrial fibrillation, new LBBB Family History of Premature CAD: None Evaluation for Preop Clearance: no TECHNIQUE: After informed consent was obtained and a time-out taken in the golf course laborer, a left heart catheterization was performed from the right radial artery using the Shanique technique and standard catheters. In addition, on completion of the procedure, using the TR band and pulse ox waveform monitoring, patent hemostasis was obtained at the right radial artery entry point. Moderate sedation was provided by Cardiology Interventional Nursing staff. Moderate sedation consisting of continuous EKG, pulse oximetry and cardiopulmonary monitoring, was performed by the Cardiology nurse, overseen by the performing physician for an intra-service time of 25 minutes. The patient was given 0.5 mg of Versed and 25 mcg of fentanyl intravenously at 12:14 hours and monitored continuously through 12:39 hours. FINDINGS: Hemodynamics: LV pressure: 101/EDP 5. Aortic [...] distally as a small caliber obtuse marginal 1 branch which demonstrates 80% mid stenosis. RIGHT CORONARY [...] coronary artery and posterior descending branch disease. The patient required hospitalization, May 2024, at [facility], for decompensated heart failure with reduced ejection fraction. Please see extensive note above. Blood pressure 122/66, pulse 84, height 177.8 cm (5' 10 ), weight 97.3 kg (214 lb 8.1 oz), SpO2 97%. Clinical cardiac examination was unchanged from previous. The patient is scheduled to undergo cardioversion in 48 hours and will follow in the office with me in October 2024, at which visit a repeat echocardiogram will be obtained. After reviewing his current guideline directed medical therapy, I see no reason to make any changes at this time. I spent a total of 35 minutes on the date of the service which included preparing to see the patient, avnh-tz-ulzy patient care, completing clinical documentation, performing a medically appropriate examination, counseling and educating the patient/family/caregiver and ordering medications, tests or procedures. Paf (paroxysmal atrial fibrillation) (formerly [facility]) (primary encounter diagnosis) Lbbb (left bundle branch block) Chronic hfref (heart failure with reduced ejection fraction) (formerly [facility]) Coronary artery disease involving [place] coronary artery of [place] heart without angina pectoris Aortic dilatation (formerly [facility]) Irb 21-1031 watchaman flx real world evidence (watch rwe) pi: dr. marcos bermudez Obesity, class i, bmi 30-34.9 Angeli Au MD documented in this encounter [facility] 07-12-2024 Telephone encounter Note Elmer is calling Angeli Au MD today asking if he should see Dr. Au before his cardioversion? Please advise. OK to lvm or MyChart message. Patient has been identified by name and birthdate. Duration of symptoms: N/A Person calling: self Call patient at: on cell [phone] (home) [phone] (cell) Was an appointment scheduled: No Closing statement: Results or non-symptom based questions: Thank you for calling [facility], your call will be returned within the next business day. Maria Antonia Cosme Pss [facility] 07-12-2024 Miscellaneous Notes Elmer is calling Angeli Au MD today asking if he should see Dr. Au before his cardioversion? Please advise. OK to lvm or MyChart message. Patient has been identified by name and birthdate. Duration of symptoms: N/A Person calling: self Call patient at: on cell [phone] (home) [phone] (cell) Was an appointment scheduled: No Closing statement: Results or non-symptom based questions: Thank you for calling [facility], your call will be returned within the next business day. Maria Antonia Cosme Pss documented in this encounter [facility] 07-06-2024 Telephone encounter Note Called and spoke to patient per below, he verbalized understanding. [facility] 07-06-2024 Miscellaneous Notes Called and spoke to patient per below, he verbalized understanding. I reviewed the message Recommendation: -patient ok to take prednisone -would recommend patient have no flu symptoms prior to the cardioversion, he should be symptom free prior to the scheduled cardioversion, anesthesia will not complete the procedure, unless they have recovered from the infection. Thank you Teresa Goldberg APRN.CASHIERS SUPERVISOR Patient calling back. States he went to the local urgent care in [facility]. Was found to have Flu A and bronchitis. Denies chest pain or shortness of breath Was prescribed Amoxicillin 500mg twice daily for 5 days. Also prescribed prednisone for 5 days. Was instructed to check with Cardiology before starting the prednisone since he is scheduled for cardioversion on 07/11/24 Please call [phone] Hoping not to have to postpone the cardioversion GO TO THE EMERGENCY ROOM OR CALL 911 IF: * You develop any new symptoms * Your condition worsens * You are concerned or anxious about your condition for any other reason. If you have any questions, call back. Spoke with patient,relayed information from Jacqueline Tamayo. Patient in agreement will follow up with PCP. Patient calling with additional information regarding below message. He noticed while laying on his side, both left and right, he can hear himself wheezing on exhale. No other new or worsening symptoms. GO TO THE EMERGENCY ROOM OR CALL 911 IF: * You develop any new symptoms * Your condition worsens * You are concerned or anxious about your condition for any other reason. If you have any questions, call back. Patient calling. He is scheduled for a cardioversion 07/11. He is calling to report that last night, walking in and out of gnosticism he got short of breath and had to stop to catch his breath. That is very unusual for him. Had to stop after 25 to 30 yds. Since then he has been walking around the house with no shortness of breath. No dizziness or lightheadedness. Very tired but has been. No chest pain or pressure or heaviness. No edema in hands or abdomen, lower legs very slightly swollen which he states is the same as usual for him. Weights: 06/26: 210 lbs 06/27: 210 lbs 07/03: 209 lbs Today: 204 lbs -He takes 20 mgs of Lasix daily. For a few days he tried taking 2 lasix a day-unsure why. Urine output is normal. BP today is 136/71, 78. No palpitations. A cough started over the weekend, approx 6 days ago. No cold symptoms. No fever. Productive of dark yellow initially. Now it is a pale green/pope color. Denies any blood, not pink/frothy. -taking Mucinex. He asks: -Is there anything he should be taking for the cough? The new shortness of breath with exertion? -He hopes this won't interfere with his upcoming cardioversion. -He is on Lexapro 5 mg for depression. His psychiatrist would like to increase it to 10 mg but wants him to ask cardiology first. Does that sound ok? He declines to schedule an appt at this time. Prefers to ask for recommendations if possible. documented in this encounter [facility] 07-06-2024 Telephone encounter Note I reviewed the message Recommendation: -patient ok to take prednisone -would recommend patient have no flu symptoms prior to the cardioversion, he should be symptom free prior to the scheduled cardioversion, anesthesia will not complete the procedure, unless they have recovered from the infection. Thank you Teresa Goldberg APRN.CASHIERS SUPERVISOR [facility] 07-06-2024 Telephone encounter Note Patient calling back. States he went to the local urgent care in [facility]. Was found to have Flu A and bronchitis. Denies chest pain or shortness of breath Was prescribed Amoxicillin 500mg twice daily for 5 days. Also prescribed prednisone for 5 days. Was instructed to check with Cardiology before starting the prednisone since he is scheduled for cardioversion on 07/11/24 Please call [phone] Hoping not to have to postpone the cardioversion GO TO THE EMERGENCY ROOM OR CALL 911 IF: * You develop any new symptoms * Your condition worsens * You are concerned or anxious about your condition for any other reason. If you have any questions, call back. [facility] 07-06-2024 Telephone encounter Note Spoke with patient,relayed information from Jacqueline Tamayo. Patient in agreement will follow up with PCP. [facility] 07-05-2024 Telephone encounter Note Patient calling with additional information regarding below message. He noticed while laying on his side, both left and right, he can hear himself wheezing on exhale. No other new or worsening symptoms. GO TO THE EMERGENCY ROOM OR CALL 911 IF: * You develop any new symptoms * Your condition worsens * You are concerned or anxious about your condition for any other reason. If you have any questions, call back. [facility] 07-05-2024 Telephone encounter Note Patient calling. He is scheduled for a cardioversion 07/11. He is calling to report that last night, walking in and out of gnosticism he got short of breath and had to stop to catch his breath. That is very unusual for him. Had to stop after 25 to 30 yds. Since then he has been walking around the house with no shortness of breath. No dizziness or lightheadedness. Very tired but has been. No chest pain or pressure or heaviness. No edema in hands or abdomen, lower legs very slightly swollen which he states is the same as usual for him. Weights: 06/26: 210 lbs 06/27: 210 lbs 07/03: 209 lbs Today: 204 lbs -He takes 20 mgs of Lasix daily. For a few days he tried taking 2 lasix a day-unsure why. Urine output is normal. BP today is 136/71, 78. No palpitations. A cough started over the weekend, approx 6 days ago. No cold symptoms. No fever. Productive of dark yellow initially. Now it is a pale green/pope color. Denies any blood, not pink/frothy. -taking Mucinex. He asks: -Is there anything he should be taking for the cough? The new shortness of breath with exertion? -He hopes this won't interfere with his upcoming cardioversion. -He is on Lexapro 5 mg for depression. His psychiatrist would like to increase it to 10 mg but wants him to ask cardiology first. Does that sound ok? He declines to schedule an appt at this time. Prefers to ask for recommendations if possible. [facility] 07-02-2024 Telephone encounter Note Spoke to patient he has been coughing since yesterday and today. His ribs are hurting. Would like to cancel his injection. Patient knows on medication and should contact when wants to reschedule. I am going to send [employer] message to make it easier to get in touch with me. [facility] 07-02-2024 Miscellaneous Notes Spoke to patient he has been coughing since yesterday and today. His ribs are hurting. Would like to cancel his injection. Patient knows on medication and should contact when wants to reschedule. I am going to send [employer] message to make it easier to get in touch with me. documented in this encounter [facility] 07-02-2024 History of Present illness Narrative Images from the original note were not included. Patient: Irena Peraza : 1945 PCP: Noms Provider MD Rizwana SUBJECTIVE This is a 79 y.o. male that presents today for a chief complaint of pain about the left ankle and foot. Patient states proximally 3 days ago he was walking in his house when he turned and twisted the ankle and foot region going into an elevator. The area became red warm swollen and painful. Had difficulty walking and performing activities of daily living. The patient heard a pop he also felt a pop. Had difficulty bearing weight after the injury. With the emergency department radiographs were taken they did not determine if a fracture dislocation was noted. He has been immobilized in a pneumatic walking boot. The had an MRI which revealed the following: he states the foot is feeling better with the Unna boot and being immobilized in a pneumatic walking boot doing significantly better as tailor's by his feeling significantly better as well.. MRI FOOT W/O CONTRAST LEFT Exam Date/Time: 06/12/2024 08:44 EST Reason for Exam: M79.672 Report IMPRESSION: Degenerative changes as discussed, especially involving the midfoot at the tarsometatarsal joints. Diffuse subcutaneous edema, most extensive dorsally. Other findings as discussed. HISTORY: Left foot pain. TECHNIQUE: Routine MRI of the left foot without contrast COMPARISON: None RESULT: Bone Marrow: No evidence for fracture, osteomyelitis, or marrow replacing process. Subcutaneous Tissues: Diffuse subcutaneous edema, most extensive dorsally. No distinct loculated collection. Joints: Advanced degenerative changes within the midfoot involving the tarsometatarsal joints with extensive subchondral cystic change and subchondral edema. Rounded cystic lesion between the bases of the first and second metatarsals dorsally measuring around 1.5 cm, likely representing ganglion cyst. Moderate degenerative changes within the forefoot, especially involving the first MTP joint and IP joints. Tendons: Grossly intact flexor and extensor tendons on the large ajikw-oa-aouy. Mild distal Achilles tendinosis. Mild peroneal longus tendinosis. Plantar Plates: Plantar plates are intact-appearing. Intermetatarsal Spaces: No evidence of Ramos's neuroma. Lisfranc Ligament: Intact. Plantar Aponeurosis: Appears intact. Muscles: Mild diffuse fatty infiltration. Other: No other significant abnormality This patient presents today chief complaint of painful elongated nails digits 1 through 10. They cause marked limitation in ambulation due to pain and pressure from shoe gear. Still has complaining of pain and swelling about the right 5th metatarsal head with bursal formation noted there is mild erythema and pain with direct palpation of the 5th metatarsal head laterally he has a prominent tailor's bunion in that region Allergies: No Known Allergies Past Medical History: Past Medical History: Diagnosis Date Acute idiopathic gout of left wrist 01/26/2023 Acute on chronic diastolic congestive heart failure ([facility]) 10/31/2015 Acute right-sided low back pain with [...] spine pain 01/26/2023 Chronic obstructive lung disease ([facility]) 01/26/2023 Colon polyps 01/26/2023 Contracture, left ankle 01/26/2023 COPD (chronic obstructive pulmonary disease) ([facility]) Deformity of metatarsal 01/26/2023 Degenerative cervical disc 01/26/2023 Degenerative disc disease, cervical Depression ([facility]) 01/26/2023 Elevated PSA 01/26/2023 Enlarged prostate 01/26/2023 Erosion of intestine 01/26/2023 Flank pain 01/26/2023 Former smoker 01/26/2023 Gastroesophageal reflux disease 01/26/2023 Hammer toe 2000 Insomnia, unspecified Median neuropathy, right Melanoma ([facility]) 08/2012 left chest; MM; breslows depth 0.64mm; [...] (two) times a day., Disp: , Rfl: fenofibrate (Triglide) 160 MG [...] mouth in the morning., Disp: , Rfl: ROS: Constitutional: Denies fever, chills, nausea, vomiting GI: Denies abdominal pain, cramping, loose stool, gastric ulcers Musculoskeletal: Denies low back pain, knee pain, systemic arthritis Neurologic: Denies burning, tingling, transient paralysis OBJECTIVE Physical examination: Vascular: Dorsalis pedis posterior tibial pulses are palpable bilateral, no edema noted Neuro: Gibbon-Tonny 5.07 monofilament intact, vibratory sensation intact Derm: All hair growth noted skin temperature is warm to cool knees to toes We are significant swelling noted circumferentially around the left ankle and foot region with mild warmth and erythema noted. Mild ecchymosis is noted as well nails 1 through 10 are thickened elongated yellow and crumbly with subungual debris and painful to palpation 13954 on the right [id number] on the left Musculoskeletal: Muscle strength +5/5 all intrinsic and extrinsic muscles tested significant less pain with direct palpation of the Lisfranc's joint pain at the 2nd metatarsocuneiform joint pain of the ATF and CF ligament. No rupture noted of the Achilles tendon. Significant pain with resisted inversion and plantar flexion of the foot. No ascending cellulitis or lymphangitis. ASSESSMENT 1. Lisfranc dislocation, left, initial encounter 2. Sprain of tarsal ligament of foot, left, initial encounter 3. Tailor's bunion of right foot 4. Other enthesopathy of right foot and ankle PLAN I Educated the patient on here grade 3 ankle sprain as well as possible Lisfranc's fracture dislocation on the left. Patient is doing significantly better as the cortisone injection. Ankle serially significantly better he is returned to regular shoe gear follow up with me p.r.n. DAMIAN Degroot documented in this encounter [facility] 06-20-2024 Telephone encounter Note Phoned patient and spoke with patient to confirm appointment for Irena Peraza for spine procedure on 07/03/24. Patient notified that [place] will call patient the night before with the time to arrive for injection. Patient verbalized understanding of the following: -Provided education on spine procedure and answered questions related to spine injection procedure. 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 -NPO 6 hours prior to appointment, ok to take morning medications with sip of water. -Not to take any pain medications the day of injection to see how well injection works. -Do not take any NSAIDs/anti-inflammatories (mobic, ibuprofen, advil, aleve, etc) the day of procedure for all lumbar, hip, and sacroiliac joint procedures. Hold NSAIDs for 1 day prior to procedure for cervical cases. Allergies reviewed: Yes Allergy to IV contrast dye or steroids: No and not allergic to shellfish. Taking any antiplatelet/anticoagulant (blood thinners): Yes, Chantell, patient informed he can continue his medication for this procedure. Taking aspirin 81mg: No Any open wounds/sores?: No Taking Antibiotics?: No Patient given number [phone], spine injections schedulers, if there is any need to reschedule/ change appointment during normal business hours. Active MyChart users were informed to read MyChart procedure instructions prior to appointment. AMBULATORY PATIENT EDUCATION TOPIC: SPINE INJECTION PROCEDURE, PRE-INJECTION AND POST- INJECTION INSTRUCTIONS READINESS TO LEARN COGNITIVE ABILITY: ALERT AND ORIENTED MOTIVATION TO LEARN: Eager FAMILY SUPPORT: Unable to assess - Family not present INSTRUCTION PROVIDED TO: Patient PATIENT LEARNS BEST BY: INDIVIDUAL INSTRUCTION FACTORS AFFECTING LEARNING: None PHYSICAL LIMITATIONS AFFECTING LEARNING: None LEARNING RESPONSE METHOD OF INSTRUCTION: TEACH BACK AND INDIVIDUAL INSTRUCTION PATIENT / FAMILY RESPONSE: VERBALIZED UNDERSTANDING OF PRE AND POST INJECTION INSTRUCTIONS [facility] 06-20-2024 Miscellaneous Notes Phoned patient and spoke with patient to confirm appointment for Irena Peraza for spine procedure on 07/03/24. Patient notified that [place] will call patient the night before with the time to arrive for injection. Patient verbalized understanding of the following: -Provided education on spine procedure and answered questions related to spine injection procedure. 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 -NPO 6 hours prior to appointment, ok to take morning medications with sip of water. -Not to take any pain medications the day of injection to see how well injection works. -Do not take any NSAIDs/anti-inflammatories (mobic, ibuprofen, advil, aleve, etc) the day of procedure for all lumbar, hip, and sacroiliac joint procedures. Hold NSAIDs for 1 day prior to procedure for cervical cases. Allergies reviewed: Yes Allergy to IV contrast dye or steroids: No and not allergic to shellfish. Taking any antiplatelet/anticoagulant (blood thinners): Yes, Chantell, patient informed he can continue his medication for this procedure. Taking aspirin 81mg: No Any open wounds/sores?: No Taking Antibiotics?: No Patient given number [phone], spine injections schedulers, if there is any need to reschedule/ change appointment during normal business hours. Active MyChart users were informed to read [facility] [facility] procedure instructions prior to appointment. AMBULATORY PATIENT EDUCATION TOPIC: SPINE INJECTION PROCEDURE, PRE-INJECTION AND POST- INJECTION INSTRUCTIONS READINESS TO LEARN COGNITIVE ABILITY: ALERT AND ORIENTED MOTIVATION TO LEARN: Eager FAMILY SUPPORT: Unable to assess - Family not present INSTRUCTION PROVIDED TO: Patient PATIENT LEARNS BEST BY: INDIVIDUAL INSTRUCTION FACTORS AFFECTING LEARNING: None PHYSICAL LIMITATIONS AFFECTING LEARNING: None LEARNING RESPONSE METHOD OF INSTRUCTION: TEACH BACK AND INDIVIDUAL INSTRUCTION PATIENT / FAMILY RESPONSE: VERBALIZED UNDERSTANDING OF PRE AND POST INJECTION INSTRUCTIONS documented in this encounter [facility] 06-19-2024 History of Present illness Narrative Patient: Irena Peraza : 1945 PCP: Noms Provider MD Rizwana SUBJECTIVE This is a 79 y.o. male that presents today for a chief complaint of pain about the left ankle and foot. Patient states proximally 3 days ago he was walking in his house when he turned and twisted the ankle and foot region going into an elevator. The area became red warm swollen and painful. Had difficulty walking and performing activities of daily living. The patient heard a pop he also felt a pop. Had difficulty bearing weight after the injury. With the emergency department radiographs were taken they did not determine if a fracture dislocation was noted. He has been immobilized in a pneumatic walking boot. The had an MRI which revealed the following: he states the foot is feeling better with the Unna boot and being immobilized in a pneumatic walking boot MRI FOOT W/O CONTRAST LEFT Exam Date/Time: 06/12/2024 08:44 EST Reason for Exam: [id number] Report IMPRESSION: Degenerative changes as discussed, especially involving the midfoot at the tarsometatarsal joints. Diffuse subcutaneous edema, most extensive dorsally. Other findings as discussed. HISTORY: Left foot pain. TECHNIQUE: Routine MRI of the left foot without contrast COMPARISON: None RESULT: Bone Marrow: No evidence for fracture, osteomyelitis, or marrow replacing process. Subcutaneous Tissues: Diffuse subcutaneous edema, most extensive dorsally. No distinct loculated collection. Joints: Advanced degenerative changes within the midfoot involving the tarsometatarsal joints with extensive subchondral cystic change and subchondral edema. Rounded cystic lesion between the bases of the first and second metatarsals dorsally measuring around 1.5 cm, likely representing ganglion cyst. Moderate degenerative changes within the forefoot, especially involving the first MTP joint and IP joints. Tendons: Grossly intact flexor and extensor tendons on the large auhfq-ao-ecer. Mild distal Achilles tendinosis. Mild peroneal longus tendinosis. Plantar Plates: Plantar plates are intact-appearing. Intermetatarsal Spaces: No evidence of Ramos's neuroma. Lisfranc Ligament: Intact. Plantar Aponeurosis: Appears intact. Muscles: Mild diffuse fatty infiltration. Other: No other significant abnormality This patient presents today chief complaint of painful elongated nails digits 1 through 10. They cause marked limitation in ambulation due to pain and pressure from shoe gear. Still has complaining of pain and swelling about the right 5th metatarsal head with bursal formation noted there is mild erythema and pain with direct palpation of the 5th metatarsal head laterally he has a prominent tailor's bunion in that region Allergies: No Known Allergies Past Medical History: [...] ankle 01/26/2023 COPD (chronic obstructive pulmonary disease) ([facility] Deformity of metatarsal 01/26/2023 Degenerative cervical disc 01/26/2023 Degenerative disc disease, cervical Depression ([facility]) 01/26/2023 Elevated PSA 01/26/2023 Enlarged prostate 01/26/2023 Erosion of intestine 01/26/2023 Flank pain 01/26/2023 Former smoker 01/26/2023 Gastroesophageal reflux disease 01/26/2023 Hammer toe 2000 Insomnia, unspecified Median neuropathy, right Melanoma ([facility]) 08/2012 left chest; MM; breslows depth 0.64mm; [...] mouth in the morning., Disp: , Rfl: ROS: Constitutional: Denies fever, chills, nausea, vomiting GI: Denies abdominal pain, cramping, loose stool, gastric ulcers Musculoskeletal: Denies low back pain, knee pain, systemic arthritis Neurologic: Denies burning, tingling, transient paralysis OBJECTIVE Physical examination: Vascular: Dorsalis pedis posterior tibial pulses are palpable bilateral, no edema noted Neuro: Gibbon-Tonny 5.07 monofilament intact, vibratory sensation intact Derm: All hair growth noted skin temperature is warm to cool knees to toes We are significant swelling noted circumferentially around the left ankle and foot region with mild warmth and erythema noted. Mild ecchymosis is noted as well nails 1 through 10 are thickened elongated yellow and crumbly with subungual debris and painful to palpation [id number] on the right [id number] on the left Musculoskeletal: Muscle strength +5/5 all intrinsic and extrinsic muscles tested significant less pain with direct palpation of the Lisfranc's joint pain at the 2nd metatarsocuneiform joint pain of the ATF and CF ligament. No rupture noted of the Achilles tendon. Significant pain with resisted inversion and plantar flexion of the foot. No ascending cellulitis or lymphangitis. DIAGNOSTIC ULTRASOUND 12 MEGAHERTZ LINEAR PROBE REVEALED: hypoechoic capsulitis about the right 5th metatarsophalangeal joint bursa formation noted as well secondary to his tailor's bunion ASSESSMENT 1. Lisfranc dislocation, left, initial encounter 2. Other enthesopathy of right foot and ankle 3. Tailor's bunion of right foot 4. Onychomycosis 5. Pain in left foot 6. Pain in left toe(s) PLAN I Educated the patient on here grade 3 ankle sprain as well as possible Lisfranc's fracture dislocation on the left. I recommended rest ice elevation and compression. I recommended the patient continue with his pneumatic walking boot. He is to rest ice and elevate I explained to him he does have degenerative arthritis Lisfranc's joint fracture dislocation was noted. I educated the patient on the MRI findings as well. I recommended a cortisone injection into the right 5th metatarsophalangeal joint bursa to help with the pain related to his tailor's bunion The patient was injected with 1 cc of 2% lidocaine plain and 1 cc of Kenalog 10 the ultrasonic guidance. A 12 megahertz linear probe was used for the injection in order to ensure exact placement and to avoid injection into underlying subcutaneous tissue. The patient was educated on proper foot care as well as the etiology of onychomycosis. I educated the patient on proper shoe gear as well. Today the nails were debrided both in length and thickness 1 through 10 follow up 2 weeks for reassessment. Haris Sutton DPM FACFAS documented in this encounter [facility] 06-16-2024 Telephone encounter Note Zaask message sent to patient with Procedure Instructions. [facility] 06-16-2024 Miscellaneous Notes Nanoogot message sent to patient with Procedure Instructions. documented in this encounter [facility] 06-14-2024 Telephone encounter Note Called and spoke to patient and scheduled his cardioversion at [facility] with Dr Natarajan on July 11. Gave patient instructions and sent mychart,. Follow up scheduled. [facility] 06-14-2024 Miscellaneous Notes Called and spoke to patient and scheduled his cardioversion at [facility] with Dr Natarajan on July 11. Gave patient instructions and sent mychart,. Follow up scheduled. Elmer is calling Moni Mandujano APRN.CNP today with concern regarding Results - CTA. Pt states he is just leaving [facility] from having the scan done. Pt states he was told it would be 3-5 days for the image to be read. Pt states he knows this was of urgent nature and asks if provider can get results back any sooner. Please advise. Patient has been identified by name and birthdate. Duration of symptoms: N/A Person calling: self Call patient at: at home [phone] (home) [phone] (cell) Was an appointment scheduled: No Closing statement: Results or non-symptom based questions: Thank you for calling [facility], your call will be returned within the next business day. Mary Almanzar documented in this encounter [facility] 06-12-2024 Note HNO ID: [id number] Author: ALPA RAM, DO Service: ? Author Type: Physician Type: Progress Notes Filed: 06/16/2024 16:31 Note Text: [facility] - Medical Spine Established Patient SUBJECTIVE HISTORY OF PRESENT ILLNESS: Irena Peraza is a 79 year old male who presents for f/u of low back pain. Last visit: continue PT HEP, BL lumbar MBB ordered. Patient underwent BL L4-5 and L5-S1 facet joint diagnostic blocks and had 90% relief during the diagnostic timeframe and then the pain returned to baseline. Pain is now located bilateral L>R low back, radiates to left buttock. Still gets intermittent numbness in left foot, sometimes and less so in right foot. Pain is ranging 3-8/10, worse in the morning, better with movement. Since last visit patient has been undergoing evaluation/management for his heart due to fatigue, planning on cardioversion, had cardiac cath, CTA chest. Following with Cardiology. Seeing a therapist due to feeling depressed from his health and is now off Cymbalta and on Lexapro instead. Now also has a left foot/ankle injury and is in a boot and had MRI this morning. Initial visit 06/22/23: Reports low back pain [...] naps and avoid his tasks too often. 01/16/24: Patient is s/p repeat BL L5-S1 TFESI. [...] left foot when washing in the shower. PAIN EVALUATION 06/12/2024 0554 Pain Level: 6 Pain Location: Leg-Left Description: Numbness;Sharp Duration Amount of Time: 7 Duration Units: Minutes Frequency: Intermittent Intervention/Comfort measure: Medication;Other: See comment Pain Radiation: As above Aggravating Factors: Standing, leaning forward Transfers Alleviating Factors: Stretching Sitting Child's pose Pain Ratio: midline lumbosacral back Current Treatment: Medications Tylenol 650mg 2 pills PRN Therapies PT HEP 3 times per week Prior Treatment: Medications Gabapentin 300 mg TID - mild benefit, causing dry mouth and mild increase in chronic BLE edema Lyrica 50 mg TID - noted fatigue, lack of energy/motivation Cymbalta 60mg - d/c by therapist d/t switched anti (more content not included)... [facility] 06-12-2024 History of Present illness Narrative Images from the original note were not included. [facility] - Medical Spine Established Patient SUBJECTIVE HISTORY OF PRESENT ILLNESS: Irena Peraza is a 79 year old male who presents for f/u of low back pain. Last visit: continue PT HEP, BL lumbar MBB ordered. Patient underwent BL L4-5 and L5-S1 facet joint diagnostic blocks and had 90% relief during the diagnostic timeframe and then the pain returned to baseline. Pain is now located bilateral L>R low back, radiates to left buttock. Still gets intermittent numbness in left foot, sometimes and less so in right foot. Pain is ranging 3-8/10, worse in the morning, better with movement. Since last visit patient has been undergoing evaluation/management for his heart due to fatigue, planning on cardioversion, had cardiac cath, CTA chest. Following with Cardiology. Seeing a therapist due to feeling depressed from his health and is now off Cymbalta and on Lexapro instead. Now also has a left foot/ankle injury and is in a boot and had MRI this morning. Initial visit 06/22/23: Reports low back pain [...] naps and avoid his tasks too often. 01/16/24: Patient is s/p repeat BL L5-S1 TFESI. [...] left foot when washing in the shower. PAIN EVALUATION 06/12/2024 0554 Pain Level: 6 Pain Location: Leg-Left Description: Numbness;Sharp Duration Amount of Time: 7 Duration Units: Minutes Frequency: Intermittent Intervention/Comfort measure: Medication;Other: See comment Pain Radiation: As above Aggravating Factors: Standing, leaning forward Transfers Alleviating Factors: Stretching Sitting Child's pose Pain Ratio: midline lumbosacral back Current Treatment: Medications Tylenol 650mg 2 pills PRN Therapies PT HEP 3 times per week Prior Treatment: Medications Gabapentin 300 mg TID - mild benefit, causing dry mouth and mild increase in chronic BLE edema Lyrica 50 mg TID - noted fatigue, lack of energy/motivation Cymbalta 60mg - d/c by therapist d/t switched antidepressants Therapies PT: [facility], Rachell Gilliam PT, 06/28-08/26/23, [...] press up minimal pain and no peripheralization. Acupuncture for the neck Prior spine interventions: -02/14/24 Dr. Ram: BL L4-5 and L5-S1 facet joint diagnostic blocks - 90% relief during the diagnostic timeframe -12/20/23 Dr. Ram: BL L5-S1 TFESI - [...] the neck, maybe 5 years ago at [place] -4-5 years ago he recalls having lumbar spine injections Prior spine surgery: L5-S1 discectomy in Previously treated by: -Podiatry Dr. Haris Sutton at [facility] 2024 for grade 3 ankle sprain left w/ possible Lisfranc fx/dislocation - rec Unna boot, MRI, RICE, Medrol. -Recently seen by PA working with Spine Surgeon Dr. Al Wiley in [place] and was planning water PT. -Spine Medicine Dr. Bellamy. 2019 for cervical spine. Has had RFA locally and can pursue that. Try ROM exercises. Trial of Acupuncture for pain. PMH: PUD, GERD Afib s/p Watchman procedure, off Eliquis now, planning for cardioversion CAD CHF COPD Depressed mood - on Lexapro h/o cancer: Melanoma PSH: PAST SURGICAL HISTORY Procedure Laterality Date APPENDECTOMY HX BACK SURGERY HX L5, S1 removed CARDIAC CATH 03/26/13 40-50% disease in mid LAD CARDIOVERSION 11/14/15 CATHETER, ABLATION A-Fib, 2003 at [facility] HERNIA REPAIR HX 05/2011 left [...] No-Job Dissatisfaction No-Financial Disincentives Patient Entered Questionnaires 11/09/2023 01/16/2024 06/12/2024 Spine Questions Pain Location: Lower back Lower back Lower back Pain Duration: 1 to 5 years Pain over last 6 months: At least half the days in the past 6 months Symptoms from neck/cervical spine: No Yes Yes Employment Status: Retired Retired 08/28/2023 01/16/2024 06/12/2024 Spine Red Flags Any type of cancer: Yes Yes Yes Unexplained fever: No No No Bowel or bladder disfunction: No No No Unintentional weight loss: No No No Osteoporosis: Yes Yes No 01/16/2024 06/12/2024 Neck Questionnaires Benzel Modified DANIEL Score 16 (Mild Myelopathy Symptoms) Incomplete PROMIS Score Percentiles 11/09/2023 01/16/2024 06/12/2024 Physical Health Physical Function Percentile 12 8 12 Sleep Percentile 54 38 54 Fatigue Percentile 4 1 3 Pain Interference Percentile 54 10 2 11/09/2023 01/16/2024 06/12/2024 PROMIS SOCIAL ROLE SCORE Social Role Satisfaction Percentile 10 7 7 08/28/2023 01/16/2024 06/12/2024 PROMIS Global Health Scale Physical Health Percentile 4 10 4 Mental Health Percentile 13 5 5 Patient-reported Percentiles provide an indication of how the patient's score ranks in relation to the general population. Higher percentile rankings indicate better function/quality of life. 50th percentile is the average of the general population and indicates half of respondents had a worse score. Depression Screenin11/09/2023 01/16/2024 06/12/2024 PHQ-9 Score 15 11 12 06/12/2024 01/16/2024 11/09/2023 PHQ-9 Self Harm Question 9 Not at [...] ACTIVE PROBLEM LIST Paf (Paroxysmal Atrial Fibrillation) ([facility]) Former Smoker Obstructive Lung Disease (Hcc) Hyperlipemia Pud (Peptic Ulcer Disease) Gerd (Gastroesophageal Reflux Disease) Carpal Tunnel Syndrome Hx of Neck Disorder Rotator Cuff Tear Arthritis Depression Alcohol Use Lprd (Laryngopharyngeal Reflux Disease) Chronic Throat Clearing Biceps Rupture, Proximal Contracture of Shoulder Rotator Cuff Tear Arthropathy Complete Tear of Left Rotator Cuff Melanoma ([facility]) Htn (Hypertension), Benign Cervical Spine Pain Osteoarthritis [...] of Lumbar Region With Radiculopathy Lumbar Radiculopathy Lumbar Spondylosis Lbbb (Left Bundle Branch Block) Acute On Chronic Systolic Chf (Congestive Heart Failure) (Hcc) Dilated Cardiomyopathy (Hcc) PAST MEDICAL HISTORY Diagnosis Date Arthritis CAD [...] CARDIOVERSION 11/14/15 CATHETER, ABLATION A-, 2003 at [facility] HERNIA REPAIR HX 05/2011 left [...] date: 05/02/1970 Quit date: 05/02/1985 Years since quittin.1 Smokeless [...] old ALLERGIES No Known Allergies CURRENT MEDICATIONS: escitalopram oxalate (LEXAPRO) 5 mg tablet Take 5 mg by mouth once daily. spironolactone (ALDACTONE) 25 mg tablet Take 1 tablet by mouth once daily. losartan (COZAAR) 50 mg tablet Take 2 tablets by mouth once daily. amiodarone (PACERONE) 200 mg tablet 200 mg 3 times daily for 1 week followed by 200 mg 2 times daily for 3 weeks followed by 200 mg daily thereafter bisoprolol (ZEBETA) 5 mg tablet Take 1 tablet by mouth two times a day. furosemide (LASIX) 20 mg tablet Take 1 tablet by mouth once daily. Can take additional 20 mg as needed for swelling or >2 lb weight gain overnight. atorvastatin (LIPITOR) 40 mg tablet Take 1 tablet by mouth once daily. Need appointment for future refills omega-3/dha/epa/fish oil (OMEGA-3 ORAL) Take by mouth once daily. ketoconazole (NIZORAL) 2 % cream ADVAIR DISKUS 100-50 mcg/dose inhaler Inhale as [...] (FLONASE) 50 mcg/actuation nasal spray Use 1 [place] in each nostril once daily. coenzyme Q10 100 mg cap Take 100 mg by mouth once daily. albuterol HFA (PROAIR HFA) 90 mcg/actuation inhaler Inhale 2 Puffs as instructed every 6 hours as needed. Ekbgbizbaut-Fhwtpuend-Ckd C-Mn 500-400 mg cap Take 1 capsule by mouth twice daily. acetaminophen 650 mg CR tablet Every 12 hours amoxicillin (AMOXIL) 500 mg capsule TAKE 2 CAPSULES BY MOUTH now then TAKE 1 CAPSULE BY MOUTH EVERY 6 HOURS UNTIL GONE DULoxetine (CYMBALTA) 60 mg capsule Take 1 capsule by mouth every afternoon. fluticasone-vilanterol (BREO ELLIPTA) 100-25 mcg/dose inhaler INHALE 1 PUFF BY MOUTH DAILY omega-3 acid ethyl esters (LOVAZA) 1 gram capsule Take 1,000 mg by mouth. REVIEW OF SYSTEMS: 14 systems reviewed and otherwise negative unless mentioned above. OBJECTIVE: PHYSICAL EXAM BP 118/75 (BP Site: Left Arm, BP Cuff Size: Large Adult) Pulse 78 Temp 36.7 C (98 F) (Oral) Ht 177.8 cm (5' 10 ) Wt 93.9 kg (207 lb) SpO2 99% BMI 29.70 kg/m GENERAL APPEARANCE: Well nourished, well developed, [...] palpation lumbar spine SPINE ROM: LUMBAR ROM: Flexion to lower legs without pain. Extension limited with pain. Endrange left rotation causes pain on right side. WFL in lumbar spine without pain. Pain with sit to stand. MUSCLE BULK: Normal and symmetrical in the upper & lower extremities. MUSCLE TONE: Normal. MOTOR: 5/5 throughout BLE, except left foot/ankle not tested due to in boot for recent injury SENSORY: sensation intact to light touch BLE REFLEXES: 2+ patellar; Trace BL achilles; 1+ medial hamstring on right and 2+ on left GAIT: Non-antalgic. Balance currently limited by wearing left orthopedic boot STRAIGHT LEG TEST: negative BL Hip: ROM WFL BL SI joint: Negative ANSLEY BL Lumbar facet loading: Positive left worse than right Data Review: All images/reports listed below were [...] Chronic bilateral low back pain without sciatica ASSESSMENT: Irena Peraza is a 79 year old male with PMH of of A-fib s/p Watchman procedure, former smoker with COPD, CHF, PUD, GERD, and prior L5-S1 discectomy in the , presenting for f/u of chronic low back pain and foot numbness. MRI shows severe canal narrowing at L4-5 with anterolisthesis of L4 on 5, disc desiccation of L5-S1, multi level foraminal narrowing worse at L4-5 and L5-S1 and facet hypertrophy of L3-4, L4-5, and L5-S1. Has not improved with PT, HEP. Unable to tolerate Gabapentin and Lyrica. Previously treated with BL L5-S1 TFESI with partial sustained relief. Pain is now BL L>R low back to left buttock. Still gets intermittent numbness in left foot, sometimes and less so in right foot. He underwent BL L4-5 and L5-S1 facet joint diagnostic blocks and had 90% relief during the diagnostic timeframe and then the pain returned to baseline. Patient is interested in repeating the facet joint blocks to see if he is a candidate for RFA. Repeat injections ordered. PLAN: 1) Imaging/Diagnostic Studies: -Imaging reviewed as above. 2) Therapy/Rehabilitation: -Continue PT HEP as tolerated -Activities and exercise as tolerated. 3) Pharmacological Management: -no changes 4) Spine/MSK Interventions: -Repeat diagnostic blocks for the bilateral L4-5 and L5-S1 facet joints - patient had at least 90% relief with the first procedure. 5) Consultations: -None 6) Follow -up: -After injections -Patient instructed to call/seek urgent medical care with worsening of symptoms or change of neurological status. 7) Future treatment considerations: -Proceed to radiofrequency ablation if second diagnostic blocks are successful for the bilateral L4-5 and L5-S1 facet joints -Consult Spine Surgery if not improving with interventional options - patient prefers to avoid this for now. SIGNATURE: Alpa Ram DO PATIENT NAME: Irena Peraza DATE: June 12, 2024 TIME: 3:15 PM documented in this encounter [facility] 06-11-2024 History of Present illness Narrative Images from the original note were not included. Patient: Irena Peraza : 1945 PCP: Noms Provider MD Rizwana SUBJECTIVE This is a 79 y.o. male that presents today for a chief complaint of pain about the left ankle and foot. Patient states proximally 3 days ago he was walking in his house when he turned and twisted the ankle and foot region going into an elevator. The area became red warm swollen and painful. Had difficulty walking and performing activities of daily living. The patient heard a pop he also felt a pop. Had difficulty bearing weight after the injury. With the emergency department radiographs were taken they did not determine if a fracture dislocation was noted. He has been immobilized in a pneumatic walking boot. Allergies: No Known Allergies Past Medical History: [...] spine pain 01/26/2023 Chronic obstructive lung disease ([facility]) 01/26/2023 Colon polyps 01/26/2023 Contracture, left ankle 01/26/2023 COPD (chronic obstructive pulmonary disease) ([facility]) Deformity of metatarsal 01/26/2023 Degenerative cervical disc 01/26/2023 Degenerative disc disease, cervical Depression ([facility]) 01/26/2023 Elevated PSA 01/26/2023 Enlarged prostate 01/26/2023 Erosion of intestine 01/26/2023 Flank pain 01/26/2023 Former smoker 01/26/2023 Gastroesophageal reflux disease 01/26/2023 Hammer toe 2000 Insomnia, unspecified Median neuropathy, right Melanoma ([facility]) 08/2012 left chest; MM; breslows depth 0.64mm; excised by Dr. Angeles Neck pain Obesity, Class I, BMI 30-34.9 01/03/2018 Obstructive sleep apnea Osteoarthritis 08/06/2015 Pain in joint, upper arm Pain in limb Perianal wart 01/26/2023 Radiculopathy, lumbosacral region Restless legs syndrome (RLS) Rotator cuff syndrome 1993 Trigger finger Medications: [...] mouth in the morning., Disp: , Rfl: ROS: Constitutional: Denies fever, chills, nausea, vomiting GI: Denies abdominal pain, cramping, loose stool, gastric ulcers Musculoskeletal: Denies low back pain, knee pain, systemic arthritis Neurologic: Denies burning, tingling, transient paralysis OBJECTIVE Physical examination: Vascular: Dorsalis pedis posterior tibial pulses are palpable bilateral, no edema noted Neuro: Gibbon-Tonny 5.07 monofilament intact, vibratory sensation intact Derm: All hair growth noted skin temperature is warm to cool knees to toes We are significant swelling noted circumferentially around the left ankle and foot region with mild warmth and erythema noted. Mild ecchymosis is noted as well Musculoskeletal: Muscle strength +5/5 all intrinsic and extrinsic muscles tested significant pain with direct palpation of the Lisfranc's joint pain at the 2nd metatarsocuneiform joint pain of the ATF and CF ligament. No rupture noted of the Achilles tendon. Significant pain with resisted inversion and plantar flexion of the foot. No ascending cellulitis or lymphangitis. XRAY: Three views were taken today AP/MO/LAT foot: No fractures or dislocations seen Small elizabeth fracture noted at the 2nd metatarsal cuneiform joint with a step-off noted Lisfranc's fracture dislocation noted. Possible nondisplaced fracture of the 4th metatarsal ASSESSMENT 1. Lisfranc dislocation, left, initial encounter 2. Left foot pain 3. Sprain of anterior talofibular ligament of left ankle, initial encounter PLAN I Educated the patient on here grade 3 ankle sprain as well as possible Lisfranc's fracture dislocation on the left. I recommended rest ice elevation and compression. Today I immobilized the patient and a multilayer compressive Unna boot. He would the rest ice and elevate. Educated him on the radiographic findings my concern at this point as possible Lisfranc's fracture dislocation with rupture of the Lisfranc's ligament. Pain was referred for an MRI to determine if a fracture dislocation in this. MRI be necessary for possible surgical intervention and/or to dictate his treatment protocol he will follow up with me after the MRI currently of the pneumatic walking boot he has been using. I did dispensed a prescription for Medrol Dosepak to help with the inflammation and pain. Haris Sutton DPM FACFAS documented in this encounter [facility] 06-08-2024 Note HNO ID: [id number] Author: AKUA WEINSTEIN RN Service: ? Author Type: Registered Nurse Type: Progress Notes Filed: 06/08/2024 13:18 Note Text: EKG completed. Mendoza aware of a fib. Pt aware to expect call from the cardiac schedulers about a YOGESH and Cardioversion. [facility] 06-08-2024 History of Present illness Narrative EKG completed. Hallee aware of a fib. Pt aware to expect call from the cardiac schedulers about a YOGESH and Cardioversion. documented in this encounter [facility] 06-07-[address] Fontaine reviewed file and spoke with Dr. Au, who will resume patient's care and re-refer as necessary. Surgical referral will be closed. Roxana Hernandez RN [facility] 06-07-[address] Fontaine reviewed file and spoke with Dr. Au, who will resume patient's care and re-refer as necessary. Surgical referral will be closed. Roxana Hernandez RN Phone call to patient. Reviewed his records & Dr. Simon is booking out into August. Patient agrees to be seen by Dr. Fontaine. Hayde Baker RN Irena Rao Stu [phone] [id number] [facility] [id number] 1945 79 year old Height: 177.8 cm Weight: 96.6 kg BMI: 30.56 Allergies: NKA Blood thinners/ OTC: ASA/OTC GLP-1 agonist: na SGLT2 inhibitor:na Smoking History: quit 1985 EF: 35% Diagnosis: root 5.2 ( echo) clot behind the watchman device, circ 80 %, RCA- 50 % mid stenosis, 70% pre crux, 80 % stenosis at the ostium of post descend artery Secondary Diagnosis: 1+ AR trace MR, MS & TR, Sign/Symptoms: frequent chest pain Previous cardiac or aortic surgery: s/p Ablation 2003, PVI 2015- Mistry, watchman 2022 Other pertinent medical history: PAF, CAD, GERD, HLD, HTN, PUD, obstructive lung disease, melanoma ( 2012), COPD, Imaging Studies: Cardiac Catheterization: 05/18/2024 CC FINDINGS: Hemodynamics: LV pressure: 101/EDP 5. Aortic [...] distally as a small caliber obtuse marginal 1 branch which demonstrates 80% mid stenosis. RIGHT CORONARY ARTERY: This is a large caliber, dominant vessel demonstrating moderate diffuse luminal irregularity with a more discrete 50% mid stenosis, as well as 70% stenosis pre-crux. There is evidence of an 80% eccentric napkin ring like stenosis at the ostium of the posterior descending artery. TTE: 05/04/24 OSH QUALITY: Technical quality was good. LEFT VENTRICLE: Normal chamber size. Normal left ventricular wall thickness. LV EF: Global left ventricular systolic function is difficult to assess but appears moderately reduced; visually estimated ejection fraction is 35 to 40%. Unable to assess regional wall motion abnormalities however of the septum is abnormal in motion. DIASTOLIC: Not adequately assessed due to heart rhythm. ATRIAL SEPTUM: Visually appears intact. LEFT ATRIUM: Severe dilatation. RIGHT ATRIUM: Mild dilatation. RIGHT VENTRICLE: Normal chamber size. Normal right ventricular systolic function. TRICUSPID VALVE: Normal mobility and thickness. No stenosis with mild regurgitation. Doppler studies reveal mildly (35-45) elevated right sided pressures. RVSP 45 mmHg MITRAL VALVE: Normal mobility and thickness. No evidence of mitral valve stenosis. There is no mitral annular calcification. Trivial mitral regurgitation. AORTIC VALVE: Normal trileaflet appearance. Mildly calcified aortic valve. Mildly diminished mobility. No evidence of aortic valve stenosis. Trivial aortic regurgitation. AORTIC ROOT: Normal diameter and appearance. Ascending aorta is severely dilated (5.2 cm). PULMONIC VALVE: Normal thickness and mobility. No stenosis. No regurgitation. PERICARDIUM: No evidence of pericardial effusion. IVC: Collapses with inspirations. IVC is normal in size. CONCLUSION: 1. Global left ventricular systolic function is difficult to assess but appears moderately reduced; visually estimated ejection fraction of 35 to 40% 2. Normal right ventricular size and systolic function 3. Biatrial dilatation 4. Mild tricuspid regurgitation 5. Mildly elevated right ventricular systolic pressure; RVSP 45 mmHg 6. The ascending aorta is severely dilated and measured at 5.2 cm - recommend dedicated imaging (CTA) to assess thoracic aortic aneurysm Adult Echocardiography Procedure Report Left Ventricle LVEDD (3.7 - 5.6 cm): 5.53 cm LVESD (2.2 - 4.0 cm): 4.07 cm LVIVS thickness (0.6 - 1.2 cm): 1.03 cm LVPW thickness (0.5 - 1.0 cm): 0.92 cm LVOT Max Gradient: 1.41 mm[Hg] LVOT Area (cm2): 0.59 m/s Peak Velocity (LVOT): 0.59 m/s LVOT Diameter 2.42 cm Left Atrium LA Volume Index (2D A2C): 58.25 ml/m2 Left Atrium Systolic Dimension: 4.93 cm Mitral Valve Mitral Valve E-Wave Peak Velocity: 0.66 m/s Right Ventricle Aorta AO Root Diam: 3.98 cm Ascending Ao Diam: 5.25 cm Aortic Valve AoV Area (Peak Orlando): 2.70 cm2, 2.70 cm2 Peak Velocity(Antegrade Flow): 1.01 m/s Peak Gradient(Antegrade Flow): 4.07 mm[Hg] Tricuspid Valve Peak Velocity (Regurgitant Flow): 3.25 m/s, 3.21 m/s Pulmonic Valve Peak Velocity: 0.84 m/s Peak Gradient: 3.48 mm[Hg], 2.44 mm[Hg], 4.04 mm[Hg], 2.66 mm[Hg], 1.71 mm[Hg] Right Atrium Right Atrium Systolic Pressure: 53.80 ml, 53.80 ml Dictated by: Ivan Mera M.D. on 05/07/2024 at 16:15 Approved by: Ivan Mera M.D. on 05/07/2024 at 16:19 Dictated By: Ivan Mera M.D. Signed By: 05/07/24 1620 DD/ 1619 TD/TT: Electrical Mechanic: YOGESH: 11/17/2023 CC FINDINGS: LEFT VENTRICLE The left ventricle is [...] device has been implanted. There is no cassie-device leak. RIGHT ATRIUM The right atrial cavity is normal in size. MITRAL VALVE The mitral valve leaflets are structurally normal. [place] mitral valve. There is trace mitral valve [...] VALVE There is trace pulmonic valve regurgitation. Labs: 05/18/24 BS 99, BUN 13, CREAT 1.12, K 3.9, GFR 67, H/H 12.4/38.[address] Simon: May 25, 2024 LOCAL PATIENT Received Call from cards scheduling Irena Peraza is being referred to Pamela Simon M.D. by Justina Natarajan [id number] [facility] [id number] Patient diagnosis/Reason for consult: AAA, CAD, AFIB Referral triage process explained: n/a Patient will receive a call from Cardiac NPM after triage review with surgeon to discuss any additional testing and/or consults that will be scheduled. Pt will then receive a call from our scheduling office for scheduling. Please call pt at [phone]. Patient Registration: Registration complete/updated: yes Insurance card(s) scanned in [facility] with in the past year: Yes: Date: 05/11/2024 Pt's Clip[employer] is active. Ok to communicate to pt via Clipabout not asked Medical Records: Records in [facility] (internal CC records): Yes Imaging in [facility] (internal CC records): Yes Additional providers added to Care Teams: Yes Additional Notes/Comments: Enct routed to: Yes, Cardiac NPM for triage Annemarie Madden documented in this encounter [facility] 06-07-2024 Telephone encounter Note He was supposed to discontinue atenolol and replace with bisoprolol. This was done 05/18/24. Please ensure he is doing this. MyChart Encounter below: S/p [facility] w/ Dr. Au today, new LV dysfunction of 35% & LBBB, mild LAD dx, severe Cx, mod/severe RCA and PDA dx, no intervention, low suspicion that CAD is cause of new CM. Referral to placed for evaluation of ascending aorta dilation. From AF standpoint, will optimize HF prior to arranging for outpatient DCCV to restore NSR. From HFrEF standpoint changes made to medications as below: Stop atenolol. Start bisoprolol 5 mg BID. Start losartan 50 mg daily. Repeat labs in one week, if volume status optimized, will arrange for outpatient DCCV. Patient called and updated on POC. Moni Mandujano APRN, CNP, May 18, 2024 [facility] Cardiology Second Floor [address] [address] [place], [place] [id number] Thank you Moni Mandujano APRN.CHA [facility] 06-07-2024 Miscellaneous Notes He was supposed to discontinue atenolol and replace with bisoprolol. This was done 05/18/24. Please ensure he is doing this. MyChart Encounter below: S/p [facility] w/ Dr. Au today, new LV dysfunction of 35% & LBBB, mild LAD dx, severe Cx, mod/severe RCA and PDA dx, no intervention, low suspicion that CAD is cause of new CM. Referral to placed for evaluation of ascending aorta dilation. From AF standpoint, will optimize HF prior to arranging for outpatient DCCV to restore NSR. From HFrEF standpoint changes made to medications as below: Stop atenolol. Start bisoprolol 5 mg BID. Start losartan 50 mg daily. Repeat labs in one week, if volume status optimized, will arrange for outpatient DCCV. Patient called and updated on POC. Moni Mandujano APRN, CNP, May 18, 2024 [facility] Cardiology Second Floor [address] [address] [place], [place] [id number] Thank you Moni Mandujano APRN.CNP Elmer is calling Angeli Au MD today to request Question Patient calling and wanted to clarify if he was supposed to discontinue the atenolol or if he was supposed to continue? If he is to continue, he needs a new script. He thought he was to continue but chart has it d/c pn 05/18/24 Please advise. Patient has been identified by name and birthdate. Duration of symptoms: N/A Person calling: self Call patient at: at home [phone] (home) [phone] (cell) Was an appointment scheduled: No Closing statement: Results or non-symptom based questions: Thank you for calling [facility], your call will be returned within the next business day. Zuleyka Juan documented in this encounter [facility] 06-07-2024 Note HNO ID: [id number] Author: DION FONTAINE MD Service: ? Author Type: Physician Type: Progress Notes Filed: 06/07/2024 08:21 Note Text: CTA chest shows mildly dilated Aorta, no aneurysm Discussed with Dr. Au, referring cadet deck, CTS consult cancelled. Cardiology to discuss treatment plan re: CAD / Afib with patient and will re-refer if indicated. Dion Fontaine MD [facility] 06-07-2024 History of Present illness Narrative CTA chest shows mildly dilated Aorta, no aneurysm Discussed with Dr. Au, referring cadet deck, CTS consult cancelled. Cardiology to discuss treatment plan re: CAD / Afib with patient and will re-refer if indicated. Dion Fontaine MD documented in this encounter [facility] 06-05-2024 Telephone encounter Note Elmer is calling Angeli uA MD today to request Question Patient calling and wanted to clarify if he was supposed to discontinue the atenolol or if he was supposed to continue? If he is to continue, he needs a new script. He thought he was to continue but chart has it d/c pn 05/18/24 Please advise. Patient has been identified by name and birthdate. Duration of symptoms: N/A Person calling: self Call patient at: at home [phone] (home) [phone] (cell) Was an appointment scheduled: No Closing statement: Results or non-symptom based questions: Thank you for calling [facility], your call will be returned within the next business day. Zuleyka Juan [facility] 05-29-2024 Telephone encounter Note Elmer is calling Moni Mandujano APRN.CNP today with concern regarding Results - CTA. Pt states he is just leaving [facility] from having the scan done. Pt states he was told it would be 3-5 days for the image to be read. Pt states he knows this was of urgent nature and asks if provider can get results back any sooner. Please advise. Patient has been identified by name and birthdate. Duration of symptoms: N/A Person calling: self Call patient at: at home [phone] (home) [phone] (cell) Was an appointment scheduled: No Closing statement: Results or non-symptom based questions: Thank you for calling [facility], your call will be returned within the next business day. Mary Almanzar [facility] 05-29-2024 History of Present illness Narrative Radiology Service Progress Note DATE OF SERVICE: May 29, 2024 TIME: 10:05 AM PATIENT WEIGHT: 212 LBS PATIENT IDENTITY VERIFICATION COMPLETED USING TWO (2) STANDARD IDENTIFIERS: Name and Date of confirmed by patient verbally. FALL SCREENING: Has the patient had 2 falls in the last year or 1 fall with injury or currently using an Ambulatory Assistive Device (Walker, Cane, Wheelchair, Crutches, etc.)? No PATIENT GENDER DATA: Assigned male at ALLERGIES: Reviewed and unchanged CONTRAST ALLERGY: No EXAM: CT -CONTRAST INDUCED NEPHROPATHY RISK FACTORS: Patient age > 60 years CREATININE: Creatinine Date Value Ref Range Status 05/28/2024 1.30 (H) 0.73 - 1.22 mg/dL Final 05/18/2024 1.12 0.73 - 1.22 mg/dL Final 05/11/2024 1.19 0.73 - 1.22 mg/dL Final Estimated Glomerular Filtration Rate Date Value Ref Range Status 05/28/2024 56 (L) >=60 mL/min/1.73m Final Comment: Estimated Glomerular Filtration [...] Status 03/09/2021 >60 Final P.O.C.T. RESULTS: N/A May 29, 2024 TREATMENT: No Hydration needed. IV SITE: Ambulatory: A peripheral IV was started in the Right FA site with a Angio cath: 20 gauge under US guidance by Eliazar Coronado RN IV SITE APPEARANCE: Clean,Dry and Intact SIGNATURE: Amanda Ponce RN PATIENT NAME: Irena Peraza DATE: May 29, 2024 TIME: 10:05 AM Radiology Service Progress Note PATIENT NAME: Irena Peraza DATE OF SERVICE: May 29, 2024 TIME: 10:33 AM PATIENT IDENTITY VERIFICATION COMPLETED USING TWO (2) IDENTIFIERS: Name and Date of confirmed by patient verbally and Name and Date of confirmed by identification band. FALL SCREENING: Has the patient had 2 falls in the last year or 1 fall with injury or currently using an Ambulatory Assistive Device (Walker, Cane, Wheelchair, Crutches, etc.)? No PATIENT GENDER DATA: Assigned male at PATIENT RELEVANT IMPLANT DATA REVIEWED: Not Applicable PATIENT PRESENTS WITH AN IMPLANTABLE OR ATTACHED YOUTH PASTOR: No RADIOLOGY DEPARTMENT: CT; Exam(s) Completed: CTA Chest PERIPHERAL IV DATA: Site assessment: Clean,Dry and Intact, Site disposition Discontinued SIGNED BY: Jo Ann Hernandez May 29, 2024 10:33 AM documented in this encounter [facility] 05-29-2024 Note HNO ID: [id number] Author: AMANDA PONCE RN Service: PICC Team Author Type: Registered Nurse Type: Progress Notes Filed: 05/29/2024 10:12 Note Text: Radiology Service Progress Note DATE OF SERVICE: May 29, 2024 TIME: 10:05 AM PATIENT WEIGHT: 212 LBS PATIENT IDENTITY VERIFICATION COMPLETED USING TWO (2) STANDARD IDENTIFIERS: Name and Date of confirmed by patient verbally. FALL SCREENING: Has the patient had 2 falls in the last year or 1 fall with injury or currently using an Ambulatory Assistive Device (Walker, Cane, Wheelchair, Crutches, etc.)? No PATIENT GENDER DATA: Assigned male at ALLERGIES: Reviewed and unchanged CONTRAST ALLERGY: No EXAM: CT -CONTRAST INDUCED NEPHROPATHY RISK FACTORS: Patient age > 60 years CREATININE: Creatinine Date Value Ref Range Status 05/28/2024 1.30 (H) 0.73 - 1.22 mg/dL Final 05/18/2024 1.12 0.73 - 1.22 mg/dL Final 05/11/2024 1.19 0.73 - 1.22 mg/dL Final Estimated Glomerular Filtration Rate Date Value Ref Range Status 05/28/2024 56 (L) >=60 mL/min/1.73m? Final Comment: Estimated Glomerular Filtration [...] Status 03/09/2021 >60 Final P.O.C.T. RESULTS: N/A May 29, 2024 TREATMENT: No Hydration needed. IV SITE: Ambulatory: A peripheral IV was started in the Right FA site with a Angio cath: 20 gauge under US guidance by Eliazar Coronado RN IV SITE APPEARANCE: Clean,Dry and Intact SIGNATURE: Amanda Ponce RN PATIENT NAME: Irena Peraza DATE: May 29, 2024 TIME: 10:05 AM [facility] 05-29-2024 Note HNO ID: [id number] Author: ESVIN HERNANDEZ Tech Service: Radiology Author Type: Kai [place] Type: Progress Notes Filed: 05/29/2024 10:33 Note Text: Radiology Service Progress Note PATIENT NAME: Irena Peraza DATE OF SERVICE: May 29, 2024 TIME: 10:33 AM PATIENT IDENTITY VERIFICATION COMPLETED USING TWO (2) IDENTIFIERS: Name and Date of confirmed by patient verbally and Name and Date of confirmed by identification band. FALL SCREENING: Has the patient had 2 falls in the last year or 1 fall with injury or currently using an Ambulatory Assistive Device (Walker, Cane, Wheelchair, Crutches, etc.)? No PATIENT GENDER DATA: Assigned male at PATIENT RELEVANT IMPLANT DATA REVIEWED: Not Applicable PATIENT PRESENTS WITH AN IMPLANTABLE OR ATTACHED YOUTH PASTOR: No RADIOLOGY DEPARTMENT: CT; Exam(s) Completed: CTA Chest PERIPHERAL IV DATA: Site assessment: Clean,Dry and Intact, Site disposition Discontinued SIGNED BY: Jo Ann Hernandez May 29, 2024 10:33 AM [facility] 05-25-2024 Telephone encounter Note Phone call to patient. Reviewed his records & Dr. Simon is booking out into August. Patient agrees to be seen by Dr. Fontaine. Hayde Baker RN [facility] 05-25-2024 Telephone encounter Note Irena Peraza [id number] [facility] [id number] 1945 79 year old Height: 177.8 cm Weight: 96.6 kg BMI: 30.56 Allergies: NKA Blood thinners/ OTC: ASA/OTC GLP-1 agonist: na SGLT2 inhibitor:na Smoking History: quit 1985 EF: 35% Diagnosis: root 5.2 ( echo) clot behind the watchman device, circ 80 %, RCA- 50 % mid stenosis, 70% pre crux, 80 % stenosis at the ostium of post descend artery Secondary Diagnosis: 1+ AR trace MR, MS & TR, Sign/Symptoms: frequent chest pain Previous cardiac or aortic surgery: s/p Ablation 2003, PVI 2015- Mistry, watchman 2022 Other pertinent medical history: PAF, CAD, GERD, HLD, HTN, PUD, obstructive lung disease, melanoma ( 2013), COPD, Imaging Studies: Cardiac Catheterization: 05/18/2024 CC FINDINGS: Hemodynamics: LV pressure: 101/EDP 5. Aortic [...] distally as a small caliber obtuse marginal 1 branch which demonstrates 80% mid stenosis. RIGHT CORONARY ARTERY: This is a large caliber, dominant vessel demonstrating moderate diffuse luminal irregularity with a more discrete 50% mid stenosis, as well as 70% stenosis pre-crux. There is evidence of an 80% eccentric napkin ring like stenosis at the ostium of the posterior descending artery. TTE: 05/04/24 OSH QUALITY: Technical quality was good. LEFT VENTRICLE: Normal chamber size. Normal left ventricular wall thickness. LV EF: Global left ventricular systolic function is difficult to assess but appears moderately reduced; visually estimated ejection fraction is 35 to 40%. Unable to assess regional wall motion abnormalities however of the septum is abnormal in motion. DIASTOLIC: Not adequately assessed due to heart rhythm. ATRIAL SEPTUM: Visually appears intact. LEFT ATRIUM: Severe dilatation. RIGHT ATRIUM: Mild dilatation. RIGHT VENTRICLE: Normal chamber size. Normal right ventricular systolic function. TRICUSPID VALVE: Normal mobility and thickness. No stenosis with mild regurgitation. Doppler studies reveal mildly (35-45) elevated right sided pressures. RVSP 45 mmHg MITRAL VALVE: Normal mobility and thickness. No evidence of mitral valve stenosis. There is no mitral annular calcification. Trivial mitral regurgitation. AORTIC VALVE: Normal trileaflet appearance. Mildly calcified aortic valve. Mildly diminished mobility. No evidence of aortic valve stenosis. Trivial aortic regurgitation. AORTIC ROOT: Normal diameter and appearance. Ascending aorta is severely dilated (5.2 cm). PULMONIC VALVE: Normal thickness and mobility. No stenosis. No regurgitation. PERICARDIUM: No evidence of pericardial effusion. IVC: Collapses with inspirations. IVC is normal in size. CONCLUSION: 1. Global left ventricular systolic function is difficult to assess but appears moderately reduced; visually estimated ejection fraction of 35 to 40% 2. Normal right ventricular size and systolic function 3. Biatrial dilatation 4. Mild tricuspid regurgitation 5. Mildly elevated right ventricular systolic pressure; RVSP 45 mmHg 6. The ascending aorta is severely dilated and measured at 5.2 cm - recommend dedicated imaging (CTA) to assess thoracic aortic aneurysm Adult Echocardiography Procedure Report Left Ventricle LVEDD (3.7 - 5.6 cm): 5.53 cm LVESD (2.2 - 4.0 cm): 4.07 cm LVIVS thickness (0.6 - 1.2 cm): 1.03 cm LVPW thickness (0.5 - 1.0 cm): 0.92 cm LVOT Max Gradient: 1.41 mm[Hg] LVOT Area (cm2): 0.59 m/s Peak Velocity (LVOT): 0.59 m/s LVOT Diameter 2.42 cm Left Atrium LA Volume Index (2D A2C): 58.25 ml/m2 Left Atrium Systolic Dimension: 4.93 cm Mitral Valve Mitral Valve E-Wave Peak Velocity: 0.66 m/s Right Ventricle Aorta AO Root Diam: 3.98 cm Ascending Ao Diam: 5.25 cm Aortic Valve AoV Area (Peak Orlando): 2.70 cm2, 2.70 cm2 Peak Velocity(Antegrade Flow): 1.01 m/s Peak Gradient(Antegrade Flow): 4.07 mm[Hg] Tricuspid Valve Peak Velocity (Regurgitant Flow): 3.25 m/s, 3.21 m/s Pulmonic Valve Peak Velocity: 0.84 m/s Peak Gradient: 3.48 mm[Hg], 2.44 mm[Hg], 4.04 mm[Hg], 2.66 mm[Hg], 1.71 mm[Hg] Right Atrium Right Atrium Systolic Pressure: 53.80 ml, 53.80 ml Dictated by: Ivan Mera M.D. on 05/07/2024 at 16:15 Approved by: Ivan Mera M.D. on 05/07/2024 at 16:19 Dictated By: Ivan Mera M.D. Signed By: 05/07/24 1620 DD/ 1619 TD/TT: Electrical Mechanic: YOGESH: 11/17/2023 CC FINDINGS: LEFT VENTRICLE The left ventricle is [...] device has been implanted. There is no cassie-device leak. RIGHT ATRIUM The right atrial cavity is normal in size. MITRAL VALVE The mitral valve leaflets are structurally normal. [place] mitral valve. There is trace mitral valve [...] VALVE There is trace pulmonic valve regurgitation. Labs: 05/18/24 BS 99, BUN 13, CREAT 1.12, K 3.9, GFR 67, H/H 12.4/38.[address] PLTS [address] Simon: May 25, 2024 [facility] 05-24-2024 Telephone encounter Note inn [facility] Work Phone: 05-24-2024 Miscellaneous Notes inn Please advise whether the patient's insurance is in network Thank you! documented in this encounter [facility] 05-24-2024 Telephone encounter Note LOCAL PATIENT Received Call from cards scheduling Irena Peraza is being referred to Pamela Simon M.D. by Justina Natarajan [id number] [facility] [id number] Patient diagnosis/Reason for consult: AAA, CAD, AFIB Referral triage process explained: n/a Patient will receive a call from Cardiac NPM after triage review with surgeon to discuss any additional testing and/or consults that will be scheduled. Pt will then receive a call from our scheduling office for scheduling. Please call pt at [phone]. Patient Registration: Registration complete/updated: yes Insurance card(s) scanned in [employer] with in the past year: Yes: Date: 05/11/2024 Pt's Clipabout is active. Ok to communicate to pt via Clipabout not asked Medical Records: Records in [facility] (internal CC records): Yes Imaging in [facility] (internal CC records): Yes Additional providers added to Care Teams: Yes Additional Notes/Comments: Enct routed to: Yes, Cardiac NPM for triage Annemarie Madden [facility] 05-24-2024 Telephone encounter Note Please advise whether the patient's insurance is in network Thank you! [facility] 05-22-2024 Hospital Discharge instructions Patient Education 05/22/2024 14:15:36 Prostate Cancer Screening Prostate Cancer Screening Prostate [...] treatment? Where to find more information The [employer]: www.cancer.org [employer] Association: www.auanet.org Contact a health care [...] provider. Document Revised: 10/12/2021 Document Reviewed: 10/12/2021 Elsevier Patient Education 2023 [place]. Follow Up Care 11/01/2023 10:54:34 With:ALLAN JARVIS, Nghia Elizabeth, URL Address: [address] [address]- When: Unknown [facility] 05-22-2024 Note Patient Education Oncology Prostate Cancer Screening Prostate [...] recommendations. In general, screening is recommended if: ??? You are age 50 to 70 and [...] have a 10- to 15-year life expectancy. ??? You are younger than age 50, and [...] In general, screening is not recommended if: ??? You are younger than age 40. ??? You are between the ages of 40 and 49 and you have no risk factors. ??? You are 70 years of age or [...] high PSA levels may be caused by: ??? Prostate cancer. ??? An enlarged prostate that is not caused by cancer (benign prostatic hyperplasia, or BPH). This condition is very common in older men. ??? A prostate gland infection (prostatitis) or urinary tract infection. ??? Certain medicines such as male hormones (like [...] you may need more tests, such as: ??? A physical exam to check the size of your prostate gland, if not done as part of screening. ??? Blood and imaging tests. ??? A procedure to remove tissue samples from your prostate gland for testing (biopsy). This is the only way to know for certain if you have prostate cancer. What are the benefits of prostate cancer screening? Screening can help to identify cancer at an early stage, before symptoms start and when the cancer can be treated more easily. ??? There is a small chance that screening [...] Questions to ask your health care provider ??? When should I start prostate cancer screening? What is my risk for prostate cancer? How often do I need screening? What type of screening tests do I need? How do I get my test results? What do my results mean? Do I need treatment? Where to find more information ??? The [place]: www.cancer.org ??? [employer] Association: www.auanet.org Contact a health care provider if: ??? You have difficulty urinating. ??? You have pain when you urinate or ejaculate. ??? You have blood in your urine or semen. ??? You have pain in your back or in the area of your prostate. Summary ??? Prostate cancer is a common type of cancer in men. The prostate gland (more content not included)... [facility] 05-22-2024 Telephone encounter Note Sent message to [facility] to have patient scheduled with either [place] or Zhen Tried calling patient to schedule chest CTA, no answer LVM informing patient of scheduled chest CTA for 06/01 [facility] 05-22-2024 Miscellaneous Notes Sent message to [facility] to have patient scheduled with either [place] or Zhen Tried calling patient to schedule chest CTA, no answer LVM informing patient of scheduled chest CTA for 06/01 Please assist pt with the following, case discussed with Dr. Au: Schedule CTA to assess ascending aorta. Establish care with either Dr. Simon or Dr. Fontaine ([place]) at for aortic dilation of 5.2 cm. Thank you! Moni Mandujano APRN.CNP documented in this encounter [facility] 05-18-2024 Telephone encounter Note Please assist pt with the following, case discussed with Dr. Au: Schedule CTA to assess ascending aorta. Establish care with either Dr. Simon or Dr. Fontaine ([place]) at for aortic dilation of 5.2 cm. Thank you! Moni Mandujano APRN.CNP [facility] 05-18-2024 Note HNO ID: [id number] Author: ANGELI AU MD Service: Cardiovascular Disease Author Type: Physician Type: Procedures Filed: 05/18/2024 16:25 Note Text: [facility] - Cardiac Catheterization IRENA PERAZA : 1945 AGE: 79 SEX: M CSN: [id number] HOSP SVC: CAR LOCATION: [facility] ATTENDING PHYSICIAN: ANGELI AU DATE OF SERVICE: 05/18/2024 TIME OF SERVICE: 12:14 PM PROCEDURE PERFORMED: Left heart catheterization, selective coronary arteriogram, left ventricular pressure and moderate sedation. INDICATIONS: Planned Procedure: Left Heart Cath + Possible PCI Primary Indication for Procedure: Congestive Heart Failure, New Cardiomyopathy and new LBBB High Risk Features: History of Prior CABG: No History of Prior PCI: No Cardiomyopathy: Yes Anti-ischemic Meds in Past 2 Weeks: Beta blockers Ejection Fraction: 35% from Previous Echo Risk Appropriateness: Angina Class in Past 2 Weeks: Class III - Marked limitation of ordinary physical activity Cardiogenic Shock: NoHeart Failure: Yes, newly diagnosed Systolic Heart Failure, NYHA; III Stress Test Performed: None EKG Assessment: atrial fibrillation, new LBBB Family History of Premature CAD: None Evaluation for Preop Clearance: no TECHNIQUE: After informed consent was obtained and a time-out taken in the golf course laborer, a left heart catheterization was performed from the right radial artery using the Shanique technique and standard catheters. In addition, on completion of the procedure, using the TR band and pulse ox waveform monitoring, patent hemostasis was obtained at the right radial artery entry point. Moderate sedation was provided by Cardiology Interventional Nursing staff. Moderate sedation consisting of continuous EKG, pulse oximetry and cardiopulmonary monitoring, was performed by the Cardiology nurse, overseen by the performing physician for an intra-service time of 25 minutes. The patient was given 0.5 mg of Versed and 25 mcg of fentanyl intravenously at 12:14 hours and monitored continuously through 12:39 hours. FINDINGS: Hemodynamics: LV pressure: 101/EDP 5. Aortic [...] distally as a small caliber obtuse marginal 1 branch which demonstrates 80% mid stenosis. RIGHT CORONARY [...] coronary artery and posterior descending branch disease. Angeli Au M.D. Cardiovascular Medicine DEBBIE:[id number] /[id number] [facility] 05-16-2024 Telephone encounter Note Patient calling back. Spoke with Dagmar and was told it is not possible to take a reading while talking on a phone call. Following that call he did 2 additional readings, both showed possible A Fib HR from 85-103 Denies chest pain or shortness of breath In no acute distress. Reviewed symptoms that would necessitate an ED visit. States understanding. CALL if needed [phone] [facility] 05-16-2024 Miscellaneous Notes Patient calling back. Spoke with Dagmar and was told it is not possible to take a reading while talking on a phone call. Following that call he did 2 additional readings, both showed possible A Fib HR from 85-103 Denies chest pain or shortness of breath In no acute distress. Reviewed symptoms that would necessitate an ED visit. States understanding. CALL if needed [phone] Pt is having an outpatient LHC with Dr. Au in 2 days Calling to inform he has gained weight No longer taking Tikosyn (or Flecainide) as you know Only taking the atenolol, ASA, atorvastatin and Lasix Pt's weight today is 210 lbs (Weighs himself at the same time every day wearing only underwear and a t-shift after urinating) He reports he's gained 7 lbs since May 05 when he was discharged from his local hospital The last 3 lbs being 1 lb, each day over the last 3 days so he thought he better call He takes Lasix 20 mg once daily States he is urinating good amounts of urine about 3-4 x a day Denies SOB Denies orthopnea Said (at baseline) he has BLE edema and it's the same.. not worse than usual Wears high sweat socks that go up about mid-calf There is a 'ring' where the top of the sock is.. but he can see his ankle bone and his feet don't look overtly swollen Nothing is hot, red or painful No swelling noted above this sock line, none in his abdomen, face, hands, etc No CP He has a KardiaMobile device (which is new) and it tells him he's likely in A-fib However -- he is NOT aware of any palpitations or irregular rhythms HR is ranging from about 85-110 B/P readings: Last night 140/72, 102 120/66, 97 114/59, 98 115/58, 93 Last night 10:35 pm KardiaMobile recorded HR 95 (and) gave him the 'possible' a-fib warning 1:30 am it read a HR of 98 and another warning Pt is not in any acute distress We discussed sx that would necessitate him seeking emergency care and he understands HE TRIED TO GET HIS [employer]visory.comDIA MOBILE DEVICE TO DO A READING FOR ME ON THE PHONE PT WILL CALL BACK WITH MONICA POLANCO INFO This is an FYI to Cards team Pt's call back # is: [phone] documented in this encounter [facility] 05-16-2024 Telephone encounter Note Pt is having an outpatient LHC with Dr. Au in 2 days Calling to inform he has gained weight No longer taking Tikosyn (or Flecainide) as you know Only taking the atenolol, ASA, atorvastatin and Lasix Pt's weight today is 210 lbs (Weighs himself at the same time every day wearing only underwear and a t-shift after urinating) He reports he's gained 7 lbs since May 05 when he was discharged from his local hospital The last 3 lbs being 1 lb, each day over the last 3 days so he thought he better call He takes Lasix 20 mg once daily States he is urinating good amounts of urine about 3-4 x a day Denies SOB Denies orthopnea Said (at baseline) he has BLE edema and it's the same.. not worse than usual Wears high sweat socks that go up about mid-calf There is a 'ring' where the top of the sock is.. but he can see his ankle bone and his feet don't look overtly swollen Nothing is hot, red or painful No swelling noted above this sock line, none in his abdomen, face, hands, etc No CP He has a KardiaMobile device (which is new) and it tells him he's likely in A-fib However -- he is NOT aware of any palpitations or irregular rhythms HR is ranging from about 85-110 B/P readings: Last night 140/72, 102 120/66, 97 114/59, 98 115/58, 93 Last night 10:35 pm KardiaMobile recorded HR 95 (and) gave him the 'possible' a-fib warning 1:30 am it read a HR of 98 and another warning Pt is not in any acute distress We discussed sx that would necessitate him seeking emergency care and he understands HE TRIED TO GET HIS KARDIA MOBILE DEVICE TO DO A READING FOR ME ON THE PHONE PT WILL CALL BACK WITH MONICA POLANCO INFO This is an FYI to Cards team Pt's call back # is: [phone] [facility] 05-14-2024 Telephone encounter Note Patient sent a Accelahart response opting for 05/18/2024 date. Procedure instructions submitted via Zaask for patient's review. [facility] Work Phone: 05-14-2024 Miscellaneous Notes Patient sent a Accelahart response opting for 05/18/2024 date. Procedure instructions submitted via Zaask for patient's review. A request has been received from Moni Mandujano CNP to assist in scheduling a heart catheterization with Dr. Angeli Au at [facility]. A voice and Zaask message were left for patient seeking is his preference would be to schedule this week or the week of May 28 to the . ----- Message ----- From: Moni Mandujano APRN.CASHIERS SUPERVISOR Sent: 05/11/2024 6:32 PM EST To: Caryl Jimenez; Angeli Au MD Patient discussed in clinic - originally seen by myself for AF follow up, new start to Flecainide after unexplained QT prolongation with Tikosyn. In the interim, admitted to OSH for new HFrEF (EF 35%, previously normal), also noted to have dilated ascending aorta of 5.2 cm (previously 4.4 cm), new LBBB on ECG. I stopped Flecainide after today's visit given findings. He will need assistance in scheduling outpatient C w/ Dr. Au (discussed in office on 05/11/24). He is not anticoagulated for AF as he has a Watchman device. Labs are in. From EP standpoint - he will need a follow up visit with JAYDEN or Dr. Pino upon his return once above has been done. documented in this encounter [facility] 05-14-2024 Telephone encounter Note A request has been received from Moni Mandujano CNP to assist in scheduling a heart catheterization with Dr. Angeli Au at [facility]. A voice and Mychart message were left for patient seeking is his preference would be to schedule this week or the week of May 28 to the . [facility] 05-14-2024 Telephone encounter Note ----- Message ----- From: Moni Mandujano APRN.CHA Sent: 05/11/2024 6:32 PM EST To: Caryl Jimenez; Angeli Au MD Patient discussed in clinic - originally seen by myself for AF follow up, new start to Flecainide after unexplained QT prolongation with Tikosyn. In the interim, admitted to OSH for new HFrEF (EF 35%, previously normal), also noted to have dilated ascending aorta of 5.2 cm (previously 4.4 cm), new LBBB on ECG. I stopped Flecainide after today's visit given findings. He will need assistance in scheduling outpatient C w/ Dr. Au (discussed in office on 05/11/24). He is not anticoagulated for AF as he has a Watchman device. Labs are in. From EP standpoint - he will need a follow up visit with JAYDEN or Dr. Pino upon his return once above has been done. [facility] 05-11-2024 History of Present illness Narrative Images from the original note were not included. [facility] Department of Cardiovascular Medicine SECTION OF CARDIAC PACING and ELECTROPHYSIOLOGY OUTPATIENT VISIT DATE May 08, 2024 OUTPATIENT VISIT TYPE ESTABLISHED PRIMARY CARE PHYSICIAN: Scarlett Gaviria NP [address] [facility] [place] [address] REFERRING PHYSICIAN: No referring provider defined for this encounter. CHIEF COMPLAINT: Follow up AF HISTORY OF PRESENT ILLNESS: Mr. Peraza is a 79 year old male who presents today for follow-up visit. Previously evalauted by Dr. Simms, Dr. Au, Dr. Kemp, Dr. Pino w/ PMHx of pAF (dx >20 years ago, remote h/o PVI at OSH in [place], 2016: had recurrence of AF s/p Watchman device (05/19/22), h/o DCCV, AAD hx: Tikosyn initiated in 2018, discontinued 04/2024 d/t QT prolongation, now on Flecainide), h/o GIB, ETOH, h/o melanoma, BCC, h/o non-obs CAD ([facility] 03/2013 - 40-50% stenosis of LAD, 06/03/23: nuclear stress test negative for inducible ischemia, fixed perfusion of RCA likely diaphragmatic attenuation, EF normal), HTN, HLD, GERD, depression, COPD. Mr. Peraza was last seen by Dr. Pino on 04/12/24. At that visit, patients ECG showed QTc of 536 ms, measurement even longer when reviewed by Dr. Pino. Kidney function and electrolytes normal & unchanged, patient denied any new medications. He was instructed to hold his Tikosyn and return to clinic the following day for repeat ECG. On 04/13/24, he returned for ECG which showed QTc of 489 ms. Although improved, decision made by Dr. Pino to discontinue Tikosyn given no explanation for QT prolongation. Plan moving forward was to monitor pt and discuss management strategies when he had recurrence of AF. Unfortunately, Mr. Peraza had recurrence of AF almost immediately after stopping Tikosyn, reports being highly symptomatic w/ fatigue and SOB. On 04/23/24, he was instructed to start AAD Flecainide 100 mg BID w/ plan for outpatient DCCV if he did not convert to SR after starting new medication. His plan of care was then further complicated by an admission to OS ([facility]) on 05/03/24 where he had initially presented for shortness of breath. His ECG on hospital admission demonstrated AF with RVR and a new LBBB. He was admitted & treated for ADHF & placed on a Bumex gtt for diuresis. Updated echo obtained during admission significant for a newly reduced LVEF of ~35% (previously normal), and concern for severe dilation of patients ascending aorta (measured at 5.2 cm, previously measured 4.4 cm). 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 Mr. Peraza is here today with his son who works as a flight nurse, Since hospital discharge, Mr. Peraza reports that he has been feeling OK, reports some ANDERSEN & feeling tired, usual symptoms associated w/ recurrence of AF. His ECG today shows rate controlled AF w/ new LBBB. He denies ever having any chest pain or other symptoms concerning for anginal equivalent. He has a [employer] mobile that he uses to monitor his rate/rhythm at home, AF rates averaging between 80's - low 100's bpm, states starting Flecainide has not made much of an impact on his HR. PAST CARDIAC HISTORY: See above/below PAST MEDICAL HISTORY Diagnosis Date Arthritis CAD [...] CARDIOVERSION 11/14/15 CATHETER, ABLATION A-Fib, 2003 at [facility] HERNIA REPAIR HX 05/2011 left [...] date: 05/02/1970 Quit date: 05/02/1985 Years since quittin.0 Smokeless [...] old ALLERGIES: ALLERGIES No Known Allergies MEDICATIONS: flecainide (TAMBOCOR) 100 mg tablet Take 1 tablet by mouth two times a day. atorvastatin (LIPITOR) 40 mg tablet Take 1 tablet by mouth once daily. Need appointment for future refills furosemide (LASIX) 20 mg tablet Take 1 tablet by mouth once daily. atenolol (TENORMIN) 50 mg tablet Take 1 tablet by mouth once daily. omega-3/dha/epa/fish oil (OMEGA-3 ORAL) Take by mouth. acetaminophen 650 mg CR tablet Every 12 [...] (FLONASE) 50 mcg/actuation nasal spray Use 1 [place] in each nostril once daily. coenzyme Q10 100 mg cap Take 100 mg by mouth once daily. albuterol HFA (PROAIR HFA) 90 mcg/actuation inhaler Inhale 2 Puffs as instructed every 6 hours as needed. Aoejspizkop-Uxgzuudwt-Sfe C-Mn 500-400 mg cap Take 1 capsule [...] sweating, Frequent urination, Frequent thirst PHYSICAL EXAMINATION: Wt 95.7 kg (210 lb 15.7 oz) BMI 30.27 kg/m General: Well appearing, in no acute distress. Skin: No clubbing, no cyanosis. Eyes: Extra ocular movements intact Oropharynx: Teeth in good repair. Neck: No jugular venous distention, no carotid bruits. Lungs: Clear to auscultation bilaterally, no wheezing or rhonchi. Heart: Irregular rhythm. Abdomen: Soft, nontender, bowel sounds normal, no palpable organomegaly, no bruits. Extremities: No peripheral edema, Neuro: Oriented to person, place and time, alert, cooperative, gait coordinated. CARDIOVASCULAR MEDICINE TESTING: Labs: Latest Ref Rng 02/14/2024 2:19 PM 04/12/2024 10:56 AM 05/11/2024 10:27 AM Albumin 3.9 - 4.9 g/dL 4.1 Calcium 8.5 - 10.2 mg/dL 10.5 (H) 9.8 10.0 Phosphorus 2.7 - 4.8 mg/dL 2.6 (L) Glucose 74 - 99 mg/dL 79 107 (H) 110 (H) BUN 9 - 24 mg/dL 13 10 17 Creatinine 0.73 - 1.22 mg/dL 1.03 1.07 1.19 Sodium 136 - 144 mmol/L 141 138 137 Potassium 3.7 - 5.1 mmol/L 4.3 4.2 4.6 Chloride 98 - 107 mmol/L 100 98 100 CO2 22 - 30 mmol/L 26 29 27 Anion Gap 8 - 15 mmol/L 15 11 10 eGFR >=60 mL/min/1.73m 74 71 63 Magnesium 1.7 - 2.3 mg/dL 1.9 2.0 1.8 Latest Ref Rng 05/12/2022 1:41 PM 05/18/2022 1:28 PM WBC 3.70 - 11.00 k/uL 5.98 6.94 RBC 4.20 - 6.00 m/uL 4.33 4.32 Hemoglobin 13.0 - 17.0 g/dL 13.3 13.3 Hematocrit 39.0 - 51.0 % 41.4 41.3 MCV 80.0 - 100.0 fL 95.6 95.6 MCH 26.0 - 34.0 pg 30.7 30.8 MCHC 30.5 - 36.0 g/dL 32.1 32.2 RDW-CV 11.5 - 15.0 % 13.9 14.2 Platelet Count 150 - 400 k/uL 303 271 MPV 9.0 - 12.7 fL 9.2 9.5 Neut% % 68.8 Abs Neut (ANC) 1.45 - 7.50 k/uL 4.78 Lymph% % 16.9 Abs Lymph 1.00 - 4.00 k/uL 1.17 [place]% % 9.8 Abs [place] <0.87 k/uL 0.68 Eosin% % 2.6 Abs Eosin <0.46 k/uL 0.18 Baso% % 1.0 Abs Baso <0.11 k/uL 0.07 Immature Gran % % 0.9 IMMATURE GRANS (ABS) <0.10 k/uL 0.06 NRBC /100 WBC 0.0 Absolute nRBC <0.01 k/uL <0.01 <0.01 DTYPE Auto Latest Ref Rng 06/07/2023 10:33 AM Cholesterol, Total <200 mg/dL 189 Triglyceride <150 mg/dL 331 (H) HDL Cholesterol >39 mg/dL 42 Non HDL Cholesterol <130 mg/dL 147 (H) Fasting Time hrs 12 VLDL Cholesterol <30 mg/dL 66 (H) TC:HDL Ratio <5.10 4.50 LDL Cholesterol <100 mg/dL 81 LDL:HDL Ratio <2.54 1.93 All OSH labs reviewed. EC05/11/24 Cardiac Cath: 03/26/13 1. Coronary anatomy: - Left main trunk: The left main trunk is a normal vessel. - Left anterior descending: There is a 50% stenosis in a large (>3.0mm) mid left anterior descending. - Right coronary artery: The right coronary artery is a normal, dominant vessel. - Left circumflex: The left circumflex is a normal, non-dominant vessel. Summary Irena Peraza is a 68 year old male White with afib and CP, LVH, LAE, here for [facility]. The left anterior descending artery has a 40-50% stenosis in mid-vessel after a large LADD1. Plan is to workup other etiologies of atypical chest pain. Recommendations Disposition: cardiac medical treatment. Nuclear Stress Test: 06/16/23 ONCLUSIONS: 1. SPECT Perfusion Study: Normal. 2. There [...] Gated Rest FBP LVEF % 59 54 Transesophageal Echo: 11/17/23 CONCLUSIONS: - Exam indication: Nonsustained atrial fibrillation [...] behind the Watchman device. There is no cassie-device leak. - Exam was compared with the prior transesophageal echocardiographic exam performed on 09/14/22. similar findings Echo: 05/04/24 MR#: [id number] : 1945 Exam Date: 05/04/2024 Ordering Doctor: DR PAPI MAX . ECHOCARDIOGRAM REPORT PROCEDURE: CA ECHO DOPPLER COMPLETE INDICATIONS: Dyspnea, elevated BNP, atrial fibrillation, Watchman, COPD, hypertension COMPARISON: None. DESCRIPTION: COMPLETE ECHOCARDIOGRAM Real-time transthoracic echocardiography with 2D, M-mode, spectral and color flow Doppler performed. QUALITY: Technical quality was good. LEFT VENTRICLE: Normal chamber size. Normal left ventricular wall thickness. LV EF: Global left ventricular systolic function is difficult to assess but appears moderately reduced; visually estimated ejection fraction is 35 to 40%. Unable to assess regional wall motion abnormalities however of the septum is abnormal in motion. DIASTOLIC: Not adequately assessed due to heart rhythm. ATRIAL SEPTUM: Visually appears intact. LEFT ATRIUM: Severe dilatation. RIGHT ATRIUM: Mild dilatation. RIGHT VENTRICLE: Normal chamber size. Normal right ventricular systolic function. TRICUSPID VALVE: Normal mobility and thickness. No stenosis with mild regurgitation. Doppler studies reveal mildly (35-45) elevated right sided pressures. RVSP 45 mmHg MITRAL VALVE: Normal mobility and thickness. No evidence of mitral valve stenosis. There is no mitral annular calcification. Trivial mitral regurgitation. AORTIC VALVE: Normal trileaflet appearance. Mildly calcified aortic valve. Mildly diminished mobility. No evidence of aortic valve stenosis. Trivial aortic regurgitation. AORTIC ROOT: Normal diameter and appearance. Ascending aorta is severely dilated (5.2 cm). PULMONIC VALVE: Normal thickness and mobility. No stenosis. No regurgitation. PERICARDIUM: No evidence of pericardial effusion. IVC: Collapses with inspirations. IVC is normal in size. CONCLUSION: 1. Global left ventricular systolic function is difficult to assess but appears moderately reduced; visually estimated ejection fraction of 35 to 40% 2. Normal right ventricular size and systolic function 3. Biatrial dilatation 4. Mild tricuspid regurgitation 5. Mildly elevated right ventricular systolic pressure; RVSP 45 mmHg 6. The ascending aorta is severely dilated and measured at 5.2 cm - recommend dedicated imaging (CTA) to assess thoracic aortic aneurysm IMPRESSION/PLAN: 1.) Persistent atrial fibrillation: 2.) New LBBB: 3.) New LV systolic function (EF ~35%): 5.) Dilated ascending aorta: - Longstanding h/o persistent, drug refractory AF, well managed on Tikosyn since 2018, discontinued in April d/t prolonged QTc w/ no explanation, developed recurrence almost immediately after drug was discontinued, started Flecainide 100 mg BID 04/23/24. Was then admitted to OSH 05/03/24 for ADHF - ECG w/ new LBBB, newly reduced LVEF ~35%, previously normal, ascending aorta measuring at 5.2 cm, previously 4.4 cm. Discharged home on same BELT POLISHER medications. - ECG today demonstrating rate controlled AF w/ LBBB. No prior LBBB seen on ECG's in the past except for most recent admission. - Well appearing, and without evidence of volume overload on physical exam. - Reviewed Echo report from OSH, images unavailable. - Last ischemia evaluation 06/2023 which was negative for inducible ischemia, RCA fixed perfusion defect 2/2 diaphragmatic attenuation. EF normal. Last cath in 2012 showed 40-50% stenosis of LAD. He denies any CP or symptoms concerning for anginal equivalent. - Discussed the following w/ patient and son: Newly reduced LV function w/ new LBBB, significant increase in dilation of ascending aorta - needs further work up prior to muslim of NSR, indication for stopping AAD Flecainide after today's OV. Plan: - Patient reviewed with Dr. Au --> recommending outpatient [facility] to assess coronaries & size of aorta. - Patient to stop Flecainide after today's OV given findings above. -Continue atenolol 50 mg daily for rate control, no OAC d/t history of Watchman device. Instructed to closely monitor HR at home to ensure rate control is adequate. - Continue asa 81 mg daily, atorvastatin 40 mg daily. - Update labs after today's OV. - Procedure schedulers to call and arrange for outpatient [facility] at [facility] w/ Dr. Au. - Follow up w/ EP after above has been completed to discuss timing of restoring SR. I personally interviewed, confirmed and edited the above information as obtained by others. CONTACT INFORMATION: Moni Mandujano APRN, CNP, May 08, 2024 [facility] Cardiology Second Floor [address] [address] [place] [address] documented in this encounter [facility] 05-11-2024 Note HNO ID: [id number] Author: MONI MANDUJANO APRN.CNP Service: ? Author Type: Nurse Practitioner Type: Progress Notes Filed: 05/11/2024 18:33 Note Text: [facility] Department of Cardiovascular Medicine SECTION OF CARDIAC PACING and ELECTROPHYSIOLOGY OUTPATIENT VISIT DATE May 08, 2024 OUTPATIENT VISIT TYPE ESTABLISHED PRIMARY CARE PHYSICIAN: Scarlett Gaviria NP [address] [place] [phone] REFERRING PHYSICIAN: No referring provider defined for this encounter. CHIEF COMPLAINT: Follow up AF HISTORY OF PRESENT ILLNESS: Mr. Peraza is a 79 year old male who presents today for follow-up visit. Previously evalauted by Dr. Simms, Dr. Au, Dr. Kemp, Dr. Pino w/ PMHx of pAF (dx >20 years ago, remote h/o PVI at OSH in [place], 2016: had recurrence of AF s/p Watchman device (05/19/22), h/o DCCV, AAD hx: Tikosyn initiated in 2018, discontinued 04/2024 d/t QT prolongation, now on Flecainide), h/o GIB, ETOH, h/o melanoma, BCC, h/o non-obs CAD ([facility] 03/2013 - 40-50% stenosis of LAD, 06/03/23: nuclear stress test negative for inducible ischemia, fixed perfusion of RCA likely diaphragmatic attenuation, EF normal), HTN, HLD, GERD, depression, COPD. Mr. Peraza was last seen by Dr. Pino on 04/12/24. At that visit, patients ECG showed QTc of 536 ms, measurement even longer when reviewed by Dr. Pino. Kidney function and electrolytes normal AND unchanged, patient denied any new medications. He was instructed to hold his Tikosyn and return to clinic the following day for repeat ECG. On 04/13/24, he returned for ECG which showed QTc of 489 ms. Although improved, decision made by Dr. Pino to discontinue Tikosyn given no explanation for QT prolongation. Plan moving forward was to monitor pt and discuss management strategies when he had recurrence of AF. Unfortunately, Mr. Peraza had recurrence of AF almost immediately after stopping Tikosyn, reports being highly symptomatic w/ fatigue and SOB. On 04/23/24, he was instructed to start AAD Flecainide 100 mg BID w/ plan for outpatient DCCV if he did not convert to SR after starting new medication. His plan of care was then further complicated by an admission to OS ([facility]) on 05/03/24 where he had initially presented for shortness of breath. His ECG on hospital admission demonstrated AF with RVR and a new LBBB. He was admitted AND treated for ADHF AND placed on a Bumex gtt for diuresis. Updated echo obtained during admission significant for a newly reduced LVEF of ~35% (previously normal), and concern for severe dilation of patients ascending aorta (measured at 5.2 cm, previously measured 4.4 cm). 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 Mr. Peraza is here today with his son who works as a flight nurse, Since hospital discharge, Mr. Peraza reports that he has been feeling OK, reports some ANDERSEN AND feeling tired, usual symptoms associated w/ recurrence of AF. His ECG today shows rate controlled AF w/ new LBBB. He denies ever having any chest pain or other symptoms concerning for anginal equivalent. He has a [employer] mobile that he uses to monitor his rate/rhythm at home, AF rates averaging between 80's - low 100's bpm, states starting Flecainide has not made much of an impact on his HR. PAST CARDIAC HISTORY: See above/below PAST MEDICAL HISTORY Diagnosis Date Arthritis CAD [...] CARDIOVERSION 11/14/15 CATHETER, ABLATION A-Fib, 2003 at [facility] HERNIA REPAIR HX 05/2011 left [...] 08/2015 reverse total shoulder TONSILLECTOMY HX SOCIAL HIST (more content not included)... [facility] 05-04-2024 Telephone encounter Note Patient calling office today to report he is hospitalized at a local hospital s-fib and CHF. Requesting to transfer his care from Dr. Pino. Last seen by Dr. Pino on 04/12/2024. Transferred to Cardiology scheduling. [facility] 05-04-2024 Miscellaneous Notes Patient calling office today to report he is hospitalized at a local hospital s-fib and CHF. Requesting to transfer his care from Dr. Pino. Last seen by Dr. Pino on 04/12/2024. Transferred to Cardiology scheduling. documented in this encounter [facility] 04-23-2024 Telephone encounter Note Called to let [...] EKG located on fax scanned into chart. [facility] 04-23-2024 Miscellaneous Notes Called to let patient [...] may be ordered an EKG locally at [place] or at a [facility] facility to confirm. Please call patient via his cell [phone]. documented in this encounter [facility] 04-23-2024 Note Addended by: MOUSTAPHA MELVIN on: 04/23/2024 02:31 PM Modules accepted: Orders [facility] 04-23-2024 Telephone encounter Note EKG ordered Moustapha Melvin APRN.CASHIERS SUPERVISOR [facility] 04-23-2024 Telephone encounter Note Patient called, leaving a message on procedure space scheduler's voice mail. Feels he is in a fib, inquiring if he may be ordered an EKG locally at [place] or at a [facility] facility to confirm. Please call patient via his cell [phone]. [facility] Work Phone: 04-13-2024 Note HNO ID: [id number] Author: AKUA WEINSTEIN RN Service: ? Author Type: Registered Nurse Type: Progress Notes Filed: 05/29/2024 10:48 Note Text: Spoke with patient , he is aware not to restart the tikosyn and to notify us if he were to go into A fib. Pt verifies understanding of these instructions. [facility] 04-13-2024 History of Present illness Narrative Spoke with patient , he is aware not to restart the tikosyn and to notify us if he were to go into A fib. Pt verifies understanding of these instructions. EKG completed. Pt with no voiced complaints. Pt has stopped taking tikosyn. Dr. Pino notified of the completion. documented in this encounter [facility] 04-13-2024 Telephone encounter Note He came back today for an EKG and the QTc was shorter at 489 ms. K+ and MG++ were normal. I'm not keen on restarting Tikosyn, even at a lower dose, because there's no apparent explanation for the prolongation. He was instructed to DC Tikosyn and we'll deal with AF if and when it recurs. [facility] 04-13-2024 Miscellaneous Notes He came back today for an EKG and the QTc was shorter at 489 ms. K+ and MG++ were normal. I'm not keen on restarting Tikosyn, even at a lower dose, because there's no apparent explanation for the prolongation. He was instructed to DC Tikosyn and we'll deal with AF if and when it recurs. documented in this encounter [facility] 04-13-2024 Note HNO ID: [id number] Author: AKUA WEINSTEIN RN Service: ? Author Type: Registered Nurse Type: Progress Notes Filed: 05/29/2024 10:48 Note Text: EKG completed. Pt with no voiced complaints. Pt has stopped taking tikosyn. Dr. Pino notified of the completion. [facility] 04-12-2024 Note HNO ID: [id number] Author: ODALYS PINO MD Service: ? Author Type: Physician Type: Progress Notes Filed: 04/12/2024 10:39 Note Text: xxx [facility] 04-12-2024 History of Present illness Narrative xxx documented in this encounter [facility] 04-12-2024 Note HNO ID: [id number] Author: ODALYS PINO MD Service: Electrophysiology Author Type: Physician Type: Progress Notes Filed: 04/16/2024 17:36 Note Text: [facility] NOTE NAME: IRENA PERAZA CLINIC NO.: [id number] DATE OF SERVICE: 04/12/2024 ATTENDING PHYSICIAN: Odalys Pino M.D. SUBJECTIVE: Mr. Peraza is a 79-year-old [...] the afternoon for another EKG. DICTATED BY: Sergei Deng/PAOLA JOB# [id number] [facility] 04-10-2024 History of Present illness Narrative Images [...] ankle 01/26/2023 COPD (chronic obstructive pulmonary disease) ([facility]) Deformity of metatarsal 01/26/2023 Degenerative cervical disc 01/26/2023 Degenerative disc disease, cervical Depression (CMS/HCC) 01/26/2023 Elevated PSA 01/26/2023 Enlarged prostate 01/26/2023 Erosion of intestine 01/26/2023 Flank pain 01/26/2023 Former smoker 01/26/2023 Gastroesophageal reflux disease 01/26/2023 Hammer toe 2000 Insomnia, unspecified Median neuropathy, right Melanoma ([facility]) 08/2012 left chest; MM; breslows depth 0.64mm; excised by Dr. Angeles Neck pain Obesity, Class I, BMI 30-34.9 01/03/2018 Obstructive sleep apnea Osteoarthritis 08/06/2015 Pain in joint, upper arm Pain in limb Perianal wart 01/26/2023 Radiculopathy, lumbosacral region Restless legs syndrome (RLS) Rotator cuff syndrome 1993 Trigger finger Medications: [...] subungual debris. They were painful to palpation 79326 on the right 44638 on the left. VASC: DP /PT were nonpalpable bilateral. Capillary refill time < 3 seconds Digits 1-5 bilateral NEURO: Gibbon Tonny 5.07 monofilament was intact B/L. Vibratory [...] 10. DAMIAN Degroot documented in this encounter [facility] 03-27-2024 Telephone encounter Note The following approved medication requests have been transmitted electronically. Requested Prescriptions Signed Prescriptions Disp Refills atorvastatin (LIPITOR) 40 mg tablet 90 tablet 0 Sig: Take 1 tablet by mouth once daily. Need appointment for future refills Authorizing Provider: MICHAEL SIMMS Ordering User: SYBIL HAIRSTON APRN.CNP [facility] Work Phone: 03-27-2024 Miscellaneous Notes The following [...] this prescription request, call on cell at: [phone] (home) [phone] (cell) RX INSTRUCTIONS: Patient aware RX will be sent to pharmacy. No need to notify patient. Date of last office visit: 04/26/23 Date of last [facility] visit: Visit date not found Date [...] visit with this provider/department: Order place by [facility], Requested Prescriptions Pending Prescriptions Disp Refills atorvastatin (LIPITOR) 40 mg tablet 90 tablet 3 Sig: Take 1 tablet by mouth once daily. Idris Domingo March 27, 2024 11:49 AM documented in this encounter [facility] 03-27-2024 Telephone encounter Note Patient has been identified by name and date of : Yes Pharmacy phoned to request the following prescription(s) If there are any questions regarding this prescription request, call on cell at: [phone] (home) [phone] (cell) RX INSTRUCTIONS: Patient aware RX will be sent to pharmacy. No need to notify patient. Date of last office visit: 04/26/23 Date of last [facility] visit: Visit date not found Date [...] 06/07/2023 331 03/07/2019 252 Mily Smith RN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 tablet by mouth once daily.^Disp: ^Rfl: albuterol HFA (PROAIR HFA) 90 mcg/actuation inhaler^Inhale 2 Puffs as instructed every 6 hours as needed.^Disp: 1 Inhaler^Rfl: 0 Tyysfujllek-Ixqsiddce-Uxm C-Mn 500-400 mg cap^Take 1 capsule by [...] the prior echocardiographic exam performed on 02/27/2020 ([facility]). On direct image comparison, mid ascending thoracic [...] in the AGUS with no visualization of cassie-device leak or device related thrombus. - There [...] ABNORMAL ECG Confirmed by MARIEL CRUZ MD ([id number]) on 09/15/2022 10:04:27 AM Assessment & Plan [...] device (27mm Watchman FLX) seen without any cassie-device leak. Mild to Mod AR EKG showed NSR without any evidence of acute ischemia. LHC in 2012 showed mild disease in the prox LAD Labs from [place] showed an BUN/Cr of 15/1.34 with a [...] Take 1 tablet by mouth once daily. Aghfw-2-NEV-EPA-Fish Oil 1,000 mg (120 mg-180 mg) cap [...] (FLONASE) 50 mcg/actuation nasal spray Use 1 [place] in each nostril once daily. coenzyme Q10 100 mg cap Take 100 mg by mouth once daily. LORATADINE (CLARITIN ORAL) Take 1 tablet by mouth once daily. albuterol HFA (PROAIR HFA) 90 mcg/actuation inhaler Inhale 2 Puffs as instructed every 6 hours as needed. Hiwnuchelhx-Lekgpkroh-Wzg C-Mn 500-400 mg cap Take 1 capsule [...] which included preparing to see the patient, mwfr-ac-shke patient care, completing clinical documentation, performing a medically appropriate examination, counseling and educating the patient/family/caregiver and ordering medications, tests or procedures. Persistent atrial fibrillation (hcc) (primary encounter diagnosis) Presence of watchman left atrial appendage closure device Obesity, class i, bmi 30-34.9 Chronic diastolic congestive heart failure (hcc) Angeli Au MD documented in this encounterOhiohealth02-21-2024 Instructions* Patient Instructions* Dg Barrientos DO - [...] the office if questions. documented in this encounterOhiohealth02-21-2024 History of Present illness Narrative* Alpa Ram DO - 06/22/2023 2:52 PM EST Images from the original note were not included. [facility] - Medical [...] the neck, maybe 5 years ago at [facility] Prior spine surgery: L5-S1 discectomy in Previously treated by: -Recently seen by PA working with Spine Surgeon Dr. Al Wiley in [place] and was planning water PT. -Spine Medicine [...] CARDIOVERSION 11/14/15 CATHETER, ABLATION A-Fib, 2003 at [facility] HERNIA REPAIR HX 05/2011 left [...] CARDIOVERSION 11/14/15 CATHETER, ABLATION A-Fib, 2003 at [facility] HERNIA REPAIR HX 05/2011 left [...] fluticasone (FLONASE) 50 mcg/actuation nasal spray^Use 1 [place] in each nostril once daily.^Disp: ^Rfl: 0 coenzyme Q10 100 mg cap^Take 100 mg by mouth once daily. ^Disp: ^Rfl: albuterol HFA (PROAIR HFA) 90 mcg/actuation inhaler^Inhale 2 Puffs as instructed every 6 hours as needed.^Disp: 1 Inhaler^Rfl: 0 Nncoaeaqdfi-Aznbnfdvl-Fxh C-Mn 500-400 mg cap^Take 1 capsule by [...] 2023 TIME: 3:15 PM documented in this encounterOhiohealth02-15-2024 History of Present illness Narrative* Zuleyka Duque RT(R) - 06/16/2023 12:30 PM EST RADIOLOGY [...] PATIENT PRESENTS WITH AN IMPLANTABLE OR ATTACHED YOUTH PASTOR: No CREATININE: Creatinine Date Value Ref Range [...] Discontinued PROCEDURE TYPE: NM Stress: 14.0 mCi Cy02d-Rknojpt was administered IV for Rest Imaging at 1244 by AN. 35.3 mCi Sw18y-Hescnhr was administered IV for Stress Imaging at 1353 by AN. PATIENT DISCHARGED TO: Ambulatory patient, left NM department area. A Diagnostic radioactive procedure has taken place, with no further precautions necessary other than routine body substance precautions. More information regarding radiation safety can be found usingthis link: [email or web address] SIGNATURE: RT Kathe(Roscoe) PATIENT NAME: Irena Peraza DATE: June 16, 2023 TIME: 12:56 PM PAGER/CONTACT #: documented in this encounterOhiohealth02-14-2024 Miscellaneous Notes* Telephone Encounter - Sujatha Lim RN - 06/15/2023 2:08 PM EST Forward to Randa mcconnell. Please advise. * Telephone Encounter - Sujatha Lim RN - 06/15/2023 1:15 PM EST Patient scheduled for NM/Pharm stress test in [place] tomorrow, old order discontinued, need new order please. Forward to Dr. Simms. Please advise. documented in this encounterOhiohealth02-13-2024 History of Present illness Narrative* Haris Sutton [...] Acute on chronic diastolic congestive heart failure ([facility]) 10/31/2015 Acute right-sided low back pain with [...] spine pain 01/26/2023 Chronic obstructive lung disease ([facility]) 01/26/2023 Colon polyps 01/26/2023 Contracture, left ankle 01/26/2023 COPD (chronic obstructive pulmonary disease) ([facility]) Deformity of metatarsal 01/26/2023 Degenerative cervical disc 01/26/2023 Depression ([facility]) 01/26/2023 Elevated PSA 01/26/2023 Enlarged prostate 01/26/2023 Erosion of intestine 01/26/2023 Flank pain 01/26/2023 Former smoker 01/26/2023 Gastroesophageal reflux disease 01/26/2023 Melanoma ([facility]) 08/2012 left chest; MM; breslows depth 0.64mm; [...] subungual debris. They were painful to palpation 06003 on the right 19311 on the left. VASC: DP /PT were nonpalpable bilateral. Capillary refill time < 3 seconds Digits 1-5 bilateral NEURO: [place] Tonny 5.07 monofilament was intact B/L. Vibratory [...] 1through 10. DAMIAN Degroot documented in this encounterMercy Hospital St. [id number] History of Present illness Narrative* Zahira Infante [...] 10:15 AM PAGER/CONTACT #: documented in this encounterOhiohealth02-02-2024 Miscellaneous Notes* Telephone Encounter - Antonio Roman [...] advise. Jeaneth Jaquez Ma documented in this encounterOhiohealth10-04-2023 Hospital Discharge instructions Patient Education 02/02/2023 14:55:59 [...] treatment? Where to find more information [employer]: www.cancer.org [employer]: www.auanet.org Contact a health care [...] provider. Document Revised: 10/12/2021 Document Reviewed: 10/12/2021 [employer] Patient Education 2022 [place]. Follow Up Care 07/27/2022 11:51:56 With:ALLAN JARVIS, Nghia Elizabeth, URL Address: [address] [place] [id number]- When: Unknown [facility] 07-18-2023 Miscellaneous Notes* Telephone Encounter - Ny Macedo APRN.CNP - 11/16/2022 12:26 PM EDT The following approved medication requests have been transmitted electronically. Requested Prescriptions Signed Prescriptions Disp Refills furosemide (LASIX) 20 mg tablet 90 tablet 3 Sig: Take 1 tablet by mouth once daily. Authorizing Provider: ANGELI AU Ordering User: NY MACEDO Prescription was sent to [facility] in [place], [place], as per patient request. Ny Macedo APRN.CHA documented in this encounterOhiohealth07-14-2023 Miscellaneous Notes* Telephone Encounter - Nadir Flaherty [...] - 1.22 mg/dL Final documented in this encounterOhiohealth06-22-2023 Miscellaneous Notes* Telephone Encounter - Esther Rapp [...] cardiology office: 09/14/2022 Dr. Kemp. 01/06/2022 Dr. Pino Upcoming appointment scheduled: None scheduled at this [...] RN - 10/21/2022 1:05 PM EDTMessage from [facility]: Refills have been requested for the following medications: atenolol (TENORMIN) 50 mg tablet [Dr. Nathaniel Pino] [facility] [address] [place] [id number] - [address] [facility] - [phone] Delivery method: Pickup documented in this encounterOhiohealth05-27-2023 Miscellaneous Notes* Telephone Encounter - Moustapha Melvin APRN.CNP - 09/25/2022 2:23 PM EDT The following approved medication requests have been transmitted electronically. Requested Prescriptions Signed Prescriptions Disp Refills dofetilide (TIKOSYN) 500 mcg capsule 180 capsule 3 Sig: Take 1 capsule by mouth twice daily. Authorizing Provider: ODALYS PINO Ordering User: MOUSTAPHA MELVIN APRN.CNP * Telephone [...] last seen in cardiology office: 01/06/2022 Dr. Pino. Upcoming appointment scheduled: none. Labs: Hemoglobin (g/dL) Date Value 05/18/2022 13.3 08/28/2020 13.8 Hematocrit (%) Date Value 05/18/2022 41.3 08/28/2020 42.3 WBC (k/uL) Date Value 05/18/2022 6.94 08/28/2020 7.89 Platelet Count (k/uL) Date Value 05/18/2022 271 08/28/2020 263 Creatinine Date Value Ref Range Status 05/12/2022 0.98 0.73 - 1.22 mg/dL Final 07/02/2021 1.05 0.73 - 1.22 mg/dL Final documented in this encounterOhiohealth05-16-2023 History of Present illness Narrative* Kaylah Kemp MD - 09/14/2022 2:15 PM EDT Images from the original note were not included. [facility] Department of Cardiovascular Medicine SECTION OF CARDIAC PACING and ELECTROPHYSIOLOGY OUTPATIENT VISIT DATE September 14, 2022 OUTPATIENT VISIT TYPE ESTABLISHED PRIMARY CARE PHYSICIAN: Scarlett Gaviria NP [address] [facility] [place] [address] CHIEF COMPLAINT: Follow up visit s/p Watchman [...] LAD CARDIOVERSION 11/14/15 CATHETER, ABLATION A-2003 at [facility] HERNIA REPAIR HX 05/2011 left [...] by mouth once daily.^Disp: 30 tablet^Rfl: 5 Mybrp-5-QJE-EPA-Fish Oil 1,000 mg (120 mg-180 mg) cap^Take [...] fluticasone (FLONASE) 50 mcg/actuation nasal spray^Use 1 [place] in each nostril once daily.^Disp: ^Rfl: 0 coenzyme Q10 100 mg cap^Take 100 mg by mouth once daily. ^Disp: ^Rfl: LORATADINE (CLARITIN ORAL)^Take 1 tablet by mouth once daily.^Disp: ^Rfl: albuterol HFA (PROAIR HFA) 90 mcg/actuation inhaler^Inhale 2 Puffs as instructed every 6 hours as needed.^Disp: 1 Inhaler^Rfl: 0 Txbkxgytvpg-Qyujxfpju-Tkq C-Mn 500-400 mg cap^Take 1 capsule by [...] Intolerance, Excessive Sweating, Frequent Urination, FrequentThirst Rosa Covington RN I have seen and evaluated the patient and confirmed the findings of the Physician Map Clerk/Nurse Practitioner or fellow/resident above, with the addition [...] in the AGUS with no visualization of cassie-device leak or device related thrombus. - There [...] the prior echocardiographic exam performed on 02/27/2020 ([facility]). On direct image comparison, mid ascending thoracic aorta measures larger today. Aortic regurgitation also appears mildly more prominent. ESSION/PLAN AND RECOMMENDATIONS: [facility] COMPLAINT: Follow up visit s/p Watchman HISTORY [...] INFORMATION: Kaylah Kemp MD documented in this encounterOhiohealth05-04-2023 Miscellaneous Notes* Telephone Encounter - Teresa Goldberg APRN.CNP - 09/02/2022 5:[address] Pino not managing the dyslipidemia please send to primary care physician thank you Teresa Goldberg APRN.CNP * Telephone Encounter - Keily Ford LPN - 09/01/2022 2:14 PM EDT Received request for refill of the following medications: Requested Prescriptions No prescriptions requested or ordered in this encounter Patient requested a 90 day refill. Pharmacy verified and updated accordingly. Patient was last seen in cardiology office: 07/08/2021 DR PINO Upcoming appointment scheduled: 09/14/2022 DR KEMP Labs: Hemoglobin (g/dL) Date Value 05/18/2022 13.3 08/28/2020 13.8 Hematocrit (%) Date Value 05/18/2022 41.3 08/28/2020 42.3 WBC (k/uL) Date Value 05/18/2022 6.94 08/28/2020 7.89 Platelet Count (k/uL) Date Value 05/18/2022 271 08/28/2020 263 Creatinine Date Value Ref Range Status 05/12/2022 0.98 0.73 - 1.22 mg/dL Final 07/02/2021 1.05 0.73 - 1.22 mg/dL Final documented in this encounterOhiohealth05-02-2023 Miscellaneous Notes* Telephone Encounter - Bryanna Davidson - 08/31/2022 8:57 AM EDT Call from patient requesting refill. Requested Prescriptions Pending Prescriptions Disp Refills apixaban (ELIQUIS) 5 mg tab(s) 180 tablet 3 Sig: Take 1 tablet by mouth twice daily. Patient last seen 04/13/22 Bryanna Davidson documented in this encounterOhiohealth04-20-2023 Hospital Discharge instructions Follow Up Care 08/19/2022 15:50:16 With:Jevon Pantoja DO, ONC Address: [address] [address]- [phone] Fax Business (1) When: Unknown [facility]03-28-2023 Hospital Discharge instructions Patient Education 07/27/2022 11:45:36 [...] urethra. Follow these instructions at home: Take jvmg-ghi-mriqrfl and prescription medicines only as told by [...] 04/18/2006 Document Revised: 03/13/2019 Document Reviewed: 05/23/2017 [employer] Patient Education 2020 [place]. Follow Up Care 01/26/2022 11:15:57 With:JOYCE JARVIS, Irena Dejesus, URL Address: [address] [place], [place] [id number]- When: Unknown [facility] 03-21-2023 Miscellaneous Notes* Telephone Encounter - Kristina Dougherty - 07/20/2022 8:57 AM EDT Spoke with patient. He is scheduled for a Nurse Visit for an EKG on 07/21 @ 1:30pm at [facility]. * Telephone Encounter - Trixie Ely RN - 07/19/2022 2:53 PM EDT Called and left detailed message for him and included openings for nurse visits on Tuesday. Askedhim to call us and make sure he is scheduled for it on Tuesday, as we must see the EKG before we can send his refill over. * Telephone Encounter - Moustapha Melvin APRN.CHA - 07/19/2022 2:41 PM EDT Reviewed EKGs with Dr. Pino. He would like a repeat EKG. If possible to do in the office tomorrow, Tuesday or , I can personally review this and send prescription. Need to ensure that QTcis acceptable prior to providing refills. Moustapha Melvin APRN.CHA * Telephone Encounter - Caryl Jimenez - 07/16/2022 3:15 PM EDT Patient called procedure space scheduler, advising he will run out of Tikosyn as of 07/23/2022. Would likerefills called to the [facility] on account. documented in this encounterOhiohealth02-14-2023 NotePROCEDURE: XR FOOT LT MIN 3 VIEWS [...] Electronically authenticated by: BOUBACAR CORDERO Date: 2022-06-15 11:35[facility]01-24-2023 Miscellaneous Notes* Telephone Encounter - Lucie Junior RN - 05/25/2022 5:31 PM EST Returned call, device clinic does not directly work with Watchman implants. Left voicemail with patient for [employer] as ID cards would come from them. * Telephone Encounter - Bryanna Davidson - 05/25/2022 3:36 PM EST May 25, 2022 Patient Contact Number: [phone] (home) [phone] (cell) Patient last seen within the last year Yes Reason For Call: Patient had the watchman implanted on 05/19/22 the card that he received states he had it implanted on 05/19/24 (the year is wrong) will this be an issue or will he have to get another card. 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 Supplemental Material Given: Written Material Patient education regarding radiation exposure. Instructed By Ny Vásquez RN, RN. In Department of CARDIOLOGY. documented in this encounterOhiohealth01-17-2023 History of Present illness Narrative* Flory Maravilla MD - 05/18/2022 1:45 PM EST Images from the original note were not included. [facility] Department of Cardiovascular Medicine SECTION OF CARDIOVASCULAR IMAGING OUTPATIENT VISIT DATE May 18, 2022 OUTPATIENT VISIT TYPE CONSULTATION PRIMARY CARE PHYSICIAN: Scarlett Gaviria NP [facility] [place] [address] REFERRING PHYSICIAN Kaylah Kemp [address] [facility] [id number] CHIEF COMPLAINT: Patient presents with: Preprocedural evaluation HISTORY OF PRESENT ILLNESS: Cardiac consultation at the request of Dr. Kaylah Kemp. A copy of this consultation note will be provided to the requesting physician by way of shared Medical record or letter to requesting physician via US mail. Mr. Pearza is a 77 year old male who [...] preamture CAD or SCD. Retired from [employer]. Former [employer] personnel. Currently does not exercise. NURSING INTAKE: Mr. Peraza is a 77 year old male from [place], [place], presenting today for cardiac consultation at therequest of Dr. Kaylah Kemp for shared decision [...] times since his first GI bleed. Dr. Pino recommended he go back on his Eliquis [...] near syncope. Mr. Peraza was in the [employer] for 4 years. He is now retired from [employer]. He does not follow a specific diet. He does not currently follow a specific exercise regimen. Dr. Au and Gianfranco from [place]. . PAST CARDIAC HISTORY: PAST MEDICAL HISTORY [...] CARDIOVERSION 11/14/15 CATHETER, ABLATION A-Fib, 2003 at [facility] HERNIA REPAIR HX 05/2011 left [...] by mouth once daily.^Disp: 30 tablet^Rfl: 5 Mtlmx-4-NIE-EPA-Fish Oil 1,000 mg (120 mg-180 mg) cap^Take [...] fluticasone (FLONASE) 50 mcg/actuation nasal spray^Use 1 [place] in each nostril once daily.^Disp: ^Rfl: 0 coenzyme Q10 100 mg cap^Take 100 mg by mouth once daily. ^Disp: ^Rfl: LORATADINE (CLARITIN ORAL)^Take 1 tablet by mouth once daily.^Disp: ^Rfl: albuterol HFA (PROAIR HFA) 90 mcg/actuation inhaler^Inhale 2 Puffs as instructed every 6 hours as needed.^Disp: 1 Inhaler^Rfl: 0 Vfxeohoeqta-Jqxkfsygs-Xjt C-Mn 500-400 mg cap^Take 1 capsule by [...] the prior echocardiographic exam performed on 02/27/2020 ([facility]). On direct image comparison, mid ascending thoracic [...] Department of Cardiovascular Medicine [facility] / documented in this encounterOhiohealth01-06-2023 Miscellaneous Notes* Telephone Encounter - Lynn Purdy MA - 05/07/2022 1:08 PM EST Received request for refill of the following medications: Requested Prescriptions Pending Prescriptions Disp Refills atorvastatin (LIPITOR) 40 mg tablet 90 tablet 3 Sig: Take 1 tablet by mouth once daily. Patient requested a 90 day refill. Pharmacy verified and updated accordingly. Patient was last seen in cardiology office: 01/06/2022 Dr. Pino. Upcoming appointment scheduled: none. Labs: Hemoglobin (g/dL) Date Value 07/02/2021 9.6 08/28/2020 13.8 Hematocrit (%) Date Value 07/02/2021 30.3 08/28/2020 42.3 WBC (k/uL) Date Value 07/02/2021 7.62 08/28/2020 7.89 Platelet Count (k/uL) Date Value 07/02/2021 211 08/28/2020 263 Creatinine Date Value Ref Range Status 07/02/2021 1.05 0.73 - 1.22 mg/dL Final 03/09/2021 0.87 0.73 - 1.22 mg/dL Final documented in this encounterOhiohealth12-19-2022 Miscellaneous Notes* Telephone Encounter - Patricia Marie [...] you. Kaylah Kemp MD documented in this encounterOhiohealth12-14-2022 Miscellaneous Notes* Telephone Encounter - Rachel Madden - 04/14/2022 9:30 AM EST Images from the original note were not included. April 14, 2022 Patient Contact Number: [phone] (home) [phone] (cell) Patient last seen within the last year: Yes Reason For Call: Other Issue: Note received from Mr. Peraza's GI physician that he may resume blood thinners for planned procedure with Dr. Kemp. Note scanned into [employer] [address]. Rachel [id number] documented in this encounterOhiohealth12-13-2022 History of Present illness Narrative* Kaylah Kemp MD - 04/13/2022 8:46 AM EST Images from the original note were not included. [facility] Department of Cardiovascular Medicine SECTION OF CARDIAC PACING and ELECTROPHYSIOLOGY OUTPATIENT VISIT DATE April 13, 2022 OUTPATIENT VISIT TYPE CONSULTATION PRIMARY CARE PHYSICIAN: Scarlett Gaviria NP [address] [place] [address] REFERRING PHYSICIAN SELF CHIEF COMPLAINT: AF Watchman [...] CARDIOVERSION 11/14/15 CATHETER, ABLATION A-, 2003 at [facility] HERNIA REPAIR HX 05/2011 left [...] TAKE 1 TABLET BY MOUTH ONCE DAILY Umgul-5-EHD-EPA-Fish Oil 1,000 mg (120 mg-180 mg) cap [...] (FLONASE) 50 mcg/actuation nasal spray Use 1 [place] in each nostril once daily. coenzyme Q10 100 mg cap Take 100 mg by mouth once daily. LORATADINE (CLARITIN ORAL) Take 1 tablet by mouth once daily. CALCIUM CARBONATE/VITAMIN D3 (CALCIUM + D ORAL) Take 1 tablet by mouth twice daily. albuterol HFA (PROAIR HFA) 90 mcg/actuation inhaler Inhale 2 Puffs as instructed every 6 hours as needed. Imhcalrgyuv-Cshrmsciq-Znd C-Mn 500-400 mg cap Take 1 capsule [...] INFORMATION: Kaylah Kemp MD documented in this encounterOhiohealth10-20-2022 Hospital Discharge instructions Follow Up Care 02/18/2022 14:18:00 With:Jevon Pantoja Address: [facility] [address] [place] [address] [phone] Fax Business (1) When: Unknown Comments:injectafer x 2 doses. cbc, cmp, iron studies q3mos f/u in a year. [facility]09-27-2022 Hospital Discharge instructions Patient Education 01/26/2022 10:57:16 [...] urethra. Follow these instructions at home: Take fbek-bbz-lfhyuwt and prescription medicines only as told by [...] 04/18/2006 Document Revised: 03/13/2019 Document Reviewed: 05/23/2017 [employer] Patient Education 2020 [place]. Follow Up Care 12/30/2021 10:17:50 With:JOYCE JARVIS, Irena Dejesus, URL Address: [address] [place] [address]- When: Unknown [facility] 09-02-2022 Miscellaneous Notes* Telephone Encounter - Caryl Jimenez - 01/01/2022 3:20 PM EDT Patient called procedure space scheduler, advised he received the earlier message from Dr. Pino' nurse. Patient requested lab orders be faxed to [facility] while he was there getting an injection. Faxed and confirmed with tech/patient as being received. Results will be faxed to [phone] once complete. * Telephone Encounter - Trixie Ely RN - 01/01/2022 9:23 AM EDT Called and left voicemail message for the patient per below message. Will try reaching him again shy later time to be sure he got the message. * Telephone Encounter - Moustapha Melvin APRN.CASHIERS SUPERVISOR - 01/01/2022 7:07 AM EDT Reviewed below. Upon reviewing discharge summary, patient was to have follow up with a few specialists and is not to resume Eliquis until cleared by GI and hematology. Dr. Pino does not manage this patient's furosemide, but with recent blood loss he should not resume this provided that his weight is stable and he is not having LE edema, abdominal bloating or difficulties breathing. Recommend that he obtain labs prior to his appointment with Dr. Pino. I have placed orders for this. Moustapha Melvin APRN.CASHIERS SUPERVISOR * Telephone Encounter - Caryl Jimenez - 12/31/2021 12:50 PM EDT Patient left a voice message on procedure space scheduler's number regarding his recent 12/20/2021 hospital admission at [facility]. States he presented to the emergency room with dizziness and having shakes. Blood count was 5.3 and received 4 units of blood . Taken off Lasix and Eliquis, is inquiring about when he should return to the medications. Patient has a 01/06 appointment in office with Dr. Pino, per previous encounter the [facility]'s records from this stay have been scanned into [employer]. Please contact patient today at [phone] cell, granting permission to leave a message. Routing to nursing to triage the call and then seek CASHIERS SUPERVISOR recommendation. documented in this encounterOhiohealth08-26-2022 Miscellaneous Notes* Telephone Encounter - Lynn Purdy MA - 12/25/2021 8:02 AM EDT Received recent hospital stay records from [facility]. Next appt with Dr. Pino 01/06/2022. Sent for scanning. documented in this encounterOhiohealth08-24-2022 Hospital Discharge instructions Follow Up Care 12/23/2021 12:37:02 With:Jevon Pantoja Address: [facility] [place] [address] [phone] Fax Business (1) When: Unknown Comments:f/u in 8 wks. cbc weeklyiron studies monthlygive two doses of injectafer 750mg. refer to Dr. Sanabria. [facility]08-02-2022 Hospital Discharge instructions Patient Education 12/01/2021 10:23:38 [...] powder, vinegar, hot sauces, and barbecue sauce. ?Piatt fruit juices and citrus fruits, such as oranges, maribell, and limes. ?Tomato-based foods, such as red sauce, chili, salsa, and pizza with red sauce. ?Fried and fatty foods, such as donuts, micronesian fries, potato chips, and high-fat dressings. ?High-fat [...] to any changes in your symptoms. Take fuxp-hdu-yabfuyj and prescription medicines only as told by [...] you have new or worsening symptoms. Take omau-cfv-ratjxmq and prescription medicines only as told by [...] 01/26/2006 Document Revised: 10/25/2018 Document Reviewed: 10/25/2018 [employer] Patient Education [employer]. Follow Up Care 01/15/2021 10:07:12 With:Patricia Le CNP Address: When:6 months [facility] 07-07-2022 Hospital Discharge instructions Follow Up Care 11/05/2021 11:31:34 With:Jevon Pantoja Address: [place] [address] [place] [address] [phone] Fax Business (1) When: Unknown Comments:monthly cbc cmp, iron studies. f/u 6 months. [facility]07-05-2022 Hospital Discharge instructions Follow Up Care 11/03/2021 14:24:03 With:Jevon Pantoja Address: [place] [address] [place] [address] [phone] Fax Business (1) When: Unknown Comments:cbc, cmp, iron studies, b12, folate, methylmalonic acid, spep, sflc, simmunofixation, esr, ldh today. cbc prior to f/u in 3 months. [facility]06-22-2022 Miscellaneous Notes* Telephone Encounter - Chika Morin APRN.CNP, DNP - 10/21/2021 4:02 PM EDT The following approved medication requests have been transmitted electronically. Signed Prescriptions Disp Refills apixaban (ELIQUIS) 5 mg tab(s) 180 tablet 3 Sig: Take 1 tablet by mouth twice daily. MIKE: No Authorizing Provider: CHIKA MORIN APRN.CNP, DNP * Telephone Encounter - Keily Ford LPN - 10/21/2021 10:23 AM EDT Received request for refill of the following medications: Pending Prescriptions Disp Refills APIXABAN 5 MG TABLET 180 tablet 3 Sig: Take 1 tablet by mouth twice daily. MIKE: No Patient requested a 90 day refill. Pharmacy verified and updated accordingly. Patient was last seen in cardiology office: 07/08/2021 dr pino Upcoming appointment scheduled:01/08/2022 dr pino Labs: Hemoglobin (g/dL) Date Value 07/02/2021 9.6 [...] Maria Antonia Rock Pss documented in this encounterOhiohealth06-20-2022 Miscellaneous Notes* Telephone Encounter - Moustapha Melvin APRN.CASHIERS SUPERVISOR - 10/19/2021 3:36 PM EDT The following approved medication requests have been transmitted electronically. Signed Prescriptions Disp Refills atenolol (TENORMIN) 50 mg tablet 90 tablet 3 Sig: Take 1 tablet by mouth once daily. MIKE: No Authorizing Provider: ODALYS PINO Ordering User: MOUSTAPHA MELVIN APRN.CASHIERS SUPERVISOR * Telephone Encounter - Keily Ford LPN - 10/16/2021 8:56 AM EDT Received request for refill of the following medications: Pending Prescriptions Disp Refills ATENOLOL 50 MG TABLET 90 tablet 3 Sig: Take 1 tablet by mouth once daily. MIKE: No Patient requested a 90 day refill. Pharmacy verified and updated accordingly. Patient was last seen in cardiology office: 07/08/2021 dr pino Upcoming appointment scheduled: 01/08/2022 dr pino Labs: Hemoglobin (g/dL) Date Value 07/02/2021 9.6 08/28/2020 13.8 Hematocrit (%) Date Value 07/02/2021 30.3 08/28/2020 42.3 WBC (k/uL) Date Value 07/02/2021 7.62 08/28/2020 7.89 Platelet Count (k/uL) Date Value 07/02/2021 211 08/28/2020 263 Creatinine Date Value Ref Range Status 07/02/2021 1.05 0.73 - 1.22 mg/dL Final 03/09/2021 0.87 0.73 - 1.22 mg/dL Final * Telephone Encounter - Jumana Shannon - 10/15/2021 4:16 PM EDT Patient calling to request a refill on the medication(s) below: Pending Prescriptions Disp Refills ATENOLOL 50 MG TABLET 90 tablet 3 Sig: Take 1 tablet by mouth once daily. MIKE: No Last seen in office: 07/08/2021 Jumana Shannon [facility] Metallurgical Laboratory Assistant documented in this encounterOhiohealth05-17-2022 Hospital Discharge instructions Patient Education 09/15/2021 10:52:21 [...] urethra. Follow these instructions at home: Take olpr-gxb-srajgxp and prescription medicines only as told by [...] 04/18/2006 Document Revised: 03/13/2019 Document Reviewed: 05/23/2017 [employer] Patient Education 2020 [place]. 09/15/2021 10:52:18 Calorie Counting for Weight Loss Calorie Counting for Weight Loss Calories are units of energy. Your body needs a certain amount of calories from food to keep you going throughout the day. When you eat more calories than your body needs, your body stores the extra calories as fat. When you eat fewer calories than your body needs, your body chappell fat to get the energy it needs. [...] 04/18/2006 Document Revised: 01/05/2019 Document Reviewed: 03/18/2017 [employer] Patient Education 2020 [place]. Follow Up Care 07/13/2021 11:43:44 With:JOYCE JARVIS, Irena Dejesus, URL Address: [address] [place] [phone] [phone] When:12/16/2021 [facility] 04-15-2022 Miscellaneous Notes* Telephone Encounter - Caryl Jimenez - 08/14/2021 2:45 PM EDT Office printing supplies sales representative, Carmen from [facility] called space scheduler advising patient is being scheduled for an EGD and is faxing over a request to have patient hold the Eliquis for 2 days prior. Received faxed clearance and offered to Wilder Salazar LPN to address. documented in this encounterOhiohealth03-28-2022 Hospital Discharge instructions Patient Education 07/27/2021 10:38:07 Colonoscopy, Care After Surgery Miky (CUSTOM) Colonoscopy Care After Surgery Please read [...] day. Follow Up Care 07/15/2021 11:13:52 With:Florentino SANABRIA Address: [address] [phone] Business (1) When: Unknown Comments:Off ice will date and time of follw-up appt. [facility] Future App[facility]ments Appointment Date:09/15/2021 09:45:00 AM Scheduled Provider:Irena COKO MD Location:[facility] Appointment Type:URO Office Visit Appointment Date:12/01/2021 10:00:00 AM Scheduled Provider:Patricia Le CNP Location:[facility] Appointment Type:[facility] Future Appointments Appointment Date:08/14/2021 12:40:00 PM Scheduled Provider:Patricia Le CNP Location:[facility] Appointment Type:BAD Follow Up Appointment Date:09/15/2021 09:45:00 AM Scheduled Provider:Irena COOK MD Location:[facility] Appointment Type:URO Office Visit Appointment Date:12/01/2021 10:00:00 AM Scheduled Provider:Patricia Le CNP Location:[facility] Appointment Type:[facility] Future App[facility]ments Appointment Date:12/01/2021 10:00:00 AM Scheduled Provider:Patricia Le CNP Location:[facility] Appointment Type:BAD Follow Up Appointment Date:12/22/2021 12:45:00 PM Scheduled Provider:Irena COOK MD Location:[facility] Appointment Type:URO Office Visit [facility] Evaluation + Plan note Future Appointments Appointment Date:12/01/2021 10:00:00 AM Scheduled Provider:Patricia Le CNP Location:[facility] Appointment Type:BAD Follow Up Appointment Date:12/22/2021 12:45:00 PM Scheduled Provider:Irena COOK MD Location:[facility] Appointment Type:URO Office Visit Appointment Date:02/04/2022 12:30:00 PM Scheduled Provider:Jevon Pantoja DO Location:.[facility] Appointment Type:ONC Office Visit 15 (FT) Diagnostic Tests Pending * Methylmalonic Acid 11/05/21 * Free K+L Lt Chains,Qn,S 11/05/21 * SRINIVAS and PE, Serum 11/05/21 Future Scheduled Tests Laboratory* CBC w/ Auto Diff 02/05/22 [facility] Future App[facility]ments Appointment Date:12/22/2021 12:45:00 PM Scheduled Provider:Irena COOK MD Location:[facility] Appointment Type:URO Office Visit Appointment Date:02/04/2022 12:30:00 PM Scheduled Provider:Jevon Pantoja DO [facility] Type:ONC Office Visit 15 (FT) Appointment Date:05/04/2022 10:40:00 AM Scheduled Provider:Patricia Le CNP Location:[facility] Appointment Type:[facility] Follow Up Future Scheduled Tests Laboratory* CBC w/ Auto Diff 02/05/22 [facility] Evaluation + Plan note Future Appointments Appointment Date:02/18/2022 01:15:00 PM Scheduled Provider:Jevon Pantoja DO [facility] Type:ONC Office Visit 15 (FT) Appointment Date:05/04/2022 10:40:00 AM Scheduled Provider:Patricia Le CNP Location:[facility] Appointment Type:[facility] Follow Up Future Scheduled Tests Laboratory* CBC w/ Auto Diff 02/05/22 [facility] Future App[facility]ments Appointment Date:01/06/2022 09:00:00 AM Scheduled Provider:Florentino SANABRIA MD Location:[facility] Appointment Type:[facility] Follow Up Appointment Date:01/08/2022 11:00:00 AM Scheduled Provider: [facility] Type:ONC Injectafer (FT) Appointment Date:01/26/2022 10:00:00 AM Scheduled Provider:Irena COOK MD Location:[facility] Appointment Type:URO Office Visit Appointment Date:02/18/2022 01:15:00 PM Scheduled Provider:Jevon Pantoja DO [facility] App[facility] Type:ONC Office Visit 15 (FT) Appointment Date:05/04/2022 10:40:00 AM Scheduled Provider:Patricia Le CNP Location:[facility] Appointment Type:BAD Follow Up Future [...] Saturation 02/19/22 * Iron Percent Saturation 03/22/22 [facility] Future App[facility]ments Appointment Date:01/08/2022 11:00:00 AM Scheduled Provider: [facility] Appoint[facility] Type:ONC Injectafer () Appointment Date:01/26/2022 10:00:00 AM Scheduled Provider:Irena COOK MD Location:[facility] Appointment Type:URO Office Visit Appointment Date:02/18/2022 01:15:00 PM Scheduled Provider:Jevon Pantoja DO [facility] Appoint[facility] Type:ONC Office Visit 15 () Appointment Date:05/04/2022 10:40:00 AM Scheduled Provider:Patricia Le CNP Location:[facility] Appointment Type:BAD Follow Up Future [...] Saturation 02/19/22 * Iron Percent Saturation 03/22/22 [facility] Evaluation + Plan note Future Appointments Appointment Date:01/26/2022 10:00:00 AM Scheduled Provider:Irena COOK MD Location:[facility] Appointment Type:URO Office Visit Appointment Date:02/18/2022 01:15:00 PM Scheduled Provider:Jevon Pantoja DO Location:[facility] Appointment Type:ONC Office Visit 15 (FT) Appointment Date:05/04/2022 10:40:00 AM Scheduled Provider:Patricia Le CNP Location:[facility] Appointment Type:[facility] Follow Up Future Scheduled Tests Laboratory* [...] Saturation 02/19/22 * Iron Percent Saturation 03/22/22 [facility] Future App[facility]ments Appointment Date:01/26/2022 10:00:00 AM Scheduled Provider:Irena COOK MD Location:[facility] Appointment Type:URO Office Visit Appointment Date:02/18/2022 01:15:00 PM Scheduled Provider:Jevon Pantoja DO Location:[facility] Appointment Type:ONC Office Visit 15 (FT) Appointment Date:05/04/2022 10:40:00 AM Scheduled Provider:Patricia Le CNP Location:[facility] Appointment Type:BAD Follow Up Future [...] 03/22/22 Radiology* XR Abdomen 1 View 01/18/22 [facility] Evaluation + Plan note Future Appointments Appointment Date:01/26/2022 10:00:00 AM Scheduled Provider:Irena COOK MD Location:[facility] Appointment Type:URO Office Visit Appointment Date:02/18/2022 01:15:00 PM Scheduled Provider:Jevon Pantoja DO [facility] Appointment Type:ONC Office Visit 15 (FT) Appointment Date:05/04/2022 10:40:00 AM Scheduled Provider:Patricia Le CNP Location:[facility] Appointment Type:[facility] Follow Up Future Scheduled Tests Laboratory* [...] Saturation 02/19/22 * Iron Percent Saturation 03/22/22 [facility] Future Appointments Appointment Date:02/18/2022 01:15:00 PM Scheduled Provider:Jevon Pantoja DO [facility] Appointment Type:ONC Office Visit 15 () Appointment Date:05/04/2022 10:40:00 AM Scheduled Provider:Patricia Le CNP Location:[facility] Appointment Type:[facility] Follow Up Appointment Date:07/27/2022 10:45:00 AM Scheduled Provider:Irena COOK MD Location:[facility] Appointment Type:URO Office Visit Future Scheduled Tests [...] Abdomen 1 View 01/25/22 [facility] Evaluation + Plan note Future Appointments Appointment Date:02/18/2022 01:15:00 PM Scheduled Provider:Jevon Pantoja DO [facility] Appointment Type:ONC Office Visit 15 () Appointment Date:03/11/2022 10:00:00 AM Scheduled Provider:Patricia Le CNP Location:[facility] Appointment Type:[facility] Follow Up Appointment Date:05/04/2022 10:40:00 AM Scheduled Provider:Patricia Le CNP Location:[facility] Appointment Type:[facility] Follow Up Appointment Date:07/27/2022 10:45:00 AM Scheduled Provider:Irena COOK MD Location:[facility] Appointment Type:URO Office Visit Future Scheduled Tests [...] 03/22/22 Radiology* XR Abdomen 1 View 01/25/22 [facility] Evaluation + Plan note Future Appointments Appointment Date:05/04/2022 10:40:00 AM Scheduled Provider:Patricia Le CNP Location:[facility] Appointment Type:BADH Follow Up Appointment Date:05/25/2022 01:00:00 PM Scheduled Provider:Patricia Le CNP Location:[facility] Appointment Type:BADH Follow Up Appointment Date:07/27/2022 10:45:00 AM Scheduled Provider:Irena COOK MD Location:[facility] Appointment Type:URO Office Visit Appointment Date:08/19/2022 01:30:00 PM Scheduled Provider:Jevon Pantoja DO [facility] Appointment Type:ONC Office Visit 15 (FT) Future [...] 08/19/22 Radiology* XR Abdomen 1 View 01/25/22 [facility] App[facility] Appointment Date:07/15/2022 02:00:00 PM Scheduled Provider:Florentino SANABRIA MD Location:[facility] Appointment Type:BADH Follow Up Appointment Date:07/27/2022 10:45:00 AM Scheduled Provider:Irena COOK MD Location:[facility] Appointment Type:URO Office Visit Appointment Date:08/19/2022 01:30:00 PM Scheduled Provider:Jevon Pantoja DO [facility] Appointment Type:ONC Office Visit 15 (FT) Future [...] 08/19/22 Radiology* XR Abdomen 1 View 01/25/22 [facility] Future App[facility]ments Appointment Date:07/15/2022 02:00:00 PM Scheduled Provider:Florentino SANABRIA MD Location:[facility] Appointment Type:BAD Follow Up Appointment Date:07/27/2022 10:45:00 AM Scheduled Provider:Irena COOK MD Location:[facility] Appointment Type:URO Office Visit Appointment Date:08/19/2022 01:30:00 PM Scheduled Provider:Jevon Pantoja DO [facility] Appointment Type:ONC Office Visit 15 () Diagnostic Tests Pending * Sputum Culture 06/24/22 [...] 08/19/22 Radiology* XR Abdomen 1 View 01/25/22 [facility] App[facility]ments Appointment Date:07/21/2022 08:15:00 PM Scheduled Provider: [facility] Appointment Type:VALUER Sleep Study SPLIT () Appointment Date:07/27/2022 10:45:00 AM Scheduled Provider:Irena COOK MD Location:[facility] Appointment Type:URO Office Visit Appointment Date:08/19/2022 01:30:00 PM Scheduled Provider:Jevon Pantoja DO [facility] Appointment Type:ONC Office Visit 15 () Appointment Date:10/14/2022 12:15:00 PM Scheduled Provider:Florentino SANABRIA MD Location:[facility] Appointment Type:[facility] Follow Up Future Scheduled Tests Laboratory* [...] 08/19/22 Radiology* XR Abdomen 1 View 01/25/22 [facility] Evaluation + Plan note Future Appointments Appointment Date:07/27/2022 10:45:00 AM Scheduled Provider:Irena COOK MD Location:[facility] Appointment Type:URO Office Visit Appointment Date:08/19/2022 01:30:00 PM Scheduled Provider:Jevon Pantoja DO [facility] Appointment Type:ONC Office Visit 15 (FT) Appointment Date:10/14/2022 12:15:00 PM Scheduled Provider:Florentino SANABRIA MD Location:[facility] Appointment Type:BAD Follow Up Future Scheduled Tests Laboratory* PSA Free & Total 05/02/22 * CBC w/ Auto Diff 08/19/22 * CBC w/ Indices 07/20/22 * CBC w/ Indices 10/20/22 * CBC w/ Indices 01/20/23 * CBC w/ Indices 04/21/23 * Comprehensive Metabolic Panel 08/19/22 * Ferritin 08/19/22 * Iron Level 08/19/22 * Iron Percent Saturation 08/19/22 Radiology* XR Abdomen 1 View 01/25/22 [facility] Future App[facility]ments Appointment Date:08/19/2022 01:30:00 PM Scheduled Provider:Jevon Pantoja DO [facility] Appointment Type:ONC Office Visit 15 (FT) Appointment Date:10/14/2022 12:15:00 PM Scheduled Provider:Florentino SANABRIA MD Location:[facility] Appointment Type:BAD Follow Up Appointment Date:02/02/2023 01:45:00 PM Scheduled Provider:Nghia ROBERSON MD Location:[facility] Appointment Type:URO Office Visit Diagnostic Tests Pending [...] Abdomen 1 View 01/25/22 [facility] Evaluation + Plan note Future Appointments Appointment Date:10/14/2022 12:15:00 PM Scheduled Provider:Florentino SANABRIA MD Location:[facility] Appointment Type:[facility] Follow Up Appointment Date:02/02/2023 01:45:00 PM Scheduled Provider:Nghia ROBERSON MD Location:[facility] Appointment Type:URO Office Visit Appointment Date:08/24/2023 01:45:00 PM Scheduled Provider:Jevon Pantoja DO [facility]oint[facility] Type:ONC Office Visit 15 (FT) Future [...] 08/20/23 Radiology* XR Abdomen 1 View 01/25/22 [facility] App[facility] Appointment Date:02/02/2023 01:45:00 PM Scheduled Provider:Nghia ROBERSON MD Location:[facility] Appointment Type:URO Office Visit Appointment Date:08/24/2023 01:45:00 PM Scheduled Provider:Jevon Pantoja DO [facility]oint[facility] Type:ONC Office Visit 15 (FT) Future [...] 08/20/23 Radiology* XR Abdomen 1 View 01/25/22 [facility] Future App[facility]ments Appointment Date:02/02/2023 01:45:00 PM Scheduled Provider:Nghia ROBERSON MD Location:[facility] Appointment Type:URO Office Visit Appointment Date:08/24/2023 01:45:00 PM Scheduled Provider:Jevon Pantoja DO [facility] Appoint[facility] Type:ONC Office Visit 15 (FT) Future [...] 08/20/23 Radiology* XR Abdomen 1 View 01/25/22 [facility] Future App[facility]ments Appointment Date:02/02/2023 01:45:00 PM Scheduled Provider:Nghia ROBERSON MD Location:[facility] Appointment Type:URO Office Visit Appointment Date:08/24/2023 01:45:00 PM Scheduled Provider:Jevon Pantoja DO [facility] Appoint[facility] Type:ONC Office Visit 15 (FT) Future [...] 02/18/23 * Transferrin 05/21/23 * Transferrin 08/20/23 [facility] App[facility]ments Appointment Date:08/17/2023 01:00:00 PM Scheduled Provider:Nghia ROBERSON MD Location:[facility] Appointment Type:URO Office Visit Appointment Date:08/24/2023 01:45:00 PM Scheduled Provider:Jevon Pantoja DO [facility] Appointment Type:ONC Office Visit 15 (FT) Future [...] 05/21/23 * Transferrin 08/20/23 [facility] Evaluation + Plan note Future Appointments Appointment Date:06/24/2023 10:00:00 AM Scheduled Provider:Zuhair Beatty MD Location:[facility] Appointment Type:BADH Follow Up Appointment Date:08/17/2023 01:00:00 PM Scheduled Provider:Nghia ROBERSON MD Location:[facility] Appointment Type:URO Office Visit Appointment Date:08/24/2023 01:45:00 PM Scheduled Provider:Jevon Pantoja DO [facility] Appoint[facility] Type:ONC Office Visit 15 (FT) Future [...] 08/20/23 * Transferrin 02/18/23 * Transferrin 08/20/23 [facility] App[facility]ments Appointment Date:08/24/2023 01:45:00 PM Scheduled Provider:Jevon Pantoja DO [facility] Appointment Type:ONC Office Visit 15 (FT) Appointment Date:10/26/2023 01:00:00 PM Scheduled Provider:Nghia ROBERSON MD Location:[facility] Appointment Type:URO Office Visit Future Scheduled Tests [...] 08/20/23 * Transferrin 02/18/23 * Transferrin 08/20/23 [facility] Evaluation + Plan note Future Appointments Appointment Date:08/24/2023 01:45:00 PM Scheduled Provider:Jevon Pantoja DO [facility] Appointment Type:ONC Office Visit 15 (FT) Appointment Date:10/26/2023 01:00:00 PM Scheduled Provider:Nghia ROBERSON MD Location:[facility] Appointment Type:URO Office Visit Appointment Date:08/22/2024 10:00:00 AM Scheduled Provider: Location:.[facility] Appointment Type:CT Chest (FT) Future Scheduled Tests Laboratory* PSA Free & Total 07/01/23 * CBC w/ Auto Diff 02/18/23 * CBC w/ Indices 01/20/23 * CBC w/ Indices 04/21/23 * Comprehensive Metabolic Panel 02/18/23 * Ferritin 02/18/23 * Iron Level 02/18/23 * Iron Percent Saturation 02/18/23 * Transferrin 02/18/23 Radiology* CT Chest w/o Contrast 08/22/24 [facility] + Plan note Future Appointments Appointment Date:10/26/2023 01:00:00 PM Scheduled Provider:Nghia ROBERSON MD Location:[facility] Appointment Type:URO Office Visit Appointment Date:08/22/2024 10:00:00 AM Scheduled Provider: [facility] Type:CT Chest (FT) Appointment Date:08/23/2024 02:45:00 PM Scheduled Provider:Jevon Pantoja DO [facility] Appoint[facility] Type:ONC Office Visit 30 (FT) Future [...] 02/18/23 Radiology* CT Chest w/o Contrast 08/22/24 [facility] App[facility] Appointment Date:10/26/2023 01:00:00 PM Scheduled Provider:Nghia ROBERSON MD Location:[facility] Appointment Type:URO Office Visit Appointment Date:08/23/2024 02:45:00 PM Scheduled Provider:Jevon Pantoja DO [facility] Appointment Type:ONC Office Visit 30 (FT) Future [...] 02/23/24 * Transferrin 08/23/24 * Transferrin 02/18/23 [facility] App[facility]ments Appointment Date:11/01/2023 10:15:00 AM Scheduled Provider:Nghia ROBERSON MD Location:[facility] Appointment Type:URO Office Visit Appointment Date:08/23/2024 02:40:00 PM Scheduled Provider:Jevon Pantoja DO [facility] Appointment Type:ONC Office Visit 30 (FT) Future [...] 02/23/24 * Transferrin 08/23/24 * Transferrin 02/18/23 [facility] App[facility]ments Appointment Date:05/22/2024 01:45:00 PM Scheduled Provider:Nghia ROBERSON MD Location:[facility] Appointment Type:URO Office Visit Appointment Date:08/23/2024 02:40:00 PM Scheduled Provider:Jevon Pantoja DO Location:[facility] Appointment Type:ONC Office Visit 30 (FT) Diagnostic [...] 08/23/24 * Transferrin 02/18/23 [facility] Evaluation + Plan note Future Appointments Appointment Date:05/22/2024 01:45:00 PM Scheduled Provider:Nghia ROBERSON MD Location:[facility] Appointment Type:URO Office Visit Appointment Date:08/23/2024 02:40:00 PM Scheduled Provider:Jevon Pantoja DO [facility] Appointment Type:ONC Office Visit 30 (FT) Future [...] 08/23/24 * Transferrin 02/18/23 [facility] Evaluation + Plan note Future Appointments Appointment Date:05/22/2024 01:45:00 PM Scheduled Provider:Nghia ROBERSON MD Location:[facility] Appointment Type:URO Office Visit Appointment Date:08/23/2024 02:40:00 PM Scheduled Provider:Jevon Pantoja DO [facility] Appoint[facility] Type:ONC Office Visit 30 (FT) Future Scheduled Tests Laboratory* CBC w/ Auto Diff 08/23/24 * CBC w/ Indices 04/21/23 * Comprehensive Metabolic Panel 08/23/24 * Ferritin 08/23/24 * Ferritin 02/18/23 * Iron Level 08/23/24 * Iron Level 02/18/23 * Iron Percent Saturation 08/23/24 * Iron Percent Saturation 02/18/23 * Transferrin 08/23/24 * Transferrin 02/18/23 [facility] Evaluation + Plan note Future Appointments Appointment Date:05/22/2024 01:45:00 PM Scheduled Provider:Nghia ROBERSON MD Location:[facility] Appointment Type:URO Office Visit Appointment Date:08/23/2024 02:40:00 PM Scheduled Provider:Jevon Pantoja DO Location:.[facility] Appointment Type:ONC Office Visit 30 (FT) Future Scheduled Tests Laboratory* CBC w/ Auto Diff 08/23/24 * CBC w/ Indices 04/21/23 * Comprehensive Metabolic Panel 08/23/24 * Ferritin 08/23/24 * Iron Level 08/23/24 * Iron Percent Saturation 08/23/24 * Transferrin 08/23/24 [facility] Evaluation + Plan note Future Appointments Appointment Date:08/23/2024 02:40:00 PM Scheduled Provider:Jevon Pantoja DO Location:.[facility]COL[facility] Appointment Type:ONC Office Visit 30 (FT) Appointment Date:11/20/2024 01:15:00 PM Scheduled Provider:Nghia ROBERSON MD Location:[facility] Appointment Type:URO Office Visit Diagnostic Tests Pending * PSA Free & Total 05/22/24 Future Scheduled Tests Laboratory* CBC w/ Auto Diff 08/23/24 * CBC w/ Indices 04/21/23 * Comprehensive Metabolic Panel 08/23/24 * Ferritin 08/23/24 * Iron Level 08/23/24 * Iron Percent Saturation 08/23/24 * Transferrin 08/23/24 [facility] Evaluation + Plan note Future Appointments Appointment Date:08/23/2024 02:40:00 PM Scheduled Provider:Jevon Pantoja DO [facility] Appointment Type:ONC Office Visit 30 (FT) Appointment Date:11/20/2024 01:15:00 PM Scheduled Provider:Nghia ROBERSON MD Location:[facility] Appointment Type:URO Office Visit Future Scheduled Tests Laboratory* CBC w/ Auto Diff 08/23/24 * CBC w/ Indices 04/21/23 * Comprehensive Metabolic Panel 08/23/24 * Ferritin 08/23/24 * Iron Level 08/23/24 * Iron Percent Saturation 08/23/24 * Transferrin 08/23/24 [facility] evaluation + Plan note Future Appointments Appointment Date:08/23/2024 11:40:00 AM Scheduled Provider:Jevon Pantoja DO [facility] Appointment Type:ONC Office Visit 30 (FT) Appointment Date:11/20/2024 01:15:00 PM Scheduled Provider:Nghia ROBERSON MD Location:[facility] Appointment Type:URO Office Visit [facility] evaluation + Plan note Future Appointments Appointment Date:11/20/2024 01:15:00 PM Scheduled Provider:Nghia ROBERSON MD Location:[facility] Appointment Type:URO Office Visit Appointment Date:08/21/2025 11:00:00 AM Scheduled Provider:Jevon Pantoja DO [facility] Appoint[facility] Type:ONC Office Visit 20 (FT) Future Scheduled Tests Laboratory* Sedimentation Rate Automated 01/30/25 * Sedimentation Rate Automated 07/31/25 * Erythropoietin Level 01/30/25 * Erythropoietin Level 07/31/25 * SRINIVAS and PE, Serum 07/31/25 * Free K+L Lt Chains,Qn,S 07/31/25 * CBC w/ Auto Diff 01/30/25 * CBC w/ Auto Diff 07/31/25 * Comprehensive Metabolic Panel 01/30/25 * Comprehensive Metabolic Panel 07/31/25 * Ferritin 01/30/25 * Ferritin 07/31/25 * Folate Level 01/30/25 * Folate Level 07/31/25 * Iron Level 01/30/25 * Iron Level 07/31/25 * Iron Percent Saturation 01/30/25 * Iron Percent Saturation 07/31/25 * Transferrin 01/30/25 * Transferrin 07/31/25 * Vitamin B12 Level 01/30/25 * Vitamin B12 Level 07/31/25 [facility] Evaluation noteNo assessment information available [facility] Work Phone: Evaluation note* Diagnosis HTN (hypertension), benign- Primary Essential hypertension, benign [facility] Diagnosis PAF (paroxysmal atrial fibrillation) (HCC) Atrial [facility] Diagnosis PAF (paroxysmal atrial fibrillation) (HCC)- Primary [facility]rial [facility] (paroxysmal atrial fibrillation) (HCC)- Primary Atrial [facility] Diagnosis Atrial [facility], unspecified type (HCC)- [facility] Diagnosis AF (paroxysmal atrial fibrillation) (HCC)- Primary Atrial fibrillation Gastrointestinal hemorrhage, unspecified gastrointestinal hemorrhage type [facility] Diagnosis PAF (paroxysmal atrial fibrillation) (HCC)- Primary Atrial fibrillation [facility] Diagnosis Pain of both shoulder joints Rotator cuff tear arthropathy of both shoulders Traumatic arthropathy, shoulder region Atrial fibrillation, unspecified type (HCC) [facility] Diagnosis Gastrointestinal hemorrhage, unspecified gastrointestinal hemorrhage type- Primary HTN (hypertension), benign Essential hypertension, benign PAF (paroxysmal atrial fibrillation) (HCC) Atrial fibrillation Hyperlipidemia, unspecified hyperlipidemia type [facility]* Diagnosis IRB WATCHAMAN [employer] Real World Evidence (WATCH RWE) PI: Dr. Marcos Bermudez- Primary [facility]* Diagnosis IRB WATCH[employer] Real World Evidence (WATCH RWE) PI: Dr. Marcos Bermudez- Primary AF (paroxysmal atrial fibrillation) (HCC) Atrial fibrillation [facility]* Diagnosis Medication refill [Z76.0 (ICD-10-CM)]- Primary Issue of repeat prescriptions [facility]* Diagnosis PAF (paroxysmal atrial fibrillation) (HCC)- Primary Atrial fibrillation Gastrointestinal hemorrhage, unspecified gastrointestinal hemorrhage type documented [facility]* Diagnosis HTN (hypertension), benign Essential hypertension, benign [facility]* Diagnosis PAF (paroxysmal atrial fibrillation) (HCC)- Primary Atrial fibrillation [facility]* Diagnosis Hyperlipidemia, unspecified hyperlipidemia type- Primary Pain of both shoulder joints Rotator cuff tear arthropathy of both shoulders Traumatic arthropathy, shoulder region documented [facility]* Diagnosis Atypical chest pain Other chest pain ANDERSEN (dyspnea on exertion) Other dyspnea and respiratory abnormality [facility]* Diagnosis Onychomycosis- Primary Dermatophytosis of nail Pain in left toe(s) Pain in right toe(s) [facility] Diagnosis Atypical chest pain- Primary Other chest pain ANDERSEN (dyspnea on exertion) Other dyspnea and respiratory abnormality Hyperlipidemia, unspecified hyperlipidemia type [facility]* Diagnosis Atypical chest pain- Primary Other chest pain documented [facility]* Diagnosis Onset Date Resolution Status Lumbar radiculopathy acute Lumbar stenosis with neurogenic claudication acute Spondylolisthesis, lumbar region acute Age-related osteoporosis wit hout current pathological fracture noneactive [facility] Work Phone: Evaluation note* Diagnosis Bilateral lumbar radiculopathy- Primary Spinal stenosis, lumbar region, without neurogenic claudication Anterolisthesis of lumbar spine [facility]* Diagnosis Persistent atrial fibrillation (HCC)- Primary Atrial fibrillation Presence of Watchman left atrial appendage closure device Obesity, Class I, BMI 30-34.9 Obesity, unspecified Chronic diastolic congestive heart failure (HCC) Chronic diastolic heart failure [facility]* Diagnosis Paroxysmal atrial fibrillation (HCC)- Primary Atrial fibrillation [facility]* Diagnosis 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athy- Primary Spinal stenosis, lumbar region, without neurogenic claudication 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athy Spinal stenosis, lumbar region, without neurogenic claudication [facility]* Diagnosis 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athy Spinal stenosis, lumbar region, without neurogenic claudication 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athy Spinal stenosis, lumbar region, without neurogenic claudication [facility]* Diagnosis Paroxysmal atrial fibrillation (HCC)- Primary Atrial fibrillation Chronic diastolic congestive heart failure (HCC) Chronic diastolic heart failure PAF (paroxysmal atrial fibrillation) (HCC) Atrial fibrillation Presence of Watchman left atrial appendage closure device 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athy Spinal stenosis, lumbar region, without neurogenic claudication [facility]* Diagnosis 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athy- Primary Spinal stenosis, lumbar region, without neurogenic claudication Back pain of lumbosacral region with sciatica Lumbar spondylosis Lumbosacral spondylosis without myelopathy 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athy Spinal stenosis, lumbar region, without neurogenic claudication 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athy Spinal stenosis, lumbar region, without neurogenic claudication [facility]* Diagnosis Visit for monitoring Tikosyn therapy- Primary Encounter for therapeutic drug monitoring Medication refill [Z76.0] Issue of repeat prescriptions [facility]* Diagnosis PAF (paroxysmal atrial fibrillation) (HCC) Atrial fibrillation [facility]* Diagnosis PAF (paroxysmal atrial fibrillation) (HCC) Atrial fibrillation HTN (hypertension), benign Essential hypertension, benign [facility]* Diagnosis IRB [id number] W[employer] World Evidence (WATCH RWE) PI: Dr. Marcos Bermudez- Primary [facility]* Diagnosis HTN (hypertension), benign- Primary Essential hypertension, benign Chronic diastolic congestive heart failure (HCC) Chronic diastolic heart failure Paroxysmal atrial fibrillation (HCC) Atrial fibrillation [facility]* Diagnosis Spinal stenosis, lumbar region, without neurogenic claudication- Primary Lumbar radiculopathy Thoracic or lumbosacral neuritis or radiculitis, unspecified [facility]* Diagnosis 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athy- Primary Spinal stenosis, lumbar region, without neurogenic claudication Lower extremity numbness Disturbance of skin sensation Spinal stenosis, lumbar region, without neurogenic claudication Lumbar radiculopathy Thoracic or lumbosacral neuritis or radiculitis, unspecified [facility]* Diagnosis Atypical chest pain Other chest pain ANDERSEN (dyspnea on exertion) Other dyspnea and respiratory abnormality Hyperlipidemia, unspecified hyperlipidemia type [facility]* Diagnosis Lumbar spondylosis- Primary Lumbosacral spondylosis without myelopathy Chronic bilateral low back pain without sciatica Degenerative lumbar spinal stenosis Spinal stenosis, lumbar region, without neurogenic claudication [facility] Diagnosis Lumbar spondylosis- Primary Lumbosacral spondylosis without myelopathy [facility]* Diagnosis MICHELE (obstructive sleep apnea)- Primary Obstructive sleep apnea (adult) (pediatric) Right median nerve neuropathy Neck pain Cervicalgia Lumbar back pain Lumbago Depression, unspecified depression type (CMS/HCC) [facility]* Diagnosis Seborrheic keratosis- Primary Actinic keratosis Lentigines Bacterial folliculitis Other specified disease of hair and hair follicles History of malignant melanoma of skin Personal history of malignant melanoma of skin documented [facility]* Diagnosis Pain of both shoulder joints Rotator cuff tear arthropathy of both shoulders Traumatic arthropathy, shoulder region [facility] Diagnosis Acute idiopathic gout involving toe of right foot- Primary Other enthesopathy of right foot and ankle Onychomycosis Dermatophytosis of nail Pain in left foot Pain in soft tissues of limb Pain in left toe(s) Pain in right toe(s) [facility] Diagnosis Onychomycosis- Primary Dermatophytosis of nail Pain in left toe(s) Pain in right toe(s) [facility] Diagnosis Paroxysmal atrial fibrillation (HCC)- Primary Atrial fibrillation [facility]* Diagnosis PAF (paroxysmal atrial fibrillation) (HCC)- Primary Atrial fibrillation [facility]* Diagnosis LBBB (left bundle branch block)- Primary Other left bundle branch block Paroxysmal atrial fibrillation (HCC) Atrial fibrillation Persistent atrial fibrillation (HCC) Atrial fibrillation Chronic HFrEF (heart failure with reduced ejection fraction) (HCC) Coronary artery disease involving [place] coronary artery of [place] heart without angina pectoris [facility]* Diagnosis Aortic dilatation (HCC)- Primary Aortic ectasia, unspecified site [facility]* Diagnosis Paroxysmal atrial fibrillation (HCC) Atrial fibrillation [facility]* Diagnosis Aortic dilatation (HCC) Aortic ectasia, unspecified site [facility]* Diagnosis Persistent atrial fibrillation (HCC) Atrial fibrillation Acute HFrEF (heart failure with reduced ejection fraction) (HCC) [facility]* Diagnosis Lisfranc dislocation, left, initial encounter- Primary Left foot pain Pain in soft tissues of limb Sprain of anterior talofibular ligament of left ankle, initial encounter [facility] Diagnosis Lumbar spondylosis- Primary Lumbosacral spondylosis without myelopathy Lumbar spondylosis Lumbosacral spondylosis without myelopathy Atrial fibrillation, unspecified type (HCC) [facility]* Diagnosis Lumbar spondylosis- Primary Lumbosacral spondylosis without myelopathy Chronic bilateral low back pain without sciatica Lumbar spondylosis Lumbosacral spondylosis without myelopathy Atrial fibrillation, unspecified type (HCC) [facility]* Diagnosis Lisfranc dislocation, left, initial encounter- Primary Other enthesopathy of right foot and ankle Tailor's bunion of right foot Onychomycosis Dermatophytosis of nail Pain in left foot Pain in soft tissues of limb Pain in left toe(s) documented [facility]* Diagnosis Sprain of tarsal ligament of foot, left, initial encounter- Primary Lisfranc dislocation, left, initial encounter Tailor's bunion of right foot Other enthesopathy of right foot and ankle documented in this [facility]* Diagnosis Medication management [Z79.899]- Primary Encounter for long-term (current) use of other medications Atrial fibrillation, unspecified type ([facility]) [facility]* Diagnosis PAF (paroxysmal atrial fibrillation) (HCC)- Primary Atrial fibrillation LBBB (left bundle branch block) Other left bundle branch block Chronic HFrEF (heart failure with reduced ejection fraction) (HCC) Coronary artery disease involving [place] coronary artery of [place] heart without angina pectoris Aortic dilatation (HCC) Aortic ectasia, unspecified site IRB [id number] W[employer]AM[employer] FL[employer] Real World Evidence (WATCH RWE) PI: Dr. Marcos Bermudez Obesity, Class I, BMI 30-34.9 Obesity, unspecified Atrial fibrillation, unspecified type ([facility]) [facility]* Diagnosis Lumbar spondylosis- Primary Lumbosacral spondylosis without myelopathy [facility]* Diagnosis Neck pain- Primary Cervicalgia Lumbar back pain Lumbago MICHELE (obstructive sleep apnea) Obstructive sleep apnea (adult) (pediatric) Depression, unspecified depression type (CMS/HCC) documented in this [facility]* Diagnosis Seborrheic keratosis- Primary Actinic keratosis Seborrheic keratosis, inflamed Neoplasm of unspecified behavior of bone, soft tissue, and skin Lentigines History of malignant melanoma of skin Personal history of malignant melanoma of skin documented in this encounter [facility]* Diagnosis Onychomycosis- Primary Dermatophytosis of nail Pain in left toe(s) Pain in right toe(s) documented in this [facility]* Diagnosis Lumbar spondylosis- Primary Lumbosacral spondylosis without myelopathy [facility]* Diagnosis Lumbar spondylosis- Primary Lumbosacral spondylosis without myelopathy Lumbar spondylosis Lumbosacral spondylosis without myelopathy documented in this encounter [facility] note* 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- Primary Atrial fibrillation, persistent (HCC) Atrial fibrillation LBBB (left bundle branch block) Other left bundle branch block Coronary artery disease due to lipid rich plaque Lumbar spondylosis Lumbosacral spondylosis without myelopathy documented in this encounter [facility] note* Diagnosis HFrEF (heart failure with reduced ejection fraction) (HCC)- Primary Heart failure, unspecified Lumbar spondylosis Lumbosacral spondylosis without myelopathy documented in this encounter [facility] note* Diagnosis No-show for appointment- Primary Lumbar spondylosis Lumbosacral spondylosis without myelopathy documented in this encounter [facility] note* Diagnosis MCC current use of amiodarone- Primary documented in this encounter [facility] note* Diagnosis Current use of childcare attendant anticoagulation- Primary Long-term (current) use of anticoagulants Persistent atrial fibrillation (HCC) Atrial fibrillation documented in this encounter [facility] course Narrative No data available for this section [facility] Discharge instructions No data available for this section [facility] available for this [facility] Outpatient Procedure (Routine) - Authorized Specialty Diagnoses / Procedures Referred By Nicky youssef Referred To Contact [facility] Diagnoses Atrial fibrillation, unspecified type ([facility]) Procedures ECG COMPLETE ECG ROUTINE ECG W/LEAST 12 LDS W/I&R Kaylah Kemp MD [address] [place] [address] [place] [address] Referral ID Status Reason Start Date Expiration Date Visits Requested Visits Authorized [id number] Authorized Auto-Generat ed Referral 01/08/2022 01/08/2023 1 1 [facility] for referral (narrative)* Outpatient Procedure (Routine) - Pending Review Specialty Diagnoses / Procedures Referred By Nicky youssef Referred To Contact [facility] Diagnoses PAF (paroxysmal atrial fibrillation) (HCC) Procedures ECHO TRANSESOPHAGEAL ECHO TRANSESOPHAG R-T 2D W/PRB IMG ACQUISJ I&R Kaylah Kemp MD [address] [place] [address] [address] [place] [address] Referral ID Status Reason Start Date Expiration Date Visits Requested Visits Authorized [id number] Pending Review Auto-Generat ed Referral 2 04/19/2023 1 1 * Outpatient Procedure (Routine) - Pending Review Specialty Diagnoses / Procedures Referred By Contac t Referred To Contact [facility] Diagnoses PAF (paroxysmal atrial fibrillation) (HCC) Procedures ECHO ECHO TTHRC R-T 2D W/WOM-MODE COMPL SPEC&COLR D Kaylah Kemp MD [address] [place] [address] [address] Referral ID Status Reason Start Date Expiration Date Visits Requested Visits Authorized [id number] Pending Review Auto-Generat ed Referral 2 04/19/2023 1 1 * Outpatient Procedure (Routine) - Pending Review Specialty Diagnoses / Procedures Referred By Contac t Referred To Contact [facility] Diagnoses PAF (paroxysmal atrial fibrillation) (HCC) Procedures ECG COMPLETE ECG ROUTINE ECG W/LEAST 12 LDS W/I&R Kaylah Kemp MD [address] [place] [address] [address] Referral ID Status Reason Start Date Expiration Date Visits Requested Visits Authorized [id number] Pending Review Auto-Generat ed Referral 2 04/19/2023 1 1 [facility] for referral (narrative)* Outpatient Procedure (Routine) - Pending Review Specialty Diagnoses / Procedures Referred By Contac t Referred To Contact [facility] Diagnoses Research study patient AF (paroxysmal atrial fibrillation) ([facility]) Procedures ECHO TRANSESOPHAGEAL ECHO TRANSESOPHAG R-T 2D W/PRB IMG ACQUJOHAN I&R Adilene Gerber APRN.CASHIERS SUPERVISOR [address] [place] [address] [facility] [place] [address] [id number] Referral ID Status Reason Start Date Expiration Date Visits Requested Visits Authorized [id number] Pending Review Auto-Generat ed Referral 06/10/2022 06/10/2023 1 1 * Outpatient Procedure (Routine) - Pending Review Specialty Diagnoses / Procedures Referred By Contac t Referred To Contact [facility] Diagnoses Research study patient AF (paroxysmal atrial fibrillation) ([facility]) Procedures ECG COMPLETE ECG ROUTINE ECG W/LEAST 12 LDS W/I&R Adilene Gerber, CASHIERS SUPERVISOR [address] [place] [address] [place] [address] [place] [address] Referral ID Status Reason Start Date Expiration Date Visits Requested Visits Authorized [id number] Pending Review Auto-Generat ed Referral 06/10/2022 06/10/2023 1 1 [facility] for referral (narrative)* Outpatient Procedure (Routine) - Pending Review Specialty Diagnoses / Procedures Referred By Contac t Referred To Contact [facility] Diagnoses PAF (paroxysmal atrial fibrillation) ([facility]) Procedures ECHO TRANSESOPHAGEAL ECHO TRANSESOPHAG R-T 2D W/PRB IMG ACQUJOHAN I&R Kaylah Kemp MD [address] [place] [address] [facility] [place] [address] [place] [address] Referral ID Status Reason Start Date Expiration Date Visits Requested Visits Authorized [id number] Pending Review Auto-Generat ed Referral 09/14/2022 09/14/2023 1 1 [facility] for referral (narrative)* Diagnostic Procedure Only (Routine) - Pending Review Specialty Diagnoses / Procedures Referred By Contac t Referred To Contact [facility] Diagnoses Atypical chest pain ANDERSEN (dyspnea on exertion) Hyperlipidemia, unspecified hyperlipidemia type Procedures NM CARDIAC PERF STRESS/PHARM MYOCARDIAL SPECT MULTIPLE STUDIES Jacqueline Tamayo, EHSAN.CASHIERS SUPERVISOR [address] [place] [address] [facility] [address] [place], [place] [id number] Referral ID Status Reason Start Date Expiration Date Visits Requested Visits Authorized [id number] Pending Review Auto-Generat ed Referral 06/15/2023 07/14/2024 1 1 [facility] for referral (narrative)* Diagnostic Procedure Only (Routine) - Pending Review Specialty Diagnoses / Procedures Referred By Contac t Referred To Contact [facility] Diagnoses Atypical chest pain Procedures NM CARDIAC PERF STRESS/PHARM MYOCARDIAL [place] [address] [facility] [place] [address] [facility] [address] [place], [place] [id number] Referral ID Status Reason Start Date Expiration Date Visits Requested Visits Authorized [id number] Pending Review Auto-Generat ed Referral 06/15/2023 07/14/2024 1 1 [facility] for referral (narrative)* Diagnostic Procedure Only (Routine) - Closed Specialty Diagnoses / Procedures Referred By Contac t Referred To Contact XR IMAGING Diagnoses 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athy Procedures XR LUMBAR MOTION 4V AP/LAT/ FLEX/EXT RADEX SPINE LUMBOSACRAL MINIMUM 4 VIEWS Alpa Ram DO [address] [place] [address] [id number] Referral ID Status Reason Start Date Expiration Date V isits Requested Visits Authorized [id number] Closed Auto-Generate d Referral 08/29/2023 09/27/2024 1 1 [facility] for referral (narrative)* Outpatient Procedure (Routine) - Pending Review Specialty Diagnoses / Procedures Referred By Contac t Referred To Contact [facility] Diagnoses Paroxysmal atrial fibrillation (HCC) Chronic diastolic congestive heart failure (HCC) PAF (paroxysmal atrial fibrillation) (HCC) Presence of Watchman left atrial appendage closure device Procedures ECG COMPLETE ECG ROUTINE ECG W/LEAST 12 LDS W/I&R Kaylah Kemp MD [address] [place] [address] [facility] [place] [address] [place], [place] [id number] Referral ID Status Reason Start Date Expiration Date Visits Requested Visits Authorized [id number] Pending Review Auto-Generat ed Referral 09/01/2023 08/31/2024 1 1 [facility] for referral (narrative)* Diagnostic Procedure Only (Routine) - Closed Specialty Diagnoses / Procedures Referred By Contac t Referred To Contact XR IMAGING Diagnoses 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athy Procedures XR LUMBAR MOTION 4V AP/LAT/ FLEX/EXT RADEX SPINE LUMBOSACRAL MINIMUM 4 VIEWS Alpa Ram DO [address] [place] [address] X[id number] Referral ID Status Reason Start Date Expiration Date V isits Requested Visits Authorized [id number] Closed Auto-Generate d Referral 08/29/2023 09/27/2024 1 1 [facility] for referral (narrative)* Diagnostic Procedure Only (Routine) - Closed Specialty Diagnoses / Procedures Referred By [facility] To [facility] MOLECULAR & FUNCTIONAL IMAGING Diagnoses Atypical chest pain ANDERSEN (dyspnea on exertion) Hyperlipidemia, unspecified hyperlipidemia type Procedures NM CARDIAC PERF STRESS/PHARM MYOCARDIAL SPECT MULTIPLE STUDIES Jacqueline Tamayo APRN.CNP [address] [facility] [place] [address] Molecular & Functional Imaging [address] [place] [address] Referral ID Status Reason Start Date Expiration Date V isits Requested Visits Authorized [id number] Closed Auto-Generate d Referral 06/16/2023 06/16/2023 2 2 [facility] for referral (narrative)* Outpatient Procedure (Routine) - Authorized Specialty Diagnoses / Procedures Referred By [facility] Referred To Contact [facility] Diagnoses Paroxysmal atrial fibrillation (HCC) Procedures ECG COMPLETE ECG ROUTINE ECG W/LEAST 12 LDS W/I&[place] [address] [place] [address] [facility] [place] [address] Referral ID Status Reason Start Date Expiration Date Visits Requested Visits Authorized [id number] Authorized Auto-Generat ed Referral 4 04/12/2025 1 1 * Outpatient Procedure (Routine) - New Request Specialty Diagnoses / Procedures [facility] Diagnoses Paroxysmal atrial fibrillation (HCC) Procedures ECG COMPLETE ECG ROUTINE ECG W/LEAST 12 LDS W/[place] [address] [place] [address] [facility] [address] [place] [address] Referral ID Status Reason Start Date Expiration Date Visits Requested Visits Authorized [id number] New Request Auto-Generat ed Referral 4 04/12/2025 1 1 [facility] for referral (narrative)* Outpatient Procedure (Routine) - New Request Specialty Diagnoses / Procedures Referred By Contac t Referred To Contact [facility] Diagnoses PAF (paroxysmal atrial fibrillation) (HCC) Procedures ECG COMPLETE ECG ROUTINE ECG W/LEAST 12 LDS W/I&R Moustapha Melvin APRN.[employer] SUPERVISOR [address] [place] [address] Heart [facility] [address] [address] Referral ID Status Reason Start Date Expiration Date Visits Requested Visits Authorized [id number] New Request Auto-Generat ed Referral 4 04/23/2025 1 1 [facility] for referral (narrative)* Outpatient Procedure (Routine) - New Request Specialty Diagnoses / Procedures Referred By Contac t Referred To Contact [facility] Diagnoses Persistent atrial fibrillation (HCC) Procedures ECG COMPLETE ECG ROUTINE ECG W/LEAST 12 LDS W/I&R Moni Mandujano APRN.[employer] SUPERVISOR [address] [place] [id number] [facility] [address] [address] Referral ID Status Reason Start Date Expiration Date Visits Requested Visits Authorized [id number] New Request Auto-Generat ed Referral 05/11/2024 05/11/2025 1 1 [facility] for visit Narrative* Diagnostic Procedure Only (Routine) - Authorized Specialty Diagnoses / Procedures [facility] Ref[facility] To Contact MOLECULAR & FUNCTIONAL IMAGING Diagnoses Atypical chest pain ANDERSEN (dyspnea on exertion) Procedures NM CARDIAC PERF STRESS/PHARM MYOCARDIAL [place]PECT [place] [address] [facility] [place] [address] Molecular & Functional Imaging [address] [place] [id number] Referral ID Status Reason Start Date Expiration Date Visits Requested Visits Authorized [id number] Authorized Auto-Generat ed Referral 3 05/25/2024 1 1 [facility] for visit Narrative* Diagnostic Procedure Only (Routine) - Closed Specialty Diagnoses / Procedures Referred By Nicky youssef Referred To Contact XR IMAGING Diagnoses 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athy Procedures XR LUMBAR MOTION 4V AP/LAT/ FLEX/EXT RADEX SPINE LUMBOSACRAL MINIMUM 4 VIEWS Alpa Ram DO [address] [place] [address] [place] [address] Referral ID Status Reason Start Date Expiration Date V isits Requested Visits Authorized [id number] Closed Auto-Generate d Referral 08/29/2023 09/27/2024 1 1 [facility] for visit Narrative* Outpatient Procedure (Routine) - Closed Specialty Diagnoses / Procedures Referred By Nicky youssef Referred To Contact [facility] Diagnoses PAF (paroxysmal atrial fibrillation) (HCC) Procedures ECHO TRANSESOPHAGEAL ECHO TRANSESOPHAG R-T 2D W/PRB IMG LORENA I&R Kaylah Kemp MD [address] [place] [address] [facility] [address] [place] [address] Referral ID Status Reason Start Date Expiration Date V isits Requested Visits Authorized [id number] Closed Auto-Generate d Referral 10/25/2023 01/18/2024 1 1 [facility] for visit Narrative* Diagnostic Procedure Only (Routine) - Closed Specialty Diagnoses / Procedures Referred By Nicky youssef Referred To Contact MOLECULAR & FUNCTIONAL IMAGING Diagnoses Atypical chest pain ANDERSEN (dyspnea on exertion) Hyperlipidemia, unspecified hyperlipidemia type Procedures NM CARDIAC PERF STRESS/PHARM MYOCARDIAL SPECT MULTIPLE STUDIES Jacqueline Tamayo APRN.[employer] SUPERVISOR [address] [facility] [place] [address] Molecular & Functional Imaging [address] [place] [address] Referral ID Status Reason Start Date Expiration Date V isits Requested Visits Authorized [id number] Closed Auto-Generate d Referral 06/16/2023 06/16/2023 2 2 [facility] Summary Purpose Family History No Family History Records Found Relationship Condition Age at Onset Recorded Date/T corazon Not Specified Malignant neoplasm of colon Unknown Tuberculosis Unknown brother Malignant neoplasm of colon Unknown sister Malignant neoplasm of colon Unknown Asthma Unknown father Arthritis Unknown History of heart valve replacement Unknow n Relationship Condition Age at Onset Recorded Date/T corazon mother Malignant neoplasm of colon Unknown Tuberculosis Unknown brother Malignant neoplasm of colon Unknown sister Malignant neoplasm of colon Unknown Asthma Unknown father Arthritis Unknown History of heart valve replacement Unknow n Advance Directives No Advanced Directives Records FoundDocuments on File Type Date Recorded 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 Advance Directive(s) 07/03/2021 1:21 PM Advance Directive(s) 08/28/2020 2:19 PM Advance Directive(s) 02/26/2020 1:31 PM Advance Directive(s) 07/28/2018 11:13 AM Advance Directive(s) 07/25/2018 1:45 PM Advance Directive(s) 07/12/2018 1:08 PM Advance Directive Response Recorded Date/ Time Advance Directives Yes June 1:50pm Advance Directive Response Recorded Date/ Time Advance Directives Yes June 2:50pm Health Concerns Infection Onset Date Last Indicated Resolved Time COVID-19 Rule-Out 05/18/2022 05/18/2022 05/18/2022 3:56 PM EST Chief Complaint and Reason for Visit Chief Complaint REFRRAL LUMBAGO W/SC IATICA M48.062 Reason for Visit Lumbar radiculopathy Lumbar stenosis with neurogenic claudication Spondylolisthesis, lumbar region Age-related osteoporosis without current pathological fracture Chief Complaint Admit Date Chest congestion July 06, 2024 12:5 2pm Reason for Referral Specialty Diagnoses / Procedures Referred By Nicky youssef Referred To Contact CT IMAGING Diagnoses Aortic dilatation (HCC) Procedures CTA CHEST (GATED) W IVCON CT ANGIOGRAPHY CHEST W/CONTRAST/NONCONTRAST Moni Mandujano, HOP SORTER.C[employer] SUPERVISOR [address] [place] [address] [place] [address] Referral ID Status Reason Start Date Expiration Date Visits Requested Visits Authorized [id number] Authorized Auto-Generat ed Referral 05/18/2024 06/17/2025 1 1 Specialty Diagnoses / Procedures Referred By Contac t Referred To Contact [facility] Procedures CARDIOVASCULAR MEDICINE OP FOLLOW UP APPT ORDER Kaylah Kemp MD [address] [place] [address] [facility] [address] [place] [address] Referral ID Status Reason Start Date Expiration Date Visits Requested Visits Authorized [id number] Ref Not Required PCP Requested Referral 08/18/2024 11/16/2024 1 1 Specialty Diagnoses / Procedures Referred By Contac t Referred To Contact [facility] Diagnoses Bilateral lumbar radiculopathy Spinal stenosis, lumbar region, without neurogenic claudication Anterolisthesis of lumbar spine Procedures CONSULT TO PHYSICAL THERAPY PHYSICAL THERAPY EVALUATION HIGH COMPLEX 45 MINS Alpa Ram DO [address] [place] [address] [facility] [address] [address] Referral ID Status Reason Start Date Expiration Date Visits Requested Visits Authorized [id number] Pending Review Auto-Generat ed Referral 06/22/2023 06/21/2024 [...] section and content) DATE CREATED AUTHOR 10/18/2017 [facility] DATE CREATED AUTHOR AUTHOR'S ORGANIZ ATION 06/05/2021 [facility] DATE CREATED AUTHOR AUTHOR'S ORGANIZ ATION 06/17/2022 [facility] DATE CREATED AUTHOR AUTHOR'S ORGANIZ ATION 06/21/2023 [facility] DATE CREATED AUTHOR AUTHOR'S ORGANIZ ATION 02/16/2024 [facility] DATE CREATED AUTHOR AUTHOR'S ORGANIZ ATION 03/11/2024 [facility] DATE CREATED AUTHOR AUTHOR'S ORGANIZ ATION 05/22/2024 [facility] DATE CREATED AUTHOR AUTHOR'S ORGANIZ ATION 05/24/2024 [facility] DATE CREATED AUTHOR AUTHOR'S ORGANIZ ATION 07/23/2024 [facility] DATE CREATED AUTHOR AUTHOR'S ORGANIZ ATION 08/22/2024 [facility] DATE CREATED AUTHOR AUTHOR'S ORGANIZ ATION 08/28/2024 [facility] DATE CREATED AUTHOR AUTHOR'S ORGANIZ ATION 08/30/2024 [facility] dical [facility] DATE CREATED AUTHOR AUTHOR'S ORGANIZ ATION 09/14/2024 [facility] DATE CREATED AUTHOR AUTHOR'S ORGANIZ ATION 09/27/2024 [facility] DATE CREATED AUTHOR AUTHOR'S ORGANIZ ATION 09/28/2024 [facility] DATE CREATED AUTHOR AUTHOR'S ORGANIZ ATION 10/03/2024 [facility] DATE CREATED AUTHOR AUTHOR'S ORGANIZ ATION 10/21/2024 [facility] Source Comments (unrecognize d section and content) In the event this informatio n is protected by the Federal Confidentiality of Alcohol and Drug Abuse Patient Records regulations: The Federal rules restrict any use of the information to criminally investigate or prosecute any alcohol or drug abuse patient.[facility] the event this information is protected by the Federal Confidentiality of Alcohol and Drug Abuse Patient Records regulations: The Federal rules restrict any use of the information to criminally investigate or prosecute any alcohol or drug abuse patient.[facility] the event this information is protected by the Federal Confidentiality of Alcohol and Drug Abuse Patient Records regulations: The Federal rules restrict any use of the information to criminally investigate or prosecute any alcohol or drug abuse patient.[facility] the event this information is protected by the Federal Confidentiality of Alcohol and Drug Abuse Patient Records regulations: The Federal rules restrict any use of the information to criminally investigate or prosecute any alcohol or drug abuse patient.[facility] the event this information is protected by the Federal Confidentiality of Alcohol and Drug Abuse Patient Records regulations: The Federal rules restrict any use of the information to criminally investigate or prosecute any alcohol or drug abuse patient.[facility] the event this information is protected by the Federal Confidentiality of Alcohol and Drug Abuse Patient Records regulations: The Federal rules restrict any use of the information to criminally investigate or prosecute any alcohol or drug abuse patient.[facility] the event this information is protected by the Federal Confidentiality of Alcohol and Drug Abuse Patient Records regulations: The Federal rules restrict any use of the information to criminally investigate or prosecute any alcohol or drug abuse patient.[facility] the event this information is protected by the Federal Confidentiality of Alcohol and Drug Abuse Patient Records regulations: The Federal rules restrict any use of the information to criminally investigate or prosecute any alcohol or drug abuse patient.[facility] the event this information is protected by the Federal Confidentiality of Alcohol and Drug Abuse Patient Records regulations: The Federal rules restrict any use of the information to criminally investigate or prosecute any alcohol or drug abuse patient.[facility]In the event this information is protected by the Federal Confidentiality of Alcohol and Drug Abuse Patient Records regulations: The Federal rules restrict any use of the information to criminally investigate or prosecute any alcohol or drug abuse patient.[facility] the event this information is protected by the Federal Confidentiality of Alcohol and Drug Abuse Patient Records regulations: The Federal rules restrict any use of the information to criminally investigate or prosecute any alcohol or drug abuse patient.[facility] the event this information is protected by the Federal Confidentiality of Alcohol and Drug Abuse Patient Records regulations: The Federal rules restrict any use of the information to criminally investigate or prosecute any alcohol or drug abuse patient.[facility] the event this information is protected by the Federal Confidentiality of Alcohol and Drug Abuse Patient Records regulations: The Federal rules restrict any use of the information to criminally investigate or prosecute any alcohol or drug abuse patient.[facility]In the event this information is protected by the Federal Confidentiality of Alcohol and Drug Abuse Patient Records regulations: The Federal rules restrict any use of the information to criminally investigate or prosecute any alcohol or drug abuse patient.[facility]In the event this information is protected by the Federal Confidentiality of Alcohol and Drug Abuse Patient Records regulations: The Federal rules restrict any use of the information to criminally investigate or prosecute any alcohol or drug abuse patient.[facility]In the event this information is protected by the Federal Confidentiality of Alcohol and Drug Abuse Patient Records regulations: The Federal rules restrict any use of the information to criminally investigate or prosecute any alcohol or drug abuse patient.[facility]In the event this information is protected by the Federal Confidentiality of Alcohol and Drug Abuse Patient Records regulations: The Federal rules restrict any use of the information to criminally investigate or prosecute any alcohol or drug abuse patient.[facility]In the event this information is protected by the Federal Confidentiality of Alcohol and Drug Abuse Patient Records regulations: The Federal rules restrict any use of the information to criminally investigate or prosecute any alcohol or drug abuse patient.[facility]In the event this information is protected by the Federal Confidentiality of Alcohol and Drug Abuse Patient Records regulations: The Federal rules restrict any use of the information to criminally investigate or prosecute any alcohol or drug abuse patient.[facility]In the event this information is protected by the Federal Confidentiality of Alcohol and Drug Abuse Patient Records regulations: The Federal rules restrict any use of the information to criminally investigate or prosecute any alcohol or drug abuse patient.[facility]In the event this information is protected by the Federal Confidentiality of Alcohol and Drug Abuse Patient Records regulations: The Federal rules restrict any use of the information to criminally investigate or prosecute any alcohol or drug abuse patient.[facility]In the event this information is protected by the Federal Confidentiality of Alcohol and Drug Abuse Patient Records regulations: The Federal rules restrict any use of the information to criminally investigate or prosecute any alcohol or drug abuse patient.[facility]In the event this information is protected by the Federal Confidentiality of Alcohol and Drug Abuse Patient Records regulations: The Federal rules restrict any use of the information to criminally investigate or prosecute any alcohol or drug abuse patient.[facility]In the event this information is protected by the Federal Confidentiality of Alcohol and Drug Abuse Patient Records regulations: The Federal rules restrict any use of the information to criminally investigate or prosecute any alcohol or drug abuse patient.[facility]In the event this information is protected by the Federal Confidentiality of Alcohol and Drug Abuse Patient Records regulations: The Federal rules restrict any use of the information to criminally investigate or prosecute any alcohol or drug abuse patient.[facility]In the event this information is protected by the Federal Confidentiality of Alcohol and Drug Abuse Patient Records regulations: The Federal rules restrict any use of the information to criminally investigate or prosecute any alcohol or drug abuse patient.[facility]In the event this information is protected by the Federal Confidentiality of Alcohol and Drug Abuse Patient Records regulations: The Federal rules restrict any use of the information to criminally investigate or prosecute any alcohol or drug abuse patient.[facility]In the event this information is protected by the Federal Confidentiality of Alcohol and Drug Abuse Patient Records regulations: The Federal rules restrict any use of the information to criminally investigate or prosecute any alcohol or drug abuse patient.[facility]In the event this information is protected by the Federal Confidentiality of Alcohol and Drug Abuse Patient Records regulations: The Federal rules restrict any use of the information to criminally investigate or prosecute any alcohol or drug abuse patient.[facility]In the event this information is protected by the Federal Confidentiality of Alcohol and Drug Abuse Patient Records regulations: The Federal rules restrict any use of the information to criminally investigate or prosecute any alcohol or drug abuse patient.[facility]In the event this information is protected by the Federal Confidentiality of Alcohol and Drug Abuse Patient Records regulations: The Federal rules restrict any use of the information to criminally investigate or prosecute any alcohol or drug abuse patient.[facility]In the event this information is protected by the Federal Confidentiality of Alcohol and Drug Abuse Patient Records regulations: The Federal rules restrict any use of the information to criminally investigate or prosecute any alcohol or drug abuse patient.[facility]In the event this information is protected by the Federal Confidentiality of Alcohol and Drug Abuse Patient Records regulations: The Federal rules restrict any use of the information to criminally investigate or prosecute any alcohol or drug abuse patient.[facility] the event this information is protected by the Federal Confidentiality of Alcohol and Drug Abuse Patient Records regulations: The Federal rules restrict any use of the information to criminally investigate or prosecute any alcohol or drug abuse patient.[facility]In the event this information is protected by the Federal Confidentiality of Alcohol and Drug Abuse Patient Records regulations: The Federal rules restrict any use of the information to criminally investigate or prosecute any alcohol or drug abuse patient.[facility]In the event this information is protected by the Federal Confidentiality of Alcohol and Drug Abuse Patient Records regulations: The Federal rules restrict any use of the information to criminally investigate or prosecute any alcohol or drug abuse patient.[facility] the event this information is protected by the Federal Confidentiality of Alcohol and Drug Abuse Patient Records regulations: The Federal rules restrict any use of the information to criminally investigate or prosecute any alcohol or drug abuse patient.[facility]In the event this information is protected by the Federal Confidentiality of Alcohol and Drug Abuse Patient Records regulations: The Federal rules restrict any use of the information to criminally investigate or prosecute any alcohol or drug abuse patient.[facility]In the event this information is protected by the Federal Confidentiality of Alcohol and Drug Abuse Patient Records regulations: The Federal rules restrict any use of the information to criminally investigate or prosecute any alcohol or drug abuse patient.[facility]In the event this information is protected by the Federal Confidentiality of Alcohol and Drug Abuse Patient Records regulations: The Federal rules restrict any use of the information to criminally investigate or prosecute any alcohol or drug abuse patient.[facility]In the event this information is protected by the Federal Confidentiality of Alcohol and Drug Abuse Patient Records regulations: The Federal rules restrict any use of the information to criminally investigate or prosecute any alcohol or drug abuse patient.[facility]In the event this information is protected by the Federal Confidentiality of Alcohol and Drug Abuse Patient Records regulations: The Federal rules restrict any use of the information to criminally investigate or prosecute any alcohol or drug abuse patient.[facility]In the event this information is protected by the Federal Confidentiality of Alcohol and Drug Abuse Patient Records regulations: The Federal rules restrict any use of the information to criminally investigate or prosecute any alcohol or drug abuse patient.[facility]In the event this information is protected by the Federal Confidentiality of Alcohol and Drug Abuse Patient Records regulations: The Federal rules restrict any use of the information to criminally investigate or prosecute any alcohol or drug abuse patient.[facility]In the event this information is protected by the Federal Confidentiality of Alcohol and Drug Abuse Patient Records regulations: The Federal rules restrict any use of the information to criminally investigate or prosecute any alcohol or drug abuse patient.[facility]In the event this information is protected by the Federal Confidentiality of Alcohol and Drug Abuse Patient Records regulations: The Federal rules restrict any use of the information to criminally investigate or prosecute any alcohol or drug abuse patient.[facility]In the event this information is protected by the Federal Confidentiality of Alcohol and Drug Abuse Patient Records regulations: The Federal rules restrict any use of the information to criminally investigate or prosecute any alcohol or drug abuse patient.[facility]In the event this information is protected by the Federal Confidentiality of Alcohol and Drug Abuse Patient Records regulations: The Federal rules restrict any use of the information to criminally investigate or prosecute any alcohol or drug abuse patient.[facility]In the event this information is protected by the Federal Confidentiality of Alcohol and Drug Abuse Patient Records regulations: The Federal rules restrict any use of the information to criminally investigate or prosecute any alcohol or drug abuse patient.[facility]In the event this information is protected by the Federal Confidentiality of Alcohol and Drug Abuse Patient Records regulations: The Federal rules restrict any use of the information to criminally investigate or prosecute any alcohol or drug abuse patient.[facility]In the event this information is protected by the Federal Confidentiality of Alcohol and Drug Abuse Patient Records regulations: The Federal rules restrict any use of the information to criminally investigate or prosecute any alcohol or drug abuse patient.[facility]In the event this information is protected by the Federal Confidentiality of Alcohol and Drug Abuse Patient Records regulations: The Federal rules restrict any use of the information to criminally investigate or prosecute any alcohol or drug abuse patient.OhiohealthIn the event this information is protected by the Federal Confidentiality of Alcohol and Drug Abuse Patient Records regulations: The Federal rules restrict any use of the information to criminally investigate or prosecute any alcohol or drug abuse patient.OhiohealthIn the event this information is protected by the Federal Confidentiality of Alcohol and Drug Abuse Patient Records regulations: The Federal rules restrict any use of the information to criminally investigate or prosecute any alcohol or drug abuse patient.[facility]healthIn the event this information is protected by the Federal Confidentiality of Alcohol and Drug Abuse Patient Records regulations: The Federal rules restrict any use of the information to criminally investigate or prosecute any alcohol or drug abuse patient.OhiohealthIn the event this information is protected by the Federal Confidentiality of Alcohol and Drug Abuse Patient Records regulations: The Federal rules restrict any use of the information to criminally investigate or prosecute any alcohol or drug abuse patient.[facility]healthIn the event this information is protected by the Federal Confidentiality of Alcohol and Drug Abuse Patient Records regulations: The Federal rules restrict any use of the information to criminally investigate or prosecute any alcohol or drug abuse patient.[facility]healthIn the event this information is protected by the Federal Confidentiality of Alcohol and Drug Abuse Patient Records regulations: The Federal rules restrict any use of the information to criminally investigate or prosecute any alcohol or drug abuse patient.OhiohealthIn the event this information is protected by the Federal Confidentiality of Alcohol and Drug Abuse Patient Records regulations: The Federal rules restrict any use of the information to criminally investigate or prosecute any alcohol or drug abuse patient.[facility]healthIn the event this information is protected by the Federal Confidentiality of Alcohol and Drug Abuse Patient Records regulations: The Federal rules restrict any use of the information to criminally investigate or prosecute any alcohol or drug abuse patient.OhiohealthIn the event this information is protected by the Federal Confidentiality of Alcohol and Drug Abuse Patient Records regulations: The Federal rules restrict any use of the information to criminally investigate or prosecute any alcohol or drug abuse patient.[facility]healthIn the event this information is protected by the Federal Confidentiality of Alcohol and Drug Abuse Patient Records regulations: The Federal rules restrict any use of the information to criminally investigate or prosecute any alcohol or drug abuse patient.[facility]healthIn the event this information is protected by the Federal Confidentiality of Alcohol and Drug Abuse Patient Records regulations: The Federal rules restrict any use of the information to criminally investigate or prosecute any alcohol or drug abuse patient.[facility]healthIn the event this information is protected by the Federal Confidentiality of Alcohol and Drug Abuse Patient Records regulations: The Federal rules restrict any use of the information to criminally investigate or prosecute any alcohol or drug abuse patient.OhiohealthIn the event this information is protected by the Federal Confidentiality of Alcohol and Drug Abuse Patient Records regulations: The Federal rules restrict any use of the information to criminally investigate or prosecute any alcohol or drug abuse patient.[facility]healthIn the event this information is protected by the Federal Confidentiality of Alcohol and Drug Abuse Patient Records regulations: The Federal rules restrict any use of the information to criminally investigate or prosecute any alcohol or drug abuse patient.OhiohealthIn the event this information is protected by the Federal Confidentiality of Alcohol and Drug Abuse Patient Records regulations: The Federal rules restrict any use of the information to criminally investigate or prosecute any alcohol or drug abuse patient.[facility]healthIn the event this information is protected by the Federal Confidentiality of Alcohol and Drug Abuse Patient Records regulations: The Federal rules restrict any use of the information to criminally investigate or prosecute any alcohol or drug abuse patient.[facility]healthIn the event this information is protected by the Federal Confidentiality of Alcohol and Drug Abuse Patient Records regulations: The Federal rules restrict any use of the information to criminally investigate or prosecute any alcohol or drug abuse patient.[facility]healthIn the event this information is protected by the Federal Confidentiality of Alcohol and Drug Abuse Patient Records regulations: The Federal rules restrict any use of the information to criminally investigate or prosecute any alcohol or drug abuse patient.[facility]healthIn the event this information is protected by the Federal Confidentiality of Alcohol and Drug Abuse Patient Records regulations: The Federal rules restrict any use of the information to criminally investigate or prosecute any alcohol or drug abuse patient.OhiohealthIn the event this information is protected by the Federal Confidentiality of Alcohol and Drug Abuse Patient Records regulations: The Federal rules restrict any use of the information to criminally investigate or prosecute any alcohol or drug abuse patient.OhiohealthIn the event this information is protected by the Federal Confidentiality of Alcohol and Drug Abuse Patient Records regulations: The Federal rules restrict any use of the information to criminally investigate or prosecute any alcohol or drug abuse patient.OhiohealthIn the event this information is protected by the Federal Confidentiality of Alcohol and Drug Abuse Patient Records regulations: The Federal rules restrict any use of the information to criminally investigate or prosecute any alcohol or drug abuse patient.[facility]healthIn the event this information is protected by the Federal Confidentiality of Alcohol and Drug Abuse Patient Records regulations: The Federal rules restrict any use of the information to criminally investigate or prosecute any alcohol or drug abuse patient.[facility]healthIn the event this information is protected by the Federal Confidentiality of Alcohol and Drug Abuse Patient Records regulations: The Federal rules restrict any use of the information to criminally investigate or prosecute any alcohol or drug abuse patient.[facility]healthIn the event this information is protected by the Federal Confidentiality of Alcohol and Drug Abuse Patient Records regulations: The Federal rules restrict any use of the information to criminally investigate or prosecute any alcohol or drug abuse patient.OhiohealthIn the event this information is protected by the Federal Confidentiality of Alcohol and Drug Abuse Patient Records regulations: The Federal rules restrict any use of the information to criminally investigate or prosecute any alcohol or drug abuse patient.[facility]healthIn the event this information is protected by the Federal Confidentiality of Alcohol and Drug Abuse Patient Records regulations: The Federal rules restrict any use of the information to criminally investigate or prosecute any alcohol or drug abuse patient.OhiohealthIn the event this information is protected by the Federal Confidentiality of Alcohol and Drug Abuse Patient Records regulations: The Federal rules restrict any use of the information to criminally investigate or prosecute any alcohol or drug abuse patient.[facility]healthIn the event this information is protected by the Federal Confidentiality of Alcohol and Drug Abuse Patient Records regulations: The Federal rules restrict any use of the information to criminally investigate or prosecute any alcohol or drug abuse patient.OhiohealthIn the event this information is protected by the Federal Confidentiality of Alcohol and Drug Abuse Patient Records regulations: The Federal rules restrict any use of the information to criminally investigate or prosecute any alcohol or drug abuse patient.OhiohealthIn the event this information is protected by the Federal Confidentiality of Alcohol and Drug Abuse Patient Records regulations: The Federal rules restrict any use of the information to criminally investigate or prosecute any alcohol or drug abuse patient.[facility] the event this information is protected by the Federal Confidentiality of Alcohol and Drug Abuse Patient Records regulations: The Federal rules restrict any use of the information to criminally investigate or prosecute any alcohol or drug abuse patient.[facility]healthIn the event this information is protected by the Federal Confidentiality of Alcohol and Drug Abuse Patient Records regulations: The Federal rules restrict any use of the information to criminally investigate or prosecute any alcohol or drug abuse patient.[facility]healthIn the event this information is protected by the Federal Confidentiality of Alcohol and Drug Abuse Patient Records regulations: The Federal rules restrict any use of the information to criminally investigate or prosecute any alcohol or drug abuse patient.[facility] ClinicIn the event this information is protected by the Federal Confidentiality of Alcohol and Drug Abuse Patient Records regulations: The Federal rules restrict any use of the information to criminally investigate or prosecute any alcohol or drug abuse patient.[facility]healthIn the event this information is protected by the Federal Confidentiality of Alcohol and Drug Abuse Patient Records regulations: The Federal rules restrict any use of the information to criminally investigate or prosecute any alcohol or drug abuse patient.[facility]healthIn the event this information is protected by the Federal Confidentiality of Alcohol and Drug Abuse Patient Records regulations: The Federal rules restrict any use of the information to criminally investigate or prosecute any alcohol or drug abuse patient.OhiohealthIn the event this information is protected by the Federal Confidentiality of Alcohol and Drug Abuse Patient Records regulations: The Federal rules restrict any use of the information to criminally investigate or prosecute any alcohol or drug abuse patient.[facility]healthIn the event this information is protected by the Federal Confidentiality of Alcohol and Drug Abuse Patient Records regulations: The Federal rules restrict any use of the information to criminally investigate or prosecute any alcohol or drug abuse patient.OhiohealthIn the event this information is protected by the Federal Confidentiality of Alcohol and Drug Abuse Patient Records regulations: The Federal rules restrict any use of the information to criminally investigate or prosecute any alcohol or drug abuse patient.OhiohealthIn the event this information is protected by the Federal Confidentiality of Alcohol and Drug Abuse Patient Records regulations: The Federal rules restrict any use of the information to criminally investigate or prosecute any alcohol or drug abuse patient.[facility]healthIn the event this information is protected by the Federal Confidentiality of Alcohol and Drug Abuse Patient Records regulations: The Federal rules restrict any use of the information to criminally investigate or prosecute any alcohol or drug abuse patient.OhiohealthIn the event this information is protected by the Federal Confidentiality of Alcohol and Drug Abuse Patient Records regulations: The Federal rules restrict any use of the information to criminally investigate or prosecute any alcohol or drug abuse patient.OhiohealthIn the event this information is protected by the Federal Confidentiality of Alcohol and Drug Abuse Patient Records regulations: The Federal rules restrict any use of the information to criminally investigate or prosecute any alcohol or drug abuse patient.OhiohealthIn the event this information is protected by the Federal Confidentiality of Alcohol and Drug Abuse Patient Records regulations: The Federal rules restrict any use of the information to criminally investigate or prosecute any alcohol or drug abuse patient.[facility]healthIn the event this information is protected by the Federal Confidentiality of Alcohol and Drug Abuse Patient Records regulations: The Federal rules restrict any use of the information to criminally investigate or prosecute any alcohol or drug abuse patient.[facility]healthIn the event this information is protected by the Federal Confidentiality of Alcohol and Drug Abuse Patient Records regulations: The Federal rules restrict any use of the information to criminally investigate or prosecute any alcohol or drug abuse patient.OhiohealthIn the event this information is protected by the Federal Confidentiality of Alcohol and Drug Abuse Patient Records regulations: The Federal rules restrict any use of the information to criminally investigate or prosecute any alcohol or drug abuse patient.OhiohealthIn the event this information is protected by the Federal Confidentiality of Alcohol and Drug Abuse Patient Records regulations: The Federal rules restrict any use of the information to criminally investigate or prosecute any alcohol or drug abuse patient.[facility]healthIn the event this information is protected by the Federal Confidentiality of Alcohol and Drug Abuse Patient Records regulations: The Federal rules restrict any use of the information to criminally investigate or prosecute any alcohol or drug abuse patient.OhiohealthIn the event this information is protected by the Federal Confidentiality of Alcohol and Drug Abuse Patient Records regulations: The Federal rules restrict any use of the information to criminally investigate or prosecute any alcohol or drug abuse patient.[facility]healthIn the event this information is protected by the Federal Confidentiality of Alcohol and Drug Abuse Patient Records regulations: The Federal rules restrict any use of the information to criminally investigate or prosecute any alcohol or drug abuse patient.[facility]healthIn the event this information is protected by the Federal Confidentiality of Alcohol and Drug Abuse Patient Records regulations: The Federal rules restrict any use of the information to criminally investigate or prosecute any alcohol or drug abuse patient.OhiohealthIn the event this information is protected by the Federal Confidentiality of Alcohol and Drug Abuse Patient Records regulations: The Federal rules restrict any use of the information to criminally investigate or prosecute any alcohol or drug abuse patient.[facility] Reason for Visit (unrecogniz ed section and [...] [place] Specialty Diagnoses / Procedures Referred By Nicky youssef Referred To Contact Diagnoses Atrial fibrillation, unspecified type (HCC) Procedures PERQ CLSR TCAT L ATR APNDGE W/ENDOCARDIAL IMPLNT PERC TRANSCATH CLOSURE LEFT ATRIAL APPENDAGE W/IMPLANT,INCLUSIVE OF FLUORO,TRANSEPTAL PUNCTURE,CATH PLACEMENT(S) ANGIO,WHEN PERFORMED,[facility] [address] [place] [address] Referral ID Status Reason Start Date Expiration Date Visits Re quested Visits Authorized [id number] 1 1 Reason Comments Patient Question Reason [...] MYOCARDIAL [place] [address] [place] [address] [facility] [address] [place] [id number] Referral ID Status Reason Start Date Expiration Date Visits Requested Visits Authorized [id number] Authorized Auto-Generat ed Referral 3 05/25/2024 1 1 Reason Comments Toenail Care Non DM nail care Reason Comments Back Pain MRI Report Specialty Diagnoses / Procedures Referred By Contac t Referred To Contact [facility] Diagnoses back pain pt to bring disc Procedures NEW NI MEDICAL Self Alpa Ram DO [address] [place] [address] Referral ID Status Reason Start Date Expiration Date V isits Requested Visits Authorized [id number] Outside PCP 06/22/2023 08/21/2023 1 1 Reason [...] STRESS/PHARM MYOCARDIAL SPECT MULTIPLE STUDIES Jacqueline Tamayo APRN.[employer]IERS SUPERVISOR [address] [place] [address] [facility] [address] [place] [address] Referral ID Status Reason Start Date Expiration Date V isits Requested Visits Authorized [id number] Closed Auto-Generate d Referral 06/16/2023 06/16/2023 2 2 Reason Comments Low Back Pain Reason Comments Back Pain Neck Pain Reason Comments Skin Check Reason Onset Date Comments Refill Request 03/27/2024 Reason Comments Follow Up Reason Comments Patient Question A fib confirmation Reason Comments A-fib Reason Comments F/U 6 Month Reason Comments Procedure Heart cath Reason Comments Clinical Update Reason Comments Insurance Inquiry Reason Comments Nurse Visit Specialty Diagnoses / Procedures Referred By Contac t Referred To Contact [facility] Diagnoses Paroxysmal atrial fibrillation (HCC) Procedures ECG COMPLETE ECG ROUTINE ECG W/LEAST 12 LDS W/I&[place] [address] [place] [address] [facility] [address] [address] Referral ID Status Reason Start Date Expiration Date V isits Requested Visits Authorized [id number] Closed Auto-Generate d Referral 04/12/2024 04/12/2025 1 1 Reason Comments Nurse Visit-Start IV For Scan Specialty Diagnoses / Procedures Referred By Contac t Referred To Contact [facility] Diagnoses Aortic dilatation (HCC) Procedures CTA CHEST (GATED) W IVCON CT ANGIOGRAPHY CHEST W/CONTRAST/NONCONTRAST Moni Mandujano, HOP SORTER.[employer] SUPERVISOR [address] [place] [address] [place] [address] Referral ID Status Reason Start Date Expiration Date V isits Requested Visits Authorized [id number] Closed Auto-Generate d Referral 05/18/2024 06/17/2025 1 1 Reason Comments Question Reason Comments Referral Information Case Review Specialty Diagnoses / Procedures Referred By Contac t Referred To Contact [facility] Diagnoses Persistent atrial fibrillation (HCC) Acute HFrEF (heart failure with reduced ejection fraction) (HCC) Procedures ECG COMPLETE ECG ROUTINE ECG W/LEAST 12 LDS W/I&R Moni Mandujano, HOP SORTER.CASHIERS SUPERVISOR [address] [place] [address] [facility] [address] [address] Referral ID Status Reason Start Date Expiration Date V isits Requested Visits Authorized [id number] Closed Auto-Generate d Referral 05/28/2024 05/28/2025 1 1 Reason Comments Ankle Pain LT ankle sprain Reason Comments Results - Ct Reason Comments Preperations for Procedure Mychart Reason Comments Follow Up requesting a second injection if possible Reason Comments Toenail Care Non DM nail care Foot Pain RT 5th met pain Reason Comments Preperations for Procedure Call Reason Comments Follow-up Fu lt foot Reason Comments Shortness of breath with walking, new co ugh Patient Update Reason Comments Cardiology Follow Up Reason Onset Date Comments Appointment 07/30/2024 Reason Comments Back Pain Neck Pain Sleep Apnea Reason Comments message from patient Reason Comments Toenail Care Non dm nail care Reason Comments Preperations for Procedure Mychart Reason Comments Clinical Symptoms Reason Comments Atrial Fibrillation Reason Onset Date Comments Appointment 09/10/2024 Clinical Update 09/10/2024 Reason Comments No Show Reason Comments Appointment Reason Comments Post Injection Questions Reason Onset Date Comments Refill Request 10/02/2024 Reason Comments Spirometry Specialty Diagnoses / Procedures Referred By Contac t Referred To Contact [facility] Diagnoses M[facility] current use of amiodarone Procedures LUNG DIFFUSION CAPACITY (DLCO) [place] [address] [place] [address] Phone: tel: fax: [facility] [address] [place] [address] Referral ID Status Reason Start Date Expiration Date V isits Requested Visits Authorized [id number] Closed Auto-Generate d Referral 09/10/2024 10/10/2025 1 1 Specialty Diagnoses / Procedures Referred By Contac t Referred To Contact [facility] 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 Procedures SPIROMETRY - BASELINE AND POST DILATOR BRNCDILAT RSPSE SPMTRY PRE&[place] [address] [place] [address] Phone: tel: fax: [facility] [address] [place] [address] Referral ID Status Reason Start Date Expiration Date V isits Requested Visits Authorized [id number] Closed Auto-Generate d Referral 09/10/2024 10/10/2025 1 1 Reason Comments Established Patient Care Teams (unrecognized sec tion and content) Team Status: Active Member Role Status Dates Scarlett Gaviria Primary Care Provider Active Team Status: Active Member Role Status Dates Scarlett Gaviria Primary Care Provider Active Star t: May 03, 2024 End: May 05, 2024 Gerardo Lopez DO Attending Provider Active Sta rt: May 03, 2024 End: May 05, 2024 Papi Max MD Referring Provider Active Sta rt: May 03, 2024 End: May 05, 2024 Team Status: Inactive Member Role Status Dates Scarlett Gaviria Primary Care Provider Active Star t: July 06, 2024 End: July 06, 2024 DENEEN Cesar RN TRAIN BRAKE OPERATOR-C Attending Provider Active Start: July 06 End: July 06, 2024 Jockey Room Custodian Relationship Specialty Start Date End Date Scarlett Gaviria [address] [place] [phone] PCP - General Family Practice 10/15/15 [facility] [address] [place] [address] Primary Staff Physician Cardiology 07/18/18 Jockey Room Custodian Relationship Specialty Start Date End Date Scarlett Gaviria [address] [place] [phone] PCP - General Family Practice 10/15/15 [facility] [address] [place] [place] [address] Primary Staff Physician Cardiology 07/18/18 Jockey Room Custodian Relationship Specialty Start Date End Date Scarlett Gaviria [address] [place] [phone] PCP - General Family Practice 10/15/15 [facility] [address] [place] [address] Primary Staff Physician Cardiology 07/18/18 Jockey Room Custodian Relationship Specialty Start Date End Date Scarlett Gaviria [address] [place] [address] PCP - General Family Practice 10/15/15 Yamile Thomastan Vagesh [address] [place] [address] Primary Staff Physician Cardiology 07/18/18 Jockey Room Custodian Relationship Specialty Start Date End Date Scarlett Gaviria [address] [place] [phone] PCP - General Family Practice 10/15/15 Martha, Nolberto Vagesh [address] [place] [address] Primary Staff Physician Cardiology 07/18/18 Jockey Room Custodian Relationship Specialty Start Date End Date Scarlett [place] [phone] PCP - General Family Practice 10/15/15 [facility] [address] [place] [address] Primary Staff Physician Cardiology 07/18/18 Jockey Room Custodian Relationship Specialty Start Date End Date Scarlett [place] [phone] PCP - General Family Medicine 10/15/15 [facility] Nolberto Vagesh [address] [place] [address] Primary Staff Physician Cardiology 07/18/18 Jockey Room Custodian Relationship Specialty Start Date End Date Scarlett Gaviria [address] [place] [phone] PCP - General Family Medicine 10/15/15 Jacobysonia, Nolberto Vagesh [address] [place] [address] Primary Staff Physician Cardiology 07/18/18 Jockey Room Custodian Relationship Specialty Start Date End Date Scarlett [place] [phone] PCP - General Family Medicine 10/15/15 [facility] Vagesh [address] [place] [address] Primary Staff Physician Cardiology 07/18/18 Jockey Room Custodian Relationship Specialty Start Date End Date Scarlett Gaviria [address] [place] [address] PCP - General Family Medicine 10/15/15 [facility] [address] [place] [address] Primary Staff Physician Cardiology 07/18/18 Jockey Room Custodian Relationship Specialty Start Date End Date Scarlett Gaviria [address] [place] [phone] PCP - General Family Medicine 10/15/15 [facility] [address] [place] [address] Primary Staff Physician Cardiology 07/18/18 Jockey Room Custodian Relationship Specialty Start Date End Date Scarlett Gaviria [address] [facility] [place] [address] PCP - General Family Medicine 10/15/15 [facility], Nolberto Vagesh [address] [place] [address] Primary Staff Physician Cardiology 07/18/18 Flory Fan MD [address] [place] [address] Primary Staff Physician Cardiology 05/18/22 Jockey Room Custodian Relationship Specialty Start Date End Date Scarlett Gaviria [address] [place] [address] PCP - General Family Medicine 10/15/15 [facility] [address] [place] [address] Primary Staff Physician Cardiology 07/18/18 Flory Fan MD [address] [place] [address] Primary Staff Physician Cardiology 05/18/22 Jockey Room Custodian Relationship Specialty Start Date End Date Scarlett Gaviria [address] [place] [address] PCP - General Family Medicine 10/15/15 [facility] [address] [place] [address] Primary Staff Physician Cardiology 07/18/18 Flory Fan MD [address] [place] [address] Primary Staff Physician Cardiology 05/18/22 Jockey Room Custodian Relationship Specialty Start Date End Date Scarlett Gaviria [address]aila [facility] [place] [address] PCP - General Family Medicine 10/15/15 [facility] [address] [place] [address] Primary Staff Physician Cardiology 07/18/18 Flory Fan MD [address] [place] [address] Primary Staff Physician Cardiology 05/18/22 Jockey Room Custodian Relationship Specialty Start Date End Date Scarlett [place] [address] PCP - General Family Medicine 10/15/15 [facility] [address] [place] [address] Primary Staff Physician Cardiology 07/18/18 Flory Fan MD [address] [place] [address] Primary Staff Physician Cardiology 05/18/22 Jockey Room Custodian Relationship Specialty Start Date End Date Scarlett Gaviriact Cheryl [facility] [address] PCP - General Family Medicine 10/15/15 [facility] [address] [place] [address] Primary Staff Physician Cardiology 07/18/18 Flory Fan MD [address] [place] [address] Primary Staff Physician Cardiology 05/18/22 Jockey Room Custodian Relationship Specialty Start Date End Date Scarlett Gaviria [address] [facility] [place] [address] PCP - General Family Medicine 10/15/15 [facility] [address] [place] [address] Primary Staff Physician Cardiology 07/18/18 Flory Fan MD [address] [place] [address] Primary Staff Physician Cardiology 05/18/22 Jockey Room Custodian Relationship Specialty Start Date End Date Scarlett Gaviria [address] [place] [address] PCP - General Family Medicine 10/15/15 Nolberto Thomas [address] [place] [address] Primary Staff Physician Cardiology 07/18/18 Flory Fan MD [address] [place] [address] Primary Staff Physician Cardiology 05/18/22 Jockey Room Custodian Relationship Specialty Start Date End Date Scarlett Gaviria [address] [place] [address] PCP - General Family Medicine 10/15/15 Nolberto Thomas [address] [place] [address] Primary Staff Physician Cardiology 07/18/18 Flory Fan MD [address] [place] [address] Primary Staff Physician Cardiology 05/18/22 Jockey Room Custodian Relationship Specialty Start Date End Date Scarlett Gaviria Nathaniel [address] [place] [address] PCP - General Family Medicine 10/15/15 Nolberto Thomas [address] [place] [address] Primary Staff Physician Cardiology 07/18/18 Flory Fan MD [address] [place] [address] Primary Staff Physician Cardiology 05/18/22 Jockey Room Custodian Relationship Specialty Start Date End Date Scarlett Gaviria [address] [place] [address] PCP - General Family Medicine 10/15/15 Nolberto Thomas [address] [place] [address] Primary Staff Physician Cardiology 07/18/18 Flory Fan MD [address] [place] [address] Primary Staff Physician Cardiology 05/18/22 Jockey Room Custodian Relationship Specialty Start Date End Date Scarlett Gaviria [address] [place] [address] PCP - General Family Medicine 10/15/15 Nolberto Thomas [address] [place] [address] Primary Staff Physician Cardiology 07/18/18 Flory Fan MD [address] [place] [address] Primary Staff Physician Cardiology 05/18/22 Jockey Room Custodian Relationship Specialty Start Date End Date Scarlett Gaviria [address] [place] [address] PCP - General Family Medicine 10/15/15 Nolberto Thomas [address] [place] [address] Primary Staff Physician Cardiology 07/18/18 Flory Fan MD [address] [place], [place] [address] Primary Staff Physician Cardiology 05/18/22 Jockey Room Custodian Relationship Specialty Start Date End Date Scarlett Gaviria [address] [place] [address] PCP - General Family Medicine 10/15/15 Nolberto Thomas [address] [place] [address] Primary Staff Physician Cardiology 07/18/18 Flory Fan MD [address] [place] [address] Primary Staff Physician Cardiology 05/18/22 Jockey Room Custodian Relationship Specialty Start Date End Date Unallocated, Noms Provider [address] [facility] [place] [address] PCP - General 11/15/22 Scarlett Gaviria NP [address] [place] [address] Referring Physician Family Medicine 11/15/22 Jockey Room Custodian Relationship Specialty Start Date End Date Unallocated, Noms Provider [address] [place] [address] PCP - General 11/15/22 Scarlett Gaviria NP [address] [place] [address] Referring Physician Family Medicine 11/15/22 Jockey Room Custodian Relationship Specialty Start Date End Date Scarlett Gaviria [address] [place] [address] PCP - General Family Medicine 10/15/15 Nolberto Thomas [address] [place] [place] [address] Primary Staff Physician Cardiology 07/18/18 Flory Fan MD [address] [place] [address] Primary Staff Physician Cardiology 05/18/22 Jockey Room Custodian Relationship Specialty Start Date End Date Scarlett Gaviria [address] [place] [address] PCP - General Family Medicine 10/15/15 Nolberto Thomas [address] [place] [address] Primary Staff Physician Cardiology 07/18/18 Flory Fan MD [address] [place], [place] [address] Primary Staff Physician Cardiology 05/18/22 Team Status: Inactive Member Role Status Dates Scarlett Gaviria Primary Care Provider Active Star t: June 20, 2023 End: June 20, 2023 ROOPA Hussein Attending Provider Active Start: June 20, 2023 End: June 20, 2023 Team Status: Active Member Role Status Dates Scarlett Gaviria Primary Care Provider Active Star t: June 20, 2023 ROOPA Hussein Attending Provider Active Start: June 20, 2023 Jockey Room Custodian Relationship Specialty Start Date End Date Scarlett Gaviria [address] [place] [address] PCP - General Family Medicine 10/15/15 Nolberto Thomas [address] [place], [place] [address] Primary Staff Physician Cardiology 07/18/18 Flory Fan MD [address] [place], [place] [address] Primary Staff Physician Cardiology 05/18/22 Jockey Room Custodian Relationship Specialty Start Date End Date Scarlett Gaviria [address] [place] [address] PCP - General Family Medicine 10/15/15 Nolberto Thomas [address] [place] [address] Primary Staff Physician Cardiology 07/18/18 Flory Fan MD [address] [place], [place] [address] Primary Staff Physician Cardiology 05/18/22 Jockey Room Custodian Relationship Specialty Start Date End Date Scarlett Gaviria [address] [place] [address] PCP - General Family Medicine 10/15/15 Nolberto Thomas [address] [place] [address] Primary Staff Physician Cardiology 07/18/18 Flory Fan MD [address] [place] [address] Primary Staff Physician Cardiology 05/18/22 Jockey Room Custodian Relationship Specialty Start Date End Date Scarlett Gaviria [address] [place] [address] PCP - General Family Medicine 10/15/15 Nolberto Thomas [address] [place] [address] Primary Staff Physician Cardiology 07/18/18 Flory Fan MD [address] [place] [address] Primary Staff Physician Cardiology 05/18/22 Jockey Room Custodian Relationship Specialty Start Date End Date Scarlett Gaviria [address] [place] [address] PCP - General Family Medicine 10/15/15 Nolberto Thomas [address] [place] [address] Primary Staff Physician Cardiology 07/18/18 Flory Fan MD [address] [place] [address] Primary Staff Physician Cardiology 05/18/22 Jockey Room Custodian Relationship Specialty Start Date End Date Scarlett Gaviria [address] [place] [address] PCP - General Family Medicine 10/15/15 Nolberto Thomas [address] [place] [address] Primary Staff Physician Cardiology 07/18/18 Flory Fan MD [address] [place], [place] [address] Primary Staff Physician Cardiology 05/18/22 Jockey Room Custodian Relationship Specialty Start Date End Date Scarlett Gaviria [address] [place] [address] PCP - General Family Medicine 10/15/15 Nolberto Thomas [address] [place] [address] Primary Staff Physician Cardiology 07/18/18 Flory Fan MD [address] [place], [place] [address]48[address] Primary Staff Physician Cardiology 05/18/22 Jockey Room Custodian Relationship Specialty Start Date End Date Scarlett Gaviria [address] [place] [place] [address] PCP - General Family Medicine 10/15/15 Nolberto Thomas [address] [place] [address] Primary Staff Physician Cardiology 07/18/18 Flory Fan MD [address] [place], [place] [address] Primary Staff Physician Cardiology 05/18/22 Jockey Room Custodian Relationship Specialty Start Date End Date Scarlett Gaviria [address] [place] [address] PCP - General Family Medicine 10/15/15 Nolberto Thomas [address] [place], [place] [address] Primary Staff Physician Cardiology 07/18/18 Flory Fan MD [address] [place] [address] Primary Staff Physician Cardiology 05/18/22 Jockey Room Custodian Relationship Specialty Start Date End Date Scarlett Gaviria [address] [place] [address] PCP - General Family Medicine 10/15/15 Nolberto Thomas [address] [place] [address] Primary Staff Physician Cardiology 07/18/18 Flory Fan MD [address] [place] [address] Primary Staff Physician Cardiology 05/18/22 Jockey Room Custodian Relationship Specialty Start Date End Date Scarlett Gaviria [address] [place] [address] PCP - General Family Medicine 10/15/15 Nolberto Thomas [address] [place] [address] Primary Staff Physician Cardiology 07/18/18 Flory Fan MD [address] [place] [address] Primary Staff Physician Cardiology 05/18/22 Jockey Room Custodian Relationship Specialty Start Date End Date Scarlett Gaviria [address] [place] [address] PCP - General Family Medicine 10/15/15 Nolberto Thomas [address] [place] [address] Primary Staff Physician Cardiology 07/18/18 Flory Fan MD [address] [place] [address] Primary Staff Physician Cardiology 05/18/22 Jockey Room Custodian Relationship Specialty Start Date End Date Scarlett Gaviria [address] [place] [address] PCP - General Family Medicine 10/15/15 Nolberto Thomas [address] [place] [address] Primary Staff Physician Cardiology 07/18/18 Flory Fan MD [address] [place] [address] Primary Staff Physician Cardiology 05/18/22 Jockey Room Custodian Relationship Specialty Start Date End Date Scarlett Gaviria [address] [place] [address] PCP - General Family Medicine 10/15/15 Nolberto Thomas [address] [place] [address] Primary Staff Physician Cardiology 07/18/18 Flory Fan MD [address] [place] [address] Primary Staff Physician Cardiology 05/18/22 Jockey Room Custodian Relationship Specialty Start Date End Date Scarlett Gaviria [address] [facility] [address] PCP - General Family Medicine 10/15/15 Nolberto Thomas [address] [place] [address] Primary Staff Physician Cardiology 07/18/18 Flory Fan MD [address] [place], [place] [address] Primary Staff Physician Cardiology 05/18/22 Jockey Room Custodian Relationship Specialty Start Date End Date Scarlett Gaviria [address] [facility] [address] PCP - General Family Medicine 10/15/15 Nolberto Thomas [address] [place] [address] Primary Staff Physician Cardiology 07/18/18 Flory Fan MD [address] [place], [place] [address] Primary Staff Physician Cardiology 05/18/22 Jockey Room Custodian Relationship Specialty Start Date End Date Unallocated, [place] [address] PCP - General 11/15/22 Scarlett Gaviria NP [address] [place] [address] Referring Physician Family Medicine 11/15/22 Jockey Room Custodian Relationship Specialty Start Date End Date Unallocated, Qian Prasad MD [facility] [place] [address] PCP - General 11/15/22 Scarlett Gaviria NP [address] [place] [address] Referring Physician Family Medicine 11/15/22 Jockey Room Custodian Relationship Specialty Start Date End Date Unallocated, Qian Praasd MD [facility] [place] [address] PCP - General 11/15/22 Scarlett Gaviria NP [address] [place] [address] Referring Physician Family Medicine 11/15/22 Jockey Room Custodian Relationship Specialty Start Date End Date Unallocated, Qian Prasad MD [facility] [place] [address] PCP - General 11/15/22 Scarlett Gaviria NP [address] [place] [address] Referring Physician Family Medicine 11/15/22 Jockey Room Custodian Relationship Specialty Start Date End Date Unallocated, [place] [address] PCP - General 11/15/22 Scarlett Gaviria NP [address] [place] [address] Referring Physician Family Medicine 11/15/22 Jockey Room Custodian Relationship Specialty Start Date End Date Unallocated, Noms ProviderMD [address] [place] [address] PCP - General 11/15/22 Scarlett Gaviria NP [address] [place] [address] Referring Physician Family Medicine 11/15/22 Jockey Room Custodian Relationship Specialty Start Date End Date Unallocated, Noms Provider, [address] [place] [address] PCP - General 11/15/22 Scarlett Gaviria NP [address] [place] [address] Referring Physician Family Medicine 11/15/22 Jockey Room Custodian Relationship Specialty Start Date End Date Unallocated, Noms Provider, [address] [place] [address] PCP - General 11/15/22 Scarlett Gaviria NP [address] [place] [address] Referring Physician Family Medicine 11/15/22 Jockey Room Custodian Relationship Specialty Start Date End Date Scarlett Gaviria [address] [place] [address] PCP - General Family Medicine 10/15/15 Nolberto Thomas [address] [place], [place] [address] Primary Staff Physician Cardiology 07/18/18 Flory Fan MD [address] [place], [place] [address]23[address] Primary Staff Physician Cardiology 05/18/22 Jockey Room Custodian Relationship Specialty Start Date End Date Scarlett Gaviria [address] [place] [address] PCP - General Family Medicine 10/15/15 Nolberto Thomas [address] [place] [address] Primary Staff Physician Cardiology 07/18/18 Flory Fan MD [address] [place], [place] [address] Primary Staff Physician Cardiology 05/18/22 Jockey Room Custodian Relationship Specialty Start Date End Date Scarlett Gaviria [address] [place] [address] PCP - General Family Medicine 10/15/15 Nolberto Thomas [address] [place] [address] Primary Staff Physician Cardiology 07/18/18 Flory Fan MD [address] [place] [address] Primary Staff Physician Cardiology 05/18/22 Jockey Room Custodian Relationship Specialty Start Date End Date Scarlett Gaviria [address] [place] [address] PCP - General Family Medicine 10/15/15 Nolberto Thomas [address] [place], [place] [address] Primary Staff Physician Cardiology 07/18/18 Flory Fan MD [address] [place], [place] [address] Primary Staff Physician Cardiology 05/18/22 Jockey Room Custodian Relationship Specialty Start Date End Date Scarlett Gaviria [address] [place] [address] PCP - General Family Medicine 10/15/15 [facility] [address] [place] [address] Primary Staff Physician Cardiology 07/18/18 Flory Fan MD [address] [place], [place] [address] Primary Staff Physician Cardiology 05/18/22 Jockey Room Custodian Relationship Specialty Start Date End Date Scarlett Gaviria [address] [place] [address] PCP - General Family Medicine 10/15/15 Nolberto Thomas [address] [place], [place] [address] Primary Staff Physician Cardiology 07/18/18 Flory Fan MD [address] [place] [address] Primary Staff Physician Cardiology 05/18/22 [place] [address] [place] [address] Process Controls Technician Cardiology 05/24/24 Pamela Simon MD [address] [place] [address] Surgeon Cardiac Surg 05/24/24 [place] [address] [place] [address] Process Controls Technician Cardiology 05/24/24 Jockey Room Custodian Relationship Specialty Start Date End Date Scarlett Gaviria [address] [place] [address] PCP - General Family Medicine 10/15/15 Nolberto Thomas [address] [place] [address] Primary Staff Physician Cardiology 07/18/18 Flory Fan MD [address] [place] [address] Primary Staff Physician Cardiology 05/18/22 Jockey Room Custodian Relationship Specialty Start Date End Date Scarlett Gaviria [address] [place] [address] PCP - General Family Medicine 10/15/15 Nolberto Thomas [address] [facility] [address] Primary Staff Physician Cardiology 07/18/18 Flory Fan MD [address] [place], [place] [address] Primary Staff Physician Cardiology 05/18/22 [place] [address] [place] [address] Process Controls Technician Cardiology 05/24/24 [place] [address] [place] [address] Process Controls Technician Cardiology 05/24/24 Dion Fontaine MD [address] [place], [place] [address] Surgeon Cardiac Surg 05/25/24 Jockey Room Custodian Relationship Specialty Start Date End Date Scarlett Gaviria CASHIERS SUPERVISOR [address] [place] [address] PCP - General Family Medicine 10/15/15 Nolberto Thomas [address] [place] [address] Primary Staff Physician Cardiology 07/18/18 Flory Fan MD [address] [place], [place] [address] Primary Staff Physician Cardiology 05/18/22 [place] [address] [place] [address] Process Controls Technician Cardiology 05/24/24 [place] [address] [place] [address] Process Controls Technician Cardiology 05/24/24 Dion Fontaine MD [address] [place] [address] Surgeon Cardiac Surg 05/25/24 Jockey Room Custodian Relationship Specialty Start Date End Date Scarlett Gaviria CNP [address] [place] [address] PCP - General Family Medicine 10/15/15 Nolberto Thomas [address] [place] [address] Primary Staff Physician Cardiology 07/18/18 Flory Fan MD [address] [place] [address] Primary Staff Physician Cardiology 05/18/22 [place] [address] [place] [address] Process Controls Technician Cardiology 05/24/24 Pamela Simon MD [address] [place] [address] Surgeon Cardiac Surg 05/24/24 05/24/24 [place] [address] [place] [address] Process Controls Technician Cardiology 05/24/24 Dion Fontaine MD [address] [place] [address] Surgeon Cardiac Surg 05/25/24 Jockey Room Custodian Relationship Specialty Start Date End Date Scarlett Gaviria CNP [address] [facility] [address] PCP - General Family Medicine 10/15/15 Nolberto Thomas [address] [facility] [place] [address] Primary Staff Physician Cardiology 07/18/18 Flory Fan MD [address] [place] [address] Primary Staff Physician Cardiology 05/18/22 [place] [address] [place] [address] Process Controls Technician Cardiology 05/24/24 [place] [address] [place] [address] Process Controls Technician Cardiology 05/24/24 Dion Fontaine MD [address] [place] [address] Surgeon Cardiac Surg 05/25/24 Jockey Room Custodian Relationship Specialty Start Date End Date Unallocated, Indigos MD Osmar [address] [place] [address] PCP - General 11/15/22 Scarlett Gaviria, LY [address] [facility] [place] [address] Referring Physician Family Medicine 11/15/22 Jockey Room Custodian Relationship Specialty Start Date End Date Scarlett Gaviria CNP [address] [place] [address] PCP - General Family Medicine 10/15/15 Nolberto Thomas [address] [place] [address] Primary Staff Physician Cardiology 07/18/18 Flory Fan MD [address] [place] [address] Primary Staff Physician Cardiology 05/18/22 [place] [address] [place] [address] Process Controls Technician Cardiology 05/24/24 [place] [address] [place] [address] Process Controls Technician Cardiology 05/24/24 Dion Fontaine MD [address] [place] [address] Surgeon Cardiac Surg 05/25/24 Jockey Room Custodian Relationship Specialty Start Date End Date Scarlett Gaviria CNP [address] [place] [address] PCP - General Family Medicine 10/15/15 Nolberto Thomas [address] [place], [place] [address] Primary Staff Physician Cardiology 07/18/18 Flory Fan MD [address] [place] [address] Primary Staff Physician Cardiology 05/18/22 [place] [address] [place] [address] Process Controls Technician Cardiology 05/24/24 [place] [address] [place] [address] Process Controls Technician Cardiology 05/24/24 Dion Fontaine MD [address] [place] [address] Surgeon Cardiac Surg 05/25/24 Jockey Room Custodian Relationship Specialty Start Date End Date Scarlett Gaviria CASHIERS SUPERVISOR [address] [place] [address] PCP - General Family Medicine 10/15/15 Nolberto Thomas [address] [place] [address] Primary Staff Physician Cardiology 07/18/18 Flory Fan MD [address] [place] [address] Primary Staff Physician Cardiology 05/18/22 [place] [address] [place] [address] Process Controls Technician Cardiology 05/24/24 [place] [address] [place] [address] Process Controls Technician Cardiology 05/24/24 Dion Fontaine MD [address] [facility] [place] [address] Surgeon Cardiac Surg 05/25/24 Jockey Room Custodian Relationship Specialty Start Date End Date Unallocated, Qian Prasad MD [address] [place] [address] PCP - General 11/15/22 Scarlett Gaviria NP [address] [place] [address] Referring Physician Family Medicine 11/15/22 Jockey Room Custodian Relationship Specialty Start Date End Date Scarlett Gaviria CASHIERS SUPERVISOR [address] [place] [address] PCP - General Family Medicine 10/15/15 Nolberto Thomas [address] [facility] [address] Primary Staff Physician Cardiology 07/18/18 Flory Fan MD [address] [place] [address] Primary Staff Physician Cardiology 05/18/22 Justina [place] [address] [place] [address] Process Controls Technician Cardiology 05/24/24 [place] [address] [place] [address] Process Controls Technician Cardiology 05/24/24 Dion Fontaine MD [address] [place] [address] Surgeon Cardiac Surg 05/25/24 Jockey Room Custodian Relationship Specialty Start Date End Date Scarlett Gaviria CNP [address] [place] [phone] PCP - General Family Medicine 10/15/15 Nolberto Thomas [address] [facility] [phone] Primary Staff Physician Cardiology 07/18/18 Flory Fan MD [address] [place], [place] [id number] Primary Staff Physician Cardiology 05/18/22 [place] [address] [place] [address] Process Controls Technician Cardiology 05/24/24 [place] [address] [place] [address] Process Controls Technician Cardiology 05/24/24 Dion Fontaine MD [address] [place] [address] Surgeon Cardiac Surg 05/25/24 Jockey Room Custodian Relationship Specialty Start Date End Date Scarlett Gaviria CNP [address] [place] [phone] PCP - General Family Medicine 10/15/15 Nolberto Thomas [address] [place] [address] Primary Staff Physician Cardiology 07/18/18 Flory Fan MD [address] [place] [address] Primary Staff Physician Cardiology 05/18/22 [place] [address] [place] [address] Process Controls Technician Cardiology 05/24/24 [place] [address] [place] [address] Process Controls Technician Cardiology 05/24/24 Dion Fontaine MD [address] [place] [address] Surgeon Cardiac Surg 05/25/24 Jockey Room Custodian Relationship Specialty Start Date End Date Scarlett Gaviria CASHIERS SUPERVISOR [address] [place] [phone] PCP - General Family Medicine 10/15/15 Nolberto Thomas [address] [place] [address] Primary Staff Physician Cardiology 07/18/18 Flory Fan MD [address] [place] [address] Primary Staff Physician Cardiology 05/18/22 [place] [address] [place] [address] Process Controls Technician Cardiology 05/24/24 [place] [address] [place] [address] Process Controls Technician Cardiology 05/24/24 Dion Fontaine MD [address] [place] [address] Surgeon Cardiac Surg 05/25/24 Jockey Room Custodian Relationship Specialty Start Date End Date Ny Hurtado NP [address] [facility] [address] [place] [address] PCP - General Family Medicine 08/03/24 Nolberto Thomas [address] [place] [address] Primary Staff Physician Cardiology 07/18/18 Flory Fan MD [address] [place] [address] Primary Staff Physician Cardiology 05/18/22 [place] [address] [place] [address] Process Controls Technician Cardiology 05/24/24 [place] [address] [place] [address] Process Controls Technician Cardiology 05/24/24 Dion Fontaine MD [address] [place] [address] Surgeon Cardiac Surg 05/25/24 Jockey Room Custodian Relationship Specialty Start Date End Date Ny Hurtado, TRAIN BRAKE OPERATOR [address] [facility] [address] [place] [address] PCP - General Family Medicine 08/03/24 Nolberto Thomas [address] [place] [address] Primary Staff Physician Cardiology 07/18/18 Flory Fan MD [address] [place] [address] Primary Staff Physician Cardiology 05/18/22 [place] [address] [place] [address] Process Controls Technician Cardiology 05/24/24 [place] [address] [place] [address] Process Controls Technician Cardiology 05/24/24 Dion Fontaine MD [address] [place] [address] Surgeon Cardiac Surg 05/25/24 Jockey Room Custodian Relationship Specialty Start Date End Date Unallocated, Qian Prasad MD [address] [facility] [place] [address] PCP - General 11/15/22 Jockey Room Custodian Relationship Specialty Start Date End Date Unallocated, Qian Prasad MD [address] [place] [address] PCP - General 11/15/22 Ny Hurtado, HOP SORTER-CASHIERS SUPERVISOR [address] [place] [address] Referring Physician Family Medicine 08/15/24 Adilene Lozano PA [address] [place] [address] Physician Map Clerk Neurology 08/15/24 Jockey Room Custodian Relationship Specialty Start Date End Date Ny Hurtado NP [address] [facility] [address] [place] [address] PCP - General Family Medicine 08/03/24 Nolberto Thomas [address] [place] [address] Primary Staff Physician Cardiology 07/18/18 Flory Fan MD [address] [place] [address] Primary Staff Physician Cardiology 05/18/22 [place] [address] [place] [address] Process Controls Technician Cardiology 05/24/24 [place] [address] [place] [address] Process Controls Technician Cardiology 05/24/24 Dion Fontaine MD [address] [place] [address] Surgeon Cardiac Surg 05/25/24 Jockey Room Custodian Relationship Specialty Start Date End Date Unallocated, Qian Prasad MD [address] [place] [address] PCP - General 11/15/22 Ny Hurtado, EHSAN-CASHIERS SUPERVISOR [address] [place] [address] Referring Physician Family Medicine 08/15/24 Adilene Lozano PA [address] [place] [address] Physician Map Clerk Neurology 08/15/24 Jockey Room Custodian Relationship Specialty Start Date End Date Unallocated, Noms MD Osmar [address] [place] [address] PCP - General 11/15/22 Ny Hurtado APRN-CASHIERS SUPERVISOR [address] [place] [address] Referring Physician Family Medicine 08/15/24 Adilene Lozano PA [address] [place] [address] Physician Map Clerk Neurology 08/15/24 Jockey Room Custodian Relationship Specialty Start Date End Date Ny Hurtado NP [address] [facility] [address] [place] [address] PCP - General Family Medicine 08/03/24 Nolberto Thomas [address] [place] [address] Primary Staff Physician Cardiology 07/18/18 Flory Fan MD [address] [place] [address] Primary Staff Physician Cardiology 05/18/22 [place] [address] [place] [address] Process Controls Technician Cardiology 05/24/24 [place] [address] [place] [address] Process Controls Technician Cardiology 05/24/24 Dion Fontaine MD [address] [place] [address] Surgeon Cardiac Surg 05/25/24 Jockey Room Custodian Relationship Specialty Start Date End Date Unallocated, Noms MD Osmar [facility] [place] [address] PCP - General 11/15/22 Ny Hurtado APRN-CNP [address] [place] [address] Referring Physician Family Medicine 08/15/24 Adilene Lozano PA [address] [place] [address] Physician Map Clerk Neurology 08/15/24 Jockey Room Custodian Relationship Specialty Start Date End Date Unallocated, Qian Prasad MD [address] [place] [address] PCP - General 11/15/22 Ny Hurtado APRN-CNP [address] [place] [address] Referring Physician Family Medicine 08/15/24 Adilene Lozano PA [address] [place] [address] Physician Map Clerk Neurology 08/15/24 Jockey Room Custodian Relationship Specialty Start Date End Date Ny Hurtado NP [address] [facility] [address] [place] [address] PCP - General Family Medicine 08/03/24 Nolberto Thomas [address] [place] [address] Primary Staff Physician Cardiology 07/18/18 Flory Fan MD [address] [place] [address] Primary Staff Physician Cardiology 05/18/22 [place] [address] [place] [address] Process Controls Technician Cardiology 05/24/24 [place] [address] [place] [address] Process Controls Technician Cardiology 05/24/24 Dion Fontaine MD [address] [place] [address] Surgeon Cardiac Surg 05/25/24 Jockey Room Custodian Relationship Specialty Start Date End Date Ny Hurtado NP [address] [facility] [address] [place] [address] PCP - General Family Medicine 08/03/24 Nolberto Thomas [address] [place] [address] Primary Staff Physician Cardiology 07/18/18 Flory Fan MD [address] [place] [address] Primary Staff Physician Cardiology 05/18/22 [place] [address] [place] [address] Process Controls Technician Cardiology 05/24/24 [place] [address] [place] [address] Process Controls Technician Cardiology 05/24/24 Dion Fontaine MD [address] [place] [address] Surgeon Cardiac Surg 05/25/24 Jockey Room Custodian Relationship Specialty Start Date End Date Ny Hurtado NP [address] [facility] [address] [place] [address] PCP - General Family Medicine 08/03/24 Nolberto Thomas [address] [place] [address] Primary Staff Physician Cardiology 07/18/18 Flory Fan MD [address] [place] [address] Primary Staff Physician Cardiology 05/18/22 [place] [address] [place] [address] Process Controls Technician Cardiology 05/24/24 [place] [address] [place] [address] Process Controls Technician Cardiology 05/24/24 Dion Fontaine MD [address] [place] [address] Surgeon Cardiac Surg 05/25/24 Jockey Room Custodian Relationship Specialty Start Date End Date Ny Hurtado NP [address] [facility] [address] [place] [address] PCP - General Family Medicine 08/03/24 Nolberto Thomas [address] [place] [address] Primary Staff Physician Cardiology 07/18/18 Flory Fan MD [address] [place] [address] Primary Staff Physician Cardiology 05/18/22 [place] [address] [place] [address] Process Controls Technician Cardiology 05/24/24 [place] [address] [place] [address] Process Controls Technician Cardiology 05/24/24 Dion Fontaine MD [address] [facility] [place] [address] Surgeon Cardiac Surg 05/25/24 Jockey Room Custodian Relationship Specialty Start Date End Date Ny Hurtado NP [address] [facility] [address] [place] [address] PCP - General Family Medicine 08/03/24 Nolberto Thomas [address] [place] [address] Primary Staff Physician Cardiology 07/18/18 Flory Fan MD [address] [place], [place] [address] Primary Staff Physician Cardiology 05/18/22 [place] [address] [place] [address] Process Controls Technician Cardiology 05/24/24 [place] [address] [place] [address] Process Controls Technician Cardiology 05/24/24 Dion Fontaine MD [address] [place] [address] Surgeon Cardiac Surg 05/25/24 Jockey Room Custodian Relationship Specialty Start Date End Date Scarlett Gaviria CASHIERS SUPERVISOR [address] [place] [phone] PCP - General Family Medicine 10/15/15 08/02/24 Ny Hurtado NP [address] [facility] [address] [place], [place] [address] PCP - General Family Medicine 08/03/24 Nolberto Thomas [address] [place] [place] [address] Primary Staff Physician Cardiology 07/18/18 Flory Fan MD [address] [place] [address] Primary Staff Physician Cardiology 05/18/22 [place] [address] [place] [address] Process Controls Technician Cardiology 05/24/24 [place] [address] [place] [address] Process Controls Technician Cardiology 05/24/24 Dion Fontaine MD [address]00 [place] [address] Surgeon Cardiac Surg 05/25/24 Jockey Room Custodian Relationship Specialty Start Date End Date Ny Hurtado NP [address] [facility] [address] [place] [address] PCP - General Family Medicine 08/03/24 Nolberto Thomas [address] [place] [address] Primary Staff Physician Cardiology 07/18/18 Flory Fan MD [address] [place] [address] Primary Staff Physician Cardiology 05/18/22 [place] [address] [place] [address] Process Controls Technician Cardiology 05/24/24 [place] [address] [place] [address] Process Controls Technician Cardiology 05/24/24 Dion Fontaine MD [address] [place] [address] Surgeon Cardiac Surg 05/25/24 Jockey Room Custodian Relationship Specialty Start Date End Date Ny Hurtado NP 257 [facility] [address] [place] [address] PCP - General Family Medicine 08/03/24 Nolberto Thomas [address] [place] [address] Primary Staff Physician Cardiology 07/18/18 Flory Fan MD [address] [place] [address] Primary Staff Physician Cardiology 05/18/22 [place] [address] [place] [address] Process Controls Technician Cardiology 05/24/24 [place] [address] [place] [address] Process Controls Technician Cardiology 05/24/24 Dion Fontaine MD [address] [facility] [place] [place] [address] Surgeon Cardiac Surg 05/25/24 Jockey Room Custodian Relationship Specialty Start Date End Date Ny Hurtado NP 257 [facility] [address] [place] [address] PCP - General Family Medicine 08/03/24 Nolberto Thomas [address] [facility] [place] [address] Primary Staff Physician Cardiology 07/18/18 Flory Fan MD [address] [place] [address] Primary Staff Physician Cardiology 05/18/22 [place] [address] [place] [address] Process Controls Technician Cardiology 05/24/24 [place] [address] [place] [address] Process Controls Technician Cardiology 05/24/24 Dion Fontaine MD [address]00 [place] [address] Surgeon Cardiac Surg 05/25/24 Goals (unrecognized section and content) Goals may [...] BE BASED ON THE PRIMARY CLINICAL RECORDS. [employer] provides no warranty or guarantee of the accuracy or completeness of information in this document.
--- OUTSIDE RECORDS SUMMARY | 2024-10-21 09:37 | XMS_ITS | Clinical Summary ---
Author Organization [facility] Address [address] [place] [address] Care Team Providers Care Veterinary Science Teacher Name Role Phone Unallocated, Noms Provider Primary Care Provi shaji Ny Hurtado APRN-BIOINFORMATICIAN Unavailable [phone] Adilene Lozano Unavailable Allergies No known active allergies Medications tolterodine LA (Detrol LA) 4 MG 24 hr capsule Take 4 mg by mouth Daily 10/15/2022 Active rOPINIRole (Requip) 1 MG tablet 10/26/2022 Active omeprazole (PriLOSEC) [address] capsule Take 20 mg by mouth Daily Active montelukast (Singulair) 10 MG tablet Take 10 mg by mouth Daily Active fluticasone (Flonase) 50 MCG/ACT nasal spray 10/24/2022 Active fenofibrate (Triglide) 160 MG tablet Take 160 mg by mouth Daily Active dofetilide (Tikosyn) 500 MCG capsule Take by mouth in the morning and before bedtime. Active atorvastatin (Lipitor) 40 MG tablet Take 40 mg by mouth Daily Active atenolol (Tenormin) 50 MG tablet Take 50 mg by mouth Daily Active allopurinol (Zyloprim) 100 MG tablet Take 100 mg by mouth Daily Active aspirin 81 MG EC tablet Take 81 mg by mouth in the morning. 05/19/2022 Active Fluticasone Furoate-Vilante rol 100-25 MCG/ACT aerosol powder Active furosemide (Lasix) 20 MG tablet Take 20 mg by mouth Daily 11/09/2023 Active pregabalin (Lyrica) 50 MG capsule Take 50 mg by mouth in the morning and 50 mg in the evening. 11/01/2023 Active amLODIPine (Norvasc) 5 MG tablet Take 5 mg by mouth in the morning. 06/29/2024 Active losartan (Cozaar) 50 MG tablet Take 50 mg by mouth Daily 05/19/2024 Active spironolactone (Aldactone) 25 MG tablet Take 25 mg by mouth 1 (one) time 06/29/2024 Active bisoprolol (Zebeta) 5 MG tablet Take 5 mg by mouth 1 (one) time each day at the same time Active amiodarone (Pacerone) 200 MG tablet Take by mouth 1 (one) time each day at the same time 05/22/2024 Active apixaban (Eliquis) 5 MG tablet Take 5 mg by mouth in the morning and 5 mg before bedtime. Active escitalopram (Lexapro) 10 MG tablet Take 10 mg by mouth Daily Active Active Problems Problem Noted Date Diagnosed Date Insomnia, unspecified Restless legs syndrome (RLS) Median neuropathy, right Overview (01/26/2024): He has a severe right median neuropathy and previous history of carpal tunnel surgery which has returned however he is not wanting surgery for this. Back pain Overview (01/26/2024): He is following with Dr. Mcmahon and has had a series of ablations and has had some benefit . At baseline. Brachial neuritis or radiculitis Pain in joint, upper arm Carpal tunnel syndrome Neck pain Overview (01/26/2024): He was receiving acupuncture and seeing a chiropractor. Has had increase in pain since his last visit. He is also seeing a chiropractor. He has since been following with Dr. Mcmahon. He would like to hold off on surgery and is no longer following with Dr. Mcmahon. He is planning to resume swimming and exercising at the gym to help with his mobility. He has responded well to trigger injections in the past. Obstructive sleep apnea Overview (01/26/2024): severe MICHELE and is on the CPAP. Most recent split night study noted that he responded well to a pressure of 33cgW5X. He had increase in daytime fatigue and his hemoglobin was found to be 5. He is being followed for this. Of note, his data download also revealed an AHI of 9.1. He had retitration study done at [facility] yesterday 07/22/22. Radiculopathy, lumbosacral region Resolved Problems Problem Noted Date Diagnosed Date Resolved Date Acute idiopathic gout of left wrist 01/26/2023 01/26/2023 Back pain with right-sided sciatica 01/26/2023 01/26/2023 Flank pain 01/26/2023 01/26/2023 Acute right-sided low back p ain with right-sided sciatica 01/26/2023 01/26/2023 Alcohol use 01/26/2023 01/26/2023 Overview (01/26/2024): h/o completing rehab. Anemia due to blood loss 01/26/2023 Anemia 01/26/2023 01/26/2023 Arthritis 01/26/2023 01/26/2023 BMI 30.0-30.9,adult 01/26/2023 01/27/20 23 BPH with urinary obstruction 01/26/2023 01/26/2023 Colon polyps 01/26/2023 01/26/2023 Chronic obstructive lung disease 01/26/2023 01/26/2023 Cervical spine pain 01/26/2023 01/27/20 23 Cervical radiculopathy due t o degenerative joint disease of spine 01/26/2023 01/26/2023 Deformity of metatarsal 01/26/202301/01 Contracture, left ankle 01/26/202301/01 Perianal wart 01/26/2023 01/26/2023 Erosion of intestine 01/26/2023 023 Elevated PSA 01/26/2023 01/26/2023 Depression 01/26/2023 01/26/2023 Overview (01/26/2024): Patient has been treated for depression with Cymbalta. This was started around his divorce about 1 year ago. He notes that he feels this dose is no longer helping and he is lacking motivation to do things that previously interested him. Stable with Cymbalta. Enlarged prostate 01/26/2023 01/26/2023 Degenerative cervical disc 01/26/2023 0 01/26/2023 Gastroesophageal reflux disease 01/26/2023 01/26/2023 Former smoker 01/26/2023 01/26/2023 Obesity, Class I, BMI 30-34.9 01/03/2018 01/26/2023 Acute on chronic diastolic c ongestive heart failure 10/31/2015 01/26/2023 Osteoarthritis 08/06/2015 01/26/2023 Biceps rupture, proximal 05/29/2015 Encounters Date Type Department Care Team Description 08/29/2024 11:10 AM EDT Procedure Visit [facility] [address] [place] [id number] Haris Molina, DPM FACFAS Onychomycosis (Primary Dx); Pain in left toe(s); Pain in right toe(s) 08/29/2024 Bamboo flowsheet [facility] [address] [place] [address] Haris Molina, DPM FACFAS 08/27/2024 Telephone [facility] [address] [facility] [address] [place] [address] Jessica Pappas LPN Results 08/27/2024 Results Follow-Up [facility] [address] [place] [address] Rossy Agustin MD 08/16/2024 2:15 PM EDT Office Visit [facility] [address] [facility] [address] [place] [address] Rossy Agustin MD Seborrheic keratosis (Primary Dx); Actinic keratosis; Seborrheic keratosis, inflamed; Neoplasm of unspecified behavior of bone, soft tissue, and skin; Lentigines; History of malignant melanoma of skin 08/16/2024 External Result Encounter [facility] Department Unsolicited Rossy Agustin MD 08/16/2024 Bamboo flowsheet [facility] [address] [place] [address] Rossy Agustin MD 08/16/2024 Travel 08/15/2024 2:00 PM EDT Office Visit [facility] [id number] [place] [address] Adilene Lozano PA Neck pain (Primary Dx); Lumbar back pain; MICHELE (obstructive sleep apnea); Depression, unspecified depression type 08/15/2024 Bamboo flowsheet [facility] [address] [place] [phone] Adilene Lozano PA from Last 3 Months Family History Medical History Relation Name Comments Heart disease Father Cancer Mother Mom Relation Name Status Comments Father Mother Mom Social History Tobacco Use Types Packs/Day Years Used Date Smoking Tobacco: Former Cigarettes 1 22 0 [birth year]/15/1964 - 1986 Passive Smoke Exposure: Never Tobacco Cessation:Counseling Given: Not Answered Alcohol Use Standard Drinks/Week Comments Yes 19 [...] not to disclose 2022 3:05 PM EDT Last Filed Vital Signs Vital Sign Reading Time Taken Comments Blood Pressure 138/74 08/29/2024 11:20 AM EDT Pulse 75 08/29/2024 11:20 AM EDT Temperature - - Respiratory Rate - - Oxygen Saturation - - Inhaled Oxygen Concentration - - Weight 98 kg (216 lb) 08/29/2024 11:20 AM EDT Height 172.7 cm (5' 8 ) 08/29/2024 11:20 AM EDT Body Mass Index 32.84 08/29/2024 11:20 AM EDT Plan of Treatment Upcoming Encounters Date Type Department Care Team (Late st Contact Info) Description 11/07/2024 11:00 AM EDT Procedure Visit [facility] [address] [place] [address] Haris Molina, DPM FACFAS [address] [facility] [place] [place] [address] 02/14/2025 1:00 PM EDT Office Visit [facility] [address] [place] [address] Rossy Agustin MD [address] [place] [address] Health Maintenance Due Date Last Done Comments Medicare Annual Wellness (AWV) 1945 Pneumococcal Vaccine: 65+ Years Completed 7, 02/04/2015 Influenza Vaccine Completed 03/08/2024, , 02/25/2022, Additional history exists Procedures Procedure Name Priority Date/Time Associated Diagnosis Comments SKIN / NAIL BIOPSY Routine 08/16/2024 2: 37 PM EDT Neoplasm of unspecified behavior of bone, soft tissue, and skin SKIN / NAIL BIOPSY Routine 08/16/2024 2: 33 PM EDT Neoplasm of unspecified behavior of bone, soft tissue, and skin CRYOTHERAPY SKIN LESION Routine 08/17/19 2:32 PM EDT Seborrheic keratosis, inflamed CRYOTHERAPY SKIN LESION Routine 08/17/19 2:30 PM EDT Actinic keratosis ZZDERMATOPATHOLOGY EXAM UNORDERABLE Routine 08/16/2024 12:00 AM EDT from Last 3 Months Results * Lesion biopsy (08/16/2024 2:37 PM EDT) Narrative Sarah Alford MA - 08/16/2024 2:37 PM EDT Type of biopsy: tangential Informed consent: discussed [...] taken Amount of lidocaine used: 1.0 cc Result [facility] Rossy Agustin MD DERM PROCEDURE ORDERABLES Fin al Result * Lesion biopsy (08/16/2024 2:33 PM EDT) Narrative Sarah Alford MA - 08/16/2024 2:33 PM EDT Type of biopsy: tangential Informed consent: discussed [...] taken Amount of lidocaine used: 1 cc Rossy Agustin MD DERM PROCEDURE ORDERABLES Fin al Result * Cryotherapy, skin lesion (08/16/2024 2:32 PM EDT) Result [facility] Rossy Ronnie Agustin MD DERM PROCEDURE ORDERABLES Fin al Result * Cryotherapy, skin lesion (08/16/2024 2:30 PM EDT) Result [facility] Rossy Trujillo Nikole JARVIS DERM PROCEDURE ORDERABLES Fin al Result * Dermatopathology exam (08/16/2024 12:00 AM EDT) SPECIMEN TYPE ------ SPECIMEN: RT LOWER LEG POST ------ [facility] ICD10 Code L81.4 [facility] PROTOCOL F - FLAT [facility] Final Diagnosis ACTINIC LENTIGO. COMMENT: A well-developed primary melanocytic process is not identified. The case was also reviewed with Dr. Jevon Olivia. [facility] Gross Text [facility] Microscopic Description Microscopic examination performed. [facility] SPECIMEN TYPE ------ SPECIMEN: MID OCCIP SCALP ------ [facility] ICD10 Code D48.5 [facility] PROTOCOL F - FLAT [facility] Final Diagnosis INFLAMED FOLLICLE WITH RUPTURE REACTION AND DERMAL FIBROSIS. COMMENT: There are features indicative of trauma or irritation. [facility] Gross Text [facility] Microscopic Description Microscopic examination performed on one original slide and subsequent multiple deeper sections. [facility] CPT 07716*2 [facility] 08/16/2024 08/21/2024 us Rossy Agustin MD LAB PATHOLOGY ORDERABLES Hanny adrian Result [facility] from Last 3 Months Insurance [employer] Care Teams Veterinary Science Teacher Relationship Specialty Start Date End Date Unallocated, Noms Provider, [address] [place], [place] [id number] PCP - General 11/15/22 Ny Hurtado, EHSAN-BIOINFORMATICIAN [facility] [place] [address] Referring Physician Family Medicine 08/15/24 Adilene Lozano PA [address] [place] [address] Physician Balance Wheel Facer Neurology 08/15/24
--- NOTE | 2024-10-21 10:04 | ED.GENADUL1 ---
HPI HPI - General Adult General Chief complaint: Chest Pain Stated complaint: PAIN L ARM Time Seen by Provider: 10/21/24 09:36 Source: patient Mode of arrival: walk-in Limitations: no limitations History of Present Illness HPI narrative: The patient have a history of A-fib status post cardioversion but he is still in A-fib right now and he is supposed to go for ablation in the future the patient is taking Eliquis at the anticoagulation, patient mentioned that today he had this left axilla and radiate to the left elbow pain that started this morning, patient mentioned that the pain is only there for few seconds and he is not sure if it happened in certain movement He know that yesterday he was working on the roof of the basement and the using his arm above his head multiple hours during yesterday Related Data Home Medications ?Medication ?Instructions ?Recorded ?Confirmed allopurinol 100 mg tablet 100 mg PO DAILY 08/30/23 10/21/24 atenolol 50 mg tablet 50 mg PO DAILY 08/30/23 10/21/24 atorvastatin 40 mg tablet 40 mg PO .qhs 08/30/23 10/21/24 fenofibrate 160 mg tablet 160 mg PO .qd@1200 08/30/23 10/21/24 furosemide 20 mg tablet 20 mg PO DAILY 08/30/23 10/21/24 montelukast 10 mg tablet 10 mg PO .qhs 08/30/23 10/21/24 ropinirole 1 mg tablet 1 mg PO QPM 08/30/23 10/21/24 tolterodine 4 mg capsule,extended 4 mg PO Q24H 08/30/23 10/21/24 release 24 hr fluticasone 100 mcg-salmeterol 50 1 inh inhalation BID 05/03/24 10/21/24 mcg/dose blistr powdr for inhalation (Advair Diskus) omeprazole 40 mg capsule,delayed 20 mg PO DAILY 05/03/24 10/21/24 release albuterol 90 mcg/actuation aerosol 90 mcg inhalation QID PRN 10/21/24 10/21/24 inhaler bronchospasm amiodarone 200 mg tablet 200 mg PO Q24H 10/21/24 10/21/24 amlodipine 5 mg tablet 5 mg PO DAILY 10/21/24 10/21/24 apixaban 5 mg tablet (Eliquis) 5 mg PO BID 10/21/24 10/21/24 bisoprolol fumarate 5 mg tablet 5 mg PO BID 10/21/24 10/21/24 cholecalciferol (vitamin D3) 50 50 mcg PO DAILY 10/21/24 10/21/24 mcg (2,000 unit) capsule coenzyme Q10 100 mg chewable 100 mg PO DAILY 10/21/24 10/21/24 tablet (Chew Q) escitalopram oxalate 10 mg tablet 10 mg PO DAILY 10/21/24 10/21/24 akswqwotcma-[id number]-[id number] C-Mn 500 1 cap PO BID 10/21/24 10/21/24 mg-400 mg capsule hydrocortisone 2.5 % topical cream 1 applic MA QID 10/21/24 10/21/24 with perineal applicator (Proctozone-HC) ketoconazole 2 % topical cream 1 applic topical DAILY 10/21/24 10/21/24 losartan 50 mg tablet 50 mg PO DAILY 10/21/24 10/21/24 magnesium oxide 400 mg PO DAILY 10/21/24 10/21/24 omega-3 acid ethyl esters 1 gram 1 cap PO DAILY 10/21/24 10/21/24 capsule (Lovaza) spironolactone 25 mg tablet 25 mg PO DAILY 10/21/24 10/21/24 Allergies Allergy/AdvReac Type Severity Reaction Status Date / Time No Known Drug Allergies Allergy Verified 10/21/24 09:29 Opioid HPI Opioid Management Most Recent Opioid Data: Last Pain Scale 5 Today, 09:34 Last Pain Intensity 0 05/05/24, 10:56 Last ORT Total Score 0 05/03/24, 20:46 Last ORT Risk Category Low Risk 05/03/24, 20:46 Review of Systems ROS Status of ROS 10 or more systems reviewed and unremarkable except as noted in history and below [facility] Medical History (Updated 10/21/24 @ 12:03 by Apurva Garcia MD) History of cardioversion ?Z92.89 - Personal history of other medical treatment (ICD-10) Congestive heart failure ?I50.9 - Heart failure, unspecified (ICD-10) Left wrist pain ?M25.532 - Pain in left wrist (ICD-10) Dyspnea ?R06.00 - Dyspnea, unspecified (ICD-10) RLS (restless legs syndrome) ?G25.81 - Restless legs syndrome (ICD-10) HTN (hypertension) ?I10 - Essential (primary) hypertension (ICD-10) HLD (hyperlipidemia) ?E78.5 - Hyperlipidemia, unspecified (ICD-10) CKD stage 3a, GFR 45-59 ml/min ?N18.31 - Chronic kidney disease, stage 3a (ICD-10) Prostatic enlargement ?N40.0 - Benign prostatic hyperplasia without lower urinary tract symptoms (ICD-10) Melanoma ?C43.9 - Malignant melanoma of skin, unspecified (ICD-10) Skin cancer ?C44.90 - Unspecified malignant neoplasm of skin, unspecified (ICD-10) Depression ?F32.A - Depression, unspecified (ICD-10) Chronic obstructive pulmonary disease ?J44.9 - Chronic obstructive pulmonary disease, unspecified (ICD-10) GERD (gastroesophageal reflux disease) ?K21.9 - Gastro-esophageal reflux disease without esophagitis (ICD-10) Anemia ?D64.9 - Anemia, unspecified (ICD-10) Presence of Watchman left atrial appendage closure device ?Z95.818 - Presence of other cardiac implants and grafts (ICD-10) Atrial fibrillation ?I48.91 - Unspecified atrial fibrillation (ICD-10) Social History Highest level of school completed/degree received: high school graduate Little interest or pleasure in doing things: not at all Feeling down, depressed, or hopeless: not at all Do you think of yourself as: straight/heterosexual Gender Identity: male Exam Narrative Exam Narrative: Nurses notes and vital signs reviewed and patient is not hypoxic. General: Well-appearing and in no apparent distress. Skin: Warm, dry, no pallor noted. No rash. Head: Normocephalic, atraumatic. Neck: Supple, non-tender. Cardiovascular: Regular Rate and Rhythm without murmur, gallop or rub. Respiratory: No accessory muscle use or respiratory distress. Lungs are clear to auscultation, no wheezing, rales or rhonchi Chest Wall: no tenderness Back: No midline thoracic or lumbar vertebral tenderness. No CVA tenderness Musculoskeletal: normal ROM, no calf or popliteal tenderness, no lower extremity edema/swelling GI: Abdomen is soft, non-distended. Normal bowel sounds. No masses appreciated. No tenderness to palpation. No rebound, guarding, or rigidity noted. Neurological: A&O x4. No cranial nerve dysfunction observed. Constitutional Vital Signs, click to edit/add: Last Vital Signs Temp 99.2 F 10/21/24 09:29 Pulse 68 10/21/24 12:09 Resp 18 10/21/24 12:09 BP 118/77 10/21/24 12:09 Pulse Ox 100 10/21/24 12:09 O2 Del Method Room Air 10/21/24 12:09 Course Vital Signs Vital signs: Vital Signs Temperature 99.2 F 10/21/24 09:29 Pulse Rate 68 10/21/24 09:29 Respiratory Rate 18 10/21/24 09:29 Blood Pressure 134/82 10/21/24 09:29 Pulse Oximetry 95 10/21/24 09:29 Oxygen Delivery Method Room Air 10/21/24 09:29 Temperature 99.2 F 10/21/24 09:29 Pulse Rate 68 10/21/24 12:09 Respiratory Rate 18 10/21/24 12:09 Blood Pressure 118/77 10/21/24 12:09 Pulse Oximetry 100 10/21/24 12:09 Oxygen Delivery Method Room Air 10/21/24 12:09 Medical Decision Making [facility] Narrative Medical decision making narrative: The patient EKG showing A-fib with a heart rate of [address] elevation or depression Patient mentioned that the accepting physician he felt sometimes that he can do the pain and he was doing a lot of work with his upper extremity yesterday above his head that could be a reason for him to have atypical chest pain The patient CBC and chemistry showed no acute pathology and the troponin repeated twice was negative The patient did not have any episode of pain here in the ER and he was provided with Tylenol for pain Patient instructed about monitoring symptoms he still have risk factor and he is to come back to the ER in case of any worsening of symptoms or Recurring symptoms The patient is to follow up with primary care physician in next 2-3 days or to return to the emergency department should any of the signs or symptoms worsen or new symptoms develop. The patient agrees with the following Diagnosis and Treatment plan and the patient will be discharged home. Lab Data Labs: Lab Results 10/21/24 10/21/24 Range/Units 09:55 11:23 WBC 5.0 (4.0-11.0) 10^3/uL RBC 3.33 L (4.70-6.10) 10^6/uL Hgb 10.9 L (14.0-18.0) g/dL Hct 32.8 L (42.0-54.0) % MCV 98.5 H (80.0-94.0) fL MCH 32.7 (25.9-34.0) pg MCHC 33.2 (29.9-35.2) g/dL RDW 14.3 (11.0-15.0) % Plt Count 244 (150-450) 10^3/uL MPV 9.1 L (9.5-13.5) fL Neut % (Auto) 71.2 (43.0-75.0) % Lymph % (Auto) 12.7 L (20.5-60.0) % [place] % (Auto) 10.7 (1.7-12.0) % Eos % (Auto) 4.2 (0.9-7.0) % Baso % (Auto) 0.6 (0.2-2.0) % Neut # (Auto) 3.5 (1.4-6.5) 10^3/uL Lymph # (Auto) 0.6 L (1.2-3.8) 10^3/uL [place] # (Auto) 0.5 (0.3-0.8) 10^3/uL Eos # (Auto) 0.2 (0.0-0.7) 10^3/uL Baso # (Auto) 0.0 (0.0-0.1) 10^3/uL Abs Immat Gran (auto) 0.03 (0.00-0.03) 10^3/uL Imm/Tot Granulo (auto) 0.6 H (0.0-0.5) % PT 11.8 H (9.0-11.6) sec INR 1.13 Sodium 137 (136-145) mmol/L Potassium 4.2 (3.5-5.1) mmol/L Chloride 99 (98-107) mmol/L Carbon Dioxide 28.5 (21.0-32.0) mmol/L Anion Gap 13.7 BUN 16.0 (7.0-18.0) mg/dL Creatinine 1.54 H (0.70-1.30) mg/dL Est GFR ( Amer) 53 L (>=60 mL/min/1.73m^2) Est GFR (Non-Af Amer) 44 L (>=60 mL/min/1.73m^2) BUN/Creatinine Ratio 10.4 Glucose 93 (74-106) mg/dL Calcium 9.1 (8.5-10.1) mg/dL Total Bilirubin 0.5 (0.2-1.0) mg/dL AST 24 (15-37) U/L ALT 23 (16-63) U/L Alkaline Phosphatase 42 L (46-116) U/L Troponin I High Sens 11.7 10.6 (4.0-76.1) pg/mL Total Protein 6.7 (6.4-8.2) g/dL Albumin 3.4 (3.4-5.0) g/dL Globulin 3.3 g/dL Albumin/Globulin Ratio 1.0 Discharge Plan Discharge Chief Complaint: Chest Pain Clinical Impression: Atypical chest pain, Left shoulder pain Patient Disposition: Home, Self-Care Time of Disposition Decision: 12:02 Condition: Good Mode of Transportation: Private Vehicle Prescriptions / Home Meds: No Action fluticasone propion-salmeterol [Advair Diskus] 100-50 mcg/dose blister with device 1 inh inhalation BID omeprazole 40 mg capsule,delayed release(DR/EC) 20 mg PO DAILY [id number] C-Mn 500-400 mg capsule 1 cap PO BID ketoconazole 2 % cream 1 applic topical DAILY losartan 50 mg tablet 50 mg PO DAILY magnesium oxide 400 mg magnesium capsule 400 mg PO DAILY omega-3 acid ethyl esters [Lovaza] 1 gram capsule 1 cap PO DAILY hydrocortisone [Proctozone-HC] 2.5 % cream with perineal applicator 1 applic MA QID spironolactone 25 mg tablet 25 mg PO DAILY cholecalciferol (vitamin D3) 50 mcg (2,000 unit) capsule 50 mcg PO DAILY amlodipine 5 mg tablet 5 mg PO DAILY Eliquis 5 mg tablet 5 mg PO BID amiodarone 200 mg tablet 200 mg PO Q24H bisoprolol fumarate 5 mg tablet 5 mg PO BID Chew Q 100 mg tablet,chewable 100 mg PO DAILY escitalopram oxalate 10 mg tablet 10 mg PO DAILY albuterol 90 mcg/actuation aerosol 90 mcg inhalation QID PRN (Reason: bronchospasm) allopurinol 100 mg tablet 100 mg PO DAILY atenolol 50 mg tablet 50 mg PO DAILY atorvastatin 40 mg tablet 40 mg PO .qhs fenofibrate 160 mg tablet 160 mg PO .qd@1200 furosemide 20 mg tablet 20 mg PO DAILY montelukast 10 mg tablet 10 mg PO .qhs ropinirole 1 mg tablet 1 mg PO QPM Patient Comments: one to two tablets tolterodine 4 mg capsule,extended release 24hr 4 mg PO Q24H Print Language: Cuban Instructions: Chest Pain (ED), Shoulder Pain (ED) Referrals: YOLA BLUM CNP [Primary Care Provider] - 1 week Discharge Date/Time: 10/21/24 12:17
[2024-10-21 10:05] LABS: Basophils Percent Auto 0.6 % (0.2-2.0); Eosinophils Absolute Auto 0.2 10^3/uL (0.0-0.7); Eosinophils Percent Auto 4.2 % (0.9-7.0); Hematocrit 32.8 % (42.0-54.0); Hemoglobin 10.9 g/dL (14.0-18.0); Immature Granulocytes Abs Auto 0.03 10^3/uL (0.00-0.03); Immature Granulocytes Pct Auto 0.6 % (0.0-0.5); Lymphocytes Absolute Auto 0.6 10^3/uL (1.2-3.8); Lymphocytes Percent Auto 12.7 % (20.5-60.0); Mean Corpuscular HGB Conc 33.2 g/dL (29.9-35.2); Mean Corpuscular Hemoglobin 32.7 pg (25.9-34.0); Mean Corpuscular Volume 98.5 fL (80.0-94.0); Mean Platelet Volume 9.1 fL (9.5-13.5); Monocytes Absolute Auto 0.5 10^3/uL (0.3-0.8); Monocytes Percent Auto 10.7 % (1.7-12.0); Neutrophils Absolute Auto 3.5 10^3/uL (1.4-6.5); Neutrophils Percent Auto 71.2 % (43.0-75.0); Platelet Count 244 10^3/uL (150-450); Red Blood Count 3.33 10^6/uL (4.70-6.10); Red Cell Distribution Width 14.3 % (11.0-15.0)
[2024-10-21 10:18] LABS: INR 1.13; Prothrombin Time 11.8 sec (9.0-11.6)
[2024-10-21 10:28] LABS: Alanine Aminotransferase 23 U/L (16-63); Albumin Level 3.4 g/dL (3.4-5.0); Alkaline Phosphatase 42 U/L (46-116); Anion Gap 13.7; Aspartate Amino Transferase 24 U/L (15-37); BUN Creatinine Ratio 10.4; Bilirubin Total 0.5 mg/dL (0.2-1.0); Calcium 9.1 mg/dL (8.5-10.1); Carbon Dioxide 28.5 mmol/L (21.0-32.0); Chloride 99 mmol/L (98-107); Estimated GFR (African America 53 (>=60 mL/min/1.73m^2); Estimated GFR (Non-African Ame 44 (>=60 mL/min/1.73m^2); Globulin 3.3 g/dL; Glucose 93 mg/dL (74-106); Potassium 4.2 mmol/L (3.5-5.1); Sodium 137 mmol/L (136-145); Total Protein 6.7 g/dL (6.4-8.2); Troponin I High Sensitivity 11.7 pg/mL (4.0-76.1)
[2024-10-21] MEDS: ACETAMINOPHEN 325 MG TABLET 650 MG PO (10:56)
[2024-10-21 11:45] LABS: Troponin I High Sensitivity 10.6 pg/mL (4.0-76.1)
== END 2024-10-21 12:17 | disposition home or self-care (01) ==
PROVIDERS: Emergency Provider Emergency Medicine
DX: R07.89 Other chest pain (principal); M25.512 Pain in left shoulder; I48.91 Unspecified atrial fibrillation; Z79.01 Long term (current) use of anticoagulants
CPT/HCPCS: 36415; 71045; 80053; 84484; 85025; 85610; 93005; 99285